=== PATIENT | male | born 1955 | race African-American/Black ===

== ENCOUNTER 2016-03-24 05:46 | Emergency (ER) | payer OTHER, MEDICAID ==
[~2016-03-24] VITALS: Ht 172.7 cm; Wt 152.0 kg
[~2016-03-24 05:46] MED LIST: ASPI-378 PO; CITA20TA3 PO; CLON05T PO; CLOP75TA41 PO; DOCU-94 PO; ENAL20TA70 PO; FUR40T PO; GAB400C PO; ISOS30TA4 PO; MEC25T PO; NITRSPR10 SL; NOR5T PO; PAR20T PO; POT10T PO; PRAV20TA3 PO; Pantoprazole Sodium Sesquihydr PO; TRAZ100T2 PO
[2016-03-24 06:32] VITALS: BP 146/94
[2016-03-24] MEDS ORDERED: NITROGLYCERIN 0.4 MG SL TAB SL ONE (06:45)
[2016-03-24] MEDS ORDERED: LORazepam 2MG/ML-1ML VIAL IV ONE (06:45)
[2016-03-24] MEDS ORDERED: ASPirin 81 mg TAB PO ONE (06:45)
[2016-03-24] MEDS ORDERED: LABETALOL HCL 5 MG/ML 4ML SYRINGE IV ONE (06:45)
[2016-03-24 07:11] LABS: Basophils # (auto) 0 uL; Basophils % (auto) 0.4 % (0.0-2.0); Eosinophils # (auto) 0.2 uL; Eosinophils % (auto) 2.1 % (0.0-7.0); Hematocrit 40.3 % (41.0-53.0); Hemoglobin 12.5 g/dL (13.5-17.5); Lymphocytes # (auto) 2.2 uL; Lymphocytes % (auto) 28.5 % (10.0-50.0); Mean Corpuscular Hemoglobin 27.6 pg (28.0-32.0); Mean Platelet Volume 10.3 fL (7.4-10.4); Monocytes # (auto) 0.6 uL; Monocytes % (auto) 7.6 % (0.0-12.0); Neutrophils # (auto) 4.6 uL; Neutrophils % (auto) 61.4 % (37.0-80.0); Platelet Count (auto) 183 10^3/uL (140-450); White Blood Cell 7.6 10^3/uL (4.4-10.8)
[2016-03-24 07:17] LABS: Albumin 3.3 g/dL (3.4-5.0); BUN/Creatinine Ratio 16.1; Calcium 8.7 mg/dL (8.5-10.1); Magnesium 2.4 mg/dL (1.6-2.6); Potassium 3.8 mmol/L (3.5-5.1)
[2016-03-24 07:24] LABS: Bilirubin, Total 0.3 mg/dL (0.2-1.0); Total Protein 7.5 g/dL (6.4-8.2)
[2016-03-24 07:41] LABS: B-Type Natriuretic Peptide 35.92 pg/mL (0-100)
[2016-03-24] MEDS ORDERED: HYDROcodone-ACET 5/325MG TAB PO ONE (07:45)
[2016-03-24 07:53] LABS: Temperature: 22.9 C (20.0-25.0)
== END 2016-03-24 09:41 | disposition left against medical advice (07) ==
LOC: ER 05:49
DX: R07.2 Precordial pain (principal); M54.9 Dorsalgia, unspecified; Z88.6 Allergy status to analgesic agent; Z79.899 Other long term (current) drug therapy; Z79.82 Long term (current) use of aspirin; F41.9 Anxiety disorder, unspecified; J45.909 Unspecified asthma, uncomplicated; J44.9 Chronic obstructive pulmonary disease, unspecified; Z86.73 Personal history of transient ischemic attack (TIA), and cerebral infarction without residual deficits; K21.9 Gastro-esophageal reflux disease without esophagitis; E78.5 Hyperlipidemia, unspecified; I25.2 Old myocardial infarction; I13.0 Hypertensive heart and chronic kidney disease with heart failure and stage 1 through stage 4 chronic kidney disease, or unspecified chronic kidney disease; N18.9 Chronic kidney disease, unspecified; I50.9 Heart failure, unspecified; E11.22 Type 2 diabetes mellitus with diabetic chronic kidney disease; F17.210 Nicotine dependence, cigarettes, uncomplicated
CPT/HCPCS: 36415; 71020; 72100; 80053; 83735; 83880; 84484; 85025; 93005; 94761; 96374; 99285; J2060

== ENCOUNTER 2016-05-07 11:06 | Observation (INO) | payer OTHER, MEDICAID ==
[~2016-05-07] VITALS: Ht 172.7 cm; Wt 154.2 kg
[2016-05-07 12:00] LABS: Basophils # (auto) 0 uL; Basophils % (auto) 0.2 % (0.0-2.0); Eosinophils # (auto) 0.1 uL; Eosinophils % (auto) 0.6 % (0.0-7.0); Hematocrit 41.5 % (41.0-53.0); Hemoglobin 13.3 g/dL (13.5-17.5); Lymphocytes # (auto) 1.7 uL; Lymphocytes % (auto) 18.2 % (10.0-50.0); Mean Corpuscular Volume 90.4 fL (80.0-100.0); Monocytes # (auto) 0.5 uL; Monocytes % (auto) 5.1 % (0.0-12.0); Neutrophils % (auto) 75.9 % (37.0-80.0); Platelet Count (auto) 214 10^3/uL (140-450); Red Cell Distribution Width 15.2 % (11.6-16.0); White Blood Cell 9.3 10^3/uL (4.4-10.8)
[2016-05-07 12:18] LABS: Partial Thromboplastin Time 25.6 sec (22.64-33.71); Prothrombin Time 10.3 sec (9.37-12.3)
[2016-05-07 12:24] LABS: Albumin 3.3 g/dL (3.4-5.0); Alkaline Phosphatase 64 U/L (45-117); Anion Gap 5 (5-15); Aspartate Aminotransferase 22 U/L (15-37); BUN/Creatinine Ratio 15.4; Bilirubin, Total 0.3 mg/dL (0.2-1.0); Blood Urea Nitrogen 16 mg/dL (7-18); Calcium 8.7 mg/dL (8.5-10.1); Carbon Dioxide 31 mmol/L (21-32); Chloride 109 mmol/L (98-107); GFR African American 93 mL/min; GFR Non-African American 77 mL/min; Glucose 99 mg/dL (74-106); Potassium 4.4 mmol/L (3.5-5.1); Sodium 145 mmol/L (136-145); Total Protein 7.8 g/dL (6.4-8.2)
[2016-05-08] MEDS ORDERED: MORPHINE SULFATE 4 MG/ML SYRG IV ONE (06:45)
[2016-05-08] MEDS ORDERED: ONDANSETRON HCL 4 MG/2 ML VIAL IV ONE (06:45)
[2016-05-08 08:28] VITALS: BP 104/32
== END 2016-05-08 07:56 | disposition home or self-care (01) | DRG 313 ==
LOC: ER 11:16 → OVERFLOW 11:17 → UNDOADMOB 11:17 → OVERFLOW 05-08 07:27 → UNDODISOB 05-08 07:56 → ER 05-08 07:56
PROVIDERS: ADMIT Emergency Medicine; ATTEND Emergency Medicine
DX: R07.89 Other chest pain (principal); I11.0 Hypertensive heart disease with heart failure; E11.9 Type 2 diabetes mellitus without complications; I50.9 Heart failure, unspecified; J44.9 Chronic obstructive pulmonary disease, unspecified; K21.9 Gastro-esophageal reflux disease without esophagitis; Z86.73 Personal history of transient ischemic attack (TIA), and cerebral infarction without residual deficits; Z83.3 Family history of diabetes mellitus; Z82.49 Family history of ischemic heart disease and other diseases of the circulatory system; F17.210 Nicotine dependence, cigarettes, uncomplicated
CPT/HCPCS: 36415; 71020; 80053; 84484; 85025; 85610; 85730; 93005; 96374; 96375; 99285; G0378; J2270; J2405

== ENCOUNTER 2016-08-06 14:07 | Emergency (ER) | payer OTHER, MEDICAID ==
[~2016-08-06] VITALS: Ht 170.2 cm; Wt 149.7 kg
[~2016-08-06 14:07] MED LIST changes: +HYDR-4663 PO; +NITR1SPR SL; -NITRSPR10 SL; -NOR5T PO
[2016-08-06] MEDS ORDERED: HYDROmorphone HCL 2 MG/ML VL IV ONE (14:45)
[2016-08-06] MEDS ORDERED: ONDANSETRON HCL 4 MG/2 ML VIAL IV ONE (14:45)
[2016-08-06 15:25] LABS: Basophils # (auto) 0 uL; Basophils % (auto) 0.3 % (0.0-2.0); CONDITION AutoValidated; Eosinophils # (auto) 0.1 uL; Eosinophils % (auto) 0.9 % (0.0-7.0); Hematocrit 43.3 % (41.0-53.0); Lymphocytes # (auto) 2.7 uL; Lymphocytes % (auto) 27.8 % (10.0-50.0); Mean Corpuscular Hemoglobin 29.4 pg (28.0-32.0); Mean Corpuscular Hgb Conc. 32.3 g/dL (32.0-36.0); Mean Corpuscular Volume 90.9 fL (80.0-100.0); Monocytes # (auto) 0.7 uL; Monocytes % (auto) 6.8 % (0.0-12.0); Neutrophils # (auto) 6.2 uL; Neutrophils % (auto) 64.2 % (37.0-80.0); Platelet Count (auto) 192 10^3/uL (140-450); Red Cell Distribution Width 14.3 % (11.6-16.0); White Blood Cell 9.6 10^3/uL (4.4-10.8)
[2016-08-06 15:46] LABS: Albumin 3.4 g/dL (3.4-5.0); BUN/Creatinine Ratio 19.2; Bilirubin, Total 0.3 mg/dL (0.2-1.0); Calcium 8.8 mg/dL (8.5-10.1); Magnesium 2.4 mg/dL (1.6-2.6); Potassium 3.9 mmol/L (3.5-5.1); Total Protein 7.7 g/dL (6.4-8.2)
[2016-08-06 15:55] LABS: B-Type Natriuretic Peptide 38.62 pg/mL (0-100)
[2016-08-06 15:59] LABS: Temperature: 23.7 C (20.0-25.0)
[2016-08-06 18:05] VITALS: BP 193/105
== END 2016-08-06 19:22 | disposition home or self-care (01) ==
LOC: EDBD 14:07 → EDUNIT# 14:07 → ER 14:16
DX: R07.89 Other chest pain (principal); I20.9 Angina pectoris, unspecified; J44.9 Chronic obstructive pulmonary disease, unspecified; I13.0 Hypertensive heart and chronic kidney disease with heart failure and stage 1 through stage 4 chronic kidney disease, or unspecified chronic kidney disease; E11.22 Type 2 diabetes mellitus with diabetic chronic kidney disease; N18.9 Chronic kidney disease, unspecified; I50.9 Heart failure, unspecified; K21.9 Gastro-esophageal reflux disease without esophagitis; F17.210 Nicotine dependence, cigarettes, uncomplicated; E78.5 Hyperlipidemia, unspecified; Z90.49 Acquired absence of other specified parts of digestive tract; Z90.89 Acquired absence of other organs; Z87.440 Personal history of urinary (tract) infections; Z95.1 Presence of aortocoronary bypass graft; Z88.8 Allergy status to other drugs, medicaments and biological substances; Z79.899 Other long term (current) drug therapy
CPT/HCPCS: 36415; 71010; 80053; 83735; 83880; 84484; 85025; 93005; 94761; 96374; 96375; 99285; J1170; J2405

== ENCOUNTER 2016-09-16 09:19 | Observation (INO) | payer OTHER, MEDICAID ==
[~2016-09-16] VITALS: Ht 172.7 cm; Wt 147.0 kg
[2016-09-16] MEDS ORDERED: SODIUM CHLORIDE 0.9% 1,000 ML IV ONE (09:41)
[2016-09-16] MEDS ORDERED: MORPHINE SULFATE 4 MG/ML SYRG IV ONE (09:45)
[2016-09-16 10:11] LABS: Basophils # (auto) 0.1 uL; Basophils % (auto) 1.4 % (0.0-2.0); CONDITION Y; Eosinophils # (auto) 0.2 uL; Eosinophils % (auto) 2.1 % (0.0-7.0); Hematocrit 41.8 % (41.0-53.0); Hemoglobin 13.6 g/dL (13.5-17.5); Lymphocytes # (auto) 2.3 uL; Lymphocytes % (auto) 29.3 % (10.0-50.0); Mean Corpuscular Hemoglobin 29.5 pg (28.0-32.0); Mean Corpuscular Hgb Conc. 32.5 g/dL (32.0-36.0); Mean Corpuscular Volume 90.8 fL (80.0-100.0); Mean Platelet Volume 10.7 fL (7.4-10.4); Monocytes # (auto) 0.3 uL; Monocytes % (auto) 3.6 % (0.0-12.0); Neutrophils % (auto) 63.6 % (37.0-80.0); Platelet Count (auto) 204 10^3/uL (140-450); Red Cell Distribution Width 14.3 % (11.6-16.0); SUSPECT SEE PRINTOUT; White Blood Cell 7.9 10^3/uL (4.4-10.8)
[2016-09-16 10:28] LABS: INR 0.94 (0.9-1.15); Partial Thromboplastin Time 23.8 sec (22.64-33.71); Prothrombin Time 10.2 sec (9.37-12.3)
[2016-09-16 10:35] LABS: Alkaline Phosphatase 69 U/L (45-117); Anion Gap 7 (5-15); Aspartate Aminotransferase 12 U/L (15-37); BUN/Creatinine Ratio 10.8; Bilirubin, Total 0.2 mg/dL (0.2-1.0); Blood Urea Nitrogen 12 mg/dL (7-18); Calcium 8.5 mg/dL (8.5-10.1); Carbon Dioxide 24 mmol/L (21-32); Chloride 110 mmol/L (98-107); GFR African American 86 mL/min; GFR Non-African American 71 mL/min; Glucose 123 mg/dL (74-106); Potassium 4.1 mmol/L (3.5-5.1); Sodium 141 mmol/L (136-145); Total Protein 7.1 g/dL (6.4-8.2)
[2016-09-16 10:37] LABS: Giant Platelets Few; Platelet Estimate Adequate
[2016-09-16] MEDS ORDERED: MORPHINE SULF INJ 2 MG/ML SYRINGE 1ML IV ONE (14:15)
[2016-09-16 15:45] VITALS: BP 153/71
== END 2016-09-16 16:02 | disposition home or self-care (01) | DRG 303 ==
LOC: ER 09:19 → EDBD 09:19 → OVERFLOW 09:43 → ER 16:02
PROVIDERS: ADMIT Emergency Medicine; ATTEND Emergency Medicine
DX: I25.119 Atherosclerotic heart disease of native coronary artery with unspecified angina pectoris (principal); K21.9 Gastro-esophageal reflux disease without esophagitis; J44.9 Chronic obstructive pulmonary disease, unspecified; I50.9 Heart failure, unspecified; I11.0 Hypertensive heart disease with heart failure; E11.9 Type 2 diabetes mellitus without complications; F41.9 Anxiety disorder, unspecified; F32.9 Major depressive disorder, single episode, unspecified; F17.210 Nicotine dependence, cigarettes, uncomplicated; I25.2 Old myocardial infarction; E66.01 Morbid (severe) obesity due to excess calories; E78.5 Hyperlipidemia, unspecified; Z86.73 Personal history of transient ischemic attack (TIA), and cerebral infarction without residual deficits; Z79.899 Other long term (current) drug therapy; Z79.82 Long term (current) use of aspirin; Z87.440 Personal history of urinary (tract) infections; Z90.49 Acquired absence of other specified parts of digestive tract; Z98.61 Coronary angioplasty status; Z83.3 Family history of diabetes mellitus; Z82.49 Family history of ischemic heart disease and other diseases of the circulatory system
CPT/HCPCS: 36415; 71010; 80053; 83735; 84443; 84484; 85025; 85610; 85730; 93005; 96374; 96376; 99285; G0378; J2270; J7030

== ENCOUNTER 2016-10-01 13:40 | Emergency (ER) | payer OTHER, MEDICAID ==
[~2016-10-01] VITALS: Ht 172.7 cm; Wt 151.5 kg
[2016-10-01 14:08] LABS: Basophils # (auto) 0 uL; Basophils % (auto) 0.2 % (0.0-2.0); CONDITION Y; Eosinophils # (auto) 0 uL; Eosinophils % (auto) 0.6 % (0.0-7.0); Hematocrit 41.7 % (41.0-53.0); Hemoglobin 13.7 g/dL (13.5-17.5); Lymphocytes # (auto) 2.1 uL; Lymphocytes % (auto) 25.8 % (10.0-50.0); Mean Corpuscular Hgb Conc. 32.9 g/dL (32.0-36.0); Mean Corpuscular Volume 91.1 fL (80.0-100.0); Monocytes # (auto) 0.6 uL; Monocytes % (auto) 7.5 % (0.0-12.0); Neutrophils # (auto) 5.5 uL; Neutrophils % (auto) 65.9 % (37.0-80.0); Platelet Count (auto) 190 10^3/uL (140-450); Red Cell Distribution Width 14.8 % (11.6-16.0); White Blood Cell 8.3 10^3/uL (4.4-10.8)
[2016-10-01 14:33] LABS: Albumin 3.2 g/dL (3.4-5.0); Anion Gap 8 (5-15); Aspartate Aminotransferase 12 U/L (15-37); BUN/Creatinine Ratio 13.6; Blood Urea Nitrogen 17 mg/dL (7-18); Calcium 8.5 mg/dL (8.5-10.1); Carbon Dioxide 23 mmol/L (21-32); Chloride 114 mmol/L (98-107); GFR African American 75 mL/min; GFR Non-African American 62 mL/min; Glucose 104 mg/dL (74-106); Magnesium 2.2 mg/dL (1.6-2.6); Potassium 3.8 mmol/L (3.5-5.1); Sodium 145 mmol/L (136-145)
[2016-10-01 14:38] LABS: Alkaline Phosphatase 60 U/L (45-117); Bilirubin, Total 0.4 mg/dL (0.2-1.0); Total Protein 7.1 g/dL (6.4-8.2)
[2016-10-01 16:14] VITALS: BP 118/74
[2016-10-01] MEDS ORDERED: SODIUM CHLORIDE 0.9% 1,000 ML IV ONE (17:02)
[2016-10-01] MEDS ORDERED: PROMETHAZINE HCL 25 MG/ML 1ML IV PRN (17:15)
[2016-10-01] MEDS ORDERED: NALBUPHINE HCL 10 MG/1ml INJECTION IV ONE (17:15)
[2016-10-01 17:51] LABS: Magnesium 2.3 mg/dL (1.6-2.6)
== END 2016-10-01 20:02 | disposition home or self-care (01) ==
LOC: ER 13:40
DX: I25.119 Atherosclerotic heart disease of native coronary artery with unspecified angina pectoris (principal); R07.9 Chest pain, unspecified; I10 Essential (primary) hypertension; E44.1 Mild protein-calorie malnutrition; Z68.43 Body mass index [BMI] 50.0-59.9, adult; I25.2 Old myocardial infarction; Z86.73 Personal history of transient ischemic attack (TIA), and cerebral infarction without residual deficits; E11.22 Type 2 diabetes mellitus with diabetic chronic kidney disease; I13.0 Hypertensive heart and chronic kidney disease with heart failure and stage 1 through stage 4 chronic kidney disease, or unspecified chronic kidney disease; I50.9 Heart failure, unspecified; N18.9 Chronic kidney disease, unspecified; F17.210 Nicotine dependence, cigarettes, uncomplicated; K21.9 Gastro-esophageal reflux disease without esophagitis; E78.5 Hyperlipidemia, unspecified; Z87.440 Personal history of urinary (tract) infections; Z90.49 Acquired absence of other specified parts of digestive tract
CPT/HCPCS: 36415; 71020; 74176; 80053; 83690; 83735; 84443; 84484; 85025; 93005; 94761; 96361; 96374; 96375; 99285; J2300; J2550; J7030

== ENCOUNTER 2017-01-28 19:52 | Emergency (ER) | payer OTHER, MEDICAID ==
[~2017-01-28] VITALS: Ht 172.7 cm; Wt 149.7 kg
[~2017-01-28 19:52] MED LIST changes: -HYDR-4663 PO; +HYDR-4683 PO
[2017-01-28 20:36] LABS: Basophils # (auto) 0 uL; Basophils % (auto) 0.5 % (0.0-2.0); Eosinophils # (auto) 0.2 uL; Eosinophils % (auto) 2.2 % (0.0-7.0); Hematocrit 43.7 % (41.0-53.0); Hemoglobin 14.3 g/dL (13.5-17.5); Lymphocytes # (auto) 2.1 uL; Lymphocytes % (auto) 26.4 % (10.0-50.0); Mean Corpuscular Hemoglobin 29.5 pg (28.0-32.0); Mean Corpuscular Hgb Conc. 32.6 g/dL (32.0-36.0); Mean Corpuscular Volume 90.5 fL (80.0-100.0); Mean Platelet Volume 9.2 fL (6.9-10.8); Monocytes # (auto) 0.6 uL; Monocytes % (auto) 7.4 % (0.0-12.0); Neutrophils % (auto) 63.5 % (37.0-80.0); Nucleated Red Blood Cells % 0.1 %; Platelet Count (auto) 195 10^3/uL (140-450); Red Cell Distribution Width 14.6 % (11.8-14.3); White Blood Cell 7.8 10^3/uL (4.4-10.8)
[2017-01-28 20:51] LABS: Albumin 3.2 g/dL (3.4-5.0); Anion Gap 7 (5-15); Aspartate Aminotransferase 15 U/L (15-37); BUN/Creatinine Ratio 20.9; Blood Urea Nitrogen 19 mg/dL (7-18); Calcium 8.9 mg/dL (8.5-10.1); Carbon Dioxide 23 mmol/L (21-32); Chloride 108 mmol/L (98-107); GFR African American 108 mL/min; GFR Non-African American 89 mL/min; Glucose 92 mg/dL (74-106); Magnesium 2.4 mg/dL (1.6-2.6); Potassium 3.9 mmol/L (3.5-5.1); Sodium 138 mmol/L (136-145)
[2017-01-28 20:56] LABS: Alkaline Phosphatase 64 U/L (45-117); Bilirubin, Total 0.3 mg/dL (0.2-1.0); Total Protein 7.6 g/dL (6.4-8.2)
[2017-01-28] MEDS ORDERED: cloNIDine HCL 0.1 MG TAB PO ONE (21:15)
[2017-01-28] MEDS ORDERED: LORazepam 0.5 MG TAB PO ONE (21:15)
[2017-01-28 22:02] LABS: B-Type Natriuretic Peptide 30.64 pg/mL (0-100)
[2017-01-28] MEDS ORDERED: NALBUPHINE HCL 10 MG/1ml INJECTION IV ONE (22:15)
[2017-01-28] MEDS ORDERED: FUROSEMIDE 40 MG/4 ML VIAL IV ONE (23:45)
[2017-01-29 03:42] VITALS: BP 162/90
== END 2017-01-29 03:44 | disposition home or self-care (01) ==
LOC: ER 19:52 → EDBD 19:52 → ER 01-29 03:43
DX: R06.02 Shortness of breath (principal); I25.810 Atherosclerosis of coronary artery bypass graft(s) without angina pectoris; E11.65 Type 2 diabetes mellitus with hyperglycemia; I13.0 Hypertensive heart and chronic kidney disease with heart failure and stage 1 through stage 4 chronic kidney disease, or unspecified chronic kidney disease; E11.22 Type 2 diabetes mellitus with diabetic chronic kidney disease; N18.9 Chronic kidney disease, unspecified; I50.9 Heart failure, unspecified; J44.9 Chronic obstructive pulmonary disease, unspecified; K21.9 Gastro-esophageal reflux disease without esophagitis; E78.5 Hyperlipidemia, unspecified; E78.00 Pure hypercholesterolemia, unspecified; G89.29 Other chronic pain; M54.9 Dorsalgia, unspecified; I25.2 Old myocardial infarction; F17.210 Nicotine dependence, cigarettes, uncomplicated; Z79.82 Long term (current) use of aspirin; Z86.73 Personal history of transient ischemic attack (TIA), and cerebral infarction without residual deficits; Z82.49 Family history of ischemic heart disease and other diseases of the circulatory system; Z83.3 Family history of diabetes mellitus
CPT/HCPCS: 36415; 70450; 71010; 71250; 80053; 83735; 83880; 84484; 85025; 93005; 96374; 96375; 99285; J1940; J2300

== ENCOUNTER 2017-03-21 11:06 | Emergency (ER) | payer OTHER, MEDICAID ==
[~2017-03-21] VITALS: Ht 172.7 cm; Wt 149.7 kg
[2017-03-21 11:14] VITALS: BP 159/82
[2017-03-21 12:35] LABS: Albumin 3.5 g/dL (3.4-5.0); BUN/Creatinine Ratio 14.7; Bilirubin, Total 0.5 mg/dL (0.2-1.0); Calcium 8.8 mg/dL (8.5-10.1); Magnesium 2.5 mg/dL (1.6-2.6); Potassium 3.6 mmol/L (3.5-5.1); Total Protein 8.2 g/dL (6.4-8.2)
[2017-03-21 13:58] LABS: Basophils # (auto) 0.1 uL; Basophils % (auto) 0.9 % (0.0-2.0); Eosinophils # (auto) 0.1 uL; Eosinophils % (auto) 0.5 % (0.0-7.0); Hematocrit 45.3 % (41.0-53.0); Hemoglobin 14.7 g/dL (13.5-17.5); Lymphocytes # (auto) 2.8 uL; Lymphocytes % (auto) 27.3 % (10.0-50.0); Mean Corpuscular Hemoglobin 28.9 pg (28.0-32.0); Mean Corpuscular Hgb Conc. 32.6 g/dL (32.0-36.0); Mean Corpuscular Volume 88.7 fL (80.0-100.0); Monocytes # (auto) 0.6 uL; Monocytes % (auto) 5.7 % (0.0-12.0); Neutrophils # (auto) 6.6 uL; Neutrophils % (auto) 65.6 % (37.0-80.0); Platelet Count (auto) 214 10^3/uL (140-450); Red Blood Cells 5.11 10^6/uL (4.5-5.90); Red Cell Distribution Width 14.2 % (11.8-14.3); White Blood Cell 10.1 10^3/uL (4.4-10.8)
== END 2017-03-21 14:02 | disposition left against medical advice (07) ==
LOC: EDBD 11:06 → ER 11:06
DX: R07.89 Other chest pain (principal); Z53.21 Procedure and treatment not carried out due to patient leaving prior to being seen by health care provider
CPT/HCPCS: 36415; 71046; 80053; 83735; 84484; 85025; 93005

== ENCOUNTER 2017-10-03 02:59 | Inpatient (IN) | payer OTHER ==
[~2017-10-03] VITALS: Ht 172.7 cm; Wt 143.6 kg
[~2017-10-03 02:59] MED LIST changes: +ASPI-231 PO; +CLOP75TA28 PO; +GABA-339 PO; +ISOS20TA49 PO; +TRAZ150T79 PO
[2017-10-03] MEDS ORDERED: FURO40TA4 PO (03:57)
[2017-10-03] MEDS ORDERED: ATOR1TAB PO (03:57)
[2017-10-03] MEDS ORDERED: HYDR-531 PO (03:57)
[2017-10-03] MEDS ORDERED: ISOS30TA4 PO (03:57)
[2017-10-03] MEDS ORDERED: BUPR-81 PO (03:57)
[2017-10-03] MEDS ORDERED: NITR0.4S29 SL (03:57)
[2017-10-03] MEDS ORDERED: CLOP75TA41 PO (03:57)
[2017-10-03] MEDS ORDERED: ENAL20TA70 PO (03:57)
[2017-10-03] MEDS ORDERED: METO25TA62 PO (03:57)
[2017-10-03] MEDS ORDERED: ASPI325T4 PO (03:57)
[2017-10-03] MEDS ORDERED: GABA800T97 PO (03:57)
[2017-10-03] MEDS ORDERED: TRAZ100T2 PO (03:57)
[2017-10-03] MEDS ORDERED: [UNRECOGNIZED DRUG - CODE] PO (03:57)
[2017-10-03 04:00] VITALS: BP 160/90
[2017-10-03] MEDS ORDERED: ACETAMINOPHEN 325 MG TAB PO PRN (06:00)
[2017-10-03] MEDS ORDERED: ONDANSETRON HCL 4 MG/2 ML VIAL IV PRN (06:00)
[2017-10-03] MEDS ORDERED: NITROGLYCERIN 0.4 MG SL TAB SL PRN (06:00)
[2017-10-03] MEDS ORDERED: TEMAZEPAM 15 MG CAP PO PRN (06:00)
[2017-10-03 06:08] LABS: Basophils # (auto) 0.1 uL; Basophils % (auto) 0.7 % (0.0-2.0); Eosinophils # (auto) 0.1 uL; Eosinophils % (auto) 0.6 % (0.0-7.0); Hematocrit 43.4 % (41.0-53.0); Hemoglobin 14.6 g/dL (13.5-17.5); Lymphocytes # (auto) 1.7 uL; Lymphocytes % (auto) 18.9 % (10.0-50.0); Mean Corpuscular Hemoglobin 29.8 pg (28.0-32.0); Mean Corpuscular Hgb Conc. 33.6 g/dL (32.0-36.0); Mean Corpuscular Volume 88.6 fL (80.0-100.0); Monocytes # (auto) 0.9 uL; Monocytes % (auto) 9.7 % (0.0-12.0); Neutrophils # (auto) 6.4 uL; Neutrophils % (auto) 70.1 % (37.0-80.0); Platelet Count (auto) 183 10^3/uL (140-450); White Blood Cell 9.1 10^3/uL (4.4-10.8)
[2017-10-03 06:19] LABS: Albumin 3.3 g/dL (3.4-5.0); Calcium 8.6 mg/dL (8.5-10.1); Potassium 3.3 mmol/L (3.5-5.1)
[2017-10-03 06:22] LABS: BUN/Creatinine Ratio 13.2
[2017-10-03 06:27] LABS: Bilirubin, Total 0.7 mg/dL (0.2-1.0); Total Protein 7.8 g/dL (6.4-8.2)
[2017-10-03] MEDS: FUROSEMIDE 40 MG TAB PO SCH ×2 (06:30→17:18)
[2017-10-03] MEDS: MORPHINE SULF INJ 2 MG/ML SYRINGE 1ML IV PRN ×3 (08:34→22:15)
[2017-10-03 08:56] LABS: Alcohol, Urine < 3.0 mg/dL (0-5); Amphetamine Screen, Urine NEGATIVE (NEGATIVE); Barbiturate Scree,Urine NEGATIVE (NEGATIVE); Benzodiazephine Screen, Urine NEGATIVE (NEGATIVE); Cannabinoid Screen, Urine NEGATIVE (NEGATIVE); Cocaine Screen, Urine NEGATIVE (NEGATIVE); Opiate Scree,Urine POSITIVE (NEGATIVE); Phencyclidine Screen, Urine NEGATIVE (NEGATIVE)
[2017-10-03 09:07] VITALS: BP 161/101
[2017-10-03] MEDS: ASPirin 81 mg TAB PO SCH (10:09)
[2017-10-03] MEDS: ENALAPRIL MALEATE 10 MG TAB PO SCH ×2 (10:09→21:09)
[2017-10-03] MEDS: HCTZ 25 MG TAB PO SCH (10:10)
[2017-10-03] MEDS: CLOPIDOGREL BISULFATE 75 MG TAB PO SCH (10:10)
[2017-10-03] MEDS: PARoxetine 20 MG TAB PO SCH (10:10)
[2017-10-03] MEDS: ISOSORBIDE MONONITRATE 60 MG TAB PO SCH (10:11)
[2017-10-03] MEDS ORDERED: POTASSIUM CHL 20 Meq TABLET PO ONE (12:15)
[2017-10-03 13:00] VITALS: BP 146/80
[2017-10-03] MEDS: HYDROcodone-ACET 5/325MG TAB PO PRN (17:26)
[2017-10-03 17:30] VITALS: BP 120/70
[2017-10-03] MEDS: PRAVASTATIN SODIUM 20 MG TAB PO SCH (21:09)
[2017-10-03 21:40] VITALS: BP 121/53
[2017-10-04 04:56] VITALS: BP 141/80
[2017-10-04] MEDS: FUROSEMIDE 40 MG TAB PO SCH (06:09)
[2017-10-04] MEDS: HYDROcodone-ACET 5/325MG TAB PO PRN (06:09)
[2017-10-04 07:54] LABS: Basophils # (auto) 0.1 uL; Basophils % (auto) 0.7 % (0.0-2.0); Eosinophils # (auto) 0.1 uL; Eosinophils % (auto) 1.7 % (0.0-7.0); Hematocrit 44.4 % (41.0-53.0); Hemoglobin 14.7 g/dL (13.5-17.5); Lymphocytes # (auto) 2.2 uL; Lymphocytes % (auto) 28.5 % (10.0-50.0); Mean Corpuscular Hemoglobin 29.5 pg (28.0-32.0); Mean Corpuscular Hgb Conc. 33.2 g/dL (32.0-36.0); Mean Corpuscular Volume 88.9 fL (80.0-100.0); Monocytes # (auto) 0.7 uL; Monocytes % (auto) 9.1 % (0.0-12.0); Neutrophils # (auto) 4.6 uL; Nucleated Red Blood Cells % 0.1 %; Platelet Count (auto) 181 10^3/uL (140-450); Red Blood Cells 4.99 10^6/uL (4.5-5.90); Red Cell Distribution Width 15.2 % (11.8-14.3); White Blood Cell 7.7 10^3/uL (4.4-10.8)
[2017-10-04 08:00] VITALS: BP_SYST 141; BP_SYST 155; BP_DIAS 79; BP_DIAS 80
[2017-10-04 08:05] LABS: INR 0.96 (0.9-1.15); Partial Thromboplastin Time 24.6 sec (23.78-33.04); Prothrombin Time 10.3 sec (9.27-12.13)
[2017-10-04 08:30] LABS: Alanine Aminotransferase 23 U/L (16-61); Albumin 3.5 g/dL (3.4-5.0); Alkaline Phosphatase 69 U/L (45-117); Anion Gap 12 (5-15); Aspartate Aminotransferase 16 U/L (15-37); BUN/Creatinine Ratio 16.2; Bilirubin, Total 0.6 mg/dL (0.2-1.0); Blood Urea Nitrogen 22 mg/dL (7-18); Calcium 8.7 mg/dL (8.5-10.1); Carbon Dioxide 24 mmol/L (21-32); Chloride 104 mmol/L (98-107); GFR African American 68 mL/min; GFR Non-African American 56 mL/min; Glucose 89 mg/dL (74-106); Potassium 3.4 mmol/L (3.5-5.1); Sodium 140 mmol/L (136-145); Total Protein 8.2 g/dL (6.4-8.2)
[2017-10-04] MEDS: HCTZ 25 MG TAB PO SCH (09:15)
[2017-10-04] MEDS: PARoxetine 20 MG TAB PO SCH (09:15)
[2017-10-04] MEDS: POTASSIUM CHL 20 Meq TABLET PO SCH (09:15)
[2017-10-04] MEDS: ASPirin 81 mg TAB PO SCH (09:15)
[2017-10-04] MEDS: ISOSORBIDE MONONITRATE 60 MG TAB PO SCH (09:15)
[2017-10-04] MEDS: CLOPIDOGREL BISULFATE 75 MG TAB PO SCH (09:15)
[2017-10-04] MEDS: ENALAPRIL MALEATE 10 MG TAB PO SCH ×2 (09:16→21:35)
[2017-10-04] MEDS: MORPHINE SULFATE 4 MG/ML SYR/VIAL IV PRN ×3 (10:36→21:35)
[2017-10-04 12:00] VITALS: BP 123/61
[2017-10-04] MEDS ORDERED: SODIUM CHL 0.9% 0 ML ONE (15:07)
[2017-10-04] MEDS ORDERED: MIDAZOLAM HCL 1MG/1ML-2 ML VIAL ONE (15:07)
[2017-10-04] MEDS ORDERED: ANGIOMAX 250 MG VIAL IV ONE (15:07)
[2017-10-04] MEDS ORDERED: fentaNYL CITRATE 100 MCG/2 ML VL ONE (15:07)
[2017-10-04] MEDS ORDERED: LIDOCAINE 2%HCL (LOCAL ANESTH.) INJ 10ml MDV ONE ×2 (15:08→15:19)
[2017-10-04] MEDS ORDERED: IODIXANOL 320MG/ML 100ML BTL IV ONE (15:14)
[2017-10-04] MEDS ORDERED: NITROGLYCERIN 0.4MG/DOSE SPRAY 4.9GM ONE (15:45)
[2017-10-04] MEDS: PRAVASTATIN SODIUM 20 MG TAB PO SCH (21:35)
[2017-10-04 21:55] VITALS: BP 128/65
[2017-10-05] VITALS (7 sets, daily range): BP systolic 121–140; BP diastolic 63–80
[2017-10-05] MEDS: MORPHINE SULFATE 4 MG/ML SYR/VIAL IV PRN ×6 (02:40→23:44)
[2017-10-05] MEDS: FUROSEMIDE 40 MG TAB PO SCH ×3 (05:32→18:14)
[2017-10-05] MEDS: HCTZ 25 MG TAB PO SCH (10:02)
[2017-10-05] MEDS: PARoxetine 20 MG TAB PO SCH (10:02)
[2017-10-05] MEDS: POTASSIUM CHL 20 Meq TABLET PO SCH (10:02)
[2017-10-05] MEDS: ASPirin 81 mg TAB PO SCH (10:02)
[2017-10-05] MEDS: ISOSORBIDE MONONITRATE 60 MG TAB PO SCH (10:02)
[2017-10-05] MEDS: ENALAPRIL MALEATE 10 MG TAB PO SCH ×2 (10:03→21:45)
[2017-10-05] MEDS: CLOPIDOGREL BISULFATE 75 MG TAB PO SCH (10:03)
[2017-10-05] MEDS: HYDROcodone-ACET 5/325MG TAB PO PRN (18:07)
[2017-10-05] MEDS: PRAVASTATIN SODIUM 20 MG TAB PO SCH (21:44)
[2017-10-06] MEDS: MORPHINE SULFATE 4 MG/ML SYR/VIAL IV PRN ×2 (04:57→10:19)
[2017-10-06 05:00] VITALS: BP 116/68
[2017-10-06] MEDS: FUROSEMIDE 40 MG TAB PO SCH (05:31)
[2017-10-06 08:00] VITALS: BP 116/72
[2017-10-06] MEDS: POTASSIUM CHL 20 Meq TABLET PO SCH (10:20)
[2017-10-06] MEDS: ASPirin 81 mg TAB PO SCH (10:20)
[2017-10-06] MEDS: PARoxetine 20 MG TAB PO SCH (10:20)
[2017-10-06] MEDS: CLOPIDOGREL BISULFATE 75 MG TAB PO SCH (10:20)
[2017-10-06] MEDS: ISOSORBIDE MONONITRATE 60 MG TAB PO SCH (10:20)
[2017-10-06] MEDS: HCTZ 25 MG TAB PO SCH (10:21)
[2017-10-06] MEDS: ENALAPRIL MALEATE 10 MG TAB PO SCH (10:24)
== END 2017-10-06 13:10 | disposition home or self-care (01) | DRG 286 ==
LOC: TELE-WESTW 02:59
PROVIDERS: ADMIT Nurse Practitioner; ATTEND Family Medicine
PROC: 4A023N7 Measurement of Cardiac Sampling and Pressure, Left Heart, Percutaneous Approach (ICD-10-PCS; principal; 2017-10-04)
PROC: B2111ZZ Fluoroscopy of Multiple Coronary Arteries using Low Osmolar Contrast (ICD-10-PCS; 2017-10-04)
PROC: B2151ZZ Fluoroscopy of Left Heart using Low Osmolar Contrast (ICD-10-PCS; 2017-10-04)
DX: I13.0 Hypertensive heart and chronic kidney disease with heart failure and stage 1 through stage 4 chronic kidney disease, or unspecified chronic kidney disease (principal); I50.43 Acute on chronic combined systolic (congestive) and diastolic (congestive) heart failure; F11.20 Opioid dependence, uncomplicated; Z68.42 Body mass index [BMI] 45.0-49.9, adult; R07.9 Chest pain, unspecified; E11.22 Type 2 diabetes mellitus with diabetic chronic kidney disease; E66.01 Morbid (severe) obesity due to excess calories; E78.00 Pure hypercholesterolemia, unspecified; F32.9 Major depressive disorder, single episode, unspecified; I25.2 Old myocardial infarction; I25.10 Atherosclerotic heart disease of native coronary artery without angina pectoris; I50.9 Heart failure, unspecified; I70.0 Atherosclerosis of aorta; J44.9 Chronic obstructive pulmonary disease, unspecified; N18.9 Chronic kidney disease, unspecified; Z81.8 Family history of other mental and behavioral disorders; Z82.3 Family history of stroke; Z86.73 Personal history of transient ischemic attack (TIA), and cerebral infarction without residual deficits; Z82.49 Family history of ischemic heart disease and other diseases of the circulatory system; Z95.5 Presence of coronary angioplasty implant and graft; Z90.49 Acquired absence of other specified parts of digestive tract; Z88.8 Allergy status to other drugs, medicaments and biological substances; Z81.1 Family history of alcohol abuse and dependence; Z79.82 Long term (current) use of aspirin; Z79.899 Other long term (current) drug therapy; Z83.1 Family history of other infectious and parasitic diseases
CPT/HCPCS: 36415; 71045; 80053; 80307; 83880; 84484; 85025; 85379; 85610; 85730; 86850; 86900; 86901; 87081; 93005; 93306; 93458; 99152; J2001; J2250; Q9967

== ENCOUNTER 2017-10-08 08:50 | Emergency (ER) | payer OTHER ==
[~2017-10-08] VITALS: Ht 172.7 cm; Wt 145.1 kg
[~2017-10-08 08:50] MED LIST changes: +ASPI325T4 PO; +ATOR1TAB PO; +BUPR-81 PO; +FURO40TA4 PO; -GABA-339 PO; +GABA800T97 PO; +HYDR-531 PO; +METO25TA62 PO; +NITR0.4S29 SL; +[UNRECOGNIZED DRUG - CODE] PO
[2017-10-08] MEDS ORDERED: SODIUM CHLORIDE 0.9% 1,000 ML IV ONE (09:49)
[2017-10-08] MEDS ORDERED: ASPirin 81 mg TAB PO ONE (10:00)
[2017-10-08] MEDS ORDERED: MORPHINE SULFATE 4 MG/ML SYR/VIAL IV ONE (10:00)
[2017-10-08] MEDS ORDERED: METOCLOPRAMIDE HCL 5MG/ml INJ 2ml VIAL IV ONE (10:00)
[2017-10-08 10:47] LABS: Basophils # (auto) 0 uL; Basophils % (auto) 0.6 % (0.0-2.0); Eosinophils # (auto) 0 uL; Eosinophils % (auto) 0.4 % (0.0-7.0); Hemoglobin 15.5 g/dL (13.5-17.5); Lymphocytes # (auto) 1.7 uL; Lymphocytes % (auto) 21.8 % (10.0-50.0); Mean Corpuscular Hemoglobin 29.5 pg (28.0-32.0); Mean Corpuscular Volume 89.4 fL (80.0-100.0); Monocytes # (auto) 0.7 uL; Monocytes % (auto) 8.7 % (0.0-12.0); Neutrophils # (auto) 5.4 uL; Neutrophils % (auto) 68.5 % (37.0-80.0); Nucleated Red Blood Cells % 0.1 %; Platelet Count (auto) 191 10^3/uL (140-450); Red Blood Cells 5.25 10^6/uL (4.5-5.90); Red Cell Distribution Width 15.2 % (11.8-14.3); White Blood Cell 7.9 10^3/uL (4.4-10.8)
[2017-10-08 11:11] LABS: Alanine Aminotransferase 20 U/L (16-61); Albumin 3.6 g/dL (3.4-5.0); Alkaline Phosphatase 70 U/L (45-117); Anion Gap 12 (5-15); Aspartate Aminotransferase 15 U/L (15-37); Bilirubin, Total 0.8 mg/dL (0.2-1.0); Blood Urea Nitrogen 20 mg/dL (7-18); Calcium 9.2 mg/dL (8.5-10.1); Carbon Dioxide 20 mmol/L (21-32); Chloride 110 mmol/L (98-107); GFR African American 75 mL/min; GFR Non-African American 62 mL/min; Glucose 102 mg/dL (74-106); Magnesium 2.5 mg/dL (1.6-2.6); Potassium 3.6 mmol/L (3.5-5.1); Sodium 142 mmol/L (136-145); Total Protein 8.5 g/dL (6.4-8.2)
[2017-10-08 13:09] VITALS: BP 137/57
== END 2017-10-08 13:11 | disposition home or self-care (01) ==
LOC: EDBD 08:50 → ER 08:52
DX: R07.89 Other chest pain (principal); J44.9 Chronic obstructive pulmonary disease, unspecified; E11.9 Type 2 diabetes mellitus without complications; K21.9 Gastro-esophageal reflux disease without esophagitis; E78.5 Hyperlipidemia, unspecified; I10 Essential (primary) hypertension; E66.01 Morbid (severe) obesity due to excess calories; I25.2 Old myocardial infarction; F17.210 Nicotine dependence, cigarettes, uncomplicated; R11.10 Vomiting, unspecified; Z76.5 Malingerer [conscious simulation]; Z88.6 Allergy status to analgesic agent; Z79.82 Long term (current) use of aspirin; Z79.899 Other long term (current) drug therapy; Z86.73 Personal history of transient ischemic attack (TIA), and cerebral infarction without residual deficits; Z90.49 Acquired absence of other specified parts of digestive tract; Z98.61 Coronary angioplasty status; Z68.42 Body mass index [BMI] 45.0-49.9, adult
CPT/HCPCS: 36415; 71045; 80053; 83735; 83880; 84484; 85025; 93005; 94761; 96361; 96374; 96375; 99285; J2270; J2765

== ENCOUNTER 2017-11-04 09:19 | Inpatient (IN) | payer OTHER ==
[~2017-11-04] VITALS: Ht 172.7 cm; Wt 72.4 kg
[2017-11-04 09:58] LABS: Basophils # (auto) 0.1 uL; Basophils % (auto) 0.8 % (0.0-2.0); Eosinophils # (auto) 0 uL; Eosinophils % (auto) 0.6 % (0.0-7.0); Hematocrit 44.4 % (41.0-53.0); Hemoglobin 14.2 g/dL (13.5-17.5); Lymphocytes # (auto) 1.7 uL; Lymphocytes % (auto) 25.8 % (10.0-50.0); Mean Corpuscular Hgb Conc. 32.1 g/dL (32.0-36.0); Mean Corpuscular Volume 90.4 fL (80.0-100.0); Monocytes # (auto) 0.5 uL; Monocytes % (auto) 6.9 % (0.0-12.0); Neutrophils # (auto) 4.4 uL; Neutrophils % (auto) 65.9 % (37.0-80.0); Platelet Count (auto) 209 10^3/uL (140-450); Red Blood Cells 4.91 10^6/uL (4.5-5.90); Red Cell Distribution Width 14.5 % (11.8-14.3); White Blood Cell 6.7 10^3/uL (4.4-10.8)
[2017-11-04 10:11] LABS: Albumin 3.2 g/dL (3.4-5.0); Anion Gap 9 (5-15); Blood Urea Nitrogen 11 mg/dL (7-18); Calcium 8.4 mg/dL (8.5-10.1); Carbon Dioxide 24 mmol/L (21-32); Chloride 109 mmol/L (98-107); Glucose 111 mg/dL (74-106); Magnesium 2.1 mg/dL (1.6-2.6); Potassium 3.7 mmol/L (3.5-5.1); Sodium 142 mmol/L (136-145)
[2017-11-04 10:13] LABS: Alanine Aminotransferase 18 U/L (16-61); Aspartate Aminotransferase 12 U/L (15-37); GFR African American 87 mL/min; GFR Non-African American 72 mL/min
[2017-11-04] MEDS ORDERED: SODIUM CHLORIDE 0.9% 1,000 ML IV ONE (10:13)
[2017-11-04] MEDS ORDERED: MORPHINE SULFATE 4 MG/ML SYR/VIAL IV ONE (10:15)
[2017-11-04] MEDS ORDERED: FUROSEMIDE 20 MG/2 ML VIAL IV ONE (10:15)
[2017-11-04] MEDS ORDERED: ONDANSETRON HCL 4 MG/2 ML VIAL IV ONE (10:15)
[2017-11-04] MEDS ORDERED: SPIRONOLACTONE 25 MG TAB PO ONE (10:15)
[2017-11-04 10:30] LABS: Alkaline Phosphatase 64 U/L (45-117); Bilirubin, Total 0.4 mg/dL (0.2-1.0); Total Protein 7.8 g/dL (6.4-8.2)
[2017-11-04 12:42] LABS: Urine Bacteria NONE SEEN /hpf (None Seen); Urine Blood Negative /uL (Negative); Urine Mucus FEW (None Seen); Urine Specific Gravity 1.013 (1.001-1.035); Urine WBC 1 /hpf (0 - 3)
[2017-11-04] MEDS ORDERED: MORPHINE SULF INJ 2 MG/ML SYRINGE 1ML IV PRN (13:30)
[2017-11-04] MEDS ORDERED: LACTULOSE 20Gm/30ML SOLN PO PRN (13:30)
[2017-11-04] MEDS ORDERED: TEMAZEPAM 15 MG CAP PO PRN (13:30)
[2017-11-04] MEDS ORDERED: ACETAMINOPHEN 500 MG TAB PO PRN (13:30)
[2017-11-04] MEDS ORDERED: DEXTROSE (50%) 50ML SYRG IV PRN (13:30)
[2017-11-04] MEDS ORDERED: NITROGLYCERIN 0.4 MG SL TAB SL PRN (13:30)
[2017-11-04] MEDS: DOCUSATE SOD 100 MG CAP PO SCH ×2 (13:57→21:59)
[2017-11-04] MEDS: FUROSEMIDE 40 MG TAB PO SCH ×2 (13:58→17:05)
[2017-11-04] MEDS: traZODone HCL 50 MG TAB PO SCH ×2 (13:58→17:10)
[2017-11-04] MEDS: GABAPENTIN 400 MG CAP PO SCH ×2 (13:58→22:00)
[2017-11-04] MEDS: ISOSORBIDE MONONITRATE 60 MG TAB PO SCH (13:58)
[2017-11-04] MEDS ORDERED: PANTOPRAZOLE 40 MG TAB PO ONE (14:00)
[2017-11-04] MEDS ORDERED: GABAPENTIN 400 MG CAP PO ONE (14:00)
[2017-11-04] MEDS ORDERED: CLOPIDOGREL BISULFATE 75 MG TAB PO ONE (14:00)
[2017-11-04] MEDS ORDERED: POTASSIUM CHL 10 Meq TABLET PO ONE (14:00)
[2017-11-04] MEDS ORDERED: ASPirin 81 mg TAB PO ONE (14:00)
[2017-11-04] MEDS ORDERED: METOPROLOL TARTRATE 25 MG TAB PO ONE (14:00)
[2017-11-04] MEDS ORDERED: ENALAPRIL MALEATE 10 MG TAB PO ONE (14:00)
[2017-11-04] MEDS ORDERED: NITROGLYCERIN 0.2MG/HR TOPICAL PATCH TD ONE (14:00)
[2017-11-04] MEDS ORDERED: ENOXAPARIN SOD 40 MG/0.4 ML SYRINGE SC ONE (14:00)
[2017-11-04] MEDS ORDERED: ISOSORBIDE MONONITRATE 60 MG TAB PO ONE (14:00)
[2017-11-04] MEDS: ALBUTEROL SULF 2.5 MG/0.5ML(0.5%) NEB SOLN NEB PRN ×2 (14:18→19:01)
[2017-11-04 14:34] VITALS: BP 161/90
[2017-11-04] MEDS: SODIUM CHLOR 0.9% PF (SALINE LOCK) 10ML VIAL/SYR IV SCH ×2 (14:39→21:59)
[2017-11-04] MEDS: clonazePAM 0.5 MG TAB PO SCH ×2 (14:42→22:00)
[2017-11-04] MEDS: MORPHINE SULF INJ 2 MG/ML SYRINGE 1ML IV PRN ×2 (14:43→18:52)
[2017-11-04] MEDS: ONDANSETRON HCL 4 MG/2 ML VIAL IV PRN ×2 (14:43→18:52)
[2017-11-04] MEDS ORDERED: NALBUPHINE HCL 10 MG/1ml INJECTION IV ONE (16:00)
[2017-11-04 16:54] VITALS: BP 117/59
[2017-11-04] MEDS: InsuLIN REG 1unit/0.01ml Soln (100units/ml) SC SCH ×2 (17:00→22:00)
[2017-11-04] MEDS: ACCU-CHEK COMFORT CURVE STRIP VI SCH ×2 (17:04→22:00)
[2017-11-04] MEDS ORDERED: BUPR100T14 PO (17:11)
[2017-11-04] MEDS: HYDROcodone-ACET 5/325MG TAB PO PRN (17:11)
[2017-11-04] MEDS ORDERED: DOXE10CA PO (17:11)
[2017-11-04] MEDS: METOPROLOL TARTRATE 25 MG TAB PO SCH (21:32)
[2017-11-04 22:00] VITALS: BP 95/46
[2017-11-04] MEDS: ATORVASTATIN 20 MG TAB PO SCH (22:13)
[2017-11-05 05:00] VITALS: BP 95/51
[2017-11-05] MEDS: clonazePAM 0.5 MG TAB PO SCH ×3 (06:00→22:21)
[2017-11-05] MEDS: FUROSEMIDE 40 MG TAB PO SCH (06:00)
[2017-11-05] MEDS: SODIUM CHLOR 0.9% PF (SALINE LOCK) 10ML VIAL/SYR IV SCH ×3 (06:10→22:19)
[2017-11-05] MEDS: ACCU-CHEK COMFORT CURVE STRIP VI SCH ×4 (06:55→22:24)
[2017-11-05] MEDS: InsuLIN REG 1unit/0.01ml Soln (100units/ml) SC SCH ×5 (06:55→22:00)
[2017-11-05 06:59] LABS: Basophils # (auto) 0 uL; Basophils % (auto) 0.4 % (0.0-2.0); Eosinophils # (auto) 0.1 uL; Eosinophils % (auto) 1.5 % (0.0-7.0); Hematocrit 39.8 % (41.0-53.0); Hemoglobin 12.9 g/dL (13.5-17.5); Lymphocytes # (auto) 1.7 uL; Lymphocytes % (auto) 21.9 % (10.0-50.0); Mean Corpuscular Hemoglobin 29.5 pg (28.0-32.0); Mean Corpuscular Hgb Conc. 32.3 g/dL (32.0-36.0); Mean Corpuscular Volume 91.1 fL (80.0-100.0); Monocytes # (auto) 0.6 uL; Monocytes % (auto) 8.1 % (0.0-12.0); Neutrophils # (auto) 5.4 uL; Neutrophils % (auto) 68.1 % (37.0-80.0); Nucleated Red Blood Cells % 0.1 %; Platelet Count (auto) 203 10^3/uL (140-450); Red Blood Cells 4.37 10^6/uL (4.5-5.90); Red Cell Distribution Width 14.8 % (11.8-14.3)
[2017-11-05] MEDS: ALBUTEROL SULF 2.5 MG/0.5ML(0.5%) NEB SOLN NEB PRN (07:12)
[2017-11-05 07:25] LABS: BUN/Creatinine Ratio 7.1; Bilirubin, Total 0.4 mg/dL (0.2-1.0); Calcium 8.4 mg/dL (8.5-10.1); Total Protein 6.9 g/dL (6.4-8.2)
[2017-11-05 08:00] VITALS: BP 94/44
[2017-11-05 08:30] VITALS: BP 94/44
[2017-11-05] MEDS: AZITHROMYCIN 500MG/ 250ML 250 ML IV SCH (08:59)
[2017-11-05] MEDS: DOCUSATE SOD 100 MG CAP PO SCH ×2 (08:59→22:20)
[2017-11-05] MEDS: ASPirin 81 mg TAB PO SCH (08:59)
[2017-11-05] MEDS ORDERED: cefTRIAXone 1GM/10ml IVPUSH 10 ML IV SCH (09:00)
[2017-11-05] MEDS: POTASSIUM CHL 10 Meq TABLET PO SCH (09:00)
[2017-11-05] MEDS: GABAPENTIN 400 MG CAP PO SCH ×2 (09:01→22:19)
[2017-11-05] MEDS: PANTOPRAZOLE 40 MG TAB PO SCH (09:01)
[2017-11-05] MEDS: HYDROcodone-ACET 5/325MG TAB PO PRN ×3 (09:01→22:21)
[2017-11-05] MEDS: CLOPIDOGREL BISULFATE 75 MG TAB PO SCH (09:01)
[2017-11-05] MEDS: METOPROLOL TARTRATE 25 MG TAB PO SCH (09:02)
[2017-11-05] MEDS: ISOSORBIDE MONONITRATE 60 MG TAB PO SCH (10:00)
[2017-11-05] MEDS ORDERED: PANTOPRAZOLE 40 MG TAB PO SCH (10:00)
[2017-11-05] MEDS ORDERED: NITROGLYCERIN 0.2MG/HR TOPICAL PATCH TD SCH (10:00)
[2017-11-05] MEDS ORDERED: ENALAPRIL MALEATE 10 MG TAB PO SCH (10:00)
[2017-11-05] MEDS: ENOXAPARIN SOD 40 MG/0.4 ML SYRINGE SC SCH (11:09)
[2017-11-05 13:00] VITALS: BP 97/56
[2017-11-05] MEDS ORDERED: SODIUM CHLORIDE 0.9% IV ONE (13:30)
[2017-11-05] MEDS ORDERED: SODIUM CHLORIDE 0.9% 500 ML IV ONE (14:15)
[2017-11-05] MEDS ORDERED: SODIUM CHLORIDE 0.9% 1,000 ML IV ONE (15:00)
[2017-11-05] MEDS: MORPHINE SULF INJ 2 MG/ML SYRINGE 1ML IV PRN (16:38)
[2017-11-05 17:15] VITALS: BP 117/58
[2017-11-05] MEDS: traZODone HCL 50 MG TAB PO SCH (17:52)
[2017-11-05 22:00] VITALS: BP 97/61
[2017-11-05] MEDS: ATORVASTATIN 20 MG TAB PO SCH (22:20)
[2017-11-06 05:00] VITALS: BP 110/57
[2017-11-06] MEDS: MORPHINE SULF INJ 2 MG/ML SYRINGE 1ML IV PRN ×4 (05:07→19:40)
[2017-11-06 05:43] LABS: Creatinine, Urine 288 mg/dL (30.0-125.0); Sodium Urine 48 mmol/L (40-220)
[2017-11-06 05:47] LABS: Alcohol, Urine < 3.0 mg/dL (0-5); Amphetamine Screen, Urine NEGATIVE (NEGATIVE); Barbiturate Scree,Urine NEGATIVE (NEGATIVE); Benzodiazephine Screen, Urine NEGATIVE (NEGATIVE); Cannabinoid Screen, Urine NEGATIVE (NEGATIVE); Cocaine Screen, Urine NEGATIVE (NEGATIVE); Opiate Scree,Urine POSITIVE (NEGATIVE); Phencyclidine Screen, Urine NEGATIVE (NEGATIVE)
[2017-11-06] MEDS: SODIUM CHLOR 0.9% PF (SALINE LOCK) 10ML VIAL/SYR IV SCH ×3 (06:03→21:23)
[2017-11-06] MEDS: clonazePAM 0.5 MG TAB PO SCH ×3 (06:24→21:21)
[2017-11-06] MEDS: ACCU-CHEK COMFORT CURVE STRIP VI SCH ×4 (06:31→21:26)
[2017-11-06] MEDS: InsuLIN REG 1unit/0.01ml Soln (100units/ml) SC SCH ×4 (06:31→21:26)
[2017-11-06 06:55] LABS: Basophils # (auto) 0 uL; Basophils % (auto) 0.4 % (0.0-2.0); Eosinophils # (auto) 0.2 uL; Eosinophils % (auto) 2.3 % (0.0-7.0); Hematocrit 38.2 % (41.0-53.0); Hemoglobin 12.8 g/dL (13.5-17.5); Lymphocytes # (auto) 2.2 uL; Mean Corpuscular Hemoglobin 30.5 pg (28.0-32.0); Mean Corpuscular Hgb Conc. 33.6 g/dL (32.0-36.0); Mean Corpuscular Volume 90.9 fL (80.0-100.0); Monocytes # (auto) 0.7 uL; Monocytes % (auto) 10.4 % (0.0-12.0); Neutrophils # (auto) 3.6 uL; Neutrophils % (auto) 53.9 % (37.0-80.0); Nucleated Red Blood Cells % 0.1 %; Platelet Count (auto) 184 10^3/uL (140-450); Red Blood Cells 4.21 10^6/uL (4.5-5.90); Red Cell Distribution Width 14.6 % (11.8-14.3); White Blood Cell 6.6 10^3/uL (4.4-10.8)
[2017-11-06 07:09] LABS: BUN/Creatinine Ratio 12.9; Calcium 7.7 mg/dL (8.5-10.1)
[2017-11-06] MEDS: HYDROcodone-ACET 5/325MG TAB PO PRN ×3 (07:52→21:22)
[2017-11-06 09:00] VITALS: BP 106/67
[2017-11-06] MEDS: CLOPIDOGREL BISULFATE 75 MG TAB PO SCH (09:01)
[2017-11-06] MEDS: DOCUSATE SOD 100 MG CAP PO SCH ×2 (09:01→21:21)
[2017-11-06] MEDS: PANTOPRAZOLE 40 MG TAB PO SCH (09:01)
[2017-11-06] MEDS: GABAPENTIN 400 MG CAP PO SCH ×2 (09:01→21:21)
[2017-11-06] MEDS: ASPirin 81 mg TAB PO SCH (09:02)
[2017-11-06] MEDS: ISOSORBIDE MONONITRATE 60 MG TAB PO SCH (09:02)
[2017-11-06] MEDS: POTASSIUM CHL 10 Meq TABLET PO SCH (09:03)
[2017-11-06] MEDS: METOPROLOL TARTRATE 25 MG TAB PO SCH (09:03)
[2017-11-06] MEDS: ENOXAPARIN SOD 40 MG/0.4 ML SYRINGE SC SCH (09:04)
[2017-11-06] MEDS: AZITHROMYCIN 500MG/ 250ML 250 ML IV SCH (09:04)
[2017-11-06 10:28] VITALS: BP 119/62
[2017-11-06 13:00] VITALS: BP 100/60
[2017-11-06] MEDS: SOD CHL 0.45% 1,000 ML IV SCH (13:28)
[2017-11-06 16:26] VITALS: BP 115/65
[2017-11-06] MEDS: traZODone HCL 50 MG TAB PO SCH (17:22)
[2017-11-06] MEDS: ALBUTEROL SULF 2.5 MG/0.5ML(0.5%) NEB SOLN NEB PRN (20:10)
[2017-11-06] MEDS: IPRATROPIUM BROM 0.5 MG/2.5ML INH SOL NEB PRN (20:10)
[2017-11-06] MEDS: ATORVASTATIN 20 MG TAB PO SCH (21:22)
[2017-11-06 22:00] VITALS: BP 142/74
[2017-11-06 22:28] LABS: Urine Bacteria NONE SEEN /hpf (None Seen); Urine Blood Negative /uL (Negative); Urine Mucus FEW (None Seen); Urine Specific Gravity 1.007 (1.001-1.035); Urine WBC <1 /hpf (0 - 3)
[2017-11-07] MEDS: SOD CHL 0.45% 1,000 ML IV SCH ×2 (02:36→11:40)
[2017-11-07] MEDS: MORPHINE SULF INJ 2 MG/ML SYRINGE 1ML IV PRN ×5 (04:17→22:00)
[2017-11-07 05:00] VITALS: BP 132/67
[2017-11-07] MEDS: ACCU-CHEK COMFORT CURVE STRIP VI SCH ×4 (06:23→22:05)
[2017-11-07] MEDS: SODIUM CHLOR 0.9% PF (SALINE LOCK) 10ML VIAL/SYR IV SCH ×3 (06:23→22:04)
[2017-11-07] MEDS: clonazePAM 0.5 MG TAB PO SCH ×3 (06:23→23:08)
[2017-11-07] MEDS: InsuLIN REG 1unit/0.01ml Soln (100units/ml) SC SCH ×4 (06:25→22:00)
[2017-11-07 08:31] LABS: Basophils # (auto) 0 uL; Basophils % (auto) 0.5 % (0.0-2.0); Eosinophils # (auto) 0.2 uL; Eosinophils % (auto) 2.8 % (0.0-7.0); Hematocrit 38.4 % (41.0-53.0); Hemoglobin 12.4 g/dL (13.5-17.5); Lymphocytes # (auto) 1.9 uL; Lymphocytes % (auto) 29.3 % (10.0-50.0); Mean Corpuscular Hemoglobin 29.7 pg (28.0-32.0); Mean Corpuscular Hgb Conc. 32.4 g/dL (32.0-36.0); Mean Corpuscular Volume 91.6 fL (80.0-100.0); Monocytes # (auto) 0.7 uL; Monocytes % (auto) 10.1 % (0.0-12.0); Neutrophils # (auto) 3.7 uL; Neutrophils % (auto) 57.3 % (37.0-80.0); Nucleated Red Blood Cells % 0.1 %; Platelet Count (auto) 187 10^3/uL (140-450); Red Blood Cells 4.19 10^6/uL (4.5-5.90); Red Cell Distribution Width 14.5 % (11.8-14.3); White Blood Cell 6.5 10^3/uL (4.4-10.8)
[2017-11-07 08:52] VITALS: BP 147/76
[2017-11-07 09:04] LABS: BUN/Creatinine Ratio 18.7; Calcium 8.2 mg/dL (8.5-10.1); Potassium 4.4 mmol/L (3.5-5.1)
[2017-11-07] MEDS: ISOSORBIDE MONONITRATE 60 MG TAB PO SCH (09:41)
[2017-11-07] MEDS: ASPirin 81 mg TAB PO SCH (09:41)
[2017-11-07] MEDS: GABAPENTIN 400 MG CAP PO SCH ×2 (09:42→21:59)
[2017-11-07] MEDS: METOPROLOL TARTRATE 25 MG TAB PO SCH (09:42)
[2017-11-07] MEDS: CLOPIDOGREL BISULFATE 75 MG TAB PO SCH (09:43)
[2017-11-07] MEDS: PANTOPRAZOLE 40 MG TAB PO SCH (09:43)
[2017-11-07] MEDS: DOCUSATE SOD 100 MG CAP PO SCH ×2 (09:43→21:59)
[2017-11-07] MEDS: POTASSIUM CHL 10 Meq TABLET PO SCH (09:43)
[2017-11-07] MEDS: ENOXAPARIN SOD 40 MG/0.4 ML SYRINGE SC SCH (09:44)
[2017-11-07] MEDS ORDERED: SODIUM CHLORIDE 0.9% 3,000 ML IV ONE (11:00)
[2017-11-07] MEDS: HYDROcodone-ACET 5/325MG TAB PO PRN ×2 (11:03→19:45)
[2017-11-07 12:39] VITALS: BP 148/72
[2017-11-07 15:12] VITALS: BP 148/72
[2017-11-07 17:05] VITALS: BP 136/64
[2017-11-07] MEDS: traZODone HCL 50 MG TAB PO SCH (18:18)
[2017-11-07] MEDS: ATORVASTATIN 20 MG TAB PO SCH (21:59)
[2017-11-07 22:00] VITALS: BP 138/71
[2017-11-08 05:00] VITALS: BP 127/77
[2017-11-08] MEDS: MORPHINE SULF INJ 2 MG/ML SYRINGE 1ML IV PRN ×2 (05:23→05:35)
[2017-11-08] MEDS: ACCU-CHEK COMFORT CURVE STRIP VI SCH ×2 (06:33→11:30)
[2017-11-08] MEDS: SODIUM CHLOR 0.9% PF (SALINE LOCK) 10ML VIAL/SYR IV SCH ×2 (06:33→14:00)
[2017-11-08] MEDS: clonazePAM 0.5 MG TAB PO SCH ×2 (06:37→14:00)
[2017-11-08] MEDS: InsuLIN REG 1unit/0.01ml Soln (100units/ml) SC SCH ×2 (06:57→11:30)
[2017-11-08] MEDS: IPRATROPIUM BROM 0.5 MG/2.5ML INH SOL NEB PRN ×2 (07:03→10:31)
[2017-11-08] MEDS: ALBUTEROL SULF 2.5 MG/0.5ML(0.5%) NEB SOLN NEB PRN ×2 (07:03→10:31)
[2017-11-08 07:08] LABS: Basophils # (auto) 0 uL; Basophils % (auto) 0.4 % (0.0-2.0); Eosinophils # (auto) 0.1 uL; Eosinophils % (auto) 2.4 % (0.0-7.0); Hematocrit 37.1 % (41.0-53.0); Lymphocytes # (auto) 1.8 uL; Lymphocytes % (auto) 35.3 % (10.0-50.0); Mean Corpuscular Hemoglobin 29.8 pg (28.0-32.0); Mean Corpuscular Hgb Conc. 32.5 g/dL (32.0-36.0); Mean Corpuscular Volume 91.6 fL (80.0-100.0); Monocytes # (auto) 0.5 uL; Monocytes % (auto) 10.2 % (0.0-12.0); Neutrophils # (auto) 2.6 uL; Neutrophils % (auto) 51.7 % (37.0-80.0); Nucleated Red Blood Cells % 0.1 %; Platelet Count (auto) 178 10^3/uL (140-450); Red Blood Cells 4.04 10^6/uL (4.5-5.90); Red Cell Distribution Width 14.3 % (11.8-14.3); White Blood Cell 5.1 10^3/uL (4.4-10.8)
[2017-11-08 07:45] LABS: BUN/Creatinine Ratio 17.3; Calcium 8.3 mg/dL (8.5-10.1); Potassium 4.4 mmol/L (3.5-5.1)
[2017-11-08 08:16] VITALS: BP 159/81
[2017-11-08] MEDS: ISOSORBIDE MONONITRATE 60 MG TAB PO SCH (10:52)
[2017-11-08] MEDS: METOPROLOL TARTRATE 25 MG TAB PO SCH (10:54)
[2017-11-08] MEDS: DOCUSATE SOD 100 MG CAP PO SCH (10:56)
[2017-11-08] MEDS: CLOPIDOGREL BISULFATE 75 MG TAB PO SCH (10:57)
[2017-11-08] MEDS: GABAPENTIN 400 MG CAP PO SCH (10:57)
[2017-11-08] MEDS: PANTOPRAZOLE 40 MG TAB PO SCH (10:58)
[2017-11-08] MEDS: ASPirin 81 mg TAB PO SCH (10:59)
[2017-11-08] MEDS: POTASSIUM CHL 10 Meq TABLET PO SCH (11:00)
[2017-11-08] MEDS: ENOXAPARIN SOD 40 MG/0.4 ML SYRINGE SC SCH (11:01)
[2017-11-08 12:15] VITALS: BP 146/79
[2017-11-08] MEDS: HYDROcodone-ACET 5/325MG TAB PO PRN (12:57)
== END 2017-11-08 15:27 | disposition home health service (06) | DRG 280 ==
LOC: ER 09:19 → EDBD 09:19 → EDUNIT# 09:19 → TELE 09:20 → TELE-EAST 16:44
PROVIDERS: ADMIT Internal Medicine; ATTEND Internal Medicine
DX: I21.9 Acute myocardial infarction, unspecified (principal); N17.0 Acute kidney failure with tubular necrosis; E44.1 Mild protein-calorie malnutrition; I13.0 Hypertensive heart and chronic kidney disease with heart failure and stage 1 through stage 4 chronic kidney disease, or unspecified chronic kidney disease; E66.2 Morbid (severe) obesity with alveolar hypoventilation; I25.10 Atherosclerotic heart disease of native coronary artery without angina pectoris; D64.9 Anemia, unspecified; E11.22 Type 2 diabetes mellitus with diabetic chronic kidney disease; E78.5 Hyperlipidemia, unspecified; F17.210 Nicotine dependence, cigarettes, uncomplicated; F32.9 Major depressive disorder, single episode, unspecified; F41.9 Anxiety disorder, unspecified; J44.9 Chronic obstructive pulmonary disease, unspecified; I50.9 Heart failure, unspecified; K59.00 Constipation, unspecified; G47.00 Insomnia, unspecified; W18.39XA Other fall on same level, initial encounter; R19.7 Diarrhea, unspecified; K76.9 Liver disease, unspecified; K21.9 Gastro-esophageal reflux disease without esophagitis; N18.3 Chronic kidney disease, stage 3 (moderate); Z81.8 Family history of other mental and behavioral disorders; Z82.3 Family history of stroke; Z82.49 Family history of ischemic heart disease and other diseases of the circulatory system; Z83.3 Family history of diabetes mellitus; Z68.24 Body mass index [BMI] 24.0-24.9, adult; I25.2 Old myocardial infarction; Z86.73 Personal history of transient ischemic attack (TIA), and cerebral infarction without residual deficits; Z95.5 Presence of coronary angioplasty implant and graft; Z88.6 Allergy status to analgesic agent; Z79.899 Other long term (current) drug therapy; Z79.82 Long term (current) use of aspirin; Z87.440 Personal history of urinary (tract) infections; Z90.49 Acquired absence of other specified parts of digestive tract; Y93.89 Activity, other specified; Y92.89 Other specified places as the place of occurrence of the external cause; Y99.8 Other external cause status
CPT/HCPCS: 36415; 36600; 71045; 71046; 76775; 80048; 80053; 80061; 80307; 81001; 82550; 82570; 82805; 82962; 83036; 83735; 83880; 84300; 84443; 84484; 85025; 85379; 85652; 86141; 87040; 87081; 93005; 94640; 96372; 96374; 96375; 97163; J0696; J1815; J2405

== ENCOUNTER 2017-11-10 11:36 | Inpatient (IN) | payer OTHER ==
[~2017-11-10] VITALS: Ht 172.7 cm; Wt 152.9 kg
[2017-11-10 11:30] VITALS: BP 142/92
[~2017-11-10 11:36] MED LIST changes: -ASPI-231 PO; -ASPI325T4 PO; -BUPR-81 PO; +BUPR100T14 PO; -CITA20TA3 PO; -CLOP75TA28 PO; +DOXE10CA PO; -FUR40T PO; -FURO40TA4 PO; -GAB400C PO; -HYDR-531 PO; -ISOS20TA49 PO; -MEC25T PO; -NITR0.4S29 SL; -PAR20T PO; -POT10T PO; -TRAZ150T79 PO; -[UNRECOGNIZED DRUG - CODE] PO
[2017-11-10] MEDS ORDERED: DEXTROSE (50%) 50ML SYRG IV PRN (12:00)
[2017-11-10] MEDS ORDERED: LABETALOL HCL 5 MG/ML ML 20ML VIAL IV PRN (12:00)
[2017-11-10] MEDS ORDERED: MORPHINE SULFATE 4 MG/ML SYR/VIAL IV PRN (12:00)
[2017-11-10] MEDS ORDERED: NITROGLYCERIN 0.4 MG SL TAB SL PRN (12:00)
[2017-11-10] MEDS ORDERED: ENALAPRIL MALEATE 10 MG TAB PO SCH (12:15)
[2017-11-10] MEDS: InsuLIN REG 1unit/0.01ml Soln (100units/ml) SC SCH ×3 (12:18→21:59)
[2017-11-10] MEDS: ACCU-CHEK COMFORT CURVE STRIP VI SCH ×3 (12:18→21:59)
[2017-11-10 13:00] VITALS: BP 142/92
[2017-11-10] MEDS: POTASSIUM CHL 20 Meq TABLET PO SCH (14:15)
[2017-11-10] MEDS: ISOSORBIDE MONONITRATE 60 MG TAB PO SCH (14:16)
[2017-11-10] MEDS: CLOPIDOGREL BISULFATE 75 MG TAB PO SCH (14:16)
[2017-11-10] MEDS: ASPirin 81 mg TAB PO SCH (14:16)
[2017-11-10] MEDS: GABAPENTIN 400 MG CAP PO SCH ×2 (14:16→22:07)
[2017-11-10] MEDS: PARoxetine 20 MG TAB PO SCH (14:17)
[2017-11-10] MEDS ORDERED: PNEUMOCOCCAL VACC POLYS 25 MCG/0.5 ML VIAL IM ONE (15:00)
[2017-11-10] MEDS ORDERED: DOXE10CA PO (15:09)
[2017-11-10] MEDS ORDERED: AMLO5CAP40 PO (15:09)
[2017-11-10] MEDS ORDERED: FURO40TA4 PO (15:09)
[2017-11-10] MEDS ORDERED: TRAZ300T16 PO (15:09)
[2017-11-10] MEDS ORDERED: BUPR75TA9 PO (15:09)
[2017-11-10] MEDS: MORPHINE SULFATE 4 MG/ML SYR/VIAL IV PRN ×2 (16:49→22:38)
[2017-11-10 17:00] VITALS: BP_SYST 129; BP_SYST 131; BP_SYST 142; BP_DIAS 75; BP_DIAS 76; BP_DIAS 77
[2017-11-10] MEDS: FUROSEMIDE 40 MG TAB PO SCH (18:16)
[2017-11-10 21:44] VITALS: BP 123/69
[2017-11-10] MEDS: traZODone HCL 50 MG TAB PO SCH (22:07)
[2017-11-10] MEDS: ATORVASTATIN 20 MG TAB PO SCH (22:07)
[2017-11-11 05:41] VITALS: BP 136/76
[2017-11-11] MEDS: FUROSEMIDE 40 MG TAB PO SCH ×2 (06:09→18:43)
[2017-11-11] MEDS: MORPHINE SULFATE 4 MG/ML SYR/VIAL IV PRN ×3 (06:38→19:37)
[2017-11-11] MEDS: InsuLIN REG 1unit/0.01ml Soln (100units/ml) SC SCH ×4 (06:43→21:55)
[2017-11-11] MEDS: ACCU-CHEK COMFORT CURVE STRIP VI SCH ×4 (06:43→21:55)
[2017-11-11 09:00] VITALS: BP 156/74
[2017-11-11] MEDS: PARoxetine 20 MG TAB PO SCH (09:51)
[2017-11-11] MEDS: CLOPIDOGREL BISULFATE 75 MG TAB PO SCH (09:51)
[2017-11-11] MEDS: ASPirin 81 mg TAB PO SCH (09:51)
[2017-11-11] MEDS: POTASSIUM CHL 20 Meq TABLET PO SCH (09:51)
[2017-11-11] MEDS: GABAPENTIN 400 MG CAP PO SCH ×2 (09:51→21:55)
[2017-11-11] MEDS: ISOSORBIDE MONONITRATE 60 MG TAB PO SCH (09:52)
[2017-11-11 13:00] VITALS: BP 158/71
[2017-11-11 17:00] VITALS: BP 140/83
[2017-11-11] MEDS ORDERED: LORazepam 2MG/ML-1ML VIAL IV PRN (19:00)
[2017-11-11] MEDS: traZODone HCL 50 MG TAB PO SCH (21:54)
[2017-11-11] MEDS: ATORVASTATIN 20 MG TAB PO SCH (21:54)
[2017-11-11] MEDS: HYDROcodone-ACET 5/325MG TAB PO PRN (21:54)
[2017-11-11 22:00] VITALS: BP 160/74
[2017-11-11 23:00] VITALS: BP 138/74
[2017-11-12 01:26] VITALS: BP 138/74
[2017-11-12] MEDS: MORPHINE SULFATE 4 MG/ML SYR/VIAL IV PRN ×3 (03:05→15:28)
[2017-11-12 05:21] VITALS: BP 136/85
[2017-11-12] MEDS: FUROSEMIDE 40 MG TAB PO SCH (05:52)
[2017-11-12] MEDS: ACCU-CHEK COMFORT CURVE STRIP VI SCH ×3 (05:53→17:27)
[2017-11-12] MEDS: InsuLIN REG 1unit/0.01ml Soln (100units/ml) SC SCH ×3 (05:53→17:00)
[2017-11-12] MEDS: HYDROcodone-ACET 5/325MG TAB PO PRN ×3 (06:34→18:20)
[2017-11-12 06:52] LABS: Basophils # (auto) 0 uL; Basophils % (auto) 0.5 % (0.0-2.0); Eosinophils # (auto) 0.2 uL; Eosinophils % (auto) 3.2 % (0.0-7.0); Hematocrit 38.9 % (41.0-53.0); Hemoglobin 12.9 g/dL (13.5-17.5); Lymphocytes # (auto) 2.7 uL; Lymphocytes % (auto) 37.8 % (10.0-50.0); Mean Corpuscular Hemoglobin 30.2 pg (28.0-32.0); Mean Corpuscular Hgb Conc. 33.1 g/dL (32.0-36.0); Mean Corpuscular Volume 91.3 fL (80.0-100.0); Monocytes # (auto) 0.6 uL; Neutrophils # (auto) 3.5 uL; Neutrophils % (auto) 50.5 % (37.0-80.0); Platelet Count (auto) 177 10^3/uL (140-450); Red Blood Cells 4.26 10^6/uL (4.5-5.90); Red Cell Distribution Width 14.3 % (11.8-14.3)
[2017-11-12 06:59] LABS: BUN/Creatinine Ratio 21.4; Calcium 8.3 mg/dL (8.5-10.1); Potassium 4.3 mmol/L (3.5-5.1)
[2017-11-12] MEDS ORDERED: HYDR-531 PO (07:12)
[2017-11-12] MEDS: PARoxetine 20 MG TAB PO SCH (09:29)
[2017-11-12] MEDS: ASPirin 81 mg TAB PO SCH (09:29)
[2017-11-12] MEDS: POTASSIUM CHL 20 Meq TABLET PO SCH (09:29)
[2017-11-12] MEDS: GABAPENTIN 400 MG CAP PO SCH (09:29)
[2017-11-12] MEDS: CLOPIDOGREL BISULFATE 75 MG TAB PO SCH (09:30)
[2017-11-12 13:00] VITALS: BP 185/92
[2017-11-12 16:25] VITALS: BP 136/85
[2017-11-12 17:35] VITALS: BP 180/98
[2017-11-13] MEDS ORDERED: FUROSEMIDE 40 MG TAB PO SCH (07:00)
== END 2017-11-12 18:40 | disposition home or self-care (01) | DRG 312 ==
LOC: TELE-WESTW 11:36
PROVIDERS: ADMIT Internal Medicine; ATTEND Internal Medicine
DX: R55 Syncope and collapse (principal); E44.1 Mild protein-calorie malnutrition; I13.0 Hypertensive heart and chronic kidney disease with heart failure and stage 1 through stage 4 chronic kidney disease, or unspecified chronic kidney disease; Z68.43 Body mass index [BMI] 50.0-59.9, adult; E11.21 Type 2 diabetes mellitus with diabetic nephropathy; E11.22 Type 2 diabetes mellitus with diabetic chronic kidney disease; E11.42 Type 2 diabetes mellitus with diabetic polyneuropathy; E78.5 Hyperlipidemia, unspecified; F17.210 Nicotine dependence, cigarettes, uncomplicated; F32.9 Major depressive disorder, single episode, unspecified; F41.9 Anxiety disorder, unspecified; G47.33 Obstructive sleep apnea (adult) (pediatric); I25.10 Atherosclerotic heart disease of native coronary artery without angina pectoris; M54.5 Low back pain; N18.3 Chronic kidney disease, stage 3 (moderate); E66.01 Morbid (severe) obesity due to excess calories; G89.29 Other chronic pain; I50.9 Heart failure, unspecified; J44.9 Chronic obstructive pulmonary disease, unspecified; K21.9 Gastro-esophageal reflux disease without esophagitis; K76.9 Liver disease, unspecified; S09.90XA Unspecified injury of head, initial encounter; W18.39XA Other fall on same level, initial encounter; Y93.89 Activity, other specified; Y92.89 Other specified places as the place of occurrence of the external cause; Z79.02 Long term (current) use of antithrombotics/antiplatelets; Z79.82 Long term (current) use of aspirin; Z79.899 Other long term (current) drug therapy; Z81.8 Family history of other mental and behavioral disorders; I25.2 Old myocardial infarction; Z82.3 Family history of stroke; Z82.49 Family history of ischemic heart disease and other diseases of the circulatory system; Z83.3 Family history of diabetes mellitus; Z86.73 Personal history of transient ischemic attack (TIA), and cerebral infarction without residual deficits; Z95.5 Presence of coronary angioplasty implant and graft; Z59.0 Homelessness; Z88.8 Allergy status to other drugs, medicaments and biological substances
CPT/HCPCS: 36415; 70450; 71045; 73502; 80048; 82962; 83880; 84484; 85025; 87081; 94660; 95819

== ENCOUNTER 2017-11-14 11:01 | Emergency (ER) | payer OTHER ==
[~2017-11-14] VITALS: Ht 180.3 cm; Wt 136.1 kg
[~2017-11-14 11:01] MED LIST changes: -BUPR100T14 PO; +BUPR75TA9 PO; -CLON05T PO; -DOCU-94 PO; -ENAL20TA70 PO; +FURO40TA4 PO; -GABA800T97 PO; -HYDR-4683 PO; +HYDR-531 PO; -ISOS30TA4 PO; -METO25TA62 PO; -NITR1SPR SL; -PRAV20TA3 PO; -Pantoprazole Sodium Sesquihydr PO; -TRAZ100T2 PO; +TRAZ300T16 PO
[2017-11-14] MEDS ORDERED: ONDANSETRON HCL 4 MG/2 ML VIAL IV ONE (11:15)
[2017-11-14 12:17] LABS: Basophils # (auto) 0 uL; Basophils % (auto) 0.7 % (0.0-2.0); Eosinophils # (auto) 0 uL; Eosinophils % (auto) 0.7 % (0.0-7.0); Hematocrit 45.1 % (41.0-53.0); Hemoglobin 14.4 g/dL (13.5-17.5); Lymphocytes # (auto) 1.6 uL; Mean Corpuscular Volume 90.9 fL (80.0-100.0); Monocytes # (auto) 0.4 uL; Monocytes % (auto) 6.4 % (0.0-12.0); Neutrophils # (auto) 4.4 uL; Neutrophils % (auto) 67.2 % (37.0-80.0); Nucleated Red Blood Cells % 0.1 %; Platelet Count (auto) 208 10^3/uL (140-450); Red Blood Cells 4.97 10^6/uL (4.5-5.90); Red Cell Distribution Width 13.7 % (11.8-14.3); White Blood Cell 6.5 10^3/uL (4.4-10.8)
[2017-11-14 12:30] LABS: INR 1.01 (0.9-1.15); Partial Thromboplastin Time 25.3 sec (23.78-33.04); Prothrombin Time 10.8 sec (9.27-12.13)
[2017-11-14 12:51] LABS: Alanine Aminotransferase 17 U/L (16-61); Albumin 3.2 g/dL (3.4-5.0); Anion Gap 10 (5-15); Aspartate Aminotransferase 16 U/L (15-37); BUN/Creatinine Ratio 11.4; Blood Urea Nitrogen 13 mg/dL (7-18); Calcium 8.6 mg/dL (8.5-10.1); Carbon Dioxide 22 mmol/L (21-32); Chloride 109 mmol/L (98-107); GFR African American 83 mL/min; GFR Non-African American 69 mL/min; Glucose 95 mg/dL (74-106); Sodium 141 mmol/L (136-145)
[2017-11-14 12:56] LABS: Alkaline Phosphatase 65 U/L (45-117); Bilirubin, Total 0.4 mg/dL (0.2-1.0); Total Protein 7.9 g/dL (6.4-8.2)
[2017-11-14 13:31] VITALS: BP 178/94
== END 2017-11-14 14:13 | disposition home or self-care (01) ==
LOC: EDSEX 11:01 → EDBD 11:01 → ER 11:04
DX: R55 Syncope and collapse (principal); I13.0 Hypertensive heart and chronic kidney disease with heart failure and stage 1 through stage 4 chronic kidney disease, or unspecified chronic kidney disease; E11.22 Type 2 diabetes mellitus with diabetic chronic kidney disease; N18.9 Chronic kidney disease, unspecified; I50.9 Heart failure, unspecified; K21.9 Gastro-esophageal reflux disease without esophagitis; I25.2 Old myocardial infarction; F17.210 Nicotine dependence, cigarettes, uncomplicated; Z90.49 Acquired absence of other specified parts of digestive tract; Z90.89 Acquired absence of other organs; Z79.899 Other long term (current) drug therapy; Z88.8 Allergy status to other drugs, medicaments and biological substances
CPT/HCPCS: 36415; 70450; 71045; 80053; 83735; 84484; 85025; 85610; 85730; 93005; 94761; 96374; 99285; J2405

== ENCOUNTER 2017-11-16 13:59 | Emergency (ER) | payer OTHER, MEDICAID ==
[2017-11-16 14:04] VITALS: BP 180/100
[2017-11-16 14:46] LABS: Basophils # (auto) 0 uL; Basophils % (auto) 0.6 % (0.0-2.0); Eosinophils # (auto) 0.1 uL; Hematocrit 42.5 % (41.0-53.0); Hemoglobin 13.9 g/dL (13.5-17.5); Lymphocytes # (auto) 1.9 uL; Lymphocytes % (auto) 27.7 % (10.0-50.0); Mean Corpuscular Hemoglobin 29.7 pg (28.0-32.0); Mean Corpuscular Hgb Conc. 32.7 g/dL (32.0-36.0); Mean Corpuscular Volume 90.9 fL (80.0-100.0); Monocytes # (auto) 0.5 uL; Monocytes % (auto) 7.8 % (0.0-12.0); Neutrophils # (auto) 4.4 uL; Neutrophils % (auto) 62.9 % (37.0-80.0); Platelet Count (auto) 188 10^3/uL (140-450); Red Blood Cells 4.67 10^6/uL (4.5-5.90); Red Cell Distribution Width 13.8 % (11.8-14.3)
[2017-11-16 15:02] LABS: Alanine Aminotransferase 20 U/L (16-61); Albumin 3.4 g/dL (3.4-5.0); Anion Gap 6 (5-15); Aspartate Aminotransferase 14 U/L (15-37); BUN/Creatinine Ratio 12.2; Blood Urea Nitrogen 16 mg/dL (7-18); Calcium 9.4 mg/dL (8.5-10.1); Carbon Dioxide 28 mmol/L (21-32); Chloride 110 mmol/L (98-107); GFR African American 71 mL/min; GFR Non-African American 59 mL/min; Glucose 109 mg/dL (74-106); Sodium 144 mmol/L (136-145)
[2017-11-16 15:07] LABS: Alkaline Phosphatase 65 U/L (45-117); Bilirubin, Total 0.4 mg/dL (0.2-1.0); Total Protein 7.7 g/dL (6.4-8.2)
== END 2017-11-16 16:50 | disposition home or self-care (01) ==
LOC: EDBD 13:59 → ER 13:59
DX: R07.89 Other chest pain (principal); I13.0 Hypertensive heart and chronic kidney disease with heart failure and stage 1 through stage 4 chronic kidney disease, or unspecified chronic kidney disease; E11.22 Type 2 diabetes mellitus with diabetic chronic kidney disease; N18.9 Chronic kidney disease, unspecified; I50.9 Heart failure, unspecified; Z94.0 Kidney transplant status; J44.9 Chronic obstructive pulmonary disease, unspecified; K21.9 Gastro-esophageal reflux disease without esophagitis; I25.2 Old myocardial infarction; F17.210 Nicotine dependence, cigarettes, uncomplicated; Z90.49 Acquired absence of other specified parts of digestive tract; Z90.89 Acquired absence of other organs; Z98.61 Coronary angioplasty status; Z79.899 Other long term (current) drug therapy; Z88.8 Allergy status to other drugs, medicaments and biological substances
CPT/HCPCS: 36415; 80053; 83735; 84484; 85025; 93005

== ENCOUNTER 2018-03-14 17:12 | Emergency (ER) | payer OTHER, MEDICAID ==
[~2018-03-14] VITALS: Ht 172.7 cm; Wt 149.7 kg
[~2018-03-14 17:12] MED LIST changes: +AMLO5CAP40 PO; +BUDE0.253 IN; +ENAL20TA70 PO; -HYDR-531 PO; +ISOS30TA4 PO; +METO25TA62 PO
[2018-03-14] MEDS ORDERED: SODIUM CHLORIDE 0.9% 1,000 ML IVB ONE (17:20)
[2018-03-14] MEDS ORDERED: MORPHINE SULFATE 4 MG/ML SYR/VIAL IV ONE (17:30)
[2018-03-14] MEDS ORDERED: ONDANSETRON HCL 4 MG/2 ML VIAL IV ONE (17:30)
[2018-03-14 18:04] LABS: Basophils # (auto) 0.1 uL; Eosinophils # (auto) 0.1 uL; Eosinophils % (auto) 1.6 % (0.0-7.0); Hematocrit 44.6 % (41.0-53.0); Hemoglobin 14.7 g/dL (13.5-17.5); Lymphocytes # (auto) 2.3 uL; Lymphocytes % (auto) 25.9 % (10.0-50.0); Mean Corpuscular Hemoglobin 30.4 pg (28.0-32.0); Mean Corpuscular Volume 92.3 fL (80.0-100.0); Monocytes # (auto) 0.6 uL; Monocytes % (auto) 7.2 % (0.0-12.0); Neutrophils # (auto) 5.6 uL; Neutrophils % (auto) 64.3 % (37.0-80.0); Nucleated Red Blood Cells % 0.2 %; Platelet Count (auto) 155 10^3/uL (140-450); Red Blood Cells 4.83 10^6/uL (4.5-5.90); Red Cell Distribution Width 14.5 % (11.8-14.3); White Blood Cell 8.8 10^3/uL (4.4-10.8)
[2018-03-14 18:19] LABS: Alanine Aminotransferase 21 U/L (16-61); Albumin 3.3 g/dL (3.4-5.0); Anion Gap 4 (5-15); Aspartate Aminotransferase 12 U/L (15-37); BUN/Creatinine Ratio 15.2; Blood Urea Nitrogen 17 mg/dL (7-18); Calcium 8.2 mg/dL (8.5-10.1); Carbon Dioxide 28 mmol/L (21-32); Chloride 114 mmol/L (98-107); GFR African American > 60 mL/min; GFR Non-African American > 60 mL/min; Glucose 80 mg/dL (74-106); Magnesium 2.4 mg/dL (1.6-2.6); Potassium 4.1 mmol/L (3.5-5.1); Sodium 146 mmol/L (136-145)
[2018-03-14 18:24] LABS: Alkaline Phosphatase 91 U/L (45-117); Bilirubin, Total 0.2 mg/dL (0.2-1.0); INR 0.9 (0.9-1.15); Partial Thromboplastin Time 21.4 sec (23.78-33.04); Prothrombin Time 9.7 sec (9.27-12.13); Total Protein 7.6 g/dL (6.4-8.2)
[2018-03-14 20:50] VITALS: BP 170/89
== END 2018-03-14 21:14 | disposition home or self-care (01) ==
LOC: EDBD 17:12 → ER 17:15
DX: R07.89 Other chest pain (principal); E11.22 Type 2 diabetes mellitus with diabetic chronic kidney disease; I13.0 Hypertensive heart and chronic kidney disease with heart failure and stage 1 through stage 4 chronic kidney disease, or unspecified chronic kidney disease; N18.9 Chronic kidney disease, unspecified; I50.9 Heart failure, unspecified; J44.9 Chronic obstructive pulmonary disease, unspecified; K21.9 Gastro-esophageal reflux disease without esophagitis; E78.5 Hyperlipidemia, unspecified; I25.2 Old myocardial infarction; F17.210 Nicotine dependence, cigarettes, uncomplicated; Z86.73 Personal history of transient ischemic attack (TIA), and cerebral infarction without residual deficits; Z79.4 Long term (current) use of insulin; Z90.49 Acquired absence of other specified parts of digestive tract; Z87.440 Personal history of urinary (tract) infections; Z98.61 Coronary angioplasty status; Z88.6 Allergy status to analgesic agent
CPT/HCPCS: 36415; 71045; 80053; 83735; 83880; 84484; 85025; 85610; 85730; 93005; 94761; 96361; 96374; 96375; 99284; J2270; J2405; J7030

== ENCOUNTER 2018-03-25 07:30 | Emergency (ER) | payer OTHER, MEDICAID ==
[~2018-03-25] VITALS: Ht 167.6 cm; Wt 158.8 kg
[2018-03-25 07:30] VITALS: BP 164/99
== END 2018-03-25 08:50 | disposition left against medical advice (07) ==
LOC: EDBD 07:30 → EDUNIT# 07:30 → ER 07:36
DX: R07.2 Precordial pain (principal); F17.210 Nicotine dependence, cigarettes, uncomplicated; F41.9 Anxiety disorder, unspecified; J44.9 Chronic obstructive pulmonary disease, unspecified; E11.22 Type 2 diabetes mellitus with diabetic chronic kidney disease; I13.0 Hypertensive heart and chronic kidney disease with heart failure and stage 1 through stage 4 chronic kidney disease, or unspecified chronic kidney disease; N18.9 Chronic kidney disease, unspecified; I50.9 Heart failure, unspecified; K21.9 Gastro-esophageal reflux disease without esophagitis; E78.5 Hyperlipidemia, unspecified; I25.2 Old myocardial infarction; Z87.440 Personal history of urinary (tract) infections; Z86.73 Personal history of transient ischemic attack (TIA), and cerebral infarction without residual deficits; Z86.14 Personal history of Methicillin resistant Staphylococcus aureus infection; Z79.1 Long term (current) use of non-steroidal anti-inflammatories (NSAID); Z79.899 Other long term (current) drug therapy; Z88.6 Allergy status to analgesic agent
CPT/HCPCS: 93005

== ENCOUNTER → 2018-04-25 | Outpatient (CLI) | payer OTHER, MEDICAID ==
[~2018-04-25] MED LIST changes: +ALBUTEROL SULF 2.5 MG/0.5ML(0.5%) NEB SOLN ONE
== END | disposition home or self-care (01) ==
LOC: RT 08:09
PROVIDERS: ATTEND Internal Medicine Pulmonary Disease
DX: R06.00 Dyspnea, unspecified (principal)
CPT/HCPCS: 94060; J7611

== ENCOUNTER 2018-07-01 12:48 | Emergency (ER) | payer OTHER, MEDICAID ==
[~2018-07-01] VITALS: Ht 172.7 cm; Wt 136.1 kg
[~2018-07-01 12:48] MED LIST changes: -ALBUTEROL SULF 2.5 MG/0.5ML(0.5%) NEB SOLN ONE; -ENAL20TA70 PO; +METO25TA5 PO; -METO25TA62 PO; +NITR0.4S29 SL
[2018-07-01 14:22] LABS: Basophils # (auto) 0 uL; Basophils % (auto) 0.4 % (0.0-2.0); Eosinophils # (auto) 0.1 uL; Eosinophils % (auto) 0.9 % (0.0-7.0); Hematocrit 46.5 % (41.0-53.0); Hemoglobin 15.3 g/dL (13.5-17.5); Lymphocytes # (auto) 1.9 uL; Mean Corpuscular Hemoglobin 30.3 pg (28.0-32.0); Mean Corpuscular Hgb Conc. 32.9 g/dL (32.0-36.0); Mean Corpuscular Volume 92.2 fL (80.0-100.0); Monocytes # (auto) 0.6 uL; Monocytes % (auto) 6.9 % (0.0-12.0); Neutrophils # (auto) 5.4 uL; Neutrophils % (auto) 67.8 % (37.0-80.0); Nucleated Red Blood Cells % 0.1 %; Platelet Count (auto) 162 10^3/uL (140-450); Red Blood Cells 5.05 10^6/uL (4.5-5.90); Red Cell Distribution Width 13.5 % (11.8-14.3)
[2018-07-01 14:42] LABS: Alanine Aminotransferase 24 U/L (16-61); Albumin 3.4 g/dL (3.4-5.0); Anion Gap 8 (5-15); Aspartate Aminotransferase 13 U/L (15-37); Blood Urea Nitrogen 18 mg/dL (7-18); Carbon Dioxide 26 mmol/L (21-32); Chloride 112 mmol/L (98-107); GFR African American 72 mL/min; GFR Non-African American 60 mL/min; Glucose 85 mg/dL (74-106); Magnesium 2.4 mg/dL (1.6-2.6); Potassium 3.9 mmol/L (3.5-5.1); Sodium 146 mmol/L (136-145)
[2018-07-01 14:46] LABS: Alkaline Phosphatase 89 U/L (45-117); Bilirubin, Total 0.2 mg/dL (0.2-1.0)
[2018-07-01 17:49] VITALS: BP 172/85
== END 2018-07-01 17:51 | disposition home or self-care (01) ==
LOC: EDBD 12:48 → ER 12:58
DX: R07.89 Other chest pain (principal); I13.0 Hypertensive heart and chronic kidney disease with heart failure and stage 1 through stage 4 chronic kidney disease, or unspecified chronic kidney disease; E11.22 Type 2 diabetes mellitus with diabetic chronic kidney disease; N18.9 Chronic kidney disease, unspecified; I50.9 Heart failure, unspecified; F17.210 Nicotine dependence, cigarettes, uncomplicated; Z79.899 Other long term (current) drug therapy; Z88.6 Allergy status to analgesic agent
CPT/HCPCS: 36415; 71046; 80053; 83735; 83880; 84484; 85025; 93005

== ENCOUNTER 2018-07-10 19:05 | Inpatient (IN) | payer OTHER, MEDICAID | END 2018-07-12 16:05 | disposition home or self-care (01) | LOC: TELE-CENTR 19:05 | DX: R07.9 Chest pain, unspecified (principal); I13.0 Hypertensive heart and chronic kidney disease with heart failure and stage 1 through stage 4 chronic kidney disease, or unspecified chronic kidney disease; N18.3 Chronic kidney disease, stage 3 (moderate); E66.01 Morbid (severe) obesity due to excess calories; I25.119 Atherosclerotic heart disease of native coronary artery with unspecified angina pectoris ==

== ENCOUNTER 2018-07-25 14:42 | Emergency (ER) | payer OTHER, MEDICAID ==
[~2018-07-25] VITALS: Ht 172.7 cm; Wt 163.3 kg
[~2018-07-25 14:42] MED LIST changes: -BUDE0.253 IN; -TRAZ300T16 PO
[2018-07-25] MEDS ORDERED: cloNIDine HCL 0.1 MG TAB ONE (14:54)
[2018-07-25 15:08] VITALS: BP 215/106
[2018-07-25] MEDS ORDERED: cloNIDine HCL 0.1 MG TAB PO ONE (15:15)
[2018-07-25 15:23] LABS: Basophils # (auto) 0.1 uL; Basophils % (auto) 1.3 % (0.0-2.0); Eosinophils # (auto) 0.1 uL; Eosinophils % (auto) 0.9 % (0.0-7.0); Hematocrit 44.9 % (41.0-53.0); Lymphocytes # (auto) 2.3 uL; Lymphocytes % (auto) 26.6 % (10.0-50.0); Mean Corpuscular Hemoglobin 30.5 pg (28.0-32.0); Mean Corpuscular Hgb Conc. 33.3 g/dL (32.0-36.0); Mean Corpuscular Volume 91.5 fL (80.0-100.0); Monocytes # (auto) 0.6 uL; Monocytes % (auto) 6.9 % (0.0-12.0); Neutrophils # (auto) 5.6 uL; Neutrophils % (auto) 64.3 % (37.0-80.0); Nucleated Red Blood Cells % 0.1 %; Platelet Count (auto) 150 10^3/uL (140-450); Red Blood Cells 4.91 10^6/uL (4.5-5.90); Red Cell Distribution Width 13.3 % (11.8-14.3); White Blood Cell 8.7 10^3/uL (4.4-10.8)
[2018-07-25 15:40] LABS: Alanine Aminotransferase 22 U/L (16-61); Albumin 3.3 g/dL (3.4-5.0); Anion Gap 8 (5-15); Aspartate Aminotransferase 14 U/L (15-37); Blood Urea Nitrogen 13 mg/dL (7-18); Calcium 8.7 mg/dL (8.5-10.1); Carbon Dioxide 25 mmol/L (21-32); Chloride 110 mmol/L (98-107); Glucose 98 mg/dL (74-106); Magnesium 2.4 mg/dL (1.6-2.6); Potassium 3.7 mmol/L (3.5-5.1); Sodium 143 mmol/L (136-145)
[2018-07-25 15:45] LABS: Alkaline Phosphatase 80 U/L (45-117); BUN/Creatinine Ratio 11.3; Bilirubin, Total 0.6 mg/dL (0.2-1.0); GFR African American 82 mL/min; GFR Non-African American 68 mL/min; Total Protein 7.8 g/dL (6.4-8.2)
== END 2018-07-25 20:30 | disposition left against medical advice (07) ==
LOC: ER 14:45
DX: R07.89 Other chest pain (principal); Z53.21 Procedure and treatment not carried out due to patient leaving prior to being seen by health care provider
CPT/HCPCS: 36415; 71046; 80053; 83735; 84484; 85025; 93005

== ENCOUNTER 2018-08-09 13:01 | Emergency (ER) | payer OTHER, MEDICAID ==
[~2018-08-09] VITALS: Ht 172.7 cm; Wt 117.9 kg
[2018-08-09] MEDS ORDERED: MORPHINE SULFATE 4 MG/ML SYR/VIAL IV ONE (13:15)
[2018-08-09] MEDS ORDERED: ONDANSETRON HCL 4 MG/2 ML VIAL IV ONE (13:15)
[2018-08-09 13:57] LABS: Basophils # (auto) 0 uL; Basophils % (auto) 0.5 % (0.0-2.0); Eosinophils # (auto) 0.1 uL; Eosinophils % (auto) 0.8 % (0.0-7.0); Hematocrit 43.8 % (41.0-53.0); Hemoglobin 14.4 g/dL (13.5-17.5); Lymphocytes # (auto) 1.8 uL; Lymphocytes % (auto) 22.7 % (10.0-50.0); Mean Corpuscular Hemoglobin 30.2 pg (28.0-32.0); Mean Corpuscular Volume 91.7 fL (80.0-100.0); Monocytes # (auto) 0.6 uL; Monocytes % (auto) 7.1 % (0.0-12.0); Neutrophils # (auto) 5.4 uL; Neutrophils % (auto) 68.9 % (37.0-80.0); Nucleated Red Blood Cells % 0.1 %; Platelet Count (auto) 147 10^3/uL (140-450); Red Blood Cells 4.77 10^6/uL (4.5-5.90); Red Cell Distribution Width 13.5 % (11.8-14.3); White Blood Cell 7.8 10^3/uL (4.4-10.8)
[2018-08-09 14:20] LABS: Albumin 3.2 g/dL (3.4-5.0); Anion Gap 2 (5-15); Blood Urea Nitrogen 17 mg/dL (7-18); Calcium 8.5 mg/dL (8.5-10.1); Carbon Dioxide 26 mmol/L (21-32); Chloride 116 mmol/L (98-107); Glucose 111 mg/dL (74-106); Magnesium 2.4 mg/dL (1.6-2.6); Potassium 3.9 mmol/L (3.5-5.1); Sodium 144 mmol/L (136-145)
[2018-08-09 14:25] LABS: Alanine Aminotransferase 18 U/L (16-61); Alkaline Phosphatase 78 U/L (45-117); Aspartate Aminotransferase 13 U/L (15-37); BUN/Creatinine Ratio 16.5; Bilirubin, Total 0.4 mg/dL (0.2-1.0); GFR African American 94 mL/min; GFR Non-African American 77 mL/min; Total Protein 7.3 g/dL (6.4-8.2)
[2018-08-09 15:12] VITALS: BP 147/66
== END 2018-08-09 15:13 | disposition home or self-care (01) ==
LOC: EDBD 13:01 → ER 13:16
DX: R07.89 Other chest pain (principal); E66.01 Morbid (severe) obesity due to excess calories; I13.0 Hypertensive heart and chronic kidney disease with heart failure and stage 1 through stage 4 chronic kidney disease, or unspecified chronic kidney disease; E13.22 Other specified diabetes mellitus with diabetic chronic kidney disease; N18.9 Chronic kidney disease, unspecified; I50.9 Heart failure, unspecified; I25.2 Old myocardial infarction; J44.9 Chronic obstructive pulmonary disease, unspecified; F17.210 Nicotine dependence, cigarettes, uncomplicated; Z90.89 Acquired absence of other organs; Z98.61 Coronary angioplasty status; Z68.39 Body mass index [BMI] 39.0-39.9, adult; Z79.899 Other long term (current) drug therapy
CPT/HCPCS: 36415; 71045; 80053; 83735; 84484; 85025; 93005; 94761; 96374; 96375; 99284; J2270; J2405

== ENCOUNTER 2018-08-22 09:39 | Inpatient (IN) | payer OTHER, MEDICAID ==
[2018-08-22 09:35] VITALS: BP 164/94
[2018-08-22] MEDS ORDERED: MORPHINE SULF INJ 2 MG/ML SYRINGE 1ML IV PRN (10:15)
[2018-08-22] MEDS ORDERED: NITROGLYCERIN 0.4 MG SL TAB SL PRN (10:15)
--- NOTE | 2018-08-22 10:20 | NUR ---
PT ARRIVED IN [facility] TRANSPORT, REPORT RECEIVED FROM AGRI BUSINESS AGENT. PT IN FOWLERS, AWAKE, ALERT, ORIENTEDx4. RR:24 ON ROOM AIR O2SAT: 96%, PT REPORTS AMBULATORY WITH CANE ASSIST. RIGHT SIDED WEAKNESS FROM Hx OF CVA. PT REPORTS CHEST PAIN 8/10 AT MOMENT, RADIATES TO LEFT ARM. PALPABLE PULSES TO ALL EXTREMITIES +2. NO EVIDENCE OF EDEMA. LAST BM 08/21/18 NORMAL IN CONSISTENCY. PT ORIENTED TO ROOM ENVIRONMENT AND UNITS POLICIES, BED LOCKED AND IN LOWEST POSITION, CALL LIGHT WITHIN REACH. WILL CONTINUE TO MONITOR.
--- NOTE | 2018-08-22 10:30 | NUR ---
DR. RAYGOZA IN TO SEE PT. PLAN OF CARE DISCUSSED, PT IN AGREEMENT.
[2018-08-22] MEDS: ISOSORBIDE MONONITRATE 60 MG TAB PO SCH (11:21)
[2018-08-22] MEDS: MORPHINE SULF INJ 2 MG/ML SYRINGE 1ML IV PRN ×3 (11:21→19:58)
[2018-08-22 13:00] VITALS: BP 166/96
[2018-08-22 17:00] VITALS: BP 138/69
[2018-08-22] MEDS: DOXEPIN 10 MG PO SCH (18:00)
--- NOTE | 2018-08-22 19:16 | NUR ---
Opening Shift Note Received report from RNJERMAIN, assumed care of patient. Patient awake and alert. Verbalizes pain, will assess. medicate and re assess as ordered. Instructed on POC and to call for assist PRN, will continue to monitor for changes Q1hr and PRN.
[2018-08-22 20:00] VITALS: BP 119/75
[2018-08-22 21:32] VITALS: BP 119/75
[2018-08-22] MEDS: ATORVASTATIN 20 MG TAB PO SCH (22:29)
[2018-08-22] MEDS: METOPROLOL TARTRATE 25 MG TAB PO SCH (22:30)
[2018-08-22] MEDS: buPROPion HCL 75 MG TAB PO SCH (22:30)
[2018-08-22] MEDS: LORazepam 2MG/ML-1ML VIAL IV PRN (22:31)
[2018-08-23] VITALS (7 sets, daily range): BP systolic 112–143; BP diastolic 70–80
[2018-08-23] MEDS: MORPHINE SULF INJ 2 MG/ML SYRINGE 1ML IV PRN ×5 (02:44→20:10)
--- NOTE | 2018-08-23 04:31 | NUR ---
ROUNDS PATIENT RESTING IN BED WITH EYES CLOSED, EVEN AND UNLABORED RESPIRATIONS AT 17 BPM AND O2 SATURATION 95% ON ROOM AIR. DENIES ANY PAIN OR DISCOMFORT AT THIS TIME. WILL CONTINUE TO MONITOR.
[2018-08-23 06:32] LABS: Basophils # (auto) 0 uL; Basophils % (auto) 0.6 % (0.0-2.0); Eosinophils # (auto) 0.2 uL; Eosinophils % (auto) 2.1 % (0.0-7.0); Hematocrit 42.1 % (41.0-53.0); Lymphocytes # (auto) 1.9 uL; Lymphocytes % (auto) 22.8 % (10.0-50.0); Mean Corpuscular Hemoglobin 30.4 pg (28.0-32.0); Mean Corpuscular Hgb Conc. 33.2 g/dL (32.0-36.0); Mean Corpuscular Volume 91.7 fL (80.0-100.0); Monocytes # (auto) 0.7 uL; Monocytes % (auto) 8.2 % (0.0-12.0); Neutrophils # (auto) 5.5 uL; Neutrophils % (auto) 66.3 % (37.0-80.0); Nucleated Red Blood Cells % 0.1 %; Platelet Count (auto) 155 10^3/uL (140-450); Red Cell Distribution Width 13.7 % (11.8-14.3); White Blood Cell 8.2 10^3/uL (4.4-10.8)
[2018-08-23 06:52] LABS: Albumin 3.1 g/dL (3.4-5.0); Calcium 8.5 mg/dL (8.5-10.1)
[2018-08-23 06:56] LABS: BUN/Creatinine Ratio 19.1; Bilirubin, Total 0.9 mg/dL (0.2-1.0)
--- NOTE | 2018-08-23 08:00 | NUR ---
Opening note Assumed care of patient awake and alert. Pt currently SOB sitting up in bed on room air. Placed on 2L NC and assisted to high fowlers position with oxygen saturation at 96%. Pt updated on POC for the day and all questions answered. Bed is in lowest, locked position with call light within reach, side rails up x2, and call light within reach. Will continue to monitor q1h and prn.
[2018-08-23] MEDS: buPROPion HCL 75 MG TAB PO SCH ×2 (09:45→22:10)
[2018-08-23] MEDS: ISOSORBIDE MONONITRATE 60 MG TAB PO SCH (09:46)
[2018-08-23] MEDS: METOPROLOL TARTRATE 25 MG TAB PO SCH ×2 (09:47→22:11)
[2018-08-23] MEDS ORDERED: CLOPIDOGREL BISULFATE 75 MG TAB PO SCH (10:00)
[2018-08-23] MEDS ORDERED: FUROSEMIDE 20 MG TAB PO SCH (10:00)
[2018-08-23] MEDS ORDERED: ASPirin-EC 81 mg tab PO SCH (10:00)
--- NOTE | 2018-08-23 13:13 | NUR ---
Primary RN Sarah, to get girth measurements so I can fax to [facility] to see if pt will fit on [facility] cath table.
--- NOTE | 2018-08-23 14:50 | NUR ---
GAVE MEASUREMENTS TO VENDING ENTERPRISES SUPERVISOR RACHEL. SHOULDER TO SHOULDER 26 INCHES, HIP TO HIP 34 INCHES, BUTT TO UMBILICUS 12 INCHES.
--- NOTE | 2018-08-23 15:38 | NUR ---
Transfer: faxed measurements to [facility] at 1500 hrs await to hear back from them
--- NOTE | 2018-08-23 15:57 | NUR ---
Managed care paperwork completed and sent to [facility]. [facility] called and notified of need to transfer pt, left message. [facility] on will call. Auths for facility is [id number] auth for [facility]r is [id number]
--- NOTE | 2018-08-23 16:13 | NUR ---
Transfer: Dr So said Dr. Vásquez texted her stating pt was accepted to [facility], she did not know who the accepting MD is , I have not heard back from [facility] as of yet
--- NOTE | 2018-08-23 16:26 | NUR ---
Kasia at [facility] called me and stated pt has been accepted but no bed yet. Accepting MD is Dr. Dsouza, Kasia will call the unit when she gets a bed
[2018-08-23] MEDS: DOXEPIN 10 MG PO SCH (18:00)
--- NOTE | 2018-08-23 19:07 | NUR ---
CLOSING SHIFT NOTE ENDORSED CARE TO MANAGER PROTEIN FRANCISCO SCHWARTZ. PATIENT HAS NO S/S OF DISTRESS/SOB OR PAIN AT THIS TIME.
--- NOTE | 2018-08-23 19:22 | NUR ---
OPENING NOTE SHIFT UPON ROUNDING PATIENT STATES EXCRUCIATING CHEST PAIN, 10/10. VITAL SIGNS: 161/86, 68HR, 93%SPO2. EKG DONE AT BED SIDE <NORMAL SINUS RHYTHM, INCOMPLETE RIGHT BUNDLE BRANCH BLOCK, LEFT ANTERIOR FASCICULAR BLOCK, PROLONGED QT> 3 NITROS GIVEN 5 MINUTES APART, BLOOD PRESSURE POST NITRO IS 122/70, 68HR. MORPHINE GIVEN PER ORDER AND NASAL CANULA AT 2L, PATIENT SATING 98%. ON PAIN RE ASSESSMENT PATIENT RATES PAIN 6/10 AND DECREASING. WILL CONTINUE TO MONITOR.
--- NOTE | 2018-08-23 20:15 | NUR ---
KEVIN FROM [facility] CALLED AND INFORMED BED AVAILABLE. UNIT 7300, ROOM 2, BED 1. WILL CALL [facility] TO ARRANGE TRANSPORT.
--- NOTE | 2018-08-23 21:30 | NUR ---
[facility] CALLED FOR TRANSPORT SET UP. INFORMED ME HAVING ALL INFORMATION NEEDED, NO ADDITIONAL DOCUMENTS TO BE FAXED NEEDED AT THIS TIME. ESTIMATED HOUSECALLS NURSE TIME IS 0000.
--- NOTE | 2018-08-23 22:00 | NUR ---
REPORT GIVEN TO JERO SATHISH SINGH.
[2018-08-23] MEDS: ATORVASTATIN 20 MG TAB PO SCH (22:10)
[2018-08-23] MEDS: LORazepam 2MG/ML-1ML VIAL IV PRN (22:11)
[2018-08-24] MEDS: MORPHINE SULF INJ 2 MG/ML SYRINGE 1ML IV PRN (00:03)
--- NOTE | 2018-08-24 00:05 | NUR ---
[facility] ARRIVED ON UNIT, REPORT GIVEN TO PAGE.
--- NOTE | 2018-08-24 00:08 | NUR ---
Pt being trans to another hosp Order obtained for transfer of NAVID SANCHEZ to [facility]. Report called/given to JERO SINGH. Report given to EMS transport team. Medication reconciliation form completed and copy given to patient. Transported via gurney along with copied chart and imaging films/disk and all personal belongings. No distress noted on time of departure.
--- NOTE | 2018-08-24 00:10 | NUR ---
TELE BOX #40 DC'D. CLEANED AND RETURNED TO OMARI.
[2018-08-27] MEDS ORDERED: TRAZ100T2 PO (23:15)
[2018-08-28] MEDS ORDERED: AMLO5TAB13 PO (02:28)
[2018-08-28] MEDS ORDERED: ATOR10TA PO (02:28)
== END 2018-08-24 00:10 | disposition short-term general hospital (02) | DRG 303 ==
LOC: TELE-WESTW 09:39
PROVIDERS: ADMIT Nurse Practitioner Acute Care; ATTEND Internal Medicine
DX: I25.110 Atherosclerotic heart disease of native coronary artery with unstable angina pectoris (principal); E44.1 Mild protein-calorie malnutrition; F11.20 Opioid dependence, uncomplicated; E66.01 Morbid (severe) obesity due to excess calories; F32.9 Major depressive disorder, single episode, unspecified; E78.5 Hyperlipidemia, unspecified; G89.29 Other chronic pain; I11.0 Hypertensive heart disease with heart failure; I50.9 Heart failure, unspecified; J44.9 Chronic obstructive pulmonary disease, unspecified; Z76.5 Malingerer [conscious simulation]; Z79.02 Long term (current) use of antithrombotics/antiplatelets; Z79.82 Long term (current) use of aspirin; Z88.8 Allergy status to other drugs, medicaments and biological substances; Z79.899 Other long term (current) drug therapy; Z81.8 Family history of other mental and behavioral disorders; Z82.3 Family history of stroke; Z82.49 Family history of ischemic heart disease and other diseases of the circulatory system; Z95.5 Presence of coronary angioplasty implant and graft
CPT/HCPCS: 36415; 80053; 83880; 84484; 85025; 87081; G0378

== ENCOUNTER 2018-09-24 10:57 | Emergency (ER) | payer OTHER, MEDICAID ==
[~2018-09-24] VITALS: Ht 172.7 cm; Wt 149.7 kg
[~2018-09-24 10:57] MED LIST changes: +AML5T PO; -AMLO5CAP40 PO; -ATOR1TAB PO; +ATOR20TA50 PO; +BEN10T PO; +ISO60SRT PO; -ISOS30TA4 PO; +PANT40TA2 PO; +TRAZ100T2 PO
[2018-09-24] MEDS ORDERED: FUROSEMIDE 40 MG/4 ML VIAL IV ONE (11:45)
[2018-09-24] MEDS ORDERED: ONDANSETRON HCL 4 MG/2 ML VIAL IV ONE (12:00)
[2018-09-24] MEDS ORDERED: MORPHINE SULFATE 4 MG/ML SYR/VIAL IV ONE (12:00)
[2018-09-24 12:12] LABS: Basophils # (auto) 0 uL; Basophils % (auto) 0.5 % (0.0-2.0); Eosinophils # (auto) 0.1 uL; Eosinophils % (auto) 0.9 % (0.0-7.0); Hematocrit 41.9 % (41.0-53.0); Hemoglobin 13.6 g/dL (13.5-17.5); Lymphocytes # (auto) 1.3 uL; Lymphocytes % (auto) 16.5 % (10.0-50.0); Mean Corpuscular Hemoglobin 29.5 pg (28.0-32.0); Mean Corpuscular Hgb Conc. 32.4 g/dL (32.0-36.0); Monocytes # (auto) 0.5 uL; Monocytes % (auto) 6.8 % (0.0-12.0); Neutrophils # (auto) 5.8 uL; Neutrophils % (auto) 75.3 % (37.0-80.0); Platelet Count (auto) 158 10^3/uL (140-450); Red Blood Cells 4.61 10^6/uL (4.5-5.90); White Blood Cell 7.7 10^3/uL (4.4-10.8)
[2018-09-24 13:27] LABS: Urine Bacteria NONE SEEN /hpf (None Seen); Urine Blood Negative /uL (Negative); Urine Specific Gravity 1.014 (1.001-1.035); Urine WBC <1 /hpf (0 - 3)
[2018-09-24 13:32] LABS: Albumin 2.8 g/dL (3.4-5.0); Anion Gap 8 (5-15); Blood Urea Nitrogen 15 mg/dL (7-18); Calcium 8.5 mg/dL (8.5-10.1); Carbon Dioxide 24 mmol/L (21-32); Chloride 113 mmol/L (98-107); Glucose 129 mg/dL (74-106); Magnesium 2.3 mg/dL (1.6-2.6); Potassium 3.7 mmol/L (3.5-5.1); Sodium 145 mmol/L (136-145)
[2018-09-24 13:38] LABS: Alanine Aminotransferase 17 U/L (16-61); Alkaline Phosphatase 90 U/L (45-117); Aspartate Aminotransferase 12 U/L (15-37); BUN/Creatinine Ratio 12.9; Bilirubin, Total 0.3 mg/dL (0.2-1.0); GFR African American 82 mL/min; GFR Non-African American 67 mL/min; Total Protein 7.1 g/dL (6.4-8.2)
[2018-09-24 16:06] VITALS: BP 184/73
== END 2018-09-24 16:36 | disposition home or self-care (01) ==
LOC: EDBD 10:57 → ER 10:57
DX: I13.0 Hypertensive heart and chronic kidney disease with heart failure and stage 1 through stage 4 chronic kidney disease, or unspecified chronic kidney disease (principal); I50.9 Heart failure, unspecified; E11.22 Type 2 diabetes mellitus with diabetic chronic kidney disease; N18.9 Chronic kidney disease, unspecified; J44.9 Chronic obstructive pulmonary disease, unspecified; K21.9 Gastro-esophageal reflux disease without esophagitis; E78.00 Pure hypercholesterolemia, unspecified; I25.2 Old myocardial infarction; F17.210 Nicotine dependence, cigarettes, uncomplicated; Z90.49 Acquired absence of other specified parts of digestive tract; Z88.8 Allergy status to other drugs, medicaments and biological substances; Z79.82 Long term (current) use of aspirin; Z79.01 Long term (current) use of anticoagulants; Z79.899 Other long term (current) drug therapy
CPT/HCPCS: 36415; 71045; 80053; 81001; 83735; 83880; 84484; 85025; 93005; 94761; 96374; 96375; 99284; J1940; J2270; J2405

== ENCOUNTER 2018-09-28 21:54 | Inpatient (IN) | payer OTHER, MEDICAID ==
[~2018-09-28] VITALS: Ht 172.7 cm; Wt 161.4 kg
[2018-09-28 21:30] VITALS: BP 155/90
[2018-09-28 22:00] VITALS: BP 155/90
[2018-09-28] MEDS ORDERED: ONDANSETRON HCL 4 MG/2 ML VIAL IV PRN (23:15)
[2018-09-28] MEDS ORDERED: MORPHINE SULF INJ 2 MG/ML SYRINGE 1ML IV PRN (23:15)
[2018-09-28] MEDS ORDERED: ACETAMINOPHEN 500 MG TAB PO PRN (23:15)
[2018-09-28] MEDS ORDERED: FUROSEMIDE 20 MG/2 ML VIAL IV ONE (23:15)
[2018-09-28] MEDS ORDERED: NITROGLYCERIN 0.4 MG SL TAB SL PRN (23:15)
[2018-09-28] MEDS ORDERED: TEMAZEPAM 15 MG CAP PO PRN (23:15)
[2018-09-28] MEDS ORDERED: ALBUTEROL SULF 2.5 MG/0.5ML(0.5%) NEB SOLN NEB PRN (23:30)
[2018-09-28] MEDS ORDERED: IPRATROPIUM BROM 0.5 MG/2.5ML INH SOL NEB PRN (23:30)
[2018-09-29] VITALS (7 sets, daily range): BP systolic 125–164; BP diastolic 71–92
[2018-09-29] MEDS ORDERED: HYDROcodone-ACET 5/325MG TAB PO PRN (00:45)
[2018-09-29] MEDS: MORPHINE SULF INJ 2 MG/ML SYRINGE 1ML IV PRN ×5 (01:08→22:23)
[2018-09-29 05:52] LABS: Basophils # (auto) 0 uL; Basophils % (auto) 0.5 % (0.0-2.0); Eosinophils # (auto) 0.1 uL; Eosinophils % (auto) 1.6 % (0.0-7.0); Hematocrit 40.4 % (41.0-53.0); Hemoglobin 13.4 g/dL (13.5-17.5); Lymphocytes # (auto) 2.5 uL; Lymphocytes % (auto) 30.7 % (10.0-50.0); Mean Corpuscular Hgb Conc. 33.1 g/dL (32.0-36.0); Mean Corpuscular Volume 90.8 fL (80.0-100.0); Monocytes # (auto) 0.8 uL; Monocytes % (auto) 9.9 % (0.0-12.0); Neutrophils # (auto) 4.6 uL; Neutrophils % (auto) 57.3 % (37.0-80.0); Platelet Count (auto) 148 10^3/uL (140-450); Red Blood Cells 4.45 10^6/uL (4.5-5.90); Red Cell Distribution Width 13.7 % (11.8-14.3); White Blood Cell 8.1 10^3/uL (4.4-10.8)
[2018-09-29] MEDS: buPROPion HCL 75 MG TAB PO SCH ×2 (06:11→18:08)
[2018-09-29 06:35] LABS: Calcium 8.3 mg/dL (8.5-10.1); Potassium 3.7 mmol/L (3.5-5.1)
[2018-09-29 06:37] LABS: BUN/Creatinine Ratio 12.4
[2018-09-29] MEDS: CLOPIDOGREL BISULFATE 75 MG TAB PO SCH (09:24)
[2018-09-29] MEDS: PANTOPRAZOLE 40 MG TAB PO SCH (09:25)
[2018-09-29] MEDS: ISOSORBIDE MONONITRATE ER 60 MG TAB PO SCH (09:25)
[2018-09-29] MEDS: METOPROLOL TARTRATE 25 MG TAB PO SCH ×2 (09:25→22:22)
[2018-09-29] MEDS: BENAZEPRIL HCL 10 MG TAB PO SCH (09:26)
[2018-09-29] MEDS ORDERED: METOPROLOL TARTRATE 25 MG TAB PO SCH (10:00)
[2018-09-29] MEDS ORDERED: FUROSEMIDE 20 MG TAB PO SCH (10:00)
[2018-09-29] MEDS ORDERED: METOLAZONE 5 MG TAB PO ONE (10:15)
[2018-09-29] MEDS: POTASSIUM CHL 20 Meq TABLET PO SCH ×2 (14:25→22:17)
[2018-09-29] MEDS: FUROSEMIDE 40 MG/4 ML VIAL IV SCH (18:07)
[2018-09-29] MEDS: ATORVASTATIN 20 MG TAB PO SCH (22:17)
[2018-09-29] MEDS: traZODone HCL 50 MG TAB PO SCH (22:17)
[2018-09-30] MEDS: MORPHINE SULF INJ 2 MG/ML SYRINGE 1ML IV PRN ×3 (04:33→17:27)
[2018-09-30 04:48] VITALS: BP 126/55
[2018-09-30] MEDS: FUROSEMIDE 40 MG/4 ML VIAL IV SCH ×2 (06:33→17:27)
[2018-09-30] MEDS: buPROPion HCL 75 MG TAB PO SCH ×2 (06:34→19:54)
[2018-09-30] MEDS: POTASSIUM CHL 20 Meq TABLET PO SCH ×3 (06:34→22:07)
[2018-09-30 07:13] LABS: BUN/Creatinine Ratio 10.7; Calcium 8.9 mg/dL (8.5-10.1)
[2018-09-30 08:00] VITALS: BP 158/89
[2018-09-30 08:50] VITALS: BP 158/89
[2018-09-30] MEDS: PANTOPRAZOLE 40 MG TAB PO SCH (09:17)
[2018-09-30] MEDS: CLOPIDOGREL BISULFATE 75 MG TAB PO SCH (09:18)
[2018-09-30] MEDS: BENAZEPRIL HCL 10 MG TAB PO SCH (09:18)
[2018-09-30] MEDS: ISOSORBIDE MONONITRATE ER 60 MG TAB PO SCH (09:18)
[2018-09-30] MEDS: METOPROLOL TARTRATE 25 MG TAB PO SCH ×2 (09:19→22:00)
[2018-09-30] MEDS ORDERED: METOLAZONE 5 MG TAB PO SCH (10:00)
[2018-09-30 13:14] VITALS: BP_SYST 122; BP_SYST 136; BP_DIAS 74; BP_DIAS 79
[2018-09-30 17:00] VITALS: BP 128/74
[2018-09-30 21:00] VITALS: BP 112/76
[2018-09-30] MEDS: traZODone HCL 50 MG TAB PO SCH (22:08)
[2018-09-30] MEDS: ATORVASTATIN 20 MG TAB PO SCH (22:08)
[2018-10-01] MEDS: MORPHINE SULF INJ 2 MG/ML SYRINGE 1ML IV PRN ×2 (00:29→06:34)
[2018-10-01 05:00] VITALS: BP 150/77
[2018-10-01] MEDS: FUROSEMIDE 40 MG/4 ML VIAL IV SCH (06:33)
[2018-10-01] MEDS: buPROPion HCL 75 MG TAB PO SCH (06:34)
[2018-10-01 07:48] LABS: BUN/Creatinine Ratio 12.1; Calcium 9.2 mg/dL (8.5-10.1); Potassium 4.6 mmol/L (3.5-5.1)
[2018-10-01 08:00] VITALS: BP 150/84
[2018-10-01 09:00] VITALS: BP 150/84
[2018-10-01] MEDS: PANTOPRAZOLE 40 MG TAB PO SCH (09:34)
[2018-10-01] MEDS: BENAZEPRIL HCL 10 MG TAB PO SCH (09:34)
[2018-10-01] MEDS: METOPROLOL TARTRATE 25 MG TAB PO SCH (09:35)
[2018-10-01] MEDS: ISOSORBIDE MONONITRATE ER 60 MG TAB PO SCH (09:35)
[2018-10-01] MEDS: POTASSIUM CHL 20 Meq TABLET PO SCH (09:35)
[2018-10-01] MEDS: CLOPIDOGREL BISULFATE 75 MG TAB PO SCH (09:35)
[2018-10-01] MEDS ORDERED: HYDR-4296 PO (10:11)
[2018-10-01 10:46] VITALS: BP 150/84
[2018-10-01 11:00] VITALS: BP 150/84
[2018-10-01] MEDS ORDERED: hydrALAZINE HCL 25 MG TAB PO SCH (14:00)
[2018-10-17] MEDS ORDERED: GABA100C9 PO (02:42)
[2018-10-22] MEDS ORDERED: RANO500T PO (08:57)
== END 2018-10-01 12:55 | disposition home or self-care (01) | DRG 194 ==
LOC: TELE-CENTR 21:54
PROVIDERS: ADMIT Nurse Practitioner Family; ATTEND Internal Medicine
DX: I11.0 Hypertensive heart disease with heart failure (principal); E66.01 Morbid (severe) obesity due to excess calories; Z68.43 Body mass index [BMI] 50.0-59.9, adult; F11.20 Opioid dependence, uncomplicated; E78.5 Hyperlipidemia, unspecified; F32.9 Major depressive disorder, single episode, unspecified; F41.9 Anxiety disorder, unspecified; G47.00 Insomnia, unspecified; I50.33 Acute on chronic diastolic (congestive) heart failure; Z83.6 Family history of other diseases of the respiratory system; Z81.1 Family history of alcohol abuse and dependence; Z81.8 Family history of other mental and behavioral disorders; G89.29 Other chronic pain; Z82.3 Family history of stroke; Z83.3 Family history of diabetes mellitus; Z82.49 Family history of ischemic heart disease and other diseases of the circulatory system; Z80.9 Family history of malignant neoplasm, unspecified; Z79.82 Long term (current) use of aspirin; Z88.8 Allergy status to other drugs, medicaments and biological substances; I25.10 Atherosclerotic heart disease of native coronary artery without angina pectoris; J44.9 Chronic obstructive pulmonary disease, unspecified; T50.2X5A Adverse effect of carbonic-anhydrase inhibitors, benzothiadiazides and other diuretics, initial encounter; Y92.89 Other specified places as the place of occurrence of the external cause; Z79.02 Long term (current) use of antithrombotics/antiplatelets; Z79.899 Other long term (current) drug therapy; Z86.73 Personal history of transient ischemic attack (TIA), and cerebral infarction without residual deficits; Z95.5 Presence of coronary angioplasty implant and graft
CPT/HCPCS: 36415; 71045; 80048; 83880; 84484; 85025; 87081; G0378; J2405

== ENCOUNTER 2018-10-24 10:40 | Emergency (ER) | payer OTHER, MEDICAID ==
[~2018-10-24] VITALS: Ht 172.7 cm; Wt 167.8 kg
[~2018-10-24 10:40] MED LIST changes: -BEN10T PO; -DOXE10CA PO; -FURO40TA4 PO; +GABA100C9 PO; +HYDR-4296 PO; -METO25TA5 PO; -PANT40TA2 PO; +RANO500T PO
[2018-10-24 11:08] VITALS: BP 165/79
[2018-10-24] MEDS ORDERED: HYDROcodone-ACET 10/325MG TAB ONE (11:42)
[2018-10-24] MEDS ORDERED: HYDROcodone-ACET 10/325MG TAB PO ONE (11:45)
== END 2018-10-24 12:07 | disposition home or self-care (01) ==
LOC: ER 10:40 → EDUNIT# 10:40 → EDBD 10:40 → ER 12:07
DX: R07.89 Other chest pain (principal); F17.210 Nicotine dependence, cigarettes, uncomplicated; I13.0 Hypertensive heart and chronic kidney disease with heart failure and stage 1 through stage 4 chronic kidney disease, or unspecified chronic kidney disease; E11.22 Type 2 diabetes mellitus with diabetic chronic kidney disease; N18.9 Chronic kidney disease, unspecified; I25.2 Old myocardial infarction; Z90.49 Acquired absence of other specified parts of digestive tract; Z90.89 Acquired absence of other organs; Z98.61 Coronary angioplasty status; Z79.899 Other long term (current) drug therapy
CPT/HCPCS: 93005

== ENCOUNTER 2018-11-19 22:04 | Inpatient (IN) | payer OTHER, MEDICAID ==
[~2018-11-19] VITALS: Ht 167.6 cm; Wt 166.7 kg
[2018-11-19 22:30] VITALS: BP_SYST 142; BP_SYST 147; BP_DIAS 80
[2018-11-19] MEDS ORDERED: NITROGLYCERIN 0.4 MG SL TAB SL PRN (22:30)
[2018-11-19] MEDS ORDERED: ACETAMINOPHEN 325 MG TAB PO PRN (22:30)
[2018-11-19] MEDS ORDERED: MORPHINE SULF INJ 2 MG/ML SYRINGE 1ML IV PRN (22:30)
[2018-11-19] MEDS ORDERED: ONDANSETRON HCL 4 MG/2 ML VIAL IV PRN (22:30)
[2018-11-19] MEDS ORDERED: IPRATROPIUM BROM 0.5 MG/2.5ML INH SOL NEB PRN (22:30)
[2018-11-19 23:31] LABS: Basophils # (auto) 0.1 uL; Basophils % (auto) 1.5 % (0.0-2.0); Eosinophils # (auto) 0.1 uL; Hematocrit 41.3 % (41.0-53.0); Hemoglobin 13.8 g/dL (13.5-17.5); Lymphocytes # (auto) 2.2 uL; Lymphocytes % (auto) 24.6 % (10.0-50.0); Mean Corpuscular Hemoglobin 30.2 pg (28.0-32.0); Mean Corpuscular Hgb Conc. 33.5 g/dL (32.0-36.0); Mean Corpuscular Volume 90.2 fL (80.0-100.0); Monocytes # (auto) 0.7 uL; Monocytes % (auto) 7.7 % (0.0-12.0); Neutrophils # (auto) 5.9 uL; Neutrophils % (auto) 65.2 % (37.0-80.0); Platelet Count (auto) 151 10^3/uL (140-450); Red Blood Cells 4.58 10^6/uL (4.5-5.90); Red Cell Distribution Width 14.2 % (11.8-14.3); White Blood Cell 9.1 10^3/uL (4.4-10.8)
[2018-11-19 23:49] LABS: Anion Gap 9 (5-15); Blood Urea Nitrogen 20 mg/dL (7-18); Calcium 8.6 mg/dL (8.5-10.1); Carbon Dioxide 23 mmol/L (21-32); Chloride 114 mmol/L (98-107); GFR African American 70 mL/min; GFR Non-African American 58 mL/min; Glucose 141 mg/dL (74-106); Potassium 4.1 mmol/L (3.5-5.1); Sodium 146 mmol/L (136-145)
[2018-11-19] MEDS: cefTRIAXone 1GM/50ML D5W 50 ML IV SCH (23:58)
[2018-11-19] MEDS: MORPHINE SULFATE 4 MG/ML SYR/VIAL IV PRN (23:59)
[2018-11-20] VITALS (8 sets, daily range): BP systolic 117–173; BP diastolic 63–88
[2018-11-20] MEDS ORDERED: ALBUTEROL SULF 2.5 MG/0.5ML(0.5%) NEB SOLN NEB SCH
[2018-11-20] MEDS: AZITHROMYCIN 500MG/ 250ML 250 ML IV SCH ×2 (02:02→09:52)
[2018-11-20] MEDS: HYDROcodone-ACET 5/325MG TAB PO PRN (02:23)
[2018-11-20] MEDS ORDERED: ALBUTEROL SULF 2.5 MG/0.5ML(0.5%) NEB SOLN NEB PRN (03:00)
[2018-11-20] MEDS: MORPHINE SULFATE 4 MG/ML SYR/VIAL IV PRN ×5 (04:13→20:44)
[2018-11-20] MEDS: SODIUM CHLOR 0.9% PF (SALINE LOCK) 10ML VIAL/SYR IV SCH ×3 (05:38→22:07)
[2018-11-20] MEDS: ALBUTEROL SULF 2.5 MG/0.5ML(0.5%) NEB SOLN NEB SCH ×3 (06:52→19:49)
[2018-11-20] MEDS: IPRATROPIUM BROM 0.5 MG/2.5ML INH SOL NEB SCH ×3 (06:52→19:49)
[2018-11-20] MEDS: LABETALOL HCL 5 MG/ML ML 20ML VIAL IV PRN (06:59)
[2018-11-20] MEDS: cefTRIAXone 1GM/50ML D5W 50 ML IV SCH (08:46)
[2018-11-20] MEDS: CLOPIDOGREL BISULFATE 75 MG TAB PO SCH (09:52)
[2018-11-20] MEDS: ASPirin 81 mg TAB PO SCH (09:52)
[2018-11-20] MEDS: RANOLAZINE ER 500 MG TAB PO SCH ×2 (09:52→22:08)
[2018-11-20] MEDS: METOPROLOL TARTRATE 25 MG TAB PO SCH ×2 (09:53→22:00)
[2018-11-20] MEDS: ENALAPRIL MALEATE 2.5 MG TAB PO SCH (09:54)
[2018-11-20] MEDS: ISOSORBIDE MONONITRATE ER 60 MG TAB PO SCH (09:54)
[2018-11-20] MEDS ORDERED: FUROSEMIDE 20 MG TAB PO ONE (11:00)
[2018-11-20] MEDS: FUROSEMIDE 20 MG TAB PO SCH (17:34)
[2018-11-20] MEDS: POTASSIUM CHLORIDE 8 MEQ TAB PO SCH (22:07)
[2018-11-20] MEDS: traZODone HCL 50 MG TAB PO PRN (22:08)
[2018-11-21] MEDS: MORPHINE SULFATE 4 MG/ML SYR/VIAL IV PRN ×5 (02:49→22:12)
[2018-11-21 05:14] VITALS: BP 145/67
[2018-11-21] MEDS: FUROSEMIDE 20 MG TAB PO SCH (05:36)
[2018-11-21 06:11] LABS: Basophils # (auto) 0 uL; Basophils % (auto) 0.3 % (0.0-2.0); Eosinophils # (auto) 0.2 uL; Eosinophils % (auto) 2.2 % (0.0-7.0); Hematocrit 39.5 % (41.0-53.0); Lymphocytes % (auto) 25.7 % (10.0-50.0); Mean Corpuscular Hemoglobin 30.5 pg (28.0-32.0); Mean Corpuscular Hgb Conc. 32.9 g/dL (32.0-36.0); Mean Corpuscular Volume 92.8 fL (80.0-100.0); Monocytes # (auto) 0.6 uL; Neutrophils # (auto) 4.9 uL; Neutrophils % (auto) 63.8 % (37.0-80.0); Platelet Count (auto) 140 10^3/uL (140-450); Red Blood Cells 4.25 10^6/uL (4.5-5.90); Red Cell Distribution Width 14.3 % (11.8-14.3); White Blood Cell 7.7 10^3/uL (4.4-10.8)
[2018-11-21 06:26] LABS: Chloride 113 mmol/L (98-107); Potassium 4.2 mmol/L (3.5-5.1); Sodium 145 mmol/L (136-145)
[2018-11-21 06:38] LABS: Alanine Aminotransferase 19 U/L (16-61); Alkaline Phosphatase 72 U/L (45-117); Anion Gap 3 (5-15); Aspartate Aminotransferase 16 U/L (15-37); BUN/Creatinine Ratio 15.4; Bilirubin, Total 0.6 mg/dL (0.2-1.0); Blood Urea Nitrogen 21 mg/dL (7-18); Calcium 8.5 mg/dL (8.5-10.1); Carbon Dioxide 29 mmol/L (21-32); GFR African American 68 mL/min; GFR Non-African American 56 mL/min; Glucose 87 mg/dL (74-106); Total Protein 6.9 g/dL (6.4-8.2)
[2018-11-21] MEDS: IPRATROPIUM BROM 0.5 MG/2.5ML INH SOL NEB SCH ×3 (06:53→18:23)
[2018-11-21] MEDS: ALBUTEROL SULF 2.5 MG/0.5ML(0.5%) NEB SOLN NEB SCH ×3 (06:53→18:23)
[2018-11-21 09:00] VITALS: BP 142/78
[2018-11-21] MEDS: ASPirin 81 mg TAB PO SCH (09:25)
[2018-11-21] MEDS: POTASSIUM CHLORIDE 8 MEQ TAB PO SCH (09:25)
[2018-11-21] MEDS: AZITHROMYCIN 250 MG TAB PO SCH (09:25)
[2018-11-21] MEDS: cefTRIAXone 1GM/50ML D5W 50 ML IV SCH (09:25)
[2018-11-21] MEDS: CLOPIDOGREL BISULFATE 75 MG TAB PO SCH (09:25)
[2018-11-21] MEDS: ISOSORBIDE MONONITRATE ER 60 MG TAB PO SCH (09:26)
[2018-11-21] MEDS: ENALAPRIL MALEATE 2.5 MG TAB PO SCH (09:27)
[2018-11-21] MEDS: RANOLAZINE ER 500 MG TAB PO SCH ×2 (09:36→22:08)
[2018-11-21] MEDS: METOPROLOL TARTRATE 25 MG TAB PO SCH ×2 (09:36→22:00)
[2018-11-21 13:00] VITALS: BP 147/85
[2018-11-21] MEDS: SODIUM CHLOR 0.9% PF (SALINE LOCK) 10ML VIAL/SYR IV SCH ×3 (13:35→22:08)
[2018-11-21 17:00] VITALS: BP 141/80
[2018-11-21 20:00] VITALS: BP 142/78
[2018-11-21 22:00] VITALS: BP 150/81
[2018-11-21] MEDS: traZODone HCL 50 MG TAB PO PRN (23:09)
[2018-11-22] MEDS: MORPHINE SULFATE 4 MG/ML SYR/VIAL IV PRN ×5 (04:49→23:23)
[2018-11-22 05:00] VITALS: BP 160/91
[2018-11-22] MEDS: SODIUM CHLOR 0.9% PF (SALINE LOCK) 10ML VIAL/SYR IV SCH ×3 (06:00→21:37)
[2018-11-22] MEDS: ALBUTEROL SULF 2.5 MG/0.5ML(0.5%) NEB SOLN NEB SCH ×3 (07:35→19:19)
[2018-11-22] MEDS: IPRATROPIUM BROM 0.5 MG/2.5ML INH SOL NEB SCH ×3 (07:35→19:19)
[2018-11-22 09:00] VITALS: BP 145/61
[2018-11-22] MEDS: CLOPIDOGREL BISULFATE 75 MG TAB PO SCH (09:42)
[2018-11-22] MEDS: ASPirin 81 mg TAB PO SCH (09:42)
[2018-11-22] MEDS: cefTRIAXone 1GM/50ML D5W 50 ML IV SCH (09:42)
[2018-11-22] MEDS: AZITHROMYCIN 250 MG TAB PO SCH (09:42)
[2018-11-22] MEDS: RANOLAZINE ER 500 MG TAB PO SCH ×2 (09:42→21:38)
[2018-11-22] MEDS: METOPROLOL TARTRATE 25 MG TAB PO SCH ×2 (09:43→21:37)
[2018-11-22] MEDS: ISOSORBIDE MONONITRATE ER 60 MG TAB PO SCH (09:43)
[2018-11-22] MEDS: ENALAPRIL MALEATE 2.5 MG TAB PO SCH (09:43)
[2018-11-22] MEDS: LABETALOL HCL 5 MG/ML ML 20ML VIAL IV PRN (10:54)
[2018-11-22] MEDS ORDERED: amLODIPine BESYLATE 5 MG TAB PO ONE (11:45)
[2018-11-22 14:05] VITALS: BP 123/72
[2018-11-22 16:42] VITALS: BP 159/86
[2018-11-22] MEDS: traZODone HCL 50 MG TAB PO PRN (21:38)
[2018-11-22 23:44] VITALS: BP 148/79
[2018-11-23] VITALS (8 sets, daily range): BP systolic 140–176; BP diastolic 54–97
[2018-11-23] MEDS: MORPHINE SULFATE 4 MG/ML SYR/VIAL IV PRN ×5 (04:24→21:29)
[2018-11-23] MEDS: hydrALAZINE HCL 25 MG TAB PO PRN ×2 (05:14→12:09)
[2018-11-23] MEDS: SODIUM CHLOR 0.9% PF (SALINE LOCK) 10ML VIAL/SYR IV SCH ×3 (05:52→21:28)
[2018-11-23 05:54] LABS: BUN/Creatinine Ratio 12.9; Calcium 8.6 mg/dL (8.5-10.1)
[2018-11-23] MEDS: ALBUTEROL SULF 2.5 MG/0.5ML(0.5%) NEB SOLN NEB SCH ×3 (07:29→18:14)
[2018-11-23] MEDS: IPRATROPIUM BROM 0.5 MG/2.5ML INH SOL NEB SCH ×3 (07:29→18:14)
[2018-11-23] MEDS: AZITHROMYCIN 250 MG TAB PO SCH (09:17)
[2018-11-23] MEDS: CLOPIDOGREL BISULFATE 75 MG TAB PO SCH (09:17)
[2018-11-23] MEDS: cefTRIAXone 1GM/50ML D5W 50 ML IV SCH (09:17)
[2018-11-23] MEDS: amLODIPine BESYLATE 5 MG TAB PO SCH (09:17)
[2018-11-23] MEDS: ISOSORBIDE MONONITRATE ER 60 MG TAB PO SCH (09:18)
[2018-11-23] MEDS: RANOLAZINE ER 500 MG TAB PO SCH ×2 (09:18→21:28)
[2018-11-23] MEDS: ASPirin 81 mg TAB PO SCH (09:18)
[2018-11-23] MEDS: METOPROLOL TARTRATE 25 MG TAB PO SCH ×2 (09:18→22:36)
[2018-11-23] MEDS: LABETALOL HCL 5 MG/ML ML 20ML VIAL IV PRN (10:57)
[2018-11-23] MEDS ORDERED: IOHEXOL 350 MG/ML 100ML IJ ONE (15:41)
[2018-11-23] MEDS: traZODone HCL 50 MG TAB PO PRN (22:37)
[2018-11-24] MEDS: MORPHINE SULFATE 4 MG/ML SYR/VIAL IV PRN ×6 (02:05→22:04)
[2018-11-24 05:01] VITALS: BP 144/77
[2018-11-24] MEDS: SODIUM CHLOR 0.9% PF (SALINE LOCK) 10ML VIAL/SYR IV SCH ×3 (06:04→22:13)
[2018-11-24] MEDS: ALBUTEROL SULF 2.5 MG/0.5ML(0.5%) NEB SOLN NEB SCH ×3 (07:23→19:46)
[2018-11-24] MEDS: IPRATROPIUM BROM 0.5 MG/2.5ML INH SOL NEB SCH ×3 (07:23→19:46)
[2018-11-24 09:00] VITALS: BP 156/94
[2018-11-24] MEDS: METOPROLOL TARTRATE 25 MG TAB PO SCH ×2 (10:00→22:00)
[2018-11-24] MEDS ORDERED: ENOXAPARIN SOD 60 MG/0.6 ML SYRINGE SC SCH (10:00)
[2018-11-24] MEDS: cefTRIAXone 1GM/50ML D5W 50 ML IV SCH (10:04)
[2018-11-24] MEDS: ISOSORBIDE MONONITRATE ER 60 MG TAB PO SCH (10:04)
[2018-11-24] MEDS: AZITHROMYCIN 250 MG TAB PO SCH (10:04)
[2018-11-24] MEDS: ASPirin 81 mg TAB PO SCH (10:05)
[2018-11-24] MEDS: CLOPIDOGREL BISULFATE 75 MG TAB PO SCH (10:05)
[2018-11-24] MEDS: RANOLAZINE ER 500 MG TAB PO SCH ×2 (10:05→22:04)
[2018-11-24] MEDS: amLODIPine BESYLATE 5 MG TAB PO SCH (10:06)
[2018-11-24] MEDS: hydrALAZINE HCL 25 MG TAB PO PRN (12:45)
[2018-11-24 13:00] VITALS: BP 155/69
[2018-11-24 17:00] VITALS: BP 132/74
[2018-11-24] MEDS: HYDROcodone-ACET 5/325MG TAB PO PRN ×2 (19:47→19:48)
[2018-11-24 22:00] VITALS: BP 146/80
[2018-11-24] MEDS: traZODone HCL 50 MG TAB PO PRN (22:10)
[2018-11-25] MEDS: MORPHINE SULFATE 4 MG/ML SYR/VIAL IV PRN ×3 (02:06→09:58)
[2018-11-25 05:38] VITALS: BP 130/72
[2018-11-25] MEDS: SODIUM CHLOR 0.9% PF (SALINE LOCK) 10ML VIAL/SYR IV SCH ×2 (06:01→14:09)
[2018-11-25] MEDS: ALBUTEROL SULF 2.5 MG/0.5ML(0.5%) NEB SOLN NEB SCH ×2 (07:13→12:00)
[2018-11-25] MEDS: IPRATROPIUM BROM 0.5 MG/2.5ML INH SOL NEB SCH ×2 (07:13→12:00)
[2018-11-25 09:09] VITALS: BP 141/81
[2018-11-25] MEDS: cefTRIAXone 1GM/50ML D5W 50 ML IV SCH (09:24)
[2018-11-25] MEDS: CLOPIDOGREL BISULFATE 75 MG TAB PO SCH (09:25)
[2018-11-25] MEDS: ISOSORBIDE MONONITRATE ER 60 MG TAB PO SCH (09:25)
[2018-11-25] MEDS: AZITHROMYCIN 250 MG TAB PO SCH (09:26)
[2018-11-25] MEDS: METOPROLOL TARTRATE 25 MG TAB PO SCH (09:27)
[2018-11-25] MEDS: amLODIPine BESYLATE 5 MG TAB PO SCH (09:27)
[2018-11-25] MEDS: ASPirin 81 mg TAB PO SCH (09:27)
[2018-11-25] MEDS: RANOLAZINE ER 500 MG TAB PO SCH (09:58)
[2018-11-25] MEDS ORDERED: ENOXAPARIN SOD 40 MG/0.4 ML SYRINGE SC SCH (10:00)
[2018-11-25 13:00] VITALS: BP 152/76
[2018-11-25] MEDS ORDERED: KETOROLAC TROMETH 30 MG/ML 1ML VIAL IV PRN (13:00)
== END 2018-11-25 15:30 | disposition home or self-care (01) | DRG 291 ==
LOC: TELE-WESTW 22:04
PROVIDERS: ADMIT Nurse Practitioner Acute Care; ATTEND Internal Medicine
DX: I13.0 Hypertensive heart and chronic kidney disease with heart failure and stage 1 through stage 4 chronic kidney disease, or unspecified chronic kidney disease (principal); I50.43 Acute on chronic combined systolic (congestive) and diastolic (congestive) heart failure; J96.21 Acute and chronic respiratory failure with hypoxia; J45.901 Unspecified asthma with (acute) exacerbation; J44.1 Chronic obstructive pulmonary disease with (acute) exacerbation; J44.0 Chronic obstructive pulmonary disease with (acute) lower respiratory infection; I16.9 Hypertensive crisis, unspecified; F11.20 Opioid dependence, uncomplicated; Z68.43 Body mass index [BMI] 50.0-59.9, adult; J98.11 Atelectasis; N17.9 Acute kidney failure, unspecified; J20.9 Acute bronchitis, unspecified; N18.3 Chronic kidney disease, stage 3 (moderate); I25.10 Atherosclerotic heart disease of native coronary artery without angina pectoris; E66.01 Morbid (severe) obesity due to excess calories; E78.5 Hyperlipidemia, unspecified; G47.33 Obstructive sleep apnea (adult) (pediatric); G89.4 Chronic pain syndrome; I25.118 Atherosclerotic heart disease of native coronary artery with other forms of angina pectoris; I27.20 Pulmonary hypertension, unspecified; G47.00 Insomnia, unspecified; Z86.73 Personal history of transient ischemic attack (TIA), and cerebral infarction without residual deficits; Z95.5 Presence of coronary angioplasty implant and graft; Z79.899 Other long term (current) drug therapy; Z79.82 Long term (current) use of aspirin; Z79.02 Long term (current) use of antithrombotics/antiplatelets; I25.2 Old myocardial infarction; Z81.8 Family history of other mental and behavioral disorders; Z82.3 Family history of stroke; Z83.3 Family history of diabetes mellitus; Z82.5 Family history of asthma and other chronic lower respiratory diseases; Z82.49 Family history of ischemic heart disease and other diseases of the circulatory system
CPT/HCPCS: 36415; 36600; 71045; 71046; 71275; 78582; 80048; 80053; 82805; 83036; 83880; 84443; 84484; 85025; 85379; 87804; 93306; 93970; 94640; G0378; J0696; J2405

== ENCOUNTER 2019-07-28 10:41 | Inpatient (IN) | payer OTHER, MEDICAID ==
[~2019-07-28] VITALS: Ht 175.3 cm; Wt 171.4 kg
[~2019-07-28 10:41] MED LIST changes: -TRAZ100T2 PO; +TRAZ100T3 PO
[2019-07-28] MEDS ORDERED: MORPHINE SULFATE 4 MG/ML SYR/VIAL IV ONE (11:00)
[2019-07-28] MEDS ORDERED: ONDANSETRON HCL 4 MG/2 ML VIAL IV ONE (11:00)
[2019-07-28 11:31] LABS: Basophils # (auto) 0 10 ^3/uL (0-0.2); Basophils % (auto) 0.5 % (0.0-2.0); Eosinophils # (auto) 0.1 10 ^3/uL (0-0.8); Hematocrit 45.4 % (41.0-53.0); Hemoglobin 14.8 g/dL (13.5-17.5); Lymphocytes # (auto) 1.4 10 ^3/uL (0.4-5.4); Lymphocytes % (auto) 18.2 % (10.0-50.0); Mean Corpuscular Hemoglobin 29.8 pg (28.0-32.0); Mean Corpuscular Hgb Conc. 32.7 g/dL (32.0-36.0); Monocytes # (auto) 0.5 10 ^3/uL (0-1.3); Monocytes % (auto) 6.5 % (0.0-12.0); Neutrophils # (auto) 5.8 10 ^3/uL (1.6-8.6); Neutrophils % (auto) 73.8 % (37.0-80.0); Nucleated Red Blood Cells % 0.1 %; Platelet Count (auto) 158 10^3/uL (140-450); Red Blood Cells 4.98 10^6/uL (4.5-5.90); Red Cell Distribution Width 14.2 % (11.8-14.3); White Blood Cell 7.8 10^3/uL (4.4-10.8)
[2019-07-28 11:52] LABS: Albumin 3.4 g/dL (3.4-5.0); Anion Gap 2 (5-15); Blood Urea Nitrogen 19 mg/dL (7-18); Calcium 8.5 mg/dL (8.5-10.1); Carbon Dioxide 28 mmol/L (21-32); Chloride 112 mmol/L (98-107); Glucose 112 mg/dL (74-106); Potassium 3.8 mmol/L (3.5-5.1); Sodium 142 mmol/L (136-145)
[2019-07-28 11:58] LABS: Alanine Aminotransferase 17 U/L (16-61); Alkaline Phosphatase 92 U/L (45-117); Aspartate Aminotransferase 13 U/L (15-37); BUN/Creatinine Ratio 13.9; Bilirubin, Total 0.4 mg/dL (0.2-1.0); GFR African American 67 mL/min; GFR Non-African American 55 mL/min; Total Protein 7.6 g/dL (6.4-8.2)
[2019-07-28] MEDS ORDERED: NITROGLYCERIN 0.4 MG SL TAB SL PRN ×3 (14:00→14:30)
[2019-07-28] MEDS ORDERED: MORPHINE SULF INJ 2 MG/ML SYRINGE 1ML IV PRN ×2 (14:00→14:30)
[2019-07-28] MEDS ORDERED: MORPHINE SULF INJ 2 MG/ML SYRINGE 1ML IV ONE (14:15)
[2019-07-28] MEDS ORDERED: HYDROcodone-ACET 5/325MG TAB PO PRN (14:30)
[2019-07-28] MEDS ORDERED: ALUM & MAG HYDROX-SIMETH LIQ(MAALOX) 30 ML PO PRN (14:30)
[2019-07-28] MEDS ORDERED: DOCUSATE SOD 100 MG CAP PO PRN (14:30)
[2019-07-28] MEDS ORDERED: methylPREDNISolone SOD SUCC 125 MG/2 ML VL IV ONE (14:30)
[2019-07-28] MEDS ORDERED: FUROSEMIDE 40 MG/4 ML VIAL IV ONE (14:30)
[2019-07-28 15:33] VITALS: BP 143/99
[2019-07-28 18:00] VITALS: BP 164/72
[2019-07-28] MEDS: FUROSEMIDE 40 MG/4 ML VIAL IV SCH (18:00)
[2019-07-28 18:04] LABS: Urine Bacteria NONE SEEN /hpf (None Seen); Urine Blood Negative /uL (Negative); Urine Hyaline Cast FEW /lpf (0 - 2); Urine Mucus FEW (None Seen); Urine Specific Gravity 1.017 (1.001-1.035); Urine WBC 1 /hpf (0 - 3)
[2019-07-28 18:16] LABS: Amphetamine Screen, Urine NEGATIVE (NEGATIVE); Barbiturate Scree,Urine NEGATIVE (NEGATIVE); Benzodiazephine Screen, Urine NEGATIVE (NEGATIVE); Cannabinoid Screen, Urine NEGATIVE (NEGATIVE); Cocaine Screen, Urine NEGATIVE (NEGATIVE); Opiate Scree,Urine POSITIVE (NEGATIVE); Phencyclidine Screen, Urine NEGATIVE (NEGATIVE)
[2019-07-28 18:42] LABS: Alcohol, Urine < 3.0 mg/dL (0-10)
[2019-07-28] MEDS: IPRATROPIUM BROM 0.5 MG/2.5ML INH SOL NEB SCH ×2 (19:18→22:08)
[2019-07-28] MEDS: ALBUTEROL SULF 2.5 MG/0.5ML(0.5%) NEB SOLN NEB SCH ×2 (19:18→22:08)
[2019-07-28] MEDS: MORPHINE SULF INJ 2 MG/ML SYRINGE 1ML IV PRN (20:52)
[2019-07-28 22:00] VITALS: BP 168/100
[2019-07-28] MEDS: methylPREDNISolone SOD SUCC 40 MG/ML VL IV SCH (22:00)
[2019-07-28] MEDS: ATORVASTATIN 20 MG TAB PO SCH (22:41)
[2019-07-28] MEDS: hydrALAZINE HCL 25 MG TAB PO SCH (22:41)
[2019-07-28] MEDS: GABAPENTIN 100 MG CAP PO SCH (22:41)
[2019-07-28] MEDS: buPROPion HCL 75 MG TAB PO SCH (22:42)
[2019-07-28] MEDS: RANOLAZINE ER 500 MG TAB PO SCH (22:42)
[2019-07-28] MEDS: LORazepam 0.5 MG TAB PO PRN (23:06)
[2019-07-29] MEDS: MORPHINE SULF INJ 2 MG/ML SYRINGE 1ML IV PRN ×6 (01:15→22:29)
[2019-07-29 01:45] VITALS: BP 108/66
[2019-07-29 02:46] LABS: Cholesterol 201 mg/dL (< 200); HDL Cholesterol 45 mg/dL (40-59); LDL Cholesterol 139 mg/dL (< 100); Triglycerides 77 mg/dL (< 150)
[2019-07-29] MEDS: IPRATROPIUM BROM 0.5 MG/2.5ML INH SOL NEB SCH ×6 (02:54→22:01)
[2019-07-29] MEDS: ALBUTEROL SULF 2.5 MG/0.5ML(0.5%) NEB SOLN NEB SCH ×6 (02:54→22:01)
[2019-07-29 05:38] LABS: Basophils # (auto) 0 10 ^3/uL (0-0.2); Basophils % (auto) 0.4 % (0.0-2.0); Eosinophils # (auto) 0 10 ^3/uL (0-0.8); Hematocrit 44.2 % (41.0-53.0); Hemoglobin 14.1 g/dL (13.5-17.5); Lymphocytes # (auto) 0.4 10 ^3/uL (0.4-5.4); Lymphocytes % (auto) 3.9 % (10.0-50.0); Mean Corpuscular Hgb Conc. 31.9 g/dL (32.0-36.0); Mean Corpuscular Volume 91.1 fL (80.0-100.0); Monocytes # (auto) 0.2 10 ^3/uL (0-1.3); Monocytes % (auto) 1.7 % (0.0-12.0); Neutrophils # (auto) 10.7 10 ^3/uL (1.6-8.6); Platelet Count (auto) 153 10^3/uL (140-450); Red Blood Cells 4.85 10^6/uL (4.5-5.90); Red Cell Distribution Width 14.3 % (11.8-14.3); White Blood Cell 11.4 10^3/uL (4.4-10.8)
[2019-07-29] MEDS: hydrALAZINE HCL 25 MG TAB PO SCH ×3 (05:51→22:28)
[2019-07-29] MEDS: FUROSEMIDE 40 MG/4 ML VIAL IV SCH ×2 (05:51→17:41)
[2019-07-29] MEDS: methylPREDNISolone SOD SUCC 40 MG/ML VL IV SCH ×3 (05:51→22:27)
[2019-07-29 05:52] LABS: INR 1.01 (0.9-1.15); Partial Thromboplastin Time 27.3 sec (23.64-32.05)
[2019-07-29 05:54] VITALS: BP 156/83
[2019-07-29 05:56] LABS: Albumin 3.1 g/dL (3.4-5.0); Calcium 8.4 mg/dL (8.5-10.1); Magnesium 2.3 mg/dL (1.6-2.6); Potassium 4.1 mmol/L (3.5-5.1)
[2019-07-29 06:00] LABS: BUN/Creatinine Ratio 19.2; Bilirubin, Total 0.3 mg/dL (0.2-1.0); Phosphorus 3.2 mg/dL (2.5-4.90); Total Protein 7.4 g/dL (6.4-8.2)
[2019-07-29 08:49] VITALS: BP 155/91
[2019-07-29] MEDS: ENOXAPARIN SOD 40 MG/0.4 ML SYRINGE SC SCH (09:47)
[2019-07-29] MEDS: buPROPion HCL 75 MG TAB PO SCH ×2 (09:48→22:29)
[2019-07-29] MEDS: amLODIPine BESYLATE 5 MG TAB PO SCH (09:48)
[2019-07-29] MEDS: GABAPENTIN 100 MG CAP PO SCH ×2 (09:49→22:28)
[2019-07-29] MEDS: RANOLAZINE ER 500 MG TAB PO SCH ×2 (09:49→22:28)
[2019-07-29] MEDS: ASPirin-EC 81 mg tab PO SCH (09:49)
[2019-07-29] MEDS: CLOPIDOGREL BISULFATE 75 MG TAB PO SCH (09:49)
[2019-07-29] MEDS: ISOSORBIDE MONONITRATE ER 60 MG TAB PO SCH (09:49)
[2019-07-29] MEDS: AZITHROMYCIN 500MG/ 250ML 250 ML IV SCH (09:50)
[2019-07-29] MEDS ORDERED: FURO1TAB33 PO (12:42)
[2019-07-29] MEDS ORDERED: GABA800T97 PO (12:42)
[2019-07-29] MEDS ORDERED: NITR0.4S29 SL (12:42)
[2019-07-29] MEDS ORDERED: BENA40TA83 PO (12:42)
[2019-07-29] MEDS ORDERED: METO25TA36 PO (12:42)
[2019-07-29] MEDS ORDERED: TRAZ100T3 PO (12:42)
[2019-07-29] MEDS ORDERED: ISOS30TA4 PO (12:42)
[2019-07-29 17:20] VITALS: BP 118/76
[2019-07-29 22:00] VITALS: BP 141/72
[2019-07-29] MEDS: ATORVASTATIN 20 MG TAB PO SCH (22:28)
[2019-07-29] MEDS: LORazepam 0.5 MG TAB PO PRN (22:44)
[2019-07-30] MEDS: IPRATROPIUM BROM 0.5 MG/2.5ML INH SOL NEB SCH ×6 (02:13→22:26)
[2019-07-30] MEDS: ALBUTEROL SULF 2.5 MG/0.5ML(0.5%) NEB SOLN NEB SCH ×6 (02:15→22:26)
[2019-07-30] MEDS: MORPHINE SULF INJ 2 MG/ML SYRINGE 1ML IV PRN ×6 (02:33→23:03)
[2019-07-30 05:00] VITALS: BP 139/80
[2019-07-30] MEDS: FUROSEMIDE 40 MG/4 ML VIAL IV SCH ×2 (06:06→18:53)
[2019-07-30] MEDS: methylPREDNISolone SOD SUCC 40 MG/ML VL IV SCH ×3 (06:06→22:06)
[2019-07-30] MEDS: hydrALAZINE HCL 25 MG TAB PO SCH ×3 (06:06→22:07)
[2019-07-30 09:00] VITALS: BP 142/65
[2019-07-30] MEDS: AZITHROMYCIN 500MG/ 250ML 250 ML IV SCH (10:47)
[2019-07-30] MEDS: ISOSORBIDE MONONITRATE ER 60 MG TAB PO SCH (10:47)
[2019-07-30] MEDS: ASPirin-EC 81 mg tab PO SCH (10:47)
[2019-07-30] MEDS: GABAPENTIN 100 MG CAP PO SCH ×2 (10:47→22:07)
[2019-07-30] MEDS: amLODIPine BESYLATE 5 MG TAB PO SCH (10:48)
[2019-07-30] MEDS: buPROPion HCL 75 MG TAB PO SCH ×2 (10:48→22:07)
[2019-07-30] MEDS: ENOXAPARIN SOD 40 MG/0.4 ML SYRINGE SC SCH (10:48)
[2019-07-30] MEDS: RANOLAZINE ER 500 MG TAB PO SCH ×2 (10:48→22:07)
[2019-07-30] MEDS: CLOPIDOGREL BISULFATE 75 MG TAB PO SCH (10:48)
[2019-07-30 11:55] VITALS: BP 144/69
[2019-07-30 17:00] VITALS: BP 133/73
[2019-07-30] MEDS: ATORVASTATIN 20 MG TAB PO SCH (22:07)
[2019-07-30 23:23] VITALS: BP 129/92
[2019-07-31] MEDS: LORazepam 0.5 MG TAB PO PRN (00:12)
[2019-07-31] MEDS: ALBUTEROL SULF 2.5 MG/0.5ML(0.5%) NEB SOLN NEB SCH ×3 (02:30→10:14)
[2019-07-31] MEDS: IPRATROPIUM BROM 0.5 MG/2.5ML INH SOL NEB SCH ×3 (02:30→10:14)
[2019-07-31] MEDS: MORPHINE SULF INJ 2 MG/ML SYRINGE 1ML IV PRN ×3 (03:09→12:22)
[2019-07-31 05:00] VITALS: BP 146/73
[2019-07-31] MEDS: methylPREDNISolone SOD SUCC 40 MG/ML VL IV SCH (05:32)
[2019-07-31] MEDS: FUROSEMIDE 40 MG/4 ML VIAL IV SCH (05:32)
[2019-07-31] MEDS: hydrALAZINE HCL 25 MG TAB PO SCH (05:33)
[2019-07-31] MEDS: ISOSORBIDE MONONITRATE ER 60 MG TAB PO SCH (09:47)
[2019-07-31] MEDS: buPROPion HCL 75 MG TAB PO SCH (09:47)
[2019-07-31] MEDS: GABAPENTIN 100 MG CAP PO SCH (09:48)
[2019-07-31] MEDS: amLODIPine BESYLATE 5 MG TAB PO SCH (09:48)
[2019-07-31] MEDS: ASPirin-EC 81 mg tab PO SCH (09:48)
[2019-07-31] MEDS: RANOLAZINE ER 500 MG TAB PO SCH (09:49)
[2019-07-31] MEDS: CLOPIDOGREL BISULFATE 75 MG TAB PO SCH (09:49)
[2019-07-31] MEDS: ENOXAPARIN SOD 40 MG/0.4 ML SYRINGE SC SCH (09:50)
[2019-07-31 09:53] VITALS: BP 149/72
[2019-07-31] MEDS ORDERED: AZITHROMYCIN 250 MG TAB PO SCH (10:00)
[2019-07-31 12:17] VITALS: BP 149/72
[2019-07-31 12:28] VITALS: BP 157/95
== END 2019-07-31 13:12 | disposition short-term general hospital (02) | DRG 291 ==
LOC: EDBD 10:41 → ER 10:41 → TELE 10:42 → TELE-CENTR 18:22
PROVIDERS: ADMIT Hospitalist; ATTEND Family Medicine
DX: I13.0 Hypertensive heart and chronic kidney disease with heart failure and stage 1 through stage 4 chronic kidney disease, or unspecified chronic kidney disease (principal); N17.0 Acute kidney failure with tubular necrosis; J18.9 Pneumonia, unspecified organism; I50.33 Acute on chronic diastolic (congestive) heart failure; J44.1 Chronic obstructive pulmonary disease with (acute) exacerbation; Z68.43 Body mass index [BMI] 50.0-59.9, adult; J44.0 Chronic obstructive pulmonary disease with (acute) lower respiratory infection; I25.118 Atherosclerotic heart disease of native coronary artery with other forms of angina pectoris; N18.2 Chronic kidney disease, stage 2 (mild); E66.01 Morbid (severe) obesity due to excess calories; Z20.828 Contact with and (suspected) exposure to other viral communicable diseases; E11.22 Type 2 diabetes mellitus with diabetic chronic kidney disease; F17.210 Nicotine dependence, cigarettes, uncomplicated; E78.5 Hyperlipidemia, unspecified; F41.9 Anxiety disorder, unspecified; K21.9 Gastro-esophageal reflux disease without esophagitis; G47.33 Obstructive sleep apnea (adult) (pediatric); I27.20 Pulmonary hypertension, unspecified; Z79.82 Long term (current) use of aspirin; Z81.8 Family history of other mental and behavioral disorders; Z82.3 Family history of stroke; Z79.02 Long term (current) use of antithrombotics/antiplatelets; Z82.49 Family history of ischemic heart disease and other diseases of the circulatory system; Z82.5 Family history of asthma and other chronic lower respiratory diseases; Z83.3 Family history of diabetes mellitus; Z86.73 Personal history of transient ischemic attack (TIA), and cerebral infarction without residual deficits; Z95.5 Presence of coronary angioplasty implant and graft; I25.2 Old myocardial infarction
CPT/HCPCS: 36415; 71045; 80053; 80061; 80307; 81001; 83036; 83735; 83880; 84100; 84484; 85025; 85379; 85610; 85730; 87040; 93005; 94640; G0378; J2405

== ENCOUNTER 2019-10-07 14:21 | Inpatient (IN) | payer BC, MEDICAID ==
[~2019-10-07] VITALS: Ht 172.7 cm; Wt 168.0 kg
[~2019-10-07 14:21] MED LIST changes: +BENA40TA83 PO; +FURO1TAB33 PO; -GABA100C9 PO; +GABA800T97 PO; -ISO60SRT PO; +ISOS30TA4 PO; +METO25TA36 PO
[2019-10-07] MEDS ORDERED: cloNIDine HCL 0.1 MG TAB PO ONE ×2 (14:45→23:30)
[2019-10-07 15:59] LABS: Basophils # (auto) 0.1 10 ^3/uL (0-0.2); Basophils % (auto) 0.9 % (0.0-2.0); Eosinophils # (auto) 0 10 ^3/uL (0-0.8); Eosinophils % (auto) 0.5 % (0.0-7.0); Hematocrit 44.2 % (41.0-53.0); Hemoglobin 14.3 g/dL (13.5-17.5); Lymphocytes # (auto) 1.4 10 ^3/uL (0.4-5.4); Lymphocytes % (auto) 15.4 % (10.0-50.0); Mean Corpuscular Hemoglobin 29.7 pg (28.0-32.0); Mean Corpuscular Hgb Conc. 32.2 g/dL (32.0-36.0); Mean Corpuscular Volume 92.1 fL (80.0-100.0); Monocytes # (auto) 0.7 10 ^3/uL (0-1.3); Monocytes % (auto) 7.4 % (0.0-12.0); Neutrophils # (auto) 6.9 10 ^3/uL (1.6-8.6); Neutrophils % (auto) 75.8 % (37.0-80.0); Platelet Count (auto) 154 10^3/uL (140-450); Red Blood Cells 4.81 10^6/uL (4.5-5.90); Red Cell Distribution Width 14.3 % (11.8-14.3); White Blood Cell 9.1 10^3/uL (4.4-10.8)
[2019-10-07 16:16] LABS: Albumin 3.2 g/dL (3.4-5.0); Calcium 8.7 mg/dL (8.5-10.1); Potassium 3.4 mmol/L (3.5-5.1)
[2019-10-07 16:25] LABS: BUN/Creatinine Ratio 12.6; Bilirubin, Total 0.4 mg/dL (0.2-1.0); Total Protein 7.2 g/dL (6.4-8.2)
[2019-10-07 16:39] LABS: INR 0.97 (0.9-1.15); Partial Thromboplastin Time 25.8 sec (23.0-31.2)
[2019-10-07] MEDS ORDERED: cloNIDine HCL 0.1 MG TAB ONE (23:14)
[2019-10-08] MEDS ORDERED: MORPHINE SULF INJ 2 MG/ML SYRINGE 1ML IV PRN (00:30)
[2019-10-08] MEDS ORDERED: ONDANSETRON HCL 4 MG/2 ML VIAL IV PRN (00:30)
[2019-10-08] MEDS ORDERED: cloNIDine HCL 0.1 MG TAB PO PRN (00:30)
[2019-10-08] MEDS ORDERED: ACETAMINOPHEN 325 MG TAB PO PRN (00:30)
[2019-10-08 02:30] VITALS: BP 149/80
[2019-10-08 05:00] VITALS: BP 149/80
[2019-10-08] MEDS: hydrALAZINE HCL 25 MG TAB PO SCH ×3 (06:00→21:43)
[2019-10-08 09:00] VITALS: BP 153/78
[2019-10-08] MEDS: NITROGLYCERIN 0.4 MG SL TAB SL PRN ×3 (09:10→09:20)
[2019-10-08] MEDS ORDERED: METOPROLOL TARTRATE 25 MG TAB PO SCH (10:00)
[2019-10-08] MEDS ORDERED: FUROSEMIDE 20 MG TAB PO SCH (10:00)
[2019-10-08] MEDS ORDERED: OPTISON 3ml Vial for INJ IV ONE (10:06)
[2019-10-08] MEDS: ASPirin 81 mg TAB PO SCH (10:35)
[2019-10-08] MEDS: amLODIPine BESYLATE 5 MG TAB PO SCH (10:37)
[2019-10-08] MEDS: BENAZEPRIL HCL 10 MG TAB PO SCH (10:37)
[2019-10-08] MEDS: FAMOTIDINE 20 MG TAB PO SCH ×2 (10:38→21:43)
[2019-10-08] MEDS: RANOLAZINE ER 500 MG TAB PO SCH ×2 (10:38→21:43)
[2019-10-08] MEDS: CLOPIDOGREL BISULFATE 75 MG TAB PO SCH (10:38)
[2019-10-08] MEDS: ENOXAPARIN SOD 40 MG/0.4 ML SYRINGE SC SCH (10:39)
[2019-10-08 10:54] LABS: Urine Bacteria NONE SEEN /hpf (None Seen); Urine Blood Negative /uL (Negative); Urine Mucus FEW (None Seen); Urine Specific Gravity 1.034 (1.001-1.035); Urine WBC 2 /hpf (0 - 3)
[2019-10-08 13:00] VITALS: BP 149/78
[2019-10-08] MEDS: MORPHINE SULFATE 4 MG/ML SYR/VIAL IV PRN ×2 (14:29→20:33)
[2019-10-08] MEDS: FUROSEMIDE 40 MG/4 ML VIAL IV SCH (17:26)
[2019-10-08 17:42] VITALS: BP 118/64
--- NOTE | 2019-10-08 19:20 | NUR ---
Opening Shift Note Assumed care of patient, awake and alert. No S/S of distress/SOB or pain. Instructed on POC and to call for assist PRN. Bed in lowest locked position, call light within reach, side rails up x2. Will continue to monitor for changes Q1hr and PRN.
[2019-10-08] MEDS: ATORVASTATIN 20 MG TAB PO SCH (21:43)
[2019-10-08] MEDS: TEMAZEPAM 15 MG CAP PO PRN (21:44)
[2019-10-08 22:00] VITALS: BP 104/74
[2019-10-09] MEDS: MORPHINE SULFATE 4 MG/ML SYR/VIAL IV PRN ×4 (02:24→20:41)
[2019-10-09 05:00] VITALS: BP 134/70
[2019-10-09] MEDS: hydrALAZINE HCL 25 MG TAB PO SCH ×3 (06:21→22:00)
[2019-10-09] MEDS: FUROSEMIDE 40 MG/4 ML VIAL IV SCH ×2 (06:22→18:22)
[2019-10-09 07:08] LABS: Basophils # (auto) 0.1 10 ^3/uL (0-0.2); Basophils % (auto) 0.6 % (0.0-2.0); Eosinophils # (auto) 0.2 10 ^3/uL (0-0.8); Eosinophils % (auto) 2.4 % (0.0-7.0); Hematocrit 41.9 % (41.0-53.0); Hemoglobin 13.6 g/dL (13.5-17.5); Lymphocytes % (auto) 24.9 % (10.0-50.0); Mean Corpuscular Hemoglobin 29.9 pg (28.0-32.0); Mean Corpuscular Hgb Conc. 32.6 g/dL (32.0-36.0); Monocytes # (auto) 0.7 10 ^3/uL (0-1.3); Monocytes % (auto) 8.2 % (0.0-12.0); Neutrophils # (auto) 5.2 10 ^3/uL (1.6-8.6); Neutrophils % (auto) 63.9 % (37.0-80.0); Nucleated Red Blood Cells % 0.1 %; Platelet Count (auto) 164 10^3/uL (140-450); Red Blood Cells 4.55 10^6/uL (4.5-5.90); Red Cell Distribution Width 14.5 % (11.8-14.3); White Blood Cell 8.2 10^3/uL (4.4-10.8)
[2019-10-09 07:24] LABS: Calcium 8.3 mg/dL (8.5-10.1); Potassium 3.5 mmol/L (3.5-5.1)
[2019-10-09 09:00] VITALS: BP 149/89
--- NOTE | 2019-10-09 10:45 | NUR ---
Patient stated that he phoned his primary MD who wanted him to transfer to [facility] and wanted Dr. Serna to know about it.
[2019-10-09] MEDS: RANOLAZINE ER 500 MG TAB PO SCH ×2 (11:19→22:27)
[2019-10-09] MEDS: ASPirin 81 mg TAB PO SCH (11:19)
[2019-10-09] MEDS: dilTIAZem 120MG ER CAP PO SCH (11:21)
[2019-10-09] MEDS: FAMOTIDINE 20 MG TAB PO SCH ×2 (11:22→22:27)
[2019-10-09] MEDS: BENAZEPRIL HCL 10 MG TAB PO SCH (11:22)
[2019-10-09] MEDS: ENOXAPARIN SOD 40 MG/0.4 ML SYRINGE SC SCH (11:23)
[2019-10-09] MEDS: amLODIPine BESYLATE 5 MG TAB PO SCH (11:23)
[2019-10-09] MEDS: CLOPIDOGREL BISULFATE 75 MG TAB PO SCH (11:23)
[2019-10-09 13:00] VITALS: BP 124/67
--- NOTE | 2019-10-09 13:00 | NUR ---
Notified Dr. Serna about patient's wanting him to transfer to [place] by phone. told me to ask Dr. Pablo if has any plan of procedures for patient and if none, will discharge patient tomorrow.
--- NOTE | 2019-10-09 13:20 | NUR ---
Dr. Pablo stated that patient can be discharge per cario.
[2019-10-09 16:36] VITALS: BP 122/81
--- NOTE | 2019-10-09 19:40 | NUR ---
Opening Shift Note Assumed care of patient, awake and alert. No S/S of distress/SOB or pain. Safety measures in place, bed in lowest position, bed rails raised x2, call light within reach. All needs addressed at this time. Instructed on POC and to call for assist PRN, will continue to monitor for changes Q1hr and PRN.
[2019-10-09 21:00] VITALS: BP 128/72
[2019-10-09] MEDS: ATORVASTATIN 20 MG TAB PO SCH (22:27)
[2019-10-09] MEDS: TEMAZEPAM 15 MG CAP PO PRN (22:28)
[2019-10-10] MEDS: MORPHINE SULFATE 4 MG/ML SYR/VIAL IV PRN ×2 (02:35→08:31)
[2019-10-10 05:00] VITALS: BP 127/72
[2019-10-10] MEDS: FUROSEMIDE 40 MG/4 ML VIAL IV SCH (05:49)
[2019-10-10] MEDS: hydrALAZINE HCL 25 MG TAB PO SCH ×2 (05:49→14:05)
[2019-10-10 08:25] VITALS: BP 160/74
[2019-10-10] MEDS: RANOLAZINE ER 500 MG TAB PO SCH (10:31)
[2019-10-10] MEDS: amLODIPine BESYLATE 5 MG TAB PO SCH (10:31)
[2019-10-10] MEDS: FAMOTIDINE 20 MG TAB PO SCH (10:37)
[2019-10-10] MEDS: CLOPIDOGREL BISULFATE 75 MG TAB PO SCH (10:38)
[2019-10-10] MEDS: BENAZEPRIL HCL 10 MG TAB PO SCH (10:38)
[2019-10-10] MEDS: ASPirin 81 mg TAB PO SCH (10:39)
[2019-10-10] MEDS: dilTIAZem 120MG ER CAP PO SCH (10:40)
[2019-10-10] MEDS: ENOXAPARIN SOD 40 MG/0.4 ML SYRINGE SC SCH (10:40)
[2019-10-10 11:39] VITALS: BP 142/76
[2019-10-10 13:00] VITALS: BP 122/85
--- NOTE | 2019-10-10 15:10 | NUR ---
Discharge instructions given as ordered. Encourage to follow up with PMD as instructed. All questions and concerns addressed. Patient verbalized understanding. Medication reconciliation form completed and copy given to patient. IV removed with catheter intact, pressure dressing applied. Telemetry unit returned to ICU. Patient taken to taxi via wheelchair with all personal belongings, accompanied by staff and bung driver. No distress noted at time of departure.
== END 2019-10-10 15:10 | disposition home or self-care (01) | DRG 313 ==
LOC: EDSEX 14:21 → EDBD 14:21 → ER 14:21 → TELE 14:22 → TELE-CENTR 10-08 02:25
PROVIDERS: ADMIT Nurse Practitioner; ATTEND Family Medicine
DX: R07.89 Other chest pain (principal); I50.33 Acute on chronic diastolic (congestive) heart failure; J44.1 Chronic obstructive pulmonary disease with (acute) exacerbation; Z68.43 Body mass index [BMI] 50.0-59.9, adult; I11.0 Hypertensive heart disease with heart failure; I16.0 Hypertensive urgency; E66.01 Morbid (severe) obesity due to excess calories; I25.119 Atherosclerotic heart disease of native coronary artery with unspecified angina pectoris; E11.9 Type 2 diabetes mellitus without complications; E87.6 Hypokalemia; F17.210 Nicotine dependence, cigarettes, uncomplicated; E78.5 Hyperlipidemia, unspecified; F32.9 Major depressive disorder, single episode, unspecified; K21.9 Gastro-esophageal reflux disease without esophagitis; F41.9 Anxiety disorder, unspecified; G47.30 Sleep apnea, unspecified; N28.9 Disorder of kidney and ureter, unspecified; Z81.8 Family history of other mental and behavioral disorders; Z82.3 Family history of stroke; I25.2 Old myocardial infarction; Z82.49 Family history of ischemic heart disease and other diseases of the circulatory system; Z86.73 Personal history of transient ischemic attack (TIA), and cerebral infarction without residual deficits; Z91.19 Patient's noncompliance with other medical treatment and regimen; Z95.5 Presence of coronary angioplasty implant and graft; Z90.49 Acquired absence of other specified parts of digestive tract
CPT/HCPCS: 36415; 71045; 80048; 80053; 81001; 83880; 84484; 85025; 85610; 85730; 93306; 96374; G0378; Q9956

== ENCOUNTER 2019-11-04 09:05 | Emergency (ER) | payer BC, MEDICAID ==
[~2019-11-04] VITALS: Ht 172.7 cm; Wt 163.3 kg
[2019-11-04 09:58] LABS: Basophils # (auto) 0 10 ^3/uL (0-0.2); Basophils % (auto) 0.5 % (0.0-2.0); Eosinophils # (auto) 0.1 10 ^3/uL (0-0.8); Eosinophils % (auto) 1.5 % (0.0-7.0); Hematocrit 43.8 % (41.0-53.0); Hemoglobin 13.8 g/dL (13.5-17.5); Lymphocytes # (auto) 1.2 10 ^3/uL (0.4-5.4); Lymphocytes % (auto) 14.3 % (10.0-50.0); Mean Corpuscular Hemoglobin 29.5 pg (28.0-32.0); Mean Corpuscular Hgb Conc. 31.6 g/dL (32.0-36.0); Mean Corpuscular Volume 93.2 fL (80.0-100.0); Monocytes # (auto) 0.7 10 ^3/uL (0-1.3); Neutrophils # (auto) 6.2 10 ^3/uL (1.6-8.6); Neutrophils % (auto) 75.7 % (37.0-80.0); Platelet Count (auto) 158 10^3/uL (140-450); Red Cell Distribution Width 14.4 % (11.8-14.3); White Blood Cell 8.2 10^3/uL (4.4-10.8)
[2019-11-04 10:20] LABS: Anion Gap 5 (5-15); Blood Urea Nitrogen 14 mg/dL (7-18); Calcium 8.6 mg/dL (8.5-10.1); Carbon Dioxide 24 mmol/L (21-32); Chloride 112 mmol/L (98-107); Glucose 114 mg/dL (74-106); Potassium 3.6 mmol/L (3.5-5.1); Sodium 141 mmol/L (136-145)
[2019-11-04 10:25] LABS: Alanine Aminotransferase 21 U/L (16-61); Alkaline Phosphatase 83 U/L (45-117); Aspartate Aminotransferase 17 U/L (15-37); BUN/Creatinine Ratio 14.6; GFR African American 101 mL/min; GFR Non-African American 84 mL/min; Total Protein 7.2 g/dL (6.4-8.2)
[2019-11-04] MEDS: FUROSEMIDE 20 MG TAB PO ONE ×2 (10:45→11:04)
[2019-11-04] MEDS ORDERED: levoFLOXacin 250 MG TAB PO ONE (10:45)
[2019-11-04 11:15] VITALS: BP 159/94
== END 2019-11-04 11:47 | disposition home or self-care (01) ==
LOC: EDBD 09:05 → ER 09:05
DX: I13.0 Hypertensive heart and chronic kidney disease with heart failure and stage 1 through stage 4 chronic kidney disease, or unspecified chronic kidney disease (principal); N18.9 Chronic kidney disease, unspecified; I50.43 Acute on chronic combined systolic (congestive) and diastolic (congestive) heart failure; E11.9 Type 2 diabetes mellitus without complications; K21.9 Gastro-esophageal reflux disease without esophagitis; E78.5 Hyperlipidemia, unspecified; F41.9 Anxiety disorder, unspecified; F17.210 Nicotine dependence, cigarettes, uncomplicated; J18.9 Pneumonia, unspecified organism; E46 Unspecified protein-calorie malnutrition
CPT/HCPCS: 36415; 71045; 80053; 84484; 85025; 93005

== ENCOUNTER 2020-08-26 03:59 | Inpatient (IN) | payer BC, MEDICAID ==
[~2020-08-26] VITALS: Ht 172.7 cm; Wt 174.2 kg
[~2020-08-26 03:59] MED LIST changes: -CLOP75TA41 PO; +CLOP75TA70 PO; +ISOS1TAB28 PO; -ISOS30TA4 PO
[2020-08-26] MEDS ORDERED: MORPHINE SULF INJ 2 MG/ML SYRINGE 1ML IV ONE (05:30)
[2020-08-26] MEDS ORDERED: ONDANSETRON HCL 4 MG/2 ML VIAL IV ONE ×2 (05:30→06:30)
[2020-08-26] MEDS ORDERED: MORPHINE SULFATE 4 MG/ML SYR/VIAL IV ONE (06:30)
[2020-08-26 07:01] LABS: Basophils # (auto) 0.1 10 ^3/uL (0-0.2); Basophils % (auto) 0.6 % (0.0-2.0); Eosinophils # (auto) 0 10 ^3/uL (0-0.8); Eosinophils % (auto) 0.2 % (0.0-7.0); Hematocrit 41.4 % (41.0-53.0); Lymphocytes # (auto) 1.9 10 ^3/uL (0.4-5.4); Lymphocytes % (auto) 19.3 % (10.0-50.0); Mean Corpuscular Hemoglobin 30.9 pg (28.0-32.0); Mean Corpuscular Hgb Conc. 33.7 g/dL (32.0-36.0); Mean Corpuscular Volume 91.5 fL (80.0-100.0); Monocytes # (auto) 0.8 10 ^3/uL (0-1.3); Monocytes % (auto) 8.7 % (0.0-12.0); Neutrophils # (auto) 6.9 10 ^3/uL (1.6-8.6); Neutrophils % (auto) 71.2 % (37.0-80.0); Nucleated Red Blood Cells % 0.1 %; Red Blood Cells 4.53 10^6/uL (4.5-5.90); Red Cell Distribution Width 15.8 % (11.8-14.3); White Blood Cell 9.6 10^3/uL (4.4-10.8)
[2020-08-26 07:10] LABS: Albumin 2.7 g/dL (3.4-5.0); Calcium 8.3 mg/dL (8.5-10.1); Potassium 3.5 mmol/L (3.5-5.1)
[2020-08-26 07:15] LABS: Bilirubin, Total 0.6 mg/dL (0.2-1.0)
[2020-08-26] MEDS ORDERED: FUROSEMIDE 40 MG/4 ML VIAL IV ONE (07:45)
[2020-08-26] MEDS ORDERED: NITROGLYCERIN 0.4 MG SL TAB SL PRN (08:45)
[2020-08-26] MEDS ORDERED: BENAZEPRIL HCL 10 MG TAB PO ONE (08:45)
[2020-08-26] MEDS ORDERED: hydrALAZINE HCL 25 MG TAB PO ONE (08:45)
[2020-08-26] MEDS ORDERED: amLODIPine BESYLATE 5 MG TAB PO ONE (08:45)
[2020-08-26] MEDS ORDERED: MORPHINE SULF INJ 2 MG/ML SYRINGE 1ML IV PRN (08:45)
[2020-08-26] MEDS ORDERED: ISOSORBIDE MONONITRATE ER 60 MG TAB PO ONE (08:45)
[2020-08-26] MEDS ORDERED: DEXTROSE (50%) 50ML SYRG IV PRN (09:45)
[2020-08-26] MEDS ORDERED: ACETAMINOPHEN 500 MG TAB PO PRN (09:45)
[2020-08-26] MEDS ORDERED: ONDANSETRON HCL 4 MG/2 ML VIAL IV PRN (09:45)
[2020-08-26] MEDS ORDERED: traMADol HCL 50 MG TAB PO PRN ×3 (09:45→18:30)
[2020-08-26] MEDS ORDERED: LACTULOSE 20Gm/30ML SOLN PO PRN (09:45)
[2020-08-26] MEDS: ISOSORBIDE MONONITRATE ER 60 MG TAB PO SCH (10:00)
[2020-08-26] MEDS: CARVEDILOL 3.125 MG TAB PO SCH ×2 (10:00→22:37)
[2020-08-26] MEDS: FUROSEMIDE 40 MG/4 ML VIAL IV SCH ×2 (10:00→18:23)
[2020-08-26] MEDS: BENAZEPRIL HCL 10 MG TAB PO SCH (10:00)
[2020-08-26] MEDS: amLODIPine BESYLATE 5 MG TAB PO SCH (10:00)
[2020-08-26] MEDS: PANTOPRAZOLE 40 MG TAB PO SCH (11:09)
[2020-08-26] MEDS: ASPirin 81 mg TAB PO SCH (11:09)
[2020-08-26] MEDS: POTASSIUM CHL 20 Meq TABLET PO SCH (11:09)
[2020-08-26] MEDS: ENOXAPARIN SOD 40 MG/0.4 ML SYRINGE SC SCH (11:10)
[2020-08-26] MEDS: InsuLIN REG 1unit/0.01ml Soln (100units/ml) SC SCH ×3 (11:30→22:00)
[2020-08-26] MEDS: ACCU-CHEK COMFORT CURVE STRIP VI SCH ×3 (12:51→22:00)
[2020-08-26 13:00] VITALS: BP 123/68
[2020-08-26] MEDS: SODIUM CHLOR 0.9% PF (SALINE LOCK) 10ML VIAL/SYR IV SCH ×2 (14:20→22:00)
[2020-08-26] MEDS: hydrALAZINE HCL 25 MG TAB PO SCH ×2 (14:21→22:39)
[2020-08-26 17:00] VITALS: BP 116/73
[2020-08-26 22:00] VITALS: BP 123/70
[2020-08-26] MEDS ORDERED: HYDROcodone-ACET 5/325MG TAB PO PRN (22:30)
[2020-08-26] MEDS: RANOLAZINE ER 500 MG TAB PO SCH (22:37)
[2020-08-26] MEDS: LORazepam 0.5 MG TAB PO PRN (22:38)
[2020-08-26] MEDS: ATORVASTATIN 20 MG TAB PO SCH (22:38)
[2020-08-27 00:06] LABS: Basophils # (auto) 0 10 ^3/uL (0-0.2); Basophils % (auto) 0.4 % (0.0-2.0); Eosinophils # (auto) 0.1 10 ^3/uL (0-0.8); Eosinophils % (auto) 1.3 % (0.0-7.0); Hematocrit 39.3 % (41.0-53.0); Hemoglobin 13.3 g/dL (13.5-17.5); Mean Corpuscular Hemoglobin 31.3 pg (28.0-32.0); Mean Corpuscular Hgb Conc. 33.9 g/dL (32.0-36.0); Mean Corpuscular Volume 92.3 fL (80.0-100.0); Monocytes # (auto) 0.8 10 ^3/uL (0-1.3); Monocytes % (auto) 8.3 % (0.0-12.0); Neutrophils # (auto) 6.7 10 ^3/uL (1.6-8.6); Nucleated Red Blood Cells % 0.1 %; Red Blood Cells 4.26 10^6/uL (4.5-5.90); Red Cell Distribution Width 16.4 % (11.8-14.3); White Blood Cell 9.7 10^3/uL (4.4-10.8)
[2020-08-27 00:25] LABS: Potassium 3.6 mmol/L (3.5-5.1)
[2020-08-27 00:30] LABS: Albumin 2.6 g/dL (3.4-5.0); BUN/Creatinine Ratio 10.2; Calcium 8.3 mg/dL (8.5-10.1)
[2020-08-27 00:33] LABS: Bilirubin, Total 0.5 mg/dL (0.2-1.0); Total Protein 6.8 g/dL (6.4-8.2)
[2020-08-27 05:23] VITALS: BP 129/66
[2020-08-27 05:41] LABS: Urine Bacteria NONE SEEN /hpf (None Seen); Urine Blood Negative /uL (Negative); Urine Hyaline Cast MANY /lpf (0 - 2); Urine Mucus FEW (None Seen); Urine Specific Gravity 1.016 (1.001-1.035); Urine WBC 5 /hpf (0 - 3)
[2020-08-27] MEDS: ACCU-CHEK COMFORT CURVE STRIP VI SCH ×4 (06:02→22:20)
[2020-08-27] MEDS: SODIUM CHLOR 0.9% PF (SALINE LOCK) 10ML VIAL/SYR IV SCH ×3 (06:05→22:01)
[2020-08-27] MEDS: hydrALAZINE HCL 25 MG TAB PO SCH ×3 (06:05→22:00)
[2020-08-27] MEDS: FUROSEMIDE 40 MG/4 ML VIAL IV SCH ×2 (06:06→18:11)
[2020-08-27] MEDS: InsuLIN REG 1unit/0.01ml Soln (100units/ml) SC SCH ×4 (06:20→22:00)
[2020-08-27 07:38] LABS: Cholesterol 175 mg/dL (< 200); HDL Cholesterol 43 mg/dL (40-59); LDL Cholesterol 115 mg/dL (< 100); Triglycerides 115 mg/dL (< 150)
[2020-08-27 08:41] VITALS: BP 132/70
[2020-08-27] MEDS: CARVEDILOL 3.125 MG TAB PO SCH ×2 (10:00→22:01)
[2020-08-27] MEDS: ASPirin 81 mg TAB PO SCH (10:13)
[2020-08-27] MEDS: PANTOPRAZOLE 40 MG TAB PO SCH (10:13)
[2020-08-27] MEDS: ENOXAPARIN SOD 40 MG/0.4 ML SYRINGE SC SCH ×2 (10:14→22:00)
[2020-08-27] MEDS: POTASSIUM CHL 20 Meq TABLET PO SCH (10:14)
[2020-08-27 13:03] VITALS: BP 127/75
[2020-08-27] MEDS: ISOSORBIDE MONONITRATE ER 60 MG TAB PO SCH (13:54)
[2020-08-27] MEDS: amLODIPine BESYLATE 5 MG TAB PO SCH (13:55)
[2020-08-27] MEDS: RANOLAZINE ER 500 MG TAB PO SCH ×2 (13:55→22:01)
[2020-08-27] MEDS: MORPHINE SULF INJ 2 MG/ML SYRINGE 1ML IV PRN ×3 (13:56→22:16)
[2020-08-27] MEDS: BENAZEPRIL HCL 10 MG TAB PO SCH (14:02)
[2020-08-27 17:34] VITALS: BP 132/78
[2020-08-27 22:00] VITALS: BP 127/71
[2020-08-27] MEDS: ATORVASTATIN 20 MG TAB PO SCH (22:00)
[2020-08-27] MEDS: LORazepam 0.5 MG TAB PO PRN (22:58)
[2020-08-28] MEDS: MORPHINE SULF INJ 2 MG/ML SYRINGE 1ML IV PRN ×2 (03:32→08:43)
[2020-08-28 05:00] VITALS: BP 121/71
[2020-08-28] MEDS: SODIUM CHLOR 0.9% PF (SALINE LOCK) 10ML VIAL/SYR IV SCH ×2 (06:21→11:46)
[2020-08-28] MEDS: FUROSEMIDE 40 MG/4 ML VIAL IV SCH (06:21)
[2020-08-28] MEDS: ACCU-CHEK COMFORT CURVE STRIP VI SCH ×2 (06:21→11:46)
[2020-08-28] MEDS: hydrALAZINE HCL 25 MG TAB PO SCH (06:22)
[2020-08-28] MEDS: InsuLIN REG 1unit/0.01ml Soln (100units/ml) SC SCH ×2 (06:32→11:30)
[2020-08-28] MEDS: ENOXAPARIN SOD 40 MG/0.4 ML SYRINGE SC SCH (08:43)
[2020-08-28] MEDS: RANOLAZINE ER 500 MG TAB PO SCH (08:43)
[2020-08-28] MEDS: CARVEDILOL 3.125 MG TAB PO SCH (08:44)
[2020-08-28] MEDS: PANTOPRAZOLE 40 MG TAB PO SCH (08:44)
[2020-08-28] MEDS: BENAZEPRIL HCL 10 MG TAB PO SCH (08:45)
[2020-08-28] MEDS: amLODIPine BESYLATE 5 MG TAB PO SCH (08:45)
[2020-08-28] MEDS: ASPirin 81 mg TAB PO SCH (08:45)
[2020-08-28] MEDS: POTASSIUM CHL 20 Meq TABLET PO SCH (08:46)
[2020-08-28] MEDS: ISOSORBIDE MONONITRATE ER 60 MG TAB PO SCH (08:46)
[2020-08-28 09:19] VITALS: BP 139/79
[2020-08-28 10:51] VITALS: BP 139/79
[2020-08-28 13:21] VITALS: BP 142/71
== END 2020-08-28 13:26 | disposition home or self-care (01) | DRG 291 ==
LOC: EDBD 03:59 → ER 03:59 → TELE 08:42 → TELE-CENTR 12:25
PROVIDERS: ADMIT Internal Medicine; ATTEND Family Medicine
DX: I13.0 Hypertensive heart and chronic kidney disease with heart failure and stage 1 through stage 4 chronic kidney disease, or unspecified chronic kidney disease (principal); I50.33 Acute on chronic diastolic (congestive) heart failure; I24.9 Acute ischemic heart disease, unspecified; F11.20 Opioid dependence, uncomplicated; E44.0 Moderate protein-calorie malnutrition; Z68.43 Body mass index [BMI] 50.0-59.9, adult; J90 Pleural effusion, not elsewhere classified; I25.10 Atherosclerotic heart disease of native coronary artery without angina pectoris; E66.01 Morbid (severe) obesity due to excess calories; I16.0 Hypertensive urgency; J44.9 Chronic obstructive pulmonary disease, unspecified; K21.9 Gastro-esophageal reflux disease without esophagitis; G89.4 Chronic pain syndrome; E11.22 Type 2 diabetes mellitus with diabetic chronic kidney disease; F32.9 Major depressive disorder, single episode, unspecified; N18.30 Chronic kidney disease, stage 3 unspecified; F41.9 Anxiety disorder, unspecified; E78.00 Pure hypercholesterolemia, unspecified; F17.210 Nicotine dependence, cigarettes, uncomplicated; E78.5 Hyperlipidemia, unspecified; Z83.3 Family history of diabetes mellitus; Z86.73 Personal history of transient ischemic attack (TIA), and cerebral infarction without residual deficits; Z86.14 Personal history of Methicillin resistant Staphylococcus aureus infection; I25.2 Old myocardial infarction; Z90.49 Acquired absence of other specified parts of digestive tract; Z82.49 Family history of ischemic heart disease and other diseases of the circulatory system; Z79.899 Other long term (current) drug therapy; Z79.84 Long term (current) use of oral hypoglycemic drugs; Z81.8 Family history of other mental and behavioral disorders; Z82.3 Family history of stroke; Z82.5 Family history of asthma and other chronic lower respiratory diseases; Z91.14 Patient's other noncompliance with medication regimen; Z95.5 Presence of coronary angioplasty implant and graft; Z71.6 Tobacco abuse counseling
CPT/HCPCS: 36415; 71045; 80053; 80061; 81001; 82962; 83036; 83880; 84443; 84484; 85025; 85049; 87426; 93005; 93306; 93970; 96372; 96374; 96375; 96376; G0378; J2405

== ENCOUNTER 2020-10-04 21:01 | Emergency (ER) | payer BC, MEDICAID ==
[~2020-10-04] VITALS: Ht 172.7 cm; Wt 158.8 kg
[2020-10-04 22:19] LABS: Basophils # (auto) 0.1 10 ^3/uL (0-0.2); Basophils % (auto) 0.8 % (0.0-2.0); Eosinophils # (auto) 0.1 10 ^3/uL (0-0.8); Hematocrit 43.7 % (41.0-53.0); Hemoglobin 14.4 g/dL (13.5-17.5); Lymphocytes # (auto) 2.5 10 ^3/uL (0.4-5.4); Lymphocytes % (auto) 27.6 % (10.0-50.0); Mean Corpuscular Hemoglobin 30.9 pg (28.0-32.0); Mean Corpuscular Hgb Conc. 32.9 g/dL (32.0-36.0); Mean Corpuscular Volume 94.1 fL (80.0-100.0); Monocytes # (auto) 0.6 10 ^3/uL (0-1.3); Monocytes % (auto) 6.3 % (0.0-12.0); Neutrophils # (auto) 5.9 10 ^3/uL (1.6-8.6); Neutrophils % (auto) 64.3 % (37.0-80.0); Nucleated Red Blood Cells % 0.2 %; Red Blood Cells 4.65 10^6/uL (4.5-5.90); Red Cell Distribution Width 15.3 % (11.8-14.3); White Blood Cell 9.1 10^3/uL (4.4-10.8)
[2020-10-04 22:33] LABS: Calcium 8.2 mg/dL (8.5-10.1); Chloride 111 mmol/L (98-107); Potassium 3.6 mmol/L (3.5-5.1); Sodium 144 mmol/L (136-145)
[2020-10-04 22:36] LABS: Alanine Aminotransferase 29 U/L (16-61); Albumin 2.7 g/dL (3.4-5.0); Anion Gap 10 (5-15); Aspartate Aminotransferase 27 U/L (15-37); BUN/Creatinine Ratio 9.8; Blood Urea Nitrogen 13 mg/dL (7-18); Carbon Dioxide 23 mmol/L (21-32); GFR African American 69 mL/min; GFR Non-African American 57 mL/min; Glucose 106 mg/dL (74-106); Magnesium 2.1 mg/dL (1.6-2.6)
[2020-10-04 22:49] LABS: Alkaline Phosphatase 87 U/L (45-117); Bilirubin, Total 0.3 mg/dL (0.2-1.0); Total Protein 7.3 g/dL (6.4-8.2)
[2020-10-04] MEDS ORDERED: NITROGLYCERIN 0.4 MG SL TAB SL ONE (23:15)
[2020-10-05] MEDS ORDERED: NITROGLYCERIN 0.4 MG SL TAB SL ONE ×2 (01:53→10:00)
[2020-10-05] MEDS ORDERED: hydrALAZINE HCL 10 MG TAB PO ONE (06:15)
[2020-10-05 07:23] VITALS: BP 172/94
== END 2020-10-05 07:28 | disposition home or self-care (01) ==
LOC: EDBD 21:01 → ER 21:01
DX: I20.9 Angina pectoris, unspecified (principal); I13.0 Hypertensive heart and chronic kidney disease with heart failure and stage 1 through stage 4 chronic kidney disease, or unspecified chronic kidney disease; E11.22 Type 2 diabetes mellitus with diabetic chronic kidney disease; N18.9 Chronic kidney disease, unspecified; I50.9 Heart failure, unspecified; J44.9 Chronic obstructive pulmonary disease, unspecified; E11.9 Type 2 diabetes mellitus without complications; K21.9 Gastro-esophageal reflux disease without esophagitis; E78.5 Hyperlipidemia, unspecified; I25.2 Old myocardial infarction; F17.210 Nicotine dependence, cigarettes, uncomplicated; Z90.49 Acquired absence of other specified parts of digestive tract; Z86.73 Personal history of transient ischemic attack (TIA), and cerebral infarction without residual deficits; Z79.82 Long term (current) use of aspirin; Z79.01 Long term (current) use of anticoagulants; Z79.899 Other long term (current) drug therapy
CPT/HCPCS: 36415; 71045; 80053; 83735; 83880; 84484; 85025; 93005

== ENCOUNTER 2021-10-16 18:27 | Emergency (ER) | payer BC, MEDICAID ==
[~2021-10-16] VITALS: Ht 167.6 cm; Wt 161.0 kg
[~2021-10-16 18:27] MED LIST changes: +BUPR75TA10 PO; -BUPR75TA9 PO
[2021-10-16 19:37] LABS: Basophils # (auto) 0 10 ^3/uL (0-0.2); Basophils % (auto) 0.5 % (0.0-2.0); Eosinophils # (auto) 0.2 10 ^3/uL (0-0.8); Eosinophils % (auto) 2.4 % (0.0-7.0); Hematocrit 43.7 % (41.0-53.0); Hemoglobin 13.7 g/dL (13.5-17.5); Lymphocytes # (auto) 1.6 10 ^3/uL (0.4-5.4); Lymphocytes % (auto) 24.1 % (10.0-50.0); Mean Corpuscular Hemoglobin 28.7 pg (28.0-32.0); Mean Corpuscular Hgb Conc. 31.4 g/dL (32.0-36.0); Mean Corpuscular Volume 91.4 fL (80.0-100.0); Monocytes # (auto) 0.7 10 ^3/uL (0-1.3); Nucleated Red Blood Cells % 0.2 %; Red Blood Cells 4.78 10^6/uL (4.5-5.90); Red Cell Distribution Width 15.2 % (11.8-14.3); White Blood Cell 6.5 10^3/uL (4.4-10.8)
[2021-10-16 20:00] LABS: Albumin 2.9 g/dL (3.4-5.0); Calcium 9.5 mg/dL (8.5-10.1); Potassium 4.9 mmol/L (3.5-5.1)
[2021-10-16 20:03] LABS: Bilirubin, Total 0.4 mg/dL (0.2-1.0); Total Protein 7.6 g/dL (6.4-8.2)
[2021-10-17 02:18] VITALS: BP 191/100
== END 2021-10-17 02:18 | disposition home or self-care (01) ==
LOC: EDBD 18:27 → ER 18:29
DX: E11.22 Type 2 diabetes mellitus with diabetic chronic kidney disease (principal); I13.0 Hypertensive heart and chronic kidney disease with heart failure and stage 1 through stage 4 chronic kidney disease, or unspecified chronic kidney disease; N18.9 Chronic kidney disease, unspecified; I50.9 Heart failure, unspecified; J44.9 Chronic obstructive pulmonary disease, unspecified; K21.9 Gastro-esophageal reflux disease without esophagitis; E78.5 Hyperlipidemia, unspecified; F17.210 Nicotine dependence, cigarettes, uncomplicated; R53.83 Other fatigue; Z90.49 Acquired absence of other specified parts of digestive tract; Z86.73 Personal history of transient ischemic attack (TIA), and cerebral infarction without residual deficits; W06.XXXA Fall from bed, initial encounter; Y93.89 Activity, other specified; Y92.89 Other specified places as the place of occurrence of the external cause; Y99.8 Other external cause status
CPT/HCPCS: 36415; 70450; 80053; 83880; 84484; 85025

== ENCOUNTER 2022-10-04 13:17 | Inpatient (IN) | payer BC, OTHER ==
[~2022-10-04] VITALS: Ht 170.2 cm; Wt 163.2 kg
[~2022-10-04 13:17] MED LIST changes: -BUPR75TA10 PO; +BUPR75TA96 PO; +TRAZ-228 PO; -TRAZ100T3 PO
[2022-10-04 14:07] LABS: Basophils # (auto) 0 10 ^3/uL (0-0.2); Basophils % (auto) 0.5 % (0.0-2.0); Eosinophils # (auto) 0.1 10 ^3/uL (0-0.8); Eosinophils % (auto) 1.6 % (0.0-7.0); Hemoglobin 13.2 g/dL (13.5-17.5); Lymphocytes # (auto) 2.4 10 ^3/uL (0.4-5.4); Lymphocytes % (auto) 29.3 % (10.0-50.0); Mean Corpuscular Hemoglobin 29.9 pg (28.0-32.0); Mean Corpuscular Hgb Conc. 32.2 g/dL (32.0-36.0); Mean Corpuscular Volume 92.7 fL (80.0-100.0); Monocytes # (auto) 0.8 10 ^3/uL (0-1.3); Monocytes % (auto) 10.3 % (0.0-12.0); Neutrophils # (auto) 4.8 10 ^3/uL (1.6-8.6); Neutrophils % (auto) 58.3 % (37.0-80.0); Nucleated Red Blood Cells % 0.2 %; Red Blood Cells 4.42 10^6/uL (4.5-5.90); Red Cell Distribution Width 14.9 % (11.8-14.3); White Blood Cell 8.2 10^3/uL (4.4-10.8)
[2022-10-04 14:23] LABS: Base Excess 1.8 mmol/L (-2.0-2.0)
[2022-10-04 14:34] LABS: BUN/Creatinine Ratio 20.6 (10.0-20.0); Calcium 9.3 mg/dL (8.5-10.1); Magnesium 2.7 mg/dL (1.6-2.6); Potassium 4.2 mmol/L (3.5-5.1)
[2022-10-04 14:37] LABS: Bilirubin, Total 0.4 mg/dL (0.2-1.0); Total Protein 6.6 g/dL (6.4-8.2)
[2022-10-04] MEDS ORDERED: SPIRONOLACTONE 25 MG TAB PO ONE (15:00)
[2022-10-04] MEDS ORDERED: ALBUTEROL SULF 2.5 MG/0.5ML(0.5%) NEB SOLN NEB ONE (15:00)
[2022-10-04] MEDS ORDERED: methylPREDNISolone SOD SUCC 40 MG/ML VL IV ONE (15:00)
[2022-10-04] MEDS ORDERED: IPRATROPIUM BROM 0.5 MG/2.5ML INH SOL NEB ONE (15:00)
[2022-10-04] MEDS ORDERED: FUROSEMIDE 20 MG/2 ML VIAL IV ONE (15:00)
[2022-10-04] MEDS ORDERED: MORPHINE SULFATE INJ 2 MG/ml SYRG ONE (15:09)
[2022-10-04] MEDS ORDERED: MORPHINE SULFATE INJ 2 MG/ml SYRG IV ONE (15:30)
[2022-10-04 15:44] VITALS: PULSE 68; RESP 26; O2SAT 96
[2022-10-04 17:02] LABS: Urine Bacteria FEW /hpf (None Seen); Urine Blood Negative /uL (Negative); Urine Clarity Clear (Clear); Urine Color Yellow (Yellow); Urine Hyaline Cast FEW /lpf (0 - 2); Urine Protein, UAD Negative (Negative); Urine Specific Gravity 1.014 (1.001-1.035); Urine Urobilinogen Normal (Negative); Urine WBC <1 /hpf (0 - 3); Urine pH 5.5 (5.0-8.0)
[2022-10-04] MEDS ORDERED: hydrALAZINE HCL 20 MG/ML VL IV ONE ×2 (17:15→23:45)
[2022-10-04 18:15] VITALS: BP 109/71; PULSE 70; O2SAT 94
[2022-10-04] MEDS ORDERED: MORPHINE SULFATE 4 MG/ML SYR/VIAL IV ONE (18:15)
[2022-10-04] MEDS ORDERED: ONDANSETRON HCL 4 MG/2 ML VIAL IV ONE (18:15)
[2022-10-04] MEDS ORDERED: NITROGLYCERIN 0.4 MG SL TAB SL PRN (18:45)
[2022-10-04] MEDS ORDERED: ACETAMINOPHEN 325 MG TAB PO PRN (18:45)
[2022-10-04] MEDS ORDERED: ONDANSETRON HCL 4 MG/2 ML VIAL IV PRN (18:45)
[2022-10-04] MEDS ORDERED: DOCUSATE SOD 100 MG CAP PO PRN (18:45)
[2022-10-04] MEDS ORDERED: HYDROcodone-ACET 5/325MG TAB PO PRN (18:45)
[2022-10-04] MEDS ORDERED: BUME2TAB5 PO (18:51)
[2022-10-04] MEDS ORDERED: DEXTROSE (50%) 50ML SYRG IV PRN (19:00)
[2022-10-04 20:08] VITALS: PULSE 59; RESP 16; O2SAT 94
[2022-10-04 20:20] VITALS: BP 156/77; PULSE 70; O2SAT 96
[2022-10-04] MEDS ORDERED: IOHEXOL 350 MG/ML 100ML IJ ONE (20:22)
[2022-10-04 21:26] VITALS: BP 169/71; PULSE 72; RESP 30; TEMP 98.2; O2SAT 95
[2022-10-04] MEDS: MORPHINE SULFATE INJ 2 MG/ml SYRG IV PRN (22:10)
[2022-10-04] MEDS: SODIUM CHLOR 0.9% PF (SALINE LOCK) 10ML VIAL/SYR IV SCH (23:04)
[2022-10-04] MEDS: methylPREDNISolone SOD SUCC 40 MG/ML VL IV SCH (23:05)
[2022-10-04] MEDS: GABAPENTIN 400 MG CAP PO SCH (23:07)
[2022-10-04] MEDS: ATORVASTATIN 20 MG TAB PO SCH (23:07)
[2022-10-04] MEDS: hydrALAZINE HCL 25 MG TAB PO SCH (23:07)
[2022-10-04] MEDS: BUMETANIDE 1 MG TAB PO SCH (23:08)
[2022-10-04] MEDS: ACCU-CHEK COMFORT CURVE STRIP VI SCH (23:08)
[2022-10-04] MEDS: InsuLIN REG 1unit/0.01ml Soln (100units/ml) SC SCH (23:09)
[2022-10-05] VITALS (17 sets, daily range): BP systolic 113–167; BP diastolic 55–87; PULSE 52–93; RESP 14–21; TEMP 97.7–98.6; O2SAT 91–98
[2022-10-05] MEDS: IPRATROPIUM BROM 0.5 MG/2.5ML INH SOL NEB SCH ×4 (01:11→18:09)
[2022-10-05] MEDS: ALBUTEROL SULF 2.5 MG/0.5ML(0.5%) NEB SOLN NEB SCH ×4 (01:11→18:09)
[2022-10-05] MEDS ORDERED: traZODone HCL 50 MG TAB PO ONE (02:00)
[2022-10-05] MEDS: MORPHINE SULFATE INJ 2 MG/ml SYRG IV PRN ×2 (05:28→20:47)
[2022-10-05 05:52] LABS: Basophils # (auto) 0 10 ^3/uL (0-0.2); Basophils % (auto) 0.1 % (0.0-2.0); Eosinophils # (auto) 0 10 ^3/uL (0-0.8); Hematocrit 39.5 % (41.0-53.0); Hemoglobin 12.9 g/dL (13.5-17.5); Lymphocytes # (auto) 0.8 10 ^3/uL (0.4-5.4); Lymphocytes % (auto) 9.1 % (10.0-50.0); Mean Corpuscular Hemoglobin 29.9 pg (28.0-32.0); Mean Corpuscular Hgb Conc. 32.6 g/dL (32.0-36.0); Mean Corpuscular Volume 91.9 fL (80.0-100.0); Monocytes # (auto) 0.2 10 ^3/uL (0-1.3); Monocytes % (auto) 2.1 % (0.0-12.0); Neutrophils # (auto) 7.6 10 ^3/uL (1.6-8.6); Neutrophils % (auto) 88.7 % (37.0-80.0); Nucleated Red Blood Cells % 0.1 %; Red Cell Distribution Width 15.1 % (11.8-14.3); White Blood Cell 8.6 10^3/uL (4.4-10.8)
[2022-10-05] MEDS: SODIUM CHLOR 0.9% PF (SALINE LOCK) 10ML VIAL/SYR IV SCH ×3 (06:14→22:11)
[2022-10-05] MEDS: ACCU-CHEK COMFORT CURVE STRIP VI SCH ×4 (06:15→22:13)
[2022-10-05] MEDS: hydrALAZINE HCL 25 MG TAB PO SCH ×3 (06:15→22:09)
[2022-10-05 06:19] LABS: Albumin 2.8 g/dL (3.4-5.0); BUN/Creatinine Ratio 18.1 (10.0-20.0); Bilirubin, Total 0.3 mg/dL (0.2-1.0); Calcium 9.3 mg/dL (8.5-10.1); Total Protein 6.6 g/dL (6.4-8.2)
[2022-10-05] MEDS: InsuLIN REG 1unit/0.01ml Soln (100units/ml) SC SCH ×4 (06:23→22:16)
[2022-10-05] MEDS: amLODIPine BESYLATE 5 MG TAB PO SCH (10:19)
[2022-10-05] MEDS: CLOPIDOGREL BISULFATE 75 MG TAB PO SCH (10:21)
[2022-10-05] MEDS: BENAZEPRIL HCL 10 MG TAB PO SCH (10:21)
[2022-10-05] MEDS: ISOSORBIDE MONONITRATE ER 60 MG TAB PO SCH (10:22)
[2022-10-05] MEDS: BUMETANIDE 1 MG TAB PO SCH (10:22)
[2022-10-05] MEDS: GABAPENTIN 400 MG CAP PO SCH ×2 (10:23→22:09)
[2022-10-05] MEDS: ASPirin-EC 81 mg tab PO SCH (10:23)
[2022-10-05] MEDS: methylPREDNISolone SOD SUCC 40 MG/ML VL IV SCH ×2 (10:24→22:11)
[2022-10-05] MEDS: ENOXAPARIN SOD 40 MG/0.4 ML SYRINGE SC SCH (10:25)
[2022-10-05] MEDS: HYDROcodone-ACET 10/325MG TAB PO PRN (15:14)
[2022-10-05] MEDS: BUMETANIDE 2.5mg/10ml (0.25 mg/ml) INJ IV SCH (18:16)
[2022-10-05] MEDS: ATORVASTATIN 20 MG TAB PO SCH (22:10)
[2022-10-06] VITALS (15 sets, daily range): BP systolic 124–138; BP diastolic 52–68; PULSE 40–71; RESP 16–20; TEMP 97.5–97.9; O2SAT 93–97
[2022-10-06] MEDS: IPRATROPIUM BROM 0.5 MG/2.5ML INH SOL NEB SCH ×4 (00:26→19:07)
[2022-10-06] MEDS: ALBUTEROL SULF 2.5 MG/0.5ML(0.5%) NEB SOLN NEB SCH ×4 (00:26→19:07)
[2022-10-06] MEDS: MORPHINE SULFATE INJ 2 MG/ml SYRG IV PRN ×5 (02:18→21:24)
[2022-10-06] MEDS: SODIUM CHLOR 0.9% PF (SALINE LOCK) 10ML VIAL/SYR IV SCH ×3 (06:17→22:27)
[2022-10-06] MEDS: hydrALAZINE HCL 25 MG TAB PO SCH ×3 (06:17→22:28)
[2022-10-06] MEDS: BUMETANIDE 2.5mg/10ml (0.25 mg/ml) INJ IV SCH ×2 (06:18→17:01)
[2022-10-06] MEDS: ACCU-CHEK COMFORT CURVE STRIP VI SCH ×4 (06:22→22:28)
[2022-10-06] MEDS: InsuLIN REG 1unit/0.01ml Soln (100units/ml) SC SCH ×4 (06:24→22:37)
[2022-10-06] MEDS: ENOXAPARIN SOD 40 MG/0.4 ML SYRINGE SC SCH (09:25)
[2022-10-06] MEDS: methylPREDNISolone SOD SUCC 40 MG/ML VL IV SCH ×2 (09:26→22:27)
[2022-10-06] MEDS: GABAPENTIN 400 MG CAP PO SCH ×2 (09:26→22:28)
[2022-10-06] MEDS: ASPirin-EC 81 mg tab PO SCH (09:26)
[2022-10-06] MEDS: CLOPIDOGREL BISULFATE 75 MG TAB PO SCH (09:27)
[2022-10-06] MEDS: HYDROcodone-ACET 10/325MG TAB PO PRN (09:40)
[2022-10-06] MEDS: ISOSORBIDE MONONITRATE ER 60 MG TAB PO SCH (10:00)
[2022-10-06] MEDS: amLODIPine BESYLATE 5 MG TAB PO SCH (10:00)
[2022-10-06] MEDS: BENAZEPRIL HCL 10 MG TAB PO SCH (10:00)
[2022-10-06] MEDS: ATORVASTATIN 20 MG TAB PO SCH (22:28)
[2022-10-07] VITALS (10 sets, daily range): BP systolic 118–125; BP diastolic 53–69; PULSE 49–63; RESP 18–20; TEMP 97–97.3; O2SAT 95–98
[2022-10-07] MEDS: IPRATROPIUM BROM 0.5 MG/2.5ML INH SOL NEB SCH ×3 (00:17→12:16)
[2022-10-07] MEDS: ALBUTEROL SULF 2.5 MG/0.5ML(0.5%) NEB SOLN NEB SCH ×3 (00:17→12:16)
[2022-10-07] MEDS: MORPHINE SULFATE INJ 2 MG/ml SYRG IV PRN ×2 (01:39→06:42)
[2022-10-07] MEDS: BUMETANIDE 2.5mg/10ml (0.25 mg/ml) INJ IV SCH (05:04)
[2022-10-07] MEDS: SODIUM CHLOR 0.9% PF (SALINE LOCK) 10ML VIAL/SYR IV SCH (05:05)
[2022-10-07] MEDS: hydrALAZINE HCL 25 MG TAB PO SCH (05:05)
[2022-10-07] MEDS: ACCU-CHEK COMFORT CURVE STRIP VI SCH ×2 (06:27→11:39)
[2022-10-07] MEDS: InsuLIN REG 1unit/0.01ml Soln (100units/ml) SC SCH ×2 (06:28→11:39)
[2022-10-07] MEDS: methylPREDNISolone SOD SUCC 40 MG/ML VL IV SCH (09:17)
[2022-10-07] MEDS: GABAPENTIN 400 MG CAP PO SCH (09:18)
[2022-10-07] MEDS: ENOXAPARIN SOD 40 MG/0.4 ML SYRINGE SC SCH (09:18)
[2022-10-07] MEDS: ASPirin-EC 81 mg tab PO SCH (09:18)
[2022-10-07] MEDS: amLODIPine BESYLATE 5 MG TAB PO SCH (09:18)
[2022-10-07] MEDS: ISOSORBIDE MONONITRATE ER 60 MG TAB PO SCH (09:19)
[2022-10-07] MEDS: CLOPIDOGREL BISULFATE 75 MG TAB PO SCH (09:19)
[2022-10-07] MEDS: BENAZEPRIL HCL 10 MG TAB PO SCH (11:13)
[2022-10-07] MEDS: HYDROcodone-ACET 10/325MG TAB PO PRN (11:30)
== END 2022-10-07 14:30 | disposition home or self-care (01) | DRG 291 ==
LOC: ER 13:17 → EDUNIT# 13:17 → EDBD 13:17 → TELE 18:51 → TELE-CENTR 23:40
PROVIDERS: ADMIT Nurse Practitioner Family; ATTEND Internal Medicine
PROC: 5A09357 Assistance with Respiratory Ventilation, Less than 24 Consecutive Hours, Continuous Positive Airway Pressure (ICD-10-PCS; principal; 2022-10-04)
PROC: 5A09357 Assistance with Respiratory Ventilation, Less than 24 Consecutive Hours, Continuous Positive Airway Pressure (ICD-10-PCS; 2022-10-05)
PROC: 5A09357 Assistance with Respiratory Ventilation, Less than 24 Consecutive Hours, Continuous Positive Airway Pressure (ICD-10-PCS; 2022-10-06)
PROC: 5A09357 Assistance with Respiratory Ventilation, Less than 24 Consecutive Hours, Continuous Positive Airway Pressure (ICD-10-PCS; 2022-10-07)
DX: I13.0 Hypertensive heart and chronic kidney disease with heart failure and stage 1 through stage 4 chronic kidney disease, or unspecified chronic kidney disease (principal); I50.43 Acute on chronic combined systolic (congestive) and diastolic (congestive) heart failure; J96.21 Acute and chronic respiratory failure with hypoxia; J44.1 Chronic obstructive pulmonary disease with (acute) exacerbation; E44.0 Moderate protein-calorie malnutrition; Z68.43 Body mass index [BMI] 50.0-59.9, adult; J98.11 Atelectasis; E11.22 Type 2 diabetes mellitus with diabetic chronic kidney disease; E66.01 Morbid (severe) obesity due to excess calories; E78.5 Hyperlipidemia, unspecified; F17.210 Nicotine dependence, cigarettes, uncomplicated; G47.33 Obstructive sleep apnea (adult) (pediatric); K21.9 Gastro-esophageal reflux disease without esophagitis; R79.89 Other specified abnormal findings of blood chemistry; F32.A Depression, unspecified; I48.0 Paroxysmal atrial fibrillation; F41.9 Anxiety disorder, unspecified; I25.10 Atherosclerotic heart disease of native coronary artery without angina pectoris; N18.9 Chronic kidney disease, unspecified; Z81.8 Family history of other mental and behavioral disorders; Z82.3 Family history of stroke; Z82.49 Family history of ischemic heart disease and other diseases of the circulatory system; Z82.5 Family history of asthma and other chronic lower respiratory diseases; Z83.3 Family history of diabetes mellitus; Z86.73 Personal history of transient ischemic attack (TIA), and cerebral infarction without residual deficits; Z98.61 Coronary angioplasty status; Z99.81 Dependence on supplemental oxygen; Z90.49 Acquired absence of other specified parts of digestive tract
CPT/HCPCS: 36415; 36600; 71045; 71275; 80053; 81001; 82805; 82962; 83735; 84484; 85025; 85379; 87081; 93005; 93306; 93971; 94640; 94660; 96374; 96375; 96376; G0378; J1815; J2405

== ENCOUNTER 2022-12-28 12:47 | Inpatient (IN) | payer BC, OTHER ==
[~2022-12-28] VITALS: Ht 172.7 cm; Wt 161.2 kg
[~2022-12-28 12:47] MED LIST changes: +BUME2TAB5 PO; -FURO1TAB33 PO
[2022-12-28 14:03] LABS: Basophils # (auto) 0.1 10 ^3/uL (0-0.2); Basophils % (auto) 0.7 % (0.0-2.0); Eosinophils # (auto) 0.4 10 ^3/uL (0-0.8); Eosinophils % (auto) 4.3 % (0.0-7.0); Hematocrit 35.6 % (41.0-53.0); Hemoglobin 11.5 g/dL (13.5-17.5); Lymphocytes # (auto) 2.1 10 ^3/uL (0.4-5.4); Lymphocytes % (auto) 24.5 % (10.0-50.0); Mean Corpuscular Hemoglobin 29.1 pg (28.0-32.0); Mean Corpuscular Hgb Conc. 32.1 g/dL (32.0-36.0); Mean Corpuscular Volume 90.6 fL (80.0-100.0); Monocytes # (auto) 0.9 10 ^3/uL (0-1.3); Monocytes % (auto) 10.8 % (0.0-12.0); Neutrophils # (auto) 5.2 10 ^3/uL (1.6-8.6); Neutrophils % (auto) 59.7 % (37.0-80.0); Red Blood Cells 3.94 10^6/uL (4.5-5.90); Red Cell Distribution Width 14.2 % (11.8-14.3); White Blood Cell 8.7 10^3/uL (4.4-10.8)
[2022-12-28 14:22] LABS: Alanine Aminotransferase 35 U/L (7-40); Albumin 3.8 g/dL (3.2-4.8); Alkaline Phosphatase 81 U/L (46-116); Anion Gap 6 (5-15); Aspartate Aminotransferase 44 U/L (13-40); BUN/Creatinine Ratio 21.2 (10.0-20.0); Bilirubin, Total 0.4 mg/dL (0.2-1.0); Blood Urea Nitrogen 39 mg/dL (9-23); Calcium 9.5 mg/dL (8.5-10.1); Carbon Dioxide 34 mmol/L (20-30); Chloride 102 mmol/L (98-107); Glucose 98 mg/dL (74-106); Potassium 4.1 mmol/L (3.5-5.1); Sodium 142 mmol/L (136-145); Total Protein 6.6 g/dL (5.7-8.2)
[2022-12-28] MEDS ORDERED: ACETAMINOPHEN 325 MG TAB PO ONE (14:30)
[2022-12-28] MEDS ORDERED: LORazepam 2MG/ML-1ML VIAL IV ONE ×2 (14:30)
[2022-12-28] MEDS ORDERED: MORPHINE SULFATE 4 MG/ML SYR/VIAL IV ONE ×2 (14:30→22:00)
[2022-12-28] MEDS ORDERED: NITROGLYCERIN 0.2MG/HR TOPICAL PATCH TD ONE (14:30)
[2022-12-28] MEDS ORDERED: ASPirin 81 mg TAB PO ONE (14:30)
[2022-12-28] MEDS ORDERED: ONDANSETRON HCL 4 MG/2 ML VIAL IV ONE ×2 (14:30→22:00)
[2022-12-28 15:03] LABS: INR 1.05 (0.9-1.15); Partial Thromboplastin Time 26.8 SEC (24.5-34.5)
[2022-12-28] MEDS ORDERED: HYDROcodone-ACET 10/325MG TAB PO ONE (17:15)
[2022-12-28 19:30] VITALS: PULSE 20; RESP 20; O2SAT 95
[2022-12-28] MEDS: cefTRIAXone 1GM/50ML D5W 50 ML IV SCH (21:13)
[2022-12-28] MEDS ORDERED: KETOROLAC TROMETH 30 MG/ML 1ML VIAL IV ONE (22:00)
[2022-12-28 23:38] LABS: Urine Bacteria FEW /hpf (None Seen); Urine Blood 3+ /uL (Negative); Urine Clarity Clear (Clear); Urine Color Yellow (Yellow); Urine Hyaline Cast FEW /lpf (0 - 2); Urine Protein, UAD Negative (Negative); Urine Specific Gravity 1.013 (1.001-1.035); Urine Urobilinogen Normal (Negative); Urine WBC 19 /hpf (0 - 3)
[2022-12-29 09:00] VITALS: PULSE 60; RESP 16; O2SAT 95
[2022-12-29] MEDS ORDERED: MORPHINE SULFATE INJ 2 MG/ml SYRG IV PRN (09:15)
[2022-12-29] MEDS ORDERED: ONDANSETRON HCL 4 MG/2 ML VIAL IV PRN (09:15)
[2022-12-29] MEDS ORDERED: NITROGLYCERIN 0.4 MG SL TAB SL PRN (09:15)
[2022-12-29] MEDS ORDERED: HYDROcodone-ACET 5/325MG TAB PO PRN (09:15)
[2022-12-29] MEDS ORDERED: ACETAMINOPHEN 325 MG TAB PO PRN (09:15)
[2022-12-29] MEDS ORDERED: cefTRIAXone 1GM/50ML D5W 50 ML IV SCH (10:00)
[2022-12-29] MEDS: MORPHINE SULFATE INJ 2 MG/ml SYRG IV PRN (10:04)
[2022-12-29] MEDS: cefTRIAXone 1GM/50ML D5W 50 ML IV SCH (12:17)
[2022-12-29] MEDS ORDERED: NYSTATIN TOPICAL POWDER 15GM TOP SCH (13:26)
[2022-12-29] MEDS: FLUCONAZOLE 200MG/100ML 100 ML IV SCH (13:52)
[2022-12-29] MEDS: HYDROcodone-ACET 10/325MG TAB PO PRN ×2 (14:41→18:49)
[2022-12-29] MEDS: CEFEPIME 2GM/50ML NS 50 ML IV SCH (15:05)
[2022-12-29] MEDS: BUMETANIDE 1 MG TAB PO SCH (18:48)
[2022-12-29 20:00] VITALS: PULSE 55; RESP 12; O2SAT 98
[2022-12-29] MEDS: METOPROLOL TARTRATE 25 MG TAB PO SCH (22:00)
[2022-12-29] MEDS: HEPARIN SODIUM (PORCINE) 5000 UNITS/ML 1ML VIAL SC SCH (22:24)
[2022-12-29] MEDS: ATORVASTATIN 20 MG TAB PO SCH (22:30)
[2022-12-30] VITALS (10 sets, daily range): BP systolic 123–141; BP diastolic 39–60; PULSE 48–84; RESP 17–19; TEMP 37; O2SAT 96–99
[2022-12-30] MEDS: CEFEPIME 2GM/50ML NS 50 ML IV SCH ×3 (02:41→22:38)
[2022-12-30] MEDS: MORPHINE SULFATE INJ 2 MG/ml SYRG IV PRN ×2 (05:30→10:48)
[2022-12-30] MEDS: BUMETANIDE 1 MG TAB PO SCH ×3 (05:31→22:39)
[2022-12-30 06:05] LABS: Basophils # (auto) 0 10 ^3/uL (0-0.2); Basophils % (auto) 0.6 % (0.0-2.0); Eosinophils # (auto) 0.4 10 ^3/uL (0-0.8); Eosinophils % (auto) 5.7 % (0.0-7.0); Hematocrit 35.6 % (41.0-53.0); Hemoglobin 11.5 g/dL (13.5-17.5); Lymphocytes # (auto) 2.6 10 ^3/uL (0.4-5.4); Lymphocytes % (auto) 33.8 % (10.0-50.0); Mean Corpuscular Hemoglobin 29.2 pg (28.0-32.0); Mean Corpuscular Hgb Conc. 32.2 g/dL (32.0-36.0); Mean Corpuscular Volume 90.8 fL (80.0-100.0); Monocytes # (auto) 0.9 10 ^3/uL (0-1.3); Monocytes % (auto) 11.3 % (0.0-12.0); Neutrophils # (auto) 3.7 10 ^3/uL (1.6-8.6); Neutrophils % (auto) 48.6 % (37.0-80.0); Nucleated Red Blood Cells % 0.1 %; Red Blood Cells 3.92 10^6/uL (4.5-5.90); Red Cell Distribution Width 14.2 % (11.8-14.3); White Blood Cell 7.6 10^3/uL (4.4-10.8)
[2022-12-30 06:17] LABS: Anion Gap 5 (5-15); Carbon Dioxide 32 mmol/L (20-30); Chloride 105 mmol/L (98-107); Potassium 4.3 mmol/L (3.5-5.1); Sodium 142 mmol/L (136-145)
[2022-12-30 06:23] LABS: BUN/Creatinine Ratio 22.2 (10.0-20.0); Blood Urea Nitrogen 46 mg/dL (9-23); Glucose 84 mg/dL (74-106)
[2022-12-30] MEDS: ASPirin 81 mg TAB PO SCH (10:47)
[2022-12-30] MEDS: HEPARIN SODIUM (PORCINE) 5000 UNITS/ML 1ML VIAL SC SCH ×2 (10:53→22:00)
[2022-12-30] MEDS: FLUCONAZOLE 200MG/100ML 100 ML IV SCH (11:57)
[2022-12-30] MEDS: ISOSORBIDE MONONITRATE ER 60 MG TAB PO SCH (12:05)
[2022-12-30] MEDS: METOPROLOL TARTRATE 25 MG TAB PO SCH ×2 (12:06→22:00)
[2022-12-30] MEDS: HYDROcodone-ACET 10/325MG TAB PO PRN (19:51)
[2022-12-30] MEDS: ATORVASTATIN 20 MG TAB PO SCH (22:00)
[2022-12-31] VITALS (7 sets, daily range): BP systolic 111–139; BP diastolic 40–72; PULSE 53–63; RESP 17–21; TEMP 98.2–98.7; O2SAT 93–98
[2022-12-31] MEDS: HYDROcodone-ACET 10/325MG TAB PO PRN (03:15)
[2022-12-31] MEDS: FLUCONAZOLE 200MG/100ML 100 ML IV SCH (09:49)
[2022-12-31] MEDS: ASPirin 81 mg TAB PO SCH (09:53)
[2022-12-31] MEDS: ISOSORBIDE MONONITRATE ER 60 MG TAB PO SCH (09:53)
[2022-12-31] MEDS: METOPROLOL TARTRATE 25 MG TAB PO SCH ×2 (09:53→20:54)
[2022-12-31] MEDS: HEPARIN SODIUM (PORCINE) 5000 UNITS/ML 1ML VIAL SC SCH ×2 (09:56→21:04)
[2022-12-31] MEDS: CEFEPIME 2GM/50ML NS 50 ML IV SCH (13:59)
[2022-12-31] MEDS: HYDROcodone-ACET 5/325MG TAB PO PRN ×2 (14:05→23:04)
[2022-12-31] MEDS: MORPHINE SULFATE INJ 2 MG/ml SYRG IV PRN ×2 (15:55→20:48)
[2022-12-31] MEDS: BUMETANIDE 1 MG TAB PO SCH ×2 (17:45→17:46)
[2022-12-31] MEDS: ATORVASTATIN 20 MG TAB PO SCH (20:53)
[2023-01-01] MEDS: MORPHINE SULFATE INJ 2 MG/ml SYRG IV PRN ×3 (01:57→10:18)
[2023-01-01] MEDS: CEFEPIME 2GM/50ML NS 50 ML IV SCH (01:57)
[2023-01-01 05:00] VITALS: BP 131/49; PULSE 49; RESP 18; TEMP 97.4; O2SAT 92
[2023-01-01] MEDS: BUMETANIDE 1 MG TAB PO SCH (06:09)
[2023-01-01 08:00] VITALS: BP 132/61; PULSE 53; PULSE 54; RESP 18; TEMP 98.7; O2SAT 94
[2023-01-01 08:53] VITALS: BP 132/61; PULSE 54; RESP 18; TEMP 98.7; O2SAT 94
[2023-01-01 09:27] LABS: Basophils # (auto) 0 10 ^3/uL (0-0.2); Basophils % (auto) 0.7 % (0.0-2.0); Eosinophils # (auto) 0.3 10 ^3/uL (0-0.8); Eosinophils % (auto) 4.2 % (0.0-7.0); Hematocrit 34.9 % (41.0-53.0); Hemoglobin 11.2 g/dL (13.5-17.5); Lymphocytes # (auto) 1.9 10 ^3/uL (0.4-5.4); Lymphocytes % (auto) 31.2 % (10.0-50.0); Mean Corpuscular Hemoglobin 28.9 pg (28.0-32.0); Mean Corpuscular Hgb Conc. 32.1 g/dL (32.0-36.0); Mean Corpuscular Volume 89.9 fL (80.0-100.0); Monocytes # (auto) 0.7 10 ^3/uL (0-1.3); Monocytes % (auto) 10.7 % (0.0-12.0); Neutrophils # (auto) 3.3 10 ^3/uL (1.6-8.6); Neutrophils % (auto) 53.2 % (37.0-80.0); Red Blood Cells 3.88 10^6/uL (4.5-5.90); Red Cell Distribution Width 14.2 % (11.8-14.3); White Blood Cell 6.2 10^3/uL (4.4-10.8)
[2023-01-01 09:36] LABS: Chloride 109 mmol/L (98-107); Potassium 3.9 mmol/L (3.5-5.1); Sodium 145 mmol/L (136-145)
[2023-01-01 09:37] LABS: Anion Gap 4 (5-15); Calcium 9.6 mg/dL (8.5-10.1); Carbon Dioxide 32 mmol/L (20-30)
[2023-01-01 09:42] LABS: BUN/Creatinine Ratio 19.8 (10.0-20.0); Blood Urea Nitrogen 24 mg/dL (9-23); Glucose 101 mg/dL (74-106)
[2023-01-01] MEDS: METOPROLOL TARTRATE 25 MG TAB PO SCH (10:00)
[2023-01-01] MEDS ORDERED: LINEZOLID 600MG/300ML 300 ML IV SCH (10:00)
[2023-01-01] MEDS: FLUCONAZOLE 200MG/100ML 100 ML IV SCH (10:14)
[2023-01-01] MEDS: ASPirin 81 mg TAB PO SCH (10:17)
[2023-01-01] MEDS: ISOSORBIDE MONONITRATE ER 60 MG TAB PO SCH (10:17)
[2023-01-01] MEDS: HEPARIN SODIUM (PORCINE) 5000 UNITS/ML 1ML VIAL SC SCH (10:24)
[2023-01-01] MEDS ORDERED: NYS15PW TOP (10:53)
[2023-01-01] MEDS ORDERED: LINE1TAB6 PO (10:53)
[2023-01-01] MEDS ORDERED: CEPH250C PO (10:53)
[2023-01-01] MEDS ORDERED: NYS15TP TOP (10:53)
[2023-01-01 13:28] VITALS: BP 153/66; PULSE 60; RESP 18; TEMP 98.7; O2SAT 96
[2023-01-01 13:48] VITALS: BP 132/61; PULSE 54; TEMP 37.1
[2023-01-01 16:29] VITALS: BP 148/72; PULSE 61; RESP 18; TEMP 98.7; O2SAT 94
== END 2023-01-01 17:22 | disposition home or self-care (01) | DRG 698 ==
LOC: EDBD 12:47 → ER 12:47 → EDSEX 12:47 → TELE-WESTW 12-29 09:14 → TELE 12-29 09:14 → TELE-WESTW 12-29 23:35
PROVIDERS: ADMIT Internal Medicine; ATTEND Family Medicine
DX: T83.511A Infection and inflammatory reaction due to indwelling urethral catheter, initial encounter (principal); A41.9 Sepsis, unspecified organism; I50.23 Acute on chronic systolic (congestive) heart failure; N17.0 Acute kidney failure with tubular necrosis; I13.0 Hypertensive heart and chronic kidney disease with heart failure and stage 1 through stage 4 chronic kidney disease, or unspecified chronic kidney disease; Z68.43 Body mass index [BMI] 50.0-59.9, adult; E11.22 Type 2 diabetes mellitus with diabetic chronic kidney disease; E66.01 Morbid (severe) obesity due to excess calories; E78.5 Hyperlipidemia, unspecified; I25.10 Atherosclerotic heart disease of native coronary artery without angina pectoris; I48.91 Unspecified atrial fibrillation; J44.89 Other specified chronic obstructive pulmonary disease; B95.8 Unspecified staphylococcus as the cause of diseases classified elsewhere; Y83.8 Other surgical procedures as the cause of abnormal reaction of the patient, or of later complication, without mention of misadventure at the time of the procedure; N18.9 Chronic kidney disease, unspecified; N39.0 Urinary tract infection, site not specified; R33.9 Retention of urine, unspecified; K21.9 Gastro-esophageal reflux disease without esophagitis; S31.119A Laceration without foreign body of abdominal wall, unspecified quadrant without penetration into peritoneal cavity, initial encounter; X58.XXXA Exposure to other specified factors, initial encounter; Z95.5 Presence of coronary angioplasty implant and graft; I25.2 Old myocardial infarction; Z81.8 Family history of other mental and behavioral disorders; Z82.3 Family history of stroke; Z82.49 Family history of ischemic heart disease and other diseases of the circulatory system; Z82.5 Family history of asthma and other chronic lower respiratory diseases; Z83.3 Family history of diabetes mellitus; Z90.49 Acquired absence of other specified parts of digestive tract; Z86.73 Personal history of transient ischemic attack (TIA), and cerebral infarction without residual deficits; Z74.01 Bed confinement status; Y93.89 Activity, other specified; Y92.89 Other specified places as the place of occurrence of the external cause; Y99.8 Other external cause status
CPT/HCPCS: 36415; 71045; 74176; 80048; 80053; 81001; 83605; 83735; 83880; 84443; 84484; 85025; 85610; 85730; 87040; 87086; 87088; 87186; 93005; 96374; 96375; 97116; 97163; G0378; J0692; J0696; J1450; J1885; J2405

== ENCOUNTER 2023-01-27 12:54 | Inpatient (IN) | payer BC, OTHER ==
[~2023-01-27] VITALS: Ht 177.8 cm; Wt 163.0 kg
[~2023-01-27 12:54] MED LIST changes: -CLOP75TA70 PO; -NITR0.4S29 SL
[2023-01-27 13:08] VITALS: PULSE 68; RESP 17; O2SAT 100
[2023-01-27] MEDS ORDERED: LORazepam 2MG/ML-1ML VIAL IM ONE (13:15)
[2023-01-27] MEDS ORDERED: ASPirin-EC 325mg tab PO ONE (13:15)
[2023-01-27 13:38] LABS: Basophils # (auto) 0 10 ^3/uL (0-0.2); Basophils % (auto) 0.6 % (0.0-2.0); Eosinophils # (auto) 0.3 10 ^3/uL (0-0.8); Eosinophils % (auto) 3.4 % (0.0-7.0); Hematocrit 39.3 % (41.0-53.0); Hemoglobin 12.6 g/dL (13.5-17.5); Lymphocytes # (auto) 4.7 10 ^3/uL (0.4-5.4); Lymphocytes % (auto) 52.1 % (10.0-50.0); Mean Corpuscular Hemoglobin 29.1 pg (28.0-32.0); Mean Corpuscular Volume 91.1 fL (80.0-100.0); Monocytes # (auto) 0.7 10 ^3/uL (0-1.3); Monocytes % (auto) 7.8 % (0.0-12.0); Neutrophils # (auto) 3.2 10 ^3/uL (1.6-8.6); Neutrophils % (auto) 36.1 % (37.0-80.0); Nucleated Red Blood Cells % 0.1 %; Red Blood Cells 4.32 10^6/uL (4.5-5.90); Red Cell Distribution Width 14.3 % (11.8-14.3); White Blood Cell 8.9 10^3/uL (4.4-10.8)
[2023-01-27 13:49] LABS: INR 1.03 (0.9-1.15); Prothrombin Time 10.8 sec (9.3-11.8)
[2023-01-27 13:58] LABS: Base Excess 2.5 mmol/L (-2.0-2.0)
[2023-01-27 14:05] LABS: Alanine Aminotransferase 22 U/L (7-40); Albumin 4.1 g/dL (3.2-4.8); Alkaline Phosphatase 76 U/L (46-116); Anion Gap 7 (5-15); Aspartate Aminotransferase 28 U/L (13-40); Blood Alcohol < 3.0 mg/dL (<10); Blood Urea Nitrogen 40 mg/dL (9-23); Calcium 9.5 mg/dL (8.7-10.4); Carbon Dioxide 30 mmol/L (20-30); Chloride 105 mmol/L (98-107); Glucose 98 mg/dL (74-106); Lipase 48 U/L (12-53); Potassium 4.3 mmol/L (3.5-5.1); Sodium 142 mmol/L (136-145)
[2023-01-27 14:06] LABS: Bilirubin, Total 0.5 mg/dL (0.2-1.0); Total Protein 7.3 g/dL (5.7-8.2)
[2023-01-27 14:12] LABS: Salicylate < 3.0 mg/dL (2.8-20.0)
[2023-01-27 14:22] LABS: Acetaminophen < 2.0 UG/ML (10.0-20.0)
[2023-01-27] MEDS ORDERED: levETIRAcetam 1000 mg/100ml 100 ML IV ONE (18:00)
[2023-01-27] MEDS ORDERED: LORazepam 2MG/ML-1ML VIAL IV PRN (18:15)
[2023-01-27 19:45] VITALS: O2SAT 97
[2023-01-27] MEDS: ONDANSETRON HCL 4 MG/2 ML VIAL IV PRN (21:36)
[2023-01-27] MEDS: MORPHINE SULFATE INJ 2 MG/ml SYRG IV PRN (21:40)
[2023-01-27] MEDS: hydrALAZINE HCL 25 MG TAB PO SCH (22:00)
[2023-01-27] MEDS ORDERED: ATORVASTATIN 20 MG TAB PO SCH (22:00)
[2023-01-27] MEDS: ATORVASTATIN 20 MG TAB PO SCH (22:53)
[2023-01-27] MEDS: RANOLAZINE ER 500 MG TAB PO SCH (22:53)
[2023-01-27] MEDS: buPROPion HCL 75 MG TAB PO SCH (22:53)
[2023-01-28] VITALS (8 sets, daily range): BP systolic 105–141; BP diastolic 45–72; PULSE 20–65; RESP 16–22; TEMP 97.5–98.2; O2SAT 90–99
[2023-01-28] MEDS: MORPHINE SULFATE INJ 2 MG/ml SYRG IV PRN ×3 (03:47→17:57)
[2023-01-28 05:34] LABS: Basophils # (auto) 0 10 ^3/uL (0-0.2); Basophils % (auto) 0.5 % (0.0-2.0); Eosinophils # (auto) 0.2 10 ^3/uL (0-0.8); Eosinophils % (auto) 2.7 % (0.0-7.0); Hematocrit 34.9 % (41.0-53.0); Hemoglobin 11.3 g/dL (13.5-17.5); Lymphocytes # (auto) 1.9 10 ^3/uL (0.4-5.4); Lymphocytes % (auto) 23.1 % (10.0-50.0); Mean Corpuscular Hemoglobin 28.9 pg (28.0-32.0); Mean Corpuscular Hgb Conc. 32.5 g/dL (32.0-36.0); Monocytes # (auto) 0.8 10 ^3/uL (0-1.3); Monocytes % (auto) 9.1 % (0.0-12.0); Neutrophils # (auto) 5.4 10 ^3/uL (1.6-8.6); Neutrophils % (auto) 64.6 % (37.0-80.0); Nucleated Red Blood Cells % 0.1 %; Red Blood Cells 3.92 10^6/uL (4.5-5.90); Red Cell Distribution Width 14.5 % (11.8-14.3); White Blood Cell 8.3 10^3/uL (4.4-10.8)
[2023-01-28] MEDS: hydrALAZINE HCL 25 MG TAB PO SCH ×3 (05:54→22:35)
[2023-01-28] MEDS: BUMETANIDE 2.5mg/10ml (0.25 mg/ml) INJ IV SCH ×2 (05:55→19:08)
[2023-01-28 05:57] LABS: Alanine Aminotransferase 19 U/L (7-40); Albumin 3.7 g/dL (3.2-4.8); Alkaline Phosphatase 61 U/L (46-116); Anion Gap 7 (5-15); Aspartate Aminotransferase 18 U/L (13-40); BUN/Creatinine Ratio 20.5 (10.0-20.0); Blood Urea Nitrogen 36 mg/dL (9-23); Calcium 9.4 mg/dL (8.5-10.1); Carbon Dioxide 29 mmol/L (20-30); Chloride 106 mmol/L (98-107); Cholesterol 119 mg/dL (< 200); HDL Cholesterol 38 mg/dL (40-59); LDL Cholesterol 77 mg/dL (< 100); Potassium 4.6 mmol/L (3.5-5.1); Sodium 142 mmol/L (136-145); Triglycerides 37 mg/dL (< 150)
[2023-01-28 05:58] LABS: Bilirubin, Total 0.4 mg/dL (0.2-1.0); Total Protein 6.7 g/dL (5.7-8.2)
[2023-01-28] MEDS ORDERED: levETIRAcetam 1000 mg/100ml 100 ML IV SCH (06:00)
[2023-01-28 06:11] LABS: Glucose 97 mg/dL (74-106)
[2023-01-28] MEDS ORDERED: amLODIPine BESYLATE 5 MG TAB PO SCH (10:00)
[2023-01-28] MEDS: ASPirin-EC 81 mg tab PO SCH (10:00)
[2023-01-28] MEDS: ISOSORBIDE MONONITRATE ER 60 MG TAB PO SCH (10:00)
[2023-01-28] MEDS: Metoprolol Succinate (Toprol Xl) 25 MG TABLETS PO SCH (10:00)
[2023-01-28] MEDS: BENAZEPRIL HCL 10 MG TAB PO SCH (10:00)
[2023-01-28] MEDS: ONDANSETRON HCL 4 MG/2 ML VIAL IV PRN (11:13)
[2023-01-28] MEDS: GABAPENTIN 400 MG CAP PO SCH ×2 (11:13→22:36)
[2023-01-28] MEDS: ENOXAPARIN SOD 40 MG/0.4 ML SYRINGE SC SCH (11:14)
[2023-01-28] MEDS: buPROPion HCL 75 MG TAB PO SCH ×2 (11:14→22:36)
[2023-01-28] MEDS: RANOLAZINE ER 500 MG TAB PO SCH ×2 (13:42→22:37)
[2023-01-28] MEDS ORDERED: HYDROcodone-ACET 5/325MG TAB PO PRN (14:00)
[2023-01-28] MEDS ORDERED: ACETAMINOPHEN 325 MG TAB PO PRN (14:00)
[2023-01-28] MEDS: traZODone HCL 50 MG TAB PO SCH (22:34)
[2023-01-28] MEDS: ATORVASTATIN 20 MG TAB PO SCH (22:35)
[2023-01-28] MEDS: levETIRAcetam 500 MG TAB PO SCH (22:37)
[2023-01-29] MEDS: MORPHINE SULFATE INJ 2 MG/ml SYRG IV PRN ×3 (00:41→23:42)
[2023-01-29 05:00] VITALS: BP 107/45; PULSE 61; RESP 16; TEMP 97.6; O2SAT 91
[2023-01-29] MEDS: BUMETANIDE 2.5mg/10ml (0.25 mg/ml) INJ IV SCH ×2 (05:34→17:14)
[2023-01-29] MEDS: hydrALAZINE HCL 25 MG TAB PO SCH (05:34)
[2023-01-29 06:51] LABS: Basophils # (auto) 0.1 10 ^3/uL (0-0.2); Basophils % (auto) 0.7 % (0.0-2.0); Eosinophils # (auto) 0.3 10 ^3/uL (0-0.8); Hematocrit 36.5 % (41.0-53.0); Hemoglobin 11.7 g/dL (13.5-17.5); Lymphocytes # (auto) 2.3 10 ^3/uL (0.4-5.4); Lymphocytes % (auto) 28.2 % (10.0-50.0); Mean Corpuscular Hgb Conc. 32.1 g/dL (32.0-36.0); Mean Corpuscular Volume 90.3 fL (80.0-100.0); Monocytes # (auto) 0.7 10 ^3/uL (0-1.3); Monocytes % (auto) 8.9 % (0.0-12.0); Neutrophils # (auto) 4.7 10 ^3/uL (1.6-8.6); Neutrophils % (auto) 58.2 % (37.0-80.0); Red Blood Cells 4.04 10^6/uL (4.5-5.90); Red Cell Distribution Width 14.2 % (11.8-14.3)
[2023-01-29 07:10] LABS: Alanine Aminotransferase 19 U/L (7-40); Alkaline Phosphatase 63 U/L (46-116)
[2023-01-29 07:11] LABS: Albumin 3.6 g/dL (3.2-4.8); Anion Gap 6 (5-15); Aspartate Aminotransferase 18 U/L (13-40); BUN/Creatinine Ratio 18.8 (10.0-20.0); Bilirubin, Total 0.4 mg/dL (0.2-1.0); Blood Urea Nitrogen 34 mg/dL (9-23); Calcium 9.2 mg/dL (8.5-10.1); Carbon Dioxide 30 mmol/L (20-30); Chloride 105 mmol/L (98-107); Glucose 92 mg/dL (74-106); Phosphorus 4.1 mg/dL (2.4-5.1); Potassium 4.5 mmol/L (3.5-5.1); Sodium 141 mmol/L (136-145); Total Protein 6.6 g/dL (5.7-8.2)
[2023-01-29 07:14] LABS: % Iron Saturation 22.8 % (20-55)
[2023-01-29 07:53] LABS: Magnesium 2.3 mg/dL (1.6-2.6)
[2023-01-29 08:00] VITALS: BP 119/63; PULSE 60; PULSE 61; RESP 21; TEMP 97.8; O2SAT 90
[2023-01-29] MEDS: ENOXAPARIN SOD 40 MG/0.4 ML SYRINGE SC SCH (08:46)
[2023-01-29] MEDS: levETIRAcetam 500 MG TAB PO SCH ×2 (08:46→23:03)
[2023-01-29] MEDS: ASPirin-EC 81 mg tab PO SCH (08:46)
[2023-01-29] MEDS: GABAPENTIN 400 MG CAP PO SCH ×2 (08:47→23:02)
[2023-01-29] MEDS: RANOLAZINE ER 500 MG TAB PO SCH ×2 (08:47→23:03)
[2023-01-29] MEDS: buPROPion HCL 75 MG TAB PO SCH ×2 (08:47→23:01)
[2023-01-29] MEDS: ISOSORBIDE MONONITRATE ER 60 MG TAB PO SCH (08:47)
[2023-01-29] MEDS: BENAZEPRIL HCL 10 MG TAB PO SCH (08:48)
[2023-01-29] MEDS: Metoprolol Succinate (Toprol Xl) 25 MG TABLETS PO SCH (08:48)
[2023-01-29] MEDS ORDERED: BUMETANIDE 2.5mg/10ml (0.25 mg/ml) INJ IV ONE (10:45)
[2023-01-29] MEDS: HYDROcodone-ACET 10/325MG TAB PO PRN ×3 (10:57→20:40)
[2023-01-29] MEDS ORDERED: LACTULOSE 20Gm/30ML SOLN PO ONE (11:30)
[2023-01-29 12:00] VITALS: BP 94/49; PULSE 55; RESP 22; TEMP 97.5; O2SAT 94
[2023-01-29 12:16] LABS: Folate (Folic Acid) 9.47 ng/mL (>5.38)
[2023-01-29 16:00] VITALS: BP 96/36; PULSE 54; RESP 22; TEMP 97.7; O2SAT 94
[2023-01-29 20:00] VITALS: PULSE 57; PULSE 59; RESP 20
[2023-01-29 22:00] VITALS: BP 98/54; PULSE 59; RESP 16; TEMP 97.8; O2SAT 91
[2023-01-29] MEDS: traZODone HCL 50 MG TAB PO SCH (23:01)
[2023-01-29] MEDS: ATORVASTATIN 20 MG TAB PO SCH (23:02)
[2023-01-30] VITALS (7 sets, daily range): BP systolic 99–111; BP diastolic 42–58; PULSE 55–81; RESP 16–19; TEMP 97.1–98.3; O2SAT 91–96
[2023-01-30] MEDS: HYDROcodone-ACET 10/325MG TAB PO PRN ×2 (02:39→13:15)
[2023-01-30] MEDS: BUMETANIDE 2.5mg/10ml (0.25 mg/ml) INJ IV SCH (06:48)
[2023-01-30 06:54] LABS: Basophils # (auto) 0.1 10 ^3/uL (0-0.2); Basophils % (auto) 0.9 % (0.0-2.0); Eosinophils # (auto) 0.4 10 ^3/uL (0-0.8); Eosinophils % (auto) 4.5 % (0.0-7.0); Hematocrit 36.6 % (41.0-53.0); Hemoglobin 11.5 g/dL (13.5-17.5); Lymphocytes # (auto) 2.5 10 ^3/uL (0.4-5.4); Lymphocytes % (auto) 31.5 % (10.0-50.0); Mean Corpuscular Hemoglobin 28.8 pg (28.0-32.0); Mean Corpuscular Hgb Conc. 31.5 g/dL (32.0-36.0); Mean Corpuscular Volume 91.5 fL (80.0-100.0); Monocytes # (auto) 0.8 10 ^3/uL (0-1.3); Monocytes % (auto) 10.6 % (0.0-12.0); Neutrophils # (auto) 4.2 10 ^3/uL (1.6-8.6); Neutrophils % (auto) 52.5 % (37.0-80.0); Nucleated Red Blood Cells % 0.1 %; Red Cell Distribution Width 14.7 % (11.8-14.3); White Blood Cell 7.9 10^3/uL (4.4-10.8)
[2023-01-30 07:05] LABS: Carbon Dioxide 29 mmol/L (20-30); Chloride 103 mmol/L (98-107)
[2023-01-30 07:06] LABS: Anion Gap 5 (5-15); Potassium 4.6 mmol/L (3.5-5.1); Sodium 137 mmol/L (136-145)
[2023-01-30 07:07] LABS: Calcium 9.2 mg/dL (8.7-10.4)
[2023-01-30 07:11] LABS: Glucose 83 mg/dL (74-106)
[2023-01-30 07:12] LABS: BUN/Creatinine Ratio 13.4 (10.0-20.0); Blood Urea Nitrogen 33 mg/dL (9-23); Magnesium 2.4 mg/dL (1.6-2.6)
[2023-01-30 08:06] LABS: RPR Non Reactive (Non Reactive)
[2023-01-30] MEDS: MORPHINE SULFATE INJ 2 MG/ml SYRG IV PRN (08:27)
[2023-01-30] MEDS: ISOSORBIDE MONONITRATE ER 60 MG TAB PO SCH (08:27)
[2023-01-30] MEDS: ASPirin-EC 81 mg tab PO SCH (08:27)
[2023-01-30] MEDS: buPROPion HCL 75 MG TAB PO SCH ×2 (08:27→22:29)
[2023-01-30] MEDS: ENOXAPARIN SOD 40 MG/0.4 ML SYRINGE SC SCH (08:27)
[2023-01-30] MEDS: GABAPENTIN 400 MG CAP PO SCH ×2 (08:28→22:30)
[2023-01-30] MEDS: RANOLAZINE ER 500 MG TAB PO SCH ×2 (08:28→22:33)
[2023-01-30] MEDS: levETIRAcetam 500 MG TAB PO SCH ×2 (08:28→22:30)
[2023-01-30] MEDS: Metoprolol Succinate (Toprol Xl) 25 MG TABLETS PO SCH (11:00)
[2023-01-30] MEDS: BENAZEPRIL HCL 10 MG TAB PO SCH (11:00)
[2023-01-30] MEDS ORDERED: LACTULOSE 20Gm/30ML SOLN PO ONE (12:30)
[2023-01-30] MEDS ORDERED: BUMETANIDE 2.5mg/10ml (0.25 mg/ml) INJ IV SCH (12:30)
[2023-01-30] MEDS: DOPamine 1600MCG/ML D5W 250 ML IV SCH (12:54)
[2023-01-30] MEDS: OCTREOTIDE ACETATE 100 MCG/ML VL SUBCUT SCH ×2 (15:34→22:32)
[2023-01-30 16:38] LABS: Sodium Urine 46 mmol/L (40-220)
[2023-01-30 16:42] LABS: Protein, Urine < 6.0 mg/dL (0.0-11.9)
[2023-01-30 16:45] LABS: Creatinine, Urine 92.56 mg/dL (30.0-125.0); Urine Protein/Creatinine Ratio 0.06
[2023-01-30] MEDS: traZODone HCL 50 MG TAB PO SCH (22:32)
[2023-01-30] MEDS: ATORVASTATIN 20 MG TAB PO SCH (22:33)
[2023-01-31] VITALS (7 sets, daily range): BP systolic 108–135; BP diastolic 48–59; PULSE 56–64; RESP 16–20; TEMP 97.5–98.4; O2SAT 90–97
[2023-01-31] MEDS: MORPHINE SULFATE INJ 2 MG/ml SYRG IV PRN ×3 (00:48→19:57)
[2023-01-31 02:45] LABS: Urine Bacteria NONE SEEN /hpf (None Seen); Urine Blood 3+ /uL (Negative); Urine Clarity Clear (Clear); Urine Color Yellow (Yellow); Urine Hyaline Cast FEW /lpf (0 - 2); Urine Protein, UAD TRACE (Negative); Urine Specific Gravity 1.013 (1.001-1.035); Urine Urobilinogen Normal (Negative); Urine WBC 4 /hpf (0 - 3)
[2023-01-31] MEDS: OCTREOTIDE ACETATE 100 MCG/ML VL SUBCUT SCH ×3 (06:13→21:38)
[2023-01-31] MEDS: DOPamine 1600MCG/ML D5W 250 ML IV SCH (06:16)
[2023-01-31 06:23] LABS: Basophils # (auto) 0.1 10 ^3/uL (0-0.2); Basophils % (auto) 0.5 % (0.0-2.0); Eosinophils # (auto) 0.3 10 ^3/uL (0-0.8); Eosinophils % (auto) 2.9 % (0.0-7.0); Hematocrit 39.3 % (41.0-53.0); Hemoglobin 12.4 g/dL (13.5-17.5); Lymphocytes % (auto) 21.1 % (10.0-50.0); Mean Corpuscular Hemoglobin 29.3 pg (28.0-32.0); Mean Corpuscular Hgb Conc. 31.6 g/dL (32.0-36.0); Mean Corpuscular Volume 92.7 fL (80.0-100.0); Monocytes # (auto) 0.9 10 ^3/uL (0-1.3); Monocytes % (auto) 9.2 % (0.0-12.0); Neutrophils # (auto) 6.4 10 ^3/uL (1.6-8.6); Neutrophils % (auto) 66.3 % (37.0-80.0); Nucleated Red Blood Cells % 0.1 %; Red Blood Cells 4.24 10^6/uL (4.5-5.90); Red Cell Distribution Width 14.2 % (11.8-14.3); White Blood Cell 9.7 10^3/uL (4.4-10.8)
[2023-01-31 06:43] LABS: Alanine Aminotransferase 20 U/L (7-40); Albumin 4.1 g/dL (3.2-4.8); Alkaline Phosphatase 67 U/L (46-116); Anion Gap 7 (5-15); Aspartate Aminotransferase 19 U/L (13-40); BUN/Creatinine Ratio 11.3 (10.0-20.0); Bilirubin, Total 0.5 mg/dL (0.2-1.0); Blood Urea Nitrogen 31 mg/dL (9-23); Calcium 9.4 mg/dL (8.7-10.4); Carbon Dioxide 26 mmol/L (20-30); Chloride 101 mmol/L (98-107); Glucose 125 mg/dL (74-106); Magnesium 2.8 mg/dL (1.6-2.6); Potassium 5.4 mmol/L (3.5-5.1); Sodium 134 mmol/L (136-145); Total Protein 7.6 g/dL (5.7-8.2)
[2023-01-31] MEDS ORDERED: CYANOCOBALAMIN (B-12) 1000 MCG/1 ML VIAL IM ONE (08:00)
[2023-01-31] MEDS: SODIUM ZIRCONIUM CYCL 10 GM PAK PO SCH ×2 (09:47→14:57)
[2023-01-31] MEDS: ENOXAPARIN SOD 40 MG/0.4 ML SYRINGE SC SCH (09:48)
[2023-01-31] MEDS: ASPirin-EC 81 mg tab PO SCH (09:49)
[2023-01-31] MEDS: GABAPENTIN 400 MG CAP PO SCH ×2 (09:49→21:42)
[2023-01-31] MEDS: levETIRAcetam 500 MG TAB PO SCH ×2 (09:49→21:42)
[2023-01-31] MEDS: ISOSORBIDE MONONITRATE ER 60 MG TAB PO SCH (09:50)
[2023-01-31] MEDS: buPROPion HCL 75 MG TAB PO SCH ×2 (09:50→21:43)
[2023-01-31] MEDS: Metoprolol Succinate (Toprol Xl) 25 MG TABLETS PO SCH (09:50)
[2023-01-31] MEDS: RANOLAZINE ER 500 MG TAB PO SCH ×2 (09:50→21:42)
[2023-01-31] MEDS ORDERED: BUMETANIDE 2.5mg/10ml (0.25 mg/ml) INJ IV SCH (10:00)
[2023-01-31] MEDS: ATORVASTATIN 20 MG TAB PO SCH (21:41)
[2023-01-31] MEDS: traZODone HCL 50 MG TAB PO SCH (21:42)
[2023-02-01] MEDS: HYDROcodone-ACET 10/325MG TAB PO PRN ×2 (01:56→16:51)
[2023-02-01] MEDS: DOPamine 1600MCG/ML D5W 250 ML IV SCH (02:00)
[2023-02-01 05:00] VITALS: BP 122/72; PULSE 51; RESP 18; TEMP 98.1; O2SAT 96
[2023-02-01 06:13] LABS: Chloride 104 mmol/L (98-107); Potassium 4.8 mmol/L (3.5-5.1); Sodium 136 mmol/L (136-145)
[2023-02-01 06:14] LABS: Anion Gap 4 (5-15); Carbon Dioxide 28 mmol/L (20-30)
[2023-02-01] MEDS: OCTREOTIDE ACETATE 100 MCG/ML VL SUBCUT SCH ×2 (06:15→14:00)
[2023-02-01 06:19] LABS: BUN/Creatinine Ratio 14.9 (10.0-20.0); Blood Urea Nitrogen 30 mg/dL (9-23); Glucose 115 mg/dL (74-106)
[2023-02-01 06:20] LABS: Magnesium 2.8 mg/dL (1.6-2.6)
[2023-02-01 06:24] LABS: Basophils # (auto) 0 10 ^3/uL (0-0.2); Basophils % (auto) 0.6 % (0.0-2.0); Eosinophils # (auto) 0.2 10 ^3/uL (0-0.8); Eosinophils % (auto) 2.3 % (0.0-7.0); Hematocrit 38.9 % (41.0-53.0); Hemoglobin 12.4 g/dL (13.5-17.5); Lymphocytes # (auto) 1.6 10 ^3/uL (0.4-5.4); Lymphocytes % (auto) 18.9 % (10.0-50.0); Mean Corpuscular Hemoglobin 29.2 pg (28.0-32.0); Mean Corpuscular Hgb Conc. 31.9 g/dL (32.0-36.0); Mean Corpuscular Volume 91.6 fL (80.0-100.0); Monocytes # (auto) 0.9 10 ^3/uL (0-1.3); Monocytes % (auto) 10.7 % (0.0-12.0); Neutrophils # (auto) 5.6 10 ^3/uL (1.6-8.6); Neutrophils % (auto) 67.5 % (37.0-80.0); Red Blood Cells 4.25 10^6/uL (4.5-5.90); Red Cell Distribution Width 13.6 % (11.8-14.3); White Blood Cell 8.4 10^3/uL (4.4-10.8)
[2023-02-01 08:00] VITALS: PULSE 55
[2023-02-01 09:00] VITALS: BP 113/57; PULSE 45; RESP 18; TEMP 98.8; O2SAT 95
[2023-02-01] MEDS: levETIRAcetam 500 MG TAB PO SCH (09:57)
[2023-02-01] MEDS: GABAPENTIN 400 MG CAP PO SCH (09:57)
[2023-02-01] MEDS: buPROPion HCL 75 MG TAB PO SCH (09:58)
[2023-02-01] MEDS: ASPirin-EC 81 mg tab PO SCH (09:58)
[2023-02-01] MEDS: RANOLAZINE ER 500 MG TAB PO SCH (09:59)
[2023-02-01] MEDS: ISOSORBIDE MONONITRATE ER 60 MG TAB PO SCH (09:59)
[2023-02-01] MEDS: ENOXAPARIN SOD 40 MG/0.4 ML SYRINGE SC SCH (09:59)
[2023-02-01] MEDS: Metoprolol Succinate (Toprol Xl) 25 MG TABLETS PO SCH (10:00)
[2023-02-01] MEDS ORDERED: LACTULOSE 20Gm/30ML SOLN PO ONE (11:30)
[2023-02-01] MEDS: MORPHINE SULFATE INJ 2 MG/ml SYRG IV PRN (11:36)
[2023-02-01 12:15] VITALS: BP 113/57; PULSE 55; RESP 18; TEMP 98.8; O2SAT 95
[2023-02-01 13:15] VITALS: BP 104/58; PULSE 51; RESP 18; TEMP 98.1
== END 2023-02-01 18:50 | disposition home or self-care (01) | DRG 291 ==
LOC: ER 12:54 → EDBD 12:54 → TELE 18:01 → TELE-WESTW 23:16
PROVIDERS: ADMIT Internal Medicine Pulmonary Disease; ATTEND Internal Medicine Pulmonary Disease
DX: I13.0 Hypertensive heart and chronic kidney disease with heart failure and stage 1 through stage 4 chronic kidney disease, or unspecified chronic kidney disease (principal); I50.33 Acute on chronic diastolic (congestive) heart failure; J96.21 Acute and chronic respiratory failure with hypoxia; N17.9 Acute kidney failure, unspecified; Z68.43 Body mass index [BMI] 50.0-59.9, adult; E66.01 Morbid (severe) obesity due to excess calories; E78.5 Hyperlipidemia, unspecified; E11.22 Type 2 diabetes mellitus with diabetic chronic kidney disease; D63.1 Anemia in chronic kidney disease; G47.33 Obstructive sleep apnea (adult) (pediatric); N18.31 Chronic kidney disease, stage 3a; N47.1 Phimosis; I95.9 Hypotension, unspecified; R56.9 Unspecified convulsions; E87.5 Hyperkalemia; J44.89 Other specified chronic obstructive pulmonary disease; E83.41 Hypermagnesemia; F32.A Depression, unspecified; F41.9 Anxiety disorder, unspecified; K21.9 Gastro-esophageal reflux disease without esophagitis; I25.10 Atherosclerotic heart disease of native coronary artery without angina pectoris; F17.210 Nicotine dependence, cigarettes, uncomplicated; I25.2 Old myocardial infarction; R62.7 Adult failure to thrive; Z74.01 Bed confinement status; Z79.899 Other long term (current) drug therapy; Z81.8 Family history of other mental and behavioral disorders; Z82.3 Family history of stroke; Z82.49 Family history of ischemic heart disease and other diseases of the circulatory system; Z82.5 Family history of asthma and other chronic lower respiratory diseases; Z83.3 Family history of diabetes mellitus; Z86.73 Personal history of transient ischemic attack (TIA), and cerebral infarction without residual deficits; Z87.440 Personal history of urinary (tract) infections; Z90.49 Acquired absence of other specified parts of digestive tract
CPT/HCPCS: 36415; 36600; 70450; 71045; 76775; 80048; 80053; 80061; 80320; 80329; 81001; 82306; 82570; 82607; 82746; 82805; 83540; 83550; 83690; 83735; 83880; 83970; 84100; 84132; 84156; 84300; 84443; 84484; 85025; 85610; 86592; 87081; 93005; 96365; 96366; 96375; 97110; 97116; 97163; 97530; 99291; G0378; J2405

== ENCOUNTER 2023-02-07 05:12 | Inpatient (IN) | payer BC, OTHER ==
[2023-02-07] VITALS (8 sets, daily range): BP systolic 110; BP diastolic 45; PULSE 46–62; RESP 11–18; TEMP 98.2–98.6; O2SAT 94–100
[~2023-02-07] VITALS: Ht 172.7 cm; Wt 161.3 kg
[2023-02-07] MEDS ORDERED: MORPHINE SULFATE 4 MG/ML SYR/VIAL IV ONE (07:15)
[2023-02-07] MEDS ORDERED: NITROGLYCERIN 2% OINT 1GM PKG TD ONE (07:15)
[2023-02-07 07:28] LABS: Basophils # (auto) 0.1 10 ^3/uL (0-0.2); Basophils % (auto) 0.8 % (0.0-2.0); Eosinophils # (auto) 0.2 10 ^3/uL (0-0.8); Eosinophils % (auto) 2.6 % (0.0-7.0); Hematocrit 37.1 % (41.0-53.0); Lymphocytes # (auto) 2.3 10 ^3/uL (0.4-5.4); Lymphocytes % (auto) 28.9 % (10.0-50.0); Mean Corpuscular Hgb Conc. 32.3 g/dL (32.0-36.0); Monocytes # (auto) 0.7 10 ^3/uL (0-1.3); Monocytes % (auto) 8.7 % (0.0-12.0); Neutrophils # (auto) 4.6 10 ^3/uL (1.6-8.6); Red Blood Cells 4.13 10^6/uL (4.5-5.90); Red Cell Distribution Width 14.7 % (11.8-14.3); White Blood Cell 7.8 10^3/uL (4.4-10.8)
[2023-02-07 07:47] LABS: INR 1.1 (0.9-1.15); Partial Thromboplastin Time 26.1 SEC (24.5-34.5); Prothrombin Time 11.5 sec (9.3-11.8)
[2023-02-07 07:48] LABS: Alanine Aminotransferase 22 U/L (7-40); Albumin 3.5 g/dL (3.2-4.8); Alkaline Phosphatase 66 U/L (46-116); Anion Gap 6 (5-15); Aspartate Aminotransferase 27 U/L (13-40); BUN/Creatinine Ratio 18.4 (10.0-20.0); Blood Urea Nitrogen 26 mg/dL (9-23); Calcium 8.9 mg/dL (8.7-10.4); Carbon Dioxide 29 mmol/L (20-30); Glucose 96 mg/dL (74-106); Magnesium 1.8 mg/dL (1.6-2.6); Potassium 3.4 mmol/L (3.5-5.1)
[2023-02-07 07:49] LABS: Base Excess 2.9 mmol/L (-2.0-2.0)
[2023-02-07 07:49] LABS: Bilirubin, Total 0.4 mg/dL (0.2-1.0); Chloride 114 mmol/L (98-107); Sodium 149 mmol/L (136-145); Total Protein 6.4 g/dL (5.7-8.2)
[2023-02-07] MEDS ORDERED: PIPERACILLIN-TAZO 4.5GM 100 ML IV ONE (08:45)
[2023-02-07] MEDS ORDERED: VANCOMYCIN 1GM/200ML 200 ML IV ONE (08:45)
[2023-02-07 10:28] LABS: Urine Bacteria FEW /hpf (None Seen); Urine Blood Negative /uL (Negative); Urine Clarity Clear (Clear); Urine Hyaline Cast MOD /lpf (0 - 2); Urine Mucus FEW (None Seen); Urine Protein, UAD Negative (Negative); Urine Specific Gravity 1.014 (1.001-1.035); Urine Urobilinogen Normal (Negative); Urine WBC 9 /hpf (0 - 3); Urine pH 5.5 (5.0-8.0)
[2023-02-07 10:29] LABS: Urine Color Straw (Yellow)
[2023-02-07] MEDS ORDERED: NITROGLYCERIN 0.4 MG SL TAB SL PRN (11:30)
[2023-02-07] MEDS ORDERED: ONDANSETRON HCL 4 MG/2 ML VIAL IV PRN (11:30)
[2023-02-07] MEDS ORDERED: HYDROcodone-ACET 5/325MG TAB PO PRN (11:30)
[2023-02-07] MEDS ORDERED: MORPHINE SULFATE INJ 2 MG/ml SYRG IV PRN (11:30)
[2023-02-07] MEDS ORDERED: IPRATROPIUM BROM 0.5 MG/2.5ML INH SOL NEB PRN (11:30)
[2023-02-07] MEDS ORDERED: DOCUSATE SOD 100 MG CAP PO PRN (11:30)
[2023-02-07] MEDS ORDERED: ACETAMINOPHEN 325 MG TAB PO PRN ×2 (11:30)
[2023-02-07] MEDS ORDERED: ALBUTEROL SULF 2.5 MG/0.5ML(0.5%) NEB SOLN NEB PRN (11:30)
[2023-02-07] MEDS ORDERED: PANT40T PO (13:34)
[2023-02-07] MEDS ORDERED: LOS25T PO (13:34)
[2023-02-07] MEDS ORDERED: CLOP75TA70 PO (13:34)
[2023-02-07] MEDS: SODIUM CHLOR 0.9% PF (SALINE LOCK) 10ML VIAL/SYR IV SCH ×2 (14:00→21:56)
[2023-02-07] MEDS: hydrALAZINE HCL 25 MG TAB PO SCH ×2 (14:00→21:57)
[2023-02-07] MEDS: BUMETANIDE 1 MG TAB PO SCH (18:54)
[2023-02-07] MEDS ORDERED: MORPHINE SULFATE 4 MG/ML SYR/VIAL IV PRN (21:15)
[2023-02-07] MEDS: ATORVASTATIN 20 MG TAB PO SCH (21:56)
[2023-02-07] MEDS: GABAPENTIN 400 MG CAP PO SCH (21:56)
[2023-02-08] VITALS (9 sets, daily range): BP systolic 91–155; BP diastolic 41–66; PULSE 48–55; RESP 16–18; TEMP 97.7–98.8; O2SAT 92–99
[2023-02-08] MEDS: PANTOPRAZOLE 40 MG TAB PO SCH (06:05)
[2023-02-08] MEDS: BUMETANIDE 1 MG TAB PO SCH ×2 (06:05→18:00)
[2023-02-08] MEDS: hydrALAZINE HCL 25 MG TAB PO SCH ×3 (06:05→21:17)
[2023-02-08] MEDS: SODIUM CHLOR 0.9% PF (SALINE LOCK) 10ML VIAL/SYR IV SCH ×3 (06:16→21:22)
[2023-02-08 06:56] LABS: Basophils # (auto) 0.1 10 ^3/uL (0-0.2); Basophils % (auto) 0.7 % (0.0-2.0); Eosinophils # (auto) 0.4 10 ^3/uL (0-0.8); Hematocrit 36.4 % (41.0-53.0); Hemoglobin 11.6 g/dL (13.5-17.5); Lymphocytes # (auto) 2.3 10 ^3/uL (0.4-5.4); Lymphocytes % (auto) 31.9 % (10.0-50.0); Mean Corpuscular Hemoglobin 28.6 pg (28.0-32.0); Mean Corpuscular Hgb Conc. 31.9 g/dL (32.0-36.0); Mean Corpuscular Volume 89.6 fL (80.0-100.0); Monocytes # (auto) 0.6 10 ^3/uL (0-1.3); Monocytes % (auto) 8.4 % (0.0-12.0); Red Blood Cells 4.06 10^6/uL (4.5-5.90); Red Cell Distribution Width 14.2 % (11.8-14.3); White Blood Cell 7.3 10^3/uL (4.4-10.8)
[2023-02-08 07:04] LABS: Alanine Aminotransferase 21 U/L (7-40); Albumin 3.5 g/dL (3.2-4.8); Alkaline Phosphatase 55 U/L (46-116); Anion Gap 5 (5-15); Aspartate Aminotransferase 24 U/L (13-40); BUN/Creatinine Ratio 14.8 (10.0-20.0); Bilirubin, Total 0.4 mg/dL (0.2-1.0); Blood Urea Nitrogen 18 mg/dL (9-23); Carbon Dioxide 28 mmol/L (20-30); Chloride 110 mmol/L (98-107); Glucose 85 mg/dL (74-106); Potassium 3.6 mmol/L (3.5-5.1); Sodium 143 mmol/L (136-145); Total Protein 6.5 g/dL (5.7-8.2)
[2023-02-08] MEDS: METOPROLOL SUCCINATE XL 50 MG TAB PO SCH (10:00)
[2023-02-08] MEDS: ASPirin-EC 81 mg tab PO SCH (10:58)
[2023-02-08] MEDS: CLOPIDOGREL BISULFATE 75 MG TAB PO SCH (10:59)
[2023-02-08] MEDS: ISOSORBIDE MONONITRATE ER 60 MG TAB PO SCH (10:59)
[2023-02-08] MEDS: LOSARTAN POTASSIUM 25 MG TAB PO SCH (11:01)
[2023-02-08] MEDS: buPROPion HCL 75 MG TAB PO SCH (11:01)
[2023-02-08] MEDS: GABAPENTIN 400 MG CAP PO SCH ×2 (11:01→21:15)
[2023-02-08] MEDS: LISINOPRIL 20 MG TAB PO SCH (11:02)
[2023-02-08] MEDS: amLODIPine BESYLATE 5 MG TAB PO SCH (11:02)
[2023-02-08] MEDS: OXYCODONE W/ ACETAMINOPHEN 5/325MG TABLET PO PRN ×2 (14:56→21:16)
[2023-02-08] MEDS: ATORVASTATIN 20 MG TAB PO SCH (21:15)
[2023-02-09] VITALS (13 sets, daily range): BP systolic 93–105; BP diastolic 45–65; PULSE 48–55; RESP 17–18; TEMP 97.3–98.4; O2SAT 92–99
[2023-02-09] MEDS: OXYCODONE W/ ACETAMINOPHEN 5/325MG TABLET PO PRN ×4 (03:23→22:45)
[2023-02-09] MEDS: BUMETANIDE 1 MG TAB PO SCH ×2 (06:00→18:00)
[2023-02-09] MEDS: hydrALAZINE HCL 25 MG TAB PO SCH ×3 (06:00→21:53)
[2023-02-09] MEDS: PANTOPRAZOLE 40 MG TAB PO SCH (06:35)
[2023-02-09] MEDS: SODIUM CHLOR 0.9% PF (SALINE LOCK) 10ML VIAL/SYR IV SCH ×3 (06:36→21:53)
[2023-02-09] MEDS: CLOPIDOGREL BISULFATE 75 MG TAB PO SCH (09:50)
[2023-02-09] MEDS: ASPirin-EC 81 mg tab PO SCH (09:50)
[2023-02-09] MEDS: buPROPion HCL 75 MG TAB PO SCH (09:53)
[2023-02-09] MEDS: GABAPENTIN 400 MG CAP PO SCH ×2 (09:53→21:52)
[2023-02-09] MEDS: ISOSORBIDE MONONITRATE ER 60 MG TAB PO SCH (09:53)
[2023-02-09] MEDS: LOSARTAN POTASSIUM 25 MG TAB PO SCH (09:54)
[2023-02-09] MEDS: METOPROLOL SUCCINATE XL 50 MG TAB PO SCH (09:55)
[2023-02-09] MEDS: amLODIPine BESYLATE 5 MG TAB PO SCH (09:55)
[2023-02-09] MEDS: LISINOPRIL 20 MG TAB PO SCH (09:55)
[2023-02-09] MEDS: ATORVASTATIN 20 MG TAB PO SCH (21:51)
[2023-02-10 05:00] VITALS: BP 120/62; PULSE 52; RESP 20; TEMP 97.9; O2SAT 100
[2023-02-10] MEDS: OXYCODONE W/ ACETAMINOPHEN 5/325MG TABLET PO PRN ×2 (05:42→11:46)
[2023-02-10] MEDS: BUMETANIDE 1 MG TAB PO SCH (05:43)
[2023-02-10] MEDS: PANTOPRAZOLE 40 MG TAB PO SCH (05:43)
[2023-02-10] MEDS: SODIUM CHLOR 0.9% PF (SALINE LOCK) 10ML VIAL/SYR IV SCH ×2 (05:44→14:00)
[2023-02-10] MEDS: hydrALAZINE HCL 25 MG TAB PO SCH ×2 (05:45→14:00)
[2023-02-10 08:00] VITALS: PULSE 48; PULSE 52; RESP 18; O2SAT 98
[2023-02-10 08:50] VITALS: BP 100/50; PULSE 52; RESP 18; TEMP 98; O2SAT 98
[2023-02-10] MEDS: ASPirin-EC 81 mg tab PO SCH (09:15)
[2023-02-10] MEDS: buPROPion HCL 75 MG TAB PO SCH (09:15)
[2023-02-10] MEDS: GABAPENTIN 400 MG CAP PO SCH (09:15)
[2023-02-10] MEDS: CLOPIDOGREL BISULFATE 75 MG TAB PO SCH (09:15)
[2023-02-10] MEDS: LISINOPRIL 20 MG TAB PO SCH (09:15)
[2023-02-10] MEDS: LOSARTAN POTASSIUM 25 MG TAB PO SCH (09:16)
[2023-02-10] MEDS: ISOSORBIDE MONONITRATE ER 60 MG TAB PO SCH (09:16)
[2023-02-10] MEDS: amLODIPine BESYLATE 5 MG TAB PO SCH (09:17)
[2023-02-10] MEDS: METOPROLOL SUCCINATE XL 50 MG TAB PO SCH (09:17)
[2023-02-10] MEDS ORDERED: PERCOT PO (10:30)
[2023-02-10 12:14] VITALS: BP 100/50; PULSE 52; TEMP 36.7
[2023-02-10 12:30] VITALS: BP 108/55; PULSE 50; RESP 18; O2SAT 95
[2023-02-10 13:00] VITALS: BP 108/55; PULSE 52; RESP 19; TEMP 97.9; O2SAT 98
== END 2023-02-10 15:08 | disposition home or self-care (01) | DRG 189 ==
LOC: EDBD 05:12 → ER 05:12 → TELE 11:24 → TELE-WESTW 22:38
PROVIDERS: ADMIT Nurse Practitioner Family; ATTEND Family Medicine
DX: J96.00 Acute respiratory failure, unspecified whether with hypoxia or hypercapnia (principal); J44.1 Chronic obstructive pulmonary disease with (acute) exacerbation; Z68.43 Body mass index [BMI] 50.0-59.9, adult; I25.10 Atherosclerotic heart disease of native coronary artery without angina pectoris; I11.0 Hypertensive heart disease with heart failure; I50.9 Heart failure, unspecified; E78.5 Hyperlipidemia, unspecified; K21.9 Gastro-esophageal reflux disease without esophagitis; E66.01 Morbid (severe) obesity due to excess calories; M54.2 Cervicalgia; E11.9 Type 2 diabetes mellitus without complications; F17.210 Nicotine dependence, cigarettes, uncomplicated; G89.4 Chronic pain syndrome; F32.A Depression, unspecified; F41.9 Anxiety disorder, unspecified; M54.9 Dorsalgia, unspecified; J44.89 Other specified chronic obstructive pulmonary disease; Z74.01 Bed confinement status; Z90.49 Acquired absence of other specified parts of digestive tract; Z81.8 Family history of other mental and behavioral disorders; Z82.3 Family history of stroke; Z82.49 Family history of ischemic heart disease and other diseases of the circulatory system; Z82.5 Family history of asthma and other chronic lower respiratory diseases; Z83.3 Family history of diabetes mellitus; Z86.73 Personal history of transient ischemic attack (TIA), and cerebral infarction without residual deficits; Z95.5 Presence of coronary angioplasty implant and graft
CPT/HCPCS: 36415; 36600; 71045; 80053; 81001; 82805; 83735; 83880; 84484; 85025; 85610; 85730; 87081; 93005; 94640; 96365; 96367; 96375; 97163; G0378; J2405; J2543

== ENCOUNTER 2023-02-25 02:27 | Inpatient (IN) | payer BC, OTHER ==
[~2023-02-25] VITALS: Ht 172.7 cm; Wt 149.4 kg
[~2023-02-25 02:27] MED LIST changes: +CLOP75TA70 PO; +LOS25T PO; +PANT40T PO; +PERCOT PO
[2023-02-25 03:06] LABS: Basophils # (auto) 0 10 ^3/uL (0-0.2); Basophils % (auto) 0.5 % (0.0-2.0); Eosinophils # (auto) 0.4 10 ^3/uL (0-0.8); Eosinophils % (auto) 4.2 % (0.0-7.0); Hematocrit 38.3 % (41.0-53.0); Hemoglobin 12.3 g/dL (13.5-17.5); Lymphocytes # (auto) 2.7 10 ^3/uL (0.4-5.4); Lymphocytes % (auto) 27.8 % (10.0-50.0); Mean Corpuscular Hemoglobin 28.4 pg (28.0-32.0); Mean Corpuscular Hgb Conc. 32.1 g/dL (32.0-36.0); Mean Corpuscular Volume 88.3 fL (80.0-100.0); Monocytes # (auto) 0.9 10 ^3/uL (0-1.3); Neutrophils # (auto) 5.6 10 ^3/uL (1.6-8.6); Neutrophils % (auto) 58.5 % (37.0-80.0); Red Blood Cells 4.34 10^6/uL (4.5-5.90); Red Cell Distribution Width 14.8 % (11.8-14.3); White Blood Cell 9.6 10^3/uL (4.4-10.8)
[2023-02-25 03:19] LABS: INR 1.05 (0.9-1.15); Partial Thromboplastin Time 25.6 SEC (24.5-34.5)
[2023-02-25 03:23] LABS: Alanine Aminotransferase 13 U/L (7-40); Albumin 3.9 g/dL (3.2-4.8); Alkaline Phosphatase 74 U/L (46-116); Anion Gap 8 (5-15); Aspartate Aminotransferase 15 U/L (13-40); BUN/Creatinine Ratio 16.6 (10.0-20.0); Bilirubin, Total 0.4 mg/dL (0.2-1.0); Blood Urea Nitrogen 29 mg/dL (9-23); Calcium 9.4 mg/dL (8.7-10.4); Carbon Dioxide 26 mmol/L (20-30); Chloride 109 mmol/L (98-107); Glucose 101 mg/dL (74-106); Magnesium 1.9 mg/dL (1.6-2.6); Potassium 3.5 mmol/L (3.5-5.1); Sodium 143 mmol/L (136-145); Total Protein 7.2 g/dL (5.7-8.2)
[2023-02-25] MEDS ORDERED: ASPirin 81 mg TAB PO ONE (03:45)
[2023-02-25 04:20] LABS: Base Excess 0.4 mmol/L (-2.0-2.0)
[2023-02-25] MEDS ORDERED: GLUCAGON EMERG KIT 1mg/1ml IV ONE (04:45)
[2023-02-25] MEDS ORDERED: STERILE WATER 10 ML ONE (05:06)
[2023-02-25 05:30] VITALS: PULSE 45; RESP 14; O2SAT 98
[2023-02-25] MEDS ORDERED: NITROGLYCERIN 0.4 MG SL TAB SL PRN ×3 (06:45→22:00)
[2023-02-25] MEDS ORDERED: ONDANSETRON HCL 4 MG/2 ML VIAL IV PRN (06:45)
[2023-02-25] MEDS ORDERED: MAALOX PLUS or MAALOX 30 ML PO ONE (06:45)
[2023-02-25] MEDS ORDERED: ACETAMINOPHEN 325 MG TAB PO PRN (06:45)
[2023-02-25] MEDS ORDERED: SODIUM CHLORIDE 0.9% 1,000 ML IV SCH (06:45)
[2023-02-25] MEDS ORDERED: MORPHINE SULFATE 4 MG/ML SYR/VIAL IV PRN (06:45)
[2023-02-25 08:04] VITALS: PULSE 48; RESP 16; O2SAT 99
[2023-02-25] MEDS ORDERED: HYDROcodone-ACET 5/325MG TAB PO ONE (08:45)
[2023-02-25] MEDS ORDERED: LISINOPRIL 10 MG TAB PO SCH (10:00)
[2023-02-25] MEDS ORDERED: CLOPIDOGREL BISULFATE 75 MG TAB PO SCH (10:00)
[2023-02-25] MEDS ORDERED: METOPROLOL TARTRATE 25 MG TAB PO SCH (10:00)
[2023-02-25] MEDS: ASPirin 81 mg TAB PO SCH (10:53)
[2023-02-25] MEDS: DOCUSATE SOD 100 MG CAP PO SCH (10:55)
[2023-02-25] MEDS ORDERED: POTASSIUM EFFERVESENT TAB 25 MEQ PO ONE (11:30)
[2023-02-25] MEDS ORDERED: PANTOPRAZOLE 40 MG TAB PO ONE (16:00)
[2023-02-25] MEDS ORDERED: IPRATROPIUM BROM 0.5 MG/2.5ML INH SOL NEB PRN (16:00)
[2023-02-25] MEDS ORDERED: ALBUTEROL SULF 2.5 MG/0.5ML(0.5%) NEB SOLN NEB PRN (16:00)
[2023-02-25] MEDS: OXYCODONE W/ ACETAMINOPHEN 5/325MG TABLET PO PRN (17:34)
[2023-02-25] MEDS ORDERED: BUMETANIDE 1 MG TAB PO SCH (18:00)
[2023-02-25 20:00] VITALS: PULSE 49; RESP 15; O2SAT 98
[2023-02-25] MEDS: ATORVASTATIN 20 MG TAB PO SCH (22:41)
[2023-02-26] VITALS (11 sets, daily range): BP systolic 98–115; BP diastolic 48–67; PULSE 48–80; RESP 15–20; TEMP 97.7–98.6; O2SAT 93–99
[2023-02-26] MEDS: OXYCODONE W/ ACETAMINOPHEN 5/325MG TABLET PO PRN ×4 (00:51→23:30)
[2023-02-26 04:30] LABS: Urine Bacteria MOD /hpf (None Seen); Urine Blood Negative /uL (Negative); Urine Clarity HAZY (Clear); Urine Color Yellow (Yellow); Urine Protein, UAD Negative (Negative); Urine Specific Gravity 1.014 (1.001-1.035); Urine Urobilinogen Normal (Negative); Urine WBC 52 /hpf (0 - 3); Urine WBC Clumps PRESENT /hpf (None Seen); Urine pH 5.5 (5.0-8.0)
[2023-02-26 04:43] LABS: Amphetamine Screen, Urine Neg (NEGATIVE)
[2023-02-26 04:44] LABS: Barbiturate Scree,Urine Neg (NEGATIVE); Benzodiazephine Screen, Urine Pos (NEGATIVE); Cannabinoid Screen, Urine Neg (NEGATIVE); Cocaine Screen, Urine Neg (NEGATIVE); Opiate Scree,Urine Neg (NEGATIVE); Phencyclidine Screen, Urine Neg (NEGATIVE)
[2023-02-26] MEDS ORDERED: BUMETANIDE 1 MG TAB PO SCH (06:00)
[2023-02-26 06:11] LABS: Basophils # (auto) 0 10 ^3/uL (0-0.2); Basophils % (auto) 0.4 % (0.0-2.0); Eosinophils # (auto) 0.3 10 ^3/uL (0-0.8); Eosinophils % (auto) 3.4 % (0.0-7.0); Hematocrit 36.8 % (41.0-53.0); Hemoglobin 11.9 g/dL (13.5-17.5); Lymphocytes # (auto) 2.2 10 ^3/uL (0.4-5.4); Lymphocytes % (auto) 22.7 % (10.0-50.0); Mean Corpuscular Hemoglobin 28.2 pg (28.0-32.0); Mean Corpuscular Hgb Conc. 32.2 g/dL (32.0-36.0); Mean Corpuscular Volume 87.6 fL (80.0-100.0); Monocytes # (auto) 0.7 10 ^3/uL (0-1.3); Monocytes % (auto) 7.8 % (0.0-12.0); Neutrophils # (auto) 6.3 10 ^3/uL (1.6-8.6); Neutrophils % (auto) 65.7 % (37.0-80.0); Red Cell Distribution Width 14.6 % (11.8-14.3); White Blood Cell 9.6 10^3/uL (4.4-10.8)
[2023-02-26 06:14] LABS: Alanine Aminotransferase 12 U/L (7-40); Albumin 3.4 g/dL (3.2-4.8); Alkaline Phosphatase 58 U/L (46-116); Anion Gap 7 (5-15); Aspartate Aminotransferase 14 U/L (13-40); BUN/Creatinine Ratio 19.9 (10.0-20.0); Bilirubin, Total 0.4 mg/dL (0.2-1.0); Blood Urea Nitrogen 28 mg/dL (9-23); Calcium 8.9 mg/dL (8.7-10.4); Carbon Dioxide 26 mmol/L (20-30); Chloride 107 mmol/L (98-107); Glucose 107 mg/dL (74-106); Phosphorus 3.2 mg/dL (2.4-5.1); Potassium 3.7 mmol/L (3.5-5.1); Sodium 140 mmol/L (136-145); Total Protein 6.3 g/dL (5.7-8.2)
[2023-02-26 06:15] LABS: % Iron Saturation 17.5 % (20-55)
[2023-02-26] MEDS ORDERED: POTASSIUM EFFERVESENT TAB 25 MEQ PO ONE (07:15)
[2023-02-26] MEDS ORDERED: cefTRIAXone 1GM/50ML D5W 50 ML IV SCH (09:00)
[2023-02-26 09:04] LABS: Magnesium 1.8 mg/dL (1.6-2.6)
[2023-02-26 09:12] LABS: Hepatitis B Surface Antigen Negative (Negative)
[2023-02-26] MEDS: ASPirin 81 mg TAB PO SCH (10:07)
[2023-02-26] MEDS: CLOPIDOGREL BISULFATE 75 MG TAB PO SCH (10:07)
[2023-02-26] MEDS: DOCUSATE SOD 100 MG CAP PO SCH ×2 (10:07→22:00)
[2023-02-26] MEDS: PANTOPRAZOLE 40 MG TAB PO SCH (10:07)
[2023-02-26 10:49] LABS: Hepatitis C Antibody Reactive (Negative)
[2023-02-26] MEDS: BUMETANIDE 2.5mg/10ml (0.25 mg/ml) INJ IV SCH (17:32)
[2023-02-26 18:53] LABS: Rapid Influenza A Negative (Negative); Rapid Influenza B Negative (Negative)
[2023-02-26 18:55] LABS: COVID19 ANTIGEN SOFIA FIA POSITIVE (NEGATIVE)
[2023-02-26] MEDS ORDERED: NITROFURANTOIN 100 mg CAP PO ONE (19:15)
[2023-02-26] MEDS ORDERED: ENOXAPARIN SOD 40 MG/0.4 ML SYRINGE SC ONE (20:15)
[2023-02-26 20:49] LABS: Ferritin 84.7 ng/mL (22-322); Folate (Folic Acid) 7.1 ng/mL (>5.38)
[2023-02-26] MEDS: ATORVASTATIN 20 MG TAB PO SCH (22:00)
[2023-02-26] MEDS: NITROFURANTOIN 100 mg CAP PO SCH (22:00)
[2023-02-27] VITALS (11 sets, daily range): BP systolic 120–146; BP diastolic 58–69; PULSE 49–63; RESP 17–20; TEMP 36.9; O2SAT 92–98
[2023-02-27] MEDS: BUMETANIDE 2.5mg/10ml (0.25 mg/ml) INJ IV SCH ×2 (06:38→18:00)
[2023-02-27] MEDS: OXYCODONE W/ ACETAMINOPHEN 5/325MG TABLET PO PRN ×2 (06:43→14:07)
[2023-02-27 07:42] LABS: Chloride 104 mmol/L (98-107); Potassium 3.7 mmol/L (3.5-5.1); Sodium 140 mmol/L (136-145)
[2023-02-27 07:43] LABS: Anion Gap 8 (5-15); Carbon Dioxide 28 mmol/L (20-30)
[2023-02-27 07:44] LABS: Calcium 9.4 mg/dL (8.7-10.4)
[2023-02-27 07:48] LABS: Glucose 91 mg/dL (74-106)
[2023-02-27 07:49] LABS: BUN/Creatinine Ratio 18.6 (10.0-20.0); Blood Urea Nitrogen 24 mg/dL (9-23); Magnesium 1.8 mg/dL (1.6-2.6)
[2023-02-27 07:51] LABS: Basophils # (auto) 0 10 ^3/uL (0-0.2); Basophils % (auto) 0.7 % (0.0-2.0); Eosinophils # (auto) 0.3 10 ^3/uL (0-0.8); Eosinophils % (auto) 4.7 % (0.0-7.0); Hematocrit 39.1 % (41.0-53.0); Hemoglobin 12.8 g/dL (13.5-17.5); Lymphocytes # (auto) 1.9 10 ^3/uL (0.4-5.4); Lymphocytes % (auto) 28.2 % (10.0-50.0); Mean Corpuscular Hgb Conc. 32.7 g/dL (32.0-36.0); Mean Corpuscular Volume 88.7 fL (80.0-100.0); Monocytes # (auto) 0.6 10 ^3/uL (0-1.3); Monocytes % (auto) 9.1 % (0.0-12.0); Neutrophils # (auto) 3.9 10 ^3/uL (1.6-8.6); Neutrophils % (auto) 57.3 % (37.0-80.0); Nucleated Red Blood Cells % 0.3 %; Red Cell Distribution Width 14.7 % (11.8-14.3); White Blood Cell 6.8 10^3/uL (4.4-10.8)
[2023-02-27] MEDS ORDERED: METO25TA93 PO (08:54)
[2023-02-27] MEDS ORDERED: TRAZ-228 PO (08:56)
[2023-02-27] MEDS ORDERED: OXYB5TAB24 PO (09:06)
[2023-02-27] MEDS ORDERED: FURO40TA4 PO (09:06)
[2023-02-27] MEDS ORDERED: BECL80AE11 INH (09:06)
[2023-02-27] MEDS ORDERED: SILV-51 TOP (09:06)
[2023-02-27] MEDS ORDERED: ENOXAPARIN SOD 40 MG/0.4 ML SYRINGE SC SCH (10:00)
[2023-02-27] MEDS: DOCUSATE SOD 100 MG CAP PO SCH (10:29)
[2023-02-27] MEDS: ASPirin 81 mg TAB PO SCH (10:29)
[2023-02-27] MEDS: NITROFURANTOIN 100 mg CAP PO SCH (10:30)
[2023-02-27] MEDS: PANTOPRAZOLE 40 MG TAB PO SCH (10:30)
[2023-02-27] MEDS: CLOPIDOGREL BISULFATE 75 MG TAB PO SCH (10:30)
== END 2023-02-27 20:00 | disposition home or self-care (01) | DRG 206 ==
LOC: EDBD 02:27 → ER 02:27 → TELE 07:03 → TELE-EAST 02-26 03:10
PROVIDERS: ADMIT Internal Medicine; ATTEND Internal Medicine
DX: M94.0 Chondrocostal junction syndrome [Tietze] (principal); I13.0 Hypertensive heart and chronic kidney disease with heart failure and stage 1 through stage 4 chronic kidney disease, or unspecified chronic kidney disease; N39.0 Urinary tract infection, site not specified; I50.32 Chronic diastolic (congestive) heart failure; Z68.43 Body mass index [BMI] 50.0-59.9, adult; N17.9 Acute kidney failure, unspecified; R07.89 Other chest pain; R00.1 Bradycardia, unspecified; T44.7X5A Adverse effect of beta-adrenoreceptor antagonists, initial encounter; F32.A Depression, unspecified; D64.9 Anemia, unspecified; F41.9 Anxiety disorder, unspecified; E66.01 Morbid (severe) obesity due to excess calories; F17.210 Nicotine dependence, cigarettes, uncomplicated; E78.5 Hyperlipidemia, unspecified; K21.9 Gastro-esophageal reflux disease without esophagitis; J44.89 Other specified chronic obstructive pulmonary disease; E11.22 Type 2 diabetes mellitus with diabetic chronic kidney disease; K59.00 Constipation, unspecified; B95.8 Unspecified staphylococcus as the cause of diseases classified elsewhere; B95.2 Enterococcus as the cause of diseases classified elsewhere; I35.0 Nonrheumatic aortic (valve) stenosis; N18.32 Chronic kidney disease, stage 3b; I25.10 Atherosclerotic heart disease of native coronary artery without angina pectoris; G89.4 Chronic pain syndrome; Z98.61 Coronary angioplasty status; I25.2 Old myocardial infarction; Z79.899 Other long term (current) drug therapy; Z86.73 Personal history of transient ischemic attack (TIA), and cerebral infarction without residual deficits; Z82.49 Family history of ischemic heart disease and other diseases of the circulatory system; Z81.8 Family history of other mental and behavioral disorders; Z82.3 Family history of stroke; Z82.5 Family history of asthma and other chronic lower respiratory diseases; Z83.3 Family history of diabetes mellitus; Z90.49 Acquired absence of other specified parts of digestive tract; Z20.822 Contact with and (suspected) exposure to COVID-19; Y92.89 Other specified places as the place of occurrence of the external cause
CPT/HCPCS: 36415; 36600; 71045; 76775; 80048; 80053; 80061; 80307; 81001; 82607; 82728; 82746; 82805; 83010; 83540; 83550; 83615; 83690; 83735; 83880; 84100; 84443; 84484; 85025; 85045; 85379; 85610; 85730; 86803; 87086; 87340; 87426; 87804; 93005; 93306; 94640; 97163; G0378

== ENCOUNTER 2023-03-16 09:23 | Emergency (ER) | payer BC, OTHER ==
[~2023-03-16] VITALS: Ht 182.9 cm; Wt 136.0 kg
[~2023-03-16 09:23] MED LIST changes: +BECL80AE11 INH; -BENA40TA83 PO; +FURO40TA4 PO; -METO25TA36 PO; +METO25TA93 PO; +OXYB5TAB24 PO; +SILV-51 TOP
[2023-03-16 09:37] VITALS: PULSE 62; RESP 12; O2SAT 96
[2023-03-16 10:00] VITALS: TEMP 98
[2023-03-16 10:19] LABS: Basophils # (auto) 0 10 ^3/uL (0-0.2); Basophils % (auto) 0.5 % (0.0-2.0); Eosinophils # (auto) 0.3 10 ^3/uL (0-0.8); Eosinophils % (auto) 3.1 % (0.0-7.0); Hematocrit 40.6 % (41.0-53.0); Lymphocytes # (auto) 2.2 10 ^3/uL (0.4-5.4); Lymphocytes % (auto) 25.1 % (10.0-50.0); Mean Corpuscular Hemoglobin 28.5 pg (28.0-32.0); Mean Corpuscular Volume 89.2 fL (80.0-100.0); Monocytes # (auto) 0.6 10 ^3/uL (0-1.3); Monocytes % (auto) 6.6 % (0.0-12.0); Neutrophils # (auto) 5.7 10 ^3/uL (1.6-8.6); Neutrophils % (auto) 64.7 % (37.0-80.0); Nucleated Red Blood Cells % 0.1 %; Red Blood Cells 4.55 10^6/uL (4.5-5.90); White Blood Cell 8.9 10^3/uL (4.4-10.8)
[2023-03-16 10:40] LABS: Alanine Aminotransferase 13 U/L (7-40); Albumin 3.8 g/dL (3.2-4.8); Anion Gap 5 (5-15); Aspartate Aminotransferase 16 U/L (13-40); BUN/Creatinine Ratio 21.8 (10.0-20.0); Bilirubin, Total 0.5 mg/dL (0.2-1.0); Blood Urea Nitrogen 39 mg/dL (9-23); Calcium 9.4 mg/dL (8.7-10.4); Carbon Dioxide 29 mmol/L (20-30); Chloride 109 mmol/L (98-107); Glucose 91 mg/dL (74-106); Magnesium 2.1 mg/dL (1.6-2.6); Potassium 3.6 mmol/L (3.5-5.1); Sodium 143 mmol/L (136-145); Total Protein 6.9 g/dL (5.7-8.2)
[2023-03-16 11:18] LABS: Alkaline Phosphatase 62 U/L (46-116)
[2023-03-16 12:00] VITALS: BP 113/42; PULSE 55; RESP 14; O2SAT 98
[2023-03-16 13:03] LABS: Base Excess 1.6 mmol/L (-2.0-2.0)
== END 2023-03-16 20:12 | disposition home or self-care (01) ==
LOC: EDBD 09:23 → ER 09:23
DX: R07.89 Other chest pain (principal); R06.00 Dyspnea, unspecified; E11.22 Type 2 diabetes mellitus with diabetic chronic kidney disease; I13.0 Hypertensive heart and chronic kidney disease with heart failure and stage 1 through stage 4 chronic kidney disease, or unspecified chronic kidney disease; N18.9 Chronic kidney disease, unspecified; I50.9 Heart failure, unspecified; J44.9 Chronic obstructive pulmonary disease, unspecified; F17.210 Nicotine dependence, cigarettes, uncomplicated; K21.9 Gastro-esophageal reflux disease without esophagitis; E78.5 Hyperlipidemia, unspecified; Z90.49 Acquired absence of other specified parts of digestive tract; Z86.73 Personal history of transient ischemic attack (TIA), and cerebral infarction without residual deficits
CPT/HCPCS: 36415; 36600; 71045; 80053; 82805; 83605; 83735; 83880; 84484; 85025; 87040; 87077; 87186; 93005

== ENCOUNTER 2023-06-27 00:56 | Inpatient (IN) | payer BC, OTHER ==
[~2023-06-27] VITALS: Ht 172.7 cm; Wt 148.9 kg
[2023-06-27] VITALS (37 sets, daily range): BP systolic 90–155; BP diastolic 35–114; PULSE 47–70; RESP 8–18; TEMP 97.9–98.8; O2SAT 88–100
[~2023-06-27 00:56] MED LIST changes: +DAPA1TAB4 PO; -FURO40TA4 PO; +GABA-1250 PO; -GABA800T97 PO; -HYDR-4296 PO; +HYDR50TA47 PO; +IPRAAER6 INH; +LEVE500T40 PO; +LEVO500T91 PO; +METH-1181 PO; +OXYC325T14 PO; -PERCOT PO
[2023-06-27 01:28] LABS: Basophils # (auto) 0.1 10 ^3/uL (0-0.2); Basophils % (auto) 0.7 % (0.0-2.0); Eosinophils # (auto) 0.5 10 ^3/uL (0-0.8); Eosinophils % (auto) 6.1 % (0.0-7.0); Hematocrit 36.9 % (41.0-53.0); Hemoglobin 11.9 g/dL (13.5-17.5); Lymphocytes # (auto) 2.9 10 ^3/uL (0.4-5.4); Lymphocytes % (auto) 33.5 % (10.0-50.0); Mean Corpuscular Hemoglobin 28.6 pg (28.0-32.0); Mean Corpuscular Hgb Conc. 32.4 g/dL (32.0-36.0); Mean Corpuscular Volume 88.4 fL (80.0-100.0); Monocytes # (auto) 0.6 10 ^3/uL (0-1.3); Neutrophils # (auto) 4.5 10 ^3/uL (1.6-8.6); Neutrophils % (auto) 52.7 % (37.0-80.0); Red Blood Cells 4.17 10^6/uL (4.5-5.90); Red Cell Distribution Width 15.3 % (11.8-14.3); White Blood Cell 8.6 10^3/uL (4.4-10.8)
[2023-06-27] MEDS: MORPHINE SULFATE 4 MG/ML SYR/VIAL IV ONE ×2 (02:04→06:19)
[2023-06-27] MEDS: ONDANSETRON HCL 4 MG/2 ML VIAL IV ONE ×2 (02:10→06:20)
[2023-06-27] MEDS: GLUCAGON EMERG KIT 1mg/1ml IV ONE (03:23)
[2023-06-27] MEDS: DOPamine 1600MCG/ML D5W 250 ML IV ONE ×2 (04:30→09:53)
[2023-06-27] MEDS: diphenhdrAMINE HCL 25 MG CAP PO ONE ×2 (06:22)
[2023-06-27] MEDS ORDERED: ACETAMINOPHEN 325 MG TAB PO PRN (07:00)
[2023-06-27] MEDS ORDERED: MORPHINE SULFATE INJ 2 MG/ml SYRG IV PRN (07:00)
[2023-06-27] MEDS ORDERED: NITROGLYCERIN 0.4 MG SL TAB SL PRN (07:00)
[2023-06-27 07:22] LABS: INR 1.06 (0.9-1.15); Prothrombin Time 11.2 sec (9.3-11.8)
[2023-06-27 07:24] LABS: Alanine Aminotransferase 11 U/L (7-40); Albumin 3.6 g/dL (3.2-4.8); Alkaline Phosphatase 57 U/L (46-116); Anion Gap 9 (5-15); Aspartate Aminotransferase 19 U/L (13-40); BUN/Creatinine Ratio 14.9 (10.0-20.0); Bilirubin, Total 0.3 mg/dL (0.2-1.0); Blood Urea Nitrogen 34 mg/dL (9-23); Calcium 9.4 mg/dL (8.5-10.1); Carbon Dioxide 27 mmol/L (20-30); Chloride 106 mmol/L (98-107); Glucose 114 mg/dL (74-106); Potassium 3.2 mmol/L (3.5-5.1); Sodium 142 mmol/L (136-145); Total Protein 6.6 g/dL (5.7-8.2)
[2023-06-27] MEDS: MORPHINE SULFATE INJ 2 MG/ml SYRG IV PRN (08:45)
[2023-06-27] MEDS ORDERED: DOPamine 1600MCG/ML D5W 250 ML IV SCH (09:30)
[2023-06-27] MEDS: DOPamine 1600MCG/ML D5W 250 ML IV SCH (09:31)
[2023-06-27] MEDS: ENOXAPARIN SOD 40 MG/0.4 ML SYRINGE SC SCH (10:00)
[2023-06-27] MEDS: ASPirin 81 mg TAB PO ONE (12:19)
[2023-06-27] MEDS: CLOPIDOGREL BISULFATE 75 MG TAB PO ONE (12:20)
[2023-06-27] MEDS: HYDROcodone-ACET 5/325MG TAB PO PRN (12:26)
[2023-06-27] MEDS: HEPARIN DRIP/D5W 100UNITS/ML 250 ML IV SCH ×2 (12:40→19:49)
[2023-06-27 19:13] LABS: INR 1.08 (0.9-1.15); Partial Thromboplastin Time 32.1 SEC (24.5-34.5); Prothrombin Time 11.4 sec (9.3-11.8)
[2023-06-27 19:47] LABS: Phosphorus 3.6 mg/dL (2.4-5.1)
[2023-06-27] MEDS: HEPARIN SODIUM (PORCINE) 5000 UNITS/ML 1ML VIAL IV ONE (20:13)
[2023-06-27] MEDS: ATORVASTATIN 20 MG TAB PO SCH (22:03)
[2023-06-27] MEDS: levETIRAcetam 500 MG TAB PO SCH (22:03)
[2023-06-27] MEDS: GABAPENTIN 300 MG CAP PO SCH (22:03)
[2023-06-27] MEDS: POTASSIUM CHL 20 Meq TABLET PO ONE (22:03)
[2023-06-28] VITALS (98 sets, daily range): BP systolic 54–153; BP diastolic 22–128; PULSE 47–119; RESP 7–26; TEMP 97.3–98.3; O2SAT 94–100
[2023-06-28] MEDS: DOPamine 1600MCG/ML D5W 250 ML IV SCH ×2 (01:07→11:41)
[2023-06-28 01:55] LABS: Basophils # (auto) 0.1 10 ^3/uL (0-0.2); Basophils % (auto) 0.6 % (0.0-2.0); Eosinophils # (auto) 0.7 10 ^3/uL (0-0.8); Eosinophils % (auto) 5.3 % (0.0-7.0); Hematocrit 37.8 % (41.0-53.0); Hemoglobin 12.1 g/dL (13.5-17.5); Lymphocytes # (auto) 2.7 10 ^3/uL (0.4-5.4); Lymphocytes % (auto) 21.4 % (10.0-50.0); Mean Corpuscular Hemoglobin 28.5 pg (28.0-32.0); Mean Corpuscular Volume 88.8 fL (80.0-100.0); Monocytes # (auto) 0.8 10 ^3/uL (0-1.3); Monocytes % (auto) 6.7 % (0.0-12.0); Neutrophils # (auto) 8.2 10 ^3/uL (1.6-8.6); Red Blood Cells 4.26 10^6/uL (4.5-5.90); Red Cell Distribution Width 14.8 % (11.8-14.3); White Blood Cell 12.4 10^3/uL (4.4-10.8)
[2023-06-28 02:13] LABS: Albumin 3.8 g/dL (3.2-4.8); Alkaline Phosphatase 53 U/L (46-116); Anion Gap 8 (5-15); Aspartate Aminotransferase 15 U/L (13-40); BUN/Creatinine Ratio 14.1 (10.0-20.0); Blood Urea Nitrogen 36 mg/dL (9-23); Calcium 9.4 mg/dL (8.7-10.4); Carbon Dioxide 28 mmol/L (20-30); Chloride 100 mmol/L (98-107); Glucose 169 mg/dL (74-106); Potassium 3.2 mmol/L (3.5-5.1); Sodium 136 mmol/L (136-145)
[2023-06-28 02:14] LABS: Alanine Aminotransferase < 9 U/L (7-40); Bilirubin, Total 0.4 mg/dL (0.2-1.0); Total Protein 6.8 g/dL (5.7-8.2)
[2023-06-28 02:26] LABS: INR 1.13 (0.9-1.15); Prothrombin Time 11.9 sec (9.3-11.8)
[2023-06-28 03:07] LABS: Partial Thromboplastin Time > 139.0 SEC (24.5-34.5)
[2023-06-28] MEDS: HEPARIN DRIP/D5W 100UNITS/ML 250 ML IV SCH ×3 (04:27→20:15)
[2023-06-28 06:40] LABS: Urine Bacteria FEW /hpf (None Seen); Urine Blood Negative /uL (Negative); Urine Budding Yeast MODERATE /hpf (None Seen); Urine Clarity Turbid (Clear); Urine Color Yellow (Yellow); Urine Hyaline Cast MOD /lpf (0 - 2); Urine Protein, UAD TRACE (Negative); Urine Specific Gravity 1.016 (1.001-1.035); Urine Urobilinogen Normal (Negative); Urine WBC 68 /hpf (0 - 3); Urine WBC Clumps PRESENT /hpf (None Seen)
[2023-06-28 06:46] LABS: Protein, Urine 31.9 mg/dL (0.0-11.9)
[2023-06-28 06:49] LABS: Creatinine, Urine 145.9 mg/dL (30.0-125.0); Urine Protein/Creatinine Ratio 0.22
[2023-06-28] MEDS: SODIUM CHLORIDE 0.9% 1,000 ML IV SCH (08:06)
[2023-06-28] MEDS: POTASSIUM CHL 20MEQ/100ML 100 ML IV ONE ×2 (08:17→11:00)
[2023-06-28] MEDS: POTASSIUM EFFERVESENT TAB 25 MEQ PO ONE (10:25)
[2023-06-28] MEDS: NOREPINEPHRINE 8 MG/250ML KIT 250 ML IV ONE (11:13)
[2023-06-28] MEDS: ASPirin 81 mg TAB PO SCH (11:36)
[2023-06-28] MEDS: CLOPIDOGREL BISULFATE 75 MG TAB PO SCH (11:36)
[2023-06-28] MEDS: ALLOPURINOL 100 MG TAB PO SCH (11:36)
[2023-06-28] MEDS: ERGOCALCIFEROL 50,000 UNIT(1.25MG) CAP PO SCH (11:36)
[2023-06-28 11:45] LABS: INR 1.11 (0.9-1.15); Prothrombin Time 11.7 sec (9.3-11.8)
[2023-06-28] MEDS: NOREPINEPHRINE 8 MG/250ML KIT 250 ML IV SCH (12:24)
[2023-06-28] MEDS: DOCUSATE SOD 100 MG CAP PO PRN (14:25)
[2023-06-28] MEDS ORDERED: GABA800T97 PO (15:48)
[2023-06-28] MEDS ORDERED: LIDO4PAD52 TOP (15:52)
[2023-06-28 19:35] LABS: INR 1.07 (0.9-1.15); Partial Thromboplastin Time 48.3 SEC (24.5-34.5); Prothrombin Time 11.3 sec (9.3-11.8)
[2023-06-29] VITALS (95 sets, daily range): BP systolic 65–277; BP diastolic 14–247; PULSE 49–63; RESP 8–25; TEMP 97.1–98; O2SAT 93–100
[2023-06-29 02:08] LABS: Basophils # (auto) 0 10 ^3/uL (0-0.2); Basophils % (auto) 0.4 % (0.0-2.0); Eosinophils # (auto) 0.8 10 ^3/uL (0-0.8); Hematocrit 33.6 % (41.0-53.0); Hemoglobin 10.6 g/dL (13.5-17.5); Lymphocytes # (auto) 1.9 10 ^3/uL (0.4-5.4); Lymphocytes % (auto) 17.2 % (10.0-50.0); Mean Corpuscular Hemoglobin 28.2 pg (28.0-32.0); Mean Corpuscular Hgb Conc. 31.6 g/dL (32.0-36.0); Mean Corpuscular Volume 89.3 fL (80.0-100.0); Monocytes # (auto) 0.8 10 ^3/uL (0-1.3); Monocytes % (auto) 7.1 % (0.0-12.0); Neutrophils # (auto) 7.7 10 ^3/uL (1.6-8.6); Neutrophils % (auto) 68.3 % (37.0-80.0); Red Blood Cells 3.76 10^6/uL (4.5-5.90); Red Cell Distribution Width 14.8 % (11.8-14.3); White Blood Cell 11.3 10^3/uL (4.4-10.8)
[2023-06-29 02:23] LABS: Albumin 3.3 g/dL (3.2-4.8); Alkaline Phosphatase 50 U/L (46-116); Anion Gap 5 (5-15); Aspartate Aminotransferase 13 U/L (13-40); BUN/Creatinine Ratio 16.1 (10.0-20.0); Blood Urea Nitrogen 34 mg/dL (9-23); Calcium 8.7 mg/dL (8.5-10.1); Carbon Dioxide 28 mmol/L (20-30); Chloride 101 mmol/L (98-107); Glucose 132 mg/dL (74-106); Magnesium 1.7 mg/dL (1.6-2.6); Potassium 3.7 mmol/L (3.5-5.1); Sodium 134 mmol/L (136-145)
[2023-06-29 02:24] LABS: Bilirubin, Total 0.3 mg/dL (0.2-1.0)
[2023-06-29 02:26] LABS: INR 1.05 (0.9-1.15); Partial Thromboplastin Time 48.7 SEC (24.5-34.5); Prothrombin Time 11.1 sec (9.3-11.8)
[2023-06-29 03:24] LABS: Alanine Aminotransferase < 9 U/L (7-40)
[2023-06-29 10:38] LABS: INR 1.07 (0.9-1.15); Prothrombin Time 11.3 sec (9.3-11.8)
[2023-06-29 10:51] LABS: Partial Thromboplastin Time 71.2 SEC (24.5-34.5)
[2023-06-29] MEDS: ONDANSETRON HCL 4 MG/2 ML VIAL IV PRN (13:46)
[2023-06-29] MEDS: MAGNESIUM OXIDE 400 MG TAB PO ONE (16:26)
[2023-06-29 17:18] LABS: INR 1.06 (0.9-1.15); Prothrombin Time 11.2 sec (9.3-11.8)
[2023-06-29] MEDS: NYSTATIN TOPICAL POWDER 15GM TOP SCH (22:00)
[2023-06-29 22:49] LABS: INR 1.06 (0.9-1.15); Prothrombin Time 11.2 sec (9.3-11.8)
[2023-06-29 22:55] LABS: Partial Thromboplastin Time 85.1 SEC (24.5-34.5)
[2023-06-30] VITALS (96 sets, daily range): BP systolic 54–163; BP diastolic 18–104; PULSE 46–62; RESP 8–18; TEMP 97.3–98.4; O2SAT 78–100
[2023-06-30 04:12] LABS: Basophils # (auto) 0.1 10 ^3/uL (0-0.2); Basophils % (auto) 0.5 % (0.0-2.0); Eosinophils # (auto) 0.7 10 ^3/uL (0-0.8); Eosinophils % (auto) 6.8 % (0.0-7.0); Hematocrit 32.9 % (41.0-53.0); Hemoglobin 10.5 g/dL (13.5-17.5); Lymphocytes # (auto) 2.3 10 ^3/uL (0.4-5.4); Lymphocytes % (auto) 23.7 % (10.0-50.0); Mean Corpuscular Hemoglobin 28.4 pg (28.0-32.0); Mean Corpuscular Volume 88.9 fL (80.0-100.0); Monocytes # (auto) 0.9 10 ^3/uL (0-1.3); Monocytes % (auto) 9.7 % (0.0-12.0); Neutrophils # (auto) 5.7 10 ^3/uL (1.6-8.6); Neutrophils % (auto) 59.3 % (37.0-80.0); Red Blood Cells 3.69 10^6/uL (4.5-5.90); Red Cell Distribution Width 14.7 % (11.8-14.3); White Blood Cell 9.7 10^3/uL (4.4-10.8)
[2023-06-30 04:18] LABS: Chloride 103 mmol/L (98-107); Potassium 3.9 mmol/L (3.5-5.1); Sodium 135 mmol/L (136-145)
[2023-06-30 04:19] LABS: Anion Gap 5 (5-15); Calcium 8.4 mg/dL (8.7-10.4); Carbon Dioxide 27 mmol/L (20-30)
[2023-06-30 04:24] LABS: BUN/Creatinine Ratio 17.3 (10.0-20.0); Blood Urea Nitrogen 27 mg/dL (9-23); Glucose 117 mg/dL (74-106)
[2023-06-30 06:08] LABS: INR 1.06 (0.9-1.15); Partial Thromboplastin Time 67.2 SEC (24.5-34.5); Prothrombin Time 11.2 sec (9.3-11.8)
[2023-06-30] MEDS: MAGNESIUM OXIDE 400 MG TAB PO SCH (08:35)
[2023-06-30 11:44] LABS: INR 1.07 (0.9-1.15); Partial Thromboplastin Time 59.3 SEC (24.5-34.5); Prothrombin Time 11.3 sec (9.3-11.8)
[2023-07-01] VITALS (97 sets, daily range): BP systolic 83–192; BP diastolic 26–161; PULSE 46–75; RESP 8–23; TEMP 97.5–98; O2SAT 86–100
[2023-07-01 04:08] LABS: Basophils # (auto) 0 10 ^3/uL (0-0.2); Basophils % (auto) 0.5 % (0.0-2.0); Eosinophils # (auto) 0.4 10 ^3/uL (0-0.8); Eosinophils % (auto) 4.9 % (0.0-7.0); Hematocrit 30.2 % (41.0-53.0); Hemoglobin 9.8 g/dL (13.5-17.5); Lymphocytes % (auto) 26.6 % (10.0-50.0); Mean Corpuscular Hemoglobin 28.9 pg (28.0-32.0); Mean Corpuscular Hgb Conc. 32.4 g/dL (32.0-36.0); Monocytes # (auto) 0.8 10 ^3/uL (0-1.3); Neutrophils # (auto) 4.5 10 ^3/uL (1.6-8.6); Nucleated Red Blood Cells % 0.2 %; Red Blood Cells 3.39 10^6/uL (4.5-5.90); Red Cell Distribution Width 15.2 % (11.8-14.3); White Blood Cell 7.7 10^3/uL (4.4-10.8)
[2023-07-01 04:19] LABS: Albumin 2.9 g/dL (3.2-4.8); Alkaline Phosphatase 54 U/L (46-116); Anion Gap 4 (5-15); Aspartate Aminotransferase 11 U/L (13-40); BUN/Creatinine Ratio 17.6 (10.0-20.0); Blood Urea Nitrogen 22 mg/dL (9-23); Calcium 8.7 mg/dL (8.7-10.4); Carbon Dioxide 27 mmol/L (20-30); Chloride 108 mmol/L (98-107); Glucose 102 mg/dL (74-106); Potassium 4.4 mmol/L (3.5-5.1); Sodium 139 mmol/L (136-145)
[2023-07-01 04:20] LABS: Bilirubin, Total 0.4 mg/dL (0.2-1.0); Total Protein 5.5 g/dL (5.7-8.2)
[2023-07-01 04:24] LABS: Alanine Aminotransferase < 9 U/L (7-40)
[2023-07-01 06:52] LABS: INR 1.07 (0.9-1.15); Partial Thromboplastin Time 66.6 SEC (24.5-34.5); Prothrombin Time 11.3 sec (9.3-11.8)
[2023-07-01] MEDS: IOHEXOL 350 MG/ML 100ML IJ ONE (13:05)
[2023-07-02] VITALS (96 sets, daily range): BP systolic 80–180; BP diastolic 33–128; PULSE 54–103; RESP 10–28; TEMP 97.9–98.7; O2SAT 89–100
[2023-07-02 03:32] LABS: Basophils # (auto) 0 10 ^3/uL (0-0.2); Basophils % (auto) 0.3 % (0.0-2.0); Eosinophils # (auto) 0.3 10 ^3/uL (0-0.8); Eosinophils % (auto) 3.6 % (0.0-7.0); Hematocrit 31.1 % (41.0-53.0); Hemoglobin 9.9 g/dL (13.5-17.5); Lymphocytes # (auto) 1.2 10 ^3/uL (0.4-5.4); Mean Corpuscular Hemoglobin 28.8 pg (28.0-32.0); Mean Corpuscular Hgb Conc. 31.9 g/dL (32.0-36.0); Mean Corpuscular Volume 90.3 fL (80.0-100.0); Monocytes # (auto) 0.6 10 ^3/uL (0-1.3); Monocytes % (auto) 7.4 % (0.0-12.0); Neutrophils # (auto) 6.4 10 ^3/uL (1.6-8.6); Neutrophils % (auto) 74.7 % (37.0-80.0); Red Blood Cells 3.45 10^6/uL (4.5-5.90); Red Cell Distribution Width 15.2 % (11.8-14.3); White Blood Cell 8.6 10^3/uL (4.4-10.8)
[2023-07-02 03:43] LABS: Chloride 111 mmol/L (98-107); Potassium 4.7 mmol/L (3.5-5.1); Sodium 142 mmol/L (136-145)
[2023-07-02 03:44] LABS: Anion Gap 2 (5-15); Carbon Dioxide 29 mmol/L (20-30)
[2023-07-02 03:45] LABS: Calcium 8.8 mg/dL (8.7-10.4)
[2023-07-02 03:46] LABS: INR 1.05 (0.9-1.15); Prothrombin Time 11.1 sec (9.3-11.8)
[2023-07-02 03:50] LABS: BUN/Creatinine Ratio 17.8 (10.0-20.0); Blood Urea Nitrogen 18 mg/dL (9-23); Glucose 112 mg/dL (74-106)
[2023-07-02] MEDS: ENOXAPARIN SOD 40 MG/0.4 ML SYRINGE SC SCH (09:05)
[2023-07-02 20:11] LABS: Base Excess 3.7 mmol/L (-2.0-2.0)
[2023-07-03] VITALS (36 sets, daily range): BP systolic 105–154; BP diastolic 30–97; PULSE 48–98; RESP 11–28; TEMP 97.6–98.9; O2SAT 89–100
[2023-07-03 14:01] LABS: Chloride 113 mmol/L (98-107); Potassium 4.5 mmol/L (3.5-5.1); Sodium 142 mmol/L (136-145)
[2023-07-03 14:02] LABS: Anion Gap 0 (5-15); Carbon Dioxide 29 mmol/L (20-30)
[2023-07-03 14:03] LABS: Calcium 8.5 mg/dL (8.7-10.4)
[2023-07-03 14:07] LABS: BUN/Creatinine Ratio 11.6 (10.0-20.0); Blood Urea Nitrogen 11 mg/dL (9-23); Glucose 134 mg/dL (74-106)
[2023-07-04] VITALS (8 sets, daily range): BP systolic 127–159; BP diastolic 47–78; PULSE 64–72; RESP 18–22; TEMP 98.1–98.9; O2SAT 94–100
[2023-07-04 06:11] LABS: Chloride 112 mmol/L (98-107); Potassium 4.8 mmol/L (3.5-5.1); Sodium 141 mmol/L (136-145)
[2023-07-04 06:12] LABS: Anion Gap 2 (5-15); Calcium 9.1 mg/dL (8.5-10.1); Carbon Dioxide 27 mmol/L (20-30)
[2023-07-04 06:17] LABS: BUN/Creatinine Ratio 10.2 (10.0-20.0); Blood Urea Nitrogen 11 mg/dL (9-23); Glucose 93 mg/dL (74-106)
[2023-07-04] MEDS: FUROSEMIDE 40 MG/4 ML VIAL IV ONE (12:34)
[2023-07-04] MEDS ORDERED: MORPHINE SULFATE 4 MG/ML SYR/VIAL IV PRN (20:00)
[2023-07-05] VITALS (8 sets, daily range): BP systolic 131–158; BP diastolic 58–92; PULSE 60–69; RESP 17–22; TEMP 36.9; O2SAT 93–97
[2023-07-05] MEDS: MORPHINE SULFATE 4 MG/ML SYR/VIAL IV PRN (00:42)
== END 2023-07-05 17:24 | disposition home health service (06) | DRG 314 ==
LOC: ER 00:56 → EDUNIT# 00:56 → EDBD 00:56 → OVERFLOW 06:57 → ICU WEST 16:06 → TELE-WESTW 07-03 23:59
PROVIDERS: ADMIT Internal Medicine; ATTEND Nurse Practitioner
PROC: 02HV33Z Insertion of Infusion Device into Superior Vena Cava, Percutaneous Approach (ICD-10-PCS; principal; 2023-06-27)
PROC: B548ZZA Ultrasonography of Superior Vena Cava, Guidance (ICD-10-PCS; 2023-06-27)
DX: I27.0 Primary pulmonary hypertension (principal); N17.0 Acute kidney failure with tubular necrosis; Z68.42 Body mass index [BMI] 45.0-49.9, adult; J96.10 Chronic respiratory failure, unspecified whether with hypoxia or hypercapnia; N18.4 Chronic kidney disease, stage 4 (severe); E11.22 Type 2 diabetes mellitus with diabetic chronic kidney disease; E11.65 Type 2 diabetes mellitus with hyperglycemia; E66.01 Morbid (severe) obesity due to excess calories; E87.6 Hypokalemia; D63.1 Anemia in chronic kidney disease; K21.9 Gastro-esophageal reflux disease without esophagitis; I25.10 Atherosclerotic heart disease of native coronary artery without angina pectoris; E78.5 Hyperlipidemia, unspecified; E55.9 Vitamin D deficiency, unspecified; K76.0 Fatty (change of) liver, not elsewhere classified; F17.210 Nicotine dependence, cigarettes, uncomplicated; E89.0 Postprocedural hypothyroidism; F41.9 Anxiety disorder, unspecified; F32.A Depression, unspecified; I35.0 Nonrheumatic aortic (valve) stenosis; G40.909 Epilepsy, unspecified, not intractable, without status epilepticus; Z74.01 Bed confinement status; Z82.5 Family history of asthma and other chronic lower respiratory diseases; I25.2 Old myocardial infarction; Z90.49 Acquired absence of other specified parts of digestive tract; Z95.5 Presence of coronary angioplasty implant and graft; Z86.73 Personal history of transient ischemic attack (TIA), and cerebral infarction without residual deficits; Z79.82 Long term (current) use of aspirin; Z79.51 Long term (current) use of inhaled steroids; Z79.02 Long term (current) use of antithrombotics/antiplatelets; Z79.899 Other long term (current) drug therapy; Z82.3 Family history of stroke; Z82.49 Family history of ischemic heart disease and other diseases of the circulatory system; Z81.8 Family history of other mental and behavioral disorders; Z83.3 Family history of diabetes mellitus; Z81.1 Family history of alcohol abuse and dependence; Z80.59 Family history of malignant neoplasm of other urinary tract organ
CPT/HCPCS: 36415; 36600; 71045; 71275; 76775; 80048; 80053; 81001; 82306; 82570; 82805; 82962; 83036; 83735; 83880; 83970; 84100; 84132; 84156; 84300; 84484; 84550; 85025; 85379; 85610; 85730; 87086; 87088; 93005; 93306; 93970; 96365; 96367; 96375; 96376; 97163; 99291; G0378; J2405; J3480

== ENCOUNTER 2023-11-05 21:29 | Emergency (ER) | payer MEDICARE, OTHER ==
[~2023-11-05] VITALS: Ht 182.9 cm; Wt 136.3 kg
[~2023-11-05 21:29] MED LIST changes: -GABA-1250 PO; +GABA800T97 PO; -LEVO500T91 PO; +LIDO4PAD52 TOP
[2023-11-05 22:09] LABS: Basophils # (auto) 0.1 10 ^3/uL (0-0.2); Basophils % (auto) 0.8 % (0.0-2.0); Eosinophils # (auto) 0.4 10 ^3/uL (0-0.8); Eosinophils % (auto) 5.5 % (0.0-7.0); Hematocrit 32.4 % (41.0-53.0); Hemoglobin 10.7 g/dL (13.5-17.5); Lymphocytes # (auto) 2.2 10 ^3/uL (0.4-5.4); Lymphocytes % (auto) 31.1 % (10.0-50.0); Mean Corpuscular Hemoglobin 29.9 pg (28.0-32.0); Mean Corpuscular Hgb Conc. 32.9 g/dL (32.0-36.0); Mean Corpuscular Volume 90.9 fL (80.0-100.0); Monocytes # (auto) 0.5 10 ^3/uL (0-1.3); Monocytes % (auto) 6.9 % (0.0-12.0); Neutrophils # (auto) 3.9 10 ^3/uL (1.6-8.6); Neutrophils % (auto) 55.7 % (37.0-80.0); Nucleated Red Blood Cells % 0.1 %; Platelet Count (auto) 145 10^3/uL (140-450); Red Blood Cells 3.57 10^6/uL (4.5-5.90); Red Cell Distribution Width 15.4 % (11.8-14.3)
[2023-11-05 22:19] VITALS: TEMP 98.9
[2023-11-05 22:27] LABS: Alanine Aminotransferase 23 U/L (7-40); Albumin 3.3 g/dL (3.2-4.8); Alkaline Phosphatase 59 U/L (46-116); Anion Gap 5 (5-15); Aspartate Aminotransferase 19 U/L (13-40); BUN/Creatinine Ratio 12.9 (10.0-20.0); Bilirubin, Total 0.3 mg/dL (0.2-1.0); Blood Urea Nitrogen 16 mg/dL (9-23); Calcium 9.3 mg/dL (8.7-10.4); Carbon Dioxide 22 mmol/L (20-30); Chloride 116 mmol/L (98-107); Glucose 88 mg/dL (74-106); Magnesium 2.1 mg/dL (1.6-2.6); Potassium 4.4 mmol/L (3.5-5.1); Sodium 143 mmol/L (136-145); Total Protein 6.1 g/dL (5.7-8.2)
[2023-11-05 22:32] LABS: INR 1.03 (0.9-1.15); Partial Thromboplastin Time 26.2 SEC (24.5-34.5); Prothrombin Time 10.9 sec (9.3-11.8)
[2023-11-06 01:03] VITALS: PULSE 51; RESP 14; O2SAT 96
[2023-11-06] MEDS: HYDROcodone-ACET 10/325MG TAB PO ONE ×2 (02:02→12:10)
[2023-11-06] MEDS: FUROSEMIDE 40 MG/4 ML VIAL IV ONE (07:15)
[2023-11-06 07:30] VITALS: PULSE 51; RESP 14; O2SAT 96
[2023-11-06 11:24] VITALS: BP 129/63; PULSE 60; RESP 16; O2SAT 96
== END 2023-11-06 14:40 | disposition home or self-care (01) ==
LOC: ER 21:29 → EDBD 21:29 → ER 11-06 14:40
DX: R07.89 Other chest pain (principal); I13.0 Hypertensive heart and chronic kidney disease with heart failure and stage 1 through stage 4 chronic kidney disease, or unspecified chronic kidney disease; E11.22 Type 2 diabetes mellitus with diabetic chronic kidney disease; N18.9 Chronic kidney disease, unspecified; E78.00 Pure hypercholesterolemia, unspecified; F41.9 Anxiety disorder, unspecified; F32.A Depression, unspecified; J45.909 Unspecified asthma, uncomplicated; J44.9 Chronic obstructive pulmonary disease, unspecified; Z79.82 Long term (current) use of aspirin; Z79.84 Long term (current) use of oral hypoglycemic drugs; Z90.49 Acquired absence of other specified parts of digestive tract; Z98.890 Other specified postprocedural states; Z79.899 Other long term (current) drug therapy
CPT/HCPCS: 36415; 71045; 80053; 83735; 83880; 84484; 85025; 85610; 85730; 93005

== ENCOUNTER 2024-02-24 17:34 | Inpatient (IN) | payer BC, OTHER ==
[~2024-02-24] VITALS: Ht 170.2 cm; Wt 136.0 kg
[~2024-02-24 17:34] MED LIST changes: +AMLO1TAB23 PO; +ASPI-665 PO; +ATOR80TA PO; +FURO40TA4 PO; +LACT10SO3 PO; +LEVE750T3 PO; +LOSA-534 PO; +MIDO5TAB22 PO; +POTA-228 PO
[2024-02-24 18:00] VITALS: PULSE 43; RESP 16; O2SAT 96
--- NOTE | 2024-02-24 18:03 | ED.PDOC ---
HPI Comments 69 y.o male with PMHx of Angina, Anxiety, Asthma, CAD, CHF, CKF, COPD, CVA (w/right deficits), Depression, DM, GERD, High Lipids, HTN, Liver, UT, MRSA, TIA, UTI'S, presents to the ED via EMS for a chief complaint of substernal chest pain radiating to his right arm that started 2 hours ago. Patient describes pain as a pressure, states it is constant, and rating a 9/10 on the pain scale. EMS reports patient's 12 lead read 48 sinus bradycardia en route and remains at that rate upon ED arrival. Patient denies any nausea, vomiting, abdominal pain, fever, chills. Chief Complaint: Chest Pain Time Seen by MD: 17:55 Primary Care Provider: unknown Reviewed Notes: Nurses Notes, Education Dean Notes, Medications, Allergies Allergies: Coded Allergies: NO KNOWN ALLERGIES (Unverified , 10/04/22) Home Meds Active Scripts Bumetanide (Bumetanide) 2 Mg Tab, 2 MG PO BID, #60 TAB Prov:ARON PERLA MD 05/15/23 Isosorbide Mononitrate (Isosorbide Mononitrate Er) 30 Mg Tab, 1 TAB PO DAILY for 90 Days, #90 TAB 5 Refills Prov:Janessa Beavers 07/29/19 Ranolazine (Ranexa) 500 Mg Tab, 500 MG PO BID for 30 Days, #60 TAB Prov:JUSTIN DUARTE MD 10/22/18 Atorvastatin Calcium (ATORVASTATIN CALCIUM) 20 Mg Tab, 80 MG PO HS for 30 Days, #120 TAB Prov:JUSTIN DUARTE MD 08/28/18 Amlodipine Besylate (NORVASC TABLET) 5 Mg Tb, 10 MG PO DAILY for 30 Days Prov:JUSTIN DUARTE MD 08/28/18 Reported Medications Lidocaine (Lidocaine Topical Pain Pa) 4 % Pad, 1 PATCH TOP DAILY 06/28/23 Gabapentin (Gabapentin) 800 Mg Tab, 1 TAB PO BID 06/28/23 Ipratropium-Albuterol (COMBIVENT RESPIMAT) Respimat Aer, 1 PUFF INH QID 05/14/23 Methocarbamol (Methocarbamol) 500 Mg Tab, 750 MG PO Q8HR PRN 05/14/23 Levetiracetam (Keppra) 500 Mg Tab, 1 TAB PO BID 05/14/23 Dapagliflozin Propanediol (Farxiga) 10 Mg Tab, 1 TAB PO DAILY 05/14/23 Oxycodone W/ Acetaminophen (Apap/Oxycodone) 1 Tab Tab, 1 TAB PO Q6HR PRN for SEVERE PAIN/BREAKTHROUGH PAIN for 14 Days 05/14/23 Hydralazine Hcl (Hydralazine Hcl) 50 Mg Tab, 1 TAB PO TID PRN 05/14/23 Beclomethasone Dipropionate (Qvar Redihaler) 80 Mcg/Act Aer, 1 PUFF INH BID 02/27/23 Silver Sulfadiazine (Silver Sulfadiazine) 1 % Cre, 1 APPLIC TOP DAILY, APPLIC 02/27/23 Oxybutynin Chloride (Ditropan Xl) 5 Mg Tab, 15 MG PO DAILY, TAB 02/27/23 Trazodone Hcl (Trazodone Hcl) 100 Mg Tab, 4 TAB PO HS 02/27/23 Metoprolol Succinate (Metoprolol Succinate Er) 25 Mg Tab, 1 TAB PO DAILY 02/27/23 Clopidogrel Bisulfate (CLOPIDOGREL) 75 Mg Tab, 1 TAB PO DAILY 02/07/23 Pantoprazole Sodium Sesquihydr (Pantoprazole Sodium) 40 Mg Tab, 1 TAB PO QAM 02/07/23 Losartan Potassium (Losartan Potassium) 25 Mg Tab, 1 TAB PO DAILY 02/07/23 Bupropion Hcl (Bupropion Hcl) 75 Mg Tab, 150 MG PO DAILY for 30 Days 11/10/17 Aspirin (KONSTANTIN ASPIRIN EC LOW DOSE) 81 Mg Tab, 1 TAB PO DAILY, #30 TAB 3 Refills 05/31/14 Information Source: Patient, Emergency Med Personnel Mode of Arrival: EMS Severity: Moderate Timing: Hours (2) Duration: Since onset Prehospital treatment: 12 Lead EKG, High School Tutor Location: Substernal Radiation: Arm (R) Quality: Pressure Onset: At Rest Cardiac Risk Factors: Hyperlipidemia, HTN, Diabetes PE Risk Factors: None History of: UT Modifying Factors: Nothing Past Medical History PAST MEDICAL HISTORY: Angina, Anxiety, Asthma, CAD, CHF, CKF, COPD, CVA, De pression, DM, GERD, High Lipids, HTN, Liver, UT, MRSA, TIA, UTI'S Surgical History: Appendectomy, Cholecystectomy, PTCA, Thyroidectomy Family History Family History: Reviewed,noncontributory to illness Social History Smoker: Cigarettes, Less Than 1 Pack/Day Alcohol: Denies ETOH Use Drugs: Denies Drug Use Lives In: Home Constitutional: denies: chills, diaphoresis, fatigue, fever, malaise, sweats, weakness, others EENTM: denies: blurred vision, double vision, ear bleeding, ear discharge, ear drainage, ear pain, ear ringing, eye pain, eye redness, hearing loss, mouth pain, mouth swelling, nasal discharge, nose bleeding, nose congestion, nose pain, photophobia, tearing, throat pain, throat swelling, voice changes, others Respiratory: denies: cough, hemoptysis, orthopnea, SOB at rest, shortness of breath, SOB with excertion, stridor, wheezing, others Cardiovascular: reports: chest pain, others (right arm pain ); denies: dizzy spells, diaphoresis, Dyspnea on exertion, edema, irregular heart beat, left arm pain, lightheadedness, palpitations, PND, syncope Gastrointestinal: denies: abdomen distended, abdominal pain, blood streaked bowels, constipated, diarrhea, dysphagia, difficulty swallowing, hematemesis, melena, nausea, poor appetite, poor fluid intake, rectal bleeding, rectal pain, vomiting, others Genitourinary: denies: burning, dysuria, flank pain, frequency, hematuria, incontinence, penile discharge, penile sore, pain, testicle pain, testicle swelling, urgency, others Neurological: denies: dizziness, fainting, headache, left sided numbness, left sided weakness, numbness, paresthesia, pre-existing deficit, right sided numbness, right sided weakness, seizure, speech problems, tingling, tremors, weakness, others Musculoskeletal: denies: back pain, gout, joint pain, joint swelling, muscle pain, muscle stiffness, neck pain, others Integumetry: denies: bruises, change in color, change in hair/nails, dryness, laceration, lesions, lumps, rash, wounds, others Allergic/Immunocompromised: denies: Difficulty Healing, Frequent Infections, Hives, Itching, others Hematologic/Lymphatic: denies: anemia, blood clots, easy bleeding, easy bruising, swollen glands, others Endocrine: denies: excessive hunger, excessive sweating, excessive thirst, excessive urination, flushing, intolerance to cold, intolerance to heat, unexplained weight gain, unexplained weight loss, others Psychiatric: denies: anxiety, bipolar disorder, depression, hopeless, panic disorder, schizophrenia, sleepless, suicidal, others All Other Systems: Reviewed and Negative Physical Exam General Appearance: Moderate Distress, Obese HEENT: Normal ENT Inspection, Pharynx Normal, TMs Normal Neck: Full Range of Motion, Non-Tender, Normal, Normal Inspection Respiratory: Chest Non-Tender, Lungs Clear, No Accessory Muscle Use, No Respiratory Distress, Normal Breath Sounds Cardiovascular: No Edema, No JVD, No Murmur, No Gallop, Normal Peripheral Pulses, Regular Rate/Rhythm Breast Exam: Deferred Gastrointestinal: No Organomegaly, Non Tender, No Pulsatile Mass, Normal Bowel Sounds, Soft Genitalia: Deferred Pelvic: Deferred Rectal: Deferred Extremities: No calf tenderness, Normal capillary refill, No pedal edema Musculoskeletal : Apperance: Normal Neurologic: Alert, regional geodetic advisor II-XII nml as Tested, Motor Weakness, Normal Affect, Normal Mood, No Sensory Deficits Cerebellar Function: Normal Reflexes: Normal Skin: Dry, Normal Color, Warm Lymphatic: No Adenopathy EKG EKG : Pulse Rate (adult): 45 Cardiac Rhythm: SB Block: LBBB Was a procedure done? Was a procedure done?: No CP Differential Dx Differential Diagnosis: N/A Differential Diagnosis: Angina, Chest Wall Pain, Costochondritis, Esophageal reflux/spasm, Myocardial Infarction, Pericarditis X-Ray, Labs, Meds, VS Vital Signs Date Time Temp Pulse Resp B/P (MAP) Pulse Ox O2 Delivery O2 Flow Rate FiO2 02/24/24 19:30 46 11 94 Room Air* 0 21 02/24/24 19:30 46 11 98/48 (65) 94 02/24/24 18:36 43 16 113/50 (71) 96 02/24/24 18:31 41 10 113/50 02/24/24 18:03 45 02/24/24 18:00 43 16 96 Room Air* 0 21 02/24/24 17:43 45 02/24/24 17:40 98.7 42 18 90/58 (69) 95 Lab Test 02/24/24 18:37 Range/Units White Blood Count 5.8 4.4-10.8 10^3/uL Red Blood Count 3.79 L 4.5-5.90 10^6/uL Hemoglobin 11.7 L 13.5-17.5 g/dL Hematocrit 37.1 L 41.0-53.0 % Mean Corpuscular Volume 97.9 80.0-100.0 fL Mean Corpuscular Hemoglobin 31.0 28.0-32.0 pg Mean Corpuscular Hemoglobin Concent 31.7 L 32.0-36.0 g/dL Red Cell Distribution Width 17.4 H 11.8-14.3 % Platelet Count 110 L 140-450 10^3/uL Mean Platelet Volume 10.9 H 6.9-10.8 fL Neutrophils (%) (Auto) 51.8 37.0-80.0 % Lymphocytes (%) (Auto) 29.9 10.0-50.0 % Monocytes (%) (Auto) 9.4 0.0-12.0 % Eosinophils (%) (Auto) 8.1 H 0.0-7.0 % Basophils (%) (Auto) 0.8 0.0-2.0 % Neutrophils # (Auto) 3.0 1.6-8.6 10 ^3/uL Lymphocytes # (Auto) 1.7 0.4-5.4 10 ^3/uL Monocytes # (Auto) 0.5 0-1.3 10 ^3/uL Eosinophils # (Auto) 0.5 0-0.8 10 ^3/uL Basophils # (Auto) 0 0-0.2 10 ^3/uL Nucleated Red Blood Cells 0.2 % Sodium Level 145 136-145 mmol/L Potassium Level 3.7 3.5-5.1 mmol/L Chloride Level 110 H 98-107 mmol/L Carbon Dioxide Level 30 20-31 mmol/L Anion Gap 5 5-15 Blood Urea Nitrogen 45 H 9-23 mg/dL Creatinine 2.40 H 0.700-1.30 mg/dL Glomerular Filtration Rate Calc 28 >90 mL/min BUN/Creatinine Ratio 18.8 10.0-20.0 Serum Glucose 101 74-106 mg/dL Calcium Level 10.0 8.7-10.4 mg/dL Troponin I High Sensitivity 26 </=54 ng/L B-Type Natriuretic Peptide 223.72 0-100 pg/mL Current Medications Medications (Trade) Dose Ordered Sig/Yvette Route Start Time Stop Time Status Last Admin Hydromorphone HCl (Dilaudid Injection) 1 mg ONCE ONCE IV 02/24/24 18:15 02/24/24 18:16 DC 02/24/24 18:31 Ondansetron HCl (Zofran) 4 mg ONCE ONCE IV 02/24/24 18:15 02/24/24 18:16 DC 02/24/24 18:30 IV Hep-Lock was established The patient was given Dilaudid 1 mg IV push for the pain The patient was given Zofran 4 mg IV push for the nausea The BNP is 222.72 The BUN is 45 and the creatinine is 2.4 The patient's CBC is within normal limits At this time, the patient was being admitted with a diagnosis of acute chest pain and myocardial ischemia with bradycardia A cardiology consult will be obtained. The patient was being admitted at this time. The patient understands and agrees with the management. We have discussed the patient's findings Images Reviewed?: Images reviewed and evaluated by me Time of 1ST Reevaluation: 18:00 Reevaluation 1ST: Unchanged Patient Education/Counseling: Diagnosis, Treatment, Prognosis Family Education/Counseling: No Family Present Departure 1 Departure Time of Disposition: 19:53 Impression: Primary Impression: Sinus bradycardia Additional Impression: ACS (acute coronary syndrome) Disposition: 09 ADMITTED INPATIENT Admit to: Tele Condition: Fair Critical Care Note Critical Care Time?: Yes (45 min-critical care time only) Stability Stability form required: Yes Unstable for transfer: Telemetry monitoring (Telemetry monitoring required), ED Physician Assesment (Clinical assesment) Heart Score Heart Score: Heart Score Response (Comments) Value History Highly Suspicious 2 EKG Repolarization Disturb 1 Age >65 2 Risk Factors >3 or Hx ASHD 2 Troponin Normal limit 0 Total 7 I personally scribed for SVEN BUI MD ([email or web address]) on 02/24/24 at 18:03. Electronically submitted by Josee Wang ([email or web address]). SVEN BUI MD Feb 24, 2024 18:03
[2024-02-24] MEDS: ONDANSETRON HCL 4 MG/2 ML VIAL IV ONE (18:30)
[2024-02-24] MEDS: HYDROmorphone HCL 2 MG/ML VL/or syr IV ONE (18:31)
[2024-02-24 18:53] LABS: Basophils # (auto) 0 10 ^3/uL (0-0.2); Basophils % (auto) 0.8 % (0.0-2.0); Eosinophils # (auto) 0.5 10 ^3/uL (0-0.8); Eosinophils % (auto) 8.1 % (0.0-7.0); Hematocrit 37.1 % (41.0-53.0); Hemoglobin 11.7 g/dL (13.5-17.5); Lymphocytes # (auto) 1.7 10 ^3/uL (0.4-5.4); Lymphocytes % (auto) 29.9 % (10.0-50.0); Mean Corpuscular Hgb Conc. 31.7 g/dL (32.0-36.0); Mean Corpuscular Volume 97.9 fL (80.0-100.0); Monocytes # (auto) 0.5 10 ^3/uL (0-1.3); Monocytes % (auto) 9.4 % (0.0-12.0); Neutrophils % (auto) 51.8 % (37.0-80.0); Nucleated Red Blood Cells % 0.2 %; Platelet Count (auto) 110 10^3/uL (140-450); Red Blood Cells 3.79 10^6/uL (4.5-5.90); Red Cell Distribution Width 17.4 % (11.8-14.3); White Blood Cell 5.8 10^3/uL (4.4-10.8)
[2024-02-24 19:03] LABS: Potassium 3.7 mmol/L (3.5-5.1)
[2024-02-24 19:04] LABS: Anion Gap 5 (5-15); Carbon Dioxide 30 mmol/L (20-31)
[2024-02-24 19:07] LABS: Chloride 110 mmol/L (98-107); Sodium 145 mmol/L (136-145)
[2024-02-24 19:09] LABS: BUN/Creatinine Ratio 18.8 (10.0-20.0); Glucose 101 mg/dL (74-106)
[2024-02-24 19:12] LABS: Blood Urea Nitrogen 45 mg/dL (9-23)
[2024-02-24 19:30] VITALS: PULSE 46; RESP 11; O2SAT 94
--- NOTE | 2024-02-24 19:48 | DVH ---
EXAM: XY CHEST PORTABLE TECHNIQUE: Single frontal chest radiograph CLINICAL HISTORY: CP COMPARISON: XY CHEST PORTABLE on DOS: 11/05/23, XY CHEST XRAY 1 VIEW on DOS: 07/04/23, XY CHEST XRAY 1 VIEW on DOS: 06/27/23 Findings/Impression: Frontal chest radiograph demonstrates no acute osseous or superficial soft tissue abnormalities. The trachea is midline. Cardiomegaly with pulmonar vascular congestion. No pneumothorax, pleural effusions, or consolidations.
[2024-02-24] MEDS ORDERED: ACETAMINOPHEN 325 MG TAB PO PRN (20:00)
[2024-02-24] MEDS ORDERED: MORPHINE SULFATE INJ 2 MG/ml SYRG IV PRN (20:00)
[2024-02-24] MEDS ORDERED: ONDANSETRON HCL 4 MG/2 ML VIAL IV PRN (20:00)
[2024-02-24] MEDS ORDERED: NITROGLYCERIN 0.4 MG SL TAB SL PRN (20:00)
--- NOTE | 2024-02-24 21:32 | DVHHP2 ---
History of Present Illness Reason for Visit: CHEST PAIN History of Present Illness 69-YEAR-OLD MALE PRESENTS FOR EVALUATION OF CHEST PAIN. PATIENT PRESENTS WITH A ONE DAY HISTORY OF LEFT-SIDED PRESSURE-LIKE NONRADIATING CHEST PAIN WITH ASSOCIATED DIZZINESS SHORTNESS FOR BREATH. PATIENT WAS NOTED TO BE BRADYCARDIC IN THE MID 40S WITH BLOOD PRESSURE RANGING FROM 90S TO LOW 100S. DENIES COUGH OR FEVER. DENIES ANY OTHER ACUTE COMPLAINTS AT THE MOMENT. Past Medical History CHRONIC KIDNEY DISEASE KIDNEY DISEASE, COPD, CVA, DIABETES MELLITUS, CHF, CAD, DYSLIPIDEMIA, HYPERTENSION Past Surgical History CHOLECYSTECTOMY, PTCA, THYROIDECTOMY AND APPENDECTOMY Family History NONCONTRIBUTORY Smoke: <1 pack per day ALCOHOL: none Drugs: None Lives: with Family Review of Systems Review of Systems REVIEW OF SYSTEMS ARE CURRENTLY NEGATIVE OTHERWISE ADDRESSED IN HPI. Allergies: Coded Allergies: NO KNOWN ALLERGIES (Unverified , 10/04/22) Medications Current Medications Medications Dose Ordered Sig/Yvette Route Start Time Stop Time Status Last Admin Dose Admin Clopidogrel Bisulfate 75 mg DAILY PO 02/25/24 10:00 Atorvastatin Calcium 80 mg HS PO 02/24/24 22:00 Aspirin 162 mg DAILY PO 02/25/24 10:00 Gabapentin 800 mg BID PO 02/24/24 22:00 Levetiracetam 500 mg BID PO 02/24/24 22:00 Ondansetron HCl 4 mg Q4HP PRN IV 02/24/24 20:00 Acetaminophen 650 mg Q6HP PRN PO 02/24/24 20:00 Nitroglycerin 0.4 mg Q5MINP PRN SL 02/24/24 20:00 Morphine Sulfate 2 mg Q30M PRN IV 02/24/24 20:00 Exam Vital Signs Vital Signs Date Time Temp Pulse Resp B/P (MAP) Pulse Ox O2 Delivery O2 Flow Rate FiO2 02/24/24 19:30 46 11 94 Room Air* 0 21 02/24/24 19:30 98/48 (65) 02/24/24 17:40 98.7 Exam GEN: 69-YEAR-OLD MALE IN MILD DISTRESS, MORBIDLY OBESE SKIN: WARM, DRY, NORMAL COLOR AND TEXTURE, NO RASH. HEENT: NORMOCEPHALIC ATRAUMATIC, MUCOUS MEMBRANES MOIST AND PINK. NECK: CERVICAL AND SUPRACLAVICULAR NODES NORMAL WITHOUT ENLARGEMENT, TRACHEA IS MIDLINE, THYROID GLAND IS NORMAL WITHOUT MASSES. PULMONARY: CLEAR TO AUSCULTATION AND PERCUSSION BILATERALLY. CARDIAC: SINUS BRADYCARDIA ABDOMEN: SOFT, NONTENDER, NONDISTENDED, BOWEL SOUNDS PRESENT ALL 4 QUADRANTS, NO GUARDING, NO RIGIDITY, NO ORGANOMEGALY. EXTREMITIES: NO CYANOSIS, CLUBBING, NO EDEMA NEURO: CRANIAL NERVES II THROUGH XII GROSSLY INTACT, NORMAL AFFECT AND SPEECH, NO FOCAL MOTOR DEFICITS. Labs/Xrays ORDERING PHYSICIAN: SVEN BUI MD PROCEDURE(s): CXRP - CHEST PORTABLE REASON: CP ORDER NUMBER(s): [id number], ACCESSION NUMBER(s): [id number] EXAM: XY CHEST PORTABLE TECHNIQUE: Single frontal chest radiograph CLINICAL HISTORY: COMPARISON: XY CHEST PORTABLE on DOS: 11/05/23, XY CHEST XRAY 1 VIEW on DOS: 07/04/23, XY CHEST XRAY 1 VIEW on DOS: 06/27/23 Findings/Impression: Frontal chest radiograph demonstrates no acute osseous or superficial soft tissue abnormalities. The trachea is midline. Cardiomegaly with pulmonar vascular congestion. No pneumothorax, pleural effusions, or consolidations. RING PHYSICIAN: JAYDON WEAVER MD PROCEDURE(s): ECIDC - ECHO 2D MODE CARDIAC DOP REASON: chest pain ORDER NUMBER(s): [id number], ACCESSION NUMBER(s): [id number] APPROVED REPORT EXAM: Two-dimensional and M-mode echocardiogram with Doppler and color Doppler. Blood Pressure: 98/46 mmHg INDICATION Chest Pain RISK FACTORS Height: 68, Weight: 300 DIMENSIONS LVDd 4.5 (3.8-5.7cm) LA (2D) 4.2 (1.9-4.0cm) Aortic Root 3.9 (2.0- 3.7cm) LVDs 2.9 (2.5-4.0cm) LA (MM) (1.9-4.0cm) Aortic Cusp Exc 1.7 (1.5- 2.0cm) EF (%) 67.0 (55-70%) Rt. Atrium (1.9-4.0cm) Asc. Aorta 4.1 cm IVSd 1.9 (0.7-1.1cm) RV (D) (1.8-2.4cm) PWd 1.5 (0.7-1.1cm) Mitral Valve Mitral Mitral Stenosis E wave 0.83m/s MV Mean GR. 12mmHg A wave 0.84m/s MV Peak GR. 21mmHg E/A ratio 1.0 2D MVA cm2 DECEL Time 263ms PRESS 1/2 Time ms Aortic Valve Aortic Valve Aortic Stenosis LVOT Diameter 2.4 (1.8-2.4cm) Doppler ZACK cm2 AI P 1/2 Time 707.75ms Pulmonic Valve V2 0.90m/s Conclusion Left ventricle: Moderate concentric left ventricular hypertrophy was observed. LVEF was 65 to 70%. There was no gross wall motion abnormality. Right ventricle was normal size with normal systolic function. Left atrium was mildly dilated. Right atrium was not well-visualized. Aortic valve: Aortic valve was trileaflet. There was at most mild aortic stenosis (aortic sclerosis was observed). Mild aortic insufficiency was observed. There was trivial tricuspid and mitral regurgitation. There was trivial pulmonary valve insufficiency. There was no pericardial effusion. IVC was normal size with normal respiratory variation. As there was no good tricuspid regurgitation jet, right ventricular systolic pressure could not be estimated. Aortic root was 3.9 cm. Ascending aorta was 4.1 cm. SIGNED BY: JAYDON WEAVER MD SIGNED DATE/TIME: 06/28/23 0714 Labs Test 02/24/24 19:50 02/24/24 18:37 Range/Units Troponin I High Sensitivity 24 </=54 ng/L White Blood Count 5.8 4.4-10.8 10^3/uL Red Blood Count 3.79 L 4.5-5.90 10^6/uL Hemoglobin 11.7 L 13.5-17.5 g/dL Hematocrit 37.1 L 41.0-53.0 % Mean Corpuscular Volume 97.9 80.0-100.0 fL Mean Corpuscular Hemoglobin 31.0 28.0-32.0 pg Mean Corpuscular Hemoglobin Concent 31.7 L 32.0-36.0 g/dL Red Cell Distribution Width 17.4 H 11.8-14.3 % Platelet Count 110 L 140-450 10^3/uL Mean Platelet Volume 10.9 H 6.9-10.8 fL Neutrophils (%) (Auto) 51.8 37.0-80.0 % Lymphocytes (%) (Auto) 29.9 10.0-50.0 % Monocytes (%) (Auto) 9.4 0.0-12.0 % Eosinophils (%) (Auto) 8.1 H 0.0-7.0 % Basophils (%) (Auto) 0.8 0.0-2.0 % Neutrophils # (Auto) 3.0 1.6-8.6 10 ^3/uL Lymphocytes # (Auto) 1.7 0.4-5.4 10 ^3/uL Monocytes # (Auto) 0.5 0-1.3 10 ^3/uL Eosinophils # (Auto) 0.5 0-0.8 10 ^3/uL Basophils # (Auto) 0 0-0.2 10 ^3/uL Nucleated Red Blood Cells 0.2 % Sodium Level 145 136-145 mmol/L Potassium Level 3.7 3.5-5.1 mmol/L Chloride Level 110 H 98-107 mmol/L Carbon Dioxide Level 30 20-31 mmol/L Anion Gap 5 5-15 Blood Urea Nitrogen 45 H 9-23 mg/dL Creatinine 2.40 H 0.700-1.30 mg/dL Glomerular Filtration Rate Calc 28 >90 mL/min BUN/Creatinine Ratio 18.8 10.0-20.0 Serum Glucose 101 74-106 mg/dL Calcium Level 10.0 8.7-10.4 mg/dL B-Type Natriuretic Peptide 223.72 0-100 pg/mL Assessment/Plan Assessment/Plan ASSESSMENT CHEST PAIN SYMPTOMATIC BRADYCARDIA CONGESTIVE HEART FAILURE ACUTE ON CHRONIC KIDNEY INJURY HISTORY OF CVA WITH RIGHT-SIDED DEFICITS MORBIDLY OBESE PLAN ADMIT THE PATIENT TO [facility] TO THE HOSPITALIST CARDIOLOGY CONSULTATION NEPHROLOGY CONSULT NPO EXCEPT MEDICATIONS CONTINUE TREATMENT PER ORDERS TOTAL CRITICAL CARE TIME EXCLUDING PROCEDURES PERFORMED THIS 50 MINUTES. Plan discussed with: Patient My Orders Orders - LARA BERNAL AGACNP Procedure Category Date Status Time Basic Metabolic Panel LAB 02/25/24 Verified 04:00 Clopidogrel Bisulfate PHA 02/25/24 In Process (Plavix) 10:00 Atorvastatin (Lipitor) PHA 02/24/24 In Process 22:00 Aspirin Tablet PHA 02/25/24 In Process 10:00 Gabapentin Capsule PHA 02/24/24 In Process (Neurontin Capsule) 22:00 Levetiracetam Tablet PHA 02/24/24 In Process (Keppra Tablet) 22:00 * Cardiology Consult CONS 02/24/24 Transmitted 19:49 Admit ADMIT 02/24/24 Transmitted 19:49 Ondansetron Hcl PHA 02/24/24 In Process (Zofran) 20:00 Complete Blood Count LAB 02/25/24 Verified 04:00 Comprehensive LAB 02/25/24 Verified Metabolic Panel 04:00 Cardiac DIET 02/25/24 Transmitted Diet-2gna,Lofat,Lochol Breakfast Condition: Critical ELLIE 02/24/24 In Process 19:49 Acetaminophen Tablet PHA 02/24/24 In Process (Tylenol Tablet) 20:00 Bedrest With Bathroom ELLIE 02/24/24 In Process Privileg 19:49 Nitroglycerin PHA 02/24/24 In Process Sublingual (Ntrostat 20:00 Morphine Sulfate PHA 02/24/24 In Process Injection 20:00 Stat Ekg For Chest ELLIE 02/24/24 In Process Pain 19:49 Notify Md Of Changes ELLIE 02/24/24 In Process From Base 19:49 Senior Linux Administrator For [facility] 02/24/24 In Process 24 Hours 19:49 Emergency Dysrhythmia ELLIE 02/24/24 In Process Protocol 19:49 Rhythm Strips Once [facility] 02/24/24 In Process Every Shift 19:49 Oxygen By Nasal RT 02/24/24 Transmitted Cannula 19:49 Date of Service: Feb 24, 2024 Billing Provider: LARA BERNAL Common Visit Codes: [id number] CARE 30-74 MIN LARA BERNAL Feb 24, 2024 21:32
[2024-02-24] MEDS: FUROSEMIDE 20 MG/2 ML VIAL IV ONE (21:47)
[2024-02-24] MEDS: ATORVASTATIN 20 MG TAB PO SCH (22:35)
[2024-02-24] MEDS: levETIRAcetam 500 MG TAB PO SCH (22:35)
[2024-02-24] MEDS: GABAPENTIN 400 MG CAP PO SCH (22:36)
[2024-02-25 02:54] LABS: Urine Bacteria FEW /hpf (None Seen); Urine Blood Negative /uL (Negative); Urine Clarity Clear (Clear); Urine Color Light-Yellow (Yellow); Urine Hyaline Cast FEW /lpf (0 - 2); Urine Protein, UAD Negative (Negative); Urine Specific Gravity 1.011 (1.001-1.035); Urine Squamous Epithelial Cell FEW /hpf (<5); Urine Urobilinogen Normal (Negative); Urine WBC 1 /hpf (0 - 3)
[2024-02-25 07:38] LABS: Alanine Aminotransferase 26 U/L (7-40); Albumin 3.6 g/dL (3.2-4.8); Alkaline Phosphatase 77 U/L (46-116); Anion Gap 6 (5-15); Aspartate Aminotransferase 32 U/L (13-40); BUN/Creatinine Ratio 20.8 (10.0-20.0); Calcium 9.9 mg/dL (8.7-10.4); Carbon Dioxide 29 mmol/L (20-31); Glucose 104 mg/dL (74-106); Potassium 3.9 mmol/L (3.5-5.1); Sodium 145 mmol/L (136-145)
[2024-02-25 07:42] LABS: Basophils # (auto) 0 10 ^3/uL (0-0.2); Basophils % (auto) 0.2 % (0.0-2.0); Eosinophils # (auto) 0.5 10 ^3/uL (0-0.8); Eosinophils % (auto) 6.3 % (0.0-7.0); Hematocrit 30.4 % (41.0-53.0); Hemoglobin 10.1 g/dL (13.5-17.5); Lymphocytes # (auto) 1.5 10 ^3/uL (0.4-5.4); Lymphocytes % (auto) 17.1 % (10.0-50.0); Mean Corpuscular Hemoglobin 31.4 pg (28.0-32.0); Mean Corpuscular Hgb Conc. 33.1 g/dL (32.0-36.0); Mean Corpuscular Volume 94.8 fL (80.0-100.0); Monocytes # (auto) 0.5 10 ^3/uL (0-1.3); Monocytes % (auto) 6.2 % (0.0-12.0); Neutrophils % (auto) 70.2 % (37.0-80.0); Nucleated Red Blood Cells % 0.1 %; Platelet Count (auto) 122 10^3/uL (140-450); White Blood Cell 8.5 10^3/uL (4.4-10.8)
[2024-02-25 07:49] LABS: Bilirubin, Total 0.2 mg/dL (0.2-1.0); Blood Urea Nitrogen 49 mg/dL (9-23); Chloride 110 mmol/L (98-107)
[2024-02-25 08:00] VITALS: PULSE 52; RESP 18; O2SAT 96
[2024-02-25] MEDS: CLOPIDOGREL BISULFATE 75 MG TAB PO SCH (10:02)
[2024-02-25] MEDS: ASPirin 81 mg TAB PO SCH (10:02)
[2024-02-25] MEDS: FUROSEMIDE 40 MG TAB PO SCH (10:02)
[2024-02-25 13:04] LABS: COVID19 ANTIGEN SOFIA FIA NEGATIVE (NEGATIVE)
[2024-02-25 13:05] LABS: Rapid Influenza A Negative (Negative); Rapid Influenza B Negative (Negative)
--- NOTE | 2024-02-25 14:47 | ECG ---
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
[2024-02-25] MEDS: ASPirin 81 mg TAB PO ONE (14:52)
--- NOTE | 2024-02-25 15:17 | DVHPNRES ---
Progress Note Date Seen: Feb 25, 2024 Resident Creating Document: DAYTON LARA RESIDENT Medical Necessity Reason Pt with a Central, PICC or Fol: No Subjective Review of Systems 69-year-old male patient with past medical history of chronic kidney disease, COPD, cerebrovascular accident, heart failure, coronary artery disease, dyslipidemia hypertension who was brought to the hospital with a chief complaint of left-sided chest pain described as pressure-like, nonradiating associated with shortness of breaths, dizziness. Patient's heart rate is in the mid 40s/50s, with a blood pressure in the 100s SBP, cardiology was consulted, they recommend to perform a Cardiolite stress test with a adenosine and tried to manage the chest pain with aspirin 81 mg. Patient will remain NPO. Patient's creatinine 2, 36 and BUN 20.6, troponin levels within normal limits. An EKG showed sinus bradycardia. Patient was noted to have a left arm non healed wound , likely chronic. Hemoglobin A1c and glucose levels within normal limits. We will follow-up on results. ROS: Constitutional: No: Fever, Chills, Sweats, Weakness, Malaise, Other Eyes: No: Pain, Vision change, Conjunctivae inflammation, Eyelid inflammation, Other, Redness ENT: No: Ear pain, Ear discharge, Nose pain, Nose discharge, Nose congestion, Mouth pain, Mouth swelling, Throat pain, Throat swelling, Other Respiratory: Shortness of breath, improving , currently on 2 L through nasal cannula No Wheezing, Hemoptysis, Pleuritic Pain, Sputum, Wheezing, Other Cardiovascular: No: Chest Pain, Palpitations, Orthopnea, Paroxysmal Noc. Dyspnea, Edema, Lt Headedness, Other Gastrointestinal: No: Nausea, Vomiting, Abdominal Pain, Diarrhea, Constipation, Melena, Hematochezia, Other Musculoskeletal: No: other, neck pain, shoulder pain, arm pain, back pain, hand pain, leg pain, foot pain Neurological:; No: Weakness, Numbness, Incoordination, Change in speech, Confusion, Seizures Patient reports: No new complaints Changes from previous H/P or p: No Changes Objective vital signs Vital Sign Date Time Temp Pulse Resp B/P (MAP) Pulse Ox O2 Delivery O2 Flow Rate FiO2 02/25/24 11:00 52 18 106/31 (56) 96 02/25/24 08:00 Nasal Cannula* 2 28 02/25/24 08:00 97.7 97.7 medications Current Medications Medications Dose Ordered Sig/Yvette Route Start Time Stop Time Status Last Admin Dose Admin Clopidogrel Bisulfate 75 mg DAILY PO 02/25/24 10:00 02/25/24 10:02 75 MG Atorvastatin Calcium 80 mg HS PO 02/24/24 22:00 02/24/24 22:35 80 MG Aspirin 162 mg DAILY PO 02/25/24 10:00 02/25/24 10:02 162 MG Gabapentin 800 mg BID PO 02/24/24 22:00 02/25/24 10:02 800 MG Levetiracetam 500 mg BID PO 02/24/24 22:00 02/25/24 10:02 500 MG Ondansetron HCl 4 mg Q4HP PRN IV 02/24/24 20:00 Acetaminophen 650 mg Q6HP PRN PO 02/24/24 20:00 Nitroglycerin 0.4 mg Q5MINP PRN SL 02/24/24 20:00 Morphine Sulfate 2 mg Q30M PRN IV 02/24/24 20:00 Furosemide 40 mg DAILY PO 02/25/24 10:00 02/25/24 10:02 40 MG Examination Examination General Appearance: Alert, Oriented X3, Cooperative, No acute distress Respiratory: Clear to auscultation, Normal air movement Cardiovascular: Regular rate, Normal S1, Normal S2 Abdominal: Normal bowel sounds Extremities: No cyanosis, No edema, Normal pulses, No tenderness/swelling Skin: No rashes, No breakdown Neuro: Normal gait, Normal speech, Strength at 5/5 X4 ext, Normal tone, Sensation intact, Cranial nerves 3-12 NL, Reflexes 2+ Psych/Mental Status: Mental status NL, Mood NL laboratory and microbiology Laboratory Tests 02/25/24 06:25 Test 02/25/24 06:25 Range/Units Serum Glucose 104 74-106 mg/dL Problem List/Assessment/Plan Problem List/Assessment/Plan Acute chest pain likely symptomatic bradycardia -stress test Cardiolite with a adenosine scheduled for tomorrow -cardiology on board -aspirin 81 mg -[place] for pain control Acute on chronic systolic/diastolic congestive heart failure -echocardiogram is pending -cardiology on board Acute on chronic kidney disease -GFR 29 -creatinine, improving History of CVA with right-sided deficits Morbidly obese -lifestyle modification counseling, dietary modification counseling Case discussed with Dr. Callahan Goals of care discussed with the patient for 28 minutes Code status: Full code Plan discussed with: Patient My Orders My Orders Orders - DAYTON LARA Procedure Category Date Status Time * Wound Consult CONS 02/25/24 Transmitted Strict I & O ELLIE 02/25/24 In Process 10:55 Cardiolite Multiple NM 02/25/24 Logged 14:20 Npo (Nothing By DIET 02/25/24 Transmitted Mouth) Diet Dinner Date of Service: Feb 25, 2024 Billing Provider: DANIEL CALLAHAN MD Common Visit Codes: [id number] INP/OBS CARE(HIGH) Secondary Visit Codes: [id number] CARE PLAN 30 MINUTES DAYTON LARA Feb 25, 2024 15:17 DANIEL CALLAHAN MD Feb 25, 2024 19:44
[2024-02-25] MEDS: HYDROcodone-ACET 10/325MG TAB PO ONE (18:20)
[2024-02-25 19:35] VITALS: PULSE 53; RESP 14; O2SAT 95
[2024-02-25] MEDS: NYSTATIN TOPICAL POWDER 15GM TOP SCH (21:40)
--- NOTE | 2024-02-25 23:53 | DVHINCON2 ---
Date of service: Feb 25, 2024 Referring Physician Pranav Reason for Consultation Chest pain, bradycardia History of Present Illness This is a 69 year old male with a PMH of Angina, Anxiety, Asthma, CAD, CHF, CKF, COPD, CVA, Depression, DM, GERD, High Lipids, HTN, Liver, [place], MRSA, TIA who presented to the ED by EMS on 02/23 with complaints of substernal chest pain radiating to his right arm that began 2 hours LADLE FILLER on 02/23. Patient describes pain as a pressure, states it is constant, and rating a 9/10 on the pain scale. EMS reports patient's 12 lead read sinus bradycardia at 48 bpm en route. EKG showed bradycardia at 45. BNP 222.72. BUN 45, creatinine 2.4. CBC is within normal limits. Patient was admitted to the hospital. I am asked to consult on this patient. Family History: Alcoholism G8 MOTHER, Onset:Unknown Cancer G8 SISTER (uterine cancer) Cardiovascular disease G8 SISTER Cerebrovascular accident (CVA) G8 BROTHER Chronic obstructive pulmonary disease G8 SISTER Depression G8 SISTER Diabetes mellitus G8 SISTER G8 SISTER Family history: Cardiovascular disease Family history: Depression (situation) Family history: Hypertension Family history: Hypertension Glaucoma MATERNAL GPA Sepsis Stroke Stroke Allergies: Coded Allergies: NO KNOWN ALLERGIES (Unverified , 10/04/22) Home Meds Active Scripts Bumetanide (Bumetanide) 2 Mg Tab, 2 MG PO BID, #60 TAB Prov:ARON PERLA MD 05/15/23 Isosorbide Mononitrate (Isosorbide Mononitrate Er) 30 Mg Tab, 1 TAB PO DAILY for 90 Days, #90 TAB 5 Refills Prov:Janessa Beavers 07/29/19 Ranolazine (Ranexa) 500 Mg Tab, 500 MG PO BID for 30 Days, #60 TAB Prov:JUSTIN DUARTE MD 10/22/18 Atorvastatin Calcium (ATORVASTATIN CALCIUM) 20 Mg Tab, 80 MG PO HS for 30 Days, #120 TAB Prov:JUSTIN DUARTE MD 08/28/18 Amlodipine Besylate (NORVASC TABLET) 5 Mg Tb, 10 MG PO DAILY for 30 Days Prov:JUSTIN DUARTE MD 08/28/18 Reported Medications Lidocaine (Lidocaine Topical Pain Pa) 4 % Pad, 1 PATCH TOP DAILY 06/28/23 Gabapentin (Gabapentin) 800 Mg Tab, 1 TAB PO BID 06/28/23 Ipratropium-Albuterol (COMBIVENT RESPIMAT) Respimat Aer, 1 PUFF INH QID 05/14/23 Methocarbamol (Methocarbamol) 500 Mg Tab, 750 MG PO Q8HR PRN 05/14/23 Levetiracetam (Keppra) 500 Mg Tab, 1 TAB PO BID 05/14/23 Dapagliflozin Propanediol (Farxiga) 10 Mg Tab, 1 TAB PO DAILY 05/14/23 Oxycodone W/ Acetaminophen (Apap/Oxycodone) 1 Tab Tab, 1 TAB PO Q6HR PRN for SEVERE PAIN/BREAKTHROUGH PAIN for 14 Days 05/14/23 Hydralazine Hcl (Hydralazine Hcl) 50 Mg Tab, 1 TAB PO TID PRN 05/14/23 Beclomethasone Dipropionate (Qvar Redihaler) 80 Mcg/Act Aer, 1 PUFF INH BID 02/27/23 Silver Sulfadiazine (Silver Sulfadiazine) 1 % Cre, 1 APPLIC TOP DAILY, APPLIC 02/27/23 Oxybutynin Chloride (Ditropan Xl) 5 Mg Tab, 15 MG PO DAILY, TAB 02/27/23 Trazodone Hcl (Trazodone Hcl) 100 Mg Tab, 4 TAB PO HS 02/27/23 Metoprolol Succinate (Metoprolol Succinate Er) 25 Mg Tab, 1 TAB PO DAILY 02/27/23 Clopidogrel Bisulfate (CLOPIDOGREL) 75 Mg Tab, 1 TAB PO DAILY 02/07/23 Pantoprazole Sodium Sesquihydr (Pantoprazole Sodium) 40 Mg Tab, 1 TAB PO QAM 02/07/23 Losartan Potassium (Losartan Potassium) 25 Mg Tab, 1 TAB PO DAILY 02/07/23 Bupropion Hcl (Bupropion Hcl) 75 Mg Tab, 150 MG PO DAILY for 30 Days 11/10/17 Aspirin (KONSTANTIN ASPIRIN EC LOW DOSE) 81 Mg Tab, 1 TAB PO DAILY, #30 TAB 3 Refills 05/31/14 Current Medications Current Medications Medications (Trade) Dose Ordered Sig/Yvette Route PRN Reason Start Time Stop Time Status Last Admin Clopidogrel Bisulfate (Plavix) 75 mg DAILY PO 02/25/24 10:00 02/25/24 10:02 Aspirin 162 mg DAILY PO 02/25/24 10:00 02/25/24 10:02 Furosemide (Lasix Tablet) 40 mg DAILY PO 02/25/24 10:00 02/25/24 10:02 Acetaminophen/ Hydrocodone Bitart ([place] 5/325MG Tab) 1 tab Q8HPRN PRN PO MODERATE PAIN (4-6 PAIN SCALE) 02/25/24 18:00 Nystatin (Mycostatin Powder) 1 applic BID TOP 02/25/24 22:00 02/25/24 21:40 Review of Systems Constitutional: denies: chills, diaphoresis, fatigue, fever, malaise, sweats, weakness, others EENTM: denies: blurred vision, double vision, ear bleeding, ear discharge, ear drainage, ear pain, ear ringing, eye pain, eye redness, hearing loss, mouth pain, mouth swelling, nasal discharge, nose bleeding, nose congestion, nose pain, photophobia, tearing, throat pain, throat swelling, voice changes, others Respiratory: denies: cough, hemoptysis, orthopnea, SOB at rest, shortness of breath, SOB with excertion, stridor, wheezing, others Cardiovascular: reports: chest pain, others (right arm pain ); denies: dizzy spells, diaphoresis, Dyspnea on exertion, edema, irregular heart beat, left arm pain, lightheadedness, palpitations, PND, syncope Gastrointestinal: denies: abdomen distended, abdominal pain, blood streaked bowels, constipated, diarrhea, dysphagia, difficulty swallowing, hematemesis, melena, nausea, poor appetite, poor fluid intake, rectal bleeding, rectal pain, vomiting, others Genitourinary: denies: burning, dysuria, flank pain, frequency, hematuria, incontinence, penile discharge, penile sore, pain, testicle pain, testicle swelling, urgency, others Neurological: denies: dizziness, fainting, headache, left sided numbness, left sided weakness, numbness, paresthesia, pre-existing deficit, right sided numbness, right sided weakness, seizure, speech problems, tingling, tremors, weakness, others Musculoskeletal: denies: back pain, gout, joint pain, joint swelling, muscle pain, muscle stiffness, neck pain, others Integumetry: denies: bruises, change in color, change in hair/nails, dryness, laceration, lesions, lumps, rash, wounds, others Allergic/Immunocompromised: denies: Difficulty Healing, Frequent Infections, Hives, Itching, others Hematologic/Lymphatic: denies: anemia, blood clots, easy bleeding, easy bruising, swollen glands, others Endocrine: denies: excessive hunger, excessive sweating, excessive thirst, excessive urination, flushing, intolerance to cold, intolerance to heat, unexplained weight gain, unexplained weight loss, others Psychiatric: denies: anxiety, bipolar disorder, depression, hopeless, panic disorder, schizophrenia, sleepless, suicidal, others All Other Systems: Reviewed and Negative Vital Signs Vital Signs Date Time Temp Pulse Resp B/P (MAP) Pulse Ox O2 Delivery O2 Flow Rate FiO2 02/25/24 19:35 53 14 95 Nasal Cannula* 2 28 02/25/24 19:30 98.0 124/43 (70) 98.0 Physical Exam GENERAL: Awake, alert, oriented. Obese. LUNGS: Clear. CARDIOVASCULAR: Heart sounds are good. ABDOMEN: Soft. Labs/Diagnostic Data Labs Test 02/25/24 11:30 02/25/24 06:25 02/24/24 21:44 02/24/24 18:37 Range/Units Influenza Type A Antigen Negative Negative Influenza Type B Antigen Negative Negative SARS-CoV-2 Antigen (Rapid) Negative NEGATIVE White Blood Count 8.5 # 4.4-10.8 10^3/uL Red Blood Count 3.20 L 4.5-5.90 10^6/uL Hemoglobin 10.1 L 13.5-17.5 g/dL Hematocrit 30.4 #L 41.0-53.0 % Mean Corpuscular Volume 94.8 80.0-100.0 fL Mean Corpuscular Hemoglobin 31.4 28.0-32.0 pg Mean Corpuscular Hemoglobin Concent 33.1 32.0-36.0 g/dL Red Cell Distribution Width 17.0 H 11.8-14.3 % Platelet Count 122 L 140-450 10^3/uL Mean Platelet Volume 11.2 H 6.9-10.8 fL Neutrophils (%) (Auto) 70.2 37.0-80.0 % Lymphocytes (%) (Auto) 17.1 10.0-50.0 % Monocytes (%) (Auto) 6.2 0.0-12.0 % Eosinophils (%) (Auto) 6.3 0.0-7.0 % Basophils (%) (Auto) 0.2 0.0-2.0 % Neutrophils # (Auto) 6.0 1.6-8.6 10 ^3/uL Lymphocytes # (Auto) 1.5 0.4-5.4 10 ^3/uL Monocytes # (Auto) 0.5 0-1.3 10 ^3/uL Eosinophils # (Auto) 0.5 0-0.8 10 ^3/uL Basophils # (Auto) 0 0-0.2 10 ^3/uL Nucleated Red Blood Cells 0.1 % Sodium Level 145 136-145 mmol/L Potassium Level 3.9 3.5-5.1 mmol/L Chloride Level 110 H 98-107 mmol/L Carbon Dioxide Level 29 20-31 mmol/L Anion Gap 6 5-15 Blood Urea Nitrogen 49 H 9-23 mg/dL Creatinine 2.36 H 0.700-1.30 mg/dL Glomerular Filtration Rate Calc 29 >90 mL/min BUN/Creatinine Ratio 20.8 H 10.0-20.0 Serum Glucose 104 74-106 mg/dL Hemoglobin A1c 5.1 <5.7 % A1C Calcium Level 9.9 8.7-10.4 mg/dL Total Bilirubin 0.2 0.2-1.0 mg/dL Aspartate Amino Transferase (AST) 32 13-40 U/L Alanine Aminotransferase (ALT) 26 7-40 U/L Alkaline Phosphatase 77 46-116 U/L Total Protein 7.0 5.7-8.2 g/dL Albumin 3.6 3.2-4.8 g/dL Vitamin B12 Level 518 211-911 pg/mL Vitamin D 25-Hydroxy 24.0 L 30.0-100 ng/mL Thyroid Stimulating Hormone (TSH) 2.23 0.55-4.78 uIU/mL Troponin I High Sensitivity 26 </=54 ng/L B-Type Natriuretic Peptide 223.72 0-100 pg/mL Test 02/24/24 01:27 Range/Units Urine Color Light-yellow Yellow Urine Clarity Clear Clear Urine pH 5.0 5.0-9.0 Urine Specific Moran 1.011 1.001-1.035 Urine Protein Negative Negative Urine Ketones Negative Negative Urine Blood Negative Negative /uL Urine Nitrite Negative Negative Urine Bilirubin Negative Negative Urine Urobilinogen Normal Negative mg/dL Urine Leukocyte Esterase Negative Negative /uL Urine RBC None seen 0 - 3 /hpf Urine WBC 1 0 - 3 /hpf Urine Squamous Epithelial Cells Few <5 /hpf Urine Bacteria Few H None Seen /hpf Urine Hyaline Casts Few 0 - 2 /lpf Urine Glucose Trace Normal mg/dL Assessment Chest pain. Bradycardia. Acute on chronic systolic/diastolic congestive heart failure. Acute on chronic kidney disease. History of CVA with right-sided deficits. Morbidly obese. Plan/Recommendation I agree with your ongoing assessment and care of plan. Stress test Cardiolite with a adenosine scheduled for tomorrow. Echocardiogram. Morphine and [place] for pain management. Aspirin, Lipitor, Plavix. Diuretics with Lasix. Additional plan as per the hospital course. A total of 45 minutes was spent reviewing the patient record, examining the patient, making a diagnostic and therapeutic plan, discussing this plan with medical personnel, following up on diagnostic studies and following the patient for clinical stability excluding any and all procedures. At least 50% of this time was spent in direct, [id number] contact. Plan discussed with: Patient ROHINI ABARCA MD Feb 25, 2024 23:53
[2024-02-26 06:29] LABS: Potassium 3.9 mmol/L (3.5-5.1); Sodium 144 mmol/L (136-145)
[2024-02-26 06:30] LABS: Anion Gap 6 (5-15); Carbon Dioxide 30 mmol/L (20-31)
[2024-02-26 06:35] LABS: BUN/Creatinine Ratio 19.1 (10.0-20.0); Blood Urea Nitrogen 49 mg/dL (9-23); Chloride 108 mmol/L (98-107); Glucose 88 mg/dL (74-106)
[2024-02-26 07:01] LABS: Basophils # (auto) 0 10 ^3/uL (0-0.2); Basophils % (auto) 0.3 % (0.0-2.0); Eosinophils # (auto) 0.4 10 ^3/uL (0-0.8); Eosinophils % (auto) 5.4 % (0.0-7.0); Hemoglobin 10.2 g/dL (13.5-17.5); Lymphocytes # (auto) 2.3 10 ^3/uL (0.4-5.4); Lymphocytes % (auto) 30.6 % (10.0-50.0); Mean Corpuscular Hgb Conc. 32.7 g/dL (32.0-36.0); Mean Corpuscular Volume 94.8 fL (80.0-100.0); Monocytes # (auto) 0.6 10 ^3/uL (0-1.3); Monocytes % (auto) 7.8 % (0.0-12.0); Neutrophils # (auto) 4.3 10 ^3/uL (1.6-8.6); Neutrophils % (auto) 55.9 % (37.0-80.0); Nucleated Red Blood Cells % 0.1 %; Platelet Count (auto) 128 10^3/uL (140-450); Red Blood Cells 3.28 10^6/uL (4.5-5.90); Red Cell Distribution Width 16.7 % (11.8-14.3); White Blood Cell 7.7 10^3/uL (4.4-10.8)
[2024-02-26 07:30] VITALS: O2SAT 100
[2024-02-26] MEDS ORDERED: BUDE1AER4 IN (13:43)
--- NOTE | 2024-02-26 14:29 | DVHPNRES ---
Progress Note Date Seen: Feb 26, 2024 Resident Creating Document: DAYTON LARA RESIDENT Medical Necessity Reason Pt with a Central, PICC or Fol: No Subjective Review of Systems 69-year-old male patient with past medical history of chronic kidney disease, COPD, cerebrovascular accident, heart failure, coronary artery disease, dyslipidemia hypertension who was brought to the hospital with a chief complaint of left-sided chest pain described as pressure-like, nonradiating associated with shortness of breaths, dizziness. Patient's heart rate is in the mid 40s/50s, with a blood pressure in the 100s SBP, cardiology was consulted, they recommend to perform a Cardiolite stress test with a adenosine and tried to manage the chest pain with aspirin 81 mg. Patient will remain NPO. Patient's creatinine 2, 36 and BUN 20.6, troponin levels within normal limits. An EKG showed sinus bradycardia. Patient was noted to have a non healed wound in the left arm , likely chronic. Hemoglobin A1c and glucose levels within normal limits. cardiolite stress test pending echocardiogram pending. Patient's HR today between 55 -62 , patient is stable without acute complaints.Patient currently on [place] for pain control. Patient on lasix 40 mg for diuresis, Creatinine increased until 2,57, nephology consult. Patient reports: Feels better Changes from previous H/P or p: Changes Review of Systems: HEENT:Normal, CVS:Normal, RESPIRATORY:Normal, GI:Normal, :Normal, MSK:Normal, NEURO:Normal Objective vital signs Vital Sign Date Time Temp Pulse Resp B/P (MAP) Pulse Ox O2 Delivery O2 Flow Rate FiO2 02/26/24 13:00 54 25 100/46 (64) 02/26/24 12:00 92 02/26/24 07:30 Nasal Cannula* 2 28 02/25/24 19:30 98.0 98.0 Total Intake and Output 02/25/24 02/25/24 02/26/24 15:00 23:00 07:00 Output Total 600 ml 450 ml Balance -600 ml -450 ml medications Current Medications Medications Dose Ordered Sig/Yvette Route Start Time Stop Time Status Last Admin Dose Admin Clopidogrel Bisulfate 75 mg DAILY PO 02/25/24 10:00 02/26/24 10:27 75 MG Atorvastatin Calcium 80 mg HS PO 02/24/24 22:00 02/25/24 21:40 80 MG Aspirin 162 mg DAILY PO 02/25/24 10:00 02/26/24 10:26 162 MG Gabapentin 800 mg BID PO 02/24/24 22:00 02/26/24 10:28 800 MG Levetiracetam 500 mg BID PO 02/24/24 22:00 02/26/24 10:28 500 MG Ondansetron HCl 4 mg Q4HP PRN IV 02/24/24 20:00 Acetaminophen 650 mg Q6HP PRN PO 02/24/24 20:00 Nitroglycerin 0.4 mg Q5MINP PRN SL 02/24/24 20:00 Morphine Sulfate 2 mg Q30M PRN IV 02/24/24 20:00 Furosemide 40 mg DAILY PO 02/25/24 10:00 02/25/24 10:02 40 MG Acetaminophen/ Hydrocodone Bitart 1 tab Q8HPRN PRN PO 02/25/24 18:00 Nystatin 1 applic BID TOP 02/25/24 22:00 02/26/24 10:25 1 APPLIC Examination Examination General Appearance: Morbidly obese, Alert, Oriented X3, Cooperative, No acute distress Respiratory: Clear to auscultation, Normal air movement Cardiovascular: Bradycardia, Regular rate, Normal S1, Normal S2 Abdominal: Normal bowel sounds Extremities: No cyanosis, No edema, Normal pulses, No tenderness/swelling Skin: Chronic nonhealing wound in the left arm Neuro: Normal speech, Strength at 5/5 X4 ext, Normal tone, Sensation intact, Cranial nerves 3-12 NL, Reflexes 2+ Psych/Mental Status: Mental status NL, Mood NL laboratory and microbiology Laboratory Tests 02/26/24 05:25 Test 02/26/24 05:25 Range/Units Serum Glucose 88 74-106 mg/dL Problem List/Assessment/Plan Problem List/Assessment/Plan Acute chest pain likely symptomatic bradycardia -stress test Cardiolite with a adenosine scheduled for tomorrow -cardiology on board -aspirin 81 mg -[place] for pain control Acute on chronic systolic/diastolic congestive heart failure -echocardiogram is pending -cardiology on board Acute kidney injury on chronic kidney disease -GFR 29 -creatinine, 2.57 -nephrology consult History of CVA with right-sided deficits Morbidly obese -lifestyle modification counseling, dietary modification counseling Case discussed with Dr. Callahan Goals of care discussed with the patient for 28 minutes Code status: Full code Plan discussed with: Patient My Orders My Orders Orders - DAYTON LARA RESIDENT Procedure Category Date Status Time Npo (Nothing By DIET 02/25/24 Transmitted Mouth) Diet Dinner Hydrocodone-Acet PHA 02/25/24 In Process 5/325mg Tab ([place] 18:00 Mechanical Soft Diet DIET 02/26/24 Transmitted Breakfast Cardiolite Multiple NM 02/26/24 Taken 07:54 Dietary Evaluation Review Comments: 1. Obtain an updates lipid profile, if elvated, consider a 2 gNa low fat and low cholesterol restriction. 2. restrict CCHO-60 for tight DM control. 3. Monitor PO intake to meet 75% of his needs Expected Outcomes/Goals: Gradual weight loss, improved lab values. healed wounds as a ressult of weight reduction and tight DM control Date of Service: Feb 26, 2024 Billing Provider: DANIEL CALLAHAN MD Common Visit Codes: [id number] INP/OBS CARE(HIGH) DAYTON LARA RESIDENT Feb 26, 2024 14:29 DANIEL CALLAHAN MD Feb 26, 2024 20:53
[2024-02-26 19:30] VITALS: O2SAT 100
--- NOTE | 2024-02-26 22:34 | DVHPN2 ---
Progress Note - Dictate Date Seen: Feb 26, 2024 Medical Necessity Reason Pt with a Central, PICC or Fol: No Subjective Patient was seen and evaluated in follow up. Chest pain improved. Hemoglobin A1c and glucose levels within normal limits. Cardiolite stress test and echocardiogram are pending. HR stable today. vital signs Vital Sign Date Time Temp Pulse Resp B/P (MAP) Pulse Ox O2 Delivery O2 Flow Rate FiO2 02/26/24 20:34 70 18 112/39 (63) 98 02/26/24 19:00 98.7 98.7 02/26/24 07:30 Nasal Cannula* 2 28 Total Intake and Output 02/25/24 02/25/24 02/26/24 15:00 23:00 07:00 Output Total 600 ml 450 ml Balance -600 ml -450 ml medications Current Medications Medications Dose Ordered Sig/Yvette Route Start Time Stop Time Status Last Admin Dose Admin Clopidogrel Bisulfate 75 mg DAILY PO 02/25/24 10:00 02/26/24 10:27 75 MG Atorvastatin Calcium 80 mg HS PO 02/24/24 22:00 02/25/24 21:40 80 MG Aspirin 162 mg DAILY PO 02/25/24 10:00 02/26/24 10:26 162 MG Gabapentin 800 mg BID PO 02/24/24 22:00 02/26/24 10:28 800 MG Levetiracetam 500 mg BID PO 02/24/24 22:00 02/26/24 10:28 500 MG Ondansetron HCl 4 mg Q4HP PRN IV 02/24/24 20:00 Acetaminophen 650 mg Q6HP PRN PO 02/24/24 20:00 Nitroglycerin 0.4 mg Q5MINP PRN SL 02/24/24 20:00 Morphine Sulfate 2 mg Q30M PRN IV 02/24/24 20:00 Furosemide 40 mg DAILY PO 02/25/24 10:00 02/25/24 10:02 40 MG Acetaminophen/ Hydrocodone Bitart 1 tab Q8HPRN PRN PO 02/25/24 18:00 Nystatin 1 applic BID TOP 02/25/24 22:00 02/26/24 10:25 1 APPLIC objective GENERAL: Awake, alert, oriented. Obese. LUNGS: Clear. CARDIOVASCULAR: Heart sounds are good. ABDOMEN: Soft. laboratory and microbiology Laboratory Tests 1/7/25 05:25 Test 02/26/24 05:25 Range/Units Serum Glucose 88 74-106 mg/dL Problem List Chest pain. Bradycardia. Acute on chronic systolic/diastolic congestive heart failure. Acute on chronic kidney disease. History of CVA with right-sided deficits. Morbidly obese. Assessment/Plan Continued all current supportive medical care. Stress test Cardiolite with a adenosine scheduled for tomorrow. Echocardiogram. Morphine and [place] for pain management. Aspirin, Lipitor, Plavix. Diuretics with Lasix. Additional plan as per the hospital course. Dietary Evaluation Review Comments: 1. Obtain an updates lipid profile, if elvated, consider a 2 gNa low fat and low cholesterol restriction. 2. restrict CCHO-60 for tight DM control. 3. Monitor PO intake to meet 75% of his needs Expected Outcomes/Goals: Gradual weight loss, improved lab values. healed wounds as a ressult of weight reduction and tight DM control Plan discussed with: Patient ROHINI ABARCA MD Feb 26, 2024 22:34
[2024-02-27] VITALS (7 sets, daily range): BP systolic 112; BP diastolic 39; PULSE 54–85; RESP 12–20; TEMP 98.5–98.7; O2SAT 95–100
[2024-02-27] MEDS: IPRATROPIUM BROM 0.5 MG/2.5ML INH SOL NEB PRN (00:24)
[2024-02-27] MEDS: ALBUTEROL SULF 2.5 MG/0.5ML(0.5%) NEB SOLN NEB PRN (00:24)
[2024-02-27] MEDS: HYDROcodone-ACET 5/325MG TAB PO PRN (00:58)
[2024-02-27] MEDS ORDERED: FUROSEMIDE 40 MG/4 ML VIAL IV ONE (03:00)
[2024-02-27] MEDS: FUROSEMIDE 40 MG TAB PO ONE (03:22)
[2024-02-27 05:10] LABS: Potassium 4.2 mmol/L (3.5-5.1); Sodium 144 mmol/L (136-145)
[2024-02-27] MEDS: REGADENOSON 0.4 MG/5 ML SYRG IV ONE ×2 (05:10)
[2024-02-27 05:11] LABS: Anion Gap 5 (5-15); Calcium 9.8 mg/dL (8.7-10.4); Carbon Dioxide 30 mmol/L (20-31)
[2024-02-27 05:13] LABS: Basophils # (auto) 0 10 ^3/uL (0-0.2); Basophils % (auto) 0.4 % (0.0-2.0); Eosinophils # (auto) 0.3 10 ^3/uL (0-0.8); Eosinophils % (auto) 4.4 % (0.0-7.0); Hematocrit 28.5 % (41.0-53.0); Hemoglobin 9.2 g/dL (13.5-17.5); Lymphocytes # (auto) 2.2 10 ^3/uL (0.4-5.4); Lymphocytes % (auto) 29.5 % (10.0-50.0); Mean Corpuscular Hemoglobin 30.9 pg (28.0-32.0); Mean Corpuscular Hgb Conc. 32.3 g/dL (32.0-36.0); Mean Corpuscular Volume 95.6 fL (80.0-100.0); Monocytes # (auto) 0.7 10 ^3/uL (0-1.3); Monocytes % (auto) 9.5 % (0.0-12.0); Neutrophils # (auto) 4.2 10 ^3/uL (1.6-8.6); Neutrophils % (auto) 56.2 % (37.0-80.0); Platelet Count (auto) 130 10^3/uL (140-450); Red Blood Cells 2.98 10^6/uL (4.5-5.90); Red Cell Distribution Width 16.8 % (11.8-14.3); White Blood Cell 7.4 10^3/uL (4.4-10.8)
[2024-02-27 05:16] LABS: BUN/Creatinine Ratio 18.6 (10.0-20.0)
[2024-02-27 05:27] LABS: Blood Urea Nitrogen 48 mg/dL (9-23); Chloride 109 mmol/L (98-107); Glucose 119 mg/dL (74-106)
--- NOTE | 2024-02-27 07:48 | DVHSR ---
APPROVED REPORT Exam: Nuclear Stress Test Indication: CHEST PAIN WITH SOB BMI: 0 Medical History Medical History: CKD, COPD, CVA, HF, CAD, Dyslipidemia, HTN Stress Test Details Stress Test: Pharmacologic stress testing performed using 0.4 mg of regadenoson per 5 mL given IV ov er 10 seconds. HR Resting HR: 54 bpmMax Heart Rate (APMHR): 150 bpm Max HR Achieved: 150 bpmTarget HR (85% APMHR): 128 bpm % of APMHR: 100 Recovery HR: 64 bpm BP Resting BP: 101/75 mmHg Recovery BP: 105/52 mmHg ECG Resting ECG: SEE BASELINE Clinical Reason for Termination: Completed protocol Stress ECG Conclusion Review of the myocardial perfusion images demonstrated a moderate-sized area of mild intensity reduce d radiotracer uptake in the mid and distal inferolateral wall that appears to be fully reversible bas ed on review of the resting images. Otherwise, there is homogeneous radiotracer uptake throughout th e rest of the left ventricular myocardium. Left ventricular volumes are normal. Ejection fraction i s normal and is estimated at 60%. There is no significant transient ischemic dilatation. No gated i mages are available to look for wall motion abnormalities. Impression: 1. Abnormal myocardial perfusion scan suggestive of ischemia in the inferolateral wall. 2. Normal left ventricular systolic function. NM EXAM: Myocardial Perfusion REST/STRESS Imaging Protocol: Rest Tc-99m/Stress Tc-99m 1 day Resting Data Rest SPECT myocardial perfusion imaging was performed in supine position 60 minutes following the int ravenous injection of 15 mCi of Tc-99m Sestamibi. Time of rest injection: 0730 Time of rest imagin Administration Route: IV Administration Site: Right Arm Pharmacologic Stress Pharmacologic stress test was performed by injecting Regadenoson 0.4 mg IV push followed by the intra venous injection of 38 mCi of Tc-99m Sestamibi. Time of stress injection: 854 Time of stress imagin Administration Route: IV Administration Site: Right Arm The images were gated to evaluate regional wall motion and calculate left ventricular ejection fracti on. Stress only was performed in the Supine position. Nuclear Conclusion ECG Findings: negative for ischemia Clinical Findings: negative for ischemia Nuclear Findings: positive for ischemia Exercise Capacity: not assessed Left Ventricular Function: normal Risk Study: moderate Review of the myocardial perfusion images demonstrated a moderate-sized area of mild intensity reduce d radiotracer uptake in the mid and distal inferolateral wall that appears to be fully reversible bas ed on review of the resting images. Otherwise, there is homogeneous radiotracer uptake throughout th e rest of the left ventricular myocardium. Left ventricular volumes are normal. Ejection fraction i s normal and is estimated at 60%. There is no significant transient ischemic dilatation. No gated i mages are available to look for wall motion abnormalities. Impression: 1. Abnormal myocardial perfusion scan suggestive of ischemia in the inferolateral wall. 2. Normal left ventricular systolic function.
--- NOTE | 2024-02-27 07:59 | DVHSR ---
APPROVED REPORT EXAM: Two-dimensional and M-mode echocardiogram with Doppler and color Doppler. Blood Pressure: 98/31 mmHg INDICATION Chest Pain RISK FACTORS Obesity: Height: 5'7", Weight: 300 DIMENSIONS LVDd5.0 (3.8-5.7cm)LA (2D)4.8 (1.9-4.0cm)Aortic Root3.5 (2.0-3.7cm) LVDs3.0 (2.5-4.0cm)LA (MM) (1.9-4.0cm)Aortic Cusp Exc0.9 (1.5-2.0cm) EF (%) 71.0 (55-70%)Rt. Atrium (1.9-4.0cm)Asc. Aorta4.0 cm IVSd1.7 (0.7-1.1cm)RV (D) (1.8-2.4cm) PWd1.4 (0.7-1.1cm) Mitral Valve MitralMitral Stenosis E wave0.74m/sMV Mean GR.mmHg A wave0.71m/sMV Peak GR.mmHg E/A ratio1.02D MVAcm2 DECEL [id number] 1/2 [place] Aortic Valve Aortic ValveAortic Stenosis V11.02m/No Mean GR.10mmHg V22.12m/No Peak GR.18mmHg LVOT Diameter2.4 (1.8-2.4cm)Doppler AVA2.18cm2 2D AVA2.12cm2 AI P 1/2 Azed251.20ms Pulmonic Valve V20.86m/s Other Information Quality : Technically LimitedRhythm : Technically limited study due to body habitus and patient position. Conclusion MODERATE DEGREE LVH MODERATE DEGREE LV DIASTOLIC DYSFUNCTION LV EJECTION FRACTION IS 70% MODERATELY DILATED LEFT ATRIUM VERY HEAVILY CALCIFIED AORTIC LEAFLETS IT IS AORTIC SCLEROSIS BUT NO STENOSIS NORMAL RV FUNCTION NO EFFUSION
[2024-02-27] MEDS: SODIUM CHLORIDE 0.9% 1,000 ML IV ONE (13:35)
--- NOTE | 2024-02-27 15:08 | DVHPN2 ---
Progress Note - Dictate Date Seen: Feb 27, 2024 Medical Necessity Reason Pt with a Central, PICC or Fol: No Subjective Patient was seen and evaluated in follow up. Patient complains of slight chest pain with SOB, he is on 3 LPM NC. Echocardiogram shows an EF of 70%. Stress test was abnormal myocardial perfusion scan suggestive of ischemia in the inferolateral wall. Normal left ventricular systolic function. HGB 9.2, HCT 28.5, CL 109, BUN 48, CONTINUOUS IMPROVEMENT SPECIALIST 2.58. vital signs Vital Sign Date Time Temp Pulse Resp B/P (MAP) Pulse Ox O2 Delivery O2 Flow Rate FiO2 02/27/24 12:00 54 19 110/54 (72) 99 02/27/24 08:00 Nasal Cannula* 3 32 02/27/24 08:00 98.5 98.5 Total Intake and Output 02/26/24 02/26/24 02/27/24 15:00 23:00 07:00 Output Total 500 ml 300 ml Balance -500 ml -300 ml medications Current Medications Medications Dose Ordered Sig/Yvette Route Start Time Stop Time Status Last Admin Dose Admin Clopidogrel Bisulfate 75 mg DAILY PO 02/25/24 10:00 02/27/24 09:57 75 MG Atorvastatin Calcium 80 mg HS PO 02/24/24 22:00 02/27/24 00:12 80 MG Aspirin 162 mg DAILY PO 02/25/24 10:00 02/27/24 09:57 162 MG Gabapentin 800 mg BID PO 02/24/24 22:00 02/27/24 09:57 800 MG Levetiracetam 500 mg BID PO 02/24/24 22:00 02/27/24 09:55 500 MG Ondansetron HCl 4 mg Q4HP PRN IV 02/24/24 20:00 Acetaminophen 650 mg Q6HP PRN PO 02/24/24 20:00 Nitroglycerin 0.4 mg Q5MINP PRN SL 02/24/24 20:00 Morphine Sulfate 2 mg Q30M PRN IV 02/24/24 20:00 Furosemide 40 mg DAILY PO 02/25/24 10:00 02/27/24 09:58 40 MG Acetaminophen/ Hydrocodone Bitart 1 tab Q8HPRN PRN PO 02/25/24 18:00 02/27/24 10:19 1 TAB Nystatin 1 applic BID TOP 02/25/24 22:00 02/27/24 09:58 1 APPLIC Albuterol 2.5 mg Q6HPRN PRN NEB 02/27/24 00:15 02/27/24 00:24 2.5 MG Ipratropium [place] 0.5 mg Q6HPRN PRN NEB 02/27/24 00:15 02/27/24 00:24 0.5 MG objective GENERAL: Awake, alert, oriented. Obese. LUNGS: Clear. CARDIOVASCULAR: Heart sounds are good. ABDOMEN: Soft. laboratory and microbiology Laboratory Tests 02/27/24 04:10 Test 02/27/24 04:10 Range/Units Serum Glucose 119 H 74-106 mg/dL Problem List Chest pain. Bradycardia. Acute on chronic systolic/diastolic congestive heart failure. Acute on chronic kidney disease. History of CVA with right-sided deficits. Morbidly obese. Assessment/Plan Continued all current supportive medical care. Morphine and [place] for pain management. Aspirin, Lipitor, Plavix. Diuretics with Lasix. Additional plan as per the hospital course. Dietary Evaluation Review Comments: 1. Obtain an updates lipid profile, if elvated, consider a 2 gNa low fat and low cholesterol restriction. 2. restrict CCHO-60 for tight DM control. 3. Monitor PO intake to meet 75% of his needs Expected Outcomes/Goals: Gradual weight loss, improved lab values. healed wounds as a ressult of weight reduction and tight DM control Plan discussed with: Patient ROHINI ABARCA MD Feb 27, 2024 13:43
--- NOTE | 2024-02-27 15:43 | DVHDSRES ---
Discharge Summary Date of Admission Resident Creating Document: DAYTON LARA RESIDENT Feb 24, 2024 at 19:49 Date of Discharge: Feb 27, 2024 Admitting Diagnosis chest pain rule out ACS sinus bradycardia Labs/Diagnostic Data: Laboratory Results Test 02/27/24 04:10 02/25/24 11:30 02/25/24 06:25 02/24/24 21:44 White Blood Count 7.4 10^3/uL (4.4-10.8) Red Blood Count 2.98 10^6/uL (4.5-5.90) Hemoglobin 9.2 g/dL (13.5-17.5) Hematocrit 28.5 % (41.0-53.0) Mean Corpuscular Volume 95.6 fL (80.0-100.0) Mean Corpuscular Hemoglobin 30.9 pg (28.0-32.0) Mean Corpuscular Hemoglobin Concent 32.3 g/dL (32.0-36.0) Red Cell Distribution Width 16.8 % (11.8-14.3) Platelet Count 130 10^3/uL (140-450) Mean Platelet Volume 11.5 fL (6.9-10.8) Neutrophils (%) (Auto) 56.2 % (37.0-80.0) Lymphocytes (%) (Auto) 29.5 % (10.0-50.0) Monocytes (%) (Auto) 9.5 % (0.0-12.0) Eosinophils (%) (Auto) 4.4 % (0.0-7.0) Basophils (%) (Auto) 0.4 % (0.0-2.0) Neutrophils # (Auto) 4.2 10 ^3/uL (1.6-8.6) Lymphocytes # (Auto) 2.2 10 ^3/uL (0.4-5.4) Monocytes # (Auto) 0.7 10 ^3/uL (0-1.3) Eosinophils # (Auto) 0.3 10 ^3/uL (0-0.8) Basophils # (Auto) 0 10 ^3/uL (0-0.2) Nucleated Red Blood Cells 0.0 % Sodium Level 144 mmol/L (136-145) Potassium Level 4.2 mmol/L (3.5-5.1) Chloride Level 109 mmol/L (98-107) Carbon Dioxide Level 30 mmol/L (20-31) Anion Gap 5 (5-15) Blood Urea Nitrogen 48 mg/dL (9-23) Creatinine 2.58 mg/dL (0.700-1.30) Glomerular Filtration Rate Calc 26 mL/min (>90) BUN/Creatinine Ratio 18.6 (10.0-20.0) Serum Glucose 119 mg/dL (74-106) Calcium Level 9.8 mg/dL (8.7-10.4) Influenza Type A Antigen Negative (Negative) Influenza Type B Antigen Negative (Negative) SARS-CoV-2 Antigen (Rapid) Negative (NEGATIVE) Hemoglobin A1c 5.1 % A1C (<5.7) Total Bilirubin 0.2 mg/dL (0.2-1.0) Aspartate Amino Transferase (AST) 32 U/L (13-40) Alanine Aminotransferase (ALT) 26 U/L (7-40) Alkaline Phosphatase 77 U/L (46-116) Total Protein 7.0 g/dL (5.7-8.2) Albumin 3.6 g/dL (3.2-4.8) Vitamin B12 Level 518 pg/mL (211-911) Vitamin D 25-Hydroxy 24.0 ng/mL (30.0-100) Thyroid Stimulating Hormone (TSH) 2.23 uIU/mL (0.55-4.78) Troponin I High Sensitivity 26 ng/L (</=54) Test 02/24/24 18:37 02/24/24 01:27 B-Type Natriuretic Peptide 223.72 pg/mL (0-100) Urine Color Light-yellow (Yellow) Urine Clarity Clear (Clear) Urine pH 5.0 (5.0-9.0) Urine Specific [place] 1.011 (1.001-1.035) Urine Protein Negative (Negative) Urine Ketones Negative (Negative) Urine Blood Negative /uL (Negative) Urine Nitrite Negative (Negative) Urine Bilirubin Negative (Negative) Urine Urobilinogen Normal mg/dL (Negative) Urine Leukocyte Esterase Negative /uL (Negative) Urine RBC None seen /hpf (0 - 3) Urine WBC 1 /hpf (0 - 3) Urine Squamous Epithelial Cells Few /hpf (<5) Urine Bacteria Few /hpf (None Seen) Urine Hyaline Casts Few /lpf (0 - 2) Urine Glucose Trace mg/dL (Normal) Other Laboratory Tests 02/27/24 04:10 Brief Hx & Hospital Course: Hospital Course: The patient is a 69-year-old male with a past medical history of chronic kidney disease, chronic obstructive pulmonary disease, cerebrovascular accident, heart failure, coronary artery disease, dyslipidemia, and hypertension, who presented to the hospital with a chief complaint of left-sided chest pain described as pressure-like, non-radiating, and associated with shortness of breath and dizziness. Upon arrival, the patient was hemodynamically stable but noted to have sinus bradycardia with a heart rate in the 40s-50s, systolic blood pressure in the 100s, and oxygen saturation of 92% on nasal cannula at 2 L/min. Initial workup included an EKG, which demonstrated sinus bradycardia without acute ischemic changes. Laboratory studies revealed an elevated baseline creatinine of 2.36 mg/dL and a BUN of 20.6 mg/dL, consistent with the patients known CKD. Troponin levels were within normal limits, ruling out acute coronary syndrome. Hemoglobin A1c and glucose levels were also normal. The patient reported chronic pain for which he was taking [place], and this was continued for pain control during the hospitalization. The cardiology team was consulted for evaluation of the chest pain and recommended a Cardiolite stress test with adenosine, which remains pending at discharge. An echocardiogram was also ordered but is pending results. No acute changes in cardiac function were noted during monitoring. During the hospital stay, the patients vital signs remained stable with heart rates between 55-62 bpm. There was no recurrence of chest pain or shortness of breath after admission. Oxygen supplementation was maintained with a nasal cannula at 2 L/min to achieve a target oxygen saturation of 92%. The patient was noted to have a chronic, non-healing wound on the left arm, which will require further outpatient evaluation but did not appear infected during hospitalization. The patient was evaluated by nephrology due to a slight increase in creatinine from 2.36 to 2.57 mg/dL during the hospital course. This was attributed to underlying CKD and possibly diuretic therapy. Close outpatient follow-up with nephrology was recommended to monitor renal function and adjust diuretic therapy as needed. At discharge, the patient was stable, with no acute complaints and improved symptoms. He was advised to continue prescribed medications, and follow up with cardiology for pending test results. Pain control with [place] was continued as needed. Further evaluation of his chronic wound and follow-up with his primary care physician and specialists were recommended to ensure ongoing management of his chronic conditions. Disposition: Patient stable for discharge to home. Case discussed with . Goals of care discussed with the patient for 29 minutes. Operations or Procedures [place] [id number] Ph: [phone] DIAGNOSTIC IMAGING Diagnostic Imaging Report : [id number] Signed PATIENT: NAVID SANCHEZ ACCT: [id number] UNIT: [id number] : 1955 LOC: ER ROOM / BED: / AGE / SEX: 69 / M ADM STATUS: REG ER SERVICE 1815 ORDERING PHYSICIAN: SVEN BUI MD PROCEDURE(s): CXRP - CHEST PORTABLE REASON: CP ORDER NUMBER(s): [id number], ACCESSION NUMBER(s): [id number] EXAM: XY CHEST PORTABLE TECHNIQUE: Single frontal chest radiograph CLINICAL HISTORY: CP COMPARISON: XY CHEST PORTABLE on DOS: 11/05/23, XY CHEST XRAY 1 VIEW on DOS: 07/04/23, XY CHEST XRAY 1 VIEW on DOS: 06/27/23 Findings/Impression: Frontal chest radiograph demonstrates no acute osseous or superficial soft tissue abnormalities. The trachea is midline. Cardiomegaly with pulmonar vascular congestion. No pneumothorax, pleural effusions, or consolidations. ATED BY: EVE GHOTRA DO DICTATED DATE/TIME: 02/24/241944 SIGNED BY: EVE GHOTRA DO SIGNED DATE/TIME: 02/24/241944 CC: [place] [id number] Ph: [phone] DIAGNOSTIC IMAGING Diagnostic Imaging Report : [id number] Signed PATIENT: NAVID SANCHEZ ACCT: [id number] UNIT: [id number] : 1955 LOC: TELE ROOM / BED: 1036-ERT / A AGE / SEX: 69 / M ADM STATUS: ADM IN SERVICE 0751 ORDERING PHYSICIAN: DAYTON LARA PROCEDURE(s): CWMM - CARDIOLITE MULTIPLE REASON: chest pain ORDER NUMBER(s): [id number], ACCESSION NUMBER(s): [id number] APPROVED REPORT Exam: Nuclear Stress Test Indication: CHEST PAIN WITH SOB BMI: 0 Medical History Medical History: CKD, COPD, CVA, HF, CAD, Dyslipidemia, HTN Stress Test Details Stress Test: Pharmacologic stress testing performed using 0.4 mg of regadenoson per 5 mL given IV over 10 seconds. HR Resting HR: 54 bpm Max Heart Rate (APMHR): 150 bpm Max HR Achieved: 150 bpm Target HR (85% APMHR): 128 bpm % of APMHR: 100 Recovery HR: 64 bpm BP Resting BP: 101/75 mmHg Recovery BP: 105/52 mmHg ECG Resting ECG: SEE BASELINE Clinical Reason for Termination: Completed protocol Stress ECG Conclusion Review of the myocardial perfusion images demonstrated a moderate-sized area of mild intensity reduced radiotracer uptake in the mid and distal inferolateral wall that appears to be fully reversible based on review of the resting images. Otherwise, there is homogeneous radiotracer uptake throughout the rest of the left ventricular myocardium. Left ventricular volumes are normal. Ejection fraction is normal and is estimated at 60%. There is no significant transient ischemic dilatation. No gated images are available to look for wall motion abnormalities. Impression: 1. Abnormal myocardial perfusion scan suggestive of ischemia in the inferolateral wall. 2. Normal left ventricular systolic function. NM EXAM: Myocardial Perfusion REST/STRESS Imaging Protocol: Rest Tc-99m/Stress Tc-99m 1 day Resting Data Rest SPECT myocardial perfusion imaging was performed in supine position 60 minutes following the intravenous injection of 15 mCi of Tc-99m Sestamibi. Time of rest injection: 0730 Time of rest imagin Administration Route: IV Administration Site: Right Arm Pharmacologic Stress Pharmacologic stress test was performed by injecting Regadenoson 0.4 mg IV push followed by the intravenous injection of 38 mCi of Tc-99m Sestamibi. Time of stress injection: 854 Time of stress imagin Administration Route: IV Administration Site: Right Arm The images were gated to evaluate regional wall motion and calculate left ventricular ejection fraction. Stress only was performed in the Supine position. Nuclear Conclusion ECG Findings: negative for ischemia Clinical Findings: negative for ischemia Nuclear Findings: positive for ischemia Exercise Capacity: not assessed Left Ventricular Function: normal Risk Study: moderate Review of the myocardial perfusion images demonstrated a moderate-sized area of mild intensity reduced radiotracer uptake in the mid and distal inferolateral wall that appears to be fully reversible based on review of the resting images. Otherwise, there is homogeneous radiotracer uptake throughout the rest of the left ventricular myocardium. Left ventricular volumes are normal. Ejection fraction is normal and is estimated at 60%. There is no significant transient ischemic dilatation. No gated images are available to look for wall motion abnormalities. Impression: 1. Abnormal myocardial perfusion scan suggestive of ischemia in the inferolateral wall. 2. Normal left ventricular systolic function. SIGNED BY: HITESH SULLIVAN MD SIGNED DATE/TIME: 02/27/24 2122 CC: Condition at Discharge: Fair Final Diagnosis/Problems List Acute chest pain likely symptomatic bradycardia Acute on chronic systolic/diastolic congestive heart failure Acute kidney injury on chronic kidney disease History of CVA with right-sided deficits Morbidly obese Discharge Disposition: Home SNF Discharge Will this Physician continue t: No Discharge Instruct/Medications Diet: Cardiac 2g Na,low cholest Activity: No Restrictions, As Tolerated Follow Up/Referral: Follow-up with atm mechanic (Dr. Montesinos) on this Sunday Follow with PCP within 2 weeks Medications: Script to pharmacy Discharge Statement: "Patient was advised to return to the ER or call 911 if any headaches, dizziness, shortness of breath, chest pain, abdominal pain, bleeding, fevers, or worsening of medical condition. Patient was counseled about treatment plan, medications, possible side effects, patientverbalized understanding. All questions were answered to the best of my ability. This discharge took greater then 30 minutes in planning, reviewing documentation, counseling the patient, and discussing with other team members." ASSESSMENT ASSESSMENT Assessment Acute chest pain likely symptomatic bradycardia Acute on chronic systolic/diastolic congestive heart failure Acute kidney injury on chronic kidney disease History of CVA with right-sided deficits Morbidly obese Date of Service: Feb 27, 2024 Billing Provider: DANIEL OLIVAREZ MD Common Visit Codes: 15651-LCT/OBS DISCH DAY >30min DAYTON LARA RESIDENT Feb 27, 2024 15:43 DANIEL OLIVAREZ MD Feb 27, 2024 20:25
--- NOTE | 2024-02-27 17:59 | DVHINCON2 ---
Date of service: Feb 27, 2024 Reason for Consultation bettie History of Present Illness 69 years old male with past medical history of Congestive heart failure, COPD, chronic hypoxic respiratory failure on 2 L nasal cannula, diabetes, Coronary artery disease, Chronic kidney disease, dyslipidemia, hypertension, morbid obdaniel cedeño presented with chief complaints of chest pain and chronic shortness of breath found to be bradycardic patient underwent stress test today he is also found to be hypotensive Past Medical History per hpi Past Surgical History per hpi Allergies: Coded Allergies: NO KNOWN ALLERGIES (Unverified , 10/04/22) Home Meds Active Scripts Ranolazine (Ranexa) 500 Mg Tab, 500 MG PO BID for 30 Days, #60 TAB Prov:JUSTIN DUARTE MD 10/22/18 Reported Medications Budesonide-Formoterol Fumarate (Budesonide/Formoterol Fum 160-4.5 Mcg/Act) 1 Aer Aer, 2 PUFF IN BID for 30 Days, #10.2 02/26/24 Midodrine HCl (Midodrine Hydrochloride) 5 Mg Tab, 1 TAB PO TID for 30 Days, #90 02/26/24 Potassium Chloride (Potassium Chloride ER) 10 Meq Tab, 1 TAB PO BID for 30 Days, #60 02/26/24 Furosemide (Furosemide) 40 Mg Tab, 0.5 TAB PO BID for 30 Days, #30 TAKE 1/2 TABLET (20 MG) BY MOUTH TWICE DAILY. 02/26/24 Aspirin (Aspirin Regular Strength) 325 Mg Tab, 1 TAB PO DAILY for 30 Days, #30 02/26/24 Lactulose (Lactulose) 10 Gm/15 Ml Rachna, 15 ML PO BID PRN for 15 Days, #473 02/26/24 Isosorbide Mononitrate (Isosorbide Mononitrate Er) 30 Mg Tab, 1 TAB PO DAILY for 30 Days, #30 02/26/24 Atorvastatin Calcium (Lipitor) 80 Mg Tab, 1 TAB PO DAILY for 30 Days, #30 02/26/24 Amlodipine Besylate (Amlodipine Besylate) 10 Mg Tab, 1 TAB PO DAILY for 30 Days, #30 02/26/24 Levetiracetam (Levetiracetam) 750 Mg Tab, 1 TAB PO BID for 30 Days, #60 02/26/24 Losartan Potassium (Losartan Potassium) 50 Mg Tab, 0.5 TAB PO DAILY for 30 Days, #15 TAKE 1/2 TABLET (25 MG) BY MOUTH DAILY. 02/26/24 Lidocaine (Lidocaine Topical Pain Pa) 4 % Pad, 1 PATCH TOP DAILY 06/28/23 Gabapentin (Gabapentin) 800 Mg Tab, 1 TAB PO BID for 30 Days, #60 06/28/23 Ipratropium-Albuterol (COMBIVENT RESPIMAT) Respimat Aer, 1 PUFF INH QID 05/14/23 Methocarbamol (Methocarbamol) 500 Mg Tab, 1.5 TAB PO Q8HR PRN for 8 Days, #40 05/14/23 Dapagliflozin Propanediol (Farxiga) 10 Mg Tab, 1 TAB PO DAILY for 30 Days, #30 05/14/23 Hydralazine Hcl (Hydralazine Hcl) 50 Mg Tab, 1 TAB PO TID PRN for 30 Days, #90 05/14/23 Beclomethasone Dipropionate (Qvar Redihaler) 80 Mcg/Act Aer, 1 PUFF INH BID for 30 Days, #10.6 02/27/23 Silver Sulfadiazine (Silver Sulfadiazine) 1 % Cre, 1 APPLIC TOP DAILY for 30 Days, #50 02/27/23 Oxybutynin Chloride (Ditropan Xl) 5 Mg Tab, 15 MG PO DAILY for 30 Days, #30 02/27/23 Trazodone Hcl (Trazodone Hcl) 100 Mg Tab, 4 TAB PO HS for 30 Days, #120 02/27/23 Metoprolol Succinate (Metoprolol Succinate Er) 25 Mg Tab, 1 TAB PO DAILY for 30 Days, #30 02/27/23 Clopidogrel Bisulfate (CLOPIDOGREL) 75 Mg Tab, 1 TAB PO DAILY for 30 Days, #30 02/07/23 Pantoprazole Sodium Sesquihydr (Pantoprazole Sodium) 40 Mg Tab, 1 TAB PO QAM 02/07/23 Bupropion Hcl (Bupropion Hcl) 75 Mg Tab, 2 TAB PO DAILY for 30 Days, #60 11/10/17 Discontinued Reported Medications Levetiracetam (Keppra) 500 Mg Tab, 1 TAB PO BID 05/14/23 Losartan Potassium (Losartan Potassium) 25 Mg Tab, 1 TAB PO DAILY 02/07/23 Current Medications Current Medications Medications (Trade) Dose Ordered Sig/Yvette Route PRN Reason Start Time Stop Time Status Last Admin Albuterol (Ventolin Medneb) 2.5 mg Q6HPRN PRN NEB SHORTNESS OF BREATH 02/27/24 00:15 02/27/24 00:24 Ipratropium [place] (Atrovent Medneb) 0.5 mg Q6HPRN PRN NEB SHORTNESS OF BREATH 02/27/24 00:15 02/27/24 00:24 Acetaminophen/ Hydrocodone Bitart ([place] 10/325MG Tab) 1 tab Q8HP PRN PO MODERATE PAIN (4-6 PAIN SCALE) 02/27/24 15:15 Family History: Alcoholism G8 MOTHER, Onset:Unknown Cancer G8 SISTER (uterine cancer) Cardiovascular disease G8 SISTER Cerebrovascular accident (CVA) G8 BROTHER Chronic obstructive pulmonary disease G8 SISTER Depression G8 SISTER Diabetes mellitus G8 SISTER G8 SISTER Family history: Cardiovascular disease Family history: Depression (situation) Family history: Hypertension Family history: Hypertension Glaucoma MATERNAL GPA Sepsis Stroke Stroke Review of Systems per hpi H&P Exam Vital Signs/I&O Vital Sign Date Time Temp Pulse Resp B/P (MAP) Pulse Ox O2 Delivery O2 Flow Rate FiO2 02/27/24 16:00 56 14 110/53 (72) 95 02/27/24 08:00 Nasal Cannula* 3 32 02/27/24 08:00 98.5 98.5 Intake and Output 02/26/24 02/27/24 19:00 07:00 Output Total 800 ml Balance -800 ml Output Urine Total 800 ml Physical Exam General-not in any distress HEENT-normocephalic, no icterus, no pallor, neck supple Respiratory-fair air entry bilateral, [id number] heard, no murmurs appreciated Abdominal-soft, nontender, nondistended Musculoskeletal-no pedal edema, no calf tenderness Genitourinary-deferred Neuro-awake alert oriented x3, Psychiatric-not agitated, cooperative, Labs/Diagnostic Data Labs/Diagnostic Data Laboratory Tests Test 02/27/24 04:10 02/26/24 05:25 02/25/24 11:30 02/25/24 06:25 Range/Units White Blood Count 7.4 7.7 8.5 # 4.4-10.8 10^3/uL Red Blood Count 2.98 L 3.28 L 3.20 L 4.5-5.90 10^6/uL Hemoglobin 9.2 L 10.2 L 10.1 L 13.5-17.5 g/dL Hematocrit 28.5 L 31.0 L 30.4 #L 41.0-53.0 % Mean Corpuscular Volume 95.6 94.8 94.8 80.0-100.0 fL Mean Corpuscular Hemoglobin 30.9 31.0 31.4 28.0-32.0 pg Mean Corpuscular Hemoglobin Concent 32.3 32.7 33.1 32.0-36.0 g/dL Red Cell Distribution Width 16.8 H 16.7 H 17.0 H 11.8-14.3 % Platelet Count 130 L 128 L 122 L 140-450 10^3/uL Mean Platelet Volume 11.5 H 10.9 H 11.2 H 6.9-10.8 fL Neutrophils (%) (Auto) 56.2 55.9 70.2 37.0-80.0 % Lymphocytes (%) (Auto) 29.5 30.6 17.1 10.0-50.0 % Monocytes (%) (Auto) 9.5 7.8 6.2 0.0-12.0 % Eosinophils (%) (Auto) 4.4 5.4 6.3 0.0-7.0 % Basophils (%) (Auto) 0.4 0.3 0.2 0.0-2.0 % Neutrophils # (Auto) 4.2 4.3 6.0 1.6-8.6 10 ^3/uL Lymphocytes # (Auto) 2.2 2.3 1.5 0.4-5.4 10 ^3/uL Monocytes # (Auto) 0.7 0.6 0.5 0-1.3 10 ^3/uL Eosinophils # (Auto) 0.3 0.4 0.5 0-0.8 10 ^3/uL Basophils # (Auto) 0 0 0 0-0.2 10 ^3/uL Nucleated Red Blood Cells 0.0 0.1 0.1 % Sodium Level 144 144 145 136-145 mmol/L Potassium Level 4.2 3.9 3.9 3.5-5.1 mmol/L Chloride Level 109 H 108 H 110 H 98-107 mmol/L Carbon Dioxide Level 30 30 29 20-31 mmol/L Anion Gap 5 6 6 5-15 Blood Urea Nitrogen 48 H 49 H 49 H 9-23 mg/dL Creatinine 2.58 H 2.57 H 2.36 H 0.700-1.30 mg/dL Glomerular Filtration Rate Calc 26 26 29 >90 mL/min BUN/Creatinine Ratio 18.6 19.1 20.8 H 10.0-20.0 Serum Glucose 119 H 88 104 74-106 mg/dL Calcium Level 9.8 10.0 9.9 8.7-10.4 mg/dL Influenza Type A Antigen Negative Negative Influenza Type B Antigen Negative Negative SARS-CoV-2 Antigen (Rapid) Negative NEGATIVE Hemoglobin A1c 5.1 <5.7 % A1C Total Bilirubin 0.2 0.2-1.0 mg/dL Aspartate Amino Transferase (AST) 32 13-40 U/L Alanine Aminotransferase (ALT) 26 7-40 U/L Alkaline Phosphatase 77 46-116 U/L Total Protein 7.0 5.7-8.2 g/dL Albumin 3.6 3.2-4.8 g/dL Vitamin B12 Level 518 211-911 pg/mL Vitamin D 25-Hydroxy 24.0 L 30.0-100 ng/mL Thyroid Stimulating Hormone (TSH) 2.23 0.55-4.78 uIU/mL Test 02/24/24 21:44 02/24/24 19:50 02/24/24 18:37 02/24/24 01:27 Range/Units Troponin I High Sensitivity 26 24 26 </=54 ng/L White Blood Count 5.8 4.4-10.8 10^3/uL Red Blood Count 3.79 L 4.5-5.90 10^6/uL Hemoglobin 11.7 L 13.5-17.5 g/dL Hematocrit 37.1 L 41.0-53.0 % Mean Corpuscular Volume 97.9 80.0-100.0 fL Mean Corpuscular Hemoglobin 31.0 28.0-32.0 pg Mean Corpuscular Hemoglobin Concent 31.7 L 32.0-36.0 g/dL Red Cell Distribution Width 17.4 H 11.8-14.3 % Platelet Count 110 L 140-450 10^3/uL Mean Platelet Volume 10.9 H 6.9-10.8 fL Neutrophils (%) (Auto) 51.8 37.0-80.0 % Lymphocytes (%) (Auto) 29.9 10.0-50.0 % Monocytes (%) (Auto) 9.4 0.0-12.0 % Eosinophils (%) (Auto) 8.1 H 0.0-7.0 % Basophils (%) (Auto) 0.8 0.0-2.0 % Neutrophils # (Auto) 3.0 1.6-8.6 10 ^3/uL Lymphocytes # (Auto) 1.7 0.4-5.4 10 ^3/uL Monocytes # (Auto) 0.5 0-1.3 10 ^3/uL Eosinophils # (Auto) 0.5 0-0.8 10 ^3/uL Basophils # (Auto) 0 0-0.2 10 ^3/uL Nucleated Red Blood Cells 0.2 % Sodium Level 145 136-145 mmol/L Potassium Level 3.7 3.5-5.1 mmol/L Chloride Level 110 H 98-107 mmol/L Carbon Dioxide Level 30 20-31 mmol/L Anion Gap 5 5-15 Blood Urea Nitrogen 45 H 9-23 mg/dL Creatinine 2.40 H 0.700-1.30 mg/dL Glomerular Filtration Rate Calc 28 >90 mL/min BUN/Creatinine Ratio 18.8 10.0-20.0 Serum Glucose 101 74-106 mg/dL Calcium Level 10.0 8.7-10.4 mg/dL B-Type Natriuretic Peptide 223.72 0-100 pg/mL Urine Color Light-yellow Yellow Urine Clarity Clear Clear Urine pH 5.0 5.0-9.0 Urine Specific [place] 1.011 1.001-1.035 Urine Protein Negative Negative Urine Ketones Negative Negative Urine Blood Negative Negative /uL Urine Nitrite Negative Negative Urine Bilirubin Negative Negative Urine Urobilinogen Normal Negative mg/dL Urine Leukocyte Esterase Negative Negative /uL Urine RBC None seen 0 - 3 /hpf Urine WBC 1 0 - 3 /hpf Urine Squamous Epithelial Cells Few <5 /hpf Urine Bacteria Few H None Seen /hpf Urine Hyaline Casts Few 0 - 2 /lpf Urine Glucose Trace Normal mg/dL Assessment Acute kidney injury likely secondary to hypotension Chronic respiratory failure on home O2 2 L Morbid obesity Recommendations IV fluids 1 L We will follow closely Plan discussed with: Patient TOMMY HAMMER MD Feb 27, 2024 17:59
[2024-02-27] MEDS: HYDROcodone-ACET 10/325MG TAB PO PRN (18:07)
[2024-02-28 00:06] VITALS: PULSE 58; RESP 16; O2SAT 98
--- NOTE | 2024-02-28 05:24 | DVHOP ---
DATE OF SURGERY: 02/26/2024 TECHNIQUE PERFORMED: Myocardial perfusion scan studies. The patient has underlying cardiac symptoms. The patient underwent intravenous adenosine Cardiolite stress test in standard manner. Initially, we have done the resting scan by giving intravenous technetium-99m sestamibi. With the help of the SPECT camera different images of the left ventricle were obtained, which include long axis, short axis and horizontal axis views. Subsequently patient was given intravenous adenosine in a standard manner followed by intravenous technetium-99m sestamibi and subsequently the stress images also had been done. Subsequently, stress and rest images both have been compared. EKG stress test also done at the same time. INFORMATION: * There is a normal perfusion of the anterior wall, lateral wall, inferoposterior wall of the left ventricle in pre and post stress images. * Ejection fraction of 60%. * The baseline EKG reveals normal sinus rhythm, left anterior hemiblock and clockwise rotation of the heart. No ischemia. CONCLUSION: This is a normal study. No evidence of perfusion defect. EKG stress test is also normal. Dory Montesinos MD MP/LUANA TID: [id number] RECEIPT: [id number] [facility]
[2024-02-28 06:56] VITALS: O2SAT 94
[2024-02-28 07:30] VITALS: PULSE 59; RESP 16; O2SAT 98
[2024-02-28 10:00] VITALS: BP 113/61; PULSE 52; RESP 16; O2SAT 95
--- NOTE | 2024-02-28 12:23 | DVHPNRES ---
Progress Note Date Seen: Feb 28, 2024 Resident Creating Document: DAYTON LARA RESIDENT Medical Necessity Reason Pt with a Central, PICC or Fol: No Subjective Review of Systems 69-year-old male patient with past medical history of chronic kidney disease, COPD, cerebrovascular accident, heart failure, coronary artery disease, dyslipidemia hypertension who was brought to the hospital with a chief complaint of left-sided chest pain described as pressure-like, nonradiating associated with shortness of breaths, dizziness. There is a normal perfusion of the anterior wall, lateral wall, - inferoposterior wall of the left ventricle in pre and post stress images. - Ejection fraction of 60%. - The baseline EKG reveals normal sinus rhythm, left anterior hemiblock and clockwise rotation of the heart. No ischemia. Patient discharge was delayed because of issues with the transportation yesterday. Patient was discharged safety today. Follow-up with cardiology and primary care within 1-2 weeks. Case discussed with Dr. Callahan Goals of care discussed with the patient for 31 minutes. Code status: Full code Patient reports: Feels better Changes from previous H/P or p: Changes Objective vital signs Vital Sign Date Time Temp Pulse Resp B/P (MAP) Pulse Ox O2 Delivery O2 Flow Rate FiO2 02/28/24 10:02 113/61 02/28/24 10:00 52 16 95 02/28/24 07:30 Room Air* 0 21 02/27/24 08:00 98.5 98.5 medications Current Medications Medications Dose Ordered Sig/Yvette Route Start Time Stop Time Status Last Admin Dose Admin Clopidogrel Bisulfate 75 mg DAILY PO 02/25/24 10:00 02/28/24 10:02 75 MG Atorvastatin Calcium 80 mg HS PO 02/24/24 22:00 02/27/24 21:53 80 MG Aspirin 162 mg DAILY PO 02/25/24 10:00 02/28/24 10:01 162 MG Gabapentin 800 mg BID PO 02/24/24 22:00 02/28/24 10:02 800 MG Levetiracetam 500 mg BID PO 02/24/24 22:00 02/28/24 10:01 500 MG Ondansetron HCl 4 mg Q4HP PRN IV 02/24/24 20:00 Nitroglycerin 0.4 mg Q5MINP PRN SL 02/24/24 20:00 Morphine Sulfate 2 mg Q30M PRN IV 02/24/24 20:00 Furosemide 40 mg DAILY PO 02/25/24 10:00 02/28/24 10:02 40 MG Nystatin 1 applic BID TOP 02/25/24 22:00 02/28/24 10:16 1 APPLIC Albuterol 2.5 mg Q6HPRN PRN NEB 02/27/24 00:15 02/27/24 20:01 2.5 MG Ipratropium [place] 0.5 mg Q6HPRN PRN NEB 02/27/24 00:15 02/27/24 20:01 0.5 MG Acetaminophen/ Hydrocodone Bitart 1 tab Q8HP PRN PO 02/27/24 15:15 02/28/24 08:30 1 TAB Examination Examination General Appearance: Alert, Oriented X3, Cooperative, No acute distress HEENT: EOMI Respiratory: Clear to auscultation, Normal air movement Cardiovascular: Bradycardia, Normal S1, Normal S2 Abdominal: Normal bowel sounds Extremities: No cyanosis, No edema, Normal pulses, No tenderness/swelling Skin: No rashes, No breakdown Neuro: Normal speech, Strength at 5/5 X4 ext, Normal tone, Sensation intact, Cranial nerves 3-12 NL, Reflexes 2+ laboratory and microbiology Laboratory Tests 02/27/24 04:10 Test 02/27/24 04:10 Range/Units Serum Glucose 119 H 74-106 mg/dL Problem List/Assessment/Plan Problem List/Assessment/Plan Acute chest pain likely symptomatic bradycardia Acute chest pain, ruled out ACS Cardiac scan test ruled out ACS. Follow up with Cardiology in the outpatient Acute on chronic systolic/diastolic congestive heart failure -follow up with Cardiology in the outpatient. Acute kidney injury on chronic kidney disease , likely due to hypotension -follow up with PCP in the outpatient, consider Nephrology referral. History of CVA with right-sided deficits Morbidly obese -lifestyle modification counseling, dietary modification counseling Case discussed with Dr. 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 Obtain an updates lipid profile, if elvated, consider a 2 gNa low fat and low cholesterol restriction. 2. restrict CCHO-60 for tight DM control. 3. Monitor PO intake to meet 75% of his needs Expected Outcomes/Goals: Gradual weight loss, improved lab values. healed wounds as a ressult of weight reduction and tight DM control Date of Service: Feb 28, 2024 Billing Provider: DANIEL CALLAHAN MD Common Visit Codes: [id number] INP/OBS CARE(HIGH) DAYTON LARA RESIDENT Feb 28, 2024 12:23 DANIEL CALLAHAN MD Feb 28, 2024 18:59
[2024-02-28] MEDS ORDERED: HYDR-4902 PO (13:09)
--- NOTE | 2024-02-28 13:22 | DVHPN2 ---
Progress Note Date Seen: Feb 28, 2024 Medical Necessity Reason Pt with a Central, PICC or Fol: No Subjective Patient reports: No new complaints Review of Systems: Deferred Objective vital signs Vital Sign Date Time Temp Pulse Resp B/P (MAP) Pulse Ox O2 Delivery O2 Flow Rate FiO2 02/28/24 10:02 113/61 02/28/24 10:00 52 16 95 02/28/24 07:30 Room Air* 0 21 02/27/24 08:00 98.5 98.5 medications Current Medications Medications Dose Ordered Sig/Yvette Route Start Time Stop Time Status Last Admin Dose Admin Clopidogrel Bisulfate 75 mg DAILY PO 02/25/24 10:00 02/28/24 10:02 75 MG Atorvastatin Calcium 80 mg HS PO 02/24/24 22:00 02/27/24 21:53 80 MG Aspirin 162 mg DAILY PO 02/25/24 10:00 02/28/24 10:01 162 MG Gabapentin 800 mg BID PO 02/24/24 22:00 02/28/24 10:02 800 MG Levetiracetam 500 mg BID PO 02/24/24 22:00 02/28/24 10:01 500 MG Ondansetron HCl 4 mg Q4HP PRN IV 02/24/24 20:00 Nitroglycerin 0.4 mg Q5MINP PRN SL 02/24/24 20:00 Morphine Sulfate 2 mg Q30M PRN IV 02/24/24 20:00 Furosemide 40 mg DAILY PO 02/25/24 10:00 02/28/24 10:02 40 MG Nystatin 1 applic BID TOP 02/25/24 22:00 02/28/24 10:16 1 APPLIC Albuterol 2.5 mg Q6HPRN PRN NEB 02/27/24 00:15 02/27/24 20:01 2.5 MG Ipratropium [place] 0.5 mg Q6HPRN PRN NEB 02/27/24 00:15 02/27/24 20:01 0.5 MG Acetaminophen/ Hydrocodone Bitart 1 tab Q8HP PRN PO 02/27/24 15:15 02/28/24 08:30 1 TAB Examination: GENERAL:Normal, LUNGS:Abnormal, MSK:Abnormal, NEURO:Normal laboratory and microbiology Laboratory Tests 02/27/24 04:10 Test 02/27/24 04:10 Range/Units Serum Glucose 119 H 74-106 mg/dL Problem List/Assessment/Plan Problem List/Assessment/Plan Acute kidney injury likely secondary to hypotension Chronic respiratory failure on home O2 2 L Morbid obesity recs s/p ivf 1 liter labs in AM UA wnl kidney us Plan discussed with: Patient Dietary Evaluation Review Comments: 1. Obtain an updates lipid profile, if elvated, consider a 2 gNa low fat and low cholesterol restriction. 2. restrict CCHO-60 for tight DM control. 3. Monitor PO intake to meet 75% of his needs Expected Outcomes/Goals: Gradual weight loss, improved lab values. healed wounds as a ressult of weight reduction and tight DM control TOMMY HAMMER MD Feb 28, 2024 13:22
--- NOTE | 2024-02-28 21:33 | DVHPN2 ---
Progress Note - Dictate Date Seen: Feb 28, 2024 Medical Necessity Reason Pt with a Central, PICC or Fol: No Subjective Patient was seen and evaluated in follow up. Patient has no new complaints at this time. Patient denies any cardiac symptoms. Patient is cardiac stable for discharge. vital signs Vital Sign Date Time Temp Pulse Resp B/P (MAP) Pulse Ox O2 Delivery O2 Flow Rate FiO2 02/28/24 10:02 113/61 02/28/24 10:00 52 16 95 02/28/24 07:30 Room Air* 0 21 02/27/24 08:00 98.5 98.5 medications Current Medications Medications Dose Ordered Sig/Yvette Route Start Time Stop Time Status Last Admin Dose Admin Clopidogrel Bisulfate 75 mg DAILY PO 02/25/24 10:00 02/28/24 10:02 75 MG Atorvastatin Calcium 80 mg HS PO 02/24/24 22:00 02/27/24 21:53 80 MG Aspirin 162 mg DAILY PO 02/25/24 10:00 02/28/24 10:01 162 MG Gabapentin 800 mg BID PO 02/24/24 22:00 02/28/24 10:02 800 MG Levetiracetam 500 mg BID PO 02/24/24 22:00 02/28/24 10:01 500 MG Ondansetron HCl 4 mg Q4HP PRN IV 02/24/24 20:00 Nitroglycerin 0.4 mg Q5MINP PRN SL 02/24/24 20:00 Morphine Sulfate 2 mg Q30M PRN IV 02/24/24 20:00 Furosemide 40 mg DAILY PO 02/25/24 10:00 02/28/24 10:02 40 MG Nystatin 1 applic BID TOP 02/25/24 22:00 02/28/24 10:16 1 APPLIC Albuterol 2.5 mg Q6HPRN PRN NEB 02/27/24 00:15 02/27/24 20:01 2.5 MG Ipratropium [place] 0.5 mg Q6HPRN PRN NEB 02/27/24 00:15 02/27/24 20:01 0.5 MG Acetaminophen/ Hydrocodone Bitart 1 tab Q8HP PRN PO 02/27/24 15:15 02/28/24 08:30 1 TAB objective GENERAL: Awake, alert, oriented. Obese. LUNGS: Clear. CARDIOVASCULAR: Heart sounds are good. ABDOMEN: Soft. laboratory and microbiology Laboratory Tests 02/27/24 04:10 Test 02/27/24 04:10 Range/Units Serum Glucose 119 H 74-106 mg/dL Problem List Chest pain. Bradycardia. Acute on chronic systolic/diastolic congestive heart failure. Acute on chronic kidney disease. History of CVA with right-sided deficits. Morbidly obese. Assessment/Plan Continued all current supportive medical care. Morphine and [place] for pain management. Aspirin, Lipitor, Plavix. Diuretics with Lasix. Additional plan as per the hospital course. Dietary Evaluation Review Comments: 1. Obtain an updates lipid profile, if elvated, consider a 2 gNa low fat and low cholesterol restriction. 2. restrict CCHO-60 for tight DM control. 3. Monitor PO intake to meet 75% of his needs Expected Outcomes/Goals: Gradual weight loss, improved lab values. healed wounds as a ressult of weight reduction and tight DM control Plan discussed with: Patient ROHINI ABARCA MD Feb 28, 2024 13:39
== END 2024-02-28 11:33 | disposition home or self-care (01) | DRG 291 ==
LOC: ER 17:34 → EDBD 17:34 → TELE 19:49 → UNDODEPER 02-27 17:53
PROVIDERS: ADMIT Internal Medicine Geriatric Medicine; ATTEND Emergency Medicine
DX: I13.0 Hypertensive heart and chronic kidney disease with heart failure and stage 1 through stage 4 chronic kidney disease, or unspecified chronic kidney disease (principal); I50.43 Acute on chronic combined systolic (congestive) and diastolic (congestive) heart failure; N17.9 Acute kidney failure, unspecified; Z68.42 Body mass index [BMI] 45.0-49.9, adult; I69.351 Hemiplegia and hemiparesis following cerebral infarction affecting right dominant side; Z20.822 Contact with and (suspected) exposure to COVID-19; E11.22 Type 2 diabetes mellitus with diabetic chronic kidney disease; E66.01 Morbid (severe) obesity due to excess calories; I95.9 Hypotension, unspecified; E78.5 Hyperlipidemia, unspecified; F17.210 Nicotine dependence, cigarettes, uncomplicated; I25.10 Atherosclerotic heart disease of native coronary artery without angina pectoris; J44.89 Other specified chronic obstructive pulmonary disease; N18.9 Chronic kidney disease, unspecified; R00.1 Bradycardia, unspecified; K21.9 Gastro-esophageal reflux disease without esophagitis; F32.A Depression, unspecified; F41.9 Anxiety disorder, unspecified; Z82.3 Family history of stroke; Z81.8 Family history of other mental and behavioral disorders; Z79.82 Long term (current) use of aspirin; Z79.899 Other long term (current) drug therapy; Z90.49 Acquired absence of other specified parts of digestive tract; Z82.49 Family history of ischemic heart disease and other diseases of the circulatory system; Z82.5 Family history of asthma and other chronic lower respiratory diseases; Z83.3 Family history of diabetes mellitus; Z99.81 Dependence on supplemental oxygen
CPT/HCPCS: 36415; 71045; 78452; 80048; 80053; 81001; 82306; 82607; 83036; 83880; 84443; 84484; 85025; 87426; 87804; 93005; 93017; 93306; 94640; 99291; G0378; J2405

== ENCOUNTER 2024-05-05 06:05 | Inpatient (IN) | payer BC, OTHER ==
[~2024-05-05] VITALS: Ht 172.7 cm; Wt 146.9 kg
[~2024-05-05 06:05] MED LIST changes: -AML5T PO; -ASPI-378 PO; -ATOR20TA50 PO; +BUDE1AER4 IN; -BUME2TAB5 PO; +HYDR-4902 PO; -LEVE500T40 PO; -LOS25T PO; -OXYC325T14 PO
[2024-05-05 06:40] VITALS: PULSE 76; RESP 16; O2SAT 94
--- NOTE | 2024-05-05 06:51 | ED.PDOC ---
History of Present Illness HPI Comments 69M who is a frequent flyer was BIBA w/ primary Hx of Asthma, CHF, COPD, IN, HTN, Pacemaker which all may be associated to the c/c of CP. EMS report that that the pt was recently discharged from [facility] this morning, and when the pt arrived at home he had a sudden onset of CP. EMS states that the pt started to have 10/10 center CP which radiates down the the left arm. Looking through prior visits, pt was recently here on 02/24/24 for CP as well. PMHx of Angina, Anxiety, CAD, CKF, CVA, Depression, DM, GERD, High Lipids, Liver, MRSA, TIA and UTI. SHx of Appendectomy, Cholecystectomy, PTCA and Thyroidectomy. Denies chills, fever, N/V/D, SOB or no other associated symptom's, modifiers, recent injuries or sick contacts at this time. Chief Complaint: Chest Pain Time Seen by MD: 06:30 Primary Care Provider: unknown Reviewed Notes: Nurses Notes, Enamel Drier Notes, Medications, Allergies Allergies: Coded Allergies: NO KNOWN ALLERGIES (Unverified , 10/04/22) Home Meds Active Scripts Hydrocodone-Acetaminophen (Hydrocodone Bitartrate/AC 5-325 mg) 1 Tab Tab, 1 TAB PO Q6HP PRN, #15 TAB Prov:DANIEL OLIVAREZ MD 02/28/24 Ranolazine (Ranexa) 500 Mg Tab, 500 MG PO BID for 30 Days, #60 TAB Prov:JUSTIN DUARTE MD 10/22/18 Reported Medications Budesonide-Formoterol Fumarate (Budesonide/Formoterol Fum 160-4.5 Mcg/Act) 1 Aer Aer, 2 PUFF IN BID for 30 Days, #10.2 02/26/24 Midodrine HCl (Midodrine Hydrochloride) 5 Mg Tab, 1 TAB PO TID for 30 Days, #90 02/26/24 Potassium Chloride (Potassium Chloride ER) 10 Meq Tab, 1 TAB PO BID for 30 Days, #60 02/26/24 Furosemide (Furosemide) 40 Mg Tab, 0.5 TAB PO BID for 30 Days, #30 TAKE 1/2 TABLET (20 MG) BY MOUTH TWICE DAILY. 02/26/24 Aspirin (Aspirin Regular Strength) 325 Mg Tab, 1 TAB PO DAILY for 30 Days, #30 02/26/24 Lactulose (Lactulose) 10 Gm/15 Ml Rachna, 15 ML PO BID PRN for 15 Days, #473 02/26/24 Isosorbide Mononitrate (Isosorbide Mononitrate Er) 30 Mg Tab, 1 TAB PO DAILY for 30 Days, #30 02/26/24 Atorvastatin Calcium (Lipitor) 80 Mg Tab, 1 TAB PO DAILY for 30 Days, #30 02/26/24 Amlodipine Besylate (Amlodipine Besylate) 10 Mg Tab, 1 TAB PO DAILY for 30 Days, #30 02/26/24 Levetiracetam (Levetiracetam) 750 Mg Tab, 1 TAB PO BID for 30 Days, #60 02/26/24 Losartan Potassium (Losartan Potassium) 50 Mg Tab, 0.5 TAB PO DAILY for 30 Days, #15 TAKE 1/2 TABLET (25 MG) BY MOUTH DAILY. 02/26/24 Lidocaine (Lidocaine Topical Pain Pa) 4 % Pad, 1 PATCH TOP DAILY 06/28/23 Gabapentin (Gabapentin) 800 Mg Tab, 1 TAB PO BID for 30 Days, #60 06/28/23 Ipratropium-Albuterol (COMBIVENT RESPIMAT) Respimat Aer, 1 PUFF INH QID 05/14/23 Methocarbamol (Methocarbamol) 500 Mg Tab, 1.5 TAB PO Q8HR PRN for 8 Days, #40 05/14/23 Dapagliflozin Propanediol (Farxiga) 10 Mg Tab, 1 TAB PO DAILY for 30 Days, #30 05/14/23 Hydralazine Hcl (Hydralazine Hcl) 50 Mg Tab, 1 TAB PO TID PRN for 30 Days, #90 05/14/23 Beclomethasone Dipropionate (Qvar Redihaler) 80 Mcg/Act Aer, 1 PUFF INH BID for 30 Days, #10.6 02/27/23 Silver Sulfadiazine (Silver Sulfadiazine) 1 % Cre, 1 APPLIC TOP DAILY for 30 Days, #50 02/27/23 Oxybutynin Chloride (Ditropan Xl) 5 Mg Tab, 15 MG PO DAILY for 30 Days, #30 02/27/23 Trazodone Hcl (Trazodone Hcl) 100 Mg Tab, 4 TAB PO HS for 30 Days, #120 02/27/23 Metoprolol Succinate (Metoprolol Succinate Er) 25 Mg Tab, 1 TAB PO DAILY for 30 Days, #30 02/27/23 Clopidogrel Bisulfate (CLOPIDOGREL) 75 Mg Tab, 1 TAB PO DAILY for 30 Days, #30 02/07/23 Pantoprazole Sodium Sesquihydr (Pantoprazole Sodium) 40 Mg Tab, 1 TAB PO QAM 02/07/23 Bupropion Hcl (Bupropion Hcl) 75 Mg Tab, 2 TAB PO DAILY for 30 Days, #60 11/10/17 Information Source: Patient, Emergency Med Personnel Mode of Arrival: EMS Severity: Moderate Timing: Hours Duration: Since onset, Hours 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 Past Medical History PAST MEDICAL HISTORY: Angina, Anxiety, Asthma, CAD, CHF, CKF, COPD, CVA, Depre ssion, DM, GERD, High Lipids, HTN, Liver, IN, MRSA, TIA, UTI'S Surgical History: Appendectomy, Cholecystectomy, PTCA, Thyroidectomy Surgical History (Other): Pacemaker Family History Family History: Reviewed,noncontributory to illness, Unknown Social History Smoker: Unknown Alcohol: Unknown Drugs: Unknown Lives In: Home Constitutional: denies: chills, diaphoresis, fatigue, fever, malaise, sweats, weakness, others EENTM: denies: blurred vision, double vision, ear bleeding, ear discharge, ear drainage, ear pain, ear ringing, eye pain, eye redness, hearing loss, mouth pain, mouth swelling, nasal discharge, nose bleeding, nose congestion, nose pain, photophobia, tearing, throat pain, throat swelling, voice changes, others Respiratory: denies: cough, hemoptysis, orthopnea, SOB at rest, shortness of breath, SOB with excertion, stridor, wheezing, others Cardiovascular: reports: chest pain, left arm pain; denies: dizzy spells, diaphoresis, Dyspnea on exertion, edema, irregular heart beat, lightheadedness, palpitations, PND, syncope, others Gastrointestinal: denies: abdomen distended, abdominal pain, blood streaked bowels, constipated, diarrhea, dysphagia, difficulty swallowing, hematemesis, me dianne, nausea, poor appetite, poor fluid intake, rectal bleeding, rectal pain, vomiting, others Genitourinary: denies: burning, dysuria, flank pain, frequency, hematuria, incontinence, penile discharge, penile sore, pain, testicle pain, testicle swelling, urgency, others Neurological: denies: dizziness, fainting, headache, left sided numbness, left sided weakness, numbness, paresthesia, pre-existing deficit, right sided numbness, right sided weakness, seizure, speech problems, tingling, tremors, weakness, others Musculoskeletal: denies: back pain, gout, joint pain, joint swelling, muscle pain, muscle stiffness, neck pain, others Integumetry: denies: bruises, change in color, change in hair/nails, dryness, laceration, lesions, lumps, rash, wounds, others Allergic/Immunocompromised: denies: Difficulty Healing, Frequent Infections, Hives, Itching, others Hematologic/Lymphatic: denies: anemia, blood clots, easy bleeding, easy bruising, swollen glands, others Endocrine: denies: excessive hunger, excessive sweating, excessive thirst, excessive urination, flushing, intolerance to cold, intolerance to heat, unexplained weight gain, unexplained weight loss, others Psychiatric: denies: anxiety, bipolar disorder, depression, hopeless, panic disorder, schizophrenia, sleepless, suicidal, others All Other Systems: Reviewed and Negative Physical Exam General Appearance: Moderate Distress, Normal HEENT: Normal ENT Inspection, Pharynx Normal, TMs Normal Neck: Full Range of Motion, Non-Tender, Normal, Normal Inspection Respiratory: Chest Non-Tender, Lungs Clear, No Accessory Muscle Use, No Respiratory Distress, Normal Breath Sounds Cardiovascular: No Edema, No JVD, No Murmur, No Gallop, Normal Peripheral Pulses, Other (Paced) Breast Exam: Deferred Gastrointestinal: No Organomegaly, Non Tender, No Pulsatile Mass, Normal Bowel Sounds, Soft Genitalia: Deferred Pelvic: Deferred Rectal: Deferred Extremities: Decreased range of motion, No calf tenderness, Normal capillary refill, Pedal edema Musculoskeletal : Apperance: Normal Neurologic: Alert, abrading machine tender II-XII nml as Tested, No Motor Deficits, Normal Affect, Normal Mood, No Sensory Deficits Cerebellar Function: NOT DONE Reflexes: NOT DONE Skin: Dry, Normal Color, Warm Peripheral Pulses: 3+ Radial (R), 3+ Radial (L) Lymphatic: No Adenopathy Was a procedure done? Was a procedure done?: No Differential Dx Considerations may include: Angina Electrolyte imbalance X-Ray, Labs, Meds, VS Vital Signs Date Time Temp Pulse Resp B/P (MAP) Pulse Ox O2 Delivery O2 Flow Rate FiO2 05/05/24 09:39 71 05/05/24 09:30 98.3 97 12 110/64 (79) 96 98.3 05/05/24 07:30 72 12 94 Room Air* 0 21 05/05/24 06:40 76 16 94 Room Air* 0 21 05/05/24 06:40 98.8 76 16 105/72 (83) 74 98.8 05/05/24 06:10 97.3 98 24 113/72 (86) 98 97.3 05/05/24 06:07 58 Lab Test 05/05/24 09:02 05/05/24 08:00 05/05/24 07:25 Range/Units POC Glucose 107 H 70-106 mg/dl Urine Color Light-yellow Yellow Urine Clarity Clear Clear Urine pH 5.0 5.0-9.0 Urine Specific [place] 1.013 1.001-1.035 Urine Protein Negative Negative Urine Ketones Negative Negative Urine Blood Negative Negative /uL Urine Nitrite Negative Negative Urine Bilirubin Negative Negative Urine Urobilinogen Normal Negative mg/dL Urine Leukocyte Esterase Negative Negative /uL Urine RBC <1 0 - 3 /hpf Urine Microscopic WBC < 1 0-3 /HPF Urine Squamous Epithelial Cells None seen <5 /hpf Urine Bacteria None seen None Seen /hpf Urine Hyaline Casts Mod 0 - 2 /lpf Urine Glucose 2+ H Normal mg/dL White Blood Count 7.4 4.4-10.8 10^3/uL Red Blood Count 3.42 L 4.5-5.90 10^6/uL Hemoglobin 10.8 L 13.5-17.5 g/dL Hematocrit 32.5 L 41.0-53.0 % Mean Corpuscular Volume 95.1 80.0-100.0 fL Mean Corpuscular Hemoglobin 31.5 28.0-32.0 pg Mean Corpuscular Hemoglobin Concent 33.1 32.0-36.0 g/dL Red Cell Distribution Width 15.1 H 11.8-14.3 % Platelet Count 134 L 140-450 10^3/uL Mean Platelet Volume 11.4 H 6.9-10.8 fL Neutrophils (%) (Auto) 54.3 37.0-80.0 % Lymphocytes (%) (Auto) 33.6 10.0-50.0 % Monocytes (%) (Auto) 5.4 0.0-12.0 % Eosinophils (%) (Auto) 5.5 0.0-7.0 % Basophils (%) (Auto) 1.2 0.0-2.0 % Neutrophils # (Auto) 4.0 1.6-8.6 10 ^3/uL Lymphocytes # (Auto) 2.5 0.4-5.4 10 ^3/uL Monocytes # (Auto) 0.4 0-1.3 10 ^3/uL Eosinophils # (Auto) 0.4 0-0.8 10 ^3/uL Basophils # (Auto) 0.1 0-0.2 10 ^3/uL Nucleated Red Blood Cells 0.2 % Platelet Estimate Decreased Clumped Platelets None Sodium Level 143 136-145 mmol/L Potassium Level 4.1 3.5-5.1 mmol/L Chloride Level 112 H 98-107 mmol/L Carbon Dioxide Level 24 20-31 mmol/L Anion Gap 7 5-15 Blood Urea Nitrogen 29 H 9-23 mg/dL Creatinine 1.81 H 0.700-1.30 mg/dL Glomerular Filtration Rate Calc 40 >90 mL/min BUN/Creatinine Ratio 16.0 10.0-20.0 Serum Glucose 92 74-106 mg/dL Calcium Level 10.0 8.7-10.4 mg/dL Troponin I High Sensitivity 21 </=54 ng/L B-Type Natriuretic Peptide 712.44 0-100 pg/mL Patient alert. Was just at [facility]. Came in for chest pain. Vitals stable. EKG shows paced rhythm. Has been here many times to this ER. Explained to the patient. Continue cardiac monitoring. [address] [address] Ph: [phone] DIAGNOSTIC IMAGING Diagnostic Imaging Report : [id number] Signed PATIENT: NAVID SANCHEZ ACCT: [id number] UNIT: [id number] : 1955 LOC: ER ROOM / BED: / AGE / SEX: 69 / M ADM STATUS: REG ER SERVICE 0638 ORDERING PHYSICIAN: ROSELYN CHANG MD PROCEDURE(s): CXRP - CHEST PORTABLE REASON: sob ORDER NUMBER(s): [id number], ACCESSION NUMBER(s): [id number] EXAM: XR Chest, 1 View CLINICAL INDICATION: sob TECHNIQUE: Frontal view of the chest. COMPARISON: XY CHEST PORTABLE on DOS: 02/24/24, XY CHEST PORTABLE on DOS: 11/05/23, XY CHEST XRAY 1 VIEW on DOS: 07/04/23, XY CHEST XRAY 1 VIEW on DOS: 06/27/23, XY CHEST PORTABLE on DOS: 06/27/23 FINDINGS: LUNGS AND PLEURAL SPACES: See below. HEART: Cardiomegaly with mild congestion. MEDIASTINUM: Unremarkable. Normal mediastinal contour. BONES/JOINTS: Unremarkable. No acute fracture. OTHER FINDINGS: . IMPRESSION: Cardiomegaly with mild congestion. ATED BY: JAYDON CORTES MD DICTATED DATE/TIME: 05/05/24718 SIGNED BY: JAYDON CORTES MD SIGNED DATE/TIME: 05/05/24718 CC: Time of 1ST Reevaluation: 07:00 Reevaluation 1ST: Unchanged Patient Education/Counseling: Diagnosis, Treatment, Prognosis Family Education/Counseling: No Family Present Departure 1 Departure Time of Disposition: 07:08 Impression: Primary Impression: Congestive heart failure (CHF) Qualified Codes: I50.43 - Acute on chronic combined systolic (congestive) and diastolic (congestive) heart failure Additional Impression: Chest pain of unknown etiology Disposition: ADMITTED INPATIENT Admit to: Med Surg Condition: Guarded Critical Care Note Critical Care Time?: Yes (45 min-critical care time only) Critical care comment: Was given aspirin continue to monitor Stability Stability form required: No Heart Score Heart Score: Heart Score Response (Comments) Value History Slightly Suspicious 0 EKG Normal 0 Age >65 2 Risk Factors >3 or Hx ASHD 2 Troponin Normal limit 0 Total 4 I personally scribed for ROSELYN CHANG MD ([email or web address]) on 05/05/24 at 06:51. Electronically submitted by Lex Cristobal ([email or web address]). I personally scribed for ROSELYN CHANG MD ([email or web address]) on 05/05/24 at 07:52. Electronically submitted by Lex Cristobal ([email or web address]). ROSELYN CHANG MD May 05, 2024 06:51
--- NOTE | 2024-05-05 07:09 | ECG ---
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
--- NOTE | 2024-05-05 07:21 | DVH ---
EXAM: XR Chest, 1 View CLINICAL INDICATION: sob TECHNIQUE: Frontal view of the chest. COMPARISON: XY CHEST PORTABLE on DOS: 02/24/24, XY CHEST PORTABLE on DOS: 11/05/23, XY CHEST XRAY 1 EW on DOS: 07/04/23, XY CHEST XRAY 1 VIEW on DOS: 06/27/23, XY CHEST PORTABLE on DOS: 06/27/23 FINDINGS: LUNGS AND PLEURAL SPACES: See below. HEART: Cardiomegaly with mild congestion. MEDIASTINUM: Unremarkable. Normal mediastinal contour. BONES/JOINTS: Unremarkable. No acute fracture. OTHER FINDINGS: . IMPRESSION: Cardiomegaly with mild congestion.
[2024-05-05 07:30] VITALS: PULSE 72; RESP 12; O2SAT 94
[2024-05-05] MEDS: ASPirin 325 MG TAB PO ONE (07:40)
[2024-05-05 07:49] LABS: Basophils # (auto) 0.1 10 ^3/uL (0-0.2); Basophils % (auto) 1.2 % (0.0-2.0); Eosinophils # (auto) 0.4 10 ^3/uL (0-0.8); Eosinophils % (auto) 5.5 % (0.0-7.0); Hematocrit 32.5 % (41.0-53.0); Hemoglobin 10.8 g/dL (13.5-17.5); Lymphocytes # (auto) 2.5 10 ^3/uL (0.4-5.4); Lymphocytes % (auto) 33.6 % (10.0-50.0); Mean Corpuscular Hemoglobin 31.5 pg (28.0-32.0); Mean Corpuscular Hgb Conc. 33.1 g/dL (32.0-36.0); Mean Corpuscular Volume 95.1 fL (80.0-100.0); Monocytes # (auto) 0.4 10 ^3/uL (0-1.3); Monocytes % (auto) 5.4 % (0.0-12.0); Neutrophils % (auto) 54.3 % (37.0-80.0); Nucleated Red Blood Cells % 0.2 %; Platelet Count (auto) 134 10^3/uL (140-450); Red Blood Cells 3.42 10^6/uL (4.5-5.90); Red Cell Distribution Width 15.1 % (11.8-14.3); White Blood Cell 7.4 10^3/uL (4.4-10.8)
[2024-05-05 07:53] LABS: Potassium 4.1 mmol/L (3.5-5.1); Sodium 143 mmol/L (136-145)
[2024-05-05 07:54] LABS: Anion Gap 7 (5-15); Carbon Dioxide 24 mmol/L (20-31)
[2024-05-05 07:59] LABS: Glucose 92 mg/dL (74-106)
[2024-05-05 08:00] LABS: Blood Urea Nitrogen 29 mg/dL (9-23); Chloride 112 mmol/L (98-107)
--- NOTE | 2024-05-05 09:53 | DVHHP2 ---
History of Present Illness Reason for Visit: Chest pain History of Present Illness Dav Cain is a 69-year-old male with past medical history of asthma, CHF, COPD, NV, and hypertension, who came in for chest pain. Patient was seen here at [facility] in February for chest pain and bradycardia. Shortly after he was discharged from here he went to [facility] where he had a pacemaker placed. He was recently discharged from [place] and came to this hospital with complaints of sudden onset of chest pain. Past Surgical History: Appendectomy, Cholecystectomy, Other (Pacemaker, thyroidectomy) Smoke: No ALCOHOL: none Drugs: None Lives: with Family Domestic Violence: Neg Review of Systems Constitutional: No: Fever, Chills, Sweats, Weakness, Malaise, Other Eyes: No: Pain, Vision change, Conjunctivae inflammation, Eyelid inflammation, Other, Redness ENT: No: Ear pain, Ear discharge, Nose pain, Nose discharge, Nose congestion, Mouth pain, Mouth swelling, Throat pain, Throat swelling, Other Respiratory: No: Cough, Dry, Shortness of breath, SOB with excertion, Wheezing, Hemoptysis, Pleuritic Pain, Sputum, Wheezing, Other Cardiovascular: Chest Pain; No: Palpitations, Orthopnea, Paroxysmal Noc. Dy spnea, Edema, Lt Headedness, Other Gastrointestinal: No: Nausea, Vomiting, Abdominal Pain, Diarrhea, Constipation, Melena, Hematochezia, Other Genitourinary: No Dysuria, No Frequency, No Incontinence, No Hematuria, No Retention, No Other Musculoskeletal: No: other, neck pain, shoulder pain, arm pain, back pain, hand pain, leg pain, foot pain Skin: No: Rash, Lesions, Jaundice, Bruising, Other Neurological: No: Weakness, Numbness, Incoordination, Change in speech, Confusion, Seizures, Other Allergies: Coded Allergies: NO KNOWN ALLERGIES (Unverified , 10/04/22) Exam Vital Signs Vital Signs Date Time Temp Pulse Resp B/P (MAP) Pulse Ox O2 Delivery O2 Flow Rate FiO2 05/05/24 09:39 71 05/05/24 09:30 98.3 12 110/64 (79) 96 98.3 05/05/24 07:30 Room Air* 0 21 General Appearance: Alert, Oriented X3, Cooperative, mild distress HEENT: Atraumatic, PERRLA Respiratory: Clear to auscultation, Normal air movement Cardiovascular: Regular rate, Normal S1, Normal S2, No murmurs Abdominal: Normal bowel sounds, Soft, No tenderness Extremities: No clubbing, No cyanosis, Normal pulses, Other (bialteral LE edema) Skin: No rashes, No breakdown Neuro: Normal speech, Other (bedbound) Psych/Mental Status: Mental status NL, Mood NL Labs/Xrays Labs Test 05/05/24 09:02 05/05/24 07:25 Range/Units POC Glucose 107 H 70-106 mg/dl White Blood Count 7.4 4.4-10.8 10^3/uL Red Blood Count 3.42 L 4.5-5.90 10^6/uL Hemoglobin 10.8 L 13.5-17.5 g/dL Hematocrit 32.5 L 41.0-53.0 % Mean Corpuscular Volume 95.1 80.0-100.0 fL Mean Corpuscular Hemoglobin 31.5 28.0-32.0 pg Mean Corpuscular Hemoglobin Concent 33.1 32.0-36.0 g/dL Red Cell Distribution Width 15.1 H 11.8-14.3 % Platelet Count 134 L 140-450 10^3/uL Mean Platelet Volume 11.4 H 6.9-10.8 fL Neutrophils (%) (Auto) 54.3 37.0-80.0 % Lymphocytes (%) (Auto) 33.6 10.0-50.0 % Monocytes (%) (Auto) 5.4 0.0-12.0 % Eosinophils (%) (Auto) 5.5 0.0-7.0 % Basophils (%) (Auto) 1.2 0.0-2.0 % Neutrophils # (Auto) 4.0 1.6-8.6 10 ^3/uL Lymphocytes # (Auto) 2.5 0.4-5.4 10 ^3/uL Monocytes # (Auto) 0.4 0-1.3 10 ^3/uL Eosinophils # (Auto) 0.4 0-0.8 10 ^3/uL Basophils # (Auto) 0.1 0-0.2 10 ^3/uL Nucleated Red Blood Cells 0.2 % Sodium Level 143 136-145 mmol/L Potassium Level 4.1 3.5-5.1 mmol/L Chloride Level 112 H 98-107 mmol/L Carbon Dioxide Level 24 20-31 mmol/L Anion Gap 7 5-15 Blood Urea Nitrogen 29 H 9-23 mg/dL Creatinine 1.81 H 0.700-1.30 mg/dL Glomerular Filtration Rate Calc 40 >90 mL/min BUN/Creatinine Ratio 16.0 10.0-20.0 Serum Glucose 92 74-106 mg/dL Calcium Level 10.0 8.7-10.4 mg/dL Troponin I High Sensitivity 21 </=54 ng/L B-Type Natriuretic Peptide 712.44 0-100 pg/mL EXAM: XR Chest, 1 View FINDINGS: LUNGS AND PLEURAL SPACES: See below. HEART: Cardiomegaly with mild congestion. MEDIASTINUM: Unremarkable. Normal mediastinal contour. BONES/JOINTS: Unremarkable. No acute fracture. OTHER FINDINGS: . IMPRESSION: Cardiomegaly with mild congestion. Assessment/Plan Assessment/Plan Assessment: CHF exacerbation, Chest pain of unknown etiology, Chronic kidney disease, COPD, Asthma, Hypertension, Plan: Admit to Tele, Cardiology consult, Supplemental oxygen as needed, Breathing treatments as needed, IV Lasix, Home medications reconciled, Plan discussed with: Patient My Orders Orders - SARAH LEON Procedure Category Date Status Time Admit ADMIT 05/05/24 Verified 09:48 Code Status CODE 05/05/24 Verified 09:48 Sodium Chloride Lock PHA 05/05/24 Verified (Saline Lock Ns) 14:00 Hydrocodone-Acet PHA 05/05/24 Verified 5/325mg Tab ([place] 10:00 Ondansetron Hcl PHA 05/05/24 Verified (Zofran) 10:00 Docusate Sodium PHA 05/05/24 Verified Capsule (Colace 10:00 Complete Blood Count LAB 05/06/24 Verified 04:00 Comprehensive LAB 05/06/24 Verified Metabolic Panel 04:00 Cardiac DIET 05/05/24 Verified Diet-2gna,Lofat,Lochol Lunch Pt Request For Service PT 05/05/24 Verified 09:48 Condition: Serious ELLIE 05/05/24 Verified 09:48 Acetaminophen Tablet PHA 05/05/24 Verified (Tylenol Tablet) 10:00 Nitroglycerin PHA 05/05/24 Verified Sublingual (Ntrostat 10:00 Date of Service: May 05, 2024 Billing Provider: SARAH LEON Common Visit Codes: [id number] INP/OBS CARE (MOD) SARAH LEON May 05, 2024 09:53
[2024-05-05] MEDS ORDERED: DOCUSATE SOD 100 MG CAP PO PRN ×2 (10:00→10:15)
[2024-05-05] MEDS ORDERED: MORPHINE SULFATE INJ 2 MG/ml SYRG IV PRN (10:00)
[2024-05-05] MEDS ORDERED: FUROSEMIDE 40 MG/4 ML VIAL IV ONE (10:00)
[2024-05-05] MEDS ORDERED: ACETAMINOPHEN 325 MG TAB PO PRN ×2 (10:00→10:15)
[2024-05-05] MEDS ORDERED: ONDANSETRON HCL 4 MG/2 ML VIAL IV PRN ×2 (10:00→10:15)
[2024-05-05] MEDS ORDERED: HYDROcodone-ACET 5/325MG TAB PO PRN (10:00)
[2024-05-05] MEDS ORDERED: IPRATROPIUM BROM 0.5 MG/2.5ML INH SOL NEB PRN (10:00)
[2024-05-05] MEDS ORDERED: ALBUTEROL SULF 2.5 MG/0.5ML(0.5%) NEB SOLN NEB PRN (10:00)
[2024-05-05] MEDS ORDERED: NITROGLYCERIN 0.4 MG SL TAB SL PRN ×2 (10:00→10:15)
[2024-05-05 10:46] VITALS: O2SAT 96
[2024-05-05 10:48] VITALS: BP 116/62; PULSE 88; RESP 18; TEMP 97.6; O2SAT 96
[2024-05-05] MEDS: FUROSEMIDE 40 MG/4 ML VIAL IV ONE (11:00)
--- NOTE | 2024-05-05 11:08 | DVHINCON2 ---
Date of service: May 05, 2024 Referring Physician Matt Reason for Consultation CHF exacerbation History of Present Illness This is a 69 year old male with a PMH of Angina, Anxiety, Asthma, CAD, CHF, CKF, COPD, CVA, Depression, DM, GERD, High Lipids, HTN, Liver, [place], MRSA, TIA who was brought in by EMS with complaints of chest pain. Patient was seen at [facility] for same symptoms and was dsicharged. Patient states upon arrival home, he had a sudden onset of 10/10 substernal chest pain, which radiates down the the left arm. EKG shows paced rhythm. Chest x-ray shows cardiomegaly with mild congestion. Troponin is negative BNP 712.44. BUN 29, Product Marketing Programs Manager 1.81. Patient was admitted to the hospital. I am asked to consult on this patient. Family History: Alcoholism G8 MOTHER, Onset:Unknown Cancer G8 SISTER (uterine cancer) Cardiovascular disease G8 SISTER Cerebrovascular accident (CVA) G8 BROTHER Chronic obstructive pulmonary disease G8 SISTER Depression G8 SISTER Diabetes mellitus G8 SISTER G8 SISTER Family history: Cardiovascular disease Family history: Depression (situation) Family history: Hypertension Family history: Hypertension Glaucoma MATERNAL GPA Sepsis Stroke Stroke Allergies: Coded Allergies: NO KNOWN ALLERGIES (Unverified , 10/04/22) Home Meds Active Scripts Hydrocodone-Acetaminophen (Hydrocodone Bitartrate/AC 5-325 mg) 1 Tab Tab, 1 TAB PO Q6HP PRN, #15 TAB Prov:DANIEL OLIVAREZ MD 02/28/24 Ranolazine (Ranexa) 500 Mg Tab, 500 MG PO BID for 30 Days, #60 TAB Prov:JUSTIN DUARTE MD 10/22/18 Reported Medications Budesonide-Formoterol Fumarate (Budesonide/Formoterol Fum 160-4.5 Mcg/Act) 1 Aer Aer, 2 PUFF IN BID for 30 Days, #10.2 02/26/24 Midodrine HCl (Midodrine Hydrochloride) 5 Mg Tab, 1 TAB PO TID for 30 Days, #90 02/26/24 Potassium Chloride (Potassium Chloride ER) 10 Meq Tab, 1 TAB PO BID for 30 Days, #60 02/26/24 Furosemide (Furosemide) 40 Mg Tab, 0.5 TAB PO BID for 30 Days, #30 TAKE 1/2 TABLET (20 MG) BY MOUTH TWICE DAILY. 1/7/25 Aspirin (Aspirin Regular Strength) 325 Mg Tab, 1 TAB PO DAILY for 30 Days, #30 02/26/24 Lactulose (Lactulose) 10 Gm/15 Ml Rachna, 15 ML PO BID PRN for 15 Days, #473 02/26/24 Isosorbide Mononitrate (Isosorbide Mononitrate Er) 30 Mg Tab, 1 TAB PO DAILY for 30 Days, #30 02/26/24 Atorvastatin Calcium (Lipitor) 80 Mg Tab, 1 TAB PO DAILY for 30 Days, #30 02/26/24 Amlodipine Besylate (Amlodipine Besylate) 10 Mg Tab, 1 TAB PO DAILY for 30 Days, #30 02/26/24 Levetiracetam (Levetiracetam) 750 Mg Tab, 1 TAB PO BID for 30 Days, #60 02/26/24 Losartan Potassium (Losartan Potassium) 50 Mg Tab, 0.5 TAB PO DAILY for 30 Days, #15 TAKE 1/2 TABLET (25 MG) BY MOUTH DAILY. 02/26/24 Lidocaine (Lidocaine Topical Pain Pa) 4 % Pad, 1 PATCH TOP DAILY 06/28/23 Gabapentin (Gabapentin) 800 Mg Tab, 1 TAB PO BID for 30 Days, #60 06/28/23 Ipratropium-Albuterol (COMBIVENT RESPIMAT) Respimat Aer, 1 PUFF INH QID 05/14/23 Methocarbamol (Methocarbamol) 500 Mg Tab, 1.5 TAB PO Q8HR PRN for 8 Days, #40 05/14/23 Dapagliflozin Propanediol (Farxiga) 10 Mg Tab, 1 TAB PO DAILY for 30 Days, #30 05/14/23 Hydralazine Hcl (Hydralazine Hcl) 50 Mg Tab, 1 TAB PO TID PRN for 30 Days, #90 05/14/23 Beclomethasone Dipropionate (Qvar Redihaler) 80 Mcg/Act Aer, 1 PUFF INH BID for 30 Days, #10.6 02/27/23 Silver Sulfadiazine (Silver Sulfadiazine) 1 % Cre, 1 APPLIC TOP DAILY for 30 Days, #50 02/27/23 Oxybutynin Chloride (Ditropan Xl) 5 Mg Tab, 15 MG PO DAILY for 30 Days, #30 02/27/23 Trazodone Hcl (Trazodone Hcl) 100 Mg Tab, 4 TAB PO HS for 30 Days, #120 02/27/23 Metoprolol Succinate (Metoprolol Succinate Er) 25 Mg Tab, 1 TAB PO DAILY for 30 Days, #30 02/27/23 Clopidogrel Bisulfate (CLOPIDOGREL) 75 Mg Tab, 1 TAB PO DAILY for 30 Days, #30 02/07/23 Pantoprazole Sodium Sesquihydr (Pantoprazole Sodium) 40 Mg Tab, 1 TAB PO QAM 02/07/23 Bupropion Hcl (Bupropion Hcl) 75 Mg Tab, 2 TAB PO DAILY for 30 Days, #60 11/10/17 Current Medications Current Medications Medications (Trade) Dose Ordered Sig/Yvette Route PRN Reason Start Time Stop Time Status Last Admin Sodium Chloride (Saline Lock Ns) 10 ml Q8HR IV 05/05/24 14:00 05/05/24 10:05 DC Acetaminophen/ Hydrocodone Bitart (Mccamey 5/325MG Tab) 1 tab Q4HP PRN PO MODERATE PAIN (4-6 PAIN SCALE) 05/05/24 10:00 05/05/24 10:06 DC Ondansetron HCl (Zofran) 4 mg Q4HP PRN IV NAUSEA / VOMITING 05/05/24 10:00 05/05/24 10:06 DC Docusate Sodium (Colace Capsule) 100 mg BIDPRN PRN PO FOR CONSTIPATION 05/05/24 10:00 05/05/24 10:06 DC Acetaminophen (Tylenol Tablet) 650 mg Q6HP PRN PO PAIN SCALE 1-3 OR TEMP>100.4 05/05/24 10:00 05/05/24 10:06 DC Nitroglycerin (Ntrostat Sublingual) 0.4 mg Q5MINP PRN SL FOR CHEST PAIN 05/05/24 10:00 05/05/24 10:06 DC Morphine Sulfate 2 mg Q30M PRN IV FOR CHEST PAIN 05/05/24 10:00 05/05/24 10:06 DC Furosemide (Lasix Injection) 20 mg DAILY IV 05/06/24 10:00 05/05/24 10:06 DC Albuterol (Ventolin Medneb) 2.5 mg Q6HPRN PRN NEB SHORTNESS OF BREATH 05/05/24 10:00 05/05/24 10:06 DC Ipratropium [place] (Atrovent Medneb) 0.5 mg Q6HPRN PRN NEB SHORTNESS OF BREATH 05/05/24 10:00 05/05/24 10:06 DC Ipratropium [place] (Atrovent Medneb) 0.5 mg Q6HPRN PRN NEB SHORTNESS OF BREATH 05/05/24 10:15 UNV Sodium Chloride (Saline Lock Ns) 10 ml Q8HR IV 05/05/24 14:00 UNV Ondansetron HCl (Zofran) 4 mg Q4HP PRN IV NAUSEA / VOMITING 05/05/24 10:15 UNV Morphine Sulfate 2 mg Q30M PRN IV FOR CHEST PAIN 05/05/24 10:15 UNV Furosemide (Lasix Injection) 20 mg DAILY IV 05/06/24 10:00 UNV Acetaminophen/ Hydrocodone Bitart (Mccamey 5/325MG Tab) 1 tab Q4HP PRN PO MODERATE PAIN (4-6 PAIN SCALE) 05/05/24 10:15 UNV Docusate Sodium (Colace Capsule) 100 mg BIDPRN PRN PO FOR CONSTIPATION 05/05/24 10:15 UNV Acetaminophen (Tylenol Tablet) 650 mg Q6HP PRN PO PAIN SCALE 1-3 OR TEMP>100.4 05/05/24 10:15 UNV Nitroglycerin (Ntrostat Sublingual) 0.4 mg Q5MINP PRN SL FOR CHEST PAIN 05/05/24 10:15 UNV Albuterol (Ventolin Medneb) 2.5 mg Q6HPRN PRN NEB SHORTNESS OF BREATH 05/05/24 10:15 UNV Review of Systems Constitutional: denies: chills, diaphoresis, fatigue, fever, malaise, sweats, weakness, others EENTM: denies: blurred vision, double vision, ear bleeding, ear discharge, ear drainage, ear pain, ear ringing, eye pain, eye redness, hearing loss, mouth pain, mouth swelling, nasal discharge, nose bleeding, nose congestion, nose pain, photophobia, tearing, throat pain, throat swelling, voice changes, others Respiratory: denies: cough, hemoptysis, orthopnea, SOB at rest, shortness of breath, SOB with excertion, stridor, wheezing, others Cardiovascular: reports: chest pain, left arm pain; denies: dizzy spells, diaphoresis, Dyspnea on exertion, edema, irregular heart beat, lightheadedness, palpitations, PND, syncope, others Gastrointestinal: denies: abdomen distended, abdominal pain, blood streaked bowels, constipated, diarrhea, dysphagia, difficulty swallowing, hematemesis, melena, nausea, poor appetite, poor fluid intake, rectal bleeding, rectal pain, vomiting, others Genitourinary: denies: burning, dysuria, flank pain, frequency, hematuria, incontinence, penile discharge, penile sore, pain, testicle pain, testicle swelling, urgency, others Neurological: denies: dizziness, fainting, headache, left sided numbness, left sided weakness, numbness, paresthesia, pre-existing deficit, right sided numbness, right sided weakness, seizure, speech problems, tingling, tremors, weakness, others Musculoskeletal: denies: back pain, gout, joint pain, joint swelling, muscle pain, muscle stiffness, neck pain, others Integumetry: denies: bruises, change in color, change in hair/nails, dryness, laceration, lesions, lumps, rash, wounds, others Allergic/Immunocompromised: denies: Difficulty Healing, Frequent Infections, Hives, Itching, others Hematologic/Lymphatic: denies: anemia, blood clots, easy bleeding, easy br uising, swollen glands, others Endocrine: denies: excessive hunger, excessive sweating, excessive thirst, excessive urination, flushing, intolerance to cold, intolerance to heat, unexplained weight gain, unexplained weight loss, others Psychiatric: denies: anxiety, bipolar disorder, depression, hopeless, panic disorder, schizophrenia, sleepless, suicidal, others All Other Systems: Reviewed and Negative Vital Signs Vital Signs Date Time Temp Pulse Resp B/P (MAP) Pulse Ox O2 Delivery O2 Flow Rate FiO2 05/05/24 09:39 71 05/05/24 09:30 98.3 12 110/64 (79) 96 98.3 05/05/24 07:30 Room Air* 0 21 Physical Exam GENERAL: Awake, alert, oriented. LUNGS: Clear. CARDIOVASCULAR: Heart sounds are good. ABDOMEN: Soft. Labs/Diagnostic Data Labs Test 05/05/24 09:02 05/05/24 07:25 Range/Units POC Glucose 107 H 70-106 mg/dl White Blood Count 7.4 4.4-10.8 10^3/uL Red Blood Count 3.42 L 4.5-5.90 10^6/uL Hemoglobin 10.8 L 13.5-17.5 g/dL Hematocrit 32.5 L 41.0-53.0 % Mean Corpuscular Volume 95.1 80.0-100.0 fL Mean Corpuscular Hemoglobin 31.5 28.0-32.0 pg Mean Corpuscular Hemoglobin Concent 33.1 32.0-36.0 g/dL Red Cell Distribution Width 15.1 H 11.8-14.3 % Platelet Count 134 L 140-450 10^3/uL Mean Platelet Volume 11.4 H 6.9-10.8 fL Neutrophils (%) (Auto) 54.3 37.0-80.0 % Lymphocytes (%) (Auto) 33.6 10.0-50.0 % Monocytes (%) (Auto) 5.4 0.0-12.0 % Eosinophils (%) (Auto) 5.5 0.0-7.0 % Basophils (%) (Auto) 1.2 0.0-2.0 % Neutrophils # (Auto) 4.0 1.6-8.6 10 ^3/uL Lymphocytes # (Auto) 2.5 0.4-5.4 10 ^3/uL Monocytes # (Auto) 0.4 0-1.3 10 ^3/uL Eosinophils # (Auto) 0.4 0-0.8 10 ^3/uL Basophils # (Auto) 0.1 0-0.2 10 ^3/uL Nucleated Red Blood Cells 0.2 % Sodium Level 143 136-145 mmol/L Potassium Level 4.1 3.5-5.1 mmol/L Chloride Level 112 H 98-107 mmol/L Carbon Dioxide Level 24 20-31 mmol/L Anion Gap 7 5-15 Blood Urea Nitrogen 29 H 9-23 mg/dL Creatinine 1.81 H 0.700-1.30 mg/dL Glomerular Filtration Rate Calc 40 >90 mL/min BUN/Creatinine Ratio 16.0 10.0-20.0 Serum Glucose 92 74-106 mg/dL Calcium Level 10.0 8.7-10.4 mg/dL Troponin I High Sensitivity 21 </=54 ng/L B-Type Natriuretic Peptide 712.44 0-100 pg/mL Assessment CHF exacerbation. Chest pain. Chronic kidney disease. COPD. Plan/Recommendation I agree with your ongoing assessment and care of plan. Morphine and Mccamey for pain management. Diuretics with Lasix. Nitro SL. Additional plan as per the hospital course. A total of 45 minutes was spent reviewing the patient record, examining the patient, making a diagnostic and therapeutic plan, discussing this plan with medical personnel, following up on diagnostic studies and following the patient for clinical stability excluding any and all procedures. At least 50% of this time was spent in direct, [id number] contact. Plan discussed with: Patient ROHINI ABARCA MD May 05, 2024 11:08
[2024-05-05 11:21] LABS: Platelet Estimate Decreased
[2024-05-05] MEDS: MORPHINE SULFATE INJ 2 MG/ml SYRG IV PRN (11:21)
[2024-05-05 12:26] LABS: Urine Bacteria None Seen /hpf (None Seen)
[2024-05-05 12:31] LABS: Urine Blood Negative /uL (Negative); Urine Clarity Clear (Clear); Urine Color Light-Yellow (Yellow); Urine Hyaline Cast MOD /lpf (0 - 2); Urine Protein, UAD Negative (Negative); Urine Specific Gravity 1.013 (1.001-1.035); Urine Squamous Epithelial Cell None Seen /hpf (<5); Urine Urobilinogen Normal (Negative); Urine WBC < 1 /HPF (0-3)
[2024-05-05] MEDS ORDERED: SODIUM CHLOR 0.9% PF (SALINE LOCK) 10ML VIAL/SYR IV SCH (14:00)
[2024-05-05] MEDS: SODIUM CHLOR 0.9% PF (SALINE LOCK) 10ML VIAL/SYR IV SCH (14:08)
[2024-05-05 18:06] VITALS: O2SAT 95
[2024-05-05 19:30] VITALS: RESP 14; O2SAT 96
[2024-05-05] MEDS: GABAPENTIN 400 MG CAP PO SCH (22:00)
[2024-05-05] MEDS: ATORVASTATIN 20 MG TAB PO SCH (22:00)
[2024-05-05] MEDS: traZODone HCL 50 MG TAB PO SCH (22:00)
[2024-05-05] MEDS: levETIRAcetam 500 MG TAB PO SCH (22:00)
[2024-05-06] VITALS (17 sets, daily range): BP systolic 94–116; BP diastolic 50–72; PULSE 55–130; RESP 18–21; TEMP 96.8–98.6; O2SAT 90–100
[2024-05-06] MEDS: HYDROcodone-ACET 5/325MG TAB PO PRN (00:50)
[2024-05-06] MEDS: IPRATROPIUM BROM 0.5 MG/2.5ML INH SOL NEB PRN (06:29)
[2024-05-06] MEDS: ALBUTEROL SULF 2.5 MG/0.5ML(0.5%) NEB SOLN NEB PRN (06:29)
[2024-05-06 08:56] LABS: Basophils # (auto) 0.1 10 ^3/uL (0-0.2); Basophils % (auto) 0.8 % (0.0-2.0); Eosinophils # (auto) 0.4 10 ^3/uL (0-0.8); Hematocrit 31.9 % (41.0-53.0); Hemoglobin 10.5 g/dL (13.5-17.5); Lymphocytes # (auto) 2.1 10 ^3/uL (0.4-5.4); Lymphocytes % (auto) 34.7 % (10.0-50.0); Mean Corpuscular Hemoglobin 30.8 pg (28.0-32.0); Mean Corpuscular Hgb Conc. 32.8 g/dL (32.0-36.0); Mean Corpuscular Volume 93.9 fL (80.0-100.0); Monocytes # (auto) 0.4 10 ^3/uL (0-1.3); Monocytes % (auto) 6.4 % (0.0-12.0); Neutrophils # (auto) 3.1 10 ^3/uL (1.6-8.6); Neutrophils % (auto) 51.1 % (37.0-80.0); Platelet Count (auto) 178 10^3/uL (140-450); Red Cell Distribution Width 15.3 % (11.8-14.3); White Blood Cell 6.2 10^3/uL (4.4-10.8)
[2024-05-06 09:14] LABS: Alanine Aminotransferase 10 U/L (7-40); Albumin 4.1 g/dL (3.2-4.8); Alkaline Phosphatase 54 U/L (46-116); Anion Gap 7 (5-15); BUN/Creatinine Ratio 17.6 (10.0-20.0); Bilirubin, Total 0.4 mg/dL (0.2-1.0); Calcium 9.9 mg/dL (8.7-10.4); Carbon Dioxide 29 mmol/L (20-31); Glucose 83 mg/dL (74-106); Potassium 3.9 mmol/L (3.5-5.1); Sodium 145 mmol/L (136-145); Total Protein 7.4 g/dL (5.7-8.2)
[2024-05-06 09:15] LABS: Aspartate Aminotransferase 12 U/L (13-40); Blood Urea Nitrogen 34 mg/dL (9-23); Chloride 109 mmol/L (98-107)
[2024-05-06] MEDS: FUROSEMIDE 20 MG/2 ML VIAL IV SCH (09:36)
[2024-05-06] MEDS: ASPirin-EC 325mg tab PO SCH (09:37)
[2024-05-06] MEDS: Dapagliflozin Propanediol (Farxiga) 10 MG TABLET PO SCH (09:37)
[2024-05-06] MEDS: buPROPion HCL 75 MG TAB PO SCH (09:39)
[2024-05-06] MEDS: amLODIPine BESYLATE 5 MG TAB PO SCH (09:40)
[2024-05-06] MEDS: CLOPIDOGREL BISULFATE 75 MG TAB PO SCH (09:41)
[2024-05-06] MEDS: ISOSORBIDE MONONITRATE ER 60 MG TAB PO SCH (09:41)
[2024-05-06] MEDS: METOPROLOL SUCCINATE XL 50 MG TAB PO SCH (09:41)
[2024-05-06] MEDS ORDERED: FUROSEMIDE 20 MG/2 ML VIAL IV SCH (10:00)
--- NOTE | 2024-05-06 13:32 | DVHPN2 ---
Reviewed: Care Plan, H&P, Labs, Medications, Previous Orders, Radiology Changes from previous H/P or p: No Changes Eyes: No Pain, No Vision change, No Conjunctivae inflammation, No Eyelid inflammation, No Other, No Redness ENT: No Ear pain, No Ear discharge, No Nose pain, No Nose discharge, No Nose congestion, No Mouth pain, No Mouth swelling, No Throat pain, No Throat swelling, No Other Cardiovascular: Chest Pain; No Palpitations, No Orthopnea, No Paroxysmal Noc. Dyspnea, No Edema, No Lt Headedness, No Other Respiratory: No Cough, No Dry, No Shortness of breath, No SOB with excertion, No Wheezing, No Hemoptysis, No Pleuritic Pain, No Sputum, No Other Gastrointestinal: No Nausea, No Vomiting, No Abdominal Pain, No Diarrhea, No Constipation, No Melena, No Hematochezia, No Other Genitourinary: No Dysuria, No Frequency, No Incontinence, No Hematuria, No Retention, No Other Musculoskeletal: No other, No neck pain, No shoulder pain, No arm pain, No back pain, No hand pain, No leg pain, No foot pain Skin: No Rash, No Lesions, No Jaundice, No Bruising, No Other Objective Vitals Vital Signs Date Time Temp Pulse Resp B/P (MAP) Pulse Ox O2 Delivery O2 Flow Rate FiO2 05/06/24 11:00 97.8 130 20 94/72 (79) 95 97.8 05/06/24 06:36 Nasal Cannula* 2 28 Intake/Output Intake and Output 05/06/24 07:00 Intake Total 600 ml Output Total 550 ml Balance 50 ml Intake Oral 600 ml Output Urine Total 550 ml Medications Current Medications Medications Dose Ordered Sig/Yvette Route Start Time Stop Time Status Last Admin Dose Admin Ipratropium [place] 0.5 mg Q6HPRN PRN NEB 05/05/24 10:15 05/06/24 06:29 0.5 MG Sodium Chloride 10 ml Q8HR IV 05/05/24 14:00 05/06/24 06:00 10 ML Ondansetron HCl 4 mg Q4HP PRN IV 05/05/24 10:15 Morphine Sulfate 2 mg Q30M PRN IV 05/05/24 10:15 05/05/24 15:04 2 MG Furosemide 20 mg DAILY IV 05/06/24 10:00 05/06/24 09:36 20 MG Acetaminophen/ Hydrocodone Bitart 1 tab Q4HP PRN PO 05/05/24 10:15 05/06/24 10:12 1 TAB Docusate Sodium 100 mg BIDPRN PRN PO 05/05/24 10:15 Acetaminophen 650 mg Q6HP PRN PO 05/05/24 10:15 Nitroglycerin 0.4 mg Q5MINP PRN SL 05/05/24 10:15 Albuterol 2.5 mg Q6HPRN PRN NEB 05/05/24 10:15 05/06/24 06:29 2.5 MG Aspirin 325 mg DAILY PO 05/06/24 10:00 05/06/24 09:37 325 MG Bupropion HCl 150 mg DAILY PO 05/06/24 10:00 05/06/24 09:39 150 MG Clopidogrel Bisulfate 75 mg DAILY PO 05/06/24 10:00 05/06/24 09:41 75 MG Amlodipine Besylate 10 mg DAILY PO 05/06/24 10:00 Atorvastatin Calcium 80 mg HS PO 05/05/24 22:00 05/05/24 22:00 80 MG Patient Own Medication 1 tab DAILY PO 05/06/24 10:00 Gabapentin 800 mg BID PO 05/05/24 22:00 05/06/24 09:40 800 MG Isosorbide Mononitrate 30 mg DAILY PO 05/06/24 10:00 Levetiracetam 750 mg BID PO 05/05/24 22:00 05/06/24 09:40 750 MG Metoprolol Succinate 25 mg DAILY PO 05/06/24 10:00 Trazodone HCl 400 mg HS PO 05/05/24 22:00 05/05/24 23:03 400 MG Laboratory Results Laboratory Tests 05/06/24 08:42 Chemistry Test 05/06/24 08:42 Albumin 4.1 g/dL (3.2-4.8) Calcium Level 9.9 mg/dL (8.7-10.4) Total Protein 7.4 g/dL (5.7-8.2) LFT Test 05/06/24 08:42 Alanine Aminotransferase (ALT) 10 U/L (7-40) Alkaline Phosphatase 54 U/L (46-116) Aspartate Amino Transferase (AST) 12 U/L (13-40) L Total Bilirubin 0.4 mg/dL (0.2-1.0) Urinalysis Test 05/05/24 08:00 Urine Color Light-yellow (Yellow) Urine Clarity Clear (Clear) Urine pH 5.0 (5.0-9.0) Urine Specific [place] 1.013 (1.001-1.035) Urine Protein Negative (Negative) Urine Ketones Negative (Negative) Urine Blood Negative /uL (Negative) Urine Nitrite Negative (Negative) Urine Bilirubin Negative (Negative) Urine Urobilinogen Normal mg/dL (Negative) Urine Leukocyte Esterase Negative /uL (Negative) Urine RBC <1 /hpf (0 - 3) Urine Microscopic WBC < 1 /HPF (0-3) Urine Squamous Epithelial Cells None seen /hpf (<5) Urine Bacteria None seen /hpf (None Seen) Urine Hyaline Casts Mod /lpf (0 - 2) Urine Glucose 2+ mg/dL (Normal) H Labs and/or images reviewed: Labs reviewed by me, Image(s) reviewed by me Assessment/Plan Assessment/Plan Acute chest pain troponin normal, cardiology consult by Dr. Montesinos appreciated Acute on chronic systolic/diastolic congestive heart failure Lasix Acute kidney injury on chronic kidney disease History of CVA with right-sided deficits Coronary artery disease Acute COPD exacerbation Diabetes Depression Hypertension History of [place] History of TIA Cholesterol Morbidly obese Time taken 70 minutes Patient is full code Advanced care planning time 20 minutes Continue all home meds for comorbidities Plan discussed with: Patient Date of Service: May 06, 2024 Billing Provider: CYDNEY MCGARRY MD Common Visit Codes: [id number] CARE 30-74 MIN CYDNEY MCGARRY MD May 06, 2024 13:32
--- NOTE | 2024-05-06 14:25 | ECG ---
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
--- NOTE | 2024-05-06 21:16 | DVHPN2 ---
Progress Note - Dictate Date Seen: May 06, 2024 Medical Necessity Reason Pt with a Central, PICC or Fol: No Subjective Patient was seen and evaluated in follow up. Patient is on 2 LPM NC. Patient is complaining of chest pain. 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 vital signs Vital Sign Date Time Temp Pulse Resp B/P (MAP) Pulse Ox O2 Delivery O2 Flow Rate FiO2 05/06/24 20:16 55 20 100 05/06/24 20:12 Nasal Cannula* 2 28 05/06/24 17:00 98.6 100/59 (73) 98.6 Total Intake and Output 05/05/24 05/05/24 05/06/24 15:00 23:00 07:00 Intake Total 600 ml Output Total 550 ml 0 ml Balance -550 ml 600 ml medications Current Medications Medications Dose Ordered Sig/Yvette Route Start Time Stop Time Status Last Admin Dose Admin Ipratropium [place] 0.5 mg Q6HPRN PRN NEB 05/05/24 10:15 05/06/24 20:10 0.5 MG Sodium Chloride 10 ml Q8HR IV 05/05/24 14:00 05/06/24 14:00 10 ML Ondansetron HCl 4 mg Q4HP PRN IV 05/05/24 10:15 Morphine Sulfate 2 mg Q30M PRN IV 05/05/24 10:15 05/05/24 15:04 2 MG Furosemide 20 mg DAILY IV 05/06/24 10:00 05/06/24 09:36 20 MG Acetaminophen/ Hydrocodone Bitart 1 tab Q4HP PRN PO 05/05/24 10:15 05/06/24 21:02 1 TAB Docusate Sodium 100 mg BIDPRN PRN PO 05/05/24 10:15 Acetaminophen 650 mg Q6HP PRN PO 05/05/24 10:15 Nitroglycerin 0.4 mg Q5MINP PRN SL 05/05/24 10:15 Albuterol 2.5 mg Q6HPRN PRN NEB 05/05/24 10:15 05/06/24 20:10 2.5 MG Aspirin 325 mg DAILY PO 05/06/24 10:00 05/06/24 09:37 325 MG Bupropion HCl 150 mg DAILY PO 05/06/24 10:00 05/06/24 09:39 150 MG Clopidogrel Bisulfate 75 mg DAILY PO 05/06/24 10:00 05/06/24 09:41 75 MG Amlodipine Besylate 10 mg DAILY PO 05/06/24 10:00 Atorvastatin Calcium 80 mg HS PO 05/05/24 22:00 05/05/24 22:00 80 MG Patient Own Medication 1 tab DAILY PO 05/06/24 10:00 Gabapentin 800 mg BID PO 05/05/24 22:00 05/06/24 09:40 800 MG Isosorbide Mononitrate 30 mg DAILY PO 05/06/24 10:00 Levetiracetam 750 mg BID PO 05/05/24 22:00 05/06/24 09:40 750 MG Metoprolol Succinate 25 mg DAILY PO 05/06/24 10:00 Trazodone HCl 400 mg HS PO 05/05/24 22:00 05/05/24 23:03 400 MG objective GENERAL: Awake, alert, oriented. Morbidly obese. LUNGS: Clear. CARDIOVASCULAR: Heart sounds are good. ABDOMEN: Soft. laboratory and microbiology Laboratory Tests 05/06/24 08:42 Test 05/06/24 08:42 Range/Units Serum Glucose 83 74-106 mg/dL Problem List CHF exacerbation. Chest pain. Acute kidney injury on chronic kidney disease. COPD exacerbation. Acute on chronic systolic/diastolic congestive heart failure. History of CVA with right-sided deficits. CAD. Diabetes. Depression. Hypertension. History of [place]. Morbidly obese. Assessment/Plan Continued all current supportive medical care. Morphine and [place] for pain management. Aspirin, Lipitor, Metoprolol, Plavix. Diuretics with Lasix. Nitro SL. Additional plan as per the hospital course. Plan discussed with: Patient ROHINI ABARCA MD May 06, 2024 21:16
[2024-05-07] VITALS (13 sets, daily range): BP systolic 80–108; BP diastolic 40–58; PULSE 50–95; RESP 17–20; TEMP 96.8–98.2; O2SAT 92–100
--- NOTE | 2024-05-07 08:06 | DVHPN2 ---
Reviewed: Care Plan, H&P, Labs, Medications, Previous Orders, Radiology Changes from previous H/P or p: No Changes Eyes: No Pain, No Vision change, No Conjunctivae inflammation, No Eyelid inflammation, No Other, No Redness ENT: No Ear pain, No Ear discharge, No Nose pain, No Nose discharge, No Nose congestion, No Mouth pain, No Mouth swelling, No Throat pain, No Throat swelling, No Other Cardiovascular: Chest Pain; No Palpitations, No Orthopnea, No Paroxysmal Noc. Dyspnea, No Edema, No Lt Headedness, No Other Respiratory: No Cough, No Dry, No Shortness of breath, No SOB with excertion, No Wheezing, No Hemoptysis, No Pleuritic Pain, No Sputum, No Other Gastrointestinal: No Nausea, No Vomiting, No Abdominal Pain, No Diarrhea, No Constipation, No Melena, No Hematochezia, No Other Genitourinary: No Dysuria, No Frequency, No Incontinence, No Hematuria, No Retention, No Other Musculoskeletal: No other, No neck pain, No shoulder pain, No arm pain, No back pain, No hand pain, No leg pain, No foot pain Skin: No Rash, No Lesions, No Jaundice, No Bruising, No Other Objective Vitals Vital Signs Date Time Temp Pulse Resp B/P (MAP) Pulse Ox O2 Delivery O2 Flow Rate FiO2 05/07/24 07:15 100 Nasal Cannula 2.0 05/07/24 07:15 28 05/07/24 05:00 97.7 51 20 107/56 (73) 97.7 Intake/Output Intake and Output 05/07/24 07:00 Intake Total 591 ml Output Total 550 ml Balance 41 ml Intake Oral 591 ml Output Urine Total 550 ml Medications Current Medications Medications Dose Ordered Sig/Yvette Route Start Time Stop Time Status Last Admin Dose Admin Ipratropium [place] 0.5 mg Q6HPRN PRN NEB 05/05/24 10:15 05/06/24 20:10 0.5 MG Sodium Chloride 10 ml Q8HR IV 05/05/24 14:00 05/07/24 05:37 10 ML Ondansetron HCl 4 mg Q4HP PRN IV 05/05/24 10:15 Morphine Sulfate 2 mg Q30M PRN IV 05/05/24 10:15 05/05/24 15:04 2 MG Furosemide 20 mg DAILY IV 05/06/24 10:00 05/06/24 09:36 20 MG Acetaminophen/ Hydrocodone Bitart 1 tab Q4HP PRN PO 05/05/24 10:15 05/06/24 21:02 1 TAB Docusate Sodium 100 mg BIDPRN PRN PO 05/05/24 10:15 Acetaminophen 650 mg Q6HP PRN PO 05/05/24 10:15 Nitroglycerin 0.4 mg Q5MINP PRN SL 05/05/24 10:15 Albuterol 2.5 mg Q6HPRN PRN NEB 05/05/24 10:15 05/06/24 20:10 2.5 MG Aspirin 325 mg DAILY PO 05/06/24 10:00 05/06/24 09:37 325 MG Bupropion HCl 150 mg DAILY PO 05/06/24 10:00 05/06/24 09:39 150 MG Clopidogrel Bisulfate 75 mg DAILY PO 05/06/24 10:00 05/06/24 09:41 75 MG Amlodipine Besylate 10 mg DAILY PO 05/06/24 10:00 Atorvastatin Calcium 80 mg HS PO 05/05/24 22:00 05/06/24 21:42 80 MG Patient Own Medication 1 tab DAILY PO 05/06/24 10:00 Gabapentin 800 mg BID PO 05/05/24 22:00 05/06/24 21:42 800 MG Isosorbide Mononitrate 30 mg DAILY PO 05/06/24 10:00 Levetiracetam 750 mg BID PO 05/05/24 22:00 05/06/24 21:42 750 MG Metoprolol Succinate 25 mg DAILY PO 05/06/24 10:00 Trazodone HCl 400 mg HS PO 05/05/24 22:00 05/05/24 23:03 400 MG Laboratory Results Laboratory Tests 05/06/24 08:42 Chemistry Test 05/06/24 08:42 Albumin 4.1 g/dL (3.2-4.8) Calcium Level 9.9 mg/dL (8.7-10.4) Total Protein 7.4 g/dL (5.7-8.2) LFT Test 05/06/24 08:42 Alanine Aminotransferase (ALT) 10 U/L (7-40) Alkaline Phosphatase 54 U/L (46-116) Aspartate Amino Transferase (AST) 12 U/L (13-40) L Total Bilirubin 0.4 mg/dL (0.2-1.0) Urinalysis Test 05/05/24 08:00 Urine Color Light-yellow (Yellow) Urine Clarity Clear (Clear) Urine pH 5.0 (5.0-9.0) Urine Specific [place] 1.013 (1.001-1.035) Urine Protein Negative (Negative) Urine Ketones Negative (Negative) Urine Blood Negative /uL (Negative) Urine Nitrite Negative (Negative) Urine Bilirubin Negative (Negative) Urine Urobilinogen Normal mg/dL (Negative) Urine Leukocyte Esterase Negative /uL (Negative) Urine RBC <1 /hpf (0 - 3) Urine Microscopic WBC < 1 /HPF (0-3) Urine Squamous Epithelial Cells None seen /hpf (<5) Urine Bacteria None seen /hpf (None Seen) Urine Hyaline Casts Mod /lpf (0 - 2) Urine Glucose 2+ mg/dL (Normal) H Labs and/or images reviewed: Labs reviewed by me, Image(s) reviewed by me Assessment/Plan Assessment/Plan Acute chest pain troponin normal, cardiology consult by Dr. Montesinos appreciated Acute on chronic systolic/diastolic congestive heart failure Lasix Acute kidney injury on chronic kidney disease History of CVA with right-sided deficits Use of home oxygen 3 liters/minute Coronary artery disease Acute COPD exacerbation Diabetes Depression Hypertension History of [place] History of TIA Cholesterol Morbidly obese Chronic pain syndrome: Patient says [place] is not working wants morphine: DC [place] start morphine Time taken 50 minutes Patient is full code Advanced care planning time 20 minutes Continue all home meds for comorbidities Plan discussed with: Patient Date of Service: May 07, 2024 Billing Provider: CYDNEY MCGARRY MD Common Visit Codes: [id number] INP/OBS CARE(HIGH) CYDNEY MCGARRY MD May 07, 2024 08:06
[2024-05-07] MEDS: MORPHINE SULFATE INJ 2 MG/ml SYRG IV PRN (09:07)
--- NOTE | 2024-05-07 15:32 | DVHPN2 ---
Progress Note - Dictate Date Seen: May 07, 2024 Medical Necessity Reason Pt with a Central, PICC or Fol: No Subjective Patient was seen and evaluated in follow up. Patient is on 3 LPM NC. Patient complains of generalized pain. 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 Telemetry reviewed. vital signs Vital Sign Date Time Temp Pulse Resp B/P (MAP) Pulse Ox O2 Delivery O2 Flow Rate FiO2 05/07/24 09:30 92 Nasal Cannula 3.0 05/07/24 09:30 32 05/07/24 09:07 67 20 103/48 05/07/24 09:00 97.7 97.7 Total Intake and Output 05/06/24 05/06/24 05/07/24 15:00 23:00 07:00 Intake Total 591 ml Output Total 550 ml Balance 41 ml medications Current Medications Medications Dose Ordered Sig/Yvette Route Start Time Stop Time Status Last Admin Dose Admin Ipratropium [place] 0.5 mg Q6HPRN PRN NEB 05/05/24 10:15 05/06/24 20:10 0.5 MG Sodium Chloride 10 ml Q8HR IV 05/05/24 14:00 05/07/24 05:37 10 ML Ondansetron HCl 4 mg Q4HP PRN IV 05/05/24 10:15 Morphine Sulfate 2 mg Q30M PRN IV 05/05/24 10:15 05/05/24 15:04 2 MG Furosemide 20 mg DAILY IV 05/06/24 10:00 05/07/24 09:05 20 MG Docusate Sodium 100 mg BIDPRN PRN PO 05/05/24 10:15 Acetaminophen 650 mg Q6HP PRN PO 05/05/24 10:15 Nitroglycerin 0.4 mg Q5MINP PRN SL 05/05/24 10:15 Albuterol 2.5 mg Q6HPRN PRN NEB 05/05/24 10:15 05/06/24 20:10 2.5 MG Aspirin 325 mg DAILY PO 05/06/24 10:00 05/07/24 09:05 325 MG Bupropion HCl 150 mg DAILY PO 05/06/24 10:00 05/07/24 09:05 150 MG Clopidogrel Bisulfate 75 mg DAILY PO 05/06/24 10:00 05/07/24 09:04 75 MG Amlodipine Besylate 10 mg DAILY PO 05/06/24 10:00 05/07/24 09:06 10 MG Atorvastatin Calcium 80 mg HS PO 05/05/24 22:00 05/06/24 21:42 80 MG Patient Own Medication 1 tab DAILY PO 05/06/24 10:00 Gabapentin 800 mg BID PO 05/05/24 22:00 05/07/24 09:04 800 MG Isosorbide Mononitrate 30 mg DAILY PO 05/06/24 10:00 Levetiracetam 750 mg BID PO 05/05/24 22:00 05/07/24 09:04 750 MG Metoprolol Succinate 25 mg DAILY PO 05/06/24 10:00 Trazodone HCl 400 mg HS PO 05/05/24 22:00 05/05/24 23:03 400 MG Morphine Sulfate 2 mg Q4HPRN PRN IV 05/07/24 08:15 05/07/24 09:07 2 MG objective GENERAL: Awake, alert, oriented. Morbidly obese. LUNGS: Clear. CARDIOVASCULAR: Heart sounds are good. ABDOMEN: Soft. laboratory and microbiology Laboratory Tests 05/06/24 08:42 Test 05/06/24 08:42 Range/Units Serum Glucose 83 74-106 mg/dL Problem List CHF exacerbation. Chest pain. Acute kidney injury on chronic kidney disease. COPD exacerbation. Acute on chronic systolic/diastolic congestive heart failure. History of CVA with right-sided deficits. CAD. Diabetes. Depression. Hypertension. History of [place]. Morbidly obese. Assessment/Plan Continued all current supportive medical care. Morphine and [place] for pain management. Aspirin, Lipitor, Metoprolol, Plavix. Diuretics with Lasix. Nitro SL. Additional plan as per the hospital course. Plan discussed with: Patient ROHINI ABARCA MD May 07, 2024 13:45
[2024-05-08] VITALS (13 sets, daily range): BP systolic 85–112; BP diastolic 38–58; PULSE 50–69; RESP 16–20; TEMP 97.4–98.4; O2SAT 97–100
[2024-05-08] MEDS: HYDROcodone-ACET 5/325MG TAB PO PRN (00:50)
[2024-05-08] MEDS ORDERED: HYDR-4798 PO (08:22)
--- NOTE | 2024-05-08 08:25 | DVHPN2 ---
Reviewed: Care Plan, H&P, Labs, Medications, Previous Orders, Radiology Changes from previous H/P or p: No Changes Eyes: No Pain, No Vision change, No Conjunctivae inflammation, No Eyelid inflammation, No Other, No Redness ENT: No Ear pain, No Ear discharge, No Nose pain, No Nose discharge, No Nose congestion, No Mouth pain, No Mouth swelling, No Throat pain, No Throat swelling, No Other Cardiovascular: Chest Pain; No Palpitations, No Orthopnea, No Paroxysmal Noc. Dyspnea, No Edema, No Lt Headedness, No Other Respiratory: No Cough, No Dry, No Shortness of breath, No SOB with excertion, No Wheezing, No Hemoptysis, No Pleuritic Pain, No Sputum, No Other Gastrointestinal: No Nausea, No Vomiting, No Abdominal Pain, No Diarrhea, No Constipation, No Melena, No Hematochezia, No Other Genitourinary: No Dysuria, No Frequency, No Incontinence, No Hematuria, No Retention, No Other Musculoskeletal: No other, No neck pain, No shoulder pain, No arm pain, No back pain, No hand pain, No leg pain, No foot pain Skin: No Rash, No Lesions, No Jaundice, No Bruising, No Other Objective Vitals Vital Signs Date Time Temp Pulse Resp B/P (MAP) Pulse Ox O2 Delivery O2 Flow Rate FiO2 05/08/24 07:00 59 99/49 (66) 05/08/24 05:00 98.3 19 99 98.3 05/08/24 00:39 Nasal Cannula* 2 28 Intake/Output Intake and Output 05/08/24 07:00 Intake Total 1145 ml Output Total 950 ml Balance 195 ml Intake Oral 1145 ml Output Urine Total 950 ml Medications Current Medications Medications Dose Ordered Sig/Yvette Route Start Time Stop Time Status Last Admin Dose Admin Ipratropium [place] 0.5 mg Q6HPRN PRN NEB 05/05/24 10:15 05/08/24 00:39 0.5 MG Sodium Chloride 10 ml Q8HR IV 05/05/24 14:00 05/08/24 06:00 10 ML Ondansetron HCl 4 mg Q4HP PRN IV 05/05/24 10:15 Morphine Sulfate 2 mg Q30M PRN IV 05/05/24 10:15 05/05/24 15:04 2 MG Docusate Sodium 100 mg BIDPRN PRN PO 05/05/24 10:15 Acetaminophen 650 mg Q6HP PRN PO 05/05/24 10:15 Nitroglycerin 0.4 mg Q5MINP PRN SL 05/05/24 10:15 Albuterol 2.5 mg Q6HPRN PRN NEB 05/05/24 10:15 05/08/24 00:39 2.5 MG Aspirin 325 mg DAILY PO 05/06/24 10:00 05/07/24 09:05 325 MG Bupropion HCl 150 mg DAILY PO 05/06/24 10:00 05/07/24 09:05 150 MG Clopidogrel Bisulfate 75 mg DAILY PO 05/06/24 10:00 05/07/24 09:04 75 MG Atorvastatin Calcium 80 mg HS PO 05/05/24 22:00 05/07/24 22:29 80 MG Patient Own Medication 1 tab DAILY PO 05/06/24 10:00 Gabapentin 800 mg BID PO 05/05/24 22:00 05/07/24 22:16 800 MG Isosorbide Mononitrate 30 mg DAILY PO 05/06/24 10:00 Levetiracetam 750 mg BID PO 05/05/24 22:00 05/07/24 22:28 750 MG Trazodone HCl 400 mg HS PO 05/05/24 22:00 05/05/24 23:03 400 MG Morphine Sulfate 2 mg Q4HPRN PRN IV 05/07/24 08:15 05/07/24 09:07 2 MG Acetaminophen/ Hydrocodone Bitart 1 tab Q6HPRN PRN PO 05/08/24 00:45 Laboratory Results Laboratory Tests 05/06/24 08:42 Urinalysis Test 05/05/24 08:00 Urine Color Light-yellow (Yellow) Urine Clarity Clear (Clear) Urine pH 5.0 (5.0-9.0) Urine Specific [place] 1.013 (1.001-1.035) Urine Protein Negative (Negative) Urine Ketones Negative (Negative) Urine Blood Negative /uL (Negative) Urine Nitrite Negative (Negative) Urine Bilirubin Negative (Negative) Urine Urobilinogen Normal mg/dL (Negative) Urine Leukocyte Esterase Negative /uL (Negative) Urine RBC <1 /hpf (0 - 3) Urine Microscopic WBC < 1 /HPF (0-3) Urine Squamous Epithelial Cells None seen /hpf (<5) Urine Bacteria None seen /hpf (None Seen) Urine Hyaline Casts Mod /lpf (0 - 2) Urine Glucose 2+ mg/dL (Normal) H Labs and/or images reviewed: Labs reviewed by me, Image(s) reviewed by me Assessment/Plan Assessment/Plan Acute chest pain troponin normal, cardiology consult by Dr. Montesinos appreciated Acute on chronic systolic/diastolic congestive heart failure Lasix Use of Home oxygen 3 liters/minute Acute kidney injury on chronic kidney disease History of CVA with right-sided deficits Use of home oxygen 3 liters/minute Coronary artery disease Acute COPD exacerbation Diabetes Depression Hypertension History of [place] History of TIA Cholesterol Morbidly obese Chronic pain syndrome: Patient feels better on 3 L of oxygen which is his usual requirement Time taken 45 minutes Patient is full code Continue all home meds for comorbidities Plan discussed with: Patient My Orders Orders - CYDNEY MCGARRY MD Procedure Category Date Status Time Apply Barrier Cream ELLIE 05/07/24 In Process 11:47 * Dietary Consult CONS 05/07/24 Transmitted 18:58 * Wound Consult CONS 05/07/24 Transmitted Date of Service: May 08, 2024 Billing Provider: CYDNEY MCGARRY MD Common Visit Codes: [id number] INP/OBS CARE(HIGH) CYDNEY MCGARRY MD May 08, 2024 08:24
--- NOTE | 2024-05-08 08:29 | DVHDS2 ---
Discharge Summary Date of Admission May 05, 2024 at 09:48 Date of Discharge: May 08, 2024 Admitting Diagnosis Shortness of breath Wounds: None Labs/Diagnostic Data: Laboratory Results Test 05/06/24 08:42 05/05/24 09:02 05/05/24 08:00 05/05/24 07:25 White Blood Count 6.2 10^3/uL (4.4-10.8) Red Blood Count 3.40 10^6/uL (4.5-5.90) Hemoglobin 10.5 g/dL (13.5-17.5) Hematocrit 31.9 % (41.0-53.0) Mean Corpuscular Volume 93.9 fL (80.0-100.0) Mean Corpuscular Hemoglobin 30.8 pg (28.0-32.0) Mean Corpuscular Hemoglobin Concent 32.8 g/dL (32.0-36.0) Red Cell Distribution Width 15.3 % (11.8-14.3) Platelet Count 178 10^3/uL (140-450) Mean Platelet Volume 10.5 fL (6.9-10.8) Neutrophils (%) (Auto) 51.1 % (37.0-80.0) Lymphocytes (%) (Auto) 34.7 % (10.0-50.0) Monocytes (%) (Auto) 6.4 % (0.0-12.0) Eosinophils (%) (Auto) 7.0 % (0.0-7.0) Basophils (%) (Auto) 0.8 % (0.0-2.0) Neutrophils # (Auto) 3.1 10 ^3/uL (1.6-8.6) Lymphocytes # (Auto) 2.1 10 ^3/uL (0.4-5.4) Monocytes # (Auto) 0.4 10 ^3/uL (0-1.3) Eosinophils # (Auto) 0.4 10 ^3/uL (0-0.8) Basophils # (Auto) 0.1 10 ^3/uL (0-0.2) Nucleated Red Blood Cells 0.0 % Sodium Level 145 mmol/L (136-145) Potassium Level 3.9 mmol/L (3.5-5.1) Chloride Level 109 mmol/L (98-107) Carbon Dioxide Level 29 mmol/L (20-31) Anion Gap 7 (5-15) Blood Urea Nitrogen 34 mg/dL (9-23) Creatinine 1.93 mg/dL (0.700-1.30) Glomerular Filtration Rate Calc 37 mL/min (>90) BUN/Creatinine Ratio 17.6 (10.0-20.0) Serum Glucose 83 mg/dL (74-106) Calcium Level 9.9 mg/dL (8.7-10.4) Total Bilirubin 0.4 mg/dL (0.2-1.0) Aspartate Amino Transferase (AST) 12 U/L (13-40) Alanine Aminotransferase (ALT) 10 U/L (7-40) Alkaline Phosphatase 54 U/L (46-116) Total Protein 7.4 g/dL (5.7-8.2) Albumin 4.1 g/dL (3.2-4.8) POC Glucose 107 mg/dl (70-106) Urine Color Light-yellow (Yellow) Urine Clarity Clear (Clear) Urine pH 5.0 (5.0-9.0) Urine Specific [place] 1.013 (1.001-1.035) Urine Protein Negative (Negative) Urine Ketones Negative (Negative) Urine Blood Negative /uL (Negative) Urine Nitrite Negative (Negative) Urine Bilirubin Negative (Negative) Urine Urobilinogen Normal mg/dL (Negative) Urine Leukocyte Esterase Negative /uL (Negative) Urine RBC <1 /hpf (0 - 3) Urine Microscopic WBC < 1 /HPF (0-3) Urine Squamous Epithelial Cells None seen /hpf (<5) Urine Bacteria None seen /hpf (None Seen) Urine Hyaline Casts Mod /lpf (0 - 2) Urine Glucose 2+ mg/dL (Normal) Platelet Estimate Decreased Clumped Platelets None Troponin I High Sensitivity 21 ng/L (</=54) B-Type Natriuretic Peptide 712.44 pg/mL (0-100) Other Laboratory Tests 05/06/24 08:42 Brief Hx & Hospital Course: Patient with multiple medical problems including chronic pain syndrome congestive heart failure use of home oxygen history of CVA with right-sided deficits coronary artery disease COPD diabetes hypertension depression [place] TIA cholesterol morbidly obese narcotic dependent comes in complaining of shortness of breaths and chest pain. Troponin negative cardiology consult by Dr. Montesinos patient was treated with Lasix for his CHF comorbid conditions addressed appropriately. Is on 2-3 L of oxygen which is his usual requirement at home. Being discharged home he will continue all his home meds and follow up with his primary Dr and Cardiology Dr. Camille Montesinos. General condition stable but poor at the time of discharge. Prescription for [place] transmitted to pharmacy Consults/Reason for consult Cardiology Dr. Montesinos Operations or Procedures None Condition at Discharge: Poor Final Diagnosis/Problems List Acute chest pain troponin normal, cardiology consult by Dr. Montesinos appreciated Acute on chronic systolic/diastolic congestive heart failure Lasix Use of Home oxygen 3 liters/minute Acute kidney injury on chronic kidney disease History of CVA with right-sided deficits Use of home oxygen 3 liters/minute Coronary artery disease Acute COPD exacerbation Diabetes Depression Hypertension History of [place] History of TIA Cholesterol Morbidly obese Chronic pain syndrome: Discharge Disposition: Home Discharge Instruct/Medications Diet: Cardiac 2g Na,low cholest Activity: Light activity Follow Up/Referral: Resume all previous home medications Follow up with the primary Dr Dr. Camille Montesinos Medications: [place] 10 Transmitted to [facility] 39 (Time taken for discharge summary 39 minutes) Discharge Statement: "Patient was advised to return to the ER or call 911 if any headaches, dizziness, shortness of breath, chest pain, abdominal pain, bleeding, fevers, or worsening of medical condition. Patient was counseled about treatment plan, medications, possible side effects, patientverbalized understanding. All questions were answered to the best of my ability. This discharge took greater then 30 minutes in planning, reviewing documentation, counseling the patient, and discussing with other team members." ASSESSMENT ASSESSMENT Hospital Course Marginally improved Assessment Acute chest pain troponin normal, cardiology consult by Dr. Montesinos appreciated Acute on chronic systolic/diastolic congestive heart failure Lasix Use of Home oxygen 3 liters/minute Acute kidney injury on chronic kidney disease History of CVA with right-sided deficits Use of home oxygen 3 liters/minute Coronary artery disease Acute COPD exacerbation Diabetes Depression Hypertension History of [place] History of TIA Cholesterol Morbidly obese Chronic pain syndrome: Date of Service: May 08, 2024 Billing Provider: CYDNEY MCGARRY MD Common Visit Codes: [id number] DISCH DAY >30min CYDNEY MCGARRY MD May 08, 2024 08:29
--- NOTE | 2024-05-08 23:45 | DVHPN2 ---
Progress Note - Dictate Date Seen: May 08, 2024 Medical Necessity Reason Pt with a Central, PICC or Fol: No Subjective Patient was seen and evaluated in follow up. Patient is on 2 LPM NC. Patient denies any cardiac symptoms. Patient is cardiac stable for discharge. Telemetry reviewed. vital signs Vital Sign Date Time Temp Pulse Resp B/P (MAP) Pulse Ox O2 Delivery O2 Flow Rate FiO2 05/08/24 09:59 94/38 05/08/24 09:00 97.6 67 16 99 97.6 05/08/24 08:00 Nasal Cannula* 2 28 Total Intake and Output 05/07/24 05/07/24 05/08/24 15:00 23:00 07:00 Intake Total 245 ml 900 ml Output Total 500 ml 450 ml Balance -255 ml 450 ml medications Current Medications Medications Dose Ordered Sig/Yvette Route Start Time Stop Time Status Last Admin Dose Admin Ipratropium [place] 0.5 mg Q6HPRN PRN NEB 05/05/24 10:15 05/08/24 00:39 0.5 MG Sodium Chloride 10 ml Q8HR IV 05/05/24 14:00 05/08/24 06:00 10 ML Ondansetron HCl 4 mg Q4HP PRN IV 05/05/24 10:15 Morphine Sulfate 2 mg Q30M PRN IV 05/05/24 10:15 05/05/24 15:04 2 MG Docusate Sodium 100 mg BIDPRN PRN PO 05/05/24 10:15 Acetaminophen 650 mg Q6HP PRN PO 05/05/24 10:15 Nitroglycerin 0.4 mg Q5MINP PRN SL 05/05/24 10:15 Albuterol 2.5 mg Q6HPRN PRN NEB 05/05/24 10:15 05/08/24 00:39 2.5 MG Aspirin 325 mg DAILY PO 05/06/24 10:00 05/08/24 09:52 325 MG Bupropion HCl 150 mg DAILY PO 05/06/24 10:00 05/08/24 09:53 150 MG Clopidogrel Bisulfate 75 mg DAILY PO 05/06/24 10:00 05/08/24 09:52 75 MG Atorvastatin Calcium 80 mg HS PO 05/05/24 22:00 05/07/24 22:29 80 MG Patient Own Medication 1 tab DAILY PO 05/06/24 10:00 Gabapentin 800 mg BID PO 05/05/24 22:00 05/08/24 09:53 800 MG Isosorbide Mononitrate 30 mg DAILY PO 05/06/24 10:00 Levetiracetam 750 mg BID PO 05/05/24 22:00 05/08/24 09:52 750 MG Trazodone HCl 400 mg HS PO 05/05/24 22:00 05/05/24 23:03 400 MG Morphine Sulfate 2 mg Q4HPRN PRN IV 05/07/24 08:15 05/07/24 09:07 2 MG Acetaminophen/ Hydrocodone Bitart 1 tab Q6HPRN PRN PO 05/08/24 00:45 objective GENERAL: Awake, alert, oriented. Morbidly obese. LUNGS: Clear. CARDIOVASCULAR: Heart sounds are good. ABDOMEN: Soft. laboratory and microbiology Laboratory Tests 05/06/24 08:42 Test 05/06/24 08:42 Range/Units Serum Glucose 83 74-106 mg/dL Problem List CHF exacerbation. Chest pain. Acute kidney injury on chronic kidney disease. COPD exacerbation. Acute on chronic systolic/diastolic congestive heart failure. History of CVA with right-sided deficits. CAD. Diabetes. Depression. Hypertension. History of [place]. Morbidly obese. Assessment/Plan Continued all current supportive medical care. Morphine and [place] for pain management. Aspirin, Lipitor, Metoprolol, Plavix. Diuretics with Lasix. Nitro SL. Additional plan as per the hospital course. Plan discussed with: Patient ROHINI ABARCA MD May 08, 2024 12:35
--- NOTE | 2024-05-09 15:24 | ECG ---
[facility] Test Date: 2024-05-08 Test Time: 16:00:51 Pat Name: NAVID SANCHEZ Department: Room: 0222T B Gender: M Hitcher: RADHA : 1955 Requested By: CYDNEY MCGARRY Order Number: [id number] Reading MD: Measurements Intervals [place] Rate: 58 P: 0 MT: 44 QRS: -36 QRSD: 185 T: 150 QT: 474 QTc: 466 Interpretive Statements Ventricular-paced complexes No further analysis attempted due to paced rhythm Please click the below link to view image of tracing.
== END 2024-05-08 19:57 | disposition home or self-care (01) | DRG 291 ==
LOC: ER 06:05 → EDBD 06:05 → OVERFLOW 09:48 → ER 09:51 → TELE-CENTR 23:42
PROVIDERS: ADMIT Family Medicine; ATTEND Family Medicine
PROC: 05HF33Z Insertion of Infusion Device into Left Cephalic Vein, Percutaneous Approach (ICD-10-PCS; principal; 2024-05-06)
PROC: B54NZZA Ultrasonography of Left Upper Extremity Veins, Guidance (ICD-10-PCS; 2024-05-06)
DX: I13.0 Hypertensive heart and chronic kidney disease with heart failure and stage 1 through stage 4 chronic kidney disease, or unspecified chronic kidney disease (principal); I50.43 Acute on chronic combined systolic (congestive) and diastolic (congestive) heart failure; N17.9 Acute kidney failure, unspecified; J44.1 Chronic obstructive pulmonary disease with (acute) exacerbation; Z68.42 Body mass index [BMI] 45.0-49.9, adult; N18.9 Chronic kidney disease, unspecified; F41.9 Anxiety disorder, unspecified; I25.10 Atherosclerotic heart disease of native coronary artery without angina pectoris; G89.4 Chronic pain syndrome; F32.A Depression, unspecified; E66.01 Morbid (severe) obesity due to excess calories; E11.22 Type 2 diabetes mellitus with diabetic chronic kidney disease; I69.398 Other sequelae of cerebral infarction; I25.2 Old myocardial infarction; Z83.3 Family history of diabetes mellitus; Z82.5 Family history of asthma and other chronic lower respiratory diseases; Z82.49 Family history of ischemic heart disease and other diseases of the circulatory system; Z82.3 Family history of stroke; Z81.8 Family history of other mental and behavioral disorders; Z79.82 Long term (current) use of aspirin; Z79.899 Other long term (current) drug therapy
CPT/HCPCS: 36415; 71045; 80048; 80053; 81001; 82962; 83880; 84484; 85025; 93005; 94640; 96374; 96375; 97110; 97163; 97530; 99291; G0378; J2405

== ENCOUNTER 2024-05-24 12:49 | Inpatient (IN) | payer BC, OTHER ==
[2024-05-24] VITALS (8 sets, daily range): BP systolic 111–118; BP diastolic 40–61; PULSE 54–108; RESP 12–19; TEMP 96.5–97.6; O2SAT 96–100
[~2024-05-24] VITALS: Ht 172.7 cm; Wt 149.4 kg
[~2024-05-24 12:49] MED LIST changes: +HYDR-4798 PO
[2024-05-24] MEDS ORDERED: levETIRAcetam 500 mg/100ml 100 ML IV ONE (13:15)
--- NOTE | 2024-05-24 13:16 | ED.PDOC ---
HPI Comments 69y F who presents to the ED via EMS for chief complaint of chest pain. - pt states he woke up this AM with chest pain at approx 0900 - pt states the chest pain was located by the center of his chest, rating the pain 10/10, radiating to the L shoulder, constant, pressure like in nature, with no associated exacerbating or relieving factors, - EMS arrived on scene and states pt was given 324 ASA and 0.4 nitro with pt stating no relief of symptoms after medications were given - pt has associated shortness of breath and swelling to the bilateral lower extremity but otherwise denies diaphoresis, palpitations, nausea, vomiting, headache, or dizziness - EMS states en route to the ED, pt had seizure which lasted 10 to 15 seconds with tonic clonic activity and pt was in post ictal afterwards as noted by EMS but is back to baseline upon ED arrival -pt has noted history of seizures and states he takes Keppra with which he is compliant - pt in the ED, is continuing to have chest pain and is noted to be on 02 via nasal canula with noted history of COPD - pt in the ED, notes is otherwise bedridden and noted by EMS to live with family - Pt otherwise denies any other symptoms at this time - Pt in the ED, states he was evaluated at [facility], [place] earlier this AM and discharged home and then called EMS while at private residence Patient did not take any of his medications this morning. Pt was discharged on 05/13 with the following discharge diagnoses: Acute chest pain troponin normal, cardiology consult by Dr. Montesinos appreciated Acute on chronic systolic/diastolic congestive heart failure Lasix Use of Home oxygen 3 liters/minute Acute kidney injury on chronic kidney disease History of CVA with right-sided deficits Use of home oxygen 3 liters/minute Coronary artery disease Acute COPD exacerbation Diabetes Depression Hypertension History of OH History of TIA Cholesterol Morbidly obese Chronic pain syndrome: Past medical history: 3x OH, COPD, HTN, AFIB, seizure disorder past surgical history: pacemaker Medications: Plavix, Keppra Allergies: nkda Social history: denies ETOH, denies tobacco use, denies drug use chest pain [place] HPI: Poor Historian. Chest pain Shortness of breath Possible seizure activity in route REVIEW OF SYSTEMS: CONSTITUTIONAL: Denies acute: fever, diaphoresis, chills, HEAD: Denies acute: headache, photophobia Eyes: Denies acute: Double vision, vision loss, eye pain, eye discharge. EARS: Denies acute: tinnitus, hearing loss, ear discharge, ear pain, THROAT: Denies acute: sore throat, swelling, difficulty swallowing , pain with swallow ing, change in voice. NECK: Denies acute: neck pain, neck swelling, stiff neck. HEART: Denies acute : palpitations, LUNGS: Denies acute: , wheezing, cough, hemoptysis ABDOMEN: Denies acute: abdominal pain, Nausea, Vomiting, diarrhea, melena , hematemesis, hematochezia SKIN: Denies acute: rash, redness, lesions, itchiness. EXTREMITIES: Denies acute: calf pain, weakness, Denies acute: Low back pain. Neuro: Denies acute: focal neurological deficit, motor or sensory focal neurological deficit, tremors, seizure like activity, confusion, dizziness, change in mental status, loss of bowel or bladder function, cauda equina like symptoms. : Denies acute: dysuria, hematuria, flank pain, increase in urinary frequency. PSYCH: Denies acute: hallucination, suicidal ideation, homicidal ideation. PHYSICAL EXAM: General: ----[id number]----acute distress, awake and alert. Head: normocephalic, atraumatic. Neck: supple, trachea is midline, no swelling. Throat: Normal phonation. Eyes:, no erythema, no purulent discharge, no proptosis, no icterus. Heart: regular rate, regular rhythm, no significant murmur appreciated. Lungs: no apparent respiratory distress, Able to speak in full sentences. No wheezing, no rhonchi, no crackles. No stridors Clear to auscultation bilaterally. Abdomen: non tender to palpation, non distended, soft, no guarding, no rebound, + bowel sounds. Obese Neuro: Awake, Alert, oriented to name, self, situation, follows commands GCS=15. Speech is normal. Skin: no petechia, no purpura, no cyanosis, non-pale, not jaundice. Lower extremities: --2/4 bilateral- Pitting edema no deformity, no focal swelling, no calf TTP. Makes eye contact. Patient is bed ridden Face: no apparent facial droop. ED COURSE: Time Seen by MD: 13:04 Primary Care Provider: unknown Reviewed Notes: Nurses Notes, Medications, Allergies Allergies: Coded Allergies: NO KNOWN ALLERGIES (Unverified , 10/04/22) Home Meds Active Scripts Hydrocodone-Acetaminophen (Hydrocodone Bitartrate/AC 10-325 mg) 1 Tab Tab, 1 TAB PO QID PRN, #30 TAB Prov:CYDNEY MCGARRY MD 05/08/24 Hydrocodone-Acetaminophen (Hydrocodone Bitartrate/AC 5-325 mg) 1 Tab Tab, 1 TAB PO Q6HP PRN, #15 TAB Prov:DANIEL OLIVAREZ MD 02/28/24 Ranolazine (Ranexa) 500 Mg Tab, 500 MG PO BID for 30 Days, #60 TAB Prov:JUSTIN DUARTE MD 10/22/18 Reported Medications Budesonide-Formoterol Fumarate (Budesonide/Formoterol Fum 160-4.5 Mcg/Act) 1 Aer Aer, 2 PUFF IN BID for 30 Days, #10.2 02/26/24 Midodrine HCl (Midodrine Hydrochloride) 5 Mg Tab, 1 TAB PO TID for 30 Days, #90 02/26/24 Potassium Chloride (Potassium Chloride ER) 10 Meq Tab, 1 TAB PO BID for 30 Days, #60 02/26/24 Furosemide (Furosemide) 40 Mg Tab, 0.5 TAB PO BID for 30 Days, #30 TAKE 1/2 TABLET (20 MG) BY MOUTH TWICE DAILY. 02/26/24 Aspirin (Aspirin Regular Strength) 325 Mg Tab, 1 TAB PO DAILY for 30 Days, #30 02/26/24 Lactulose (Lactulose) 10 Gm/15 Ml Rachna, 15 ML PO BID PRN for 15 Days, #473 02/26/24 Isosorbide Mononitrate (Isosorbide Mononitrate Er) 30 Mg Tab, 1 TAB PO DAILY for 30 Days, #30 02/26/24 Atorvastatin Calcium (Lipitor) 80 Mg Tab, 1 TAB PO DAILY for 30 Days, #30 02/26/24 Amlodipine Besylate (Amlodipine Besylate) 10 Mg Tab, 1 TAB PO DAILY for 30 Days, #30 02/26/24 Levetiracetam (Levetiracetam) 750 Mg Tab, 1 TAB PO BID for 30 Days, #60 02/26/24 Losartan Potassium (Losartan Potassium) 50 Mg Tab, 0.5 TAB PO DAILY for 30 Days, #15 TAKE 1/2 TABLET (25 MG) BY MOUTH DAILY. 02/26/24 Lidocaine (Lidocaine Topical Pain Pa) 4 % Pad, 1 PATCH TOP DAILY 06/28/23 Gabapentin (Gabapentin) 800 Mg Tab, 1 TAB PO BID for 30 Days, #60 06/28/23 Ipratropium-Albuterol (COMBIVENT RESPIMAT) Respimat Aer, 1 PUFF INH QID 05/14/23 Methocarbamol (Methocarbamol) 500 Mg Tab, 1.5 TAB PO Q8HR PRN for 8 Days, #40 05/14/23 Dapagliflozin Propanediol (Farxiga) 10 Mg Tab, 1 TAB PO DAILY for 30 Days, #30 05/14/23 Hydralazine Hcl (Hydralazine Hcl) 50 Mg Tab, 1 TAB PO TID PRN for 30 Days, #90 05/14/23 Beclomethasone Dipropionate (Qvar Redihaler) 80 Mcg/Act Aer, 1 PUFF INH BID for 30 Days, #10.6 02/27/23 Silver Sulfadiazine (Silver Sulfadiazine) 1 % Cre, 1 APPLIC TOP DAILY for 30 Day s, #50 02/27/23 Oxybutynin Chloride (Ditropan Xl) 5 Mg Tab, 15 MG PO DAILY for 30 Days, #30 02/27/23 Trazodone Hcl (Trazodone Hcl) 100 Mg Tab, 4 TAB PO HS for 30 Days, #120 02/27/23 Metoprolol Succinate (Metoprolol Succinate Er) 25 Mg Tab, 1 TAB PO DAILY for 30 Days, #30 02/27/23 Clopidogrel Bisulfate (CLOPIDOGREL) 75 Mg Tab, 1 TAB PO DAILY for 30 Days, #30 02/07/23 Pantoprazole Sodium Sesquihydr (Pantoprazole Sodium) 40 Mg Tab, 1 TAB PO QAM 02/07/23 Bupropion Hcl (Bupropion Hcl) 75 Mg Tab, 2 TAB PO DAILY for 30 Days, #60 11/10/17 Information Source: Patient Past Medical History PAST MEDICAL HISTORY: Angina, Anxiety, Asthma, CAD, CHF, CKF, COPD, CVA, Depression, DM, GERD, High Lipids, HTN, Liver, OH, MRSA, TIA, UTI'S Surgical History: Appendectomy, Cholecystectomy, PTCA, Thyroidectomy Family History Family History: Reviewed,noncontributory to illness, Unknown Social History Smoker: Unknown Alcohol: Unknown Drugs: Unknown Lives In: Home Was a procedure done? Was a procedure done?: No CP Differential Dx Differential Diagnosis: N/A Differential Diagnosis: Other (Ddx include but not limitied to gastritis, musculoskeletal pain, radiculopathy, atypical chest pain, dissection, aneurysm, ACS, unstable angina, hiatal hernia, GERD, anxiety, costochondritis, PE, pneumothroax, neoplasm, cardiac ischemia, drug abuse, anemia.) X-Ray, Labs, Meds, VS Vital Signs Date Time Temp Pulse Resp B/P (MAP) Pulse Ox O2 Delivery O2 Flow Rate FiO2 05/24/24 14:05 70 05/24/24 13:20 57 12 100 Nasal Cannula* 4 36 05/24/24 13:20 97.6 57 12 106/49 (68) 100 97.6 05/24/24 12:49 97.8 110 20 114/69 (84) 96 97.8 05/24/24 12:49 71 Lab Test 05/24/24 14:03 05/24/24 12:57 Range/Units Troponin I High Sensitivity 25 27 </=54 ng/L White Blood Count 6.3 4.4-10.8 10^3/uL Red Blood Count 3.35 L 4.5-5.90 10^6/uL Hemoglobin 10.2 L 13.5-17.5 g/dL Hematocrit 31.6 L 41.0-53.0 % Mean Corpuscular Volume 94.2 80.0-100.0 fL Mean Corpuscular Hemoglobin 30.5 28.0-32.0 pg Mean Corpuscular Hemoglobin Concent 32.3 32.0-36.0 g/dL Red Cell Distribution Width 14.7 H 11.8-14.3 % Platelet Count 137 L 140-450 10^3/uL Mean Platelet Volume 9.8 6.9-10.8 fL Neutrophils (%) (Auto) 51.6 37.0-80.0 % Lymphocytes (%) (Auto) 34.9 10.0-50.0 % Monocytes (%) (Auto) 6.9 0.0-12.0 % Eosinophils (%) (Auto) 6.0 0.0-7.0 % Basophils (%) (Auto) 0.6 0.0-2.0 % Neutrophils # (Auto) 3.3 1.6-8.6 10 ^3/uL Lymphocytes # (Auto) 2.2 0.4-5.4 10 ^3/uL Monocytes # (Auto) 0.4 0-1.3 10 ^3/uL Eosinophils # (Auto) 0.4 0-0.8 10 ^3/uL Basophils # (Auto) 0 0-0.2 10 ^3/uL Nucleated Red Blood Cells 0.0 % Sodium Level 142 136-145 mmol/L Potassium Level 4.0 3.5-5.1 mmol/L Chloride Level 112 H 98-107 mmol/L Carbon Dioxide Level 23 20-31 mmol/L Anion Gap 7 5-15 Blood Urea Nitrogen 32 H 9-23 mg/dL Creatinine 1.80 H 0.700-1.30 mg/dL Glomerular Filtration Rate Calc 40 >90 mL/min BUN/Creatinine Ratio 17.8 10.0-20.0 Serum Glucose 81 74-106 mg/dL Lactic Acid Level 1.1 0.4-2.0 mmol/L Calcium Level 10.0 8.7-10.4 mg/dL Total Bilirubin 0.4 0.2-1.0 mg/dL Aspartate Amino Transferase (AST) 23 13-40 U/L Alanine Aminotransferase (ALT) 24 7-40 U/L Alkaline Phosphatase 63 46-116 U/L B-Type Natriuretic Peptide 1006.32 0-100 pg/mL Total Protein 7.4 5.7-8.2 g/dL Albumin 3.9 3.2-4.8 g/dL [place] [address] Ph: [phone] DIAGNOSTIC IMAGING Diagnostic Imaging Report : [id number] Signed PATIENT: NAVID SANCHEZ ACCT: [id number] UNIT: [id number] : 1955 LOC: ER ROOM / BED: / AGE / SEX: 69 / M ADM STATUS: REG ER SERVICE 1253 ORDERING PHYSICIAN: FLETCHER FARRELL DO PROCEDURE(s): CXRP - CHEST PORTABLE REASON: cp ORDER NUMBER(s): [id number], ACCESSION NUMBER(s): [id number] EXAM: XR Chest, 1 View CLINICAL INDICATION: cp TECHNIQUE: Frontal view of the chest. COMPARISON: XY CHEST PORTABLE on DOS: 05/05/24, XY CHEST PORTABLE on DOS: 02/24/24, XY CHEST PORTABLE on DOS: 11/05/23, XY CHEST XRAY 1 VIEW on DOS: 07/04/23, XY CHEST XRAY 1 VIEW on DOS: 06/27/23 FINDINGS: LUNGS AND PLEURAL SPACES: See below. HEART: Cardiomegaly with mild congestion. MEDIASTINUM: Unremarkable. Normal mediastinal contour. BONES/JOINTS: Unremarkable. No acute fracture. OTHER FINDINGS: . IMPRESSION: Cardiomegaly with mild congestion. ATED BY: JAYDON CORTES MD DICTATED DATE/TIME: 05/24/24 1344 SIGNED BY: JAYDON CORTES MD SIGNED DATE/TIME: 05/24/24 1344 CC: Time of 1ST Reevaluation: 14:51 Reevaluation 1ST: Improved Time of 2ND Reevaluation: 14:51 (Patient is a difficult IV stick. Ultrasound guided IV access was attempted by nursing staff but was not successful.I therefore switched his medications to p.o. until we established IV access.) Reevaluation 2ND: Improved Patient Education/Counseling: Diagnosis, Treatment Family Education/Counseling: No Family Present Comments Patient presented with the above HPI.--cardiac----workup was initiated. patient was found with the above mentioned diagnosis. the following medications were ordered: please refer to order lists of meds and tests obtained by myself Dr. Farrell. Patient ED course and VS have been stabilized. Patient has been reassessed in the ED and remained in a stable condition. Pertinent incidental findings were discussed with the patient and/or family. Patient/family voices understanding and is agreeable with plan. Patient has been observed in the ED adequate length of time to insure improvement/stability. Escalation of care considered: Consideration of escalation to observation or admission Patient was ADMITTED to the medicine team for further evaluation and treatment of their presentation. . Patient has been a difficult IV stick. We tried with ultrasound at bedside. The ER nurse reported to the floor nurse and the floor nurse stated that they will try to establish IV access themselves. All the reports of any imaging studies that were ordered by myself were reviewed by myself. Departure 1 Departure Time of Disposition: 14:00 Impression: Primary Impression: Chest pain Additional Impressions: Dyspnea CHF exacerbation Disposition: ADMITTED INPATIENT Admit to: Tele Condition: Guarded Discharged With: Self Heart Score Heart Score: Heart Score Response (Comments) Value History Moderate Suspicious 1 EKG Normal 0 Age >65 2 Risk Factors >3 or Hx ASHD 2 Troponin Normal limit 0 Total 5 Critical Care Note Critical Care Time?: Yes (35 min-critical care time only) I personally scribed for FLETCHER FARRELL DO ([email or web address]) on 05/24/24 at 13:16. Electronically submitted by Chase Bass ([email or web address]). I personally scribed for FLETCHER FARRELL DO ([email or web address]) on 05/24/24 at 13:18. Electronically submitted by Chase Bass ([email or web address]). I personally scribed for FLETCHER FARRELL DO ([email or web address]) on 05/24/24 at 13:36. Electronically submitted by Chase Bass ([employer]). I personally scribed for FLETCHER FARRELL DO ([email or web address]) on 05/24/24 at 14:07. Electronically submitted by Chase Bass ([email or web address]). FLETCHER FARRELL DO May 24, 2024 13:16
[2024-05-24 13:21] LABS: Basophils # (auto) 0 10 ^3/uL (0-0.2); Basophils % (auto) 0.6 % (0.0-2.0); Eosinophils # (auto) 0.4 10 ^3/uL (0-0.8); Hematocrit 31.6 % (41.0-53.0); Hemoglobin 10.2 g/dL (13.5-17.5); Lymphocytes # (auto) 2.2 10 ^3/uL (0.4-5.4); Lymphocytes % (auto) 34.9 % (10.0-50.0); Mean Corpuscular Hemoglobin 30.5 pg (28.0-32.0); Mean Corpuscular Hgb Conc. 32.3 g/dL (32.0-36.0); Mean Corpuscular Volume 94.2 fL (80.0-100.0); Monocytes # (auto) 0.4 10 ^3/uL (0-1.3); Monocytes % (auto) 6.9 % (0.0-12.0); Neutrophils # (auto) 3.3 10 ^3/uL (1.6-8.6); Neutrophils % (auto) 51.6 % (37.0-80.0); Platelet Count (auto) 137 10^3/uL (140-450); Red Blood Cells 3.35 10^6/uL (4.5-5.90); Red Cell Distribution Width 14.7 % (11.8-14.3); White Blood Cell 6.3 10^3/uL (4.4-10.8)
[2024-05-24 13:42] LABS: Alanine Aminotransferase 24 U/L (7-40); Albumin 3.9 g/dL (3.2-4.8); Alkaline Phosphatase 63 U/L (46-116); Anion Gap 7 (5-15); Aspartate Aminotransferase 23 U/L (13-40); BUN/Creatinine Ratio 17.8 (10.0-20.0); Bilirubin, Total 0.4 mg/dL (0.2-1.0); Blood Urea Nitrogen 32 mg/dL (9-23); Carbon Dioxide 23 mmol/L (20-31); Chloride 112 mmol/L (98-107); Glucose 81 mg/dL (74-106); Sodium 142 mmol/L (136-145); Total Protein 7.4 g/dL (5.7-8.2)
--- NOTE | 2024-05-24 13:46 | DVH ---
EXAM: XR Chest, 1 View CLINICAL INDICATION: cp TECHNIQUE: Frontal view of the chest. COMPARISON: XY CHEST PORTABLE on DOS: 05/05/24, XY CHEST PORTABLE on DOS: 02/24/24, XY CHEST PORTABLE on DOS: 11/05/23, XY CHEST XRAY 1 VIEW on DOS: 07/04/23, XY CHEST XRAY 1 VIEW on DOS: 06/27/23 FINDINGS: LUNGS AND PLEURAL SPACES: See below. HEART: Cardiomegaly with mild congestion. MEDIASTINUM: Unremarkable. Normal mediastinal contour. BONES/JOINTS: Unremarkable. No acute fracture. OTHER FINDINGS: . IMPRESSION: Cardiomegaly with mild congestion.
[2024-05-24] MEDS ORDERED: DEXTROSE (50%) 50ML SYRG IV PRN (14:15)
[2024-05-24] MEDS ORDERED: NITROGLYCERIN 0.4 MG SL TAB SL PRN (14:15)
[2024-05-24] MEDS ORDERED: ACETAMINOPHEN 325 MG TAB PO PRN (14:15)
[2024-05-24] MEDS: levETIRAcetam 500 MG TAB PO ONE (14:32)
--- NOTE | 2024-05-24 14:38 | DVHHP2 ---
History of Present Illness Reason for Visit: Breakthrough seizure History of Present Illness This is a 69-year-old male with history of hypertension, hyperlipidemia, CAD, RI x3 stent, CHF, pacemaker, TIA with right-sided weakness, COPD on 3 L home oxygen, DM type 2, chronic pain syndrome takes [place] and morbid obesity presents to the ED with chief complaint of chest pain with jaw numbness that started yesterday. Evaluated patient in ER bed 2, describes chest pain as pressure in nature 10/10 on pain scale one through 10. The patient denied recent injury or trauma to his chest, reports similar symptoms in the past in which she had a heart attack. He states that his chest pain is different this time not as severe as when he had his heart attack in the past. The patient currently takes Plavix. He states that he did go to [facility] in which he was discharged sent back home and then EMR was notified to take the patient to a nearby hospital in which he came to [facility] as his symptoms did not improve. EMS states EN route to the ED he had a short episode of seizure-like activity that last 10-15 seconds with tonic-clonic activity. He does state history of seizure and currently takes Keppra in which he is compliant with all his medications. He is otherwise bed ridden and is under the care of his sister in home he lives with. He is concerned about his chest pain and would like to be further evaluated and treated. The patient will be admitted under hospitalist care to the telemetry unit for continuous monitoring. The patient denies fever, chills, headache, dizziness, palpitation, shortness of breath, nausea, vomiting, abdominal pain, diarrhea, constipation and other associated symptoms. The plan has been discussed with the patient and primary RN in which all questions concerns have been addressed. Cardiovascular: CAD, CHF, HTN, RI, hyperipidemia Pulmonary: COPD (3 L oxygen) CT TECHNICIAN: Seizure Endocrine: Diabetes Past Medical History History of TIA Chronic pain syndrome Morbid obesity Past Surgical History Pacemaker single lead V pacer Family History: None Smoke: No ALCOHOL: none Drugs: None Lives: with Family Domestic Violence: Neg Review of Systems Cardiovascular: Chest Pain Allergies: Coded Allergies: NO KNOWN ALLERGIES (Unverified , 10/04/22) Medications Current Medications Medications Dose Ordered Sig/Yvette Route Start Time Stop Time Status Last Admin Dose Admin Enoxaparin Sodium 40 mg DAILY SC 05/25/24 10:00 UNV Acetaminophen 650 mg Q6HP PRN PO 05/24/24 14:15 UNV Nitroglycerin 0.4 mg Q5MINP PRN SL 05/24/24 14:15 UNV Morphine Sulfate 2 mg Q30M PRN IV 05/24/24 14:15 UNV Aspirin 325 mg DAILY PO 05/25/24 10:00 UNV Bupropion HCl 150 mg DAILY PO 05/25/24 10:00 UNV Clopidogrel Bisulfate 75 mg DAILY PO 05/25/24 10:00 UNV Furosemide 20 mg BID PO 05/24/24 22:00 UNV Acetaminophen/ Hydrocodone Bitart 1 tab Q6HP PRN PO 05/24/24 14:15 UNV Losartan Potassium 25 mg DAILY PO 05/25/24 10:00 UNV Pantoprazole Sodium 40 mg QAM PO 05/25/24 07:00 UNV Ranolazine 500 mg BID PO 05/24/24 22:00 UNV Silver Sulfadiazine 1 applic DAILY TOP 05/25/24 10:00 UNV Patient Own Medication 1 tab DAILY PO 05/25/24 10:00 UNV Patient Own Medication 1 tab DAILY PO 05/25/24 10:00 UNV Patient Own Medication 1 tab DAILY PO 05/25/24 10:00 UNV Patient Own Medication 1 tab BID PO 05/24/24 22:00 UNV Patient Own Medication 1 tab TID PRN PO 05/24/24 14:15 UNV Patient Own Medication 1 tab DAILY PO 05/25/24 10:00 UNV Patient Own Medication 1 tab BID PO 05/24/24 22:00 UNV Patient Own Medication 1 tab DAILY PO 05/25/24 10:00 UNV Patient Own Medication 15 mg DAILY PO 05/25/24 10:00 UNV Diagnostic Test (Pha) 1 strip ACHS 05/24/24 17:00 UNV Insulin Human Regular ACHS SC 05/24/24 17:00 UNV Dextrose 50 ml UD PRN IV 05/24/24 14:15 UNV Exam Vital Signs Vital Signs Date Time Temp Pulse Resp B/P (MAP) Pulse Ox O2 Delivery O2 Flow Rate FiO2 05/24/24 14:05 70 05/24/24 13:20 12 100 Nasal Cannula* 4 36 05/24/24 13:20 97.6 106/49 (68) 97.6 General Appearance: Alert, Oriented X3, Cooperative, No acute distress HEENT: Atraumatic, PERRLA, Mucous membr. moist/pink Respiratory: Clear to auscultation (Diminished to bilateral lower lung torres), Other Cardiovascular: Other (V paced) Abdominal: Normal bowel sounds, Soft, No tenderness, No hepatospenomegaly, No masses Extremities: No clubbing, No cyanosis, Normal pulses, No tenderness/swelling, Other (2+ edema to bilateral lower extremity) Skin: No rashes Neuro: Normal speech, Strength at 5/5 X4 ext (Right-sided weakness), Sensation intact, Other (Bed ridden) Psych/Mental Status: Mental status NL Labs/Xrays Labs Test 05/24/24 14:03 05/24/24 12:57 Range/Units White Blood Count 6.3 4.4-10.8 10^3/uL Red Blood Count 3.35 L 4.5-5.90 10^6/uL Hemoglobin 10.2 L 13.5-17.5 g/dL Hematocrit 31.6 L 41.0-53.0 % Mean Corpuscular Volume 94.2 80.0-100.0 fL Mean Corpuscular Hemoglobin 30.5 28.0-32.0 pg Mean Corpuscular Hemoglobin Concent 32.3 32.0-36.0 g/dL Red Cell Distribution Width 14.7 H 11.8-14.3 % Platelet Count 137 L 140-450 10^3/uL Mean Platelet Volume 9.8 6.9-10.8 fL Neutrophils (%) (Auto) 51.6 37.0-80.0 % Lymphocytes (%) (Auto) 34.9 10.0-50.0 % Monocytes (%) (Auto) 6.9 0.0-12.0 % Eosinophils (%) (Auto) 6.0 0.0-7.0 % Basophils (%) (Auto) 0.6 0.0-2.0 % Neutrophils # (Auto) 3.3 1.6-8.6 10 ^3/uL Lymphocytes # (Auto) 2.2 0.4-5.4 10 ^3/uL Monocytes # (Auto) 0.4 0-1.3 10 ^3/uL Eosinophils # (Auto) 0.4 0-0.8 10 ^3/uL Basophils # (Auto) 0 0-0.2 10 ^3/uL Nucleated Red Blood Cells 0.0 % Sodium Level 142 136-145 mmol/L Potassium Level 4.0 3.5-5.1 mmol/L Chloride Level 112 H 98-107 mmol/L Carbon Dioxide Level 23 20-31 mmol/L Anion Gap 7 5-15 Blood Urea Nitrogen 32 H 9-23 mg/dL Creatinine 1.80 H 0.700-1.30 mg/dL Glomerular Filtration Rate Calc 40 >90 mL/min BUN/Creatinine Ratio 17.8 10.0-20.0 Serum Glucose 81 74-106 mg/dL Lactic Acid Level 1.1 0.4-2.0 mmol/L Calcium Level 10.0 8.7-10.4 mg/dL Total Bilirubin 0.4 0.2-1.0 mg/dL Aspartate Amino Transferase (AST) 23 13-40 U/L Alanine Aminotransferase (ALT) 24 7-40 U/L Alkaline Phosphatase 63 46-116 U/L B-Type Natriuretic Peptide 1006.32 0-100 pg/mL Total Protein 7.4 5.7-8.2 g/dL Albumin 3.9 3.2-4.8 g/dL ORDERING PHYSICIAN: FLETCHER FARRELL DO PROCEDURE(s): CXRP - CHEST PORTABLE REASON: cp ORDER NUMBER(s): [id number], ACCESSION NUMBER(s): [id number] EXAM: XR Chest, 1 View CLINICAL INDICATION: cp TECHNIQUE: Frontal view of the chest. COMPARISON: XY CHEST PORTABLE on DOS: 05/05/24, XY CHEST PORTABLE on DOS: 02/24/24, XY CHEST PORTABLE on DOS: 11/05/23, XY CHEST XRAY 1 VIEW on DOS: 07/04/23, XY CHEST XRAY 1 VIEW on DOS: 06/27/23 FINDINGS: LUNGS AND PLEURAL SPACES: See below. HEART: Cardiomegaly with mild congestion. MEDIASTINUM: Unremarkable. Normal mediastinal contour. BONES/JOINTS: Unremarkable. No acute fracture. OTHER FINDINGS: . IMPRESSION: Cardiomegaly with mild congestion. ATED BY: JAYDON CORTES MD DICTATED DATE/TIME: 05/24/24 1344 SIGNED BY: JAYDON CORTES MD SIGNED DATE/TIME: 05/24/24 2134 Assessment/Plan Assessment/Plan Breakthrough seizure --chief complaint chest pain pressure-like in nature, 11/28 with jaw numbness that started today; EN route to deviate ED patient had seizure activity lasting 10-15 seconds Last seizure according to patient occurred few months ago; is compliant on Keppra IV Keppra given in the ER 324 mg aspirin and 0.4 nitro was given by EMS personnel Patient currently on 3 L nasal cannula oxygen with SpO2 greater than 92% Admit to telemetry unit for continuous monitoring Reviewed CBC which is normal Reviewed BMP Chest x-ray shows cardiomegaly with mild congestion Troponin negative x1 pending 2nd result Reviewed 12 lead EKG shows V pacing Aspirin daily Resume Keppra p.o. as prescribed Seizure precaution Keppra level pending UDS pending We will consider to consult neurologist if further evaluation and recommendation as needed Type 2 DM -controlled HGB A1c --5.1 1800 ADA diet Mild insulin a.c. and HS Accu-Cheks per protocol Chronic pain syndrome Continue prescribed [place] for pain Hypertension Reconcile home medication and continue antihypertensive Hold midodrine Continue to monitor BP CHF BNP 1 006.32 IV Lasix 20 mg daily Repeat BNP in a.m. Echocardiogram shows EF of 70% on 02/25/2024 COPD --controlled 3 L home oxygen and currently on 3 L Albuterol q.2h p.r.n. shortness of breath DuoNeb q.4 hours Morbid obesity Lipid panel Lifestyle modification counseling Hyperlipidemia Continue statin as prescribed Reconcile home medication DVT prophylaxis PUD prophylaxis Labs in a.m. Discussed plan of care with the patient and primary RN in which all questions concerns have been addressed Plan discussed with: Patient My Orders Orders - BURKE SANTOS BONE GRINDER Procedure Category Date Status Time Admit ADMIT 05/24/24 Transmitted 14:07 Enoxaparin Sodium PHA 05/25/24 Logged (Lovenox) 10:00 Complete Blood Count LAB 05/25/24 Verified 04:00 Comprehensive LAB 05/25/24 Verified Metabolic Panel 04:00 Echo 2d Mode Cardiac US 05/24/24 Logged DOP 14:07 Condition: Fair ELLIE 05/24/24 In Process 14:07 Acetaminophen Tablet PHA 05/24/24 Logged (Tylenol Tablet) 14:15 Maintain Bed Rest ELLIE 05/24/24 In Process 14:07 Nitroglycerin PHA 05/24/24 Logged Sublingual (Ntrostat 14:15 Morphine Sulfate PHA 05/24/24 Logged Injection 14:15 Stat Ekg For Chest ELLIE 05/24/24 In Process Pain 14:07 Notify Of Changes [facility] 05/24/24 In Process From Base 14:07 Nursery Nurse For [facility] 05/24/24 In Process 24 Hours 14:07 Emergency Dysrhythmia [facility] 05/24/24 In Process Protocol 14:07 Rhythm Strips Once [facility] 05/24/24 In Process Every Shift 14:07 Oxygen By Nasal RT 05/24/24 Transmitted Cannula 14:07 Seizure Precautions ED NURSING 05/24/24 Transmitted Aspirin Enteric PHA 05/25/24 Logged Coated Tablet 10:00 Bupropion Tablet PHA 05/25/24 Logged (Wellbutrin Tablet) 10:00 Clopidogrel Bisulfate PHA 05/25/24 Logged (Plavix) 10:00 Furosemide Tablet PHA 05/24/24 Logged (Lasix Tablet) 22:00 Hydrocodone-Acet PHA 05/24/24 Logged 5/325mg Tab ([place] 14:15 Losartan Tablet PHA 05/25/24 Logged (Cozaar Tablet) 10:00 Pantoprazole Tablet PHA 05/25/24 Logged (Protonix Tablet) 07:00 Ranolazine (Ranexa Er) PHA 05/24/24 Logged 22:00 Silver Sulfadiazine PHA 05/25/24 Logged (Silvadene) 10:00 (Nf) Amlodipine PHA 05/25/24 Logged Besylate 10:00 (Nf) Atorvastatin PHA 05/25/24 Logged Calcium (Lipitor) 10:00 (Nf) Dapagliflozin PHA 05/25/24 Logged Propanediol (Farxiga) 10:00 (Nf) Gabapentin PHA 05/24/24 Logged 22:00 (Nf) Hydralazine Hcl PHA 05/24/24 Logged 14:15 (Nf) Isosorbide PHA 05/25/24 Logged Mononitrate 10:00 (Nf) Levetiracetam PHA 05/24/24 Logged 22:00 (Nf) Metoprolol PHA 05/25/24 Logged Succinate (Metoprolol 10:00 (Nf) Oxybutynin PHA 4/6/25 Logged Chloride (Ditropan Xl) 10:00 2 Gm Sodium Diet DIET 05/24/24 Transmitted Dinner Glucose Blood PHA 05/24/24 Logged (Accu-Chek Comfort 17:00 Insulin R (Human) PHA 05/24/24 Logged (Insulin R) 17:00 Dextrose 50% Syringe PHA 05/24/24 Logged 14:15 Date of Service: May 24, 2024 Billing Provider: BURKE SANTOS Common Visit Codes: [id number] INP/OBS CARE (HIGH) UBRKE SANTOS May 24, 2024 14:38
[2024-05-24] MEDS ORDERED: ALBUTEROL SULF 2.5 MG/0.5ML(0.5%) NEB SOLN NEB PRN (14:45)
[2024-05-24] MEDS: FUROSEMIDE 20 MG TAB PO ONE (15:19)
[2024-05-24] MEDS ORDERED: hydrALAZINE HCL 25 MG TAB PO PRN (16:45)
[2024-05-24] MEDS: ACCU-CHEK COMFORT CURVE STRIP VI SCH (17:00)
[2024-05-24] MEDS: InsuLIN REG 1unit/0.01ml Soln (100units/ml) SC SCH (17:00)
[2024-05-24] MEDS: ALBUTEROL SULF 2.5 MG/0.5ML(0.5%) NEB SOLN NEB SCH (19:10)
--- NOTE | 2024-05-24 19:14 | ECG ---
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
--- NOTE | 2024-05-24 19:14 | ECG ---
[facility] Test Date: 2024-05-24 Test Time: 14:05:05 Pat Name: NAVID SANCHEZ Department: ED Room: [facility]7T B Gender: M Psychiatric [employer]ides Teacher: SPENCER : 1955 Requested By: FLETCHER FARRELL Order Number: [id number] Reading MD: Som Vásquez Measurements Intervals [place] Rate: 70 P: 0 IN: 44 QRS: -80 QRSD: 198 T: 90 QT: 461 QTc: 498 Interpretive Statements Ventricular-paced complexes No further analysis attempted due to paced rhythm Electronically Signed On 05-25-2024 15:11:31 PDT by Som Vásquez Please click the below link to view image of tracing.
[2024-05-24] MEDS: RANOLAZINE ER 500 MG TAB PO SCH (21:17)
[2024-05-24] MEDS: GABAPENTIN 400 MG CAP PO SCH (21:17)
[2024-05-24] MEDS: levETIRAcetam 500 MG TAB PO SCH (21:17)
[2024-05-24] MEDS ORDERED: FUROSEMIDE 40 MG TAB PO SCH (22:00)
[2024-05-24] MEDS: HYDROcodone-ACET 5/325MG TAB PO PRN (23:42)
[2024-05-25] VITALS (17 sets, daily range): BP systolic 80–105; BP diastolic 41–58; PULSE 50–79; RESP 16–20; TEMP 96–98.2; O2SAT 91–100
[2024-05-25] MEDS: HYDROcodone-ACET 5/325MG TAB PO ONE (00:25)
[2024-05-25] MEDS: MORPHINE SULFATE INJ 2 MG/ml SYRG IV PRN (04:46)
[2024-05-25] MEDS: PANTOPRAZOLE 40 MG TAB PO SCH (06:27)
[2024-05-25] MEDS: IPRATROPIUM BROM 0.5 MG/2.5ML INH SOL NEB SCH (06:30)
[2024-05-25] MEDS: ALBUTEROL SULF 2.5 MG/0.5ML(0.5%) NEB SOLN NEB SCH (06:30)
[2024-05-25 06:50] LABS: Basophils # (auto) 0 10 ^3/uL (0-0.2); Basophils % (auto) 0.8 % (0.0-2.0); Eosinophils # (auto) 0.5 10 ^3/uL (0-0.8); Eosinophils % (auto) 7.2 % (0.0-7.0); Hematocrit 32.7 % (41.0-53.0); Hemoglobin 10.6 g/dL (13.5-17.5); Lymphocytes # (auto) 1.8 10 ^3/uL (0.4-5.4); Lymphocytes % (auto) 29.2 % (10.0-50.0); Mean Corpuscular Hemoglobin 30.6 pg (28.0-32.0); Mean Corpuscular Hgb Conc. 32.4 g/dL (32.0-36.0); Mean Corpuscular Volume 94.4 fL (80.0-100.0); Monocytes # (auto) 0.5 10 ^3/uL (0-1.3); Monocytes % (auto) 7.4 % (0.0-12.0); Neutrophils # (auto) 3.5 10 ^3/uL (1.6-8.6); Neutrophils % (auto) 55.4 % (37.0-80.0); Nucleated Red Blood Cells % 0.1 %; Platelet Count (auto) 134 10^3/uL (140-450); Red Blood Cells 3.47 10^6/uL (4.5-5.90); Red Cell Distribution Width 14.7 % (11.8-14.3); White Blood Cell 6.3 10^3/uL (4.4-10.8)
[2024-05-25 07:13] LABS: Alanine Aminotransferase 21 U/L (7-40); Albumin 3.8 g/dL (3.2-4.8); Alkaline Phosphatase 59 U/L (46-116); Anion Gap 8 (5-15); Aspartate Aminotransferase 23 U/L (13-40); BUN/Creatinine Ratio 19.3 (10.0-20.0); Bilirubin, Total 0.5 mg/dL (0.2-1.0); Blood Urea Nitrogen 32 mg/dL (9-23); Calcium 9.9 mg/dL (8.7-10.4); Carbon Dioxide 25 mmol/L (20-31); Chloride 109 mmol/L (98-107); Glucose 82 mg/dL (74-106); Potassium 4.1 mmol/L (3.5-5.1); Sodium 142 mmol/L (136-145); Total Protein 7.2 g/dL (5.7-8.2)
[2024-05-25] MEDS: Dapagliflozin Propanediol (Farxiga) 10MG TABLETS PO SCH (10:00)
[2024-05-25] MEDS: SILVER SULFADIAZINE 1 % TOPICAL CREAM 50GM TOP SCH (10:00)
[2024-05-25] MEDS: OXYBUTYNIN CHLORIDE 15 MG PO SCH (10:00)
[2024-05-25] MEDS: FUROSEMIDE 20 MG/2 ML VIAL IV SCH (11:54)
[2024-05-25] MEDS: CLOPIDOGREL BISULFATE 75 MG TAB PO SCH (11:55)
[2024-05-25] MEDS: LOSARTAN POTASSIUM 50 MG TAB PO SCH (11:55)
[2024-05-25] MEDS: ENOXAPARIN SOD 40 MG/0.4 ML SYRINGE SC SCH (11:56)
[2024-05-25] MEDS: buPROPion HCL 75 MG TAB PO SCH (11:57)
[2024-05-25] MEDS: ISOSORBIDE MONONITRATE ER 60 MG TAB PO SCH (11:58)
[2024-05-25] MEDS: ASPirin-EC 325mg tab PO SCH (12:12)
[2024-05-25] MEDS: amLODIPine BESYLATE 5 MG TAB PO SCH (14:50)
[2024-05-25] MEDS: METOPROLOL SUCCINATE XL 50 MG TAB PO SCH (14:52)
--- NOTE | 2024-05-25 16:01 | DVHPN2 ---
Assessment/Plan Assessment/Plan progress note 69 M with HTN, CAD s/p DESTINY x3, HFpEF, bed bound, CVA with right residual, COPD group E on home O2, NIDDM, chronic pain admitted for chest pain. seen today during rounds, active chest pain physical exam aox3 morbidly obese clear breath s1 s2 rrr muffled abdomen tender no le edema R side residual labs ekg imaging reviewed assessment and plan acute on chronic hypoxic RF acute on chronic diastolic HF CAD s/p DESTINY x5 s/p PPM HFpEF 70% afib CVA w/ right residual COPD group E on home O2 with exacerbation NIDDM chronic pain KOLE VMN on CKD Seizure? morbid obesity resume GDMT lasix maintain net -500 ISS resume home meds ceft and azithro prednisone breathing tx resume asa plavix eliquis trend trop repeat echo aspiration precaution diet cardiac dvt ppx on eliquis full code Plan discussed with: Patient My Orders Orders - BK LAGUERRE MD Procedure Category Date Status Time Apply Barrier Cream ELLIE 05/25/24 In Process 11:51 Complete Blood Count LAB 05/26/24 Verified 04:00 Comprehensive LAB 05/26/24 Verified Metabolic Panel 04:00 Magnesium LAB 05/26/24 Verified 04:00 Phosphorus LAB 05/26/24 Verified 04:00 Troponin-I Hs LAB 05/25/24 Logged 15:57 Prednisone Tablet PHA 05/26/24 Verified 10:00 Prednisone Tablet PHA 05/25/24 Verified 16:00 Date of Service: May 25, 2024 Billing Provider: BK LAGUERRE MD Common Visit Codes: [id number] INP/OBS CARE(HIGH) BK LAGUERRE MD May 25, 2024 16:01
--- NOTE | 2024-05-25 16:12 | DVHINCON2 ---
Date Seen: May 25, 2024 Referring Physician Red Reason for Consultation Chest Pain History of Present Illness 69-year-old male with PMH for diastolic HF, [place], CKD, COPD, CVA, bed-bound, HTN, HLD, diabetes, CAD s/p PCI, WAQAR, carotid stenosis, seizure disorder, thyroidectomy, bradycardia, SSS s/p implantation of leadless MICRA ppm presents to the hospital chest pain jaw knows. Chest pain noted to be pressure in nature , retrosternal, nonradiating,. Patient states that he has been having chronic episodes of chest pain intermittently and setting multiple angiograms in the past previous stents. Patient was recently admitted to [facility] and was discharged. Apparently patient was called and told to return due to positive blood cultures and came to [facility]. Denies any seizure activity though per chart review EMS reported in route to ED patient having seizure-like activity lasting around 10-15 seconds. Troponin negative x4. BNP 695. Initial creatinine 1.8 trending down at 1.66. CXR showing cardiomegaly with mild congestion. EKG reviewed and shows atrial flutter/fib with V paced complexes at 58 beats per minute. Past Medical History As stated above Past Surgical History As stated above Family History: Alcoholism G8 MOTHER, Onset:Unknown Cancer G8 SISTER (uterine cancer) Cardiovascular disease G8 SISTER Cerebrovascular accident (CVA) G8 BROTHER Chronic obstructive pulmonary disease G8 SISTER Depression G8 SISTER Diabetes mellitus G8 SISTER G8 SISTER Family history: Cardiovascular disease Family history: Depression (situation) Family history: Hypertension Family history: Hypertension Glaucoma MATERNAL GPA Sepsis Stroke Stroke Social History Denies alcohol, tobacco, or illicit drug use. Allergies: Coded Allergies: NO KNOWN ALLERGIES (Unverified , 10/04/22) Home Meds Active Scripts Hydrocodone-Acetaminophen (Hydrocodone Bitartrate/AC 10-325 mg) 1 Tab Tab, 1 TAB PO QID PRN, #30 TAB Prov:CYDNEY MCGARRY MD 05/08/24 Hydrocodone-Acetaminophen (Hydrocodone Bitartrate/AC 5-325 mg) 1 Tab Tab, 1 TAB PO Q6HP PRN, #15 TAB Prov:DANIEL OLIVAREZ MD 02/28/24 Ranolazine (Ranexa) 500 Mg Tab, 500 MG PO BID for 30 Days, #60 TAB Prov:JUSTIN DUARTE MD 10/22/18 Reported Medications Budesonide-Formoterol Fumarate (Budesonide/Formoterol Fum 160-4.5 Mcg/Act) 1 Aer Aer, 2 PUFF IN BID for 30 Days, #10.2 02/26/24 Midodrine HCl (Midodrine Hydrochloride) 5 Mg Tab, 1 TAB PO TID for 30 Days, #90 02/26/24 Potassium Chloride (Potassium Chloride ER) 10 Meq Tab, 1 TAB PO BID for 30 Days, #60 02/26/24 Furosemide (Furosemide) 40 Mg Tab, 0.5 TAB PO BID for 30 Days, #30 TAKE 1/2 TABLET (20 MG) BY MOUTH TWICE DAILY. 02/26/24 Aspirin (Aspirin Regular Strength) 325 Mg Tab, 1 TAB PO DAILY for 30 Days, #30 02/26/24 Lactulose (Lactulose) 10 Gm/15 Ml Rachna, 15 ML PO BID PRN for 15 Days, #473 02/26/24 Isosorbide Mononitrate (Isosorbide Mononitrate Er) 30 Mg Tab, 1 TAB PO DAILY for 30 Days, #30 02/26/24 Atorvastatin Calcium (Lipitor) 80 Mg Tab, 1 TAB PO DAILY for 30 Days, #30 02/26/24 Amlodipine Besylate (Amlodipine Besylate) 10 Mg Tab, 1 TAB PO DAILY for 30 Days, #30 02/26/24 Levetiracetam (Levetiracetam) 750 Mg Tab, 1 TAB PO BID for 30 Days, #60 02/26/24 Losartan Potassium (Losartan Potassium) 50 Mg Tab, 0.5 TAB PO DAILY for 30 Days, #15 TAKE 1/2 TABLET (25 MG) BY MOUTH DAILY. 02/26/24 Lidocaine (Lidocaine Topical Pain Pa) 4 % Pad, 1 PATCH TOP DAILY 06/28/23 Gabapentin (Gabapentin) 800 Mg Tab, 1 TAB PO BID for 30 Days, #60 06/28/23 Ipratropium-Albuterol (COMBIVENT RESPIMAT) Respimat Aer, 1 PUFF INH QID 05/14/23 Methocarbamol (Methocarbamol) 500 Mg Tab, 1.5 TAB PO Q8HR PRN for 8 Days, #40 05/14/23 Dapagliflozin Propanediol (Farxiga) 10 Mg Tab, 1 TAB PO DAILY for 30 Days, #30 05/14/23 Hydralazine Hcl (Hydralazine Hcl) 50 Mg Tab, 1 TAB PO TID PRN for 30 Days, #90 05/14/23 Beclomethasone Dipropionate (Qvar Redihaler) 80 Mcg/Act Aer, 1 PUFF INH BID for 30 Days, #10.6 02/27/23 Silver Sulfadiazine (Silver Sulfadiazine) 1 % Cre, 1 APPLIC TOP DAILY for 30 Days, #50 02/27/23 Oxybutynin Chloride (Ditropan Xl) 5 Mg Tab, 15 MG PO DAILY for 30 Days, #30 02/27/23 Trazodone Hcl (Trazodone Hcl) 100 Mg Tab, 4 TAB PO HS for 30 Days, #120 02/27/23 Metoprolol Succinate (Metoprolol Succinate Er) 25 Mg Tab, 1 TAB PO DAILY for 30 Days, #30 02/27/23 Clopidogrel Bisulfate (CLOPIDOGREL) 75 Mg Tab, 1 TAB PO DAILY for 30 Days, #30 02/07/23 Pantoprazole Sodium Sesquihydr (Pantoprazole Sodium) 40 Mg Tab, 1 TAB PO QAM 02/07/23 Bupropion Hcl (Bupropion Hcl) 75 Mg Tab, 2 TAB PO DAILY for 30 Days, #60 11/10/17 Current Medications Current Medications Medications (Trade) Dose Ordered Sig/Yvette Route PRN Reason Start Time Stop Time Status Last Admin Enoxaparin Sodium (Lovenox) 40 mg DAILY SC 05/25/24 10:00 05/25/24 11:56 Aspirin (Ecotrin Enteric Coated Tablet) 325 mg DAILY PO 05/25/24 10:00 05/25/24 12:12 Bupropion HCl (Wellbutrin Tablet) 150 mg DAILY PO 05/25/24 10:00 05/25/24 11:57 Clopidogrel Bisulfate (Plavix) 75 mg DAILY PO 05/25/24 10:00 05/25/24 11:55 Furosemide (Lasix Tablet) 20 mg BID PO 05/24/24 22:00 05/24/24 14:47 DC Losartan Potassium (Cozaar Tablet) 25 mg DAILY PO 05/25/24 10:00 05/25/24 11:55 Pantoprazole Sodium (Protonix Tablet) 40 mg QAM PO 05/25/24 07:00 05/25/24 06:27 Ranolazine (Ranexa ER) 500 mg BID PO 05/24/24 22:00 05/25/24 11:58 Silver Sulfadiazine (Silvadene) 1 applic DAILY TOP 05/25/24 10:00 Amlodipine Besylate (Norvasc Tablet) 10 mg DAILY PO 05/25/24 10:00 Atorvastatin Calcium (Lipitor) 80 mg HS PO 05/25/24 22:00 Patient Own Medication 1 tab DAILY PO 05/25/24 10:00 Gabapentin (Neurontin Capsule) 800 mg BID PO 05/24/24 22:00 05/25/24 11:57 Hydralazine HCl (Apresoline Tablet) 25 mg TIDPRN PRN PO FOR SBP >160 05/24/24 16:45 Isosorbide Mononitrate (Imdur Er Tablet) 30 mg DAILY PO 05/25/24 10:00 05/25/24 11:58 Levetiracetam (Keppra Tablet) 750 mg BID PO 05/24/24 22:00 05/25/24 11:57 Metoprolol Succinate (Toprol Xl) 25 mg DAILY PO 05/25/24 10:00 Patient Own Medication 15 mg DAILY PO 05/25/24 10:00 Diagnostic Test (Pha) (Accu-Chek Comfort Curve T) 1 strip ACHS 05/24/24 17:00 05/25/24 11:52 Insulin Human Regular (InsuLIN R) ACHS SC 05/24/24 17:00 Albuterol (Ventolin Medneb) 2.5 mg Q4HR NEB 05/24/24 18:00 05/24/24 19:32 DC 05/24/24 19:10 Furosemide (Lasix Injection) 20 mg DAILY IV 05/25/24 10:00 05/25/24 11:54 Albuterol (Ventolin Medneb) 2.5 mg Q6HWA NEB 05/25/24 06:00 05/25/24 11:31 Ipratropium [place] (Atrovent Medneb) 0.5 mg Q6HWA NEB 05/25/24 06:00 05/25/24 11:31 Review of Systems Constitutional: No: Fever, Chills, Sweats, Weakness, Malaise, Other Eyes: No: Pain, Vision change, Conjunctivae inflammation, Eyelid inflammation, Other, Redness ENT: No: Ear pain, Ear discharge, Nose pain, Nose discharge, Nose congestion, Mouth pain, Mouth swelling, Throat pain, Throat swelling, Other Respiratory: No: Cough, Dry, , Wheezing, Hemoptysis, Pleuritic Pain, Sputum, Wheezing, Other positive: Shortness of breath, SOB with exertion Cardiovascular: ; No: , Orthopnea, Paroxysmal Noc. Dyspnea, Edema, Lt Headedness, Other positive: Chest Pain Palpitations Gastrointestinal: No: Nausea, Vomiting, Abdominal Pain, Diarrhea, Constipation, Melena, Hematochezia, Other Genitourinary: No Dysuria, No Frequency, No Incontinence, No Hematuria, No Retention, No Other Musculoskeletal: neck pain; No: other, shoulder pain, arm pain, back pain, hand pain, leg pain, foot pain Skin: No: Rash, Lesions, Jaundice, Bruising, Other Neurological: Other (Dizziness, headache.); No: Weakness, Numbness, Incoordination, Change in speech, Confusion, Seizures Vital Signs Vital Signs Date Time Temp Pulse Resp B/P (MAP) Pulse Ox O2 Delivery O2 Flow Rate FiO2 05/25/24 13:28 97.9 76 20 101/58 (72) 97 97.9 05/25/24 11:32 Nasal Cannula* 2 28 Physical Exam General appearance: Ill-appearing, in no acute distress. HEENT: Exam shows: Normocephalic, atraumatic, PERRLA, EOMI Neck: Supple, no bruits Chest: Equal chest excursion bilaterally. Breath sounds rhonchi 6/diminished. Heart: Rhythm: Irregular, V paced complexes; no murmur or gallop Abdomen: Exam shows: Soft, nontender, nondistended Musculoskeletal: No clubbing, no cyanosis, trace lower extremity edema Dermatology: Skin warm, moist. Neurological: Exam shows: Alert and oriented x4, normal speech Available prior records, labs, EKG, rhythm strips reviewed and interpreted Labs/Diagnostic Data Labs Test 05/25/24 11:49 05/25/24 06:12 05/24/24 12:57 Range/Units POC Glucose 95 70-106 mg/dl White Blood Count 6.3 4.4-10.8 10^3/uL Red Blood Count 3.47 L 4.5-5.90 10^6/uL Hemoglobin 10.6 L 13.5-17.5 g/dL Hematocrit 32.7 L 41.0-53.0 % Mean Corpuscular Volume 94.4 80.0-100.0 fL Mean Corpuscular Hemoglobin 30.6 28.0-32.0 pg Mean Corpuscular Hemoglobin Concent 32.4 32.0-36.0 g/dL Red Cell Distribution Width 14.7 H 11.8-14.3 % Platelet Count 134 L 140-450 10^3/uL Mean Platelet Volume 10.4 6.9-10.8 fL Neutrophils (%) (Auto) 55.4 37.0-80.0 % Lymphocytes (%) (Auto) 29.2 10.0-50.0 % Monocytes (%) (Auto) 7.4 0.0-12.0 % Eosinophils (%) (Auto) 7.2 H 0.0-7.0 % Basophils (%) (Auto) 0.8 0.0-2.0 % Neutrophils # (Auto) 3.5 1.6-8.6 10 ^3/uL Lymphocytes # (Auto) 1.8 0.4-5.4 10 ^3/uL Monocytes # (Auto) 0.5 0-1.3 10 ^3/uL Eosinophils # (Auto) 0.5 0-0.8 10 ^3/uL Basophils # (Auto) 0 0-0.2 10 ^3/uL Nucleated Red Blood Cells 0.1 % Sodium Level 142 136-145 mmol/L Potassium Level 4.1 3.5-5.1 mmol/L Chloride Level 109 H 98-107 mmol/L Carbon Dioxide Level 25 20-31 mmol/L Anion Gap 8 5-15 Blood Urea Nitrogen 32 H 9-23 mg/dL Creatinine 1.66 H 0.700-1.30 mg/dL Glomerular Filtration Rate Calc 44 >90 mL/min BUN/Creatinine Ratio 19.3 10.0-20.0 Serum Glucose 82 74-106 mg/dL Calcium Level 9.9 8.7-10.4 mg/dL Total Bilirubin 0.5 0.2-1.0 mg/dL Aspartate Amino Transferase (AST) 23 13-40 U/L Alanine Aminotransferase (ALT) 21 7-40 U/L Alkaline Phosphatase 59 46-116 U/L Troponin I High Sensitivity 27 </=54 ng/L B-Type Natriuretic Peptide 695.22 0-100 pg/mL Total Protein 7.2 5.7-8.2 g/dL Albumin 3.8 3.2-4.8 g/dL Lactic Acid Level 1.1 0.4-2.0 mmol/L Microbiology Date/Time Source Procedure Growth Status 05/24/24 20:25 Nose MRSA Screen - Final Methicillin Resistant S.aureus Complete 05/24/24 12:57 Blood Blood Culture - Preliminary NO GROWTH AFTER 24 HOURS OF INCUBATION. Resulted Assessment * Chest pain - troponins trending negative. No significant ST abnormality on EKG. Patient with known CAD, recent angiogram showing mild nonobstructive CAD with recent myocardial perfusion scan 02/26/2024 showing normal perfusion. Continue medical management. ACS ruled out. * Atrial fibrillation - -controlled. Continue metoprolol 25 mg p.o. daily. Not on anticoagulation therapy. * Acute on chronic HFpEF - on Lasix 20 mg IV daily. Monitor response. Strict I&Os. Echo. * CAD s/p PCI - continue aspirin and statin and Plavix. * HX SSS, s/p bpm - normal functioning on telemetry. * Breakthrough seizure - management per primary team. * Chronic pain syndrome - Management per primary team Case Discussed with Dr Vásquez. Patient with known nonobstructive CAD previous stent in the past. Last angiogram showing 40% InStent restenosis. Continue on aspirin and Plavix and statin. ACS ruled out. No significant ST abnormalities on EKG echo pending. If no significant abnormalities, no further cardiac work- up indicated. Continue with antianginals with Imdur and Ranexa titrate as tolerated. Critical care, time spent: 45 minutes This medical document was created using an electronic medical record system with voice recognition software and computerized dictation system. Although this document has been carefully reviewed, there might still be some phonetic and typographical errors. Occasional wrong-word or ``sound-alike substitutions may have occurred due to the inherent limitations of voice recognition software. These areas are purely typographical due to imperfections of the software programs and do not reflect any compromise in the patient's medical care. Please read the chart carefully and recognize, using context, where these substitutions have occurred. Thank you for allowing me to participate in the management of this patient. The treatment plan was discussed with and agreed upon by patient/family including requesting consultants and ordering of imaging/procedures. Plan discussed with: Patient NYHA Physical activity limitations: Class3(Marked) ordinary Date of Service: May 25, 2024 Billing Provider: AUGUST NEWELL Cardiology Common Codes: [id number] INP/OBS CARE (High), [id number] CARE 30-74 MIN AUGUST NEWELL May 25, 2024 16:12
[2024-05-25] MEDS ORDERED: VANCOMYCIN PER PHARMACY 0 MG IV SCH (17:00)
[2024-05-25] MEDS: predniSONE 20 MG TAB PO ONE (17:00)
[2024-05-25] MEDS: VANCOMYCIN 1.75GM/350ML 350 ML IV ONE (18:24)
[2024-05-25] MEDS: ATORVASTATIN 20 MG TAB PO SCH (22:11)
[2024-05-25 22:55] LABS: Urine Bacteria None Seen /hpf (None Seen)
[2024-05-25 23:05] LABS: Urine Blood Negative /uL (Negative); Urine Clarity Clear (Clear); Urine Color Light-Yellow (Yellow); Urine Mucus FEW (None Seen); Urine Protein, UAD Negative (Negative); Urine Specific Gravity 1.014 (1.001-1.035); Urine Squamous Epithelial Cell FEW /hpf (<5); Urine Urobilinogen Normal (Negative); Urine WBC 1 /HPF (0-3)
[2024-05-25 23:13] LABS: Amphetamine Screen, Urine Neg (NEGATIVE); Barbiturate Scree,Urine Neg (NEGATIVE); Benzodiazephine Screen, Urine Neg (NEGATIVE); Cannabinoid Screen, Urine Neg (NEGATIVE); Cocaine Screen, Urine Neg (NEGATIVE); Opiate Scree,Urine Pos (NEGATIVE); Phencyclidine Screen, Urine Neg (NEGATIVE)
[2024-05-26] VITALS (17 sets, daily range): BP systolic 83–129; BP diastolic 39–54; PULSE 50–62; RESP 16–20; TEMP 97.3–98.4; O2SAT 93–100
[2024-05-26 05:10] LABS: Basophils # (auto) 0 10 ^3/uL (0-0.2); Basophils % (auto) 0.2 % (0.0-2.0); Eosinophils # (auto) 0 10 ^3/uL (0-0.8); Eosinophils % (auto) 0.2 % (0.0-7.0); Hematocrit 33.6 % (41.0-53.0); Hemoglobin 10.7 g/dL (13.5-17.5); Lymphocytes # (auto) 0.6 10 ^3/uL (0.4-5.4); Lymphocytes % (auto) 14.7 % (10.0-50.0); Mean Corpuscular Hemoglobin 30.3 pg (28.0-32.0); Mean Corpuscular Hgb Conc. 31.9 g/dL (32.0-36.0); Mean Corpuscular Volume 94.8 fL (80.0-100.0); Monocytes # (auto) 0.1 10 ^3/uL (0-1.3); Monocytes % (auto) 2.6 % (0.0-12.0); Neutrophils # (auto) 3.5 10 ^3/uL (1.6-8.6); Neutrophils % (auto) 82.3 % (37.0-80.0); Nucleated Red Blood Cells % 0.1 %; Platelet Count (auto) 135 10^3/uL (140-450); Red Blood Cells 3.55 10^6/uL (4.5-5.90); Red Cell Distribution Width 14.7 % (11.8-14.3); White Blood Cell 4.2 10^3/uL (4.4-10.8)
[2024-05-26 05:31] LABS: Alanine Aminotransferase 17 U/L (7-40); Alkaline Phosphatase 62 U/L (46-116); Anion Gap 7 (5-15); Aspartate Aminotransferase 17 U/L (13-40); BUN/Creatinine Ratio 18.5 (10.0-20.0); Calcium 9.8 mg/dL (8.7-10.4); Carbon Dioxide 24 mmol/L (20-31); Magnesium 2.1 mg/dL (1.6-2.6); Potassium 4.5 mmol/L (3.5-5.1); Sodium 140 mmol/L (136-145); Total Protein 7.5 g/dL (5.7-8.2)
[2024-05-26 05:32] LABS: Bilirubin, Total 0.3 mg/dL (0.2-1.0); Phosphorus 3.7 mg/dL (2.4-5.1)
[2024-05-26 05:33] LABS: Blood Urea Nitrogen 36 mg/dL (9-23); Chloride 109 mmol/L (98-107); Glucose 145 mg/dL (74-106)
[2024-05-26] MEDS: MORPHINE SULFATE INJ 2 MG/ml SYRG IV ONE (06:22)
[2024-05-26] MEDS: predniSONE 20 MG TAB PO SCH (10:32)
--- NOTE | 2024-05-26 12:29 | ECG ---
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
[2024-05-26] MEDS: VANCOMYCIN 1.5GM/300ML 300 ML IV SCH (16:47)
--- NOTE | 2024-05-26 18:24 | DVHINCON2 ---
Date of service: May 26, 2024 Referring Physician Manoj Reason for Consultation Chest pain History of Present Illness This is a 69 year old male with a PMH of diastolic HF, [place], CKD, COPD, CVA, bed- bound, HTN, HLD, diabetes, CAD s/p PCI, WAQAR, carotid stenosis, seizure disorder, thyroidectomy, bradycardia, SSS s/p implantation of leadless MICRA ppm who presented to the ED with complaints of chest pain. Patient describes the chest pain as pressure like in nature, retrosternal, nonradiating. Patient states that he has been having chronic episodes of chest pain intermittently and setting multiple angiograms in the past previous stents. Last angiogram showing 40% InStent restenosis. Chest x-ray shows cardiomegaly with mild congestion. BNP 1006. Troponin was negative. Patient was admitted to the hospital. I am asked to consult on this patient. Family History: Alcoholism G8 MOTHER, Onset:Unknown Cancer G8 SISTER (uterine cancer) Cardiovascular disease G8 SISTER Cerebrovascular accident (CVA) G8 BROTHER Chronic obstructive pulmonary disease G8 SISTER Depression G8 SISTER Diabetes mellitus G8 SISTER G8 SISTER Family history: Cardiovascular disease Family history: Depression (situation) Family history: Hypertension Family history: Hypertension Glaucoma MATERNAL GPA Sepsis Stroke Stroke Allergies: Coded Allergies: NO KNOWN ALLERGIES (Unverified , 10/04/22) Home Meds Active Scripts Hydrocodone-Acetaminophen (Hydrocodone Bitartrate/AC 10-325 mg) 1 Tab Tab, 1 TAB PO QID PRN, #30 TAB Prov:CYDNEY MCGARRY MD 05/08/24 Hydrocodone-Acetaminophen (Hydrocodone Bitartrate/AC 5-325 mg) 1 Tab Tab, 1 TAB PO Q6HP PRN, #15 TAB Prov:DANIEL OLIVAREZ MD 02/28/24 Ranolazine (Ranexa) 500 Mg Tab, 500 MG PO BID for 30 Days, #60 TAB Prov:JUSTIN DUARTE MD 10/22/18 Reported Medications Budesonide-Formoterol Fumarate (Budesonide/Formoterol Fum 160-4.5 Mcg/Act) 1 Aer Aer, 2 PUFF IN BID for 30 Days, #10.2 02/26/24 Midodrine HCl (Midodrine Hydrochloride) 5 Mg Tab, 1 TAB PO TID for 30 Days, #90 02/26/24 Potassium Chloride (Potassium Chloride ER) 10 Meq Tab, 1 TAB PO BID for 30 Days, #60 02/26/24 Furosemide (Furosemide) 40 Mg Tab, 0.5 TAB PO BID for 30 Days, #30 TAKE 1/2 TABLET (20 MG) BY MOUTH TWICE DAILY. 02/26/24 Aspirin (Aspirin Regular Strength) 325 Mg Tab, 1 TAB PO DAILY for 30 Days, #30 02/26/24 Lactulose (Lactulose) 10 Gm/15 Ml Rachna, 15 ML PO BID PRN for 15 Days, #473 02/26/24 Isosorbide Mononitrate (Isosorbide Mononitrate Er) 30 Mg Tab, 1 TAB PO DAILY for 30 Days, #30 02/26/24 Atorvastatin Calcium (Lipitor) 80 Mg Tab, 1 TAB PO DAILY for 30 Days, #30 02/26/24 Amlodipine Besylate (Amlodipine Besylate) 10 Mg Tab, 1 TAB PO DAILY for 30 Days, #30 02/26/24 Levetiracetam (Levetiracetam) 750 Mg Tab, 1 TAB PO BID for 30 Days, #60 02/26/24 Losartan Potassium (Losartan Potassium) 50 Mg Tab, 0.5 TAB PO DAILY for 30 Days, #15 TAKE 1/2 TABLET (25 MG) BY MOUTH DAILY. 02/26/24 Lidocaine (Lidocaine Topical Pain Pa) 4 % Pad, 1 PATCH TOP DAILY 06/28/23 Gabapentin (Gabapentin) 800 Mg Tab, 1 TAB PO BID for 30 Days, #60 06/28/23 Ipratropium-Albuterol (COMBIVENT RESPIMAT) Respimat Aer, 1 PUFF INH QID 05/14/23 Methocarbamol (Methocarbamol) 500 Mg Tab, 1.5 TAB PO Q8HR PRN for 8 Days, #40 05/14/23 Dapagliflozin Propanediol (Farxiga) 10 Mg Tab, 1 TAB PO DAILY for 30 Days, #30 05/14/23 Hydralazine Hcl (Hydralazine Hcl) 50 Mg Tab, 1 TAB PO TID PRN for 30 Days, #90 05/14/23 Beclomethasone Dipropionate (Qvar Redihaler) 80 Mcg/Act Aer, 1 PUFF INH BID for 30 Days, #10.6 02/27/23 Silver Sulfadiazine (Silver Sulfadiazine) 1 % Cre, 1 APPLIC TOP DAILY for 30 Days, #50 02/27/23 Oxybutynin Chloride (Ditropan Xl) 5 Mg Tab, 15 MG PO DAILY for 30 Days, #30 02/27/23 Trazodone Hcl (Trazodone Hcl) 100 Mg Tab, 4 TAB PO HS for 30 Days, #120 02/27/23 Metoprolol Succinate (Metoprolol Succinate Er) 25 Mg Tab, 1 TAB PO DAILY for 30 Days, #30 02/27/23 Clopidogrel Bisulfate (CLOPIDOGREL) 75 Mg Tab, 1 TAB PO DAILY for 30 Days, #30 02/07/23 Pantoprazole Sodium Sesquihydr (Pantoprazole Sodium) 40 Mg Tab, 1 TAB PO QAM 02/07/23 Bupropion Hcl (Bupropion Hcl) 75 Mg Tab, 2 TAB PO DAILY for 30 Days, #60 11/10/17 Current Medications Current Medications Medications (Trade) Dose Ordered Sig/Yvette Route PRN Reason Start Time Stop Time Status Last Admin Atorvastatin Calcium (Lipitor) 80 mg HS PO 05/25/24 22:00 05/25/24 22:11 Prednisone 40 mg DAILY PO 05/26/24 10:00 05/26/24 10:32 Vancomycin HCl 0 ml @ 0 mls/hr UD IV 05/25/24 17:00 Vancomycin HCl 300 ml @ 200 mls/hr Q18H IV 05/26/24 16:00 Review of Systems Constitutional: No: Fever, Chills, Sweats, Weakness, Malaise, Other Eyes: No: Pain, Vision change, Conjunctivae inflammation, Eyelid inflammation, Other, Redness ENT: No: Ear pain, Ear discharge, Nose pain, Nose discharge, Nose congestion, Mouth pain, Mouth swelling, Throat pain, Throat swelling, Other Respiratory: No: Cough, Dry, , Wheezing, Hemoptysis, Pleuritic Pain, Sputum, Wheezing, Other positive: Shortness of breath, SOB with exertion Cardiovascular: ; No: , Orthopnea, Paroxysmal Noc. Dyspnea, Edema, Lt Headedness, Other positive: Chest Pain Palpitations Gastrointestinal: No: Nausea, Vomiting, Abdominal Pain, Diarrhea, Constipation, Melena, Hematochezia, Other Genitourinary: No Dysuria, No Frequency, No Incontinence, No Hematuria, No Retention, No Other Musculoskeletal: neck pain; No: other, shoulder pain, arm pain, back pain, hand pain, leg pain, foot pain Skin: No: Rash, Lesions, Jaundice, Bruising, Other Neurological: Other (Dizziness, headache.); No: Weakness, Numbness, Incoordination, Change in speech, Confusion, Seizures Vital Signs Vital Signs Date Time Temp Pulse Resp B/P (MAP) Pulse Ox O2 Delivery O2 Flow Rate FiO2 05/26/24 13:31 97 Nasal Cannula* 2 28 05/26/24 13:31 54 18 05/26/24 13:00 97.3 88/39 (55) 97.3 Physical Exam GENERAL: Alert and oriented x 3. No acute distress. Morbidly obese. EYES: PERRL, EOMI. Anicteric. HENT: Moist mucous membranes. LUNGS: Clear to auscultation bilaterally. CARDIOVASCULAR: Regular rate and rhythm. ABDOMEN: Soft, non-tender and non-distended. EXTREMITIES: No edema. NEUROLOGIC: No focal neurological deficits. SKIN: Warm, dry. Labs/Diagnostic Data Labs Test 05/26/24 11:13 05/26/24 04:28 05/25/24 22:54 05/25/24 17:30 Range/Units POC Glucose 168 H 70-106 mg/dl White Blood Count 4.2 #L 4.4-10.8 10^3/uL Red Blood Count 3.55 L 4.5-5.90 10^6/uL Hemoglobin 10.7 L 13.5-17.5 g/dL Hematocrit 33.6 L 41.0-53.0 % Mean Corpuscular Volume 94.8 80.0-100.0 fL Mean Corpuscular Hemoglobin 30.3 28.0-32.0 pg Mean Corpuscular Hemoglobin Concent 31.9 L 32.0-36.0 g/dL Red Cell Distribution Width 14.7 H 11.8-14.3 % Platelet Count 135 L 140-450 10^3/uL Mean Platelet Volume 10.3 6.9-10.8 fL Neutrophils (%) (Auto) 82.3 H 37.0-80.0 % Lymphocytes (%) (Auto) 14.7 10.0-50.0 % Monocytes (%) (Auto) 2.6 0.0-12.0 % Eosinophils (%) (Auto) 0.2 0.0-7.0 % Basophils (%) (Auto) 0.2 0.0-2.0 % Neutrophils # (Auto) 3.5 1.6-8.6 10 ^3/uL Lymphocytes # (Auto) 0.6 0.4-5.4 10 ^3/uL Monocytes # (Auto) 0.1 0-1.3 10 ^3/uL Eosinophils # (Auto) 0 0-0.8 10 ^3/uL Basophils # (Auto) 0 0-0.2 10 ^3/uL Nucleated Red Blood Cells 0.1 % Sodium Level 140 136-145 mmol/L Potassium Level 4.5 3.5-5.1 mmol/L Chloride Level 109 H 98-107 mmol/L Carbon Dioxide Level 24 20-31 mmol/L Anion Gap 7 5-15 Blood Urea Nitrogen 36 H 9-23 mg/dL Creatinine 1.95 H 0.700-1.30 mg/dL Glomerular Filtration Rate Calc 36 >90 mL/min BUN/Creatinine Ratio 18.5 10.0-20.0 Serum Glucose 145 H 74-106 mg/dL Calcium Level 9.8 8.7-10.4 mg/dL Phosphorus Level 3.7 2.4-5.1 mg/dL Magnesium Level 2.1 1.6-2.6 mg/dL Total Bilirubin 0.3 0.2-1.0 mg/dL Aspartate Amino Transferase (AST) 17 13-40 U/L Alanine Aminotransferase (ALT) 17 7-40 U/L Alkaline Phosphatase 62 46-116 U/L Total Protein 7.5 5.7-8.2 g/dL Albumin 4.0 3.2-4.8 g/dL Random Vancomycin Level 17.0 H 5-10 ug/mL Urine Color Light-yellow Yellow Urine Clarity Clear Clear Urine pH 5.0 5.0-9.0 Urine Specific [place] 1.014 1.001-1.035 Urine Protein Negative Negative Urine Ketones Negative Negative Urine Blood Negative Negative /uL Urine Nitrite Negative Negative Urine Bilirubin Negative Negative Urine Urobilinogen Normal Negative mg/dL Urine Leukocyte Esterase Negative Negative /uL Urine RBC <1 0 - 3 /hpf Urine Microscopic WBC 1 0-3 /HPF Urine Squamous Epithelial Cells Few <5 /hpf Urine Bacteria None seen None Seen /hpf Urine Mucus Few None Seen Urine Glucose 2+ H Normal mg/dL Urine Opiates Screen Pos NEGATIVE Urine Fentanyl Screen Neg NEGATIVE Urine Barbiturates Screen Neg NEGATIVE Urine Phencyclidine Screen Neg NEGATIVE Urine Amphetamines Screen Neg NEGATIVE Urine Benzodiazepines Screen Neg NEGATIVE Urine Cocaine Screen Neg NEGATIVE Urine Cannabinoids Screen Neg NEGATIVE Troponin I High Sensitivity 24 </=54 ng/L Test 05/25/24 06:12 05/24/24 12:57 Range/Units B-Type Natriuretic Peptide 695.22 0-100 pg/mL Lactic Acid Level 1.1 0.4-2.0 mmol/L Microbiology Date/Time Source Procedure Growth Status 05/24/24 20:25 Nose MRSA Screen - Final Methicillin Resistant S.aureus Complete 05/24/24 12:57 Blood Blood Culture - Preliminary Resulted Assessment Chest pain. Atrial fibrillation. Acute on chronic HFpEF. CAD s/p PCI. Breakthrough seizure. Chronic pain syndrome. History of SSS. Acute on chronic hypoxic respiratory failure. CVA w/ right residual. COPD. NIDDM. Morbid obesity. Plan/Recommendation I agree with your ongoing assessment and care of plan. [place] for pain management. Aspirin, Lipitor, Plavix, Metoprolol. DVT and GI prophylactics. Diuretics with Lasix. IV antibiotics as ordered. Additional plan as per the hospital course. A total of 45 minutes was spent reviewing the patient record, examining the patient, making a diagnostic and therapeutic plan, discussing this plan with medical personnel, following up on diagnostic studies and following the patient for clinical stability excluding any and all procedures. At least 50% of this time was spent in direct, [id number] contact. Plan discussed with: Patient ROHINI ABARCA MD May 26, 2024 15:27
--- NOTE | 2024-05-26 20:54 | DVHPN2 ---
Assessment/Plan Assessment/Plan progress note 69 M with HTN, CAD s/p DESTINY x3, HFpEF, bed bound, CVA with right residual, COPD group E on home O2, NIDDM, chronic pain admitted for chest pain. seen today during rounds, more overloaded, increase diuresis physical exam aox3 morbidly obese clear breath s1 s2 rrr muffled abdomen tender no le edema R side residual labs ekg imaging reviewed assessment and plan acute on chronic hypoxic RF acute on chronic diastolic HF CAD s/p DESTINY x5 s/p PPM HFpEF 70% afib CVA w/ right residual COPD group E on home O2 with exacerbation NIDDM chronic pain KOLE VMN on CKD Seizure? morbid obesity resume GDMT lasix maintain net -500 to 1L ISS resume home meds ceft and azithro prednisone breathing tx resume asa plavix eliquis trend trop repeat echo aspiration precaution diet cardiac dvt ppx on eliquis full code Plan discussed with: Patient My Orders Orders - BK LAGUERRE MD Procedure Category Date Status Time Vancomycin 1.5gm/300ml PHA 05/26/24 In Process 16:00 Complete Blood Count LAB 05/27/24 Verified 04:00 Creatinine LAB 05/27/24 Verified 04:00 Vancomycin,Trough LAB 05/28/24 Verified 21:00 Vancomycin Per ELLIE 05/26/24 In Process Pharmacy Protoc 13:04 Furosemide Injection PHA 05/26/24 Logged (Lasix Injection) 22:00 Date of Service: May 26, 2024 Billing Provider: BK LAGUERRE MD Common Visit Codes: [id number] INP/OBS CARE(HIGH) BK LAGUERRE MD May 26, 2024 20:54
[2024-05-26] MEDS: FUROSEMIDE 20 MG/2 ML VIAL IV SCH (22:27)
[2024-05-27] VITALS (17 sets, daily range): BP systolic 77–144; BP diastolic 30–55; PULSE 53–97; RESP 16–19; TEMP 97.9–99; O2SAT 95–100
[2024-05-27 06:24] LABS: Basophils # (auto) 0 10 ^3/uL (0-0.2); Basophils % (auto) 0.1 % (0.0-2.0); Eosinophils # (auto) 0 10 ^3/uL (0-0.8); Hematocrit 29.1 % (41.0-53.0); Hemoglobin 9.6 g/dL (13.5-17.5); Lymphocytes # (auto) 0.9 10 ^3/uL (0.4-5.4); Lymphocytes % (auto) 8.9 % (10.0-50.0); Mean Corpuscular Hemoglobin 30.3 pg (28.0-32.0); Mean Corpuscular Hgb Conc. 32.9 g/dL (32.0-36.0); Mean Corpuscular Volume 92.1 fL (80.0-100.0); Monocytes # (auto) 0.4 10 ^3/uL (0-1.3); Monocytes % (auto) 4.3 % (0.0-12.0); Neutrophils # (auto) 8.4 10 ^3/uL (1.6-8.6); Neutrophils % (auto) 86.7 % (37.0-80.0); Platelet Count (auto) 158 10^3/uL (140-450); Red Blood Cells 3.16 10^6/uL (4.5-5.90); Red Cell Distribution Width 14.5 % (11.8-14.3); White Blood Cell 9.8 10^3/uL (4.4-10.8)
--- NOTE | 2024-05-27 12:18 | ECG ---
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
--- NOTE | 2024-05-27 12:21 | ECG ---
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
[2024-05-27] MEDS ORDERED: NOREPINEPHRINE 8 MG/250ML KIT 250 ML IV SCH (14:30)
--- NOTE | 2024-05-27 18:19 | DVHPN2 ---
Progress Note - Dictate Date Seen: May 27, 2024 Medical Necessity Reason Pt with a Central, PICC or Fol: No Subjective Patient was seen and evaluated in follow up. Patient appears fluid overloaded. Lasix increased to 40mg. HGB 9.6, HCT 29.1. BS in the 150s. Telemetry reviewed. vital signs Vital Sign Date Time Temp Pulse Resp B/P (MAP) Pulse Ox O2 Delivery O2 Flow Rate FiO2 05/27/24 17:00 98.2 63 19 97/47 (64) 98 98.2 05/27/24 14:23 2.0 05/27/24 12:10 Nasal Cannula 05/27/24 12:10 28 Total Intake and Output 05/26/24 05/26/24 05/27/24 15:00 23:00 07:00 Intake Total 520 ml 300 ml Output Total 475 ml 650 ml Balance 45 ml -350 ml medications Current Medications Medications Dose Ordered Sig/Yvette Route Start Time Stop Time Status Last Admin Dose Admin Enoxaparin Sodium 40 mg DAILY SC 05/25/24 10:00 05/27/24 09:43 40 MG Acetaminophen 650 mg Q6HP PRN PO 05/24/24 14:15 Aspirin 325 mg DAILY PO 05/25/24 10:00 05/27/24 10:32 325 MG Bupropion HCl 150 mg DAILY PO 05/25/24 10:00 05/27/24 09:47 150 MG Clopidogrel Bisulfate 75 mg DAILY PO 05/25/24 10:00 05/27/24 09:44 75 MG Acetaminophen/ Hydrocodone Bitart 1 tab Q6HP PRN PO 05/24/24 14:15 05/27/24 05:17 1 TAB Pantoprazole Sodium 40 mg QAM PO 05/25/24 07:00 05/27/24 06:28 40 MG Ranolazine 500 mg BID PO 05/24/24 22:00 05/27/24 09:43 500 MG Silver Sulfadiazine 1 applic DAILY TOP 05/25/24 10:00 Atorvastatin Calcium 80 mg HS PO 05/25/24 22:00 05/26/24 22:04 80 MG Patient Own Medication 1 tab DAILY PO 05/25/24 10:00 Gabapentin 800 mg BID PO 05/24/24 22:00 05/27/24 10:13 800 MG Levetiracetam 750 mg BID PO 05/24/24 22:00 05/27/24 09:47 750 MG Patient Own Medication 15 mg DAILY PO 05/25/24 10:00 Diagnostic Test (Pha) 1 strip ACHS 05/24/24 17:00 05/27/24 16:43 1 STRIP Insulin Human Regular ACHS SC 05/24/24 17:00 05/27/24 16:38 2 UNITS Dextrose 50 ml UD PRN IV 05/24/24 14:15 Albuterol 2.5 mg Q2HPRN PRN NEB 05/24/24 14:45 Albuterol 2.5 mg Q6HWA NEB 05/25/24 06:00 05/27/24 12:10 2.5 MG Ipratropium [place] 0.5 mg Q6HWA [facility] 05/25/24 06:00 05/27/24 12:10 0.5 MG Prednisone 40 mg DAILY PO 05/26/24 10:00 05/27/24 09:43 40 MG Vancomycin HCl 0 ml @ 0 mls/hr UD IV 05/25/24 17:00 Norepinephrine Bitartrate 250 ml @ 3.75 mls/hr Q24H IV 05/27/24 14:30 Hold Furosemide 40 mg BID IV 05/27/24 22:00 objective GENERAL: Alert and oriented x 3. No acute distress. Morbidly obese. EYES: PERRL, EOMI. Anicteric. HENT: Moist mucous membranes. LUNGS: Clear to auscultation bilaterally. CARDIOVASCULAR: Regular rate and rhythm. ABDOMEN: Soft, non-tender and non-distended. EXTREMITIES: No edema. NEUROLOGIC: No focal neurological deficits. SKIN: Warm, dry. laboratory and microbiology Laboratory Tests 05/27/24 05:04 05/26/24 04:28 Test 05/26/24 04:28 Range/Units Serum Glucose 145 H 74-106 mg/dL Problem List Chest pain. Atrial fibrillation. Acute on chronic HFpEF. CAD s/p PCI. Breakthrough seizure. Chronic pain syndrome. History of SSS. Acute on chronic hypoxic respiratory failure. CVA w/ right residual. COPD. NIDDM. Morbid obesity. Assessment/Plan Continued all current supportive medical care. [place] for pain management. Aspirin, Lipitor, Plavix, Metoprolol. DVT and GI prophylactics. Diuretics with Lasix. IV antibiotics as ordered. Additional plan as per the hospital course. Dietary Evaluation Review Recommendations by RD: Dietary education by RD Comments: 1) Initiate multivitamin @ 1 tb qd 2) Change 2g Na restriction to 60g CCHO cardiac diet d/t extensive hx of heart disease 3) Refer to outpatient RD/CDCDES for weight management 4) Consider nephrology consult d/t impaired renal function 5) Follow-up with neurology and cardiology 6) Continue to monitor I&O, labs, and skin integrity Expected Outcomes/Goals: 1) appetite and labs to improve 2) skin to improve 3) f/u in 3-5 days Plan discussed with: Patient ROHINI ABARCA MD May 27, 2024 18:19
--- NOTE | 2024-05-27 22:30 | DVHPN2 ---
Assessment/Plan Assessment/Plan progress note 69 M with HTN, CAD s/p DESTINY x3, HFpEF, bed bound, CVA with right residual, COPD group E on home O2, NIDDM, chronic pain admitted for chest pain. seen today during rounds, hypotensive, keep map >65. more dizzy. work with PT, continue diuresis physical exam aox3 morbidly obese clear breath s1 s2 rrr muffled abdomen tender le edema R side residual labs ekg imaging reviewed assessment and plan acute on chronic hypoxic RF acute on chronic diastolic HF CAD s/p DESTINY x5 s/p PPM HFpEF 70% afib CVA w/ right residual COPD group E on home O2 with exacerbation NIDDM chronic pain KOLE VMN on CKD Seizure? morbid obesity resume GDMT lasix maintain net -500 to 1L ISS resume home meds ceft and azithro prednisone breathing tx resume asa plavix eliquis trend trop repeat echo aspiration precaution diet cardiac dvt ppx on eliquis full code Plan discussed with: Patient My Orders Orders - BK LAGUERRE MD Procedure Category Date Status Time Norepinephrine 8 PHA 05/27/24 In Process Mg/250ml Kit 14:30 Transfer Orders XFER 05/27/24 Transmitted 14:25 Furosemide Injection PHA 05/27/24 In Process (Lasix Injection) 22:00 Creatinine LAB 05/28/24 Verified 04:00 Vancomycin Per ELLIE 05/27/24 In Process Pharmacy Protoc 16:32 Vancomycin,Random LAB 05/28/24 Verified 04:00 Date of Service: May 27, 2024 Billing Provider: BK LAGUERRE MD Common Visit Codes: [id number] INP/OBS CARE(HIGH) BK LAGUERRE MD May 27, 2024 22:30
[2024-05-27] MEDS: FUROSEMIDE 20 MG/2 ML VIAL IV SCH (22:43)
[2024-05-28] VITALS (14 sets, daily range): BP systolic 92–117; BP diastolic 44–51; PULSE 51–96; RESP 16–21; TEMP 97.6–98.5; O2SAT 96–100
[2024-05-28 07:14] LABS: Basophils # (auto) 0 10 ^3/uL (0-0.2); Eosinophils # (auto) 0 10 ^3/uL (0-0.8); Hemoglobin 10.6 g/dL (13.5-17.5); Lymphocytes # (auto) 1.4 10 ^3/uL (0.4-5.4); Lymphocytes % (auto) 16.6 % (10.0-50.0); Mean Corpuscular Hemoglobin 30.7 pg (28.0-32.0); Mean Corpuscular Hgb Conc. 33.2 g/dL (32.0-36.0); Mean Corpuscular Volume 92.6 fL (80.0-100.0); Monocytes # (auto) 0.5 10 ^3/uL (0-1.3); Neutrophils # (auto) 6.7 10 ^3/uL (1.6-8.6); Neutrophils % (auto) 77.4 % (37.0-80.0); Platelet Count (auto) 162 10^3/uL (140-450); Red Blood Cells 3.46 10^6/uL (4.5-5.90); Red Cell Distribution Width 14.8 % (11.8-14.3); White Blood Cell 8.6 10^3/uL (4.4-10.8)
[2024-05-28 07:29] LABS: Anion Gap 9 (5-15); Carbon Dioxide 25 mmol/L (20-31); Potassium 3.9 mmol/L (3.5-5.1); Sodium 141 mmol/L (136-145)
[2024-05-28 07:30] LABS: Calcium 9.6 mg/dL (8.7-10.4)
[2024-05-28 07:36] LABS: Magnesium 2.2 mg/dL (1.6-2.6)
[2024-05-28 07:37] LABS: Phosphorus 2.9 mg/dL (2.4-5.1)
[2024-05-28 07:39] LABS: Blood Urea Nitrogen 45 mg/dL (9-23); Chloride 107 mmol/L (98-107); Glucose 127 mg/dL (74-106)
--- NOTE | 2024-05-28 17:10 | DVHPN2 ---
Progress Note - Dictate Date Seen: May 28, 2024 Medical Necessity Reason Pt with a Central, PICC or Fol: No Subjective Patient was seen and evaluated in follow up. Patient is complaining of dizziness and upper chest pain. 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 Telemetry reviewed. vital signs Vital Sign Date Time Temp Pulse Resp B/P (MAP) Pulse Ox O2 Delivery O2 Flow Rate FiO2 05/28/24 12:48 97.6 66 20 110/49 (69) 99 97.6 05/28/24 11:21 Nasal Cannula* 2 28 Total Intake and Output 05/27/24 05/27/24 05/28/24 15:00 23:00 07:00 Intake Total 300 ml 600 ml 325 ml Output Total 525 ml 900 ml Balance 300 ml 75 ml -575 ml medications Current Medications Medications Dose Ordered Sig/Yvette Route Start Time Stop Time Status Last Admin Dose Admin Enoxaparin Sodium 40 mg DAILY SC 05/25/24 10:00 05/28/24 11:34 40 MG Acetaminophen 650 mg Q6HP PRN PO 05/24/24 14:15 Aspirin 325 mg DAILY PO 05/25/24 10:00 05/28/24 10:00 325 MG Bupropion HCl 150 mg DAILY PO 05/25/24 10:00 05/28/24 11:29 150 MG Clopidogrel Bisulfate 75 mg DAILY PO 05/25/24 10:00 05/28/24 11:28 75 MG Acetaminophen/ Hydrocodone Bitart 1 tab Q6HP PRN PO 05/24/24 14:15 05/27/24 05:17 1 TAB Pantoprazole Sodium 40 mg QAM PO 05/25/24 07:00 05/28/24 05:56 40 MG Ranolazine 500 mg BID PO 05/24/24 22:00 05/28/24 11:28 500 MG Silver Sulfadiazine 1 applic DAILY TOP 05/25/24 10:00 Atorvastatin Calcium 80 mg HS PO 05/25/24 22:00 05/27/24 22:42 80 MG Patient Own Medication 1 tab DAILY PO 05/25/24 10:00 Gabapentin 800 mg BID PO 05/24/24 22:00 05/28/24 11:30 800 MG Levetiracetam 750 mg BID PO 05/24/24 22:00 05/28/24 11:30 750 MG Patient Own Medication 15 mg DAILY PO 05/25/24 10:00 Diagnostic Test (Pha) 1 strip ACHS 05/24/24 17:00 05/28/24 12:17 1 STRIP Insulin Human Regular ACHS SC 05/24/24 17:00 05/28/24 12:25 2 UNITS Dextrose 50 ml UD PRN IV 05/24/24 14:15 Albuterol 2.5 mg Q2HPRN PRN NEB 05/24/24 14:45 Albuterol 2.5 mg Q6HWA NEB 05/25/24 06:00 05/28/24 11:21 2.5 MG Ipratropium [place] 0.5 mg Q6HWA NEB 05/25/24 06:00 05/28/24 11:21 0.5 MG Prednisone 40 mg DAILY PO 05/26/24 10:00 05/28/24 11:29 40 MG Vancomycin HCl 0 ml @ 0 mls/hr UD IV 05/25/24 17:00 Norepinephrine Bitartrate 250 ml @ 3.75 mls/hr Q24H IV 05/27/24 14:30 Hold Furosemide 40 mg BID IV 05/27/24 22:00 05/28/24 11:27 40 MG objective GENERAL: Alert and oriented x 3. No acute distress. Morbidly obese. EYES: PERRL, EOMI. Anicteric. HENT: Moist mucous membranes. LUNGS: Clear to auscultation bilaterally. CARDIOVASCULAR: Regular rate and rhythm. ABDOMEN: Soft, non-tender and non-distended. EXTREMITIES: No edema. NEUROLOGIC: No focal neurological deficits. SKIN: Warm, dry. laboratory and microbiology Laboratory Tests 05/28/24 06:44 Test 05/28/24 06:44 Range/Units Serum Glucose 127 H 74-106 mg/dL Problem List Chest pain. Atrial fibrillation. Acute on chronic HFpEF. CAD s/p PCI. Breakthrough seizure. Chronic pain syndrome. History of SSS. Acute on chronic hypoxic respiratory failure. CVA w/ right residual. COPD. NIDDM. Morbid obesity. Assessment/Plan Continued all current supportive medical care. [place] for pain management. Aspirin, Lipitor, Plavix. DVT and GI prophylactics. Diuretics with Lasix. IV antibiotics as ordered. Additional plan as per the hospital course. Dietary Evaluation Review Recommendations by RD: Dietary education by RD Comments: 1) Initiate multivitamin @ 1 tb qd 2) Change 2g Na restriction to 60g CCHO cardiac diet d/t extensive hx of heart disease 3) Refer to outpatient RD/CDCDES for weight management 4) Consider nephrology consult d/t impaired renal function 5) Follow-up with neurology and cardiology 6) Continue to monitor I&O, labs, and skin integrity Expected Outcomes/Goals: 1) appetite and labs to improve 2) skin to improve 3) f/u in 3-5 days Plan discussed with: Patient ROHINI ABARCA MD May 28, 2024 13:25
--- NOTE | 2024-05-28 22:02 | DVHPN2 ---
Assessment/Plan Assessment/Plan progress note 69 M with HTN, CAD s/p DESTINY x3, HFpEF, bed bound, CVA with right residual, COPD group E on home O2, NIDDM, chronic pain admitted for chest pain. seen today during rounds, patient's chest pain and symptoms seems chronic. diuresed. dispo planning physical exam aox3 morbidly obese clear breath s1 s2 rrr muffled abdomen tender le edema R side residual labs ekg imaging reviewed assessment and plan acute on chronic hypoxic RF acute on chronic diastolic HF CAD s/p DESTINY x5 s/p PPM HFpEF 70% afib CVA w/ right residual COPD group E on home O2 with exacerbation NIDDM chronic pain KOLE VMN on CKD Seizure? morbid obesity resume GDMT lasix maintain net -500 to 1L ISS resume home meds ceft and azithro prednisone breathing tx resume asa plavix eliquis trend trop repeat echo aspiration precaution diet cardiac dvt ppx on eliquis full code Plan discussed with: Patient My Orders Orders - BK LAGUERRE MD Procedure Category Date Status Time Communication Order ORDERS 05/27/24 Transmitted 22:29 Complete Blood Count LAB 05/29/24 Verified 04:00 Creatinine LAB 05/29/24 Verified 04:00 Vancomycin,Random LAB 05/29/24 Verified 04:00 Date of Service: May 28, 2024 Billing Provider: BK LAGUERRE MD Common Visit Codes: [id number] INP/OBS CARE(HIGH) BK LAGUERRE MD May 28, 2024 22:02
[2024-05-29] VITALS (11 sets, daily range): BP systolic 106–119; BP diastolic 52–73; PULSE 51–96; RESP 18–20; TEMP 97.9–98.3; O2SAT 97–100
[2024-05-29 07:11] LABS: Basophils # (auto) 0 10 ^3/uL (0-0.2); Basophils % (auto) 0.2 % (0.0-2.0); Eosinophils # (auto) 0 10 ^3/uL (0-0.8); Hematocrit 30.6 % (41.0-53.0); Lymphocytes # (auto) 0.9 10 ^3/uL (0.4-5.4); Lymphocytes % (auto) 11.7 % (10.0-50.0); Mean Corpuscular Hemoglobin 30.4 pg (28.0-32.0); Mean Corpuscular Hgb Conc. 32.8 g/dL (32.0-36.0); Mean Corpuscular Volume 92.8 fL (80.0-100.0); Monocytes # (auto) 0.5 10 ^3/uL (0-1.3); Monocytes % (auto) 5.7 % (0.0-12.0); Neutrophils # (auto) 6.5 10 ^3/uL (1.6-8.6); Neutrophils % (auto) 82.4 % (37.0-80.0); Platelet Count (auto) 151 10^3/uL (140-450); Red Cell Distribution Width 14.4 % (11.8-14.3); White Blood Cell 7.9 10^3/uL (4.4-10.8)
[2024-05-29] MEDS: FUROSEMIDE 100 MG/10ML VIAL IV SCH (10:01)
[2024-05-29] MEDS ORDERED: PRED20TA2 PO (13:29)
[2024-05-29] MEDS ORDERED: FURO1TAB31 PO (13:29)
--- NOTE | 2024-05-29 13:31 | DVHDS2 ---
Discharge Summary Date of Admission May 24, 2024 at 14:07 Date of Discharge: May 29, 2024 Labs/Diagnostic Data: Laboratory Results Test 05/29/24 12:04 05/29/24 04:46 05/28/24 06:44 05/26/24 04:28 POC Glucose 181 mg/dl (70-106) White Blood Count 7.9 10^3/uL (4.4-10.8) Red Blood Count 3.30 10^6/uL (4.5-5.90) Hemoglobin 10.0 g/dL (13.5-17.5) Hematocrit 30.6 % (41.0-53.0) Mean Corpuscular Volume 92.8 fL (80.0-100.0) Mean Corpuscular Hemoglobin 30.4 pg (28.0-32.0) Mean Corpuscular Hemoglobin Concent 32.8 g/dL (32.0-36.0) Red Cell Distribution Width 14.4 % (11.8-14.3) Platelet Count 151 10^3/uL (140-450) Mean Platelet Volume 10.6 fL (6.9-10.8) Neutrophils (%) (Auto) 82.4 % (37.0-80.0) Lymphocytes (%) (Auto) 11.7 % (10.0-50.0) Monocytes (%) (Auto) 5.7 % (0.0-12.0) Eosinophils (%) (Auto) 0.0 % (0.0-7.0) Basophils (%) (Auto) 0.2 % (0.0-2.0) Neutrophils # (Auto) 6.5 10 ^3/uL (1.6-8.6) Lymphocytes # (Auto) 0.9 10 ^3/uL (0.4-5.4) Monocytes # (Auto) 0.5 10 ^3/uL (0-1.3) Eosinophils # (Auto) 0 10 ^3/uL (0-0.8) Basophils # (Auto) 0 10 ^3/uL (0-0.2) Nucleated Red Blood Cells 0.0 % Creatinine 1.90 mg/dL (0.700-1.30) Glomerular Filtration Rate Calc 37 mL/min (>90) Random Vancomycin Level 20.6 ug/mL (5-10) Sodium Level 141 mmol/L (136-145) Potassium Level 3.9 mmol/L (3.5-5.1) Chloride Level 107 mmol/L (98-107) Carbon Dioxide Level 25 mmol/L (20-31) Anion Gap 9 (5-15) Blood Urea Nitrogen 45 mg/dL (9-23) BUN/Creatinine Ratio 22.0 (10.0-20.0) Serum Glucose 127 mg/dL (74-106) Calcium Level 9.6 mg/dL (8.7-10.4) Phosphorus Level 2.9 mg/dL (2.4-5.1) Magnesium Level 2.2 mg/dL (1.6-2.6) Total Bilirubin 0.3 mg/dL (0.2-1.0) Aspartate Amino Transferase (AST) 17 U/L (13-40) Alanine Aminotransferase (ALT) 17 U/L (7-40) Alkaline Phosphatase 62 U/L (46-116) Total Protein 7.5 g/dL (5.7-8.2) Albumin 4.0 g/dL (3.2-4.8) Test 05/25/24 22:54 05/25/24 17:30 05/25/24 06:12 05/24/24 12:57 Urine Color Light-yellow (Yellow) Urine Clarity Clear (Clear) Urine pH 5.0 (5.0-9.0) Urine Specific [place] 1.014 (1.001-1.035) Urine Protein Negative (Negative) Urine Ketones Negative (Negative) Urine Blood Negative /uL (Negative) Urine Nitrite Negative (Negative) Urine Bilirubin Negative (Negative) Urine Urobilinogen Normal mg/dL (Negative) Urine Leukocyte Esterase Negative /uL (Negative) Urine RBC <1 /hpf (0 - 3) Urine Microscopic WBC 1 /HPF (0-3) Urine Squamous Epithelial Cells Few /hpf (<5) Urine Bacteria None seen /hpf (None Seen) Urine Mucus Few (None Seen) Urine Glucose 2+ mg/dL (Normal) Urine Opiates Screen Pos (NEGATIVE) Urine Fentanyl Screen Neg (NEGATIVE) Urine Barbiturates Screen Neg (NEGATIVE) Urine Phencyclidine Screen Neg (NEGATIVE) Urine Amphetamines Screen Neg (NEGATIVE) Urine Benzodiazepines Screen Neg (NEGATIVE) Urine Cocaine Screen Neg (NEGATIVE) Urine Cannabinoids Screen Neg (NEGATIVE) Troponin I High Sensitivity 24 ng/L (</=54) B-Type Natriuretic Peptide 695.22 pg/mL (0-100) Lactic Acid Level 1.1 mmol/L (0.4-2.0) Other Laboratory Tests 05/29/24 04:46 05/28/24 06:44 Final Diagnosis/Problems List COPD exacerbation HF exacerbation Discharge Disposition: Home Discharge Instruct/Medications Diet: Consistent carbohydrate, Cardiac 2g Na,low cholest Activity: No Restrictions, As Tolerated Discharge Statement: "Patient was advised to return to the ER or call 911 if any headaches, dizziness, shortness of breath, chest pain, abdominal pain, bleeding, fevers, or worsening of medical condition. Patient was counseled about treatment plan, medications, possible side effects, patientverbalized understanding. All questions were answered to the best of my ability. This discharge took greater then 30 minutes in planning, reviewing documentation, counseling the patient, and discussing with other team members." ASSESSMENT ASSESSMENT Assessment COPD exacerbation HF exacerbation BK LAGUERRE MD May 29, 2024 13:31
--- NOTE | 2024-05-29 23:03 | DVHPN2 ---
Progress Note - Dictate Date Seen: May 29, 2024 Medical Necessity Reason Pt with a Central, PICC or Fol: No Subjective Patient was seen and evaluated in follow up. Patient has no new complaints at this time. Patient denies any cardiac symptoms. Patient is cardiac stable for discharge. Telemetry reviewed. vital signs Vital Sign Date Time Temp Pulse Resp B/P (MAP) Pulse Ox O2 Delivery O2 Flow Rate FiO2 05/29/24 10:01 112/55 05/29/24 09:18 98.2 61 20 100 98.2 05/29/24 07:42 Nasal Cannula 3.0 05/29/24 07:42 32 Total Intake and Output 05/28/24 05/28/24 05/29/24 15:00 23:00 07:00 Intake Total 0 ml 700 ml Output Total 1275 ml Balance 0 ml -575 ml medications Current Medications Medications Dose Ordered Sig/Yvette Route Start Time Stop Time Status Last Admin Dose Admin Enoxaparin Sodium 40 mg DAILY SC 05/25/24 10:00 05/29/24 10:08 40 MG Acetaminophen 650 mg Q6HP PRN PO 05/24/24 14:15 Aspirin 325 mg DAILY PO 05/25/24 10:00 05/28/24 10:00 325 MG Bupropion HCl 150 mg DAILY PO 05/25/24 10:00 05/29/24 10:02 150 MG Clopidogrel Bisulfate 75 mg DAILY PO 05/25/24 10:00 05/29/24 10:06 75 MG Acetaminophen/ Hydrocodone Bitart 1 tab Q6HP PRN PO 05/24/24 14:15 05/27/24 05:17 1 TAB Pantoprazole Sodium 40 mg QAM PO 05/25/24 07:00 05/29/24 06:15 40 MG Ranolazine 500 mg BID PO 05/24/24 22:00 05/29/24 10:05 500 MG Silver Sulfadiazine 1 applic DAILY TOP 05/25/24 10:00 Atorvastatin Calcium 80 mg HS PO 05/25/24 22:00 05/28/24 21:51 80 MG Patient Own Medication 1 tab DAILY PO 05/25/24 10:00 Gabapentin 800 mg BID PO 05/24/24 22:00 05/29/24 10:05 800 MG Levetiracetam 750 mg BID PO 05/24/24 22:00 05/29/24 10:03 750 MG Patient Own Medication 15 mg DAILY PO 05/25/24 10:00 Diagnostic Test (Pha) 1 strip ACHS 05/24/24 17:00 05/29/24 06:18 1 STRIP Insulin Human Regular ACHS SC 05/24/24 17:00 05/29/24 06:17 2 UNITS Dextrose 50 ml UD PRN IV 05/24/24 14:15 Albuterol 2.5 mg Q2HPRN PRN NEB 05/24/24 14:45 Albuterol 2.5 mg Q6HWA NEB 05/25/24 06:00 05/29/24 07:42 2.5 MG Ipratropium [place] 0.5 mg Q6HWA NEB 05/25/24 06:00 05/29/24 07:41 0.5 MG Prednisone 40 mg DAILY PO 05/26/24 10:00 05/29/24 10:04 40 MG Vancomycin HCl 0 ml @ 0 mls/hr UD IV 05/25/24 17:00 Furosemide 80 mg DAILY IV 05/29/24 10:00 05/29/24 10:01 80 MG objective GENERAL: Alert and oriented x 3. No acute distress. Morbidly obese. EYES: PERRL, EOMI. Anicteric. HENT: Moist mucous membranes. LUNGS: Clear to auscultation bilaterally. CARDIOVASCULAR: Regular rate and rhythm. ABDOMEN: Soft, non-tender and non-distended. EXTREMITIES: No edema. NEUROLOGIC: No focal neurological deficits. SKIN: Warm, dry. laboratory and microbiology Laboratory Tests 05/29/24 04:46 05/28/24 06:44 Test 05/28/24 06:44 Range/Units Serum Glucose 127 H 74-106 mg/dL Problem List Chest pain. Atrial fibrillation. Acute on chronic HFpEF. CAD s/p PCI. Breakthrough seizure. Chronic pain syndrome. History of SSS. Acute on chronic hypoxic respiratory failure. CVA w/ right residual. COPD. NIDDM. Morbid obesity. Assessment/Plan Continued all current supportive medical care. [place] for pain management. Aspirin, Lipitor, Plavix. DVT and GI prophylactics. Diuretics with Lasix. IV antibiotics as ordered. Additional plan as per the hospital course. Dietary Evaluation Review Recommendations by RD: Dietary education by RD Comments: 1) Initiate multivitamin @ 1 tb qd 2) Change 2g Na restriction to 60g CCHO cardiac diet d/t extensive hx of heart disease 3) Refer to outpatient RD/CDCDES for weight management 4) Consider nephrology consult d/t impaired renal function 5) Follow-up with neurology and cardiology 6) Continue to monitor I&O, labs, and skin integrity Expected Outcomes/Goals: 1) appetite and labs to improve 2) skin to improve 3) f/u in 3-5 days Plan discussed with: Patient ROHINI ABARCA MD May 29, 2024 11:46
== END 2024-05-29 17:24 | disposition home or self-care (01) | DRG 291 ==
LOC: ER 12:49 → EDBD 12:49 → EDUNIT# 12:49 → OVERFLOW 14:07 → TELE-WESTW 18:19 → TELE-CENTR 05-25 17:40
PROVIDERS: ADMIT Student in an Organized Health Care Education/Training Program; ATTEND Student in an Organized Health Care Education/Training Program
DX: I13.0 Hypertensive heart and chronic kidney disease with heart failure and stage 1 through stage 4 chronic kidney disease, or unspecified chronic kidney disease (principal); I50.33 Acute on chronic diastolic (congestive) heart failure; J96.21 Acute and chronic respiratory failure with hypoxia; N17.0 Acute kidney failure with tubular necrosis; J44.1 Chronic obstructive pulmonary disease with (acute) exacerbation; Z68.42 Body mass index [BMI] 45.0-49.9, adult; I69.351 Hemiplegia and hemiparesis following cerebral infarction affecting right dominant side; G40.909 Epilepsy, unspecified, not intractable, without status epilepticus; E78.5 Hyperlipidemia, unspecified; N18.9 Chronic kidney disease, unspecified; I48.91 Unspecified atrial fibrillation; E66.01 Morbid (severe) obesity due to excess calories; I25.10 Atherosclerotic heart disease of native coronary artery without angina pectoris; G89.4 Chronic pain syndrome; F32.A Depression, unspecified; F41.9 Anxiety disorder, unspecified; G47.33 Obstructive sleep apnea (adult) (pediatric); I49.5 Sick sinus syndrome; K21.9 Gastro-esophageal reflux disease without esophagitis; M54.9 Dorsalgia, unspecified; E11.22 Type 2 diabetes mellitus with diabetic chronic kidney disease; E89.0 Postprocedural hypothyroidism; I25.2 Old myocardial infarction; Z74.01 Bed confinement status; Z79.02 Long term (current) use of antithrombotics/antiplatelets; Z79.82 Long term (current) use of aspirin; Z79.84 Long term (current) use of oral hypoglycemic drugs; Z79.899 Other long term (current) drug therapy; Z81.8 Family history of other mental and behavioral disorders; Z82.3 Family history of stroke; Z82.49 Family history of ischemic heart disease and other diseases of the circulatory system; Z82.5 Family history of asthma and other chronic lower respiratory diseases; Z83.3 Family history of diabetes mellitus; Z95.0 Presence of cardiac pacemaker; Z95.5 Presence of coronary angioplasty implant and graft; Z99.81 Dependence on supplemental oxygen
CPT/HCPCS: 36415; 71045; 80048; 80053; 80202; 80307; 81001; 82565; 82962; 83605; 83735; 83880; 84100; 84484; 85025; 87040; 87077; 87081; 87186; 93005; 94640; 99291; G0378; J1815

== ENCOUNTER 2024-05-30 02:15 | Emergency (ER) | payer BC, OTHER ==
[~2024-05-30] VITALS: Ht 172.7 cm; Wt 127.0 kg
[~2024-05-30 02:15] MED LIST changes: -AMLO1TAB23 PO; +FURO1TAB31 PO; -FURO40TA4 PO; -HYDR50TA47 PO; -ISOS1TAB28 PO; -LOSA-534 PO; -METO25TA93 PO; +PRED20TA2 PO
--- NOTE | 2024-05-30 02:47 | ED.PDOC ---
HPI Comments 69 year old male came to ER via EMS due to chest pains. Patient picked up at home, morbidly obese, discharged yesterday here, and diagnosed of CHF and COPD exacerbation. Patient was unable to fill up his prescription. 30 minutes prior to arrival, he started having left sided chest pains, pressure, constant, 10/10 intensity, radiating down his left arm and associated with shortness of breath, nausea and dizziness. Patient was saturating at 91% on room air on scene Chief Complaint: Chest Pain Time Seen by MD: 02:45 Primary Care Provider: UNKNOWN Reviewed Notes: Nurses Notes Allergies: Coded Allergies: NO KNOWN ALLERGIES (Unverified , 10/04/22) Home Meds Active Scripts Furosemide (Lasix) 40 Mg Tab, 40 MG PO BID for 30 Days, #60 TAB Prov:BK LAGUERRE MD 05/29/24 Prednisone (Prednisone) 20 Mg Tab, 40 MG PO DAILY for 5 Days, #5 MG Prov:BK LAGUERRE MD 05/29/24 Hydrocodone-Acetaminophen (Hydrocodone Bitartrate/AC 10-325 mg) 1 Tab Tab, 1 TAB PO QID PRN, #30 TAB Prov:CYDNEY MCGARRY MD 05/08/24 Hydrocodone-Acetaminophen (Hydrocodone Bitartrate/AC 5-325 mg) 1 Tab Tab, 1 TAB PO Q6HP PRN, #15 TAB Prov:DANIEL OLIVAREZ MD 02/28/24 Ranolazine (Ranexa) 500 Mg Tab, 500 MG PO BID for 30 Days, #60 TAB Prov:JUSTIN DUARTE MD 10/22/18 Reported Medications Budesonide-Formoterol Fumarate (Budesonide/Formoterol Fum 160-4.5 Mcg/Act) 1 Aer Aer, 2 PUFF IN BID for 30 Days, #10.2 02/26/24 Midodrine HCl (Midodrine Hydrochloride) 5 Mg Tab, 1 TAB PO TID for 30 Days, #90 02/26/24 Potassium Chloride (Potassium Chloride ER) 10 Meq Tab, 1 TAB PO BID for 30 Days, #60 02/26/24 Aspirin (Aspirin Regular Strength) 325 Mg Tab, 1 TAB PO DAILY for 30 Days, #30 02/26/24 Lactulose (Lactulose) 10 Gm/15 Ml Rachna, 15 ML PO BID PRN for 15 Days, #473 02/26/24 Atorvastatin Calcium (Lipitor) 80 Mg Tab, 1 TAB PO DAILY for 30 Days, #30 02/26/24 Levetiracetam (Levetiracetam) 750 Mg Tab, 1 TAB PO BID for 30 Days, #60 02/26/24 Lidocaine (Lidocaine Topical Pain Pa) 4 % Pad, 1 PATCH TOP DAILY 06/28/23 Gabapentin (Gabapentin) 800 Mg Tab, 1 TAB PO BID for 30 Days, #60 06/28/23 Ipratropium-Albuterol (COMBIVENT RESPIMAT) Respimat Aer, 1 PUFF INH QID 05/14/23 Methocarbamol (Methocarbamol) 500 Mg Tab, 1.5 TAB PO Q8HR PRN for 8 Days, #40 05/14/23 Dapagliflozin Propanediol (Farxiga) 10 Mg Tab, 1 TAB PO DAILY for 30 Days, #30 05/14/23 Beclomethasone Dipropionate (Qvar Redihaler) 80 Mcg/Act Aer, 1 PUFF INH BID for 30 Days, #10.6 02/27/23 Silver Sulfadiazine (Silver Sulfadiazine) 1 % Cre, 1 APPLIC TOP DAILY for 30 Days, #50 02/27/23 Oxybutynin Chloride (Ditropan Xl) 5 Mg Tab, 15 MG PO DAILY for 30 Days, #30 02/27/23 Trazodone Hcl (Trazodone Hcl) 100 Mg Tab, 4 TAB PO HS for 30 Days, #120 02/27/23 Clopidogrel Bisulfate (CLOPIDOGREL) 75 Mg Tab, 1 TAB PO DAILY for 30 Days, #30 02/07/23 Pantoprazole Sodium Sesquihydr (Pantoprazole Sodium) 40 Mg Tab, 1 TAB PO QAM 02/07/23 Bupropion Hcl (Bupropion Hcl) 75 Mg Tab, 2 TAB PO DAILY for 30 Days, #60 11/10/17 Discontinued Reported Medications Furosemide (Furosemide) 40 Mg Tab, 0.5 TAB PO BID for 30 Days, #30 TAKE 1/2 TABLET (20 MG) BY MOUTH TWICE DAILY. 02/26/24 Isosorbide Mononitrate (Isosorbide Mononitrate Er) 30 Mg Tab, 1 TAB PO DAILY for 30 Days, #30 02/26/24 Amlodipine Besylate (Amlodipine Besylate) 10 Mg Tab, 1 TAB PO DAILY for 30 Days, #30 02/26/24 Losartan Potassium (Losartan Potassium) 50 Mg Tab, 0.5 TAB PO DAILY for 30 Days, #15 TAKE 1/2 TABLET (25 MG) BY MOUTH DAILY. 02/26/24 Hydralazine Hcl (Hydralazine Hcl) 50 Mg Tab, 1 TAB PO TID PRN for 30 Days, #90 05/14/23 Metoprolol Succinate (Metoprolol Succinate Er) 25 Mg Tab, 1 TAB PO DAILY for 30 Days, #30 02/27/23 Information Source: Patient, Emergency Med Personnel Mode of Arrival: EMS Severity: Moderate Timing: Hours Duration: Since onset Prehospital treatment: 12 Lead EKG, Oxygen Location: Chest (L) Radiation: Arm (L) Quality: Pressure Onset: With Light Exertion Cardiac Risk Factors: HTN PE Risk Factors: None History of: Similar pain in past Associated Signs and Symptoms: SOB Review of Systems REVIEW OF SYSTEMS: No fever, no chills, or fatigue HEENT: No sore throat, no earache, no congestion, no neck pain. Cardiac: (+) chest pain. No palpitations. Lungs: (+) shortness of breath, no cough. GI: (+) nausea, no vomiting, no diarrhea, no constipation, no abdominal pain : No dysuria, frequency, or urgency. No hematuria. Musculoskeletal: No joint pain , no joint swelling, no extremity edema. Skin: No rash, no itching. Neuro: No headache, (+) dizziness, no weakness Vital Signs Vital Signs Date Time Temp Pulse Resp B/P (MAP) Pulse Ox O2 Delivery O2 Flow Rate FiO2 05/30/24 09:35 98.2 77 18 109/62 (78) 99 98.2 05/30/24 07:30 Nasal Cannula* 2 28 Physical Exam General: Awake, alert and oriented. No acute distress. Skin: Skin in warm, dry and intact. Appropriate color for ethnicity. Nailbeds pink with no cyanosis. HEENT: The head is normocephalic and atraumatic. Conjunctivae are clear without exudates or hemorrhage. Sclera is non-icteric. EOM are intact. No signs of nystagmus. Eyelids are normal in appearance without swelling or lesions. Oral mucosa is pink and moist Neck: The neck is supple with normal range of motion. No JVD. Cardiac: Heart rate and rhythm are normal. No murmurs, gallops, or rubs are auscultated. Respiratory: No signs of respiratory distress. Lung sounds are clear in all lobes bilaterally without rales, rhonchi, or wheezes. Abdominal: Abdomen is soft, non-tender without distention. Bowel sounds are present and normoactive in all four quadrants. Extremities: Upper and lower extremities are atraumatic in appearance without deformity or edema. Neurological: The patient is awake, alert and oriented to person, place, and time with normal speech. Speech is clear. There is no facial asymmetry. Psychiatric: Appropriate mood and affect. Good judgement and insight. No visual or auditory hallucinations. Past Medical History PAST MEDICAL HISTORY: Angina, Anxiety, Asthma, CAD, CHF, CKF, COPD, CVA, Depression, DM, GERD, High Lipids, HTN, Liver, [place], MRSA, TIA, UTI'S Surgical History: Appendectomy, Cholecystectomy, PTCA, Thyroidectomy Family History Family History: Reviewed,noncontributory to illness, Unknown Social History Smoker: Non-Smoker Alcohol: Denies ETOH Use Drugs: Denies Drug Use Lives In: Home Was a procedure done? Was a procedure done?: No CP Differential Dx Differential Diagnosis: Angina, Anxiety / Panic Attack, Pulmonary Embolus Differential Diagnosis: CHF Differential Diagnosis: Angina, Chest Wall Pain, Costochondritis, Esophageal reflux/spasm, Gastritis, Myocardial Infarction X-Ray, Labs, Meds, VS Vital Signs Date Time Temp Pulse Resp B/P (MAP) Pulse Ox O2 Delivery O2 Flow Rate FiO2 05/30/24 09:35 98.2 77 18 109/62 (78) 99 98.2 05/30/24 09:00 98.1 57 16 109/62 (78) 100 98.1 05/30/24 07:30 77 18 99 Nasal Cannula* 2 28 05/30/24 07:00 98.4 72 16 127/71 (89) 97 98.4 05/30/24 06:35 98.0 05/30/24 06:30 98.3 64 14 140/98 (112) 97 98.3 05/30/24 05:20 88 05/30/24 05:18 98.1 05/30/24 04:56 67 15 97 Nasal Cannula* 2 28 05/30/24 04:00 98.3 68 15 138/97 (111) 97 98.3 05/30/24 03:49 66 05/30/24 02:20 69 05/30/24 02:15 98.7 111 18 136/70 (92) 97 98.7 Lab Test 05/30/24 06:15 05/30/24 03:58 05/30/24 03:08 Range/Units Troponin I High Sensitivity 34 38 45 </=54 ng/L White Blood Count 10.3 # 4.4-10.8 10^3/uL Red Blood Count 3.72 L 4.5-5.90 10^6/uL Hemoglobin 11.4 L 13.5-17.5 g/dL Hematocrit 34.4 #L 41.0-53.0 % Mean Corpuscular Volume 92.4 80.0-100.0 fL Mean Corpuscular Hemoglobin 30.5 28.0-32.0 pg Mean Corpuscular Hemoglobin Concent 33.0 32.0-36.0 g/dL Red Cell Distribution Width 14.9 H 11.8-14.3 % Platelet Count 177 140-450 10^3/uL Mean Platelet Volume 10.0 6.9-10.8 fL Neutrophils (%) (Auto) 78.8 37.0-80.0 % Lymphocytes (%) (Auto) 13.4 10.0-50.0 % Monocytes (%) (Auto) 7.5 0.0-12.0 % Eosinophils (%) (Auto) 0.0 0.0-7.0 % Basophils (%) (Auto) 0.3 0.0-2.0 % Neutrophils # (Auto) 8.1 1.6-8.6 10 ^3/uL Lymphocytes # (Auto) 1.4 0.4-5.4 10 ^3/uL Monocytes # (Auto) 0.8 0-1.3 10 ^3/uL Eosinophils # (Auto) 0 0-0.8 10 ^3/uL Basophils # (Auto) 0 0-0.2 10 ^3/uL Nucleated Red Blood Cells 0.1 % Sodium Level 138 136-145 mmol/L Potassium Level 3.7 3.5-5.1 mmol/L Chloride Level 106 98-107 mmol/L Carbon Dioxide Level 25 20-31 mmol/L Anion Gap 7 5-15 Blood Urea Nitrogen 47 H 9-23 mg/dL Creatinine 2.12 H 0.700-1.30 mg/dL Glomerular Filtration Rate Calc 33 >90 mL/min BUN/Creatinine Ratio 22.2 H 10.0-20.0 Serum Glucose 110 H 74-106 mg/dL Calcium Level 9.7 8.7-10.4 mg/dL Total Bilirubin 0.2 0.2-1.0 mg/dL Aspartate Amino Transferase (AST) 15 13-40 U/L Alanine Aminotransferase (ALT) 19 7-40 U/L Alkaline Phosphatase 65 46-116 U/L B-Type Natriuretic Peptide 336.94 0-100 pg/mL Total Protein 7.5 5.7-8.2 g/dL Albumin 3.9 3.2-4.8 g/dL Current Medications Medications (Trade) Dose Ordered Sig/Yvette Route Start Time Stop Time Status Last Admin Aspirin 324 mg ONCE ONCE PO 05/30/24 02:45 05/30/24 02:46 DC 05/30/24 04:09 Acetaminophen (Tylenol Tablet) 1,000 mg ONCE ONCE PO 05/30/24 05:15 05/30/24 05:16 DC 05/30/24 05:18 Patient alert. Came in because of chest pain. Chronic condition. Cardiac marker within normal limits. Chest pain-free. Has been discharged recently from [facility]. Has been seen here many times for same condition. Dr. Kwong wanted the patient to be discharged. She has a examined the patient from the time he arrived. Reviewed his previous visits. He will need placement. Patient refused placement. He was told many times that he will need to be admitted for placement. He insists on leaving. He states that he has family that can take care of him. He is chest pain-free. He does not have shortness a breath. His heart rate within normal limits. He is baseline. Images Reviewed?: Images reviewed and evaluated by me (Independent interpretation of chest x-ray: No acute disease) Time of 1ST Reevaluation: 06:01 Reevaluation 1ST: Improved Patient Education/Counseling: Diagnosis, Treatment, Prognosis Family Education/Counseling: No Family Present Departure 1 Departure Time of Disposition: 06:05 Impression: Primary Impression: Chest pain Qualified Codes: R07.9 - Chest pain, unspecified Disposition: 09 ADMITTED INPATIENT Condition: Good Comments 69-year-old male with a history of diastolic heart failure, [place], CKD, COPD, CVA, bed-bound, hypertension, hyperlipidemia, diabetes, coronary artery disease status post PCI presents to the emergency department with chest pain. Patient was recently admitted to this facility for chest pain and seen by Cardiology 4 days ago (05/26/24). At that time Dr. Montesinos recommended no cardiac intervention. Patient's troponins were negative at that time as well. EKG also showed a paced rhythm. Serial EKGs. Sign out to oncoming provider pending final troponin and disposition. Extensive evaluation was performed in attempt to identify or rule out: (See differential diagnosis section) The following tests were ordered, and results were reviewed by me and discussed with patient: (See diagnostic results section) The following test were independently interpreted by me: EKG, chest X ray I reviewed and agreed with the following test results read by other providers: Chest x-ray I reviewed the following notes from the pt's past medical encounters: Recent hospitalization 05/24/2024 Myocardial perfusion study 02/26/2024: INFORMATION: * There is a normal perfusion of the anterior wall, lateral wall, inferoposterior wall of the left ventricle in pre and post stress images. * Ejection fraction of 60%. Additional information was gathered from interviewing the following independent historians: EMS personnel Discussion of management or test interpretation with external physician/other qualified health laboratory animal care veterinarian: N/A Critical Care Note Critical Care Time?: Yes (35 min-critical care time only) Critical care comment: Acute chest pains Stability Stability form required: No Heart Score Heart Score: Heart Score Response (Comments) Value History Moderate Suspicious 1 EKG Repolarization Disturb 1 Age >65 2 Risk Factors >3 or Hx ASHD 2 Troponin Normal limit 0 Total 6 I personally scribed for JOSIAH VARNER MD ([email or web address]) on 05/30/24 at 02:47. Electronically submitted by Mateo Fernando ([email or web address]). JOSIAH VARNER MD May 30, 2024 02:47 ROSELYN CHANG MD May 30, 2024 07:58
[2024-05-30 03:18] LABS: Basophils # (auto) 0 10 ^3/uL (0-0.2); Basophils % (auto) 0.3 % (0.0-2.0); Eosinophils # (auto) 0 10 ^3/uL (0-0.8); Hematocrit 34.4 % (41.0-53.0); Hemoglobin 11.4 g/dL (13.5-17.5); Lymphocytes # (auto) 1.4 10 ^3/uL (0.4-5.4); Lymphocytes % (auto) 13.4 % (10.0-50.0); Mean Corpuscular Hemoglobin 30.5 pg (28.0-32.0); Mean Corpuscular Volume 92.4 fL (80.0-100.0); Monocytes # (auto) 0.8 10 ^3/uL (0-1.3); Monocytes % (auto) 7.5 % (0.0-12.0); Neutrophils # (auto) 8.1 10 ^3/uL (1.6-8.6); Neutrophils % (auto) 78.8 % (37.0-80.0); Nucleated Red Blood Cells % 0.1 %; Platelet Count (auto) 177 10^3/uL (140-450); Red Blood Cells 3.72 10^6/uL (4.5-5.90); Red Cell Distribution Width 14.9 % (11.8-14.3); White Blood Cell 10.3 10^3/uL (4.4-10.8)
[2024-05-30 04:00] LABS: Alanine Aminotransferase 19 U/L (7-40); Albumin 3.9 g/dL (3.2-4.8); Alkaline Phosphatase 65 U/L (46-116); Anion Gap 7 (5-15); Aspartate Aminotransferase 15 U/L (13-40); BUN/Creatinine Ratio 22.2 (10.0-20.0); Calcium 9.7 mg/dL (8.7-10.4); Carbon Dioxide 25 mmol/L (20-31); Chloride 106 mmol/L (98-107); Potassium 3.7 mmol/L (3.5-5.1); Sodium 138 mmol/L (136-145); Total Protein 7.5 g/dL (5.7-8.2)
[2024-05-30 04:07] LABS: Bilirubin, Total 0.2 mg/dL (0.2-1.0); Blood Urea Nitrogen 47 mg/dL (9-23); Glucose 110 mg/dL (74-106)
[2024-05-30] MEDS: ASPirin 81 mg TAB PO ONE (04:09)
--- NOTE | 2024-05-30 04:53 | ECG ---
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
[2024-05-30 04:56] VITALS: PULSE 67; RESP 15; O2SAT 97
--- NOTE | 2024-05-30 05:13 | DVH ---
EXAM: XY CHEST XRAY 1 VIEW Indication: cp Technique: Single frontal view of the chest was obtained Comparison: XY CHEST PORTABLE on DOS: 05/24/24, XY CHEST PORTABLE on DOS: 05/05/24, XY CHEST PORTABLE on DOS: 02/24/24, XY CHEST PORTABLE on DOS: 11/05/23, XY CHEST XRAY 1 VIEW on DOS: 07/04/23 FINDINGS: Lines and Tubes: None Lungs: No focal consolidation. Mild pulmonary vascular congestion. Pleura: No effusion. No pneumothorax. Cardiomediastinal contours: Cardiomegaly. Bones: No acute osseous abnormality. IMPRESSION: Cardiomegaly. Mild pulmonary vascular congestion.
[2024-05-30] MEDS: ACETAMINOPHEN 325 MG TAB PO ONE (05:18)
--- NOTE | 2024-05-30 06:27 | ECG ---
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
[2024-05-30 07:30] VITALS: PULSE 77; RESP 18; O2SAT 99
[2024-05-30 09:35] VITALS: BP 109/62; PULSE 77; RESP 18; TEMP 98.2; O2SAT 99
--- NOTE | 2024-05-30 11:39 | ECG ---
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
== END 2024-05-30 16:52 | disposition home or self-care (01) ==
LOC: ER 02:15 → EDBD 02:15 → ER 16:52
DX: R07.89 Other chest pain (principal); R06.02 Shortness of breath; M79.602 Pain in left arm; I11.0 Hypertensive heart disease with heart failure; I50.9 Heart failure, unspecified; E11.9 Type 2 diabetes mellitus without complications; F32.A Depression, unspecified; F41.9 Anxiety disorder, unspecified; J44.9 Chronic obstructive pulmonary disease, unspecified; E66.01 Morbid (severe) obesity due to excess calories; Z79.82 Long term (current) use of aspirin; Z79.84 Long term (current) use of oral hypoglycemic drugs; Z79.899 Other long term (current) drug therapy; Z86.73 Personal history of transient ischemic attack (TIA), and cerebral infarction without residual deficits; Z90.49 Acquired absence of other specified parts of digestive tract; Z90.89 Acquired absence of other organs; Z87.440 Personal history of urinary (tract) infections
CPT/HCPCS: 36415; 71045; 80053; 83880; 84484; 85025; 93005

== ENCOUNTER 2024-07-01 09:21 | Emergency (ER) | payer BC, OTHER ==
[~2024-07-01] VITALS: Ht 167.6 cm; Wt 158.3 kg
--- NOTE | 2024-07-01 09:51 | ED.PDOC ---
History of Present Illness HPI Comments 69-year-old male with multiple comorbidities brought in by EMS presents with a chief complaint of chest pain and SOB. Patient was just released and discharged from [facility] and then was en route to his home via medical transport. While on the way home in the medical transport, patient called EMS. Patient is still in hospital gown from [facility]. Patient was told based on his presentation with symptoms he more than likely will be admitted to the hospital. Chief Complaint: Chest Pain Time Seen by MD: 09:32 Primary Care Provider: marie Reviewed Notes: Medications, Allergies Allergies: Coded Allergies: NO KNOWN ALLERGIES (Unverified , 10/04/22) Home Meds Active Scripts Furosemide (Lasix) 40 Mg Tab, 40 MG PO BID for 30 Days, #60 TAB Prov:BK LAGUERRE MD 05/29/24 Prednisone (Prednisone) 20 Mg Tab, 40 MG PO DAILY for 5 Days, #5 MG Prov:BK LAGUERRE MD 05/29/24 Hydrocodone-Acetaminophen (Hydrocodone Bitartrate/AC 10-325 mg) 1 Tab Tab, 1 TAB PO QID PRN, #30 TAB Prov:CYDNEY MCGARRY MD 05/08/24 Hydrocodone-Acetaminophen (Hydrocodone Bitartrate/AC 5-325 mg) 1 Tab Tab, 1 TAB PO Q6HP PRN, #15 TAB Prov:DANIEL OLIVAREZ MD 02/28/24 Ranolazine (Ranexa) 500 Mg Tab, 500 MG PO BID for 30 Days, #60 TAB Prov:JUSTIN DUARTE MD 10/22/18 Reported Medications Budesonide-Formoterol Fumarate (Budesonide/Formoterol Fum 160-4.5 Mcg/Act) 1 Aer Aer, 2 PUFF IN BID for 30 Days, #10.2 02/26/24 Midodrine HCl (Midodrine Hydrochloride) 5 Mg Tab, 1 TAB PO TID for 30 Days, #90 02/26/24 Potassium Chloride (Potassium Chloride ER) 10 Meq Tab, 1 TAB PO BID for 30 Days, #60 02/26/24 Aspirin (Aspirin Regular Strength) 325 Mg Tab, 1 TAB PO DAILY for 30 Days, #30 02/26/24 Lactulose (Lactulose) 10 Gm/15 Ml Rachna, 15 ML PO BID PRN for 15 Days, #473 02/26/24 Atorvastatin Calcium (Lipitor) 80 Mg Tab, 1 TAB PO DAILY for 30 Days, #30 02/26/24 Levetiracetam (Levetiracetam) 750 Mg Tab, 1 TAB PO BID for 30 Days, #60 02/26/24 Lidocaine (Lidocaine Topical Pain Pa) 4 % Pad, 1 PATCH TOP DAILY 06/28/23 Gabapentin (Gabapentin) 800 Mg Tab, 1 TAB PO BID for 30 Days, #60 06/28/23 Ipratropium-Albuterol (COMBIVENT RESPIMAT) Respimat Aer, 1 PUFF INH QID 05/14/23 Methocarbamol (Methocarbamol) 500 Mg Tab, 1.5 TAB PO Q8HR PRN for 8 Days, #40 05/14/23 Dapagliflozin Propanediol (Farxiga) 10 Mg Tab, 1 TAB PO DAILY for 30 Days, #30 05/14/23 Beclomethasone Dipropionate (Qvar Redihaler) 80 Mcg/Act Aer, 1 PUFF INH BID for 30 Days, #10.6 02/27/23 Silver Sulfadiazine (Silver Sulfadiazine) 1 % Cre, 1 APPLIC TOP DAILY for 30 Days, #50 02/27/23 Oxybutynin Chloride (Ditropan Xl) 5 Mg Tab, 15 MG PO DAILY for 30 Days, #30 02/27/23 Trazodone Hcl (Trazodone Hcl) 100 Mg Tab, 4 TAB PO HS for 30 Days, #120 02/27/23 Clopidogrel Bisulfate (CLOPIDOGREL) 75 Mg Tab, 1 TAB PO DAILY for 30 Days, #30 02/07/23 Pantoprazole Sodium Sesquihydr (Pantoprazole Sodium) 40 Mg Tab, 1 TAB PO QAM 02/07/23 Bupropion Hcl (Bupropion Hcl) 75 Mg Tab, 2 TAB PO DAILY for 30 Days, #60 11/10/17 Information Source: Patient, Emergency Med Personnel Mode of Arrival: EMS Severity: Moderate Timing: Days Duration: Since onset Prehospital treatment: [employer], Oxygen Past Medical History PAST MEDICAL HISTORY: Angina, Anxiety, Asthma, CAD, CHF, CKF, COPD, CVA, Depression, DM, GERD, High Lipids, HTN, Liver, [place], MRSA, TIA, UTI'S Surgical History: Appendectomy, Cholecystectomy, PTCA, Thyroidectomy Family History Family History: Reviewed,noncontributory to illness, Unknown Social History Smoker: Non-Smoker Alcohol: Denies ETOH Use Drugs: Denies Drug Use Lives In: Home Constitutional: denies: chills, diaphoresis, fatigue, fever, malaise, sweats, weakness, others EENTM: denies: blurred vision, double vision, ear bleeding, ear discharge, ear drainage, ear pain, ear ringing, eye pain, eye redness, hearing loss, mouth pain, mouth swelling, nasal discharge, nose bleeding, nose congestion, nose pain, photophobia, tearing, throat pain, throat swelling, voice changes, others Respiratory: reports: shortness of breath; denies: cough, hemoptysis, orthopnea, SOB at rest, SOB with excertion, stridor, wheezing, others Cardiovascular: reports: chest pain; denies: dizzy spells, diaphoresis, Dyspnea on exertion, edema, irregular heart beat, left arm pain, lightheadedness, palpitations, PND, syncope, others Gastrointestinal: denies: abdomen distended, abdominal pain, blood streaked bowels, constipated, diarrhea, dysphagia, difficulty swallowing, hematemesis, melena, nausea, poor appetite, poor fluid intake, rectal bleeding, rectal pain, vomiting, others Genitourinary: denies: burning, dysuria, flank pain, frequency, hematuria, incontinence, penile discharge, penile sore, pain, testicle pain, testicle swelling, urgency, others Neurological: denies: dizziness, fainting, headache, left sided numbness, left sided weakness, numbness, paresthesia, pre-existing deficit, right sided numbness, right sided weakness, seizure, speech problems, tingling, tremors, weakness, others Musculoskeletal: denies: back pain, gout, joint pain, joint swelling, muscle pain, muscle stiffness, neck pain, others Integumetry: denies: bruises, change in color, change in hair/nails, dryness, laceration, lesions, lumps, rash, wounds, others Allergic/Immunocompromised: denies: Difficulty Healing, Frequent Infections, Hives, Itching, others Hematologic/Lymphatic: denies: anemia, blood clots, easy bleeding, easy bruising, swollen glands, others Endocrine: denies: excessive hunger, excessive sweating, excessive thirst, excessive urination, flushing, intolerance to cold, intolerance to heat, unexplained weight gain, unexplained weight loss, others Psychiatric: denies: anxiety, bipolar disorder, depression, hopeless, panic disorder, schizophrenia, sleepless, suicidal, others All Other Systems: Reviewed and Negative Physical Exam General Appearance: Moderate Distress, Normal HEENT: Normal ENT Inspection, Pharynx Normal, TMs Normal Neck: Full Range of Motion, Non-Tender, Normal, Normal Inspection Respiratory: Chest Non-Tender, Lungs Clear, No Accessory Muscle Use, No Respiratory Distress, Normal Breath Sounds Cardiovascular: No Edema, No JVD, No Murmur, No Gallop, Normal Peripheral Pulses, Regular Rate/Rhythm Breast Exam: Deferred Gastrointestinal: No Organomegaly, Non Tender, No Pulsatile Mass, Normal Bowel Sounds, Soft Genitalia: Deferred Pelvic: Deferred Rectal: Deferred Extremities: No calf tenderness, Normal capillary refill, Pedal edema Musculoskeletal : Apperance: Normal Neurologic: Alert, front man II-XII nml as Tested, No Motor Deficits, Normal Affect, Normal Mood, No Sensory Deficits Cerebellar Function: NOT DONE Reflexes: NOT DONE Skin: Dry, Normal Color, Warm Peripheral Pulses: 3+ Radial (R), 3+ Radial (L) Lymphatic: No Adenopathy Was a procedure done? Was a procedure done?: No Differential Dx Considerations may include: Chest pain CHF X-Ray, Labs, Meds, VS Vital Signs Date Time Temp Pulse Resp B/P (MAP) Pulse Ox O2 Delivery O2 Flow Rate FiO2 07/01/24 09:32 98.1 94 16 130/72 (91) 93 98.1 07/01/24 09:26 66 Lab Test 07/01/24 10:40 07/01/24 09:48 Range/Units Troponin I High Sensitivity 20 21 </=54 ng/L White Blood Count 5.7 4.4-10.8 10^3/uL Red Blood Count 3.79 L 4.5-5.90 10^6/uL Hemoglobin 11.1 L 13.5-17.5 g/dL Hematocrit 34.4 L 41.0-53.0 % Mean Corpuscular Volume 90.7 80.0-100.0 fL Mean Corpuscular Hemoglobin 29.2 28.0-32.0 pg Mean Corpuscular Hemoglobin Concent 32.2 32.0-36.0 g/dL Red Cell Distribution Width 16.4 H 11.8-14.3 % Platelet Count 157 140-450 10^3/uL Mean Platelet Volume 10.3 6.9-10.8 fL Neutrophils (%) (Auto) 50.5 37.0-80.0 % Lymphocytes (%) (Auto) 34.5 10.0-50.0 % Monocytes (%) (Auto) 8.7 0.0-12.0 % Eosinophils (%) (Auto) 5.5 0.0-7.0 % Basophils (%) (Auto) 0.8 0.0-2.0 % Neutrophils # (Auto) 2.9 1.6-8.6 10 ^3/uL Lymphocytes # (Auto) 2.0 0.4-5.4 10 ^3/uL Monocytes # (Auto) 0.5 0-1.3 10 ^3/uL Eosinophils # (Auto) 0.3 0-0.8 10 ^3/uL Basophils # (Auto) 0 0-0.2 10 ^3/uL Nucleated Red Blood Cells 0.1 % Sodium Level 146 H 136-145 mmol/L Potassium Level 4.2 3.5-5.1 mmol/L Chloride Level 110 H 98-107 mmol/L Carbon Dioxide Level 29 20-31 mmol/L Anion Gap 7 5-15 Blood Urea Nitrogen 20 9-23 mg/dL Creatinine 1.45 H 0.700-1.30 mg/dL Glomerular Filtration Rate Calc 52 >90 mL/min BUN/Creatinine Ratio 13.8 10.0-20.0 Serum Glucose 93 74-106 mg/dL Calcium Level 9.8 8.7-10.4 mg/dL Patient alert. He comes here regularly. Recently discharged from [facility]. Has been here many times for the same symptom. Sodium level elevated. Cardiac marker within normal limits. EKG does show paced rhythm. Recommend placement. Explained to the patient that he will be admitted for placement. Patient does not want to be at in a halfway. Continue to monitor. No sign of distress. He does come here very frequently. Discussed with hospitalist pain We all decided he is safe to go home. Explained to the patient about his condition reviewed the labs. Was told to follow up with his primary care physician. Was told to come back if there is any problem. Time of 1ST Reevaluation: 10:02 Reevaluation 1ST: Improved Time of 2ND Reevaluation: 12:48 Reevaluation 2ND: Improved Patient Education/Counseling: Diagnosis, Treatment Family Education/Counseling: No Family Present Departure 1 Departure Time of Disposition: 10:51 Impression: Primary Impression: Musculoskeletal chest pain Disposition: 01 HOME / SELF CARE / HOMELESS Condition: Guarded Comments 10:35 - SPOKE WITH PATIENT AND INFORMED HIM THAT DUE TO HIS PRESENTATION AND SYMPTOMS, HE WILL BE ADMITTED TO THE HOSPITAL. PATIENT IS IN AGREEMENT WITH THE PLAN OF CARE. Critical Care Note Critical Care Time?: No Stability Stability form required: No Heart Score Heart Score: Heart Score Response (Comments) Value History Slightly Suspicious 0 EKG Normal 0 Age >65 2 Risk Factors >3 or Hx ASHD 2 Troponin Normal limit 0 Total 4 I personally scribed for ROSELYN CHANG MD ([email or web address]) on 07/01/24 at 09:51. Electronically submitted by Galdino Trammell ([email or web address]). ROSELYN CHANG MD July 01, 2024 09:51
[2024-07-01] MEDS: ASPirin 325 MG TAB PO ONE (10:00)
[2024-07-01 10:06] LABS: Basophils # (auto) 0 10 ^3/uL (0-0.2); Basophils % (auto) 0.8 % (0.0-2.0); Eosinophils # (auto) 0.3 10 ^3/uL (0-0.8); Eosinophils % (auto) 5.5 % (0.0-7.0); Hematocrit 34.4 % (41.0-53.0); Hemoglobin 11.1 g/dL (13.5-17.5); Lymphocytes % (auto) 34.5 % (10.0-50.0); Mean Corpuscular Hemoglobin 29.2 pg (28.0-32.0); Mean Corpuscular Hgb Conc. 32.2 g/dL (32.0-36.0); Mean Corpuscular Volume 90.7 fL (80.0-100.0); Monocytes # (auto) 0.5 10 ^3/uL (0-1.3); Monocytes % (auto) 8.7 % (0.0-12.0); Neutrophils # (auto) 2.9 10 ^3/uL (1.6-8.6); Neutrophils % (auto) 50.5 % (37.0-80.0); Nucleated Red Blood Cells % 0.1 %; Platelet Count (auto) 157 10^3/uL (140-450); Red Blood Cells 3.79 10^6/uL (4.5-5.90); Red Cell Distribution Width 16.4 % (11.8-14.3); White Blood Cell 5.7 10^3/uL (4.4-10.8)
[2024-07-01 10:17] LABS: Potassium 4.2 mmol/L (3.5-5.1)
[2024-07-01 10:18] LABS: Anion Gap 7 (5-15); Carbon Dioxide 29 mmol/L (20-31)
[2024-07-01 10:19] LABS: Calcium 9.8 mg/dL (8.7-10.4); Chloride 110 mmol/L (98-107); Sodium 146 mmol/L (136-145)
[2024-07-01 10:23] LABS: BUN/Creatinine Ratio 13.8 (10.0-20.0); Blood Urea Nitrogen 20 mg/dL (9-23); Glucose 93 mg/dL (74-106)
[2024-07-01 12:48] VITALS: BP 157/102; PULSE 58; RESP 18; TEMP 98.3; O2SAT 96
--- NOTE | 2024-07-01 18:51 | ECG ---
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
== END 2024-07-01 22:10 | disposition home or self-care (01) ==
LOC: EDBD 09:21 → ER 09:21
DX: R07.89 Other chest pain (principal); F41.9 Anxiety disorder, unspecified; F32.A Depression, unspecified; I11.0 Hypertensive heart disease with heart failure; I50.9 Heart failure, unspecified; I25.10 Atherosclerotic heart disease of native coronary artery without angina pectoris; E11.9 Type 2 diabetes mellitus without complications; Z86.73 Personal history of transient ischemic attack (TIA), and cerebral infarction without residual deficits; Z90.49 Acquired absence of other specified parts of digestive tract; Z90.89 Acquired absence of other organs; Z79.899 Other long term (current) drug therapy; Z79.82 Long term (current) use of aspirin
CPT/HCPCS: 36415; 80048; 84484; 85025; 93005

== ENCOUNTER 2024-08-28 22:12 | Inpatient (IN) | payer BC, OTHER ==
[~2024-08-28] VITALS: Ht 165.1 cm; Wt 101.0 kg
--- NOTE | 2024-08-28 22:32 | ECG ---
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
[2024-08-28 23:00] VITALS: O2SAT 94
[2024-08-28 23:11] LABS: Base Excess 0.4 mmol/L (-2.0-3.0)
--- NOTE | 2024-08-28 23:17 | ED.PDOC ---
SOB-HPI HPI Comments 69-year-old male who came to ER via EMS for shortness of breath. Patient has a history of CHF and COPD. He is on home oxygen at 4 L/min. Has been experiencing shortness a breath for the past 2 days, progressively worsening today. States he has been off his oxygen for the past day. Was saturating 88% on room air on scene. Was given breathing treatments, and it improved to 96%. Chief Complaint: Shortness of Breath Time Seen by MD: 23:16 Primary Care Provider: marie Reviewed notes: [employer] Notes Information Source: Patient, Emergency Med Personnel Mode of Arrival: EMS Severity: Moderate Timing: Days Duration: Since onset Context: At Rest, With Light Exertion History of: COPD, CHF Prehospital treatment: Breathing Tx, Oxygen Review of Systems REVIEW OF SYSTEMS: No fever, no chills, or fatigue HEENT: No sore throat, no earache, no congestion, no neck pain. Cardiac: No chest pain. No palpitations. Lungs: (+) shortness of breath, no cough. GI: No nausea, no vomiting, no diarrhea, no constipation, no abdominal pain : No dysuria, frequency, or urgency. No hematuria. Musculoskeletal: No joint pain , no joint swelling, no extremity edema. Skin: No rash, no itching. Neuro: No headache, no dizziness, no weakness Vital Signs Vital Signs Date Time Temp Pulse Resp B/P (MAP) Pulse Ox O2 Delivery O2 Flow Rate FiO2 08/29/24 02:58 80 25 139/76 08/29/24 02:33 93 08/28/24 23:00 Nasal Cannula* 4 36 08/28/24 23:00 98.5 98.5 Physical Exam General: Awake, alert and oriented. No acute distress. Skin: Skin in warm, dry and intact. Appropriate color for ethnicity. Nailbeds pink with no cyanosis. HEENT: The head is normocephalic and atraumatic. Conjunctivae are clear without exudates or hemorrhage. Sclera is non-icteric. EOM are intact. No signs of nystagmus. Eyelids are normal in appearance without swelling or lesions. Oral mucosa is pink and moist Neck: The neck is supple with normal range of motion. No JVD. Cardiac: Heart rate and rhythm are normal. No murmurs, gallops, or rubs are auscultated. Respiratory: tachypneic. Breath sounds diminished Abdominal: Abdomen is soft, non-tender, protuberant. Extremities: Upper and lower extremities are atraumatic in appearance without deformity or edema. Neurological: The patient is awake, alert and oriented to person, place, and time with normal speech. Speech is clear. There is no facial asymmetry. Past Medical History PAST MEDICAL HISTORY: Angina, Anxiety, Asthma, CAD, CHF, CKF, COPD, CVA, Depression, DM, GERD, High Lipids, HTN, Liver, [place], MRSA, TIA, UTI'S Surgical History: Appendectomy, Cholecystectomy, PTCA, Thyroidectomy Family History Family History: Reviewed,noncontributory to illness, Unknown Social History Smoker: Non-Smoker Alcohol: Denies ETOH Use Drugs: Denies Drug Use Lives In: Home EKG EKG : Pulse Rate (adult): 86 Cardiac Rhythm: Paced (Ventricular) Block: LBBB Hypertrophy: LVH Was a procedure done? Was a procedure done?: No Differential Dx Differential Diagnosis: CHF, COPD, Myocardial infarction, Panic Attack, Pneumonia, Respiratory Distress, Pharyngitis, URI X-Ray, Labs, Meds, VS Vital Signs Date Time Temp Pulse Resp B/P (MAP) Pulse Ox O2 Delivery O2 Flow Rate FiO2 08/29/24 02:58 80 25 139/76 08/29/24 02:33 68 21 136/76 (96) 93 08/29/24 02:28 92 14 139/76 08/29/24 01:00 78 16 132/68 (89) 97 08/29/24 00:00 78 08/28/24 23:17 86 08/28/24 23:00 94 Nasal Cannula* 4 36 08/28/24 23:00 98.5 80 20 136/72 (93) 94 98.5 08/28/24 22:14 86 08/28/24 22:12 98.0 81 20 117/58 (77) 96 98.0 Lab Test 08/29/24 02:11 08/29/24 01:05 08/29/24 00:30 08/29/24 00:20 Range/Units Troponin I High Sensitivity 58 *H 58 *H </=54 ng/L Lactic Acid Level 2.1 *H 0.4-2.0 mmol/L Urine Color Yellow Yellow Urine Clarity Clear Clear Urine pH 5.0 5.0-9.0 Urine Specific [place] 1.014 1.001-1.035 Urine Protein Negative Negative Urine Ketones Negative Negative Urine Blood Negative Negative /uL Urine Nitrite Negative Negative Urine Bilirubin Negative Negative Urine Urobilinogen Normal Negative mg/dL Urine Leukocyte Esterase Negative Negative /uL Urine RBC None seen 0 - 3 /hpf Urine Microscopic WBC 1 0-3 /HPF Urine Squamous Epithelial Cells Few <5 /hpf Urine Bacteria None seen None Seen /hpf Urine Hyaline Casts Mod 0 - 2 /lpf Urine Glucose Normal Normal mg/dL Test 08/28/24 23:07 Range/Units White Blood Count 7.9 4.4-10.8 10^3/uL Red Blood Count 3.68 L 4.5-5.90 10^6/uL Hemoglobin 10.4 L 13.5-17.5 g/dL Hematocrit 32.6 L 41.0-53.0 % Mean Corpuscular Volume 88.6 80.0-100.0 fL Mean Corpuscular Hemoglobin 28.4 28.0-32.0 pg Mean Corpuscular Hemoglobin Concent 32.0 32.0-36.0 g/dL Red Cell Distribution Width 16.0 H 11.8-14.3 % Platelet Count 237 140-450 10^3/uL Mean Platelet Volume 9.4 6.9-10.8 fL Neutrophils (%) (Auto) 61.2 37.0-80.0 % Lymphocytes (%) (Auto) 27.8 10.0-50.0 % Monocytes (%) (Auto) 7.3 0.0-12.0 % Eosinophils (%) (Auto) 3.2 0.0-7.0 % Basophils (%) (Auto) 0.5 0.0-2.0 % Neutrophils # (Auto) 4.9 1.6-8.6 10 ^3/uL Lymphocytes # (Auto) 2.2 0.4-5.4 10 ^3/uL Monocytes # (Auto) 0.6 0-1.3 10 ^3/uL Eosinophils # (Auto) 0.3 0-0.8 10 ^3/uL Basophils # (Auto) 0 0-0.2 10 ^3/uL Nucleated Red Blood Cells 0.0 % D-Dimer, Quantitative 3.47 H 0.0-0.49 mg/L FEU Blood Gas Specimen Type Arterial Blood Gas Sample Site Right radial Blood Gas Patient Temperature 37.0 Arterial Blood Date Drawn [id number] Arterial Blood pH 7.387 7.350-7.450 Arterial Blood Partial Pressure CO2 43.6 35.0-48.0 mmHg Arterial Blood Partial Pressure O2 67.3 L 83.0-108.0 mmHg Arterial Blood HCO3 25.6 21.0-28.0 mmol/L Arterial Blood Oxygen Saturation 91.5 L 94.0-98.0 % Arterial Blood Base Excess 0.4 -2.0-3.0 mmol/L Arterial Blood Oxyhemoglobin 90.0 L 94.0-98.0 % Arterial Blood Carboxyhemoglobin 1.1 0.5-1.5 % Arterial Blood Methemoglobin 0.5 0.0-1.5 % Jose Roberto Test Yes Blood Gas Total Hemoglobin 11.50 L 13.5-17.5 g/dL Blood Gas Liter Flow 4.00 Blood Gas Modality Nasal cannula FiO2 % 36.0 Sodium Level 139 136-145 mmol/L Potassium Level 3.0 L 3.5-5.1 mmol/L Chloride Level 105 98-107 mmol/L Carbon Dioxide Level 24 20-31 mmol/L Anion Gap 10 5-15 Blood Urea Nitrogen 12 9-23 mg/dL Creatinine 1.02 0.700-1.30 mg/dL Glomerular Filtration Rate Calc 79 >90 mL/min BUN/Creatinine Ratio 11.8 10.0-20.0 Serum Glucose 98 74-106 mg/dL Lactic Acid Level 2.3 *H 0.4-2.0 mmol/L Calcium Level 9.2 8.7-10.4 mg/dL Total Bilirubin 0.3 0.2-1.0 mg/dL Aspartate Amino Transferase (AST) 17 13-40 U/L Alanine Aminotransferase (ALT) 11 7-40 U/L Alkaline Phosphatase 58 46-116 U/L Troponin I High Sensitivity 60 *H </=54 ng/L B-Type Natriuretic Peptide 50.80 0-100 pg/mL Total Protein 7.1 5.7-8.2 g/dL Albumin 3.4 3.2-4.8 g/dL Time of 1ST Reevaluation: 23:14 Reevaluation 1ST: Unchanged Patient Education/Counseling: Prognosis, Need For Follow Up Family Education/Counseling: No Family Present SEPSIS Sepsis Screen Date sepsis recognized/suspect: Aug 28, 2024 Time Sepsis recognized/suspect: 2211 Recent Procedure: No On Antibiotic Therapy: No Respiratory Rate >20: No Heart Rate >90: No Temp<36 C (96.8 F) or >38.3 C: No SBP <90 or MAP <65 mmHG: No New Acute Mental Status Change: No Is the patient on CPAP, BIPAP,: No Physician Orders Titrate Oxygen (08/28/24 22:37) Oxygen (08/28/24 ) Continous Pulse Oximetry (08/28/24 22:37) Saline Lock (08/28/24 22:37) Road Roller Operator (08/28/24 ) Abg W/ Co-Ox (08/28/24 22:37) Chest Xray 1 View (08/28/24 22:37) Ct Angio Chest Contrast (08/29/24 01:36) Vital Signs Date Time Temp Pulse Resp B/P (MAP) Pulse Ox O2 Delivery O2 Flow Rate FiO2 08/29/24 02:58 80 25 139/76 08/29/24 02:33 68 21 136/76 (96) 93 08/29/24 02:28 92 14 139/76 08/29/24 01:00 78 16 132/68 (89) 97 08/29/24 00:00 78 08/28/24 23:17 86 08/28/24 23:00 94 Nasal Cannula* 4 36 08/28/24 23:00 98.5 80 20 136/72 (93) 94 98.5 08/28/24 22:14 86 08/28/24 22:12 98.0 81 20 117/58 (77) 96 98.0 Laboratory Tests Test 08/28/24 23:07 08/29/24 01:05 Lactic Acid Level 2.3 mmol/L (0.4-2.0) *H 2.1 mmol/L (0.4-2.0) *H White Blood Count 7.9 10^3/uL (4.4-10.8) Departure 1 Departure Time of Disposition: 00:02 Impression: Primary Impression: Hypokalemia Additional Impressions: Elevated troponin COPD with acute exacerbation Acute respiratory distress Disposition: ADMITTED INPATIENT Condition: Serious Comments Patient admitted to hospitalist service for further treatment, evaluation and monitoring. Critical Care Note Critical Care Time?: No Stability Stability form required: No Heart Score Heart Score: Heart Score Response (Comments) Value History Moderate Suspicious 1 EKG Repolarization Disturb 1 Age >65 2 Risk Factors >3 or Hx ASHD 2 Troponin Normal limit 0 Total 6 I personally scribed for JOSIAH VARNER MD ([email or web address]) on 08/28/24 at 23:17. Electronically submitted by Mateo Fernando ([email or web address]). JOSIAH VARNER MD Aug 28, 2024 23:17
[2024-08-28 23:35] LABS: Hematocrit 32.6 % (41.0-53.0); Hemoglobin 10.4 g/dL (13.5-17.5); Mean Corpuscular Hemoglobin 28.4 pg (28.0-32.0); Mean Corpuscular Volume 88.6 fL (80.0-100.0); Nucleated Red Blood Cells % 0.0 %
[2024-08-28 23:51] LABS: Alanine Aminotransferase 11 U/L (7-40); Albumin 3.4 g/dL (3.2-4.8); Alkaline Phosphatase 58 U/L (46-116); Anion Gap 10 (5-15); BUN/Creatinine Ratio 11.8 (10.0-20.0); Bilirubin, Total 0.3 mg/dL (0.2-1.0); Blood Urea Nitrogen 12 mg/dL (9-23); Calcium 9.2 mg/dL (8.7-10.4); Carbon Dioxide 24 mmol/L (20-31); Chloride 105 mmol/L (98-107); Glucose 98 mg/dL (74-106); Sodium 139 mmol/L (136-145); Total Protein 7.1 g/dL (5.7-8.2)
[2024-08-28 23:58] LABS: Lactic Acid w/Reflex 2.3 mmol/L (0.4-2.0)
[2024-08-29 00:02] LABS: Potassium 3.0 mmol/L (3.5-5.1)
--- NOTE | 2024-08-29 00:13 | DVH ---
CHEST RADIOGRAPH Indication: Shortness of breath Technique: Single frontal view of the chest was obtained COMPARISON: XY CHEST XRAY 1 VIEW on DOS: 05/30/24, XY CHEST PORTABLE on DOS: 05/24/24, XY CHEST PORTABLE on DOS: 05/05/24, XY CHEST PORTABLE on DOS: 02/24/24, XY CHEST PORTABLE on DOS: 11/05/23 FINDINGS: Lines and Tubes: None Lungs: Clear Pleura: No effusion. No pneumothorax. Cardiomediastinal contours: Cardiomegaly. Bones: Unremarkable IMPRESSION: 1. No acute disease. Stable cardiomegaly.
[2024-08-29 02:03] LABS: Urine Protein, UAD Negative (Negative)
[2024-08-29] MEDS: MORPHINE SULFATE INJ 2 MG/ml SYRG IV ONE ×2 (02:28→04:05)
[2024-08-29] MEDS: SODIUM CHLORIDE 0.9% 500 ML IV ONE ×2 (02:32)
[2024-08-29] MEDS ORDERED: NITROGLYCERIN 0.4 MG SL TAB SL PRN (03:45)
[2024-08-29] MEDS ORDERED: ACETAMINOPHEN 325 MG TAB PO PRN (03:45)
[2024-08-29] MEDS ORDERED: ONDANSETRON HCL 4 MG/2 ML VIAL IV PRN (03:45)
[2024-08-29] MEDS ORDERED: HYDROcodone-ACET 5/325MG TAB PO PRN (03:45)
[2024-08-29] MEDS ORDERED: DOCUSATE SOD 100 MG CAP PO PRN (03:45)
[2024-08-29 04:26] VITALS: BP 136/76; PULSE 88; RESP 18; TEMP 98; O2SAT 96
--- NOTE | 2024-08-29 04:32 | DVHHP2 ---
History of Present Illness Reason for Visit: Acute respiratory distress History of Present Illness The patient is a 69-year-old male morbidly obese with multiple past medical history including asthma, anxiety, seizures, depression, COPD, diabetes mellitus, and hypertension who presented to [facility] with complaint of shortness of breaths. Patient reports he has been experiencing shortness of breaths for the past 2 days, getting worse today that prompted this visit. Patient states he has been off his oxygen for the past, desaturating on room air at 88%, given breathing treatment and O2 saturation improved to 96%. Patient was seen and evaluated in the ED, laboratory data shows WBC 7.9, hemoglobin 10.4, hematocrit 34.6, platelets 237, sodium 139, potassium 3.0, BUN 12, creatinine 1.02, glucose 98, troponin 58, lactic acid 2.1, BNP 50.80, blood pressure 136/76, heart rate 68, O2 saturation 94% on oxygen. Chest x-ray show no acute disease, stable cardiomegaly. Please see medication orders section in the computer. On my assessment, patient denied chest pain, no headache, no dizziness, no diaphoresis, currently on oxygen, no nausea, no vomiting, no fever, no chills. Patient was admitted for further evaluation and medical management. Past Medical History Angina, Anxiety, Asthma, CAD, CHF, CKF, COPD, CVA, Depression, DM, GERD, High Lipids, HTN, Liver, DC, MRSA, TIA, UTI'S Past Surgical History Appendectomy, Cholecystectomy, PTCA, Thyroidectomy Family History Reviewed, noncontributory to the management of this case. Past Social History The patient lives at home, denies smoking, alcohol or illicit drugs abuse. Review of Systems Constitutional: Yes: Weakness; No: Fever, Chills, Sweats, Malaise, Other Eyes: No: Pain, Vision change, Conjunctivae inflammation, Eyelid inflammation, Other, Redness ENT: No: Ear pain, Ear discharge, Nose pain, Nose discharge, Nose congestion, Mouth pain, Mouth swelling, Throat pain, Throat swelling, Other Respiratory: Shortness of breath, SOB with excertion, Other (SOB at rest); No: Cough, Dry, Wheezing, Hemoptysis, Pleuritic Pain, Sputum, Wheezing Cardiovascular: No: Chest Pain, Palpitations, Orthopnea, Paroxysmal Noc. Dyspnea, Edema, Lt Headedness, Other Gastrointestinal: No: Nausea, Vomiting, Abdominal Pain, Diarrhea, Constipation, Melena, Hematochezia, Other Genitourinary: No Dysuria, No Frequency, No Incontinence, No Hematuria, No Retention, No Other Musculoskeletal: No: other, neck pain, shoulder pain, arm pain, back pain, hand pain, leg pain, foot pain Skin: No: Rash, Lesions, Jaundice, Bruising, Other Neurological: No: Weakness, Numbness, Incoordination, Change in speech, Confusion, Seizures, Other Allergies: Coded Allergies: NO KNOWN ALLERGIES (Unverified , 10/04/22) Exam Vital Signs Vital Signs Date Time Temp Pulse Resp B/P (MAP) Pulse Ox O2 Delivery O2 Flow Rate FiO2 08/29/24 04:05 88 18 137/63 08/29/24 02:33 93 08/28/24 22:12 98.0 98.0 General Appearance: Alert, Oriented X3, Cooperative, No acute distress HEENT: Atraumatic, PERRLA, EOMI, Mucous membr. moist/pink Respiratory: Normal air movement Cardiovascular: Regular rate, Normal S1, Normal S2, No murmurs Abdominal: Normal bowel sounds, Soft, No tenderness, No hepatospenomegaly, No masses Extremities: No clubbing, No cyanosis, No edema, Normal pulses, No tenderness/swelling Skin: No rashes, No significant lesion Neuro: Normal speech, Normal tone, Sensation intact, Cranial nerves 3-12 NL, Reflexes 2+, Other (Generalized weakness) Psych/Mental Status: Mental status NL, Mood NL Labs/Xrays Labs Test 08/29/24 02:11 08/29/24 01:05 08/29/24 00:30 08/28/24 23:07 Range/Units Troponin I High Sensitivity 58 *H </=54 ng/L Lactic Acid Level 2.1 *H 0.4-2.0 mmol/L Urine Color Yellow Yellow Urine Clarity Clear Clear Urine pH 5.0 5.0-9.0 Urine Specific [place] 1.014 1.001-1.035 Urine Protein Negative Negative Urine Ketones Negative Negative Urine Blood Negative Negative /uL Urine Nitrite Negative Negative Urine Bilirubin Negative Negative Urine Urobilinogen Normal Negative mg/dL Urine Leukocyte Esterase Negative Negative /uL Urine RBC None seen 0 - 3 /hpf Urine Microscopic WBC 1 0-3 /HPF Urine Squamous Epithelial Cells Few <5 /hpf Urine Bacteria None seen None Seen /hpf Urine Hyaline Casts Mod 0 - 2 /lpf Urine Glucose Normal Normal mg/dL White Blood Count 7.9 4.4-10.8 10^3/uL Red Blood Count 3.68 L 4.5-5.90 10^6/uL Hemoglobin 10.4 L 13.5-17.5 g/dL Hematocrit 32.6 L 41.0-53.0 % Mean Corpuscular Volume 88.6 80.0-100.0 fL Mean Corpuscular Hemoglobin 28.4 28.0-32.0 pg Mean Corpuscular Hemoglobin Concent 32.0 32.0-36.0 g/dL Red Cell Distribution Width 16.0 H 11.8-14.3 % Platelet Count 237 140-450 10^3/uL Mean Platelet Volume 9.4 6.9-10.8 fL Neutrophils (%) (Auto) 61.2 37.0-80.0 % Lymphocytes (%) (Auto) 27.8 10.0-50.0 % Monocytes (%) (Auto) 7.3 0.0-12.0 % Eosinophils (%) (Auto) 3.2 0.0-7.0 % Basophils (%) (Auto) 0.5 0.0-2.0 % Neutrophils # (Auto) 4.9 1.6-8.6 10 ^3/uL Lymphocytes # (Auto) 2.2 0.4-5.4 10 ^3/uL Monocytes # (Auto) 0.6 0-1.3 10 ^3/uL Eosinophils # (Auto) 0.3 0-0.8 10 ^3/uL Basophils # (Auto) 0 0-0.2 10 ^3/uL Nucleated Red Blood Cells 0.0 % D-Dimer, Quantitative 3.47 H 0.0-0.49 mg/L FEU Blood Gas Specimen Type Arterial Blood Gas Sample Site Right radial Blood Gas Patient Temperature 37.0 Arterial Blood Date Drawn [id number] Arterial Blood pH 7.387 7.350-7.450 Arterial Blood Partial Pressure CO2 43.6 35.0-48.0 mmHg Arterial Blood Partial Pressure O2 67.3 L 83.0-108.0 mmHg Arterial Blood HCO3 25.6 21.0-28.0 mmol/L Arterial Blood Oxygen Saturation 91.5 L 94.0-98.0 % Arterial Blood Base Excess 0.4 -2.0-3.0 mmol/L Arterial Blood Oxyhemoglobin 90.0 L 94.0-98.0 % Arterial Blood Carboxyhemoglobin 1.1 0.5-1.5 % Arterial Blood Methemoglobin 0.5 0.0-1.5 % Jose Roberto Test Yes Blood Gas Total Hemoglobin 11.50 L 13.5-17.5 g/dL Blood Gas Liter Flow 4.00 Blood Gas Modality Nasal cannula FiO2 % 36.0 Sodium Level 139 136-145 mmol/L Potassium Level 3.0 L 3.5-5.1 mmol/L Chloride Level 105 98-107 mmol/L Carbon Dioxide Level 24 20-31 mmol/L Anion Gap 10 5-15 Blood Urea Nitrogen 12 9-23 mg/dL Creatinine 1.02 0.700-1.30 mg/dL Glomerular Filtration Rate Calc 79 >90 mL/min BUN/Creatinine Ratio 11.8 10.0-20.0 Serum Glucose 98 74-106 mg/dL Calcium Level 9.2 8.7-10.4 mg/dL Total Bilirubin 0.3 0.2-1.0 mg/dL Aspartate Amino Transferase (AST) 17 13-40 U/L Alanine Aminotransferase (ALT) 11 7-40 U/L Alkaline Phosphatase 58 46-116 U/L B-Type Natriuretic Peptide 50.80 0-100 pg/mL Total Protein 7.1 5.7-8.2 g/dL Albumin 3.4 3.2-4.8 g/dL PATIENT: NAVID SANCHEZ ACCT: [id number] UNIT: [id number] : 1955 LOC: ER ROOM / BED: / AGE / SEX: 69 / M ADM STATUS: REG ER SERVICE 36 ORDERING PHYSICIAN: JOSIAH VARNER MD PROCEDURE(s): CXR1 - CHEST XRAY 1 VIEW REASON: Shortness of breath ORDER NUMBER(s): [id number], ACCESSION NUMBER(s): [id number] CHEST RADIOGRAPH Indication: Shortness of breath Technique: Single frontal view of the chest was obtained COMPARISON: XY CHEST XRAY 1 VIEW on DOS: 05/30/24, XY CHEST PORTABLE on DOS: 05/24/24, XY CHEST PORTABLE on DOS: 05/05/24, XY CHEST PORTABLE on DOS: 02/24/24, XY CHEST PORTABLE on DOS: 11/05/23 FINDINGS: Lines and Tubes: None Lungs: Clear Pleura: No effusion. No pneumothorax. Cardiomediastinal contours: Cardiomegaly. Bones: Unremarkable IMPRESSION: 1. No acute disease. Stable cardiomegaly. SEPSIS Sepsis Screen Date sepsis recognized/suspect: Aug 28, 2024 Time Sepsis recognized/suspect: 2211 Recent Procedure: No On Antibiotic Therapy: No Respiratory Rate >20: No Heart Rate >90: No Temp<36 C (96.8 F) or >38.3 C: No SBP <90 or MAP <65 mmHG: No New Acute Mental Status Change: No Is the patient on CPAP, BIPAP,: No Physician Orders Titrate Oxygen (08/28/24 22:37) Oxygen (08/28/24 ) Continous Pulse Oximetry (08/28/24 22:37) Saline Lock (08/28/24 22:37) Flight Operations Specialist (08/28/24 ) Abg W/ Co-Ox (08/28/24 22:37) Covid19 Antigen Angela (08/28/24 ) Rapid Influenza A&B (08/28/24 22:37) Chest Xray 1 View (08/28/24 22:37) Ct Angio Chest Contrast (08/29/24 01:36) Complete Blood Count (08/29/24 03:45) Comprehensive Metabolic Panel (08/29/24 03:45) Aspirin Tablet (08/29/24 10:00) Atorvastatin (Lipitor) (08/29/24 22:00) Potassium Chl Kj Kcl (08/29/24 03:45) Pantoprazole (Protonix) (08/29/24 10:00) Trazodone Hcl (Desyrel) (08/29/24 22:00) Levetiracetam Ivpb Keppra (08/29/24 10:00) Albuterol Medneb (Ventolin Medneb) (08/29/24 03:45) Ipratropium Medneb (Atrovent Medneb) (08/29/24 03:45) Admit (08/29/24 03:45) Allergies (08/29/24 03:45) Code Status (08/29/24 03:45) Sodium Chloride Lock (Saline Lock Ns) (08/29/24 06:00) Oxygen Per Hour (08/29/24 03:45) Hydrocodone-Acet 5/325mg Tab ([place] 5/32 (08/29/24 03:45) Ondansetron Hcl (Zofran) (08/29/24 03:45) Docusate Sodium Capsule (Colace Capsule) (08/29/24 03:45) Fall Risk Precautions In Place QSHIFT (08/29/24 03:45) Complete Blood Count (08/30/24 04:00) Comprehensive Metabolic Panel (08/30/24 04:00) Cardiac Diet-2gna,Lofat,Lochol (08/29/24 Breakfast) Condition: Serious (08/29/24 03:45) Acetaminophen Tablet (Tylenol Tablet) (08/29/24 03:45) Bedrest With Bathroom Privileg (08/29/24 03:45) Sequential Compression Device (08/29/24 ) Nitroglycerin Sublingual (Ntrostat Subli (08/29/24 03:45) Morphine Sulfate Injection (08/29/24 03:45) Stat Ekg For Chest Pain (08/29/24 03:45) Notify Md Of Changes From Base (08/29/24 03:45) Kitchen Steward/Stewardess For 24 Hours (08/29/24 03:45) Emergency Dysrhythmia Protocol (08/29/24 03:45) Rhythm Strips Once Every Shift (08/29/24 03:45) Oxygen By Nasal Cannula (08/29/24 03:45) Vital Signs Date Time Temp Pulse Resp B/P (MAP) Pulse Ox O2 Delivery O2 Flow Rate FiO2 08/29/24 04:05 88 18 137/63 08/29/24 02:33 68 21 136/76 (96) 93 08/29/24 02:28 92 14 139/76 08/28/24 23:17 86 08/28/24 22:14 86 08/28/24 22:12 98.0 81 20 117/58 (77) 96 98.0 Laboratory Tests Test 08/28/24 23:07 08/29/24 01:05 Lactic Acid Level 2.3 mmol/L (0.4-2.0) *H 2.1 mmol/L (0.4-2.0) *H White Blood Count 7.9 10^3/uL (4.4-10.8) Medications Medications Dose Ordered Sig/Yvette Route Start Time Stop Time Status Last Admin Dose Admin Aspirin 325 mg ONCE ONCE PO 08/29/24 00:15 08/29/24 00:16 DC 08/29/24 01:00 325 MG Morphine Sulfate 1 mg ONCE ONCE IV 08/29/24 01:15 08/29/24 01:28 DC 08/29/24 02:28 1 MG Morphine Sulfate 2 mg ONCE ONCE IV 08/29/24 04:00 08/29/24 04:01 DC 08/29/24 04:05 2 MG Sodium Chloride 500 ml @ 500 mls/hr Q1H ONCE IV 08/29/24 01:45 08/29/24 02:44 DC 08/29/24 02:32 500 MLS/HR Sodium Chloride 500 ml @ 500 mls/hr Q1H ONCE IV 08/29/24 01:45 08/29/24 02:44 DC 08/29/24 02:32 500 MLS/HR Assessment/Plan Assessment/Plan Acute respiratory distress Hypokalemia Elevated troponin COPD with acute exacerbation Generalized weakness Plan 1. Admit to telemetry units 2. Breathing treatment 3. Pain control management 4. Management of fluids and electrolytes 5. Consultation for hospitalist 6. Diagnostic tests chest x-ray 7. DVT prophylaxis-on aspirin 8. Repeat labs CBC, CMP in a.m. 9. Continue with current medical management 10. Treatment plan discussed with patient and RN. Patient verbalized understanding. Plan discussed with: Patient, Other (RN) My Orders Orders - LELO NIXON DNP Procedure Category Date Status Time Complete Blood Count LAB 08/29/24 Verified 03:45 Comprehensive LAB 08/29/24 Verified Metabolic Panel 03:45 Aspirin Tablet PHA 08/29/24 Verified 10:00 Atorvastatin (Lipitor) PHA 08/29/24 Verified 22:00 Potassium Chl Kj PHA 08/29/24 Verified KCL 03:45 Pantoprazole PHA 08/29/24 Verified (Protonix) 10:00 Trazodone Hcl PHA 08/29/24 Verified (Desyrel) 22:00 Levetiracetam Ivpb PHA 08/29/24 Verified Keppra 10:00 Albuterol Medneb PHA 08/29/24 Verified (Ventolin Medneb) 03:45 Ipratropium Medneb [facility] 08/29/24 Verified (Atrovent Medneb) 03:45 Admit ADMIT 08/29/24 Verified 03:45 Allergies [facility] 08/29/24 Verified 03:45 Code Status CODE 08/29/24 Verified 03:45 Sodium Chloride Lock [facility] 08/29/24 Verified (Saline Lock Ns) 06:00 Oxygen Per Hour RT 08/29/24 Verified 03:45 Hydrocodone-Acet [facility] 08/29/24 Verified 5/325mg Tab ([place]ever[place] 03:45 Ondansetron Hcl [facility] 08/29/24 Verified (Zofran) 03:45 Docusate Sodium [facility] 08/29/24 Verified Capsule (Colace 03:45 Fall Risk Precautions [facility] 08/29/[address] 03:45 Complete Blood Count LAB 08/30/24 Verified 04:00 Comprehensive LAB 08/30/24 Verified Metabolic Panel 04:00 Cardiac DIET 08/29/24 Verified Diet-2gna,Lofat,Lochol Breakfast Condition: Serious [facility] 08/29/24 Verified 03:45 Acetaminophen Tablet [facility] 08/29/24 Verified (Tylenol Tablet) 03:45 Bedrest With Bathroom [facility] 08/29/24 Verified Privileg 03:45 Sequential [facility] 08/29/24 Verified Compression Device Nitroglycerin [facility] 08/29/24 Verified Sublingual (Ntrostat 03:45 Morphine Sulfate [facility] 08/29/24 Verified Injection 03:45 Stat Ekg For Chest [facility] 08/29/24 Verified Pain 03:45 Notify Md Of Changes [facility] 08/29/24 Verified From Base 03:45 Kitchen Steward/Stewardess For [facility] 08/29/24 Verified 24 Hours 03:45 Emergency Dysrhythmia [facility] 08/29/24 Verified Protocol 03:45 Rhythm Strips Once [facility] 08/29/24 Verified Every Shift 03:45 Oxygen By Nasal 08/29/24 Verified Cannula 03:45 Problem List: (1) Acute respiratory distress (2) Hypokalemia (3) Elevated troponin (4) COPD with acute exacerbation (5) General weakness Date of Service: Aug 29, 2024 Billing Provider: LELO NIXON DNP Common Visit Codes: [id number] INP/OBS CARE (HIGH) LELO NIXON DNP Aug 29, 2024 04:32
[2024-08-29 05:07] LABS: Alanine Aminotransferase 12 U/L (7-40); Albumin 3.5 g/dL (3.2-4.8); Alkaline Phosphatase 56 U/L (46-116); Anion Gap 8 (5-15); BUN/Creatinine Ratio 13.4 (10.0-20.0); Blood Urea Nitrogen 13 mg/dL (9-23); Calcium 9.6 mg/dL (8.7-10.4); Carbon Dioxide 28 mmol/L (20-31); Chloride 105 mmol/L (98-107); Glucose 84 mg/dL (74-106); Sodium 141 mmol/L (136-145); Total Protein 7.2 g/dL (5.7-8.2)
[2024-08-29 05:08] LABS: Bilirubin, Total 0.4 mg/dL (0.2-1.0)
[2024-08-29 05:10] LABS: Potassium 3.4 mmol/L (3.5-5.1)
[2024-08-29] MEDS: IOHEXOL 350 MG/ML 100ML IJ ONE ×2 (05:24)
[2024-08-29] MEDS: POTASSIUM CHL 20MEQ/100ML 100 ML IV SCH (05:29)
[2024-08-29] MEDS ORDERED: PERCOT PO (05:45)
[2024-08-29 05:52] VITALS: O2SAT 96
--- NOTE | 2024-08-29 05:52 | DVH ---
CTA Chest with intravenous contrast INDICATION: Shortness of breath, elevated D-dimer, rule out PE COMPARISON: Chest radiograph performed earlier same date. TECHNIQUE: Multidetector spiral CTA of the chest was performed of the chest with cc of intravenous c ontrast. PULMONARY ANGIOGRAPHY PROTOCOL was utilized using a bolus-tracking technique centered on the main pulmonary artery. Axial, coronal and sagittal multiplanar and MIP reformats were performed. Radiation Dose : 1. Chest: CTDI volume is 27.9 mGy. Dose-length product is 1210.6 mGy*cm The dose indicators for CT are the volume Computed Tomography (CT) Dose Index (CTDIvol) and the Dose Length Product (DLP), and are measured in units of mGy and mGy-cm, respectively. These indicators are not patient dose, but values generated from the CT scanner acquisition factors. The report includes radiation exposure data for exposures received during this examination. FINDINGS: Pulmonary artery: No central, lobar or proximal segmental pulmonary embolus. Lower neck: Unremarkable thyroid. Lungs: Bilateral interlobular septal thickening. Passive atelectasis in the lower lobes. Central airways: The central airways are patent. Pleura: No pneumothorax. Moderate bilateral pleural effusions. Heart/Vascular Structures: The heart is enlarged. No pericardial effusion. Thoracic aorta is normal i n caliber. Aortic valve calcifications. Coronary artery calcifications. No aneurysm or dissection. Lymph Nodes: No mediastinal or hilar lymphadenopathy. Esophagus:Grossly unremarkable. Musculoskeletal: Unremarkable. Body wall: Unremarkable. Upper abdomen: Bilateral renal vascular calcifications and bilateral renal cysts. IMPRESSION: 1. No evidence of pulmonary embolism. 2. Pulmonary edema. Moderate bilateral pleural effusions. Correlation for congestive heart failure r ecommended. 3. Cardiomegaly and coronary artery calcifications.
[2024-08-29] MEDS: SODIUM CHLOR 0.9% PF (SALINE LOCK) 10ML VIAL/SYR IV SCH (06:06)
[2024-08-29] MEDS: OXYCODONE W/ ACETAMINOPHEN 5/325MG TABLET PO PRN (06:08)
[2024-08-29 07:02] LABS: COVID19 ANTIGEN SOFIA FIA NEGATIVE (NEGATIVE)
[2024-08-29 07:03] LABS: Hematocrit 35.3 % (41.0-53.0); Hemoglobin 11.3 g/dL (13.5-17.5); Mean Corpuscular Hemoglobin 28.2 pg (28.0-32.0); Mean Corpuscular Volume 88.3 fL (80.0-100.0); Nucleated Red Blood Cells % 0.2 %
[2024-08-29 07:45] VITALS: PULSE 83; RESP 14; O2SAT 95
[2024-08-29] MEDS: PANTOPRAZOLE 40 MG/10 ML VIAL INJ IV SCH (09:48)
[2024-08-29] MEDS: levETIRAcetam 1000 mg/100ml 100 ML IV SCH (09:48)
--- NOTE | 2024-08-29 13:07 | DVHPN2 ---
Reviewed: Care Plan, H&P, Labs, Medications, Previous Orders, Radiology Changes from previous H/P or p: No Changes Eyes: No Pain, No Vision change, No Conjunctivae inflammation, No Eyelid inflammation, No Other, No Redness ENT: No Ear pain, No Ear discharge, No Nose pain, No Nose discharge, No Nose congestion, No Mouth pain, No Mouth swelling, No Throat pain, No Throat swelling, No Other Cardiovascular: No Chest Pain, No Palpitations, No Orthopnea, No Paroxysmal Noc. Dyspnea, No Edema, No Lt Headedness, No Other Respiratory: Shortness of breath, SOB with excertion, Other Gastrointestinal: No Nausea, No Vomiting, No Abdominal Pain, No Diarrhea, No Constipation, No Melena, No Hematochezia, No Other Genitourinary: No Dysuria, No Frequency, No Incontinence, No Hematuria, No Retention, No Other Musculoskeletal: No other, No neck pain, No shoulder pain, No arm pain, No back pain, No hand pain, No leg pain, No foot pain Skin: No Rash, No Lesions, No Jaundice, No Bruising, No Other Objective Vitals Vital Signs Date Time Temp Pulse Resp B/P (MAP) Pulse Ox O2 Delivery O2 Flow Rate FiO2 08/29/24 12:00 97.7 77 16 122/61 (81) 95 97.7 08/29/24 07:45 Nasal Cannula* 3 32 Intake/Output Intake and Output 08/29/24 07:00 Intake Total 500 ml Balance 500 ml Intake IV Total 500 ml Medications Current Medications Medications Dose Ordered Sig/Yvette Route Start Time Stop Time Status Last Admin Dose Admin Aspirin 81 mg DAILY PO 08/29/24 10:00 08/29/24 09:48 81 MG Atorvastatin Calcium 40 mg HS PO 08/29/24 22:00 Pantoprazole Sodium 40 mg DAILY IV 08/29/24 10:00 08/29/24 09:48 40 MG Trazodone HCl 100 mg HS PO 08/29/24 22:00 Levetiracetam 100 ml @ 400 mls/hr BID IV 08/29/24 10:00 08/29/24 09:48 400 MLS/HR Albuterol 2.5 mg Q4HPRN PRN NEB 08/29/24 03:45 Ipratropium [place] 0.5 mg Q4HPRN PRN NEB 08/29/24 03:45 Sodium Chloride 10 ml Q8HR IV 08/29/24 06:00 08/29/24 06:06 10 ML Ondansetron HCl 4 mg Q4HP PRN IV 08/29/24 03:45 Docusate Sodium 100 mg BIDPRN PRN PO 08/29/24 03:45 Acetaminophen 650 mg Q6HP PRN PO 08/29/24 03:45 Nitroglycerin 0.4 mg Q5MINP PRN SL 08/29/24 03:45 Morphine Sulfate 2 mg Q30M PRN IV 08/29/24 03:45 Oxycodone/ Acetaminophen 2 tab BIDP PRN PO 08/29/24 06:00 08/29/24 06:08 2 TAB Laboratory Results Laboratory Tests 08/29/24 04:33 08/29/24 06:33 Chemistry Test 08/28/24 23:07 08/29/24 04:33 Albumin 3.4 g/dL (3.2-4.8) 3.5 g/dL (3.2-4.8) Calcium Level 9.2 mg/dL (8.7-10.4) 9.6 mg/dL (8.7-10.4) Total Protein 7.1 g/dL (5.7-8.2) 7.2 g/dL (5.7-8.2) Coagulation Test 08/28/24 23:07 D-Dimer, Quantitative 3.47 mg/L FEU (0.0-0.49) H Cardiac Markers Test 08/28/24 23:07 B-Type Natriuretic Peptide 50.80 pg/mL (0-100) LFT Test 08/28/24 23:07 08/29/24 04:33 Alanine Aminotransferase (ALT) 11 U/L (7-40) 12 U/L (7-40) Alkaline Phosphatase 58 U/L (46-116) 56 U/L (46-116) Aspartate Amino Transferase (AST) 17 U/L (13-40) 25 U/L (13-40) Total Bilirubin 0.3 mg/dL (0.2-1.0) 0.4 mg/dL (0.2-1.0) Urinalysis Test 08/29/24 00:30 Urine Color Yellow (Yellow) Urine Clarity Clear (Clear) Urine pH 5.0 (5.0-9.0) Urine Specific [place] 1.014 (1.001-1.035) Urine Protein Negative (Negative) Urine Ketones Negative (Negative) Urine Blood Negative /uL (Negative) Urine Nitrite Negative (Negative) Urine Bilirubin Negative (Negative) Urine Urobilinogen Normal mg/dL (Negative) Urine Leukocyte Esterase Negative /uL (Negative) Urine RBC None seen /hpf (0 - 3) Urine Microscopic WBC 1 /HPF (0-3) Urine Squamous Epithelial Cells Few /hpf (<5) Urine Bacteria None seen /hpf (None Seen) Urine Hyaline Casts Mod /lpf (0 - 2) Urine Glucose Normal mg/dL (Normal) Blood Gas Results Test 08/28/24 23:07 Arterial Blood pH 7.387 (7.350-7.450) FiO2 % 36.0 Labs and/or images reviewed: Labs reviewed by me, Image(s) reviewed by me Assessment/Plan Assessment/Plan Acute chest pain rule out coronary artery disease: Troponin slightly elevated 65, cardiology consult by Dr. Galindo Elevated D-dimer 3.47 PE ruled out acute on chronic hypoxic RF acute on chronic diastolic HF CAD s/p DESTINY x5 s/p PPM HFpEF 70% afib CVA w/ right residual deficits COPD on 3 L of oxygen at home NIDDM chronic pain KOLE VMN on CKD Seizure? morbid obesity Time spent 70 minutes Advanced care planning time 20 minutes Patient is full code Plan discussed with: Patient Date of Service: Aug 29, 2024 Billing Provider: CYDNEY MCGARRY MD Common Visit Codes: [id number] CARE 30-74 MIN CYDNEY MCGARRY MD Aug 29, 2024 13:07
[2024-08-29] MEDS: MORPHINE SULFATE INJ 2 MG/ml SYRG IV PRN (19:49)
[2024-08-29 20:04] VITALS: PULSE 75; RESP 20; O2SAT 95
[2024-08-29 20:19] VITALS: O2SAT 94
[2024-08-29] MEDS: MUPIROCIN 2% OINT 15gm or 22gm FOR MRSA NARES EACHNOSTRI SCH (20:42)
[2024-08-29] MEDS: ATORVASTATIN 20 MG TAB PO SCH (20:42)
[2024-08-29 22:29] VITALS: BP 145/72; PULSE 60; RESP 18; TEMP 97.1; O2SAT 98
[2024-08-30] VITALS (10 sets, daily range): BP systolic 133–143; BP diastolic 51–79; PULSE 53–62; RESP 16–20; TEMP 96.6–98.2; O2SAT 93–98
--- NOTE | 2024-08-30 00:07 | DVHINCON2 ---
Date of service: Aug 29, 2024 Referring Physician Kareem Reason for Consultation Chest pain History of Present Illness This is a 69-year-old male with a PMH of Anxiety, Asthma, CAD, CHF, CKF, COPD, CVA, Depression, DM, GERD, High Lipids, HTN, Liver, RI, TIA who was brought in by EMS on 08/28/24 due to c/o shortness of breath x 2 days that worsened on day of admission. Patient is chronically on home oxygen at 4 L/min. Patient states he was been off his oxygen when symptoms began. Patient was hypoxic at 88% on room air on EMS arrival. EMS administered breathing treatments with improvement 96%. Chest x-ray showed stable cardiomegaly. CTA chest was negative for PE. There is pulmonary edema, moderate bilateral pleural effusions and cardiomegaly. Troponin elevate x3. Patient was admitted to the hospital. I am asked to consult on this patient. Family History: Alcoholism G8 MOTHER, Onset:Unknown Cancer G8 SISTER (uterine cancer) Cardiovascular disease G8 SISTER Cerebrovascular accident (CVA) G8 BROTHER Chronic obstructive pulmonary disease G8 SISTER Depression G8 SISTER Diabetes mellitus G8 SISTER G8 SISTER Family history: Cardiovascular disease Family history: Depression (situation) Family history: Hypertension Family history: Hypertension Glaucoma MATERNAL GPA Sepsis Stroke Stroke Allergies: Coded Allergies: NO KNOWN ALLERGIES (Unverified , 10/04/22) Home Meds Active Scripts Furosemide (Lasix) 40 Mg Tab, 40 MG PO BID for 30 Days, #60 TAB Prov:BK LAGUERRE MD 05/29/24 Prednisone (Prednisone) 20 Mg Tab, 40 MG PO DAILY for 5 Days, #5 MG Prov:BK LAGUERRE MD 05/29/24 Ranolazine (Ranexa) 500 Mg Tab, 500 MG PO BID for 30 Days, #60 TAB Prov:JUSTIN DUARTE MD 10/22/18 Reported Medications Oxycodone W/ Acetaminophen (Percocet 5/325MG) 1 Tab Tb, 2 TAB PO BIDPRN for CHRONIC PAIN, TAB 08/29/24 Budesonide-Formoterol Fumarate (Budesonide/Formoterol Fum 160-4.5 Mcg/Act) 1 Aer Aer, 2 PUFF IN BID for 30 Days, #10.2 02/26/24 Midodrine HCl (Midodrine Hydrochloride) 5 Mg Tab, 1 TAB PO TID for 30 Days, #90 02/26/24 Potassium Chloride (Potassium Chloride ER) 10 Meq Tab, 1 TAB PO BID for 30 Days, #60 02/26/24 Aspirin (Aspirin Regular Strength) 325 Mg Tab, 1 TAB PO DAILY for 30 Days, #30 02/26/24 Lactulose (Lactulose) 10 Gm/15 Ml Rachna, 15 ML PO BID PRN for 15 Days, #473 02/26/24 Atorvastatin Calcium (Lipitor) 80 Mg Tab, 1 TAB PO DAILY for 30 Days, #30 02/26/24 Levetiracetam (Levetiracetam) 750 Mg Tab, 1 TAB PO BID for 30 Days, #60 02/26/24 Lidocaine (Lidocaine Topical Pain Pa) 4 % Pad, 1 PATCH TOP DAILY 06/28/23 Gabapentin (Gabapentin) 800 Mg Tab, 1 TAB PO BID for 30 Days, #60 06/28/23 Ipratropium-Albuterol (COMBIVENT RESPIMAT) Respimat Aer, 1 PUFF INH QID 05/14/23 Methocarbamol (Methocarbamol) 500 Mg Tab, 1.5 TAB PO Q8HR PRN for 8 Days, #40 05/14/23 Dapagliflozin Propanediol (Farxiga) 10 Mg Tab, 1 TAB PO DAILY for 30 Days, #30 05/14/23 Beclomethasone Dipropionate (Qvar Redihaler) 80 Mcg/Act Aer, 1 PUFF INH BID for 30 Days, #10.6 02/27/23 Silver Sulfadiazine (Silver Sulfadiazine) 1 % Cre, 1 APPLIC TOP DAILY for 30 Days, #50 02/27/23 Oxybutynin Chloride (Ditropan Xl) 5 Mg Tab, 15 MG PO DAILY for 30 Days, #30 02/27/23 Trazodone Hcl (Trazodone Hcl) 100 Mg Tab, 4 TAB PO HS for 30 Days, #120 02/27/23 Clopidogrel Bisulfate (CLOPIDOGREL) 75 Mg Tab, 1 TAB PO DAILY for 30 Days, #30 02/07/23 Pantoprazole Sodium Sesquihydr (Pantoprazole Sodium) 40 Mg Tab, 1 TAB PO QAM 02/07/23 Bupropion Hcl (Bupropion Hcl) 75 Mg Tab, 2 TAB PO DAILY for 30 Days, #60 11/10/17 Current Medications Current Medications Medications (Trade) Dose Ordered Sig/Yvette Route PRN Reason Start Time Stop Time Status Last Admin Aspirin 81 mg DAILY PO 08/29/24 10:00 08/29/24 09:48 Atorvastatin Calcium (Lipitor) 40 mg HS PO 08/29/24 22:00 08/29/24 20:42 Potassium Chloride 100 ml @ 50 mls/hr Q2H IV 08/29/24 03:45 08/29/24 07:44 DC 08/29/24 07:10 Pantoprazole Sodium (Protonix) 40 mg DAILY IV 08/29/24 10:00 08/29/24 09:48 Trazodone HCl (Desyrel) 100 mg HS PO 08/29/24 22:00 08/29/24 21:39 Levetiracetam 100 ml @ 400 mls/hr BID IV 08/29/24 10:00 08/29/24 20:42 Albuterol (Ventolin Medneb) 2.5 mg Q4HPRN PRN NEB SHORTNESS OF BREATH 08/29/24 03:45 Ipratropium [place] (Atrovent Medneb) 0.5 mg Q4HPRN PRN NEB SHORTNESS OF BREATH 08/29/24 03:45 Sodium Chloride (Saline Lock Ns) 10 ml Q8HR IV 08/29/24 06:00 08/29/24 20:42 Acetaminophen/ Hydrocodone Bitart ([place] 5/325MG Tab) 1 tab Q4HP PRN PO MODERATE PAIN (4-6 PAIN SCALE) 08/29/24 03:45 08/29/24 05:54 DC Ondansetron HCl (Zofran) 4 mg Q4HP PRN IV NAUSEA / VOMITING 08/29/24 03:45 Docusate Sodium (Colace Capsule) 100 mg BIDPRN PRN PO FOR CONSTIPATION 08/29/24 03:45 Acetaminophen (Tylenol Tablet) 650 mg Q6HP PRN PO PAIN SCALE 1-3 OR TEMP>100.4 08/29/24 03:45 Nitroglycerin (Ntrostat Sublingual) 0.4 mg Q5MINP PRN SL FOR CHEST PAIN 08/29/24 03:45 Morphine Sulfate 2 mg Q30M PRN IV FOR CHEST PAIN 08/29/24 03:45 08/29/24 19:49 Oxycodone/ Acetaminophen (Percocet 5/ 325MG Tablet) 2 tab BIDP PRN PO PAIN SCALE 7 THRU 10 08/29/24 06:00 08/29/24 06:08 Mupirocin (Bactroban 2% Ointment) 1 applic BID EACHNOSTRI 08/29/24 22:00 09/03/24 21:59 08/29/24 20:42 Review of Systems REVIEW OF SYSTEMS: No fever, no chills, or fatigue HEENT: No sore throat, no earache, no congestion, no neck pain. Cardiac: No chest pain. No palpitations. Lungs: (+) shortness of breath, no cough. GI: No nausea, no vomiting, no diarrhea, no constipation, no abdominal pain : No dysuria, frequency, or urgency. No hematuria. Musculoskeletal: No joint pain , no joint swelling, no extremity edema. Skin: No rash, no itching. Neuro: No headache, no dizziness, no weakness Vital Signs Vital Signs Date Time Temp Pulse Resp B/P (MAP) Pulse Ox O2 Delivery O2 Flow Rate FiO2 08/29/24 20:19 61 20 147/67 08/29/24 20:04 98.1 92 98.1 08/29/24 20:04 Nasal Cannula* 2 28 Physical Exam GENERAL: Alert and oriented x 3. No acute distress. EYES: PERRL, EOMI. Anicteric. HENT: Moist mucous membranes. LUNGS: Clear to auscultation bilaterally. CARDIOVASCULAR: Regular rate and rhythm. ABDOMEN: Soft, nontender and nondistended. EXTREMITIES: No edema. NEUROLOGIC: No focal neurological deficits. SKIN: Warm, dry. Labs/Diagnostic Data Labs Test 08/29/24 06:33 08/29/24 06:00 08/29/24 04:33 08/29/24 02:11 Range/Units White Blood Count 8.0 4.4-10.8 10^3/uL Red Blood Count 4.00 L 4.5-5.90 10^6/uL Hemoglobin 11.3 L 13.5-17.5 g/dL Hematocrit 35.3 L 41.0-53.0 % Mean Corpuscular Volume 88.3 80.0-100.0 fL Mean Corpuscular Hemoglobin 28.2 28.0-32.0 pg Mean Corpuscular Hemoglobin Concent 31.9 L 32.0-36.0 g/dL Red Cell Distribution Width 16.6 H 11.8-14.3 % Platelet Count 178 140-450 10^3/uL Mean Platelet Volume 9.3 6.9-10.8 fL Neutrophils (%) (Auto) 61.1 37.0-80.0 % Lymphocytes (%) (Auto) 25.4 10.0-50.0 % Monocytes (%) (Auto) 8.7 0.0-12.0 % Eosinophils (%) (Auto) 3.8 0.0-7.0 % Basophils (%) (Auto) 1.0 0.0-2.0 % Neutrophils # (Auto) 4.9 1.6-8.6 10 ^3/uL Lymphocytes # (Auto) 2.0 0.4-5.4 10 ^3/uL Monocytes # (Auto) 0.7 0-1.3 10 ^3/uL Eosinophils # (Auto) 0.3 0-0.8 10 ^3/uL Basophils # (Auto) 0.1 0-0.2 10 ^3/uL Nucleated Red Blood Cells 0.2 % Influenza Type A Antigen Negative Negative Influenza Type B Antigen Negative Negative SARS-CoV-2 Antigen (Rapid) Negative NEGATIVE Sodium Level 141 136-145 mmol/L Potassium Level 3.4 L 3.5-5.1 mmol/L Chloride Level 105 98-107 mmol/L Carbon Dioxide Level 28 20-31 mmol/L Anion Gap 8 5-15 Blood Urea Nitrogen 13 9-23 mg/dL Creatinine 0.97 0.700-1.30 mg/dL Glomerular Filtration Rate Calc 84 >90 mL/min BUN/Creatinine Ratio 13.4 10.0-20.0 Serum Glucose 84 74-106 mg/dL Calcium Level 9.6 8.7-10.4 mg/dL Total Bilirubin 0.4 0.2-1.0 mg/dL Aspartate Amino Transferase (AST) 25 13-40 U/L Alanine Aminotransferase (ALT) 12 7-40 U/L Alkaline Phosphatase 56 46-116 U/L Total Protein 7.2 5.7-8.2 g/dL Albumin 3.5 3.2-4.8 g/dL Troponin I High Sensitivity 58 *H </=54 ng/L Test 08/29/24 01:05 08/29/24 00:30 08/28/24 23:07 Range/Units Lactic Acid Level 2.1 *H 0.4-2.0 mmol/L Urine Color Yellow Yellow Urine Clarity Clear Clear Urine pH 5.0 5.0-9.0 Urine Specific [place] 1.014 1.001-1.035 Urine Protein Negative Negative Urine Ketones Negative Negative Urine Blood Negative Negative /uL Urine Nitrite Negative Negative Urine Bilirubin Negative Negative Urine Urobilinogen Normal Negative mg/dL Urine Leukocyte Esterase Negative Negative /uL Urine RBC None seen 0 - 3 /hpf Urine Microscopic WBC 1 0-3 /HPF Urine Squamous Epithelial Cells Few <5 /hpf Urine Bacteria None seen None Seen /hpf Urine Hyaline Casts Mod 0 - 2 /lpf Urine Glucose Normal Normal mg/dL D-Dimer, Quantitative 3.47 H 0.0-0.49 mg/L FEU Blood Gas Specimen Type Arterial Blood Gas Sample Site Right radial Blood Gas Patient Temperature 37.0 Arterial Blood Date Drawn [id number] Arterial Blood pH 7.387 7.350-7.450 Arterial Blood Partial Pressure CO2 43.6 35.0-48.0 mmHg Arterial Blood Partial Pressure O2 67.3 L 83.0-108.0 mmHg Arterial Blood HCO3 25.6 21.0-28.0 mmol/L Arterial Blood Oxygen Saturation 91.5 L 94.0-98.0 % Arterial Blood Base Excess 0.4 -2.0-3.0 mmol/L Arterial Blood Oxyhemoglobin 90.0 L 94.0-98.0 % Arterial Blood Carboxyhemoglobin 1.1 0.5-1.5 % Arterial Blood Methemoglobin 0.5 0.0-1.5 % Jose Roberto Test Yes Blood Gas Total Hemoglobin 11.50 L 13.5-17.5 g/dL Blood Gas Liter Flow 4.00 Blood Gas Modality Nasal cannula FiO2 % 36.0 B-Type Natriuretic Peptide 50.80 0-100 pg/mL Microbiology Date/Time Source Procedure Growth Status 08/29/24 06:00 Nose MRSA Screen - Final Methicillin Resistant S.aureus Complete Assessment Chest pain. Elevated D-dimer. Acute on chronic hypoxic respiratory failure. Acute on chronic diastolic heart failure. CAD s/p DESTINY x5. Status post PPM. HFpEF 70%. A Fib. CVA w/ right residual deficits. COPD. NIDDM. Chronic pain. KOLE VMN on CKD. Morbid obesity. Plan/Recommendation I agree with your ongoing assessment and care of plan. Telemetry reviewed. Aspirin, Lipitor. Morphine and Oxycodone for pain management. Nitro SL. GI prophylactics. Additional plan as per the hospital course. A total of 45 minutes was spent reviewing the patient record, examining the patient, making a diagnostic and therapeutic plan, discussing this plan with medical personnel, following up on diagnostic studies and following the patient for clinical stability excluding any and all procedures. At least 50% of this time was spent in direct, [id number] contact. Plan discussed with: Patient ROHINI ABARCA MD Aug 29, 2024 22:40
[2024-08-30 06:17] LABS: Alanine Aminotransferase 10 U/L (7-40); Albumin 3.4 g/dL (3.2-4.8); Alkaline Phosphatase 58 U/L (46-116); Anion Gap 6 (5-15); BUN/Creatinine Ratio 13.9 (10.0-20.0); Blood Urea Nitrogen 14 mg/dL (9-23); Calcium 9.2 mg/dL (8.7-10.4); Carbon Dioxide 30 mmol/L (20-31); Chloride 108 mmol/L (98-107); Glucose 102 mg/dL (74-106); Potassium 3.8 mmol/L (3.5-5.1); Sodium 144 mmol/L (136-145); Total Protein 6.9 g/dL (5.7-8.2)
[2024-08-30 06:18] LABS: Bilirubin, Total 0.4 mg/dL (0.2-1.0)
[2024-08-30 06:28] LABS: Hematocrit 31.6 % (41.0-53.0); Hemoglobin 10.3 g/dL (13.5-17.5); Mean Corpuscular Hemoglobin 28.4 pg (28.0-32.0); Mean Corpuscular Volume 87.5 fL (80.0-100.0); Nucleated Red Blood Cells % 0.1 %
--- NOTE | 2024-08-30 08:00 | DVHPN2 ---
Reviewed: Care Plan, H&P, Labs, Medications, Previous Orders, Radiology Changes from previous H/P or p: No Changes Eyes: No Pain, No Vision change, No Conjunctivae inflammation, No Eyelid inflammation, No Other, No Redness ENT: No Ear pain, No Ear discharge, No Nose pain, No Nose discharge, No Nose congestion, No Mouth pain, No Mouth swelling, No Throat pain, No Throat swelling, No Other Cardiovascular: No Chest Pain, No Palpitations, No Orthopnea, No Paroxysmal Noc. Dyspnea, No Edema, No Lt Headedness, No Other Respiratory: Shortness of breath, SOB with excertion, Other Gastrointestinal: No Nausea, No Vomiting, No Abdominal Pain, No Diarrhea, No Constipation, No Melena, No Hematochezia, No Other Genitourinary: No Dysuria, No Frequency, No Incontinence, No Hematuria, No Retention, No Other Musculoskeletal: No other, No neck pain, No shoulder pain, No arm pain, No back pain, No hand pain, No leg pain, No foot pain Skin: No Rash, No Lesions, No Jaundice, No Bruising, No Other Objective Vitals Vital Signs Date Time Temp Pulse Resp B/P (MAP) Pulse Ox O2 Delivery O2 Flow Rate FiO2 08/30/24 05:42 93 Nasal Cannula* 3 32 08/30/24 05:00 97.9 61 20 136/76 (96) 97.9 Intake/Output Intake and Output 08/30/24 07:00 Intake Total 400 ml Output Total 200 ml Balance 200 ml Intake Oral 200 ml IV Total 200 ml Output Urine Total 200 ml # Bowel Movements 1 Medications Current Medications Medications Dose Ordered Sig/Yvette Route Start Time Stop Time Status Last Admin Dose Admin Aspirin 81 mg DAILY PO 08/29/24 10:00 08/29/24 09:48 81 MG Atorvastatin Calcium 40 mg HS PO 08/29/24 22:00 08/29/24 20:42 40 MG Pantoprazole Sodium 40 mg DAILY IV 08/29/24 10:00 08/29/24 09:48 40 MG Trazodone HCl 100 mg HS PO 08/29/24 22:00 08/29/24 21:39 100 MG Levetiracetam 100 ml @ 400 mls/hr BID IV 08/29/24 10:00 08/29/24 20:42 400 MLS/HR Albuterol 2.5 mg Q4HPRN PRN NEB 08/29/24 03:45 Ipratropium [place] 0.5 mg Q4HPRN PRN NEB 08/29/24 03:45 Sodium Chloride 10 ml Q8HR IV 08/29/24 06:00 08/30/24 06:16 10 ML Ondansetron HCl 4 mg Q4HP PRN IV 08/29/24 03:45 Docusate Sodium 100 mg BIDPRN PRN PO 08/29/24 03:45 Acetaminophen 650 mg Q6HP PRN PO 08/29/24 03:45 Nitroglycerin 0.4 mg Q5MINP PRN SL 08/29/24 03:45 Morphine Sulfate 2 mg Q30M PRN IV 08/29/24 03:45 08/29/24 19:49 2 MG Oxycodone/ Acetaminophen 2 tab BIDP PRN PO 08/29/24 06:00 08/29/24 23:34 2 TAB Mupirocin 1 applic BID EACHNOSTRI 08/29/24 22:00 09/03/24 21:59 08/29/24 20:42 1 APPLIC Laboratory Results Laboratory Tests 08/30/24 05:25 Chemistry Test 08/30/24 05:25 Albumin 3.4 g/dL (3.2-4.8) Calcium Level 9.2 mg/dL (8.7-10.4) Total Protein 6.9 g/dL (5.7-8.2) LFT Test 08/30/24 05:25 Alanine Aminotransferase (ALT) 10 U/L (7-40) Alkaline Phosphatase 58 U/L (46-116) Aspartate Amino Transferase (AST) 15 U/L (13-40) Total Bilirubin 0.4 mg/dL (0.2-1.0) Urinalysis Test 08/29/24 00:30 Urine Color Yellow (Yellow) Urine Clarity Clear (Clear) Urine pH 5.0 (5.0-9.0) Urine Specific [place] 1.014 (1.001-1.035) Urine Protein Negative (Negative) Urine Ketones Negative (Negative) Urine Blood Negative /uL (Negative) Urine Nitrite Negative (Negative) Urine Bilirubin Negative (Negative) Urine Urobilinogen Normal mg/dL (Negative) Urine Leukocyte Esterase Negative /uL (Negative) Urine RBC None seen /hpf (0 - 3) Urine Microscopic WBC 1 /HPF (0-3) Urine Squamous Epithelial Cells Few /hpf (<5) Urine Bacteria None seen /hpf (None Seen) Urine Hyaline Casts Mod /lpf (0 - 2) Urine Glucose Normal mg/dL (Normal) Microbiology Microbiology Date/Time Source Procedure Growth Status 08/29/24 06:00 Nose MRSA Screen - Final Methicillin Resistant S.aureus Complete Labs and/or images reviewed: Labs reviewed by me, Image(s) reviewed by me Assessment/Plan Assessment/Plan Acute chest pain rule out coronary artery disease: Troponin slightly elevated 65, cardiology consult by appreciated Elevated D-dimer 3.47 PE ruled out Acute on chronic hypoxic RF Acute on chronic diastolic HF CAD s/p DESTINY x5 s/p PPM HFpEF 70% afib Chronic pain syndrome Percocet 10 q.6 hours CVA w/ right residual deficits COPD on 3 L of oxygen at home NIDDM chronic pain KOLE VMN on CKD Seizure? morbid obesity Time spent 70 minutes Patient is full code Plan discussed with: Patient My Orders Orders - CYDNEY MCGARRY MD Procedure Category Date Status Time Mupirocin 2% Oint PHA 08/29/24 In Process Mrsa Nares (Bactroban 22:00 * Interactive Web Developer CONS 08/30/24 Transmitted Consult 01:03 Education - Smoking ELLIE 08/30/24 In Process Cessation 01:03 * Smoking Cessation CONS 08/30/24 Transmitted Consult 01:03 Date of Service: Aug 30, 2024 Billing Provider: CYDNEY MCGARRY MD Common Visit Codes: [id number] CARE 30-74 MIN CYDNEY MCGARRY MD Aug 30, 2024 08:00
[2024-08-30] MEDS: OXYCODONE W/ ACETAMINOPHEN 5/325MG TABLET PO PRN (12:05)
--- NOTE | 2024-08-30 23:32 | DVHPN2 ---
Progress Note - Dictate Date Seen: Aug 30, 2024 Medical Necessity Reason Pt with a Central, PICC or Fol: No Subjective Patient was seen and evaluated in follow up. Patient is complaining of chest pain with shortness of breath. He is on 3 LPM NC. MRSA +, patient started on Bactroban ointment. Telemetry reviewed. vital signs Vital Sign Date Time Temp Pulse Resp B/P (MAP) Pulse Ox O2 Delivery O2 Flow Rate FiO2 08/30/24 08:00 96.9 58 18 135/51 (79) 97 96.9 08/30/24 05:42 Nasal Cannula* 3 32 Total Intake and Output 08/29/24 08/29/24 08/30/24 15:00 23:00 07:00 Intake Total 200 ml 200 ml Output Total 200 ml Balance 200 ml 0 ml medications Current Medications Medications Dose Ordered Sig/Yvette Route Start Time Stop Time Status Last Admin Dose Admin Aspirin 81 mg DAILY PO 08/29/24 10:00 08/30/24 10:00 81 MG Atorvastatin Calcium 40 mg HS PO 08/29/24 22:00 08/29/24 20:42 40 MG Pantoprazole Sodium 40 mg DAILY IV 08/29/24 10:00 08/30/24 10:00 40 MG Trazodone HCl 100 mg HS PO 08/29/24 22:00 08/29/24 21:39 100 MG Levetiracetam 100 ml @ 400 mls/hr BID IV 08/29/24 10:00 08/30/24 10:00 400 MLS/HR Albuterol 2.5 mg Q4HPRN PRN NEB 08/29/24 03:45 Ipratropium [place] 0.5 mg Q4HPRN PRN NEB 08/29/24 03:45 Sodium Chloride 10 ml Q8HR IV 08/29/24 06:00 08/30/24 06:16 10 ML Ondansetron HCl 4 mg Q4HP PRN IV 08/29/24 03:45 Docusate Sodium 100 mg BIDPRN PRN PO 08/29/24 03:45 Acetaminophen 650 mg Q6HP PRN PO 08/29/24 03:45 Nitroglycerin 0.4 mg Q5MINP PRN SL 08/29/24 03:45 Morphine Sulfate 2 mg Q30M PRN IV 08/29/24 03:45 08/29/24 19:49 2 MG Mupirocin 1 applic BID EACHNOSTRI 08/29/24 22:00 09/03/24 21:59 08/30/24 10:00 1 APPLIC Oxycodone/ Acetaminophen 2 tab Q4HR PRN PO 08/30/24 08:15 08/30/24 12:05 2 TAB objective GENERAL: Alert and oriented x 3. No acute distress. EYES: PERRL, EOMI. Anicteric. HENT: Moist mucous membranes. LUNGS: Clear to auscultation bilaterally. CARDIOVASCULAR: Regular rate and rhythm. ABDOMEN: Soft, nontender and nondistended. EXTREMITIES: No edema. NEUROLOGIC: No focal neurological deficits. SKIN: Warm, dry. laboratory and microbiology Laboratory Tests 08/30/24 05:25 Test 08/30/24 05:25 Range/Units Serum Glucose 102 74-106 mg/dL Problem List Chest pain. Elevated D-dimer. Acute on chronic hypoxic respiratory failure. Acute on chronic diastolic heart failure. CAD s/p DESTINY x5. Status post PPM. HFpEF 70%. A Fib. CVA w/ right residual deficits. COPD. NIDDM. Chronic pain. KOLE VMN on CKD. Morbid obesity. Assessment/Plan Continued all current supportive medical care. Aspirin, Lipitor. Oxycodone for pain management. Nitro SL. GI prophylactics. Additional plan as per the hospital course. Plan discussed with: Patient ROHINI ABARCA MD Aug 30, 2024 12:51
[2024-08-31] VITALS (12 sets, daily range): BP systolic 124–134; BP diastolic 53–69; PULSE 53–83; RESP 16–24; TEMP 97.2–97.7; O2SAT 90–97
--- NOTE | 2024-08-31 08:42 | DVHPN2 ---
Reviewed: Care Plan, H&P, Labs, Medications, Previous Orders, Radiology Changes from previous H/P or p: No Changes Eyes: No Pain, No Vision change, No Conjunctivae inflammation, No Eyelid inflammation, No Other, No Redness ENT: No Ear pain, No Ear discharge, No Nose pain, No Nose discharge, No Nose congestion, No Mouth pain, No Mouth swelling, No Throat pain, No Throat swelling, No Other Cardiovascular: No Chest Pain, No Palpitations, No Orthopnea, No Paroxysmal Noc. Dyspnea, No Edema, No Lt Headedness, No Other Respiratory: Shortness of breath, SOB with excertion, Other Gastrointestinal: No Nausea, No Vomiting, No Abdominal Pain, No Diarrhea, No Constipation, No Melena, No Hematochezia, No Other Genitourinary: No Dysuria, No Frequency, No Incontinence, No Hematuria, No Retention, No Other Musculoskeletal: No other, No neck pain, No shoulder pain, No arm pain, No back pain, No hand pain, No leg pain, No foot pain Skin: No Rash, No Lesions, No Jaundice, No Bruising, No Other Objective Vitals Vital Signs Date Time Temp Pulse Resp B/P (MAP) Pulse Ox O2 Delivery O2 Flow Rate FiO2 08/31/24 07:36 94 Nasal Cannula 4.0 08/31/24 07:36 36 08/31/24 05:00 97.2 56 16 134/69 (90) 97.2 Intake/Output Intake and Output 08/31/24 07:00 Intake Total 970 ml Output Total 840 ml Balance 130 ml Intake Oral 770 ml IV Total 200 ml Output Urine Total 840 ml Medications Current Medications Medications Dose Ordered Sig/Yvette Route Start Time Stop Time Status Last Admin Dose Admin Aspirin 81 mg DAILY PO 08/29/24 10:00 08/30/24 10:00 81 MG Atorvastatin Calcium 40 mg HS PO 08/29/24 22:00 08/30/24 21:38 40 MG Pantoprazole Sodium 40 mg DAILY IV 08/29/24 10:00 08/30/24 10:00 40 MG Trazodone HCl 100 mg HS PO 08/29/24 22:00 08/30/24 21:38 100 MG Levetiracetam 100 ml @ 400 mls/hr BID IV 08/29/24 10:00 08/30/24 21:37 400 MLS/HR Albuterol 2.5 mg Q4HPRN PRN NEB 08/29/24 03:45 Ipratropium [place] 0.5 mg Q4HPRN PRN NEB 08/29/24 03:45 Sodium Chloride 10 ml Q8HR IV 08/29/24 06:00 08/31/24 04:53 10 ML Ondansetron HCl 4 mg Q4HP PRN IV 08/29/24 03:45 Docusate Sodium 100 mg BIDPRN PRN PO 08/29/24 03:45 Acetaminophen 650 mg Q6HP PRN PO 08/29/24 03:45 Nitroglycerin 0.4 mg Q5MINP PRN SL 08/29/24 03:45 Morphine Sulfate 2 mg Q30M PRN IV 08/29/24 03:45 08/29/24 19:49 2 MG Mupirocin 1 applic BID EACHNOSTRI 08/29/24 22:00 09/03/24 21:59 08/30/24 21:39 1 APPLIC Oxycodone/ Acetaminophen 2 tab Q4HR PRN PO 08/30/24 08:15 08/31/24 03:33 2 TAB Laboratory Results Laboratory Tests 08/30/24 05:25 Urinalysis Test 08/29/24 00:30 Urine Color Yellow (Yellow) Urine Clarity Clear (Clear) Urine pH 5.0 (5.0-9.0) Urine Specific [place] 1.014 (1.001-1.035) Urine Protein Negative (Negative) Urine Ketones Negative (Negative) Urine Blood Negative /uL (Negative) Urine Nitrite Negative (Negative) Urine Bilirubin Negative (Negative) Urine Urobilinogen Normal mg/dL (Negative) Urine Leukocyte Esterase Negative /uL (Negative) Urine RBC None seen /hpf (0 - 3) Urine Microscopic WBC 1 /HPF (0-3) Urine Squamous Epithelial Cells Few /hpf (<5) Urine Bacteria None seen /hpf (None Seen) Urine Hyaline Casts Mod /lpf (0 - 2) Urine Glucose Normal mg/dL (Normal) Microbiology Microbiology Date/Time Source Procedure Growth Status 08/29/24 06:00 Nose MRSA Screen - Final Methicillin Resistant S.aureus Complete Labs and/or images reviewed: Labs reviewed by me, Image(s) reviewed by me Assessment/Plan Assessment/Plan Acute chest pain rule out coronary artery disease: Troponin slightly elevated 65, cardiology consult by appreciated Elevated D-dimer 3.47 PE ruled out Acute on chronic hypoxic RF Acute on chronic diastolic HF CAD s/p DESTINY x5 s/p PPM HFpEF 70% afib Chronic pain syndrome Percocet 10 q.6 hours CVA w/ right residual deficits COPD on 3 L of oxygen at home NIDDM chronic pain KOLE VMN on CKD Seizure? morbid obesity Time spent 55 minutes Patient is full code Plan discussed with: Patient My Orders Orders - CYDNEY MCGARRY MD Procedure Category Date Status Time Initiate Vte ELLIE 08/30/24 In Process Prophylaxis 23:28 Date of Service: Aug 31, 2024 Billing Provider: CYDNEY MCGARRY MD Common Visit Codes: [id number] INP/OBS CARE(HIGH) CYDNEY MCGARRY MD Aug 31, 2024 08:42
[2024-08-31] MEDS: ALBUTEROL SULF 2.5 MG/0.5ML(0.5%) NEB SOLN NEB PRN (18:52)
[2024-08-31] MEDS: IPRATROPIUM BROM 0.5 MG/2.5ML INH SOL NEB PRN (18:52)
--- NOTE | 2024-08-31 22:27 | DVHPN2 ---
Progress Note - Dictate Date Seen: Aug 31, 2024 Medical Necessity Reason Pt with a Central, PICC or Fol: No Subjective Patient was seen and evaluated in follow up. Patient is complaining of shortness of breath. He is on 2 LPM NC. Telemetry reviewed. vital signs Vital Sign Date Time Temp Pulse Resp B/P (MAP) Pulse Ox O2 Delivery O2 Flow Rate FiO2 08/31/24 09:00 97.5 60 17 132/63 (86) 92 97.5 08/31/24 08:00 Nasal Cannula* 2 28 Total Intake and Output 08/30/24 08/30/24 08/31/24 15:00 23:00 07:00 Intake Total 100 ml 550 ml 320 ml Output Total 500 ml 340 ml Balance 100 ml 50 ml -20 ml medications Current Medications Medications Dose Ordered Sig/Yvette Route Start Time Stop Time Status Last Admin Dose Admin Aspirin 81 mg DAILY PO 08/29/24 10:00 08/31/24 10:04 81 MG Atorvastatin Calcium 40 mg HS PO 08/29/24 22:00 08/30/24 21:38 40 MG Pantoprazole Sodium 40 mg DAILY IV 08/29/24 10:00 08/31/24 10:03 40 MG Trazodone HCl 100 mg HS PO 08/29/24 22:00 08/30/24 21:38 100 MG Levetiracetam 100 ml @ 400 mls/hr BID IV 08/29/24 10:00 08/31/24 10:03 400 MLS/HR Albuterol 2.5 mg Q4HPRN PRN NEB 08/29/24 03:45 Ipratropium [place] 0.5 mg Q4HPRN PRN NEB 08/29/24 03:45 Sodium Chloride 10 ml Q8HR IV 08/29/24 06:00 08/31/24 04:53 10 ML Ondansetron HCl 4 mg Q4HP PRN IV 08/29/24 03:45 Docusate Sodium 100 mg BIDPRN PRN PO 08/29/24 03:45 Acetaminophen 650 mg Q6HP PRN PO 08/29/24 03:45 Nitroglycerin 0.4 mg Q5MINP PRN SL 08/29/24 03:45 Morphine Sulfate 2 mg Q30M PRN IV 08/29/24 03:45 08/29/24 19:49 2 MG Mupirocin 1 applic BID EACHNOSTRI 08/29/24 22:00 09/03/24 21:59 08/31/24 10:04 1 APPLIC Oxycodone/ Acetaminophen 2 tab Q4HR PRN PO 08/30/24 08:15 08/31/24 10:04 2 TAB objective GENERAL: Alert and oriented x 3. No acute distress. EYES: PERRL, EOMI. Anicteric. HENT: Moist mucous membranes. LUNGS: Clear to auscultation bilaterally. CARDIOVASCULAR: Regular rate and rhythm. ABDOMEN: Soft, nontender and nondistended. EXTREMITIES: No edema. NEUROLOGIC: No focal neurological deficits. SKIN: Warm, dry. laboratory and microbiology Laboratory Tests 08/30/24 05:25 Test 08/30/24 05:25 Range/Units Serum Glucose 102 74-106 mg/dL Problem List Chest pain. Elevated D-dimer. Acute on chronic hypoxic respiratory failure. Acute on chronic diastolic heart failure. CAD s/p DESTINY x5. Status post PPM. HFpEF 70%. A Fib. CVA w/ right residual deficits. COPD. NIDDM. Chronic pain. KOLE VMN on CKD. Morbid obesity. Assessment/Plan Continued all current supportive medical care. Aspirin. Oxycodone for pain management. Nitro SL. GI prophylactics. Additional plan as per the hospital course. Plan discussed with: Patient ROHINI ABARCA MD Aug 31, 2024 13:09
[2024-09-01] VITALS (12 sets, daily range): BP systolic 137–149; BP diastolic 52–73; PULSE 53–74; RESP 17–22; TEMP 97.4–98.3; O2SAT 79–99
[2024-09-01] MEDS ORDERED: PERCOT PO (10:07)
--- NOTE | 2024-09-01 10:14 | DVHDS2 ---
Discharge Summary Date of Admission Aug 29, 2024 at 03:45 Date of Discharge: Sep 01, 2024 Admitting Diagnosis Chest pain Wounds: None Labs/Diagnostic Data: Laboratory Results Test 08/30/24 05:25 08/29/24 06:00 08/29/24 02:11 08/29/24 01:05 White Blood Count 7.6 10^3/uL (4.4-10.8) Red Blood Count 3.61 10^6/uL (4.5-5.90) Hemoglobin 10.3 g/dL (13.5-17.5) Hematocrit 31.6 % (41.0-53.0) Mean Corpuscular Volume 87.5 fL (80.0-100.0) Mean Corpuscular Hemoglobin 28.4 pg (28.0-32.0) Mean Corpuscular Hemoglobin Concent 32.5 g/dL (32.0-36.0) Red Cell Distribution Width 16.9 % (11.8-14.3) Platelet Count 212 10^3/uL (140-450) Mean Platelet Volume 9.9 fL (6.9-10.8) Neutrophils (%) (Auto) 63.4 % (37.0-80.0) Lymphocytes (%) (Auto) 20.9 % (10.0-50.0) Monocytes (%) (Auto) 8.6 % (0.0-12.0) Eosinophils (%) (Auto) 6.1 % (0.0-7.0) Basophils (%) (Auto) 1.0 % (0.0-2.0) Neutrophils # (Auto) 4.8 10 ^3/uL (1.6-8.6) Lymphocytes # (Auto) 1.6 10 ^3/uL (0.4-5.4) Monocytes # (Auto) 0.7 10 ^3/uL (0-1.3) Eosinophils # (Auto) 0.5 10 ^3/uL (0-0.8) Basophils # (Auto) 0.1 10 ^3/uL (0-0.2) Nucleated Red Blood Cells 0.1 % Sodium Level 144 mmol/L (136-145) Potassium Level 3.8 mmol/L (3.5-5.1) Chloride Level 108 mmol/L (98-107) Carbon Dioxide Level 30 mmol/L (20-31) Anion Gap 6 (5-15) Blood Urea Nitrogen 14 mg/dL (9-23) Creatinine 1.01 mg/dL (0.700-1.30) Glomerular Filtration Rate Calc 80 mL/min (>90) BUN/Creatinine Ratio 13.9 (10.0-20.0) Serum Glucose 102 mg/dL (74-106) Calcium Level 9.2 mg/dL (8.7-10.4) Total Bilirubin 0.4 mg/dL (0.2-1.0) Aspartate Amino Transferase (AST) 15 U/L (13-40) Alanine Aminotransferase (ALT) 10 U/L (7-40) Alkaline Phosphatase 58 U/L (46-116) Total Protein 6.9 g/dL (5.7-8.2) Albumin 3.4 g/dL (3.2-4.8) Influenza Type A Antigen Negative (Negative) Influenza Type B Antigen Negative (Negative) SARS-CoV-2 Antigen (Rapid) Negative (NEGATIVE) Troponin I High Sensitivity 58 ng/L (</=54) Lactic Acid Level 2.1 mmol/L (0.4-2.0) Test 08/29/24 00:30 08/28/24 23:07 Urine Color Yellow (Yellow) Urine Clarity Clear (Clear) Urine pH 5.0 (5.0-9.0) Urine Specific [place] 1.014 (1.001-1.035) Urine Protein Negative (Negative) Urine Ketones Negative (Negative) Urine Blood Negative /uL (Negative) Urine Nitrite Negative (Negative) Urine Bilirubin Negative (Negative) Urine Urobilinogen Normal mg/dL (Negative) Urine Leukocyte Esterase Negative /uL (Negative) Urine RBC None seen /hpf (0 - 3) Urine Microscopic WBC 1 /HPF (0-3) Urine Squamous Epithelial Cells Few /hpf (<5) Urine Bacteria None seen /hpf (None Seen) Urine Hyaline Casts Mod /lpf (0 - 2) Urine Glucose Normal mg/dL (Normal) D-Dimer, Quantitative 3.47 mg/L FEU (0.0-0.49) Blood Gas Specimen Type Arterial Blood Gas Sample Site Right radial Blood Gas Patient Temperature 37.0 Arterial Blood Date Drawn [id number] Arterial Blood pH 7.387 (7.350-7.450) Arterial Blood Partial Pressure CO2 43.6 mmHg (35.0-48.0) Arterial Blood Partial Pressure O2 67.3 mmHg (83.0-108.0) Arterial Blood HCO3 25.6 mmol/L (21.0-28.0) Arterial Blood Oxygen Saturation 91.5 % (94.0-98.0) Arterial Blood Base Excess 0.4 mmol/L (-2.0-3.0) Arterial Blood Oxyhemoglobin 90.0 % (94.0-98.0) Arterial Blood Carboxyhemoglobin 1.1 % (0.5-1.5) Arterial Blood Methemoglobin 0.5 % (0.0-1.5) Jose Roberto Test Yes Blood Gas Total Hemoglobin 11.50 g/dL (13.5-17.5) Blood Gas Liter Flow 4.00 Blood Gas Modality Nasal cannula FiO2 % 36.0 B-Type Natriuretic Peptide 50.80 pg/mL (0-100) Other Laboratory Tests 08/30/24 05:25 Brief Hx & Hospital Course: 69-year-old male with multiple medical problems including chronic respiratory failure chronic diastolic congestive heart failure ejection fraction 70 percent coronary artery disease status post stents status post permanent pacemaker CVA with right-sided deficits COPD diabetes chronic pain syndrome AK morbidly obese came in for chest pain. D-dimer slightly elevated. PE ruled out. treated per ACS protocol seen by Cardiology Dr. Abarca. Advised to continue all home medications. No further cardiac workup discharged home patient uses 3 L of oxygen at home. Prescription for Percocet for chronic pain transmitted to pharmacy. Reviewed all other home medications. Consults/Reason for consult Cardiology Dr. Abarca Operations or Procedures None Condition at Discharge: Fair Final Diagnosis/Problems List Chest pain. Elevated D-dimer. Acute on chronic hypoxic respiratory failure. Acute on chronic diastolic heart failure. CAD s/p DESTINY x5. Status post PPM. HFpEF 70%. A Fib. CVA w/ right residual deficits. COPD. NIDDM. Chronic pain. KOLE VMN on CKD. Morbid obesity. Discharge Disposition: Home Discharge Instruct/Medications Diet: Cardiac 2g Na,low cholest Activity: Light activity Follow Up/Referral: FOLLOW UP WITH THE PRIMARY DR IN ONE WEEK FOLLOW UP WITH THE CARDIOLOGY DR. ABARCA IN TWO WEEKS Continue all your previous home medication Medications: Percocet Transmitted to [facility] Scheduled Aspirin (Aspirin Regular Strength), 1 TAB PO DAILY, (Reported) Atorvastatin Calcium (Lipitor), 1 TAB PO DAILY, (Reported) Beclomethasone Dipropionate (Qvar Redihaler), 1 PUFF INH BID, (Reported) Budesonide-Formoterol Fumarate (Budesonide/Formoterol Fum 160-4.5 Mcg/Act), 2 PUFF IN BID, (Reported) Bupropion Hcl (Bupropion Hcl), 2 TAB PO DAILY, (Reported) Clopidogrel Bisulfate (Clopidogrel), 1 TAB PO DAILY, (Reported) Dapagliflozin Propanediol (Farxiga), 1 TAB PO DAILY, (Reported) Furosemide (Lasix), 40 MG PO BID Gabapentin (Gabapentin), 1 TAB PO BID, (Reported) Ipratropium-Albuterol (Combivent Respimat), 1 PUFF INH QID, (Reported) Lactulose (Lactulose), 15 ML PO BID PRN, (Reported) Levetiracetam (Levetiracetam), 1 TAB PO BID, (Reported) Lidocaine (Lidocaine Topical Pain Pa), 1 PATCH TOP DAILY, (Reported) Methocarbamol (Methocarbamol), 1.5 TAB PO Q8HR PRN, (Reported) Midodrine HCl (Midodrine Hydrochloride), 1 TAB PO TID, (Reported) Oxybutynin Chloride (Ditropan Xl), 15 MG PO DAILY, (Reported) Oxycodone W/ Acetaminophen (Percocet 5/325MG), 2 TAB PO BIDPRN, (Reported) Oxycodone W/ Acetaminophen (Percocet 5/325MG), 1 TAB PO QID Pantoprazole Sodium Sesquihydr (Pantoprazole Sodium), 1 TAB PO QAM, (Reported) Potassium Chloride (Potassium Chloride ER), 1 TAB PO BID, (Reported) Prednisone (Prednisone), 40 MG PO DAILY Ranolazine (Ranexa), 500 MG PO BID Silver Sulfadiazine (Silver Sulfadiazine), 1 APPLIC TOP DAILY, (Reported) Trazodone Hcl (Trazodone Hcl), 4 TAB PO HS, (Reported) 39 (Time taken for discharge summary 39 minutes) Discharge Statement: "Patient was advised to return to the ER or call 911 if any headaches, dizziness, shortness of breath, chest pain, abdominal pain, bleeding, fevers, or worsening of medical condition. Patient was counseled about treatment plan, medications, possible side effects, patientverbalized understanding. All questions were answered to the best of my ability. This discharge took greater then 30 minutes in planning, reviewing documentation, counseling the patient, and discussing with other team members." ASSESSMENT ASSESSMENT Assessment Chest pain. Elevated D-dimer. Acute on chronic hypoxic respiratory failure. Acute on chronic diastolic heart failure. CAD s/p DESTINY x5. Status post PPM. HFpEF 70%. A Fib. CVA w/ right residual deficits. COPD. NIDDM. Chronic pain. KOLE VMN on CKD. Morbid obesity. Date of Service: Sep 01, 2024 Billing Provider: CYDNEY MCGARRY MD Common Visit Codes: [id number] INP/OBS CARE(HIGH) CYDNEY MCGARRY MD Sep 01, 2024 10:14
--- NOTE | 2024-09-01 23:30 | DVHPN2 ---
Progress Note - Dictate Date Seen: Sep 01, 2024 Medical Necessity Reason Pt with a Central, PICC or Fol: No Subjective Patient was seen and evaluated in follow up. Patient has no new complaints at this time. Patient denies any cardiac symptoms. Patient is cardiac stable for discharge. Telemetry reviewed. vital signs Vital Sign Date Time Temp Pulse Resp B/P (MAP) Pulse Ox O2 Delivery O2 Flow Rate FiO2 09/01/24 17:33 97.4 56 18 140/73 (95) 96 97.4 09/01/24 09:31 Nasal Cannula* 2 28 Total Intake and Output 08/31/24 08/31/24 09/01/24 15:00 23:00 07:00 Intake Total 400 ml 650 ml 200 ml Output Total 1025 ml 390 ml Balance 400 ml -375 ml -190 ml objective GENERAL: Alert and oriented x 3. No acute distress. EYES: PERRL, EOMI. Anicteric. HENT: Moist mucous membranes. LUNGS: Clear to auscultation bilaterally. CARDIOVASCULAR: Regular rate and rhythm. ABDOMEN: Soft, nontender and nondistended. EXTREMITIES: No edema. NEUROLOGIC: No focal neurological deficits. SKIN: Warm, dry. laboratory and microbiology Laboratory Tests 08/30/24 05:25 Test 08/30/24 05:25 Range/Units Serum Glucose 102 74-106 mg/dL Problem List Chest pain. Elevated D-dimer. Acute on chronic hypoxic respiratory failure. Acute on chronic diastolic heart failure. CAD s/p DESTINY x5. Status post PPM. HFpEF 70%. A Fib. CVA w/ right residual deficits. COPD. NIDDM. Chronic pain. KOLE VMN on CKD. Morbid obesity. Assessment/Plan Continued all current supportive medical care. Aspirin. Oxycodone for pain management. Nitro SL. GI prophylactics. Additional plan as per the hospital course. Plan discussed with: Patient ROHINI ABARCA MD Sep 01, 2024 23:30
== END 2024-09-01 18:40 | disposition home or self-care (01) | DRG 291 ==
LOC: ER 22:12 → EDBD 22:12 → OVERFLOW 08-29 03:45 → TELE-CENTR 08-29 22:30
PROVIDERS: ADMIT Family Medicine; ATTEND Family Medicine
DX: I13.0 Hypertensive heart and chronic kidney disease with heart failure and stage 1 through stage 4 chronic kidney disease, or unspecified chronic kidney disease (principal); I50.33 Acute on chronic diastolic (congestive) heart failure; J96.21 Acute and chronic respiratory failure with hypoxia; J44.1 Chronic obstructive pulmonary disease with (acute) exacerbation; E87.6 Hypokalemia; I25.10 Atherosclerotic heart disease of native coronary artery without angina pectoris; I48.91 Unspecified atrial fibrillation; E66.01 Morbid (severe) obesity due to excess calories; E11.22 Type 2 diabetes mellitus with diabetic chronic kidney disease; G89.4 Chronic pain syndrome; F41.9 Anxiety disorder, unspecified; K21.9 Gastro-esophageal reflux disease without esophagitis; Z99.81 Dependence on supplemental oxygen; Z90.49 Acquired absence of other specified parts of digestive tract; Z95.5 Presence of coronary angioplasty implant and graft; Z83.3 Family history of diabetes mellitus; Z82.5 Family history of asthma and other chronic lower respiratory diseases; Z82.49 Family history of ischemic heart disease and other diseases of the circulatory system; Z82.3 Family history of stroke; Z81.8 Family history of other mental and behavioral disorders; Z79.899 Other long term (current) drug therapy; Z95.0 Presence of cardiac pacemaker; Z86.73 Personal history of transient ischemic attack (TIA), and cerebral infarction without residual deficits; Z79.84 Long term (current) use of oral hypoglycemic drugs; Z68.37 Body mass index [BMI] 37.0-37.9, adult; N18.2 Chronic kidney disease, stage 2 (mild)
CPT/HCPCS: 36415; 36600; 71045; 71275; 80053; 81001; 82805; 83605; 83880; 84484; 85025; 85379; 87081; 87426; 87804; 93005; 94640; 96361; 96374; G0378; J2470; J3480

== ENCOUNTER 2024-09-05 22:19 | Inpatient (IN) | payer BC, OTHER ==
[~2024-09-05] VITALS: Ht 175.3 cm; Wt 134.3 kg
[~2024-09-05 22:19] MED LIST changes: -HYDR-4798 PO; -HYDR-4902 PO; +PERCOT PO
--- NOTE | 2024-09-05 22:23 | ECG ---
[facility] Test Date: 2024-09-05 Test Time: 22:17:25 Pat Name: NAVID SANCHEZ Department: ED Room: 0232T Gender: M [employer] Diver: NIC : 1955 Requested By: EMERGENCY EMERGENCY Order Number: [id number] Reading MD: Som Vásquez Measurements Intervals [place] Rate: 74 P: 3 WA: 164 QRS: -59 QRSD: 102 T: 87 QT: 420 QTc: 466 Interpretive Statements Sinus rhythm Left anterior fascicular block Abnormal R-wave progression, late transition Electronically Signed On 09-10-2024 15:48:27 PDT by Som Vásquez Please click the below link to view image of tracing.
--- NOTE | 2024-09-05 22:35 | ED.PDOC ---
HPI Comments 69 year old Obese male with a Hx of CHF, COPD, HTN, High lipids, CVA, TIA, and CKF was BIBA for the c/c of Left Sided Chest pain w/ associated radiating Back pain, and a mild non-productive cough. Pt states that his symptoms started at approx 12pm yesterday afternoon and has found no alleviating factors. EMS states that pt does use 2L O2 at home, and is currently SAT at 94% RA with Oxygen. No other associated symptoms, modifiers, recent injuries or sick contacts present a t this time. 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, Medications, Allergies Allergies: Coded Allergies: NO KNOWN ALLERGIES (Unverified , 10/04/22) Home Meds Active Scripts Oxycodone W/ Acetaminophen (Percocet 5/325MG) 1 Tab Tb, 1 TAB PO QID, #40 TAB Prov:CYDNEY MCGARRY MD 09/01/24 Furosemide (Lasix) 40 Mg Tab, 40 MG PO BID for 30 Days, #60 TAB Prov:BK LAGUERRE MD 05/29/24 Prednisone (Prednisone) 20 Mg Tab, 40 MG PO DAILY for 5 Days, #5 MG Prov:BK LAGUERRE MD 05/29/24 Ranolazine (Ranexa) 500 Mg Tab, 500 MG PO BID for 30 Days, #60 TAB Prov:JUSTIN DUARTE MD 10/22/18 Reported Medications Oxycodone W/ Acetaminophen (Percocet 5/325MG) 1 Tab Tb, 2 TAB PO BIDPRN for CHRONIC PAIN, TAB 08/29/24 Budesonide-Formoterol Fumarate (Budesonide/Formoterol Fum 160-4.5 Mcg/Act) 1 Aer Aer, 2 PUFF IN BID for 30 Days, #10.2 02/26/24 Midodrine HCl (Midodrine Hydrochloride) 5 Mg Tab, 1 TAB PO TID for 30 Days, #90 02/26/24 Potassium Chloride (Potassium Chloride ER) 10 Meq Tab, 1 TAB PO BID for 30 Days, #60 02/26/24 Aspirin (Aspirin Regular Strength) 325 Mg Tab, 1 TAB PO DAILY for 30 Days, #30 02/26/24 Lactulose (Lactulose) 10 Gm/15 Ml Rachna, 15 ML PO BID PRN for 15 Days, #473 1/7/25 Atorvastatin Calcium (Lipitor) 80 Mg Tab, 1 TAB PO DAILY for 30 Days, #30 02/26/24 Levetiracetam (Levetiracetam) 750 Mg Tab, 1 TAB PO BID for 30 Days, #60 02/26/24 Lidocaine (Lidocaine Topical Pain Pa) 4 % Pad, 1 PATCH TOP DAILY 06/28/23 Gabapentin (Gabapentin) 800 Mg Tab, 1 TAB PO BID for 30 Days, #60 06/28/23 Ipratropium-Albuterol (COMBIVENT RESPIMAT) Respimat Aer, 1 PUFF INH QID 05/14/23 Methocarbamol (Methocarbamol) 500 Mg Tab, 1.5 TAB PO Q8HR PRN for 8 Days, #40 05/14/23 Dapagliflozin Propanediol (Farxiga) 10 Mg Tab, 1 TAB PO DAILY for 30 Days, #30 05/14/23 Beclomethasone Dipropionate (Qvar Redihaler) 80 Mcg/Act Aer, 1 PUFF INH BID for 30 Days, #10.6 02/27/23 Silver Sulfadiazine (Silver Sulfadiazine) 1 % Cre, 1 APPLIC TOP DAILY for 30 Days, #50 02/27/23 Oxybutynin Chloride (Ditropan Xl) 5 Mg Tab, 15 MG PO DAILY for 30 Days, #30 02/27/23 Trazodone Hcl (Trazodone Hcl) 100 Mg Tab, 4 TAB PO HS for 30 Days, #120 02/27/23 Clopidogrel Bisulfate (CLOPIDOGREL) 75 Mg Tab, 1 TAB PO DAILY for 30 Days, #30 02/07/23 Pantoprazole Sodium Sesquihydr (Pantoprazole Sodium) 40 Mg Tab, 1 TAB PO QAM 02/07/23 Bupropion Hcl (Bupropion Hcl) 75 Mg Tab, 2 TAB PO DAILY for 30 Days, #60 11/10/17 Information Source: Patient, Emergency Med Personnel Mode of Arrival: EMS Severity: Moderate Timing: Days Duration: Since onset, Days Prehospital treatment: 12 Lead EKG, Oxygen Location: Chest (L) Radiation: Back Quality: Pressure Onset: At Rest Cardiac Risk Factors: Hyperlipidemia, HTN PE Risk Factors: None History of: None Modifying Factors: Coughing, Breathing, Movement Associated Signs and Symptoms: SOB Past Medical History PAST MEDICAL HISTORY: Angina, Anxiety, Asthma, CAD, CHF, CKF, COPD, CVA, Depression, DM, GERD, High Lipids, HTN, Liver, [place], MRSA, TIA, UTI'S Surgical History: Appendectomy, Cholecystectomy, PTCA, Thyroidectomy Family History Family History: Reviewed,noncontributory to illness, Unknown Social History Smoker: Non-Smoker Alcohol: Denies ETOH Use Drugs: Denies Drug Use Lives In: Home Constitutional: denies: chills, diaphoresis, fatigue, fever, malaise, sweats, weakness, others EENTM: denies: blurred vision, double vision, ear bleeding, ear discharge, ear drainage, ear pain, ear ringing, eye pain, eye redness, hearing loss, mouth pain, mouth swelling, nasal discharge, nose bleeding, nose congestion, nose pain, photophobia, tearing, throat pain, throat swelling, voice changes, others Respiratory: reports: cough; denies: hemoptysis, orthopnea, SOB at rest, shortness of breath, SOB with excertion, stridor, wheezing, others Cardiovascular: reports: chest pain; denies: dizzy spells, diaphoresis, Dyspnea on exertion, edema, irregular heart beat, left arm pain, lightheadedness, palpitations, PND, syncope, others Gastrointestinal: denies: abdomen distended, abdominal pain, blood streaked bowels, constipated, diarrhea, dysphagia, difficulty swallowing, hematemesis, melena, nausea, poor appetite, poor fluid intake, rectal bleeding, rectal pain, vomiting, others Genitourinary: denies: burning, dysuria, flank pain, frequency, hematuria, incontinence, penile discharge, penile sore, pain, testicle pain, testicle swelling, urgency, others Neurological: denies: dizziness, fainting, headache, left sided numbness, left sided weakness, numbness, paresthesia, pre-existing deficit, right sided numbness, right sided weakness, seizure, speech problems, tingling, tremors, weakness, others Musculoskeletal: reports: back pain; denies: gout, joint pain, joint swelling, muscle pain, muscle stiffness, neck pain, others Integumetry: denies: bruises, change in color, change in hair/nails, dryness, laceration, lesions, lumps, rash, wounds, others Allergic/Immunocompromised: denies: Difficulty Healing, Frequent Infections, Hives, Itching, others Hematologic/Lymphatic: denies: anemia, blood clots, easy bleeding, easy bruising, swollen glands, others Endocrine: denies: excessive hunger, excessive sweating, excessive thirst, excessive urination, flushing, intolerance to cold, intolerance to heat, unexplained weight gain, unexplained weight loss, others Psychiatric: denies: anxiety, bipolar disorder, depression, hopeless, panic disorder, schizophrenia, sleepless, suicidal, others All Other Systems: Reviewed and Negative Physical Exam General Appearance: Mild Distress, Normal, Obese HEENT: Normal ENT Inspection, Pharynx Normal, TMs Normal Neck: Full Range of Motion, Non-Tender, Normal, Normal Inspection Respiratory: Chest Non-Tender, No Accessory Muscle Use, No Respiratory Distress, Normal Breath Sounds, Rhonchi Cardiovascular: No Edema, No JVD, No Murmur, No Gallop, Normal Peripheral Pulses, Regular Rate/Rhythm Breast Exam: Deferred Gastrointestinal: No Organomegaly, Non Tender, No Pulsatile Mass, Normal Bowel Sounds, Soft Genitalia: Deferred Pelvic: Deferred Rectal: Deferred Extremities: No calf tenderness, Normal capillary refill, Normal inspection, Normal range of motion, Non-tender, No pedal edema Musculoskeletal : Apperance: Normal Neurologic: Alert, No Motor Deficits, Normal Affect, Normal Mood, No Sensory Deficits Cerebellar Function: Normal Reflexes: Normal Skin: Dry, Normal Color, Warm Lymphatic: No Adenopathy Was a procedure done? Was a procedure done?: No CP Differential Dx Differential Diagnosis: Angina, Anxiety / Panic Attack, Digoxin Toxicity, Electrolyte Disorder, Heart Failure, Hyperthyroidism, Pulmonary Embolus, Renal Failure Differential Diagnosis: CHF, HTN Essential, Medical NonCompliance Differential Diagnosis: Angina, Chest Wall Pain, Cholelithiasis, Gastritis, Pericarditis, Pneumonia, Pneumothorax, Pulmonary Embolus X-Ray, Labs, Meds, VS Vital Signs Date Time Temp Pulse Resp B/P (MAP) Pulse Ox O2 Delivery O2 Flow Rate FiO2 09/05/24 23:29 68 09/05/24 22:38 98.5 74 18 134/54 (80) 94 98.5 09/05/24 22:21 74 Lab Test 09/05/24 22:40 Range/Units White Blood Count 5.7 4.4-10.8 10^3/uL Red Blood Count 3.73 L 4.5-5.90 10^6/uL Hemoglobin 10.7 L 13.5-17.5 g/dL Hematocrit 32.9 L 41.0-53.0 % Mean Corpuscular Volume 88.2 80.0-100.0 fL Mean Corpuscular Hemoglobin 28.6 28.0-32.0 pg Mean Corpuscular Hemoglobin Concent 32.4 32.0-36.0 g/dL Red Cell Distribution Width 16.8 H 11.8-14.3 % Platelet Count 186 140-450 10^3/uL Mean Platelet Volume 8.2 6.9-10.8 fL Neutrophils (%) (Auto) 58.2 37.0-80.0 % Lymphocytes (%) (Auto) 28.5 10.0-50.0 % Monocytes (%) (Auto) 9.6 0.0-12.0 % Eosinophils (%) (Auto) 3.3 0.0-7.0 % Basophils (%) (Auto) 0.4 0.0-2.0 % Neutrophils # (Auto) 3.3 1.6-8.6 10 ^3/uL Lymphocytes # (Auto) 1.6 0.4-5.4 10 ^3/uL Monocytes # (Auto) 0.5 0-1.3 10 ^3/uL Eosinophils # (Auto) 0.2 0-0.8 10 ^3/uL Basophils # (Auto) 0 0-0.2 10 ^3/uL Nucleated Red Blood Cells 0.1 % Prothrombin Time 11.1 9.3-11.8 sec Prothrombin Time INR 1.05 0.9-1.15 Activated Partial Thromboplast Time 28.8 24.5-34.5 SEC Sodium Level 141 136-145 mmol/L Potassium Level 4.1 3.5-5.1 mmol/L Chloride Level 106 98-107 mmol/L Carbon Dioxide Level 28 20-31 mmol/L Anion Gap 7 5-15 Blood Urea Nitrogen 11 9-23 mg/dL Creatinine 0.92 0.700-1.30 mg/dL Glomerular Filtration Rate Calc 89 >90 mL/min BUN/Creatinine Ratio 12.0 10.0-20.0 Serum Glucose 82 74-106 mg/dL Lactic Acid Level 0.7 0.4-2.0 mmol/L Calcium Level 9.3 8.7-10.4 mg/dL Total Bilirubin 0.5 0.2-1.0 mg/dL Aspartate Amino Transferase (AST) 17 13-40 U/L Alanine Aminotransferase (ALT) < 9 7-40 U/L Alkaline Phosphatase 53 46-116 U/L Troponin I High Sensitivity 38 </=54 ng/L B-Type Natriuretic Peptide 69.16 0-100 pg/mL Total Protein 6.9 5.7-8.2 g/dL Albumin 3.3 3.2-4.8 g/dL Time of 1ST Reevaluation: 23:00 Reevaluation 1ST: Unchanged Patient Education/Counseling: Diagnosis, Treatment, Need For Follow Up Family Education/Counseling: No Family Present SEPSIS Sepsis Screen Physician Orders Electrocardigram (09/05/24 23:20) Electrocardigram (09/06/24 01:20) Troponin-I Hs (09/06/24 00:00) Troponin-I Hs (09/06/24 03:00) Troponin-I Hs (09/06/24 06:00) Blood Culture (09/05/24 22:29) Chest Portable (09/05/24 22:29) Troponin-I Hs (09/06/24 01:29) Aspirin Tablet (09/06/24 00:15) Vital Signs Date Time Temp Pulse Resp B/P (MAP) Pulse Ox O2 Delivery O2 Flow Rate FiO2 09/05/24 23:29 68 09/05/24 22:38 98.5 74 18 134/54 (80) 94 98.5 09/05/24 22:21 74 Laboratory Tests Test 09/05/24 22:40 Lactic Acid Level 0.7 mmol/L (0.4-2.0) White Blood Count 5.7 10^3/uL (4.4-10.8) Departure 1 Departure Time of Disposition: 00:05 Impression: Primary Impression: ACS (acute coronary syndrome) Additional Impressions: Pneumonitis Respiratory failure with hypoxia Disposition: 09 ADMITTED INPATIENT Admit to: Tele Condition: Guarded Discharged With: Self Comments Left-Sided Chest Pain in 69-Year-Old Male with Multiple Comorbidities Chief Complaint: Left-sided parasternal chest pain radiating to back History of Present Illness: Patient is a 69-year-old male with multiple comorbidities including morbid obesity, congestive heart failure (CHF), chronic obstructive pulmonary disease (COPD), hypertension, hyperlipidemia, and history of cerebrovascular accident (CVA). He presents to the emergency department with left-sided parasternal chest pain of 8 hours duration that radiates to his back. The patient reports having a mild cough. He uses home oxygen and is currently on supplemental oxygen at 2 liters per minute via nasal cannula. Review of Systems: Cardiovascular: Positive for left-sided parasternal chest pain radiating to back. Respiratory: Positive for mild cough, requires home oxygen. Constitutional: No fever reported. All other systems: Not specifically addressed in the available information. 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 Past Medical History: Morbid obesity Congestive heart failure (CHF) Chronic obstructive pulmonary disease (COPD) Hypertension Hyperlipidemia Cerebrovascular accident (CVA) Physical Exam: General: Patient is morbidly obese Respiratory: Mild cough noted, on supplemental oxygen at 2L/min via nasal cannula Other systems: Not specifically addressed in the available information Lab Results: Initial troponin: 38 (normal) BNP: 69 (normal) Imaging and Other Relevant Results: Chest X-ray: Shows interstitial markings that may represent pneumonitis Medical Decision Making: Summary Statement: 69-year-old male with multiple comorbidities including CHF, COPD, and prior CVA presenting with left-sided parasternal chest pain radiating to back, mild cough, and requiring supplemental oxygen. Initial cardiac biomarkers are normal, but chest imaging suggests pneumonitis. Problem List: 1. Intermediate coronary syndrome 2. Pneumonitis 3. Respiratory failure with hypoxia 4. Morbid obesity 5. CHF 6. COPD 7. Hypertension 8. Hyperlipidemia 9. History of CVA Differential Diagnosis: Acute coronary syndrome, pneumonia, COPD exacerbation, CHF exacerbation, pulmonary embolism, aortic dissection, musculoskeletal chest pain, gastroesophageal reflux disease ED Course: Patient was administered baby aspirin for possible cardiac etiology. Given findings on chest X-ray and respiratory symptoms, IV Rocephin and azithromycin were administered to treat suspected pneumonitis. Patient maintained on supplemental oxygen. Decision made to admit patient for further management. Assessment and Plan: 1. Intermediate Coronary Syndrome: - Initial troponin normal at 38 - Administered baby aspirin in ED - Admit for serial cardiac enzymes and continuous cardiac monitoring - Consider cardiology consultation if troponin becomes elevated - Further cardiac workup as indicated during admission 2. Pneumonitis: - Chest X-ray showing interstitial markings - Started on IV Rocephin and azithromycin in ED - Continue antibiotics during admission - Monitor respiratory status 3. Respiratory Failure with Hypoxia: - Continue supplemental oxygen to maintain O2 saturation >92% - Consider arterial blood gas if respiratory status worsens - Pulmonary consultation if no improvement with current management 4. Chronic Medical Conditions (CHF, COPD, HTN, Hyperlipidemia, History of CVA): - Continue home medications as appropriate - Monitor for exacerbations during admission Disposition: Admit to medical floor for management of intermediate coronary syndrome, pneumonitis, and respiratory failure with hypoxia. 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 Some sections contain assumed information where specific details were not provided. Billing Information: ICD-10: I20.9 - Angina pectoris, unspecified (Intermediate coronary syndrome) ICD-10: J18.9 - Pneumonia, unspecified organism (Pneumonitis) ICD-10: J96.01 - Acute respiratory failure with hypoxia ICD-10: E66.01 - Morbid (severe) obesity due to excess calories ICD-10: I50.9 - Heart failure, unspecified ICD-10: J44.9 - Chronic obstructive pulmonary disease, unspecified ICD-10: I10 - Essential (primary) hypertension ICD-10: E78.5 - Hyperlipidemia, unspecified ICD-10: I69.30 - Unspecified sequelae of cerebral infarction Critical Care Note Critical Care Time?: Yes (35 min-critical care time only) Critical care comment: Total critical care time: Approximately 36 minutes Due to a high probability of clinically significant, life threatening deterioration, the patient required my highest level of preparedness to intervene emergently and I personally spent this critical care time directly and personally managing the patient. This critical care time included obtaining a history; examining the patient; pulse oximetry; ordering and review of studies; arranging urgent treatment with development of a management plan; evaluation of patient's response to treatment; frequent reassessment; and, discussions with other providers. This critical care time was performed to assess and manage the high probability of imminent, life-threatening deterioration that could result in multi-organ failure. It was exclusive of separately billable procedures and treating other patients. Stability Stability form required: No Heart Score Heart Score: Heart Score Response (Comments) Value History Moderate Suspicious 1 EKG Repolarization Disturb 1 Age >65 2 Risk Factors >3 or Hx ASHD 2 Troponin Normal limit 0 Total 6 I personally scribed for NABOR KING MD ([email or web address]) on 09/05/24 at 22:35. Electronically submitted by Izaiah Cobian ([email or web address]). NABOR KING MD Sep 05, 2024 22:35
[2024-09-05 22:51] LABS: Hematocrit 32.9 % (41.0-53.0); Hemoglobin 10.7 g/dL (13.5-17.5); Mean Corpuscular Hemoglobin 28.6 pg (28.0-32.0); Mean Corpuscular Volume 88.2 fL (80.0-100.0); Nucleated Red Blood Cells % 0.1 %
[2024-09-05 23:06] LABS: INR 1.05 (0.9-1.15); Partial Thromboplastin Time 28.8 SEC (24.5-34.5); Prothrombin Time 11.1 sec (9.3-11.8)
[2024-09-05 23:08] LABS: Albumin 3.3 g/dL (3.2-4.8); Alkaline Phosphatase 53 U/L (46-116); Anion Gap 7 (5-15); BUN/Creatinine Ratio 12.0 (10.0-20.0); Blood Urea Nitrogen 11 mg/dL (9-23); Calcium 9.3 mg/dL (8.7-10.4); Carbon Dioxide 28 mmol/L (20-31); Chloride 106 mmol/L (98-107); Glucose 82 mg/dL (74-106); Potassium 4.1 mmol/L (3.5-5.1); Sodium 141 mmol/L (136-145); Total Protein 6.9 g/dL (5.7-8.2)
[2024-09-05 23:09] LABS: Bilirubin, Total 0.5 mg/dL (0.2-1.0)
[2024-09-05 23:11] LABS: Alanine Aminotransferase < 9 U/L (7-40)
[2024-09-06] VITALS: O2SAT 95
--- NOTE | 2024-09-06 00:10 | ECG ---
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
[2024-09-06] MEDS ORDERED: DEXTROSE (50%) 50ML SYRG IV PRN (01:00)
[2024-09-06] MEDS ORDERED: DOCUSATE SOD 100 MG CAP PO PRN (01:00)
[2024-09-06] MEDS ORDERED: HYDROcodone-ACET 5/325MG TAB PO PRN (01:00)
[2024-09-06] MEDS ORDERED: NITROGLYCERIN 0.4 MG SL TAB SL PRN (01:00)
[2024-09-06] MEDS ORDERED: ACETAMINOPHEN 325 MG TAB PO PRN (01:00)
[2024-09-06] MEDS ORDERED: ONDANSETRON HCL 4 MG/2 ML VIAL IV PRN (01:00)
[2024-09-06] MEDS: OXYCODONE W/ ACETAMINOPHEN 5/325MG TABLET PO ONE (01:06)
--- NOTE | 2024-09-06 01:10 | DVHHP2 ---
History of Present Illness Reason for Visit: Acute coronary syndrome History of Present Illness The patient is a 69-year-old male morbidly obese with multiple past medical history including asthma, Coronary artery disease, CHF, COPD, depression, GERD, and hypertension who presented to [facility] ED with complaint of chest pain patient reports he has been experiencing left-sided chest pain for the past 1 day, radiating to his back, associated nonproductive cough, shortness of breaths, getting worse that prompted this visit. Patient was seen and evaluated in the ED, laboratory data shows WBC 5.7, hemoglobin 10.7, hematocrit 32.9, platelets 186, sodium 141, potassium 4.1, BUN 11, creatinine 0.92, glucose 82, calcium 9.3, troponin 38, BNP 69.16, blood pressure 134/54, heart rate 68, temperature 98.5 F, O2 saturation 95% on oxygen. Chest x-ray results pending. Please see medication orders section in the computer. On my assessment, patient denied chest pain this moment, no dizziness, no headache, currently on oxygen, no nausea, no vomiting, no fever, no chills. Patient was admitted for further evaluation and medical management. Past Medical History Angina, Anxiety, Asthma, CAD, CHF, CKF, COPD, CVA, Depression, DM, GERD, High Lipids, HTN, Liver, RI, MRSA, TIA, UTI'S Past Surgical History Appendectomy, Cholecystectomy, PTCA, Thyroidectomy Family History Reviewed, noncontributory to the management of this case. Past Social History The patient lives at home, denies smoking, alcohol or illicit drugs abuse. Review of Systems Constitutional: Yes: Weakness; No: Fever, Chills, Sweats, Malaise, Other Eyes: No: Pain, Vision change, Conjunctivae inflammation, Eyelid inflammation, Other, Redness ENT: No: Ear pain, Ear discharge, Nose pain, Nose discharge, Nose congestion, Mouth pain, Mouth swelling, Throat pain, Throat swelling, Other Respiratory: Cough, Shortness of breath; No: Dry, SOB with excertion, Wheezing, Hemoptysis, Pleuritic Pain, Sputum, Wheezing, Other Cardiovascular: Chest Pain; No: Palpitations, Orthopnea, Paroxysmal Noc. Dyspnea, Edema, Lt Headedness, Other Gastrointestinal: No: Nausea, Vomiting, Abdominal Pain, Diarrhea, Constipation, Melena, Hematochezia, Other Genitourinary: No Dysuria, No Frequency, No Incontinence, No Hematuria, No Retention, No Other Musculoskeletal: No: other, neck pain, shoulder pain, arm pain, back pain, hand pain, leg pain, foot pain Skin: No: Rash, Lesions, Jaundice, Bruising, Other Neurological: No: Weakness, Numbness, Incoordination, Change in speech, Confusion, Seizures, Other Allergies: Coded Allergies: NO KNOWN ALLERGIES (Unverified , 10/04/22) Exam Vital Signs Vital Signs Date Time Temp Pulse Resp B/P (MAP) Pulse Ox O2 Delivery O2 Flow Rate FiO2 09/06/24 00:00 95 Nasal Cannula* 2 28 09/05/24 23:29 68 09/05/24 22:38 98.5 18 134/54 (80) 98.5 General Appearance: Alert, Oriented X3, Cooperative, No acute distress HEENT: Atraumatic, PERRLA, EOMI, Mucous membr. moist/pink Respiratory: Normal air movement Cardiovascular: Regular rate, Normal S1, Normal S2, No murmurs Abdominal: Normal bowel sounds, Soft, No tenderness, No hepatospenomegaly, No masses Extremities: No clubbing, No cyanosis, No edema, Normal pulses, No tenderness/swelling Skin: No rashes, No breakdown, No significant lesion Neuro: Normal speech, Normal tone, Sensation intact, Cranial nerves 3-12 NL, Reflexes 2+, Other (Generalized weakness) Psych/Mental Status: Mental status NL, Mood NL Labs/Xrays Labs Test 09/06/24 00:19 09/05/24 22:40 Range/Units Troponin I High Sensitivity 34 </=54 ng/L White Blood Count 5.7 4.4-10.8 10^3/uL Red Blood Count 3.73 L 4.5-5.90 10^6/uL Hemoglobin 10.7 L 13.5-17.5 g/dL Hematocrit 32.9 L 41.0-53.0 % Mean Corpuscular Volume 88.2 80.0-100.0 fL Mean Corpuscular Hemoglobin 28.6 28.0-32.0 pg Mean Corpuscular Hemoglobin Concent 32.4 32.0-36.0 g/dL Red Cell Distribution Width 16.8 H 11.8-14.3 % Platelet Count 186 140-450 10^3/uL Mean Platelet Volume 8.2 6.9-10.8 fL Neutrophils (%) (Auto) 58.2 37.0-80.0 % Lymphocytes (%) (Auto) 28.5 10.0-50.0 % Monocytes (%) (Auto) 9.6 0.0-12.0 % Eosinophils (%) (Auto) 3.3 0.0-7.0 % Basophils (%) (Auto) 0.4 0.0-2.0 % Neutrophils # (Auto) 3.3 1.6-8.6 10 ^3/uL Lymphocytes # (Auto) 1.6 0.4-5.4 10 ^3/uL Monocytes # (Auto) 0.5 0-1.3 10 ^3/uL Eosinophils # (Auto) 0.2 0-0.8 10 ^3/uL Basophils # (Auto) 0 0-0.2 10 ^3/uL Nucleated Red Blood Cells 0.1 % Prothrombin Time 11.1 9.3-11.8 sec Prothrombin Time INR 1.05 0.9-1.15 Activated Partial Thromboplast Time 28.8 24.5-34.5 SEC Sodium Level 141 136-145 mmol/L Potassium Level 4.1 3.5-5.1 mmol/L Chloride Level 106 98-107 mmol/L Carbon Dioxide Level 28 20-31 mmol/L Anion Gap 7 5-15 Blood Urea Nitrogen 11 9-23 mg/dL Creatinine 0.92 0.700-1.30 mg/dL Glomerular Filtration Rate Calc 89 >90 mL/min BUN/Creatinine Ratio 12.0 10.0-20.0 Serum Glucose 82 74-106 mg/dL Lactic Acid Level 0.7 0.4-2.0 mmol/L Calcium Level 9.3 8.7-10.4 mg/dL Total Bilirubin 0.5 0.2-1.0 mg/dL Aspartate Amino Transferase (AST) 17 13-40 U/L Alanine Aminotransferase (ALT) < 9 7-40 U/L Alkaline Phosphatase 53 46-116 U/L B-Type Natriuretic Peptide 69.16 0-100 pg/mL Total Protein 6.9 5.7-8.2 g/dL Albumin 3.3 3.2-4.8 g/dL Chest x-ray results pending SEPSIS Sepsis Screen Date sepsis recognized/suspect: Sep 05, 2024 Time Sepsis recognized/suspect: 2224 Recent Procedure: No On Antibiotic Therapy: No Respiratory Rate >20: No Heart Rate >90: No Temp<36 C (96.8 F) or >38.3 C: No SBP <90 or MAP <65 mmHG: No New Acute Mental Status Change: No Is the patient on CPAP, BIPAP,: No Physician Orders Electrocardigram (09/06/24 01:20) Blood Culture (09/05/24 22:29) Chest Portable (09/05/24 22:29) Troponin-I Hs (09/06/24 01:29) Mrsa Screen (09/06/24 00:04) Azithromycin 500mg/ 250ml (Zithromax 50 (09/06/24 00:15) Complete Blood Count (09/06/24 04:00) Comprehensive Metabolic Panel (09/06/24 04:00) Aspirin Tablet (09/06/24 10:00) Atorvastatin (Lipitor) (09/06/24 22:00) Trazodone Hcl (Desyrel) (09/06/24 22:00) Ceftriaxone Ivpb Rocephin (09/06/24 09:00) Azithromycin 500mg/ 250ml (Zithromax 50 (09/06/24 10:00) Midodrine Tablet (Proamatine Tablet) (09/06/24 06:00) Clopidogrel Bisulfate (Plavix) (09/06/24 10:00) Consistent Carb(Ccho)Diabetes (09/06/24 Breakfast) Glucose Blood (Accu-Chek Comfort Curve T (09/06/24 07:00) Mild Sliding Scale (09/06/24 07:00) Dextrose 50% Syringe (09/06/24 01:00) Admit (09/06/24 00:52) Allergies (09/06/24 00:52) Code Status (09/06/24 00:52) Sodium Chloride Lock (Saline Lock Ns) (09/06/24 06:00) Oxygen Per Hour (09/06/24 00:52) Hydrocodone-Acet 5/325mg Tab ([place] 5/32 (09/06/24 01:00) Ondansetron Hcl (Zofran) (09/06/24 01:00) Docusate Sodium Capsule (Colace Capsule) (09/06/24 01:00) Complete Blood Count (09/07/24 04:00) Comprehensive Metabolic Panel (09/07/24 04:00) Condition: Serious (09/06/24 00:52) Acetaminophen Tablet (Tylenol Tablet) (09/06/24 01:00) Bedrest With Bathroom Privileg (09/06/24 00:52) Sequential Compression Device (09/06/24 ) Nitroglycerin Sublingual (Ntrostat Subli (09/06/24 01:00) Morphine Sulfate Injection (09/06/24 01:00) Stat Ekg For Chest Pain (09/06/24 00:52) Notify Md Of Changes From Base (09/06/24 00:52) Dog Day Care Attendant For 24 Hours (09/06/24 00:52) Emergency Dysrhythmia Protocol (09/06/24 00:52) Rhythm Strips Once Every Shift (09/06/24 00:52) Oxygen By Nasal Cannula (09/06/24 00:52) Vital Signs Date Time Temp Pulse Resp B/P (MAP) Pulse Ox O2 Delivery O2 Flow Rate FiO2 09/06/24 00:00 95 Nasal Cannula* 2 28 09/05/24 23:29 68 09/05/24 22:38 98.5 74 18 134/54 (80) 94 98.5 09/05/24 22:21 74 Laboratory Tests Test 09/05/24 22:40 Lactic Acid Level 0.7 mmol/L (0.4-2.0) White Blood Count 5.7 10^3/uL (4.4-10.8) Medications Medications Dose Ordered Sig/Yvette Route Start Time Stop Time Status Last Admin Dose Admin Aspirin 81 mg ONCE ONCE PO 09/06/24 00:15 09/06/24 00:16 DC 09/06/24 01:06 81 MG Oxycodone/ Acetaminophen 2 tab ONCE ONCE PO 09/06/24 00:45 09/06/24 00:46 DC 09/06/24 01:06 2 TAB Assessment/Plan Assessment/Plan ACS (acute coronary syndrome) Pneumonitis Respiratory failure with hypoxia Generalized weakness COPD with acute exacerbation Plan 1. Admit to telemetry unit 2. Breathing treatment 3. Pain control management 4. IV antibiotic management 5. Management of fluids and electrolytes 6. Consultation for hospitalist 7. Diagnostic test chest x-ray 8. DVT prophylaxis-on aspirin 9. Repeat labs CBC, CMP in a.m. 10. Home medication reviewed and reconciled 11. Continue with current medical management 12. Treatment plan discussed with patient and RN. Patient verbalized understanding. Plan discussed with: Patient, Other (RN) My Orders Orders - LELO NIXON DNP Procedure Category Date Status Time Complete Blood Count LAB 09/06/24 Verified 04:00 Comprehensive LAB 09/06/24 Verified Metabolic Panel 04:00 Aspirin Tablet PHA 09/06/24 Verified 10:00 Atorvastatin (Lipitor) PHA 09/06/24 Verified 22:00 Trazodone Hcl PHA 09/06/24 Verified (Desyrel) 22:00 Ceftriaxone Ivpb PHA 09/06/24 Verified Rocephin 09:00 Azithromycin 500mg/ PHA 09/06/24 Verified 250ml (Zithromax 50 10:00 Midodrine Tablet PHA 09/06/24 Verified (Proamatine Tablet) 06:00 Clopidogrel Bisulfate PHA 09/06/24 Verified (Plavix) 10:00 Consistent DIET 09/06/24 Verified Carb(Ccho)Diabetes Breakfast Glucose Blood PHA 09/06/24 Verified (Accu-Chek Comfort 07:00 Mild Sliding Scale PHA 09/06/24 Verified 07:00 Dextrose 50% Syringe PHA 09/06/24 Verified 01:00 Admit ADMIT 09/06/24 Verified 00:52 Allergies ELLIE 09/06/24 Verified 00:52 Code Status CODE 09/06/24 Verified 00:52 Sodium Chloride Lock PHA 09/06/24 Verified (Saline Lock Ns) 06:00 Oxygen Per Hour RT 09/06/24 Verified 00:52 Hydrocodone-Acet PHA 09/06/24 Verified 5/325mg Tab ([place] 01:00 Ondansetron Hcl PHA 09/06/24 Verified (Zofran) 01:00 Docusate Sodium PHA 09/06/24 Verified Capsule (Colace 01:00 Complete Blood Count LAB 09/07/24 Verified 04:00 Comprehensive LAB 09/07/24 Verified Metabolic Panel 04:00 Condition: Serious ELLIE 09/06/24 Verified 00:52 Acetaminophen Tablet PHA 09/06/24 Verified (Tylenol Tablet) 01:00 Bedrest With Bathroom ELLIE 09/06/24 Verified Privileg 00:52 Sequential ELLIE 09/06/24 Verified Compression Device Nitroglycerin PHA 09/06/24 Verified Sublingual (Ntrostat 01:00 Morphine Sulfate [facility] 09/06/24 Verified Injection 01:00 Stat Ekg For Chest [facility] 09/06/24 Verified Pain 00:52 Notify Md Of Changes [facility] 09/06/24 Verified From Base 00:52 Dog Day Care Attendant For [facility] 09/06/24 Verified 24 Hours 00:52 Emergency Dysrhythmia [facility] 09/06/24 Verified Protocol 00:52 Rhythm Strips Once [facility] 09/06/24 Verified Every Shift 00:52 Oxygen By Nasal 09/06/24 Verified Cannula 00:52 Problem List: (1) ACS (acute coronary syndrome) (2) Pneumonitis (3) Respiratory failure with hypoxia (4) General weakness (5) COPD with acute exacerbation Date of Service: Sep 06, 2024 Billing Provider: LELO NIXON DNP Common Visit Codes: [id number] INP/OBS CARE (HIGH) LELO NIXON DNP Sep 06, 2024 01:10
[2024-09-06 02:35] LABS: Hematocrit 31.0 % (41.0-53.0); Hemoglobin 10.1 g/dL (13.5-17.5); Mean Corpuscular Hemoglobin 28.8 pg (28.0-32.0); Mean Corpuscular Volume 88.1 fL (80.0-100.0); Nucleated Red Blood Cells % 0.0 %
[2024-09-06 02:49] LABS: Alanine Aminotransferase 11 U/L (7-40); Alkaline Phosphatase 52 U/L (46-116); Anion Gap 7 (5-15); BUN/Creatinine Ratio 14.6 (10.0-20.0); Blood Urea Nitrogen 13 mg/dL (9-23); Calcium 8.9 mg/dL (8.7-10.4); Carbon Dioxide 27 mmol/L (20-31); Chloride 107 mmol/L (98-107); Glucose 81 mg/dL (74-106); Potassium 4.4 mmol/L (3.5-5.1); Sodium 141 mmol/L (136-145); Total Protein 6.3 g/dL (5.7-8.2)
[2024-09-06 02:50] LABS: Albumin 3.1 g/dL (3.2-4.8); Bilirubin, Total 0.4 mg/dL (0.2-1.0)
[2024-09-06] MEDS: cefTRIAXone 1GM/50ML D5W 50 ML IV ONE (02:51)
[2024-09-06] MEDS: MORPHINE SULFATE INJ 2 MG/ml SYRG IV PRN (04:15)
--- NOTE | 2024-09-06 04:30 | DVH ---
CHEST RADIOGRAPH Indication: chest pain Technique: Single frontal view of the chest was obtained COMPARISON: XY CHEST XRAY 1 VIEW on DOS: 08/28/24, XY CHEST XRAY 1 VIEW on DOS: 05/30/24, XY CHEST PORT ABLE on DOS: 05/24/24, XY CHEST PORTABLE on DOS: 05/05/24, XY CHEST PORTABLE on DOS: 02/24/24 FINDINGS: The patient's hands are covering the lung torres. Nondiagnostic exam. Please repeat IMPRESSION: 1. Nondiagnostic exam. Patient's hands are covering the lung torres. Please repeat
[2024-09-06] MEDS: SODIUM CHLOR 0.9% PF (SALINE LOCK) 10ML VIAL/SYR IV SCH (06:11)
[2024-09-06] MEDS: MIDODRINE HCL 10 MG TAB PO SCH (06:20)
[2024-09-06] MEDS: InsuLIN REG 1unit/0.01ml Soln (100units/ml) SC SCH (06:41)
[2024-09-06] MEDS: ACCU-CHEK COMFORT CURVE STRIP VI SCH (06:41)
[2024-09-06 08:10] VITALS: PULSE 62; RESP 18; O2SAT 95
[2024-09-06] MEDS: AZITHROMYCIN 500MG/ 250ML 250 ML IV ONE (08:10)
[2024-09-06 09:00] VITALS: BP 107/44; PULSE 63; RESP 18; TEMP 98; O2SAT 95
[2024-09-06] MEDS: cefTRIAXone 1GM/50ML D5W 50 ML IV SCH (09:00)
[2024-09-06] MEDS: CLOPIDOGREL BISULFATE 75 MG TAB PO SCH (09:01)
[2024-09-06] MEDS: AZITHROMYCIN 500MG/ 250ML 250 ML IV SCH (10:07)
[2024-09-06 23:28] VITALS: PULSE 78; RESP 18; O2SAT 98
[2024-09-06 23:29] VITALS: BP 150/82; PULSE 59; RESP 18; TEMP 99; O2SAT 97
[2024-09-06 23:30] VITALS: BP 150/82; PULSE 59; RESP 19; TEMP 99; O2SAT 97
[2024-09-06] MEDS: ATORVASTATIN 20 MG TAB PO SCH (23:58)
[2024-09-07] VITALS (7 sets, daily range): BP systolic 133–162; BP diastolic 65–86; PULSE 53–66; RESP 15–22; TEMP 97.7–98; O2SAT 95–98
[2024-09-07 06:52] LABS: Hematocrit 34.4 % (41.0-53.0); Hemoglobin 11.4 g/dL (13.5-17.5); Mean Corpuscular Hemoglobin 29.4 pg (28.0-32.0); Mean Corpuscular Volume 88.6 fL (80.0-100.0); Nucleated Red Blood Cells % 0.1 %
[2024-09-07 07:13] LABS: Alanine Aminotransferase 10 U/L (7-40); Alkaline Phosphatase 57 U/L (46-116); Anion Gap 5 (5-15); BUN/Creatinine Ratio 12.0 (10.0-20.0); Blood Urea Nitrogen 12 mg/dL (9-23); Calcium 10.2 mg/dL (8.7-10.4); Chloride 105 mmol/L (98-107); Glucose 86 mg/dL (74-106); Potassium 4.3 mmol/L (3.5-5.1); Sodium 141 mmol/L (136-145); Total Protein 7.0 g/dL (5.7-8.2)
[2024-09-07 07:14] LABS: Albumin 3.4 g/dL (3.2-4.8); Bilirubin, Total 0.3 mg/dL (0.2-1.0)
[2024-09-07 07:34] LABS: Carbon Dioxide 31 mmol/L (20-31)
--- NOTE | 2024-09-07 15:01 | DVHPN2 ---
Subjective The patient is seen and examined at bedside. Complain of chest pain. Reviewed: Care Plan, H&P, Labs, Medications, Previous Orders, Radiology Changes from previous H/P or p: No Changes Eyes: No Pain, No Vision change, No Conjunctivae inflammation, No Eyelid inflammation, No Other, No Redness ENT: No Ear pain, No Ear discharge, No Nose pain, No Nose discharge, No Nose congestion, No Mouth pain, No Mouth swelling, No Throat pain, No Throat swelling, No Other Cardiovascular: Chest Pain; No Palpitations, No Orthopnea, No Paroxysmal Noc. Dyspnea, No Edema, No Lt Headedness, No Other Respiratory: Cough; No Dry; Shortness of breath; No SOB with excertion, No Wheezing, No Hemoptysis, No Pleuritic Pain, No Sputum, No Other Gastrointestinal: No Nausea, No Vomiting, No Abdominal Pain, No Diarrhea, No Constipation, No Melena, No Hematochezia, No Other Genitourinary: No Dysuria, No Frequency, No Incontinence, No Hematuria, No Retention, No Other Musculoskeletal: No other, No neck pain, No shoulder pain, No arm pain, No back pain, No hand pain, No leg pain, No foot pain Skin: No Rash, No Lesions, No Jaundice, No Bruising, No Other Objective Vitals Vital Signs Date Time Temp Pulse Resp B/P (MAP) Pulse Ox O2 Delivery O2 Flow Rate FiO2 09/07/24 12:32 97.8 59 18 158/78 (104) 95 97.8 09/07/24 08:00 Oxymizer 2 N/A Intake/Output Intake and Output 09/07/24 07:00 Intake Total 300 ml Output Total 100 ml Balance 200 ml Intake Oral 0 ml IV Total 300 ml Output Urine Total 100 ml General Appearance: Alert, Oriented X3, Cooperative HEENT: Atraumatic, PERRLA, EOMI, Mucous membr. moist/pink Neck: Supple Lungs: Clear to auscultation Cardiovascular: Regular rate, Normal S1, Normal S2, No murmurs, Gallops, Rubs Abdomen: Normal bowel sounds, Soft Neuro: Cranial nerves 3-12 NL Psych/Mental Status: Mental status NL Medications Current Medications Medications Dose Ordered Sig/Yvette Route Start Time Stop Time Status Last Admin Dose Admin Aspirin 81 mg DAILY PO 09/06/24 10:00 09/07/24 09:38 81 MG Atorvastatin Calcium 40 mg HS PO 09/06/24 22:00 09/06/24 23:58 40 MG Trazodone HCl 100 mg HS PO 09/06/24 22:00 09/06/24 23:59 100 MG Ceftriaxone Sodium 50 ml @ 100 mls/hr DAILY@09 IV 09/06/24 09:00 09/07/24 09:38 100 MLS/HR Azithromycin 250 ml @ 125 mls/hr DAILY IV 09/06/24 10:00 09/07/24 11:13 125 MLS/HR Midodrine 5 mg TID@0600,1200,1800 PO 09/06/24 06:00 09/07/24 05:32 5 MG Clopidogrel Bisulfate 75 mg DAILY PO 09/06/24 10:00 09/07/24 09:38 75 MG Diagnostic Test (Pha) 1 strip ACHS 09/06/24 07:00 09/07/24 11:38 1 STRIP Insulin Human Regular ACHS SC 09/06/24 07:00 Dextrose 50 ml UD PRN IV 09/06/24 01:00 Sodium Chloride 10 ml Q8HR IV 09/06/24 06:00 09/07/24 13:54 10 ML Acetaminophen/ Hydrocodone Bitart 1 tab Q4HP PRN PO 09/06/24 01:00 Ondansetron HCl 4 mg Q4HP PRN IV 09/06/24 01:00 Docusate Sodium 100 mg BIDPRN PRN PO 09/06/24 01:00 Acetaminophen 650 mg Q6HP PRN PO 09/06/24 01:00 Nitroglycerin 0.4 mg Q5MINP PRN SL 09/06/24 01:00 Morphine Sulfate 2 mg Q30M PRN IV 09/06/24 01:00 09/06/24 04:15 2 MG Laboratory Results Laboratory Tests 09/07/24 05:21 Chemistry Test 09/07/24 05:21 Albumin 3.4 g/dL (3.2-4.8) Calcium Level 10.2 mg/dL (8.7-10.4) Total Protein 7.0 g/dL (5.7-8.2) LFT Test 09/07/24 05:21 Alanine Aminotransferase (ALT) 10 U/L (7-40) Alkaline Phosphatase 57 U/L (46-116) Aspartate Amino Transferase (AST) 19 U/L (13-40) Total Bilirubin 0.3 mg/dL (0.2-1.0) Microbiology Microbiology Date/Time Source Procedure Growth Status 09/06/24 06:20 Nose MRSA Screen - Final Complete 09/05/24 22:39 Blood Blood Culture - Preliminary Resulted Labs and/or images reviewed: Labs reviewed by me Assessment/Plan Assessment/Plan Chest pain Pneumonia secondary to Gram-positive and Gram-negative pneumonia Respiratory failure with hypoxia Generalized weakness COPD with acute exacerbation Continuing current management. I will put in a cardiology consulted. Continuing with IV antibiotic Rocephin and Zithromax. Continuing with nebulizer. We will give Solu-Medrol 60 mg IV Q 8 hours. This medical document was created using an electronic medical record system with [employer] direct computerized dictation system. Although this document has been carefully reviewed, there may still be some phonetic and typographical errors. These areas are purely typographical due to imperfections of the software programs, and do not reflect any compromise in the patient's medical care. Plan discussed with: Patient My Orders Orders - ARON PERLA MD Procedure Category Date Status Time * Wound Consult CONS 09/07/24 Transmitted Date of Service: Sep 07, 2024 Billing Provider: ARON PERLA MD Common Visit Codes: [id number] INP/OBS CARE(HIGH) ARON PERLA MD Sep 07, 2024 15:01
--- NOTE | 2024-09-07 16:43 | DVHINCON2 ---
Date Seen: Sep 07, 2024 Referring Physician MD Brenda Reason for Consultation Chest pain History of Present Illness This is a 69-year-old male with a chief complaint of shortness of breath. The patient is a poor historian, complains of progressive shortness of breath associated with PND and lower extremity edema. He also complains of chest pain described as substernal, nonradiating, and non provoked. He underwent multiple 12 lead electrocardiogram revealing a sinus rhythm with a associated left anterior fascicular block and without evidence of acute ischemia. Serial troponin levels are negative. The patient has had multiple admissions to different hospitals within the area for chronic chest pain syndrome. He follows up in the outpatient setting with Dr. Montesinos. Significant past medical history includes HFpEF, coronary artery disease status post multiple PCIs and unspecified number of DESTINY, sick sinus syndrome status post micra leadless pacemaker implantation, hypertension, dyslipidemia, chronic kidney disease, cerebrovascular accident, chronic obstructive pulmonary disease, diabetes mellitus, obstructive sleep apnea, seizure disorder, thyroidectomy, chronic pain syndrome, morbid obesity. Past Medical History Past medical history reviewed. No other significant than mentioned above. Past Surgical History Multiple PTCAs with stent placement Tonsillectomy Family History: Alcoholism G8 MOTHER, Onset:Unknown Cancer G8 SISTER (uterine cancer) Cardiovascular disease G8 SISTER Cerebrovascular accident (CVA) G8 BROTHER Chronic obstructive pulmonary disease G8 SISTER Depression G8 SISTER Diabetes mellitus G8 SISTER G8 SISTER Family history: Cardiovascular disease Family history: Depression (situation) Family history: Hypertension Family history: Hypertension Glaucoma MATERNAL GPA Sepsis Stroke Stroke Family History Family history reviewed. Social History Denies the use of illicit drugs, alcohol, or tobacco use. Lives at home with sister. Allergies: Coded Allergies: NO KNOWN ALLERGIES (Unverified , 10/04/22) Home Meds Active Scripts Oxycodone W/ Acetaminophen (Percocet 5/325MG) 1 Tab Tb, 1 TAB PO QID, #40 TAB Prov:CYDNEY MCGARRY MD 09/01/24 Furosemide (Lasix) 40 Mg Tab, 40 MG PO BID for 30 Days, #60 TAB Prov:BK LAGUERRE MD 05/29/24 Prednisone (Prednisone) 20 Mg Tab, 40 MG PO DAILY for 5 Days, #5 MG Prov:BK LAGUERRE MD 05/29/24 Ranolazine (Ranexa) 500 Mg Tab, 500 MG PO BID for 30 Days, #60 TAB Prov:JUSTIN DUARTE MD 10/22/18 Reported Medications Oxycodone W/ Acetaminophen (Percocet 5/325MG) 1 Tab Tb, 2 TAB PO BIDPRN for CHRONIC PAIN, TAB 08/29/24 Budesonide-Formoterol Fumarate (Budesonide/Formoterol Fum 160-4.5 Mcg/Act) 1 Aer Aer, 2 PUFF IN BID for 30 Days, #10.2 02/26/24 Midodrine HCl (Midodrine Hydrochloride) 5 Mg Tab, 1 TAB PO TID for 30 Days, #90 02/26/24 Potassium Chloride (Potassium Chloride ER) 10 Meq Tab, 1 TAB PO BID for 30 Days, #60 02/26/24 Aspirin (Aspirin Regular Strength) 325 Mg Tab, 1 TAB PO DAILY for 30 Days, #30 02/26/24 Lactulose (Lactulose) 10 Gm/15 Ml Rachna, 15 ML PO BID PRN for 15 Days, #473 02/26/24 Atorvastatin Calcium (Lipitor) 80 Mg Tab, 1 TAB PO DAILY for 30 Days, #30 02/26/24 Levetiracetam (Levetiracetam) 750 Mg Tab, 1 TAB PO BID for 30 Days, #60 02/26/24 Lidocaine (Lidocaine Topical Pain Pa) 4 % Pad, 1 PATCH TOP DAILY 06/28/23 Gabapentin (Gabapentin) 800 Mg Tab, 1 TAB PO BID for 30 Days, #60 06/28/23 Ipratropium-Albuterol (COMBIVENT RESPIMAT) Respimat Aer, 1 PUFF INH QID 05/14/23 Methocarbamol (Methocarbamol) 500 Mg Tab, 1.5 TAB PO Q8HR PRN for 8 Days, #40 05/14/23 Dapagliflozin Propanediol (Farxiga) 10 Mg Tab, 1 TAB PO DAILY for 30 Days, #30 05/14/23 Beclomethasone Dipropionate (Qvar Redihaler) 80 Mcg/Act Aer, 1 PUFF INH BID for 30 Days, #10.6 02/27/23 Silver Sulfadiazine (Silver Sulfadiazine) 1 % Cre, 1 APPLIC TOP DAILY for 30 Days, #50 02/27/23 Oxybutynin Chloride (Ditropan Xl) 5 Mg Tab, 15 MG PO DAILY for 30 Days, #30 02/27/23 Trazodone Hcl (Trazodone Hcl) 100 Mg Tab, 4 TAB PO HS for 30 Days, #120 02/27/23 Clopidogrel Bisulfate (CLOPIDOGREL) 75 Mg Tab, 1 TAB PO DAILY for 30 Days, #30 02/07/23 Pantoprazole Sodium Sesquihydr (Pantoprazole Sodium) 40 Mg Tab, 1 TAB PO QAM 02/07/23 Bupropion Hcl (Bupropion Hcl) 75 Mg Tab, 2 TAB PO DAILY for 30 Days, #60 11/10/17 Home Meds Home medications reviewed. Current Medications Current Medications Medications (Trade) Dose Ordered Sig/Yvette Route PRN Reason Start Time Stop Time Status Last Admin Atorvastatin Calcium (Lipitor) 40 mg HS PO 09/06/24 22:00 09/06/24 23:58 Trazodone HCl (Desyrel) 100 mg HS PO 09/06/24 22:00 09/06/24 23:59 Review of Systems Constitutional: No symptom reported Ears, Nose, & Throat: No symptom reported Eyes: No symptom reported Neurological: No symptoms reported Pulmonary/Respiratory: SOB Cardiovascular: Chest pain Gastrointestinal: No symptom reported Genitourinary: No symptom reported Musculoskeletal: No symptom reported Skin: No symptom reported Psychiatric: No symptom reported Endocrine: No symptom reported Hemotologic/Lymphatic: No symptom reported Vital Signs Vital Signs Date Time Temp Pulse Resp B/P (MAP) Pulse Ox O2 Delivery O2 Flow Rate FiO2 09/07/24 12:32 97.8 59 18 158/78 (104) 95 97.8 09/07/24 08:00 Oxymizer 2 N/A Physical Exam General Appearance: Cooperative. Well developed. Morbidly obese. In no acute distress Head Exam: Normal inspection Neck Exam: Normal inspection. Non-tender. Normal alignment Pulmonary/Respiratory: Chest non-tender. Crackles to bilateral breath sounds Cardiovascular/Chest: Regular rate and rhythm. S1, S2. Sinus rhythm. No murmurs. No JVD. Peripheral Pulses: 2+ Radial (R). 2+ Radial (L). 2+ Pedal (R). 2+ Pedal (L) Abdominal Exam: Normal bowel sounds. Soft. Nontender. No hepatospenomegaly. No masses Ankle Exam: Negative ankle edema Lower extremities: Positive lower extremity pitting edema, 1+ Neuro/Mental Status: A&O x3. Coherent very poor historian Thoughts/Psych: Normal thought pattern. Appropriate mood. Appearance: In no acute distress Skin Exam: Normal inspection. Normal color. Warm. Dry Labs/Diagnostic Data Labs Test 09/07/24 05:38 09/07/24 05:21 09/06/24 02:17 09/05/24 22:40 Range/Units POC Glucose 83 70-106 mg/dl White Blood Count 6.3 4.4-10.8 10^3/uL Red Blood Count 3.89 L 4.5-5.90 10^6/uL Hemoglobin 11.4 L 13.5-17.5 g/dL Hematocrit 34.4 #L 41.0-53.0 % Mean Corpuscular Volume 88.6 80.0-100.0 fL Mean Corpuscular Hemoglobin 29.4 28.0-32.0 pg Mean Corpuscular Hemoglobin Concent 33.2 32.0-36.0 g/dL Red Cell Distribution Width 17.1 H 11.8-14.3 % Platelet Count 192 140-450 10^3/uL Mean Platelet Volume 9.2 6.9-10.8 fL Neutrophils (%) (Auto) 63.2 37.0-80.0 % Lymphocytes (%) (Auto) 22.4 10.0-50.0 % Monocytes (%) (Auto) 10.1 0.0-12.0 % Eosinophils (%) (Auto) 4.0 0.0-7.0 % Basophils (%) (Auto) 0.3 0.0-2.0 % Neutrophils # (Auto) 4.0 1.6-8.6 10 ^3/uL Lymphocytes # (Auto) 1.4 0.4-5.4 10 ^3/uL Monocytes # (Auto) 0.6 0-1.3 10 ^3/uL Eosinophils # (Auto) 0.3 0-0.8 10 ^3/uL Basophils # (Auto) 0 0-0.2 10 ^3/uL Nucleated Red Blood Cells 0.1 % Sodium Level 141 136-145 mmol/L Potassium Level 4.3 3.5-5.1 mmol/L Chloride Level 105 98-107 mmol/L Carbon Dioxide Level 31 20-31 mmol/L Anion Gap 5 5-15 Blood Urea Nitrogen 12 9-23 mg/dL Creatinine 1.00 0.700-1.30 mg/dL Glomerular Filtration Rate Calc 81 >90 mL/min BUN/Creatinine Ratio 12.0 10.0-20.0 Serum Glucose 86 74-106 mg/dL Calcium Level 10.2 8.7-10.4 mg/dL Total Bilirubin 0.3 0.2-1.0 mg/dL Aspartate Amino Transferase (AST) 19 13-40 U/L Alanine Aminotransferase (ALT) 10 7-40 U/L Alkaline Phosphatase 57 46-116 U/L Total Protein 7.0 5.7-8.2 g/dL Albumin 3.4 3.2-4.8 g/dL Troponin I High Sensitivity 38 </=54 ng/L Prothrombin Time 11.1 9.3-11.8 sec Prothrombin Time INR 1.05 0.9-1.15 Activated Partial Thromboplast Time 28.8 24.5-34.5 SEC Lactic Acid Level 0.7 0.4-2.0 mmol/L B-Type Natriuretic Peptide 69.16 0-100 pg/mL Microbiology Date/Time Source Procedure Growth Status 09/06/24 06:20 Nose MRSA Screen - Final Complete 09/05/24 22:39 Blood Blood Culture - Preliminary Resulted Assessment Acute on chronic decompensated HFpEF, NYHA Class III Coronary artery disease status post multiple PTCAs with stent placement Presence of micra leadless pacemaker Hypertension Dyslipidemia Chronic pain syndrome Morbid obesity Plan/Recommendation (Dr. Montesinos) Recent transthoracic echocardiogram revealed LVEF 70% with moderate degree of LV diastolic dysfunction. Initiate preload and afterload as tolerated. Strict I&Os, fluid restrictions and daily weight. Continue DAPT and lipid lowering agent given history of coronary artery disease with stent placement. Initiate GDMT for HFpEF and uptitrate as tolerated. Initiate Ranexa therapy given chronic angina. Initiate DVT/VTE prophylaxis. Obtain a bilateral lower extremity venous US rule out DVT. Patient is to follow up in the outpatient setting with Dr. Montesinos as scheduled. This is a further cardiac workup indicated at this time. Kindly call if in need to re-consult. Thank you for allowing us to participate in this patient's care. This medical document was created using an electronic medical record system with voice recognition software and computerized dictation system. Although this document has been carefully reviewed, there might still be some phonetic and typographical errors. Occasional wrong-word or ``sound-alike substitutions may have occurred due to the inherent limitations of voice recognition software. These areas are purely typographical due to imperfections of the software programs and do not reflect any compromise in the patient's medical care. Please read the chart carefully and recognize, using context, where these substitutions have occurred. Plan discussed with: Patient, Other NYHA Physical activity limitations: Class3(Marked) ordinary (activity causes symtoms) Date of Service: Sep 07, 2024 Billing Provider: CHRISTIANO TUCKER Cardiology Common Codes: [id number] INP/OBS CARE (High) CHRISTIANO TUCKER Sep 07, 2024 16:43
[2024-09-07] MEDS: FUROSEMIDE 40 MG/4 ML VIAL IV ONE (16:45)
--- NOTE | 2024-09-07 17:27 | DVH ---
Bilateral lower extremity venous duplex Clinical History: Edema Comparison: US BILAT LOWER DVT on DOS: 06/28/23 Technique: Duplex Doppler evaluation of the deep venous systems of both lower extremities from the common femora l veins to the popliteal veins including color Doppler and spectral/pulsed waveform analysis was perf ormed. Findings: RIGHT SIDE: The common femoral vein demonstrates appropriate compressibility and waveform variability. There is compressibility/patency of the great saphenous vein at the proximal thigh. The femoral vein demonstrates appropriate compressibility and waveform variability. The deep femoral vein demonstrates appropriate compressibility and waveform variability. The popliteal vein demonstrates appropriate compressibility and waveform variability. There is normal compressibility at the tibioperoneal trunk. LEFT SIDE: The common femoral vein demonstrates appropriate compressibility and waveform variability. There is compressibility/patency of the great saphenous vein at the proximal thigh. The femoral vein demonstrates appropriate compressibility and waveform variability. The deep femoral vein demonstrates appropriate compressibility and waveform variability. The popliteal vein demonstrates appropriate compressibility and waveform variability. There is normal compressibility at the tibioperoneal trunk. Impression: No right or left femoropopliteal venous thrombosis.
[2024-09-07] MEDS: ENOXAPARIN SOD 40 MG/0.4 ML SYRINGE SC ONE (17:58)
[2024-09-07] MEDS: FUROSEMIDE 20 MG/2 ML VIAL IV SCH (18:00)
[2024-09-07] MEDS: RANOLAZINE ER 500 MG TAB PO SCH (21:03)
[2024-09-07] MEDS: METOPROLOL TARTRATE 25 MG TAB PO SCH (21:04)
--- NOTE | 2024-09-07 23:34 | DVHINCON2 ---
Date Seen: Sep 07, 2024 Referring Physician MD Brenda Reason for Consultation Chest pain History of Present Illness This is a 69-year-old male with a past medical history of HFpEF, coronary artery disease status post multiple PCIs and unspecified number of DESTINY, sick sinus syndrome status post micra lead less pacemaker implantation, hypertension, dyslipidemia, chronic kidney disease, cerebrovascular accident, chronic obst ructive pulmonary disease, diabetes mellitus, obstructive sleep apnea, seizure disorder, thyroidectomy, chronic pain syndrome, morbid obesity who presented to the ED with complaint of shortness of breath. Patient is a poor historian, complains of progressive shortness of breath associated with PND and lower extremity edema. Patient also complains of chest pain described as substernal, nonradiating, and non provoked. He underwent multiple 12 lead electrocardiogram revealing a sinus rhythm with a associated left anterior fascicular block and without evidence of acute ischemia. Serial troponin levels are negative. The patient has had multiple admissions to different hospitals within the area for chronic chest pain syndrome. Patient currently follows up with me in my office. Chest x-ray: NAD. Patient was admitted to the hospital. I am asked to consult on this patient. Past Medical History Past medical history reviewed. No other significant than mentioned above. Past Surgical History Multiple PTCAs with stent placement Tonsillectomy Family History: Alcoholism G8 MOTHER, Onset:Unknown Cancer G8 SISTER (uterine cancer) Cardiovascular disease G8 SISTER Cerebrovascular accident (CVA) G8 BROTHER Chronic obstructive pulmonary disease G8 SISTER Depression G8 SISTER Diabetes mellitus G8 SISTER G8 SISTER Family history: Cardiovascular disease Family history: Depression (situation) Family history: Hypertension Family history: Hypertension Glaucoma MATERNAL GPA Sepsis Stroke Stroke Allergies: Coded Allergies: NO KNOWN ALLERGIES (Unverified , 10/04/22) Home Meds Active Scripts Oxycodone W/ Acetaminophen (Percocet 5/325MG) 1 Tab Tb, 1 TAB PO QID, #40 TAB Prov:CYDNEY MCGARRY MD 09/01/24 Furosemide (Lasix) 40 Mg Tab, 40 MG PO BID for 30 Days, #60 TAB Prov:BK LAGUERRE MD 05/29/24 Prednisone (Prednisone) 20 Mg Tab, 40 MG PO DAILY for 5 Days, #5 MG Prov:BK LAGUERRE MD 05/29/24 Ranolazine (Ranexa) 500 Mg Tab, 500 MG PO BID for 30 Days, #60 TAB Prov:JUSTIN DUARTE MD 10/22/18 Reported Medications Oxycodone W/ Acetaminophen (Percocet 5/325MG) 1 Tab Tb, 2 TAB PO BIDPRN for CHRONIC PAIN, TAB 08/29/24 Budesonide-Formoterol Fumarate (Budesonide/Formoterol Fum 160-4.5 Mcg/Act) 1 Aer Aer, 2 PUFF IN BID for 30 Days, #10.2 02/26/24 Midodrine HCl (Midodrine Hydrochloride) 5 Mg Tab, 1 TAB PO TID for 30 Days, #90 02/26/24 Potassium Chloride (Potassium Chloride ER) 10 Meq Tab, 1 TAB PO BID for 30 Days, #60 02/26/24 Aspirin (Aspirin Regular Strength) 325 Mg Tab, 1 TAB PO DAILY for 30 Days, #30 02/26/24 Lactulose (Lactulose) 10 Gm/15 Ml Rachna, 15 ML PO BID PRN for 15 Days, #473 02/26/24 Atorvastatin Calcium (Lipitor) 80 Mg Tab, 1 TAB PO DAILY for 30 Days, #30 02/26/24 Levetiracetam (Levetiracetam) 750 Mg Tab, 1 TAB PO BID for 30 Days, #60 02/26/24 Lidocaine (Lidocaine Topical Pain Pa) 4 % Pad, 1 PATCH TOP DAILY 06/28/23 Gabapentin (Gabapentin) 800 Mg Tab, 1 TAB PO BID for 30 Days, #60 06/28/23 Ipratropium-Albuterol (COMBIVENT RESPIMAT) Respimat Aer, 1 PUFF INH QID 05/14/23 Methocarbamol (Methocarbamol) 500 Mg Tab, 1.5 TAB PO Q8HR PRN for 8 Days, #40 05/14/23 Dapagliflozin Propanediol (Farxiga) 10 Mg Tab, 1 TAB PO DAILY for 30 Days, #30 05/14/23 Beclomethasone Dipropionate (Qvar Redihaler) 80 Mcg/Act Aer, 1 PUFF INH BID for 30 Days, #10.6 02/27/23 Silver Sulfadiazine (Silver Sulfadiazine) 1 % Cre, 1 APPLIC TOP DAILY for 30 Days, #50 02/27/23 Oxybutynin Chloride (Ditropan Xl) 5 Mg Tab, 15 MG PO DAILY for 30 Days, #30 1/9/24 Trazodone Hcl (Trazodone Hcl) 100 Mg Tab, 4 TAB PO HS for 30 Days, #120 02/27/23 Clopidogrel Bisulfate (CLOPIDOGREL) 75 Mg Tab, 1 TAB PO DAILY for 30 Days, #30 02/07/23 Pantoprazole Sodium Sesquihydr (Pantoprazole Sodium) 40 Mg Tab, 1 TAB PO QAM 02/07/23 Bupropion Hcl (Bupropion Hcl) 75 Mg Tab, 2 TAB PO DAILY for 30 Days, #60 11/10/17 Current Medications Current Medications Medications (Trade) Dose Ordered Sig/Yvette Route PRN Reason Start Time Stop Time Status Last Admin Atorvastatin Calcium (Lipitor) 40 mg HS PO 09/06/24 22:00 09/06/24 23:58 Trazodone HCl (Desyrel) 100 mg HS PO 09/06/24 22:00 09/06/24 23:59 Furosemide (Lasix Injection) 20 mg BIDD IV 09/07/24 18:00 UNV Ranolazine (Ranexa ER) 500 mg BID PO 09/07/24 22:00 Metoprolol Tartrate (Lopressor Tablet) 12.5 mg BID PO 09/07/24 22:00 Losartan Potassium (Cozaar Tablet) 12.5 mg DAILY PO 09/08/24 10:00 UNV Empaglifozin (Jardiance) 10 mg DAILY PO 09/08/24 10:00 Enoxaparin Sodium (Lovenox) 40 mg DAILY SC 09/08/24 10:00 UNV Review of Systems Constitutional: No symptom reported Ears, Nose, & Throat: No symptom reported Eyes: No symptom reported Neurological: No symptoms reported Pulmonary/Respiratory: SOB Cardiovascular: Chest pain Gastrointestinal: No symptom reported Genitourinary: No symptom reported Musculoskeletal: No symptom reported Skin: No symptom reported Psychiatric: No symptom reported Endocrine: No symptom reported Hemotologic/Lymphatic: No symptom reported Vital Signs Vital Signs Date Time Temp Pulse Resp B/P (MAP) Pulse Ox O2 Delivery O2 Flow Rate FiO2 09/07/24 12:32 97.8 59 18 158/78 (104) 95 97.8 09/07/24 08:00 Oxymizer 2 N/A Physical Exam GENERAL: Alert and oriented x 3. No acute distress. Morbidly obese. EYES: PERRL, EOMI. Anicteric. HENT: Moist mucous membranes. LUNGS: Decreased breath sounds. CARDIOVASCULAR: Regular rate and rhythm. ABDOMEN: Soft, nontender and nondistended. EXTREMITIES: +1 BLE pitting edema. NEUROLOGIC: No focal neurological deficits. SKIN: Warm, dry. Labs/Diagnostic Data Labs Test 09/07/24 05:38 09/07/24 05:21 09/06/24 02:17 09/05/24 22:40 Range/Units POC Glucose 83 70-106 mg/dl White Blood Count 6.3 4.4-10.8 10^3/uL Red Blood Count 3.89 L 4.5-5.90 10^6/uL Hemoglobin 11.4 L 13.5-17.5 g/dL Hematocrit 34.4 #L 41.0-53.0 % Mean Corpuscular Volume 88.6 80.0-100.0 fL Mean Corpuscular Hemoglobin 29.4 28.0-32.0 pg Mean Corpuscular Hemoglobin Concent 33.2 32.0-36.0 g/dL Red Cell Distribution Width 17.1 H 11.8-14.3 % Platelet Count 192 140-450 10^3/uL Mean Platelet Volume 9.2 6.9-10.8 fL Neutrophils (%) (Auto) 63.2 37.0-80.0 % Lymphocytes (%) (Auto) 22.4 10.0-50.0 % Monocytes (%) (Auto) 10.1 0.0-12.0 % Eosinophils (%) (Auto) 4.0 0.0-7.0 % Basophils (%) (Auto) 0.3 0.0-2.0 % Neutrophils # (Auto) 4.0 1.6-8.6 10 ^3/uL Lymphocytes # (Auto) 1.4 0.4-5.4 10 ^3/uL Monocytes # (Auto) 0.6 0-1.3 10 ^3/uL Eosinophils # (Auto) 0.3 0-0.8 10 ^3/uL Basophils # (Auto) 0 0-0.2 10 ^3/uL Nucleated Red Blood Cells 0.1 % Sodium Level 141 136-145 mmol/L Potassium Level 4.3 3.5-5.1 mmol/L Chloride Level 105 98-107 mmol/L Carbon Dioxide Level 31 20-31 mmol/L Anion Gap 5 5-15 Blood Urea Nitrogen 12 9-23 mg/dL Creatinine 1.00 0.700-1.30 mg/dL Glomerular Filtration Rate Calc 81 >90 mL/min BUN/Creatinine Ratio 12.0 10.0-20.0 Serum Glucose 86 74-106 mg/dL Calcium Level 10.2 8.7-10.4 mg/dL Total Bilirubin 0.3 0.2-1.0 mg/dL Aspartate Amino Transferase (AST) 19 13-40 U/L Alanine Aminotransferase (ALT) 10 7-40 U/L Alkaline Phosphatase 57 46-116 U/L Total Protein 7.0 5.7-8.2 g/dL Albumin 3.4 3.2-4.8 g/dL Troponin I High Sensitivity 38 </=54 ng/L Prothrombin Time 11.1 9.3-11.8 sec Prothrombin Time INR 1.05 0.9-1.15 Activated Partial Thromboplast Time 28.8 24.5-34.5 SEC Lactic Acid Level 0.7 0.4-2.0 mmol/L B-Type Natriuretic Peptide 69.16 0-100 pg/mL Microbiology Date/Time Source Procedure Growth Status 09/06/24 06:20 Nose MRSA Screen - Final Complete 09/05/24 22:39 Blood Blood Culture - Preliminary Resulted Assessment Acute on chronic decompensated HFpEF, NYHA Class III. Coronary artery disease status post multiple PTCAs with stent placement. Presence of micra leadless pacemaker. Hypertension. Dyslipidemia. Chronic pain syndrome. Morbid obesity. Plan/Recommendation I agree with your ongoing assessment and care of plan. Patient has been seen by Jeanna Aranda NP on my behalf, her and I discussed the plan with the patient. Recent transthoracic echocardiogram revealed LVEF 70% with moderate degree of LV diastolic dysfunction. Initiate preload and afterload as tolerated. Strict I&Os, fluid restrictions and daily weight. Continue DAPT and lipid lowering agent given history of coronary artery disease with stent placement. Initiate GDMT for HFpEF and uptitrate as tolerated. Initiate Ranexa therapy given chronic angina. Initiate DVT/VTE prophylaxis. Obtain a bilateral lower extremity venous US rule out DVT. Patient is to follow up in the outpatient setting with me as scheduled. This is a further cardiac workup indicated at this time. Additional plan as per the hospital course. Plan discussed with: Patient NYHA Physical activity limitations: Class3(Marked) ordinary Date of Service: Sep 07, 2024 Billing Provider: ROHINI ABARCA MD Cardiology Common Codes: [id number] INP/OBS CARE (High) ROHINI ABARCA MD Sep 07, 2024 17:11
[2024-09-08] VITALS (8 sets, daily range): BP systolic 139–163; BP diastolic 70–90; PULSE 53–81; RESP 16–19; TEMP 97.9–98.3; O2SAT 94–98
[2024-09-08] MEDS ORDERED: KETOROLAC TROMETH 30 MG/ML 1ML VIAL IV ONE (00:30)
[2024-09-08] MEDS: OXYCODONE W/ ACETAMINOPHEN 5/325MG TABLET PO ONE (02:53)
[2024-09-08] MEDS: ENOXAPARIN SOD 40 MG/0.4 ML SYRINGE SC SCH (09:17)
[2024-09-08] MEDS: LOSARTAN POTASSIUM 25 MG TAB PO SCH (09:17)
[2024-09-08 09:50] LABS: Chloride 106 mmol/L (98-107); Potassium 3.7 mmol/L (3.5-5.1); Sodium 144 mmol/L (136-145)
[2024-09-08 09:51] LABS: Anion Gap 6 (5-15); Calcium 10.0 mg/dL (8.7-10.4); Hematocrit 33.4 % (41.0-53.0); Hemoglobin 10.8 g/dL (13.5-17.5); Mean Corpuscular Hemoglobin 28.5 pg (28.0-32.0); Mean Corpuscular Volume 87.9 fL (80.0-100.0); Nucleated Red Blood Cells % 0.0 %
[2024-09-08 09:56] LABS: BUN/Creatinine Ratio 13.9 (10.0-20.0); Blood Urea Nitrogen 15 mg/dL (9-23); Glucose 104 mg/dL (74-106)
[2024-09-08 10:06] LABS: Carbon Dioxide 32 mmol/L (20-31)
[2024-09-08] MEDS: EMPAGLIFLOZIN 10 MG TAB PO SCH (10:28)
--- NOTE | 2024-09-08 12:31 | DVHPN2 ---
Subjective The patient is seen and examined at bedside. Complain of chest pain. Reviewed: Care Plan, H&P, Labs, Medications, Previous Orders, Radiology Changes from previous H/P or p: No Changes Eyes: No Pain, No Vision change, No Conjunctivae inflammation, No Eyelid inflammation, No Other, No Redness ENT: No Ear pain, No Ear discharge, No Nose pain, No Nose discharge, No Nose congestion, No Mouth pain, No Mouth swelling, No Throat pain, No Throat swelling, No Other Cardiovascular: Chest Pain; No Palpitations, No Orthopnea, No Paroxysmal Noc. Dyspnea, No Edema, No Lt Headedness, No Other Respiratory: Cough; No Dry; Shortness of breath; No SOB with excertion, No Wheezing, No Hemoptysis, No Pleuritic Pain, No Sputum, No Other Gastrointestinal: No Nausea, No Vomiting, No Abdominal Pain, No Diarrhea, No Constipation, No Melena, No Hematochezia, No Other Genitourinary: No Dysuria, No Frequency, No Incontinence, No Hematuria, No Retention, No Other Musculoskeletal: No other, No neck pain, No shoulder pain, No arm pain, No back pain, No hand pain, No leg pain, No foot pain Skin: No Rash, No Lesions, No Jaundice, No Bruising, No Other Objective Vitals Vital Signs Date Time Temp Pulse Resp B/P (MAP) Pulse Ox O2 Delivery O2 Flow Rate FiO2 09/08/24 10:16 61 136/73 09/08/24 09:00 98.3 16 96 98.3 09/08/24 08:00 Oxymizer 2 N/A Intake/Output Intake and Output 09/08/24 07:00 Intake Total 2420 ml Output Total 1525 ml Balance 895 ml Intake Oral 2120 ml IV Total 300 ml Output Urine Total 1525 ml General Appearance: Alert, Oriented X3, Cooperative HEENT: Atraumatic, PERRLA, EOMI, Mucous membr. moist/pink Neck: Supple Lungs: Clear to auscultation Cardiovascular: Regular rate, Normal S1, Normal S2, No murmurs, Gallops, Rubs Abdomen: Normal bowel sounds, Soft Neuro: Cranial nerves 3-12 NL Psych/Mental Status: Mental status NL Medications Current Medications Medications Dose Ordered Sig/Yvette Route Start Time Stop Time Status Last Admin Dose Admin Aspirin 81 mg DAILY PO 09/06/24 10:00 09/08/24 09:16 81 MG Atorvastatin Calcium 40 mg HS PO 09/06/24 22:00 09/07/24 21:03 40 MG Trazodone HCl 100 mg HS PO 09/06/24 22:00 09/07/24 21:03 100 MG Ceftriaxone Sodium 50 ml @ 100 mls/hr DAILY@09 IV 09/06/24 09:00 09/08/24 09:00 100 MLS/HR Azithromycin 250 ml @ 125 mls/hr DAILY IV 09/06/24 10:00 09/07/24 11:13 125 MLS/HR Clopidogrel Bisulfate 75 mg DAILY PO 09/06/24 10:00 09/08/24 09:17 75 MG Diagnostic Test (Pha) 1 strip ACHS 09/06/24 07:00 09/08/24 11:50 1 STRIP Insulin Human Regular ACHS SC 09/06/24 07:00 09/08/24 05:32 2 UNITS Dextrose 50 ml UD PRN IV 09/06/24 01:00 Sodium Chloride 10 ml Q8HR IV 09/06/24 06:00 09/08/24 05:30 10 ML Acetaminophen/ Hydrocodone Bitart 1 tab Q4HP PRN PO 09/06/24 01:00 Ondansetron HCl 4 mg Q4HP PRN IV 09/06/24 01:00 Docusate Sodium 100 mg BIDPRN PRN PO 09/06/24 01:00 Acetaminophen 650 mg Q6HP PRN PO 09/06/24 01:00 Nitroglycerin 0.4 mg Q5MINP PRN SL 09/06/24 01:00 Morphine Sulfate 2 mg Q30M PRN IV 09/06/24 01:00 09/06/24 04:15 2 MG Furosemide 20 mg BIDD IV 09/07/24 18:00 09/08/24 05:30 20 MG Ranolazine 500 mg BID PO 09/07/24 22:00 09/08/24 09:15 500 MG Metoprolol Tartrate 12.5 mg BID PO 09/07/24 22:00 09/08/24 09:16 12.5 MG Losartan Potassium 12.5 mg DAILY PO 09/08/24 10:00 09/08/24 09:17 12.5 MG Empaglifozin 10 mg DAILY PO 09/08/24 10:00 09/08/24 10:28 10 MG Enoxaparin Sodium 40 mg DAILY SC 09/08/24 10:00 09/08/24 09:17 40 MG Methylprednisolone Sodium Succinate 60 mg Q8HR IV 09/08/24 14:00 Laboratory Results Laboratory Tests 09/08/24 09:02 Chemistry Test 09/08/24 09:02 Calcium Level 10.0 mg/dL (8.7-10.4) Microbiology Microbiology Date/Time Source Procedure Growth Status 09/07/24 18:30 Nose MRSA Screen - Final Methicillin Resistant S.aureus Complete 09/05/24 22:39 Blood Blood Culture - Final Staphylococcus epidermidis Complete Labs and/or images reviewed: Labs reviewed by me Assessment/Plan Assessment/Plan Chest pain Pneumonia secondary to Gram-positive and Gram-negative pneumonia Respiratory failure with hypoxia Generalized weakness COPD with acute exacerbation Continuing current management. I will put in a cardiology consulted. Continuing with IV antibiotic Rocephin and Zithromax. Continuing with nebulizer. We will give Solu-Medrol 60 mg IV Q 8 hours. Will get PT to get the patient out of bed and ambulate. Discharge planning. This medical document was created using an electronic medical record system with [employer] direct computerized dictation system. Although this document has been carefully reviewed, there may still be some phonetic and typographical errors. These areas are purely typographical due to imperfections of the software programs, and do not reflect any compromise in the patient's medical care. Plan discussed with: Patient My Orders Orders - ARON PERLA MD Procedure Category Date Status Time * Cardiology Consult CONS 09/07/24 Transmitted 15:01 Methylprednisolone PHA 09/08/24 In Process Sod Succ (Solu Medrol 14:00 Date of Service: Sep 08, 2024 Billing Provider: ARON PERLA MD Common Visit Codes: [id number] INP/OBS CARE(HIGH) ARON PERLA MD Sep 08, 2024 12:31
[2024-09-08] MEDS: methylPREDNISolone SOD SUCC 125 MG/2 ML VL IV SCH (14:06)
--- NOTE | 2024-09-08 23:50 | DVHPN2 ---
Progress Note - Dictate Date Seen: Sep 08, 2024 Medical Necessity Reason Pt with a Central, PICC or Fol: No Subjective Patient was seen and evaluated in follow up. Patient is complaining of SOB. Patient is on 2 L Oxymizer. CO2 32. MRSA nasal swab is positive. Prelim blood cultures positive for staphylococcus epidermidis. Telemetry reviewed. vital signs Vital Sign Date Time Temp Pulse Resp B/P (MAP) Pulse Ox O2 Delivery O2 Flow Rate FiO2 09/08/24 21:32 61 154/83 09/08/24 21:00 98.3 17 98 98.3 09/08/24 20:00 Oxymizer 2 N/A Total Intake and Output 09/07/24 09/07/24 09/08/24 15:00 23:00 07:00 Intake Total 300 ml 320 ml 1800 ml Output Total 125 ml 1400 ml Balance 300 ml 195 ml 400 ml medications Current Medications Medications Dose Ordered Sig/Yvette Route Start Time Stop Time Status Last Admin Dose Admin Aspirin 81 mg DAILY PO 09/06/24 10:00 09/08/24 09:16 81 MG Atorvastatin Calcium 40 mg HS PO 09/06/24 22:00 09/08/24 21:24 40 MG Trazodone HCl 100 mg HS PO 09/06/24 22:00 09/08/24 21:24 100 MG Ceftriaxone Sodium 50 ml @ 100 mls/hr DAILY@09 IV 09/06/24 09:00 09/08/24 09:00 100 MLS/HR Azithromycin 250 ml @ 125 mls/hr DAILY IV 09/06/24 10:00 09/08/24 10:32 125 MLS/HR Clopidogrel Bisulfate 75 mg DAILY PO 09/06/24 10:00 09/08/24 09:17 75 MG Diagnostic Test (Pha) 1 strip ACHS 09/06/24 07:00 09/08/24 21:32 1 STRIP Insulin Human Regular ACHS SC 09/06/24 07:00 09/08/24 05:32 2 UNITS Dextrose 50 ml UD PRN IV 09/06/24 01:00 Sodium Chloride 10 ml Q8HR IV 09/06/24 06:00 09/08/24 21:39 10 ML Acetaminophen/ Hydrocodone Bitart 1 tab Q4HP PRN PO 09/06/24 01:00 Ondansetron HCl 4 mg Q4HP PRN IV 09/06/24 01:00 Docusate Sodium 100 mg BIDPRN PRN PO 09/06/24 01:00 Acetaminophen 650 mg Q6HP PRN PO 09/06/24 01:00 Nitroglycerin 0.4 mg Q5MINP PRN SL 09/06/24 01:00 Morphine Sulfate 2 mg Q30M PRN IV 09/06/24 01:00 09/06/24 04:15 2 MG Furosemide 20 mg BIDD IV 09/07/24 18:00 09/08/24 18:13 20 MG Ranolazine 500 mg BID PO 09/07/24 22:00 09/08/24 21:24 500 MG Metoprolol Tartrate 12.5 mg BID PO 09/07/24 22:00 09/08/24 21:32 12.5 MG Losartan Potassium 12.5 mg DAILY PO 09/08/24 10:00 09/08/24 09:17 12.5 MG Empaglifozin 10 mg DAILY PO 09/08/24 10:00 09/08/24 10:28 10 MG Enoxaparin Sodium 40 mg DAILY SC 09/08/24 10:00 09/08/24 09:17 40 MG Methylprednisolone Sodium Succinate 60 mg Q8HR IV 09/08/24 14:00 09/08/24 21:24 60 MG objective GENERAL: Alert and oriented x 3. No acute distress. Morbidly obese. EYES: PERRL, EOMI. Anicteric. HENT: Moist mucous membranes. LUNGS: Decreased breath sounds. CARDIOVASCULAR: Regular rate and rhythm. ABDOMEN: Soft, nontender and nondistended. EXTREMITIES: +1 BLE pitting edema. NEUROLOGIC: No focal neurological deficits. SKIN: Warm, dry. laboratory and microbiology Laboratory Tests 09/08/24 09:02 Test 09/08/24 09:02 Range/Units Serum Glucose 104 74-106 mg/dL Problem List Acute on chronic decompensated HFpEF, NYHA Class III. Coronary artery disease status post multiple PTCAs with stent placement. Presence of micra leadless pacemaker. Hypertension. Dyslipidemia. Chronic pain syndrome. Morbid obesity. Assessment/Plan Continued all current supportive medical care. Morphine and [place] for pain. Aspirin, Lipitor, Plavix, Metoprolol. IV antibiotics as ordered. DVT prophylactics. Losartan. Nitro SL. Recent transthoracic echocardiogram revealed LVEF 70% with moderate degree of LV diastolic dysfunction. Additional plan as per the hospital course. Dietary Evaluation Review Comments: 1) CCHO 60 + cardiac diet 2) Refer Pacs Administrator for diabetes education Expected Outcomes/Goals: To meet >75% estimated needs Fu 3-5 days Plan discussed with: Patient ROHINI ABARCA MD Sep 08, 2024 23:50
[2024-09-09] VITALS (10 sets, daily range): BP systolic 117–164; BP diastolic 74–102; PULSE 57–68; RESP 16–18; TEMP 97.2–98.3; O2SAT 89–98
[2024-09-09 06:18] LABS: Hematocrit 33.6 % (41.0-53.0); Hemoglobin 11.3 g/dL (13.5-17.5); Mean Corpuscular Hemoglobin 29.1 pg (28.0-32.0); Mean Corpuscular Volume 86.4 fL (80.0-100.0); Nucleated Red Blood Cells % 0.0 %
[2024-09-09 06:21] LABS: Anion Gap 8 (5-15); Calcium 9.4 mg/dL (8.7-10.4); Carbon Dioxide 31 mmol/L (20-31); Chloride 105 mmol/L (98-107); Potassium 3.9 mmol/L (3.5-5.1); Sodium 144 mmol/L (136-145)
[2024-09-09 06:27] LABS: BUN/Creatinine Ratio 16.1 (10.0-20.0); Blood Urea Nitrogen 19 mg/dL (9-23); Glucose 127 mg/dL (74-106)
[2024-09-09] MEDS ORDERED: VANCOMYCIN PER PHARMACY 0 MG IV SCH (12:30)
--- NOTE | 2024-09-09 12:31 | DVHPN2 ---
Subjective The patient is seen and examined at bedside. Complain of chest pain and weak. Reviewed: Care Plan, H&P, Labs, Medications, Previous Orders, Radiology Changes from previous H/P or p: No Changes Eyes: No Pain, No Vision change, No Conjunctivae inflammation, No Eyelid inflammation, No Other, No Redness ENT: No Ear pain, No Ear discharge, No Nose pain, No Nose discharge, No Nose congestion, No Mouth pain, No Mouth swelling, No Throat pain, No Throat swelling, No Other Cardiovascular: Chest Pain; No Palpitations, No Orthopnea, No Paroxysmal Noc. Dyspnea, No Edema, No Lt Headedness, No Other Respiratory: Cough; No Dry; Shortness of breath; No SOB with excertion, No Wheezing, No Hemoptysis, No Pleuritic Pain, No Sputum, No Other Gastrointestinal: No Nausea, No Vomiting, No Abdominal Pain, No Diarrhea, No Constipation, No Melena, No Hematochezia, No Other Genitourinary: No Dysuria, No Frequency, No Incontinence, No Hematuria, No Retention, No Other Musculoskeletal: No other, No neck pain, No shoulder pain, No arm pain, No back pain, No hand pain, No leg pain, No foot pain Skin: No Rash, No Lesions, No Jaundice, No Bruising, No Other Objective Vitals Vital Signs Date Time Temp Pulse Resp B/P (MAP) Pulse Ox O2 Delivery O2 Flow Rate FiO2 09/09/24 10:37 85 146/74 09/09/24 08:30 97.7 16 93 97.7 09/09/24 08:00 Oxymizer 2 N/A Intake/Output Intake and Output 09/09/24 07:00 Intake Total 700 ml Output Total 200 ml Balance 500 ml Intake Oral 500 ml IV Total 200 ml Output Urine Total 200 ml # Voids 8 # Bowel Movements 1 General Appearance: Alert, Oriented X3, Cooperative HEENT: Atraumatic, PERRLA, EOMI, Mucous membr. moist/pink Neck: Supple Lungs: Clear to auscultation Cardiovascular: Regular rate, Normal S1, Normal S2, No murmurs, Gallops, Rubs Abdomen: Normal bowel sounds, Soft Neuro: Cranial nerves 3-12 NL Psych/Mental Status: Mental status NL Medications Current Medications Medications Dose Ordered Sig/Yvette Route Start Time Stop Time Status Last Admin Dose Admin Aspirin 81 mg DAILY PO 09/06/24 10:00 09/09/24 09:37 81 MG Atorvastatin Calcium 40 mg HS PO 09/06/24 22:00 09/08/24 21:24 40 MG Trazodone HCl 100 mg HS PO 09/06/24 22:00 09/08/24 21:24 100 MG Clopidogrel Bisulfate 75 mg DAILY PO 09/06/24 10:00 09/09/24 09:34 75 MG Diagnostic Test (Pha) 1 strip ACHS 09/06/24 07:00 09/09/24 11:17 1 STRIP Insulin Human Regular ACHS SC 09/06/24 07:00 09/09/24 11:30 4 UNITS Dextrose 50 ml UD PRN IV 09/06/24 01:00 Sodium Chloride 10 ml Q8HR IV 09/06/24 06:00 09/09/24 05:15 10 ML Acetaminophen/ Hydrocodone Bitart 1 tab Q4HP PRN PO 09/06/24 01:00 Ondansetron HCl 4 mg Q4HP PRN IV 09/06/24 01:00 Docusate Sodium 100 mg BIDPRN PRN PO 09/06/24 01:00 Acetaminophen 650 mg Q6HP PRN PO 09/06/24 01:00 Nitroglycerin 0.4 mg Q5MINP PRN SL 09/06/24 01:00 Morphine Sulfate 2 mg Q30M PRN IV 09/06/24 01:00 09/06/24 04:15 2 MG Furosemide 20 mg BIDD IV 09/07/24 18:00 09/09/24 05:20 20 MG Ranolazine 500 mg BID PO 09/07/24 22:00 09/09/24 09:37 500 MG Metoprolol Tartrate 12.5 mg BID PO 09/07/24 22:00 09/09/24 09:37 12.5 MG Losartan Potassium 12.5 mg DAILY PO 09/08/24 10:00 09/09/24 09:34 12.5 MG Empaglifozin 10 mg DAILY PO 09/08/24 10:00 09/09/24 09:37 10 MG Enoxaparin Sodium 40 mg DAILY SC 09/08/24 10:00 09/09/24 09:33 40 MG Methylprednisolone Sodium Succinate 60 mg Q8HR IV 09/08/24 14:00 09/09/24 05:15 60 MG Laboratory Results Laboratory Tests 09/09/24 05:08 Chemistry Test 09/09/24 05:08 Calcium Level 9.4 mg/dL (8.7-10.4) Microbiology Microbiology Date/Time Source Procedure Growth Status 09/07/24 18:30 Nose MRSA Screen - Final Methicillin Resistant S.aureus Complete 09/05/24 22:39 Blood Blood Culture - Final Staphylococcus epidermidis Complete Labs and/or images reviewed: Labs reviewed by me, Image(s) reviewed by me Assessment/Plan Assessment/Plan Chest pain Pneumonia secondary to Gram-positive and Gram-negative pneumonia Respiratory failure with hypoxia Generalized weakness COPD with acute exacerbation Bacteremia with staph epidermidis Continuing current management. I will put in a cardiology consulted. Continuing with IV antibiotic. I will d/c rocephin and azithromax. I will start patient on Vancomycin IV pharmacy to dose and levaquin 500mg IV qday base on the sensitivity of the bacteria. Anticipate to repeat BC in a couple days. Continuing with nebulizer. Continue with Solu-Medrol 60 mg IV Q 8 hours. Will get PT to get the patient out of bed and ambulate. Discharge planning. This medical document was created using an electronic medical record system with [employer] direct computerized dictation system. Although this document has been carefully reviewed, there may still be some phonetic and typographical errors. These areas are purely typographical due to imperfections of the software programs, and do not reflect any compromise in the patient's medical care. Plan discussed with: Patient My Orders Orders - ARON PERLA MD Procedure Category Date Status Time Cleanse Wound With ELLIE 09/08/24 In Process Mild Soap A 17:54 Pt Request For Service PT 09/08/24 Logged 20:34 Date of Service: Sep 09, 2024 Billing Provider: ARON PERLA MD Common Visit Codes: [id number] INP/OBS CARE(HIGH) ARON PERLA MD Sep 09, 2024 12:31
[2024-09-09] MEDS: OXYCODONE W/ ACETAMINOPHEN 5/325MG TABLET PO PRN (14:13)
[2024-09-09] MEDS: VANCOMYCIN 1GM/200ML PM 250 ML IV SCH (15:45)
--- NOTE | 2024-09-09 15:54 | DVHPN2 ---
Progress Note - Dictate Date Seen: Sep 09, 2024 Medical Necessity Reason Pt with a Central, PICC or Fol: No Subjective Patient was seen and evaluated in follow up. No overnight events. Patient is on 2 L Oxymizer. Patient is complaining of SOB. Patient started on Mupirocin due to positive MRSA nasal swab. Telemetry reviewed. vital signs Vital Sign Date Time Temp Pulse Resp B/P (MAP) Pulse Ox O2 Delivery O2 Flow Rate FiO2 09/09/24 13:00 98.3 62 17 149/102 (118) 93 98.3 09/09/24 08:00 Oxymizer 2 N/A Total Intake and Output 09/08/24 09/08/24 09/09/24 15:00 23:00 07:00 Intake Total 50 ml 150 ml 500 ml Output Total 200 ml Balance 50 ml 150 ml 300 ml medications Current Medications Medications Dose Ordered Sig/Yvette Route Start Time Stop Time Status Last Admin Dose Admin Aspirin 81 mg DAILY PO 09/06/24 10:00 09/09/24 09:37 81 MG Atorvastatin Calcium 40 mg HS PO 09/06/24 22:00 09/08/24 21:24 40 MG Trazodone HCl 100 mg HS PO 09/06/24 22:00 09/08/24 21:24 100 MG Clopidogrel Bisulfate 75 mg DAILY PO 09/06/24 10:00 09/09/24 09:34 75 MG Diagnostic Test (Pha) 1 strip ACHS 09/06/24 07:00 09/09/24 11:17 1 STRIP Insulin Human Regular ACHS SC 09/06/24 07:00 09/09/24 11:30 4 UNITS Dextrose 50 ml UD PRN IV 09/06/24 01:00 Sodium Chloride 10 ml Q8HR IV 09/06/24 06:00 09/09/24 13:33 10 ML Ondansetron HCl 4 mg Q4HP PRN IV 09/06/24 01:00 Docusate Sodium 100 mg BIDPRN PRN PO 09/06/24 01:00 Acetaminophen 650 mg Q6HP PRN PO 09/06/24 01:00 Nitroglycerin 0.4 mg Q5MINP PRN SL 09/06/24 01:00 Morphine Sulfate 2 mg Q30M PRN IV 09/06/24 01:00 09/06/24 04:15 2 MG Furosemide 20 mg BIDD IV 09/07/24 18:00 09/09/24 05:20 20 MG Ranolazine 500 mg BID PO 09/07/24 22:00 09/09/24 09:37 500 MG Metoprolol Tartrate 12.5 mg BID PO 09/07/24 22:00 09/09/24 09:37 12.5 MG Losartan Potassium 12.5 mg DAILY PO 09/08/24 10:00 09/09/24 09:34 12.5 MG Empaglifozin 10 mg DAILY PO 09/08/24 10:00 09/09/24 09:37 10 MG Enoxaparin Sodium 40 mg DAILY SC 09/08/24 10:00 09/09/24 09:33 40 MG Methylprednisolone Sodium Succinate 60 mg Q8HR IV 09/08/24 14:00 09/09/24 14:12 60 MG Vancomycin HCl 0 ml @ 0 mls/hr UD IV 09/09/24 12:30 Levofloxacin/ Dextrose 100 ml @ 100 mls/hr DAILY IV 09/09/24 12:30 09/09/24 14:12 100 MLS/HR Oxycodone/ Acetaminophen 2 tab Q6HP PRN PO 09/09/24 13:30 09/09/24 14:13 2 TAB Mupirocin 1 applic BID EACHNOSTRI 09/09/24 22:00 09/14/24 21:59 Vancomycin HCl 250 ml @ 250 mls/hr Q1H IV 09/09/24 14:45 09/09/24 16:44 objective GENERAL: Alert and oriented x 3. No acute distress. Morbidly obese. EYES: PERRL, EOMI. Anicteric. HENT: Moist mucous membranes. LUNGS: Decreased breath sounds. CARDIOVASCULAR: Regular rate and rhythm. ABDOMEN: Soft, nontender and nondistended. EXTREMITIES: +1 BLE pitting edema. NEUROLOGIC: No focal neurological deficits. SKIN: Warm, dry. laboratory and microbiology Laboratory Tests 09/09/24 05:08 Test 09/09/24 05:08 Range/Units Serum Glucose 127 H 74-106 mg/dL Problem List Acute on chronic decompensated HFpEF, NYHA Class III. Coronary artery disease status post multiple PTCAs with stent placement. Presence of micra leadless pacemaker. Hypertension. Dyslipidemia. Chronic pain syndrome. Morbid obesity. Assessment/Plan Continued all current supportive medical care. Aspirin, Lipitor, Plavix, Metoprolol. Morphine and Oxycodone for pain management. DVT prophylactics. Diuretics with Lasix. IV antibiotics as ordered. Losartan. Nitro SL. Additional plan as per the hospital course. Dietary Evaluation Review Comments: 1) CCHO 60 + cardiac diet 2) Refer Processes Chemical Design Engineer for diabetes education Expected Outcomes/Goals: To meet >75% estimated needs Fu 3-5 days Plan discussed with: Patient ROHINI ABARCA MD Sep 09, 2024 15:54
[2024-09-09] MEDS: MUPIROCIN 2% OINT 15gm or 22gm FOR MRSA NARES EACHNOSTRI SCH (20:57)
[2024-09-10] VITALS (9 sets, daily range): BP systolic 114–151; BP diastolic 49–83; PULSE 53–75; RESP 17–21; TEMP 97.5–98.4; O2SAT 92–98
[2024-09-10 06:17] LABS: Hematocrit 34.0 % (41.0-53.0); Hemoglobin 11.1 g/dL (13.5-17.5); Mean Corpuscular Hemoglobin 28.4 pg (28.0-32.0); Mean Corpuscular Volume 87.0 fL (80.0-100.0); Nucleated Red Blood Cells % 0.1 %
[2024-09-10 06:30] LABS: Anion Gap 10 (5-15); Calcium 10.1 mg/dL (8.7-10.4); Chloride 102 mmol/L (98-107); Potassium 3.7 mmol/L (3.5-5.1); Sodium 143 mmol/L (136-145)
[2024-09-10 06:37] LABS: BUN/Creatinine Ratio 20.0 (10.0-20.0)
[2024-09-10 06:47] LABS: Blood Urea Nitrogen 28 mg/dL (9-23); Carbon Dioxide 31 mmol/L (20-31); Glucose 139 mg/dL (74-106)
[2024-09-10] MEDS ORDERED: VANCOMYCIN 1GM/200ML PM 200 ML IV SCH (12:00)
[2024-09-10] MEDS: VANCOMYCIN 750mg/150ml 150 ML IV SCH (13:37)
--- NOTE | 2024-09-10 13:57 | DVHPN2 ---
Subjective The patient is seen and examined at bedside. Patient feel better today. Reviewed: Care Plan, H&P, Labs, Medications, Previous Orders, Radiology Changes from previous H/P or p: No Changes Eyes: No Pain, No Vision change, No Conjunctivae inflammation, No Eyelid inflammation, No Other, No Redness ENT: No Ear pain, No Ear discharge, No Nose pain, No Nose discharge, No Nose congestion, No Mouth pain, No Mouth swelling, No Throat pain, No Throat swelling, No Other Cardiovascular: Chest Pain; No Palpitations, No Orthopnea, No Paroxysmal Noc. Dyspnea, No Edema, No Lt Headedness, No Other Respiratory: Cough; No Dry; Shortness of breath; No SOB with excertion, No Wheezing, No Hemoptysis, No Pleuritic Pain, No Sputum, No Other Gastrointestinal: No Nausea, No Vomiting, No Abdominal Pain, No Diarrhea, No Constipation, No Melena, No Hematochezia, No Other Genitourinary: No Dysuria, No Frequency, No Incontinence, No Hematuria, No Retention, No Other Musculoskeletal: No other, No neck pain, No shoulder pain, No arm pain, No back pain, No hand pain, No leg pain, No foot pain Skin: No Rash, No Lesions, No Jaundice, No Bruising, No Other Objective Vitals Vital Signs Date Time Temp Pulse Resp B/P (MAP) Pulse Ox O2 Delivery O2 Flow Rate FiO2 09/10/24 13:00 97.5 53 20 119/60 (79) 98 97.5 09/10/24 08:00 Oxymizer 2 N/A Intake/Output Intake and Output 09/10/24 07:00 Intake Total 800 ml Balance 800 ml Intake Oral 300 ml IV Total 500 ml # Voids 10 # Bowel Movements 1 General Appearance: Alert, Oriented X3, Cooperative HEENT: Atraumatic, PERRLA, EOMI, Mucous membr. moist/pink Neck: Supple Lungs: Clear to auscultation Cardiovascular: Regular rate, Normal S1, Normal S2, No murmurs, Gallops, Rubs Abdomen: Normal bowel sounds, Soft Neuro: Cranial nerves 3-12 NL Psych/Mental Status: Mental status NL Medications Current Medications Medications Dose Ordered Sig/Yvette Route Start Time Stop Time Status Last Admin Dose Admin Aspirin 81 mg DAILY PO 09/06/24 10:00 09/10/24 11:40 81 MG Atorvastatin Calcium 40 mg HS PO 09/06/24 22:00 09/09/24 20:58 40 MG Trazodone HCl 100 mg HS PO 09/06/24 22:00 09/09/24 20:57 100 MG Clopidogrel Bisulfate 75 mg DAILY PO 09/06/24 10:00 09/10/24 11:41 75 MG Diagnostic Test (Pha) 1 strip ACHS 09/06/24 07:00 09/10/24 11:41 1 STRIP Insulin Human Regular ACHS SC 09/06/24 07:00 09/10/24 11:48 2 UNITS Dextrose 50 ml UD PRN IV 09/06/24 01:00 Sodium Chloride 10 ml Q8HR IV 09/06/24 06:00 09/10/24 13:37 10 ML Ondansetron HCl 4 mg Q4HP PRN IV 09/06/24 01:00 Docusate Sodium 100 mg BIDPRN PRN PO 09/06/24 01:00 Acetaminophen 650 mg Q6HP PRN PO 09/06/24 01:00 Nitroglycerin 0.4 mg Q5MINP PRN SL 09/06/24 01:00 Morphine Sulfate 2 mg Q30M PRN IV 09/06/24 01:00 09/06/24 04:15 2 MG Furosemide 20 mg BIDD IV 09/07/24 18:00 09/10/24 05:22 20 MG Ranolazine 500 mg BID PO 09/07/24 22:00 09/10/24 11:40 500 MG Metoprolol Tartrate 12.5 mg BID PO 09/07/24 22:00 09/10/24 11:40 12.5 MG Losartan Potassium 12.5 mg DAILY PO 09/08/24 10:00 09/10/24 11:39 12.5 MG Empaglifozin 10 mg DAILY PO 09/08/24 10:00 09/10/24 11:40 10 MG Enoxaparin Sodium 40 mg DAILY SC 09/08/24 10:00 09/10/24 11:49 40 MG Methylprednisolone Sodium Succinate 60 mg Q8HR IV 09/08/24 14:00 09/10/24 13:37 60 MG Vancomycin HCl 0 ml @ 0 mls/hr UD IV 09/09/24 12:30 Levofloxacin/ Dextrose 100 ml @ 100 mls/hr DAILY IV 09/09/24 12:30 09/10/24 11:36 100 MLS/HR Oxycodone/ Acetaminophen 2 tab Q6HP PRN PO 09/09/24 13:30 09/10/24 11:41 2 TAB Mupirocin 1 applic BID EACHNOSTRI 09/09/24 22:00 09/14/24 21:59 09/10/24 11:36 1 APPLIC Vancomycin HCl 200 ml @ 200 mls/hr Q12H IV 09/10/24 12:00 UNV Vancomycin HCl 150 ml @ 150 mls/hr Q12H IV 09/10/24 12:00 09/10/24 13:37 150 MLS/HR Laboratory Results Laboratory Tests 09/10/24 05:03 Chemistry Test 09/10/24 05:03 Calcium Level 10.1 mg/dL (8.7-10.4) Microbiology Microbiology Date/Time Source Procedure Growth Status 09/07/24 18:30 Nose MRSA Screen - Final Methicillin Resistant S.aureus Complete 09/05/24 22:39 Blood Blood Culture - Final Staphylococcus epidermidis Complete Labs and/or images reviewed: Labs reviewed by me Assessment/Plan Assessment/Plan Chest pain Pneumonia secondary to Gram-positive and Gram-negative pneumonia Respiratory failure with hypoxia Generalized weakness COPD with acute exacerbation Bacteremia with staph epidermidis Continuing current management. Will DW Emotional Support Teacher to see if patient need WILBERT Continuing with IV antibiotic. I will d/c rocephin and azithromax. I will start patient on Vancomycin IV pharmacy to dose and levaquin 500mg IV qday base on the sensitivity of the bacteria. Anticipate to repeat BC in a couple days. Continuing with nebulizer. Continue with Solu-Medrol 60 mg IV Q 8 hours. Will get PT to get the patient out of bed and ambulate. Discharge planning. This medical document was created using an electronic medical record system with [employer] computerized dictation system. Although this document has been carefully reviewed, there may still be some phonetic and typographical errors. These areas are purely typographical due to imperfections of the software programs, and do not reflect any compromise in the patient's medical care. Plan discussed with: Patient My Orders Orders - ARON PERLA MD Procedure Category Date Status Time Echo Wilbert Complete BD 09/09/24 Transmitted 18:14 Vancomycin PHA 09/10/24 In Process 750mg/150ml 12:00 Vancomycin Per ELLIE 09/10/24 In Process Pharmacy [facility] 12:00 Vancomycin,[facility] 09/11/24 Verified 11:00 Date of Service: Sep 10, 2024 Billing Provider: ARON PERLA MD Common Visit Codes: [id number] INP/OBS CARE(HIGH) ARON PERLA MD Sep 10, 2024 13:57
--- NOTE | 2024-09-10 23:56 | DVHPN2 ---
Progress Note - Dictate Date Seen: Sep 10, 2024 Medical Necessity Reason Pt with a Central, PICC or Fol: No Subjective Patient was seen and evaluated in follow up. Patient is complaining of chest pain and weakness. Patient is on 2 L Oxymizer. Patient is refusing to use urinal independently. WBC 13.3, HCT 34, BUN 28, FORMULATOR 1.40. Telemetry reviewed. vital signs Vital Sign Date Time Temp Pulse Resp B/P (MAP) Pulse Ox O2 Delivery O2 Flow Rate FiO2 09/10/24 13:00 97.5 53 20 119/60 (79) 98 97.5 09/10/24 08:00 Oxymizer 2 N/A Total Intake and Output 09/09/24 09/09/24 09/10/24 15:00 23:00 07:00 Intake Total 500 ml 300 ml Balance 500 ml 300 ml medications Current Medications Medications Dose Ordered Sig/Yvette Route Start Time Stop Time Status Last Admin Dose Admin Aspirin 81 mg DAILY PO 09/06/24 10:00 09/10/24 11:40 81 MG Atorvastatin Calcium 40 mg HS PO 09/06/24 22:00 09/09/24 20:58 40 MG Trazodone HCl 100 mg HS PO 09/06/24 22:00 09/09/24 20:57 100 MG Clopidogrel Bisulfate 75 mg DAILY PO 09/06/24 10:00 09/10/24 11:41 75 MG Diagnostic Test (Pha) 1 strip ACHS 09/06/24 07:00 09/10/24 11:41 1 STRIP Insulin Human Regular ACHS SC 09/06/24 07:00 09/10/24 11:48 2 UNITS Dextrose 50 ml UD PRN IV 09/06/24 01:00 Sodium Chloride 10 ml Q8HR IV 09/06/24 06:00 09/10/24 13:37 10 ML Ondansetron HCl 4 mg Q4HP PRN IV 09/06/24 01:00 Docusate Sodium 100 mg BIDPRN PRN PO 09/06/24 01:00 Acetaminophen 650 mg Q6HP PRN PO 09/06/24 01:00 Nitroglycerin 0.4 mg Q5MINP PRN SL 09/06/24 01:00 Morphine Sulfate 2 mg Q30M PRN IV 09/06/24 01:00 09/06/24 04:15 2 MG Furosemide 20 mg BIDD IV 09/07/24 18:00 09/10/24 05:22 20 MG Ranolazine 500 mg BID PO 09/07/24 22:00 09/10/24 11:40 500 MG Metoprolol Tartrate 12.5 mg BID PO 09/07/24 22:00 09/10/24 11:40 12.5 MG Losartan Potassium 12.5 mg DAILY PO 09/08/24 10:00 09/10/24 11:39 12.5 MG Empaglifozin 10 mg DAILY PO 09/08/24 10:00 09/10/24 11:40 10 MG Enoxaparin Sodium 40 mg DAILY SC 09/08/24 10:00 09/10/24 11:49 40 MG Methylprednisolone Sodium Succinate 60 mg Q8HR IV 09/08/24 14:00 09/10/24 13:37 60 MG Vancomycin HCl 0 ml @ 0 mls/hr UD IV 09/09/24 12:30 Levofloxacin/ Dextrose 100 ml @ 100 mls/hr DAILY IV 09/09/24 12:30 09/10/24 11:36 100 MLS/HR Oxycodone/ Acetaminophen 2 tab Q6HP PRN PO 09/09/24 13:30 09/10/24 11:41 2 TAB Mupirocin 1 applic BID EACHNOSTRI 09/09/24 22:00 09/14/24 21:59 09/10/24 11:36 1 APPLIC Vancomycin HCl 200 ml @ 200 mls/hr Q12H IV 09/10/24 12:00 UNV Vancomycin HCl 150 ml @ 150 mls/hr Q12H IV 09/10/24 12:00 09/10/24 13:37 150 MLS/HR objective GENERAL: Alert and oriented x 3. No acute distress. Morbidly obese. EYES: PERRL, EOMI. Anicteric. HENT: Moist mucous membranes. LUNGS: Decreased breath sounds. CARDIOVASCULAR: Regular rate and rhythm. ABDOMEN: Soft, nontender and nondistended. EXTREMITIES: +1 BLE pitting edema. NEUROLOGIC: No focal neurological deficits. SKIN: Warm, dry. laboratory and microbiology Laboratory Tests 09/10/24 05:03 Test 09/10/24 05:03 Range/Units Serum Glucose 139 H 74-106 mg/dL Problem List Acute on chronic decompensated HFpEF, NYHA Class III. Coronary artery disease status post multiple PTCAs with stent placement. Presence of micra leadless pacemaker. Hypertension. Dyslipidemia. Chronic pain syndrome. Morbid obesity. Assessment/Plan Continued all current supportive medical care. Aspirin,Plavix, Metoprolol. Morphine and Oxycodone for pain management. DVT prophylactics. Diuretics with Lasix. IV antibiotics as ordered. Losartan. Nitro SL. Additional plan as per the hospital course. Dietary Evaluation Review Comments: 1[facility] 2) Refer G[employer] for diabetes education Expected Outcomes/Goals: To meet >75% estimated needs Fu 3-5 days Plan discussed with: Patient ROHINI ABARCA MD Sep 10, 2024 14:20
[2024-09-11 05:03] VITALS: BP 139/71; PULSE 57; RESP 21; TEMP 98; O2SAT 96
[2024-09-11 06:08] LABS: Hematocrit 36.0 % (41.0-53.0); Hemoglobin 11.8 g/dL (13.5-17.5); Mean Corpuscular Hemoglobin 28.5 pg (28.0-32.0); Mean Corpuscular Volume 87.1 fL (80.0-100.0); Nucleated Red Blood Cells % 0.0 %
[2024-09-11 06:13] LABS: Anion Gap 9 (5-15); Carbon Dioxide 29 mmol/L (20-31); Chloride 104 mmol/L (98-107); Sodium 142 mmol/L (136-145)
[2024-09-11 06:15] LABS: Calcium 9.0 mg/dL (8.7-10.4)
[2024-09-11 06:16] LABS: Potassium 3.5 mmol/L (3.5-5.1)
[2024-09-11 06:19] LABS: BUN/Creatinine Ratio 24.4 (10.0-20.0)
[2024-09-11 06:20] LABS: Blood Urea Nitrogen 41 mg/dL (9-23); Glucose 177 mg/dL (74-106)
[2024-09-11 08:00] VITALS: PULSE 55; PULSE 56; RESP 17; O2SAT 96
[2024-09-11 09:00] VITALS: BP 123/89; PULSE 59; RESP 17; TEMP 97.6; O2SAT 96
--- NOTE | 2024-09-11 12:07 | DVHPN2 ---
Subjective The patient is seen and examined at bedside. Patient feel better today. Reviewed: Care Plan, H&P, Labs, Medications, Previous Orders, Radiology Changes from previous H/P or p: No Changes Eyes: No Pain, No Vision change, No Conjunctivae inflammation, No Eyelid inflammation, No Other, No Redness ENT: No Ear pain, No Ear discharge, No Nose pain, No Nose discharge, No Nose congestion, No Mouth pain, No Mouth swelling, No Throat pain, No Throat swelling, No Other Cardiovascular: Chest Pain; No Palpitations, No Orthopnea, No Paroxysmal Noc. Dyspnea, No Edema, No Lt Headedness, No Other Respiratory: Cough; No Dry; Shortness of breath; No SOB with excertion, No Wheezing, No Hemoptysis, No Pleuritic Pain, No Sputum, No Other Gastrointestinal: No Nausea, No Vomiting, No Abdominal Pain, No Diarrhea, No Constipation, No Melena, No Hematochezia, No Other Genitourinary: No Dysuria, No Frequency, No Incontinence, No Hematuria, No Retention, No Other Musculoskeletal: No other, No neck pain, No shoulder pain, No arm pain, No back pain, No hand pain, No leg pain, No foot pain Skin: No Rash, No Lesions, No Jaundice, No Bruising, No Other Objective Vitals Vital Signs Date Time Temp Pulse Resp B/P (MAP) Pulse Ox O2 Delivery O2 Flow Rate FiO2 09/11/24 09:58 123/89 09/11/24 09:00 97.6 59 17 96 97.6 09/10/24 20:00 Oxymizer 2 N/A Intake/Output Intake and Output 09/11/24 07:00 Intake Total 3150 ml Output Total 1800 ml Balance 1350 ml Intake Oral 2750 ml IV Total 400 ml Output Urine Total 1800 ml # Voids 3 General Appearance: Alert, Oriented X3, Cooperative HEENT: Atraumatic, PERRLA, EOMI, Mucous membr. moist/pink Neck: Supple Lungs: Clear to auscultation Cardiovascular: Regular rate, Normal S1, Normal S2, No murmurs, Gallops, Rubs Abdomen: Normal bowel sounds, Soft Neuro: Cranial nerves 3-12 NL Psych/Mental Status: Mental status NL Medications Current Medications Medications Dose Ordered Sig/Yvette Route Start Time Stop Time Status Last Admin Dose Admin Aspirin 81 mg DAILY PO 09/06/24 10:00 09/11/24 09:59 81 MG Atorvastatin Calcium 40 mg HS PO 09/06/24 22:00 09/10/24 22:00 40 MG Trazodone HCl 100 mg HS PO 09/06/24 22:00 09/10/24 22:00 100 MG Clopidogrel Bisulfate 75 mg DAILY PO 09/06/24 10:00 09/11/24 09:59 75 MG Diagnostic Test (Pha) 1 strip ACHS 09/06/24 07:00 09/11/24 11:33 1 STRIP Insulin Human Regular ACHS SC 09/06/24 07:00 09/11/24 11:33 3 UNITS Dextrose 50 ml UD PRN IV 09/06/24 01:00 Sodium Chloride 10 ml Q8HR IV 09/06/24 06:00 09/11/24 05:49 10 ML Ondansetron HCl 4 mg Q4HP PRN IV 09/06/24 01:00 Docusate Sodium 100 mg BIDPRN PRN PO 09/06/24 01:00 Acetaminophen 650 mg Q6HP PRN PO 09/06/24 01:00 Nitroglycerin 0.4 mg Q5MINP PRN SL 09/06/24 01:00 Morphine Sulfate 2 mg Q30M PRN IV 09/06/24 01:00 09/06/24 04:15 2 MG Furosemide 20 mg BIDD IV 09/07/24 18:00 09/11/24 05:51 20 MG Ranolazine 500 mg BID PO 09/07/24 22:00 09/11/24 09:58 500 MG Metoprolol Tartrate 12.5 mg BID PO 09/07/24 22:00 09/10/24 11:40 12.5 MG Losartan Potassium 12.5 mg DAILY PO 09/08/24 10:00 09/11/24 09:58 12.5 MG Empaglifozin 10 mg DAILY PO 09/08/24 10:00 09/11/24 09:59 10 MG Enoxaparin Sodium 40 mg DAILY SC 09/08/24 10:00 09/11/24 10:00 40 MG Methylprednisolone Sodium Succinate 60 mg Q8HR IV 09/08/24 14:00 09/11/24 05:51 60 MG Vancomycin HCl 0 ml @ 0 mls/hr UD IV 09/09/24 12:30 Levofloxacin/ Dextrose 100 ml @ 100 mls/hr DAILY IV 09/09/24 12:30 09/11/24 10:00 100 MLS/HR Oxycodone/ Acetaminophen 2 tab Q6HP PRN PO 09/09/24 13:30 09/11/24 11:32 2 TAB Mupirocin 1 applic BID EACHNOSTRI 09/09/24 22:00 09/14/24 21:59 09/11/24 10:11 1 APPLIC Vancomycin HCl 200 ml @ 200 mls/hr Q12H IV 09/10/24 12:00 UNV Laboratory Results Laboratory Tests 09/11/24 05:17 Chemistry Test 09/11/24 05:17 Calcium Level 9.0 mg/dL (8.7-10.4) Microbiology Microbiology Date/Time Source Procedure Growth Status 09/07/24 18:30 Nose MRSA Screen - Final Methicillin Resistant S.aureus Complete 09/05/24 22:39 Blood Blood Culture - Final Staphylococcus epidermidis Complete Assessment/Plan Assessment/Plan Chest pain Pneumonia secondary to Gram-positive and Gram-negative pneumonia Respiratory failure with hypoxia Generalized weakness COPD with acute exacerbation Bacteremia with staph epidermidis Continuing current management. DW with Shop Foreman, Dr Montesinos for potential GENO Continuing with IV antibiotic. I will d/c rocephin and azithromax. I will start patient on Vancomycin IV pharmacy to dose and levaquin 500mg IV qday base on the sensitivity of the bacteria. Anticipate to repeat BC in a couple days. Continuing with nebulizer. Continue with Solu-Medrol 60 mg IV Q 8 hours. Will get PT to get the patient out of bed and ambulate. Discharge planning. This medical document was created using an electronic medical record system with M*M [employer] direct computerized dictation system. Although this document has been carefully reviewed, there may still be some phonetic and typographical errors. These areas are purely typographical due to imperfections of the software programs, and do not reflect any compromise in the patient's medical care. Plan discussed with: Patient My Orders Orders - ARON PERLA MD Procedure Category Date Status Time Vancomycin,Random LAB 09/12/24 Verified 04:00 Blood Culture DAVE 09/11/24 Verified 12:06 Date of Service: Sep 11, 2024 Billing Provider: ARON PERLA MD Common Visit Codes: [id number] INP/OBS CARE(HIGH) ARON PERLA MD Sep 11, 2024 12:07
[2024-09-11 13:00] VITALS: BP 118/75; PULSE 60; RESP 16; TEMP 97.8; O2SAT 94
[2024-09-11 17:00] VITALS: BP 110/72; PULSE 75; RESP 17; TEMP 98.3; O2SAT 99
[2024-09-11 20:00] VITALS: PULSE 65; PULSE 83; RESP 18; O2SAT 98
--- NOTE | 2024-09-12 00:11 | DVHPN2 ---
Progress Note - Dictate Date Seen: Sep 11, 2024 Medical Necessity Reason Pt with a Central, PICC or Fol: No Subjective Patient was seen and evaluated in follow up. Patient reports feeling better today. Patient was switched to room air. Patient is bradycardic in the 50's. WBC 15.2, BUN 41, SUPERVISOR DISPLAY FABRICATION 1.68. Telemetry reviewed. vital signs Vital Sign Date Time Temp Pulse Resp B/P (MAP) Pulse Ox O2 Delivery O2 Flow Rate FiO2 09/11/24 09:58 123/89 09/11/24 09:00 97.6 59 17 96 97.6 09/11/24 08:00 Room Air* 0 21 Total Intake and Output 09/10/24 09/10/24 09/11/24 15:00 23:00 07:00 Intake Total 1250 ml 1000 ml 900 ml Output Total 900 ml 900 ml Balance 350 ml 100 ml 900 ml medications Current Medications Medications Dose Ordered Sig/Yvette Route Start Time Stop Time Status Last Admin Dose Admin Aspirin 81 mg DAILY PO 09/06/24 10:00 09/11/24 09:59 81 MG Atorvastatin Calcium 40 mg HS PO 09/06/24 22:00 09/10/24 22:00 40 MG Trazodone HCl 100 mg HS PO 09/06/24 22:00 09/10/24 22:00 100 MG Clopidogrel Bisulfate 75 mg DAILY PO 09/06/24 10:00 09/11/24 09:59 75 MG Diagnostic Test (Pha) 1 strip ACHS 09/06/24 07:00 09/11/24 11:33 1 STRIP Insulin Human Regular ACHS SC 09/06/24 07:00 09/11/24 11:33 3 UNITS Dextrose 50 ml UD PRN IV 09/06/24 01:00 Sodium Chloride 10 ml Q8HR IV 09/06/24 06:00 09/11/24 05:49 10 ML Ondansetron HCl 4 mg Q4HP PRN IV 09/06/24 01:00 Docusate Sodium 100 mg BIDPRN PRN PO 09/06/24 01:00 Acetaminophen 650 mg Q6HP PRN PO 09/06/24 01:00 Nitroglycerin 0.4 mg Q5MINP PRN SL 09/06/24 01:00 Morphine Sulfate 2 mg Q30M PRN IV 09/06/24 01:00 09/06/24 04:15 2 MG Furosemide 20 mg BIDD IV 09/07/24 18:00 09/11/24 05:51 20 MG Ranolazine 500 mg BID PO 09/07/24 22:00 09/11/24 09:58 500 MG Metoprolol Tartrate 12.5 mg BID PO 09/07/24 22:00 09/10/24 11:40 12.5 MG Losartan Potassium 12.5 mg DAILY PO 09/08/24 10:00 09/11/24 09:58 12.5 MG Empaglifozin 10 mg DAILY PO 09/08/24 10:00 09/11/24 09:59 10 MG Enoxaparin Sodium 40 mg DAILY SC 09/08/24 10:00 09/11/24 10:00 40 MG Methylprednisolone Sodium Succinate 60 mg Q8HR IV 09/08/24 14:00 09/11/24 05:51 60 MG Vancomycin HCl 0 ml @ 0 mls/hr UD IV 09/09/24 12:30 Levofloxacin/ Dextrose 100 ml @ 100 mls/hr DAILY IV 09/09/24 12:30 09/11/24 10:00 100 MLS/HR Oxycodone/ Acetaminophen 2 tab Q6HP PRN PO 09/09/24 13:30 09/11/24 11:32 2 TAB Mupirocin 1 applic BID EACHNOSTRI 09/09/24 22:00 09/14/24 21:59 09/11/24 10:11 1 APPLIC Vancomycin HCl 200 ml @ 200 mls/hr Q12H IV 09/10/24 12:00 UNV objective GENERAL: Alert and oriented x 3. No acute distress. Morbidly obese. EYES: PERRL, EOMI. Anicteric. HENT: Moist mucous membranes. LUNGS: Decreased breath sounds. CARDIOVASCULAR: Regular rate and rhythm. ABDOMEN: Soft, nontender and nondistended. EXTREMITIES: +1 BLE pitting edema. NEUROLOGIC: No focal neurological deficits. SKIN: Warm, dry. laboratory and microbiology Laboratory Tests 09/11/24 05:17 Test 09/11/24 05:17 Range/Units Serum Glucose 177 H 74-106 mg/dL Problem List Acute on chronic decompensated HFpEF, NYHA Class III. Coronary artery disease status post multiple PTCAs with stent placement. Presence of micra leadless pacemaker. Hypertension. Dyslipidemia. Chronic pain syndrome. Morbid obesity. Assessment/Plan Continued all current supportive medical care. Aspirin,Plavix. Morphine and Oxycodone for pain management. DVT prophylactics. Diuretics with Lasix. IV antibiotics as ordered. Losartan. Nitro SL. Additional plan as per the hospital course. Dietary Evaluation Review Comments: 1[facility] 2) Refer [employer] for diabetes education Expected Outcomes/Goals: To meet >75% estimated needs Fu 3-5 days Plan discussed with: Patient ROHINI ABARCA MD Sep 11, 2024 13:08
[2024-09-12 06:50] LABS: Hematocrit 36.6 % (41.0-53.0); Hemoglobin 11.7 g/dL (13.5-17.5); Mean Corpuscular Hemoglobin 28.1 pg (28.0-32.0); Mean Corpuscular Volume 87.9 fL (80.0-100.0); Nucleated Red Blood Cells % 0.0 %
[2024-09-12 06:51] LABS: Chloride 104 mmol/L (98-107); Potassium 3.6 mmol/L (3.5-5.1); Sodium 143 mmol/L (136-145)
[2024-09-12 06:52] LABS: Anion Gap 8 (5-15); Calcium 9.5 mg/dL (8.7-10.4); Carbon Dioxide 31 mmol/L (20-31)
[2024-09-12 06:58] LABS: BUN/Creatinine Ratio 28.6 (10.0-20.0); Blood Urea Nitrogen 56 mg/dL (9-23); Glucose 180 mg/dL (74-106)
[2024-09-12 08:00] VITALS: PULSE 55; PULSE 56; RESP 18; O2SAT 95
[2024-09-12 09:00] VITALS: BP 144/71; PULSE 55; RESP 18; TEMP 97.9; O2SAT 95
--- NOTE | 2024-09-12 12:19 | DVHPN2 ---
Subjective The patient is seen and examined at bedside. Patient feel better today. Reviewed: Care Plan, H&P, Labs, Medications, Previous Orders, Radiology Changes from previous H/P or p: No Changes Eyes: No Pain, No Vision change, No Conjunctivae inflammation, No Eyelid inflammation, No Other, No Redness ENT: No Ear pain, No Ear discharge, No Nose pain, No Nose discharge, No Nose congestion, No Mouth pain, No Mouth swelling, No Throat pain, No Throat swelling, No Other Cardiovascular: Chest Pain; No Palpitations, No Orthopnea, No Paroxysmal Noc. Dyspnea, No Edema, No Lt Headedness, No Other Respiratory: Cough; No Dry; Shortness of breath; No SOB with excertion, No Wheezing, No Hemoptysis, No Pleuritic Pain, No Sputum, No Other Gastrointestinal: No Nausea, No Vomiting, No Abdominal Pain, No Diarrhea, No Constipation, No Melena, No Hematochezia, No Other Genitourinary: No Dysuria, No Frequency, No Incontinence, No Hematuria, No Retention, No Other Musculoskeletal: No other, No neck pain, No shoulder pain, No arm pain, No back pain, No hand pain, No leg pain, No foot pain Skin: No Rash, No Lesions, No Jaundice, No Bruising, No Other Objective Vitals Vital Signs Date Time Temp Pulse Resp B/P (MAP) Pulse Ox O2 Delivery O2 Flow Rate FiO2 09/12/24 09:00 97.9 55 18 144/71 (95) 95 97.9 09/12/24 08:00 Room Air* 0 21 Intake/Output Intake and Output 09/12/24 07:00 Intake Total 1875 ml Output Total 675 ml Balance 1200 ml Intake Oral 1775 ml IV Total 100 ml Output Urine Total 675 ml # Voids 5 # Bowel Movements 1 General Appearance: Alert, Oriented X3, Cooperative HEENT: Atraumatic, PERRLA, EOMI, Mucous membr. moist/pink Neck: Supple Lungs: Clear to auscultation Cardiovascular: Regular rate, Normal S1, Normal S2, No murmurs, Gallops, Rubs Abdomen: Normal bowel sounds, Soft Neuro: Cranial nerves 3-12 NL Psych/Mental Status: Mental status NL Medications Current Medications Medications Dose Ordered Sig/Yvette Route Start Time Stop Time Status Last Admin Dose Admin Aspirin 81 mg DAILY PO 09/06/24 10:00 09/12/24 08:46 81 MG Atorvastatin Calcium 40 mg HS PO 09/06/24 22:00 09/11/24 22:18 40 MG Trazodone HCl 100 mg HS PO 09/06/24 22:00 09/11/24 22:18 100 MG Clopidogrel Bisulfate 75 mg DAILY PO 09/06/24 10:00 09/12/24 08:46 75 MG Diagnostic Test (Pha) 1 strip ACHS 09/06/24 07:00 09/12/24 11:28 1 STRIP Insulin Human Regular ACHS SC 09/06/24 07:00 09/12/24 11:28 3 UNITS Dextrose 50 ml UD PRN IV 09/06/24 01:00 Sodium Chloride 10 ml Q8HR IV 09/06/24 06:00 09/12/24 05:16 10 ML Ondansetron HCl 4 mg Q4HP PRN IV 09/06/24 01:00 Docusate Sodium 100 mg BIDPRN PRN PO 09/06/24 01:00 Acetaminophen 650 mg Q6HP PRN PO 09/06/24 01:00 Nitroglycerin 0.4 mg Q5MINP PRN SL 09/06/24 01:00 Morphine Sulfate 2 mg Q30M PRN IV 09/06/24 01:00 09/06/24 04:15 2 MG Furosemide 20 mg BIDD IV 09/07/24 18:00 09/11/24 05:51 20 MG Ranolazine 500 mg BID PO 09/07/24 22:00 09/12/24 08:46 500 MG Metoprolol Tartrate 12.5 mg BID PO 09/07/24 22:00 09/12/24 08:47 12.5 MG Losartan Potassium 12.5 mg DAILY PO 09/08/24 10:00 09/12/24 08:47 12.5 MG Empaglifozin 10 mg DAILY PO 09/08/24 10:00 09/12/24 08:46 10 MG Enoxaparin Sodium 40 mg DAILY SC 09/08/24 10:00 09/12/24 08:47 40 MG Methylprednisolone Sodium Succinate 60 mg Q8HR IV 09/08/24 14:00 09/12/24 05:18 60 MG Vancomycin HCl 0 ml @ 0 mls/hr UD IV 09/09/24 12:30 Levofloxacin/ Dextrose 100 ml @ 100 mls/hr DAILY IV 09/09/24 12:30 09/12/24 08:48 100 MLS/HR Oxycodone/ Acetaminophen 2 tab Q6HP PRN PO 09/09/24 13:30 09/12/24 11:09 2 TAB Mupirocin 1 applic BID EACHNOSTRI 09/09/24 22:00 09/14/24 21:59 09/12/24 08:48 1 APPLIC Vancomycin HCl 200 ml @ 200 mls/hr Q12H IV 09/10/24 12:00 UNV Laboratory Results Laboratory Tests 09/12/24 05:41 Chemistry Test 09/12/24 05:41 Calcium Level 9.5 mg/dL (8.7-10.4) Microbiology Microbiology Date/Time Source Procedure Growth Status 09/07/24 18:30 Nose MRSA Screen - Final Methicillin Resistant S.aureus Complete 09/05/24 22:39 Blood Blood Culture - Final Staphylococcus epidermidis Complete Labs and/or images reviewed: Labs reviewed by me Assessment/Plan Assessment/Plan Chest pain Pneumonia secondary to Gram-positive and Gram-negative pneumonia Respiratory failure with hypoxia Generalized weakness COPD with acute exacerbation Bacteremia with staph epidermidis Continuing current management. DW with [employer] Assistant Manager, Dr Montesinos for potential GENO . Still waiting for GENO. If hide and skin fleshing machine operator think the patient doesn't need GENO, will order 2D echo Continuing with IV antibiotic. I will d/c rocephin and azithromax. I will start patient on Vancomycin IV pharmacy to dose and levaquin 500mg IV qday base on the sensitivity of the bacteria. Anticipate to repeat BC in a couple days. Continuing with nebulizer. Continue with Solu-Medrol 60 mg IV Q 8 hours. Will get PT to get the patient out of bed and ambulate. Discharge planning. This medical document was created using an electronic medical record system with M[employer]rency direct computerized dictation system. Although this document has been carefully reviewed, there may still be some phonetic and typographical errors. These areas are purely typographical due to imperfections of the software programs, and do not reflect any compromise in the patient's medical care. Plan discussed with: Patient Date of Service: Sep 12, 2024 Billing Provider: ARON PERLA MD Common Visit Codes: [id number] INP/OBS CARE(HIGH) ARON PERLA MD Sep 12, 2024 12:19
[2024-09-12 13:00] VITALS: BP 125/65; PULSE 74; RESP 18; TEMP 97.6; O2SAT 95
[2024-09-12 17:00] VITALS: BP 125/68; PULSE 58; RESP 17; TEMP 98.4; O2SAT 95
[2024-09-12] MEDS: VANCOMYCIN 500mg/100mL 100 ML IV ONE (18:29)
[2024-09-12 20:00] VITALS: PULSE 53; O2SAT 95
[2024-09-12 21:00] VITALS: BP 125/53; PULSE 54; RESP 17; TEMP 98.3; O2SAT 91
--- NOTE | 2024-09-12 23:54 | DVHPN2 ---
Progress Note - Dictate Date Seen: Sep 12, 2024 Medical Necessity Reason Pt with a Central, PICC or Fol: No Subjective Patient was seen and evaluated in follow up. Overnight, the patient refused routine repositioning. Patient is refusing Lasix, states it causes him urinary incontinence. WBC 14.1, BUN 56, PINKING MACHINE OPERATOR 1.96. Telemetry reviewed. vital signs Vital Sign Date Time Temp Pulse Resp B/P (MAP) Pulse Ox O2 Delivery O2 Flow Rate FiO2 09/12/24 09:00 97.9 55 18 144/71 (95) 95 97.9 09/12/24 08:00 Room Air* 0 21 Total Intake and Output 09/11/24 09/11/24 09/12/24 15:00 23:00 07:00 Intake Total 100 ml 775 ml 1000 ml Output Total 675 ml Balance 100 ml 775 ml 325 ml medications Current Medications Medications Dose Ordered Sig/Yvette Route Start Time Stop Time Status Last Admin Dose Admin Aspirin 81 mg DAILY PO 09/06/24 10:00 09/12/24 08:46 81 MG Atorvastatin Calcium 40 mg HS PO 09/06/24 22:00 09/11/24 22:18 40 MG Trazodone HCl 100 mg HS PO 09/06/24 22:00 09/11/24 22:18 100 MG Clopidogrel Bisulfate 75 mg DAILY PO 09/06/24 10:00 09/12/24 08:46 75 MG Diagnostic Test (Pha) 1 strip ACHS 09/06/24 07:00 09/12/24 11:28 1 STRIP Insulin Human Regular ACHS SC 09/06/24 07:00 09/12/24 11:28 3 UNITS Dextrose 50 ml UD PRN IV 09/06/24 01:00 Sodium Chloride 10 ml Q8HR IV 09/06/24 06:00 09/12/24 05:16 10 ML Ondansetron HCl 4 mg Q4HP PRN IV 09/06/24 01:00 Docusate Sodium 100 mg BIDPRN PRN PO 09/06/24 01:00 Acetaminophen 650 mg Q6HP PRN PO 09/06/24 01:00 Nitroglycerin 0.4 mg Q5MINP PRN SL 09/06/24 01:00 Morphine Sulfate 2 mg Q30M PRN IV 09/06/24 01:00 09/06/24 04:15 2 MG Furosemide 20 mg BIDD IV 09/07/24 18:00 09/11/24 05:51 20 MG Ranolazine 500 mg BID PO 09/07/24 22:00 09/12/24 08:46 500 MG Metoprolol Tartrate 12.5 mg BID PO 09/07/24 22:00 09/12/24 08:47 12.5 MG Losartan Potassium 12.5 mg DAILY PO 09/08/24 10:00 09/12/24 08:47 12.5 MG Empaglifozin 10 mg DAILY PO 09/08/24 10:00 09/12/24 08:46 10 MG Enoxaparin Sodium 40 mg DAILY SC 09/08/24 10:00 09/12/24 08:47 40 MG Methylprednisolone Sodium Succinate 60 mg Q8HR IV 09/08/24 14:00 09/12/24 05:18 60 MG Vancomycin HCl 0 ml @ 0 mls/hr UD IV 09/09/24 12:30 Levofloxacin/ Dextrose 100 ml @ 100 mls/hr DAILY IV 09/09/24 12:30 09/12/24 08:48 100 MLS/HR Oxycodone/ Acetaminophen 2 tab Q6HP PRN PO 09/09/24 13:30 09/12/24 11:09 2 TAB Mupirocin 1 applic BID EACHNOSTRI 09/09/24 22:00 09/14/24 21:59 09/12/24 08:48 1 APPLIC Vancomycin HCl 200 ml @ 200 mls/hr Q12H IV 09/10/24 12:00 UNV objective GENERAL: Alert and oriented x 3. No acute distress. Morbidly obese. EYES: PERRL, EOMI. Anicteric. HENT: Moist mucous membranes. LUNGS: Decreased breath sounds. CARDIOVASCULAR: Regular rate and rhythm. ABDOMEN: Soft, nontender and nondistended. EXTREMITIES: +1 BLE pitting edema. NEUROLOGIC: No focal neurological deficits. SKIN: Warm, dry. laboratory and microbiology Laboratory Tests 09/12/24 05:41 Test 09/12/24 05:41 Range/Units Serum Glucose 180 H 74-106 mg/dL Problem List Acute on chronic decompensated HFpEF, NYHA Class III. Coronary artery disease status post multiple PTCAs with stent placement. Presence of micra leadless pacemaker. Hypertension. Dyslipidemia. Chronic pain syndrome. Morbid obesity. Assessment/Plan Continued all current supportive medical care. Aspirin, Metoprolol,Plavix. Morphine and Oxycodone for pain management. DVT prophylactics. Diuretics with Lasix. IV antibiotics as ordered. Losartan. Nitro SL. Additional plan as per the hospital course. Dietary Evaluation Review Comments: 1) [facility] 60 + cardiac diet 2) Refer Business Services Specialist Sales for diabetes education Expected Outcomes/Goals: To meet >75% estimated needs Fu 3-5 days Plan discussed with: Patient ROHINI ABARCA MD Sep 12, 2024 12:41
[2024-09-13] VITALS (8 sets, daily range): BP systolic 109–138; BP diastolic 60–74; PULSE 52–95; RESP 15–18; TEMP 97–97.7; O2SAT 93–97
[2024-09-13 05:26] LABS: Hematocrit 35.0 % (41.0-53.0); Hemoglobin 11.5 g/dL (13.5-17.5); Mean Corpuscular Hemoglobin 28.8 pg (28.0-32.0); Mean Corpuscular Volume 87.9 fL (80.0-100.0); Nucleated Red Blood Cells % 0.0 %
[2024-09-13 05:38] LABS: Chloride 107 mmol/L (98-107); Sodium 144 mmol/L (136-145)
[2024-09-13 05:39] LABS: Anion Gap 8 (5-15); Calcium 9.1 mg/dL (8.7-10.4); Carbon Dioxide 29 mmol/L (20-31)
[2024-09-13 05:44] LABS: BUN/Creatinine Ratio 31.2 (10.0-20.0)
[2024-09-13 05:48] LABS: Blood Urea Nitrogen 58 mg/dL (9-23); Glucose 213 mg/dL (74-106); Potassium 3.3 mmol/L (3.5-5.1)
[2024-09-13] MEDS: VANCOMYCIN 500mg/100mL 100 ML IV ONE (13:08)
--- NOTE | 2024-09-13 15:53 | DVHPN2 ---
Subjective The patient is seen and examined at bedside. Patient feel better today. Reviewed: Care Plan, H&P, Labs, Medications, Previous Orders, Radiology Changes from previous H/P or p: No Changes Eyes: No Pain, No Vision change, No Conjunctivae inflammation, No Eyelid inflammation, No Other, No Redness ENT: No Ear pain, No Ear discharge, No Nose pain, No Nose discharge, No Nose congestion, No Mouth pain, No Mouth swelling, No Throat pain, No Throat swelling, No Other Cardiovascular: Chest Pain; No Palpitations, No Orthopnea, No Paroxysmal Noc. Dyspnea, No Edema, No Lt Headedness, No Other Respiratory: Cough; No Dry; Shortness of breath; No SOB with excertion, No Wheezing, No Hemoptysis, No Pleuritic Pain, No Sputum, No Other Gastrointestinal: No Nausea, No Vomiting, No Abdominal Pain, No Diarrhea, No Constipation, No Melena, No Hematochezia, No Other Genitourinary: No Dysuria, No Frequency, No Incontinence, No Hematuria, No Retention, No Other Musculoskeletal: No other, No neck pain, No shoulder pain, No arm pain, No back pain, No hand pain, No leg pain, No foot pain Skin: No Rash, No Lesions, No Jaundice, No Bruising, No Other Objective Vitals Vital Signs Date Time Temp Pulse Resp B/P (MAP) Pulse Ox O2 Delivery O2 Flow Rate FiO2 09/13/24 12:44 97.4 61 17 135/74 (94) 96 97.4 09/13/24 08:00 Room Air* 0 21 Intake/Output Intake and Output 09/13/24 07:00 Intake Total 1220 ml Output Total 1280 ml Balance -60 ml Intake Oral 1120 ml IV Total 100 ml Output Urine Total 1280 ml # Voids 4 # Bowel Movements 1 General Appearance: Alert, Oriented X3, Cooperative HEENT: Atraumatic, PERRLA, EOMI, Mucous membr. moist/pink Neck: Supple Lungs: Clear to auscultation Cardiovascular: Regular rate, Normal S1, Normal S2, No murmurs, Gallops, Rubs Abdomen: Normal bowel sounds, Soft Neuro: Cranial nerves 3-12 NL Psych/Mental Status: Mental status NL Medications Current Medications Medications Dose Ordered Sig/Yvette Route Start Time Stop Time Status Last Admin Dose Admin Aspirin 81 mg DAILY PO 09/06/24 10:00 09/13/24 08:18 81 MG Atorvastatin Calcium 40 mg HS PO 09/06/24 22:00 09/12/24 22:58 40 MG Trazodone HCl 100 mg HS PO 09/06/24 22:00 09/12/24 22:58 100 MG Clopidogrel Bisulfate 75 mg DAILY PO 09/06/24 10:00 09/13/24 08:17 75 MG Diagnostic Test (Pha) 1 strip ACHS 09/06/24 07:00 09/13/24 11:47 1 STRIP Insulin Human Regular ACHS SC 09/06/24 07:00 09/13/24 11:46 4 UNITS Dextrose 50 ml UD PRN IV 09/06/24 01:00 Sodium Chloride 10 ml Q8HR IV 09/06/24 06:00 09/13/24 13:08 10 ML Ondansetron HCl 4 mg Q4HP PRN IV 09/06/24 01:00 Docusate Sodium 100 mg BIDPRN PRN PO 09/06/24 01:00 Acetaminophen 650 mg Q6HP PRN PO 09/06/24 01:00 Nitroglycerin 0.4 mg Q5MINP PRN SL 09/06/24 01:00 Morphine Sulfate 2 mg Q30M PRN IV 09/06/24 01:00 09/06/24 04:15 2 MG Furosemide 20 mg BIDD IV 09/07/24 18:00 09/13/24 06:41 20 MG Ranolazine 500 mg BID PO 09/07/24 22:00 09/13/24 08:17 500 MG Metoprolol Tartrate 12.5 mg BID PO 09/07/24 22:00 09/12/24 08:47 12.5 MG Losartan Potassium 12.5 mg DAILY PO 09/08/24 10:00 09/13/24 08:18 12.5 MG Empaglifozin 10 mg DAILY PO 09/08/24 10:00 09/13/24 08:17 10 MG Enoxaparin Sodium 40 mg DAILY SC 09/08/24 10:00 09/13/24 08:18 40 MG Methylprednisolone Sodium Succinate 60 mg Q8HR IV 09/08/24 14:00 09/13/24 13:08 60 MG Vancomycin HCl 0 ml @ 0 mls/hr UD IV 09/09/24 12:30 Levofloxacin/ Dextrose 100 ml @ 100 mls/hr DAILY IV 09/09/24 12:30 09/13/24 08:19 100 MLS/HR Oxycodone/ Acetaminophen 2 tab Q6HP PRN PO 09/09/24 13:30 09/13/24 15:15 2 TAB Mupirocin 1 applic BID EACHNOSTRI 09/09/24 22:00 09/14/24 21:59 09/13/24 08:19 1 APPLIC Vancomycin HCl 200 ml @ 200 mls/hr Q12H IV 09/10/24 12:00 UNV Laboratory Results Laboratory Tests 09/13/24 04:53 Chemistry Test 09/13/24 04:53 Calcium Level 9.1 mg/dL (8.7-10.4) Microbiology Microbiology Date/Time Source Procedure Growth Status 09/11/24 14:30 Blood Blood Culture - Preliminary NO GROWTH AFTER 48 HOURS OF INCUBATION. Resulted 09/07/24 18:30 Nose MRSA Screen - Final Methicillin Resistant S.aureus Complete Labs and/or images reviewed: Labs reviewed by me Assessment/Plan Assessment/Plan Chest pain Pneumonia secondary to Gram-positive and Gram-negative pneumonia Respiratory failure with hypoxia Generalized weakness COPD with acute exacerbation Bacteremia with staph epidermidis Continuing current management. GENO on sunday Will review 2D echo. Continuing with IV antibiotic. I will d/c rocephin and azithromax. I will start patient on Vancomycin IV pharmacy to dose and levaquin 500mg IV qday base on the sensitivity of the bacteria. Repeat blood cultures negative Continuing with nebulizer. Continue with Solu-Medrol 60 mg IV Q 8 hours. Will get PT to get the patient out of bed and ambulate. Discharge planning. This medical document was created using an electronic medical record system with [employer] direct computerized dictation system. Although this document has been carefully reviewed, there may still be some phonetic and typographical errors. These areas are purely typographical due to imperfections of the software programs, and do not reflect any compromise in the patient's medical care. Plan discussed with: Patient My Orders Orders - ARON PERLA MD Procedure Category Date Status Time Vancomycin,Random LAB 09/14/24 Verified 05:00 Echo 2d Mode Cardiac US 09/13/24 Verified DOP 15:51 Date of Service: Sep 13, 2024 Billing Provider: ARON PERLA MD Common Visit Codes: [id number] INP/OBS CARE(HIGH) ARON PERLA MD Sep 13, 2024 15:53
[2024-09-13] MEDS: POTASSIUM CHL 20 Meq TABLET PO ONE (17:32)
--- NOTE | 2024-09-13 19:42 | DVHSR ---
APPROVED REPORT EXAM: LIMITED Two-dimensional and color doppler echocardiogram. Blood Pressure: 144/71 mmHg INDICATION LIMITED FOR ENDOCARDITIS RISK FACTORS Obesity: Height: 5'9, Weight: 282 DIMENSIONS EF (%) 60.0 (55-70%)Rt. Atrium (1.9-4.0cm)Asc. Aorta cm Mitral Valve MitralMitral Stenosis E/A ratio0.02D MVAcm2 Other Information Quality : Technically LimitedRhythm : Technically limited study due to LIMITED FOR ENDOCARDITIS, patient position.body habitus. pt refused to turn on left side or lay down. Conclusion Technically good study. Sinus bradycardia. Aortic root enlargement. With severe concentric LVH. The mitral valve appears to be structurally normal. There is thickening of the aortic leaflets howev er there is appears to be adequate excursion. Left ventricular function appears preserved. EF is about 60% with normal RV function. There appears to be mild aortic insufficiency. No intracardiac masses thrombi or vegetations discernible.
--- NOTE | 2024-09-13 23:56 | DVHPN2 ---
Progress Note - Dictate Date Seen: Sep 13, 2024 Medical Necessity Reason Pt with a Central, PICC or Fol: No Subjective Patient was seen and evaluated in follow up. No overnight events. Patient complains of generalized discomfort. WBC 12.8, K 3.3, BUN 58, PILOT SUBMERSIBLE 1.86, GLUC 216. Telemetry reviewed. vital signs Vital Sign Date Time Temp Pulse Resp B/P (MAP) Pulse Ox O2 Delivery O2 Flow Rate FiO2 09/13/24 09:00 97.5 63 17 138/68 (91) 96 97.5 09/13/24 08:00 Room Air* 0 21 Total Intake and Output 09/12/24 09/12/24 09/13/24 15:00 23:00 07:00 Intake Total 100 ml 400 ml 720 ml Output Total 250 ml 350 ml 680 ml Balance -150 ml 50 ml 40 ml medications Current Medications Medications Dose Ordered Sig/Yvette Route Start Time Stop Time Status Last Admin Dose Admin Aspirin 81 mg DAILY PO 09/06/24 10:00 09/13/24 08:18 81 MG Atorvastatin Calcium 40 mg HS PO 09/06/24 22:00 09/12/24 22:58 40 MG Trazodone HCl 100 mg HS PO 09/06/24 22:00 09/12/24 22:58 100 MG Clopidogrel Bisulfate 75 mg DAILY PO 09/06/24 10:00 09/13/24 08:17 75 MG Diagnostic Test (Pha) 1 strip ACHS 09/06/24 07:00 09/13/24 11:47 1 STRIP Insulin Human Regular ACHS SC 09/06/24 07:00 09/13/24 11:46 4 UNITS Dextrose 50 ml UD PRN IV 09/06/24 01:00 Sodium Chloride 10 ml Q8HR IV 09/06/24 06:00 09/13/24 06:23 10 ML Ondansetron HCl 4 mg Q4HP PRN IV 09/06/24 01:00 Docusate Sodium 100 mg BIDPRN PRN PO 09/06/24 01:00 Acetaminophen 650 mg Q6HP PRN PO 09/06/24 01:00 Nitroglycerin 0.4 mg Q5MINP PRN SL 09/06/24 01:00 Morphine Sulfate 2 mg Q30M PRN IV 09/06/24 01:00 09/06/24 04:15 2 MG Furosemide 20 mg BIDD IV 09/07/24 18:00 09/13/24 06:41 20 MG Ranolazine 500 mg BID PO 09/07/24 22:00 09/13/24 08:17 500 MG Metoprolol Tartrate 12.5 mg BID PO 09/07/24 22:00 09/12/24 08:47 12.5 MG Losartan Potassium 12.5 mg DAILY PO 09/08/24 10:00 09/13/24 08:18 12.5 MG Empaglifozin 10 mg DAILY PO 09/08/24 10:00 09/13/24 08:17 10 MG Enoxaparin Sodium 40 mg DAILY SC 09/08/24 10:00 09/13/24 08:18 40 MG Methylprednisolone Sodium Succinate 60 mg Q8HR IV 09/08/24 14:00 09/13/24 06:23 60 MG Vancomycin HCl 0 ml @ 0 mls/hr UD IV 09/09/24 12:30 Levofloxacin/ Dextrose 100 ml @ 100 mls/hr DAILY IV 09/09/24 12:30 09/13/24 08:19 100 MLS/HR Oxycodone/ Acetaminophen 2 tab Q6HP PRN PO 09/09/24 13:30 09/13/24 08:19 2 TAB Mupirocin 1 applic BID EACHNOSTRI 09/09/24 22:00 09/14/24 21:59 09/13/24 08:19 1 APPLIC Vancomycin HCl 200 ml @ 200 mls/hr Q12H IV 09/10/24 12:00 UNV objective GENERAL: Alert and oriented x 3. No acute distress. Morbidly obese. EYES: PERRL, EOMI. Anicteric. HENT: Moist mucous membranes. LUNGS: Decreased breath sounds. CARDIOVASCULAR: Regular rate and rhythm. ABDOMEN: Soft, nontender and nondistended. EXTREMITIES: +1 BLE pitting edema. NEUROLOGIC: No focal neurological deficits. SKIN: Warm, dry. laboratory and microbiology Laboratory Tests 09/13/24 04:53 Test 09/13/24 04:53 Range/Units Serum Glucose 213 H 74-106 mg/dL Problem List Acute on chronic decompensated HFpEF, NYHA Class III. Coronary artery disease status post multiple PTCAs with stent placement. Presence of micra leadless pacemaker. Hypertension. Dyslipidemia. Chronic pain syndrome. Morbid obesity. Assessment/Plan Continued all current supportive medical care. Aspirin,Plavix. Tylenol and Oxycodone for pain management. DVT prophylactics. Diuretics with Lasix. IV antibiotics as ordered. Losartan. Nitro SL. Additional plan as per the hospital course. Dietary Evaluation Review Comments: [facility] 2) Refer [employer] for diabetes education Expected Outcomes/Goals: To meet >75% estimated needs Fu 3-5 days Plan discussed with: Patient ROHINI ABARCA MD Sep 13, 2024 12:11
[2024-09-14] VITALS (8 sets, daily range): BP systolic 107–159; BP diastolic 54–87; PULSE 54–78; RESP 16–22; TEMP 97.5–98.3; O2SAT 95–100
[2024-09-14 09:29] LABS: Hematocrit 37.3 % (41.0-53.0); Hemoglobin 12.0 g/dL (13.5-17.5); Mean Corpuscular Hemoglobin 28.4 pg (28.0-32.0); Mean Corpuscular Volume 88.6 fL (80.0-100.0); Nucleated Red Blood Cells % 0.1 %
[2024-09-14 09:40] LABS: Anion Gap 9 (5-15); Carbon Dioxide 28 mmol/L (20-31); Potassium 3.8 mmol/L (3.5-5.1); Sodium 144 mmol/L (136-145)
[2024-09-14 09:41] LABS: Calcium 9.1 mg/dL (8.7-10.4)
[2024-09-14 09:46] LABS: BUN/Creatinine Ratio 32.0 (10.0-20.0); Blood Urea Nitrogen 64 mg/dL (9-23); Chloride 107 mmol/L (98-107); Glucose 233 mg/dL (74-106)
[2024-09-14] MEDS ORDERED: VANCOMYCIN 750MG KIT 100 ML IV ONE (10:30)
--- NOTE | 2024-09-14 12:35 | DVHPN2 ---
Subjective The patient is seen and examined at bedside. Patient feel better today. Reviewed: Care Plan, H&P, Labs, Medications, Previous Orders, Radiology Changes from previous H/P or p: No Changes Eyes: No Pain, No Vision change, No Conjunctivae inflammation, No Eyelid inflammation, No Other, No Redness ENT: No Ear pain, No Ear discharge, No Nose pain, No Nose discharge, No Nose congestion, No Mouth pain, No Mouth swelling, No Throat pain, No Throat swelling, No Other Cardiovascular: Chest Pain; No Palpitations, No Orthopnea, No Paroxysmal Noc. Dyspnea, No Edema, No Lt Headedness, No Other Respiratory: Cough; No Dry; Shortness of breath; No SOB with excertion, No Wheezing, No Hemoptysis, No Pleuritic Pain, No Sputum, No Other Gastrointestinal: No Nausea, No Vomiting, No Abdominal Pain, No Diarrhea, No Constipation, No Melena, No Hematochezia, No Other Genitourinary: No Dysuria, No Frequency, No Incontinence, No Hematuria, No Retention, No Other Musculoskeletal: No other, No neck pain, No shoulder pain, No arm pain, No back pain, No hand pain, No leg pain, No foot pain Skin: No Rash, No Lesions, No Jaundice, No Bruising, No Other Objective Vitals Vital Signs Date Time Temp Pulse Resp B/P (MAP) Pulse Ox O2 Delivery O2 Flow Rate FiO2 09/14/24 11:28 107/62 09/14/24 10:00 55 09/14/24 09:00 97.5 22 95 97.5 09/13/24 20:00 Room Air* 0 21 Intake/Output Intake and Output 09/14/24 07:00 Intake Total 1925 ml Output Total 1525 ml Balance 400 ml Intake Oral 1725 ml IV Total 200 ml Output Urine Total 1525 ml General Appearance: Alert, Oriented X3, Cooperative HEENT: Atraumatic, PERRLA, EOMI, Mucous membr. moist/pink Neck: Supple Lungs: Clear to auscultation Cardiovascular: Regular rate, Normal S1, Normal S2, No murmurs, Gallops, Rubs Abdomen: Normal bowel sounds, Soft Neuro: Cranial nerves 3-12 NL Psych/Mental Status: Mental status NL Medications Current Medications Medications Dose Ordered Sig/Yvette Route Start Time Stop Time Status Last Admin Dose Admin Aspirin 81 mg DAILY PO 09/06/24 10:00 09/14/24 11:27 81 MG Atorvastatin Calcium 40 mg HS PO 09/06/24 22:00 09/13/24 21:10 40 MG Trazodone HCl 100 mg HS PO 09/06/24 22:00 09/13/24 21:10 100 MG Clopidogrel Bisulfate 75 mg DAILY PO 09/06/24 10:00 09/14/24 11:26 75 MG Diagnostic Test (Pha) 1 strip ACHS 09/06/24 07:00 09/14/24 11:38 1 STRIP Insulin Human Regular ACHS SC 09/06/24 07:00 09/14/24 11:43 3 UNITS Dextrose 50 ml UD PRN IV 09/06/24 01:00 Sodium Chloride 10 ml Q8HR IV 09/06/24 06:00 09/14/24 05:19 10 ML Ondansetron HCl 4 mg Q4HP PRN IV 09/06/24 01:00 Docusate Sodium 100 mg BIDPRN PRN PO 09/06/24 01:00 Acetaminophen 650 mg Q6HP PRN PO 09/06/24 01:00 Nitroglycerin 0.4 mg Q5MINP PRN SL 09/06/24 01:00 Morphine Sulfate 2 mg Q30M PRN IV 09/06/24 01:00 09/06/24 04:15 2 MG Furosemide 20 mg BIDD IV 09/07/24 18:00 09/14/24 05:18 20 MG Ranolazine 500 mg BID PO 09/07/24 22:00 09/14/24 11:27 500 MG Metoprolol Tartrate 12.5 mg BID PO 09/07/24 22:00 09/13/24 21:11 12.5 MG Losartan Potassium 12.5 mg DAILY PO 09/08/24 10:00 09/14/24 11:28 12.5 MG Empaglifozin 10 mg DAILY PO 09/08/24 10:00 09/14/24 11:26 10 MG Enoxaparin Sodium 40 mg DAILY SC 09/08/24 10:00 09/14/24 11:28 40 MG Methylprednisolone Sodium Succinate 60 mg Q8HR IV 09/08/24 14:00 09/14/24 05:16 60 MG Vancomycin HCl 0 ml @ 0 mls/hr UD IV 09/09/24 12:30 Levofloxacin/ Dextrose 100 ml @ 100 mls/hr DAILY IV 09/09/24 12:30 09/14/24 11:29 100 MLS/HR Oxycodone/ Acetaminophen 2 tab Q6HP PRN PO 09/09/24 13:30 09/14/24 11:29 2 TAB Mupirocin 1 applic BID EACHNOSTRI 09/09/24 22:00 09/14/24 21:59 09/14/24 10:00 1 APPLIC Vancomycin HCl 200 ml @ 200 mls/hr Q12H IV 09/10/24 12:00 UNV Laboratory Results Laboratory Tests 09/14/24 08:35 Chemistry Test 09/14/24 08:35 Calcium Level 9.1 mg/dL (8.7-10.4) Microbiology Microbiology Date/Time Source Procedure Growth Status 09/11/24 14:30 Blood Blood Culture - Preliminary NO GROWTH AFTER 48 HOURS OF INCUBATION. Resulted 09/07/24 18:30 Nose MRSA Screen - Final Methicillin Resistant S.aureus Complete Labs and/or images reviewed: Labs reviewed by me Assessment/Plan Assessment/Plan Chest pain Pneumonia secondary to Gram-positive and Gram-negative pneumonia Respiratory failure with hypoxia Generalized weakness COPD with acute exacerbation Bacteremia with staph epidermidis Continuing current management. GENO on sunday Will review 2D echo. Continuing with IV antibiotic. I will d/c rocephin and azithromax. I will start patient on Vancomycin IV pharmacy to dose and levaquin 500mg IV qday base on the sensitivity of the bacteria. Repeat blood cultures negative Continuing with nebulizer. Continue with Solu-Medrol 60 mg IV Q 8 hours. Will get PT to get the patient out of bed and ambulate. Discharge planning. This medical document was created using an electronic medical record system with [employer] direct computerized dictation system. Although this document has been carefully reviewed, there may still be some phonetic and typographical errors. These areas are purely typographical due to imperfections of the software programs, and do not reflect any compromise in the patient's medical care. Plan discussed with: Patient My Orders Orders - ARON PERLA MD Procedure Category Date Status Time Vancomycin Per ELLIE 09/14/24 In Process Pharmacy Protoc 10:28 Vancomycin,Random LAB 09/15/24 Verified 04:00 Basic Metabolic Panel LAB 09/15/24 Verified 04:00 Date of Service: Sep 14, 2024 Billing Provider: ARON PERLA MD Common Visit Codes: [id number] INP/OBS CARE(HIGH) ARON PERLA MD Sep 14, 2024 12:35
[2024-09-14] MEDS: VANCOMYCIN 750mg/150ml 150 ML IV ONE (13:00)
--- NOTE | 2024-09-14 23:33 | DVHPN2 ---
Progress Note - Dictate Date Seen: Sep 14, 2024 Medical Necessity Reason Pt with a Central, PICC or Fol: No Subjective Patient was seen and evaluated in follow up. Patient reports feeling better today. WBC 14.2, BUN 64, [employer] 2. Telemetry reviewed. vital signs Vital Sign Date Time Temp Pulse Resp B/P (MAP) Pulse Ox O2 Delivery O2 Flow Rate FiO2 09/14/24 11:28 107/62 09/14/24 10:00 55 09/14/24 09:00 97.5 22 95 97.5 09/13/24 20:00 Room Air* 0 21 Total Intake and Output 09/13/24 09/13/24 09/14/24 15:00 23:00 07:00 Intake Total 200 ml 1075 ml 650 ml Output Total 925 ml 600 ml Balance 200 ml 150 ml 50 ml medications Current Medications Medications Dose Ordered Sig/Yvette Route Start Time Stop Time Status Last Admin Dose Admin Aspirin 81 mg DAILY PO 09/06/24 10:00 09/14/24 11:27 81 MG Atorvastatin Calcium 40 mg HS PO 09/06/24 22:00 09/13/24 21:10 40 MG Trazodone HCl 100 mg HS PO 09/06/24 22:00 09/13/24 21:10 100 MG Clopidogrel Bisulfate 75 mg DAILY PO 09/06/24 10:00 09/14/24 11:26 75 MG Diagnostic Test (Pha) 1 strip ACHS 09/06/24 07:00 09/14/24 11:38 1 STRIP Insulin Human Regular ACHS SC 09/06/24 07:00 09/14/24 11:43 3 UNITS Dextrose 50 ml UD PRN IV 09/06/24 01:00 Sodium Chloride 10 ml Q8HR IV 09/06/24 06:00 09/14/24 05:19 10 ML Ondansetron HCl 4 mg Q4HP PRN IV 09/06/24 01:00 Docusate Sodium 100 mg BIDPRN PRN PO 09/06/24 01:00 Acetaminophen 650 mg Q6HP PRN PO 09/06/24 01:00 Nitroglycerin 0.4 mg Q5MINP PRN SL 09/06/24 01:00 Morphine Sulfate 2 mg Q30M PRN IV 09/06/24 01:00 09/06/24 04:15 2 MG Furosemide 20 mg BIDD IV 09/07/24 18:00 09/14/24 05:18 20 MG Ranolazine 500 mg BID PO 09/07/24 22:00 09/14/24 11:27 500 MG Metoprolol Tartrate 12.5 mg BID PO 09/07/24 22:00 09/13/24 21:11 12.5 MG Losartan Potassium 12.5 mg DAILY PO 09/08/24 10:00 09/14/24 11:28 12.5 MG Empaglifozin 10 mg DAILY PO 09/08/24 10:00 09/14/24 11:26 10 MG Enoxaparin Sodium 40 mg DAILY SC 09/08/24 10:00 09/14/24 11:28 40 MG Methylprednisolone Sodium Succinate 60 mg Q8HR IV 09/08/24 14:00 09/14/24 05:16 60 MG Vancomycin HCl 0 ml @ 0 mls/hr UD IV 09/09/24 12:30 Levofloxacin/ Dextrose 100 ml @ 100 mls/hr DAILY IV 09/09/24 12:30 09/14/24 11:29 100 MLS/HR Oxycodone/ Acetaminophen 2 tab Q6HP PRN PO 09/09/24 13:30 09/14/24 11:29 2 TAB Mupirocin 1 applic BID EACHNOSTRI 09/09/24 22:00 09/14/24 21:59 09/14/24 10:00 1 APPLIC Vancomycin HCl 200 ml @ 200 mls/hr Q12H IV 09/10/24 12:00 UNV objective GENERAL: Alert and oriented x 3. No acute distress. Morbidly obese. EYES: PERRL, EOMI. Anicteric. HENT: Moist mucous membranes. LUNGS: Decreased breath sounds. CARDIOVASCULAR: Regular rate and rhythm. ABDOMEN: Soft, nontender and nondistended. EXTREMITIES: +1 BLE pitting edema. NEUROLOGIC: No focal neurological deficits. SKIN: Warm, dry. laboratory and microbiology Laboratory Tests 09/14/24 08:35 Test 09/14/24 08:35 Range/Units Serum Glucose 233 H 74-106 mg/dL Problem List Acute on chronic decompensated HFpEF, NYHA Class III. Coronary artery disease status post multiple PTCAs with stent placement. Presence of micra leadless pacemaker. Hypertension. Dyslipidemia. Chronic pain syndrome. Morbid obesity. Assessment/Plan Continued all current supportive medical care. Aspirin, Plavix. Oxycodone for pain management. DVT prophylactics. Diuretics with Lasix. IV antibiotics as ordered. Losartan. Nitro SL. Additional plan as per the hospital course. Dietary Evaluation Review Comments: 1) CCHO 60 + cardiac diet 2) Refer Material [employer] for diabetes education Expected Outcomes/Goals: To meet >75% estimated needs Fu 3-5 days Plan discussed with: Patient ROHINI ABARCA MD Sep 14, 2024 13:05
[2024-09-15] VITALS (11 sets, daily range): BP systolic 103–140; BP diastolic 52–73; PULSE 53–75; RESP 16–22; TEMP 97.7–98.4; O2SAT 94–100
[2024-09-15 04:03] LABS: Urine Budding Yeast OCCASIONAL /hpf (None Seen); Urine Protein, UAD Negative (Negative)
[2024-09-15 04:03] LABS: Potassium 4.3 mmol/L (3.5-5.1); Sodium 142 mmol/L (136-145)
[2024-09-15 04:04] LABS: Anion Gap 7 (5-15); Carbon Dioxide 25 mmol/L (20-31)
[2024-09-15 04:09] LABS: BUN/Creatinine Ratio 29.5 (10.0-20.0)
[2024-09-15 04:33] LABS: Blood Urea Nitrogen 56 mg/dL (9-23); Calcium 8.3 mg/dL (8.7-10.4); Chloride 110 mmol/L (98-107); Glucose 208 mg/dL (74-106)
[2024-09-15 06:33] LABS: Hematocrit 36.8 % (41.0-53.0); Hemoglobin 11.6 g/dL (13.5-17.5); Mean Corpuscular Hemoglobin 28.1 pg (28.0-32.0); Mean Corpuscular Volume 89.2 fL (80.0-100.0); Nucleated Red Blood Cells % 0.0 %
[2024-09-15 07:14] LABS: INR 1.01 (0.9-1.15); Partial Thromboplastin Time 25.3 SEC (24.5-34.5); Prothrombin Time 10.7 sec (9.3-11.8)
[2024-09-15] MEDS: MIDAZOLAM HCL 2MG/2ML 2ml VIAL (1mg/ml) IV ONE (07:15)
[2024-09-15] MEDS: LIDOCAINE VISCOUS 2% 15ML UD PO ONE (07:15)
[2024-09-15] MEDS: fentaNYL CITRATE 100 MCG/2 ML VL IV ONE (11:26)
--- NOTE | 2024-09-15 11:30 | DVHPN2 ---
Subjective The patient is seen and examined at bedside. Status post GENO Reviewed: Care Plan, H&P, Labs, Medications, Previous Orders, Radiology Changes from previous H/P or p: No Changes Eyes: No Pain, No Vision change, No Conjunctivae inflammation, No Eyelid inflammation, No Other, No Redness ENT: No Ear pain, No Ear discharge, No Nose pain, No Nose discharge, No Nose congestion, No Mouth pain, No Mouth swelling, No Throat pain, No Throat swelling, No Other Cardiovascular: Chest Pain; No Palpitations, No Orthopnea, No Paroxysmal Noc. Dyspnea, No Edema, No Lt Headedness, No Other Respiratory: Cough; No Dry; Shortness of breath; No SOB with excertion, No Wheezing, No Hemoptysis, No Pleuritic Pain, No Sputum, No Other Gastrointestinal: No Nausea, No Vomiting, No Abdominal Pain, No Diarrhea, No Constipation, No Melena, No Hematochezia, No Other Genitourinary: No Dysuria, No Frequency, No Incontinence, No Hematuria, No Retention, No Other Musculoskeletal: No other, No neck pain, No shoulder pain, No arm pain, No back pain, No hand pain, No leg pain, No foot pain Skin: No Rash, No Lesions, No Jaundice, No Bruising, No Other Objective Vitals Vital Signs Date Time Temp Pulse Resp B/P (MAP) Pulse Ox O2 Delivery O2 Flow Rate FiO2 09/15/24 08:57 98.1 75 16 121/67 (85) 100 98.1 09/14/24 20:00 Room Air* 0 21 Intake/Output Intake and Output 09/15/24 07:00 Intake Total 1790 ml Output Total 1125 ml Balance 665 ml Intake Oral 1790 ml Output Urine Total 1125 ml General Appearance: Alert, Oriented X3, Cooperative HEENT: Atraumatic, PERRLA, EOMI, Mucous membr. moist/pink Neck: Supple Lungs: Clear to auscultation Cardiovascular: Regular rate, Normal S1, Normal S2, No murmurs, Gallops, Rubs Abdomen: Normal bowel sounds, Soft Neuro: Cranial nerves 3-12 NL Psych/Mental Status: Mental status NL Medications Current Medications Medications Dose Ordered Sig/Yvette Route Start Time Stop Time Status Last Admin Dose Admin Aspirin 81 mg DAILY PO 09/06/24 10:00 09/14/24 11:27 81 MG Atorvastatin Calcium 40 mg HS PO 09/06/24 22:00 09/14/24 21:51 40 MG Trazodone HCl 100 mg HS PO 09/06/24 22:00 09/14/24 21:50 100 MG Clopidogrel Bisulfate 75 mg DAILY PO 09/06/24 10:00 09/14/24 11:26 75 MG Diagnostic Test (Pha) 1 strip ACHS 09/06/24 07:00 09/15/24 06:00 1 STRIP Insulin Human Regular ACHS SC 09/06/24 07:00 09/15/24 06:03 3 UNITS Dextrose 50 ml UD PRN IV 09/06/24 01:00 Sodium Chloride 10 ml Q8HR IV 09/06/24 06:00 09/15/24 05:46 10 ML Ondansetron HCl 4 mg Q4HP PRN IV 09/06/24 01:00 Docusate Sodium 100 mg BIDPRN PRN PO 09/06/24 01:00 Acetaminophen 650 mg Q6HP PRN PO 09/06/24 01:00 Nitroglycerin 0.4 mg Q5MINP PRN SL 09/06/24 01:00 Furosemide 20 mg BIDD IV 09/07/24 18:00 09/15/24 05:46 20 MG Ranolazine 500 mg BID PO 09/07/24 22:00 09/14/24 21:52 500 MG Metoprolol Tartrate 12.5 mg BID PO 09/07/24 22:00 09/14/24 21:52 12.5 MG Losartan Potassium 12.5 mg DAILY PO 09/08/24 10:00 09/14/24 11:28 12.5 MG Empaglifozin 10 mg DAILY PO 09/08/24 10:00 09/14/24 11:26 10 MG Enoxaparin Sodium 40 mg DAILY SC 09/08/24 10:00 09/14/24 11:28 40 MG Methylprednisolone Sodium Succinate 60 mg Q8HR IV 09/08/24 14:00 09/15/24 05:46 60 MG Vancomycin HCl 0 ml @ 0 mls/hr UD IV 09/09/24 12:30 Levofloxacin/ Dextrose 100 ml @ 100 mls/hr DAILY IV 09/09/24 12:30 09/15/24 08:50 100 MLS/HR Oxycodone/ Acetaminophen 2 tab Q6HP PRN PO 09/09/24 13:30 09/14/24 18:04 2 TAB Vancomycin HCl 200 ml @ 200 mls/hr Q12H IV 09/10/24 12:00 UNV Laboratory Results Laboratory Tests 09/15/24 03:37 09/15/24 05:23 Chemistry Test 09/15/24 03:37 Calcium Level 8.3 mg/dL (8.7-10.4) L Coagulation Test 09/15/24 05:23 Prothrombin Time 10.7 sec (9.3-11.8) Prothrombin Time INR 1.01 (0.9-1.15) Activated Partial Thromboplast Time 25.3 SEC (24.5-34.5) Urinalysis Test 09/15/24 03:30 Urine Color Light-yellow (Yellow) Urine Clarity Clear (Clear) Urine pH 6.0 (5.0-9.0) Urine Specific [place] 1.021 (1.001-1.035) Urine Protein Negative (Negative) Urine Ketones Negative (Negative) Urine Blood Negative /uL (Negative) Urine Nitrite Negative (Negative) Urine Bilirubin Negative (Negative) Urine Urobilinogen Normal mg/dL (Negative) Urine Leukocyte Esterase Negative /uL (Negative) Urine RBC 1 /hpf (0 - 3) Urine Microscopic WBC < 1 /HPF (0-3) Urine Squamous Epithelial Cells None seen /hpf (<5) Urine Bacteria None seen /hpf (None Seen) Urine Yeast (Budding) Occasional /hpf (None Urine Glucose 4+ mg/dL (Normal) H Microbiology Microbiology Date/Time Source Procedure Growth Status 09/11/24 14:30 Blood Blood Culture - Preliminary NO GROWTH AFTER 72 HOURS OF INCUBATION. Resulted 09/07/24 18:30 Nose MRSA Screen - Final Methicillin Resistant S.aureus Complete Labs and/or images reviewed: Labs reviewed by me Assessment/Plan Assessment/Plan Chest pain Pneumonia secondary to Gram-positive and Gram-negative pneumonia Respiratory failure with hypoxia Generalized weakness COPD with acute exacerbation Bacteremia with staph epidermidis Continuing current management. GENO on sunday Will review 2D echo. Continuing with IV antibiotic. I will d/c rocephin and azithromax. I will start patient on Vancomycin IV pharmacy to dose and levaquin 500mg IV qday base on the sensitivity of the bacteria. Repeat blood cultures negative We will follow up with GENO to rule out endocarditis Continuing with nebulizer. Continue with Solu-Medrol 60 mg IV Q 8 hours. Will get PT to get the patient out of bed and ambulate. Discharge planning This medical document was created using an electronic medical record system with [employer] direct computerized dictation system. Although this document has been carefully reviewed, there may still be some phonetic and typographical errors. These areas are purely typographical due to imperfections of the software programs, and do not reflect any compromise in the patient's medical care. Plan discussed with: Patient Date of Service: Sep 15, 2024 Billing Provider: ARON PERLA MD Common Visit Codes: [id number] INP/OBS CARE(HIGH) ARON PERLA MD Sep 15, 2024 11:30
--- NOTE | 2024-09-15 11:36 | DVHOP2 ---
Operative Report Operative Report CARDIAC SUPERVISOR PRODUCTION PROCEDURE REPORT [place], [place] Date of Service: 09/14/24 Check Writer: Mara Huang MD PROCEDURES PERFORMED: trans esophageal echocardiogram, conscious sedation <15 mins, doppler assesment complete GENO, PREOPERATIVE DIAGNOSES: bacteremia, r/o endocarditis POSTOP DIAGNOSIS:bacteremia DESCRIPTION OF PROCEDURE: The patient or appropriate family signed informed consent understanding the risks, benefits and alternatives of the procedure, they wished to proceed. The patient was brought to the cardiac high density press laborer in n.p.o. state. the patient was given 15 ml of oral viscous lidocaine. the patient was placed in a left lateral decubitus position with bite block in mouth. NExt conscious sedation was administered per high density press laborer protocol with 1__ mg of versed and __50_ mcg of fentanyl. Next a GENO probe was advanced to the mid esophagus with ease and multiple planar images obtained. At the completion of the procedure , probe was removed and there were no immediate complications. FINDINGS: Left Ventricle: Normal LV size and function, LVEF estimated at 60% severe LVH Right Ventricle: NOrmal RV function Left atrium: enlarged, Right atrium: mild enlarged Left atrial appendage: no thrombus noted, Aortic valve: trileaflet valve, moderately thickened and calcified, no vegetation, mild aortic regurg Mitral Valve: structurally normal, mild mitral regurg, no MS no vegetation Tricuspid Valve: mil tricuspid regurgitaiton, no TS, no vegetation Pulmonic Valve: structurally normal, no severe PIor PS, no vegetation Interatrial septum: negative color flow for R to L shunt Ascending aorta: no severe plaquing MARA HUANG MD Sep 15, 2024 11:36
--- NOTE | 2024-09-15 13:08 | DVHPN2 ---
Progress Note - Dictate Date Seen: Sep 15, 2024 Medical Necessity Reason Pt with a Central, PICC or Fol: No Subjective Patient was seen and evaluated in follow up. Patient is on 2 LPM NC. Patient is s/p transesophageal echocardiogram, LVEF estimated at 60%, severe LVH. WBC 15.7, BUN 56, Shop Director 1.90. Telemetry reviewed. vital signs Vital Sign Date Time Temp Pulse Resp B/P (MAP) Pulse Ox O2 Delivery O2 Flow Rate FiO2 09/15/24 11:35 97.7 54 17 112/52 (72) 97 97.7 09/14/24 20:00 Room Air* 0 21 Total Intake and Output 09/14/24 09/14/24 09/15/24 15:00 23:00 07:00 Intake Total 600 ml 840 ml 350 ml Output Total 675 ml 450 ml Balance 600 ml 165 ml -100 ml medications Current Medications Medications Dose Ordered Sig/Yvette Route Start Time Stop Time Status Last Admin Dose Admin Aspirin 81 mg DAILY PO 09/06/24 10:00 09/14/24 11:27 81 MG Atorvastatin Calcium 40 mg HS PO 09/06/24 22:00 09/14/24 21:51 40 MG Trazodone HCl 100 mg HS PO 09/06/24 22:00 09/14/24 21:50 100 MG Clopidogrel Bisulfate 75 mg DAILY PO 09/06/24 10:00 09/14/24 11:26 75 MG Diagnostic Test (Pha) 1 strip ACHS 09/06/24 07:00 09/15/24 06:00 1 STRIP Insulin Human Regular ACHS SC 09/06/24 07:00 09/15/24 06:03 3 UNITS Dextrose 50 ml UD PRN IV 09/06/24 01:00 Sodium Chloride 10 ml Q8HR IV 09/06/24 06:00 09/15/24 05:46 10 ML Ondansetron HCl 4 mg Q4HP PRN IV 09/06/24 01:00 Docusate Sodium 100 mg BIDPRN PRN PO 09/06/24 01:00 Acetaminophen 650 mg Q6HP PRN PO 09/06/24 01:00 Nitroglycerin 0.4 mg Q5MINP PRN SL 09/06/24 01:00 Furosemide 20 mg BIDD IV 09/07/24 18:00 09/15/24 05:46 20 MG Ranolazine 500 mg BID PO 09/07/24 22:00 09/14/24 21:52 500 MG Metoprolol Tartrate 12.5 mg BID PO 09/07/24 22:00 09/14/24 21:52 12.5 MG Losartan Potassium 12.5 mg DAILY PO 09/08/24 10:00 09/14/24 11:28 12.5 MG Empaglifozin 10 mg DAILY PO 09/08/24 10:00 09/14/24 11:26 10 MG Enoxaparin Sodium 40 mg DAILY SC 09/08/24 10:00 09/14/24 11:28 40 MG Methylprednisolone Sodium Succinate 60 mg Q8HR IV 09/08/24 14:00 09/15/24 05:46 60 MG Vancomycin HCl 0 ml @ 0 mls/hr UD IV 09/09/24 12:30 Levofloxacin/ Dextrose 100 ml @ 100 mls/hr DAILY IV 09/09/24 12:30 09/15/24 08:50 100 MLS/HR Oxycodone/ Acetaminophen 2 tab Q6HP PRN PO 09/09/24 13:30 09/14/24 18:04 2 TAB Vancomycin HCl 200 ml @ 200 mls/hr Q12H IV 09/10/24 12:00 UNV objective GENERAL: Alert and oriented x 3. No acute distress. Morbidly obese. EYES: PERRL, EOMI. Anicteric. HENT: Moist mucous membranes. LUNGS: Decreased breath sounds. CARDIOVASCULAR: Regular rate and rhythm. ABDOMEN: Soft, nontender and nondistended. EXTREMITIES: +1 BLE pitting edema. NEUROLOGIC: No focal neurological deficits. SKIN: Warm, dry. laboratory and microbiology Laboratory Tests 09/15/24 05:23 09/15/24 03:37 Test 09/15/24 03:37 Range/Units Serum Glucose 208 H 74-106 mg/dL Problem List Acute on chronic decompensated HFpEF, NYHA Class III. Coronary artery disease status post multiple PTCAs with stent placement. Presence of micra leadless pacemaker. Hypertension. Dyslipidemia. Chronic pain syndrome. Morbid obesity. Assessment/Plan Continued all current supportive medical care. Aspirin, Lipitor, Plavix. DVT prophylactics. Diuretics with Lasix. IV antibiotics as ordered. Losartan. Oxycodone for pain management. Nitro SL. Additional plan as per the hospital course. Dietary Evaluation Review Comments: 1) CCHO 60 + cardiac diet 2) Refer Rip Sawyer for diabetes education Expected Outcomes/Goals: To meet >75% estimated needs Fu 3-5 days Plan discussed with: Patient ROHINI ABARCA MD Sep 15, 2024 13:08
[2024-09-15] MEDS: VANCOMYCIN 1GM/200ML PM 200 ML IV ONE (14:15)
[2024-09-16 05:00] VITALS: BP 138/81; PULSE 69; RESP 20; TEMP 98.2; O2SAT 100
[2024-09-16 05:47] LABS: Hematocrit 36.5 % (41.0-53.0); Hemoglobin 11.8 g/dL (13.5-17.5); Mean Corpuscular Hemoglobin 29.0 pg (28.0-32.0); Mean Corpuscular Volume 89.6 fL (80.0-100.0); Nucleated Red Blood Cells % 0.0 %
[2024-09-16 08:00] VITALS: PULSE 57; PULSE 87; RESP 17; O2SAT 95
[2024-09-16 09:00] VITALS: BP 117/71; PULSE 56; RESP 19; TEMP 97; O2SAT 98
[2024-09-16] MEDS: VANCOMYCIN 500mg/100mL 100 ML IV ONE (11:00)
[2024-09-16] MEDS ORDERED: LEVO500T91 PO (11:05)
--- NOTE | 2024-09-16 11:08 | DVHDS2 ---
Discharge Summary Date of Admission Sep 06, 2024 at 00:52 Date of Discharge: Sep 16, 2024 Admitting Diagnosis Chest pain Pneumonia secondary to Gram-positive and Gram-negative pneumonia Respiratory failure with hypoxia Generalized weakness COPD with acute exacerbation Labs/Diagnostic Data: Laboratory Results Test 09/16/24 06:33 09/16/24 05:00 09/15/24 05:23 09/15/24 03:37 POC Glucose 245 mg/dl (70-106) White Blood Count 15.0 10^3/uL (4.4-10.8) Red Blood Count 4.07 10^6/uL (4.5-5.90) Hemoglobin 11.8 g/dL (13.5-17.5) Hematocrit 36.5 % (41.0-53.0) Mean Corpuscular Volume 89.6 fL (80.0-100.0) Mean Corpuscular Hemoglobin 29.0 pg (28.0-32.0) Mean Corpuscular Hemoglobin Concent 32.4 g/dL (32.0-36.0) Red Cell Distribution Width 18.0 % (11.8-14.3) Platelet Count 286 10^3/uL (140-450) Mean Platelet Volume 10.5 fL (6.9-10.8) Neutrophils (%) (Auto) 90.4 % (37.0-80.0) Lymphocytes (%) (Auto) 3.5 % (10.0-50.0) Monocytes (%) (Auto) 6.0 % (0.0-12.0) Eosinophils (%) (Auto) 0.0 % (0.0-7.0) Basophils (%) (Auto) 0.1 % (0.0-2.0) Neutrophils # (Auto) 13.5 10 ^3/uL (1.6-8.6) Lymphocytes # (Auto) 0.5 10 ^3/uL (0.4-5.4) Monocytes # (Auto) 0.9 10 ^3/uL (0-1.3) Eosinophils # (Auto) 0 10 ^3/uL (0-0.8) Basophils # (Auto) 0 10 ^3/uL (0-0.2) Nucleated Red Blood Cells 0.0 % Creatinine 1.80 mg/dL (0.700-1.30) Glomerular Filtration Rate Calc 40 mL/min (>90) Random Vancomycin Level 14.9 ug/mL (5-10) Prothrombin Time 10.7 sec (9.3-11.8) Prothrombin Time INR 1.01 (0.9-1.15) Activated Partial Thromboplast Time 25.3 SEC (24.5-34.5) Sodium Level 142 mmol/L (136-145) Potassium Level 4.3 mmol/L (3.5-5.1) Chloride Level 110 mmol/L (98-107) Carbon Dioxide Level 25 mmol/L (20-31) Anion Gap 7 (5-15) Blood Urea Nitrogen 56 mg/dL (9-23) BUN/Creatinine Ratio 29.5 (10.0-20.0) Serum Glucose 208 mg/dL (74-106) Calcium Level 8.3 mg/dL (8.7-10.4) Test 09/15/24 03:30 09/07/24 05:21 09/06/24 02:17 09/05/24 22:40 Urine Color Light-yellow (Yellow) Urine Clarity Clear (Clear) Urine pH 6.0 (5.0-9.0) Urine Specific [place] 1.021 (1.001-1.035) Urine Protein Negative (Negative) Urine Ketones Negative (Negative) Urine Blood Negative /uL (Negative) Urine Nitrite Negative (Negative) Urine Bilirubin Negative (Negative) Urine Urobilinogen Normal mg/dL (Negative) Urine Leukocyte Esterase Negative /uL (Negative) Urine RBC 1 /hpf (0 - 3) Urine Microscopic WBC < 1 /HPF (0-3) Urine Squamous Epithelial Cells None seen /hpf (<5) Urine Bacteria None seen /hpf (None Seen) Urine Yeast (Budding) Occasional /hpf (None Urine Glucose 4+ mg/dL (Normal) Total Bilirubin 0.3 mg/dL (0.2-1.0) Aspartate Amino Transferase (AST) 19 U/L (13-40) Alanine Aminotransferase (ALT) 10 U/L (7-40) Alkaline Phosphatase 57 U/L (46-116) Total Protein 7.0 g/dL (5.7-8.2) Albumin 3.4 g/dL (3.2-4.8) Troponin I High Sensitivity 38 ng/L (</=54) Lactic Acid Level 0.7 mmol/L (0.4-2.0) B-Type Natriuretic Peptide 69.16 pg/mL (0-100) Other Laboratory Tests 09/16/24 05:00 09/15/24 03:37 Brief Hx & Hospital Course: This is a 70 years old male with morbid obesity, asthma, coronary artery disease, congestive heart failure, COPD, depression, GERD, hypertension came to emergency department because of chest pain on the left side for one day radiates to his back. Chest pain associated with nonproductive cough, shortness for breath, getting worse so he decided to come to hospital for further evaluation. He was found to have congestion in his lung also pneumonia. He was treated with IV antibiotic Rocephin and Zithromax. His blood culture turned out to be staph epididymis on both bottles. EKG and troponin level showed no change no acute process. Cardiology was consulted. Echo was done showed no acute problem. Subsequently the patient had a GENO done also showed no acute process. No endocarditis. The patient subsequently doing better. IV antibiotic was changed to Levaquin and vancomycin. The patient doing well today. No cough, no chest pain, am discharge the patient home. Advised the patient to follow up with primary care physician 1-2 weeks. Activity as tolerated. Diet per home diet. Recommend low-salt low-cholesterol carb controlled diet. Physical exam: HEENT: Normocephalic atraumatic pupils equal react to light and accommodation. Extraocular muscles intact, conjunctiva pink, oropharynx moist, no thrush, no exudate. Lymphatic: No lymphadenopathy Cardiovascular exam: S1, S2 was heard. No murmurs, rubs, gallops Lung: Clear on auscultation bilaterally, no wheeze, rale, rhonchi. GI: Abdominal soft, nondistended, nontenderness, positive bowel sounds. Extremity: No crepitus, cyanosis, edema. Pedal pulses present bilateral. Full range of motion. Skin: Normal turgor, no rash. Psych: Alert, oriented x3. Neurology: No focal deficits, cranial nerve II to XII grossly intact. This medical document was created using an electronic medical record system with [employer] direct computerized dictation system. Although this document has been carefully reviewed, there may still be some phonetic and typographical errors. These areas are purely typographical due to imperfections of the software programs, and do not reflect any compromise in the patient's medical care. Condition at Discharge: Stable Final Diagnosis/Problems List sepsis Chest pain Pneumonia secondary to Gram-positive and Gram-negative pneumonia Respiratory failure with hypoxia Generalized weakness COPD with acute exacerbation Bacteremia with staph epidermidis Discharge Disposition: Home Discharge Instruct/Medications Diet: Consistent carbohydrate, Cardiac 2g Na,low cholest Activity: No Restrictions, As Tolerated Follow Up/Referral: pcp 1-2 weeks Medications: Levaquin 500mg daily for 7 days. Resume home meds Scheduled Aspirin (Aspirin Regular Strength), 1 TAB PO DAILY, (Reported) Atorvastatin Calcium (Lipitor), 1 TAB PO DAILY, (Reported) Beclomethasone Dipropionate (Qvar Redihaler), 1 PUFF INH BID, (Reported) Budesonide-Formoterol Fumarate (Budesonide/Formoterol Fum 160-4.5 Mcg/Act), 2 PUFF IN BID, (Reported) Bupropion Hcl (Bupropion Hcl), 2 TAB PO DAILY, (Reported) Clopidogrel Bisulfate (Clopidogrel), 1 TAB PO DAILY, (Reported) Dapagliflozin Propanediol (Farxiga), 1 TAB PO DAILY, (Reported) Furosemide (Lasix), 40 MG PO BID Gabapentin (Gabapentin), 1 TAB PO BID, (Reported) Ipratropium-Albuterol (Combivent Respimat), 1 PUFF INH QID, (Reported) Lactulose (Lactulose), 15 ML PO BID PRN, (Reported) Levetiracetam (Levetiracetam), 1 TAB PO BID, (Reported) Levofloxacin Hemihydrate (Levaquin 500 Mg), 1 TAB PO DAILY Lidocaine (Lidocaine Topical Pain Pa), 1 PATCH TOP DAILY, (Reported) Methocarbamol (Methocarbamol), 1.5 TAB PO Q8HR PRN, (Reported) Midodrine HCl (Midodrine Hydrochloride), 1 TAB PO TID, (Reported) Oxybutynin Chloride (Ditropan Xl), 15 MG PO DAILY, (Reported) Oxycodone W/ Acetaminophen (Percocet 5/325MG), 2 TAB PO BIDPRN, (Reported) Oxycodone W/ Acetaminophen (Percocet 5/325MG), 1 TAB PO QID Pantoprazole Sodium Sesquihydr (Pantoprazole Sodium), 1 TAB PO QAM, (Reported) Potassium Chloride (Potassium Chloride ER), 1 TAB PO BID, (Reported) Prednisone (Prednisone), 40 MG PO DAILY Ranolazine (Ranexa), 500 MG PO BID Silver Sulfadiazine (Silver Sulfadiazine), 1 APPLIC TOP DAILY, (Reported) Trazodone Hcl (Trazodone Hcl), 4 TAB PO HS, (Reported) Discharge Statement: "Patient was advised to return to the ER or call 911 if any headaches, dizziness, shortness of breath, chest pain, abdominal pain, bleeding, fevers, or worsening of medical condition. Patient was counseled about treatment plan, medications, possible side effects, patientverbalized understanding. All questions were answered to the best of my ability. This discharge took greater then 30 minutes in planning, reviewing documentation, counseling the patient, and discussing with other team members." ASSESSMENT ASSESSMENT Assessment sepsis Date of Service: Sep 16, 2024 Billing Provider: ARON PERLA MD Common Visit Codes: 60844-IHQ/[id number] DISCH DAY >30min ARON PERLA MD Sep 16, 2024 11:07
[2024-09-16 12:46] VITALS: BP 111/65; PULSE 87; RESP 17; TEMP 97; O2SAT 100
[2024-09-16 13:00] VITALS: BP 137/83; PULSE 60; RESP 17; TEMP 96.1; O2SAT 100
[2024-09-16 17:00] VITALS: BP 136/68; PULSE 56; RESP 19; TEMP 96.2; O2SAT 100
--- NOTE | 2024-09-16 22:08 | DVHPN2 ---
Progress Note - Dictate Date Seen: Sep 16, 2024 Medical Necessity Reason Pt with a Central, PICC or Fol: No Subjective Patient was seen and evaluated in follow up. Patient has no new complaints at this time. Patient denies any cardiac symptoms. Patient is cardiac stable for discharge. Telemetry reviewed. vital signs Vital Sign Date Time Temp Pulse Resp B/P (MAP) Pulse Ox O2 Delivery O2 Flow Rate FiO2 09/16/24 17:00 96.2 56 19 136/68 (90) 100 96.2 09/16/24 08:00 Room Air* 0 21 Total Intake and Output 09/15/24 09/15/24 09/16/24 15:00 23:00 07:00 Intake Total 250 ml 540 ml Output Total 1250 ml Balance -1000 ml 540 ml medications Current Medications Medications Dose Ordered Sig/Yvette Route Start Time Stop Time Status Last Admin Dose Admin Vancomycin HCl 200 ml @ 200 mls/hr Q12H IV 09/10/24 12:00 UNV objective GENERAL: Alert and oriented x 3. No acute distress. Morbidly obese. EYES: PERRL, EOMI. Anicteric. HENT: Moist mucous membranes. LUNGS: Decreased breath sounds. CARDIOVASCULAR: Regular rate and rhythm. ABDOMEN: Soft, nontender and nondistended. EXTREMITIES: +1 BLE pitting edema. NEUROLOGIC: No focal neurological deficits. SKIN: Warm, dry. laboratory and microbiology Laboratory Tests 09/16/24 05:00 09/15/24 03:37 Test 09/15/24 03:37 Range/Units Serum Glucose 208 H 74-106 mg/dL Problem List Acute on chronic decompensated HFpEF, NYHA Class III. Coronary artery disease status post multiple PTCAs with stent placement. Presence of micra leadless pacemaker. Hypertension. Dyslipidemia. Chronic pain syndrome. Morbid obesity. Assessment/Plan Continued all current supportive medical care. Aspirin, Lipitor, Plavix. DVT prophylactics. Diuretics with Lasix. IV antibiotics as ordered. Losartan. Oxycodone for pain management. Nitro SL. Additional plan as per the hospital course. Dietary Evaluation Review Comments: 1) CCHO 60 + cardiac diet 2) Refer Pharmacy Technician [facility]fusion for diabetes education Expected Outcomes/Goals: To meet >75% estimated needs Fu 3-5 days Plan discussed with: Patient ROHINI ABARCA MD Sep 16, 2024 22:08
== END 2024-09-16 17:35 | disposition home or self-care (01) | DRG 871 ==
LOC: EDBD 22:19 → ER 22:19 → OVERFLOW 09-06 00:52 → TELE-EAST 09-06 23:28
PROVIDERS: ADMIT Internal Medicine; ATTEND Internal Medicine
PROC: B24BZZ4 Ultrasonography of Heart with Aorta, Transesophageal (ICD-10-PCS; principal; 2024-09-14)
DX: A41.50 Gram-negative sepsis, unspecified (principal); I50.33 Acute on chronic diastolic (congestive) heart failure; J15.69 Pneumonia due to other Gram-negative bacteria; J96.01 Acute respiratory failure with hypoxia; I13.0 Hypertensive heart and chronic kidney disease with heart failure and stage 1 through stage 4 chronic kidney disease, or unspecified chronic kidney disease; J44.1 Chronic obstructive pulmonary disease with (acute) exacerbation; J44.0 Chronic obstructive pulmonary disease with (acute) lower respiratory infection; J98.4 Other disorders of lung; E78.5 Hyperlipidemia, unspecified; E66.01 Morbid (severe) obesity due to excess calories; G89.4 Chronic pain syndrome; N18.9 Chronic kidney disease, unspecified; E11.22 Type 2 diabetes mellitus with diabetic chronic kidney disease; I34.0 Nonrheumatic mitral (valve) insufficiency; G40.909 Epilepsy, unspecified, not intractable, without status epilepticus; F32.A Depression, unspecified; F41.9 Anxiety disorder, unspecified; K21.9 Gastro-esophageal reflux disease without esophagitis; I25.10 Atherosclerotic heart disease of native coronary artery without angina pectoris; Z86.73 Personal history of transient ischemic attack (TIA), and cerebral infarction without residual deficits; Z79.82 Long term (current) use of aspirin; Z79.899 Other long term (current) drug therapy; Z95.5 Presence of coronary angioplasty implant and graft; Z90.49 Acquired absence of other specified parts of digestive tract; Z83.3 Family history of diabetes mellitus; Z82.5 Family history of asthma and other chronic lower respiratory diseases; Z82.49 Family history of ischemic heart disease and other diseases of the circulatory system; Z82.3 Family history of stroke; Z81.8 Family history of other mental and behavioral disorders; Z68.39 Body mass index [BMI] 39.0-39.9, adult; B95.7 Other staphylococcus as the cause of diseases classified elsewhere
CPT/HCPCS: 36415; 71045; 80048; 80053; 80202; 81001; 82565; 82962; 83605; 83880; 84484; 85025; 85610; 85730; 86850; 86900; 86901; 87040; 87077; 87081; 87186; 93005; 93306; 93312; 93970; 97110; 97163; 97530; 99152; 99291; G0378; J1815; J1885; J1956; J2250

== ENCOUNTER 2024-11-29 20:41 | Inpatient (IN) | payer BC, OTHER ==
[~2024-11-29] VITALS: Ht 172.7 cm; Wt 119.8 kg
[~2024-11-29 20:41] MED LIST changes: +LEVO500T91 PO
--- NOTE | 2024-11-29 21:28 | ED.PDOC ---
HPI Comments 69-year-old male came to ER via EMS for chest pain. Patient recently discharged at [facility] 2 days ago for chest pains. He does have history of CHF, COPD, status post cardiac stents and pacemaker insertion. For the past 2 hours, patient has been experiencing left-sided chest pains, pressure, constant, radiating to his left arm associated with shortness a breath Chief Complaint: Chest Pain Time Seen by MD: 21:27 Primary Care Provider: marie Reviewed Notes: Nurses Notes Allergies: Coded Allergies: NO KNOWN ALLERGIES (Unverified , 10/04/22) Home Meds Active Scripts Levofloxacin Hemihydrate (LEVAQUIN 500 MG) 500 Mg Tab, 1 TAB PO DAILY, #7 TAB Prov:ARON PERLA MD 09/16/24 Oxycodone W/ Acetaminophen (Percocet 5/325MG) 1 Tab Tb, 1 TAB PO QID, #40 TAB Prov:CYDNEY MCGARRY MD 09/01/24 Furosemide (Lasix) 40 Mg Tab, 40 MG PO BID for 30 Days, #60 TAB Prov:BK LAGUERRE MD 05/29/24 Prednisone (Prednisone) 20 Mg Tab, 40 MG PO DAILY for 5 Days, #5 MG Prov:BK LAGUERRE MD 05/29/24 Ranolazine (Ranexa) 500 Mg Tab, 500 MG PO BID for 30 Days, #60 TAB Prov:JUSTIN DUARTE MD 10/22/18 Reported Medications Oxycodone W/ Acetaminophen (Percocet 5/325MG) 1 Tab Tb, 2 TAB PO BIDPRN for CHRONIC PAIN, TAB 08/29/24 Budesonide-Formoterol Fumarate (Budesonide/Formoterol Fum 160-4.5 Mcg/Act) 1 Aer Aer, 2 PUFF IN BID for 30 Days, #10.2 02/26/24 Midodrine HCl (Midodrine Hydrochloride) 5 Mg Tab, 1 TAB PO TID for 30 Days, #90 02/26/24 Potassium Chloride (Potassium Chloride ER) 10 Meq Tab, 1 TAB PO BID for 30 Days, #60 02/26/24 Aspirin (Aspirin Regular Strength) 325 Mg Tab, 1 TAB PO DAILY for 30 Days, #30 02/26/24 Lactulose (Lactulose) 10 Gm/15 Ml Rachna, 15 ML PO BID PRN for 15 Days, #473 02/26/24 Atorvastatin Calcium (Lipitor) 80 Mg Tab, 1 TAB PO DAILY for 30 Days, #30 02/26/24 Levetiracetam (Levetiracetam) 750 Mg Tab, 1 TAB PO BID for 30 Days, #60 02/26/24 Lidocaine (Lidocaine Topical Pain Pa) 4 % Pad, 1 PATCH TOP DAILY 06/28/23 Gabapentin (Gabapentin) 800 Mg Tab, 1 TAB PO BID for 30 Days, #60 06/28/23 Ipratropium-Albuterol (COMBIVENT RESPIMAT) Respimat Aer, 1 PUFF INH QID 05/14/23 Methocarbamol (Methocarbamol) 500 Mg Tab, 1.5 TAB PO Q8HR PRN for 8 Days, #40 05/14/23 Dapagliflozin Propanediol (Farxiga) 10 Mg Tab, 1 TAB PO DAILY for 30 Days, #30 05/14/23 Beclomethasone Dipropionate (Qvar Redihaler) 80 Mcg/Act Aer, 1 PUFF INH BID for 30 Days, #10.6 02/27/23 Silver Sulfadiazine (Silver Sulfadiazine) 1 % Cre, 1 APPLIC TOP DAILY for 30 Days, #50 02/27/23 Oxybutynin Chloride (Ditropan Xl) 5 Mg Tab, 15 MG PO DAILY for 30 Days, #30 02/27/23 Trazodone Hcl (Trazodone Hcl) 100 Mg Tab, 4 TAB PO HS for 30 Days, #120 02/27/23 Clopidogrel Bisulfate (CLOPIDOGREL) 75 Mg Tab, 1 TAB PO DAILY for 30 Days, #30 02/07/23 Pantoprazole Sodium Sesquihydr (Pantoprazole Sodium) 40 Mg Tab, 1 TAB PO QAM 02/07/23 Bupropion Hcl (Bupropion Hcl) 75 Mg Tab, 2 TAB PO DAILY for 30 Days, #60 11/10/17 Information Source: Patient Mode of Arrival: EMS Severity: Moderate Timing: Hours Duration: Since onset Prehospital treatment: Oxygen Location: Chest (L) Radiation: Arm (L) Quality: Pressure Onset: With Light Exertion Cardiac Risk Factors: Hyperlipidemia, HTN History of: Similar pain in past Associated Signs and Symptoms: SOB Past Medical History PAST MEDICAL HISTORY: Angina, Anxiety, Asthma, CAD, CHF, CKF, COPD, CVA, Depression, DM, GERD, High Lipids, HTN, Liver, RI, TIA, UTI'S Surgical History: Appendectomy, Cholecystectomy, PTCA, Thyroidectomy Family History Family History: Reviewed,noncontributory to illness, Unknown Social History Smoker: Non-Smoker Alcohol: Denies ETOH Use Drugs: Denies Drug Use Lives In: Home Constitutional: denies: chills, diaphoresis, fatigue, fever, malaise, sweats, weakness, others EENTM: denies: blurred vision, double vision, ear bleeding, ear discharge, ear drainage, ear pain, ear ringing, eye pain, eye redness, hearing loss, mouth pain, mouth swelling, nasal discharge, nose bleeding, nose congestion, nose pain, photophobia, tearing, throat pain, throat swelling, voice changes, others Respiratory: reports: SOB at rest, shortness of breath; denies: cough, hemoptysis, orthopnea, SOB with excertion, stridor, wheezing, others Cardiovascular: reports: chest pain, left arm pain; denies: dizzy spells, diaphoresis, Dyspnea on exertion, edema, irregular heart beat, lightheadedness, palpitations, PND, syncope, others Gastrointestinal: denies: abdomen distended, abdominal pain, blood streaked bowels, constipated, diarrhea, dysphagia, difficulty swallowing, hematemesis, melena, nausea, poor appetite, poor fluid intake, rectal bleeding, rectal pain, vomiting, others Genitourinary: denies: burning, dysuria, flank pain, frequency, hematuria, incontinence, penile discharge, penile sore, pain, testicle pain, testicle swelling, urgency, others Neurological: denies: dizziness, fainting, headache, left sided numbness, left sided weakness, numbness, paresthesia, pre-existing deficit, right sided numbness, right sided weakness, seizure, speech problems, tingling, tremors, we akness, others Musculoskeletal: denies: back pain, gout, joint pain, joint swelling, muscle pain, muscle stiffness, neck pain, others Integumetry: denies: bruises, change in color, change in hair/nails, dryness, laceration, lesions, lumps, rash, wounds, others Allergic/Immunocompromised: denies: Difficulty Healing, Frequent Infections, Hives, Itching, others Hematologic/Lymphatic: denies: anemia, blood clots, easy bleeding, easy bruising, swollen glands, others Endocrine: denies: excessive hunger, excessive sweating, excessive thirst, excessive urination, flushing, intolerance to cold, intolerance to heat, unexplained weight gain, unexplained weight loss, others Psychiatric: denies: anxiety, bipolar disorder, depression, hopeless, panic disorder, schizophrenia, sleepless, suicidal, others Physical Exam General Appearance: No Apparent Distress, Normal HEENT: Normal ENT Inspection, Pharynx Normal, TMs Normal Neck: Full Range of Motion, Non-Tender, Normal, Normal Inspection Respiratory: Chest Non-Tender, Lungs Clear, No Accessory Muscle Use, No Respiratory Distress, Normal Breath Sounds Cardiovascular: No Edema, No JVD, No Murmur, No Gallop, Normal Peripheral Pulses, Regular Rate/Rhythm Breast Exam: Deferred Gastrointestinal: No Organomegaly, Non Tender, No Pulsatile Mass, Normal Bowel Sounds, Soft Genitalia: Deferred Pelvic: Deferred Rectal: Deferred Extremities: No calf tenderness, Normal capillary refill, Normal inspection, Normal range of motion, Non-tender, No pedal edema Musculoskeletal : Apperance: Normal Neurologic: Alert, jacker II-XII nml as Tested, No Motor Deficits, Normal Affect, Normal Mood, No Sensory Deficits Cerebellar Function: Normal Reflexes: Normal Skin: Dry, Normal Color, Warm Lymphatic: No Adenopathy Was a procedure done? Was a procedure done?: No CP Differential Dx Differential Diagnosis: Angina, Anxiety / Panic Attack Differential Diagnosis: Angina, Chest Wall Pain, Costochondritis, Esophageal reflux/spasm, Gastritis, Myocardial Infarction X-Ray, Labs, Meds, VS Vital Signs Date Time Temp Pulse Resp B/P (MAP) Pulse Ox O2 Delivery O2 Flow Rate FiO2 11/30/24 00:03 85 11/29/24 23:29 90 20 97 Room Air* 0 21 11/29/24 23:29 98.1 90 20 147/66 (93) 97 98.1 11/29/24 21:47 62 11/29/24 20:47 97.7 98 18 128/76 96 97.7 11/29/24 20:43 62 Lab Test 11/30/24 01:07 11/30/24 00:00 Range/Units Troponin I High Sensitivity Pending 86 *H </=54 ng/L White Blood Count 8.5 4.4-10.8 10^3/uL Red Blood Count 3.85 L 4.5-5.90 10^6/uL Hemoglobin 10.7 L 13.5-17.5 g/dL Hematocrit 32.9 L 41.0-53.0 % Mean Corpuscular Volume 85.5 80.0-100.0 fL Mean Corpuscular Hemoglobin 27.7 L 28.0-32.0 pg Mean Corpuscular Hemoglobin Concent 32.4 32.0-36.0 g/dL Red Cell Distribution Width 18.2 H 11.8-14.3 % Platelet Count 204 140-450 10^3/uL Mean Platelet Volume 9.5 6.9-10.8 fL Neutrophils (%) (Auto) 51.7 37.0-80.0 % Lymphocytes (%) (Auto) 37.6 10.0-50.0 % Monocytes (%) (Auto) 7.4 0.0-12.0 % Eosinophils (%) (Auto) 2.7 0.0-7.0 % Basophils (%) (Auto) 0.6 0.0-2.0 % Neutrophils # (Auto) 4.4 1.6-8.6 10 ^3/uL Lymphocytes # (Auto) 3.2 0.4-5.4 10 ^3/uL Monocytes # (Auto) 0.6 0-1.3 10 ^3/uL Eosinophils # (Auto) 0.2 0-0.8 10 ^3/uL Basophils # (Auto) 0.1 0-0.2 10 ^3/uL Nucleated Red Blood Cells 0.1 % Sodium Level 143 136-145 mmol/L Potassium Level 3.6 3.5-5.1 mmol/L Chloride Level 107 98-107 mmol/L Carbon Dioxide Level 27 20-31 mmol/L Anion Gap 9 5-15 Blood Urea Nitrogen 21 9-23 mg/dL Creatinine 1.36 H 0.700-1.30 mg/dL Glomerular Filtration Rate Calc 56 >90 mL/min BUN/Creatinine Ratio 15.4 10.0-20.0 Serum Glucose 102 74-106 mg/dL Calcium Level 8.7 8.7-10.4 mg/dL B-Type Natriuretic Peptide 131.90 0-100 pg/mL CHEST RADIOGRAPH Indication: CP Technique: Single frontal view of the chest was obtained COMPARISON: XR CHEST 1 VIEW on DOS: 11/28/24, XR CHEST 1 VIEW on DOS: 11/25/24, XR CHEST 1 VIEW on DOS: 11/19/24, XR CHEST 1 VIEW on DOS: 10/27/24, CT ANGIO CHEST - PULMONARY on DOS: 10/14/24 FINDINGS: Lines and Tubes: None Lungs: Clear Pleura: No effusion. No pneumothorax. Cardiomediastinal contours: Cardiomegaly. Bones: Unremarkable IMPRESSION: 1. Cardiomegaly. Time of 1ST Reevaluation: 21:22 Reevaluation 1ST: Unchanged Patient Education/Counseling: Diagnosis, Treatment Family Education/Counseling: No Family Present SEPSIS Sepsis Screen Date sepsis recognized/suspect: Nov 29, 2024 Time Sepsis recognized/suspect: 2052 Recent Procedure: No On Antibiotic Therapy: No Respiratory Rate >20: No Heart Rate >90: Yes Temp<36 C (96.8 F) or >38.3 C: No SBP <90 or MAP <65 mmHG: No New Acute Mental Status Change: No Is the patient on CPAP, BIPAP,: No Physician Orders Troponin-I Hs (11/29/24 21:01) Electrocardigram (11/29/24 21:01) Troponin-I Hs (11/29/24 22:01) Electrocardigram (11/29/24 22:01) Electrocardigram (11/30/24 00:01) Chest Portable (11/29/24 23:00) Hydrocodone-Acet 5/325mg Tab ([place] 5/32 (11/30/24 01:45) Vital Signs Date Time Temp Pulse Resp B/P (MAP) Pulse Ox O2 Delivery O2 Flow Rate FiO2 11/30/24 00:03 85 11/29/24 23:29 90 20 97 Room Air* 0 21 11/29/24 23:29 98.1 90 20 147/66 (93) 97 98.1 11/29/24 21:47 62 11/29/24 20:47 97.7 98 18 128/76 96 97.7 11/29/24 20:43 62 Laboratory Tests Test 11/30/24 00:00 White Blood Count 8.5 10^3/uL (4.4-10.8) Departure 1 Departure Time of Disposition: 01:34 (Patient presented with chest pain that was concerning for possible STEMI, ACS, PE, Pneumonia, Muscle Strain, COPD, Dissection. Data: 1. I ordered and reviewed the result of at least 3 labs including a CBC, BMP, and Troponin. 2. I independently interpreted the following tests: EKG which shows sinus arrhythmia and Chest X-ray which shows benign chest.Risk:This patient has a high risk of morbidity due to further diagnostic testing or treatment and may suffer from an acute cardiac or respiratory disorder. Workup reveals concern for ACS and patient should be admitted for further workup and possible expert consultation. ) Impression: Primary Impression: Acute chest pain Additional Impression: SHORTNESS OF BREATH Disposition: ADMITTED INPATIENT Admit to: Tele Condition: Guarded Critical Care Note Critical Care Time?: Yes Critical care comment: Chest pain Authorized and Performed by: Esther Sands MD Total critical care time: Approximately 49 minutes Due to a high probability of clinically significant, life threatening deterioration, the patient required my highest level of preparedness to intervene emergently and I personally spent this critical care time directly and personally managing the patient. This critical care time included obtaining a history; examining the patient; pulse oximetry; ordering and review of studies; arranging urgent treatment with development of a management plan; evaluation of patient's response to treatment; frequent reassessment; and, discussions with other providers. This critical care time was performed to assess and manage the high probability of imminent, life-threatening deterioration that could result in multi-organ failure. It was exclusive of separately billable procedures and treating other patients and teaching time. Please see my other sections and the rest of the note for further information on patient assessment and treatment. Stability Stability form required: No Heart Score Heart Score: Heart Score Response (Comments) Value History Moderate Suspicious 1 EKG Repolarization Disturb 1 Age >65 2 Risk Factors >3 or Hx ASHD 2 Troponin Normal limit 0 Total 6 I personally scribed for ESTHER SANDS MD ([facility] on 11/29/24 at 21:28. Electronically submitted by Mateo Fernando ([email or web address]). I personally scribed for ESTHER SANDS MD ([email or web address]) on 11/30/24 at 01:32. Electronically submitted by Mateo Fernando ([email or web address] ESTHER SANDS MD Nov 29, 2024 21:28
[2024-11-29 23:29] VITALS: PULSE 90; RESP 20; O2SAT 97
--- NOTE | 2024-11-29 23:36 | DVH ---
CHEST RADIOGRAPH Indication: CP Technique: Single frontal view of the chest was obtained COMPARISON: XR CHEST 1 VIEW on DOS: 11/28/24, XR CHEST 1 VIEW on DOS: 11/25/24, XR CHEST 1 VIEW on DOS : 11/19/24, XR CHEST 1 VIEW on DOS: 10/27/24, CT ANGIO CHEST - PULMONARY on DOS: 10/14/24 FINDINGS: Lines and Tubes: None Lungs: Clear Pleura: No effusion. No pneumothorax. Cardiomediastinal contours: Cardiomegaly. Bones: Unremarkable IMPRESSION: 1. Cardiomegaly.
[2024-11-30] VITALS (7 sets, daily range): BP systolic 116–134; BP diastolic 57–63; PULSE 56–100; RESP 18–20; TEMP 97.8–98.1; O2SAT 56–100
[2024-11-30 00:21] LABS: Hematocrit 32.9 % (41.0-53.0); Hemoglobin 10.7 g/dL (13.5-17.5); Mean Corpuscular Hemoglobin 27.7 pg (28.0-32.0); Mean Corpuscular Volume 85.5 fL (80.0-100.0); Nucleated Red Blood Cells % 0.1 %
[2024-11-30 00:34] LABS: Chloride 107 mmol/L (98-107); Potassium 3.6 mmol/L (3.5-5.1); Sodium 143 mmol/L (136-145)
[2024-11-30 00:35] LABS: Anion Gap 9 (5-15); Carbon Dioxide 27 mmol/L (20-31)
[2024-11-30 00:40] LABS: BUN/Creatinine Ratio 15.4 (10.0-20.0); Blood Urea Nitrogen 21 mg/dL (9-23); Glucose 102 mg/dL (74-106)
[2024-11-30 01:14] LABS: Calcium 8.7 mg/dL (8.7-10.4)
[2024-11-30] MEDS: HYDROcodone-ACET 5/325MG TAB PO ONE (01:48)
[2024-11-30] MEDS: HYDROmorphone HCL 2 MG/ML VL/or syr IV ONE (03:00)
[2024-11-30] MEDS ORDERED: MORPHINE SULFATE INJ 2 MG/ml SYRG IV PRN ×2 (04:00)
[2024-11-30] MEDS ORDERED: HYDROcodone-ACET 5/325MG TAB PO PRN (04:00)
--- NOTE | 2024-11-30 04:42 | DVHHPRES ---
History of Present Illness Resident Creating Document: NEVA WU RESIDENT History of Present Illness History of Present Illness 69 YO M with a history of heart problems presenting with chest pain. The patient was lying in bed when his chest started pounding, which then progressed and radiated from his chest to his left arm and down his back. He describes the pain as pressure and rates the current severity as 9 out of 10. He received some pain medication earlier but continues to have pain. The patient has a history of chest pain and is followed by Dr. Montesinos, a insurance underwriter. He has a pacemaker and 5 stens. The patient has additional medical conditions including COPD and uses 2 liters of oxygen at home as needed. He quit smoking approximately 10 years ago. The patient lives with his sister and reports difficulty walking, requiring him to stay at home. Past Medical History - CAD, S/P PCI - COPD requiring oxygen therapy as needed at 2 liters - Hypertension - High cholesterol Past Surgical History PCI, status post pacemaker Past Social History - Substance Use: Former smoker, quit approximately 10 years ago denies current alcohol use; denies current recreational drug use - Living Situation: Lives with sister Review of Systems Review of Systems CONSTITUTIONAL: Denies weight loss, fever and chills. HEENT: Denies changes in vision and hearing. RESPIRATORY: Denies SOB and cough. CV: Reports palpitations and chest pain. GI: Denies abdominal pain, nausea, vomiting and diarrhea. : Denies dysuria and urinary frequency. MSK: Denies myalgia and joint pain. SKIN: Denies rash and pruritus. NEUROLOGICAL: Denies headache Allergies: Coded Allergies: NO KNOWN ALLERGIES (Unverified , 10/04/22) Medications Current Medications Medications Dose Ordered Sig/Yvette Route Start Time Stop Time Status Last Admin Dose Admin Acetaminophen/ Hydrocodone Bitart 1 tab Q4HP PRN PO 11/30/24 04:00 Morphine Sulfate 2 mg Q4HPRN PRN IV 11/30/24 04:00 Nitroglycerin 0.4 mg Q5MINP PRN SL 11/30/24 04:00 Morphine Sulfate 2 mg Q30M PRN IV 11/30/24 04:00 Exam Vital Signs Vital Signs Date Time Temp Pulse Resp B/P (MAP) Pulse Ox O2 Delivery O2 Flow Rate FiO2 11/30/24 04:39 98.1 57 18 134/60 (84) 98 98.1 11/29/24 23:29 Room Air* 0 21 Exam GENERAL: Not in acute distress. HEENT: EOMI, Moist mucous membranes. No scleral icterus. No cervical lymphadenopathy. LUNGS: Clear to auscultation bilaterally. No accessory muscle use. CARDIOVASCULAR: Regular rate and rhythm. No murmur. No JVD. ABDOMEN: Soft, nontender and nondistended. No palpable masses. EXTREMITIES: No edema. Nontender. SKIN: No rashes or lesions. Warm. NEUROLOGIC: Alert and oriented X3 Labs/Xrays Labs Test 11/30/24 02:56 11/30/24 00:00 Range/Units Troponin I High Sensitivity 73 *H </=54 ng/L White Blood Count 8.5 4.4-10.8 10^3/uL Red Blood Count 3.85 L 4.5-5.90 10^6/uL Hemoglobin 10.7 L 13.5-17.5 g/dL Hematocrit 32.9 L 41.0-53.0 % Mean Corpuscular Volume 85.5 80.0-100.0 fL Mean Corpuscular Hemoglobin 27.7 L 28.0-32.0 pg Mean Corpuscular Hemoglobin Concent 32.4 32.0-36.0 g/dL Red Cell Distribution Width 18.2 H 11.8-14.3 % Platelet Count 204 140-450 10^3/uL Mean Platelet Volume 9.5 6.9-10.8 fL Neutrophils (%) (Auto) 51.7 37.0-80.0 % Lymphocytes (%) (Auto) 37.6 10.0-50.0 % Monocytes (%) (Auto) 7.4 0.0-12.0 % Eosinophils (%) (Auto) 2.7 0.0-7.0 % Basophils (%) (Auto) 0.6 0.0-2.0 % Neutrophils # (Auto) 4.4 1.6-8.6 10 ^3/uL Lymphocytes # (Auto) 3.2 0.4-5.4 10 ^3/uL Monocytes # (Auto) 0.6 0-1.3 10 ^3/uL Eosinophils # (Auto) 0.2 0-0.8 10 ^3/uL Basophils # (Auto) 0.1 0-0.2 10 ^3/uL Nucleated Red Blood Cells 0.1 % Sodium Level 143 136-145 mmol/L Potassium Level 3.6 3.5-5.1 mmol/L Chloride Level 107 98-107 mmol/L Carbon Dioxide Level 27 20-31 mmol/L Anion Gap 9 5-15 Blood Urea Nitrogen 21 9-23 mg/dL Creatinine 1.36 H 0.700-1.30 mg/dL Glomerular Filtration Rate Calc 56 >90 mL/min BUN/Creatinine Ratio 15.4 10.0-20.0 Serum Glucose 102 74-106 mg/dL Calcium Level 8.7 8.7-10.4 mg/dL B-Type Natriuretic Peptide 131.90 0-100 pg/mL SEPSIS Sepsis Screen Date sepsis recognized/suspect: Nov 29, 2024 Time Sepsis recognized/suspect: 2331 Recent Procedure: No On Antibiotic Therapy: No Respiratory Rate >20: No Heart Rate >90: No Temp<36 C (96.8 F) or >38.3 C: No SBP <90 or MAP <65 mmHG: No New Acute Mental Status Change: No Is the patient on CPAP, BIPAP,: No Physician Orders Electrocardigram (11/29/24 21:01) Electrocardigram (11/29/24 22:01) Electrocardigram (11/30/24 00:01) Chest Portable (11/29/24 23:00) Admit (11/30/24 03:59) Code Status (11/30/24 03:59) Hydrocodone-Acet 5/325mg Tab ([place] 5/32 (11/30/24 04:00) Complete Blood Count (11/30/24 04:00) Comprehensive Metabolic Panel (11/30/24 04:00) Cardiac Diet-2gna,Lofat,Lochol (11/30/24 Breakfast) Morphine Sulfate Injection (11/30/24 04:00) Nitroglycerin Sublingual (Ntrostat Subli (11/30/24 04:00) Morphine Sulfate Injection (11/30/24 04:00) Oxygen By Nasal Cannula (11/30/24 03:59) Stat Ekg For Chest Pain (11/30/24 03:59) Notify Md Of Changes From Base (11/30/24 03:59) Maths Tutor For 24 Hours (11/30/24 03:59) Emergency Dysrhythmia Protocol (11/30/24 03:59) Rhythm Strips Once Every Shift (11/30/24 03:59) *Consult Dr.Mukeshchandra Bernal (11/30/24 03:59) Vital Signs Date Time Temp Pulse Resp B/P (MAP) Pulse Ox O2 Delivery O2 Flow Rate FiO2 11/30/24 04:39 98.1 57 18 134/60 (84) 98 98.1 11/30/24 03:30 78 18 130/85 11/30/24 03:00 80 18 135/75 11/30/24 00:03 85 11/29/24 23:29 90 20 97 Room Air* 0 21 11/29/24 23:29 98.1 90 20 147/66 (93) 97 98.1 11/29/24 21:47 62 11/29/24 20:47 97.7 98 18 128/76 96 97.7 11/29/24 20:43 62 Laboratory Tests Test 11/30/24 00:00 White Blood Count 8.5 10^3/uL (4.4-10.8) Medications Medications Dose Ordered Sig/Yvette Route Start Time Stop Time Status Last Admin Dose Admin Acetaminophen/ Hydrocodone Bitart 1 tab ONCE ONCE PO 11/30/24 01:45 11/30/24 01:46 DC 11/30/24 01:48 1 TAB Hydromorphone HCl 0.5 mg ONCE ONCE IV 11/30/24 03:00 11/30/24 03:01 DC 11/30/24 03:00 0.5 MG Assessment/Plan Assessment/Plan # Acute Chest Pain, Rule out ACS # unstable angina - Admit patient to the hospital - troponin was 86/76/81 - Consult insurance underwriter - Administer morphine for pain management and heart rate control - Monitor vital signs and cardiac status - continue aspirin and Plavix # Chronic Obstructive Pulmonary Disease (COPD) - Continue home oxygen therapy as needed, 2 liters - continue breathing treatment as needed -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 Schumacher Plan discussed with: Patient My Orders Orders - NEVA WU RESIDENT Procedure Category Date Status Time Admit ADMIT 11/30/24 Transmitted 03:59 Code Status CODE 11/30/24 Transmitted 03:59 Hydrocodone-Acet PHA 11/30/24 In Process 5/325mg Tab ([place] 04:00 Complete Blood Count LAB 11/30/24 Logged 04:00 Comprehensive LAB 11/30/24 Logged Metabolic Panel 04:00 Cardiac DIET 11/30/24 Transmitted Diet-2gna,Lofat,Lochol Breakfast Morphine Sulfate PHA 11/30/24 In Process Injection 04:00 Nitroglycerin PHA 11/30/24 In Process Sublingual (Ntrostat 04:00 Morphine Sulfate PHA 11/30/24 In Process Injection 04:00 Oxygen By Nasal RT 11/30/24 Transmitted Cannula 03:59 Stat Ekg For Chest ELLIE 11/30/24 In Process Pain 03:59 Notify Md Of Changes ELLIE 11/30/24 In Process From Base 03:59 Maths Tutor For [facility] 11/30/24 In Process 24 Hours 03:59 Emergency Dysrhythmia ELLIE 11/30/24 In Process Protocol 03:59 Rhythm Strips Once [facility] 11/30/24 In Process Every Shift 03:59 *Consult CONS 11/30/[address]Mukeshchandra Bernal 03:59 Date of Service: Nov 30, 2024 Billing Provider: SIMONE SCHUMACHER MD Common Visit Codes: 02977-[id number] INP/OBS CARE (HIGH) Secondary Visit Codes: 54293-[id number] CARE PLAN 30 MINUTES NEVA WU RESIDENT Nov 30, 2024 04:42
[2024-11-30] MEDS ORDERED: ALBUTEROL SULF 2.5 MG/0.5ML(0.5%) NEB SOLN NEB PRN (05:15)
[2024-11-30] MEDS ORDERED: IPRATROPIUM BROM 0.5 MG/2.5ML INH SOL NEB PRN (05:15)
[2024-11-30 06:05] LABS: Hematocrit 31.1 % (41.0-53.0); Hemoglobin 10.0 g/dL (13.5-17.5); Mean Corpuscular Hemoglobin 27.4 pg (28.0-32.0); Mean Corpuscular Volume 85.4 fL (80.0-100.0); Nucleated Red Blood Cells % 0.2 %
[2024-11-30] MEDS: PANTOPRAZOLE 40 MG TAB PO SCH (06:09)
[2024-11-30] MEDS: HYDROmorphone HCL 2 MG/ML VL/or syr IV PRN (06:30)
--- NOTE | 2024-11-30 07:09 | ECG ---
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
--- NOTE | 2024-11-30 07:10 | ECG ---
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
--- NOTE | 2024-11-30 07:31 | ECG ---
[facility] Test Date: 2024-11-29 Test Time: 20:43:02 Pat Name: NAVID SANCHEZ Department: [facility] ED Room: 0283T Gender: M Can Solderer: aldo : 1955 Requested By: ESTHER PRIDE Order Number: [id number] Reading MD: Som Vásquez Measurements Intervals [place] Rate: 62 P: -1 MI: 126 QRS: -56 QRSD: 106 T: 95 QT: 449 QTc: 456 Interpretive Statements Sinus rhythm Atrial premature complex Left anterior fascicular block Abnormal R-wave progression, late transition Nonspecific T abnormalities, lateral leads Electronically Signed On 12-02-2024 15:07:32 PDT by Som Vásquez Please click the below link to view image of tracing.
[2024-11-30 08:06] LABS: Alanine Aminotransferase 23 U/L (7-40); Alkaline Phosphatase 65 U/L (46-116); Anion Gap 10 (5-15); BUN/Creatinine Ratio 26.4 (10.0-20.0); Carbon Dioxide 28 mmol/L (20-31); Chloride 105 mmol/L (98-107); Glucose 93 mg/dL (74-106); Potassium 3.9 mmol/L (3.5-5.1); Sodium 143 mmol/L (136-145); Total Protein 6.6 g/dL (5.7-8.2)
[2024-11-30 08:08] LABS: Albumin 3.1 g/dL (3.2-4.8); Bilirubin, Total 0.3 mg/dL (0.2-1.0); Blood Urea Nitrogen 34 mg/dL (9-23); Calcium 8.5 mg/dL (8.7-10.4)
--- NOTE | 2024-11-30 09:36 | DVHINCON2 ---
Date Seen: Nov 30, [address] Rosales Reason for Consultation Pacemaker and CAD History of Present Illness 69-year-old male presents to the ED via EMS with complaint of chest pressure that began last night while watching television. Sheather consulted for evaluation of possible progressive CAD and mildly elevated troponins (86/81/73). The patient is alert and oriented x3 and reports that the chest pain radiates to the left arm, back, and lower back. He denies diaphoresis, shortness of breath, or dyspnea. He reports a history of multiple left heart catheterization with multiple stents placed, the most recent approximately three months ago. The patient follows with his lease administrator Dr. Camille Montesinos. He reports adherence to all prescribed medication, including aspirin, Plavix, statins, and antihypertensive. Past medical history includes HfpEF, CAD s/p multiple PCIs with unknown number of DESTINY, sick sinus syndrome s/p Micra leadless pacemaker implantation, hypertension, dyslipidemia, CKD, CVA, COPD, type 2 diabetes, obst ructive sleep apnea, bacteremia, thyroidectomy, seizure disorder, chronic pain, morbid obesity, and bed-bound status. Past Medical History As stated in HPI Past Surgical History As stated in HPI Family History: Alcoholism G8 MOTHER, Onset:Unknown Cancer G8 SISTER (uterine cancer) Cardiovascular disease G8 SISTER Cerebrovascular accident (CVA) G8 BROTHER Chronic obstructive pulmonary disease G8 SISTER Depression G8 SISTER Diabetes mellitus G8 SISTER G8 SISTER Family history: Cardiovascular disease Family history: Depression (situation) Family history: Hypertension Family history: Hypertension Glaucoma MATERNAL GPA Sepsis Stroke Stroke Family History Reviewed, non-contributory to the management of this case. Social History The patient lives at home, denies smoking, alcohol or illicit drugs abuse. Allergies: Coded Allergies: NO KNOWN ALLERGIES (Unverified , 10/04/22) Home Meds Active Scripts Levofloxacin Hemihydrate (LEVAQUIN 500 MG) 500 Mg Tab, 1 TAB PO DAILY, #7 TAB Prov:ARON PERLA MD 09/16/24 Oxycodone W/ Acetaminophen (Percocet 5/325MG) 1 Tab Tb, 1 TAB PO QID, #40 TAB Prov:CYDNEY MCGARRY MD 09/01/24 Furosemide (Lasix) 40 Mg Tab, 40 MG PO BID for 30 Days, #60 TAB Prov:BK LAGUERRE MD 05/29/24 Prednisone (Prednisone) 20 Mg Tab, 40 MG PO DAILY for 5 Days, #5 MG Prov:BK LAGUERRE MD 05/29/24 Ranolazine (Ranexa) 500 Mg Tab, 500 MG PO BID for 30 Days, #60 TAB Prov:JUSTIN DUARTE MD 10/22/18 Reported Medications Oxycodone W/ Acetaminophen (Percocet 5/325MG) 1 Tab Tb, 2 TAB PO BIDPRN for CHRONIC PAIN, TAB 08/29/24 Budesonide-Formoterol Fumarate (Budesonide/Formoterol Fum 160-4.5 Mcg/Act) 1 Aer Aer, 2 PUFF IN BID for 30 Days, #10.2 02/26/24 Midodrine HCl (Midodrine Hydrochloride) 5 Mg Tab, 1 TAB PO TID for 30 Days, #90 02/26/24 Potassium Chloride (Potassium Chloride ER) 10 Meq Tab, 1 TAB PO BID for 30 Days, #60 02/26/24 Aspirin (Aspirin Regular Strength) 325 Mg Tab, 1 TAB PO DAILY for 30 Days, #30 02/26/24 Lactulose (Lactulose) 10 Gm/15 Ml Rachna, 15 ML PO BID PRN for 15 Days, #473 02/26/24 Atorvastatin Calcium (Lipitor) 80 Mg Tab, 1 TAB PO DAILY for 30 Days, #30 02/26/24 Levetiracetam (Levetiracetam) 750 Mg Tab, 1 TAB PO BID for 30 Days, #60 02/26/24 Lidocaine (Lidocaine Topical Pain Pa) 4 % Pad, 1 PATCH TOP DAILY 06/28/23 Gabapentin (Gabapentin) 800 Mg Tab, 1 TAB PO BID for 30 Days, #60 06/28/23 Ipratropium-Albuterol (COMBIVENT RESPIMAT) Respimat Aer, 1 PUFF INH QID 05/14/23 Methocarbamol (Methocarbamol) 500 Mg Tab, 1.5 TAB PO Q8HR PRN for 8 Days, #40 05/14/23 Dapagliflozin Propanediol (Farxiga) 10 Mg Tab, 1 TAB PO DAILY for 30 Days, #30 05/14/23 Beclomethasone Dipropionate (Qvar Redihaler) 80 Mcg/Act Aer, 1 PUFF INH BID for 30 Days, #10.6 02/27/23 Silver Sulfadiazine (Silver Sulfadiazine) 1 % Cre, 1 APPLIC TOP DAILY for 30 Days, #50 02/27/23 Oxybutynin Chloride (Ditropan Xl) 5 Mg Tab, 15 MG PO DAILY for 30 Days, #30 02/27/23 Trazodone Hcl (Trazodone Hcl) 100 Mg Tab, 4 TAB PO HS for 30 Days, #120 02/27/23 Clopidogrel Bisulfate (CLOPIDOGREL) 75 Mg Tab, 1 TAB PO DAILY for 30 Days, #30 02/07/23 Pantoprazole Sodium Sesquihydr (Pantoprazole Sodium) 40 Mg Tab, 1 TAB PO QAM 02/07/23 Bupropion Hcl (Bupropion Hcl) 75 Mg Tab, 2 TAB PO DAILY for 30 Days, #60 11/10/17 Current Medications Current Medications Medications (Trade) Dose Ordered Sig/Yvette Route PRN Reason Start Time Stop Time Status Last Admin Acetaminophen/ Hydrocodone Bitart ([place] 5/325MG Tab) 1 tab Q4HP PRN PO MODERATE PAIN (4-6 PAIN SCALE) 11/30/24 04:00 Morphine Sulfate 2 mg Q4HPRN PRN IV SEVERE PAIN (7-10 PAIN SCALE) 11/30/24 04:00 11/30/24 06:26 DC Nitroglycerin (Ntrostat Sublingual) 0.4 mg Q5MINP PRN SL FOR CHEST PAIN 11/30/24 04:00 Morphine Sulfate 2 mg Q30M PRN IV FOR CHEST PAIN 11/30/24 04:00 Aspirin (Ecotrin Enteric Coated Tablet) 325 mg DAILY PO 11/30/24 10:00 Clopidogrel Bisulfate (Plavix) 75 mg DAILY PO 11/30/24 10:00 Pantoprazole Sodium (Protonix Tablet) 40 mg QAM PO 11/30/24 07:00 11/30/24 06:09 Ranolazine (Ranexa ER) 500 mg BID PO 11/30/24 10:00 Patient Own Medication 1 tab DAILY PO 11/30/24 10:00 11/30/24 04:54 DC Patient Own Medication 1 tab BID PO 11/30/24 10:00 11/30/24 04:54 DC Patient Own Medication 1 tab BID PO 11/30/24 10:00 11/30/24 04:54 DC Atorvastatin Calcium (Lipitor) 80 mg HS PO 11/30/24 22:00 Gabapentin (Neurontin Capsule) 400 mg BID PO 11/30/24 10:00 Levetiracetam (Keppra Tablet) 750 mg BID PO 11/30/24 10:00 Ipratropium [place] (Atrovent Medneb) 0.5 mg Q4HPRN PRN NEB SHORTNESS OF BREATH 11/30/24 05:15 Albuterol (Ventolin Medneb) 1.25 mg Q4HPRN PRN NEB SHORTNESS OF BREATH 11/30/24 05:15 Hydromorphone HCl (Dilaudid Injection) 0.5 mg Q6HPRN PRN IV PAIN SCALE 7 THRU 10 11/30/24 06:15 11/30/24 06:30 Review of Systems Constitutional: No symptom reported Ears, Nose, & Throat: No symptom reported Eyes: No symptom reported Neurological: No symptoms reported Pulmonary/Respiratory: No symptom reported Cardiovascular: Chest pain Gastrointestinal: No symptom reported Genitourinary: No symptom reported Musculoskeletal: No symptom reported Skin: No symptom reported Psychiatric: No symptom reported Endocrine: No symptom reported Hemotologic/Lymphatic: No symptom reported Vital Signs Vital Signs Date Time Temp Pulse Resp B/P (MAP) Pulse Ox O2 Delivery O2 Flow Rate FiO2 11/30/24 08:00 52 11/30/24 07:38 18 131/55 11/30/24 04:39 98.1 98 98.1 11/29/24 23:29 Room Air* 0 21 Physical Exam INITIAL VITAL SIGNS: Reviewed by me GENERAL: Alert and interactive. No acute distress. HEAD: Head is normocephalic and atraumatic. EYES: EOMI, PERRL. No scleral icterus. No conjunctival injection. ENT: Moist mucous membranes. NECK: Supple, No masses, Full range of motion. RESPIRATORY: No tachypnea. Clear breath sounds bilaterally. No wheezing, rales, rhonchi. CV: Regular rate and rhythm. GI/: Active bowel sounds, soft, nondistended, nontender. No guarding. No rebound. No masses. No CVA tenderness. INTEGUMENTARY: Warm and dry. No obvious rashes. NEUROLOGIC: Alert and oriented. Labs/Diagnostic Data Labs Test 11/30/24 07:26 11/30/24 05:19 11/30/24 02:56 11/30/24 00:00 Range/Units Sodium Level 143 136-145 mmol/L Potassium Level 3.9 3.5-5.1 mmol/L Chloride Level 105 98-107 mmol/L Carbon Dioxide Level 28 20-31 mmol/L Anion Gap 10 5-15 Blood Urea Nitrogen 34 #H 9-23 mg/dL Creatinine 1.29 0.700-1.30 mg/dL Glomerular Filtration Rate Calc 60 >90 mL/min BUN/Creatinine Ratio 26.4 H 10.0-20.0 Serum Glucose 93 74-106 mg/dL Calcium Level 8.5 L 8.7-10.4 mg/dL Total Bilirubin 0.3 0.2-1.0 mg/dL Aspartate Amino Transferase (AST) 32 13-40 U/L Alanine Aminotransferase (ALT) 23 7-40 U/L Alkaline Phosphatase 65 46-116 U/L Total Protein 6.6 5.7-8.2 g/dL Albumin 3.1 L 3.2-4.8 g/dL White Blood Count 9.2 4.4-10.8 10^3/uL Red Blood Count 3.64 L 4.5-5.90 10^6/uL Hemoglobin 10.0 L 13.5-17.5 g/dL Hematocrit 31.1 L 41.0-53.0 % Mean Corpuscular Volume 85.4 80.0-100.0 fL Mean Corpuscular Hemoglobin 27.4 L 28.0-32.0 pg Mean Corpuscular Hemoglobin Concent 32.0 32.0-36.0 g/dL Red Cell Distribution Width 18.0 H 11.8-14.3 % Platelet Count 207 140-450 10^3/uL Mean Platelet Volume 10.0 6.9-10.8 fL Neutrophils (%) (Auto) 46.1 37.0-80.0 % Lymphocytes (%) (Auto) 41.7 10.0-50.0 % Monocytes (%) (Auto) 8.1 0.0-12.0 % Eosinophils (%) (Auto) 2.8 0.0-7.0 % Basophils (%) (Auto) 1.3 0.0-2.0 % Neutrophils # (Auto) 4.2 1.6-8.6 10 ^3/uL Lymphocytes # (Auto) 3.8 0.4-5.4 10 ^3/uL Monocytes # (Auto) 0.7 0-1.3 10 ^3/uL Eosinophils # (Auto) 0.3 0-0.8 10 ^3/uL Basophils # (Auto) 0.1 0-0.2 10 ^3/uL Nucleated Red Blood Cells 0.2 % Troponin I High Sensitivity 73 *H </=54 ng/L B-Type Natriuretic Peptide 131.90 0-100 pg/mL PROCEDURE(s): CXRP - CHEST PORTABLE REASON: CP ORDER NUMBER(s): [id number], ACCESSION NUMBER(s): [id number] CHEST RADIOGRAPH Indication: CP Technique: Single frontal view of the chest was obtained COMPARISON: XR CHEST 1 VIEW on DOS: 11/28/24, XR CHEST 1 VIEW on DOS: 11/25/24, XR CHEST 1 VIEW on DOS: 11/19/24, XR CHEST 1 VIEW on DOS: 10/27/24, CT ANGIO CHEST - PULMONARY on DOS: 10/14/24 FINDINGS: Lines and Tubes: None Lungs: Clear Pleura: No effusion. No pneumothorax. Cardiomediastinal contours: Cardiomegaly. Bones: Unremarkable IMPRESSION: 1. Cardiomegaly. Assessment Atypical chest pain likely nonischemic are stable angina equivalent given daryn ntrending troponins and absence of new EKG changes Acute on chronic decompensated HFpEF, NYHA Class III Coronary artery disease status post multiple PTCAs with stent placement NSTEMI likely type 2 due to extensive cardiac history Presence of micra leadless pacemaker Hypertension Dyslipidemia COPD Chronic pain syndrome Morbid obesity Plan/Recommendation (Dr. Montesinos): Recent transesophageal echocardiogram reveals Normal LV size and function, LVEF estimated at 60% severe LVH . Continue chest pain protocol with telemetry monitoring Maintain dual antiplatelet therapy Continue statins and beta pippa/antihypertensive regimen as tolerated Monitor serial troponins and EKG for dynamic changes Continue follow-up with his lease administrator, Dr. Camille Montesinos Mildly elevated, downtrending troponin with atypical chest pain in a patient with extensive CAD and multiple prior stents--no EKG evidence of acute ischemia. Findings consistent with stable angina/demand ischemia rather than acute c oronary syndrome. Continue optimal medical therapy and close outpatient cardiology follow-up. This medical document was created using an electronic medical record system with voice recognition software and computerized dictation system. Although this document has been carefully reviewed, there might still be some phonetic and typographical errors. Occasional wrong-word or ``sound-alike substitutions may have occurred due to the inherent limitations of voice recognition software. These areas are purely typographical due to imperfections of the software programs and do not reflect any compromise in the patient's medical care. Please read the chart carefully and recognize, using context, where these substitutions have occurred. Plan discussed with: Patient Plan discussed with: Patient NYHA Physical activity limitations: Class3(Marked) ordinary Date of Service: Nov 30, 2024 Billing Provider: ROHINI MONTESINOS MD Cardiology Common Codes: CONSULT ONLY Cardiology Consultation Codes: [id number] CONSULT <45MIN CHANDA SMITHP Nov 30, 2024 09:36
[2024-11-30] MEDS ORDERED: PATIENTS OWN MEDICATION (Gabapentin 1 TAB) PO SCH (10:00)
[2024-11-30] MEDS ORDERED: PATIENTS OWN MEDICATION (Levetiracetam 1 TAB) PO SCH (10:00)
[2024-11-30] MEDS ORDERED: PATIENTS OWN MEDICATION (Atorvastatin Calcium (Lipitor) 1 TAB) PO SCH (10:00)
--- NOTE | 2024-11-30 10:33 | DVHPN2 ---
Subjective better Reviewed: Care Plan, H&P, Labs, Medications, Previous Orders, Radiology Changes from previous H/P or p: No Changes Objective Vitals Vital Signs Date Time Temp Pulse Resp B/P (MAP) Pulse Ox O2 Delivery O2 Flow Rate FiO2 11/30/24 08:00 52 11/30/24 07:38 18 131/55 11/30/24 04:39 98.1 98 98.1 11/29/24 23:29 Room Air* 0 21 General Appearance: Alert, Oriented X3, Cooperative, No acute distress HEENT: Atraumatic Lungs: Clear to auscultation Cardiovascular: Regular rate Extremities: Other (Trace bilateral lower extremity edema) Medications Current Medications Medications Dose Ordered Sig/Yvette Route Start Time Stop Time Status Last Admin Dose Admin Acetaminophen/ Hydrocodone Bitart 1 tab Q4HP PRN PO 11/30/24 04:00 Nitroglycerin 0.4 mg Q5MINP PRN SL 11/30/24 04:00 Morphine Sulfate 2 mg Q30M PRN IV 11/30/24 04:00 Aspirin 325 mg DAILY PO 11/30/24 10:00 Clopidogrel Bisulfate 75 mg DAILY PO 11/30/24 10:00 Pantoprazole Sodium 40 mg QAM PO 11/30/24 07:00 11/30/24 06:09 40 MG Ranolazine 500 mg BID PO 11/30/24 10:00 Atorvastatin Calcium 80 mg HS PO 11/30/24 22:00 Gabapentin 400 mg BID PO 11/30/24 10:00 Levetiracetam 750 mg BID PO 11/30/24 10:00 Ipratropium [place] 0.5 mg Q4HPRN PRN NEB 11/30/24 05:15 Albuterol 1.25 mg Q4HPRN PRN NEB 11/30/24 05:15 Hydromorphone HCl 0.5 mg Q6HPRN PRN IV 11/30/24 06:15 11/30/24 06:30 0.5 MG Laboratory Results Laboratory Tests 11/30/24 05:19 11/30/24 07:26 Chemistry Test 11/30/24 00:00 11/30/24 07:26 Calcium Level 8.7 mg/dL (8.7-10.4) 8.5 mg/dL (8.7-10.4) L Albumin 3.1 g/dL (3.2-4.8) L Total Protein 6.6 g/dL (5.7-8.2) Cardiac Markers Test 11/30/24 00:00 B-Type Natriuretic Peptide 131.90 pg/mL (0-100) LFT Test 11/30/24 07:26 Alanine Aminotransferase (ALT) 23 U/L (7-40) Alkaline Phosphatase 65 U/L (46-116) Aspartate Amino Transferase (AST) 32 U/L (13-40) Total Bilirubin 0.3 mg/dL (0.2-1.0) Assessment/Plan Assessment/Plan Chest pain/non-STEMI Coronary artery disease and history of multiple stents and PTCAs Micra Leadless pacemaker Morbid obesity Hypertension Dyslipidemia COPD Chronic pain syndrome Anemia Plan: Continue current plan care. Per cardiology. Repeat labs. Further plan per orders Plan discussed with: Patient Date of Service: Nov 30, 2024 Billing Provider: KEE STEIN MD Common Visit Codes: [id number] INP/OBS CARE(HIGH) KEE STEIN MD Nov 30, 2024 10:33
[2024-11-30] MEDS: levETIRAcetam 500 MG TAB PO SCH (11:19)
[2024-11-30] MEDS: ASPirin-EC 325mg tab PO SCH (11:20)
[2024-11-30] MEDS: CLOPIDOGREL BISULFATE 75 MG TAB PO SCH (11:20)
[2024-11-30] MEDS: GABAPENTIN 400 MG CAP PO SCH (11:20)
[2024-11-30] MEDS: RANOLAZINE ER 500 MG TAB PO SCH (11:21)
[2024-11-30 12:25] LABS: Urine Protein, UAD Negative (Negative)
--- NOTE | 2024-11-30 19:18 | DVHINCON2 ---
Date Seen: Nov 30, [address] Rosales Reason for Consultation Pacemaker and CAD History of Present Illness This is a 69-year-old male with a past medical history of HfpEF, CAD s/p multiple PCIs with unknown number of DESTINY, sick sinus syndrome s/p Micra leadless pacemaker implantation, hypertension, dyslipidemia, CKD, CVA, COPD, type 2 diabetes, obstructive sleep apnea, bacteremia, thyroidectomy, seizure disorder, chronic pain, morbid obesity, and bed-bound status who presents to the ED via EMS with a complaint of chest pressure that began last night while watching television. The patient is alert and oriented x3 and reports that the chest pain radiates to the left arm, back, and lower back. He denies diaphoresis, shortness of breath, or dyspnea. He reports a history of multiple left heart catheterization with multiple stents placed, the most recent approximately three months ago. Patient follows up with me in my office in the outpatient setting. He reports adherence to all prescribed medication, including aspirin, Plavix, statins, and antihypertensive. Chest x-ray showed cardiomegaly. Cardiology was consulted for evaluation of possible progressive CAD and mildly elevated troponins (86/81/73). Past Medical History As stated in HPI Past Surgical History As stated in HPI Family History: Alcoholism G8 MOTHER, Onset:Unknown Cancer G8 SISTER (uterine cancer) Cardiovascular disease G8 SISTER Cerebrovascular accident (CVA) G8 BROTHER Chronic obstructive pulmonary disease G8 SISTER Depression G8 SISTER Diabetes mellitus G8 SISTER G8 SISTER Family history: Cardiovascular disease Family history: Depression (situation) Family history: Hypertension Family history: Hypertension Glaucoma MATERNAL GPA Sepsis Stroke Stroke Allergies: Coded Allergies: NO KNOWN ALLERGIES (Unverified , 10/04/22) Home Meds Active Scripts Levofloxacin Hemihydrate (LEVAQUIN 500 MG) 500 Mg Tab, 1 TAB PO DAILY, #7 TAB Prov:ARON PERLA MD 09/16/24 Oxycodone W/ Acetaminophen (Percocet 5/325MG) 1 Tab Tb, 1 TAB PO QID, #40 TAB Prov:CYDNEY MCGARRY MD 09/01/24 Furosemide (Lasix) 40 Mg Tab, 40 MG PO BID for 30 Days, #60 TAB Prov:BK LAGUERRE MD 05/29/24 Prednisone (Prednisone) 20 Mg Tab, 40 MG PO DAILY for 5 Days, #5 MG Prov:BK LAGUERRE MD 05/29/24 Ranolazine (Ranexa) 500 Mg Tab, 500 MG PO BID for 30 Days, #60 TAB Prov:JUSTIN DUARTE MD 10/22/18 Reported Medications Oxycodone W/ Acetaminophen (Percocet 5/325MG) 1 Tab Tb, 2 TAB PO BIDPRN for CHRONIC PAIN, TAB 08/29/24 Budesonide-Formoterol Fumarate (Budesonide/Formoterol Fum 160-4.5 Mcg/Act) 1 Aer Aer, 2 PUFF IN BID for 30 Days, #10.2 02/26/24 Midodrine HCl (Midodrine Hydrochloride) 5 Mg Tab, 1 TAB PO TID for 30 Days, #90 02/26/24 Potassium Chloride (Potassium Chloride ER) 10 Meq Tab, 1 TAB PO BID for 30 Days, #60 02/26/24 Aspirin (Aspirin Regular Strength) 325 Mg Tab, 1 TAB PO DAILY for 30 Days, #30 02/26/24 Lactulose (Lactulose) 10 Gm/15 Ml Rachna, 15 ML PO BID PRN for 15 Days, #473 02/26/24 Atorvastatin Calcium (Lipitor) 80 Mg Tab, 1 TAB PO DAILY for 30 Days, #30 02/26/24 Levetiracetam (Levetiracetam) 750 Mg Tab, 1 TAB PO BID for 30 Days, #60 02/26/24 Lidocaine (Lidocaine Topical Pain Pa) 4 % Pad, 1 PATCH TOP DAILY 06/28/23 Gabapentin (Gabapentin) 800 Mg Tab, 1 TAB PO BID for 30 Days, #60 06/28/23 Ipratropium-Albuterol (COMBIVENT RESPIMAT) Respimat Aer, 1 PUFF INH QID 05/14/23 Methocarbamol (Methocarbamol) 500 Mg Tab, 1.5 TAB PO Q8HR PRN for 8 Days, #40 05/14/23 Dapagliflozin Propanediol (Farxiga) 10 Mg Tab, 1 TAB PO DAILY for 30 Days, #30 05/14/23 Beclomethasone Dipropionate (Qvar Redihaler) 80 Mcg/Act Aer, 1 PUFF INH BID for 30 Days, #10.6 02/27/23 Silver Sulfadiazine (Silver Sulfadiazine) 1 % Cre, 1 APPLIC TOP DAILY for 30 Days, #50 1/9/24 Oxybutynin Chloride (Ditropan Xl) 5 Mg Tab, 15 MG PO DAILY for 30 Days, #30 02/27/23 Trazodone Hcl (Trazodone Hcl) 100 Mg Tab, 4 TAB PO HS for 30 Days, #120 02/27/23 Clopidogrel Bisulfate (CLOPIDOGREL) 75 Mg Tab, 1 TAB PO DAILY for 30 Days, #30 02/07/23 Pantoprazole Sodium Sesquihydr (Pantoprazole Sodium) 40 Mg Tab, 1 TAB PO QAM 02/07/23 Bupropion Hcl (Bupropion Hcl) 75 Mg Tab, 2 TAB PO DAILY for 30 Days, #60 11/10/17 Current Medications Current Medications Medications (Trade) Dose Ordered Sig/Yvette Route PRN Reason Start Time Stop Time Status Last Admin Acetaminophen/ Hydrocodone Bitart ([place] 5/325MG Tab) 1 tab Q4HP PRN PO MODERATE PAIN (4-6 PAIN SCALE) 11/30/24 04:00 Morphine Sulfate 2 mg Q4HPRN PRN IV SEVERE PAIN (7-10 PAIN SCALE) 11/30/24 04:00 11/30/24 06:26 DC Nitroglycerin (Ntrostat Sublingual) 0.4 mg Q5MINP PRN SL FOR CHEST PAIN 11/30/24 04:00 Morphine Sulfate 2 mg Q30M PRN IV FOR CHEST PAIN 11/30/24 04:00 Aspirin (Ecotrin Enteric Coated Tablet) 325 mg DAILY PO 11/30/24 10:00 11/30/24 11:20 Clopidogrel Bisulfate (Plavix) 75 mg DAILY PO 11/30/24 10:00 11/30/24 11:20 Pantoprazole Sodium (Protonix Tablet) 40 mg QAM PO 11/30/24 07:00 11/30/24 06:09 Ranolazine (Ranexa ER) 500 mg BID PO 11/30/24 10:00 11/30/24 11:21 Patient Own Medication 1 tab DAILY PO 11/30/24 10:00 11/30/24 04:54 DC Patient Own Medication 1 tab BID PO 11/30/24 10:00 11/30/24 04:54 DC Patient Own Medication 1 tab BID PO 11/30/24 10:00 11/30/24 04:54 DC Atorvastatin Calcium (Lipitor) 80 mg HS PO 11/30/24 22:00 Gabapentin (Neurontin Capsule) 400 mg BID PO 11/30/24 10:00 11/30/24 11:20 Levetiracetam (Keppra Tablet) 750 mg BID PO 11/30/24 10:00 11/30/24 11:19 Ipratropium [place] (Atrovent Medneb) 0.5 mg Q4HPRN PRN NEB SHORTNESS OF BREATH 11/30/24 05:15 Albuterol (Ventolin Medneb) 1.25 mg Q4HPRN PRN NEB SHORTNESS OF BREATH 11/30/24 05:15 Hydromorphone HCl (Dilaudid Injection) 0.5 mg Q6HPRN PRN IV PAIN SCALE 7 THRU 10 11/30/24 06:15 11/30/24 13:04 Review of Systems Constitutional: No symptom reported Ears, Nose, & Throat: No symptom reported Eyes: No symptom reported Neurological: No symptoms reported Pulmonary/Respiratory: No symptom reported Cardiovascular: Chest pain Gastrointestinal: No symptom reported Genitourinary: No symptom reported Musculoskeletal: No symptom reported Skin: No symptom reported Psychiatric: No symptom reported Endocrine: No symptom reported Hemotologic/Lymphatic: No symptom reported Vital Signs Vital Signs Date Time Temp Pulse Resp B/P (MAP) Pulse Ox O2 Delivery O2 Flow Rate FiO2 11/30/24 13:35 61 16 101/50 11/30/24 08:00 97.1 97 97.1 11/30/24 08:00 Room Air* 0 21 Physical Exam GENERAL: Alert and oriented x 3. No acute distress. EYES: PERRL, EOMI. Anicteric. HENT: Moist mucous membranes. LUNGS: Clear to auscultation bilaterally. CARDIOVASCULAR: Regular rate and rhythm. ABDOMEN: Soft, nontender and nondistended. EXTREMITIES: No edema. NEUROLOGIC: No focal neurological deficits. SKIN: Warm, dry. Labs/Diagnostic Data Labs Test 11/30/24 11:40 11/30/24 07:26 11/30/24 05:19 11/30/24 02:56 Range/Units Urine Color Yellow Yellow Urine Clarity Clear Clear Urine pH 5.5 5.0-9.0 Urine Specific [place] 1.022 1.001-1.035 Urine Protein Negative Negative Urine Ketones Negative Negative Urine Blood Negative Negative /uL Urine Nitrite Negative Negative Urine Bilirubin Negative Negative Urine Urobilinogen Normal Negative mg/dL Urine Leukocyte Esterase Negative Negative /uL Urine RBC <1 0 - 3 /hpf Urine Microscopic WBC 2 0-3 /HPF Urine Squamous Epithelial Cells Few <5 /hpf Urine Bacteria None seen None Seen /hpf Urine Glucose Normal Normal mg/dL Sodium Level 143 136-145 mmol/L Potassium Level 3.9 3.5-5.1 mmol/L Chloride Level 105 98-107 mmol/L Carbon Dioxide Level 28 20-31 mmol/L Anion Gap 10 5-15 Blood Urea Nitrogen 34 #H 9-23 mg/dL Creatinine 1.29 0.700-1.30 mg/dL Glomerular Filtration Rate Calc 60 >90 mL/min BUN/Creatinine Ratio 26.4 H 10.0-20.0 Serum Glucose 93 74-106 mg/dL Calcium Level 8.5 L 8.7-10.4 mg/dL Total Bilirubin 0.3 0.2-1.0 mg/dL Aspartate Amino Transferase (AST) 32 13-40 U/L Alanine Aminotransferase (ALT) 23 7-40 U/L Alkaline Phosphatase 65 46-116 U/L Total Protein 6.6 5.7-8.2 g/dL Albumin 3.1 L 3.2-4.8 g/dL White Blood Count 9.2 4.4-10.8 10^3/uL Red Blood Count 3.64 L 4.5-5.90 10^6/uL Hemoglobin 10.0 L 13.5-17.5 g/dL Hematocrit 31.1 L 41.0-53.0 % Mean Corpuscular Volume 85.4 80.0-100.0 fL Mean Corpuscular Hemoglobin 27.4 L 28.0-32.0 pg Mean Corpuscular Hemoglobin Concent 32.0 32.0-36.0 g/dL Red Cell Distribution Width 18.0 H 11.8-14.3 % Platelet Count 207 140-450 10^3/uL Mean Platelet Volume 10.0 6.9-10.8 fL Neutrophils (%) (Auto) 46.1 37.0-80.0 % Lymphocytes (%) (Auto) 41.7 10.0-50.0 % Monocytes (%) (Auto) 8.1 0.0-12.0 % Eosinophils (%) (Auto) 2.8 0.0-7.0 % Basophils (%) (Auto) 1.3 0.0-2.0 % Neutrophils # (Auto) 4.2 1.6-8.6 10 ^3/uL Lymphocytes # (Auto) 3.8 0.4-5.4 10 ^3/uL Monocytes # (Auto) 0.7 0-1.3 10 ^3/uL Eosinophils # (Auto) 0.3 0-0.8 10 ^3/uL Basophils # (Auto) 0.1 0-0.2 10 ^3/uL Nucleated Red Blood Cells 0.2 % Troponin I High Sensitivity 73 *H </=54 ng/L Test 11/30/24 00:00 Range/Units B-Type Natriuretic Peptide 131.90 0-100 pg/mL Assessment Atypical chest pain likely nonischemic are stable angina equivalent given downtrending troponins and absence of new EKG changes. Acute on chronic decompensated HFpEF, NYHA Class III. Coronary artery disease status post multiple PTCAs with stent placement. NSTEMI likely type 2 due to extensive cardiac history. Presence of micra leadless pacemaker. Hypertension. Dyslipidemia. COPD. Chronic pain syndrome. Morbid obesity. Plan/Recommendation I agree with your ongoing assessment and care of plan. Patient has been seen by Sandra Moon NP on my behalf, her and I discussed the plan with the patient. Recent transesophageal echocardiogram reveals Normal LV size and function, LVEF estimated at 60% severe LVH. Continue chest pain protocol with telemetry monitoring. Maintain dual antiplatelet therapy. Continue statins and beta pippa/antihypertensive regimen as tolerated. Monitor serial troponins and EKG for dynamic changes. Continue outpatient follow-up with me in my office. Mildly elevated, downtrending troponin with atypical chest pain in a patient with extensive CAD and multiple prior stents--no EKG evidence of acute ischemia. Findings consistent with stable angina/demand ischemia rather than acute coronary syndrome. Continue optimal medical therapy and close outpatient cardiology follow-up. Additional plan as per the hospital course. Plan discussed with: Patient NYHA Physical activity limitations: Class3(Marked) ordinary Date of Service: Nov 30, 2024 Billing Provider: ROHINI ABARCA MD Cardiology Common Codes: [id number] INP/OBS CARE (High) Cardiology Consultation Codes: [id number] CONSULT <45MIN ROHINI ABARCA MD Nov 30, 2024 14:49
[2024-11-30] MEDS: ATORVASTATIN 20 MG TAB PO SCH (21:12)
[2024-12-01] VITALS (9 sets, daily range): BP systolic 105–160; BP diastolic 55–80; PULSE 50–93; RESP 16–84; TEMP 98–98.5; O2SAT 94–99
--- NOTE | 2024-12-01 06:32 | DVH ---
CHEST RADIOGRAPH Indication: fu Technique: Single frontal view of the chest was obtained COMPARISON: XY CHEST PORTABLE on DOS: 11/29/24, XR CHEST 1 VIEW on DOS: 11/28/24, XR CHEST 1 VIEW on DOS: 11/25/24, XR CHEST 1 VIEW on DOS: 11/19/24, XR CHEST 1 VIEW on DOS: 10/27/24 FINDINGS: Lines and Tubes: None Lungs: Mild congestion Pleura: No effusion. No pneumothorax. Cardiomediastinal contours: Cardiac megaly Bones: Unremarkable IMPRESSION: No significant interval change
--- NOTE | 2024-12-01 14:49 | DVHPN2 ---
Reviewed: Care Plan, H&P, Labs, Medications, Previous Orders, Radiology Changes from previous H/P or p: No Changes General: Per HPI Objective Vitals Vital Signs Date Time Temp Pulse Resp B/P (MAP) Pulse Ox O2 Delivery O2 Flow Rate FiO2 12/01/24 14:00 98.4 93 20 105/55 (72) 96 98.4 12/01/24 08:00 Room Air* 0 21 Intake/Output Intake and Output 12/01/24 07:00 Intake Total 1540 ml Output Total 700 ml Balance 840 ml Intake Oral 1540 ml Output Urine Total 700 ml # Voids 21 Exam INITIAL VITAL SIGNS: Reviewed by me GENERAL: Alert and interactive. No acute distress. HEAD: Head is normocephalic and atraumatic. EYES: EOMI, PERRL. No scleral icterus. No conjunctival injection. ENT: Moist mucous membranes. NECK: Supple, No masses, Full range of motion. RESPIRATORY: No tachypnea. Clear breath sounds bilaterally. No wheezing, rales, rhonchi. CV: Regular rate and rhythm. GI/: Active bowel sounds, soft, nondistended, nontender. No guarding. No rebound. No masses. No CVA tenderness. INTEGUMENTARY: Warm and dry. No obvious rashes. NEUROLOGIC: Alert and oriented. General Appearance: Alert, Oriented X3, Cooperative, No acute distress HEENT: Atraumatic Lungs: Clear to auscultation Cardiovascular: Regular rate Extremities: Other (Trace bilateral lower extremity edema) Medications Current Medications Medications Dose Ordered Sig/Yvette Route Start Time Stop Time Status Last Admin Dose Admin Acetaminophen/ Hydrocodone Bitart 1 tab Q4HP PRN PO 11/30/24 04:00 Nitroglycerin 0.4 mg Q5MINP PRN SL 11/30/24 04:00 Morphine Sulfate 2 mg Q30M PRN IV 11/30/24 04:00 Aspirin 325 mg DAILY PO 11/30/24 10:00 12/01/24 10:37 325 MG Clopidogrel Bisulfate 75 mg DAILY PO 11/30/24 10:00 12/01/24 10:38 75 MG Pantoprazole Sodium 40 mg QAM PO 11/30/24 07:00 12/01/24 06:06 40 MG Ranolazine 500 mg BID PO 11/30/24 10:00 12/01/24 10:38 500 MG Atorvastatin Calcium 80 mg HS PO 11/30/24 22:00 11/30/24 21:12 80 MG Gabapentin 400 mg BID PO 11/30/24 10:00 12/01/24 10:38 400 MG Levetiracetam 750 mg BID PO 11/30/24 10:00 12/01/24 10:38 750 MG Ipratropium [place] 0.5 mg Q4HPRN PRN NEB 11/30/24 05:15 Albuterol 1.25 mg Q4HPRN PRN NEB 11/30/24 05:15 Hydromorphone HCl 0.5 mg Q6HPRN PRN IV 11/30/24 06:15 12/01/24 13:47 0.5 MG Laboratory Results Laboratory Tests 11/30/24 05:19 11/30/24 07:26 Cardiac Markers Test 12/01/24 07:50 B-Type Natriuretic Peptide 168.68 pg/mL (0-100) Urinalysis Test 11/30/24 11:40 Urine Color Yellow (Yellow) Urine Clarity Clear (Clear) Urine pH 5.5 (5.0-9.0) Urine Specific [place] 1.022 (1.001-1.035) Urine Protein Negative (Negative) Urine Ketones Negative (Negative) Urine Blood Negative /uL (Negative) Urine Nitrite Negative (Negative) Urine Bilirubin Negative (Negative) Urine Urobilinogen Normal mg/dL (Negative) Urine Leukocyte Esterase Negative /uL (Negative) Urine RBC <1 /hpf (0 - 3) Urine Microscopic WBC 2 /HPF (0-3) Urine Squamous Epithelial Cells Few /hpf (<5) Urine Bacteria None seen /hpf (None Seen) Urine Glucose Normal mg/dL (Normal) Microbiology Microbiology Date/Time Source Procedure Growth Status 12/01/24 05:20 Nose MRSA Screen - Final Methicillin Resistant S.aureus Complete Labs and/or images reviewed: Labs reviewed by me, Image(s) reviewed by me Assessment/Plan Assessment/Plan 12/01: Patient continues to complain of chest pain. Described it as pressure substernal radiating to left and. Pain is very typical of and concerning of cardiac nature, we will repeat troponins continue telemetry for another 24 hour. Recent GENO normal LV and function LVEF 60% but has severe LVH. On exam patient looks euvolemic. Patient has been melasma on the face. Diagnosis: Atypical chest pain, possible costochondritis Stable angina possible Acute on chronic decompensated HFpEF, NYHA Class III Coronary artery disease status post multiple PTCAs with stent placement NSTEMI likely type 2 due to extensive cardiac history Presence of micra leadless pacemaker Hypertension Dyslipidemia COPD Chronic pain syndrome Morbid obesity Plan: Recent GENO with normal LV and function and LVEF 60%, severe LVH. Continue telemetry -continue home meds Appreciate cardiology consult following Telemetry Full code Plan discussed with: Patient Date of Service: Dec 01, 2024 Billing Provider: AMANDA RODRÍGUEZ MD Common Visit Codes: [id number] INP/OBS CARE(HIGH) AMANDA RODRÍGUEZ MD Dec 01, 2024 14:49
--- NOTE | 2024-12-01 23:16 | DVHPN2 ---
Progress Note - Dictate Date Seen: Dec 01, 2024 Medical Necessity Reason Pt with a Central, PICC or Fol: No Subjective Patient was seen and evaluated in follow up. Patient is on 2 LPM NC. Troponin 45. MRSA is positive. Chest x-ray shows mild congestion. Telemetry reviewed. vital signs Vital Sign Date Time Temp Pulse Resp B/P (MAP) Pulse Ox O2 Delivery O2 Flow Rate FiO2 12/01/24 20:45 64 20 135/75 12/01/24 20:38 98.0 98 98.0 12/01/24 08:00 Room Air* 0 21 Total Intake and Output 11/30/24 11/30/24 12/01/24 15:00 23:00 07:00 Intake Total 690 ml 850 ml Output Total 700 ml Balance 690 ml 150 ml medications Current Medications Medications Dose Ordered Sig/Yvette Route Start Time Stop Time Status Last Admin Dose Admin Acetaminophen/ Hydrocodone Bitart 1 tab Q4HP PRN PO 11/30/24 04:00 Nitroglycerin 0.4 mg Q5MINP PRN SL 11/30/24 04:00 Morphine Sulfate 2 mg Q30M PRN IV 11/30/24 04:00 Aspirin 325 mg DAILY PO 11/30/24 10:00 12/01/24 10:37 325 MG Clopidogrel Bisulfate 75 mg DAILY PO 11/30/24 10:00 12/01/24 10:38 75 MG Pantoprazole Sodium 40 mg QAM PO 11/30/24 07:00 12/01/24 06:06 40 MG Ranolazine 500 mg BID PO 11/30/24 10:00 12/01/24 21:08 500 MG Atorvastatin Calcium 80 mg HS PO 11/30/24 22:00 12/01/24 21:08 80 MG Gabapentin 400 mg BID PO 11/30/24 10:00 12/01/24 21:08 400 MG Levetiracetam 750 mg BID PO 11/30/24 10:00 12/01/24 21:08 750 MG Ipratropium [place] 0.5 mg Q4HPRN PRN NEB 11/30/24 05:15 Albuterol 1.25 mg Q4HPRN PRN NEB 11/30/24 05:15 Hydromorphone HCl 0.5 mg Q6HPRN PRN IV 11/30/24 06:15 12/01/24 20:45 0.5 MG objective GENERAL: Alert and oriented x 3. No acute distress. EYES: PERRL, EOMI. Anicteric. HENT: Moist mucous membranes. LUNGS: Clear to auscultation bilaterally. CARDIOVASCULAR: Regular rate and rhythm. ABDOMEN: Soft, nontender and nondistended. EXTREMITIES: No edema. NEUROLOGIC: No focal neurological deficits. SKIN: Warm, dry. laboratory and microbiology Laboratory Tests 11/30/24 07:26 11/30/24 05:19 Test 11/30/24 07:26 Range/Units Serum Glucose 93 74-106 mg/dL Problem List Atypical chest pain likely nonischemic or stable angina. Acute on chronic decompensated HFpEF, NYHA Class III. Coronary artery disease status post multiple PTCAs with stent placement. NSTEMI likely type 2 due to extensive cardiac history. Presence of micra leadless pacemaker. Hypertension. Dyslipidemia. COPD. Chronic pain syndrome. Morbid obesity. Assessment/Plan Continued all current supportive medical care. Dilaudid and [place] for pain management. Aspirin, Lipitor, Plavix. Nitro SL. GI prophylactics. Additional plan as per the hospital course. Plan discussed with: Patient ROHINI ABARCA MD Dec 01, 2024 23:16
[2024-12-02] VITALS (9 sets, daily range): BP systolic 120–141; BP diastolic 66–76; PULSE 52–58; RESP 16–20; TEMP 36.8; O2SAT 97–100
[2024-12-02] MEDS: NITROGLYCERIN 0.4 MG SL TAB SL PRN (00:32)
--- NOTE | 2024-12-02 00:34 | ECG ---
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
[2024-12-02 07:12] LABS: Hematocrit 30.1 % (41.0-53.0); Hemoglobin 9.7 g/dL (13.5-17.5); Mean Corpuscular Hemoglobin 27.8 pg (28.0-32.0); Mean Corpuscular Volume 86.4 fL (80.0-100.0); Nucleated Red Blood Cells % 0.1 %
[2024-12-02 07:25] LABS: Alanine Aminotransferase 22 U/L (7-40); Alkaline Phosphatase 53 U/L (46-116); Anion Gap 8 (5-15); BUN/Creatinine Ratio 17.7 (10.0-20.0); Bilirubin, Total 0.3 mg/dL (0.2-1.0); Carbon Dioxide 26 mmol/L (20-31); Glucose 84 mg/dL (74-106); Potassium 4.3 mmol/L (3.5-5.1); Sodium 142 mmol/L (136-145); Total Protein 6.8 g/dL (5.7-8.2)
[2024-12-02 07:26] LABS: Albumin 3.2 g/dL (3.2-4.8); Blood Urea Nitrogen 26 mg/dL (9-23); Calcium 8.5 mg/dL (8.7-10.4); Chloride 108 mmol/L (98-107)
[2024-12-02] MEDS ORDERED: BACL10TA PO (13:45)
[2024-12-02] MEDS ORDERED: HYDR-4902 PO (13:45)
--- NOTE | 2024-12-02 13:48 | DVHDS2 ---
Discharge Summary Date of Admission Nov 30, 2024 at 03:59 Date of Discharge: Dec 02, 2024 Labs/Diagnostic Data: Laboratory Results Test 12/02/24 06:19 12/01/24 17:50 12/01/24 07:50 11/30/24 11:40 White Blood Count 6.8 10^3/uL (4.4-10.8) Red Blood Count 3.48 10^6/uL (4.5-5.90) Hemoglobin 9.7 g/dL (13.5-17.5) Hematocrit 30.1 % (41.0-53.0) Mean Corpuscular Volume 86.4 fL (80.0-100.0) Mean Corpuscular Hemoglobin 27.8 pg (28.0-32.0) Mean Corpuscular Hemoglobin Concent 32.1 g/dL (32.0-36.0) Red Cell Distribution Width 18.3 % (11.8-14.3) Platelet Count 219 10^3/uL (140-450) Mean Platelet Volume 9.6 fL (6.9-10.8) Neutrophils (%) (Auto) 51.8 % (37.0-80.0) Lymphocytes (%) (Auto) 35.1 % (10.0-50.0) Monocytes (%) (Auto) 8.5 % (0.0-12.0) Eosinophils (%) (Auto) 4.0 % (0.0-7.0) Basophils (%) (Auto) 0.6 % (0.0-2.0) Neutrophils # (Auto) 3.5 10 ^3/uL (1.6-8.6) Lymphocytes # (Auto) 2.4 10 ^3/uL (0.4-5.4) Monocytes # (Auto) 0.6 10 ^3/uL (0-1.3) Eosinophils # (Auto) 0.3 10 ^3/uL (0-0.8) Basophils # (Auto) 0 10 ^3/uL (0-0.2) Nucleated Red Blood Cells 0.1 % Sodium Level 142 mmol/L (136-145) Potassium Level 4.3 mmol/L (3.5-5.1) Chloride Level 108 mmol/L (98-107) Carbon Dioxide Level 26 mmol/L (20-31) Anion Gap 8 (5-15) Blood Urea Nitrogen 26 mg/dL (9-23) Creatinine 1.47 mg/dL (0.700-1.30) Glomerular Filtration Rate Calc 51 mL/min (>90) BUN/Creatinine Ratio 17.7 (10.0-20.0) Serum Glucose 84 mg/dL (74-106) Calcium Level 8.5 mg/dL (8.7-10.4) Total Bilirubin 0.3 mg/dL (0.2-1.0) Aspartate Amino Transferase (AST) 26 U/L (13-40) Alanine Aminotransferase (ALT) 22 U/L (7-40) Alkaline Phosphatase 53 U/L (46-116) Total Protein 6.8 g/dL (5.7-8.2) Albumin 3.2 g/dL (3.2-4.8) Troponin I High Sensitivity 45 ng/L (</=54) B-Type Natriuretic Peptide 168.68 pg/mL (0-100) Urine Color Yellow (Yellow) Urine Clarity Clear (Clear) Urine pH 5.5 (5.0-9.0) Urine Specific [place] 1.022 (1.001-1.035) Urine Protein Negative (Negative) Urine Ketones Negative (Negative) Urine Blood Negative /uL (Negative) Urine Nitrite Negative (Negative) Urine Bilirubin Negative (Negative) Urine Urobilinogen Normal mg/dL (Negative) Urine Leukocyte Esterase Negative /uL (Negative) Urine RBC <1 /hpf (0 - 3) Urine Microscopic WBC 2 /HPF (0-3) Urine Squamous Epithelial Cells Few /hpf (<5) Urine Bacteria None seen /hpf (None Seen) Urine Glucose Normal mg/dL (Normal) Other Laboratory Tests 12/02/24 06:19 Brief Hx & Hospital Course: 69 YO M with a history of CAD, S/P PCI, COPD requiring oxygen therapy as needed at 2 liters ,Hypertension , High cholesterol presenting with chest pain. The patient was lying in bed when his chest started pounding, which then progressed and radiated from his chest to his left arm and down his back. He describes the pain as pressure and rates the current severity as 9 out of 10. He received some pain medication earlier but continues to have pain. The patient has a history of chest pain and is followed by Dr. 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 He has a pacemaker and 5 stens. The patient has additional medical conditions including COPD and uses 2 liters of oxygen at home as needed. He quit smoking approximately 10 years ago. The patient lives with his sister and reports difficulty walking, requiring him to stay at home. 12/01: Patient continues to complain of chest pain. Described it as pressure substernal radiating to left and. Pain is very typical of and concerning of cardiac nature, we will repeat troponins continue telemetry for another 24 hour. Recent GENO normal LV and function LVEF 60% but has severe LVH. On exam patient looks euvolemic. Patient has been melasma on the face. 12/02: patient Tn continue to decline, unconcerning signs on tele. Pacemaker barely requiring pacing, heart rate in 50s, asymptomatic. Patient continues to ask for IV opiates, concern for pain seeking behavior. Cardiology has cleared the patient. Patient vital signs stable, stable for discharge as per plan below. - reviewed CURES, will give short course norco 5. Diagnosis: Atypical chest pain, possible costochondritis acs ruled out Stable angina possible Acute on chronic decompensated HFpEF, NYHA Class III Coronary artery disease status post multiple PTCAs with stent placement NSTEMI likely type 2 due to extensive cardiac history Presence of micra leadless pacemaker Hypertension Dyslipidemia COPD Chronic pain syndrome Morbid obesity Plan: - continue home medications - short course norco 5. upto 3x/day only as needed (if 1st line Tylenol isn't sufficient to control pain). Do not use NSAIDs for control of pain, they have concerning reactions with home medications and contraindicated for patients with history of heart disease. - baclofen 10 mg b.i.d. for 7 days - Follow up with PCP to review discharge Condition at Discharge: Fair Final Diagnosis/Problems List Atypical chest pain, possible costochondritis acs ruled out Stable angina possible Acute on chronic decompensated HFpEF, NYHA Class III Coronary artery disease status post multiple PTCAs with stent placement NSTEMI likely type 2 due to extensive cardiac history Presence of micra leadless pacemaker Hypertension Dyslipidemia COPD Chronic pain syndrome Morbid obesity Discharge Disposition: Home Discharge Instruct/Medications Scheduled Aspirin (Aspirin Regular Strength), 1 TAB PO DAILY, (Reported) Atorvastatin Calcium (Lipitor), 1 TAB PO DAILY, (Reported) Beclomethasone Dipropionate (Qvar Redihaler), 1 PUFF INH BID, (Reported) Budesonide-Formoterol Fumarate (Budesonide/Formoterol Fum 160-4.5 Mcg/Act), 2 PUFF IN BID, (Reported) Bupropion Hcl (Bupropion Hcl), 2 TAB PO DAILY, (Reported) Clopidogrel Bisulfate (Clopidogrel), 1 TAB PO DAILY, (Reported) Dapagliflozin Propanediol (Farxiga), 1 TAB PO DAILY, (Reported) Furosemide (Lasix), 40 MG PO BID Gabapentin (Gabapentin), 1 TAB PO BID, (Reported) Ipratropium-Albuterol (Combivent Respimat), 1 PUFF INH QID, (Reported) Lactulose (Lactulose), 15 ML PO BID PRN, (Reported) Levetiracetam (Levetiracetam), 1 TAB PO BID, (Reported) Levofloxacin Hemihydrate (Levaquin 500 Mg), 1 TAB PO DAILY Lidocaine (Lidocaine Topical Pain Pa), 1 PATCH TOP DAILY, (Reported) Methocarbamol (Methocarbamol), 1.5 TAB PO Q8HR PRN, (Reported) Midodrine HCl (Midodrine Hydrochloride), 1 TAB PO TID, (Reported) Oxybutynin Chloride (Ditropan Xl), 15 MG PO DAILY, (Reported) Oxycodone W/ Acetaminophen (Percocet 5/325MG), 2 TAB PO BIDPRN, (Reported) Oxycodone W/ Acetaminophen (Percocet 5/325MG), 1 TAB PO QID Pantoprazole Sodium Sesquihydr (Pantoprazole Sodium), 1 TAB PO QAM, (Reported) Potassium Chloride (Potassium Chloride ER), 1 TAB PO BID, (Reported) Prednisone (Prednisone), 40 MG PO DAILY Ranolazine (Ranexa), 500 MG PO BID Silver Sulfadiazine (Silver Sulfadiazine), 1 APPLIC TOP DAILY, (Reported) Trazodone Hcl (Trazodone Hcl), 4 TAB PO HS, (Reported) Discharge Statement: "Patient was advised to return to the ER or call 911 if any headaches, dizziness, shortness of breath, chest pain, abdominal pain, bleeding, fevers, or worsening of medical condition. Patient was counseled about treatment plan, medications, possible side effects, patientverbalized understanding. All questions were answered to the best of my ability. This discharge took greater then 30 minutes in planning, reviewing documentation, counseling the patient, and discussing with other team members." ASSESSMENT ASSESSMENT Assessment Date of Service: Dec 02, 2024 Billing Provider: AMANDA RODRÍGUEZ MD Common Visit Codes: 43195-FYL/OBS DISCH DAY >30min AMANDA RODRÍGUEZ MD Dec 02, 2024 13:47
--- NOTE | 2024-12-03 02:49 | DVHPN2 ---
Progress Note - Dictate Date Seen: Dec 02, 2024 Medical Necessity Reason Pt with a Central, PICC or Fol: No Subjective Patient was seen and evaluated in follow up. Patient is on 2 LPM NC. Patient complains of chest pain/tightness. HGB 9.7, HCT 30.1, CL 108, BUN 26, MAITRE D' 1.47,CA 8.5. Telemetry reviewed. vital signs Vital Sign Date Time Temp Pulse Resp B/P (MAP) Pulse Ox O2 Delivery O2 Flow Rate FiO2 12/02/24 13:00 98.4 52 18 120/66 (84) 97 98.4 12/02/24 09:59 Nasal Cannula* 2 28 Total Intake and Output 12/01/24 12/01/24 12/02/24 15:00 23:00 07:00 Intake Total 450 ml 1500 ml 1300 ml Output Total 1600 ml Balance 450 ml 1500 ml -300 ml medications Current Medications Medications Dose Ordered Sig/Yvette Route Start Time Stop Time Status Last Admin Dose Admin Acetaminophen/ Hydrocodone Bitart 1 tab Q4HP PRN PO 11/30/24 04:00 Nitroglycerin 0.4 mg Q5MINP PRN SL 11/30/24 04:00 12/02/24 00:32 0.4 MG Morphine Sulfate 2 mg Q30M PRN IV 11/30/24 04:00 Clopidogrel Bisulfate 75 mg DAILY PO 11/30/24 10:00 12/02/24 10:52 75 MG Pantoprazole Sodium 40 mg QAM PO 11/30/24 07:00 12/02/24 06:11 40 MG Ranolazine 500 mg BID PO 11/30/24 10:00 12/02/24 10:52 500 MG Atorvastatin Calcium 80 mg HS PO 11/30/24 22:00 12/01/24 21:08 80 MG Gabapentin 400 mg BID PO 11/30/24 10:00 12/02/24 10:52 400 MG Levetiracetam 750 mg BID PO 11/30/24 10:00 12/02/24 10:52 750 MG Ipratropium [place] 0.5 mg Q4HPRN PRN NEB 11/30/24 05:15 Albuterol 1.25 mg Q4HPRN PRN NEB 11/30/24 05:15 Hydromorphone HCl 0.5 mg Q6HPRN PRN IV 11/30/24 06:15 12/02/24 11:10 0.5 MG Aspirin 81 mg DAILY PO 12/03/24 10:00 objective GENERAL: Alert and oriented x 3. No acute distress. EYES: PERRL, EOMI. Anicteric. HENT: Moist mucous membranes. LUNGS: Clear to auscultation bilaterally. CARDIOVASCULAR: Regular rate and rhythm. ABDOMEN: Soft, nontender and nondistended. EXTREMITIES: No edema. NEUROLOGIC: No focal neurological deficits. SKIN: Warm, dry. laboratory and microbiology Laboratory Tests 12/02/24 06:19 Test 12/02/24 06:19 Range/Units Serum Glucose 84 74-106 mg/dL Problem List Atypical chest pain likely nonischemic or stable angina. Acute on chronic decompensated HFpEF, NYHA Class III. Coronary artery disease status post multiple PTCAs with stent placement. NSTEMI likely type 2 due to extensive cardiac history. Presence of micra leadless pacemaker. Hypertension. Dyslipidemia. COPD. Chronic pain syndrome. Morbid obesity. Assessment/Plan Continued all current supportive medical care. Nitro SL. Aspirin, Plavix. GI prophylactics. Dilaudid and Mat[place]y for pain management. Additional plan as per the hospital course. Plan discussed with: Patient ROHINI ABARCA MD Dec 02, 2024 15:08
== END 2024-12-02 21:00 | disposition home or self-care (01) | DRG 205 ==
LOC: EDBD 20:41 → ER 20:45 → OVERFLOW 11-30 03:59 → TELE-WESTW 11-30 17:47
PROVIDERS: ADMIT Student in an Organized Health Care Education/Training Program; ATTEND Student in an Organized Health Care Education/Training Program
DX: M94.0 Chondrocostal junction syndrome [Tietze] (principal); I21.A1 Myocardial infarction type 2; I50.33 Acute on chronic diastolic (congestive) heart failure; I24.9 Acute ischemic heart disease, unspecified; Z68.41 Body mass index [BMI] 40.0-44.9, adult; I11.0 Hypertensive heart disease with heart failure; J44.9 Chronic obstructive pulmonary disease, unspecified; E66.01 Morbid (severe) obesity due to excess calories; D64.9 Anemia, unspecified; E11.9 Type 2 diabetes mellitus without complications; E89.0 Postprocedural hypothyroidism; F32.A Depression, unspecified; F41.9 Anxiety disorder, unspecified; K21.9 Gastro-esophageal reflux disease without esophagitis; R26.2 Difficulty in walking, not elsewhere classified; E78.00 Pure hypercholesterolemia, unspecified; G47.33 Obstructive sleep apnea (adult) (pediatric); G40.909 Epilepsy, unspecified, not intractable, without status epilepticus; G89.4 Chronic pain syndrome; I25.2 Old myocardial infarction; J44.89 Other specified chronic obstructive pulmonary disease; Z81.8 Family history of other mental and behavioral disorders; Z82.3 Family history of stroke; Z82.49 Family history of ischemic heart disease and other diseases of the circulatory system; Z82.5 Family history of asthma and other chronic lower respiratory diseases; Z83.3 Family history of diabetes mellitus; Z86.73 Personal history of transient ischemic attack (TIA), and cerebral infarction without residual deficits; Z87.891 Personal history of nicotine dependence; Z95.0 Presence of cardiac pacemaker; Z98.61 Coronary angioplasty status; Z79.82 Long term (current) use of aspirin; Z79.01 Long term (current) use of anticoagulants; Z79.899 Other long term (current) drug therapy
CPT/HCPCS: 36415; 71045; 80048; 80053; 81001; 83880; 84484; 85025; 87081; 93005; 99291; G0378

== ENCOUNTER 2024-12-06 23:49 | Inpatient (IN) | payer BC, OTHER ==
[~2024-12-06] VITALS: Ht 172.7 cm; Wt 138.0 kg
[~2024-12-06 23:49] MED LIST changes: +BACL10TA PO; +HYDR-4902 PO; -LEVO500T91 PO; -METH-1181 PO; -PERCOT PO; -PRED20TA2 PO
--- NOTE | 2024-12-07 00:12 | ED.PDOC ---
HPI Comments 69 year old male who came to ER via EMS for chest pains. Patient was discharged here 4 days ago, diagnosed with 1. Atypical chest pain, possible costochondritis/ acs ruled out, 2. Stable angina possible, 3. Acute on chronic decompensated HFpEF, NYHA Class III, 4. Coronary artery disease status post multiple PTCAs with stent placement, 5. NSTEMI likely type 2 due to extensive cardiac history, 6. Presence of micra leadless pacemaker, 7. Hypertension , 8. Dyslipidemia, 9. COPD,10. Chronic pain syndrome , 11. Morbid obesity Patient picked up by the home, about an hour ago, developed sudden onset subs ternal chest pains, pressure, 9/10 intensity, radiating to his left arm and back, associated with shortness of breath. Chief Complaint: Chest Pain Time Seen by MD: 00:11 Primary Care Provider: marie William Notes: International Tax Manager Notes Allergies: Coded Allergies: NO KNOWN ALLERGIES (Unverified , 10/04/22) Home Meds Active Scripts Baclofen (Baclofen) 10 Mg Tab, 10 MG PO BID for 7 Days, #14 TAB 0 Refills Prov:AMANDA RODRÍGUEZ MD 12/02/24 Hydrocodone-Acetaminophen (Hydrocodone Bitartrate/AC 5-325 mg) 1 Tab Tab, 1 TAB PO TIDP PRN for 7 Days, #21 TAB 0 Refills Prov:AMANDA RODRÍGUEZ MD 12/02/24 Furosemide (Lasix) 40 Mg Tab, 40 MG PO BID for 30 Days, #60 TAB Prov:BK LAGUERRE MD 05/29/24 Ranolazine (Ranexa) 500 Mg Tab, 500 MG PO BID for 30 Days, #60 TAB Prov:JUSTIN DUARTE MD 10/22/18 Reported Medications Budesonide-Formoterol Fumarate (Budesonide/Formoterol Fum 160-4.5 Mcg/Act) 1 Aer Aer, 2 PUFF IN BID for 30 Days, #10.2 02/26/24 Midodrine HCl (Midodrine Hydrochloride) 5 Mg Tab, 1 TAB PO TID for 30 Days, #90 02/26/24 Potassium Chloride (Potassium Chloride ER) 10 Meq Tab, 1 TAB PO BID for 30 Days, #60 02/26/24 Aspirin (Aspirin Regular Strength) 325 Mg Tab, 1 TAB PO DAILY for 30 Days, #30 02/26/24 Lactulose (Lactulose) 10 Gm/15 Ml Rachna, 15 ML PO BID PRN for 15 Days, #473 02/26/24 Atorvastatin Calcium (Lipitor) 80 Mg Tab, 1 TAB PO DAILY for 30 Days, #30 02/26/24 Levetiracetam (Levetiracetam) 750 Mg Tab, 1 TAB PO BID for 30 Days, #60 02/26/24 Lidocaine (Lidocaine Topical Pain Pa) 4 % Pad, 1 PATCH TOP DAILY 06/28/23 Gabapentin (Gabapentin) 800 Mg Tab, 1 TAB PO BID for 30 Days, #60 06/28/23 Ipratropium-Albuterol (COMBIVENT RESPIMAT) Respimat Aer, 1 PUFF INH QID 05/14/23 Dapagliflozin Propanediol (Farxiga) 10 Mg Tab, 1 TAB PO DAILY for 30 Days, #30 05/14/23 Beclomethasone Dipropionate (Qvar Redihaler) 80 Mcg/Act Aer, 1 PUFF INH BID for 30 Days, #10.6 02/27/23 Silver Sulfadiazine (Silver Sulfadiazine) 1 % Cre, 1 APPLIC TOP DAILY for 30 Days, #50 02/27/23 Oxybutynin Chloride (Ditropan Xl) 5 Mg Tab, 15 MG PO DAILY for 30 Days, #30 02/27/23 Trazodone Hcl (Trazodone Hcl) 100 Mg Tab, 4 TAB PO HS for 30 Days, #120 02/27/23 Clopidogrel Bisulfate (CLOPIDOGREL) 75 Mg Tab, 1 TAB PO DAILY for 30 Days, #30 02/07/23 Pantoprazole Sodium Sesquihydr (Pantoprazole Sodium) 40 Mg Tab, 1 TAB PO QAM 02/07/23 Bupropion Hcl (Bupropion Hcl) 75 Mg Tab, 2 TAB PO DAILY for 30 Days, #60 11/10/17 Discontinued Reported Medications Oxycodone W/ Acetaminophen (Percocet 5/325MG) 1 Tab Tb, 2 TAB PO BIDPRN for CHRONIC PAIN, TAB 08/29/24 Methocarbamol (Methocarbamol) 500 Mg Tab, 1.5 TAB PO Q8HR PRN for 8 Days, #40 05/14/23 Discontinued Scripts Levofloxacin Hemihydrate (LEVAQUIN 500 MG) 500 Mg Tab, 1 TAB PO DAILY, #7 TAB Prov:ARON PERLA MD 09/16/24 Oxycodone W/ Acetaminophen (Percocet 5/325MG) 1 Tab Tb, 1 TAB PO QID, #40 TAB Prov:CYDNEY MCGARRY MD 09/01/24 Prednisone (Prednisone) 20 Mg Tab, 40 MG PO DAILY for 5 Days, #5 MG Prov:BK LAGUERRE MD 05/29/24 Information Source: Patient, Emergency Med Personnel Mode of Arrival: EMS Severity: Moderate Timing: Hours Duration: Since onset Prehospital treatment: 12 Lead EKG, Oxygen Location: Substernal Radiation: Back, Arm (L) Quality: Pressure Onset: With Light Exertion Cardiac Risk Factors: HTN History of: Similar pain in past, [place] Associated Signs and Symptoms: SOB, Diaphoresis Past Medical History PAST MEDICAL HISTORY: Angina, Anxiety, Asthma, CAD, CHF, CKF, COPD, CVA, Depression, DM, GERD, High Lipids, HTN, Liver, [place], TIA, UTI'S Surgical History: Appendectomy, Cholecystectomy, PTCA, Thyroidectomy Family History Family History: Reviewed,noncontributory to illness, Unknown Social History Smoker: Non-Smoker Alcohol: Denies ETOH Use Drugs: Denies Drug Use Lives In: Home Constitutional: denies: chills, diaphoresis, fatigue, fever, malaise, sweats, weakness, others EENTM: denies: blurred vision, double vision, ear bleeding, ear discharge, ear drainage, ear pain, ear ringing, eye pain, eye redness, hearing loss, mouth pain, mouth swelling, nasal discharge, nose bleeding, nose congestion, nose pain, photophobia, tearing, throat pain, throat swelling, voice changes, others Respiratory: reports: shortness of breath; denies: cough, hemoptysis, orthopnea, SOB at rest, SOB with excertion, stridor, wheezing, others Cardiovascular: reports: chest pain; denies: dizzy spells, diaphoresis, Dyspnea on exertion, edema, irregular heart beat, left arm pain, lightheadedness, palpitations, PND, syncope, others Gastrointestinal: denies: abdomen distended, abdominal pain, blood streaked bowels, constipated, diarrhea, dysphagia, difficulty swallowing, hematemesis, melena, nausea, poor appetite, poor fluid intake, rectal bleeding, rectal pain, vomiting, others Genitourinary: denies: burning, dysuria, flank pain, frequency, hematuria, incontinence, penile discharge, penile sore, pain, testicle pain, testicle swelling, urgency, others Neurological: denies: dizziness, fainting, headache, left sided numbness, left sided weakness, numbness, paresthesia, pre-existing deficit, right sided numbness, right sided weakness, seizure, speech problems, tingling, tremors, weakness, others Musculoskeletal: denies: back pain, gout, joint pain, joint swelling, muscle pain, muscle stiffness, neck pain, others Integumetry: denies: bruises, change in color, change in hair/nails, dryness, laceration, lesions, lumps, rash, wounds, others Allergic/Immunocompromised: denies: Difficulty Healing, Frequent Infections, Hives, Itching, others Hematologic/Lymphatic: denies: anemia, blood clots, easy bleeding, easy bruising, swollen glands, others Endocrine: denies: excessive hunger, excessive sweating, excessive thirst, excessive urination, flushing, intolerance to cold, intolerance to heat, unexplained weight gain, unexplained weight loss, others Psychiatric: denies: anxiety, bipolar disorder, depression, hopeless, panic disorder, schizophrenia, sleepless, suicidal, others Physical Exam General Appearance: No Apparent Distress, Normal HEENT: Normal ENT Inspection, Pharynx Normal, TMs Normal Neck: Full Range of Motion, Non-Tender, Normal, Normal Inspection Respiratory: Chest Non-Tender, Lungs Clear, No Accessory Muscle Use, No Respiratory Distress, Normal Breath Sounds Cardiovascular: No Edema, No JVD, No Murmur, No Gallop, Normal Peripheral Pulses, Regular Rate/Rhythm Breast Exam: Deferred Gastrointestinal: No Organomegaly, Non Tender, No Pulsatile Mass, Normal Bowel Sounds, Soft Genitalia: Deferred Pelvic: Deferred Rectal: Deferred Extremities: No calf tenderness, Normal capillary refill, Normal inspection, Normal range of motion, Non-tender, No pedal edema Musculoskeletal : Apperance: Normal Neurologic: Alert, medical care evaluation specialist II-XII nml as Tested, No Motor Deficits, Normal Affect, Normal Mood, No Sensory Deficits Cerebellar Function: Normal Reflexes: Normal Skin: Dry, Normal Color, Warm Lymphatic: No Adenopathy Was a procedure done? Was a procedure done?: No CP Differential Dx Differential Diagnosis: Angina, Anxiety / Panic Attack Differential Diagnosis: CHF Differential Diagnosis: Angina, Chest Wall Pain, Costochondritis, Esophageal reflux/spasm, Gastritis, Myocardial Infarction X-Ray, Labs, Meds, VS Vital Signs Date Time Temp Pulse Resp B/P (MAP) Pulse Ox O2 Delivery O2 Flow Rate FiO2 12/07/24 00:30 97.7 82 14 143/60 (87) 95 97.7 12/07/24 00:30 Nasal Cannula* 2 28 12/06/24 23:52 95 12/06/24 23:49 98.3 89 20 149/72 97 98.3 Lab Test 12/07/24 02:25 12/07/24 00:40 Range/Units Troponin I High Sensitivity 51 49 </=54 ng/L White Blood Count 6.5 4.4-10.8 10^3/uL Red Blood Count 3.65 L 4.5-5.90 10^6/uL Hemoglobin 10.1 L 13.5-17.5 g/dL Hematocrit 32.2 L 41.0-53.0 % Mean Corpuscular Volume 88.4 80.0-100.0 fL Mean Corpuscular Hemoglobin 27.8 L 28.0-32.0 pg Mean Corpuscular Hemoglobin Concent 31.4 L 32.0-36.0 g/dL Red Cell Distribution Width 17.8 H 11.8-14.3 % Platelet Count 283 140-450 10^3/uL Mean Platelet Volume 8.3 6.9-10.8 fL Neutrophils (%) (Auto) 65.0 37.0-80.0 % Lymphocytes (%) (Auto) 22.1 10.0-50.0 % Monocytes (%) (Auto) 10.5 0.0-12.0 % Eosinophils (%) (Auto) 1.9 0.0-7.0 % Basophils (%) (Auto) 0.5 0.0-2.0 % Neutrophils # (Auto) 4.2 1.6-8.6 10 ^3/uL Lymphocytes # (Auto) 1.4 0.4-5.4 10 ^3/uL Monocytes # (Auto) 0.7 0-1.3 10 ^3/uL Eosinophils # (Auto) 0.1 0-0.8 10 ^3/uL Basophils # (Auto) 0 0-0.2 10 ^3/uL Nucleated Red Blood Cells 0.0 % Sodium Level 141 136-145 mmol/L Potassium Level 4.7 3.5-5.1 mmol/L Chloride Level 111 H 98-107 mmol/L Carbon Dioxide Level 20 20-31 mmol/L Anion Gap 10 5-15 Blood Urea Nitrogen 12 9-23 mg/dL Creatinine 1.05 0.700-1.30 mg/dL Glomerular Filtration Rate Calc 76 >90 mL/min BUN/Creatinine Ratio 11.4 10.0-20.0 Serum Glucose 105 74-106 mg/dL Calcium Level 9.4 8.7-10.4 mg/dL Magnesium Level 2.2 1.6-2.6 mg/dL Total Bilirubin 0.3 0.2-1.0 mg/dL Aspartate Amino Transferase (AST) 45 H 13-40 U/L Alanine Aminotransferase (ALT) 21 7-40 U/L Alkaline Phosphatase 56 46-116 U/L B-Type Natriuretic Peptide 75.49 0-100 pg/mL Total Protein 7.5 5.7-8.2 g/dL Albumin 3.3 3.2-4.8 g/dL Time of 1ST Reevaluation: 00:10 Reevaluation 1ST: Unchanged Patient Education/Counseling: Diagnosis, Treatment Family Education/Counseling: No Family Present SEPSIS Sepsis Screen Physician Orders Chest Portable (12/06/24 23:56) Senior Electrical Estimator (12/06/24 23:56) Electrocardigram (12/06/24 23:56) Lactic Acid W/ Reflex Order (12/07/24 03:26) Blood Culture (12/07/24 03:26) Ceftriaxone 1gm/50ml (Rocephin) (12/07/24 03:30) Azithromycin 500mg/ 250ml (Zithromax 50 (12/07/24 03:30) Aspirin Tablet (12/07/24 03:30) Vital Signs Date Time Temp Pulse Resp B/P (MAP) Pulse Ox O2 Delivery O2 Flow Rate FiO2 12/07/24 00:30 97.7 82 14 143/60 (87) 95 97.7 12/07/24 00:30 Nasal Cannula* 2 28 12/06/24 23:52 95 12/06/24 23:49 98.3 89 20 149/72 97 98.3 Laboratory Tests Test 12/07/24 00:40 White Blood Count 6.5 10^3/uL (4.4-10.8) Departure 1 Departure Time of Disposition: 03:31 Impression: Primary Impression: ACS (acute coronary syndrome) Additional Impressions: Diastolic congestive heart failure Pneumonitis Disposition: 09 ADMITTED INPATIENT Admit to: Tele Condition: Guarded Comments 69-year-old male with history of CHF now with chest pain and shortness of breath. Lab and chest x-ray results reviewed. I suspect pneumonitis. Possible coronary syndrome. Patient was given aspirin and antibiotics. Patient will need admission for supportive care and further workup. Critical Care Note Critical Care Time?: Yes (35 min-critical care time only) Critical care comment: Chest pain Stability Stability form required: No Heart Score Heart Score: Heart Score Response (Comments) Value History Moderate Suspicious 1 EKG Repolarization Disturb 1 Age >65 2 Risk Factors >3 or Hx ASHD 2 Troponin Normal limit 0 Total 6 I personally scribed for NABOR KING MD ([email or web address]) on 12/07/24 at 00:12. Electronically submitted by Mateo Fernando ([email or web address]). NABOR KING MD Dec 07, 2024 00:12
[2024-12-07 00:50] LABS: Hematocrit 32.2 % (41.0-53.0); Hemoglobin 10.1 g/dL (13.5-17.5); Mean Corpuscular Hemoglobin 27.8 pg (28.0-32.0); Mean Corpuscular Volume 88.4 fL (80.0-100.0); Nucleated Red Blood Cells % 0.0 %
--- NOTE | 2024-12-07 01:06 | DVH ---
CHEST RADIOGRAPH Indication: chest pain Technique: Single frontal view of the chest was obtained COMPARISON: XY CHEST PORTABLE on DOS: 12/01/24, XY CHEST PORTABLE on DOS: 11/29/24, XR CHEST 1 VIEW o n DOS: 11/28/24, XR CHEST 1 VIEW on DOS: 11/25/24, XR CHEST 1 VIEW on DOS: 11/19/24 FINDINGS: Cardiac silhouette is mildly enlarged. Slight prominence of the pulmonary vasculature. Trace bilatera l pleural effusions with mild bibasilar atelectasis / consolidation. Bones and soft tissues demonstrate no significant abnormality. IMPRESSION: Mild cardiomegaly and pulmonary vascular congestion with trace bilateral pleural effusions and bibasi lar atelectasis/consolidation.
[2024-12-07 01:56] LABS: Alanine Aminotransferase 21 U/L (7-40); Albumin 3.3 g/dL (3.2-4.8); Alkaline Phosphatase 56 U/L (46-116); Anion Gap 10 (5-15); BUN/Creatinine Ratio 11.4 (10.0-20.0); Bilirubin, Total 0.3 mg/dL (0.2-1.0); Blood Urea Nitrogen 12 mg/dL (9-23); Calcium 9.4 mg/dL (8.7-10.4); Glucose 105 mg/dL (74-106); Magnesium 2.2 mg/dL (1.6-2.6); Potassium 4.7 mmol/L (3.5-5.1); Sodium 141 mmol/L (136-145); Total Protein 7.5 g/dL (5.7-8.2)
[2024-12-07 02:08] LABS: Carbon Dioxide 20 mmol/L (20-31); Chloride 111 mmol/L (98-107)
[2024-12-07] MEDS ORDERED: ACETAMINOPHEN 325 MG TAB PO PRN (04:00)
[2024-12-07] MEDS ORDERED: NITROGLYCERIN 0.4 MG SL TAB SL PRN (04:00)
[2024-12-07] MEDS ORDERED: MORPHINE SULFATE INJ 2 MG/ml SYRG IV PRN (04:00)
[2024-12-07] MEDS ORDERED: DOCUSATE SOD 100 MG CAP PO PRN (04:00)
[2024-12-07] MEDS ORDERED: ONDANSETRON HCL 4 MG/2 ML VIAL IV PRN (04:00)
--- NOTE | 2024-12-07 04:18 | DVHHP2 ---
History of Present Illness Reason for Visit: Acute coronary syndrome History of Present Illness The patient is a 69-year-old male morbidly obese with multiple past medical history including angina, Coronary artery disease, COPD, CVA, depression, diabetes mellitus, and hypertension who presented to [facility] ED with complaint of chest pain. Patient reports he has been experiencing chest pain rating 7/10 numeric scale, associated with shortness of breaths, getting worse that prompted this visit. Patient was discharged from here with multiple diagnosis including stable angina, coronary artery disease status post multiple PTCAs with stent placement, NSTEMI, and hypertension. Patient was seen and evaluated in the ED, laboratory data shows WBC 6.5, hemoglobin 10.1, hematocrit 32.2, platelets 283, sodium 141, potassium 4.7, BUN 12, creatinine 1.05, GFR 76, glucose 105, calcium 9.4, troponin 49, BNP 75.49, blood pressure 143/60, heart rate 82, temperature 97.7 F, O2 saturation 95% on oxygen. Chest x-ray revealing mild cardiomegaly and pulmonary vascular congestion with trace bilateral pleural effusions and bibasilar atelectasis/consolidation. Please see medication orders section in the computer. On my assessment, patient denied chest pain, no headache, dizziness, diaphoresis, currently on oxygen, no diarrhea, nausea, vomiting, fever, chills. Patient was admitted for further evaluation and medical management. Past Medical History Angina, Anxiety, Seizure, Asthma, CAD, CHF, CKF, COPD, CVA, Depression, DM, GERD, High Lipids, HTN, Liver, NM, TIA, UTI'S Past Surgical History Appendectomy, Cholecystectomy, PTCA, Thyroidectomy Family History Reviewed, noncontributory to the management of this case. Past Social History The patient lives at home, denies smoking, alcohol or illicit drugs abuse. Review of Systems Constitutional: Yes: Weakness; No: Fever, Chills, Sweats, Malaise, Other Eyes: No: Pain, Vision change, Conjunctivae inflammation, Eyelid inflammation, Other, Redness ENT: No: Ear pain, Ear discharge, Nose pain, Nose discharge, Nose congestion, Mouth pain, Mouth swelling, Throat pain, Throat swelling, Other Respiratory: Shortness of breath, Other (SOB at rest); No: Cough, Dry, SOB with excertion, Wheezing, Hemoptysis, Pleuritic Pain, Sputum, Wheezing Cardiovascular: Chest Pain; No: Palpitations, Orthopnea, Paroxysmal Noc. Dyspnea, Edema, Lt Headedness, Other Gastrointestinal: No: Nausea, Vomiting, Abdominal Pain, Diarrhea, Constipation, Melena, Hematochezia, Other Genitourinary: No Dysuria, No Frequency, No Incontinence, No Hematuria, No Retention, No Other Musculoskeletal: No: other, neck pain, shoulder pain, arm pain, back pain, hand pain, leg pain, foot pain Skin: No: Rash, Lesions, Jaundice, Bruising, Other Neurological: No: Weakness, Numbness, Incoordination, Change in speech, Confusion, Seizures, Other Allergies: Coded Allergies: NO KNOWN ALLERGIES (Unverified , 10/04/22) Exam Vital Signs Vital Signs Date Time Temp Pulse Resp B/P (MAP) Pulse Ox O2 Delivery O2 Flow Rate FiO2 12/07/24 02:00 97.7 89 15 145/65 (91) 94 97.7 12/07/24 00:30 Nasal Cannula* 2 28 General Appearance: Alert, Oriented X3, Cooperative, No acute distress HEENT: Atraumatic, PERRLA, EOMI, Mucous membr. moist/pink Respiratory: Normal air movement, Other (Shortness of breaths) Cardiovascular: Regular rate, Normal S1, Normal S2, No murmurs Abdominal: Normal bowel sounds, Soft, No tenderness, No hepatospenomegaly, No masses Extremities: No clubbing, No cyanosis, Normal pulses, No tenderness/swelling Skin: No rashes, No significant lesion Neuro: Normal speech, Normal tone, Sensation intact, Cranial nerves 3-12 NL, Reflexes 2+, Other (Generalized weakness) Psych/Mental Status: Mental status NL, Mood NL Labs/Xrays Labs Test 12/07/24 03:57 12/07/24 02:25 12/07/24 00:40 Range/Units Troponin I High Sensitivity 51 </=54 ng/L White Blood Count 6.5 4.4-10.8 10^3/uL Red Blood Count 3.65 L 4.5-5.90 10^6/uL Hemoglobin 10.1 L 13.5-17.5 g/dL Hematocrit 32.2 L 41.0-53.0 % Mean Corpuscular Volume 88.4 80.0-100.0 fL Mean Corpuscular Hemoglobin 27.8 L 28.0-32.0 pg Mean Corpuscular Hemoglobin Concent 31.4 L 32.0-36.0 g/dL Red Cell Distribution Width 17.8 H 11.8-14.3 % Platelet Count 283 140-450 10^3/uL Mean Platelet Volume 8.3 6.9-10.8 fL Neutrophils (%) (Auto) 65.0 37.0-80.0 % Lymphocytes (%) (Auto) 22.1 10.0-50.0 % Monocytes (%) (Auto) 10.5 0.0-12.0 % Eosinophils (%) (Auto) 1.9 0.0-7.0 % Basophils (%) (Auto) 0.5 0.0-2.0 % Neutrophils # (Auto) 4.2 1.6-8.6 10 ^3/uL Lymphocytes # (Auto) 1.4 0.4-5.4 10 ^3/uL Monocytes # (Auto) 0.7 0-1.3 10 ^3/uL Eosinophils # (Auto) 0.1 0-0.8 10 ^3/uL Basophils # (Auto) 0 0-0.2 10 ^3/uL Nucleated Red Blood Cells 0.0 % Sodium Level 141 136-145 mmol/L Potassium Level 4.7 3.5-5.1 mmol/L Chloride Level 111 H 98-107 mmol/L Carbon Dioxide Level 20 20-31 mmol/L Anion Gap 10 5-15 Blood Urea Nitrogen 12 9-23 mg/dL Creatinine 1.05 0.700-1.30 mg/dL Glomerular Filtration Rate Calc 76 >90 mL/min BUN/Creatinine Ratio 11.4 10.0-20.0 Serum Glucose 105 74-106 mg/dL Calcium Level 9.4 8.7-10.4 mg/dL Magnesium Level 2.2 1.6-2.6 mg/dL Total Bilirubin 0.3 0.2-1.0 mg/dL Aspartate Amino Transferase (AST) 45 H 13-40 U/L Alanine Aminotransferase (ALT) 21 7-40 U/L Alkaline Phosphatase 56 46-116 U/L B-Type Natriuretic Peptide 75.49 0-100 pg/mL Total Protein 7.5 5.7-8.2 g/dL Albumin 3.3 3.2-4.8 g/dL PATIENT: NAVID SANCHEZ ACCT: [id number] UNIT: [id number] : 1955 LOC: ER ROOM / BED: / AGE / SEX: 69 / M ADM STATUS: REG ER SERVICE [id number] ORDERING PHYSICIAN: NABOR KING MD PROCEDURE(s): CXRP - CHEST PORTABLE REASON: chest pain ORDER NUMBER(s): [id number], ACCESSION NUMBER(s): [id number] CHEST RADIOGRAPH Indication: chest pain Technique: Single frontal view of the chest was obtained COMPARISON: XY CHEST PORTABLE on DOS: 12/01/24, XY CHEST PORTABLE on DOS: , XR CHEST 1 VIEW on DOS: 11/28/24, XR CHEST 1 VIEW on DOS: 11/25/24, XR CHEST 1 VIEW on DOS: 11/19/24 FINDINGS: Cardiac silhouette is mildly enlarged. Slight prominence of the pulmonary vasculature. Trace bilateral pleural effusions with mild bibasilar atelectasis/consolidation. Bones and soft tissues demonstrate no significant abnormality. IMPRESSION: Mild cardiomegaly and pulmonary vascular congestion with trace bilateral pleural effusions and bibasilar atelectasis/consolidation. SEPSIS Sepsis Screen Date sepsis recognized/suspect: Dec 07, 2024 Time Sepsis recognized/suspect: 0030 Recent Procedure: No On Antibiotic Therapy: No Respiratory Rate >20: No Heart Rate >90: No Temp<36 C (96.8 F) or >38.3 C: No SBP <90 or MAP <65 mmHG: No New Acute Mental Status Change: No Is the patient on CPAP, BIPAP,: No Physician Orders Chest Portable (12/06/24 23:56) Pump Mechanic (12/06/24 23:56) Electrocardigram (12/06/24 23:56) Lactic Acid W/ Reflex Order (12/07/24 03:26) Blood Culture (12/07/24 03:26) Azithromycin 500mg/ 250ml (Zithromax 50 (12/07/24 03:30) Complete Blood Count (12/07/24 04:00) Vital Signs Date Time Temp Pulse Resp B/P (MAP) Pulse Ox O2 Delivery O2 Flow Rate FiO2 12/07/24 02:00 97.7 89 15 145/65 (91) 94 97.7 12/07/24 00:30 97.7 82 14 143/60 (87) 95 97.7 12/07/24 00:30 Nasal Cannula* 2 28 12/06/24 23:52 95 12/06/24 23:49 98.3 89 20 149/72 97 98.3 Laboratory Tests Test 12/07/24 00:40 12/07/24 03:57 White Blood Count 6.5 10^3/uL (4.4-10.8) Lactic Acid Level Pending Assessment/Plan Assessment/Plan Acute coronary syndrome Pneumonitis Morbid obesity COPD with acute exacerbation Generalized weakness Plan 1. Admit to telemetry unit 2. Breathing treatment 3. Pain control management 4. IV antibiotic management 5. Management of fluids and electrolytes 6. Consultation for hospitalist 7. Diagnostic test chest x-ray 8. DVT prophylaxis-on aspirin 9. Repeat labs CBC, CMP in a.m. 10. Home medication reviewed and reconciled 11. Continue with current medical management 12. Treatment plan discussed with patient and RN. Patient verbalized understanding. Plan discussed with: Patient, Other (RN) My Orders Orders - LELO NIXON DNP Procedure Category Date Status Time Complete Blood Count LAB 12/07/24 Verified 04:00 Problem List: (1) Acute coronary syndrome (2) Pneumonitis (3) Morbid obesity (4) COPD with acute exacerbation (5) Generalized weakness Date of Service: Dec 07, 2024 Billing Provider: LELO NIXON DNP Common Visit Codes: [id number] INP/OBS CARE (HIGH) LELO NIXON DNP Dec 07, 2024 04:18
[2024-12-07] MEDS: ONDANSETRON HCL 4 MG/2 ML VIAL IV ONE (05:32)
[2024-12-07] MEDS: HYDROmorphone HCL 2 MG/ML VL/or syr IV ONE (05:32)
[2024-12-07 05:46] LABS: Hematocrit 31.7 % (41.0-53.0); Hemoglobin 10.1 g/dL (13.5-17.5); Mean Corpuscular Hemoglobin 27.8 pg (28.0-32.0); Mean Corpuscular Volume 87.1 fL (80.0-100.0); Nucleated Red Blood Cells % 0.2 %
[2024-12-07 05:58] LABS: Alanine Aminotransferase 18 U/L (7-40); Albumin 3.3 g/dL (3.2-4.8); Alkaline Phosphatase 57 U/L (46-116); Anion Gap 10 (5-15); BUN/Creatinine Ratio 12.7 (10.0-20.0); Blood Urea Nitrogen 13 mg/dL (9-23); Calcium 9.6 mg/dL (8.7-10.4); Carbon Dioxide 21 mmol/L (20-31); Glucose 96 mg/dL (74-106); Potassium 4.0 mmol/L (3.5-5.1); Sodium 142 mmol/L (136-145); Total Protein 7.5 g/dL (5.7-8.2)
[2024-12-07 05:59] LABS: Bilirubin, Total 0.4 mg/dL (0.2-1.0)
[2024-12-07] MEDS: GABAPENTIN 300 MG CAP PO SCH (06:00)
[2024-12-07] MEDS: methylPREDNISolone SOD SUCC 40 MG/ML VL IV SCH (06:00)
[2024-12-07] MEDS: SODIUM CHLOR 0.9% PF (SALINE LOCK) 10ML VIAL/SYR IV SCH (06:00)
[2024-12-07 06:10] VITALS: O2SAT 98
[2024-12-07 06:12] LABS: Chloride 111 mmol/L (98-107)
[2024-12-07] MEDS: methylPREDNISolone SOD SUCC 125 MG/2 ML VL IV ONE (06:25)
[2024-12-07] MEDS: AZITHROMYCIN 500MG/ 250ML 250 ML IV ONE (06:36)
[2024-12-07 08:00] VITALS: PULSE 68; RESP 20; O2SAT 97
[2024-12-07 08:23] VITALS: BP 160/73; RESP 15; O2SAT 73
[2024-12-07] MEDS: CLOPIDOGREL BISULFATE 75 MG TAB PO SCH (12:31)
[2024-12-07] MEDS: levETIRAcetam 1000 mg/100ml 100 ML IV SCH (12:31)
[2024-12-07] MEDS: FAMOTIDINE (10MG/ML) 2ML VL IV SCH (12:32)
[2024-12-07] MEDS: HYDROmorphone HCL 2 MG/ML VL/or syr IV PRN (12:39)
[2024-12-07] MEDS: levETIRAcetam 500 MG TAB PO SCH (13:20)
--- NOTE | 2024-12-07 14:24 | DVHPN2 ---
Changes from previous H/P or p: No Changes Eyes: No Pain, No Vision change, No Conjunctivae inflammation, No Eyelid inflammation, No Other, No Redness ENT: No Ear pain, No Ear discharge, No Nose pain, No Nose discharge, No Nose congestion, No Mouth pain, No Mouth swelling, No Throat pain, No Throat swelling, No Other Cardiovascular: Chest Pain; No Palpitations, No Orthopnea, No Paroxysmal Noc. Dyspnea, No Edema, No Lt Headedness, No Other Respiratory: No Cough, No Dry; Shortness of breath; No SOB with excertion, No Wheezing, No Hemoptysis, No Pleuritic Pain, No Sputum; Other (SOB at rest) Gastrointestinal: No Nausea, No Vomiting, No Abdominal Pain, No Diarrhea, No Constipation, No Melena, No Hematochezia, No Other Genitourinary: No Dysuria, No Frequency, No Incontinence, No Hematuria, No Retention, No Other Musculoskeletal: No other, No neck pain, No shoulder pain, No arm pain, No back pain, No hand pain, No leg pain, No foot pain Skin: No Rash, No Lesions, No Jaundice, No Bruising, No Other Objective Vitals Vital Signs Date Time Temp Pulse Resp B/P (MAP) Pulse Ox O2 Delivery O2 Flow Rate FiO2 12/07/24 12:39 63 17 140/60 12/07/24 12:00 95 12/07/24 10:00 98.6 98.6 12/07/24 08:00 Nasal Cannula* 2 28 Medications Current Medications Medications Dose Ordered Sig/Yvette Route Start Time Stop Time Status Last Admin Dose Admin Aspirin 81 mg DAILY PO 12/07/24 10:00 12/07/24 12:32 81 MG Clopidogrel Bisulfate 75 mg DAILY PO 12/07/24 10:00 12/07/24 12:31 75 MG Ceftriaxone Sodium 50 ml @ 100 mls/hr DAILY@09 IV 12/07/24 09:00 12/07/24 12:31 100 MLS/HR Azithromycin 250 ml @ 125 mls/hr DAILY IV 12/08/24 10:00 UNV Hydromorphone HCl 0.5 mg Q4HPRN PRN IV 12/07/24 04:00 12/07/24 12:39 0.5 MG Famotidine 20 mg Q12HR IV 12/07/24 10:00 12/07/24 12:32 20 MG Gabapentin 300 mg TID PO 12/07/24 06:00 12/07/24 06:00 300 MG Albuterol 2.5 mg Q4HPRN PRN NEB 12/07/24 04:00 Ipratropium Felda 0.5 mg Q4HPRN PRN NEB 12/07/24 04:00 Methylprednisolone Sodium Succinate 40 mg Q8HR IV 12/07/24 06:00 Sodium Chloride 10 ml Q8HR IV 12/07/24 06:00 12/07/24 13:00 10 ML Acetaminophen/ Hydrocodone Bitart 1 tab Q4HP PRN PO 12/07/24 04:00 Ondansetron HCl 4 mg Q4HP PRN IV 12/07/24 04:00 Docusate Sodium 100 mg BIDPRN PRN PO 12/07/24 04:00 Acetaminophen 650 mg Q6HP PRN PO 12/07/24 04:00 Nitroglycerin 0.4 mg Q5MINP PRN SL 12/07/24 04:00 Morphine Sulfate 2 mg Q30M PRN IV 12/07/24 04:00 Levetiracetam 1,000 mg BID PO 12/07/24 13:00 12/07/24 13:20 1,000 MG Laboratory Results Laboratory Tests 12/07/24 05:06 Chemistry Test 12/07/24 00:40 12/07/24 05:06 Albumin 3.3 g/dL (3.2-4.8) 3.3 g/dL (3.2-4.8) Calcium Level 9.4 mg/dL (8.7-10.4) 9.6 mg/dL (8.7-10.4) Magnesium Level 2.2 mg/dL (1.6-2.6) Total Protein 7.5 g/dL (5.7-8.2) 7.5 g/dL (5.7-8.2) Cardiac Markers Test 12/07/24 00:40 B-Type Natriuretic Peptide 75.49 pg/mL (0-100) LFT Test 12/07/24 00:40 12/07/24 05:06 Alanine Aminotransferase (ALT) 21 U/L (7-40) 18 U/L (7-40) Alkaline Phosphatase 56 U/L (46-116) 57 U/L (46-116) Aspartate Amino Transferase (AST) 45 U/L (13-40) H 26 U/L (13-40) Total Bilirubin 0.3 mg/dL (0.2-1.0) 0.4 mg/dL (0.2-1.0) Labs and/or images reviewed: Labs reviewed by me, Image(s) reviewed by me Assessment/Plan Assessment/Plan Acute coronary syndrome cardiology Dr. Vásquez Angina Anxiety Possible community-acquired pneumonia: Rocephin azithromycin Morbid obesity COPD with acute exacerbation History of seizures Congestive heart failure COPD History of CVA Depression Diabetes Hypertension Hyperlipidemia History of [place] status post stents Recurrent UTIs Generalized weakness Time spent 70 minutes Advanced care planning time 20 minutes Patient is full code Plan discussed with: Patient My Orders Orders - CYDNEY MCGARRY MD Procedure Category Date Status Time Levetiracetam Tablet PHA 12/07/24 In Process (Keppra Tablet) 13:00 Date of Service: Dec 07, 2024 Billing Provider: CYDNEY MCGARRY MD Common Visit Codes: [id number] CARE 30-74 MIN CYDNEY MCGARRY MD Dec 07, 2024 14:23
[2024-12-07 19:13] VITALS: O2SAT 96
--- NOTE | 2024-12-07 20:11 | DVHINCON2 ---
Date of service: Dec 07, 2024 Referring Physician Kareem Reason for Consultation Chest pain History of Present Illness This is a is a 69-year-old male with a past medical history of angina, CAD, COPD, CVA, depression, diabetes mellitus, and hypertension who presented to the ED with a complaint of chest pain. Patient reports he has been experiencing chest pain rating 7/10 numeric scale, associated with worsening shortness of breath. Patient was recently discharged from here on 12/02 with multiple diagnosis including stable angina, coronary artery disease status post multiple PTCAs with stent placement, NSTEMI, and hypertension. WBC 6.5, HGB 10.1, HCT 32.2, NA 141, K 4.7, BUN 12, DIELECTRIC PRESS OPERATOR 1.05, GFR 76, GLUC 105, CA 9.4, TROP 49, BNP 75.49. Chest x-ray shows mild cardiomegaly and pulmonary vascular congestion with trace bilateral pleural effusions and bibasilar atelectasis/consolidation. Patient was admitted to the hospital. I am asked to consult on this patient. Family History: Alcoholism G8 MOTHER, Onset:Unknown Cancer G8 SISTER (uterine cancer) Cardiovascular disease G8 SISTER Cerebrovascular accident (CVA) G8 BROTHER Chronic obstructive pulmonary disease G8 SISTER Depression G8 SISTER Diabetes mellitus G8 SISTER G8 SISTER Family history: Cardiovascular disease Family history: Depression (situation) Family history: Hypertension Family history: Hypertension Glaucoma MATERNAL GPA Sepsis Stroke Stroke Allergies: Coded Allergies: NO KNOWN ALLERGIES (Unverified , 10/04/22) Home Meds Active Scripts Baclofen (Baclofen) 10 Mg Tab, 10 MG PO BID for 7 Days, #14 TAB 0 Refills Prov:AMANDA RODRÍGUEZ MD 12/02/24 Hydrocodone-Acetaminophen (Hydrocodone Bitartrate/AC 5-325 mg) 1 Tab Tab, 1 TAB PO TIDP PRN for 7 Days, #21 TAB 0 Refills Prov:AMANDA RODRÍGUEZ MD 12/02/24 Furosemide (Lasix) 40 Mg Tab, 40 MG PO BID for 30 Days, #60 TAB Prov:BK LAGUERRE MD 05/29/24 Ranolazine (Ranexa) 500 Mg Tab, 500 MG PO BID for 30 Days, #60 TAB Prov:JUSTIN DUARTE MD 10/22/18 Reported Medications Budesonide-Formoterol Fumarate (Budesonide/Formoterol Fum 160-4.5 Mcg/Act) 1 Aer Aer, 2 PUFF IN BID for 30 Days, #10.2 02/26/24 Midodrine HCl (Midodrine Hydrochloride) 5 Mg Tab, 1 TAB PO TID for 30 Days, #90 02/26/24 Potassium Chloride (Potassium Chloride ER) 10 Meq Tab, 1 TAB PO BID for 30 Days, #60 02/26/24 Aspirin (Aspirin Regular Strength) 325 Mg Tab, 1 TAB PO DAILY for 30 Days, #30 02/26/24 Lactulose (Lactulose) 10 Gm/15 Ml Rachna, 15 ML PO BID PRN for 15 Days, #473 02/26/24 Atorvastatin Calcium (Lipitor) 80 Mg Tab, 1 TAB PO DAILY for 30 Days, #30 02/26/24 Levetiracetam (Levetiracetam) 750 Mg Tab, 1 TAB PO BID for 30 Days, #60 02/26/24 Lidocaine (Lidocaine Topical Pain Pa) 4 % Pad, 1 PATCH TOP DAILY 06/28/23 Gabapentin (Gabapentin) 800 Mg Tab, 1 TAB PO BID for 30 Days, #60 06/28/23 Ipratropium-Albuterol (COMBIVENT RESPIMAT) Respimat Aer, 1 PUFF INH QID 05/14/23 Dapagliflozin Propanediol (Farxiga) 10 Mg Tab, 1 TAB PO DAILY for 30 Days, #30 05/14/23 Beclomethasone Dipropionate (Qvar Redihaler) 80 Mcg/Act Aer, 1 PUFF INH BID for 30 Days, #10.6 02/27/23 Silver Sulfadiazine (Silver Sulfadiazine) 1 % Cre, 1 APPLIC TOP DAILY for 30 Days, #50 02/27/23 Oxybutynin Chloride (Ditropan Xl) 5 Mg Tab, 15 MG PO DAILY for 30 Days, #30 02/27/23 Trazodone Hcl (Trazodone Hcl) 100 Mg Tab, 4 TAB PO HS for 30 Days, #120 02/27/23 Clopidogrel Bisulfate (CLOPIDOGREL) 75 Mg Tab, 1 TAB PO DAILY for 30 Days, #30 02/07/23 Pantoprazole Sodium Sesquihydr (Pantoprazole Sodium) 40 Mg Tab, 1 TAB PO QAM 12/20/23 Bupropion Hcl (Bupropion Hcl) 75 Mg Tab, 2 TAB PO DAILY for 30 Days, #60 11/10/17 Discontinued Reported Medications Oxycodone W/ Acetaminophen (Percocet 5/325MG) 1 Tab Tb, 2 TAB PO BIDPRN for CHRONIC PAIN, TAB 08/29/24 Methocarbamol (Methocarbamol) 500 Mg Tab, 1.5 TAB PO Q8HR PRN for 8 Days, #40 05/14/23 Discontinued Scripts Levofloxacin Hemihydrate (LEVAQUIN 500 MG) 500 Mg Tab, 1 TAB PO DAILY, #7 TAB Prov:ARON PERLA MD 09/16/24 Oxycodone W/ Acetaminophen (Percocet 5/325MG) 1 Tab Tb, 1 TAB PO QID, #40 TAB Prov:CYDNEY MCGARRY MD 09/01/24 Prednisone (Prednisone) 20 Mg Tab, 40 MG PO DAILY for 5 Days, #5 MG Prov:BK LAGUERRE MD 05/29/24 Current Medications Current Medications Medications (Trade) Dose Ordered Sig/Yvette Route PRN Reason Start Time Stop Time Status Last Admin Aspirin 81 mg DAILY PO 12/07/24 10:00 12/07/24 12:32 Clopidogrel Bisulfate (Plavix) 75 mg DAILY PO 12/07/24 10:00 12/07/24 12:31 Ceftriaxone Sodium 50 ml @ 100 mls/hr DAILY@09 IV 12/07/24 09:00 12/07/24 12:31 Azithromycin 250 ml @ 125 mls/hr DAILY IV 12/08/24 10:00 UNV Hydromorphone HCl (Dilaudid Injection) 0.5 mg Q4HPRN PRN IV SEVERE PAIN (7-10 PAIN SCALE) 12/07/24 04:00 12/07/24 12:39 Famotidine (Pepcid Injection) 20 mg Q12HR IV 12/07/24 10:00 12/07/24 12:32 Levetiracetam 100 ml @ 400 mls/hr BID IV 12/07/24 10:00 12/07/24 12:56 DC Gabapentin (Neurontin Capsule) 300 mg TID PO 12/07/24 06:00 12/07/24 15:19 Albuterol (Ventolin Medneb) 2.5 mg Q4HPRN PRN NEB SHORTNESS OF BREATH 12/07/24 04:00 Ipratropium Merino (Atrovent Medneb) 0.5 mg Q4HPRN PRN NEB SHORTNESS OF BREATH 12/07/24 04:00 Methylprednisolone Sodium Succinate (Solu Medrol) 40 mg Q8HR IV 12/07/24 06:00 12/07/24 15:19 Sodium Chloride (Saline Lock Ns) 10 ml Q8HR IV 12/07/24 06:00 12/07/24 13:00 Acetaminophen/ Hydrocodone Bitart ([place] 5/325MG Tab) 1 tab Q4HP PRN PO MODERATE PAIN (4-6 PAIN SCALE) 12/07/24 04:00 Ondansetron HCl (Zofran) 4 mg Q4HP PRN IV NAUSEA / VOMITING 12/07/24 04:00 Docusate Sodium (Colace Capsule) 100 mg BIDPRN PRN PO FOR CONSTIPATION 12/07/24 04:00 Acetaminophen (Tylenol Tablet) 650 mg Q6HP PRN PO PAIN SCALE 1-3 OR TEMP>100.4 12/07/24 04:00 Nitroglycerin (Ntrostat Sublingual) 0.4 mg Q5MINP PRN SL FOR CHEST PAIN 12/07/24 04:00 Morphine Sulfate 2 mg Q30M PRN IV FOR CHEST PAIN 12/07/24 04:00 Levetiracetam (Keppra Tablet) 1,000 mg BID PO 12/07/24 13:00 12/07/24 13:20 Review of Systems Constitutional: denies: chills, diaphoresis, fatigue, fever, malaise, sweats, weakness, others EENTM: denies: blurred vision, double vision, ear bleeding, ear discharge, ear drainage, ear pain, ear ringing, eye pain, eye redness, hearing loss, mouth pain, mouth swelling, nasal discharge, nose bleeding, nose congestion, nose pain, photophobia, tearing, throat pain, throat swelling, voice changes, others Respiratory: reports: shortness of breath; denies: cough, hemoptysis, orthopnea, SOB at rest, SOB with excertion, stridor, wheezing, others Cardiovascular: reports: chest pain; denies: dizzy spells, diaphoresis, Dyspnea on exertion, edema, irregular heart beat, left arm pain, lightheadedness, palpitations, PND, syncope, others Gastrointestinal: denies: abdomen distended, abdominal pain, blood streaked bowels, constipated, diarrhea, dysphagia, difficulty swallowing, hematemesis, melena, nausea, poor appetite, poor fluid intake, rectal bleeding, rectal pain, vomiting, others Genitourinary: denies: burning, dysuria, flank pain, frequency, hematuria, incontinence, penile discharge, penile sore, pain, testicle pain, testicle swelling, urgency, others Neurological: denies: dizziness, fainting, headache, left sided numbness, left sided weakness, numbness, paresthesia, pre-existing deficit, right sided numbness, right sided weakness, seizure, speech problems, tingling, tremors, weakness, others Musculoskeletal: denies: back pain, gout, joint pain, joint swelling, muscle pain, muscle stiffness, neck pain, others Integumetry: denies: bruises, change in color, change in hair/nails, dryness, laceration, lesions, lumps, rash, wounds, others Allergic/Immunocompromised: denies: Difficulty Healing, Frequent Infections, Hives, Itching, others Hematologic/Lymphatic: denies: anemia, blood clots, easy bleeding, easy bruising, swollen glands, others Endocrine: denies: excessive hunger, excessive sweating, excessive thirst, excessive urination, flushing, intolerance to cold, intolerance to heat, unexplained weight gain, unexplained weight loss, others Psychiatric: denies: anxiety, bipolar disorder, depression, hopeless, panic disorder, schizophrenia, sleepless, suicidal, others Vital Signs Vital Signs Date Time Temp Pulse Resp B/P (MAP) Pulse Ox O2 Delivery O2 Flow Rate FiO2 12/07/24 14:00 60 15 119/65 (83) 96 12/07/24 10:00 98.6 98.6 12/07/24 08:00 Nasal Cannula* 2 28 Physical Exam GENERAL: Alert and oriented x 3. No acute distress. EYES: PERRL, EOMI. Anicteric. HENT: Moist mucous membranes. LUNGS: Clear to auscultation bilaterally. CARDIOVASCULAR: Regular rate and rhythm. ABDOMEN: Soft, nontender and nondistended. EXTREMITIES: No edema. NEUROLOGIC: No focal neurological deficits. SKIN: Warm, dry. Labs/Diagnostic Data Labs Test 12/07/24 05:06 12/07/24 03:57 12/07/24 02:25 12/07/24 00:40 Range/Units White Blood Count 6.2 4.4-10.8 10^3/uL Red Blood Count 3.64 L 4.5-5.90 10^6/uL Hemoglobin 10.1 L 13.5-17.5 g/dL Hematocrit 31.7 L 41.0-53.0 % Mean Corpuscular Volume 87.1 80.0-100.0 fL Mean Corpuscular Hemoglobin 27.8 L 28.0-32.0 pg Mean Corpuscular Hemoglobin Concent 31.9 L 32.0-36.0 g/dL Red Cell Distribution Width 17.7 H 11.8-14.3 % Platelet Count 327 140-450 10^3/uL Mean Platelet Volume 8.5 6.9-10.8 fL Neutrophils (%) (Auto) 69.7 37.0-80.0 % Lymphocytes (%) (Auto) 20.0 10.0-50.0 % Monocytes (%) (Auto) 8.4 0.0-12.0 % Eosinophils (%) (Auto) 1.4 0.0-7.0 % Basophils (%) (Auto) 0.5 0.0-2.0 % Neutrophils # (Auto) 4.3 1.6-8.6 10 ^3/uL Lymphocytes # (Auto) 1.2 0.4-5.4 10 ^3/uL Monocytes # (Auto) 0.5 0-1.3 10 ^3/uL Eosinophils # (Auto) 0.1 0-0.8 10 ^3/uL Basophils # (Auto) 0 0-0.2 10 ^3/uL Nucleated Red Blood Cells 0.2 % Sodium Level 142 136-145 mmol/L Potassium Level 4.0 3.5-5.1 mmol/L Chloride Level 111 H 98-107 mmol/L Carbon Dioxide Level 21 20-31 mmol/L Anion Gap 10 5-15 Blood Urea Nitrogen 13 9-23 mg/dL Creatinine 1.02 0.700-1.30 mg/dL Glomerular Filtration Rate Calc 79 >90 mL/min BUN/Creatinine Ratio 12.7 10.0-20.0 Serum Glucose 96 74-106 mg/dL Calcium Level 9.6 8.7-10.4 mg/dL Total Bilirubin 0.4 0.2-1.0 mg/dL Aspartate Amino Transferase (AST) 26 13-40 U/L Alanine Aminotransferase (ALT) 18 7-40 U/L Alkaline Phosphatase 57 46-116 U/L Total Protein 7.5 5.7-8.2 g/dL Albumin 3.3 3.2-4.8 g/dL Lactic Acid Level 1.0 0.4-2.0 mmol/L Troponin I High Sensitivity 51 </=54 ng/L Magnesium Level 2.2 1.6-2.6 mg/dL B-Type Natriuretic Peptide 75.49 0-100 pg/mL Assessment Acute coronary syndrome. Angina. Anxiety. Possible community-acquired pneumonia. Morbid obesity. COPD with acute exacerbation. History of seizures. Congestive heart failure. COPD. History of CVA. Depression. Diabetes. Hypertension. Hyperlipidemia. History of [place] status post stents. Recurrent UTIs. Generalized weakness. Plan/Recommendation I agree with your ongoing assessment and care of plan. Morphine and [place] for pain management. Aspirin, Plavix. IV antibiotics as ordered. Nitro SL. Additional plan as per the hospital course. A total of 45 minutes was spent reviewing the patient record, examining the patient, making a diagnostic and therapeutic plan, discussing this plan with medical personnel, following up on diagnostic studies and following the patient for clinical stability excluding any and all procedures. At least 50% of this time was spent in direct, [id number] contact. Plan discussed with: Patient ROHINI ABARCA MD Dec 07, 2024 15:49
[2024-12-07 20:17] VITALS: PULSE 64; RESP 14; O2SAT 95
[2024-12-08 07:21] LABS: Hematocrit 30.7 % (41.0-53.0); Hemoglobin 9.5 g/dL (13.5-17.5); Mean Corpuscular Hemoglobin 27.4 pg (28.0-32.0); Mean Corpuscular Volume 88.3 fL (80.0-100.0); Nucleated Red Blood Cells % 0.0 %
[2024-12-08 07:25] VITALS: PULSE 60; RESP 14; O2SAT 95
[2024-12-08 07:35] LABS: Alanine Aminotransferase 16 U/L (7-40); Albumin 3.4 g/dL (3.2-4.8); Alkaline Phosphatase 57 U/L (46-116); Anion Gap 9 (5-15); BUN/Creatinine Ratio 15.3 (10.0-20.0); Calcium 9.1 mg/dL (8.7-10.4); Carbon Dioxide 23 mmol/L (20-31); Potassium 4.7 mmol/L (3.5-5.1); Sodium 141 mmol/L (136-145); Total Protein 7.4 g/dL (5.7-8.2)
[2024-12-08 07:38] LABS: Blood Urea Nitrogen 23 mg/dL (9-23); Chloride 109 mmol/L (98-107); Glucose 157 mg/dL (74-106)
[2024-12-08 07:39] LABS: Bilirubin, Total 0.2 mg/dL (0.2-1.0)
[2024-12-08 08:25] VITALS: O2SAT 95
[2024-12-08] MEDS: AZITHROMYCIN 500MG/ 250ML 250 ML IV SCH (10:02)
--- NOTE | 2024-12-08 13:21 | ECG ---
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
--- NOTE | 2024-12-08 14:38 | DVHPN2 ---
Reviewed: Care Plan, H&P, Labs, Medications, Previous Orders, Radiology Changes from previous H/P or p: No Changes Eyes: No Pain, No Vision change, No Conjunctivae inflammation, No Eyelid inflammation, No Other, No Redness ENT: No Ear pain, No Ear discharge, No Nose pain, No Nose discharge, No Nose congestion, No Mouth pain, No Mouth swelling, No Throat pain, No Throat swelling, No Other Cardiovascular: Chest Pain; No Palpitations, No Orthopnea, No Paroxysmal Noc. Dyspnea, No Edema, No Lt Headedness, No Other Respiratory: No Cough, No Dry; Shortness of breath; No SOB with excertion, No Wheezing, No Hemoptysis, No Pleuritic Pain, No Sputum; Other (SOB at rest) Gastrointestinal: No Nausea, No Vomiting, No Abdominal Pain, No Diarrhea, No Constipation, No Melena, No Hematochezia, No Other Genitourinary: No Dysuria, No Frequency, No Incontinence, No Hematuria, No Retention, No Other Musculoskeletal: No other, No neck pain, No shoulder pain, No arm pain, No back pain, No hand pain, No leg pain, No foot pain Skin: No Rash, No Lesions, No Jaundice, No Bruising, No Other Objective Vitals Vital Signs Date Time Temp Pulse Resp B/P (MAP) Pulse Ox O2 Delivery O2 Flow Rate FiO2 12/08/24 12:00 68 12/08/24 12:00 15 104/78 (87) 96 12/08/24 08:25 Room Air 0.0 12/08/24 08:25 21 12/08/24 08:00 97.5 97.5 Intake/Output Intake and Output 12/08/24 07:00 Intake Total 100 ml Output Total 400 ml Balance -300 ml Intake Oral 50 ml IV Total 50 ml Output Urine Total 400 ml Medications Current Medications Medications Dose Ordered Sig/Yvette Route Start Time Stop Time Status Last Admin Dose Admin Aspirin 81 mg DAILY PO 12/07/24 10:00 12/08/24 10:02 81 MG Clopidogrel Bisulfate 75 mg DAILY PO 12/07/24 10:00 12/08/24 10:02 75 MG Ceftriaxone Sodium 50 ml @ 100 mls/hr DAILY@09 IV 12/07/24 09:00 12/08/24 09:27 100 MLS/HR Azithromycin 250 ml @ 125 mls/hr DAILY IV 12/08/24 10:00 12/08/24 10:02 125 MLS/HR Hydromorphone HCl 0.5 mg Q4HPRN PRN IV 12/07/24 04:00 12/08/24 10:57 0.5 MG Famotidine 20 mg Q12HR IV 12/07/24 10:00 12/08/24 10:02 20 MG Gabapentin 300 mg TID PO 12/07/24 06:00 12/08/24 14:05 300 MG Albuterol 2.5 mg Q4HPRN PRN NEB 12/07/24 04:00 Ipratropium [place] 0.5 mg Q4HPRN PRN NEB 12/07/24 04:00 Methylprednisolone Sodium Succinate 40 mg Q8HR IV 12/07/24 06:00 12/08/24 14:05 40 MG Sodium Chloride 10 ml Q8HR IV 12/07/24 06:00 12/08/24 14:05 10 ML Acetaminophen/ Hydrocodone Bitart 1 tab Q4HP PRN PO 12/07/24 04:00 Ondansetron HCl 4 mg Q4HP PRN IV 12/07/24 04:00 Docusate Sodium 100 mg BIDPRN PRN PO 12/07/24 04:00 Acetaminophen 650 mg Q6HP PRN PO 12/07/24 04:00 Nitroglycerin 0.4 mg Q5MINP PRN SL 12/07/24 04:00 Morphine Sulfate 2 mg Q30M PRN IV 12/07/24 04:00 Levetiracetam 1,000 mg BID PO 12/07/24 13:00 12/08/24 10:02 1,000 MG Laboratory Results Laboratory Tests 12/08/24 06:10 Chemistry Test 12/08/24 06:10 Albumin 3.4 g/dL (3.2-4.8) Calcium Level 9.1 mg/dL (8.7-10.4) Total Protein 7.4 g/dL (5.7-8.2) LFT Test 12/08/24 06:10 Alanine Aminotransferase (ALT) 16 U/L (7-40) Alkaline Phosphatase 57 U/L (46-116) Aspartate Amino Transferase (AST) 21 U/L (13-40) Total Bilirubin 0.2 mg/dL (0.2-1.0) Microbiology Microbiology Date/Time Source Procedure Growth Status 12/07/24 09:30 Blood Blood Culture - Preliminary NO GROWTH AFTER 24 HOURS OF INCUBATION. Resulted Labs and/or images reviewed: Labs reviewed by me, Image(s) reviewed by me Assessment/Plan Assessment/Plan Acute coronary syndrome cardiology consult by Dr. Montesinos appreciated Angina Anxiety Possible community-acquired pneumonia: Rocephin azithromycin Morbid obesity COPD with acute exacerbation History of seizures Congestive heart failure COPD History of CVA Depression Diabetes Hypertension Hyperlipidemia History of [place] status post stents Recurrent UTIs Generalized weakness Time spent 60 minutes Advanced care planning time 20 minutes Continue current management Plan discussed with: Patient My Orders Orders - CYDNEY MCGARRY MD Procedure Category Date Status Time * Cardiology Consult CONS 12/07/24 Transmitted 15:08 Date of Service: Dec 08, 2024 Billing Provider: CYDNEY MCGARRY MD Common Visit Codes: [id number] CARE 30-74 MIN CYDNEY MCGARRY MD Dec 08, 2024 14:38
[2024-12-08 18:40] VITALS: BP 125/74; PULSE 98; RESP 16; TEMP 98; O2SAT 98
[2024-12-08 19:29] VITALS: O2SAT 100
[2024-12-08] MEDS: HYDROcodone-ACET 5/325MG TAB PO PRN (19:32)
[2024-12-08 21:00] VITALS: BP 140/71; PULSE 73; RESP 18; TEMP 98.6; O2SAT 98
--- NOTE | 2024-12-08 22:17 | DVHPN2 ---
Progress Note - Dictate Date Seen: Dec 08, 2024 Medical Necessity Reason Pt with a Central, PICC or Fol: No Subjective Patient was seen and evaluated in follow up. Patient is on 2 LPM NC. Patient is c/o generalized pain. HGB 9.5, HCT 30.7. Blood cultures are pending. Telemetry reviewed. vital signs Vital Sign Date Time Temp Pulse Resp B/P (MAP) Pulse Ox O2 Delivery O2 Flow Rate FiO2 12/08/24 21:00 98.6 73 18 140/71 (94) 98 98.6 12/08/24 20:00 Nasal Cannula* 2 28 Total Intake and Output 12/07/24 12/07/24 12/08/24 15:00 23:00 07:00 Intake Total 50 ml 50 ml Output Total 400 ml Balance 50 ml -350 ml medications Current Medications Medications Dose Ordered Sig/Yvette Route Start Time Stop Time Status Last Admin Dose Admin Aspirin 81 mg DAILY PO 12/07/24 10:00 12/08/24 10:02 81 MG Clopidogrel Bisulfate 75 mg DAILY PO 12/07/24 10:00 12/08/24 10:02 75 MG Ceftriaxone Sodium 50 ml @ 100 mls/hr DAILY@09 IV 12/07/24 09:00 12/08/24 09:27 100 MLS/HR Azithromycin 250 ml @ 125 mls/hr DAILY IV 12/08/24 10:00 12/08/24 10:02 125 MLS/HR Hydromorphone HCl 0.5 mg Q4HPRN PRN IV 12/07/24 04:00 12/08/24 20:35 0.5 MG Famotidine 20 mg Q12HR IV 12/07/24 10:00 12/08/24 21:08 20 MG Gabapentin 300 mg TID PO 12/07/24 06:00 12/08/24 21:07 300 MG Albuterol 2.5 mg Q4HPRN PRN NEB 12/07/24 04:00 Ipratropium [place] 0.5 mg Q4HPRN PRN NEB 12/07/24 04:00 Methylprednisolone Sodium Succinate 40 mg Q8HR IV 12/07/24 06:00 12/08/24 21:08 40 MG Sodium Chloride 10 ml Q8HR IV 12/07/24 06:00 12/08/24 21:08 10 ML Acetaminophen/ Hydrocodone Bitart 1 tab Q4HP PRN PO 12/07/24 04:00 12/08/24 19:32 1 TAB Ondansetron HCl 4 mg Q4HP PRN IV 12/07/24 04:00 Docusate Sodium 100 mg BIDPRN PRN PO 12/07/24 04:00 Acetaminophen 650 mg Q6HP PRN PO 12/07/24 04:00 Nitroglycerin 0.4 mg Q5MINP PRN SL 12/07/24 04:00 Morphine Sulfate 2 mg Q30M PRN IV 12/07/24 04:00 Levetiracetam 1,000 mg BID PO 12/07/24 13:00 12/08/24 21:07 1,000 MG objective GENERAL: Alert and oriented x 3. No acute distress. EYES: PERRL, EOMI. Anicteric. HENT: Moist mucous membranes. LUNGS: Clear to auscultation bilaterally. CARDIOVASCULAR: Regular rate and rhythm. ABDOMEN: Soft, nontender and nondistended. EXTREMITIES: No edema. NEUROLOGIC: No focal neurological deficits. SKIN: Warm, dry. laboratory and microbiology Laboratory Tests 12/08/24 06:10 Test 12/08/24 06:10 Range/Units Serum Glucose 157 H 74-106 mg/dL Problem List Acute coronary syndrome. Angina. Anxiety. Possible community-acquired pneumonia. Morbid obesity. COPD with acute exacerbation. History of seizures. Congestive heart failure. COPD. History of CVA. Depression. Diabetes. Hypertension. Hyperlipidemia. History of [place] status post stents. Recurrent UTIs. Generalized weakness. Assessment/Plan Continued all current supportive medical care. Morphine and [place] for pain management. Aspirin, Plavix. IV antibiotics as ordered. Nitro SL. Additional plan as per the hospital course. Plan discussed with: Patient ROHINI ABARCA MD Dec 08, 2024 22:17
[2024-12-09] VITALS (10 sets, daily range): BP systolic 99–136; BP diastolic 63–75; PULSE 52–80; RESP 16–18; TEMP 97.9–98.2; O2SAT 95–99
--- NOTE | 2024-12-09 09:18 | DVHPN2 ---
Reviewed: Care Plan, H&P, Labs, Medications, Previous Orders, Radiology Changes from previous H/P or p: No Changes Eyes: No Pain, No Vision change, No Conjunctivae inflammation, No Eyelid inflammation, No Other, No Redness ENT: No Ear pain, No Ear discharge, No Nose pain, No Nose discharge, No Nose congestion, No Mouth pain, No Mouth swelling, No Throat pain, No Throat swelling, No Other Cardiovascular: Chest Pain; No Palpitations, No Orthopnea, No Paroxysmal Noc. Dyspnea, No Edema, No Lt Headedness, No Other Respiratory: No Cough, No Dry; Shortness of breath; No SOB with excertion, No Wheezing, No Hemoptysis, No Pleuritic Pain, No Sputum; Other (SOB at rest) Gastrointestinal: No Nausea, No Vomiting, No Abdominal Pain, No Diarrhea, No Constipation, No Melena, No Hematochezia, No Other Genitourinary: No Dysuria, No Frequency, No Incontinence, No Hematuria, No Retention, No Other Musculoskeletal: No other, No neck pain, No shoulder pain, No arm pain, No back pain, No hand pain, No leg pain, No foot pain Skin: No Rash, No Lesions, No Jaundice, No Bruising, No Other Objective Vitals Vital Signs Date Time Temp Pulse Resp B/P (MAP) Pulse Ox O2 Delivery O2 Flow Rate FiO2 12/09/24 08:40 98.1 53 16 120/63 (82) 98 98.1 12/08/24 20:00 Nasal Cannula* 2 28 Intake/Output Intake and Output 12/09/24 07:00 Intake Total 400 ml Balance 400 ml Intake Oral 400 ml # Voids 1 Medications Current Medications Medications Dose Ordered Sig/Yvette Route Start Time Stop Time Status Last Admin Dose Admin Aspirin 81 mg DAILY PO 12/07/24 10:00 12/08/24 10:02 81 MG Clopidogrel Bisulfate 75 mg DAILY PO 12/07/24 10:00 12/08/24 10:02 75 MG Ceftriaxone Sodium 50 ml @ 100 mls/hr DAILY@09 IV 12/07/24 09:00 12/08/24 09:27 100 MLS/HR Azithromycin 250 ml @ 125 mls/hr DAILY IV 12/08/24 10:00 12/08/24 10:02 125 MLS/HR Hydromorphone HCl 0.5 mg Q4HPRN PRN IV 10/19/25 04:00 12/09/24 05:02 0.5 MG Famotidine 20 mg Q12HR IV 12/07/24 10:00 12/08/24 21:08 20 MG Gabapentin 300 mg TID PO 12/07/24 06:00 12/09/24 05:01 300 MG Albuterol 2.5 mg Q4HPRN PRN NEB 12/07/24 04:00 Ipratropium [place] 0.5 mg Q4HPRN PRN NEB 12/07/24 04:00 Methylprednisolone Sodium Succinate 40 mg Q8HR IV 12/07/24 06:00 12/09/24 05:01 40 MG Sodium Chloride 10 ml Q8HR IV 12/07/24 06:00 12/09/24 05:01 10 ML Acetaminophen/ Hydrocodone Bitart 1 tab Q4HP PRN PO 12/07/24 04:00 12/08/24 19:32 1 TAB Ondansetron HCl 4 mg Q4HP PRN IV 12/07/24 04:00 Docusate Sodium 100 mg BIDPRN PRN PO 12/07/24 04:00 Acetaminophen 650 mg Q6HP PRN PO 12/07/24 04:00 Nitroglycerin 0.4 mg Q5MINP PRN SL 12/07/24 04:00 Morphine Sulfate 2 mg Q30M PRN IV 12/07/24 04:00 Levetiracetam 1,000 mg BID PO 12/07/24 13:00 12/08/24 21:07 1,000 MG Laboratory Results Laboratory Tests 12/08/24 06:10 Microbiology Microbiology Date/Time Source Procedure Growth Status 12/07/24 09:30 Blood Blood Culture - Preliminary NO GROWTH AFTER 24 HOURS OF INCUBATION. Resulted Labs and/or images reviewed: Labs reviewed by me, Image(s) reviewed by me Assessment/Plan Assessment/Plan Acute coronary syndrome cardiology consult by Dr. Montesinos appreciated Angina Anxiety Possible community-acquired pneumonia: Rocephin azithromycin Morbid obesity COPD with acute exacerbation Use of home oxygen 3 L per mt History of seizures Congestive heart failure COPD History of CVA Depression Diabetes Hypertension Hyperlipidemia History of [place] status post stents Recurrent UTIs Generalized weakness Time spent 50 minutes Advanced care planning time 20 minutes Continue current management Possible discharge on Sun Plan discussed with: Patient My Orders Orders - CYDNEY MCGARRY MD Procedure Category Date Status Time * Wound Consult CONS 12/08/24 Transmitted Date of Service: Dec 09, 2024 Billing Provider: CYDNEY MCGARRY MD Common Visit Codes: [id number] INP/OBS CARE(HIGH) CYDNEY MCGARRY MD Dec 09, 2024 09:18
--- NOTE | 2024-12-09 19:54 | DVHPN2 ---
Progress Note - Dictate Date Seen: Dec 09, 2024 Medical Necessity Reason Pt with a Central, PICC or Fol: No Subjective Patient was seen and evaluated in follow up. No overnight events. Patient is stable on 2 LPM NC. Prelim blood cultures show no growth after 48 hours. Telemetry reviewed. vital signs Vital Sign Date Time Temp Pulse Resp B/P (MAP) Pulse Ox O2 Delivery O2 Flow Rate FiO2 12/09/24 10:11 60 18 120/63 12/09/24 08:40 98.1 98 98.1 12/09/24 08:00 Nasal Cannula* 2 28 Total Intake and Output 12/08/24 12/08/24 12/09/24 15:00 23:00 07:00 Intake Total 400 ml Balance 400 ml medications Current Medications Medications Dose Ordered Sig/Yvette Route Start Time Stop Time Status Last Admin Dose Admin Aspirin 81 mg DAILY PO 12/07/24 10:00 12/09/24 09:50 81 MG Clopidogrel Bisulfate 75 mg DAILY PO 12/07/24 10:00 12/09/24 09:50 75 MG Ceftriaxone Sodium 50 ml @ 100 mls/hr DAILY@09 IV 12/07/24 09:00 12/09/24 09:50 100 MLS/HR Azithromycin 250 ml @ 125 mls/hr DAILY IV 12/08/24 10:00 12/09/24 09:51 125 MLS/HR Hydromorphone HCl 0.5 mg Q4HPRN PRN IV 12/07/24 04:00 12/09/24 10:11 0.5 MG Famotidine 20 mg Q12HR IV 12/07/24 10:00 12/09/24 09:50 20 MG Gabapentin 300 mg TID PO 12/07/24 06:00 12/09/24 05:01 300 MG Albuterol 2.5 mg Q4HPRN PRN NEB 12/07/24 04:00 Ipratropium [place] 0.5 mg Q4HPRN PRN NEB 12/07/24 04:00 Methylprednisolone Sodium Succinate 40 mg Q8HR IV 12/07/24 06:00 12/09/24 05:01 40 MG Sodium Chloride 10 ml Q8HR IV 12/07/24 06:00 12/09/24 05:01 10 ML Acetaminophen/ Hydrocodone Bitart 1 tab Q4HP PRN PO 12/07/24 04:00 12/08/24 19:32 1 TAB Ondansetron HCl 4 mg Q4HP PRN IV 12/07/24 04:00 Docusate Sodium 100 mg BIDPRN PRN PO 12/07/24 04:00 Acetaminophen 650 mg Q6HP PRN PO 12/07/24 04:00 Nitroglycerin 0.4 mg Q5MINP PRN SL 12/07/24 04:00 Morphine Sulfate 2 mg Q30M PRN IV 12/07/24 04:00 Levetiracetam 1,000 mg BID PO 12/07/24 13:00 12/09/24 09:50 1,000 MG objective GENERAL: Alert and oriented x 3. No acute distress. EYES: PERRL, EOMI. Anicteric. HENT: Moist mucous membranes. LUNGS: Clear to auscultation bilaterally. CARDIOVASCULAR: Regular rate and rhythm. ABDOMEN: Soft, nontender and nondistended. EXTREMITIES: No edema. NEUROLOGIC: No focal neurological deficits. SKIN: Warm, dry. laboratory and microbiology Laboratory Tests 12/08/24 06:10 Test 12/08/24 06:10 Range/Units Serum Glucose 157 H 74-106 mg/dL Problem List Acute coronary syndrome. Angina. Anxiety. Possible community-acquired pneumonia. Morbid obesity. COPD with acute exacerbation. History of seizures. Congestive heart failure. COPD. History of CVA. Depression. Diabetes. Hypertension. Hyperlipidemia. History of [place] status post stents. Recurrent UTIs. Generalized weakness. Assessment/Plan Continued all current supportive medical care. Morphine and Tylenol for pain management. Aspirin, Plavix. IV antibiotics as ordered. Nitro SL. Additional plan as per the hospital course. Plan discussed with: Patient ROHINI ABARCA MD Dec 09, 2024 13:49
[2024-12-09] MEDS: IPRATROPIUM BROM 0.5 MG/2.5ML INH SOL NEB PRN (21:46)
[2024-12-09] MEDS: ALBUTEROL SULF 2.5 MG/0.5ML(0.5%) NEB SOLN NEB PRN (21:46)
[2024-12-10 00:51] VITALS: BP 119/72; PULSE 60; RESP 18; TEMP 97.9; O2SAT 94
[2024-12-10 05:00] VITALS: BP 126/67; PULSE 65; RESP 18; TEMP 98.4; O2SAT 97
[2024-12-10 07:26] VITALS: O2SAT 96
[2024-12-10 08:00] VITALS: PULSE 80
[2024-12-10 09:00] VITALS: BP 116/63; PULSE 80; RESP 18; TEMP 97.1; O2SAT 99
[2024-12-10] MEDS ORDERED: AZIT500T66 PO (09:08)
[2024-12-10] MEDS ORDERED: PERCOT PO (09:08)
--- NOTE | 2024-12-10 09:15 | DVHPN2 ---
Reviewed: Care Plan, H&P, Labs, Medications, Previous Orders, Radiology Changes from previous H/P or p: No Changes Eyes: No Pain, No Vision change, No Conjunctivae inflammation, No Eyelid inflammation, No Other, No Redness ENT: No Ear pain, No Ear discharge, No Nose pain, No Nose discharge, No Nose congestion, No Mouth pain, No Mouth swelling, No Throat pain, No Throat swelling, No Other Cardiovascular: Chest Pain; No Palpitations, No Orthopnea, No Paroxysmal Noc. Dyspnea, No Edema, No Lt Headedness, No Other Respiratory: No Cough, No Dry; Shortness of breath; No SOB with excertion, No Wheezing, No Hemoptysis, No Pleuritic Pain, No Sputum; Other (SOB at rest) Gastrointestinal: No Nausea, No Vomiting, No Abdominal Pain, No Diarrhea, No Constipation, No Melena, No Hematochezia, No Other Genitourinary: No Dysuria, No Frequency, No Incontinence, No Hematuria, No Retention, No Other Musculoskeletal: No other, No neck pain, No shoulder pain, No arm pain, No back pain, No hand pain, No leg pain, No foot pain Skin: No Rash, No Lesions, No Jaundice, No Bruising, No Other Objective Vitals Vital Signs Date Time Temp Pulse Resp B/P (MAP) Pulse Ox O2 Delivery O2 Flow Rate FiO2 12/10/24 07:26 96 Nasal Cannula* 3 32 12/10/24 05:46 61 17 118/71 12/10/24 05:00 98.4 98.4 Intake/Output Intake and Output 12/10/24 07:00 Intake Total 2050 ml Output Total 1450 ml Balance 600 ml Intake Oral 1750 ml IV Total 300 ml Output Urine Total 1450 ml Medications Current Medications Medications Dose Ordered Sig/Yvette Route Start Time Stop Time Status Last Admin Dose Admin Aspirin 81 mg DAILY PO 12/07/24 10:00 12/09/24 09:50 81 MG Clopidogrel Bisulfate 75 mg DAILY PO 12/07/24 10:00 12/09/24 09:50 75 MG Ceftriaxone Sodium 50 ml @ 100 mls/hr DAILY@09 IV 12/07/24 09:00 12/09/24 09:50 100 MLS/HR Azithromycin 250 ml @ 125 mls/hr DAILY IV 12/08/24 10:00 12/09/24 09:51 125 MLS/HR Hydromorphone HCl 0.5 mg Q4HPRN PRN IV 12/07/24 04:00 12/10/24 05:16 0.5 MG Famotidine 20 mg Q12HR IV 12/07/24 10:00 12/09/24 21:57 20 MG Gabapentin 300 mg TID PO 12/07/24 06:00 12/10/24 05:43 300 MG Albuterol 2.5 mg Q4HPRN PRN NEB 12/07/24 04:00 12/09/24 21:46 2.5 MG Ipratropium [place] 0.5 mg Q4HPRN PRN NEB 12/07/24 04:00 12/09/24 21:46 0.5 MG Methylprednisolone Sodium Succinate 40 mg Q8HR IV 12/07/24 06:00 12/10/24 05:43 40 MG Sodium Chloride 10 ml Q8HR IV 12/07/24 06:00 12/10/24 05:43 10 ML Acetaminophen/ Hydrocodone Bitart 1 tab Q4HP PRN PO 12/07/24 04:00 12/08/24 19:32 1 TAB Ondansetron HCl 4 mg Q4HP PRN IV 12/07/24 04:00 Docusate Sodium 100 mg BIDPRN PRN PO 12/07/24 04:00 Acetaminophen 650 mg Q6HP PRN PO 12/07/24 04:00 Nitroglycerin 0.4 mg Q5MINP PRN SL 12/07/24 04:00 Morphine Sulfate 2 mg Q30M PRN IV 12/07/24 04:00 Levetiracetam 1,000 mg BID PO 12/07/24 13:00 12/09/24 21:57 1,000 MG Laboratory Results Laboratory Tests 12/08/24 06:10 Microbiology Microbiology Date/Time Source Procedure Growth Status 12/07/24 09:30 Blood Blood Culture - Preliminary NO GROWTH AFTER 48 HOURS OF INCUBATION. Resulted Labs and/or images reviewed: Labs reviewed by me, Image(s) reviewed by me Assessment/Plan Assessment/Plan Acute coronary syndrome cardiology consult by Dr. Montesinos appreciated Angina Anxiety Possible community-acquired pneumonia: Rocephin azithromycin Morbid obesity COPD with acute exacerbation Use of home oxygen 3 L per mt History of seizures Congestive heart failure COPD History of CVA Depression Diabetes Hypertension Hyperlipidemia History of [place] status post stents Recurrent UTIs Generalized weakness Patient feels better with less oxygen requirements Discharged home Plan discussed with: Patient My Orders Orders - CYDNEY MCGARRY MD Procedure Category Date Status Time * Dietary Consult CONS 12/09/24 Transmitted 13:38 Apply Z-Guard ELLIE 12/09/24 In Process 11:20 Cleanse Wound With ELLIE 12/09/24 In Process Mild Soap A 11:20 Dietary NOTICE 12/10/24 Transmitted Recommendations 07:33 Date of Service: Dec 10, 2024 Billing Provider: CYDNEY MCGARRY MD Common Visit Codes: [id number] INP/OBS CARE(HIGH) CYDNEY MCGARRY MD Dec 10, 2024 09:14
--- NOTE | 2024-12-10 09:18 | DVHDS2 ---
Discharge Summary Date of Admission Dec 07, 2024 at 03:55 Date of Discharge: Dec 10, 2024 Admitting Diagnosis Shortness of breath Wounds: None Labs/Diagnostic Data: Laboratory Results Test 12/08/24 06:10 12/07/24 03:57 12/07/24 02:25 12/07/24 00:40 White Blood Count 9.4 10^3/uL (4.4-10.8) Red Blood Count 3.48 10^6/uL (4.5-5.90) Hemoglobin 9.5 g/dL (13.5-17.5) Hematocrit 30.7 % (41.0-53.0) Mean Corpuscular Volume 88.3 fL (80.0-100.0) Mean Corpuscular Hemoglobin 27.4 pg (28.0-32.0) Mean Corpuscular Hemoglobin Concent 31.1 g/dL (32.0-36.0) Red Cell Distribution Width 18.1 % (11.8-14.3) Platelet Count 332 10^3/uL (140-450) Mean Platelet Volume 8.9 fL (6.9-10.8) Neutrophils (%) (Auto) 84.7 % (37.0-80.0) Lymphocytes (%) (Auto) 9.9 % (10.0-50.0) Monocytes (%) (Auto) 5.3 % (0.0-12.0) Eosinophils (%) (Auto) 0.0 % (0.0-7.0) Basophils (%) (Auto) 0.1 % (0.0-2.0) Neutrophils # (Auto) 8.0 10 ^3/uL (1.6-8.6) Lymphocytes # (Auto) 0.9 10 ^3/uL (0.4-5.4) Monocytes # (Auto) 0.5 10 ^3/uL (0-1.3) Eosinophils # (Auto) 0 10 ^3/uL (0-0.8) Basophils # (Auto) 0 10 ^3/uL (0-0.2) Nucleated Red Blood Cells 0.0 % Sodium Level 141 mmol/L (136-145) Potassium Level 4.7 mmol/L (3.5-5.1) Chloride Level 109 mmol/L (98-107) Carbon Dioxide Level 23 mmol/L (20-31) Anion Gap 9 (5-15) Blood Urea Nitrogen 23 mg/dL (9-23) Creatinine 1.50 mg/dL (0.700-1.30) Glomerular Filtration Rate Calc 50 mL/min (>90) BUN/Creatinine Ratio 15.3 (10.0-20.0) Serum Glucose 157 mg/dL (74-106) Calcium Level 9.1 mg/dL (8.7-10.4) Total Bilirubin 0.2 mg/dL (0.2-1.0) Aspartate Amino Transferase (AST) 21 U/L (13-40) Alanine Aminotransferase (ALT) 16 U/L (7-40) Alkaline Phosphatase 57 U/L (46-116) Total Protein 7.4 g/dL (5.7-8.2) Albumin 3.4 g/dL (3.2-4.8) Lactic Acid Level 1.0 mmol/L (0.4-2.0) Troponin I High Sensitivity 51 ng/L (</=54) Magnesium Level 2.2 mg/dL (1.6-2.6) B-Type Natriuretic Peptide 75.49 pg/mL (0-100) Other Laboratory Tests 12/08/24 06:10 Brief Hx & Hospital Course: 69-year-old male with multiple medical problems frequent admissions. Patient has a history of angina anxiety COPD home oxygen use seizures congestive heart failure CVA depression diabetes hypertension hypercholesterolemia [place] status post stents recurrent UTIs bed-bound came in complaining of shortness of breaths. Troponin negative x3 cardiology consult by Dr. Montesinos advised to continue the home medications. Possible community-acquired pneumonia treated with Rocephin azithromycin. Comorbid conditions addressed appropriately. At the time of discharge patient is on 2 L of oxygen which is his usual home requirement afebrile. Being discharged home. Prescription for Percocet for his chronic pain syndrome and azithromycin for possible pneumonia [facility]. He will follow up with his primary Dr and Dr. Camille Montesinos General condition poor but stable at the time of discharge Consults/Reason for consult Cardiology Dr. Camille Montesinos Operations or Procedures None Condition at Discharge: Poor Final Diagnosis/Problems List Acute coronary syndrome cardiology consult by Dr. Montesinos appreciated Angina Anxiety Possible community-acquired pneumonia: Rocephin azithromycin Morbid obesity COPD with acute exacerbation Use of home oxygen 3 L per mt History of seizures Congestive heart failure COPD History of CVA Depression Diabetes Hypertension Hyperlipidemia History of [place] status post stents Recurrent UTIs Generalized weakness Discharge Disposition: Home Discharge Instruct/Medications Diet: Cardiac 2g Na,low cholest Activity: Light activity Follow Up/Referral: Resume all previous home medications Follow up with the primary Dr in one week Follow up with the Cardiology DrDany Montesinos Scheduled Aspirin (Aspirin Regular Strength), 1 TAB PO DAILY, (Reported) Atorvastatin Calcium (Lipitor), 1 TAB PO DAILY, (Reported) Azithromycin (Azithromycin), 1 TAB PO DAILY Baclofen (Baclofen), 10 MG PO BID Beclomethasone Dipropionate (Qvar Redihaler), 1 PUFF INH BID, (Reported) Budesonide-Formoterol Fumarate (Budesonide/Formoterol Fum 160-4.5 Mcg/Act), 2 PUFF IN BID, (Reported) Bupropion Hcl (Bupropion Hcl), 2 TAB PO DAILY, (Reported) Clopidogrel Bisulfate (Clopidogrel), 1 TAB PO DAILY, (Reported) Dapagliflozin Propanediol (Farxiga), 1 TAB PO DAILY, (Reported) Furosemide (Lasix), 40 MG PO BID Gabapentin (Gabapentin), 1 TAB PO BID, (Reported) Ipratropium-Albuterol (Combivent Respimat), 1 PUFF INH QID, (Reported) Lactulose (Lactulose), 15 ML PO BID PRN, (Reported) Levetiracetam (Levetiracetam), 1 TAB PO BID, (Reported) Lidocaine (Lidocaine Topical Pain Pa), 1 PATCH TOP DAILY, (Reported) Midodrine HCl (Midodrine Hydrochloride), 1 TAB PO TID, (Reported) Oxybutynin Chloride (Ditropan Xl), 15 MG PO DAILY, (Reported) Oxycodone W/ Acetaminophen (Percocet 5/325MG), 1 TAB PO QID Pantoprazole Sodium Sesquihydr (Pantoprazole Sodium), 1 TAB PO QAM, (Reported) Potassium Chloride (Potassium Chloride ER), 1 TAB PO BID, (Reported) Ranolazine (Ranexa), 500 MG PO BID Silver Sulfadiazine (Silver Sulfadiazine), 1 APPLIC TOP DAILY, (Reported) Trazodone Hcl (Trazodone Hcl), 4 TAB PO HS, (Reported) Scheduled PRN Hydrocodone-Acetaminophen (Hydrocodone Bitartrate/AC 5-325 mg), 1 TAB PO TIDP PRN 36 (Time taken for discharge summary 36 minutes) Discharge Statement: "Patient was advised to return to the ER or call 911 if any headaches, dizziness, shortness of breath, chest pain, abdominal pain, bleeding, fevers, or worsening of medical condition. Patient was counseled about treatment plan, medications, possible side effects, patientverbalized understanding. All questions were answered to the best of my ability. This discharge took greater then 30 minutes in planning, reviewing documentation, counseling the patient, and discussing with other team members." ASSESSMENT ASSESSMENT Hospital Course Improved Assessment Acute coronary syndrome cardiology consult by Dr. Montesinos appreciated Angina Anxiety Possible community-acquired pneumonia: Rocephin azithromycin Morbid obesity COPD with acute exacerbation Use of home oxygen 3 L per mt History of seizures Congestive heart failure COPD History of CVA Depression Diabetes Hypertension Hyperlipidemia History of [place] status post stents Recurrent UTIs Generalized weakness Date of Service: Dec 10, 2024 Billing Provider: CYDNEY MCGARRY MD Common Visit Codes: 96007-SBY/OBS DISCH DAY >30min CYDNEY MCGARRY MD Dec 10, 2024 09:18
[2024-12-10 13:00] VITALS: BP 118/59; PULSE 59; RESP 18; TEMP 97.7; O2SAT 100
--- NOTE | 2024-12-10 23:14 | DVHPN2 ---
Progress Note - Dictate Date Seen: Dec 10, 2024 Medical Necessity Reason Pt with a Central, PICC or Fol: No Subjective Patient was seen and evaluated in follow up. Patient complains of shortness of breath, he is on 3 LPM NC. Telemetry reviewed. vital signs Vital Sign Date Time Temp Pulse Resp B/P (MAP) Pulse Ox O2 Delivery O2 Flow Rate FiO2 12/10/24 09:46 80 18 116/63 12/10/24 09:00 97.1 99 97.1 12/10/24 07:26 Nasal Cannula* 3 32 Total Intake and Output 12/09/24 12/09/24 12/10/24 15:00 23:00 07:00 Intake Total 300 ml 1150 ml 600 ml Output Total 350 ml 1100 ml Balance 300 ml 800 ml -500 ml medications Current Medications Medications Dose Ordered Sig/Yvette Route Start Time Stop Time Status Last Admin Dose Admin Aspirin 81 mg DAILY PO 12/07/24 10:00 12/10/24 09:45 81 MG Clopidogrel Bisulfate 75 mg DAILY PO 12/07/24 10:00 12/10/24 09:45 75 MG Ceftriaxone Sodium 50 ml @ 100 mls/hr DAILY@09 IV 12/07/24 09:00 12/10/24 09:44 100 MLS/HR Azithromycin 250 ml @ 125 mls/hr DAILY IV 12/08/24 10:00 12/10/24 09:44 125 MLS/HR Hydromorphone HCl 0.5 mg Q4HPRN PRN IV 12/07/24 04:00 12/10/24 09:46 0.5 MG Famotidine 20 mg Q12HR IV 12/07/24 10:00 12/10/24 09:44 20 MG Gabapentin 300 mg TID PO 12/07/24 06:00 12/10/24 05:43 300 MG Albuterol 2.5 mg Q4HPRN PRN NEB 12/07/24 04:00 12/09/24 21:46 2.5 MG Ipratropium [place] 0.5 mg Q4HPRN PRN NEB 12/07/24 04:00 12/09/24 21:46 0.5 MG Methylprednisolone Sodium Succinate 40 mg Q8HR IV 12/07/24 06:00 12/10/24 05:43 40 MG Sodium Chloride 10 ml Q8HR IV 12/07/24 06:00 12/10/24 05:43 10 ML Acetaminophen/ Hydrocodone Bitart 1 tab Q4HP PRN PO 12/07/24 04:00 12/08/24 19:32 1 TAB Ondansetron HCl 4 mg Q4HP PRN IV 12/07/24 04:00 Docusate Sodium 100 mg BIDPRN PRN PO 12/07/24 04:00 Acetaminophen 650 mg Q6HP PRN PO 12/07/24 04:00 Nitroglycerin 0.4 mg Q5MINP PRN SL 12/07/24 04:00 Morphine Sulfate 2 mg Q30M PRN IV 12/07/24 04:00 Levetiracetam 1,000 mg BID PO 12/07/24 13:00 12/10/24 09:45 1,000 MG objective GENERAL: Alert and oriented x 3. No acute distress. EYES: PERRL, EOMI. Anicteric. HENT: Moist mucous membranes. LUNGS: Clear to auscultation bilaterally. CARDIOVASCULAR: Regular rate and rhythm. ABDOMEN: Soft, nontender and nondistended. EXTREMITIES: No edema. NEUROLOGIC: No focal neurological deficits. SKIN: Warm, dry. laboratory and microbiology Laboratory Tests 12/08/24 06:10 Test 12/08/24 06:10 Range/Units Serum Glucose 157 H 74-106 mg/dL Problem List Acute coronary syndrome. Angina. Anxiety. Possible community-acquired pneumonia. Morbid obesity. COPD with acute exacerbation. History of seizures. Congestive heart failure. COPD. History of CVA. Depression. Diabetes. Hypertension. Hyperlipidemia. History of [place] status post stents. Recurrent UTIs. Generalized weakness. Assessment/Plan Continued all current supportive medical care. Nitro SL. Aspirin, Plavix. IV antibiotics as ordered. Morphine and Tylenol for pain management. Additional plan as per the hospital course. Dietary Evaluation Review Comments: Nutrition Recommendation 1) Consider CCHO 75gm + cardiac diet 2) Refer Manager Privacy for diabetes education 3) Monitor PO intake, lab values, weight trend, and I/O Expected Outcomes/Goals: Intake to meet >75% estimated needs Fu 3-5 days Plan discussed with: Patient ROHINI ABARCA MD Dec 10, 2024 12:16
== END 2024-12-10 16:51 | disposition home or self-care (01) | DRG 177 ==
LOC: ER 23:49 → EDBD 23:49 → OVERFLOW 12-07 03:55 → TELE-CENTR 12-07 22:36 → OVERFLOW 12-07 23:45 → TELE-CENTR 12-08 18:21
PROVIDERS: ADMIT Family Medicine; ATTEND Family Medicine
DX: J15.69 Pneumonia due to other Gram-negative bacteria (principal); J96.01 Acute respiratory failure with hypoxia; R53.2 Functional quadriplegia; I24.9 Acute ischemic heart disease, unspecified; J44.1 Chronic obstructive pulmonary disease with (acute) exacerbation; Z68.41 Body mass index [BMI] 40.0-44.9, adult; J44.0 Chronic obstructive pulmonary disease with (acute) lower respiratory infection; I50.32 Chronic diastolic (congestive) heart failure; J15.9 Unspecified bacterial pneumonia; J98.4 Other disorders of lung; E66.01 Morbid (severe) obesity due to excess calories; F41.9 Anxiety disorder, unspecified; E11.9 Type 2 diabetes mellitus without complications; F32.A Depression, unspecified; I11.0 Hypertensive heart disease with heart failure; K21.9 Gastro-esophageal reflux disease without esophagitis; E78.00 Pure hypercholesterolemia, unspecified; E89.0 Postprocedural hypothyroidism; G89.4 Chronic pain syndrome; I25.2 Old myocardial infarction; Z74.01 Bed confinement status; Z81.8 Family history of other mental and behavioral disorders; Z82.3 Family history of stroke; Z82.49 Family history of ischemic heart disease and other diseases of the circulatory system; Z82.5 Family history of asthma and other chronic lower respiratory diseases; Z83.3 Family history of diabetes mellitus; Z86.73 Personal history of transient ischemic attack (TIA), and cerebral infarction without residual deficits; Z87.440 Personal history of urinary (tract) infections; Z95.5 Presence of coronary angioplasty implant and graft; Z90.49 Acquired absence of other specified parts of digestive tract; I25.118 Atherosclerotic heart disease of native coronary artery with other forms of angina pectoris
CPT/HCPCS: 36415; 71045; 80053; 83605; 83735; 83880; 84484; 85025; 87040; 93005; 94640; G0378; J2405; J3490

== ENCOUNTER 2024-12-13 04:01 | Inpatient (IN) | payer BC, OTHER ==
[~2024-12-13] VITALS: Ht 180.3 cm; Wt 125.3 kg
[~2024-12-13 04:01] MED LIST changes: +AZIT500T66 PO; +PERCOT PO
[2024-12-13 05:25] VITALS: PULSE 75; RESP 20; O2SAT 97
--- NOTE | 2024-12-13 05:59 | DVH ---
CHEST RADIOGRAPH Indication: Chest pain Technique: Single frontal view of the chest was obtained COMPARISON: XR CHEST 1 VIEW on DOS: 12/11/24, XY CHEST PORTABLE on DOS: 12/07/24, XY CHEST PORTABLE o n DOS: 12/01/24, XY CHEST PORTABLE on DOS: 11/29/24, XR CHEST 1 VIEW on DOS: 11/28/24 FINDINGS: Lines and Tubes: None Lungs: Mild diffuse increased prominence of the pulmonary vasculature. Probable small bilateral pleu ral effusions. No pneumothorax. Cardiomediastinal contours: Cardiomegaly. Bones: Unremarkable IMPRESSION: 1. Cardiomegaly with mild pulmonary vascular congestion and probable small bilateral pleural effusion s.
--- NOTE | 2024-12-13 06:24 | ECG ---
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
--- NOTE | 2024-12-13 06:43 | ECG ---
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
--- NOTE | 2024-12-13 06:54 | ED.PDOC ---
HPI Comments This is a 69 year-old male with a Hx of CHF, Anxiety, CAD, HTN, and NE, who presents to the ED with a chief complaint of substernal chest pain for months. Patient visits the ED frequently for substernal chest pain. Patient has no further complaints at this time and otherwise denies symptoms of palpitations, cough, SOB, fever, chills, N/V/D. Chief Complaint: Chest Pain Time Seen by MD: 06:23 Primary Care Provider: marie William Notes: Medications, Allergies Allergies: Coded Allergies: Acetaminophen (Verified Allergy, Unknown, 12/13/24) Home Meds Active Scripts Oxycodone W/ Acetaminophen (Percocet 5/325MG) 1 Tab Tb, 1 TAB PO QID, #40 TAB Prov:CYDNEY MCGARRY MD 12/10/24 Azithromycin (Azithromycin) 500 Mg Tab, 1 TAB PO DAILY, #7 TAB Prov:CYDNEY MCGARRY MD 12/10/24 Baclofen (Baclofen) 10 Mg Tab, 10 MG PO BID for 7 Days, #14 TAB 0 Refills Prov:AMANDA RODRÍGUEZ MD 12/02/24 Hydrocodone-Acetaminophen (Hydrocodone Bitartrate/AC 5-325 mg) 1 Tab Tab, 1 TAB PO TIDP PRN for 7 Days, #21 TAB 0 Refills Prov:AMANDA RODRÍGUEZ MD 12/02/24 Furosemide (Lasix) 40 Mg Tab, 40 MG PO BID for 30 Days, #60 TAB Prov:BK LAGUERRE MD 05/29/24 Ranolazine (Ranexa) 500 Mg Tab, 500 MG PO BID for 30 Days, #60 TAB Prov:JUSTIN DUARTE MD 10/22/18 Reported Medications Budesonide-Formoterol Fumarate (Budesonide/Formoterol Fum 160-4.5 Mcg/Act) 1 Aer Aer, 2 PUFF IN BID for 30 Days, #10.2 02/26/24 Midodrine HCl (Midodrine Hydrochloride) 5 Mg Tab, 1 TAB PO TID for 30 Days, #90 02/26/24 Potassium Chloride (Potassium Chloride ER) 10 Meq Tab, 1 TAB PO BID for 30 Days, #60 02/26/24 Aspirin (Aspirin Regular Strength) 325 Mg Tab, 1 TAB PO DAILY for 30 Days, #30 02/26/24 Lactulose (Lactulose) 10 Gm/15 Ml Rachna, 15 ML PO BID PRN for 15 Days, #473 02/26/24 Atorvastatin Calcium (Lipitor) 80 Mg Tab, 1 TAB PO DAILY for 30 Days, #30 02/26/24 Levetiracetam (Levetiracetam) 750 Mg Tab, 1 TAB PO BID for 30 Days, #60 02/26/24 Lidocaine (Lidocaine Topical Pain Pa) 4 % Pad, 1 PATCH TOP DAILY 06/28/23 Gabapentin (Gabapentin) 800 Mg Tab, 1 TAB PO BID for 30 Days, #60 06/28/23 Ipratropium-Albuterol (COMBIVENT RESPIMAT) Respimat Aer, 1 PUFF INH QID 05/14/23 Dapagliflozin Propanediol (Farxiga) 10 Mg Tab, 1 TAB PO DAILY for 30 Days, #30 05/14/23 Beclomethasone Dipropionate (Qvar Redihaler) 80 Mcg/Act Aer, 1 PUFF INH BID for 30 Days, #10.6 02/27/23 Silver Sulfadiazine (Silver Sulfadiazine) 1 % Cre, 1 APPLIC TOP DAILY for 30 Days, #50 02/27/23 Oxybutynin Chloride (Ditropan Xl) 5 Mg Tab, 15 MG PO DAILY for 30 Days, #30 02/27/23 Trazodone Hcl (Trazodone Hcl) 100 Mg Tab, 4 TAB PO HS for 30 Days, #120 02/27/23 Clopidogrel Bisulfate (CLOPIDOGREL) 75 Mg Tab, 1 TAB PO DAILY for 30 Days, #30 02/07/23 Pantoprazole Sodium Sesquihydr (Pantoprazole Sodium) 40 Mg Tab, 1 TAB PO QAM 02/07/23 Bupropion Hcl (Bupropion Hcl) 75 Mg Tab, 2 TAB PO DAILY for 30 Days, #60 11/10/17 Information Source: Patient Mode of Arrival: EMS Severity: Moderate Timing: Months Duration: Since onset Location: Substernal Radiation: No Radiation Onset: At Rest, With Light Exertion, With Heavy Exertion Past Medical History PAST MEDICAL HISTORY: Angina, Anxiety, Asthma, CAD, CHF, CKF, COPD, CVA, Depression, DM, GERD, High Lipids, HTN, Liver, NE, TIA, UTI'S Surgical History: Appendectomy, Cholecystectomy, PTCA, Thyroidectomy Family History Family History: Reviewed,noncontributory to illness, Unknown Social History Smoker: Non-Smoker Alcohol: Denies ETOH Use Drugs: Denies Drug Use Lives In: Home Constitutional: denies: chills, diaphoresis, fatigue, fever, malaise, sweats, weakness, others EENTM: denies: blurred vision, double vision, ear bleeding, ear discharge, ear drainage, ear pain, ear ringing, eye pain, eye redness, hearing loss, mouth pain, mouth swelling, nasal discharge, nose bleeding, nose congestion, nose pain, photophobia, tearing, throat pain, throat swelling, voice changes, others Respiratory: denies: cough, hemoptysis, orthopnea, SOB at rest, shortness of breath, SOB with excertion, stridor, wheezing, others Cardiovascular: reports: chest pain; denies: dizzy spells, diaphoresis, Dyspnea on exertion, edema, irregular heart beat, left arm pain, lightheadedness, palpitations, PND, syncope, others Gastrointestinal: denies: abdomen distended, abdominal pain, blood streaked bowels, constipated, diarrhea, dysphagia, difficulty swallowing, hematemesis, melena, nausea, poor appetite, poor fluid intake, rectal bleeding, rectal pain, vomiting, others Genitourinary: denies: burning, dysuria, flank pain, frequency, hematuria, incontinence, penile discharge, penile sore, pain, testicle pain, testicle swelling, urgency, others Neurological: denies: dizziness, fainting, headache, left sided numbness, left sided weakness, numbness, paresthesia, pre-existing deficit, right sided numbness, right sided weakness, seizure, speech problems, tingling, tremors, weakness, others Musculoskeletal: denies: back pain, gout, joint pain, joint swelling, muscle pain, muscle stiffness, neck pain, others Integumetry: denies: bruises, change in color, change in hair/nails, dryness, laceration, lesions, lumps, rash, wounds, others Allergic/Immunocompromised: denies: Difficulty Healing, Frequent Infections, Hives, Itching, others Hematologic/Lymphatic: denies: anemia, blood clots, easy bleeding, easy bruising, swollen glands, others Endocrine: denies: excessive hunger, excessive sweating, excessive thirst, excessive urination, flushing, intolerance to cold, intolerance to heat, unexplained weight gain, unexplained weight loss, others Psychiatric: denies: anxiety, bipolar disorder, depression, hopeless, panic disorder, schizophrenia, sleepless, suicidal, others All Other Systems: Reviewed and Negative Physical Exam General Appearance: Moderate Distress, Obese HEENT: Normal ENT Inspection, Pharynx Normal, TMs Normal Neck: Full Range of Motion, Non-Tender, Normal, Normal Inspection Respiratory: Chest Non-Tender, Lungs Clear, No Accessory Muscle Use, No Respiratory Distress, Normal Breath Sounds Cardiovascular: Tachycardia Breast Exam: Deferred Gastrointestinal: No Organomegaly, Non Tender, No Pulsatile Mass, Normal Bowel Sounds, Soft Genitalia: Deferred Pelvic: Deferred Rectal: Deferred Extremities: No calf tenderness Musculoskeletal : Apperance: Normal Neurologic: Alert Cerebellar Function: NOT DONE Reflexes: NOT DONE Skin: Normal Color Peripheral Pulses: 3+ Radial (R), 3+ Radial (L) Lymphatic: No Adenopathy EKG EKG : Pulse Rate (adult): 104 [place]: Normal Cardiac Rhythm: ST Block: None Hypertrophy: None ST: Normal Was a procedure done? Was a procedure done?: No CP Differential Dx Differential Diagnosis: A-fib, A-Flutter, Angina, Anxiety / Panic Attack, Atrial Dysrhythmia, Electrolyte Disorder, Sinus Tachycardia Differential Diagnosis: HTN Essential Differential Diagnosis: Angina, Aortic dissection, Chest Wall Pain X-Ray, Labs, Meds, VS Vital Signs Date Time Temp Pulse Resp B/P (MAP) Pulse Ox O2 Delivery O2 Flow Rate FiO2 12/13/24 10:00 94 16 153/70 (97) 97 12/13/24 08:42 134/79 12/13/24 08:11 97 Room Air* 0 21 12/13/24 08:07 68 16 97 Room Air* 0 21 12/13/24 08:00 101 12/13/24 08:00 83 16 145/70 (95) 97 12/13/24 07:42 142/65 12/13/24 07:00 97.8 90 16 142/65 (90) 97 97.8 12/13/24 06:54 104 12/13/24 06:22 104 12/13/24 05:25 98.1 100 20 130/78 (95) 97 98.1 12/13/24 05:25 75 20 97 Room Air* 0 21 12/13/24 04:10 98.1 71 18 135/72 94 98.1 12/13/24 04:05 71 Lab Test 12/13/24 09:27 12/13/24 07:24 12/13/24 04:09 Range/Units Urine Color Light-yellow Yellow Urine Clarity Clear Clear Urine pH 5.0 5.0-9.0 Urine Specific [facility] 1.016 1.001-1.035 Urine Protein Negative Negative Urine Ketones Negative Negative Urine Blood Negative Negative /uL Urine Nitrite Negative Negative Urine Bilirubin Negative Negative Urine Urobilinogen Normal Negative mg/dL Urine Leukocyte Esterase Negative Negative /uL Urine RBC <1 0 - 3 /hpf Urine Microscopic WBC < 1 0-3 /HPF Urine Squamous Epithelial Cells Few <5 /hpf Urine Bacteria None seen None Seen /hpf Urine Glucose Normal Normal mg/dL White Blood Count 8.4 4.4-10.8 10^3/uL Red Blood Count 3.91 L 4.5-5.90 10^6/uL Hemoglobin 10.5 L 13.5-17.5 g/dL Hematocrit 32.8 L 41.0-53.0 % Mean Corpuscular Volume 83.8 # 80.0-100.0 fL Mean Corpuscular Hemoglobin 26.8 L 28.0-32.0 pg Mean Corpuscular Hemoglobin Concent 32.0 32.0-36.0 g/dL Red Cell Distribution Width 17.4 H 11.8-14.3 % Platelet Count 326 140-450 10^3/uL Mean Platelet Volume 9.0 6.9-10.8 fL Neutrophils (%) (Auto) 58.4 37.0-80.0 % Lymphocytes (%) (Auto) 29.7 10.0-50.0 % Monocytes (%) (Auto) 10.5 0.0-12.0 % Eosinophils (%) (Auto) 1.2 0.0-7.0 % Basophils (%) (Auto) 0.2 0.0-2.0 % Neutrophils # (Auto) 4.9 1.6-8.6 10 ^3/uL Lymphocytes # (Auto) 2.5 0.4-5.4 10 ^3/uL Monocytes # (Auto) 0.9 0-1.3 10 ^3/uL Eosinophils # (Auto) 0.1 0-0.8 10 ^3/uL Basophils # (Auto) 0 0-0.2 10 ^3/uL Nucleated Red Blood Cells 0.1 % Sodium Level 143 136-145 mmol/L Potassium Level 4.4 3.5-5.1 mmol/L Chloride Level 111 H 98-107 mmol/L Carbon Dioxide Level 24 20-31 mmol/L Anion Gap 8 5-15 Blood Urea Nitrogen 30 H 9-23 mg/dL Creatinine 1.14 0.700-1.30 mg/dL Glomerular Filtration Rate Calc 69 >90 mL/min BUN/Creatinine Ratio 26.3 H 10.0-20.0 Serum Glucose 90 74-106 mg/dL Calcium Level 8.5 L 8.7-10.4 mg/dL B-Type Natriuretic Peptide 66.54 0-100 pg/mL Troponin I High Sensitivity 60 *H </=54 ng/L Current Medications Medications (Trade) Dose Ordered Sig/Yvette Route Start Time Stop Time Status Last Admin Enoxaparin Sodium (Lovenox) 130 mg ONCE ONCE SC 12/13/24 07:30 12/13/24 07:32 DC 12/13/24 07:44 Aspirin 325 mg ONCE ONCE PO 12/13/24 07:30 12/13/24 07:32 DC 12/13/24 07:44 Nitroglycerin (Ntrostat Sublingual) 0.4 mg ONCE ONCE SL 12/13/24 07:30 12/13/24 07:32 DC 12/13/24 07:42 [place] [id number] Ph: [phone] DIAGNOSTIC IMAGING Diagnostic Imaging Report : [id number] Signed PATIENT: NAVID SANCHEZ ACCT: [id number] UNIT: [id number] : 1955 LOC: ER ROOM / BED: / AGE / SEX: 69 / M ADM STATUS: REG ER SERVICE 3 ORDERING PHYSICIAN: JOSIAH VARNER MD PROCEDURE(s): CXR1 - CHEST XRAY 1 VIEW REASON: Chest pain ORDER NUMBER(s): [id number], ACCESSION NUMBER(s): [id number] CHEST RADIOGRAPH Indication: Chest pain Technique: Single frontal view of the chest was obtained COMPARISON: XR CHEST 1 VIEW on DOS: 12/11/24, XY CHEST PORTABLE on DOS: 12/07/24, XY CHEST PORTABLE on DOS: 12/01/24, XY CHEST PORTABLE on DOS: 11/29/24, XR CHEST 1 VIEW on DOS: 11/28/24 FINDINGS: Lines and Tubes: None Lungs: Mild diffuse increased prominence of the pulmonary vasculature. Probable small bilateral pleural effusions. No pneumothorax. Cardiomediastinal contours: Cardiomegaly. Bones: Unremarkable IMPRESSION: 1. Cardiomegaly with mild pulmonary vascular congestion and probable small bilateral pleural effusions. ATED BY: KEITH BLOUNT MD DICTATED DATE/TIME: 12/13/24555 SIGNED BY: KEITH BLOUNT MD SIGNED DATE/TIME: 12/13/24555 CC: Patient alert. Complaining of chest pain. Vitals stable. Answering questions. Cardiac marker slightly elevated. Was given Lovenox. Reviewed his previous visit. History of coronary artery disease. EKG reviewed does not show any acute changes. Explained to the patient. Continue monitoring. Time of 1ST Reevaluation: 07:41 Reevaluation 1ST: Unchanged Patient Education/Counseling: Diagnosis, Treatment Family Education/Counseling: No Family Present SEPSIS Sepsis Screen Date sepsis recognized/suspect: Dec 13, 2024 Time Sepsis recognized/suspect: 527 Recent Procedure: No On Antibiotic Therapy: No Respiratory Rate >20: No Heart Rate >90: No Temp<36 C (96.8 F) or >38.3 C: No SBP <90 or MAP <65 mmHG: No New Acute Mental Status Change: No Is the patient on CPAP, BIPAP,: No Physician Orders Chest Xray 1 View (12/13/24 04:04) Electrocardigram (12/13/24 07:04) Vital Signs Q1HR (12/13/24 04:04) Titrate Oxygen (12/13/24 04:04) Oxygen (12/13/24 ) Continous Pulse Oximetry (12/13/24 04:04) Saline Lock (12/13/24 04:04) Unarmed Security Officer (12/13/24 ) Vital Signs Date Time Temp Pulse Resp B/P (MAP) Pulse Ox O2 Delivery O2 Flow Rate FiO2 12/13/24 10:00 94 16 153/70 (97) 97 12/13/24 08:42 134/79 12/13/24 08:11 97 Room Air* 0 21 12/13/24 08:07 68 16 97 Room Air* 0 21 12/13/24 08:00 101 12/13/24 08:00 83 16 145/70 (95) 97 12/13/24 07:42 142/65 12/13/24 07:00 97.8 90 16 142/65 (90) 97 97.8 12/13/24 06:54 104 12/13/24 06:22 104 12/13/24 05:25 98.1 100 20 130/78 (95) 97 98.1 12/13/24 05:25 75 20 97 Room Air* 0 21 12/13/24 04:10 98.1 71 18 135/72 94 98.1 12/13/24 04:05 71 Laboratory Tests Test 12/13/24 07:24 White Blood Count 8.4 10^3/uL (4.4-10.8) Medications Medications Dose Ordered Sig/Yvette Route Start Time Stop Time Status Last Admin Dose Admin Aspirin 325 mg ONCE ONCE PO 12/13/24 07:30 12/13/24 07:32 DC 12/13/24 07:44 Enoxaparin Sodium 130 mg ONCE ONCE SC 12/13/24 07:30 12/13/24 07:32 DC 12/13/24 07:44 Nitroglycerin 0.4 mg ONCE ONCE SL 12/13/24 07:30 12/13/24 07:32 DC 12/13/24 07:42 Departure 1 Departure Time of Disposition: 07:23 Impression: Primary Impression: Chest pain of unknown etiology Additional Impression: Demand ischemia Disposition: 09 ADMITTED INPATIENT Admit to: Med Surg Condition: Guarded Critical Care Note Critical Care Time?: Yes (90 min-critical care time only) Stability Stability form required: No Heart Score Heart Score: Heart Score Response (Comments) Value History Moderate Suspicious 1 EKG Normal 0 Age >65 2 Risk Factors 1 or 2 risk factors 1 Troponin 1-2 x's Normal limit 1 Total 5 I personally scribed for ROSELYN CHANG MD ([email or web address]) on 12/13/24 at 06:54. Electronically submitted by Bettina Welch ([email or web address]). I personally scribed for ROSELYN CHANG MD ([email or web address]) on 12/13/24 at 15:09. Electronically submitted by Alfredo Nguyen [email or web address]). ROSELYN CHANG MD Dec 13, 2024 06:54
[2024-12-13] MEDS: NITROGLYCERIN 0.4 MG SL TAB SL ONE (07:42)
[2024-12-13] MEDS: ENOXAPARIN SOD 150 MG/1 ML SYRINGE SC ONE (07:44)
[2024-12-13 07:57] LABS: Hematocrit 32.8 % (41.0-53.0); Hemoglobin 10.5 g/dL (13.5-17.5); Mean Corpuscular Hemoglobin 26.8 pg (28.0-32.0); Mean Corpuscular Volume 83.8 fL (80.0-100.0); Nucleated Red Blood Cells % 0.1 %
[2024-12-13 08:07] VITALS: PULSE 68; RESP 16; O2SAT 97
[2024-12-13 08:15] LABS: Potassium 4.4 mmol/L (3.5-5.1); Sodium 143 mmol/L (136-145)
[2024-12-13 08:16] LABS: Anion Gap 8 (5-15); Carbon Dioxide 24 mmol/L (20-31)
[2024-12-13 08:21] LABS: BUN/Creatinine Ratio 26.3 (10.0-20.0); Glucose 90 mg/dL (74-106)
[2024-12-13 08:28] LABS: Blood Urea Nitrogen 30 mg/dL (9-23); Calcium 8.5 mg/dL (8.7-10.4); Chloride 111 mmol/L (98-107)
[2024-12-13 09:33] LABS: Urine Protein, UAD Negative (Negative)
[2024-12-13] MEDS ORDERED: NITROGLYCERIN 0.4 MG SL TAB SL PRN (11:00)
[2024-12-13] MEDS ORDERED: DEXTROSE (50%) 50ML SYRG IV PRN (11:00)
[2024-12-13] MEDS: InsuLIN REG 1unit/0.01ml Soln (100units/ml) SC SCH (11:30)
[2024-12-13] MEDS: ONDANSETRON HCL 4 MG/2 ML VIAL IV PRN (11:39)
[2024-12-13] MEDS: MORPHINE SULFATE 4 MG/ML SYR/VIAL IV PRN (11:39)
[2024-12-13] MEDS: ACCU-CHEK COMFORT CURVE STRIP VI SCH (11:46)
[2024-12-13] MEDS: MORPHINE SULFATE INJ 2 MG/ml SYRG ONE (11:46)
[2024-12-13 12:00] VITALS: BP_SYST 123; BP_SYST 134; BP_DIAS 62; BP_DIAS 84; PULSE 65; PULSE 88; RESP 22; TEMP 98.1; TEMP 99; O2SAT 95; O2SAT 99
--- NOTE | 2024-12-13 15:15 | ECG ---
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
[2024-12-13 16:00] VITALS: BP 131/66; PULSE 67; RESP 20; TEMP 98; O2SAT 94
--- NOTE | 2024-12-13 17:04 | DVHHP2 ---
History of Present Illness Reason for Visit: Chest pain History of Present Illness 69-year-old male presents for evaluation of chest pain. Patient endorses worsening substernal chest pain with associated shortness for breath. No nausea or vomiting. No cough or fever. No other acute complaints. Past Medical History Asthma, CAD, CHF, chronic kidney disease, COPD, CVA, depression, diabetes mellitus Past Surgical History PTCA, thyroidectomy, appendectomy, cholecystectomy Family History Noncontributory Smoke: No ALCOHOL: none Drugs: None Review of Systems Review of Systems Review of systems are currently negative otherwise addressed in HPI. Allergies: Coded Allergies: Acetaminophen (Verified Allergy, Unknown, 12/13/24) Medications Current Medications Medications Dose Ordered Sig/Yvette Route Start Time Stop Time Status Last Admin Dose Admin Bupropion HCl 75 mg BID@07,19 PO 12/13/24 19:00 Atorvastatin Calcium 80 mg HS PO 12/13/24 22:00 Clopidogrel Bisulfate 75 mg DAILY PO 12/14/24 10:00 Furosemide 40 mg BIDD PO 12/13/24 18:00 Gabapentin 800 mg BID PO 12/13/24 22:00 Levetiracetam 750 mg BID PO 12/13/24 22:00 Ranolazine 500 mg BID PO 12/13/24 22:00 Diagnostic Test (Pha) 1 strip ACHS 12/13/24 11:30 12/13/24 16:49 1 STRIP Insulin Human Regular ACHS SC 12/13/24 11:30 Dextrose 50 ml UD PRN IV 12/13/24 11:00 Ondansetron HCl 4 mg Q4HP PRN IV 12/13/24 11:00 12/13/24 11:39 4 MG Nitroglycerin 0.4 mg Q5MINP PRN SL 12/13/24 11:00 Morphine Sulfate 2 mg Q30M PRN IV 12/13/24 11:15 12/13/24 11:39 2 MG Exam Vital Signs Vital Signs Date Time Temp Pulse Resp B/P (MAP) Pulse Ox O2 Delivery O2 Flow Rate FiO2 12/13/24 16:00 59 12/13/24 12:00 98.6 16 134/62 (86) 97 98.6 12/13/24 08:11 Room Air* 0 21 Exam Gen: 69-year-old male in mild distress, morbidly obese Skin: Warm, dry, normal color and texture, no rash. HEENT: Normocephalic atraumatic, mucous membranes moist and pink. Neck: Cervical and supraclavicular nodes normal without enlargement, trachea is midline, thyroid gland is normal without masses. Pulmonary: Clear to auscultation and percussion bilaterally. Cardiac: Regular rate and rhythm. No murmur Abdomen: Soft, nontender, nondistended, bowel sounds present all 4 quadrants, no guarding, no rigidity, no organomegaly. Extremities: No cyanosis, clubbing, no edema Neuro: Cranial nerves II through XII grossly intact, normal affect and speech, no focal motor deficits. Labs/Xrays ORDERING PHYSICIAN: JOSIAH VARNER MD PROCEDURE(s): CXR1 - CHEST XRAY 1 VIEW REASON: Chest pain ORDER NUMBER(s): [id number], ACCESSION NUMBER(s): [id number] CHEST RADIOGRAPH Indication: Chest pain Technique: Single frontal view of the chest was obtained COMPARISON: XR CHEST 1 VIEW on DOS: 12/11/24, XY CHEST PORTABLE on DOS: 12/07/24, XY CHEST PORTABLE on DOS: 12/01/24, XY CHEST PORTABLE on DOS: 11/29/24, XR CHEST 1 VIEW on DOS: 11/28/24 FINDINGS: Lines and Tubes: None Lungs: Mild diffuse increased prominence of the pulmonary vasculature. Probable small bilateral pleural effusions. No pneumothorax. Cardiomediastinal contours: Cardiomegaly. Bones: Unremarkable IMPRESSION: 1. Cardiomegaly with mild pulmonary vascular congestion and probable small bilateral pleural effusions. Labs Test 12/13/24 16:08 12/13/24 12:40 12/13/24 09:27 12/13/24 07:24 Range/Units POC Glucose 88 70-106 mg/dl Troponin I High Sensitivity 82 *H </=54 ng/L Urine Color Light-yellow Yellow Urine Clarity Clear Clear Urine pH 5.0 5.0-9.0 Urine Specific [place] 1.016 1.001-1.035 Urine Protein Negative Negative Urine Ketones Negative Negative Urine Blood Negative Negative /uL Urine Nitrite Negative Negative Urine Bilirubin Negative Negative Urine Urobilinogen Normal Negative mg/dL Urine Leukocyte Esterase Negative Negative /uL Urine RBC <1 0 - 3 /hpf Urine Microscopic WBC < 1 0-3 /HPF Urine Squamous Epithelial Cells Few <5 /hpf Urine Bacteria None seen None Seen /hpf Urine Glucose Normal Normal mg/dL White Blood Count 8.4 4.4-10.8 10^3/uL Red Blood Count 3.91 L 4.5-5.90 10^6/uL Hemoglobin 10.5 L 13.5-17.5 g/dL Hematocrit 32.8 L 41.0-53.0 % Mean Corpuscular Volume 83.8 # 80.0-100.0 fL Mean Corpuscular Hemoglobin 26.8 L 28.0-32.0 pg Mean Corpuscular Hemoglobin Concent 32.0 32.0-36.0 g/dL Red Cell Distribution Width 17.4 H 11.8-14.3 % Platelet Count 326 140-450 10^3/uL Mean Platelet Volume 9.0 6.9-10.8 fL Neutrophils (%) (Auto) 58.4 37.0-80.0 % Lymphocytes (%) (Auto) 29.7 10.0-50.0 % Monocytes (%) (Auto) 10.5 0.0-12.0 % Eosinophils (%) (Auto) 1.2 0.0-7.0 % Basophils (%) (Auto) 0.2 0.0-2.0 % Neutrophils # (Auto) 4.9 1.6-8.6 10 ^3/uL Lymphocytes # (Auto) 2.5 0.4-5.4 10 ^3/uL Monocytes # (Auto) 0.9 0-1.3 10 ^3/uL Eosinophils # (Auto) 0.1 0-0.8 10 ^3/uL Basophils # (Auto) 0 0-0.2 10 ^3/uL Nucleated Red Blood Cells 0.1 % Sodium Level 143 136-145 mmol/L Potassium Level 4.4 3.5-5.1 mmol/L Chloride Level 111 H 98-107 mmol/L Carbon Dioxide Level 24 20-31 mmol/L Anion Gap 8 5-15 Blood Urea Nitrogen 30 H 9-23 mg/dL Creatinine 1.14 0.700-1.30 mg/dL Glomerular Filtration Rate Calc 69 >90 mL/min BUN/Creatinine Ratio 26.3 H 10.0-20.0 Serum Glucose 90 74-106 mg/dL Calcium Level 8.5 L 8.7-10.4 mg/dL B-Type Natriuretic Peptide 66.54 0-100 pg/mL SEPSIS Sepsis Screen Date sepsis recognized/suspect: Dec 13, 2024 Time Sepsis recognized/suspect: 809 Recent Procedure: No On Antibiotic Therapy: No Respiratory Rate >20: No Heart Rate >90: No Temp<36 C (96.8 F) or >38.3 C: No SBP <90 or MAP <65 mmHG: No New Acute Mental Status Change: No Is the patient on CPAP, BIPAP,: No Physician Orders Bupropion Tablet (Wellbutrin Tablet) (12/13/24 19:00) Atorvastatin (Lipitor) (12/13/24 22:00) Clopidogrel Bisulfate (Plavix) (12/14/24 10:00) Furosemide Tablet (Lasix Tablet) (12/13/24 18:00) Gabapentin Capsule (Neurontin Capsule) (12/13/24 22:00) Levetiracetam Tablet (Keppra Tablet) (12/13/24 22:00) Ranolazine (Ranexa Er) (12/13/24 22:00) Basic Metabolic Panel (12/14/24 04:00) Glucose Blood (Accu-Chek Comfort Curve T (12/13/24 11:30) Insulin R (Human) (Insulin R) (12/13/24 11:30) Dextrose 50% Syringe (12/13/24 11:00) Admit (12/13/24 10:47) Ondansetron Hcl (Zofran) (12/13/24 11:00) Cardiac Diet-2gna,Lofat,Lochol (12/13/24 Lunch) Condition: Fair (12/13/24 10:47) Bedrest With Bathroom Privileg (12/13/24 10:47) Nitroglycerin Sublingual (Ntrostat Subli (12/13/24 11:00) Stat Ekg For Chest Pain (12/13/24 10:47) Notify Md Of Changes From Base (12/13/24 10:47) Gate Tender For 24 Hours (12/13/24 10:47) Emergency Dysrhythmia Protocol (12/13/24 10:47) Rhythm Strips Once Every Shift (12/13/24 10:47) Oxygen By Nasal Cannula (12/13/24 10:47) Morphine Sulfate Injection (12/13/24 11:15) Vital Signs Date Time Temp Pulse Resp B/P (MAP) Pulse Ox O2 Delivery O2 Flow Rate FiO2 12/13/24 16:00 59 12/13/24 12:00 98.6 67 16 134/62 (86) 97 98.6 12/13/24 12:00 98.1 65 22 134/62 (86) 95 98.1 12/13/24 11:39 98 17 145/78 12/13/24 10:00 94 16 153/70 (97) 97 Laboratory Tests Test 12/13/24 07:24 White Blood Count 8.4 10^3/uL (4.4-10.8) Medications Medications Dose Ordered Sig/Yvette Route Start Time Stop Time Status Last Admin Dose Admin Aspirin 325 mg ONCE ONCE PO 12/13/24 07:30 12/13/24 07:32 DC 12/13/24 07:44 325 MG Diagnostic Test (Pha) 1 strip ACHS 12/13/24 11:30 12/13/24 16:49 1 STRIP Enoxaparin Sodium 130 mg ONCE ONCE SC 12/13/24 07:30 12/13/24 07:32 DC 12/13/24 07:44 130 MG Morphine Sulfate 2 mg Q30M PRN IV 12/13/24 11:15 12/13/24 11:39 2 MG Nitroglycerin 0.4 mg ONCE ONCE SL 12/13/24 07:30 12/13/24 07:32 DC 12/13/24 07:42 0.4 MG Ondansetron HCl 4 mg Q4HP PRN IV 12/13/24 11:00 12/13/24 11:39 4 MG Assessment/Plan Assessment/Plan Assessment Unstable angina COPD exacerbation Elevated troponin CHF Diabetes mellitus Morbid obesity Plan Admit the patient to telemetry to the hospitalist Cardiology consultation Resume home medications Continue treatment per orders. Plan discussed with: Patient My Orders Orders - LARA BERNAL Procedure Category Date Status Time Bupropion Tablet PHA 12/13/24 In Process (Wellbutrin Tablet) 19:00 Atorvastatin (Lipitor) PHA 12/13/24 In Process 22:00 Clopidogrel Bisulfate PHA 12/14/24 In Process (Plavix) 10:00 Furosemide Tablet PHA 12/13/24 In Process (Lasix Tablet) 18:00 Gabapentin Capsule PHA 12/13/24 In Process (Neurontin Capsule) 22:00 Levetiracetam Tablet PHA 12/13/24 In Process (Keppra Tablet) 22:00 Ranolazine (Ranexa Er) PHA 12/13/24 In Process 22:00 Basic Metabolic Panel LAB 12/14/24 Verified 04:00 Glucose Blood PHA 12/13/24 In Process (Accu-Chek Comfort 11:30 Insulin R (Human) PHA 12/13/24 In Process (Insulin R) 11:30 Dextrose 50% Syringe PHA 12/13/24 In Process 11:00 Admit ADMIT 12/13/24 Transmitted 10:47 Ondansetron Hcl PHA 12/13/24 In Process (Zofran) 11:00 Cardiac DIET 12/13/24 Transmitted Diet-2gna,Lofat,Lochol Lunch Condition: Fair [facility] 12/13/24 In Process 10:47 Bedrest With Bathroom [facility] 12/13/24 In Process Privileg 10:47 Nitroglycerin [facility] 12/13/24 In Process Sublingual (Ntrostat 11:00 Stat Ekg For Chest [facility] 12/13/24 In Process Pain 10:47 Notify Of Changes [facility] 12/13/24 In Process From Base 10:47 Gate Tender For [facility] 12/13/24 In Process 24 Hours 10:47 Emergency Dysrhythmia [facility] 12/13/24 In Process Protocol 10:47 Rhythm Strips Once [facility] 12/13/24 In Process Every Shift 10:47 Oxygen By Nasal RT 12/13/24 Transmitted Cannula 10:47 Morphine Sulfate PHA 12/13/24 In Process Injection 11:15 Date of Service: Dec 13, 2024 Billing Provider: LARA BERNAL Common Visit Codes: [id number] INP/OBS CARE (HIGH) LARA BERNAL Dec 13, 2024 17:04
[2024-12-13] MEDS: FUROSEMIDE 40 MG TAB PO SCH (17:33)
[2024-12-13 22:15] VITALS: BP 134/79; PULSE 67; RESP 17; TEMP 98; O2SAT 96
[2024-12-13] MEDS: GABAPENTIN 400 MG CAP PO SCH (22:25)
[2024-12-13] MEDS: ATORVASTATIN 20 MG TAB PO SCH (22:25)
[2024-12-13] MEDS: RANOLAZINE ER 500 MG TAB PO SCH (22:26)
[2024-12-13] MEDS: levETIRAcetam 500 MG TAB PO SCH (22:26)
[2024-12-13] MEDS: MORPHINE SULFATE INJ 2 MG/ml SYRG IV ONE (23:29)
[2024-12-14] VITALS (8 sets, daily range): BP systolic 113–145; BP diastolic 52–71; PULSE 54–86; RESP 17–23; TEMP 97–98; O2SAT 94–97
[2024-12-14] MEDS ORDERED: MORPHINE SULFATE INJ 2 MG/ml SYRG ONE (05:40)
[2024-12-14 06:36] LABS: Potassium 4.9 mmol/L (3.5-5.1); Sodium 144 mmol/L (136-145)
[2024-12-14 06:37] LABS: Anion Gap 7 (5-15); Carbon Dioxide 27 mmol/L (20-31)
[2024-12-14 06:42] LABS: BUN/Creatinine Ratio 29.8 (10.0-20.0); Glucose 78 mg/dL (74-106)
[2024-12-14 06:48] LABS: Blood Urea Nitrogen 34 mg/dL (9-23); Calcium 8.6 mg/dL (8.7-10.4); Chloride 110 mmol/L (98-107)
[2024-12-14] MEDS: CLOPIDOGREL BISULFATE 75 MG TAB PO SCH (09:10)
[2024-12-14] MEDS: HYDROmorphone HCL 2 MG/ML VL/or syr IV PRN (16:08)
--- NOTE | 2024-12-14 17:50 | DVHPN2 ---
Subjective Patient is here for chest pain rule out acute VA. Changes from previous H/P or p: No Changes Objective Vitals Vital Signs Date Time Temp Pulse Resp B/P (MAP) Pulse Ox O2 Delivery O2 Flow Rate FiO2 12/14/24 16:57 97.8 86 21 140/71 (94) 95 97.8 12/14/24 08:00 Room Air* 0 21 Intake/Output Intake and Output 12/14/24 07:00 Intake Total 0 ml Balance 0 ml Intake Oral 0 ml # Voids 1 # Bowel Movements 1 Exam HEENT pupils are reactive Neck is supple CVS S1-S2 regular rate and rhythm Respiratory bilateral clear GI positive bowel sounds Extremity no edema [employer] no motor deficit Medications Current Medications Medications Dose Ordered Sig/Yvette Route Start Time Stop Time Status Last Admin Dose Admin Bupropion HCl 75 mg BID@07,19 PO 12/13/24 19:00 12/14/24 05:26 75 MG Atorvastatin Calcium 80 mg HS PO 12/13/24 22:00 12/13/24 22:25 80 MG Clopidogrel Bisulfate 75 mg DAILY PO 12/14/24 10:00 12/14/24 09:10 75 MG Furosemide 40 mg BIDD PO 12/13/24 18:00 12/14/24 05:27 40 MG Gabapentin 800 mg BID PO 12/13/24 22:00 12/14/24 09:08 800 MG Levetiracetam 750 mg BID PO 12/13/24 22:00 12/14/24 09:09 750 MG Ranolazine 500 mg BID PO 12/13/24 22:00 12/14/24 09:09 500 MG Diagnostic Test (Pha) 1 strip ACHS 12/13/24 11:30 12/14/24 11:30 1 STRIP Insulin Human Regular ACHS SC 12/13/24 11:30 Dextrose 50 ml UD PRN IV 12/13/24 11:00 Ondansetron HCl 4 mg Q4HP PRN IV 12/13/24 11:00 12/13/24 11:39 4 MG Nitroglycerin 0.4 mg Q5MINP PRN SL 12/13/24 11:00 Morphine Sulfate 2 mg Q30M PRN IV 12/13/24 11:15 12/14/24 05:44 2 MG Aspirin 81 mg DAILY PO 12/14/24 10:00 12/14/24 09:08 81 MG Hydromorphone HCl 0.5 mg Q4HPRN PRN IV 12/14/24 14:15 12/14/24 16:08 0.5 MG Laboratory Results Laboratory Tests 12/13/24 07:24 12/14/24 04:41 Chemistry Test 12/14/24 04:41 Calcium Level 8.6 mg/dL (8.7-10.4) L Urinalysis Test 12/13/24 09:27 Urine Color Light-yellow (Yellow) Urine Clarity Clear (Clear) Urine pH 5.0 (5.0-9.0) Urine Specific [place] 1.016 (1.001-1.035) Urine Protein Negative (Negative) Urine Ketones Negative (Negative) Urine Blood Negative /uL (Negative) Urine Nitrite Negative (Negative) Urine Bilirubin Negative (Negative) Urine Urobilinogen Normal mg/dL (Negative) Urine Leukocyte Esterase Negative /uL (Negative) Urine RBC <1 /hpf (0 - 3) Urine Microscopic WBC < 1 /HPF (0-3) Urine Squamous Epithelial Cells Few /hpf (<5) Urine Bacteria None seen /hpf (None Seen) Urine Glucose Normal mg/dL (Normal) Microbiology Microbiology Date/Time Source Procedure Growth Status 12/13/24 22:20 Nose MRSA Screen - Final Methicillin Resistant S.aureus Complete Assessment/Plan Assessment/Plan 69-year-old male with a known history of diabetes mellitus type 2, hypertension, known coronary artery disease, congestive heart failure, anxiety disorder presented to the hospital with chest pain found to have 1. Chest pain suspect unstable angina 2. Unstable angina 3. Elevated troponin 4. Coronary artery disease 5. Hypertension 6. Dyslipidemia 7. Moderate obesity classIII -trend troponins 2D echo cardiology consultation. Plan discussed with: Patient My Orders Orders - WESLEY ROMEO MD Procedure Category Date Status Time Apply Z-Guard ELLIE 12/14/24 In Process 10:58 * Dietary Consult CONS 12/14/24 Transmitted 13:35 Hydromorphone PHA 12/14/24 In Process Injection (Dilaudid 14:15 Date of Service: Dec 14, 2024 Billing Provider: WESLEY ROMEO MD Common Visit Codes: [id number] INP/OBS CARE(HIGH) WESLEY ROMEO MD Dec 14, 2024 17:50
--- NOTE | 2024-12-14 20:14 | DVHINCON2 ---
Date of service: Dec 14, 2024 Referring Physician Pranav Reason for Consultation Chest pain History of Present Illness This is a 69 year-old male with a PMH of CHF, Anxiety, CAD, HTN, and PR, who presents to the ED with a complaint of substernal chest pain. Patient visits the ED frequently for the same/similar complaints. Patient was recently admitted to [facility] on 12/11 and discharged on 12/12 for the same complaint. Chest x-ray shows cardiomegaly with mild pulmonary vascular congestion and probable small bilateral pleural effusions. EKG is NSR at 71. Patient was admitted to the hospital. I am asked to consult on this patient. Family History: Alcoholism G8 MOTHER, Onset:Unknown Cancer G8 SISTER (uterine cancer) Cardiovascular disease G8 SISTER Cerebrovascular accident (CVA) G8 BROTHER Chronic obstructive pulmonary disease G8 SISTER Depression G8 SISTER Diabetes mellitus G8 SISTER G8 SISTER Family history: Cardiovascular disease Family history: Depression (situation) Family history: Hypertension Family history: Hypertension Glaucoma MATERNAL GPA Sepsis Stroke Stroke Allergies: Coded Allergies: Acetaminophen (Verified Allergy, Unknown, 12/13/24) Home Meds Active Scripts Oxycodone W/ Acetaminophen (Percocet 5/325MG) 1 Tab Tb, 1 TAB PO QID, #40 TAB Prov:CYDNEY MCGARRY MD 12/10/24 Azithromycin (Azithromycin) 500 Mg Tab, 1 TAB PO DAILY, #7 TAB Prov:CYDNEY MCGARRY MD 12/10/24 Baclofen (Baclofen) 10 Mg Tab, 10 MG PO BID for 7 Days, #14 TAB 0 Refills Prov:AMANDA RODRÍGUEZ MD 12/02/24 Hydrocodone-Acetaminophen (Hydrocodone Bitartrate/AC 5-325 mg) 1 Tab Tab, 1 TAB PO TIDP PRN for 7 Days, #21 TAB 0 Refills Prov:AMANDA RODRÍGUEZ MD 12/02/24 Furosemide (Lasix) 40 Mg Tab, 40 MG PO BID for 30 Days, #60 TAB Prov:BK LAGUERRE MD 05/29/24 Ranolazine (Ranexa) 500 Mg Tab, 500 MG PO BID for 30 Days, #60 TAB Prov:JUSTIN DUARTE MD 10/22/18 Reported Medications Budesonide-Formoterol Fumarate (Budesonide/Formoterol Fum 160-4.5 Mcg/Act) 1 Aer Aer, 2 PUFF IN BID for 30 Days, #10.2 02/26/24 Midodrine HCl (Midodrine Hydrochloride) 5 Mg Tab, 1 TAB PO TID for 30 Days, #90 02/26/24 Potassium Chloride (Potassium Chloride ER) 10 Meq Tab, 1 TAB PO BID for 30 Days, #60 02/26/24 Aspirin (Aspirin Regular Strength) 325 Mg Tab, 1 TAB PO DAILY for 30 Days, #30 02/26/24 Lactulose (Lactulose) 10 Gm/15 Ml Rachna, 15 ML PO BID PRN for 15 Days, #473 02/26/24 Atorvastatin Calcium (Lipitor) 80 Mg Tab, 1 TAB PO DAILY for 30 Days, #30 02/26/24 Levetiracetam (Levetiracetam) 750 Mg Tab, 1 TAB PO BID for 30 Days, #60 02/26/24 Lidocaine (Lidocaine Topical Pain Pa) 4 % Pad, 1 PATCH TOP DAILY 06/28/23 Gabapentin (Gabapentin) 800 Mg Tab, 1 TAB PO BID for 30 Days, #60 06/28/23 Ipratropium-Albuterol (COMBIVENT RESPIMAT) Respimat Aer, 1 PUFF INH QID 05/14/23 Dapagliflozin Propanediol (Farxiga) 10 Mg Tab, 1 TAB PO DAILY for 30 Days, #30 05/14/23 Beclomethasone Dipropionate (Qvar Redihaler) 80 Mcg/Act Aer, 1 PUFF INH BID for 30 Days, #10.6 02/27/23 Silver Sulfadiazine (Silver Sulfadiazine) 1 % Cre, 1 APPLIC TOP DAILY for 30 Days, #50 02/27/23 Oxybutynin Chloride (Ditropan Xl) 5 Mg Tab, 15 MG PO DAILY for 30 Days, #30 02/27/23 Trazodone Hcl (Trazodone Hcl) 100 Mg Tab, 4 TAB PO HS for 30 Days, #120 02/27/23 Clopidogrel Bisulfate (CLOPIDOGREL) 75 Mg Tab, 1 TAB PO DAILY for 30 Days, #30 02/07/23 Pantoprazole Sodium Sesquihydr (Pantoprazole Sodium) 40 Mg Tab, 1 TAB PO QAM 02/07/23 Bupropion Hcl (Bupropion Hcl) 75 Mg Tab, 2 TAB PO DAILY for 30 Days, #60 11/10/17 Current Medications Current Medications Medications (Trade) Dose Ordered Sig/Yvette Route PRN Reason Start Time Stop Time Status Last Admin Bupropion HCl (Wellbutrin Tablet) 75 mg BID@07,19 PO 12/13/24 19:00 12/14/24 05:26 Atorvastatin Calcium (Lipitor) 80 mg HS PO 12/13/24 22:00 12/13/24 22:25 Clopidogrel Bisulfate (Plavix) 75 mg DAILY PO 12/14/24 10:00 12/14/24 09:10 Furosemide (Lasix Tablet) 40 mg BIDD PO 12/13/24 18:00 12/14/24 05:27 Gabapentin (Neurontin Capsule) 800 mg BID PO 12/13/24 22:00 12/14/24 09:08 Levetiracetam (Keppra Tablet) 750 mg BID PO 12/13/24 22:00 12/14/24 09:09 Ranolazine (Ranexa ER) 500 mg BID PO 12/13/24 22:00 12/14/24 09:09 Aspirin 81 mg DAILY PO 12/14/24 10:00 12/14/24 09:08 Review of Systems Constitutional: denies: chills, diaphoresis, fatigue, fever, malaise, sweats, weakness, others EENTM: denies: blurred vision, double vision, ear bleeding, ear discharge, ear drainage, ear pain, ear ringing, eye pain, eye redness, hearing loss, mouth pain, mouth swelling, nasal discharge, nose bleeding, nose congestion, nose pain, photophobia, tearing, throat pain, throat swelling, voice changes, others Respiratory: denies: cough, hemoptysis, orthopnea, SOB at rest, shortness of breath, SOB with excertion, stridor, wheezing, others Cardiovascular: reports: chest pain; denies: dizzy spells, diaphoresis, Dyspnea on exertion, edema, irregular heart beat, left arm pain, lightheadedness, palpitations, PND, syncope, others Gastrointestinal: denies: abdomen distended, abdominal pain, blood streaked bowels, constipated, diarrhea, dysphagia, difficulty swallowing, hematemesis, melena, nausea, poor appetite, poor fluid intake, rectal bleeding, rectal pain, vomiting, others Genitourinary: denies: burning, dysuria, flank pain, frequency, hematuria, incontinence, penile discharge, penile sore, pain, testicle pain, testicle swelling, urgency, others Neurological: denies: dizziness, fainting, headache, left sided numbness, left sided weakness, numbness, paresthesia, pre-existing deficit, right sided numbness, right sided weakness, seizure, speech problems, tingling, tremors, weakness, others Musculoskeletal: denies: back pain, gout, joint pain, joint swelling, muscle pain, muscle stiffness, neck pain, others Integumetry: denies: bruises, change in color, change in hair/nails, dryness, laceration, lesions, lumps, rash, wounds, others Allergic/Immunocompromised: denies: Difficulty Healing, Frequent Infections, Hi ves, Itching, others Hematologic/Lymphatic: denies: anemia, blood clots, easy bleeding, easy bruising, swollen glands, others Endocrine: denies: excessive hunger, excessive sweating, excessive thirst, excessive urination, flushing, intolerance to cold, intolerance to heat, unexplained weight gain, unexplained weight loss, others Psychiatric: denies: anxiety, bipolar disorder, depression, hopeless, panic disorder, schizophrenia, sleepless, suicidal, others All Other Systems: Reviewed and Negative Vital Signs Vital Signs Date Time Temp Pulse Resp B/P (MAP) Pulse Ox O2 Delivery O2 Flow Rate FiO2 12/14/24 12:34 97.3 54 21 113/65 (81) 95 97.3 12/13/24 22:15 Nasal Cannula* 2 28 Physical Exam GENERAL: Alert and oriented x 3. No acute distress. EYES: PERRL, EOMI. Anicteric. HENT: Moist mucous membranes. LUNGS: Clear to auscultation bilaterally. CARDIOVASCULAR: Regular rate and rhythm. ABDOMEN: Soft, nontender and nondistended. EXTREMITIES: No edema. NEUROLOGIC: No focal neurological deficits. SKIN: Warm, dry. Labs/Diagnostic Data Labs Test 12/14/24 12:28 12/14/24 04:41 12/13/24 12:40 12/13/24 09:27 Range/Units POC Glucose 155 H 70-106 mg/dl Sodium Level 144 136-145 mmol/L Potassium Level 4.9 3.5-5.1 mmol/L Chloride Level 110 H 98-107 mmol/L Carbon Dioxide Level 27 20-31 mmol/L Anion Gap 7 5-15 Blood Urea Nitrogen 34 H 9-23 mg/dL Creatinine 1.14 0.700-1.30 mg/dL Glomerular Filtration Rate Calc 69 >90 mL/min BUN/Creatinine Ratio 29.8 H 10.0-20.0 Serum Glucose 78 74-106 mg/dL Calcium Level 8.6 L 8.7-10.4 mg/dL Troponin I High Sensitivity 82 *H </=54 ng/L Urine Color Light-yellow Yellow Urine Clarity Clear Clear Urine pH 5.0 5.0-9.0 Urine Specific [place] 1.016 1.001-1.035 Urine Protein Negative Negative Urine Ketones Negative Negative Urine Blood Negative Negative /uL Urine Nitrite Negative Negative Urine Bilirubin Negative Negative Urine Urobilinogen Normal Negative mg/dL Urine Leukocyte Esterase Negative Negative /uL Urine RBC <1 0 - 3 /hpf Urine Microscopic WBC < 1 0-3 /HPF Urine Squamous Epithelial Cells Few <5 /hpf Urine Bacteria None seen None Seen /hpf Urine Glucose Normal Normal mg/dL Test 12/13/24 07:24 Range/Units White Blood Count 8.4 4.4-10.8 10^3/uL Red Blood Count 3.91 L 4.5-5.90 10^6/uL Hemoglobin 10.5 L 13.5-17.5 g/dL Hematocrit 32.8 L 41.0-53.0 % Mean Corpuscular Volume 83.8 # 80.0-100.0 fL Mean Corpuscular Hemoglobin 26.8 L 28.0-32.0 pg Mean Corpuscular Hemoglobin Concent 32.0 32.0-36.0 g/dL Red Cell Distribution Width 17.4 H 11.8-14.3 % Platelet Count 326 140-450 10^3/uL Mean Platelet Volume 9.0 6.9-10.8 fL Neutrophils (%) (Auto) 58.4 37.0-80.0 % Lymphocytes (%) (Auto) 29.7 10.0-50.0 % Monocytes (%) (Auto) 10.5 0.0-12.0 % Eosinophils (%) (Auto) 1.2 0.0-7.0 % Basophils (%) (Auto) 0.2 0.0-2.0 % Neutrophils # (Auto) 4.9 1.6-8.6 10 ^3/uL Lymphocytes # (Auto) 2.5 0.4-5.4 10 ^3/uL Monocytes # (Auto) 0.9 0-1.3 10 ^3/uL Eosinophils # (Auto) 0.1 0-0.8 10 ^3/uL Basophils # (Auto) 0 0-0.2 10 ^3/uL Nucleated Red Blood Cells 0.1 % B-Type Natriuretic Peptide 66.54 0-100 pg/mL Assessment Chest pain suspect unstable angina. Unstable angina. Elevated troponin. Coronary artery disease. Hypertension. Dyslipidemia. Moderate obesity class III. Plan/Recommendation I agree with your ongoing assessment and care of plan. Aspirin, Lipitor, Plavix. Diuretics with Lasix. Morphine for pain management. Nitro SL. Additional plan as per the hospital course. A total of 45 minutes was spent reviewing the patient record, examining the patient, making a diagnostic and therapeutic plan, discussing this plan with medical personnel, following up on diagnostic studies and following the patient for clinical stability excluding any and all procedures. At least 50% of this time was spent in direct, [id number] contact. Plan discussed with: Patient ROHINI ABARCA MD Dec 14, 2024 13:35
[2024-12-15] VITALS (10 sets, daily range): BP systolic 121–144; BP diastolic 68–81; PULSE 56–68; RESP 18–23; TEMP 97.7–98.5; O2SAT 91–96
--- NOTE | 2024-12-15 08:30 | MEDREC ---
[facility] ASP Intervention Section I [facility] ASP Intervention: Review courses of therapy (MRSA SCREEN POSITIVE CONSIDER ADDING MUPIROCIN 2% OINTMENT 1 APPLICATION IN EACH NOSTRIL BID FOR 5 DAYS ) YONY ANTOINE PHARMACIST Dec 15, 2024 08:30
[2024-12-15] MEDS ORDERED: MUPI2OIN2 EX (15:22)
--- NOTE | 2024-12-15 15:24 | DVHDS2 ---
Discharge Summary Date of Admission Dec 13, 2024 at 10:47 Date of Discharge: Dec 15, 2024 Labs/Diagnostic Data: Laboratory Results Test 12/15/24 11:29 12/14/24 04:41 12/13/24 12:40 12/13/24 09:27 POC Glucose 117 mg/dl (70-106) Sodium Level 144 mmol/L (136-145) Potassium Level 4.9 mmol/L (3.5-5.1) Chloride Level 110 mmol/L (98-107) Carbon Dioxide Level 27 mmol/L (20-31) Anion Gap 7 (5-15) Blood Urea Nitrogen 34 mg/dL (9-23) Creatinine 1.14 mg/dL (0.700-1.30) Glomerular Filtration Rate Calc 69 mL/min (>90) BUN/Creatinine Ratio 29.8 (10.0-20.0) Serum Glucose 78 mg/dL (74-106) Calcium Level 8.6 mg/dL (8.7-10.4) Troponin I High Sensitivity 82 ng/L (</=54) Urine Color Light-yellow (Yellow) Urine Clarity Clear (Clear) Urine pH 5.0 (5.0-9.0) Urine Specific [place] 1.016 (1.001-1.035) Urine Protein Negative (Negative) Urine Ketones Negative (Negative) Urine Blood Negative /uL (Negative) Urine Nitrite Negative (Negative) Urine Bilirubin Negative (Negative) Urine Urobilinogen Normal mg/dL (Negative) Urine Leukocyte Esterase Negative /uL (Negative) Urine RBC <1 /hpf (0 - 3) Urine Microscopic WBC < 1 /HPF (0-3) Urine Squamous Epithelial Cells Few /hpf (<5) Urine Bacteria None seen /hpf (None Seen) Urine Glucose Normal mg/dL (Normal) Test 12/13/24 07:24 White Blood Count 8.4 10^3/uL (4.4-10.8) Red Blood Count 3.91 10^6/uL (4.5-5.90) Hemoglobin 10.5 g/dL (13.5-17.5) Hematocrit 32.8 % (41.0-53.0) Mean Corpuscular Volume 83.8 fL (80.0-100.0) Mean Corpuscular Hemoglobin 26.8 pg (28.0-32.0) Mean Corpuscular Hemoglobin Concent 32.0 g/dL (32.0-36.0) Red Cell Distribution Width 17.4 % (11.8-14.3) Platelet Count 326 10^3/uL (140-450) Mean Platelet Volume 9.0 fL (6.9-10.8) Neutrophils (%) (Auto) 58.4 % (37.0-80.0) Lymphocytes (%) (Auto) 29.7 % (10.0-50.0) Monocytes (%) (Auto) 10.5 % (0.0-12.0) Eosinophils (%) (Auto) 1.2 % (0.0-7.0) Basophils (%) (Auto) 0.2 % (0.0-2.0) Neutrophils # (Auto) 4.9 10 ^3/uL (1.6-8.6) Lymphocytes # (Auto) 2.5 10 ^3/uL (0.4-5.4) Monocytes # (Auto) 0.9 10 ^3/uL (0-1.3) Eosinophils # (Auto) 0.1 10 ^3/uL (0-0.8) Basophils # (Auto) 0 10 ^3/uL (0-0.2) Nucleated Red Blood Cells 0.1 % B-Type Natriuretic Peptide 66.54 pg/mL (0-100) Other Laboratory Tests 12/14/24 04:41 12/13/24 07:24 Brief Hx & Hospital Course: 69-year-old male with a known history of diabetes mellitus type 2, hypertension, known coronary artery disease, congestive heart failure, anxiety disorder presented to the hospital with chest pain found to have mildly elevated troponin. Patient does have known history of coronary artery disease status post five stents in the past. Patient was recently hospitalized for the same at [facility]. Patient is cleared by Cardiology to be discharged. Patient is being discharged under stable condition. Condition at Discharge: Stable Final Diagnosis/Problems List 69-year-old male with a known history of diabetes mellitus type 2, hypertension, known coronary artery disease, congestive heart failure, anxiety disorder presented to the hospital with chest pain found to have 1. Chest pain with a mildly elevated troponin 2. Unstable angina 3. Congestive heart failure currently not in decompensation 4. Coronary artery disease status post PCI with five stents 5. Hypertension 6. Dyslipidemia 7. Moderate obesity classII 8. Questionable seizure disorder, on Keppra Discharge Disposition: Home SNF Discharge Will this Physician continue t: No Discharge Instruct/Medications Diet: Cardiac 2g Na,low cholest Diet comment: 1800 ADA diet. Activity: See Comment Activity comment: No driving while on seizure medications. Follow Up/Referral: Please follow up with the PCP and Education material in 1-2 weeks Medications: Resume home medications. New Medications: Mupirocin (Pseudomonas Fluores (Mupirocin) 2 % Oin 2 % EX BID for 5 Days, #1 OIN Continued Medications: Aspirin (Aspirin Regular Strength) 325 Mg Tab 1 TAB PO DAILY for 30 Days, #30 Atorvastatin Calcium (Lipitor) 80 Mg Tab 1 TAB PO DAILY for 30 Days, #30 Azithromycin (Azithromycin) 500 Mg Tab 1 TAB PO DAILY, #7 TAB Baclofen (Baclofen) 10 Mg Tab 10 MG PO BID for 7 Days, #14 TAB 0 Refills Beclomethasone Dipropionate (Qvar Redihaler) 80 Mcg/Act Aer 1 PUFF INH BID for 30 Days, #10.6 Budesonide-Formoterol Fumarate (Budesonide/Formoterol Fum 160-4.5 Mcg/Act) 1 Aer Aer 2 PUFF IN BID for 30 Days, #10.2 Bupropion Hcl (Bupropion Hcl) 75 Mg Tab 2 TAB PO DAILY for 30 Days, #60 Clopidogrel Bisulfate (Clopidogrel) 75 Mg Tab 1 TAB PO DAILY for 30 Days, #30 Dapagliflozin Propanediol (Farxiga) 10 Mg Tab 1 TAB PO DAILY for 30 Days, #30 Furosemide (Lasix) 40 Mg Tab 40 MG PO BID for 30 Days, #60 TAB Gabapentin (Gabapentin) 800 Mg Tab 1 TAB PO BID for 30 Days, #60 Hydrocodone-Acetaminophen (Hydrocodone Bitartrate/AC 5-325 mg) 1 Tab Tab 1 TAB PO TIDP PRN for 7 Days, #21 TAB 0 Refills Ipratropium-Albuterol (Combivent Respimat) Respimat Aer 1 PUFF INH QID Lactulose (Lactulose) 10 Gm/15 Ml Rachna 15 ML PO BID PRN for 15 Days, #473 Levetiracetam (Levetiracetam) 750 Mg Tab 1 TAB PO BID for 30 Days, #60 Lidocaine (Lidocaine Topical Pain Pa) 4 % Pad 1 PATCH TOP DAILY Midodrine HCl (Midodrine Hydrochloride) 5 Mg Tab 1 TAB PO TID for 30 Days, #90 Oxybutynin Chloride (Ditropan Xl) 5 Mg Tab 15 MG PO DAILY for 30 Days, #30 Oxycodone W/ Acetaminophen (Percocet 5/325MG) 1 Tab Tb 1 TAB PO QID, #40 TAB Pantoprazole Sodium Sesquihydr (Pantoprazole Sodium) 40 Mg Tab 1 TAB PO QAM Potassium Chloride (Potassium Chloride ER) 10 Meq Tab 1 TAB PO BID for 30 Days, #60 Ranolazine (Ranexa) 500 Mg Tab 500 MG PO BID for 30 Days, #60 TAB Silver Sulfadiazine (Silver Sulfadiazine) 1 % Cre 1 APPLIC TOP DAILY for 30 Days, #50 Trazodone Hcl (Trazodone Hcl) 100 Mg Tab 4 TAB PO HS for 30 Days, #120 Scheduled Aspirin (Aspirin Regular Strength), 1 TAB PO DAILY, (Reported) Atorvastatin Calcium (Lipitor), 1 TAB PO DAILY, (Reported) Azithromycin (Azithromycin), 1 TAB PO DAILY Baclofen (Baclofen), 10 MG PO BID Beclomethasone Dipropionate (Qvar Redihaler), 1 PUFF INH BID, (Reported) Budesonide-Formoterol Fumarate (Budesonide/Formoterol Fum 160-4.5 Mcg/Act), 2 PUFF IN BID, (Reported) Bupropion Hcl (Bupropion Hcl), 2 TAB PO DAILY, (Reported) Clopidogrel Bisulfate (Clopidogrel), 1 TAB PO DAILY, (Reported) Dapagliflozin Propanediol (Farxiga), 1 TAB PO DAILY, (Reported) Furosemide (Lasix), 40 MG PO BID Gabapentin (Gabapentin), 1 TAB PO BID, (Reported) Ipratropium-Albuterol (Combivent Respimat), 1 PUFF INH QID, (Reported) Lactulose (Lactulose), 15 ML PO BID PRN, (Reported) Levetiracetam (Levetiracetam), 1 TAB PO BID, (Reported) Lidocaine (Lidocaine Topical Pain Pa), 1 PATCH TOP DAILY, (Reported) Midodrine HCl (Midodrine Hydrochloride), 1 TAB PO TID, (Reported) Mupirocin (Pseudomonas Fluores (Mupirocin), 2 % EX BID Oxybutynin Chloride (Ditropan Xl), 15 MG PO DAILY, (Reported) Oxycodone W/ Acetaminophen (Percocet 5/325MG), 1 TAB PO QID Pantoprazole Sodium Sesquihydr (Pantoprazole Sodium), 1 TAB PO QAM, (Reported) Potassium Chloride (Potassium Chloride ER), 1 TAB PO BID, (Reported) Ranolazine (Ranexa), 500 MG PO BID Silver Sulfadiazine (Silver Sulfadiazine), 1 APPLIC TOP DAILY, (Reported) Trazodone Hcl (Trazodone Hcl), 4 TAB PO HS, (Reported) Scheduled PRN Hydrocodone-Acetaminophen (Hydrocodone Bitartrate/AC 5-325 mg), 1 TAB PO TIDP PRN Discharge Statement: "Patient was advised to return to the ER or call 911 if any headaches, dizziness, shortness of breath, chest pain, abdominal pain, bleeding, fevers, or worsening of medical condition. Patient was counseled about treatment plan, medications, possible side effects, patientverbalized understanding. All questions were answered to the best of my ability. This discharge took greater then 30 minutes in planning, reviewing documentation, counseling the patient, and discussing with other team members." ASSESSMENT ASSESSMENT Assessment 69-year-old male with a known history of diabetes mellitus type 2, hypertension, known coronary artery disease, congestive heart failure, anxiety disorder presented to the hospital with chest pain found to have 1. Chest pain with a mildly elevated troponin 2. Unstable angina 3. Congestive heart failure currently not in decompensation 4. Coronary artery disease status post PCI with five stents 5. Hypertension 6. Dyslipidemia 7. Moderate obesity classII 8. Questionable seizure disorder, on [facility] Date of Service: Dec 15, 2024 Billing Provider: WESLEY ROMEO MD Common Visit Codes: 38782-NTC/OBS DISCH DAY >30min WESLEY ROMEO MD Dec 15, 2024 15:24
--- NOTE | 2024-12-15 20:00 | DVHPN2 ---
Progress Note - Dictate Date Seen: Dec 15, 2024 Medical Necessity Reason Pt with a Central, PICC or Fol: No Subjective Patient was seen and evaluated in follow up. Patient is c/o chest discomfort. BS are in the 120s. MRSA returned positive Telemetry reviewed. vital signs Vital Sign Date Time Temp Pulse Resp B/P (MAP) Pulse Ox O2 Delivery O2 Flow Rate FiO2 12/15/24 19:54 Room Air* 0 21 12/15/24 17:00 98.5 65 20 127/72 (90) 95 98.5 Total Intake and Output 12/14/24 12/14/24 12/15/24 15:00 23:00 07:00 Intake Total 450 ml 400 ml Output Total 1350 ml Balance 450 ml -950 ml medications Current Medications Medications Dose Ordered Sig/Yvette Route Start Time Stop Time Status Last Admin Dose Admin Bupropion HCl 75 mg BID@07,19 PO 12/13/24 19:00 12/15/24 18:54 75 MG Atorvastatin Calcium 80 mg HS PO 12/13/24 22:00 12/14/24 21:50 80 MG Clopidogrel Bisulfate 75 mg DAILY PO 12/14/24 10:00 12/15/24 08:25 75 MG Furosemide 40 mg BIDD PO 12/13/24 18:00 12/15/24 06:26 40 MG Gabapentin 800 mg BID PO 12/13/24 22:00 12/15/24 08:24 800 MG Levetiracetam 750 mg BID PO 12/13/24 22:00 12/15/24 08:23 750 MG Ranolazine 500 mg BID PO 12/13/24 22:00 12/15/24 08:24 500 MG Diagnostic Test (Pha) 1 strip ACHS 12/13/24 11:30 12/15/24 17:00 1 STRIP Insulin Human Regular ACHS SC 12/13/24 11:30 Dextrose 50 ml UD PRN IV 12/13/24 11:00 Ondansetron HCl 4 mg Q4HP PRN IV 12/13/24 11:00 12/13/24 11:39 4 MG Nitroglycerin 0.4 mg Q5MINP PRN SL 12/13/24 11:00 Morphine Sulfate 2 mg Q30M PRN IV 12/13/24 11:15 12/14/24 05:44 2 MG Aspirin 81 mg DAILY PO 12/14/24 10:00 12/15/24 08:23 81 MG Hydromorphone HCl 0.5 mg Q4HPRN PRN IV 12/14/24 14:15 12/15/24 10:51 0.5 MG objective GENERAL: Alert and oriented x 3. No acute distress. EYES: PERRL, EOMI. Anicteric. HENT: Moist mucous membranes. LUNGS: Clear to auscultation bilaterally. CARDIOVASCULAR: Regular rate and rhythm. ABDOMEN: Soft, nontender and nondistended. EXTREMITIES: No edema. NEUROLOGIC: No focal neurological deficits. SKIN: Warm, dry. laboratory and microbiology Laboratory Tests 12/14/24 04:41 12/13/24 07:24 Test 12/14/24 04:41 Range/Units Serum Glucose 78 74-106 mg/dL Problem List Chest pain. Unstable angina. Elevated troponin. Coronary artery disease. Hypertension. Dyslipidemia. Moderate obesity class III. Assessment/Plan Continued all current supportive medical care. Aspirin, Lipitor, Plavix. Diuretics with Lasix. Morphine for pain management. Nitro SL. Additional plan as per the hospital course. Dietary Evaluation Review Recommendations by RD: Dietary education by RD Comments: 1) Lower 60g CCHO cardiac to 45g CCHO cardiac diet 2) Refer to outpatient RD/CDCES for weight management 3) Follow-up with cardiology and pulmonology 4) Continue to monitor I&O, labs, and skin integrity Expected Outcomes/Goals: 1) appetite and labs to improve 2) gradual wt loss 3) f/u in 3-5 days Plan discussed with: Patient ROHINI ABARCA MD Dec 15, 2024 20:00
== END 2024-12-15 23:30 | disposition home or self-care (01) | DRG 303 ==
LOC: EDUNIT# 04:01 → EDBD 04:01 → ER 04:01 → OVERFLOW 10:47 → TELE-CENTR 22:10
PROVIDERS: ADMIT Internal Medicine; ATTEND Internal Medicine
DX: I25.110 Atherosclerotic heart disease of native coronary artery with unstable angina pectoris (principal); I13.0 Hypertensive heart and chronic kidney disease with heart failure and stage 1 through stage 4 chronic kidney disease, or unspecified chronic kidney disease; I24.89 Other forms of acute ischemic heart disease; J44.1 Chronic obstructive pulmonary disease with (acute) exacerbation; I50.9 Heart failure, unspecified; E11.22 Type 2 diabetes mellitus with diabetic chronic kidney disease; E78.5 Hyperlipidemia, unspecified; E66.813 Obesity, class 3; N18.9 Chronic kidney disease, unspecified; K21.9 Gastro-esophageal reflux disease without esophagitis; G40.909 Epilepsy, unspecified, not intractable, without status epilepticus; F32.A Depression, unspecified; F41.9 Anxiety disorder, unspecified; Z95.5 Presence of coronary angioplasty implant and graft; Z88.6 Allergy status to analgesic agent; I25.2 Old myocardial infarction; Z86.73 Personal history of transient ischemic attack (TIA), and cerebral infarction without residual deficits; Z81.8 Family history of other mental and behavioral disorders; Z82.3 Family history of stroke; Z82.49 Family history of ischemic heart disease and other diseases of the circulatory system; Z82.5 Family history of asthma and other chronic lower respiratory diseases; Z83.3 Family history of diabetes mellitus; Z90.49 Acquired absence of other specified parts of digestive tract; Z68.39 Body mass index [BMI] 39.0-39.9, adult; Z79.4 Long term (current) use of insulin; Z87.440 Personal history of urinary (tract) infections; Z79.82 Long term (current) use of aspirin
CPT/HCPCS: 36415; 71045; 80048; 81001; 82962; 83880; 84484; 85025; 87081; 93005; 99291; 99292; G0378; J1815; J2405

== ENCOUNTER 2024-12-23 17:07 | Inpatient (IN) | payer BC, OTHER ==
[~2024-12-23] VITALS: Ht 180.3 cm; Wt 124.0 kg
[~2024-12-23 17:07] MED LIST changes: +MUPI2OIN2 EX
--- NOTE | 2024-12-23 17:23 | ED.PDOC ---
HPI Comments HPI: 69 y/o M, HILARY, presents to the ED for CC of chest pain. 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 Per EMS, patient is on continuous oxygen at home at 2L via [place] however, on scene patient was not wearing his oxygen and saturation read at 80%. In route to the ED patient was placed on oxygen at 2L, and saturation improved to 91-92%. Patient further comments, on associated symptoms of shortness of deepak ath. Patient denies numbness, tingling, headache, potophobia, nausea, or vomiting. Initial Vitals BP: HR: RR: O2 Sat: Temp: Past Medical history: HTN, DM, HLD, COPD, CHF, NV, ANXIETY, ANGINA, TIA, UTI's, GERD, seizure Past Surgical history: APPENDECTOMY, CHOLECYSTECTOMY, PTCA Medications: PLAVIX Social History: Denies smoking, ETOH, and drug use. Allergies: NKDA bisi: cp/sob afib HPI: Poor Historian. REVIEW OF SYSTEMS: CONSTITUTIONAL: Denies acute: fever, diaphoresis, chills, HEAD: Denies acute: headache, photophobia Eyes: Denies acute: Double vision, vision loss, eye pain, eye discharge. EARS: Denies acute: tinnitus, hearing loss, ear discharge, ear pain, THROAT: Denies acute: sore throat, swelling, difficulty swallowing , pain with swallowing, change in voice. NECK: Denies acute: neck pain, neck swelling, stiff neck. HEART: Denies acute : palpitations, LUNGS: Denies acute: , wheezing, cough, hemoptysis ABDOMEN: Denies acute: abdominal pain, Nausea, Vomiting, diarrhea, melena , hematemesis, hematochezia SKIN: Denies acute: rash, redness, lesions, itchiness. EXTREMITIES: Denies acute: calf pain, numbness, tingling, weakness, denies pain in extremity. Denies acute: Low back pain. Neuro: Denies acute: focal neurological deficit, motor or sensory focal neurological deficit, tremors, seizure like activity, confusion, dizziness, change in mental status, loss of bowel or bladder function, cauda equina like symptoms. : Denies acute: dysuria, hematuria, flank pain, increase in urinary frequency. PSYCH: Denies acute: hallucination, suicidal ideation, homicidal ideation. PHYSICAL EXAM: General: -----moderate--acute distress, awake and alert. Head: normocephalic, atraumatic. No raccoon's eyes, no torres sign. Neck: supple, trachea is midline, no swelling. Throat: Normal phonation. Eyes:, no erythema, no purulent discharge, no proptosis, no icterus. Heart: Irregular rate and rhythm consistent with AFib with RVR, no significant murmur appreciated. Lungs: no apparent respiratory distress, Able to speak in full sentences. No wheezing, no rhonchi, no crackles. No stridors Clear to auscultation bilaterally. Abdomen: non tender to palpation, non distended, soft, no guarding, no rebound, + bowel sounds. Obese Neuro: Awake, Alert, oriented to name, self, situation, follows commands GCS=15. Speech is normal. Skin: no petechia, no purpura, no cyanosis, non-pale, not jaundice. Lower extremities: --2/4 b/l - Pitting edema no deformity, no focal swelling, no calf TTP. Makes eye contact. moves all four extremities. Face: no apparent facial droop. ED COURSE: DISCLAIMER: This medical document was created using an electronic medical record system with voice recognition software and computerized dictation system. Although this document has been carefully reviewed, there might still be some phonetic and typographical errors. Occasional wrong-word or "sound-alike" substitutions may have occurred due to the inherent limitations of voice recognition software. These areas are purely typographical due to imperfections of the software programs and do not reflect any compromise in the patient's medical care. Please read the chart carefully and recognize, using context, where these substitutions have occurred. Chief Complaint: Chest Pain Time Seen by MD: 17:10 Primary Care Provider: marie Reviewed Notes: Nurses Notes, Medications, Allergies Allergies: Coded Allergies: Acetaminophen (Verified Allergy, Unknown, 12/13/24) Home Meds Active Scripts Mupirocin (Pseudomonas Fluores (Mupirocin) 2 % Oin, 2 % EX BID for 5 Days, #1 OI N Prov:WESLEY ROMEO MD 12/15/24 Oxycodone W/ Acetaminophen (Percocet 5/325MG) 1 Tab Tb, 1 TAB PO QID, #40 TAB Prov:CYDNEY MCGARRY MD 12/10/24 Azithromycin (Azithromycin) 500 Mg Tab, 1 TAB PO DAILY, #7 TAB Prov:CYDNEY MCGARRY MD 12/10/24 Baclofen (Baclofen) 10 Mg Tab, 10 MG PO BID for 7 Days, #14 TAB 0 Refills Prov:AMANDA RODRÍGUEZ MD 12/02/24 Hydrocodone-Acetaminophen (Hydrocodone Bitartrate/AC 5-325 mg) 1 Tab Tab, 1 TAB PO TIDP PRN for 7 Days, #21 TAB 0 Refills Prov:AMANDA RODRÍGUEZ MD 12/02/24 Furosemide (Lasix) 40 Mg Tab, 40 MG PO BID for 30 Days, #60 TAB Prov:BK LAGUERRE MD 05/29/24 Ranolazine (Ranexa) 500 Mg Tab, 500 MG PO BID for 30 Days, #60 TAB Prov:JUSTIN DUARTE MD 10/22/18 Reported Medications Budesonide-Formoterol Fumarate (Budesonide/Formoterol Fum 160-4.5 Mcg/Act) 1 Aer Aer, 2 PUFF IN BID for 30 Days, #10.2 02/26/24 Midodrine HCl (Midodrine Hydrochloride) 5 Mg Tab, 1 TAB PO TID for 30 Days, #90 02/26/24 Potassium Chloride (Potassium Chloride ER) 10 Meq Tab, 1 TAB PO BID for 30 Days, #60 02/26/24 Aspirin (Aspirin Regular Strength) 325 Mg Tab, 1 TAB PO DAILY for 30 Days, #30 02/26/24 Lactulose (Lactulose) 10 Gm/15 Ml Rachna, 15 ML PO BID PRN for 15 Days, #473 02/26/24 Atorvastatin Calcium (Lipitor) 80 Mg Tab, 1 TAB PO DAILY for 30 Days, #30 02/26/24 Levetiracetam (Levetiracetam) 750 Mg Tab, 1 TAB PO BID for 30 Days, #60 02/26/24 Lidocaine (Lidocaine Topical Pain Pa) 4 % Pad, 1 PATCH TOP DAILY 06/28/23 Gabapentin (Gabapentin) 800 Mg Tab, 1 TAB PO BID for 30 Days, #60 06/28/23 Ipratropium-Albuterol (COMBIVENT RESPIMAT) Respimat Aer, 1 PUFF INH QID 05/14/23 Dapagliflozin Propanediol (Farxiga) 10 Mg Tab, 1 TAB PO DAILY for 30 Days, #30 05/14/23 Beclomethasone Dipropionate (Qvar Redihaler) 80 Mcg/Act Aer, 1 PUFF INH BID for 30 Days, #10.6 02/27/23 Silver Sulfadiazine (Silver Sulfadiazine) 1 % Cre, 1 APPLIC TOP DAILY for 30 Days, #50 02/27/23 Oxybutynin Chloride (Ditropan Xl) 5 Mg Tab, 15 MG PO DAILY for 30 Days, #30 02/27/23 Trazodone Hcl (Trazodone Hcl) 100 Mg Tab, 4 TAB PO HS for 30 Days, #120 02/27/23 Clopidogrel Bisulfate (CLOPIDOGREL) 75 Mg Tab, 1 TAB PO DAILY for 30 Days, #30 02/07/23 Pantoprazole Sodium Sesquihydr (Pantoprazole Sodium) 40 Mg Tab, 1 TAB PO QAM 02/07/23 Bupropion Hcl (Bupropion Hcl) 75 Mg Tab, 2 TAB PO DAILY for 30 Days, #60 11/10/17 Information Source: Patient Mode of Arrival: EMS Prehospital treatment: None Location: Substernal Onset: At Rest Cardiac Risk Factors: Hyperlipidemia, HTN, Diabetes PE Risk Factors: None History of: NV Modifying Factors: Nothing Associated Signs and Symptoms: SOB EKG EKG : Pulse Rate (adult): 80 [place]: Normal Cardiac Rhythm: NSR Block: None Hypertrophy: None ST: Normal Was a procedure done? Was a procedure done?: No CP Differential Dx Differential Diagnosis: Angina, Anxiety / Panic Attack Differential Diagnosis: Chest Wall Pain, Costochondritis, Esophageal reflux/spasm, Gastritis, Other (Ddx include but not limitied to gastritis, musculoskeletal pain, radiculopathy, atypical chest pain, dissection, aneurysm, ACS, unstable angina, hiatal hernia, GERD, anxiety, costochondritis, PE, pneumothroax, neoplasm, cardiac ischemia, drug abuse, anemia.) X-Ray, Labs, Meds, VS Vital Signs Date Time Temp Pulse Resp B/P (MAP) Pulse Ox O2 Delivery O2 Flow Rate FiO2 11/4/25 19:30 97.9 88 13 113/62 (79) 100 97.9 12/23/24 18:20 73 12/23/24 18:00 79 28 122/48 (72) 95 12/23/24 17:29 99.0 90 18 128/69 (88) 96 99.0 12/23/24 17:29 90 18 96 Nasal Cannula* 2 28 12/23/24 17:23 80 12/23/24 17:14 82 12/23/24 17:08 98.5 70 18 136/63 91 98.5 Lab Test 12/23/24 18:53 12/23/24 17:23 Range/Units Troponin I High Sensitivity 107 *H 105 *H </=54 ng/L White Blood Count 8.0 4.4-10.8 10^3/uL Red Blood Count 3.59 L 4.5-5.90 10^6/uL Hemoglobin 9.8 L 13.5-17.5 g/dL Hematocrit 29.8 L 41.0-53.0 % Mean Corpuscular Volume 83.1 80.0-100.0 fL Mean Corpuscular Hemoglobin 27.3 L 28.0-32.0 pg Mean Corpuscular Hemoglobin Concent 32.9 32.0-36.0 g/dL Red Cell Distribution Width 18.2 H 11.8-14.3 % Platelet Count 205 140-450 10^3/uL Mean Platelet Volume 8.8 6.9-10.8 fL Neutrophils (%) (Auto) 69.4 37.0-80.0 % Lymphocytes (%) (Auto) 20.1 10.0-50.0 % Monocytes (%) (Auto) 8.8 0.0-12.0 % Eosinophils (%) (Auto) 1.1 0.0-7.0 % Basophils (%) (Auto) 0.6 0.0-2.0 % Neutrophils # (Auto) 5.5 1.6-8.6 10 ^3/uL Lymphocytes # (Auto) 1.6 0.4-5.4 10 ^3/uL Monocytes # (Auto) 0.7 0-1.3 10 ^3/uL Eosinophils # (Auto) 0.1 0-0.8 10 ^3/uL Basophils # (Auto) 0 0-0.2 10 ^3/uL Nucleated Red Blood Cells 0.0 % Sodium Level 143 136-145 mmol/L Potassium Level 3.7 3.5-5.1 mmol/L Chloride Level 108 H 98-107 mmol/L Carbon Dioxide Level 23 20-31 mmol/L Anion Gap 12 5-15 Blood Urea Nitrogen 17 9-23 mg/dL Creatinine 1.03 0.700-1.30 mg/dL Glomerular Filtration Rate Calc 78 >90 mL/min BUN/Creatinine Ratio 16.5 10.0-20.0 Serum Glucose 74 74-106 mg/dL Calcium Level 8.4 L 8.7-10.4 mg/dL Magnesium Level 1.7 1.6-2.6 mg/dL Total Bilirubin 0.4 0.2-1.0 mg/dL Aspartate Amino Transferase (AST) 29 13-40 U/L Alanine Aminotransferase (ALT) 26 7-40 U/L Alkaline Phosphatase 59 46-116 U/L B-Type Natriuretic Peptide 117.72 0-100 pg/mL Total Protein 6.2 5.7-8.2 g/dL Albumin 2.8 L 3.2-4.8 g/dL [place] [id number] Ph: [phone] DIAGNOSTIC IMAGING Diagnostic Imaging Report : [id number] Signed PATIENT: NAVID SANCHEZ ACCT: [id number] UNIT: [id number] : 1955 LOC: ER ROOM / BED: / AGE / SEX: 69 / M ADM STATUS: REG ER SERVICE 1708 ORDERING PHYSICIAN: FLETCHER FARRELL DO PROCEDURE(s): CXRP - CHEST PORTABLE REASON: cp/sob afib ORDER NUMBER(s): [id number], ACCESSION NUMBER(s): [id number] CHEST RADIOGRAPH Indication: cp/sob afib Technique: Single frontal view of the chest was obtained Comparison: XY CHEST XRAY 1 VIEW on DOS: 12/13/24, XR CHEST 1 VIEW on DOS: 1 , XY CHEST PORTABLE on DOS: 12/07/24 FINDINGS: Lines and Tubes: None Lungs: Slightly improved pulmonary vascular congestion with persistent left lower lobe consolidation and pleural effusion. Pleura: No effusion. No pneumothorax. Cardiomediastinal contours: Unimproved cardiomegaly Bones: No acute osseous abnormality. IMPRESSION: 1. Slightly improved pulmonary vascular congestion. 2. Persistent consolidation left base with small left pleural effusion unimproved. ATED BY: SANCHEZ GARCÍA Jr., DO DICTATED DATE/TIME: 12/23/241751 SIGNED BY: SANCHEZ GARCÍA Jr., SIGNED DATE/TIME: 12/23/241751 CC: Time of 1ST Reevaluation: 17:40 Reevaluation 1ST: Unchanged Patient Education/Counseling: Diagnosis, Treatment Family Education/Counseling: Other Comments MDM: patient presented with the above HPI.--chest pain----workup was initiated. patient was found with the above mentioned diagnosis. the following medications were ordered: please refer to order lists of meds and tests obtained by myself Dr. Farrell. Patient ED course and VS have been stabilized. Patient has been reassessed in the ED and remained in a stable condition. Pertinent incidental findings were discussed with the patient and/or family. Patient/family voices understanding and is agreeable with plan. Patient has been observed in the ED adequate length of time to insure improvement/stability. Escalation of care considered: Consideration of escalation to observation or admission Patient was found with a slightly elevated troponin and severe heart score Patient was ADMITTED to the medicine team for further evaluation and treatment of their presentation. All the reports of any imaging studies that were ordered by myself were reviewed by myself. SEPSIS Sepsis Screen Physician Orders Optician Apprentice Dispensing (12/23/24 ) Urinalysis (12/23/24 17:08) Chest Portable (12/23/24 17:08) Troponin-I Hs (12/23/24 20:08) Electrocardigram (12/23/24 20:08) Vital Signs Date Time Temp Pulse Resp B/P (MAP) Pulse Ox O2 Delivery O2 Flow Rate FiO2 12/23/24 19:30 97.9 88 13 113/62 (79) 100 97.9 12/23/24 18:20 73 12/23/24 18:00 79 28 122/48 (72) 95 12/23/24 17:29 99.0 90 18 128/69 (88) 96 99.0 12/23/24 17:29 90 18 96 Nasal Cannula* 2 28 12/23/24 17:23 80 12/23/24 17:14 82 12/23/24 17:08 98.5 70 18 136/63 91 98.5 Laboratory Tests Test 12/23/24 17:23 White Blood Count 8.0 10^3/uL (4.4-10.8) Departure 1 Departure Time of Disposition: 18:23 Impression: Primary Impression: Chest pain Additional Impressions: Elevated troponin Lung consolidation Anemia Disposition: ADMITTED INPATIENT Admit to: Tele Condition: Guarded Discharged With: Self Critical Care Note Critical Care Time?: Yes (45 min-critical care time only) Heart Score Heart Score: Heart Score Response (Comments) Value History Highly Suspicious [address]-Deviation 2 Age >65 2 Risk Factors >3 or Hx ASHD 2 Troponin 1-2 x's Normal limit 1 Total 9 I personally scribed for FLETCHER FARRELL DO ([email or web address]) on 12/23/24 at 17:23. Electronically submitted by Kassie Meredith ([email or web address]). I personally scribed for FLETCHER FARRELL DO ([email or web address]) on 12/23/24 at 19:00. Electronically submitted by Kassie Meredith ([email or web address]). FLETCHER FARRELL DO Dec 23, 2024 17:23
--- NOTE | 2024-12-23 17:24 | ECG ---
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
[2024-12-23 17:29] VITALS: PULSE 90; RESP 18; O2SAT 96
[2024-12-23 17:49] LABS: Hemoglobin 9.8 g/dL (13.5-17.5); Nucleated Red Blood Cells % 0.0 %
[2024-12-23 17:51] LABS: Hematocrit 29.8 % (41.0-53.0); Mean Corpuscular Hemoglobin 27.3 pg (28.0-32.0); Mean Corpuscular Volume 83.1 fL (80.0-100.0)
[2024-12-23 17:54] LABS: Alanine Aminotransferase 26 U/L (7-40); Alkaline Phosphatase 59 U/L (46-116); Anion Gap 12 (5-15); BUN/Creatinine Ratio 16.5 (10.0-20.0); Blood Urea Nitrogen 17 mg/dL (9-23); Carbon Dioxide 23 mmol/L (20-31); Glucose 74 mg/dL (74-106); Magnesium 1.7 mg/dL (1.6-2.6); Potassium 3.7 mmol/L (3.5-5.1); Sodium 143 mmol/L (136-145); Total Protein 6.2 g/dL (5.7-8.2)
[2024-12-23 17:55] LABS: Bilirubin, Total 0.4 mg/dL (0.2-1.0)
--- NOTE | 2024-12-23 17:55 | DVH ---
CHEST RADIOGRAPH Indication: cp/sob afib Technique: Single frontal view of the chest was obtained Comparison: XY CHEST XRAY 1 VIEW on DOS: 12/13/24, XR CHEST 1 VIEW on DOS: 12/11/24, XY CHEST PORTABLE on DOS: 12/07/24 FINDINGS: Lines and Tubes: None Lungs: Slightly improved pulmonary vascular congestion with persistent left lower lobe consolidation and pleural effusion. Pleura: No effusion. No pneumothorax. Cardiomediastinal contours: Unimproved cardiomegaly Bones: No acute osseous abnormality. IMPRESSION: 1. Slightly improved pulmonary vascular congestion. 2. Persistent consolidation left base with small left pleural effusion unimproved.
[2024-12-23 17:59] LABS: Albumin 2.8 g/dL (3.2-4.8); Calcium 8.4 mg/dL (8.7-10.4); Chloride 108 mmol/L (98-107)
--- NOTE | 2024-12-23 18:44 | ECG ---
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
[2024-12-23] MEDS ORDERED: ACETAMINOPHEN 325 MG TAB PO PRN (20:00)
[2024-12-23] MEDS ORDERED: NITROGLYCERIN 0.4 MG SL TAB SL PRN (20:00)
[2024-12-23] MEDS ORDERED: ONDANSETRON HCL 4 MG/2 ML VIAL IV PRN (20:00)
[2024-12-23 20:05] VITALS: PULSE 88; RESP 13; O2SAT 100
[2024-12-23] MEDS: MORPHINE SULFATE INJ 2 MG/ml SYRG IV PRN (21:13)
[2024-12-23 21:35] LABS: Urine Protein, UAD TRACE (Negative)
--- NOTE | 2024-12-23 21:40 | DVHHP2 ---
History of Present Illness Reason for Visit: Chest pain History of Present Illness 69-year-old male presents for evaluation of chest pain. Patient reports a one day history of substernal pressure-like chest pain that radiates to his left side as well. Reports shortness for breath with nausea. He states the symptoms have been intermittent. Currently rates the pain at 5/10 intensity. Past Medical History Dyslipidemia, diabetes mellitus, hypertension, COPD, CHF, mi, TIA, angina,. Past Surgical History Cholecystectomy, PTCA, appendectomy Family History Noncontributory Smoke: No ALCOHOL: none Drugs: None Lives: with Family Review of Systems Review of Systems Review of systems are currently negative otherwise addressed in HPI. Allergies: Coded Allergies: Acetaminophen (Verified Allergy, Unknown, 12/13/24) Medications Current Medications Medications Dose Ordered Sig/Yvette Route Start Time Stop Time Status Last Admin Dose Admin Nitroglycerin 0.4 mg Q5MINP PRN SL 12/23/24 20:00 Morphine Sulfate 2 mg Q30M PRN IV 12/23/24 20:00 12/23/24 21:13 2 MG Aspirin 162 mg DAILY PO 12/24/24 10:00 Atorvastatin Calcium 80 mg HS PO 12/23/24 22:00 Clopidogrel Bisulfate 75 mg DAILY PO 12/24/24 10:00 Furosemide 40 mg BIDD PO 12/24/24 06:00 Gabapentin 800 mg BID PO 12/23/24 22:00 Levetiracetam 750 mg BID PO 12/23/24 22:00 Ranolazine 500 mg BID PO 12/23/24 22:00 Ondansetron HCl 4 mg Q4HP PRN IV 12/23/24 20:00 Acetaminophen 650 mg Q6HP PRN PO 12/23/24 20:00 UNV Exam Vital Signs Vital Signs Date Time Temp Pulse Resp B/P (MAP) Pulse Ox O2 Delivery O2 Flow Rate FiO2 12/23/24 21:13 73 18 113/68 12/23/24 21:00 98 12/23/24 20:05 Nasal Cannula* 2 28 12/23/24 19:30 97.9 97.9 Exam Gen: 69-year-old male in mild distress. Skin: Warm, dry, normal color and texture, no rash. HEENT: Normocephalic atraumatic, mucous membranes moist and pink. Neck: Cervical and supraclavicular nodes normal without enlargement, trachea is midline, thyroid gland is normal without masses. Pulmonary: Clear to auscultation and percussion bilaterally. Cardiac: Regular rate and rhythm. No murmur Abdomen: Soft, nontender, nondistended, bowel sounds present all 4 quadrants, no guarding, no rigidity, no organomegaly. Extremities: No cyanosis, clubbing, no edema Neuro: Cranial nerves II through XII grossly intact, normal affect and speech, no focal motor deficits. Labs/Xrays ORDERING PHYSICIAN: ARON PERLA MD PROCEDURE(s): ECIDC - ECHO 2D MODE CARDIAC DOP REASON: To rule out endocarditis ORDER NUMBER(s): [id number], ACCESSION NUMBER(s): [id number] APPROVED REPORT EXAM: LIMITED Two-dimensional and color doppler echocardiogram. Blood Pressure: 144/71 mmHg INDICATION LIMITED FOR ENDOCARDITIS RISK FACTORS Obesity: Height: 5'9, Weight: 282 DIMENSIONS EF (%) 60.0 (55-70%) Rt. Atrium (1.9-4.0cm) Asc. Aorta cm Mitral Valve Mitral Mitral Stenosis E/A ratio 0.0 2D MVA cm2 Other Information Quality : Technically Limited Rhythm : Technically limited study due to LIMITED FOR ENDOCARDITIS, patient position.body habitus. pt refused to turn on left side or lay down. Conclusion Technically good study. Sinus bradycardia. Aortic root enlargement. With severe concentric LVH. The mitral valve appears to be structurally normal. There is thickening of the aortic leaflets however there is appears to be adequate excursion. Left ventricular function appears preserved. EF is about 60% with normal RV function. There appears to be mild aortic insufficiency. No intracardiac masses thrombi or vegetations discernible. SIGNED BY: TEMO ORTIZ Sr., MD SIGNED DATE/TIME: 09/13/241941 CC: ORDERING PHYSICIAN: FLETCHER FARRELL DO PROCEDURE(s): CXRP - CHEST PORTABLE REASON: cp/sob afib ORDER NUMBER(s): [id number], ACCESSION NUMBER(s): [id number] CHEST RADIOGRAPH Indication: cp/sob afib Technique: Single frontal view of the chest was obtained Comparison: XY CHEST XRAY 1 VIEW on DOS: 12/13/24, XR CHEST 1 VIEW on DOS: 12/11/24, XY CHEST PORTABLE on DOS: 12/07/24 FINDINGS: Lines and Tubes: None Lungs: Slightly improved pulmonary vascular congestion with persistent left lower lobe consolidation and pleural effusion. Pleura: No effusion. No pneumothorax. Cardiomediastinal contours: Unimproved cardiomegaly Bones: No acute osseous abnormality. IMPRESSION: 1. Slightly improved pulmonary vascular congestion. 2. Persistent consolidation left base with small left pleural effusion unimproved. ATED BY: SANCHEZ GARCÍA Jr., DO DICTATED DATE/TIME: 12/23/241751 SIGNED BY: SANCHEZ GARCÍA Jr., SIGNED DATE/TIME: 12/23/241751 CC: Labs Test 12/23/24 20:33 12/23/24 20:31 12/23/24 17:23 Range/Units Troponin I High Sensitivity 96 *H </=54 ng/L White Blood Count 8.0 4.4-10.8 10^3/uL Red Blood Count 3.59 L 4.5-5.90 10^6/uL Hemoglobin 9.8 L 13.5-17.5 g/dL Hematocrit 29.8 L 41.0-53.0 % Mean Corpuscular Volume 83.1 80.0-100.0 fL Mean Corpuscular Hemoglobin 27.3 L 28.0-32.0 pg Mean Corpuscular Hemoglobin Concent 32.9 32.0-36.0 g/dL Red Cell Distribution Width 18.2 H 11.8-14.3 % Platelet Count 205 140-450 10^3/uL Mean Platelet Volume 8.8 6.9-10.8 fL Neutrophils (%) (Auto) 69.4 37.0-80.0 % Lymphocytes (%) (Auto) 20.1 10.0-50.0 % Monocytes (%) (Auto) 8.8 0.0-12.0 % Eosinophils (%) (Auto) 1.1 0.0-7.0 % Basophils (%) (Auto) 0.6 0.0-2.0 % Neutrophils # (Auto) 5.5 1.6-8.6 10 ^3/uL Lymphocytes # (Auto) 1.6 0.4-5.4 10 ^3/uL Monocytes # (Auto) 0.7 0-1.3 10 ^3/uL Eosinophils # (Auto) 0.1 0-0.8 10 ^3/uL Basophils # (Auto) 0 0-0.2 10 ^3/uL Nucleated Red Blood Cells 0.0 % Sodium Level 143 136-145 mmol/L Potassium Level 3.7 3.5-5.1 mmol/L Chloride Level 108 H 98-107 mmol/L Carbon Dioxide Level 23 20-31 mmol/L Anion Gap 12 5-15 Blood Urea Nitrogen 17 9-23 mg/dL Creatinine 1.03 0.700-1.30 mg/dL Glomerular Filtration Rate Calc 78 >90 mL/min BUN/Creatinine Ratio 16.5 10.0-20.0 Serum Glucose 74 74-106 mg/dL Calcium Level 8.4 L 8.7-10.4 mg/dL Magnesium Level 1.7 1.6-2.6 mg/dL Total Bilirubin 0.4 0.2-1.0 mg/dL Aspartate Amino Transferase (AST) 29 13-40 U/L Alanine Aminotransferase (ALT) 26 7-40 U/L Alkaline Phosphatase 59 46-116 U/L B-Type Natriuretic Peptide 117.72 0-100 pg/mL Total Protein 6.2 5.7-8.2 g/dL Albumin 2.8 L 3.2-4.8 g/dL SEPSIS Sepsis Screen Date sepsis recognized/suspect: Dec 23, 2024 Time Sepsis recognized/suspect: 1999 Recent Procedure: No On Antibiotic Therapy: No Respiratory Rate >20: No Heart Rate >90: No Temp<36 C (96.8 F) or >38.3 C: No SBP <90 or MAP <65 mmHG: No New Acute Mental Status Change: No Is the patient on CPAP, BIPAP,: No Physician Orders Road Crossing Guard (12/23/24 ) Urinalysis (12/23/24 17:08) Chest Portable (12/23/24 17:08) Electrocardigram (12/23/24 20:08) Admit (12/23/24 19:48) Nitroglycerin Sublingual (Ntrostat Subli (12/23/24 20:00) Morphine Sulfate Injection (12/23/24 20:00) Stat Ekg For Chest Pain (12/23/24 19:48) Notify Of Changes From Base (12/23/24 19:48) Chain Sales Consultant For 24 Hours (12/23/24 19:48) Emergency Dysrhythmia Protocol (12/23/24 19:48) Rhythm Strips Once Every Shift (12/23/24 19:48) Oxygen By Nasal Cannula (12/23/24 19:48) Aspirin Tablet (12/24/24 10:00) Atorvastatin (Lipitor) (12/23/24 22:00) Clopidogrel Bisulfate (Plavix) (12/24/24 10:00) Furosemide Tablet (Lasix Tablet) (12/24/24 06:00) Gabapentin Capsule (Neurontin Capsule) (12/23/24 22:00) Levetiracetam Tablet (Keppra Tablet) (12/23/24 22:00) Ranolazine (Ranexa Er) (12/23/24 22:00) * Cardiology Consult (12/23/24 20:00) Basic Metabolic Panel (12/24/24 04:00) Ondansetron Hcl (Zofran) (12/23/24 20:00) Cardiac Diet-2gna,Lofat,Lochol (12/24/24 Breakfast) Condition: Fair (12/23/24 20:00) Bedrest With Bathroom Privileg (12/23/24 20:00) Vital Signs Date Time Temp Pulse Resp B/P (MAP) Pulse Ox O2 Delivery O2 Flow Rate FiO2 12/23/24 21:13 73 18 113/68 12/23/24 21:00 89 18 113/68 (83) 98 12/23/24 20:15 95 12/23/24 20:05 88 13 100 Nasal Cannula* 2 28 12/23/24 20:00 72 12/23/24 19:30 97.9 88 13 113/62 (79) 100 97.9 12/23/24 18:20 73 12/23/24 18:00 79 28 122/48 (72) 95 12/23/24 17:29 99.0 90 18 128/69 (88) 96 99.0 12/23/24 17:29 90 18 96 Nasal Cannula* 2 28 12/23/24 17:23 80 12/23/24 17:14 82 12/23/24 17:08 98.5 70 18 136/63 91 98.5 Laboratory Tests Test 12/23/24 17:23 White Blood Count 8.0 10^3/uL (4.4-10.8) Medications Medications Dose Ordered Sig/Yvette Route Start Time Stop Time Status Last Admin Dose Admin Morphine Sulfate 2 mg Q30M PRN IV 12/23/24 20:00 12/23/24 21:13 2 MG Assessment/Plan Assessment/Plan Assessment Chest pain rule out ACS Elevated troponin Diabetes mellitus History of AR ? Pneumonia Plan Admit the patient to Med surge to the hospitalist Cardiology consultation Resume home medications Azithromycin Med nebs Continue treatment per orders. Plan discussed with: Patient My Orders Orders - LARA BERNAL Procedure Category Date Status Time Admit ADMIT 12/23/24 Transmitted 19:48 Nitroglycerin PHA 12/23/24 In Process Sublingual (Ntrostat 20:00 Morphine Sulfate PHA 12/23/24 In Process Injection 20:00 Stat Ekg For Chest ELLIE 12/23/24 In Process Pain 19:48 Notify Md Of Changes [facility] 12/23/24 In Process From Base 19:48 Chain Sales Consultant For [facility] 12/23/24 In Process 24 Hours 19:48 Emergency Dysrhythmia ELLIE 12/23/24 In Process Protocol 19:48 Rhythm Strips Once [facility] 12/23/24 In Process Every Shift 19:48 Oxygen By Nasal RT 12/23/24 Transmitted Cannula 19:48 Aspirin Tablet PHA 12/24/24 In Process 10:00 Atorvastatin (Lipitor) PHA 12/23/24 In Process 22:00 Clopidogrel Bisulfate PHA 12/24/24 In Process (Plavix) 10:00 Furosemide Tablet PHA 12/24/24 In Process (Lasix Tablet) 06:00 Gabapentin Capsule PHA 12/23/24 In Process (Neurontin Capsule) 22:00 Levetiracetam Tablet PHA 12/23/24 In Process (Keppra Tablet) 22:00 Ranolazine (Ranexa Er) PHA 12/23/24 In Process 22:00 * Cardiology Consult CONS 12/23/24 Transmitted 20:00 Basic Metabolic Panel LAB 12/24/24 Verified 04:00 Ondansetron Hcl PHA 12/23/24 In Process (Zofran) 20:00 Cardiac DIET 12/24/24 Transmitted Diet-2gna,Lofat,Lochol Breakfast Condition: Fair ELLIE 12/23/24 In Process 20:00 Bedrest With Bathroom ELLIE 12/23/24 In Process Privileg 20:00 Date of Service: Dec 23, 2024 Billing Provider: LARA BERNAL Common Visit Codes: [id number] INP/OBS CARE (HIGH) LARA BERNAL Dec 23, 2024 21:40
[2024-12-23] MEDS ORDERED: ALBUTEROL SULF 2.5 MG/0.5ML(0.5%) NEB SOLN NEB PRN (21:45)
[2024-12-23 21:56] VITALS: O2SAT 100
[2024-12-23 21:57] VITALS: BP 113/68; PULSE 73; RESP 18; TEMP 97.9; O2SAT 100
[2024-12-23 21:58] VITALS: BP 135/58; PULSE 71; RESP 15; TEMP 97.4; O2SAT 93
[2024-12-23] MEDS: RANOLAZINE ER 500 MG TAB PO SCH (23:08)
[2024-12-23] MEDS: levETIRAcetam 500 MG TAB PO SCH (23:08)
[2024-12-23] MEDS: AZITHROMYCIN 500MG/ 250ML 250 ML IV ONE (23:08)
[2024-12-23] MEDS: ATORVASTATIN 20 MG TAB PO SCH (23:09)
[2024-12-23] MEDS: GABAPENTIN 400 MG CAP PO SCH (23:09)
--- NOTE | 2024-12-23 23:12 | ECG ---
[facility], [place] Test Date: 2024-12-23 Test Time: 20:15:42 Pat Name: NAVID SANCHEZ Department: ED Room: 0203T Gender: M Forestry Technician: FRANKLIN : 1955 Requested By: FLETCHER FARRELL Order Number: [id number] Reading MD: Measurements Intervals [place] Rate: 95 P: 24 NC: 156 QRS: -50 QRSD: 109 T: 159 QT: 383 QTc: 482 Interpretive Statements Sinus rhythm Supraventricular bigeminy Left anterior fascicular block Abnormal R-wave progression, late transition Borderline repolarization abnormality Please click the below link to view image of tracing.
[2024-12-23 23:19] VITALS: BP 135/58; PULSE 61; RESP 15; TEMP 97.4; O2SAT 93
[2024-12-24] VITALS (9 sets, daily range): BP systolic 97–135; BP diastolic 52–68; PULSE 19–65; RESP 17–20; TEMP 97.5–98.8; O2SAT 90–98
[2024-12-24] MEDS: FUROSEMIDE 40 MG TAB PO SCH (05:57)
[2024-12-24 06:30] LABS: Potassium 3.8 mmol/L (3.5-5.1); Sodium 142 mmol/L (136-145)
[2024-12-24 06:32] LABS: Anion Gap 6 (5-15); Carbon Dioxide 25 mmol/L (20-31)
[2024-12-24 06:37] LABS: BUN/Creatinine Ratio 13.1 (10.0-20.0); Blood Urea Nitrogen 13 mg/dL (9-23); Glucose 76 mg/dL (74-106)
[2024-12-24 06:38] LABS: Calcium 8.4 mg/dL (8.7-10.4); Chloride 111 mmol/L (98-107)
[2024-12-24] MEDS: CLOPIDOGREL BISULFATE 75 MG TAB PO SCH (10:00)
[2024-12-24] MEDS: AZITHROMYCIN 500MG/ 250ML 250 ML IV SCH (10:00)
[2024-12-24] MEDS ORDERED: HYDROmorphone HCL 2 MG/ML VL/or syr IV PRN (10:45)
--- NOTE | 2024-12-24 11:41 | DVHPN2 ---
Reviewed: H&P Changes from previous H/P or p: No Changes General: Per HPI Objective Vitals Vital Signs Date Time Temp Pulse Resp B/P (MAP) Pulse Ox O2 Delivery O2 Flow Rate FiO2 12/24/24 09:00 98.8 65 19 135/68 (90) 90 98.8 12/23/24 21:58 Nasal Cannula* 2 28 Intake/Output Intake and Output 12/24/24 07:00 Intake Total 200 ml Output Total 350 ml Balance -150 ml Intake Oral 200 ml Output Urine Total 350 ml # Voids 2 Exam Gen: 69-year-old male in mild distress. Skin: Warm, dry, normal color and texture, no rash. HEENT: Normocephalic atraumatic, mucous membranes moist and pink. Neck: Cervical and supraclavicular nodes normal without enlargement, trachea is midline, thyroid gland is normal without masses. Pulmonary: Clear to auscultation and percussion bilaterally. Cardiac: Regular rate and rhythm. No murmur Abdomen: Soft, nontender, nondistended, bowel sounds present all 4 quadrants, no guarding, no rigidity, no organomegaly. Extremities: No cyanosis, clubbing, no edema Neuro: Cranial nerves II through XII grossly intact, normal affect and speech, no focal motor deficits. Medications Current Medications Medications Dose Ordered Sig/Yvette Route Start Time Stop Time Status Last Admin Dose Admin Nitroglycerin 0.4 mg Q5MINP PRN SL 12/23/24 20:00 Aspirin 162 mg DAILY PO 12/24/24 10:00 Atorvastatin Calcium 80 mg HS PO 12/23/24 22:00 12/23/24 23:09 80 MG Clopidogrel Bisulfate 75 mg DAILY PO 12/24/24 10:00 Furosemide 40 mg BIDD PO 12/24/24 06:00 12/24/24 05:57 40 MG Gabapentin 800 mg BID PO 12/23/24 22:00 12/23/24 23:09 800 MG Levetiracetam 750 mg BID PO 12/23/24 22:00 12/23/24 23:08 750 MG Ranolazine 500 mg BID PO 12/23/24 22:00 12/23/24 23:08 500 MG Ondansetron HCl 4 mg Q4HP PRN IV 12/23/24 20:00 Acetaminophen 650 mg Q6HP PRN PO 12/23/24 20:00 UNV Albuterol 2.5 mg Q6HPRN PRN NEB 12/23/24 21:45 Azithromycin 250 ml @ 125 mls/hr DAILY IV 12/24/24 10:00 Acetaminophen/ Hydrocodone Bitart 1 tab Q6HPRN PRN PO 12/24/24 10:45 UNV Hydromorphone HCl 0.5 mg Q4HPRN PRN IV 12/24/24 10:45 UNV Laboratory Results Laboratory Tests 12/23/24 17:23 12/24/24 05:44 Chemistry Test 12/23/24 17:23 12/24/24 05:44 Albumin 2.8 g/dL (3.2-4.8) L Calcium Level 8.4 mg/dL (8.7-10.4) L 8.4 mg/dL (8.7-10.4) L Magnesium Level 1.7 mg/dL (1.6-2.6) Total Protein 6.2 g/dL (5.7-8.2) Cardiac Markers Test 12/23/24 17:23 B-Type Natriuretic Peptide 117.72 pg/mL (0-100) LFT Test 12/23/24 17:23 Alanine Aminotransferase (ALT) 26 U/L (7-40) Alkaline Phosphatase 59 U/L (46-116) Aspartate Amino Transferase (AST) 29 U/L (13-40) Total Bilirubin 0.4 mg/dL (0.2-1.0) Urinalysis Test 12/23/24 20:31 Urine Color Yellow (Yellow) Urine Clarity Clear (Clear) Urine pH 5.0 (5.0-9.0) Urine Specific Neal 1.020 (1.001-1.035) Urine Protein Trace (Negative) H Urine Ketones 1+ (Negative) H Urine Blood Negative /uL (Negative) Urine Nitrite Negative (Negative) Urine Bilirubin Negative (Negative) Urine Urobilinogen Normal mg/dL (Negative) Urine Leukocyte Esterase Negative /uL (Negative) Urine RBC <1 /hpf (0 - 3) Urine Microscopic WBC 1 /HPF (0-3) Urine Squamous Epithelial Cells None seen /hpf (<5) Urine Bacteria None seen /hpf (None Seen) Urine Glucose Normal mg/dL (Normal) Labs and/or images reviewed: Labs reviewed by me, Image(s) reviewed by me Assessment/Plan Assessment/Plan 69-year-old male presents for evaluation of chest pain. Patient reports a one day history of substernal pressure-like chest pain that radiates to his left side as well. Reports shortness for breath with nausea. He states the symptoms have been intermittent. Currently rates the pain at 5/10 intensity. Past Medical History Dyslipidemia, diabetes mellitus, hypertension, COPD, CHF, mi, TIA, angina,. 12/24: 69-year-old male, history of NV, history diabetes, multiple admissions. Chest pain. Presenting with chest pain. Troponins positive just like last visit. Patient has high tolerance for pain meds, we will continue IV and p.o. for severe and moderate. Patient has had recent echo on August 2024 with LVH.. Given patient's significant disease and history and troponins positive cardiology consulted. We will follow up with Cardiology, appreciate recommendations from Cardiology. - Remains bed-bound, on isolation, continues to complain of chest pain. Obese. Strength lower extremity is 3-5. We will continue current management plan.. Chest pain, rule out ACS, unstable angina possible NSTEMI, rule out type 1 Diabetes mellitus History of [place] ? Pneumonia Azithromycin Telemetry Cardiology consult Continue home meds Med nebs prn Tele Full code Plan discussed with: Patient My Orders Orders - AMANDA RODRÍGUEZ MD Procedure Category Date Status Time Hydrocodone-Acet PHA 12/24/24 Logged 10/325mg Tab ([place] 10:45 Hydromorphone PHA 12/24/24 Logged Injection (Dilaudid 10:45 Date of Service: Dec 24, 2024 Billing Provider: AMANDA RODRÍGUEZ MD Common Visit Codes: [id number] INP/OBS CARE(HIGH) AMANDA RODRÍGUEZ MD Dec 24, 2024 11:41
[2024-12-24] MEDS: HYDROMORPHONE HCL 1 MG/ML INJ IV PRN (20:45)
[2024-12-25] VITALS (9 sets, daily range): BP systolic 105–122; BP diastolic 47–66; PULSE 53–66; RESP 16–20; TEMP 36.7; O2SAT 90–98
--- NOTE | 2024-12-25 00:16 | DVHINCON2 ---
Date of service: Dec 24, 2024 Referring Physician Manoj Reason for Consultation Chest pain History of Present Illness This is a 69 year old male with a PMH of HTN, DM, HLD, COPD, CHF, DE, anxiety, TIA, UTI's, GERD, seizure who was brought in by EMS with complaint of chest pain. 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 Per EMS, patient is on continuous oxygen at home at 2L via NC however, on scene patient was not wearing his oxygen and saturation read at 80%. In route to the ED patient was placed on oxygen at 2L, and saturation improved to 91-92%. Patient further comments, on associated symptoms of shortness of breath. HGB 9.8, HCT 29.8, TROP 105 >107 > 96. Chest x- ray shows slightly improved pulmonary vascular congestion. Persistent consolidation left base with small left pleural effusion unimproved. Patient was admitted to the hospital. I am asked to consult on this patient. Family History: Alcoholism G8 MOTHER, Onset:Unknown Cancer G8 SISTER (uterine cancer) Cardiovascular disease G8 SISTER Cerebrovascular accident (CVA) G8 BROTHER Chronic obstructive pulmonary disease G8 SISTER Depression G8 SISTER Diabetes mellitus G8 SISTER G8 SISTER Family history: Cardiovascular disease Family history: Depression (situation) Family history: Hypertension Family history: Hypertension Glaucoma MATERNAL GPA Sepsis Stroke Stroke Allergies: Coded Allergies: Acetaminophen (Verified Allergy, Unknown, 12/13/24) Home Meds Active Scripts Mupirocin (Pseudomonas Fluores (Mupirocin) 2 % Oin, 2 % EX BID for 5 Days, #1 OIN Prov:WESLEY ROMEO MD 12/15/24 Oxycodone W/ Acetaminophen (Percocet 5/325MG) 1 Tab Tb, 1 TAB PO QID, #40 TAB Prov:CYDNEY MCGARRY MD 12/10/24 Azithromycin (Azithromycin) 500 Mg Tab, 1 TAB PO DAILY, #7 TAB Prov:CYDNEY MCGARRY MD 12/10/24 Baclofen (Baclofen) 10 Mg Tab, 10 MG PO BID for 7 Days, #14 TAB 0 Refills Prov:AMANDA RODRÍGUEZ MD 12/02/24 Hydrocodone-Acetaminophen (Hydrocodone Bitartrate/AC 5-325 mg) 1 Tab Tab, 1 TAB PO TIDP PRN for 7 Days, #21 TAB 0 Refills Prov:AMANDA RODRÍGUEZ MD 12/02/24 Furosemide (Lasix) 40 Mg Tab, 40 MG PO BID for 30 Days, #60 TAB Prov:BK LAGUERRE MD 05/29/24 Ranolazine (Ranexa) 500 Mg Tab, 500 MG PO BID for 30 Days, #60 TAB Prov:JUSTIN DUARTE MD 10/22/18 Reported Medications Budesonide-Formoterol Fumarate (Budesonide/Formoterol Fum 160-4.5 Mcg/Act) 1 Aer Aer, 2 PUFF IN BID for 30 Days, #10.2 02/26/24 Midodrine HCl (Midodrine Hydrochloride) 5 Mg Tab, 1 TAB PO TID for 30 Days, #90 02/26/24 Potassium Chloride (Potassium Chloride ER) 10 Meq Tab, 1 TAB PO BID for 30 Days, #60 02/26/24 Aspirin (Aspirin Regular Strength) 325 Mg Tab, 1 TAB PO DAILY for 30 Days, #30 02/26/24 Lactulose (Lactulose) 10 Gm/15 Ml Rachna, 15 ML PO BID PRN for 15 Days, #473 02/26/24 Atorvastatin Calcium (Lipitor) 80 Mg Tab, 1 TAB PO DAILY for 30 Days, #30 02/26/24 Levetiracetam (Levetiracetam) 750 Mg Tab, 1 TAB PO BID for 30 Days, #60 02/26/24 Lidocaine (Lidocaine Topical Pain Pa) 4 % Pad, 1 PATCH TOP DAILY 06/28/23 Gabapentin (Gabapentin) 800 Mg Tab, 1 TAB PO BID for 30 Days, #60 06/28/23 Ipratropium-Albuterol (COMBIVENT RESPIMAT) Respimat Aer, 1 PUFF INH QID 05/14/23 Dapagliflozin Propanediol (Farxiga) 10 Mg Tab, 1 TAB PO DAILY for 30 Days, #30 05/14/23 Beclomethasone Dipropionate (Qvar Redihaler) 80 Mcg/Act Aer, 1 PUFF INH BID for 30 Days, #10.6 02/27/23 Silver Sulfadiazine (Silver Sulfadiazine) 1 % Cre, 1 APPLIC TOP DAILY for 30 Days, #50 02/27/23 Oxybutynin Chloride (Ditropan Xl) 5 Mg Tab, 15 MG PO DAILY for 30 Days, #30 02/27/23 Trazodone Hcl (Trazodone Hcl) 100 Mg Tab, 4 TAB PO HS for 30 Days, #120 02/27/23 Clopidogrel Bisulfate (CLOPIDOGREL) 75 Mg Tab, 1 TAB PO DAILY for 30 Days, #30 02/07/23 Pantoprazole Sodium Sesquihydr (Pantoprazole Sodium) 40 Mg Tab, 1 TAB PO QAM 02/07/23 Bupropion Hcl (Bupropion Hcl) 75 Mg Tab, 2 TAB PO DAILY for 30 Days, #60 11/10/17 Current Medications Current Medications Medications (Trade) Dose Ordered Sig/Yvette Route PRN Reason Start Time Stop Time Status Last Admin Nitroglycerin (Ntrostat Sublingual) 0.4 mg Q5MINP PRN SL FOR CHEST PAIN 12/23/24 20:00 Morphine Sulfate 2 mg Q30M PRN IV FOR CHEST PAIN 12/23/24 20:00 12/24/24 10:49 DC 12/24/24 03:58 Aspirin 162 mg DAILY PO 12/24/24 10:00 12/24/24 10:00 Atorvastatin Calcium (Lipitor) 80 mg HS PO 12/23/24 22:00 12/23/24 23:09 Clopidogrel Bisulfate (Plavix) 75 mg DAILY PO 12/24/24 10:00 12/24/24 10:00 Furosemide (Lasix Tablet) 40 mg BIDD PO 12/24/24 06:00 12/24/24 05:57 Gabapentin (Neurontin Capsule) 800 mg BID PO 12/23/24 22:00 12/24/24 10:00 Levetiracetam (Keppra Tablet) 750 mg BID PO 12/23/24 22:00 12/24/24 10:00 Ranolazine (Ranexa ER) 500 mg BID PO 12/23/24 22:00 12/24/24 10:00 Ondansetron HCl (Zofran) 4 mg Q4HP PRN IV NAUSEA / VOMITING 12/23/24 20:00 Acetaminophen (Tylenol Tablet) 650 mg Q6HP PRN PO PAIN SCALE 1-3 OR TEMP>100.4 12/23/24 20:00 UNV Albuterol (Ventolin Medneb) 2.5 mg Q6HPRN PRN NEB SHORTNESS OF BREATH 12/23/24 21:45 Azithromycin 250 ml @ 125 mls/hr DAILY IV 12/24/24 10:00 12/24/24 10:00 Oxycodone HCl (OxyCONTIN ER Tablet) 10 mg Q6HPRN PRN PO MODERATE PAIN (4-6 PAIN SCALE) 12/24/24 12:00 Hydromorphone HCl (Dilaudid Injection) 0.5 mg Q4HPRN PRN IV SEVERE PAIN (7-10 PAIN SCALE) 12/24/24 10:45 12/24/24 11:48 DC Hydromorphone HCl (Dilaudid Injection) 0.5 mg Q4HPRN PRN IV SEVERE PAIN (7-10 PAIN SCALE) 12/24/24 12:00 Review of Systems CONSTITUTIONAL: Denies acute: fever, diaphoresis, chills, HEAD: Denies acute: headache, photophobia Eyes: Denies acute: Double vision, vision loss, eye pain, eye discharge. EARS: Denies acute: tinnitus, hearing loss, ear discharge, ear pain, THROAT: Denies acute: sore throat, swelling, difficulty swallowing , pain with swallowing, change in voice. NECK: Denies acute: neck pain, neck swelling, stiff neck. HEART: Denies acute : palpitations, LUNGS: Denies acute: , wheezing, cough, hemoptysis ABDOMEN: Denies acute: abdominal pain, Nausea, Vomiting, diarrhea, melena , hematemesis, hematochezia SKIN: Denies acute: rash, redness, lesions, itchiness. EXTREMITIES: Denies acute: calf pain, numbness, tingling, weakness, denies pain in extremity. Denies acute: Low back pain. Neuro: Denies acute: focal neurological deficit, motor or sensory focal neurological deficit, tremors, seizure like activity, confusion, dizziness, change in mental status, loss of bowel or bladder function, cauda equina like symptoms. : Denies acute: dysuria, hematuria, flank pain, increase in urinary frequency. PSYCH: Denies acute: hallucination, suicidal ideation, homicidal ideation. Vital Signs Vital Signs Date Time Temp Pulse Resp B/P (MAP) Pulse Ox O2 Delivery O2 Flow Rate FiO2 12/24/24 09:00 98.8 65 19 135/68 (90) 90 98.8 12/23/24 21:58 Nasal Cannula* 2 28 Physical Exam GENERAL: Alert and oriented x 3. No acute distress. EYES: PERRL, EOMI. Anicteric. HENT: Moist mucous membranes. LUNGS: Clear to auscultation bilaterally. CARDIOVASCULAR: Irregular rate and rhythm. ABDOMEN: Soft, nontender and nondistended. EXTREMITIES: No edema. NEUROLOGIC: No focal neurological deficits. SKIN: Warm, dry. Labs/Diagnostic Data Labs Test 12/24/24 05:44 12/23/24 20:33 12/23/24 20:31 12/23/24 17:23 Range/Units Sodium Level 142 136-145 mmol/L Potassium Level 3.8 3.5-5.1 mmol/L Chloride Level 111 H 98-107 mmol/L Carbon Dioxide Level 25 20-31 mmol/L Anion Gap 6 5-15 Blood Urea Nitrogen 13 9-23 mg/dL Creatinine 0.99 0.700-1.30 mg/dL Glomerular Filtration Rate Calc 82 >90 mL/min BUN/Creatinine Ratio 13.1 10.0-20.0 Serum Glucose 76 74-106 mg/dL Calcium Level 8.4 L 8.7-10.4 mg/dL Troponin I High Sensitivity 96 *H </=54 ng/L Urine Color Yellow Yellow Urine Clarity Clear Clear Urine pH 5.0 5.0-9.0 Urine Specific [place] 1.020 1.001-1.035 Urine Protein Trace H Negative Urine Ketones 1+ H Negative Urine Blood Negative Negative /uL Urine Nitrite Negative Negative Urine Bilirubin Negative Negative Urine Urobilinogen Normal Negative mg/dL Urine Leukocyte Esterase Negative Negative /uL Urine RBC <1 0 - 3 /hpf Urine Microscopic WBC 1 0-3 /HPF Urine Squamous Epithelial Cells None seen <5 /hpf Urine Bacteria None seen None Seen /hpf Urine Glucose Normal Normal mg/dL White Blood Count 8.0 4.4-10.8 10^3/uL Red Blood Count 3.59 L 4.5-5.90 10^6/uL Hemoglobin 9.8 L 13.5-17.5 g/dL Hematocrit 29.8 L 41.0-53.0 % Mean Corpuscular Volume 83.1 80.0-100.0 fL Mean Corpuscular Hemoglobin 27.3 L 28.0-32.0 pg Mean Corpuscular Hemoglobin Concent 32.9 32.0-36.0 g/dL Red Cell Distribution Width 18.2 H 11.8-14.3 % Platelet Count 205 140-450 10^3/uL Mean Platelet Volume 8.8 6.9-10.8 fL Neutrophils (%) (Auto) 69.4 37.0-80.0 % Lymphocytes (%) (Auto) 20.1 10.0-50.0 % Monocytes (%) (Auto) 8.8 0.0-12.0 % Eosinophils (%) (Auto) 1.1 0.0-7.0 % Basophils (%) (Auto) 0.6 0.0-2.0 % Neutrophils # (Auto) 5.5 1.6-8.6 10 ^3/uL Lymphocytes # (Auto) 1.6 0.4-5.4 10 ^3/uL Monocytes # (Auto) 0.7 0-1.3 10 ^3/uL Eosinophils # (Auto) 0.1 0-0.8 10 ^3/uL Basophils # (Auto) 0 0-0.2 10 ^3/uL Nucleated Red Blood Cells 0.0 % Magnesium Level 1.7 1.6-2.6 mg/dL Total Bilirubin 0.4 0.2-1.0 mg/dL Aspartate Amino Transferase (AST) 29 13-40 U/L Alanine Aminotransferase (ALT) 26 7-40 U/L Alkaline Phosphatase 59 46-116 U/L B-Type Natriuretic Peptide 117.72 0-100 pg/mL Total Protein 6.2 5.7-8.2 g/dL Albumin 2.8 L 3.2-4.8 g/dL Assessment Chest pain. Elevated troponin. Diabetes mellitus. History of DE. ? Pneumonia. Plan/Recommendation I agree with your ongoing assessment and care of plan. Aspirin, Lipitor, Plavix. IV antibiotics as ordered. Diuretics with Lasix. Dilaudid and Oxycodone for pain management. Nitro SL. Additional plan as per the hospital course. A total of 45 minutes was spent reviewing the patient record, examining the patient, making a diagnostic and therapeutic plan, discussing this plan with medical personnel, following up on diagnostic studies and following the patient for clinical stability excluding any and all procedures. At least 50% of this time was spent in direct, [id number] contact. Plan discussed with: Patient ROHINI ABARCA MD Dec 24, 2024 13:07
[2024-12-25 07:13] LABS: Hematocrit 32.3 % (41.0-53.0); Hemoglobin 10.3 g/dL (13.5-17.5); Mean Corpuscular Hemoglobin 27.5 pg (28.0-32.0); Mean Corpuscular Volume 86.1 fL (80.0-100.0); Nucleated Red Blood Cells % 0.0 %
[2024-12-25 07:29] LABS: Alanine Aminotransferase 20 U/L (7-40); Alkaline Phosphatase 60 U/L (46-116); Anion Gap 6 (5-15); Carbon Dioxide 26 mmol/L (20-31); Glucose 86 mg/dL (74-106); Potassium 4.4 mmol/L (3.5-5.1); Sodium 141 mmol/L (136-145)
[2024-12-25 07:30] LABS: BUN/Creatinine Ratio 13.0 (10.0-20.0); Blood Urea Nitrogen 17 mg/dL (9-23); Total Protein 6.7 g/dL (5.7-8.2)
[2024-12-25 07:31] LABS: Albumin 3.1 g/dL (3.2-4.8); Bilirubin, Total 0.3 mg/dL (0.2-1.0); Calcium 8.6 mg/dL (8.7-10.4); Chloride 109 mmol/L (98-107)
--- NOTE | 2024-12-25 13:38 | DVHPN2 ---
Progress Note - Dictate Date Seen: Dec 25, 2024 Medical Necessity Reason Pt with a Central, PICC or Fol: No Subjective Patient was seen and evaluated in follow up. Patient is on 2 LPM NC. Patient is complaining of chest pain. 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 Telemetry reviewed. vital signs Vital Sign Date Time Temp Pulse Resp B/P (MAP) Pulse Ox O2 Delivery O2 Flow Rate FiO2 12/25/24 10:00 96 Nasal Cannula* 2 28 12/25/24 09:28 60 17 105/52 12/25/24 09:00 96.0 96.0 Total Intake and Output 12/24/24 12/24/24 12/25/24 15:00 23:00 07:00 Intake Total 1750 ml 1230 ml 300 ml Output Total 600 ml 250 ml Balance 1750 ml 630 ml 50 ml medications Current Medications Medications Dose Ordered Sig/Yvette Route Start Time Stop Time Status Last Admin Dose Admin Nitroglycerin 0.4 mg Q5MINP PRN SL 12/23/24 20:00 Aspirin 162 mg DAILY PO 12/24/24 10:00 12/25/24 09:29 162 MG Atorvastatin Calcium 80 mg HS PO 12/23/24 22:00 12/24/24 22:39 80 MG Clopidogrel Bisulfate 75 mg DAILY PO 12/24/24 10:00 12/25/24 09:29 75 MG Furosemide 40 mg BIDD PO 12/24/24 06:00 12/25/24 06:14 40 MG Gabapentin 800 mg BID PO 12/23/24 22:00 12/25/24 09:28 800 MG Levetiracetam 750 mg BID PO 12/23/24 22:00 12/25/24 09:28 750 MG Ranolazine 500 mg BID PO 12/23/24 22:00 12/25/24 09:29 500 MG Ondansetron HCl 4 mg Q4HP PRN IV 12/23/24 20:00 Acetaminophen 650 mg Q6HP PRN PO 12/23/24 20:00 UNV Albuterol 2.5 mg Q6HPRN PRN NEB 12/23/24 21:45 Azithromycin 250 ml @ 125 mls/hr DAILY IV 12/24/24 10:00 12/25/24 09:30 125 MLS/HR Oxycodone HCl 10 mg Q6HPRN PRN PO 12/24/24 12:00 12/25/24 04:22 10 MG Hydromorphone HCl 0.5 mg Q4HPRN PRN IV 12/24/24 12:00 12/25/24 09:28 0.5 MG objective GENERAL: Alert and oriented x 3. No acute distress. EYES: PERRL, EOMI. Anicteric. HENT: Moist mucous membranes. LUNGS: Clear to auscultation bilaterally. CARDIOVASCULAR: Irregular rate and rhythm. ABDOMEN: Soft, nontender and nondistended. EXTREMITIES: No edema. NEUROLOGIC: No focal neurological deficits. SKIN: Warm, dry. laboratory and microbiology Laboratory Tests 12/25/24 06:54 Test 12/25/24 06:54 Range/Units Serum Glucose 86 74-106 mg/dL Problem List Chest pain. Elevated troponin. Diabetes mellitus. History of HI. ? Pneumonia. Assessment/Plan Continued all current supportive medical care. Aspirin, Lipitor, Plavix. IV antibiotics as ordered. Diuretics with Lasix. Dilaudid and Oxycodone for pain management. Nitro SL. Additional plan as per the hospital course. Dietary Evaluation Review Comments: Nutrition Recommendation: 1) Patricio 1 pk BID 2) CCHO 75gm + cardiac diet 3) Refer B[employer] Process Control Technician for diabetes education 4) Monitor PO intake, lab values, weight trend, and I/O Expected Outcomes/Goals: Wound to improve FU 3-5 days Plan discussed with: Patient ROHINI ABARCA MD Dec 25, 2024 12:13
[2024-12-25] MEDS ORDERED: AZIT500T66 PO (13:39)
--- NOTE | 2024-12-25 13:43 | DVHDS2 ---
Discharge Summary Date of Admission Dec 23, 2024 at 19:48 Date of Discharge: Dec 25, 2024 Labs/Diagnostic Data: Laboratory Results Test 12/25/24 06:54 12/23/24 20:33 12/23/24 20:31 12/23/24 17:23 White Blood Count 7.5 10^3/uL (4.4-10.8) Red Blood Count 3.76 10^6/uL (4.5-5.90) Hemoglobin 10.3 g/dL (13.5-17.5) Hematocrit 32.3 % (41.0-53.0) Mean Corpuscular Volume 86.1 fL (80.0-100.0) Mean Corpuscular Hemoglobin 27.5 pg (28.0-32.0) Mean Corpuscular Hemoglobin Concent 32.0 g/dL (32.0-36.0) Red Cell Distribution Width 18.6 % (11.8-14.3) Platelet Count 203 10^3/uL (140-450) Mean Platelet Volume 9.5 fL (6.9-10.8) Neutrophils (%) (Auto) 64.3 % (37.0-80.0) Lymphocytes (%) (Auto) 22.1 % (10.0-50.0) Monocytes (%) (Auto) 9.7 % (0.0-12.0) Eosinophils (%) (Auto) 3.2 % (0.0-7.0) Basophils (%) (Auto) 0.7 % (0.0-2.0) Neutrophils # (Auto) 4.8 10 ^3/uL (1.6-8.6) Lymphocytes # (Auto) 1.7 10 ^3/uL (0.4-5.4) Monocytes # (Auto) 0.7 10 ^3/uL (0-1.3) Eosinophils # (Auto) 0.2 10 ^3/uL (0-0.8) Basophils # (Auto) 0.1 10 ^3/uL (0-0.2) Nucleated Red Blood Cells 0.0 % Sodium Level 141 mmol/L (136-145) Potassium Level 4.4 mmol/L (3.5-5.1) Chloride Level 109 mmol/L (98-107) Carbon Dioxide Level 26 mmol/L (20-31) Anion Gap 6 (5-15) Blood Urea Nitrogen 17 mg/dL (9-23) Creatinine 1.31 mg/dL (0.700-1.30) Glomerular Filtration Rate Calc 59 mL/min (>90) BUN/Creatinine Ratio 13.0 (10.0-20.0) Serum Glucose 86 mg/dL (74-106) Calcium Level 8.6 mg/dL (8.7-10.4) Total Bilirubin 0.3 mg/dL (0.2-1.0) Aspartate Amino Transferase (AST) 29 U/L (13-40) Alanine Aminotransferase (ALT) 20 U/L (7-40) Alkaline Phosphatase 60 U/L (46-116) Total Protein 6.7 g/dL (5.7-8.2) Albumin 3.1 g/dL (3.2-4.8) Troponin I High Sensitivity 96 ng/L (</=54) Urine Color Yellow (Yellow) Urine Clarity Clear (Clear) Urine pH 5.0 (5.0-9.0) Urine Specific [place] 1.020 (1.001-1.035) Urine Protein Trace (Negative) Urine Ketones 1+ (Negative) Urine Blood Negative /uL (Negative) Urine Nitrite Negative (Negative) Urine Bilirubin Negative (Negative) Urine Urobilinogen Normal mg/dL (Negative) Urine Leukocyte Esterase Negative /uL (Negative) Urine RBC <1 /hpf (0 - 3) Urine Microscopic WBC 1 /HPF (0-3) Urine Squamous Epithelial Cells None seen /hpf (<5) Urine Bacteria None seen /hpf (None Seen) Urine Glucose Normal mg/dL (Normal) Magnesium Level 1.7 mg/dL (1.6-2.6) B-Type Natriuretic Peptide 117.72 pg/mL (0-100) Other Laboratory Tests 12/25/24 06:54 Brief Hx & Hospital Course: 69-year-old male presents for evaluation of chest pain. Patient reports a one day history of substernal pressure-like chest pain that radiates to his left side as well. Reports shortness for breath with nausea. He states the symptoms have been intermittent. Currently rates the pain at 5/10 intensity. Past Medical History Dyslipidemia, diabetes mellitus, hypertension, COPD, CHF, mi, TIA, angina,. 12/24: 69-year-old male, history of DC, history diabetes, multiple admissions. Chest pain. Presenting with chest pain. Troponins positive just like last visit. Patient has high tolerance for pain meds, we will continue IV and p.o. for severe and moderate. Patient has had recent echo on August 2024 with LVH.. Given patient's significant disease and history and troponins positive cardiology consulted. We will follow up with Cardiology, appreciate recommendations from Cardiology. - Remains bed-bound, on isolation, continues to complain of chest pain. Obese. Strength lower extremity is 3-5. We will continue current management plan.. diagnosis: Pneumonia possible, Gram-negative/ positive likely Chest pain, rule out ACS, likely costochondritis NSTEMI, ruled out type 1 , ruled out unstable angina Diabetes mellitus History of DC Dyslipidemia, hypertension, COPD, CHF, mi, TIA, angina,. plan: - gurney transport to home - continue home oxygen -Take azithromycin 500 mg daily for 4 days - do not take NSAIDs, continue taking baclofen 10 b.i.d. for possible musculoskeletal related pain. - continue Protonix 40 daily for gastritis -continue taking home medications Low-salt cardiac diet, low carb diabetic diet -follow up with PCP to review discharge Condition at Discharge: Fair Final Diagnosis/Problems List Pneumonia possible, Gram-negative/ positive likely Chest pain, rule out ACS, likely costochondritis NSTEMI, ruled out type 1 , ruled out unstable angina Diabetes mellitus History of DC Dyslipidemia, hypertension, COPD, CHF, mi, TIA, angina,. Discharge Disposition: Home Discharge Instruct/Medications Scheduled Aspirin (Aspirin Regular Strength), 1 TAB PO DAILY, (Reported) Atorvastatin Calcium (Lipitor), 1 TAB PO DAILY, (Reported) Azithromycin (Azithromycin), 1 TAB PO DAILY Baclofen (Baclofen), 10 MG PO BID Beclomethasone Dipropionate (Qvar Redihaler), 1 PUFF INH BID, (Reported) Budesonide-Formoterol Fumarate (Budesonide/Formoterol Fum 160-4.5 Mcg/Act), 2 PUFF IN BID, (Reported) Bupropion Hcl (Bupropion Hcl), 2 TAB PO DAILY, (Reported) Clopidogrel Bisulfate (Clopidogrel), 1 TAB PO DAILY, (Reported) Dapagliflozin Propanediol (Farxiga), 1 TAB PO DAILY, (Reported) Furosemide (Lasix), 40 MG PO BID Gabapentin (Gabapentin), 1 TAB PO BID, (Reported) Ipratropium-Albuterol (Combivent Respimat), 1 PUFF INH QID, (Reported) Lactulose (Lactulose), 15 ML PO BID PRN, (Reported) Levetiracetam (Levetiracetam), 1 TAB PO BID, (Reported) Lidocaine (Lidocaine Topical Pain Pa), 1 PATCH TOP DAILY, (Reported) Midodrine HCl (Midodrine Hydrochloride), 1 TAB PO TID, (Reported) Mupirocin (Pseudomonas Fluores (Mupirocin), 2 % EX BID Oxybutynin Chloride (Ditropan Xl), 15 MG PO DAILY, (Reported) Oxycodone W/ Acetaminophen (Percocet 5/325MG), 1 TAB PO QID Pantoprazole Sodium Sesquihydr (Pantoprazole Sodium), 1 TAB PO QAM, (Reported) Potassium Chloride (Potassium Chloride ER), 1 TAB PO BID, (Reported) Ranolazine (Ranexa), 500 MG PO BID Silver Sulfadiazine (Silver Sulfadiazine), 1 APPLIC TOP DAILY, (Reported) Trazodone Hcl (Trazodone Hcl), 4 TAB PO HS, (Reported) Scheduled PRN Hydrocodone-Acetaminophen (Hydrocodone Bitartrate/AC 5-325 mg), 1 TAB PO TIDP PRN Discharge Statement: "Patient was advised to return to the ER or call 911 if any headaches, dizziness, shortness of breath, chest pain, abdominal pain, bleeding, fevers, or worsening of medical condition. Patient was counseled about treatment plan, medications, possible side effects, patientverbalized understanding. All questions were answered to the best of my ability. This discharge took greater then 30 minutes in planning, reviewing documentation, counseling the patient, and discussing with other team members." ASSESSMENT ASSESSMENT Assessment Date of Service: Dec 25, 2024 Billing Provider: AMANDA RODRÍGUEZ MD Common Visit Codes: 44903-LMW/OBS DISCH DAY >30min AMANDA RODRÍGUEZ MD Dec 25, 2024 13:43
[2024-12-25] MEDS: methylPREDNISolone SOD SUCC 40 MG/ML VL IV ONE (13:45)
[2024-12-25] MEDS: BACLOFEN 10 MG TAB PO SCH (13:45)
== END 2024-12-25 19:00 | disposition home or self-care (01) | DRG 205 ==
LOC: EDBD 17:07 → ER 17:07 → OVERFLOW 19:48 → TELE-CENTR 21:52
PROVIDERS: ADMIT Student in an Organized Health Care Education/Training Program; ATTEND Student in an Organized Health Care Education/Training Program
DX: M94.0 Chondrocostal junction syndrome [Tietze] (principal); I21.4 Non-ST elevation (NSTEMI) myocardial infarction; J15.69 Pneumonia due to other Gram-negative bacteria; J15.9 Unspecified bacterial pneumonia; J44.0 Chronic obstructive pulmonary disease with (acute) lower respiratory infection; G45.9 Transient cerebral ischemic attack, unspecified; I11.0 Hypertensive heart disease with heart failure; I50.9 Heart failure, unspecified; E11.9 Type 2 diabetes mellitus without complications; D64.9 Anemia, unspecified; E78.5 Hyperlipidemia, unspecified; F41.9 Anxiety disorder, unspecified; I20.9 Angina pectoris, unspecified; Z90.49 Acquired absence of other specified parts of digestive tract; Z99.81 Dependence on supplemental oxygen; Z95.5 Presence of coronary angioplasty implant and graft; Z82.49 Family history of ischemic heart disease and other diseases of the circulatory system; Z82.3 Family history of stroke; Z81.8 Family history of other mental and behavioral disorders; Z87.440 Personal history of urinary (tract) infections; Z88.6 Allergy status to analgesic agent; I25.2 Old myocardial infarction; Z86.73 Personal history of transient ischemic attack (TIA), and cerebral infarction without residual deficits; Z83.3 Family history of diabetes mellitus; Z82.5 Family history of asthma and other chronic lower respiratory diseases; K21.9 Gastro-esophageal reflux disease without esophagitis; Z74.01 Bed confinement status
CPT/HCPCS: 36415; 71045; 80048; 80053; 81001; 83735; 83880; 84484; 85025; 93005; 99291; G0378

== ENCOUNTER 2025-01-10 04:24 | Inpatient (IN) | payer BC, OTHER ==
[2025-01-10] VITALS (8 sets, daily range): BP systolic 111–133; BP diastolic 77–79; PULSE 60–88; RESP 15–20; TEMP 97.1–98.6; O2SAT 96–99
[~2025-01-10] VITALS: Ht 172.7 cm; Wt 124.0 kg
[~2025-01-10 04:24] MED LIST changes: +AMLO1TAB23 PO; +METH-1181 PO; +NITR0.4S29 SL; +SENN-105 PO
--- NOTE | 2025-01-10 04:58 | ED.PDOC ---
HPI Comments HPI: 70-year-old male who came to ER via EMS for chest pain. Patient is seen and admitted here multiple times for chest pains. About an hour ago he woke up from sleep with sudden onset left-sided chest pains, pressure radiating to his left arm associated shortness of breath. Blood sugar 191, saturating 96% on 2 L/min. Patient took 3 nitro at home prior to arrival of paramedics. Patient was discharged here last December 25, diagnosed with Pneumonia possible, Gram-negative/ positive likely Chest pain, rule out ACS, likely costochondritis NSTEMI, ruled out type 1 , ruled out unstable angina Diabetes mellitus History of RI Dyslipidemia, hypertension, COPD, CHF, mi, TIA, angina,. Past Medical History: Hypertension, diabetes, dyslipidemia, CHF, COPD on home oxygen 2 L/min, coronary artery disease Past Surgical History: Cardiac stents x5 Social History: Denies HPI: Poor Historian. REVIEW OF SYSTEMS: CONSTITUTIONAL: Denies acute: fever, diaphoresis, chills, HEAD: Denies acute: headache, photophobia Eyes: Denies acute: Double vision, vision loss, eye pain, eye discharge. EARS: Denies acute: tinnitus, hearing loss, ear discharge, ear pain, THROAT: Denies acute: sore throat, swelling, difficulty swallowing , pain with swallowing, change in voice. NECK: Denies acute: neck pain, neck swelling, stiff neck. HEART: Denies acute : palpitations, LUNGS: Denies acute: , wheezing, cough, hemoptysis ABDOMEN: Denies acute: abdominal pain, Nausea, Vomiting, diarrhea, melena , hematemesis, hematochezia SKIN: Denies acute: rash, redness, lesions, itchiness. EXTREMITIES: Denies acute: calf pain, numbness, tingling, weakness, denies pain in extremity. Denies acute: Low back pain. Neuro: Denies acute: focal neurological deficit, motor or sensory focal neurological deficit, tremors, seizure like activity, confusion, dizziness, change in mental status, loss of bowel or bladder function, cauda equina like symptoms. : Denies acute: dysuria, hematuria, flank pain, increase in urinary frequency. PSYCH: Denies acute: hallucination, suicidal ideation, homicidal ideation. PHYSICAL EXAM: General: ----mild---acute distress, awake and alert. Head: normocephalic, atraumatic. No raccoon's eyes, no torres sign. Neck: supple, trachea is midline, no swelling. Throat: Normal phonation. Eyes:, no erythema, no purulent discharge, no proptosis, no icterus. Heart: regular rate, regular rhythm, no significant murmur appreciated. Lungs: no apparent respiratory distress, Able to speak in full sentences. No wheezing, no rhonchi, no crackles. No stridors Clear to auscultation bilaterally. Abdomen: non tender to palpation, non distended, soft, no guarding, no rebound, + bowel sounds. Obese Neuro: Awake, Alert, oriented to name, self, situation, follows commands GCS=15. Speech is normal. Skin: no petechia, no purpura, no cyanosis, non-pale, not jaundice. Lower extremities: --trace bilateral- Pitting edema no deformity, no focal swelling, no calf TTP. Makes eye contact. moves all four extremities. Face: no apparent facial droop. ED COURSE: DISCLAIMER: This medical document was created using an electronic medical record system with voice recognition software and computerized dictation system. Although this document has been carefully reviewed, there might still be some phonetic and typographical errors. Occasional wrong-word or "sound-alike" substitutions may have occurred due to the inherent limitations of voice recognition software. These areas are purely typographical due to imperfections of the software programs and do not reflect any compromise in the patient's medical care. Please read the chart carefully and recognize, using context, where these substitutions have occurred. Chief Complaint: Chest Pain Time Seen by MD: 04:58 Primary Care Provider: marie Reviewed Notes: Nurses Notes, Quarter Seamer Notes, Allergies Allergies: Coded Allergies: Acetaminophen (Verified Allergy, Unknown, 12/13/24) Home Meds Active Scripts Azithromycin (Azithromycin) 500 Mg Tab, 1 TAB PO DAILY for 4 Days, #4 TAB 0 Refills Prov:AMANDA RODRÍGUEZ MD 12/25/24 Mupirocin (Pseudomonas Fluores (Mupirocin) 2 % Oin, 2 % EX BID for 5 Days, #1 OIN Prov:WESLEY ROMEO MD 12/15/24 Oxycodone W/ Acetaminophen (Percocet 5/325MG) 1 Tab Tb, 1 TAB PO QID, #40 TAB Prov:CYDNEY MCGARRY MD 12/10/24 Baclofen (Baclofen) 10 Mg Tab, 10 MG PO BID for 7 Days, #14 TAB 0 Refills Prov:AMANDA RODRÍGUEZ MD 12/02/24 Hydrocodone-Acetaminophen (Hydrocodone Bitartrate/AC 5-325 mg) 1 Tab Tab, 1 TAB PO TIDP PRN for 7 Days, #21 TAB 0 Refills Prov:AMANDA RODRÍGUEZ MD 12/02/24 Furosemide (Lasix) 40 Mg Tab, 40 MG PO BID for 30 Days, #60 TAB Prov:BK LAGUERRE MD 05/29/24 Ranolazine (Ranexa) 500 Mg Tab, 500 MG PO BID for 30 Days, #60 TAB Prov:JUSTIN DUARTE MD 10/22/18 Reported Medications Budesonide-Formoterol Fumarate (Budesonide/Formoterol Fum 160-4.5 Mcg/Act) 1 Aer Aer, 2 PUFF IN BID for 30 Days, #10.2 02/26/24 Midodrine HCl (Midodrine Hydrochloride) 5 Mg Tab, 1 TAB PO TID for 30 Days, #90 02/26/24 Potassium Chloride (Potassium Chloride ER) 10 Meq Tab, 1 TAB PO BID for 30 Days, #60 02/26/24 Aspirin (Aspirin Regular Strength) 325 Mg Tab, 1 TAB PO DAILY for 30 Days, #30 02/26/24 Lactulose (Lactulose) 10 Gm/15 Ml Rachna, 15 ML PO BID PRN for 15 Days, #473 02/26/24 Atorvastatin Calcium (Lipitor) 80 Mg Tab, 1 TAB PO DAILY for 30 Days, #30 02/26/24 Levetiracetam (Levetiracetam) 750 Mg Tab, 1 TAB PO BID for 30 Days, #60 02/26/24 Lidocaine (Lidocaine Topical Pain Pa) 4 % Pad, 1 PATCH TOP DAILY 06/28/23 Gabapentin (Gabapentin) 800 Mg Tab, 1 TAB PO BID for 30 Days, #60 06/28/23 Ipratropium-Albuterol (COMBIVENT RESPIMAT) Respimat Aer, 1 PUFF INH QID 05/14/23 Dapagliflozin Propanediol (Farxiga) 10 Mg Tab, 1 TAB PO DAILY for 30 Days, #30 05/14/23 Beclomethasone Dipropionate (Qvar Redihaler) 80 Mcg/Act Aer, 1 PUFF INH BID for 30 Days, #10.6 02/27/23 Silver Sulfadiazine (Silver Sulfadiazine) 1 % Cre, 1 APPLIC TOP DAILY for 30 Days, #50 02/27/23 Oxybutynin Chloride (Ditropan Xl) 5 Mg Tab, 15 MG PO DAILY for 30 Days, #30 02/27/23 Trazodone Hcl (Trazodone Hcl) 100 Mg Tab, 4 TAB PO HS for 30 Days, #120 02/27/23 Clopidogrel Bisulfate (CLOPIDOGREL) 75 Mg Tab, 1 TAB PO DAILY for 30 Days, #30 02/07/23 Pantoprazole Sodium Sesquihydr (Pantoprazole Sodium) 40 Mg Tab, 1 TAB PO QAM 02/07/23 Bupropion Hcl (Bupropion Hcl) 75 Mg Tab, 2 TAB PO DAILY for 30 Days, #60 11/10/17 Information Source: Patient Mode of Arrival: Ambulatory Past Medical History PAST MEDICAL HISTORY: Angina, Anxiety, Asthma, CAD, CHF, CKF, COPD, CVA, Depression, DM, GERD, High Lipids, HTN, Liver, RI, TIA, UTI'S Surgical History: Appendectomy, Cholecystectomy, PTCA, Thyroidectomy Family History Family History: Reviewed,noncontributory to illness, Unknown Social History Smoker: Non-Smoker Alcohol: Denies ETOH Use Drugs: Denies Drug Use Lives In: Home EKG EKG : Pulse Rate (adult): 74 Cardiac Rhythm: Paced Was a procedure done? Was a procedure done?: No CP Differential Dx Differential Diagnosis: N/A Differential Diagnosis: Other (Ddx include but not limitied to gastritis, musculoskeletal pain, radiculopathy, atypical chest pain, dissection, aneurysm, ACS, unstable angina, hiatal hernia, GERD, anxiety, costochondritis, PE, pneumothroax, neoplasm, cardiac ischemia, drug abuse, anemia.) X-Ray, Labs, Meds, VS Vital Signs Date Time Temp Pulse Resp B/P (MAP) Pulse Ox O2 Delivery O2 Flow Rate FiO2 01/10/25 08:05 74 01/10/25 08:00 98.6 87 20 157/67 (97) 98 98.6 01/10/25 08:00 87 20 98 Nasal Cannula* 2 01/10/25 06:29 71 01/10/25 06:15 140/87 01/10/25 05:43 98 Nasal Cannula* 2 01/10/25 05:36 80 20 97 Room Air* 0 21 01/10/25 05:36 98.1 80 18 125/82 (96) 97 98.1 01/10/25 05:15 145/92 01/10/25 05:15 145/92 01/10/25 04:58 74 01/10/25 04:34 74 01/10/25 04:25 98.6 88 18 171/83 98 98.6 Lab Test 01/10/25 07:50 01/10/25 04:49 Range/Units Magnesium Level 2.0 1.6-2.6 mg/dL Troponin I High Sensitivity 65 *H 63 *H </=54 ng/L C-Reactive Protein High Sensitivity 2.79 H <1.0 mg/dL Thyroid Stimulating Hormone (TSH) 1.95 0.55-4.78 uIU/mL White Blood Count 7.2 4.4-10.8 10^3/uL Red Blood Count 3.75 L 4.5-5.90 10^6/uL Hemoglobin 10.0 L 13.5-17.5 g/dL Hematocrit 31.2 L 41.0-53.0 % Mean Corpuscular Volume 83.1 80.0-100.0 fL Mean Corpuscular Hemoglobin 26.7 L 28.0-32.0 pg Mean Corpuscular Hemoglobin Concent 32.2 32.0-36.0 g/dL Red Cell Distribution Width 18.6 H 11.8-14.3 % Platelet Count 277 140-450 10^3/uL Mean Platelet Volume 8.8 6.9-10.8 fL Neutrophils (%) (Auto) 64.9 37.0-80.0 % Lymphocytes (%) (Auto) 24.0 10.0-50.0 % Monocytes (%) (Auto) 9.2 0.0-12.0 % Eosinophils (%) (Auto) 1.3 0.0-7.0 % Basophils (%) (Auto) 0.6 0.0-2.0 % Neutrophils # (Auto) 4.7 1.6-8.6 10 ^3/uL Lymphocytes # (Auto) 1.7 0.4-5.4 10 ^3/uL Monocytes # (Auto) 0.7 0-1.3 10 ^3/uL Eosinophils # (Auto) 0.1 0-0.8 10 ^3/uL Basophils # (Auto) 0 0-0.2 10 ^3/uL Nucleated Red Blood Cells 0.0 % Sodium Level 146 H 136-145 mmol/L Potassium Level 4.5 3.5-5.1 mmol/L Chloride Level 109 H 98-107 mmol/L Carbon Dioxide Level 29 20-31 mmol/L Anion Gap 8 5-15 Blood Urea Nitrogen 15 9-23 mg/dL Creatinine 0.99 0.700-1.30 mg/dL Glomerular Filtration Rate Calc 81 >90 mL/min BUN/Creatinine Ratio 15.2 10.0-20.0 Serum Glucose 95 74-106 mg/dL Calcium Level 9.0 8.7-10.4 mg/dL Total Bilirubin 0.3 0.2-1.0 mg/dL Aspartate Amino Transferase (AST) 24 13-40 U/L Alanine Aminotransferase (ALT) 13 7-40 U/L Alkaline Phosphatase 69 46-116 U/L B-Type Natriuretic Peptide 386.01 0-100 pg/mL Total Protein 7.0 5.7-8.2 g/dL Albumin 3.0 L 3.2-4.8 g/dL Microbiology Date/Time Source Procedure Growth Status 01/10/25 08:09 Nose MRSA Screen - Final Complete [place] [id number] Ph: [phone] DIAGNOSTIC IMAGING Diagnostic Imaging Report : [id number] Signed PATIENT: NAVID SANCHEZ ACCT: [id number] UNIT: [id number] : 1955 LOC: ER ROOM / BED: / AGE / SEX: 70 / M ADM STATUS: REG ER SERVICE [id number] ORDERING PHYSICIAN: FLETCHER FARRELL DO PROCEDURE(s): CXRP - CHEST PORTABLE REASON: cp ORDER NUMBER(s): [id number], ACCESSION NUMBER(s): [id number] CHEST RADIOGRAPH Indication: cp Technique: Single frontal view of the chest was obtained Comparison: XR CHEST 1 VIEW on DOS: 01/04/25, XR CHEST 1 VIEW on DOS: 12/27/24, XY CHEST PORTABLE on DOS: 12/23/24 IMPRESSION: Heart is prominent size. There is [id number]-[id number] pulmonary vascular congestion with small bilateral pleural effusions. No pneumothorax. ATED BY: COOPER VERIDN MD DICTATED DATE/TIME: 01/10/2550 SIGNED BY: COOPER VERDIN MD SIGNED DATE/TIME: 01/10/2550 CC: Time of 1ST Reevaluation: 04:54 Reevaluation 1ST: Unchanged Patient Education/Counseling: Diagnosis, Treatment Family Education/Counseling: No Family Present Comments MDM: patient presented with the above HPI.---cardiac ---workup was initiated. patient was found with the above mentioned diagnosis. the following medications were ordered: please refer to order lists of meds and tests obtained by myself Dr. Farrell. Patient ED course and VS have been stabilized. Patient has been reassessed in the ED and remained in a stable condition. Pertinent incidental findings were discussed with the patient and/or family. Patient/family voices understanding and is agreeable with plan. Patient has been observed in the ED adequate length of time to insure improvement/stability. Escalation of care considered: Consideration of escalation to observation or admission Patient was given DuoNeb treatment and Lasix and nitroglycerin sublingually and aspirin Patient has a high heart score. Patient was ADMITTED to the medicine team for further evaluation and treatment of their presentation. All the reports of any imaging studies that were ordered by myself were reviewed by myself. SEPSIS Sepsis Screen Date sepsis recognized/suspect: Jan 10, 2025 Time Sepsis recognized/suspect: 424 Recent Procedure: No On Antibiotic Therapy: No Respiratory Rate >20: No Heart Rate >90: No Temp<36 C (96.8 F) or >38.3 C: No SBP <90 or MAP <65 mmHG: No New Acute Mental Status Change: No Is the patient on CPAP, BIPAP,: No Physician Orders [employer] (01/10/25 ) Electrocardigram (01/10/25 04:37) Chest Portable (01/10/25 04:37) Electrocardigram (01/10/25 05:37) Electrocardigram (01/10/25 07:37) Vital Signs Date Time Temp Pulse Resp B/P (MAP) Pulse Ox O2 Delivery O2 Flow Rate FiO2 01/10/25 08:05 74 01/10/25 08:00 98.6 87 20 157/67 (97) 98 98.6 01/10/25 08:00 87 20 98 Nasal Cannula* 2 28 01/10/25 06:29 71 01/10/25 06:15 140/87 01/10/25 05:43 98 Nasal Cannula* 2 28 01/10/25 05:36 80 20 97 Room Air* 0 21 01/10/25 05:36 98.1 80 18 125/82 (96) 97 98.1 01/10/25 05:15 145/92 01/10/25 05:15 145/92 01/10/25 04:58 74 01/10/25 04:34 74 01/10/25 04:25 98.6 88 18 171/83 98 98.6 Laboratory Tests Test 01/10/25 04:49 White Blood Count 7.2 10^3/uL (4.4-10.8) Departure 1 Departure Time of Disposition: 05:01 Impression: Primary Impression: Chest pain Additional Impressions: Dyspnea CHF exacerbation Elevated troponin Pulmonary vascular congestion Disposition: ADMITTED INPATIENT [facility]mit [facility] Condition: Guarded Discharged With: Self Critical Care Note Critical Care Time?: Yes (55 min-critical care time only) Heart Score Heart Score: Heart Score Response (Comments) Value History Moderate Suspicious 1 EKG Repolarization Disturb 1 Age >65 2 Risk Factors >3 or Hx ASHD 2 Troponin 1-2 x's Normal limit 1 Total 7 I personally scribed for FLETCHER FARRELL DO ([email or web address]) on 01/10/25 at 04:58. Electronically submitted by Mateo Fernando ([facility] I personally scribed for FLETCHER FARRELL DO ([email or web address]) on 01/10/25 at 04:59. Electronically submitted by Mateo Fernando ([facility] I personally scribed for FLETCHER FARRELL DO ([email or web address]) on 01/10/25 at 05:05. Electronically submitted by Mateo Fernando ([facility] FLETCHER FARRELL DO Jan 10, 2025 04:58
[2025-01-10] MEDS: FUROSEMIDE 40 MG/4 ML VIAL IV ONE ×2 (05:15→09:42)
[2025-01-10] MEDS: NITROGLYCERIN 0.4 MG SL TAB SL ONE (05:15)
[2025-01-10 05:39] LABS: Hematocrit 31.2 % (41.0-53.0); Hemoglobin 10.0 g/dL (13.5-17.5); Mean Corpuscular Hemoglobin 26.7 pg (28.0-32.0); Mean Corpuscular Volume 83.1 fL (80.0-100.0); Nucleated Red Blood Cells % 0.0 %
[2025-01-10] MEDS: IPRATROPIUM BROM 0.5 MG/2.5ML INH SOL NEB ONE (05:42)
[2025-01-10] MEDS: ALBUTEROL SULF 2.5 MG/0.5ML(0.5%) NEB SOLN NEB ONE (05:42)
--- NOTE | 2025-01-10 05:50 | DVH ---
CHEST RADIOGRAPH Indication: cp Technique: Single frontal view of the chest was obtained Comparison: XR CHEST 1 VIEW on DOS: 01/04/25, XR CHEST 1 VIEW on DOS: 12/27/24, XY CHEST PORTABLE on DOS: 12/23/24 IMPRESSION: Heart is prominent size. There is [id number]-ootpwhfi pulmonary vascular congestion with small bilateral pleural effusions. No pneumothorax.
[2025-01-10 05:57] LABS: Alanine Aminotransferase 13 U/L (7-40); Alkaline Phosphatase 69 U/L (46-116); Anion Gap 8 (5-15); BUN/Creatinine Ratio 15.2 (10.0-20.0); Bilirubin, Total 0.3 mg/dL (0.2-1.0); Blood Urea Nitrogen 15 mg/dL (9-23); Calcium 9.0 mg/dL (8.7-10.4); Carbon Dioxide 29 mmol/L (20-31); Glucose 95 mg/dL (74-106); Potassium 4.5 mmol/L (3.5-5.1); Total Protein 7.0 g/dL (5.7-8.2)
[2025-01-10 05:58] LABS: Albumin 3.0 g/dL (3.2-4.8); Chloride 109 mmol/L (98-107); Sodium 146 mmol/L (136-145)
--- NOTE | 2025-01-10 06:17 | ECG ---
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
--- NOTE | 2025-01-10 06:39 | ECG ---
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
[2025-01-10] MEDS ORDERED: MORPHINE SULFATE INJ 2 MG/ml SYRG IV PRN (08:30)
[2025-01-10] MEDS ORDERED: NITROGLYCERIN 0.4 MG SL TAB SL PRN (08:30)
[2025-01-10] MEDS ORDERED: DOCUSATE SOD 100 MG CAP PO PRN (08:30)
[2025-01-10] MEDS ORDERED: ONDANSETRON HCL 4 MG/2 ML VIAL IV PRN (08:30)
[2025-01-10] MEDS ORDERED: ACETAMINOPHEN 325 MG TAB PO PRN (08:30)
--- NOTE | 2025-01-10 08:32 | DVHHPRES ---
History of Present Illness Resident Creating Document: MATEUSZ WELSH RESIDENT History of Present Illness Mr. Cain, 70-year-old male with a history of hypertension, resolved Type II diabetes, CKDIIIB, dyslipidemia, CHF, COPD on home oxygen (2 L/min), coronary artery disease with prior GA and cardiac stents (x5), presented to the ER via EMS for sudden onset left-sided chest pain and pressure radiating to the left arm, associated with shortness of breath, occurring about an hour prior while waking from sleep. He took 3 nitroglycerin tablets at home before EMS arrival. On arrival, blood sugar was 191 mg/dL, and SpO was 96% on 2 L/min oxygen. Patient has multiple prior admissions for chest pain, most recently discharged on December 25 after workup for pneumonia, chest pain (rule out ACS), NSTEMI (type 1 ruled out), and unstable angina, with chronic comorbidities including TIA and angina. PMHx: hypertension, resolved Type II diabetes, dyslipidemia, CKDIIIB, CHF, COPD on home oxygen (2 L/min), coronary artery disease with prior GA and cardiac stents (x5) PSHx: ACS s/p stents, no cardiac surgery. Coronary artery disease status post multiple PTCAs with stent placement, Presence of micra leadless pacemaker. Family history: Multiple members have CAD, non contributory to the hospitalization. Social history: Former smoker, denies tobacco, alcohol, or drug use. Lives in home with sister (primary caregiver). Review of Systems Constitutional: Yes: Weakness, Malaise; No: Fever, Chills, Sweats, Other Eyes: No: Pain, Vision change, Conjunctivae inflammation, Eyelid inflammation, Other, Redness ENT: No: Ear pain, Ear discharge, Nose pain, Nose discharge, Nose congestion, Mouth pain, Mouth swelling, Throat pain, Throat swelling, Other Respiratory: Cough, Shortness of breath, SOB with excertion; No: Dry, Wheezing, Hemoptysis, Pleuritic Pain, Sputum, Wheezing, Other Cardiovascular: Chest Pain, Palpitations, Orthopnea; No: Paroxysmal Noc. Dyspnea, Edema, Lt Headedness, Other Gastrointestinal: No: Nausea, Vomiting, Abdominal Pain, Diarrhea, Constipation, Melena, Hematochezia, Other Genitourinary: No Dysuria, No Frequency, No Incontinence, No Hematuria, No Retention, No Other Musculoskeletal: No: other, neck pain, shoulder pain, arm pain, back pain, hand pain, leg pain, foot pain Skin: No: Rash, Lesions, Jaundice, Bruising, Other Neurological: No: Weakness, Numbness, Incoordination, Change in speech, Confusion, Seizures, Other Allergies: Coded Allergies: Acetaminophen (Verified Allergy, Unknown, 12/13/24) Medications Current Medications Medications Dose Ordered Sig/Yvette Route Start Time Stop Time Status Last Admin Dose Admin Ondansetron HCl 4 mg Q4HP PRN IV 01/10/25 08:30 UNV Docusate Sodium 100 mg BIDPRN PRN PO 01/10/25 08:30 UNV Exam Vital Signs Vital Signs Date Time Temp Pulse Resp B/P (MAP) Pulse Ox O2 Delivery O2 Flow Rate FiO2 01/10/25 08:05 74 01/10/25 06:15 140/87 01/10/25 05:43 98 Nasal Cannula* 2 28 01/10/25 05:36 20 01/10/25 05:36 98.1 98.1 General Appearance: Alert, Oriented X3, Cooperative, No acute distress, Other (anasarca, well distributed puffiness, no pitting edema) HEENT: Atraumatic, PERRLA, EOMI, Other (moist, poor oral hygiene, missing teeth) Respiratory: Other (basal rales and crackles up to mid lungs b/l) Cardiovascular: Regular rate, Normal S1, Normal S2, Other (frequent pvcs in tele ) Abdominal: Normal bowel sounds, Soft, No tenderness, No hepatospenomegaly, No masses Extremities: No clubbing, No cyanosis, No edema, Normal pulses, No tenderness/swelling Skin: No rashes, No breakdown, No significant lesion Neuro: Normal gait, Normal speech, Strength at 5/5 X4 ext (5/5 upper b/l 4/5 bl lower limbs), Normal tone, Sensation intact, Cranial nerves 3-12 NL Psych/Mental Status: Mental status NL, Mood NL, Other (poor historian, states to call sister for medical history details. ) Labs/Xrays Labs Test 01/10/25 07:50 01/10/25 04:49 Range/Units Troponin I High Sensitivity 65 *H </=54 ng/L White Blood Count 7.2 4.4-10.8 10^3/uL Red Blood Count 3.75 L 4.5-5.90 10^6/uL Hemoglobin 10.0 L 13.5-17.5 g/dL Hematocrit 31.2 L 41.0-53.0 % Mean Corpuscular Volume 83.1 80.0-100.0 fL Mean Corpuscular Hemoglobin 26.7 L 28.0-32.0 pg Mean Corpuscular Hemoglobin Concent 32.2 32.0-36.0 g/dL Red Cell Distribution Width 18.6 H 11.8-14.3 % Platelet Count 277 140-450 10^3/uL Mean Platelet Volume 8.8 6.9-10.8 fL Neutrophils (%) (Auto) 64.9 37.0-80.0 % Lymphocytes (%) (Auto) 24.0 10.0-50.0 % Monocytes (%) (Auto) 9.2 0.0-12.0 % Eosinophils (%) (Auto) 1.3 0.0-7.0 % Basophils (%) (Auto) 0.6 0.0-2.0 % Neutrophils # (Auto) 4.7 1.6-8.6 10 ^3/uL Lymphocytes # (Auto) 1.7 0.4-5.4 10 ^3/uL Monocytes # (Auto) 0.7 0-1.3 10 ^3/uL Eosinophils # (Auto) 0.1 0-0.8 10 ^3/uL Basophils # (Auto) 0 0-0.2 10 ^3/uL Nucleated Red Blood Cells 0.0 % Sodium Level 146 H 136-145 mmol/L Potassium Level 4.5 3.5-5.1 mmol/L Chloride Level 109 H 98-107 mmol/L Carbon Dioxide Level 29 20-31 mmol/L Anion Gap 8 5-15 Blood Urea Nitrogen 15 9-23 mg/dL Creatinine 0.99 0.700-1.30 mg/dL Glomerular Filtration Rate Calc 81 >90 mL/min BUN/Creatinine Ratio 15.2 10.0-20.0 Serum Glucose 95 74-106 mg/dL Calcium Level 9.0 8.7-10.4 mg/dL Total Bilirubin 0.3 0.2-1.0 mg/dL Aspartate Amino Transferase (AST) 24 13-40 U/L Alanine Aminotransferase (ALT) 13 7-40 U/L Alkaline Phosphatase 69 46-116 U/L B-Type Natriuretic Peptide 386.01 0-100 pg/mL Total Protein 7.0 5.7-8.2 g/dL Albumin 3.0 L 3.2-4.8 g/dL SEPSIS Sepsis Screen Date sepsis recognized/suspect: Jan 10, 2025 Time Sepsis recognized/suspect: 537 Recent Procedure: No On Antibiotic Therapy: No Respiratory Rate >20: No Heart Rate >90: No Temp<36 C (96.8 F) or >38.3 C: No SBP <90 or MAP <65 mmHG: No New Acute Mental Status Change: No Is the patient on CPAP, BIPAP,: No Physician Orders Director Quality Systems (01/10/25 ) Chest Portable (01/10/25 04:37) Troponin-I Hs (01/10/25 07:37) Electrocardigram (01/10/25 07:37) Mrsa Screen (01/10/25 05:59) Admit (01/10/25 08:) Allergies (01/10/25 08:28) Code Status (01/10/25 08:28) Oxygen Per Hour (01/10/25 08:28) Ondansetron Hcl (Zofran) (01/10/25 08:30) Docusate Sodium Capsule (Colace Capsule) (01/10/25 08:30) Complete Blood Count (01/11/25 04:00) Comprehensive Metabolic Panel (01/11/25 04:00) Npo (Nothing By Mouth) Diet (01/10/25 Breakfast) Pt Request For Service (01/10/25 08:) Echo 2d Mode Cardiac Dop (01/10/25 08:28) Condition: Serious (01/10/25 08:28) Acetaminophen Tablet (Tylenol Tablet) (01/10/25 08:30) Morphine Sulfate Injection (01/10/25 08:30) Sequential Compression Device (01/10/25 ) Nitroglycerin Sublingual (Ntrostat Subli (01/10/25 08:30) Morphine Sulfate Injection (01/10/25 08:30) Oxygen By Nasal Cannula (01/10/25:28) Stat Ekg For Chest Pain (01/10/25 08:28) Notify Of Changes From Base (01/10/25 08:28) Production Planner For 24 Hours (01/10/25 08:28) Emergency Dysrhythmia Protocol (01/10/25 08:28) Rhythm Strips Once Every Shift (01/10/25 08:28) Vital Signs Date Time Temp Pulse Resp B/P (MAP) Pulse Ox O2 Delivery O2 Flow Rate FiO2 01/10/25 08:05 74 01/10/25 06:29 71 01/10/25 06:15 140/87 01/10/25 05:43 98 Nasal Cannula* 2 28 01/10/25 05:36 80 20 97 Room Air* 0 21 01/10/25 05:36 98.1 80 18 125/82 (96) 97 98.1 01/10/25 05:15 145/92 01/10/25 05:15 145/92 01/10/25 04:58 74 01/10/25 04:34 74 01/10/25 04:25 98.6 88 18 171/83 98 98.6 Laboratory Tests Test 01/10/25 04:49 White Blood Count 7.2 10^3/uL (4.4-10.8) Medications Medications Dose Ordered Sig/Yvette Route Start Time Stop Time Status Last Admin Dose Admin Albuterol 2.5 mg ONCE ONCE NEB 01/10/25 05:15 01/10/25 05:16 DC 01/10/25 05:42 2.5 MG Aspirin 325 mg ONCE ONCE PO 01/10/25 05:15 01/10/25 05:16 DC 01/10/25 05:15 325 MG Furosemide 40 mg ONCE ONCE IV 01/10/25 05:15 01/10/25 05:16 DC 01/10/25 05:15 40 MG Ipratropium Salley 1 mg ONCE ONCE NEB 01/10/25 05:15 01/10/25 05:16 DC 01/10/25 05:42 1 MG Nitroglycerin 0.4 mg ONCE ONCE SL 01/10/25 05:15 01/10/25 05:16 DC 01/10/25 05:15 0.4 MG Assessment/Plan Assessment/Plan Assessment: Present on Admission: #acute chest pain left substernal, radiating to left arm and back, started at rest, non reproducible on physical exam: Workup in progress, acute cardiovascular emergencies to rule out #Recurrent Unstable angina, abnormal myocardial perfusion scan suggestive of ischemia in the inferolateral wall 01/08/25 #type 2 NSTEMI, likely demand mediated, uncontrolled hypertension likely trigger #ruled out STEMI, x2 EKG no acute signs of ST-elevation #Acute on chronic congestive heart failure, BNP 386 (obesity confounding factor) #Chronic hypoxic respiratory failure on 2 L of oxygen, COPD on home oxygen (2 L/min) #multiple PVCs, underlying electrolyte disorder #uncontrolled hypertension #mild to moderate protein energy malnutrition #grade 2 obesity, BMI 39.6 #borderline prolonged QTC, >450ms Known Conditions: #Heart failure with preserved ejection fraction, as per echo 08/2024, NYHA III #ACS s/p stents, no cardiac surgery, Coronary artery disease status post multiple PTCAs with stent placement #Presence of micra leadless pacemaker, paced ventricular rhythm noted in EKGs #aortic root enlargement #hypertensive heart disease with severe concentric LVH #medication non-adherence, prior history of recurrent leaving the hospital AMA, not have a PCP or supervisor riprap placing #hepatitis-C antibody positive, outpatient follow up with hepatitis-C titer yet to follow up #5.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, needs outpatient follow up /biopsy #chronic opioid dependent pain management #CKD stage IIIB #iron-deficiency, chronic, patient did not follow up outpatient for colonoscopy #normocytic normochromic anemia, baseline around 10, H&H stable no active bleeding #known vitamin-D deficiency #previously positive MRSA nares #dyslipidemia #Prior history of diabetes mellitus type 2, HbA1c, resolved, 5.1 (02/2024) #essential hypertension #COPD #prior history of stroke/ TIA #known history of CAD, prior CT reveals moderate atherosclerotic disease, coronary artery disease with prior GA and cardiac stents (x5) #prior history of bacteremia, ruled out vegetations with GENO/TTE 08/2024 #severe osteoarthritis, degenerative disc disease, noted in previous radiology #hepatic steatosis #bilateral benign simple renal cysts #Allergic to acetaminophen, to avoid Tylenol Plan: #Continue Dual antiplatelets with statin, trend troponin, repeat echo, check viral panel, UDS, ESR, CRP, Differential blood pressure in the arms, workup progress to r/o out pericarditis, aortic dissection, type 1 NSTEMI, STEMI, GERD, and musculoskeletal pain. #wean oxygen as tolerated, IV Lasix + IV albumin, high-protein diet, as albumin low , 3rd spacing. #aspirin and atorvastatin to continue, telemetry, trend troponin, in acute changes repeat EKG detailed 12 lead. #cardiac diet, salt restricted diet, fluid restriction 1200 cc per 24 hour with target blood pressure of 140/90. #trade show coordinator consult for establishing outpatient PCP and close follow up for prevention of recurrent hospitalizations. #GDMT optimization as tolerated, for HFpEF, Sprionolactone, Farxiga, with ARNI. #Continue home medications as tolerated PUD prophylaxis: protonix 40mg oral daily DVT prophylaxis: DAPT/SCD /brisk movement. Barriers to discharge: patient lives at home with sisterMaribel, [phone], History taken And case discussed after explicit permission from the patient. PT and SW consult as needed. PCP: None Specialist Relevant To Admission: Cardiology, if needed. not consulted. Case discussed with Dr. Key. Code Status: Full Code. Discussion For goals of care and clinical care needed total 29 minutes bedside. Patient remains admitted in the telemetry floor. Plan discussed with: Patient, Other (sister, RN Brian) My Orders Orders - MATEUSZ WELSH RESIDENT Procedure Category Date Status Time Admit ADMIT 01/10/25 Transmitted 08:28 Allergies ELLIE 01/10/25 In Process 08:28 Code Status CODE 01/10/25 Transmitted 08:28 Oxygen Per Hour RT 01/10/25 Transmitted 08:28 Ondansetron Hcl PHA 01/10/25 Transmitted (Zofran) 08:30 Docusate Sodium PHA 01/10/25 Transmitted Capsule (Colace 08:30 Complete Blood Count LAB 01/11/25 Verified 04:00 Comprehensive LAB 01/11/25 Verified Metabolic Panel 04:00 Npo (Nothing By DIET 01/10/25 Transmitted Mouth) Diet Breakfast Pt Request For Service PT 01/10/25 Logged 08:28 Echo 2d Mode Cardiac US 01/10/25 Logged DOP 08:28 Condition: Serious ELLIE 01/10/25 In Process 08:28 Acetaminophen Tablet PHA 01/10/25 Transmitted (Tylenol Tablet) 08:30 Morphine Sulfate PHA 01/10/25 Transmitted Injection 08:30 Sequential ELLIE 01/10/25 In Process Compression Device Nitroglycerin PHA 01/10/25 Transmitted Sublingual (Ntrostat 08:30 Morphine Sulfate PHA 01/10/25 Transmitted Injection 08:30 Oxygen By Nasal RT 01/10/25 Transmitted Cannula 08:28 Stat Ekg For Chest [facility] 01/10/25 In Process Pain 08:28 Notify Of Changes [facility] 01/10/25 In Process From Base 08:28 Production Planner For [facility] 01/10/25 In Process 24 Hours 08:28 Emergency Dysrhythmia [facility] 01/10/25 In Process Protocol 08:28 Rhythm Strips Once [facility] 01/10/25 In Process Every Shift 08:28 Date of Service: Jan 10, 2025 Billing Provider: SIMONE KEY MD Common Visit Codes: [id number] INP/OBS CARE (HIGH) Secondary Visit Codes: [id number] CARE PLAN 30 MINUTES MATEUSZ WELSH RESIDENT Jan 10, 2025 08:32
[2025-01-10] MEDS: ALBUMIN 5% 250 ML IV ONE (09:42)
[2025-01-10] MEDS ORDERED: ENOXAPARIN SOD 60 MG/0.6 ML SYRINGE SC SCH (10:00)
[2025-01-10] MEDS ORDERED: ALBUTEROL SULF 2.5 MG/0.5ML(0.5%) NEB SOLN NEB PRN (10:00)
[2025-01-10] MEDS: PANTOPRAZOLE 40 MG TAB PO SCH (10:18)
[2025-01-10] MEDS: ATORVASTATIN 20 MG TAB PO SCH (10:18)
[2025-01-10] MEDS: CLOPIDOGREL BISULFATE 75 MG TAB PO SCH (10:45)
[2025-01-10 11:19] LABS: Urine Protein, UAD Negative (Negative)
[2025-01-10 11:38] LABS: Amphetamine Screen, Urine Neg (NEGATIVE); Barbiturate Scree,Urine Neg (NEGATIVE); Benzodiazephine Screen, Urine Neg (NEGATIVE); Cannabinoid Screen, Urine Neg (NEGATIVE); Cocaine Screen, Urine Neg (NEGATIVE); Opiate Scree,Urine Neg (NEGATIVE); Phencyclidine Screen, Urine Neg (NEGATIVE)
[2025-01-10] MEDS: ALBUTEROL SULF 2.5 MG/0.5ML(0.5%) NEB SOLN NEB SCH (11:50)
[2025-01-10] MEDS: Ensure HIGH Protein Chocolate 8oz Bottle PO SCH (12:00)
[2025-01-10] MEDS: MORPHINE SULFATE INJ 2 MG/ml SYRG IV PRN (15:57)
[2025-01-10 16:30] LABS: COVID19 ANTIGEN SOFIA FIA NEGATIVE (NEGATIVE)
[2025-01-11] VITALS (14 sets, daily range): BP systolic 120–138; BP diastolic 55–79; PULSE 56–102; RESP 16–20; TEMP 97.6–98.7; O2SAT 95–100
[2025-01-11] MEDS: MUPIROCIN 2% OINT 15gm or 22gm FOR MRSA NARES EACHNOSTRI SCH (00:09)
[2025-01-11] MEDS: MORPHINE SULFATE INJ 2 MG/ml SYRG ONE ×2 (05:01→13:44)
[2025-01-11 07:15] LABS: Hematocrit 30.1 % (41.0-53.0); Hemoglobin 9.5 g/dL (13.5-17.5); Mean Corpuscular Hemoglobin 26.2 pg (28.0-32.0); Mean Corpuscular Volume 83.1 fL (80.0-100.0); Nucleated Red Blood Cells % 0.1 %
[2025-01-11 07:52] LABS: Alkaline Phosphatase 53 U/L (46-116); Anion Gap 11 (5-15); BUN/Creatinine Ratio 16.7 (10.0-20.0); Blood Urea Nitrogen 19 mg/dL (9-23); Calcium 8.8 mg/dL (8.7-10.4); Carbon Dioxide 29 mmol/L (20-31); Potassium 3.8 mmol/L (3.5-5.1); Total Protein 6.7 g/dL (5.7-8.2)
[2025-01-11 07:53] LABS: Bilirubin, Total 0.3 mg/dL (0.2-1.0)
[2025-01-11 07:56] LABS: Alanine Aminotransferase 9 U/L (7-40); Albumin 2.9 g/dL (3.2-4.8); Chloride 108 mmol/L (98-107); Glucose 126 mg/dL (74-106); Sodium 148 mmol/L (136-145)
[2025-01-11] MEDS: FUROSEMIDE 40 MG/4 ML VIAL IV SCH (09:25)
--- NOTE | 2025-01-11 16:38 | DVHPN2 ---
Subjective Patient is here for chest pain Changes from previous H/P or p: No Changes Eyes: No Pain, No Vision change, No Conjunctivae inflammation, No Eyelid inflammation, No Other, No Redness ENT: No Ear pain, No Ear discharge, No Nose pain, No Nose discharge, No Nose congestion, No Mouth pain, No Mouth swelling, No Throat pain, No Throat swelling, No Other Cardiovascular: Chest Pain, Palpitations, Orthopnea; No Paroxysmal Noc. Dyspnea, No Edema, No Lt Headedness, No Other Respiratory: Cough; No Dry; Shortness of breath, SOB with excertion; No Wheezing, No Hemoptysis, No Pleuritic Pain, No Sputum, No Other Gastrointestinal: No Nausea, No Vomiting, No Abdominal Pain, No Diarrhea, No Constipation, No Melena, No Hematochezia, No Other Genitourinary: No Dysuria, No Frequency, No Incontinence, No Hematuria, No Retention, No Other Musculoskeletal: No other, No neck pain, No shoulder pain, No arm pain, No back pain, No hand pain, No leg pain, No foot pain Skin: No Rash, No Lesions, No Jaundice, No Bruising, No Other Objective Vitals Vital Signs Date Time Temp Pulse Resp B/P (MAP) Pulse Ox O2 Delivery O2 Flow Rate FiO2 01/11/25 13:46 94 19 130/76 01/11/25 12:50 98.5 97 98.5 01/11/25 08:08 Nasal Cannula 2.0 01/11/25 08:08 28 Intake/Output Intake and Output 01/11/25 07:00 Intake Total 490 ml Output Total 300 ml Balance 190 ml Intake Oral 240 ml IV Total 250 ml Output Urine Total 300 ml Exam HEENT pupils are reactive Neck is supple CV is S1-S2 regular rate and rhythm Respiratory are clear GI positive bowel sound Extremity no edema RCP no motor deficit Medications Current Medications Medications Dose Ordered Sig/Yvette Route Start Time Stop Time Status Last Admin Dose Admin Ondansetron HCl 4 mg Q4HP PRN IV 01/10/25 08:30 Docusate Sodium 100 mg BIDPRN PRN PO 01/10/25 08:30 Acetaminophen 650 mg Q6HP PRN PO 01/10/25 08:30 UNV Morphine Sulfate 2 mg Q4HPRN PRN IV 01/10/25 08:30 01/11/25 13:46 2 MG Nitroglycerin 0.4 mg Q5MINP PRN SL 01/10/25 08:30 Morphine Sulfate 2 mg Q30M PRN IV 01/10/25 08:30 Enteral Nutritional Formula 240 ml TIDWM PO 01/10/25 12:00 01/11/25 12:00 240 ML Atorvastatin Calcium 40 mg HS PO 01/10/25 09:15 01/11/25 00:03 40 MG Clopidogrel Bisulfate 75 mg DAILY PO 01/10/25 10:00 01/11/25 09:23 75 MG Aspirin 81 mg DAILY PO 01/11/25 10:00 01/11/25 09:45 81 MG Amlodipine Besylate 10 mg DAILY PO 01/10/25 10:00 01/11/25 09:22 10 MG Pantoprazole Sodium 40 mg DAILY PO 01/10/25 10:00 01/11/25 09:22 40 MG Tramadol HCl 50 mg Q6HP PRN PO 01/10/25 10:00 Bupropion HCl 150 mg DAILY PO 01/10/25 10:25 01/10/25 10:44 150 MG Furosemide 40 mg DAILY IV 01/11/25 10:00 Albuterol 1.25 mg Q6HWA NEB 01/10/25 12:00 01/11/25 12:01 1.25 MG Mupirocin 1 applic BID EACHNOSTRI 01/10/25 22:00 01/15/25 21:59 01/11/25 09:45 1 APPLIC Laboratory Results Laboratory Tests 01/11/25 06:20 Chemistry Test 01/11/25 06:20 Albumin 2.9 g/dL (3.2-4.8) L Calcium Level 8.8 mg/dL (8.7-10.4) Total Protein 6.7 g/dL (5.7-8.2) LFT Test 01/11/25 06:20 Alanine Aminotransferase (ALT) 9 U/L (7-40) Alkaline Phosphatase 53 U/L (46-116) Aspartate Amino Transferase (AST) 18 U/L (13-40) Total Bilirubin 0.3 mg/dL (0.2-1.0) Urinalysis Test 01/10/25 09:00 Urine Color Colorless (Yellow) Urine Clarity Clear (Clear) Urine pH 5.0 (5.0-9.0) Urine Specific [place] 1.007 (1.001-1.035) Urine Protein Negative (Negative) Urine Ketones Negative (Negative) Urine Blood Negative /uL (Negative) Urine Nitrite Negative (Negative) Urine Bilirubin Negative (Negative) Urine Urobilinogen Normal mg/dL (Negative) Urine Leukocyte Esterase Negative /uL (Negative) Urine RBC None seen /hpf (0 - 3) Urine Microscopic WBC < 1 /HPF (0-3) Urine Squamous Epithelial Cells Few /hpf (<5) Urine Bacteria None seen /hpf (None Seen) Urine Glucose Normal mg/dL (Normal) Microbiology Microbiology Date/Time Source Procedure Growth Status 01/10/25 22:23 Nose MRSA Screen - Final Methicillin Resistant S.aureus Complete Assessment/Plan Assessment/Plan 70-year-old male with a known history of CAD status post PCI with a five stents, congestive heart failure with diastolic dysfunction, chronic respiratory failure on home O2, COPD, hypertension who initially presented to hospital with the chest pain found to have 1. Chest pain rule out acute [place] 2. Known CAD status post PCI with five stents 3. Congestive heart failure with diastolic dysfunction with a mild decompensation 4. Bilateral pleural effusion 5. Hypertension 6. Chronic respiratory failure on home O2 7. COPD not in exacerbation -continue O2 supplementation, med nebs, 2D echo cardiology consultation Plan discussed with: Patient My Orders Orders - WESLEY ROMEO MD Procedure Category Date Status Time * Cardiology Consult CONS 01/11/25 Transmitted 14:36 Date of Service: Jan 11, 2025 Billing Provider: WESLEY ROMEO MD Common Visit Codes: [id number] INP/OBS CARE(HIGH) WESLEY ROMEO MD Jan 11, 2025 16:38
[2025-01-12] VITALS (13 sets, daily range): BP systolic 125–156; BP diastolic 61–75; PULSE 61–82; RESP 16–20; TEMP 97.4–98.6; O2SAT 92–100
[2025-01-12] MEDS: FUROSEMIDE 40 MG/4 ML VIAL IV ONE (10:00)
[2025-01-12 10:17] LABS: Hepatitis B Surface Antigen Negative (Negative)
--- NOTE | 2025-01-12 11:11 | DVHINCON2 ---
Date Seen: Jan 12, 2025 Referring Physician MD Toby Reason for Consultation Chest pain History of Present Illness This is a 70-year-old man who presented to the emergency room via EMS with a chief complaint of chest pain for three days. Describes his chest pain as substernal, radiating to his lower back/left upper extremity, pressure-like, non provoked, associated with mild SOB, and worse with a productive cough with clear sputum. Per patient, he took three NTG SL 0.4 mg at home with no relief of symptoms. Follows up in the outpatient setting with Dr. Montesinos. Significant past medical history includes HFpEF, coronary artery disease status post multiple PCIs including five DESTINY on DAPT, sick sinus syndrome status post micra leadless pacemaker implantation, hypertension, dyslipidemia, chronic kidney disease, cerebrovascular accident, chronic obstructive pulmonary disease, diabetes mellitus, obstructive sleep apnea, seizure disorder, thyroidectomy, chronic pain syndrome, morbid obesity. Past Medical History Past medical history reviewed. No other significant than mentioned above. Past Surgical History Multiple PTCAs with stent placement x 5 DESITNY Tonsillectomy Family History: Alcoholism G8 MOTHER, Onset:Unknown Cancer G8 SISTER (uterine cancer) Cardiovascular disease G8 SISTER Cerebrovascular accident (CVA) G8 SISTER Chronic obstructive pulmonary disease G8 SISTER Depression G8 SISTER Diabetes mellitus G8 SISTER G8 SISTER Family history: Cardiovascular disease Family history: Depression (situation) Family history: Hypertension Family history: Hypertension Glaucoma MATERNAL GPA Sepsis Stroke Stroke Family History Family history reviewed. Social History Denies the use of illicit drugs, alcohol, or tobacco use. Lives at home with sister who is the caregiver. Allergies: Coded Allergies: Acetaminophen (Verified Allergy, Unknown, 12/13/24) Home Meds Active Scripts Furosemide (Lasix) 40 Mg Tab, 40 MG PO BID for 30 Days, #60 TAB Prov:BK LAGUERRE MD 05/29/24 Ranolazine (Ranexa) 500 Mg Tab, 500 MG PO BID for 30 Days, #60 TAB Prov:JUSTIN DUARTE MD 10/22/18 Reported Medications Nitroglycerin (Nitrostat) 0.4 Mg Sub, 1 TAB SL for 30 Days, #50 01/12/25 Senna (Senna) 8.6 Mg Tab, 2-4 TAB PO QHSP PRN for FOR CONSTIPATION for 22 Days, #90 01/12/25 Methocarbamol (Methocarbamol) 500 Mg Tab, 1.5 TAB PO Q8HR PRN for 13 Days, #40 01/12/25 Amlodipine Besylate (Amlodipine Besylate) 10 Mg Tab, 1 TAB PO DAILY for 90 Days, #90 01/12/25 Budesonide-Formoterol Fumarate (Budesonide/Formoterol Fum 160-4.5 Mcg/Act) 1 Aer Aer, 2 PUFF IN BID for 30 Days, #10.2 02/26/24 Midodrine HCl (Midodrine Hydrochloride) 5 Mg Tab, 1 TAB PO TID for 30 Days, #90 02/26/24 Potassium Chloride (Potassium Chloride ER) 10 Meq Tab, 1 TAB PO BID for 30 Days, #60 02/26/24 Aspirin (Aspirin Regular Strength) 325 Mg Tab, 1 TAB PO DAILY for 30 Days, #30 02/26/24 Lactulose (Lactulose) 10 Gm/15 Ml Rachna, 15 ML PO BID PRN for 15 Days, #473 02/26/24 Atorvastatin Calcium (Lipitor) 80 Mg Tab, 1 TAB PO DAILY for 30 Days, #30 02/26/24 Levetiracetam (Levetiracetam) 750 Mg Tab, 1 TAB PO BID for 30 Days, #60 02/26/24 Lidocaine (Lidocaine Topical Pain Pa) 4 % Pad, 1 PATCH TOP DAILY 06/28/23 Gabapentin (Gabapentin) 800 Mg Tab, 1 TAB PO BID for 30 Days, #60 06/28/23 Ipratropium-Albuterol (COMBIVENT RESPIMAT) Respimat Aer, 1 PUFF INH QID 05/14/23 Dapagliflozin Propanediol (Farxiga) 10 Mg Tab, 1 TAB PO DAILY for 30 Days, #30 05/14/23 Beclomethasone Dipropionate (Qvar Redihaler) 80 Mcg/Act Aer, 1 PUFF INH BID for 30 Days, #10.6 02/27/23 Silver Sulfadiazine (Silver Sulfadiazine) 1 % Cre, 1 APPLIC TOP DAILY for 30 Days, #50 02/27/23 Oxybutynin Chloride (Ditropan Xl) 5 Mg Tab, 15 MG PO DAILY for 30 Days, #30 02/27/23 Trazodone Hcl (Trazodone Hcl) 100 Mg Tab, 4 TAB PO HS for 30 Days, #120 02/27/23 Clopidogrel Bisulfate (CLOPIDOGREL) 75 Mg Tab, 1 TAB PO DAILY for 30 Days, #30 02/07/23 Pantoprazole Sodium Sesquihydr (Pantoprazole Sodium) 40 Mg Tab, 1 TAB PO QAM 02/07/23 Bupropion Hcl (Bupropion Hcl) 75 Mg Tab, 2 TAB PO DAILY for 30 Days, #60 11/10/17 Home Meds Home medications reviewed. Review of Systems Constitutional: No symptom reported Ears, Nose, & Throat: No symptom reported Eyes: No symptom reported Neurological: No symptoms reported Pulmonary/Respiratory: SOB, productive cough Cardiovascular: Chest pain Gastrointestinal: No symptom reported Genitourinary: No symptom reported Musculoskeletal: No symptom reported Skin: No symptom reported Psychiatric: No symptom reported Endocrine: No symptom reported Hemotologic/Lymphatic: No symptom reported Vital Signs Vital Signs Date Time Temp Pulse Resp B/P (MAP) Pulse Ox O2 Delivery O2 Flow Rate FiO2 01/12/25 09:00 97.8 67 20 129/68 (88) 95 97.8 01/12/25 06:51 Nasal Cannula* 2 28 Physical Exam General Appearance: Cooperative. Chronically ill. Morbidly obese. Mild acute respiratory distress Head Exam: Normal inspection Neck Exam: Normal inspection. Non-tender. Normal alignment Pulmonary/Respiratory: Chest non-tender. Crackles to bilateral breath sounds Cardiovascular/Chest: Regular rate and rhythm. S1, S2. Sinus rhythm with PVCs and T-wave inversion to inferior leads. No murmurs. No JVD. Peripheral Pulses: 2+ Radial (R). 2+ Radial (L). 2+ Pedal (R). 2+ Pedal (L) Abdominal Exam: Normal bowel sound Ankle Exam: Positive ankle edema Lower extremities: Positive lower extremity pitting edema, 2+ Neuro/Mental Status: A&O x3. Coherent Thoughts/Psych: Normal thought pattern. Appropriate mood and affect. Good judgement and insight Appearance: Mild acute respiratory distress Skin Exam: Normal inspection. Normal color. Warm. Dry Labs/Diagnostic Data Labs Test 01/11/25 06:20 01/10/25 23:14 01/10/25 14:58 01/10/25 09:50 Range/Units White Blood Count 6.4 4.4-10.8 10^3/uL Red Blood Count 3.62 L 4.5-5.90 10^6/uL Hemoglobin 9.5 L 13.5-17.5 g/dL Hematocrit 30.1 L 41.0-53.0 % Mean Corpuscular Volume 83.1 80.0-100.0 fL Mean Corpuscular Hemoglobin 26.2 L 28.0-32.0 pg Mean Corpuscular Hemoglobin Concent 31.6 L 32.0-36.0 g/dL Red Cell Distribution Width 19.0 H 11.8-14.3 % Platelet Count 266 140-450 10^3/uL Mean Platelet Volume 9.0 6.9-10.8 fL Neutrophils (%) (Auto) 66.5 37.0-80.0 % Lymphocytes (%) (Auto) 20.6 10.0-50.0 % Monocytes (%) (Auto) 10.4 0.0-12.0 % Eosinophils (%) (Auto) 1.9 0.0-7.0 % Basophils (%) (Auto) 0.6 0.0-2.0 % Neutrophils # (Auto) 4.3 1.6-8.6 10 ^3/uL Lymphocytes # (Auto) 1.3 0.4-5.4 10 ^3/uL Monocytes # (Auto) 0.7 0-1.3 10 ^3/uL Eosinophils # (Auto) 0.1 0-0.8 10 ^3/uL Basophils # (Auto) 0 0-0.2 10 ^3/uL Nucleated Red Blood Cells 0.1 % Sodium Level 148 H 136-145 mmol/L Potassium Level 3.8 3.5-5.1 mmol/L Chloride Level 108 H 98-107 mmol/L Carbon Dioxide Level 29 20-31 mmol/L Anion Gap 11 5-15 Blood Urea Nitrogen 19 9-23 mg/dL Creatinine 1.14 0.700-1.30 mg/dL Glomerular Filtration Rate Calc 69 >90 mL/min BUN/Creatinine Ratio 16.7 10.0-20.0 Serum Glucose 126 H 74-106 mg/dL Calcium Level 8.8 8.7-10.4 mg/dL Total Bilirubin 0.3 0.2-1.0 mg/dL Aspartate Amino Transferase (AST) 18 13-40 U/L Alanine Aminotransferase (ALT) 9 7-40 U/L Alkaline Phosphatase 53 46-116 U/L Total Protein 6.7 5.7-8.2 g/dL Albumin 2.9 L 3.2-4.8 g/dL Hepatitis B Surface Antigen Negative Negative Influenza Type A Antigen Negative Negative Influenza Type B Antigen Negative Negative SARS-CoV-2 Antigen (Rapid) Negative NEGATIVE Erythrocyte Sedimentation Rate 71 H 0-20 mm/hr Troponin I High Sensitivity 69 *H </=54 ng/L Test 01/10/25 09:00 01/10/25 07:50 01/10/25 04:49 Range/Units Urine Color Colorless Yellow Urine Clarity Clear Clear Urine pH 5.0 5.0-9.0 Urine Specific [place] 1.007 1.001-1.035 Urine Protein Negative Negative Urine Ketones Negative Negative Urine Blood Negative Negative /uL Urine Nitrite Negative Negative Urine Bilirubin Negative Negative Urine Urobilinogen Normal Negative mg/dL Urine Leukocyte Esterase Negative Negative /uL Urine RBC None seen 0 - 3 /hpf Urine Microscopic WBC < 1 0-3 /HPF Urine Squamous Epithelial Cells Few <5 /hpf Urine Bacteria None seen None Seen /hpf Urine Glucose Normal Normal mg/dL Urine Opiates Screen Neg NEGATIVE Urine Fentanyl Screen Neg NEGATIVE Urine Barbiturates Screen Neg NEGATIVE Urine Phencyclidine Screen Neg NEGATIVE Urine Amphetamines Screen Neg NEGATIVE Urine Benzodiazepines Screen Neg NEGATIVE Urine Cocaine Screen Neg NEGATIVE Urine Cannabinoids Screen Neg NEGATIVE Magnesium Level 2.0 1.6-2.6 mg/dL C-Reactive Protein High Sensitivity 2.79 H <1.0 mg/dL Thyroid Stimulating Hormone (TSH) 1.95 0.55-4.78 uIU/mL B-Type Natriuretic Peptide 386.01 0-100 pg/mL Microbiology Date/Time Source Procedure Growth Status 01/10/25 22:23 Nose MRSA Screen - Final Methicillin Resistant S.aureus Complete Assessment Acute on chronic decompensated HFpEF, NYHA Class III NSTEMI, likely type II secondary to above Coronary artery disease status post multiple PTCAs with stent placement x 5DES (on DAPT) Presence of micra leadless pacemaker Hypertension Dyslipidemia Chronic pain syndrome Morbid obesity * Transthoracic echocardiogram (09/13/2024) revealed LVEF is about 60% with normal RV function * Transesophageal echocardiogram (09/15/2024) revealed LVEF 60% with severe LVH and no evidence of vegetations * Twelve lead electrocardiograms x2 revealed a sinus rhythm suggestive of LVH with associated PVCs and T-wave inversion to inferior leads * Troponin levels trending up with latest at 69 ng/L. BNP level 386 pg/mL Plan/Recommendation (Dr. Montesinos) Initiate preload and afterload reduction as tolerated, strict I&Os, fluid restrictions, and daily weight. Continue DAPT and lipid lowering agent given history of coronary artery disease with multiple stent placement. Initiate GDMT for HFpEF and up-titrate as tolerated. Initiate Ranexa therapy given chronic angina. Initiate DVT/VTE prophylaxis. Patient is to follow up in the outpatient setting with Dr. Montesinos as scheduled. This is a further cardiac workup indicated at this time. Kindly call if in need of further recommendations. Thank you for allowing us to participate in this patient's care. This medical document was created using an electronic medical record system with voice recognition software and computerized dictation system. Although this document has been carefully reviewed, there might still be some phonetic and typographical errors. Occasional wrong-word or ``sound-alike substitutions may have occurred due to the inherent limitations of voice recognition software. These areas are purely typographical due to imperfections of the software programs and do not reflect any compromise in the patient's medical care. Please read the chart carefully and recognize, using context, where these substitutions have occurred. Plan discussed with: Patient, Other NYHA Physical activity limitations: Class4(Severe)discomfort (w any activit,symptoms at rest) Date of Service: Jan 12, 2025 Billing Provider: CHRISTIANO TUCKER Cardiology Common Codes: 21811-[id number] INP/OBS CARE (High) CHRISTIANO TUCKER Jan 12, 2025 11:11
[2025-01-12] MEDS: ENOXAPARIN SOD 40 MG/0.4 ML SYRINGE SC ONE (11:15)
[2025-01-12 12:08] LABS: Hepatitis C Antibody Positive (Negative)
--- NOTE | 2025-01-12 15:51 | DVHINCON2 ---
Date Seen: Jan 12, 2025 Referring Physician MD Toby Reason for Consultation Chest pain History of Present Illness This is a 70-year-old male with a PMH of HFpEF, coronary artery disease status post multiple PCIs including five DESTINY on DAPT, sick sinus syndrome status post micra leadless pacemaker implantation, hypertension, dyslipidemia, chronic kidney disease, cerebrovascular accident, chronic obstructive pulmonary disease, diabetes mellitus, obstructive sleep apnea, seizure disorder, thyroidectomy, chronic pain syndrome, morbid obesity who presented to the ED via EMS with a complaint of chest pain for three days. Describes his chest pain as substernal, radiating to his lower back/left upper extremity, pressure-like, non provoked, associated with mild SOB, and worse with a productive cough with clear sputum. Per patient, he took three NTG SL 0.4 mg at home with no relief of symptoms. Twelve lead electrocardiograms x2 revealed a sinus rhythm suggestive of LVH with associated PVCs and T-wave inversion to inferior leads. Troponin levels trending up with latest at 69 ng/L. BNP level 386 pg/mL. Patient was admitted to the hospital. I am asked to consult on this patient. Past Medical History Past medical history reviewed. No other significant than mentioned above. Past Surgical History Multiple PTCAs with stent placement x 5 DESTINY Tonsillectomy Family History: Alcoholism G8 MOTHER, Onset:Unknown Cancer G8 SISTER (uterine cancer) Cardiovascular disease G8 SISTER Cerebrovascular accident (CVA) G8 SISTER Chronic obstructive pulmonary disease G8 SISTER Depression G8 SISTER Diabetes mellitus G8 SISTER G8 SISTER Family history: Cardiovascular disease Family history: Depression (situation) Family history: Hypertension Family history: Hypertension Glaucoma MATERNAL GPA Sepsis Stroke Stroke Allergies: Coded Allergies: Acetaminophen (Verified Allergy, Unknown, 12/13/24) Home Meds Active Scripts Furosemide (Lasix) 40 Mg Tab, 40 MG PO BID for 30 Days, #60 TAB Prov:BK LAGUERRE MD 05/29/24 Ranolazine (Ranexa) 500 Mg Tab, 500 MG PO BID for 30 Days, #60 TAB Prov:JUSTIN DUARTE MD 10/22/18 Reported Medications Nitroglycerin (Nitrostat) 0.4 Mg Sub, 1 TAB SL for 30 Days, #50 01/12/25 Senna (Senna) 8.6 Mg Tab, 2-4 TAB PO QHSP PRN for FOR CONSTIPATION for 22 Days, #90 01/12/25 Methocarbamol (Methocarbamol) 500 Mg Tab, 1.5 TAB PO Q8HR PRN for 13 Days, #40 01/12/25 Amlodipine Besylate (Amlodipine Besylate) 10 Mg Tab, 1 TAB PO DAILY for 90 Days, #90 01/12/25 Budesonide-Formoterol Fumarate (Budesonide/Formoterol Fum 160-4.5 Mcg/Act) 1 Aer Aer, 2 PUFF IN BID for 30 Days, #10.2 02/26/24 Midodrine HCl (Midodrine Hydrochloride) 5 Mg Tab, 1 TAB PO TID for 30 Days, #90 02/26/24 Potassium Chloride (Potassium Chloride ER) 10 Meq Tab, 1 TAB PO BID for 30 Days, #60 02/26/24 Aspirin (Aspirin Regular Strength) 325 Mg Tab, 1 TAB PO DAILY for 30 Days, #30 02/26/24 Lactulose (Lactulose) 10 Gm/15 Ml Rachna, 15 ML PO BID PRN for 15 Days, #473 02/26/24 Atorvastatin Calcium (Lipitor) 80 Mg Tab, 1 TAB PO DAILY for 30 Days, #30 02/26/24 Levetiracetam (Levetiracetam) 750 Mg Tab, 1 TAB PO BID for 30 Days, #60 02/26/24 Lidocaine (Lidocaine Topical Pain Pa) 4 % Pad, 1 PATCH TOP DAILY 06/28/23 Gabapentin (Gabapentin) 800 Mg Tab, 1 TAB PO BID for 30 Days, #60 06/28/23 Ipratropium-Albuterol (COMBIVENT RESPIMAT) Respimat Aer, 1 PUFF INH QID 05/14/23 Dapagliflozin Propanediol (Farxiga) 10 Mg Tab, 1 TAB PO DAILY for 30 Days, #30 05/14/23 Beclomethasone Dipropionate (Qvar Redihaler) 80 Mcg/Act Aer, 1 PUFF INH BID for 30 Days, #10.6 02/27/23 Silver Sulfadiazine (Silver Sulfadiazine) 1 % Cre, 1 APPLIC TOP DAILY for 30 Days, #50 02/27/23 Oxybutynin Chloride (Ditropan Xl) 5 Mg Tab, 15 MG PO DAILY for 30 Days, #30 02/27/23 Trazodone Hcl (Trazodone Hcl) 100 Mg Tab, 4 TAB PO HS for 30 Days, #120 02/27/23 Clopidogrel Bisulfate (CLOPIDOGREL) 75 Mg Tab, 1 TAB PO DAILY for 30 Days, #30 02/07/23 Pantoprazole Sodium Sesquihydr (Pantoprazole Sodium) 40 Mg Tab, 1 TAB PO QAM 02/07/23 Bupropion Hcl (Bupropion Hcl) 75 Mg Tab, 2 TAB PO DAILY for 30 Days, #60 11/10/17 Current Medications Current Medications Medications (Trade) Dose Ordered Sig/Yvette Route PRN Reason Start Time Stop Time Status Last Admin Furosemide (Lasix Injection) 40 mg BIDD IV 01/12/25 18:00 Empaglifozin (Jardiance) 10 mg DAILY PO 01/13/25 10:00 Metoprolol Succinate (Toprol Xl) 25 mg DAILY PO 01/13/25 10:00 Sacubitril/ Valsartan (Entresto 24-26 Mg tab) 0.5 tab BID PO 01/12/25 22:00 Enoxaparin Sodium (Lovenox) 40 mg DAILY SC 01/13/25 10:00 Ranolazine (Ranexa ER) 500 mg BID PO 01/12/25 22:00 Review of Systems Constitutional: No symptom reported Ears, Nose, & Throat: No symptom reported Eyes: No symptom reported Neurological: No symptoms reported Pulmonary/Respiratory: SOB, productive cough Cardiovascular: Chest pain Gastrointestinal: No symptom reported Genitourinary: No symptom reported Musculoskeletal: No symptom reported Skin: No symptom reported Psychiatric: No symptom reported Endocrine: No symptom reported Hemotologic/Lymphatic: No symptom reported Vital Signs Vital Signs Date Time Temp Pulse Resp B/P (MAP) Pulse Ox O2 Delivery O2 Flow Rate FiO2 01/12/25 13:07 97.4 61 19 156/75 (102) 98 97.4 01/12/25 12:38 Nasal Cannula 2.0 01/12/25 12:38 28 Physical Exam GENERAL: Alert and oriented x 3. Chronically ill. Morbidly obese. Mild acute respiratory distress. EYES: PERRL, EOMI. Anicteric. HENT: Moist mucous membranes. LUNGS: Crackles to bilateral breath sounds. CARDIOVASCULAR: Regular rate and rhythm. ABDOMEN: Soft, non-tender and non-distended. EXTREMITIES: 2+ BLE edema. NEUROLOGIC: No focal neurological deficits. SKIN: Warm, dry. Labs/Diagnostic Data Labs Test 01/11/25 06:20 01/10/25 23:14 01/10/25 14:58 01/10/25 09:50 Range/Units White Blood Count 6.4 4.4-10.8 10^3/uL Red Blood Count 3.62 L 4.5-5.90 10^6/uL Hemoglobin 9.5 L 13.5-17.5 g/dL Hematocrit 30.1 L 41.0-53.0 % Mean Corpuscular Volume 83.1 80.0-100.0 fL Mean Corpuscular Hemoglobin 26.2 L 28.0-32.0 pg Mean Corpuscular Hemoglobin Concent 31.6 L 32.0-36.0 g/dL Red Cell Distribution Width 19.0 H 11.8-14.3 % Platelet Count 266 140-450 10^3/uL Mean Platelet Volume 9.0 6.9-10.8 fL Neutrophils (%) (Auto) 66.5 37.0-80.0 % Lymphocytes (%) (Auto) 20.6 10.0-50.0 % Monocytes (%) (Auto) 10.4 0.0-12.0 % Eosinophils (%) (Auto) 1.9 0.0-7.0 % Basophils (%) (Auto) 0.6 0.0-2.0 % Neutrophils # (Auto) 4.3 1.6-8.6 10 ^3/uL Lymphocytes # (Auto) 1.3 0.4-5.4 10 ^3/uL Monocytes # (Auto) 0.7 0-1.3 10 ^3/uL Eosinophils # (Auto) 0.1 0-0.8 10 ^3/uL Basophils # (Auto) 0 0-0.2 10 ^3/uL Nucleated Red Blood Cells 0.1 % Sodium Level 148 H 136-145 mmol/L Potassium Level 3.8 3.5-5.1 mmol/L Chloride Level 108 H 98-107 mmol/L Carbon Dioxide Level 29 20-31 mmol/L Anion Gap 11 5-15 Blood Urea Nitrogen 19 9-23 mg/dL Creatinine 1.14 0.700-1.30 mg/dL Glomerular Filtration Rate Calc 69 >90 mL/min BUN/Creatinine Ratio 16.7 10.0-20.0 Serum Glucose 126 H 74-106 mg/dL Calcium Level 8.8 8.7-10.4 mg/dL Total Bilirubin 0.3 0.2-1.0 mg/dL Aspartate Amino Transferase (AST) 18 13-40 U/L Alanine Aminotransferase (ALT) 9 7-40 U/L Alkaline Phosphatase 53 46-116 U/L Total Protein 6.7 5.7-8.2 g/dL Albumin 2.9 L 3.2-4.8 g/dL Hepatitis B Surface Antigen Negative Negative Hepatitis C Antibody Positive *A Negative Influenza Type A Antigen Negative Negative Influenza Type B Antigen Negative Negative SARS-CoV-2 Antigen (Rapid) Negative NEGATIVE Erythrocyte Sedimentation Rate 71 H 0-20 mm/hr Troponin I High Sensitivity 69 *H </=54 ng/L Test 01/10/25 09:00 01/10/25 07:50 01/10/25 04:49 Range/Units Urine Color Colorless Yellow Urine Clarity Clear Clear Urine pH 5.0 5.0-9.0 Urine Specific [place] 1.007 1.001-1.035 Urine Protein Negative Negative Urine Ketones Negative Negative Urine Blood Negative Negative /uL Urine Nitrite Negative Negative Urine Bilirubin Negative Negative Urine Urobilinogen Normal Negative mg/dL Urine Leukocyte Esterase Negative Negative /uL Urine RBC None seen 0 - 3 /hpf Urine Microscopic WBC < 1 0-3 /HPF Urine Squamous Epithelial Cells Few <5 /hpf Urine Bacteria None seen None Seen /hpf Urine Glucose Normal Normal mg/dL Urine Opiates Screen Neg NEGATIVE Urine Fentanyl Screen Neg NEGATIVE Urine Barbiturates Screen Neg NEGATIVE Urine Phencyclidine Screen Neg NEGATIVE Urine Amphetamines Screen Neg NEGATIVE Urine Benzodiazepines Screen Neg NEGATIVE Urine Cocaine Screen Neg NEGATIVE Urine Cannabinoids Screen Neg NEGATIVE Magnesium Level 2.0 1.6-2.6 mg/dL C-Reactive Protein High Sensitivity 2.79 H <1.0 mg/dL Thyroid Stimulating Hormone (TSH) 1.95 0.55-4.78 uIU/mL B-Type Natriuretic Peptide 386.01 0-100 pg/mL Microbiology Date/Time Source Procedure Growth Status 01/10/25 22:23 Nose MRSA Screen - Final Methicillin Resistant S.aureus Complete Assessment Acute on chronic decompensated HFpEF, NYHA Class III. NSTEMI, likely type II secondary to above. Coronary artery disease status post multiple PTCAs with stent placement x 5DES (on DAPT). Presence of micra leadless pacemaker. Hypertension. Dyslipidemia. Chronic pain syndrome. Morbid obesity. Plan/Recommendation I agree with your ongoing assessment and care of plan. Patient has been seen by Jeanna Aranda NP on my behalf. We have discussed the plan with the patient. Transthoracic echocardiogram (09/13/2024) revealed LVEF is about 60% with normal RV function. Transesophageal echocardiogram (09/15/2024) revealed LVEF 60% with severe LVH and no evidence of vegetations. Twelve lead electrocardiograms x2 revealed a sinus rhythm suggestive of LVH with associated PVCs and T-wave inversion to inferior leads. Troponin levels trending up with latest at 69 ng/L. BNP level 386 pg/mL. Initiate preload and afterload reduction as tolerated, strict I&Os, fluid restrictions, and daily weight. Continue DAPT and lipid lowering agent given history of coronary artery disease with multiple stent placement. Initiate GDMT for HFpEF and up-titrate as tolerated. Initiate Ranexa therapy given chronic angina. Initiate DVT/VTE prophylaxis. Patient is to follow up with me in outpatient setting as scheduled. Additional plan as per the hospital course. Plan discussed with: Patient NYHA Physical activity limitations: Class4(Severe)discomfort Date of Service: Jan 12, 2025 Billing Provider: ROHINI ABARCA MD Cardiology Common Codes: 01371-[id number] HOSP CARE(High Cardiology Consultation Codes: 50487-[id number] CONSULT <45MIN ROHINI ABARCA MD Jan 12, 2025 15:51
--- NOTE | 2025-01-12 16:16 | DVHPN2 ---
Subjective Patient is here for chest pain Changes from previous H/P or p: No Changes Eyes: No Pain, No Vision change, No Conjunctivae inflammation, No Eyelid inflammation, No Other, No Redness ENT: No Ear pain, No Ear discharge, No Nose pain, No Nose discharge, No Nose congestion, No Mouth pain, No Mouth swelling, No Throat pain, No Throat swelling, No Other Cardiovascular: Chest Pain, Palpitations, Orthopnea; No Paroxysmal Noc. Dyspnea, No Edema, No Lt Headedness, No Other Respiratory: Cough; No Dry; Shortness of breath, SOB with excertion; No Wheezing, No Hemoptysis, No Pleuritic Pain, No Sputum, No Other Gastrointestinal: No Nausea, No Vomiting, No Abdominal Pain, No Diarrhea, No Constipation, No Melena, No Hematochezia, No Other Genitourinary: No Dysuria, No Frequency, No Incontinence, No Hematuria, No Retention, No Other Musculoskeletal: No other, No neck pain, No shoulder pain, No arm pain, No back pain, No hand pain, No leg pain, No foot pain Skin: No Rash, No Lesions, No Jaundice, No Bruising, No Other Objective Vitals Vital Signs Date Time Temp Pulse Resp B/P (MAP) Pulse Ox O2 Delivery O2 Flow Rate FiO2 01/12/25 13:07 97.4 61 19 156/75 (102) 98 97.4 01/12/25 12:38 Nasal Cannula 2.0 01/12/25 12:38 28 Intake/Output Intake and Output 01/12/25 07:00 Intake Total 1000 ml Output Total 900 ml Balance 100 ml Intake Oral 1000 ml Output Urine Total 900 ml # Voids 4 Exam HEENT pupils are reactive Neck is supple CV is S1-S2 regular rate and rhythm Respiratory are clear GI positive bowel sound Extremity no edema 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 Medications Current Medications Medications Dose Ordered Sig/Yvette Route Start Time Stop Time Status Last Admin Dose Admin Ondansetron HCl 4 mg Q4HP PRN IV 01/10/25 08:30 Docusate Sodium 100 mg BIDPRN PRN PO 01/10/25 08:30 Acetaminophen 650 mg Q6HP PRN PO 01/10/25 08:30 UNV Morphine Sulfate 2 mg Q4HPRN PRN IV 01/10/25 08:30 01/11/25 22:42 2 MG Nitroglycerin 0.4 mg Q5MINP PRN SL 01/10/25 08:30 Morphine Sulfate 2 mg Q30M PRN IV 01/10/25 08:30 Enteral Nutritional Formula 240 ml TIDWM PO 01/10/25 12:00 01/12/25 12:00 240 ML Atorvastatin Calcium 40 mg HS PO 01/10/25 09:15 01/11/25 22:41 40 MG Clopidogrel Bisulfate 75 mg DAILY PO 01/10/25 10:00 01/11/25 09:23 75 MG Aspirin 81 mg DAILY PO 01/11/25 10:00 01/11/25 09:45 81 MG Pantoprazole Sodium 40 mg DAILY PO 01/10/25 10:00 01/11/25 09:22 40 MG Tramadol HCl 50 mg Q6HP PRN PO 01/10/25 10:00 Bupropion HCl 150 mg DAILY PO 01/10/25 10:25 01/10/25 10:44 150 MG Albuterol 1.25 mg Q6HWA NEB 01/10/25 12:00 01/12/25 12:44 1.25 MG Mupirocin 1 applic BID EACHNOSTRI 01/10/25 22:00 01/15/25 21:59 01/11/25 22:00 1 APPLIC Furosemide 40 mg BIDD IV 01/12/25 18:00 Empaglifozin 10 mg DAILY PO 01/13/25 10:00 Metoprolol Succinate 25 mg DAILY PO 01/13/25 10:00 Sacubitril/ Valsartan 0.5 tab BID PO 01/12/25 22:00 Enoxaparin Sodium 40 mg DAILY SC 01/13/25 10:00 Ranolazine 500 mg BID PO 01/12/25 22:00 Laboratory Results Laboratory Tests 01/11/25 06:20 Urinalysis Test 01/10/25 09:00 Urine Color Colorless (Yellow) Urine Clarity Clear (Clear) Urine pH 5.0 (5.0-9.0) Urine Specific [place] 1.007 (1.001-1.035) Urine Protein Negative (Negative) Urine Ketones Negative (Negative) Urine Blood Negative /uL (Negative) Urine Nitrite Negative (Negative) Urine Bilirubin Negative (Negative) Urine Urobilinogen Normal mg/dL (Negative) Urine Leukocyte Esterase Negative /uL (Negative) Urine RBC None seen /hpf (0 - 3) Urine Microscopic WBC < 1 /HPF (0-3) Urine Squamous Epithelial Cells Few /hpf (<5) Urine Bacteria None seen /hpf (None Seen) Urine Glucose Normal mg/dL (Normal) Microbiology Microbiology Date/Time Source Procedure Growth Status 01/10/25 22:23 Nose MRSA Screen - Final Methicillin Resistant S.aureus Complete Assessment/Plan Assessment/Plan 70-year-old male with a known history of CAD status post PCI with a five stents, congestive heart failure with diastolic dysfunction, chronic respiratory failure on home O2, COPD, hypertension who initially presented to hospital with the chest pain found to have 1. Chest pain rule out acute NC 2. Known CAD status post PCI with five stents 3. Congestive heart failure with diastolic dysfunction with a mild decompensation 4. Bilateral pleural effusion 5. Hypertension 6. Chronic respiratory failure on home O2 7. COPD not in exacerbation -continue O2 supplementation, med nebs, 2D echo cardiology consultation -add Ranexa. Plan discussed with: Patient Date of Service: Jan 12, 2025 Billing Provider: WESLEY ROMEO MD Common Visit Codes: [id number] INP/OBS CARE(HIGH) WESLEY ROMEO MD Jan 12, 2025 16:16
[2025-01-12] MEDS: FUROSEMIDE 40 MG/4 ML VIAL IV SCH (18:00)
[2025-01-12] MEDS: RANOLAZINE ER 500 MG TAB PO SCH (21:21)
[2025-01-12] MEDS: SACUBITRIL-VALSARTAN 24mg/26mg TAB PO SCH (21:22)
[2025-01-13] VITALS (15 sets, daily range): BP systolic 83–147; BP diastolic 47–73; PULSE 55–88; RESP 16–19; TEMP 36.7; O2SAT 94–100
[2025-01-13] MEDS: PANTOPRAZOLE 40 MG TAB PO ONE (07:54)
[2025-01-13] MEDS: ALBUMIN 5% 250 ML IV ONE (07:54)
[2025-01-13] MEDS: CLOPIDOGREL BISULFATE 75 MG TAB ONE (07:55)
[2025-01-13] MEDS: MORPHINE SULFATE INJ 2 MG/ml SYRG ONE (07:59)
[2025-01-13] MEDS: ALBUTEROL SULF 2.5 MG/0.5ML(0.5%) NEB SOLN ONE ×2 (08:40)
[2025-01-13] MEDS: ENOXAPARIN SOD 40 MG/0.4 ML SYRINGE SC SCH (10:33)
[2025-01-13] MEDS: EMPAGLIFLOZIN 10 MG TAB PO SCH (10:34)
[2025-01-13] MEDS: METOPROLOL SUCCINATE XL 50 MG TAB PO SCH (10:34)
[2025-01-13] MEDS: MORPHINE SULFATE 4 MG/ML SYR/VIAL IV PRN (10:37)
[2025-01-13] MEDS ORDERED: EMPA1TAB PO (14:17)
--- NOTE | 2025-01-13 14:19 | DVHDS2 ---
Discharge Summary Date of Admission Jan 10, 2025 at 08:28 Date of Discharge: Jan 13, 2025 Labs/Diagnostic Data: Laboratory Results Test 01/11/25 06:20 01/10/25 23:14 01/10/25 14:58 01/10/25 09:50 White Blood Count 6.4 10^3/uL (4.4-10.8) Red Blood Count 3.62 10^6/uL (4.5-5.90) Hemoglobin 9.5 g/dL (13.5-17.5) Hematocrit 30.1 % (41.0-53.0) Mean Corpuscular Volume 83.1 fL (80.0-100.0) Mean Corpuscular Hemoglobin 26.2 pg (28.0-32.0) Mean Corpuscular Hemoglobin Concent 31.6 g/dL (32.0-36.0) Red Cell Distribution Width 19.0 % (11.8-14.3) Platelet Count 266 10^3/uL (140-450) Mean Platelet Volume 9.0 fL (6.9-10.8) Neutrophils (%) (Auto) 66.5 % (37.0-80.0) Lymphocytes (%) (Auto) 20.6 % (10.0-50.0) Monocytes (%) (Auto) 10.4 % (0.0-12.0) Eosinophils (%) (Auto) 1.9 % (0.0-7.0) Basophils (%) (Auto) 0.6 % (0.0-2.0) Neutrophils # (Auto) 4.3 10 ^3/uL (1.6-8.6) Lymphocytes # (Auto) 1.3 10 ^3/uL (0.4-5.4) Monocytes # (Auto) 0.7 10 ^3/uL (0-1.3) Eosinophils # (Auto) 0.1 10 ^3/uL (0-0.8) Basophils # (Auto) 0 10 ^3/uL (0-0.2) Nucleated Red Blood Cells 0.1 % Sodium Level 148 mmol/L (136-145) Potassium Level 3.8 mmol/L (3.5-5.1) Chloride Level 108 mmol/L (98-107) Carbon Dioxide Level 29 mmol/L (20-31) Anion Gap 11 (5-15) Blood Urea Nitrogen 19 mg/dL (9-23) Creatinine 1.14 mg/dL (0.700-1.30) Glomerular Filtration Rate Calc 69 mL/min (>90) BUN/Creatinine Ratio 16.7 (10.0-20.0) Serum Glucose 126 mg/dL (74-106) Calcium Level 8.8 mg/dL (8.7-10.4) Total Bilirubin 0.3 mg/dL (0.2-1.0) Aspartate Amino Transferase (AST) 18 U/L (13-40) Alanine Aminotransferase (ALT) 9 U/L (7-40) Alkaline Phosphatase 53 U/L (46-116) Total Protein 6.7 g/dL (5.7-8.2) Albumin 2.9 g/dL (3.2-4.8) Hepatitis B Surface Antigen Negative (Negative) Hepatitis C Antibody Positive (Negative) Influenza Type A Antigen Negative (Negative) Influenza Type B Antigen Negative (Negative) SARS-CoV-2 Antigen (Rapid) Negative (NEGATIVE) Erythrocyte Sedimentation Rate 71 mm/hr (0-20) Troponin I High Sensitivity 69 ng/L (</=54) Test 01/10/25 09:00 01/10/25 07:50 01/10/25 04:49 Urine Color Colorless (Yellow) Urine Clarity Clear (Clear) Urine pH 5.0 (5.0-9.0) Urine Specific [place] 1.007 (1.001-1.035) Urine Protein Negative (Negative) Urine Ketones Negative (Negative) Urine Blood Negative /uL (Negative) Urine Nitrite Negative (Negative) Urine Bilirubin Negative (Negative) Urine Urobilinogen Normal mg/dL (Negative) Urine Leukocyte Esterase Negative /uL (Negative) Urine RBC None seen /hpf (0 - 3) Urine Microscopic WBC < 1 /HPF (0-3) Urine Squamous Epithelial Cells Few /hpf (<5) Urine Bacteria None seen /hpf (None Seen) Urine Glucose Normal mg/dL (Normal) Urine Opiates Screen Neg (NEGATIVE) Urine Fentanyl Screen Neg (NEGATIVE) Urine Barbiturates Screen Neg (NEGATIVE) Urine Phencyclidine Screen Neg (NEGATIVE) Urine Amphetamines Screen Neg (NEGATIVE) Urine Benzodiazepines Screen Neg (NEGATIVE) Urine Cocaine Screen Neg (NEGATIVE) Urine Cannabinoids Screen Neg (NEGATIVE) Magnesium Level 2.0 mg/dL (1.6-2.6) C-Reactive Protein High Sensitivity 2.79 mg/dL (<1.0) Thyroid Stimulating Hormone (TSH) 1.95 uIU/mL (0.55-4.78) B-Type Natriuretic Peptide 386.01 pg/mL (0-100) Other Laboratory Tests 01/11/25 06:20 Brief Hx & Hospital Course: 70-year-old male with a known history of CAD status post PCI with a five stents, congestive heart failure with diastolic dysfunction, chronic respiratory failure on home O2, COPD, hypertension who initially presented to hospital with the chest pain found to have unstable angina. Patient is was seen by Cardiology. Patient was started on Jardiance. Patient's medication has been resumed. Patient is cleared by Cardiology to be discharged. Patient is being discharged under stable condition with a close follow up as an outpatient with the PCP and Cardiology. Home health home safety evaluation upon discharge. Condition at Discharge: Stable Final Diagnosis/Problems List 70-year-old male with a known history of CAD status post PCI with a five stents, congestive heart failure with diastolic dysfunction, chronic respiratory failure on home O2, COPD, hypertension who initially presented to hospital with the chest pain found to have 1. Chest pain rule out acute VA 2. Known CAD status post PCI with five stents 3. Congestive heart failure with diastolic dysfunction with a mild decompensation 4. Bilateral pleural effusion 5. Hypertension 6. Chronic respiratory failure on home O2 7. COPD not in exacerbation Discharge Disposition: Home with Health Services SNF Discharge Will this Physician continue t: No Discharge Instruct/Medications Diet: Cardiac 2g Na,low cholest Activity: No Restrictions, As Tolerated Follow Up/Referral: Follow up with the PCP in 1-2 weeks Follow up with the Dr. Kimani Montesinos in 1-2 weeks' compensation expert. Medications: Resume home medication add Jardiance New Medications: Empagliflozin (Jardiance) 10 Mg Tab 10 MG PO DAILY, #30 TAB Continued Medications: Amlodipine Besylate (Amlodipine Besylate) 10 Mg Tab 1 TAB PO DAILY for 90 Days, #90 Aspirin (Aspirin Regular Strength) 325 Mg Tab 1 TAB PO DAILY for 30 Days, #30 Atorvastatin Calcium (Lipitor) 80 Mg Tab 1 TAB PO DAILY for 30 Days, #30 Beclomethasone Dipropionate (Qvar Redihaler) 80 Mcg/Act Aer 1 PUFF INH BID for 30 Days, #10.6 Budesonide-Formoterol Fumarate (Budesonide/Formoterol Fum 160-4.5 Mcg/Act) 1 Aer Aer 2 PUFF IN BID for 30 Days, #10.2 Bupropion Hcl (Bupropion Hcl) 75 Mg Tab 2 TAB PO DAILY for 30 Days, #60 Clopidogrel Bisulfate (Clopidogrel) 75 Mg Tab 1 TAB PO DAILY for 30 Days, #30 Dapagliflozin Propanediol (Farxiga) 10 Mg Tab 1 TAB PO DAILY for 30 Days, #30 Furosemide (Lasix) 40 Mg Tab 40 MG PO BID for 30 Days, #60 TAB Gabapentin (Gabapentin) 800 Mg Tab 1 TAB PO BID for 30 Days, #60 Ipratropium-Albuterol (Combivent Respimat) Respimat Aer 1 PUFF INH QID Lactulose (Lactulose) 10 Gm/15 Ml Rachna 15 ML PO BID PRN for 15 Days, #473 Levetiracetam (Levetiracetam) 750 Mg Tab 1 TAB PO BID for 30 Days, #60 Lidocaine (Lidocaine Topical Pain Pa) 4 % Pad 1 PATCH TOP DAILY Methocarbamol (Methocarbamol) 500 Mg Tab 1.5 TAB PO Q8HR PRN for 13 Days, #40 Midodrine HCl (Midodrine Hydrochloride) 5 Mg Tab 1 TAB PO TID for 30 Days, #90 Nitroglycerin (Nitrostat) 0.4 Mg Sub 1 TAB SL for 30 Days, #50 Oxybutynin Chloride (Ditropan Xl) 5 Mg Tab 15 MG PO DAILY for 30 Days, #30 Pantoprazole Sodium Sesquihydr (Pantoprazole Sodium) 40 Mg Tab 1 TAB PO QAM Potassium Chloride (Potassium Chloride ER) 10 Meq Tab 1 TAB PO BID for 30 Days, #60 Ranolazine (Ranexa) 500 Mg Tab 500 MG PO BID for 30 Days, #60 TAB Senna (Senna) 8.6 Mg Tab 2-4 TAB PO QHSP PRN for FOR CONSTIPATION for 22 Days, #90 Silver Sulfadiazine (Silver Sulfadiazine) 1 % Cre 1 APPLIC TOP DAILY for 30 Days, #50 Trazodone Hcl (Trazodone Hcl) 100 Mg Tab 4 TAB PO HS for 30 Days, #120 Scheduled Amlodipine Besylate (Amlodipine Besylate), 1 TAB PO DAILY, (Reported) Aspirin (Aspirin Regular Strength), 1 TAB PO DAILY, (Reported) Atorvastatin Calcium (Lipitor), 1 TAB PO DAILY, (Reported) Beclomethasone Dipropionate (Qvar Redihaler), 1 PUFF INH BID, (Reported) Budesonide-Formoterol Fumarate (Budesonide/Formoterol Fum 160-4.5 Mcg/Act), 2 PUFF IN BID, (Reported) Bupropion Hcl (Bupropion Hcl), 2 TAB PO DAILY, (Reported) Clopidogrel Bisulfate (Clopidogrel), 1 TAB PO DAILY, (Reported) Dapagliflozin Propanediol (Farxiga), 1 TAB PO DAILY, (Reported) Empagliflozin (Jardiance), 10 MG PO DAILY Furosemide (Lasix), 40 MG PO BID Gabapentin (Gabapentin), 1 TAB PO BID, (Reported) Ipratropium-Albuterol (Combivent Respimat), 1 PUFF INH QID, (Reported) Lactulose (Lactulose), 15 ML PO BID PRN, (Reported) Levetiracetam (Levetiracetam), 1 TAB PO BID, (Reported) Lidocaine (Lidocaine Topical Pain Pa), 1 PATCH TOP DAILY, (Reported) Methocarbamol (Methocarbamol), 1.5 TAB PO Q8HR PRN, (Reported) Midodrine HCl (Midodrine Hydrochloride), 1 TAB PO TID, (Reported) Oxybutynin Chloride (Ditropan Xl), 15 MG PO DAILY, (Reported) Pantoprazole Sodium Sesquihydr (Pantoprazole Sodium), 1 TAB PO QAM, (Reported) Potassium Chloride (Potassium Chloride ER), 1 TAB PO BID, (Reported) Ranolazine (Ranexa), 500 MG PO BID Silver Sulfadiazine (Silver Sulfadiazine), 1 APPLIC TOP DAILY, (Reported) Trazodone Hcl (Trazodone Hcl), 4 TAB PO HS, (Reported) Scheduled PRN Senna (Senna), 2-4 TAB PO QHSP PRN for FOR CONSTIPATION, (Reported) Miscellaneous Medications Nitroglycerin (Nitrostat), 1 TAB SL, (Reported) Discharge Statement: "Patient was advised to return to the ER or call 911 if any headaches, dizziness, shortness of breath, chest pain, abdominal pain, bleeding, fevers, or worsening of medical condition. Patient was counseled about treatment plan, medications, possible side effects, patientverbalized understanding. All questions were answered to the best of my ability. This discharge took greater then 30 minutes in planning, reviewing documentation, counseling the patient, and discussing with other team members." ASSESSMENT ASSESSMENT Assessment 70-year-old male with a known history of CAD status post PCI with a five stents, congestive heart failure with diastolic dysfunction, chronic respiratory failure on home O2, COPD, hypertension who initially presented to hospital with the chest pain found to have 1. Chest pain rule out acute VA 2. Known CAD status post PCI with five stents 3. Congestive heart failure with diastolic dysfunction with a mild decompensation 4. Bilateral pleural effusion 5. Hypertension 6. Chronic respiratory failure on home O2 7. COPD not in exacerbation Date of Service: Jan 13, 2025 Billing Provider: WESLEY ROMEO MD Common Visit Codes: [id number] DISCH DAY >30min WESLEY ROMEO MD Jan 13, 2025 14:19
--- NOTE | 2025-01-14 00:33 | DVHPN2 ---
Progress Note - Dictate Date Seen: Jan 13, 2025 Medical Necessity Reason Pt with a Central, PICC or Fol: No Subjective Patient was seen and evaluated in follow up. Patient is on 2 LPM NC. Chest pain has improved. Patient denies any complaints today. Patient is cardiac stable for discharge. Telemetry reviewed. vital signs Vital Sign Date Time Temp Pulse Resp B/P (MAP) Pulse Ox O2 Delivery O2 Flow Rate FiO2 01/13/25 18:24 36.7 56 16 96 01/13/25 18:15 Nasal Cannula* 2 28 01/13/25 17:17 127/70 (89) Total Intake and Output 01/12/25 01/12/25 01/13/25 15:00 23:00 07:00 Intake Total 1600 ml 700 ml Output Total 950 ml Balance 1600 ml -250 ml medications Current Medications Medications Dose Ordered Sig/Yvette Route Start Time Stop Time Status Last Admin Dose Admin Ondansetron HCl 4 mg Q4HP PRN IV 01/10/25 08:30 Docusate Sodium 100 mg BIDPRN PRN PO 01/10/25 08:30 Acetaminophen 650 mg Q6HP PRN PO 01/10/25 08:30 UNV Nitroglycerin 0.4 mg Q5MINP PRN SL 01/10/25 08:30 Morphine Sulfate 2 mg Q30M PRN IV 01/10/25 08:30 Enteral Nutritional Formula 240 ml TIDWM PO 01/10/25 12:00 01/13/25 18:00 240 ML Atorvastatin Calcium 40 mg HS PO 01/10/25 09:15 01/12/25 21:21 40 MG Clopidogrel Bisulfate 75 mg DAILY PO 01/10/25 10:00 01/13/25 10:33 75 MG Aspirin 81 mg DAILY PO 01/11/25 10:00 01/13/25 10:34 81 MG Pantoprazole Sodium 40 mg DAILY PO 01/10/25 10:00 01/13/25 10:35 40 MG Tramadol HCl 50 mg Q6HP PRN PO 01/10/25 10:00 Bupropion HCl 150 mg DAILY PO 01/10/25 10:25 01/13/25 10:33 150 MG Albuterol 1.25 mg Q6HWA NEB 01/10/25 12:00 01/13/25 11:38 1.25 MG Mupirocin 1 applic BID EACHNOSTRI 01/10/25 22:00 01/15/25 21:59 01/13/25 10:32 1 APPLIC Furosemide 40 mg BIDD IV 01/12/25 18:00 Empaglifozin 10 mg DAILY PO 01/13/25 10:00 01/13/25 10:34 10 MG Metoprolol Succinate 25 mg DAILY PO 01/13/25 10:00 01/13/25 10:34 25 MG Sacubitril/ Valsartan 0.5 tab BID PO 01/12/25 22:00 01/13/25 10:38 0.5 TAB Enoxaparin Sodium 40 mg DAILY SC 01/13/25 10:00 01/13/25 10:33 40 MG Ranolazine 500 mg BID PO 01/12/25 22:00 01/13/25 10:33 500 MG Morphine Sulfate 2 mg Q4HPRN PRN IV 01/13/25 10:30 01/13/25 14:45 2 MG objective GENERAL: Alert and oriented x 3. Chronically ill. Morbidly obese. Mild acute respiratory distress. EYES: PERRL, EOMI. Anicteric. HENT: Moist mucous membranes. LUNGS: Crackles to bilateral breath sounds. CARDIOVASCULAR: Regular rate and rhythm. ABDOMEN: Soft, non-tender and non-distended. EXTREMITIES: 2+ BLE edema. NEUROLOGIC: No focal neurological deficits. SKIN: Warm, dry. laboratory and microbiology Laboratory Tests 01/11/25 06:20 Test 01/11/25 06:20 Range/Units Serum Glucose 126 H 74-106 mg/dL Problem List Acute on chronic decompensated HFpEF, NYHA Class III. NSTEMI, likely type II secondary to above. Coronary artery disease status post multiple PTCAs with stent placement x 5DES (on DAPT). Presence of micra leadless pacemaker. Hypertension. Dyslipidemia. Chronic pain syndrome. Morbid obesity. Assessment/Plan Continued all current supportive medical care. Aspirin, Lipitor, Plavix, Metoprolol. DVT and GI prophylactics. Diuretic with Lasix. Entresto. Morphine for pain management. Additional plan as per the hospital course. Plan discussed with: Patient ROHINI ABARCA MD Jan 13, 2025 19:18
[2025-01-14 01:00] VITALS: BP 122/62; PULSE 60; RESP 18; TEMP 97.7; O2SAT 95
--- NOTE | 2025-01-22 14:12 | ECG ---
[facility] Test Date: 2025-01-15 Test Time: 13:38:01 Pat Name: NAVID SANCHEZ Department: Room: 0292T A Gender: M Crown Ironer: SETH : 1955 Requested By: FLETCHER FARRELL Order Number: [id number] Reading MD: Som Vásquez Measurements Intervals Wirt Rate: 85 P: 4 ME: 160 QRS: -54 QRSD: 98 T: 25 QT: 401 QTc: 477 Interpretive Statements Sinus rhythm Supraventricular bigeminy Left anterior fascicular block Abnormal R-wave progression, late transition Electronically Signed On 01-22-2025 16:43:23 PST by Som Vásquez Please click the below link to view image of tracing.
== END 2025-01-14 01:00 | disposition home health service (06) | DRG 280 ==
LOC: EDUNIT# 04:24 → EDBD 04:24 → ER 04:24 → OVERFLOW 08:28 → TELE-CENTR 21:18 → TELE-WESTW 01-11 21:56
PROVIDERS: ADMIT Internal Medicine; ATTEND Internal Medicine
DX: I13.0 Hypertensive heart and chronic kidney disease with heart failure and stage 1 through stage 4 chronic kidney disease, or unspecified chronic kidney disease (principal); I50.33 Acute on chronic diastolic (congestive) heart failure; I21.A1 Myocardial infarction type 2; E44.0 Moderate protein-calorie malnutrition; I20.0 Unstable angina; J96.10 Chronic respiratory failure, unspecified whether with hypoxia or hypercapnia; N18.32 Chronic kidney disease, stage 3b; K76.0 Fatty (change of) liver, not elsewhere classified; J44.89 Other specified chronic obstructive pulmonary disease; E11.22 Type 2 diabetes mellitus with diabetic chronic kidney disease; Z68.39 Body mass index [BMI] 39.0-39.9, adult; G40.909 Epilepsy, unspecified, not intractable, without status epilepticus; Z68.41 Body mass index [BMI] 40.0-44.9, adult; G89.4 Chronic pain syndrome; E78.5 Hyperlipidemia, unspecified; E55.9 Vitamin D deficiency, unspecified; N28.1 Cyst of kidney, acquired; E66.01 Morbid (severe) obesity due to excess calories; F41.9 Anxiety disorder, unspecified; K21.9 Gastro-esophageal reflux disease without esophagitis; Z81.8 Family history of other mental and behavioral disorders; Z86.73 Personal history of transient ischemic attack (TIA), and cerebral infarction without residual deficits; I25.2 Old myocardial infarction; Z95.5 Presence of coronary angioplasty implant and graft; Z88.6 Allergy status to analgesic agent; Z91.148 Patient's other noncompliance with medication regimen for other reason; Z82.3 Family history of stroke; Z82.49 Family history of ischemic heart disease and other diseases of the circulatory system; Z82.5 Family history of asthma and other chronic lower respiratory diseases; Z83.3 Family history of diabetes mellitus; Z99.81 Dependence on supplemental oxygen
CPT/HCPCS: 36415; 71045; 80053; 80307; 81001; 83735; 83880; 84443; 84484; 85025; 85652; 86141; 86803; 87081; 87340; 87426; 87804; 93005; 94640; 96365; 97163; 99291; G0378

== ENCOUNTER 2025-01-15 11:37 | Inpatient (IN) | payer BC, OTHER ==
[2025-01-15] VITALS (8 sets, daily range): BP systolic 97–139; BP diastolic 68–76; PULSE 62–98; RESP 17–22; TEMP 98.3–99.3; O2SAT 94–100
[~2025-01-15] VITALS: Ht 172.7 cm; Wt 114.0 kg
[~2025-01-15 11:37] MED LIST changes: -AZIT500T66 PO; -BACL10TA PO; +EMPA1TAB PO; -HYDR-4902 PO; -MUPI2OIN2 EX; -PERCOT PO
--- NOTE | 2025-01-15 12:04 | ED.PDOC ---
SOB-HPI HPI Comments 70-year-old male who came to ER via EMS for SOB associated with chest pain. Patient is seen and admitted here multiple times for chest pains. About an hour ago he woke up from sleep with sudden onset left-sided chest pains, pressure radiating to his left arm associated shortness of breath. Patient was seen here on 01/10/25 and discharged yesterday, however states symptoms returned. EMS reports patient is not support to be laying flat given increased SOB but when arriving to his residency, found him flat. No other symptoms reported. Chief Complaint: Shortness of Breath Time Seen by MD: 11:50 Primary Care Provider: marie William notes: Nurses Notes, Senior Billing Consultant Notes, Medications, Allergies Information Source: Patient, Emergency Med Personnel Mode of Arrival: EMS Severity: Moderate Timing: Days Duration: Since onset Context: At Rest PE Risk Factors: None History of: COPD, CHF Modifying Factors: Nothing Associated Signs and Symptoms: Chest Pain Past Medical History PAST MEDICAL HISTORY: Angina, Anxiety, Asthma, CAD, CHF, CKF, COPD, CVA, Depression, DM, GERD, High Lipids, HTN, Liver, NH, TIA, UTI'S Surgical History: Appendectomy, Cholecystectomy, PTCA, Thyroidectomy Family History Family History: Reviewed,noncontributory to illness, Unknown Social History Smoker: Non-Smoker Alcohol: Denies ETOH Use Drugs: Denies Drug Use Lives In: Home Constitutional: denies: chills, diaphoresis, fatigue, fever, malaise, sweats, weakness, others EENTM: denies: blurred vision, double vision, ear bleeding, ear discharge, ear drainage, ear pain, ear ringing, eye pain, eye redness, hearing loss, mouth pain, mouth swelling, nasal discharge, nose bleeding, nose congestion, nose pain, photophobia, tearing, throat pain, throat swelling, voice changes, others Respiratory: reports: SOB at rest, shortness of breath, SOB with excertion; denies: cough, hemoptysis, orthopnea, stridor, wheezing, others Cardiovascular: reports: chest pain; denies: dizzy spells, diaphoresis, Dyspnea on exertion, edema, irregular heart beat, left arm pain, lightheadedness, palpitations, PND, syncope, others Gastrointestinal: denies: abdomen distended, abdominal pain, blood streaked bowels, constipated, diarrhea, dysphagia, difficulty swallowing, hematemesis, melena, nausea, poor appetite, poor fluid intake, rectal bleeding, rectal pain, vomiting, others Genitourinary: denies: burning, dysuria, flank pain, frequency, hematuria, incontinence, penile discharge, penile sore, pain, testicle pain, testicle swelling, urgency, others Neurological: denies: dizziness, fainting, headache, left sided numbness, left sided weakness, numbness, paresthesia, pre-existing deficit, right sided numbness, right sided weakness, seizure, speech problems, tingling, tremors, weakness, others Musculoskeletal: denies: back pain, gout, joint pain, joint swelling, muscle pain, muscle stiffness, neck pain, others Integumetry: denies: bruises, change in color, change in hair/nails, dryness, laceration, lesions, lumps, rash, wounds, others Allergic/Immunocompromised: denies: Difficulty Healing, Frequent Infections, Hives, Itching, others Hematologic/Lymphatic: denies: anemia, blood clots, easy bleeding, easy bruising, swollen glands, others Endocrine: denies: excessive hunger, excessive sweating, excessive thirst, excessive urination, flushing, intolerance to cold, intolerance to heat, unexplained weight gain, unexplained weight loss, others Psychiatric: denies: anxiety, bipolar disorder, depression, hopeless, panic disorder, schizophrenia, sleepless, suicidal, others All Other Systems: Reviewed and Negative Physical Exam General Appearance: Moderate Distress HEENT: Normal ENT Inspection, Pharynx Normal, TMs Normal Neck: Full Range of Motion, Non-Tender, Normal, Normal Inspection Respiratory: Chest Non-Tender, Lungs Clear, No Accessory Muscle Use, No Resp iratory Distress, Normal Breath Sounds Cardiovascular: No Edema, No JVD, No Murmur, No Gallop, Normal Peripheral Pulses, Regular Rate/Rhythm Breast Exam: Deferred Gastrointestinal: No Organomegaly, Non Tender, No Pulsatile Mass, Normal Bowel Sounds, Soft Genitalia: Deferred Pelvic: Deferred Rectal: Deferred Extremities: No calf tenderness, No pedal edema Musculoskeletal : Apperance: Normal Neurologic: Alert Cerebellar Function: NOT DONE Reflexes: NOT DONE Skin: Normal Color Peripheral Pulses: 3+ Radial (R), 3+ Radial (L) Lymphatic: No Adenopathy Was a procedure done? Was a procedure done?: No Differential Dx Differential Diagnosis: Anxiety, Asthma, Bronchitis, CHF, COPD, Pneumonia, Respiratory Distress, URI X-Ray, Labs, Meds, VS Vital Signs Date Time Temp Pulse Resp B/P (MAP) Pulse Ox O2 Delivery O2 Flow Rate FiO2 01/15/25 14:00 97 12 139/68 (91) 97 01/15/25 13:38 85 01/15/25 12:01 19 95 Nasal Cannula* 2 28 01/15/25 12:01 97.8 97 19 123/81 (95) 95 97.8 01/15/25 11:40 98.6 93 28 161/81 98 98.6 Lab Test 01/15/25 12:51 01/15/25 12:41 Range/Units Hemoglobin A1c 5.3 <5.7 % A1C White Blood Count 7.1 4.4-10.8 10^3/uL Red Blood Count 4.05 L 4.5-5.90 10^6/uL Hemoglobin 10.7 L 13.5-17.5 g/dL Hematocrit 33.8 #L 41.0-53.0 % Mean Corpuscular Volume 83.4 80.0-100.0 fL Mean Corpuscular Hemoglobin 26.4 L 28.0-32.0 pg Mean Corpuscular Hemoglobin Concent 31.7 L 32.0-36.0 g/dL Red Cell Distribution Width 18.5 H 11.8-14.3 % Platelet Count 298 140-450 10^3/uL Mean Platelet Volume 9.0 6.9-10.8 fL Neutrophils (%) (Auto) 72.1 37.0-80.0 % Lymphocytes (%) (Auto) 17.8 10.0-50.0 % Monocytes (%) (Auto) 8.5 0.0-12.0 % Eosinophils (%) (Auto) 1.0 0.0-7.0 % Basophils (%) (Auto) 0.6 0.0-2.0 % Neutrophils # (Auto) 5.1 1.6-8.6 10 ^3/uL Lymphocytes # (Auto) 1.3 0.4-5.4 10 ^3/uL Monocytes # (Auto) 0.6 0-1.3 10 ^3/uL Eosinophils # (Auto) 0.1 0-0.8 10 ^3/uL Basophils # (Auto) 0 0-0.2 10 ^3/uL Nucleated Red Blood Cells 0.0 % Prothrombin Time 11.0 9.3-11.8 sec Prothrombin Time INR 1.04 0.9-1.15 Activated Partial Thromboplast Time 28.6 24.5-34.5 SEC Sodium Level 142 # 136-145 mmol/L Potassium Level 3.9 3.5-5.1 mmol/L Chloride Level 110 H 98-107 mmol/L Carbon Dioxide Level 22 20-31 mmol/L Anion Gap 10 5-15 Blood Urea Nitrogen 18 9-23 mg/dL Creatinine 1.01 0.700-1.30 mg/dL Glomerular Filtration Rate Calc 80 >90 mL/min BUN/Creatinine Ratio 17.8 10.0-20.0 Serum Glucose 90 74-106 mg/dL Calcium Level 9.0 8.7-10.4 mg/dL Phosphorus Level 3.0 2.4-5.1 mg/dL Magnesium Level 2.1 1.6-2.6 mg/dL Total Bilirubin 0.4 0.2-1.0 mg/dL Aspartate Amino Transferase (AST) 23 13-40 U/L Alanine Aminotransferase (ALT) 10 7-40 U/L Alkaline Phosphatase 52 46-116 U/L Troponin I High Sensitivity 56 *H </=54 ng/L Total Protein 7.4 5.7-8.2 g/dL Albumin 3.3 3.2-4.8 g/dL Triglycerides Level 65 < 150 mg/dL Cholesterol Level 139 < 200 mg/dL LDL Cholesterol 90 < 100 mg/dL HDL Cholesterol 37 L 40-59 mg/dL Vitamin B12 Level 456 211-911 pg/mL Vitamin D 25-Hydroxy 13.1 L 30.0-100 ng/mL Thyroid Stimulating Hormone (TSH) 1.05 0.55-4.78 uIU/mL Patient alert. Came in for shortness a breath. Saturation pristine on room air. Blood pressure slightly elevated. Discharged from this hospital few hours ago. Has been in this hospital many times. He keeps jumping hospitalist. No acute process. Reviewed his previous visit. Spoke with his hospitalist. Explained to the patient. Continue monitoring. Time of 1ST Reevaluation: 12:01 Reevaluation 1ST: Unchanged Patient Education/Counseling: Diagnosis, Treatment, Prognosis Family Education/Counseling: No Family Present SEPSIS Sepsis Screen Physician Orders Chest Portable (01/15/25 12:32) Electrocardigram (01/15/25 12:32) Vital Signs Date Time Temp Pulse Resp B/P (MAP) Pulse Ox O2 Delivery O2 Flow Rate FiO2 01/15/25 14:00 97 12 139/68 (91) 97 01/15/25 13:38 85 01/15/25 12:01 19 95 Nasal Cannula* 2 28 01/15/25 12:01 97.8 97 19 123/81 (95) 95 97.8 01/15/25 11:40 98.6 93 28 161/81 98 98.6 Laboratory Tests Test 01/15/25 12:41 White Blood Count 7.1 10^3/uL (4.4-10.8) Departure 1 Departure Time of Disposition: 12:12 Impression: Primary Impression: Congestive heart failure (CHF) Qualified Codes: I50.43 - Acute on chronic combined systolic (congestive) and diastolic (congestive) heart failure Additional Impression: Hypertensive urgency Disposition: ADMITTED INPATIENT Admit to: Med Surg Condition: Guarded Critical Care Note Critical Care Time?: Yes (90 min-critical care time only) Stability Stability form required: No Heart Score Heart Score: Heart Score Response (Comments) Value History Moderate Suspicious 1 EKG Normal 0 Age >65 2 Risk Factors >3 or Hx ASHD 2 Troponin N/A 0 Total 5 I personally scribed for ROSELYN CHANG MD ([email or web address]) on 01/15/25 at 12:04. Electronically submitted by Josee Wang ([facility]). ROSELYN CHANG MD Jan 15, 2025 12:04
[2025-01-15 12:59] LABS: Hematocrit 33.8 % (41.0-53.0); Hemoglobin 10.7 g/dL (13.5-17.5); Mean Corpuscular Hemoglobin 26.4 pg (28.0-32.0); Mean Corpuscular Volume 83.4 fL (80.0-100.0); Nucleated Red Blood Cells % 0.0 %
--- NOTE | 2025-01-15 13:19 | DVH ---
CHEST RADIOGRAPH Indication: SHORTNESS OF BREATH Technique: Single frontal view of the chest was obtained Comparison: XY CHEST PORTABLE on DOS: 01/10/25, XR CHEST 1 VIEW on DOS: 01/04/25, XR CHEST 1 VIEW on DOS: 12/27/24, XY CHEST PORTABLE on DOS: 12/23/24, XY CHEST XRAY 1 VIEW on DOS: 12/13/24 FINDINGS: Lines and Tubes: None Lungs: Extensive pulmonary edema. Underlying focal consolidation is not excluded. Pleura: Likely trace bibasilar effusion No pneumothorax. Cardiomediastinal contours: Mild cardiomegaly Bones: No acute osseous abnormality. IMPRESSION: 1. Extensive pulmonary edema. trace bibasilar effusion 2. Underlying focal consolidation is not excluded.
[2025-01-15 13:20] LABS: Alanine Aminotransferase 10 U/L (7-40); Albumin 3.3 g/dL (3.2-4.8); Alkaline Phosphatase 52 U/L (46-116); Anion Gap 10 (5-15); BUN/Creatinine Ratio 17.8 (10.0-20.0); Blood Urea Nitrogen 18 mg/dL (9-23); Calcium 9.0 mg/dL (8.7-10.4); Carbon Dioxide 22 mmol/L (20-31); Glucose 90 mg/dL (74-106); Potassium 3.9 mmol/L (3.5-5.1); Sodium 142 mmol/L (136-145); Total Protein 7.4 g/dL (5.7-8.2)
[2025-01-15 13:21] LABS: Bilirubin, Total 0.4 mg/dL (0.2-1.0)
[2025-01-15 13:22] LABS: Chloride 110 mmol/L (98-107)
--- NOTE | 2025-01-15 14:11 | DVHHPRES ---
History of Present Illness Resident Creating Document: LEAH DRAKE History of Present Illness Dav Cain is a 70 year old male patient who presents to the ED with chief complaint of dyspnea and retrosternal oppressive chest pain in functional class IV which radiates to left arm and reproduces with deep breaths and coughing, associated with productive cough with white/yellow phlegm, chills, nausea and generalized weakness. Patient was discharged from this institution 24 hours before this admission with diagnosis of acute on chronic congestive heart failure. Denies any other associated symptoms. 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 Surgical history: PCI, leadless pacemaker placement, 2023 ex-lap Family history: Non contributory Social history: Lives in [place] with family (NOK sister). Ex-tobacco abuse (3 pack year history) quit 50 years ago. Denies current tobacco, alcohol and other drug abuse. Allergy: Denies Home medication: Aspirin, Clopidogrel, Atorvastatin, Bupropion, Oxybutynin, Dapaglifliozin, Furosemide, inhaler Patient seen and examined at bedside. Currently has no new complaints. Patient admitted for further evaluation. Past Medical History Per HPI Past Surgical History Per HPI Family History Per HPI Past Social History Per HPI Review of Systems Review of Systems Per HPI Allergies: Coded Allergies: Acetaminophen (Verified Allergy, Unknown, 12/13/24) Exam Vital Signs Vital Signs Date Time Temp Pulse Resp B/P (MAP) Pulse Ox O2 Delivery O2 Flow Rate FiO2 01/15/25 14:00 97 12 139/68 (91) 97 01/15/25 12:01 Nasal Cannula* 2 28 01/15/25 12:01 97.8 97.8 Exam Patient lying in bed, in no acute distress General: Lucid, afebrile, mucosae are dry Cardiovascular: Normal S1 and S2. No murmurs, gallops or rubs Respiratory: Regular ventilation mechanics, tachypnea. Diffuse rhonchus in bilateral lung torres Abdomen: Soft, nontender, no organomegaly, normal bowel sounds MSK/skin: Mobilizes 4 limbs. Skin is dry and warm Neurological: Oriented in 3 spheres. No motor no sensitive deficits. Pupils are isocoric and reactive Labs/Xrays Labs Test 01/15/25 12:41 Range/Units White Blood Count 7.1 4.4-10.8 10^3/uL Red Blood Count 4.05 L 4.5-5.90 10^6/uL Hemoglobin 10.7 L 13.5-17.5 g/dL Hematocrit 33.8 #L 41.0-53.0 % Mean Corpuscular Volume 83.4 80.0-100.0 fL Mean Corpuscular Hemoglobin 26.4 L 28.0-32.0 pg Mean Corpuscular Hemoglobin Concent 31.7 L 32.0-36.0 g/dL Red Cell Distribution Width 18.5 H 11.8-14.3 % Platelet Count 298 140-450 10^3/uL Mean Platelet Volume 9.0 6.9-10.8 fL Neutrophils (%) (Auto) 72.1 37.0-80.0 % Lymphocytes (%) (Auto) 17.8 10.0-50.0 % Monocytes (%) (Auto) 8.5 0.0-12.0 % Eosinophils (%) (Auto) 1.0 0.0-7.0 % Basophils (%) (Auto) 0.6 0.0-2.0 % Neutrophils # (Auto) 5.1 1.6-8.6 10 ^3/uL Lymphocytes # (Auto) 1.3 0.4-5.4 10 ^3/uL Monocytes # (Auto) 0.6 0-1.3 10 ^3/uL Eosinophils # (Auto) 0.1 0-0.8 10 ^3/uL Basophils # (Auto) 0 0-0.2 10 ^3/uL Nucleated Red Blood Cells 0.0 % Sodium Level 142 # 136-145 mmol/L Potassium Level 3.9 3.5-5.1 mmol/L Chloride Level 110 H 98-107 mmol/L Carbon Dioxide Level 22 20-31 mmol/L Anion Gap 10 5-15 Blood Urea Nitrogen 18 9-23 mg/dL Creatinine 1.01 0.700-1.30 mg/dL Glomerular Filtration Rate Calc 80 >90 mL/min BUN/Creatinine Ratio 17.8 10.0-20.0 Serum Glucose 90 74-106 mg/dL Calcium Level 9.0 8.7-10.4 mg/dL Total Bilirubin 0.4 0.2-1.0 mg/dL Aspartate Amino Transferase (AST) 23 13-40 U/L Alanine Aminotransferase (ALT) 10 7-40 U/L Alkaline Phosphatase 52 46-116 U/L Troponin I High Sensitivity 56 *H </=54 ng/L Total Protein 7.4 5.7-8.2 g/dL Albumin 3.3 3.2-4.8 g/dL SEPSIS Sepsis Screen Date sepsis recognized/suspect: Jan 15, 2025 Time Sepsis recognized/suspect: 120 Recent Procedure: No On Antibiotic Therapy: No Respiratory Rate >20: No Heart Rate >90: Yes Temp<36 C (96.8 F) or >38.3 C: No SBP <90 or MAP <65 mmHG: No New Acute Mental Status Change: No Is the patient on CPAP, BIPAP,: No Physician Orders Chest Portable (01/15/25 12:32) Electrocardigram (01/15/25 12:32) Vital Signs Date Time Temp Pulse Resp B/P (MAP) Pulse Ox O2 Delivery O2 Flow Rate FiO2 01/15/25 14:00 97 12 139/68 (91) 97 01/15/25 12:01 19 95 Nasal Cannula* 2 28 01/15/25 12:01 97.8 97 19 123/81 (95) 95 97.8 01/15/25 11:40 98.6 93 28 161/81 98 98.6 Laboratory Tests Test 01/15/25 12:41 White Blood Count 7.1 10^3/uL (4.4-10.8) Assessment/Plan Assessment/Plan ASSESSMENT Acute on chronic respiratory failure COPD exacerbation Community acquired pneumonia Gram+/Gram- NSTEMI likely type II due to above Ruled out acute coronary syndrome Chest pain likely pleuritic due to pneumonia CAD with history of AR s/p PCI with 5 stents Paroxysmal atrial fibrillation (SV 7) - secondary hypercoagulability state Chronic diastolic congestive heart failure (HFpEF, LVEF 60%) History of thyroid disease: Resolved 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 Bed-bound 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 Hypertension Dyslipidemia Diabetes Morbid obesity PLAN Patient admitted to telemetry Indicated empiric IV antibiotic (azithromycin and ceftriaxone) Patient currently on clopidogrel and enoxaparin. On discharge patient will benefit from clopidogrel and DOACs. Last stent placement per patient was one month ago. Currently on oxygen therapy with nasal cannula at 2 L/min and bronchodilators Ordered sputum culture, MRSA swab and COVID/influenza swab. On insulin sliding scale Troponin is mildly elevated 56, from recent admission has lowered (above 60). No need to repeated troponin. Hold diuretics, patient seems dry. Goals of care discussed with patient for over 18 minutes: Full code status Discussed plan with , patient and nurses: Patient currently on telemetry status. On oxygen therapy, bronchodilators and IV antibiotics. Pending culture results. Patient has poor prognosis. Plan discussed with: Patient, Other (Nurses) Date of Service: Jan 15, 2025 Billing Provider: DANIEL OLIVAREZ MD Common Visit Codes: 83250-VHRMBQI INP/OBS CARE (HIGH) Secondary Visit Codes: 00301-HGKMLWEO CARE PLAN 30 MINUTES LEAH DRAKE RESIDENT Jan 15, 2025 14:11
[2025-01-15] MEDS ORDERED: MORPHINE SULFATE INJ 2 MG/ml SYRG IV PRN (14:15)
[2025-01-15 14:42] LABS: Magnesium 2.1 mg/dL (1.6-2.6); Triglycerides 65.0 mg/dL (< 150)
[2025-01-15 14:44] LABS: Cholesterol 139.0 mg/dL (< 200)
[2025-01-15 14:48] LABS: HDL Cholesterol 37.0 mg/dL (40-59)
[2025-01-15 14:49] LABS: INR 1.04 (0.9-1.15); Partial Thromboplastin Time 28.6 SEC (24.5-34.5); Prothrombin Time 11.0 sec (9.3-11.8)
[2025-01-15] MEDS ORDERED: LACTULOSE 20Gm/30ML SOLN PO PRN (15:00)
[2025-01-15 15:30] LABS: COVID19 ANTIGEN SOFIA FIA NEGATIVE (NEGATIVE)
[2025-01-15] MEDS: FUROSEMIDE 40 MG/4 ML VIAL IV ONE (15:37)
[2025-01-15] MEDS: MORPHINE SULFATE INJ 2 MG/ml SYRG IV PRN (15:38)
[2025-01-15] MEDS: ONDANSETRON HCL 4 MG/2 ML VIAL IV PRN (15:40)
[2025-01-15] MEDS: SODIUM CHLORIDE 0.9% 2,500 ML IV ONE (16:35)
[2025-01-15 17:10] LABS: Urine Protein, UAD Negative (Negative)
[2025-01-15 17:15] LABS: Amphetamine Screen, Urine Neg (NEGATIVE); Opiate Scree,Urine Neg (NEGATIVE)
[2025-01-15 17:21] LABS: Barbiturate Scree,Urine Neg (NEGATIVE); Benzodiazephine Screen, Urine Neg (NEGATIVE); Cocaine Screen, Urine Neg (NEGATIVE); Phencyclidine Screen, Urine Neg (NEGATIVE)
[2025-01-15] MEDS ORDERED: FUROSEMIDE 40 MG/4 ML VIAL IV SCH (18:00)
[2025-01-15] MEDS ORDERED: FUROSEMIDE 40 MG TAB PO SCH (18:00)
[2025-01-15 18:07] LABS: Cannabinoid Screen, Urine Neg (NEGATIVE)
[2025-01-15] MEDS: AZITHROMYCIN 500MG/250ML 250 ML IV ONE (18:31)
[2025-01-15] MEDS: BUDESONIDE (INHALATION) 0.5 MG/2 ML NEB NEB SCH (19:17)
[2025-01-15] MEDS: ALBUTEROL MEDNEB 2.5 mg/3ml NEB NEB SCH (19:17)
[2025-01-15] MEDS: IPRATROPIUM BROM 0.5 MG/2.5ML INH SOL NEB SCH (19:18)
[2025-01-15] MEDS ORDERED: BECLOMETHASONE DIPROPIONATE INH SCH (22:00)
[2025-01-15] MEDS: RANOLAZINE ER 500 MG TAB PO SCH (22:00)
--- NOTE | 2025-01-15 22:19 | ECG ---
[facility] Test Date: 2025-01-15 Test Time: 22:14:44 Pat Name: NAVID SANCHEZ Department: Respiratoy Room: 0232T Gender: M Lpta: SHARYN : 1955 Requested By: ROSELYN CHANG Order Number: [id number] Reading MD: Som Vásquez Measurements Intervals [place] Rate: 113 P: 34 [place]: 165 QRS: -55 QRSD: 105 T: 77 QT: 382 QTc: 524 Interpretive Statements Sinus tachycardia Ventricular tachycardia, unsustained Left anterior fascicular block Abnormal R-wave progression, late transition Borderline prolonged QT interval Baseline wander in lead(s) V2 Electronically Signed On 01-20-2025 9:47:46 PST by Som Vásquez Please click the below link to view image of tracing.
[2025-01-15] MEDS: NITROGLYCERIN 0.4 MG SL TAB SL PRN (22:37)
[2025-01-16] VITALS (21 sets, daily range): BP systolic 75–149; BP diastolic 42–80; PULSE 52–95; RESP 11–27; TEMP 97.6–98.6; O2SAT 92–100
[2025-01-16] MEDS: ENOXAPARIN SOD 100 MG/1 ML SYRINGE SC ONE
[2025-01-16] MEDS ORDERED: DEXTROSE (50%) 50ML SYRG IV PRN (00:15)
[2025-01-16] MEDS: levETIRAcetam 500 MG TAB PO SCH (00:22)
[2025-01-16] MEDS: GABAPENTIN 400 MG CAP PO SCH (00:23)
[2025-01-16] MEDS: ATORVASTATIN 20 MG TAB PO SCH (00:24)
[2025-01-16] MEDS: PANTOPRAZOLE 40 MG TAB PO SCH (06:03)
[2025-01-16] MEDS: ACCU-CHEK COMFORT CURVE STRIP VI SCH (06:39)
[2025-01-16] MEDS: InsuLIN REG 1unit/0.01ml Soln (100units/ml) SC SCH (06:39)
[2025-01-16 07:29] LABS: Mean Corpuscular Volume 83.2 fL (80.0-100.0); Nucleated Red Blood Cells % 0.0 %
[2025-01-16 07:32] LABS: Hematocrit 27.6 % (41.0-53.0); Hemoglobin 9.1 g/dL (13.5-17.5); Mean Corpuscular Hemoglobin 27.4 pg (28.0-32.0)
[2025-01-16 07:45] LABS: Alanine Aminotransferase 12 U/L (7-40); Anion Gap 8 (5-15); BUN/Creatinine Ratio 20.9 (10.0-20.0); Carbon Dioxide 28 mmol/L (20-31); Total Protein 5.8 g/dL (5.7-8.2)
[2025-01-16 07:50] LABS: Albumin 2.6 g/dL (3.2-4.8); Alkaline Phosphatase 45 U/L (46-116); Bilirubin, Total 0.3 mg/dL (0.2-1.0); Blood Urea Nitrogen 29 mg/dL (9-23); Calcium 8.6 mg/dL (8.7-10.4); Chloride 111 mmol/L (98-107); Glucose 113 mg/dL (74-106); Potassium 4.1 mmol/L (3.5-5.1); Sodium 147 mmol/L (136-145)
[2025-01-16] MEDS: LEVALBUTEROL HCL 1.25 MG/3 ML NEB NEB SCH (08:26)
--- NOTE | 2025-01-16 09:32 | DVHPNRES ---
Progress Note Date Seen: Jan 16, 2025 Resident Creating Document: PATIENCE BLACK RESIDENT Medical Necessity Reason Pt with a Central, PICC or Fol: No (RN, sister) Subjective Review of Systems Patient is 70 years old male with past medical history of Hypertension, dyslipidemia, diabetes, CAD with history of GA s/p PCI with 5 stents DESon DAPT, HFpEF, Paroxysmal atrial fibrillation (CV-7), tachy-leandro syndrome s/p leadless pacemaker placement, COPD on home oxygen (2L/min), CVA with residual right weakness, bed bound after exploratory surgery for kidney disease per patient,, urinary incontinence came with a complaint of worsening shortness of breaths. As per patient he has been having worsening shortness of breaths since yesterday. Shortness of breath associated with cough with a yellowish sputum production. Patient also endorsed chest pain on the left side, started when he was on bed, gradual, 8/10, pressure-like, radiating to the left arm, no aggravating or relieving factor. On further inquiry patient reported he has bilateral leg swelling but does not know how long it has been going on. Patient also endorsed nausea but no vomiting. Patient denied fever, palpitation, acute joint rash, acute dysarthria or change in vision. Initial lab workup revealed hemoglobin 10.7, RDW 18.5, potassium 3.9, serum creatinine 1. 0 1, GFR 80, troponin> I 56> 75> 74> 74. UA negative, UDS negative. Chest [id number] pulmonary edema. trace bibasilar effusion. 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 Surgical history: PCI, leadless pacemaker placement, 2023 ex-lap Family history: Non contributory Social history: Lives in [place] with family (NOK sister). Ex-tobacco abuse (3 pack year history) quit 50 years ago. Denies current tobacco, alcohol and other drug abuse. Allergy: Denies Home medication: Aspirin, Clopidogrel, Atorvastatin, Bupropion, Oxybutynin, Dapaglifliozin, Furosemide, inhaler ROS Cardiovascular- chest pain, cough, leg swelling Respiratory den shortness of breath, cough with the yellow Gastrointestinal- denies any rectal bleeding, nausea or vomiting Musculoskeletal-denies acute joint swelling or tenderness or redness Neurological- denies acute dysarthria, dysphagia, change in vision Psychiatry- denies depression or SI or HI Skin- denies acute rash or purpura Patient is seen today at bedside. Labs and chart reviewed. Patient's serum creatinine trending up to 1.39. Patient with a right-sided weakness, lung auscultation bilateral crackles with wheezing. Patient has bilateral leg edema++. EKG no acute ST elevation. BNP. On ceftriaxone azithromycin for suspected pneumonia. Nebulization. Likel NSTEMI type 2 demand lead ischemia. At p.m. 2:45 nursing staff called the provider due to soft BP 90/46 and patient is drowsy. Patient was assessed by the physician, patient was awake and alert, ABG revealed pH 7.38, pCO2 46.8, PO2 64.7, bicarbonate 27.6. , ordered normal saline 250 mL IV bolus. Patient was awake and alert and conversant. Provider spoke to patient's sister Maribel, [phone], discussed patient's current medical condition plan of care and answered her questions. Objective vital signs Vital Sign Date Time Temp Pulse Resp B/P (MAP) Pulse Ox O2 Delivery O2 Flow Rate FiO2 01/16/25 08:31 90 18 100 01/16/25 08:26 Nasal Cannula* 2 28 01/16/25 05:00 98.1 114/74 (87) 98.1 Total Intake and Output 01/15/25 01/15/25 01/16/25 15:00 23:00 07:00 Intake Total 50 ml 350 ml Output Total 600 ml Balance 50 ml -250 ml medications Current Medications Medications Dose Ordered Sig/Yvette Route Start Time Stop Time Status Last Admin Dose Admin Ondansetron HCl 4 mg Q4HP PRN IV 01/15/25 14:15 01/15/25 15:40 4 MG Morphine Sulfate 2 mg Q4HPRN PRN IV 01/15/25 14:15 01/16/25 03:09 2 MG Nitroglycerin 0.4 mg Q5MINP PRN SL 01/15/25 14:15 01/15/25 23:14 0.4 MG Morphine Sulfate 2 mg Q30M PRN IV 01/15/25 14:15 Bupropion HCl 150 mg DAILY PO 01/16/25 10:00 Clopidogrel Bisulfate 75 mg DAILY PO 01/16/25 10:00 Empaglifozin 10 mg DAILY PO 01/16/25 10:00 Furosemide 40 mg BIDD PO 01/15/25 18:00 Pantoprazole Sodium 40 mg QAM PO 01/16/25 07:00 01/16/25 06:03 40 MG Ranolazine 500 mg BID PO 01/15/25 22:00 01/15/25 22:00 500 MG Silver Sulfadiazine 1 applic DAILY TOP 01/16/25 10:00 Amlodipine Besylate 10 mg DAILY PO 01/16/25 10:00 Atorvastatin Calcium 80 mg HS PO 01/15/25 22:00 01/16/25 00:24 80 MG Gabapentin 800 mg BID PO 01/15/25 22:00 01/16/25 00:23 800 MG Lactulose 15 ml BID PRN PO 01/15/25 15:00 Levetiracetam 750 mg BID PO 01/15/25 22:00 01/16/25 00:22 750 MG Patient Own Medication 1 patch DAILY TOP 01/16/25 10:00 Oxybutynin Chloride 15 mg DAILY PO 01/16/25 10:00 Trazodone HCl 400 mg HS PO 01/15/25 22:00 01/16/25 00:20 400 MG Ipratropium [place] 0.5 mg Q6HWA NEB 01/15/25 18:00 01/16/25 08:26 0.5 MG Levalbuterol HCl 0.625 mg Q6HR NEB 01/15/25 18:00 01/16/25 08:26 0.625 MG Ceftriaxone Sodium 50 ml @ 100 mls/hr DAILY@09 IV 01/16/25 09:00 Azithromycin 250 ml @ 125 mls/hr DAILY IV 01/16/25 10:00 Budesonide 0.5 mg BID NEB 01/15/25 22:00 01/15/25 19:17 0.5 MG Enoxaparin Sodium 120 mg Q12HR SC 01/16/25 10:00 Diagnostic Test (Pha) 1 strip ACHS 01/16/25 07:00 01/16/25 06:39 1 STRIP Insulin Human Regular ACHS SC 01/16/25 07:00 Dextrose 50 ml UD PRN IV 01/16/25 00:15 Examination General examination- patient awake, alert, oriented HEENT- PEERLA, no acute nasal discharge Cardiovascular- S1-S2 audible, rate and rhythm regular, no murmur Respiratory- bilateral lung crackles, wheezing++ Gastrointestinal-nontender, bowel sound+. Nondistended Musculoskeletal-no acute joint swelling or tenderness or redness Lower extremity- leg edema++ Neurological- right-sided weakness on upper and lower extremity Psychiatry- denies depression or SI or HI Skin- no acute rash or purpura laboratory and microbiology Laboratory Tests 01/16/25 06:40 Test 01/16/25 06:40 Range/Units Serum Glucose 113 H 74-106 mg/dL Problem List/Assessment/Plan Problem List/Assessment/Plan Assessment and plan-At p.m. 2:45 nursing staff called the provider due to soft BP 90/46 and patient is drowsy. Patient was assessed by the physician, patient was awake and alert, ABG revealed pH 7.38, pCO2 46.8, PO2 64.7, bicarbonate 27.6. , ordered normal saline 250 mL IV bolus. Patient was awake and alert and conversant. Provider spoke to patient's sister Maribel, [phone], discussed patient's current medical condition plan of care and answered her questions. #Acute on chronic respiratory failure #COPD exacerbation #Community acquired pneumonia Gram+/Gram- -chest x-ray bilateral pulmonary edema, trace pleural effusion -continue ceftriaxone and azithromycin as prescribed #NSTEMI likely type II due to demand lead ischemia #Ruled out acute coronary syndrome #Chest pain likely pleuritic due to pneumonia #CAD with history of GA s/p PCI with 5 stents #Hypertension #Dyslipidemia -EKG no acute changes, premature ventricular contraction - troponin> I 56> 75> 74> 74 -Transesophageal echo on 09/15/2024 revealed LVEF 60%, severe LVH, -continue Plavix 75 mg p.o. daily -continue ranolazine ER 500 mg p.o. b.i.d. Atorvastatin 80 mg q.h.s. -continue heparin as prescribed -Jardiance 10 mg p.o. daily -amlodipine 10 mg p.o. daily # hypotension-ordered 250 mL normal saline bolus #Paroxysmal atrial fibrillation (SV 7) - secondary hypercoagulability state #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 -continue heparin as prescribed # KOLE likely due to VMN -avoid dehydration and nephrotoxic drugs -monitor CMP #Chronic diastolic congestive heart failure (HFpEF, LVEF 60%) -Jardiance 10 mg p.o. daily -Lasix 20 mg IV b.i.d. -strict I&O #Diabetes mellitus type 2 -insulin as prescribed -monitor blood sugar #History of thyroid disease: Resolved #History of CVA with right-sided weakness #Bed-bound #Morbid obesity -counseled about the effect of obesity on health Goals of care, Code status full code ; discussed with >15 minutes PUD prophylaxis: Pantoprazole DVT prophylaxis: Heparin Plan discussed with Dr. Callahan, nursing staff, Total time spent on patient evaluation, chart review, assessment and plan, discussion discussion >55 minutes Plan discussed with: Patient, Other (RN) My Orders My Orders Orders - PATIENCE BLACK Procedure Category Date Status Time B-Type Natriuretic LAB 01/16/25 In Process Peptide 08:58 Date of Service: Jan 16, 2025 Billing Provider: DANIEL CALLAHAN MD Common Visit Codes: [id number] INP/OBS CARE(HIGH) PATIENCE BLACK Jan 16, 2025 09:32
[2025-01-16] MEDS ORDERED: ASPirin-EC 325mg tab PO SCH ×2 (10:00)
[2025-01-16] MEDS ORDERED: ENOXAPARIN SOD 40 MG/0.4 ML SYRINGE SC SCH (10:00)
[2025-01-16] MEDS: SILVER SULFADIAZINE 1 % TOPICAL CREAM 50GM TOP SCH (10:00)
[2025-01-16] MEDS: CLOPIDOGREL BISULFATE 75 MG TAB PO SCH (10:01)
[2025-01-16] MEDS: ENOXAPARIN SOD 100 MG/1 ML SYRINGE SC SCH (10:06)
[2025-01-16] MEDS: OXYBUTYNIN CHL 5 MG TAB PO SCH (10:07)
[2025-01-16] MEDS: EMPAGLIFLOZIN 10 MG TAB PO SCH (10:07)
[2025-01-16] MEDS: NALOXONE HCL 0.4 MG/ML VIAL IV ONE (10:25)
[2025-01-16] MEDS: AZITHROMYCIN 500MG/250ML 250 ML IV SCH (12:34)
[2025-01-16] MEDS: FUROSEMIDE 20 MG/2 ML VIAL IV SCH (12:44)
[2025-01-16] MEDS: methylPREDNISolone SOD SUCC 40 MG/ML VL IV SCH (12:44)
[2025-01-16] MEDS: SODIUM CHLORIDE 0.9% 1,000 ML IV SCH (15:15)
[2025-01-16 15:38] LABS: Base Excess 2.2 mmol/L (-2.0-3.0)
[2025-01-16] MEDS: MIDODRINE HCL 10 MG TAB PO ONE (15:45)
[2025-01-16 15:54] LABS: Hematocrit 30.8 % (41.0-53.0); Hemoglobin 9.8 g/dL (13.5-17.5); Mean Corpuscular Hemoglobin 26.6 pg (28.0-32.0); Mean Corpuscular Volume 83.7 fL (80.0-100.0); Nucleated Red Blood Cells % 0.0 %
[2025-01-16 16:10] LABS: Alanine Aminotransferase 16 U/L (7-40); Alkaline Phosphatase 52 U/L (46-116); Anion Gap 7 (5-15); BUN/Creatinine Ratio 20.1 (10.0-20.0); Carbon Dioxide 28 mmol/L (20-31); Magnesium 2.0 mg/dL (1.6-2.6); Potassium 4.7 mmol/L (3.5-5.1); Total Protein 6.6 g/dL (5.7-8.2)
[2025-01-16 16:16] LABS: Albumin 3.0 g/dL (3.2-4.8); Bilirubin, Total 0.2 mg/dL (0.2-1.0); Blood Urea Nitrogen 33 mg/dL (9-23); Chloride 111 mmol/L (98-107); Glucose 121 mg/dL (74-106); Sodium 146 mmol/L (136-145)
[2025-01-16 16:18] LABS: Calcium 8.6 mg/dL (8.7-10.4)
[2025-01-16] MEDS: FUROSEMIDE 20 MG TAB PO SCH (18:00)
[2025-01-16] MEDS: FUROSEMIDE 20 MG/2 ML VIAL IV ONE (20:15)
[2025-01-16] MEDS: ENOXAPARIN SOD 120 MG/0.8 ML SYRINGE SC SCH (21:23)
[2025-01-16] MEDS: MUPIROCIN 2% OINT 15gm or 22gm TOP SCH (22:00)
[2025-01-17] VITALS (59 sets, daily range): BP systolic 75–127; BP diastolic 43–83; PULSE 55–92; RESP 8–27; TEMP 97.4–98; O2SAT 55–100
[2025-01-17] MEDS: MIDODRINE HCL 10 MG TAB PO SCH (06:00)
[2025-01-17] MEDS ORDERED: HYDROmorphone HCL 2 MG/ML VL/or syr IV ONE (08:15)
[2025-01-17 08:31] LABS: Base Excess 0.5 mmol/L (-2.0-3.0)
[2025-01-17] MEDS: HYDROmorphone HCL 2 MG/ML VL/or syr IV ONE ×2 (10:00→20:31)
[2025-01-17] MEDS: CEFEPIME 2GM/50ML NS 50 ML IV SCH (10:00)
--- NOTE | 2025-01-17 10:02 | DVH ---
CHEST RADIOGRAPH Indication: PNA/HF Technique: Single frontal view of the chest was obtained. Comparison: XY CHEST PORTABLE on DOS: 01/15/25 Findings: Mild pulmonary vascular congestion. No significant pleural effusion. No pneumothorax. Enlarged cardiomediastinal silhouette. IMPRESSION: Enlarged cardiomediastinal silhouette with mild pulmonary vascular congestion.
[2025-01-17 10:15] LABS: Hematocrit 30.1 % (41.0-53.0); Hemoglobin 9.3 g/dL (13.5-17.5); Mean Corpuscular Hemoglobin 25.9 pg (28.0-32.0); Mean Corpuscular Volume 84.2 fL (80.0-100.0); Nucleated Red Blood Cells % 0.0 %
[2025-01-17 10:38] LABS: Alanine Aminotransferase 13 U/L (7-40); Anion Gap 6 (5-15); BUN/Creatinine Ratio 21.6 (10.0-20.0); Calcium 8.8 mg/dL (8.7-10.4); Carbon Dioxide 27 mmol/L (20-31); Magnesium 2.1 mg/dL (1.6-2.6); Potassium 4.5 mmol/L (3.5-5.1); Sodium 143 mmol/L (136-145); Total Protein 6.3 g/dL (5.7-8.2)
[2025-01-17] MEDS: HYDROmorphone HCL 2 MG/ML VL/or syr ONE (10:40)
[2025-01-17] MEDS: CEFEPIME 2GM/50ML NS 50 ML IV ONE (10:41)
[2025-01-17 10:50] LABS: Albumin 2.8 g/dL (3.2-4.8); Bilirubin, Total 0.2 mg/dL (0.2-1.0); Blood Urea Nitrogen 38 mg/dL (9-23); Chloride 110 mmol/L (98-107); Glucose 173 mg/dL (74-106)
[2025-01-17] MEDS ORDERED: NOREPINEPHRINE 8 MG/250ML KIT 250 ML IV SCH (11:30)
[2025-01-17 11:48] LABS: Alkaline Phosphatase 48 U/L (46-116)
--- NOTE | 2025-01-17 12:02 | DVHPNRES ---
Progress Note Date Seen: Jan 17, 2025 Resident Creating Document: PATIENCE BLACK RESIDENT Medical Necessity Reason Pt with a Central, PICC or Fol: No (RN, sister) Subjective Review of Systems Patient is 70 years old male with past medical history of Hypertension, dyslipidemia, diabetes, CAD with history of MD s/p PCI with 5 stents DESon DAPT, HFpEF, Paroxysmal atrial fibrillation (CV-7), tachy-leandro syndrome s/p leadless pacemaker placement, COPD on home oxygen (2L/min), CVA with residual right weakness, bed bound after exploratory surgery for kidney disease per patient,, urinary incontinence came with a complaint of worsening shortness of breaths. As per patient he has been having worsening shortness of breaths since yesterday. Shortness of breath associated with cough with a yellowish sputum production. Patient also endorsed chest pain on the left side, started when he was on bed, gradual, 8/10, pressure-like, radiating to the left arm, no aggravating or relieving factor. On further inquiry patient reported he has bilateral leg swelling but does not know how long it has been going on. Patient also endorsed nausea but no vomiting. Patient denied fever, palpitation, acute joint rash, acute dysarthria or change in vision. Initial lab workup revealed hemoglobin 10.7, RDW 18.5, potassium 3.9, serum creatinine 1. 0 1, GFR 80, troponin> I 56> 75> 74> 74. UA negative, UDS negative. Chest [id number] pulmonary edema. trace bibasilar effusion. 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 Surgical history: PCI, leadless pacemaker placement, 2023 ex-lap Family history: Non contributory Social history: Lives in [place] with family (NOK sister). Ex-tobacco abuse (3 pack year history) quit 50 years ago. Denies current tobacco, alcohol and other drug abuse. Allergy: Denies Home medication: Aspirin, Clopidogrel, Atorvastatin, Bupropion, Oxybutynin, Dapaglifliozin, Furosemide, inhaler ROS Cardiovascular- chest pain, cough, leg swelling Respiratory den shortness of breath, cough with the yellow Gastrointestinal- denies any rectal bleeding, nausea or vomiting Musculoskeletal-denies acute joint swelling or tenderness or redness Neurological- denies acute dysarthria, dysphagia, change in vision Psychiatry- denies depression or SI or HI Skin- denies acute rash or purpura Patient is seen today at bedside. Labs and chart reviewed. As per nursing staff patient was being noncompliant with the treatment overnight and also in the morning. Spoke with the patient counseled about the importance of treatment clearance Patient is awake and alert. Ordered oral suction. ABG revealed pH 7.4, pCO2 39.3, PO2 75.2, bicarbonate 24.9. Started patient on Levophed, ordered Lasix 40 mg IV stat. Discontinued ceftriaxone, ordered cefepime, ordered blood culture, urine culture for further evaluation and care. Ordered PICC line Lactic acid 1.5> 3.1 MRSA screening positive Ordered vancomycin as per pharmacy protocol Due to patient's history of heart failure and with the bilateral leg edema, IV fluid administration has to be modified, throughout the day most of the time patient's MAP was >65, ordered Levophed Bedside POCUS was done, dilated IVC Provider spoke to patient's sister Maribel, [phone], discussed patient's current medical condition plan of care and answered her questions. Objective vital signs Vital Sign Date Time Temp Pulse Resp B/P (MAP) Pulse Ox O2 Delivery O2 Flow Rate FiO2 01/17/25 11:41 74 18 100 01/17/25 11:38 Nasal Cannula 1.0 01/17/25 11:38 24 01/17/25 10:00 119/65 01/17/25 08:02 98.0 98.0 Total Intake and Output 01/16/25 01/16/25 01/17/25 15:00 23:00 07:00 Intake Total 175 ml 500 ml 350 ml Balance 175 ml 500 ml 350 ml medications Current Medications Medications Dose Ordered Sig/Yvette Route Start Time Stop Time Status Last Admin Dose Admin Ondansetron HCl 4 mg Q4HP PRN IV 01/15/25 14:15 01/15/25 15:40 4 MG Nitroglycerin 0.4 mg Q5MINP PRN SL 01/15/25 14:15 01/15/25 23:14 0.4 MG Bupropion HCl 150 mg DAILY PO 01/16/25 10:00 01/17/25 08:57 150 MG Clopidogrel Bisulfate 75 mg DAILY PO 01/16/25 10:00 01/17/25 08:57 75 MG Empaglifozin 10 mg DAILY PO 01/16/25 10:00 01/17/25 08:57 10 MG Pantoprazole Sodium 40 mg QAM PO 01/16/25 07:00 01/16/25 06:03 40 MG Ranolazine 500 mg BID PO 01/15/25 22:00 01/17/25 08:57 500 MG Silver Sulfadiazine 1 applic DAILY TOP 01/16/25 10:00 Amlodipine Besylate 10 mg DAILY PO 01/16/25 10:00 Hold 01/16/25 10:02 10 MG Atorvastatin Calcium 80 mg HS PO 01/15/25 22:00 01/16/25 21:21 80 MG Gabapentin 800 mg BID PO 01/15/25 22:00 Hold 01/16/25 10:01 800 MG Lactulose 15 ml BID PRN PO 01/15/25 15:00 Levetiracetam 750 mg BID PO 01/15/25 22:00 01/17/25 08:58 750 MG Patient Own Medication 1 patch DAILY TOP 01/16/25 10:00 Oxybutynin Chloride 15 mg DAILY PO 01/16/25 10:00 Hold 01/16/25 10:07 15 MG Ipratropium [place] 0.5 mg Q6HWA NEB 01/15/25 18:00 01/17/25 11:31 0.5 MG Levalbuterol HCl 0.625 mg Q6HR NEB 01/15/25 18:00 01/17/25 11:31 0.625 MG Azithromycin 250 ml @ 125 mls/hr DAILY IV 01/16/25 10:00 01/17/25 08:58 125 MLS/HR Budesonide 0.5 mg BID NEB 01/15/25 22:00 01/17/25 07:10 0.5 MG Diagnostic Test (Pha) 1 strip ACHS 01/16/25 07:00 01/17/25 10:52 1 STRIP Insulin Human Regular ACHS SC 01/16/25 07:00 01/17/25 10:53 3 UNITS Dextrose 50 ml UD PRN IV 01/16/25 00:15 Methylprednisolone Sodium Succinate 40 mg BID IV 01/16/25 10:30 01/17/25 08:58 40 MG Enoxaparin Sodium 120 mg Q12HR SC 01/16/25 22:00 01/17/25 08:59 120 MG Midodrine 10 mg TID@0600,1200,1800 PO 01/17/25 06:00 01/17/25 10:52 10 MG Mupirocin 1 applic BID TOP 01/16/25 22:00 01/17/25 10:01 1 APPLIC Cefepime HCl 50 ml @ 12.5 mls/hr Q12HR IV 01/17/25 10:00 Norepinephrine Bitartrate 250 ml @ 3.75 mls/hr Q24H IV 01/17/25 11:30 Morphine Sulfate 1 mg Q4HP PRN IV 01/17/25 11:30 Examination General examination- patient awake, alert, oriented HEENT- PEERLA, no acute nasal discharge Cardiovascular- S1-S2 audible, rate and rhythm regular, no murmur Respiratory- bilateral lung crackles, wheezing++ Gastrointestinal-nontender, bowel sound+. Nondistended Musculoskeletal-no acute joint swelling or tenderness or redness Lower extremity- leg edema++ Neurological- right-sided weakness on upper and lower extremity Psychiatry- denies depression or SI or HI Skin- no acute rash or purpura laboratory and microbiology Laboratory Tests 01/17/25 09:56 Test 01/17/25 09:56 Range/Units Serum Glucose 173 H 74-106 mg/dL Problem List/Assessment/Plan Problem List/Assessment/Plan Assessment and plan- # septic Shock likely due to pneumonia #Acute on chronic respiratory failure #COPD exacerbation #Community acquired pneumonia Gram+/Gram- -chest x-ray bilateral pulmonary edema, trace pleural effusion -discontinued ceftriaxone, ordered cefepime -continue azithromycin -pending sputum culture, blood culture, urine culture -lactic acid 3.1 -Zosyn as per pharmacy protocol Bedside POCUS was done, dilated IVC present -due to history of heart failure, leg edema, IV fluid dosing has to be titrated throughout the day most of the time patient's MAP was >65, -ordered Levophed #NSTEMI likely type II due to demand lead ischemia #Ruled out acute coronary syndrome #Chest pain likely pleuritic due to pneumonia #CAD with history of MD s/p PCI with 5 stents #Hypertension #Dyslipidemia -EKG no acute changes, premature ventricular contraction - troponin> I 56> 75> 74> 74 -Transesophageal echo on 09/15/2024 revealed LVEF 60%, severe LVH, -continue Plavix 75 mg p.o. daily -continue ranolazine ER 500 mg p.o. b.i.d. Atorvastatin 80 mg q.h.s. -continue heparin as prescribed -Jardiance 10 mg p.o. daily -holding amlodipine # hypotension- -ordered Levophed -monitor blood pressure #Paroxysmal atrial fibrillation (SV 7) - secondary hypercoagulability state #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 -continue heparin as prescribed # KOLE likely due to VMN -avoid dehydration and nephrotoxic drugs -monitor CMP #Chronic diastolic congestive heart failure (HFpEF, LVEF 60%) -Jardiance 10 mg p.o. daily -Lasix PRN -strict I&O #Diabetes mellitus type 2 -insulin as prescribed -monitor blood sugar #History of thyroid disease: Resolved #History of CVA with right-sided weakness #Bed-bound #Morbid obesity -counseled about the effect of obesity on health Status OMARI Goals of care, Code status full code ; discussed with >15 minutes PUD prophylaxis: Pantoprazole DVT prophylaxis: Heparin Plan discussed with Dr. Callahan, nursing staff, Total time spent on patient evaluation, chart review, assessment and plan, discussion discussion >75 minutes Plan discussed with: Patient, Other (RN, sister) My Orders My Orders Orders - PATIENCE BLACK RESIDENT Procedure Category Date Status Time Comprehensive LAB 01/17/25 In Process Metabolic Panel 04:00 Magnesium LAB 01/17/25 In Process 04:00 Cleanse Wound With ELLIE 01/16/25 In Process Wound Clean 12:50 Apply Z-Guard ELLIE 01/16/25 In Process 12:50 * Dietary Consult CONS 01/16/25 Transmitted 13:33 Abg W/ Co-Ox RT 01/16/25 Logged 14:53 Midodrine Tablet PHA 01/17/25 In Process (Proamatine Tablet) 06:00 Mupirocin 2% Ointment PHA 01/16/25 In Process (Bactroban 2% Oint 22:00 * Picc Line Consult CONS 01/17/25 Transmitted 07:36 Cefepime 2gm/50ml Ns PHA 01/17/25 In Process (Maxipime 2gm/50ml) 10:00 Blood Culture DAVE 01/17/25 In Process 08:25 Urine Bacterial DAVE 01/17/25 Logged Culture 08:25 Chest Xray 1 View XY 01/17/25 Resulted 08:33 Lactic Acid W/ Reflex LAB 01/17/25 Logged Order 09:12 Norepinephrine 8 PHA 01/17/25 In Process Mg/250ml Kit 11:30 Morphine Sulfate PHA 01/17/25 In Process Injection 11:30 Dietary Evaluation Review Comments: Request approval for Patricio to promote wound healing Physical therapy if possible Weight loss and less pressure on this buttlock Expected Outcomes/Goals: gradually healed wounds gradual wt loss Improved nutrition related lab values Date of Service: Jan 17, 2025 Billing Provider: DANIEL CALLAHAN MD Common Visit Codes: [id number] INP/OBS CARE(HIGH) PATIENCE BLACK RESIDENT Jan 17, 2025 12:02
[2025-01-17] MEDS: MORPHINE SULFATE INJ 2 MG/ml SYRG IV PRN (12:37)
[2025-01-17 14:34] LABS: Lactic Acid w/Reflex 3.1 mmol/L (0.4-2.0)
[2025-01-17] MEDS ORDERED: VANCOMYCIN PER PHARMACY 0 MG IV SCH (15:30)
[2025-01-17] MEDS: VANCOMYCIN 1GM/250ML KIT 250 ML IV SCH (16:30)
--- NOTE | 2025-01-17 17:06 | DVH ---
CHEST RADIOGRAPH Indication: central line placement Technique: Single frontal view of the chest was obtained Comparison: XY CHEST XRAY 1 VIEW on DOS: 01/17/25, XY CHEST PORTABLE on DOS: 01/15/25, XY CHEST PORTABLE on DOS: 01/10/25 FINDINGS: Lines and Tubes: Right internal jugular line in place with the tip in the superior vena cava or cavoatrial junction. There is no pneumothorax on the right. Lungs: Bilateral perihilar peribronchial thickening. Pleura: No effusion. No pneumothorax. Cardiomediastinal contours: Stable cardiomegaly Bones: No acute osseous abnormality. IMPRESSION: 1. Stable cardiomegaly. 2. Right internal jugular catheter in place with the tip at the cavoatrial junction. 3. No pneumothorax on the right.
[2025-01-17] MEDS: FUROSEMIDE 40 MG/4 ML VIAL IV ONE (17:15)
[2025-01-17] MEDS: NOREPINEPHRINE BITARTRATE 32 MG in SODIUM CHL 0.9% 218 ML IV SCH (18:15)
[2025-01-18] VITALS (58 sets, daily range): BP systolic 82–129; BP diastolic 30–67; PULSE 50–96; RESP 14–35; TEMP 97.1–98.2; O2SAT 89–100
[2025-01-18 05:30] LABS: Hematocrit 28.3 % (41.0-53.0); Hemoglobin 8.6 g/dL (13.5-17.5); Mean Corpuscular Hemoglobin 25.6 pg (28.0-32.0); Mean Corpuscular Volume 84.1 fL (80.0-100.0); Nucleated Red Blood Cells % 0.0 %
[2025-01-18 05:49] LABS: Alanine Aminotransferase 10 U/L (7-40); Alkaline Phosphatase 46 U/L (46-116); Anion Gap 8 (5-15); BUN/Creatinine Ratio 21.1 (10.0-20.0); Carbon Dioxide 27 mmol/L (20-31); Chloride 106 mmol/L (98-107); Magnesium 2.1 mg/dL (1.6-2.6); Potassium 4.2 mmol/L (3.5-5.1); Sodium 141 mmol/L (136-145); Total Protein 6.3 g/dL (5.7-8.2)
[2025-01-18 05:56] LABS: Albumin 2.8 g/dL (3.2-4.8); Bilirubin, Total 0.2 mg/dL (0.2-1.0); Blood Urea Nitrogen 41 mg/dL (9-23); Calcium 8.4 mg/dL (8.7-10.4); Glucose 219 mg/dL (74-106)
--- NOTE | 2025-01-18 08:12 | DVH ---
CHEST RADIOGRAPH Indication: PNA/HF Technique: Single frontal view of the chest was obtained COMPARISON: XY CHEST PORTABLE on DOS: 01/17/25, XY CHEST XRAY 1 VIEW on DOS: 01/17/25, XY CHEST PORTABLE on DOS: 01/15/25, XY CHEST PORTABLE on DOS: 01/10/25, XR CHEST 1 VIEW on DOS: 01/04/25 FINDINGS: Lines and Tubes: Right central venous catheter in satisfactory position. Lungs: Pulmonary vascular congestion. Pleura: No effusion.No pneumothorax. Cardiomediastinal contours: Cardiomegaly. Bones: Unremarkable IMPRESSION: Pulmonary vascular congestion.
--- NOTE | 2025-01-18 10:16 | DVHINCON2 ---
Date of service: Jan 18, 2025 Referring Physician Hospitalist Reason for Consultation Acute kidney injury History of Present Illness 70 year old morbidly obese male recently hospitalized for CHF exacerbation and COPD returns to the hospital complaining of shortness of breath with cough and phlegm. He was admitted with a diagnosis of pneumonia with superimposed COPD. On the medical floor patient was reporting chronic pain and received morphine and developed hypotension he was transferred to step-down unit requiring Levophed due to hypotension. Nephrology was consulted for progressively worsening creatinine. Patient's recent hospitalization creatinine was approximately 1.0 in the subsequently chance over the last several days. 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, bed bound Allergies: Coded Allergies: Acetaminophen (Verified Allergy, Unknown, 12/13/24) Home Meds Active Scripts Empagliflozin (Jardiance) 10 Mg Tab, 10 MG PO DAILY, #30 TAB Prov:WESLEY ROMEO MD 01/13/25 Furosemide (Lasix) 40 Mg Tab, 40 MG PO BID for 30 Days, #60 TAB Prov:BK LAGUERRE MD 05/29/24 Ranolazine (Ranexa) 500 Mg Tab, 500 MG PO BID for 30 Days, #60 TAB Prov:JUSTIN DUARTE MD 10/22/18 Reported Medications Nitroglycerin (Nitrostat) 0.4 Mg Sub, 1 TAB SL for 30 Days, #50 01/12/25 Senna (Senna) 8.6 Mg Tab, 2-4 TAB PO QHSP PRN for FOR CONSTIPATION for 22 Days, #90 01/12/25 Methocarbamol (Methocarbamol) 500 Mg Tab, 1.5 TAB PO Q8HR PRN for 13 Days, #40 01/12/25 Amlodipine Besylate (Amlodipine Besylate) 10 Mg Tab, 1 TAB PO DAILY for 90 Days, #90 01/12/25 Budesonide-Formoterol Fumarate (Budesonide/Formoterol Fum 160-4.5 Mcg/Act) 1 Aer Aer, 2 PUFF IN BID for 30 Days, #10.2 02/26/24 Midodrine HCl (Midodrine Hydrochloride) 5 Mg Tab, 1 TAB PO TID for 30 Days, #90 02/26/24 Potassium Chloride (Potassium Chloride ER) 10 Meq Tab, 1 TAB PO BID for 30 Days, #60 02/26/24 Aspirin (Aspirin Regular Strength) 325 Mg Tab, 1 TAB PO DAILY for 30 Days, #30 02/26/24 Lactulose (Lactulose) 10 Gm/15 Ml Rachna, 15 ML PO BID PRN for 15 Days, #473 02/26/24 Atorvastatin Calcium (Lipitor) 80 Mg Tab, 1 TAB PO DAILY for 30 Days, #30 02/26/24 Levetiracetam (Levetiracetam) 750 Mg Tab, 1 TAB PO BID for 30 Days, #60 02/26/24 Lidocaine (Lidocaine Topical Pain Pa) 4 % Pad, 1 PATCH TOP DAILY 06/28/23 Gabapentin (Gabapentin) 800 Mg Tab, 1 TAB PO BID for 30 Days, #60 06/28/23 Ipratropium-Albuterol (COMBIVENT RESPIMAT) Respimat Aer, 1 PUFF INH QID 05/14/23 Dapagliflozin Propanediol (Farxiga) 10 Mg Tab, 1 TAB PO DAILY for 30 Days, #30 05/14/23 Beclomethasone Dipropionate (Qvar Redihaler) 80 Mcg/Act Aer, 1 PUFF INH BID for 30 Days, #10.6 02/27/23 Silver Sulfadiazine (Silver Sulfadiazine) 1 % Cre, 1 APPLIC TOP DAILY for 30 Days, #50 02/27/23 Oxybutynin Chloride (Ditropan Xl) 5 Mg Tab, 15 MG PO DAILY for 30 Days, #30 02/27/23 Trazodone Hcl (Trazodone Hcl) 100 Mg Tab, 4 TAB PO HS for 30 Days, #120 02/27/23 Clopidogrel Bisulfate (CLOPIDOGREL) 75 Mg Tab, 1 TAB PO DAILY for 30 Days, #30 02/07/23 Pantoprazole Sodium Sesquihydr (Pantoprazole Sodium) 40 Mg Tab, 1 TAB PO QAM 02/07/23 Bupropion Hcl (Bupropion Hcl) 75 Mg Tab, 2 TAB PO DAILY for 30 Days, #60 11/10/17 Current Medications Current Medications Medications (Trade) Dose Ordered Sig/Yvette Route PRN Reason Start Time Stop Time Status Last Admin Norepinephrine Bitartrate 250 ml @ 3.75 mls/hr Q24H IV 01/17/25 11:30 01/17/25 15:11 DC Morphine Sulfate 1 mg Q4HP PRN IV SEVERE PAIN (7-10 PAIN SCALE) 01/17/25 11:30 01/17/25 16:50 Norepinephrine Bitartrate 32 mg/ Sodium Chloride 250 ml @ 0.938 mls/ hr Q24H IV 01/17/25 15:15 01/17/25 18:15 Vancomycin HCl 0 ml @ 0 mls/hr PER PHARMACY IV 01/17/25 15:30 Vancomycin HCl 250 ml @ 250 mls/hr Q1H IV 01/17/25 15:30 01/17/25 17:29 DC 01/17/25 16:30 Midodrine (Proamatine Tablet) 2.5 mg TID@0600,1200,1800 PO 01/18/25 12:00 Family History: Alcoholism G8 MOTHER, Onset:Unknown Cancer G8 SISTER (uterine cancer) Cardiovascular disease G8 SISTER Cerebrovascular accident (CVA) G8 SISTER Chronic obstructive pulmonary disease G8 SISTER Depression G8 SISTER Diabetes mellitus G8 SISTER G8 SISTER Family history: Cardiovascular disease Family history: Depression (situation) Family history: Hypertension Family history: Hypertension Glaucoma MATERNAL GPA Sepsis Stroke Stroke Review of Systems Shortness of breath and cough H&P Exam Vital Signs/I&O Vital Sign Date Time Temp Pulse Resp B/P (MAP) Pulse Ox O2 Delivery O2 Flow Rate FiO2 01/18/25 09:00 68 19 111/57 (75) 97 01/18/25 08:00 97.6 97.6 01/18/25 06:00 Nasal Cannula* 1 24 Intake and Output 01/17/25 01/18/25 19:00 07:00 Intake Total 952 ml 974.0 ml Output Total 300 ml 500 ml Balance 652 ml 474.0 ml Intake Oral 700 ml 900 ml IV Total 252 ml 74.0 ml Output Urine Total 300 ml 500 ml Physical Exam Morbidly obese male Mildly in distress due to shortness of breath positive cough Expiratory wheezes with bilateral crackles at the lower bases Bilateral 2+ ankle edema Labs/Diagnostic Data Labs/Diagnostic Data Laboratory Tests Test 01/18/25 08:13 01/18/25 05:59 01/18/25 04:55 01/17/25 21:52 Range/Units Lactic Acid Level 1.1 0.4-2.0 mmol/L POC Glucose 218 H 185 H 70-106 mg/dl White Blood Count 14.2 #H 4.4-10.8 10^3/uL Red Blood Count 3.37 L 4.5-5.90 10^6/uL Hemoglobin 8.6 L 13.5-17.5 g/dL Hematocrit 28.3 L 41.0-53.0 % Mean Corpuscular Volume 84.1 80.0-100.0 fL Mean Corpuscular Hemoglobin 25.6 L 28.0-32.0 pg Mean Corpuscular Hemoglobin Concent 30.4 L 32.0-36.0 g/dL Red Cell Distribution Width 18.7 H 11.8-14.3 % Platelet Count 269 140-450 10^3/uL Mean Platelet Volume 9.8 6.9-10.8 fL Neutrophils (%) (Auto) 91.7 H 37.0-80.0 % Lymphocytes (%) (Auto) 5.1 L 10.0-50.0 % Monocytes (%) (Auto) 3.1 0.0-12.0 % Eosinophils (%) (Auto) 0.0 0.0-7.0 % Basophils (%) (Auto) 0.1 0.0-2.0 % Neutrophils # (Auto) 13.0 H 1.6-8.6 10 ^3/uL Lymphocytes # (Auto) 0.7 0.4-5.4 10 ^3/uL Monocytes # (Auto) 0.4 0-1.3 10 ^3/uL Eosinophils # (Auto) 0 0-0.8 10 ^3/uL Basophils # (Auto) 0 0-0.2 10 ^3/uL Nucleated Red Blood Cells 0.0 % Sodium Level 141 136-145 mmol/L Potassium Level 4.2 3.5-5.1 mmol/L Chloride Level 106 98-107 mmol/L Carbon Dioxide Level 27 20-31 mmol/L Anion Gap 8 5-15 Blood Urea Nitrogen 41 H 9-23 mg/dL Creatinine 1.94 H 0.700-1.30 mg/dL Glomerular Filtration Rate Calc 36 >90 mL/min BUN/Creatinine Ratio 21.1 H 10.0-20.0 Serum Glucose 219 H 74-106 mg/dL Calcium Level 8.4 L 8.7-10.4 mg/dL Magnesium Level 2.1 1.6-2.6 mg/dL Total Bilirubin 0.2 0.2-1.0 mg/dL Aspartate Amino Transferase (AST) 13 13-40 U/L Alanine Aminotransferase (ALT) 10 7-40 U/L Alkaline Phosphatase 46 46-116 U/L Total Protein 6.3 5.7-8.2 g/dL Albumin 2.8 L 3.2-4.8 g/dL Random Vancomycin Level 16.9 H 5-10 ug/mL Test 01/17/25 16:53 01/17/25 15:41 01/17/25 13:46 01/17/25 10:29 Range/Units POC Glucose 145 H 168 H 70-106 mg/dl Lactic Acid Level 2.2 *H 3.1 *H 0.4-2.0 mmol/L Test 01/17/25 09:56 01/17/25 08:25 01/17/25 06:16 01/16/25 21:21 Range/Units White Blood Count 10.7 # 4.4-10.8 10^3/uL Red Blood Count 3.58 L 4.5-5.90 10^6/uL Hemoglobin 9.3 L 13.5-17.5 g/dL Hematocrit 30.1 L 41.0-53.0 % Mean Corpuscular Volume 84.2 80.0-100.0 fL Mean Corpuscular Hemoglobin 25.9 L 28.0-32.0 pg Mean Corpuscular Hemoglobin Concent 30.8 L 32.0-36.0 g/dL Red Cell Distribution Width 18.8 H 11.8-14.3 % Platelet Count 291 140-450 10^3/uL Mean Platelet Volume 9.3 6.9-10.8 fL Neutrophils (%) (Auto) 88.0 H 37.0-80.0 % Lymphocytes (%) (Auto) 7.7 L 10.0-50.0 % Monocytes (%) (Auto) 4.2 0.0-12.0 % Eosinophils (%) (Auto) 0.0 0.0-7.0 % Basophils (%) (Auto) 0.1 0.0-2.0 % Neutrophils # (Auto) 9.4 H 1.6-8.6 10 ^3/uL Lymphocytes # (Auto) 0.8 0.4-5.4 10 ^3/uL Monocytes # (Auto) 0.4 0-1.3 10 ^3/uL Eosinophils # (Auto) 0 0-0.8 10 ^3/uL Basophils # (Auto) 0 0-0.2 10 ^3/uL Nucleated Red Blood Cells 0.0 % Sodium Level 143 136-145 mmol/L Potassium Level 4.5 3.5-5.1 mmol/L Chloride Level 110 H 98-107 mmol/L Carbon Dioxide Level 27 20-31 mmol/L Anion Gap 6 5-15 Blood Urea Nitrogen 38 H 9-23 mg/dL Creatinine 1.76 H 0.700-1.30 mg/dL Glomerular Filtration Rate Calc 41 >90 mL/min BUN/Creatinine Ratio 21.6 H 10.0-20.0 Serum Glucose 173 H 74-106 mg/dL Calcium Level 8.8 8.7-10.4 mg/dL Magnesium Level 2.1 1.6-2.6 mg/dL Total Bilirubin 0.2 0.2-1.0 mg/dL Aspartate Amino Transferase (AST) 19 13-40 U/L Alanine Aminotransferase (ALT) 13 7-40 U/L Alkaline Phosphatase 48 46-116 U/L Ammonia < 10 L 11-32 umol/L Total Protein 6.3 5.7-8.2 g/dL Albumin 2.8 L 3.2-4.8 g/dL Blood Gas Specimen Type Arterial Blood Gas Sample Site Right radial Blood Gas Patient Temperature 37.0 Arterial Blood Date Drawn [id number] Arterial Blood pH 7.420 7.350-7.450 Arterial Blood Partial Pressure CO2 39.3 35.0-48.0 mmHg Arterial Blood Partial Pressure O2 75.2 L 83.0-108.0 mmHg Arterial Blood HCO3 24.9 21.0-28.0 mmol/L Arterial Blood Oxygen Saturation 94.1 94.0-98.0 % Arterial Blood Base Excess 0.5 -2.0-3.0 mmol/L Arterial Blood Oxyhemoglobin 93.3 L 94.0-98.0 % Arterial Blood Carboxyhemoglobin 0.6 0.5-1.5 % Arterial Blood Methemoglobin 0.2 0.0-1.5 % Arterial Blood Deoxyhemoglobin 5.9 H 0.0-5.0 % Jose Roberto Test Yes Blood Gas Total Hemoglobin 10.50 L 13.5-17.5 g/dL Blood Gas Liter Flow 1.00 Blood Gas Modality Nasal cannula FiO2 % 24.0 POC Glucose 162 H 170 H 70-106 mg/dl Test 01/16/25 17:30 01/16/25 15:28 01/16/25 15:19 01/16/25 12:21 Range/Units POC Glucose 132 H 131 H 70-106 mg/dl Blood Gas Specimen Type Arterial Blood Gas Sample Site Left brachial Blood Gas Patient Temperature 37.0 Arterial Blood Date Drawn [id number] Arterial Blood pH 7.389 7.350-7.450 Arterial Blood Partial Pressure CO2 46.8 35.0-48.0 mmHg Arterial Blood Partial Pressure O2 64.7 L 83.0-108.0 mmHg Arterial Blood HCO3 27.6 21.0-28.0 mmol/L Arterial Blood Oxygen Saturation 90.8 L 94.0-98.0 % Arterial Blood Base Excess 2.2 -2.0-3.0 mmol/L Arterial Blood Oxyhemoglobin 90.2 L 94.0-98.0 % Arterial Blood Carboxyhemoglobin 0.2 L 0.5-1.5 % Arterial Blood Methemoglobin 0.5 0.0-1.5 % Arterial Blood Deoxyhemoglobin 9.1 H 0.0-5.0 % Jose Roberto Test N/a Blood Gas Total Hemoglobin 10.60 L 13.5-17.5 g/dL Blood Gas Liter Flow 1.00 Blood Gas Modality Nasal cannula FiO2 % 24.0 White Blood Count 6.0 4.4-10.8 10^3/uL Red Blood Count 3.68 L 4.5-5.90 10^6/uL Hemoglobin 9.8 L 13.5-17.5 g/dL Hematocrit 30.8 #L 41.0-53.0 % Mean Corpuscular Volume 83.7 80.0-100.0 fL Mean Corpuscular Hemoglobin 26.6 L 28.0-32.0 pg Mean Corpuscular Hemoglobin Concent 31.8 L 32.0-36.0 g/dL Red Cell Distribution Width 19.0 H 11.8-14.3 % Platelet Count 256 140-450 10^3/uL Mean Platelet Volume 9.5 6.9-10.8 fL Neutrophils (%) (Auto) 81.8 H 37.0-80.0 % Lymphocytes (%) (Auto) 12.0 10.0-50.0 % Monocytes (%) (Auto) 4.1 0.0-12.0 % Eosinophils (%) (Auto) 1.5 0.0-7.0 % Basophils (%) (Auto) 0.6 0.0-2.0 % Neutrophils # (Auto) 4.9 1.6-8.6 10 ^3/uL Lymphocytes # (Auto) 0.7 0.4-5.4 10 ^3/uL Monocytes # (Auto) 0.2 0-1.3 10 ^3/uL Eosinophils # (Auto) 0.1 0-0.8 10 ^3/uL Basophils # (Auto) 0 0-0.2 10 ^3/uL Nucleated Red Blood Cells 0.0 % Sodium Level 146 H 136-145 mmol/L Potassium Level 4.7 3.5-5.1 mmol/L Chloride Level 111 H 98-107 mmol/L Carbon Dioxide Level 28 20-31 mmol/L Anion Gap 7 5-15 Blood Urea Nitrogen 33 H 9-23 mg/dL Creatinine 1.64 H 0.700-1.30 mg/dL Glomerular Filtration Rate Calc 44 >90 mL/min BUN/Creatinine Ratio 20.1 H 10.0-20.0 Serum Glucose 121 H 74-106 mg/dL Calcium Level 8.6 L 8.7-10.4 mg/dL Magnesium Level 2.0 1.6-2.6 mg/dL Total Bilirubin 0.2 0.2-1.0 mg/dL Aspartate Amino Transferase (AST) 27 13-40 U/L Alanine Aminotransferase (ALT) 16 7-40 U/L Alkaline Phosphatase 52 46-116 U/L Ammonia 19 11-32 umol/L Total Protein 6.6 5.7-8.2 g/dL Albumin 3.0 L 3.2-4.8 g/dL Test 01/16/25 06:40 01/16/25 06:17 01/16/25 04:57 01/16/25 01:14 Range/Units White Blood Count 5.8 4.4-10.8 10^3/uL Red Blood Count 3.32 L 4.5-5.90 10^6/uL Hemoglobin 9.1 L 13.5-17.5 g/dL Hematocrit 27.6 #L 41.0-53.0 % Mean Corpuscular Volume 83.2 80.0-100.0 fL Mean Corpuscular Hemoglobin 27.4 L 28.0-32.0 pg Mean Corpuscular Hemoglobin Concent 32.9 32.0-36.0 g/dL Red Cell Distribution Width 18.6 H 11.8-14.3 % Platelet Count 250 140-450 10^3/uL Mean Platelet Volume 8.9 6.9-10.8 fL Neutrophils (%) (Auto) 60.8 37.0-80.0 % Lymphocytes (%) (Auto) 24.7 10.0-50.0 % Monocytes (%) (Auto) 11.5 0.0-12.0 % Eosinophils (%) (Auto) 2.4 0.0-7.0 % Basophils (%) (Auto) 0.6 0.0-2.0 % Neutrophils # (Auto) 3.5 1.6-8.6 10 ^3/uL Lymphocytes # (Auto) 1.4 0.4-5.4 10 ^3/uL Monocytes # (Auto) 0.7 0-1.3 10 ^3/uL Eosinophils # (Auto) 0.1 0-0.8 10 ^3/uL Basophils # (Auto) 0 0-0.2 10 ^3/uL Nucleated Red Blood Cells 0.0 % Sodium Level 147 #H 136-145 mmol/L Potassium Level 4.1 3.5-5.1 mmol/L Chloride Level 111 H 98-107 mmol/L Carbon Dioxide Level 28 20-31 mmol/L Anion Gap 8 5-15 Blood Urea Nitrogen 29 #H 9-23 mg/dL Creatinine 1.39 H 0.700-1.30 mg/dL Glomerular Filtration Rate Calc 54 >90 mL/min BUN/Creatinine Ratio 20.9 H 10.0-20.0 Serum Glucose 113 H 74-106 mg/dL Calcium Level 8.6 L 8.7-10.4 mg/dL Total Bilirubin 0.3 0.2-1.0 mg/dL Aspartate Amino Transferase (AST) 19 13-40 U/L Alanine Aminotransferase (ALT) 12 7-40 U/L Alkaline Phosphatase 45 L 46-116 U/L B-Type Natriuretic Peptide 151.22 0-100 pg/mL Total Protein 5.8 5.7-8.2 g/dL Albumin 2.6 L 3.2-4.8 g/dL POC Glucose 101 70-106 mg/dl Troponin I High Sensitivity 74 *H 74 *H </=54 ng/L Test 01/15/25 23:59 01/15/25 16:52 01/15/25 14:57 01/15/25 14:37 Range/Units Troponin I High Sensitivity 75 *H </=54 ng/L Urine Color Light-yellow Yellow Urine Clarity Clear Clear Urine pH 6.0 5.0-9.0 Urine Specific [place] 1.014 1.001-1.035 Urine Protein Negative Negative Urine Ketones 1+ H Negative Urine Blood Negative Negative /uL Urine Nitrite Negative Negative Urine Bilirubin Negative Negative Urine Urobilinogen Normal Negative mg/dL Urine Leukocyte Esterase Negative Negative /uL Urine RBC <1 0 - 3 /hpf Urine Microscopic WBC < 1 0-3 /HPF Urine Squamous Epithelial Cells None seen <5 /hpf Urine Bacteria None seen None Seen /hpf Urine Hyaline Casts Few 0 - 2 /lpf Urine Glucose 2+ H Normal mg/dL Urine Opiates Screen Neg NEGATIVE Urine Fentanyl Screen Neg NEGATIVE Urine Barbiturates Screen Neg NEGATIVE Urine Phencyclidine Screen Neg NEGATIVE Urine Amphetamines Screen Neg NEGATIVE Urine Benzodiazepines Screen Neg NEGATIVE Urine Cocaine Screen Neg NEGATIVE Urine Cannabinoids Screen Neg NEGATIVE Influenza Type A Antigen Negative Negative Influenza Type B Antigen Negative Negative SARS-CoV-2 Antigen (Rapid) Negative NEGATIVE Lactic Acid Level 1.5 0.4-2.0 mmol/L Test 01/15/25 12:51 01/15/25 12:41 Range/Units Hemoglobin A1c 5.3 <5.7 % A1C White Blood Count 7.1 4.4-10.8 10^3/uL Red Blood Count 4.05 L 4.5-5.90 10^6/uL Hemoglobin 10.7 L 13.5-17.5 g/dL Hematocrit 33.8 #L 41.0-53.0 % Mean Corpuscular Volume 83.4 80.0-100.0 fL Mean Corpuscular Hemoglobin 26.4 L 28.0-32.0 pg Mean Corpuscular Hemoglobin Concent 31.7 L 32.0-36.0 g/dL Red Cell Distribution Width 18.5 H 11.8-14.3 % Platelet Count 298 140-450 10^3/uL Mean Platelet Volume 9.0 6.9-10.8 fL Neutrophils (%) (Auto) 72.1 37.0-80.0 % Lymphocytes (%) (Auto) 17.8 10.0-50.0 % Monocytes (%) (Auto) 8.5 0.0-12.0 % Eosinophils (%) (Auto) 1.0 0.0-7.0 % Basophils (%) (Auto) 0.6 0.0-2.0 % Neutrophils # (Auto) 5.1 1.6-8.6 10 ^3/uL Lymphocytes # (Auto) 1.3 0.4-5.4 10 ^3/uL Monocytes # (Auto) 0.6 0-1.3 10 ^3/uL Eosinophils # (Auto) 0.1 0-0.8 10 ^3/uL Basophils # (Auto) 0 0-0.2 10 ^3/uL Nucleated Red Blood Cells 0.0 % Prothrombin Time 11.0 9.3-11.8 sec Prothrombin Time INR 1.04 0.9-1.15 Activated Partial Thromboplast Time 28.6 24.5-34.5 SEC Sodium Level 142 # 136-145 mmol/L Potassium Level 3.9 3.5-5.1 mmol/L Chloride Level 110 H 98-107 mmol/L Carbon Dioxide Level 22 20-31 mmol/L Anion Gap 10 5-15 Blood Urea Nitrogen 18 9-23 mg/dL Creatinine 1.01 0.700-1.30 mg/dL Glomerular Filtration Rate Calc 80 >90 mL/min BUN/Creatinine Ratio 17.8 10.0-20.0 Serum Glucose 90 74-106 mg/dL Calcium Level 9.0 8.7-10.4 mg/dL Phosphorus Level 3.0 2.4-5.1 mg/dL Magnesium Level 2.1 1.6-2.6 mg/dL Total Bilirubin 0.4 0.2-1.0 mg/dL Aspartate Amino Transferase (AST) 23 13-40 U/L Alanine Aminotransferase (ALT) 10 7-40 U/L Alkaline Phosphatase 52 46-116 U/L Troponin I High Sensitivity 56 *H </=54 ng/L Total Protein 7.4 5.7-8.2 g/dL Albumin 3.3 3.2-4.8 g/dL Triglycerides Level 65 < 150 mg/dL Cholesterol Level 139 < 200 mg/dL LDL Cholesterol 90 < 100 mg/dL HDL Cholesterol 37 L 40-59 mg/dL Vitamin B12 Level 456 211-911 pg/mL Vitamin D 25-Hydroxy 13.1 L 30.0-100 ng/mL Thyroid Stimulating Hormone (TSH) 1.05 0.55-4.78 uIU/mL Microbiology Date/Time Source Procedure Growth Status 01/17/25 00:13 Nose MRSA Screen - Final Methicillin Resistant S.aureus Complete Assessment Acute kidney injury hemodynamically mediated in the setting of hypotension Baseline renal function is normal Hypotension in the setting of opioid use and sepsis COPD exacerbation Congestive heart failure decompensated Pneumonia Sepsis Anemia Albuterol nebulizers Broad-spectrum antibiotics for community-acquired pneumonia Lasix fluid restriction due to hypervolemia on fluid overload I recommend Vazquez catheter placement and explained the importance of urinary output recording as well as diagnosis however patient refused We will obtain postvoid bladder scan after next void Lasix IV push recommend q.12 hours Monitor electrolytes P.o. midodrine if patient has hypotension Rest of care as per primary medical team Plan discussed with: Patient PURVI WHEATLEY MD Jan 18, 2025 10:16
--- NOTE | 2025-01-18 10:21 | DVH ---
US KIDNEY Comparison: US KIDNEY on DOS: 06/27/23 Indication: bettie Technique: Ultrasound exam of the retroperitoneum was performed. Findings: The right kidney is 10.6 cm. The left kidney is 9.9 cm. No collecting system dilatation. Bilateral renal cysts including 4.6 cm left upper pole and 3.1 cm right upper pole cysts. The prevoid volume of the bladder measures 192 cc . Incidental note of small right pleural effusion. IMPRESSION: NO COLLECTING SYSTEM DILATATION.
[2025-01-18] MEDS: FUROSEMIDE 40 MG/4 ML VIAL IV ONE (10:25)
--- NOTE | 2025-01-18 11:48 | DVHPNRES ---
Progress Note Date Seen: Jan 18, 2025 Resident Creating Document: MAIRA HENRY Medical Necessity Reason Pt with a Central, PICC or Fol: No (RN, sister) Subjective Review of Systems Patient is 70 years old male with past medical history of Hypertension, dyslipidemia, diabetes, CAD with history of CA s/p PCI with 5 stents DESon DAPT, HFpEF, Paroxysmal atrial fibrillation (CV-7), tachy-leandro syndrome s/p leadless pacemaker placement, COPD on home oxygen (2L/min), CVA with residual right weakness, bed bound after exploratory surgery for kidney disease per patient,, urinary incontinence came with a complaint of worsening shortness of breaths. As per patient he has been having worsening shortness of breaths since yesterday. Shortness of breath associated with cough with a yellowish sputum production. Patient also endorsed chest pain on the left side, started when he was on bed, gradual, 8/10, pressure-like, radiating to the left arm, no aggravating or relieving factor. On further inquiry patient reported he has bilateral leg swelling but does not know how long it has been going on. Patient also endorsed nausea but no vomiting. Patient denied fever, palpitation, acute joint rash, acute dysarthria or change in vision. Initial lab workup revealed hemoglobin 10.7, RDW 18.5, potassium 3.9, serum creatinine 1. 0 1, GFR 80, troponin> I 56> 75> 74> 74. UA negative, UDS negative. Chest [id number] pulmonary edema. trace bibasilar effusion. Transesophageal echo on 09/15/2024 revealed LVEF 60%, severe LVH, Past medical history: Hypertension, dyslipidemia, diabetes, CAD with history of CA s/p PCI with 5 stents, HFpEF, Paroxysmal atrial fibrillation (CV 7), tachy- leandro syndrome s/p leadless pacemaker placement, COPD on home oxygen (2L/min), CVA in 3 opportunities with residual right weakness, bed bound after exploratory surgery for kidney disease per patient (patient has normal kidney function) in 2025, urinary incontinence. Surgical history: PCI, leadless pacemaker placement, 2023 ex-lap Family history: Non contributory Social history: Lives in [place] with family (NOK sister). Ex-tobacco abuse (3 pack year history) quit 50 years ago. Denies current tobacco, alcohol and other drug abuse. Allergy: Denies Home medication: Aspirin, Clopidogrel, Atorvastatin, Bupropion, Oxybutynin, Dapaglifliozin, Furosemide, inhaler ROS Cardiovascular- chest pain, cough, leg swelling Respiratory den shortness of breath, cough with the yellow Gastrointestinal- denies any rectal bleeding, nausea or vomiting Musculoskeletal-denies acute joint swelling or tenderness or redness Neurological- denies acute dysarthria, dysphagia, change in vision Psychiatry- denies depression or SI or HI Skin- denies acute rash or purpura Patient is seen today at bedside. Labs and chart reviewed. As per nursing staff patient was being noncompliant with the treatment overnight and also in the morning. Spoke with the patient counseled about the importance of treatment clearance Patient is awake and alert. Ordered oral suction. ABG revealed pH 7.4, pCO2 39.3, PO2 75.2, bicarbonate 24.9. Started patient on Levophed, ordered Lasix 40 mg IV stat. Discontinued ceftriaxone, ordered cefepime, ordered blood culture, urine culture for further evaluation and care. Ordered PICC line Lactic acid 1.5> 3.1 MRSA screening positive Ordered vancomycin as per pharmacy protocol Due to patient's history of heart failure and with the bilateral leg edema, IV fluid administration has to be modified, throughout the day most of the time patient's MAP was >65, ordered Levophed Bedside POCUS was done, dilated IVC Provider spoke to patient's sister Maribel, [phone], discussed patient's current medical condition plan of care and answered her questions. On 01/18/25, Patient was seen and examined at bedside. Overnight events were reviewed. The patient refused Lasix and Vazquez catheter placement and was instructed to notify nursing staff when ready to urinate for post-void bladder scan. The patient voided 475 mL in a urinal with a residual volume of 52 mL. Objective vital signs Vital Sign Date Time Temp Pulse Resp B/P (MAP) Pulse Ox O2 Delivery O2 Flow Rate FiO2 01/18/25 09:00 68 19 111/57 (75) 97 01/18/25 08:00 97.6 97.6 01/18/25 06:00 Nasal Cannula* 1 24 Total Intake and Output 01/17/25 01/17/25 01/18/25 15:00 23:00 07:00 Intake Total 250 ml 885.0 ml 791.0 ml Output Total 300 ml 500 ml Balance 250 ml 585.0 ml 291.0 ml medications Current Medications Medications Dose Ordered Sig/Yvette Route Start Time Stop Time Status Last Admin Dose Admin Ondansetron HCl 4 mg Q4HP PRN IV 01/15/25 14:15 01/15/25 15:40 4 MG Nitroglycerin 0.4 mg Q5MINP PRN SL 01/15/25 14:15 01/15/25 23:14 0.4 MG Bupropion HCl 150 mg DAILY PO 01/16/25 10:00 01/18/25 10:28 150 MG Clopidogrel Bisulfate 75 mg DAILY PO 01/16/25 10:00 01/18/25 10:28 75 MG Empaglifozin 10 mg DAILY PO 01/16/25 10:00 01/18/25 10:28 10 MG Pantoprazole Sodium 40 mg QAM PO 01/16/25 07:00 01/18/25 06:32 40 MG Ranolazine 500 mg BID PO 01/15/25 22:00 01/18/25 10:26 500 MG Silver Sulfadiazine 1 applic DAILY TOP 01/16/25 10:00 01/18/25 10:24 1 APPLIC Atorvastatin Calcium 80 mg HS PO 01/15/25 22:00 01/17/25 21:30 80 MG Lactulose 15 ml BID PRN PO 01/15/25 15:00 Levetiracetam 750 mg BID PO 01/15/25 22:00 01/18/25 10:25 750 MG Patient Own Medication 1 patch DAILY TOP 01/16/25 10:00 Ipratropium [place] 0.5 mg Q6HWA NEB 01/15/25 18:00 01/18/25 05:59 0.5 MG Levalbuterol HCl 0.625 mg Q6HR NEB 01/15/25 18:00 01/18/25 05:59 0.625 MG Azithromycin 250 ml @ 125 mls/hr DAILY IV 01/16/25 10:00 01/18/25 10:25 125 MLS/HR Budesonide 0.5 mg BID NEB 01/15/25 22:00 01/18/25 06:00 0.5 MG Diagnostic Test (Pha) 1 strip ACHS 01/16/25 07:00 01/18/25 06:06 1 STRIP Insulin Human Regular ACHS SC 01/16/25 07:00 01/18/25 06:17 4 UNITS Dextrose 50 ml UD PRN IV 01/16/25 00:15 Methylprednisolone Sodium Succinate 40 mg BID IV 01/16/25 10:30 01/18/25 10:26 40 MG Enoxaparin Sodium 120 mg Q12HR SC 01/16/25 22:00 01/18/25 10:25 120 MG Mupirocin 1 applic BID TOP 01/16/25 22:00 01/18/25 10:24 1 APPLIC Cefepime HCl 50 ml @ 12.5 mls/hr Q12HR IV 01/17/25 10:00 01/17/25 21:32 12.5 MLS/HR Morphine Sulfate 1 mg Q4HP PRN IV 01/17/25 11:30 01/17/25 16:50 1 MG Norepinephrine Bitartrate 32 mg/ Sodium Chloride 250 ml @ 0.938 mls/ hr Q24H IV 01/17/25 15:15 01/17/25 18:15 0.938 MLS/HR Vancomycin HCl 0 ml @ 0 mls/hr PER PHARMACY IV 01/17/25 15:30 Midodrine 2.5 mg TID@0600,1200,1800 PO 01/18/25 12:00 Furosemide 40 mg BIDD IV 01/18/25 18:00 Examination General examination- patient awake, alert, oriented HEENT- PEERLA, no acute nasal discharge Cardiovascular- S1-S2 audible, rate and rhythm regular, no murmur Respiratory- bilateral lung crackles, wheezing++ Gastrointestinal-nontender, bowel sound+. Nondistended Musculoskeletal-no acute joint swelling or tenderness or redness Lower extremity- leg edema++ Neurological- right-sided weakness on upper and lower extremity Psychiatry- denies depression or SI or HI Skin- no acute rash or purpura laboratory and microbiology Laboratory Tests 01/18/25 04:55 Test 01/18/25 04:55 Range/Units Serum Glucose 219 H 74-106 mg/dL Microbiology Date/Time Source Procedure Growth Status 01/17/25 09:58 Blood Blood Culture - Preliminary NO GROWTH AFTER 24 HOURS OF INCUBATION. Resulted 01/17/25 00:13 Nose MRSA Screen - Final Methicillin Resistant S.aureus Complete Labs and/or images reviewed: Labs reviewed by me, Image(s) reviewed by me Problem List/Assessment/Plan Problem List/Assessment/Plan Problem List/Assessment/Plan Assessment and plan- # sepsis likely due to pneumonia #Acute on chronic respiratory failure #COPD exacerbation #Community acquired pneumonia Gram+/Gram- -Chest X-ray: Pulmonary vascular congestion. -chest x-ray bilateral pulmonary edema, trace pleural effusion -discontinued ceftriaxone, ordered cefepime -continue azithromycin -pending sputum culture, blood culture, urine culture -lactic acid 3.1 -Zosyn as per pharmacy protocol Bedside POCUS was done, dilated IVC present -due to history of heart failure, leg edema, IV fluid dosing has to be titrated throughout the day most of the time patient's MAP was >65, -ordered Levophed #NSTEMI likely type II due to demand lead ischemia #Ruled out acute coronary syndrome #Chest pain likely pleuritic due to pneumonia #CAD with history of CA s/p PCI with 5 stents #Hypertension #Dyslipidemia -EKG no acute changes, premature ventricular contraction - troponin> I 56> 75> 74> 74 -Transesophageal echo on 09/15/2024 revealed LVEF 60%, severe LVH, -continue Plavix 75 mg p.o. daily -continue ranolazine ER 500 mg p.o. b.i.d. Atorvastatin 80 mg q.h.s. -continue heparin as prescribed -Jardiance 10 mg p.o. daily -holding amlodipine # hypotension- -ordered Levophed -monitor blood pressure #Paroxysmal atrial fibrillation (SV 7) - secondary hypercoagulability state #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 -continue heparin as prescribed # KOLE likely due to VMN -avoid dehydration and nephrotoxic drugs -monitor CMP #Chronic diastolic congestive heart failure (HFpEF, LVEF 60%) -Jardiance 10 mg p.o. daily -Lasix PRN -strict I&O # Ruled out acute urinary retension Kidney US: bilateral renal cysts (4.6 cm left upper pole, 3.1 cm right upper pole) and small right pleural effusion, but no obstruction. Post-void bladder scan: Acute urinary retention was suspected, but the bladder scan after voiding showed 475 mL voided with only 52 mL residual, which is within normal limits (typically <100 mL is acceptable). #Diabetes mellitus type 2 -insulin as prescribed -monitor blood sugar #History of thyroid disease: Resolved #History of CVA with right-sided weakness #Bed-bound #Morbid obesity -counseled about the effect of obesity on health Status OMARI Goals of care, Code status full code ; discussed with >15 minutes PUD prophylaxis: Pantoprazole DVT prophylaxis: Heparin Plan discussed with Dr. Callahan, nursing staff, Total time spent on patient evaluation, chart review, assessment and plan, discussion discussion >75 minutes Plan discussed with: Patient My Orders My Orders Orders - MAIRA HENRY RESIDENT Procedure Category Date Status Time Comprehensive LAB 01/19/25 Verified Metabolic Panel 04:00 Dietary Evaluation Review Comments: Request approval for Patricio to promote wound healing Physical therapy if possible Weight loss and less pressure on this buttlock Expected Outcomes/Goals: gradually healed wounds gradual wt loss Improved nutrition related lab values Date of Service: Jan 18, 2025 Billing Provider: DANIEL CALLAHAN MD Common Visit Codes: [id number] INP/OBS CARE(HIGH) MAIRA HENRY RESIDENT Jan 18, 2025 11:48
[2025-01-18] MEDS: MIDODRINE HCL 10 MG TAB PO SCH (12:33)
[2025-01-18] MEDS: KETOROLAC TROMETH 30 MG/ML 1ML VIAL IV ONE (13:00)
--- NOTE | 2025-01-18 14:24 | MEDREC ---
[facility] Intervention Section I [facility] Intervention: Review courses of therapy (DUE TO PROLONG QTc > 500 PLEASE CONSIDER SWITCHING AZITHROMYCIN TO DOXYCYCLINE ) YONY ANTOINE PHARMACIST Jan 18, 2025 14:23
[2025-01-18] MEDS: VANCOMYCIN 1GM/250ML KIT 250 ML IV ONE (16:42)
[2025-01-18] MEDS: FUROSEMIDE 40 MG/4 ML VIAL IV SCH (17:39)
[2025-01-18] MEDS ORDERED: OXYCODONE W/ ACETAMINOPHEN 5/325MG TABLET PO PRN (20:30)
[2025-01-18] MEDS: DOXYCYCLINE 100MG/100ML 100 ML IV SCH (22:03)
[2025-01-19] VITALS (17 sets, daily range): BP systolic 85–133; BP diastolic 56–113; PULSE 56–78; RESP 16–23; TEMP 97–98.7; O2SAT 95–100
[2025-01-19 05:25] LABS: Nucleated Red Blood Cells % 0.0 %
[2025-01-19 05:27] LABS: Hematocrit 28.6 % (41.0-53.0); Hemoglobin 9.0 g/dL (13.5-17.5); Mean Corpuscular Hemoglobin 26.2 pg (28.0-32.0); Mean Corpuscular Volume 83.5 fL (80.0-100.0)
[2025-01-19 05:46] LABS: Alkaline Phosphatase 53 U/L (46-116); Anion Gap 5 (5-15); BUN/Creatinine Ratio 26.6 (10.0-20.0); Carbon Dioxide 28 mmol/L (20-31); Potassium 4.3 mmol/L (3.5-5.1); Sodium 141 mmol/L (136-145); Total Protein 6.1 g/dL (5.7-8.2)
[2025-01-19 05:47] LABS: Blood Urea Nitrogen 37 mg/dL (9-23); Chloride 108 mmol/L (98-107); Glucose 144 mg/dL (74-106)
[2025-01-19 05:48] LABS: Alanine Aminotransferase < 9 U/L (7-40); Albumin 2.7 g/dL (3.2-4.8); Bilirubin, Total 0.2 mg/dL (0.2-1.0); Calcium 8.4 mg/dL (8.7-10.4)
[2025-01-19] MEDS: LEVALBUTEROL HCL 1.25 MG/3 ML NEB NEB SCH (10:02)
[2025-01-19] MEDS: IPRATROPIUM BROM 0.5 MG/2.5ML INH SOL NEB SCH (10:02)
[2025-01-19] MEDS: EMPAGLIFLOZIN 10 MG TAB PO SCH (11:35)
[2025-01-19] MEDS: VANCOMYCIN 1GM/250ML KIT 250 ML IV ONE ×2 (12:00→17:02)
--- NOTE | 2025-01-19 14:20 | DVHPN2 ---
Progress Note Date Seen: Jan 19, 2025 Resident Creating Document: PUJA TOLLIVER RESIDENT Medical Necessity Reason Pt with a Central, PICC or Fol: No (RN, sister) Subjective Review of Systems Patient seen and examined at the bedside. Patient is currently on 2 L oxygen [place]. Other Systems: Patient seen and examined by myself today in rounds with the mediciene resident, I agree with his assessment and plan Objective vital signs Vital Sign Date Time Temp Pulse Resp B/P (MAP) Pulse Ox O2 Delivery O2 Flow Rate FiO2 01/19/25 13:48 98 Nasal Cannula 2.0 01/19/25 13:48 28 01/19/25 10:03 78 16 01/19/25 09:00 98.7 116/60 (78) 98.7 Total Intake and Output 01/18/25 01/18/25 01/19/25 15:00 23:00 07:00 Intake Total 250.938 ml 1102.5 ml 537.5 ml Output Total 475 ml 900 ml Balance 250.938 ml 627.5 ml -362.5 ml medications Current Medications Medications Dose Ordered Sig/Yvette Route Start Time Stop Time Status Last Admin Dose Admin Ondansetron HCl 4 mg Q4HP PRN IV 01/15/25 14:15 01/15/25 15:40 4 MG Nitroglycerin 0.4 mg Q5MINP PRN SL 01/15/25 14:15 01/15/25 23:14 0.4 MG Bupropion HCl 150 mg DAILY PO 01/16/25 10:00 01/19/25 11:36 150 MG Clopidogrel Bisulfate 75 mg DAILY PO 01/16/25 10:00 01/19/25 11:54 75 MG Pantoprazole Sodium 40 mg QAM PO 01/16/25 07:00 01/19/25 05:41 40 MG Ranolazine 500 mg BID PO 01/15/25 22:00 01/19/25 11:54 500 MG Silver Sulfadiazine 1 applic DAILY TOP 01/16/25 10:00 01/19/25 10:00 1 APPLIC Atorvastatin Calcium 80 mg HS PO 01/15/25 22:00 01/18/25 22:05 80 MG Lactulose 15 ml BID PRN PO 01/15/25 15:00 Levetiracetam 750 mg BID PO 01/15/25 22:00 01/19/25 11:34 750 MG Patient Own Medication 1 patch DAILY TOP 01/16/25 10:00 Budesonide 0.5 mg BID NEB 01/15/25 22:00 01/19/25 10:03 0.5 MG Diagnostic Test (Pha) 1 strip ACHS 01/16/25 07:00 01/19/25 11:37 1 STRIP Insulin Human Regular ACHS SC 01/16/25 07:00 01/19/25 11:35 3 UNITS Dextrose 50 ml UD PRN IV 01/16/25 00:15 Methylprednisolone Sodium Succinate 40 mg BID IV 01/16/25 10:30 01/19/25 11:33 40 MG Enoxaparin Sodium 120 mg Q12HR SC 01/16/25 22:00 01/19/25 11:34 120 MG Mupirocin 1 applic BID TOP 01/16/25 22:00 01/19/25 10:00 1 APPLIC Cefepime HCl 50 ml @ 12.5 mls/hr Q12HR IV 01/17/25 10:00 01/19/25 10:00 12.5 MLS/HR Vancomycin HCl 0 ml @ 0 mls/hr PER PHARMACY IV 01/17/25 15:30 Hold Midodrine 2.5 mg TID@0600,1200,1800 PO 01/18/25 12:00 01/19/25 11:54 2.5 MG Furosemide 40 mg BIDD IV 01/18/25 18:00 01/19/25 05:42 40 MG Ipratropium [place] 0.5 mg Q4HR NEB 01/19/25 10:00 01/19/25 10:02 0.5 MG Levalbuterol HCl 0.625 mg Q4HR NEB 01/19/25 10:00 01/19/25 10:02 0.625 MG Empaglifozin 10 mg DAILY PO 01/19/25 10:00 01/19/25 11:35 10 MG Oxycodone HCl 10 mg Q6HP PRN PO 01/19/25 07:45 01/19/25 09:57 10 MG Examination General examination- alert oriented x3 HEENT- PEERLA, no acute nasal discharge Cardiovascular- S1-S2 audible, rate and rhythm regular, no murmur Respiratory- CTAB, no wheeze or rhonchi Gastrointestinal-abdomen distended, abdominal icterus, ascites present Musculoskeletal-no acute joint swelling or tenderness or redness Lower extremity- bilateral leg edema++, bruise in the bilateral upper extremity and lower extremity laboratory and microbiology Laboratory Tests 01/19/25 04:52 Test 01/19/25 04:52 Range/Units Serum Glucose 144 H 74-106 mg/dL Microbiology Date/Time Source Procedure Growth Status 01/17/25 09:58 Blood Blood Culture - Preliminary NO GROWTH AFTER 48 HOURS OF INCUBATION. Resulted 01/17/25 00:13 Nose MRSA Screen - Final Methicillin Resistant S.aureus Complete Labs and/or images reviewed: Labs reviewed by me, Image(s) reviewed by me Problem List/Assessment/Plan Problem List/Assessment/Plan Acute kidney injury hemodynamically mediated in the setting of hypotension Baseline renal function is normal Hypotension in the setting of opioid use and sepsis COPD exacerbation Congestive heart failure decompensated Pneumonia Sepsis Anemia Recommendations Improved kidney function and urine output Monitor lab Assess fluid status daily Blood pressure management Avoid nephrotoxic agents will follow Albuterol nebulizers Broad-spectrum antibiotics for community-acquired pneumonia Lasix fluid restriction due to hypervolemia on fluid overload Vazquez catheter placement and explained the importance of urinary output recording as well as diagnosis however patient refused We will obtain postvoid bladder scan after next void Lasix IV push recommend q.12 hours Monitor electrolytes P.o. midodrine if patient has hypotension Rest of care as per primary medical team Case discussed with the Dr. Denny Plan discussed with: Patient, Other (rn) My Orders My Orders Orders - PUJA TOLLIVER RESIDENT Procedure Category Date Status Time Urine Sodium LAB 01/19/25 Logged 11:17 Urine LAB 01/19/25 Logged Protein/Creatinine Urine Protein LAB 01/19/25 Logged 11:17 Urine Creatinine LAB 01/19/25 Logged 11:17 Dietary Evaluation Review Comments: Request approval for Patricio to promote wound healing Physical therapy if possible Weight loss and less pressure on this buttlock Expected Outcomes/Goals: gradually healed wounds gradual wt loss Improved nutrition related lab values PUJA TOLLIVER RESIDENT Jan 19, 2025 14:20 HOUSTON DENNY MD Jan 19, 2025 17:05
--- NOTE | 2025-01-19 17:06 | DVHPNRES ---
Progress Note Date Seen: Jan 19, 2025 Resident Creating Document: LEAH DRAKE RESIDENT Medical Necessity Reason Pt with a Central, PICC or Fol: No (RN, sister) Subjective Review of Systems Dav Cain is a 70 year old male patient who presents to the ED with chief complaint of dyspnea and retrosternal oppressive chest pain in functional class IV which radiates to left arm and reproduces with deep breaths and coughing, associated with productive cough with white/yellow phlegm, chills, nausea and generalized weakness. Patient was discharged from this institution 24 hours before this admission with diagnosis of acute on chronic congestive heart failure. Denies any other associated symptoms. 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 Surgical history: PCI, leadless pacemaker placement, 2023 ex-lap Family history: Non contributory Social history: Lives in [place] with family (NOK sister). Ex-tobacco abuse (3 pack year history) quit 50 years ago. Denies current tobacco, alcohol and other drug abuse. Allergy: Denies Home medication: Aspirin, Clopidogrel, Atorvastatin, Bupropion, Oxybutynin, Dapaglifliozin, Furosemide, inhaler Patient seen and examined at bedside. Currently has no new complaints. Patient currently off norepinephrine, on midodrine indicated by Nephrology. Patient can be downgraded to telemetry. Objective vital signs Vital Sign Date Time Temp Pulse Resp B/P (MAP) Pulse Ox O2 Delivery O2 Flow Rate FiO2 01/19/25 13:48 98 Nasal Cannula 2.0 01/19/25 13:48 28 01/19/25 13:00 97.2 60 20 92/56 (68) 97.2 Total Intake and Output 01/18/25 01/18/25 01/19/25 15:00 23:00 07:00 Intake Total 250.938 ml 1102.5 ml 537.5 ml Output Total 475 ml 900 ml Balance 250.938 ml 627.5 ml -362.5 ml medications Current Medications Medications Dose Ordered Sig/Yvette Route Start Time Stop Time Status Last Admin Dose Admin Ondansetron HCl 4 mg Q4HP PRN IV 01/15/25 14:15 01/15/25 15:40 4 MG Nitroglycerin 0.4 mg Q5MINP PRN SL 01/15/25 14:15 01/15/25 23:14 0.4 MG Bupropion HCl 150 mg DAILY PO 01/16/25 10:00 01/19/25 11:36 150 MG Clopidogrel Bisulfate 75 mg DAILY PO 01/16/25 10:00 01/19/25 11:54 75 MG Pantoprazole Sodium 40 mg QAM PO 01/16/25 07:00 01/19/25 05:41 40 MG Ranolazine 500 mg BID PO 01/15/25 22:00 01/19/25 11:54 500 MG Silver Sulfadiazine 1 applic DAILY TOP 01/16/25 10:00 01/19/25 10:00 1 APPLIC Atorvastatin Calcium 80 mg HS PO 01/15/25 22:00 01/18/25 22:05 80 MG Lactulose 15 ml BID PRN PO 01/15/25 15:00 Levetiracetam 750 mg BID PO 01/15/25 22:00 01/19/25 11:34 750 MG Patient Own Medication 1 patch DAILY TOP 01/16/25 10:00 Budesonide 0.5 mg BID NEB 01/15/25 22:00 01/19/25 10:03 0.5 MG Diagnostic Test (Pha) 1 strip ACHS 01/16/25 07:00 01/19/25 11:37 1 STRIP Insulin Human Regular ACHS SC 01/16/25 07:00 01/19/25 11:35 3 UNITS Dextrose 50 ml UD PRN IV 01/16/25 00:15 Methylprednisolone Sodium Succinate 40 mg BID IV 01/16/25 10:30 01/19/25 11:33 40 MG Enoxaparin Sodium 120 mg Q12HR SC 01/16/25 22:00 01/19/25 11:34 120 MG Mupirocin 1 applic BID TOP 01/16/25 22:00 01/19/25 10:00 1 APPLIC Cefepime HCl 50 ml @ 12.5 mls/hr Q12HR IV 01/17/25 10:00 01/19/25 10:00 12.5 MLS/HR Vancomycin HCl 0 ml @ 0 mls/hr PER PHARMACY IV 01/17/25 15:30 Midodrine 2.5 mg TID@0600,1200,1800 PO 01/18/25 12:00 01/19/25 11:54 2.5 MG Furosemide 40 mg BIDD IV 01/18/25 18:00 01/19/25 05:42 40 MG Ipratropium [place] 0.5 mg Q4HR NEB 01/19/25 10:00 01/19/25 10:02 0.5 MG Levalbuterol HCl 0.625 mg Q4HR NEB 01/19/25 10:00 01/19/25 10:02 0.625 MG Empaglifozin 10 mg DAILY PO 01/19/25 10:00 01/19/25 11:35 10 MG Oxycodone HCl 10 mg Q6HP PRN PO 01/19/25 07:45 01/19/25 09:57 10 MG Examination Patient lying in bed, in no acute distress General: Lucid, afebrile, mucosae are dry Cardiovascular: Normal S1 and S2. No murmurs, gallops or rubs Respiratory: Regular ventilation mechanics, tachypnea. Diffuse rhonchus in bilateral lung torres, predominantly in right base Abdomen: Soft, nontender, no organomegaly, normal bowel sounds MSK/skin: Mobilizes 4 limbs. Skin is dry and warm. Bilateral perimalleolar pitting edema Neurological: Oriented in 3 spheres. No motor no sensitive deficits. Pupils are isocoric and reactive laboratory and microbiology Laboratory Tests 01/19/25 04:52 Test 01/19/25 04:52 Range/Units Serum Glucose 144 H 74-106 mg/dL Microbiology Date/Time Source Procedure Growth Status 01/17/25 09:58 Blood Blood Culture - Preliminary NO GROWTH AFTER 48 HOURS OF INCUBATION. Resulted 01/17/25 00:13 Nose MRSA Screen - Final Methicillin Resistant S.aureus Complete Problem List/Assessment/Plan Problem List/Assessment/Plan Septic shock secondary to pneumonia Acute on chronic respiratory failure COPD exacerbation Community acquired pneumonia Gram+/Gram- Patient currently under empiric IV antibiotic (vancomycin, doxycycline and cefepime) Ordered pancultures COVID and influenza swab negative. MRSA positive in nares. Currently on oxygen therapy with nasal cannula 2 L/min (this is his home oxygen flow) Patient required IV vasopressors for 48 hours, currently off vasopressors. On midodrine per nephrology Hold antihypertensive medication Downgraded the patient to telemetry status KOLE hemodynamically mediated (VMN) Consulted Nephrology specialist: Avoid nephrotoxic medication, avoid hypotension, on p.o. midodrine. Acute on chronic diastolic congestive heart failure (HFpEF, LVEF 60%) NSTEMI likely type II due to above Ruled out acute coronary syndrome Chest pain likely pleuritic due to pneumonia CAD with history of [place] s/p PCI with 5 stents Paroxysmal atrial fibrillation (chads Vasc 7) - secondary hypercoagulability state 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 Troponin is mildly elevated 56, from recent admission has lowered (above 60). No need to repeated troponin. Patient currently on clopidogrel and enoxaparin. On discharge patient will benefit from completed oral and DOACs (last stent placed was one month ago. Completed focus at bedside which showed dilated inferior vena cava, indicated IV diuretics (40 mg daily) History of thyroid disease: Resolved Ordered TSH which was within normal limits. Per patient he had incisional hypothyroidism 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 Bed-bound Per patient he became bed-bound after exploratory laparotomy. Patient currently on enoxaparin and clopidogrel Hypertension Dyslipidemia Diabetes Morbid obesity Discontinued antihypertensive medication due to septic shock On insulin sliding scale Goals of care discussed with patient for over 18 minutes: Full code status Discussed plan with Dr. Callahan, patient and nurses: Patient currently on telemetry status. On oxygen therapy, bronchodilators and IV antibiotics. Pending culture results. Patient has poor prognosis. Critical care time spent including discussion with nursing and patient: 82 minutes Plan discussed with: Patient, Other (Nurses) My Orders My Orders Orders - LEAH DRAKE RESIDENT Procedure Category Date Status Time Respiratory Culture DAVE 01/19/25 Logged W/ Gs 07:33 Ipratropium Medneb PHA 01/19/25 In Process (Atrovent Medneb) 10:00 Levalbuterol Hcl PHA 01/19/25 In Process (Xopenex Medneb) 10:00 Transfer Orders XFER 01/19/25 Transmitted 07:41 Empagliflozin PHA 01/19/25 In Process (Jardiance) 10:00 Oxycodone Immediate PHA 01/19/25 In Process Rel Tablet 07:45 Vancomycin 1gm/250ml PHA 01/19/25 In Process Kit 16:00 Dietary Evaluation Review Comments: Request approval for Patricio to promote wound healing Physical therapy if possible Weight loss and less pressure on this buttlock Expected Outcomes/Goals: gradually healed wounds gradual wt loss Improved nutrition related lab values Date of Service: Jan 19, 2025 Billing Provider: DANIEL CALLAHAN MD Common Visit Codes: [id number] INP/OBS CARE(HIGH) LEAH DRAKE RESIDENT Jan 19, 2025 17:06
[2025-01-20] VITALS (17 sets, daily range): BP systolic 103–145; BP diastolic 58–69; PULSE 54–79; RESP 16–20; TEMP 97.3–98.2; O2SAT 90–100
[2025-01-20 07:09] LABS: Hematocrit 31.8 % (41.0-53.0); Hemoglobin 10.0 g/dL (13.5-17.5); Mean Corpuscular Hemoglobin 26.1 pg (28.0-32.0); Mean Corpuscular Volume 83.0 fL (80.0-100.0); Nucleated Red Blood Cells % 0.1 %
[2025-01-20 07:16] LABS: Potassium 4.2 mmol/L (3.5-5.1); Sodium 142 mmol/L (136-145)
[2025-01-20 07:17] LABS: Anion Gap 7 (5-15); Carbon Dioxide 27 mmol/L (20-31)
[2025-01-20 07:18] LABS: Calcium 8.8 mg/dL (8.7-10.4)
[2025-01-20 07:22] LABS: BUN/Creatinine Ratio 25.8 (10.0-20.0)
[2025-01-20 07:23] LABS: Blood Urea Nitrogen 40 mg/dL (9-23); Chloride 108 mmol/L (98-107); Glucose 161 mg/dL (74-106); Magnesium 2.2 mg/dL (1.6-2.6)
[2025-01-20] MEDS: FUROSEMIDE 40 MG/4 ML VIAL IV SCH (09:49)
[2025-01-20] MEDS: DOPamine 1600MCG/ML D5W 250 ML IV SCH (11:56)
--- NOTE | 2025-01-20 12:10 | DVHPN2 ---
Progress Note Date Seen: Jan 20, 2025 Resident Creating Document: PUJA TOLLIVER RESIDENT Medical Necessity Reason Pt with a Central, PICC or Fol: No (RN, sister) Subjective Review of Systems Patient seen and examined at the bedside. No new complaints at this time. Reported improvement in symptoms since admission. Patient reports: Feels better Other Systems: Patient seen and examined by myself today on rounds with the medicine resident, I agree with the assessment and plan Objective vital signs Vital Sign Date Time Temp Pulse Resp B/P (MAP) Pulse Ox O2 Delivery O2 Flow Rate FiO2 01/20/25 11:56 128/97 01/20/25 10:00 98 Room Air 01/20/25 10:00 0 21 01/20/25 09:14 67 16 01/20/25 09:00 97.3 97.3 Total Intake and Output 01/19/25 01/19/25 01/20/25 15:00 23:00 07:00 Intake Total 200 ml 800 ml Output Total 200 ml Balance 200 ml 600 ml medications Current Medications Medications Dose Ordered Sig/Yvette Route Start Time Stop Time Status Last Admin Dose Admin Ondansetron HCl 4 mg Q4HP PRN IV 01/15/25 14:15 01/15/25 15:40 4 MG Nitroglycerin 0.4 mg Q5MINP PRN SL 01/15/25 14:15 01/15/25 23:14 0.4 MG Bupropion HCl 150 mg DAILY PO 01/16/25 10:00 01/20/25 09:47 150 MG Clopidogrel Bisulfate 75 mg DAILY PO 01/16/25 10:00 01/20/25 09:48 75 MG Pantoprazole Sodium 40 mg QAM PO 01/16/25 07:00 01/20/25 06:32 40 MG Ranolazine 500 mg BID PO 01/15/25 22:00 01/20/25 09:47 500 MG Silver Sulfadiazine 1 applic DAILY TOP 01/16/25 10:00 01/20/25 09:49 1 APPLIC Atorvastatin Calcium 80 mg HS PO 01/15/25 22:00 01/19/25 22:45 80 MG Lactulose 15 ml BID PRN PO 01/15/25 15:00 Levetiracetam 750 mg BID PO 01/15/25 22:00 01/20/25 09:47 750 MG Patient Own Medication 1 patch DAILY TOP 01/16/25 10:00 Budesonide 0.5 mg BID NEB 01/15/25 22:00 01/20/25 06:38 0.5 MG Diagnostic Test (Pha) 1 strip ACHS 01/16/25 07:00 01/20/25 11:47 1 STRIP Insulin Human Regular ACHS SC 01/16/25 07:00 01/20/25 11:57 3 UNITS Dextrose 50 ml UD PRN IV 01/16/25 00:15 Methylprednisolone Sodium Succinate 40 mg BID IV 01/16/25 10:30 01/20/25 09:47 40 MG Mupirocin 1 applic BID TOP 01/16/25 22:00 01/20/25 09:49 1 APPLIC Cefepime HCl 50 ml @ 12.5 mls/hr Q12HR IV 01/17/25 10:00 01/20/25 09:49 12.5 MLS/HR Midodrine 2.5 mg TID@0600,1200,1800 PO 01/18/25 12:00 01/20/25 11:56 2.5 MG Ipratropium [place] 0.5 mg Q4HR NEB 01/19/25 10:00 01/20/25 09:08 0.5 MG Levalbuterol HCl 0.625 mg Q4HR NEB 01/19/25 10:00 01/20/25 09:08 0.625 MG Empaglifozin 10 mg DAILY PO 01/19/25 10:00 01/20/25 09:47 10 MG Oxycodone HCl 10 mg Q6HP PRN PO 01/19/25 07:45 01/19/25 23:10 10 MG Furosemide 40 mg DAILY IV 01/20/25 10:00 01/20/25 09:49 40 MG Dopamine HCl/ Dextrose 250 ml @ 9.165 mls/ hr Q24H IV 01/20/25 09:30 01/20/25 11:56 9.165 MLS/HR Apixaban 5 mg BID PO 01/20/25 22:00 UNV Examination General examination- alert oriented x3 HEENT- PEERLA, no acute nasal discharge Cardiovascular- S1-S2 audible, rate and rhythm regular, no murmur Respiratory- CTAB, no wheeze or rhonchi Gastrointestinal-abdomen distended, abdominal icterus, ascites present Musculoskeletal-no acute joint swelling or tenderness or redness Lower extremity- bilateral leg edema++, bruise in the bilateral upper extremity and lower extremity laboratory and microbiology Laboratory Tests 01/20/25 06:20 Test 01/20/25 06:20 Range/Units Serum Glucose 161 H 74-106 mg/dL Microbiology Date/Time Source Procedure Growth Status 01/17/25 09:58 Blood Blood Culture - Preliminary NO GROWTH AFTER 72 HOURS OF INCUBATION. Resulted 01/17/25 00:13 Nose MRSA Screen - Final Methicillin Resistant S.aureus Complete Labs and/or images reviewed: Labs reviewed by me, Image(s) reviewed by me Problem List/Assessment/Plan Problem List/Assessment/Plan Acute kidney injury hemodynamically mediated in the setting of hypotension Vancomycin nephrotoxicity Baseline renal function is normal Hypotension in the setting of opioid use and sepsis COPD exacerbation Congestive heart failure decompensated Pneumonia Sepsis Anemia Recommendations Dopamine Slightly worsened kidney function and urine output DC vancomycin Monitor lab Assess fluid status daily Blood pressure management Avoid nephrotoxic agents will follow Vazquez catheter placement and explained the importance of urinary output recording as well as diagnosis however patient refused Lasix IV push recommend daily Monitor electrolytes P.o. midodrine if patient has hypotension Rest of care as per primary medical team Case discussed with the Dr. Denny Plan discussed with: Patient, Other (rn) My Orders My Orders Orders - PUJA TOLLIVER RESIDENT Procedure Category Date Status Time Furosemide Injection PHA 01/20/25 In Process (Lasix Injection) 10:00 Dietary Evaluation Review Comments: Request approval for Patricio to promote wound healing Physical therapy if possible Weight loss and less pressure on this buttlock Expected Outcomes/Goals: gradually healed wounds gradual wt loss Improved nutrition related lab values PUJA TOLLIVER Jan 20, 2025 12:10 HOUSTON DENNY MD Jan 20, 2025 15:34
[2025-01-20] MEDS ORDERED: DOPamine 1600MCG/ML D5W 250 ML IV SCH (12:15)
[2025-01-20] MEDS ORDERED: VANCOMYCIN 1GM/250ML KIT 250 ML IV ONE (14:00)
--- NOTE | 2025-01-20 15:10 | DVHPNRES ---
Progress Note Date Seen: Jan 20, 2025 Resident Creating Document: PATIENCE BLACK RESIDENT Medical Necessity Reason Pt with a Central, PICC or Fol: Yes The following are medically ne: Central Line Subjective Review of Systems Patient is 70 years old male with past medical history of Hypertension, dyslipidemia, diabetes, CAD with history of [place] s/p PCI with 5 stents DESon DAPT, HFpEF, Paroxysmal atrial fibrillation (CV-7), tachy-leandro syndrome s/p leadless pacemaker placement, COPD on home oxygen (2L/min), CVA with residual right weakness, bed bound after exploratory surgery for kidney disease per patient,, urinary incontinence came with a complaint of worsening shortness of breaths. As per patient he has been having worsening shortness of breaths since yesterday. Shortness of breath associated with cough with a yellowish sputum production. Patient also endorsed chest pain on the left side, started when he was on bed, gradual, 8/10, pressure-like, radiating to the left arm, no aggravating or relieving factor. On further inquiry patient reported he has bilateral leg swelling but does not know how long it has been going on. Patient also endorsed nausea but no vomiting. Patient denied fever, palpitation, acute joint rash, acute dysarthria or change in vision. Initial lab workup revealed hemoglobin 10.7, RDW 18.5, potassium 3.9, serum creatinine 1. 0 1, GFR 80, troponin> I 56> 75> 74> 74. UA negative, UDS negative. Chest [id number] pulmonary edema. trace bibasilar effusion. 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 Surgical history: PCI, leadless pacemaker placement, 2023 ex-lap Family history: Non contributory Social history: Lives in [place] with family (NOK sister). Ex-tobacco abuse (3 pack year history) quit 50 years ago. Denies current tobacco, alcohol and other drug abuse. Allergy: Denies Home medication: Aspirin, Clopidogrel, Atorvastatin, Bupropion, Oxybutynin, Dapaglifliozin, Furosemide, inhaler ROS Cardiovascular- chest pain, cough, leg swelling Respiratory den shortness of breath, cough with the yellow Gastrointestinal- denies any rectal bleeding, nausea or vomiting Musculoskeletal-denies acute joint swelling or tenderness or redness Neurological- denies acute dysarthria, dysphagia, change in vision Psychiatry- denies depression or SI or HI Skin- denies acute rash or purpura Patient is seen today at bedside. Labs and chart reviewed. As per nursing documentation patient is noncompliant with the treatment and care, patient was counseled about the importance of med compliance and treatment advance, ordered for urine sodium, urine creatinine, urine protein creatinine ratio Patient NC O2 2 L/min Patient was seen by Nephrology Nephrology started patient on dopamine drip, discontinued vancomycin, Change Lasix to 40 mg IV daily Discontinue Lovenox, patient was put on Eliquis Provider spoke to patient's sister Maribel, [phone], discussed patient's current medical condition plan of care and answered her questions. Objective vital signs Vital Sign Date Time Temp Pulse Resp B/P (MAP) Pulse Ox O2 Delivery O2 Flow Rate FiO2 01/20/25 13:45 68 16 100 01/20/25 13:39 Nasal Cannula 2.0 01/20/25 13:39 28 01/20/25 13:07 97.7 145/66 (92) 97.7 Total Intake and Output 01/19/25 01/19/25 01/20/25 15:00 23:00 07:00 Intake Total 200 ml 800 ml Output Total 200 ml Balance 200 ml 600 ml medications Current Medications Medications Dose Ordered Sig/Yvette Route Start Time Stop Time Status Last Admin Dose Admin Ondansetron HCl 4 mg Q4HP PRN IV 01/15/25 14:15 01/15/25 15:40 4 MG Nitroglycerin 0.4 mg Q5MINP PRN SL 01/15/25 14:15 01/15/25 23:14 0.4 MG Bupropion HCl 150 mg DAILY PO 01/16/25 10:00 01/20/25 09:47 150 MG Clopidogrel Bisulfate 75 mg DAILY PO 01/16/25 10:00 01/20/25 09:48 75 MG Pantoprazole Sodium 40 mg QAM PO 01/16/25 07:00 01/20/25 06:32 40 MG Ranolazine 500 mg BID PO 01/15/25 22:00 01/20/25 09:47 500 MG Silver Sulfadiazine 1 applic DAILY TOP 01/16/25 10:00 01/20/25 09:49 1 APPLIC Atorvastatin Calcium 80 mg HS PO 01/15/25 22:00 01/19/25 22:45 80 MG Lactulose 15 ml BID PRN PO 01/15/25 15:00 Levetiracetam 750 mg BID PO 01/15/25 22:00 01/20/25 09:47 750 MG Patient Own Medication 1 patch DAILY TOP 01/16/25 10:00 Budesonide 0.5 mg BID NEB 01/15/25 22:00 01/20/25 06:38 0.5 MG Diagnostic Test (Pha) 1 strip ACHS 01/16/25 07:00 01/20/25 11:47 1 STRIP Insulin Human Regular ACHS SC 01/16/25 07:00 01/20/25 11:57 3 UNITS Dextrose 50 ml UD PRN IV 01/16/25 00:15 Methylprednisolone Sodium Succinate 40 mg BID IV 01/16/25 10:30 01/20/25 09:47 40 MG Mupirocin 1 applic BID TOP 01/16/25 22:00 01/20/25 09:49 1 APPLIC Cefepime HCl 50 ml @ 12.5 mls/hr Q12HR IV 01/17/25 10:00 01/20/25 09:49 12.5 MLS/HR Midodrine 2.5 mg TID@0600,1200,1800 PO 01/18/25 12:00 01/20/25 11:56 2.5 MG Ipratropium [place] 0.5 mg Q4HR NEB 01/19/25 10:00 01/20/25 13:39 0.5 MG Levalbuterol HCl 0.625 mg Q4HR NEB 01/19/25 10:00 01/20/25 13:39 0.625 MG Empaglifozin 10 mg DAILY PO 01/19/25 10:00 01/20/25 09:47 10 MG Oxycodone HCl 10 mg Q6HP PRN PO 01/19/25 07:45 01/19/25 23:10 10 MG Furosemide 40 mg DAILY IV 01/20/25 10:00 01/20/25 09:49 40 MG Dopamine HCl/ Dextrose 250 ml @ 9.165 mls/ hr Q24H IV 01/20/25 09:30 01/20/25 11:56 9.165 MLS/HR Apixaban 5 mg BID PO 01/20/25 22:00 Dopamine HCl/ Dextrose 250 ml @ 9.165 mls/ hr Q24H IV 01/20/25 12:15 UNV Examination General examination- patient awake, alert, oriented HEENT- PEERLA, no acute nasal discharge Cardiovascular- S1-S2 audible, rate and rhythm regular, no murmur Respiratory- bilateral lung crackles, wheezing++ Gastrointestinal-nontender, bowel sound+. Nondistended Musculoskeletal-no acute joint swelling or tenderness or redness Lower extremity- leg edema++ Neurological- right-sided weakness on upper and lower extremity Psychiatry- denies depression or SI or HI Skin- no acute rash or purpura laboratory and microbiology Laboratory Tests 01/20/25 06:20 Test 01/20/25 06:20 Range/Units Serum Glucose 161 H 74-106 mg/dL Microbiology Date/Time Source Procedure Growth Status 01/17/25 09:58 Blood Blood Culture - Preliminary NO GROWTH AFTER 72 HOURS OF INCUBATION. Resulted 01/17/25 00:13 Nose MRSA Screen - Final Methicillin Resistant S.aureus Complete Problem List/Assessment/Plan Problem List/Assessment/Plan Problem List/Assessment/Plan Septic shock secondary to pneumonia Acute on chronic respiratory failure COPD exacerbation Community acquired pneumonia Gram+/Gram- Patient currently under empiric IV antibiotic (vancomycin, doxycycline and cefepime) Ordered pancultures COVID and influenza swab negative. MRSA positive in nares. Currently on oxygen therapy with nasal cannula 2 L/min (this is his home oxygen flow) Patient required IV vasopressors for 48 hours, currently off vasopressors. On midodrine per nephrology Hold antihypertensive medication Patient was started on dopamine drip by Nephrology Patient on telemetry status -continue Lasix 40 mg IV daily as prescribed -repeat blood culture report on 01/17/2025 no growth Nephrology discontinued vancomycin KOLE hemodynamically mediated (VMN) Consulted Nephrology specialist: Avoid nephrotoxic medication, avoid hypotension, on p.o. midodrine. -Patient was started on dopamine drip by Nephrology -nephrology ordered urine sodium, urine creatinine, urine albumin protein Acute on chronic diastolic congestive heart failure (HFpEF, LVEF 60%) NSTEMI likely type II due to above Ruled out acute coronary syndrome Chest pain likely pleuritic due to pneumonia CAD with history of [place] s/p PCI with 5 stents Paroxysmal atrial fibrillation (chads Vasc 7) - secondary hypercoagulability state 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 Troponin is mildly elevated 56, from recent admission has lowered (above 60). No need to repeated troponin. Patient currently on clopidogrel and enoxaparin. On discharge patient will benefit from completed oral and DOACs (last stent placed was one month ago. Completed focus at bedside which showed dilated inferior vena cava, indicated IV diuretics (40 mg daily) History of thyroid disease: Resolved Ordered TSH which was within normal limits. Per patient he had incisional hypothyroidism 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 Bed-bound Per patient he became bed-bound after exploratory laparotomy. Patient currently on enoxaparin and clopidogrel Hypertension Dyslipidemia Diabetes Morbid obesity Discontinued antihypertensive medication due to septic shock On insulin sliding scale Goals of care discussed with patient for over 18 minutes: Full code status Discussed plan with Dr. Callahan, patient and nurses: Patient currently on telemetry status. On oxygen therapy, bronchodilators and IV antibiotics. Pending culture results. Patient has poor prognosis. Plan discussed with: Patient, Other (RN,Sister) Dietary Evaluation Review Comments: Request approval for Patricio to promote wound healing Physical therapy if possible Weight loss and less pressure on this buttlock Expected Outcomes/Goals: gradually healed wounds gradual wt loss Improved nutrition related lab values Visit Coding STANDARD RES Billing Provider: DANIEL CALLAHAN MD Date of Service if different f: Jan 20, 2025 Common Visit Codes: [id number] INP/OBS CARE(HIGH) PATIENCE BLACK RESIDENT Jan 20, 2025 15:10
[2025-01-20] MEDS: APIXABAN 5 MG TAB PO SCH (22:00)
[2025-01-21] VITALS (21 sets, daily range): BP systolic 2–139; BP diastolic 58–84; PULSE 52–73; RESP 16–21; TEMP 97.5–98.9; O2SAT 92–100
[2025-01-21 02:25] LABS: Urine Protein, UAD Negative (Negative)
[2025-01-21 02:27] LABS: Protein, Urine 31.8 mg/dL (1-14)
[2025-01-21 05:09] LABS: Hematocrit 32.9 % (41.0-53.0); Hemoglobin 10.5 g/dL (13.5-17.5); Mean Corpuscular Hemoglobin 26.2 pg (28.0-32.0); Mean Corpuscular Volume 81.7 fL (80.0-100.0); Nucleated Red Blood Cells % 0.0 %
[2025-01-21 05:29] LABS: Alanine Aminotransferase 11 U/L (7-40); Alkaline Phosphatase 48 U/L (46-116); Anion Gap 7 (5-15); BUN/Creatinine Ratio 29.5 (10.0-20.0); Calcium 9.0 mg/dL (8.7-10.4); Carbon Dioxide 27 mmol/L (20-31); Magnesium 2.3 mg/dL (1.6-2.6); Potassium 4.1 mmol/L (3.5-5.1); Sodium 142 mmol/L (136-145); Total Protein 6.6 g/dL (5.7-8.2)
[2025-01-21 05:31] LABS: Albumin 2.9 g/dL (3.2-4.8); Bilirubin, Total 0.2 mg/dL (0.2-1.0); Blood Urea Nitrogen 44 mg/dL (9-23); Chloride 108 mmol/L (98-107); Glucose 166 mg/dL (74-106)
--- NOTE | 2025-01-21 14:08 | DVHPN2 ---
Progress Note Date Seen: Jan 21, 2025 Resident Creating Document: PUJA TOLLIVER RESIDENT Medical Necessity Reason Pt with a Central, PICC or Fol: Yes The following are medically ne: Central Line Subjective Patient reports: No new complaints, Feels better Other Systems: Patient seen and examined by myself today in round with the medicien resident, I agree with his assessment and plan Objective vital signs Vital Sign Date Time Temp Pulse Resp B/P (MAP) Pulse Ox O2 Delivery O2 Flow Rate FiO2 01/21/25 14:03 56 16 100 01/21/25 13:57 Nasal Cannula 2.0 01/21/25 13:57 28 01/21/25 12:30 98.8 131/79 (96) 98.8 Total Intake and Output 01/20/25 01/20/25 01/21/25 15:00 23:00 07:00 Intake Total 920 ml 50 ml Output Total 1400 ml 700 ml Balance -480 ml -650 ml medications Current Medications Medications Dose Ordered Sig/Yvette Route Start Time Stop Time Status Last Admin Dose Admin Ondansetron HCl 4 mg Q4HP PRN IV 01/15/25 14:15 01/15/25 15:40 4 MG Nitroglycerin 0.4 mg Q5MINP PRN SL 01/15/25 14:15 01/15/25 23:14 0.4 MG Bupropion HCl 150 mg DAILY PO 01/16/25 10:00 01/21/25 10:05 150 MG Clopidogrel Bisulfate 75 mg DAILY PO 01/16/25 10:00 01/21/25 11:18 75 MG Pantoprazole Sodium 40 mg QAM PO 01/16/25 07:00 01/21/25 06:09 40 MG Ranolazine 500 mg BID PO 01/15/25 22:00 01/21/25 10:05 500 MG Silver Sulfadiazine 1 applic DAILY TOP 01/16/25 10:00 01/21/25 10:02 1 APPLIC Atorvastatin Calcium 80 mg HS PO 01/15/25 22:00 01/20/25 21:59 80 MG Lactulose 15 ml BID PRN PO 01/15/25 15:00 Levetiracetam 750 mg BID PO 01/15/25 22:00 01/21/25 10:21 750 MG Patient Own Medication 1 patch DAILY TOP 01/16/25 10:00 Budesonide 0.5 mg BID NEB 01/15/25 22:00 01/21/25 07:07 0.5 MG Diagnostic Test (Pha) 1 strip ACHS 01/16/25 07:00 01/21/25 11:39 1 STRIP Insulin Human Regular ACHS SC 01/16/25 07:00 01/21/25 11:38 3 UNITS Dextrose 50 ml UD PRN IV 01/16/25 00:15 Methylprednisolone Sodium Succinate 40 mg BID IV 01/16/25 10:30 01/21/25 10:05 40 MG Mupirocin 1 applic BID TOP 01/16/25 22:00 01/21/25 10:02 1 APPLIC Cefepime HCl 50 ml @ 12.5 mls/hr Q12HR IV 01/17/25 10:00 01/21/25 10:02 12.5 MLS/HR Midodrine 2.5 mg TID@0600,1200,1800 PO 01/18/25 12:00 01/21/25 11:36 2.5 MG Ipratropium [place] 0.5 mg Q4HR NEB 01/19/25 10:00 01/21/25 13:57 0.5 MG Levalbuterol HCl 0.625 mg Q4HR NEB 01/19/25 10:00 01/21/25 13:57 0.625 MG Empaglifozin 10 mg DAILY PO 01/19/25 10:00 01/21/25 10:05 10 MG Oxycodone HCl 10 mg Q6HP PRN PO 01/19/25 07:45 01/21/25 04:49 10 MG Furosemide 40 mg DAILY IV 01/20/25 10:00 01/21/25 10:05 40 MG Dopamine HCl/ Dextrose 250 ml @ 9.165 mls/ hr Q24H IV 01/20/25 09:30 01/21/25 10:00 9.165 MLS/HR Apixaban 5 mg BID PO 01/20/25 22:00 01/21/25 11:18 5 MG Dopamine HCl/ Dextrose 250 ml @ 9.165 mls/ hr Q24H IV 01/20/25 12:15 UNV Examination General examination- alert oriented x3 HEENT- PEERLA, no acute nasal discharge Cardiovascular- S1-S2 audible, rate and rhythm regular, no murmur Respiratory- CTAB, no wheeze or rhonchi Gastrointestinal-abdomen distended, abdominal icterus, ascites present Musculoskeletal-no acute joint swelling or tenderness or redness Lower extremity- bilateral leg edema++, bruise in the bilateral upper extremity and lower extremity laboratory and microbiology Laboratory Tests 01/21/25 04:47 Test 01/21/25 04:47 Range/Units Serum Glucose 166 H 74-106 mg/dL Microbiology Date/Time Source Procedure Growth Status 01/17/25 09:58 Blood Blood Culture - Preliminary NO GROWTH AFTER 72 HOURS OF INCUBATION. Resulted 01/17/25 00:13 Nose MRSA Screen - Final Methicillin Resistant S.aureus Complete Labs and/or images reviewed: Labs reviewed by me, Image(s) reviewed by me Problem List/Assessment/Plan Problem List/Assessment/Plan Acute kidney injury hemodynamically mediated in the setting of hypotension - improved Baseline renal function is normal Hypotension in the setting of opioid use and sepsis COPD exacerbation Congestive heart failure decompensated Pneumonia Sepsis Anemia Recommendations Significant improvement urine output Dopamine Improved kidney function and urine output DC vancomycin Monitor lab Assess fluid status daily Blood pressure management Avoid nephrotoxic agents will follow Vazquez catheter placement and explained the importance of urinary output recording as well as diagnosis however patient refused Lasix IV push recommend daily Monitor electrolytes P.o. midodrine if patient has hypotension Rest of care as per primary medical team Case discussed with the Dr. Denny Plan discussed with: Patient Dietary Evaluation Review Comments: Request approval for Patricio to promote wound healing Physical therapy if possible Weight loss and less pressure on this buttlock Expected Outcomes/Goals: gradually healed wounds gradual wt loss Improved nutrition related lab values PUJA TOLLIVER RESIDENT Jan 21, 2025 14:08 HOUSTON DENNY MD Jan 21, 2025 16:26
--- NOTE | 2025-01-21 16:28 | DVHPNRES ---
Progress Note Date Seen: Jan 21, 2025 Resident Creating Document: PATIENCE BLACK RESIDENT Medical Necessity Reason Pt with a Central, PICC or Fol: Yes The following are medically ne: Central Line Subjective Review of Systems Patient is 70 years old male with past medical history of Hypertension, dyslipidemia, diabetes, CAD with history of ID s/p PCI with 5 stents DESon DAPT, HFpEF, Paroxysmal atrial fibrillation (CV-7), tachy-leandro syndrome s/p leadless pacemaker placement, COPD on home oxygen (2L/min), CVA with residual right weakness, bed bound after exploratory surgery for kidney disease per patient,, urinary incontinence came with a complaint of worsening shortness of breaths. As per patient he has been having worsening shortness of breaths since yesterday. Shortness of breath associated with cough with a yellowish sputum production. Patient also endorsed chest pain on the left side, started when he was on bed, gradual, 8/10, pressure-like, radiating to the left arm, no aggravating or relieving factor. On further inquiry patient reported he has bilateral leg swelling but does not know how long it has been going on. Patient also endorsed nausea but no vomiting. Patient denied fever, palpitation, acute joint rash, acute dysarthria or change in vision. Initial lab workup revealed hemoglobin 10.7, RDW 18.5, potassium 3.9, serum creatinine 1. 0 1, GFR 80, troponin> I 56> 75> 74> 74. UA negative, UDS negative. Chest [id number] pulmonary edema. trace bibasilar effusion. 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 Surgical history: PCI, leadless pacemaker placement, 2023 ex-lap Family history: Non contributory Social history: Lives in [place] with family (NOK sister). Ex-tobacco abuse (3 pack year history) quit 50 years ago. Denies current tobacco, alcohol and other drug abuse. Allergy: Denies Home medication: Aspirin, Clopidogrel, Atorvastatin, Bupropion, Oxybutynin, Dapaglifliozin, Furosemide, inhaler ROS Cardiovascular- chest pain, cough, leg swelling Respiratory den shortness of breath, cough with the yellow Gastrointestinal- denies any rectal bleeding, nausea or vomiting Musculoskeletal-denies acute joint swelling or tenderness or redness Neurological- denies acute dysarthria, dysphagia, change in vision Psychiatry- denies depression or SI or HI Skin- denies acute rash or purpura Patient is seen today at bedside. Labs and chart reviewed. Patient had negative balance of 1100 On dopamine On Lasix Nephrology recommendations reviewed and appreciated Vazquez catheter placement and explained the importance of urinary output recording as well as diagnosis however patient refused Plan is to continue current management Provider spoke to patient's sister Maribel, [phone], discussed patient's current medical condition plan of care and answered her questions. Objective vital signs Vital Sign Date Time Temp Pulse Resp B/P (MAP) Pulse Ox O2 Delivery O2 Flow Rate FiO2 01/21/25 14:03 56 16 100 01/21/25 13:57 Nasal Cannula 2.0 01/21/25 13:57 28 01/21/25 12:30 98.8 131/79 (96) 98.8 Total Intake and Output 01/20/25 01/20/25 01/21/25 15:00 23:00 07:00 Intake Total 920 ml 50 ml Output Total 1400 ml 700 ml Balance -480 ml -650 ml medications Current Medications Medications Dose Ordered Sig/Yvette Route Start Time Stop Time Status Last Admin Dose Admin Ondansetron HCl 4 mg Q4HP PRN IV 01/15/25 14:15 01/15/25 15:40 4 MG Nitroglycerin 0.4 mg Q5MINP PRN SL 01/15/25 14:15 01/15/25 23:14 0.4 MG Bupropion HCl 150 mg DAILY PO 01/16/25 10:00 01/21/25 10:05 150 MG Clopidogrel Bisulfate 75 mg DAILY PO 01/16/25 10:00 01/21/25 11:18 75 MG Pantoprazole Sodium 40 mg QAM PO 01/16/25 07:00 01/21/25 06:09 40 MG Ranolazine 500 mg BID PO 01/15/25 22:00 01/21/25 10:05 500 MG Silver Sulfadiazine 1 applic DAILY TOP 01/16/25 10:00 01/21/25 10:02 1 APPLIC Atorvastatin Calcium 80 mg HS PO 01/15/25 22:00 01/20/25 21:59 80 MG Lactulose 15 ml BID PRN PO 01/15/25 15:00 Levetiracetam 750 mg BID PO 01/15/25 22:00 01/21/25 10:21 750 MG Patient Own Medication 1 patch DAILY TOP 01/16/25 10:00 Budesonide 0.5 mg BID NEB 01/15/25 22:00 01/21/25 07:07 0.5 MG Diagnostic Test (Pha) 1 strip ACHS 01/16/25 07:00 01/21/25 11:39 1 STRIP Insulin Human Regular ACHS SC 01/16/25 07:00 01/21/25 11:38 3 UNITS Dextrose 50 ml UD PRN IV 01/16/25 00:15 Methylprednisolone Sodium Succinate 40 mg BID IV 01/16/25 10:30 01/21/25 10:05 40 MG Mupirocin 1 applic BID TOP 01/16/25 22:00 01/21/25 10:02 1 APPLIC Cefepime HCl 50 ml @ 12.5 mls/hr Q12HR IV 01/17/25 10:00 01/21/25 10:02 12.5 MLS/HR Midodrine 2.5 mg TID@0600,1200,1800 PO 01/18/25 12:00 01/21/25 11:36 2.5 MG Ipratropium [place] 0.5 mg Q4HR NEB 01/19/25 10:00 01/21/25 13:57 0.5 MG Levalbuterol HCl 0.625 mg Q4HR NEB 01/19/25 10:00 01/21/25 13:57 0.625 MG Empaglifozin 10 mg DAILY PO 01/19/25 10:00 01/21/25 10:05 10 MG Oxycodone HCl 10 mg Q6HP PRN PO 01/19/25 07:45 01/21/25 04:49 10 MG Furosemide 40 mg DAILY IV 01/20/25 10:00 01/21/25 10:05 40 MG Dopamine HCl/ Dextrose 250 ml @ 9.165 mls/ hr Q24H IV 01/20/25 09:30 01/21/25 10:00 9.165 MLS/HR Apixaban 5 mg BID PO 01/20/25 22:00 01/21/25 11:18 5 MG Dopamine HCl/ Dextrose 250 ml @ 9.165 mls/ hr Q24H IV 01/20/25 12:15 UNV Examination General examination- patient awake, alert, oriented HEENT- PEERLA, no acute nasal discharge Cardiovascular- S1-S2 audible, rate and rhythm regular, no murmur Respiratory- bilateral lung crackles, wheezing++ Gastrointestinal-nontender, bowel sound+. Nondistended Musculoskeletal-no acute joint swelling or tenderness or redness Lower extremity- leg edema++ Neurological- right-sided weakness on upper and lower extremity Psychiatry- denies depression or SI or HI Skin- no acute rash or purpura laboratory and microbiology Laboratory Tests 01/21/25 04:47 Test 01/21/25 04:47 Range/Units Serum Glucose 166 H 74-106 mg/dL Microbiology Date/Time Source Procedure Growth Status 01/17/25 09:58 Blood Blood Culture - Preliminary NO GROWTH AFTER 72 HOURS OF INCUBATION. Resulted 01/17/25 00:13 Nose MRSA Screen - Final Methicillin Resistant S.aureus Complete Problem List/Assessment/Plan Problem List/Assessment/Plan Problem List/Assessment/Plan Septic shock secondary to pneumonia Acute on chronic respiratory failure COPD exacerbation Community acquired pneumonia Gram+/Gram- Patient currently under empiric IV antibiotic (vancomycin, doxycycline and cefepime) Ordered pancultures COVID and influenza swab negative. MRSA positive in nares. Currently on oxygen therapy with nasal cannula 2 L/min (this is his home oxygen flow) Patient required IV vasopressors for 48 hours, currently off vasopressors. On midodrine per nephrology Hold antihypertensive medication -continue Lasix 40 mg IV daily as prescribed -repeat blood culture report on 01/17/2025 no growth Nephrology discontinued vancomycin -prompts to continue current conservative management KOLE hemodynamically mediated (VMN) Consulted Nephrology specialist: Avoid nephrotoxic medication, avoid hypotension, on p.o. midodrine. -Patient was started on dopamine drip by Nephrology Patient had increased urine output and negative balance of 1100 Acute on chronic diastolic congestive heart failure (HFpEF, LVEF 60%) NSTEMI likely type II due to above Ruled out acute coronary syndrome Chest pain likely pleuritic due to pneumonia CAD with history of ID s/p PCI with 5 stents Paroxysmal atrial fibrillation (chads Vasc 7) - secondary hypercoagulability state 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 Troponin is mildly elevated 56, from recent admission has lowered (above 60). No need to repeated troponin. Patient currently on clopidogrel and enoxaparin. On discharge patient will benefit from completed oral and DOACs (last stent placed was one month ago. Completed focus at bedside which showed dilated inferior vena cava, indicated IV diuretics (40 mg daily) History of thyroid disease: Resolved Ordered TSH which was within normal limits. Per patient he had incisional hypothyroidism 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 Bed-bound Per patient he became bed-bound after exploratory laparotomy. Patient currently on enoxaparin and clopidogrel Hypertension Dyslipidemia Diabetes Morbid obesity Discontinued antihypertensive medication due to septic shock On insulin sliding scale Goals of care discussed with patient for over 18 minutes: Full code status Discussed plan with Dr. Callahan, patient and nurses: Patient currently on telemetry status. On oxygen therapy, bronchodilators and IV antibiotics. Pending culture results. Patient has poor prognosis. Plan discussed with: Patient, Other (RN) Dietary Evaluation Review Comments: Request approval for Patricio to promote wound healing Physical therapy if possible Weight loss and less pressure on this buttlock Expected Outcomes/Goals: gradually healed wounds gradual wt loss Improved nutrition related lab values Visit Coding STANDARD RES Billing Provider: DANIEL CALLAHAN MD Date of Service if different f: Jan 21, 2025 Common Visit Codes: [id number] INP/OBS CARE(HIGH) PATIENCE BLACK RESIDENT Jan 21, 2025 16:28
[2025-01-22] VITALS (14 sets, daily range): BP systolic 95–127; BP diastolic 56–68; PULSE 48–77; RESP 16–18; TEMP 97–98; O2SAT 91–99
[2025-01-22 05:20] LABS: Hematocrit 33.6 % (41.0-53.0); Hemoglobin 10.6 g/dL (13.5-17.5); Mean Corpuscular Hemoglobin 25.7 pg (28.0-32.0); Mean Corpuscular Volume 81.6 fL (80.0-100.0); Nucleated Red Blood Cells % 0.0 %
[2025-01-22 05:40] LABS: Alanine Aminotransferase 13 U/L (7-40); Alkaline Phosphatase 55 U/L (46-116); Anion Gap 8 (5-15); BUN/Creatinine Ratio 31.9 (10.0-20.0); Calcium 9.2 mg/dL (8.7-10.4); Carbon Dioxide 28 mmol/L (20-31); Chloride 107 mmol/L (98-107); Magnesium 2.4 mg/dL (1.6-2.6); Potassium 4.1 mmol/L (3.5-5.1); Sodium 143 mmol/L (136-145); Total Protein 6.6 g/dL (5.7-8.2)
[2025-01-22 05:44] LABS: Albumin 2.9 g/dL (3.2-4.8); Bilirubin, Total 0.2 mg/dL (0.2-1.0); Blood Urea Nitrogen 46 mg/dL (9-23); Glucose 160 mg/dL (74-106)
[2025-01-22] MEDS: ACETYLCYSTEINE 10 %(100MG/ML) SOL 4ML NEB SCH (09:00)
--- NOTE | 2025-01-22 11:40 | DVH ---
Procedure: CT CHEST WITHOUT CONTRAST Reason for study/Clinical History: Pneumonia/consolidation/effusion/collapse lung Comparison Study: XY CHEST XRAY 1 VIEW on DOS: 01/18/25, XY CHEST PORTABLE on DOS: 01/17/25, XY CHEST XRAY 1 VIEW on DOS: 01/17/25, XY CHEST PORTABLE on DOS: 01/15/25, XY CHEST PORTABLE on DOS: 01/10/25 TECHNIQUE: Multidetector CT of the chest was performed from the lung apices to the upper abdomen without the use of intravenous contract. Axial, coronal and sagittal multiplanar reformats were performed. Radiation Dose Information: CT Dose: CTDI volume is 29.33 mGy. Dose-length product is 2.54 mGy*cm The dose indicators for CT are the volume Computed Tomography (CT) Dose Index (CTDIvol) and the Dose Length Product (DLP), and are measured in units of mGy and mGy-cm, respectively. These indicators are not patient dose, but values generated from the CT scanner acquisition factors. The report includes radiation exposure data for exposures received during this examination. FINDINGS: Lower neck: Right central venous catheter in satisfactory position. Lungs: Bilateral lower lobe compressive atelectasis. Heart/Vascular Structures: Cardiomegaly. Coronary artery calcifications. Vascular calcifications of the aorta. Lymph Nodes: No adenopathy Pleura: Moderate bilateral pleural effusions. Musculoskeletal: No acute osseous abnormality. Multilevel degenerative changes of the spine Soft tissues: Normal. Upper abdomen: Limited portions of the upper abdomen are unremarkable. IMPRESSION: 1. Moderate bilateral pleural effusions with compressive atelectasis. 2. Cardiomegaly. Radiation optimization: All CT scans at this facility use at least one of these dose optimization techniques: automated exposure control mA and/or kV adjustment per patient size (includes targeted exams where dose is matched to clinical indication) or iterative reconstruction.
--- NOTE | 2025-01-22 12:32 | DVH ---
US CHEST ULTRASOUND, HISTORY: B/L PLEURAL EFFUSION COMPARISON(S): CT CHEST WITHOUT CONTRAST on DOS: 01/22/25, XY CHEST XRAY 1 VIEW on DOS: 01/18/25, XY CHEST PORTABLE on DOS: 01/17/25 TECHNICAL DATA: Transverse and longitudinal images are obtained of the chest. FINDING: IMPRESSION(S): There is trace bilateral pleural effusion.
--- NOTE | 2025-01-22 17:41 | DVHPNRES ---
Progress Note Date Seen: Jan 22, 2025 Resident Creating Document: PATIENCE BLACK RESIDENT Medical Necessity Reason Pt with a Central, PICC or Fol: Yes The following are medically ne: Central Line Subjective Review of Systems Patient is 70 years old male with past medical history of Hypertension, dyslipidemia, diabetes, CAD with history of SD s/p PCI with 5 stents DESon DAPT, HFpEF, Paroxysmal atrial fibrillation (CV-7), tachy-leandro syndrome s/p leadless pacemaker placement, COPD on home oxygen (2L/min), CVA with residual right weakness, bed bound after exploratory surgery for kidney disease per patient,, urinary incontinence came with a complaint of worsening shortness of breaths. As per patient he has been having worsening shortness of breaths since yesterday. Shortness of breath associated with cough with a yellowish sputum production. Patient also endorsed chest pain on the left side, started when he was on bed, gradual, 8/10, pressure-like, radiating to the left arm, no aggravating or relieving factor. On further inquiry patient reported he has bilateral leg swelling but does not know how long it has been going on. Patient also endorsed nausea but no vomiting. Patient denied fever, palpitation, acute joint rash, acute dysarthria or change in vision. Initial lab workup revealed hemoglobin 10.7, RDW 18.5, potassium 3.9, serum creatinine 1. 0 1, GFR 80, troponin> I 56> 75> 74> 74. UA negative, UDS negative. Chest [id number] pulmonary edema. trace bibasilar effusion. 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 Surgical history: PCI, leadless pacemaker placement, 2023 ex-lap Family history: Non contributory Social history: Lives in [place] with family (NO[place] sister). Ex-tobacco abuse (3 pack year history) quit 50 years ago. Denies current tobacco, alcohol and other drug abuse. Allergy: Denies Home medication: Aspirin, Clopidogrel, Atorvastatin, Bupropion, Oxybutynin, Dapaglifliozin, Furosemide, inhaler ROS Cardiovascular- chest pain, cough, leg swelling Respiratory den shortness of breath, cough with the yellow Gastrointestinal- denies any rectal bleeding, nausea or vomiting Musculoskeletal-denies acute joint swelling or tenderness or redness Neurological- denies acute dysarthria, dysphagia, change in vision Psychiatry- denies depression or SI or HI Skin- denies acute rash or purpura Patient is seen today at bedside. Ordered CT chest- Moderate bilateral pleural effusions with compressive atelectasis. Cardiomegaly. Ultrasound of the chest revealed-There is trace bilateral pleural effusion. Patient on dopamine drip, on midodrine Objective vital signs Vital Sign Date Time Temp Pulse Resp B/P (MAP) Pulse Ox O2 Delivery O2 Flow Rate FiO2 01/22/25 17:00 98.0 69 16 127/67 (87) 92 98.0 01/22/25 13:43 Nasal Cannula* 2 28 Total Intake and Output 01/21/25 01/21/25 01/22/25 15:00 23:00 07:00 Intake Total 200 ml 550 ml Output Total 600 ml 200 ml Balance -400 ml 350 ml medications Current Medications Medications Dose Ordered Sig/Yvette Route Start Time Stop Time Status Last Admin Dose Admin Ondansetron HCl 4 mg Q4HP PRN IV 01/15/25 14:15 01/15/25 15:40 4 MG Nitroglycerin 0.4 mg Q5MINP PRN SL 01/15/25 14:15 01/15/25 23:14 0.4 MG Bupropion HCl 150 mg DAILY PO 01/16/25 10:00 01/22/25 09:10 150 MG Clopidogrel Bisulfate 75 mg DAILY PO 01/16/25 10:00 01/22/25 09:09 75 MG Pantoprazole Sodium 40 mg QAM PO 01/16/25 07:00 01/22/25 06:32 40 MG Ranolazine 500 mg BID PO 01/15/25 22:00 01/22/25 09:09 500 MG Silver Sulfadiazine 1 applic DAILY TOP 01/16/25 10:00 01/22/25 10:00 1 APPLIC Atorvastatin Calcium 80 mg HS PO 01/15/25 22:00 01/21/25 22:34 80 MG Lactulose 15 ml BID PRN PO 01/15/25 15:00 Levetiracetam 750 mg BID PO 01/15/25 22:00 01/22/25 09:18 750 MG Patient Own Medication 1 patch DAILY TOP 01/16/25 10:00 Budesonide 0.5 mg BID NEB 01/15/25 22:00 01/21/25 23:21 0.5 MG Diagnostic Test (Pha) 1 strip ACHS 01/16/25 07:00 01/22/25 17:00 1 STRIP Insulin Human Regular ACHS SC 01/16/25 07:00 01/22/25 17:04 2 UNITS Dextrose 50 ml UD PRN IV 01/16/25 00:15 Mupirocin 1 applic BID TOP 01/16/25 22:00 01/22/25 12:17 1 APPLIC Cefepime HCl 50 ml @ 12.5 mls/hr Q12HR IV 01/17/25 10:00 01/22/25 10:42 12.5 MLS/HR Midodrine 2.5 mg TID@0600,1200,1800 PO 01/18/25 12:00 01/21/25 17:51 2.5 MG Ipratropium [place] 0.5 mg Q4HR NEB 01/19/25 10:00 01/22/25 13:42 0.5 MG Levalbuterol HCl 0.625 mg Q4HR NEB 01/19/25 10:00 01/22/25 13:42 0.625 MG Empaglifozin 10 mg DAILY PO 01/19/25 10:00 01/22/25 09:09 10 MG Furosemide 40 mg DAILY IV 01/20/25 10:00 01/22/25 09:09 40 MG Dopamine HCl/ Dextrose 250 ml @ 9.165 mls/ hr Q24H IV 01/20/25 09:30 01/22/25 10:56 9.165 MLS/HR Apixaban 5 mg BID PO 01/20/25 22:00 01/22/25 09:09 5 MG Dopamine HCl/ Dextrose 250 ml @ 9.165 mls/ hr Q24H IV 01/20/25 12:15 UNV Acetylcysteine 100 mg Q4HR NEB 01/22/25 10:00 01/22/25 13:43 100 MG Oxycodone HCl 10 mg Q6HPRN PRN PO 01/22/25 18:00 Examination General examination- patient awake, alert, oriented HEENT- PEERLA, no acute nasal discharge Cardiovascular- S1-S2 audible, rate and rhythm regular, no murmur Respiratory- bilateral lung crackles, wheezing++ Gastrointestinal-nontender, bowel sound+. Nondistended Musculoskeletal-no acute joint swelling or tenderness or redness Lower extremity- leg edema++ Neurological- right-sided weakness on upper and lower extremity Psychiatry- denies depression or SI or HI Skin- no acute rash or purpura laboratory and microbiology Laboratory Tests 01/22/25 04:35 Test 01/22/25 04:35 Range/Units Serum Glucose 160 H 74-106 mg/dL Microbiology Date/Time Source Procedure Growth Status 01/17/25 09:58 Blood Blood Culture - Final NO GROWTH AFTER 5 DAYS OF INCUBATION. Complete 01/17/25 00:13 Nose MRSA Screen - Final Methicillin Resistant S.aureus Complete Problem List/Assessment/Plan Problem List/Assessment/Plan Problem List/Assessment/Plan Septic shock secondary to pneumonia Acute on chronic respiratory failure COPD exacerbation Community acquired pneumonia Gram+/Gram- Patient currently under empiric IV antibiotic (vancomycin, doxycycline and cefepime) Ordered pancultures COVID and influenza swab negative. MRSA positive in nares. Currently on oxygen therapy with nasal cannula 2 L/min (this is his home oxygen flow) Patient required IV vasopressors for 48 hours, currently off vasopressors. On midodrine per nephrology Hold antihypertensive medication -continue Lasix 40 mg IV daily as prescribed -repeat blood culture report on 01/17/2025 no growth Nephrology discontinued vancomycin -prompts to continue current conservative management KOLE hemodynamically mediated (VMN) Consulted Nephrology specialist: Avoid nephrotoxic medication, avoid hypotension, on p.o. midodrine. -Patient was started on dopamine drip by Nephrology Patient had increased urine output and negative balance of 1100 Acute on chronic diastolic congestive heart failure (HFpEF, LVEF 60%) NSTEMI likely type II due to above Ruled out acute coronary syndrome Chest pain likely pleuritic due to pneumonia CAD with history of SD s/p PCI with 5 stents Paroxysmal atrial fibrillation (chads Vasc 7) - secondary hypercoagulability state 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 Troponin is mildly elevated 56, from recent admission has lowered (above 60). No need to repeated troponin. Patient currently on clopidogrel and enoxaparin. On discharge patient will benefit from completed oral and DOACs (last stent placed was one month ago. Completed focus at bedside which showed dilated inferior vena cava, indicated IV diuretics (40 mg daily) History of thyroid disease: Resolved Ordered TSH which was within normal limits. Per patient he had incisional hypothyroidism 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 Bed-bound Per patient he became bed-bound after exploratory laparotomy. Patient currently on enoxaparin and clopidogrel Hypertension Dyslipidemia Diabetes Morbid obesity Discontinued antihypertensive medication due to septic shock On insulin sliding scale Goals of care discussed with patient for over 18 minutes: Full code status Discussed plan with Dr. Callahan, patient and nurses: Patient currently on telemetry status. On oxygen therapy, bronchodilators and IV antibiotics. Pending culture results. Patient has poor prognosis. Plan discussed with: Patient, Other (RN) My Orders My Orders Orders - PATIENCE BLACK Procedure Category Date Status Time Chest Without Contrast CT 01/22/25 Resulted 07:19 Acetylcysteine PHA 01/22/25 In Process Inhalation 10% 10:00 Chest Ultrasound US 01/22/25 Resulted 11:48 Oxycodone Immediate PHA 01/22/25 In Process Rel Tablet 18:00 Dietary Evaluation Review Comments: Request approval for Patricio to promote wound healing Physical therapy if possible Weight loss and less pressure on this buttlock Expected Outcomes/Goals: gradually healed wounds gradual wt loss Improved nutrition related lab values Visit Coding STANDARD RES Billing Provider: DANIEL CALLAHAN MD Date of Service if different f: Jan 22, 2025 Common Visit Codes: [id number] INP/OBS CARE(HIGH) PATIENCE BLACK Jan 22, 2025 17:40 DANIEL CALLAHAN MD Jan 23, 2025 15:11
[2025-01-23] VITALS (12 sets, daily range): BP systolic 96–140; BP diastolic 57–68; PULSE 53–82; RESP 16–20; TEMP 97.6–98; O2SAT 94–100
[2025-01-23 06:51] LABS: Hematocrit 32.6 % (41.0-53.0); Hemoglobin 10.5 g/dL (13.5-17.5); Mean Corpuscular Hemoglobin 25.7 pg (28.0-32.0); Mean Corpuscular Volume 80.1 fL (80.0-100.0); Nucleated Red Blood Cells % 0.0 %
[2025-01-23 06:53] LABS: Potassium 4.2 mmol/L (3.5-5.1); Sodium 140 mmol/L (136-145)
[2025-01-23 06:54] LABS: Anion Gap 3 (5-15); Calcium 9.0 mg/dL (8.7-10.4); Carbon Dioxide 30 mmol/L (20-31)
[2025-01-23 06:59] LABS: BUN/Creatinine Ratio 36.0 (10.0-20.0)
[2025-01-23 07:00] LABS: Magnesium 2.3 mg/dL (1.6-2.6)
[2025-01-23 07:08] LABS: Blood Urea Nitrogen 50 mg/dL (9-23); Chloride 107 mmol/L (98-107); Glucose 125 mg/dL (74-106)
[2025-01-23] MEDS: guaiFENesin-DM 100/10mg/5ml SYR PO PRN (09:42)
--- NOTE | 2025-01-23 10:52 | DVHPN2 ---
Progress Note Date Seen: Jan 23, 2025 Resident Creating Document: PUJA TOLLIVER RESIDENT Medical Necessity Reason Pt with a Central, PICC or Fol: Yes The following are medically ne: Central Line Subjective Patient reports: No new complaints, Feels better Other Systems: Patient seen and examined by myself today in follow-up with the medicine resident, I agree with his assessment and plan Objective vital signs Vital Sign Date Time Temp Pulse Resp B/P (MAP) Pulse Ox O2 Delivery O2 Flow Rate FiO2 01/23/25 09:53 82 19 99 01/23/25 09:53 Nasal Cannula* 3 32 01/23/25 09:49 119/61 01/23/25 08:59 97.7 97.7 Total Intake and Output 01/22/25 01/22/25 01/23/25 15:00 23:00 07:00 Intake Total 50 ml 625 ml 690 ml Output Total 755 ml Balance 50 ml -130 ml 690 ml medications Current Medications Medications Dose Ordered Sig/Yvette Route Start Time Stop Time Status Last Admin Dose Admin Ondansetron HCl 4 mg Q4HP PRN IV 01/15/25 14:15 01/15/25 15:40 4 MG Nitroglycerin 0.4 mg Q5MINP PRN SL 01/15/25 14:15 01/15/25 23:14 0.4 MG Bupropion HCl 150 mg DAILY PO 01/16/25 10:00 01/23/25 09:46 150 MG Clopidogrel Bisulfate 75 mg DAILY PO 01/16/25 10:00 01/23/25 09:46 75 MG Pantoprazole Sodium 40 mg QAM PO 01/16/25 07:00 01/23/25 06:33 40 MG Ranolazine 500 mg BID PO 01/15/25 22:00 01/23/25 09:46 500 MG Silver Sulfadiazine 1 applic DAILY TOP 01/16/25 10:00 01/23/25 09:48 1 APPLIC Atorvastatin Calcium 80 mg HS PO 01/15/25 22:00 01/22/25 21:27 80 MG Lactulose 15 ml BID PRN PO 01/15/25 15:00 Levetiracetam 750 mg BID PO 01/15/25 22:00 01/23/25 09:46 750 MG Patient Own Medication 1 patch DAILY TOP 01/16/25 10:00 Budesonide 0.5 mg BID NEB 01/15/25 22:00 01/23/25 06:47 0.5 MG Diagnostic Test (Pha) 1 strip ACHS 01/16/25 07:00 01/23/25 06:31 1 STRIP Insulin Human Regular ACHS SC 01/16/25 07:00 01/23/25 06:29 2 UNITS Dextrose 50 ml UD PRN IV 01/16/25 00:15 Mupirocin 1 applic BID TOP 01/16/25 22:00 01/22/25 21:27 1 APPLIC Cefepime HCl 50 ml @ 12.5 mls/hr Q12HR IV 01/17/25 10:00 01/23/25 09:50 12.5 MLS/HR Midodrine 2.5 mg TID@0600,1200,1800 PO 01/18/25 12:00 01/23/25 06:34 2.5 MG Ipratropium [place] 0.5 mg Q4HR NEB 01/19/25 10:00 01/23/25 09:52 0.5 MG Levalbuterol HCl 0.625 mg Q4HR NEB 01/19/25 10:00 01/23/25 09:53 0.625 MG Empaglifozin 10 mg DAILY PO 01/19/25 10:00 01/23/25 09:46 10 MG Furosemide 40 mg DAILY IV 01/20/25 10:00 01/23/25 09:49 40 MG Apixaban 5 mg BID PO 01/20/25 22:00 01/23/25 09:46 5 MG Dopamine HCl/ Dextrose 250 ml @ 9.165 mls/ hr Q24H IV 01/20/25 12:15 UNV Acetylcysteine 100 mg Q4HR NEB 01/22/25 10:00 01/23/25 09:53 100 MG Oxycodone HCl 10 mg Q6HPRN PRN PO 01/22/25 18:00 01/23/25 06:33 10 MG Guaifenesin/ Dextromethorphan 10 ml Q6HR PRN PO 01/23/25 09:15 01/23/25 09:42 10 ML laboratory and microbiology Laboratory Tests 01/23/25 06:18 Test 01/23/25 06:18 Range/Units Serum Glucose 125 H 74-106 mg/dL Microbiology Date/Time Source Procedure Growth Status 11/29/25 09:58 Blood Blood Culture - Final NO GROWTH AFTER 5 DAYS OF INCUBATION. Complete 01/17/25 00:13 Nose MRSA Screen - Final Methicillin Resistant S.aureus Complete Labs and/or images reviewed: Labs reviewed by me, Image(s) reviewed by me Problem List/Assessment/Plan Problem List/Assessment/Plan Acute kidney injury hemodynamically mediated in the setting of hypotension - improved Baseline renal function is normal Hypotension in the setting of opioid use and sepsis COPD exacerbation Congestive heart failure decompensated Pneumonia Sepsis Anemia Recommendations/plan Significant improvement urine output DC dopamine Improved kidney function and urine output DC vancomycin Monitor lab Assess fluid status daily Blood pressure management Avoid nephrotoxic agents will follow Vazquez catheter placement and explained the importance of urinary output recording as well as diagnosis however patient refused Lasix IV push recommend daily for long-term for given heart failure Monitor electrolytes P.o. midodrine if patient has hypotension Rest of care as per primary medical team Case discussed with the Dr. May Plan discussed with: Patient, Other (Dr richardson) Dietary Evaluation Review Comments: Request approval for Patricio to promote wound healing Physical therapy if possible Weight loss and less pressure on this buttlock Expected Outcomes/Goals: gradually healed wounds gradual wt loss Improved nutrition related lab values PUJA TOLLIVER RESIDENT Jan 23, 2025 10:52 HOUSTON MAY MD Jan 24, 2025 09:38
--- NOTE | 2025-01-23 15:32 | DVHDSRES ---
Discharge Summary Date of Admission Resident Creating Document: PUJA TOLLIVER RESIDENT Jan 15, 2025 at 14:11 Date of Discharge: Jan 23, 2025 Admitting Diagnosis Pneumonia with acute hypoxic respiratory failure Labs/Diagnostic Data: Laboratory Results Test 01/23/25 12:38 01/23/25 06:18 01/22/25 04:35 01/21/25 02:00 POC Glucose 130 mg/dl (70-106) White Blood Count 14.0 10^3/uL (4.4-10.8) Red Blood Count 4.07 10^6/uL (4.5-5.90) Hemoglobin 10.5 g/dL (13.5-17.5) Hematocrit 32.6 % (41.0-53.0) Mean Corpuscular Volume 80.1 fL (80.0-100.0) Mean Corpuscular Hemoglobin 25.7 pg (28.0-32.0) Mean Corpuscular Hemoglobin Concent 32.1 g/dL (32.0-36.0) Red Cell Distribution Width 18.9 % (11.8-14.3) Platelet Count 280 10^3/uL (140-450) Mean Platelet Volume 9.0 fL (6.9-10.8) Neutrophils (%) (Auto) 83.9 % (37.0-80.0) Lymphocytes (%) (Auto) 7.2 % (10.0-50.0) Monocytes (%) (Auto) 8.9 % (0.0-12.0) Eosinophils (%) (Auto) 0.0 % (0.0-7.0) Basophils (%) (Auto) 0.0 % (0.0-2.0) Neutrophils # (Auto) 11.7 10 ^3/uL (1.6-8.6) Lymphocytes # (Auto) 1.0 10 ^3/uL (0.4-5.4) Monocytes # (Auto) 1.2 10 ^3/uL (0-1.3) Eosinophils # (Auto) 0 10 ^3/uL (0-0.8) Basophils # (Auto) 0 10 ^3/uL (0-0.2) Nucleated Red Blood Cells 0.0 % Sodium Level 140 mmol/L (136-145) Potassium Level 4.2 mmol/L (3.5-5.1) Chloride Level 107 mmol/L (98-107) Carbon Dioxide Level 30 mmol/L (20-31) Anion Gap 3 (5-15) Blood Urea Nitrogen 50 mg/dL (9-23) Creatinine 1.39 mg/dL (0.700-1.30) Glomerular Filtration Rate Calc 54 mL/min (>90) BUN/Creatinine Ratio 36.0 (10.0-20.0) Serum Glucose 125 mg/dL (74-106) Calcium Level 9.0 mg/dL (8.7-10.4) Magnesium Level 2.3 mg/dL (1.6-2.6) Total Bilirubin 0.2 mg/dL (0.2-1.0) Aspartate Amino Transferase (AST) 16 U/L (13-40) Alanine Aminotransferase (ALT) 13 U/L (7-40) Alkaline Phosphatase 55 U/L (46-116) Total Protein 6.6 g/dL (5.7-8.2) Albumin 2.9 g/dL (3.2-4.8) Urine Color Light-yellow (Yellow) Urine Clarity Clear (Clear) Urine pH 5.5 (5.0-9.0) Urine Specific [place] 1.020 (1.001-1.035) Urine Protein Negative (Negative) Urine Ketones Trace (Negative) Urine Blood Negative /uL (Negative) Urine Nitrite Negative (Negative) Urine Bilirubin Negative (Negative) Urine Urobilinogen Normal mg/dL (Negative) Urine Leukocyte Esterase Negative /uL (Negative) Urine RBC None seen /hpf (0 - 3) Urine Microscopic WBC < 1 /HPF (0-3) Urine Squamous Epithelial Cells None seen /hpf (<5) Urine Bacteria None seen /hpf (None Seen) Urine Creatinine 69.62 mg/dL (30.0-125.0) Urine Protein/Creatinine Ratio 0.46 Urine Sodium 11 mmol/L (40-220) Urine Glucose 4+ mg/dL (Normal) Urine Total Protein 31.8 mg/dL (1-14) Test 01/20/25 06:20 01/19/25 04:52 01/18/25 08:13 01/17/25 09:56 Phosphorus Level 3.1 mg/dL (2.4-5.1) Random Vancomycin Level 19.7 ug/mL (5-10) Parathyroid Hormone (Intact) 142.6 pg/mL (18.4-80.1) Lactic Acid Level 1.1 mmol/L (0.4-2.0) Ammonia < 10 umol/L (11-32) Test 01/17/25 08:25 01/16/25 06:40 01/16/25 04:57 01/15/25 16:52 Blood Gas Specimen Type Arterial Blood Gas Sample Site Right radial Blood Gas Patient Temperature 37.0 Arterial Blood Date Drawn [id number] Arterial Blood pH 7.420 (7.350-7.450) Arterial Blood Partial Pressure CO2 39.3 mmHg (35.0-48.0) Arterial Blood Partial Pressure O2 75.2 mmHg (83.0-108.0) Arterial Blood HCO3 24.9 mmol/L (21.0-28.0) Arterial Blood Oxygen Saturation 94.1 % (94.0-98.0) Arterial Blood Base Excess 0.5 mmol/L (-2.0-3.0) Arterial Blood Oxyhemoglobin 93.3 % (94.0-98.0) Arterial Blood Carboxyhemoglobin 0.6 % (0.5-1.5) Arterial Blood Methemoglobin 0.2 % (0.0-1.5) Arterial Blood Deoxyhemoglobin 5.9 % (0.0-5.0) Jose Roberto Test Yes Blood Gas Total Hemoglobin 10.50 g/dL (13.5-17.5) Blood Gas Liter Flow 1.00 Blood Gas Modality Nasal cannula FiO2 % 24.0 B-Type Natriuretic Peptide 151.22 pg/mL (0-100) Troponin I High Sensitivity 74 ng/L (</=54) Urine Hyaline Casts Few /lpf (0 - 2) Urine Opiates Screen Neg (NEGATIVE) Urine Fentanyl Screen Neg (NEGATIVE) Urine Barbiturates Screen Neg (NEGATIVE) Urine Phencyclidine Screen Neg (NEGATIVE) Urine Amphetamines Screen Neg (NEGATIVE) Urine Benzodiazepines Screen Neg (NEGATIVE) Urine Cocaine Screen Neg (NEGATIVE) Urine Cannabinoids Screen Neg (NEGATIVE) Test 01/15/25 14:57 01/15/25 12:51 01/15/25 12:41 Influenza Type A Antigen Negative (Negative) Influenza Type B Antigen Negative (Negative) SARS-CoV-2 Antigen (Rapid) Negative (NEGATIVE) Hemoglobin A1c 5.3 % A1C (<5.7) Prothrombin Time 11.0 sec (9.3-11.8) Prothrombin Time INR 1.04 (0.9-1.15) Activated Partial Thromboplast Time 28.6 SEC (24.5-34.5) Triglycerides Level 65 mg/dL (< 150) Cholesterol Level 139 mg/dL (< 200) LDL Cholesterol 90 mg/dL (< 100) HDL Cholesterol 37 mg/dL (40-59) Vitamin B12 Level 456 pg/mL (211-911) Vitamin D 25-Hydroxy 13.1 ng/mL (30.0-100) Thyroid Stimulating Hormone (TSH) 1.05 uIU/mL (0.55-4.78) Other Laboratory Tests 01/23/25 06:18 Brief Hx & Hospital Course: Patient is 70 years old male with past medical history of Hypertension, dyslipidemia, diabetes, CAD with history of VA s/p PCI with 5 stents DESon DAPT, HFpEF, Paroxysmal atrial fibrillation (CV-7), tachy-leandro syndrome s/p leadless pacemaker placement, COPD on home oxygen (2L/min), CVA with residual right weakness, bed bound after exploratory surgery for kidney disease per patient,, urinary incontinence came with a complaint of worsening shortness of breaths. As per patient he has been having worsening shortness of breaths since yesterday. Shortness of breath associated with cough with a yellowish sputum production. Patient also endorsed chest pain on the left side, started when he was on bed, gradual, 8/10, pressure-like, radiating to the left arm, no aggravating or relieving factor. On further inquiry patient reported he has bilateral leg swelling but does not know how long it has been going on. Patient also endorsed nausea but no vomiting. Patient denied fever, palpitation, acute joint rash, acute dysarthria or change in vision. Initial lab workup revealed hemoglobin 10.7, RDW 18.5, potassium 3.9, serum creatinine 1. 0 1, GFR 80, troponin> I 56> 75> 74> 74. UA negative, UDS negative. Chest q-[id number]-[id number] pulmonary edema. trace bibasilar effusion. Transesophageal echo on 09/15/2024 revealed LVEF 60%, severe LVH, CT chest revealed bilateral moderate pleural effusion with a atelectasis, cardiomegaly. Ultrasound of the kidney no culture system dilatation. Bilateral leg cyst. During hospital course patient was on Levophed due to septic shock. Patient was treated with cefepime and doxycycline and vancomycin. Patient was seen by Nephrology for KOLE on CKD. Patient was on dopamine drip, midodrine. Patient's symptom symptoms with conservative managed. MRSA nares positive, patient was on mupirocin ointment. Blood culture no growth. Patient is being discharged home with the oral antibiotic levofloxacin 500 mg p.o. for 5 days. Patient was advised to follow up at [facility] clinic/PCP/Cardiology/nephrology. Patient was hemodynamically stable on discharge. All questions answered. General examination- patient awake, alert, oriented HEENT- PEERLA, no acute nasal discharge Cardiovascular- S1-S2 audible, rate and rhythm regular, no murmur Respiratory- CTAB Gastrointestinal-nontender, bowel sound+. Nondistended Musculoskeletal-no acute joint swelling or tenderness or redness Lower extremity- leg edema+ Neurological- right-sided weakness on upper and lower extremity Psychiatry- denies depression or SI or HI Skin- no acute rash or purpura Plan of care discussed with Dr. Callahan Consults/Reason for consult Patient: NAVID SANCHEZ Acct: [id number] : 1955 Loc: [facility] Age/Sex: 70/M [id number] Progress Note Date Seen: Jan 23, 2025 Resident Creating Document: PUJA TOLLIVER RESIDENT Medical Necessity Reason Pt with a Central, PICC or Fol: Yes The following are medically ne: Central Line Subjective Patient reports: No new complaints, Feels better Objective vital signs Vital Sign Date Time Temp Pulse Resp B/P (MAP) Pulse Ox O2 Delivery O2 Flow Rate FiO2 01/23/25 09:53 82 19 99 01/23/25 09:53 Nasal Cannula* 3 32 01/23/25 09:49 119/61 01/23/25 08:59 97.7 97.7 Total Intake and Output 01/22/25 01/22/25 01/23/25 15:00 23:00 07:00 Intake Total 50 ml 625 ml 690 ml Output Total 755 ml Balance 50 ml -130 ml 690 ml medications Current Medications Medications Dose Ordered Sig/Yvette Route Start Time Stop Time Status Last Admin Dose Admin Ondansetron HCl 4 mg Q4HP PRN IV 01/15/25 14:15 01/15/25 15:40 4 MG Nitroglycerin 0.4 mg Q5MINP PRN SL 01/15/25 14:15 01/15/25 23:14 0.4 MG Bupropion HCl 150 mg DAILY PO 01/16/25 10:00 01/23/25 09:46 150 MG Clopidogrel Bisulfate 75 mg DAILY PO 01/16/25 10:00 01/23/25 09:46 75 MG Pantoprazole Sodium 40 mg QAM PO 01/16/25 07:00 01/23/25 06:33 40 MG Ranolazine 500 mg BID PO 01/15/25 22:00 01/23/25 09:46 500 MG Silver Sulfadiazine 1 applic DAILY TOP 01/16/25 10:00 01/23/25 09:48 1 APPLIC Atorvastatin Calcium 80 mg HS PO 01/15/25 22:00 01/22/25 21:27 80 MG Lactulose 15 ml BID PRN PO 01/15/25 15:00 Levetiracetam 750 mg BID PO 01/15/25 22:00 01/23/25 09:46 750 MG Patient Own Medication 1 patch DAILY TOP 01/16/25 10:00 Budesonide 0.5 mg BID NEB 01/15/25 22:00 01/23/25 06:47 0.5 MG Diagnostic Test (Pha) 1 strip ACHS 01/16/25 07:00 01/23/25 06:31 1 STRIP Insulin Human Regular ACHS SC 01/16/25 07:00 01/23/25 06:29 2 UNITS Dextrose 50 ml UD PRN IV 01/16/25 00:15 Mupirocin 1 applic BID TOP 01/16/25 22:00 01/22/25 21:27 1 APPLIC Cefepime HCl 50 ml @ 12.5 mls/hr Q12HR IV 01/17/25 10:00 01/23/25 09:50 12.5 MLS/HR Midodrine 2.5 mg TID@0600,1200,1800 PO 01/18/25 12:00 01/23/25 06:34 2.5 MG Ipratropium [place] 0.5 mg Q4HR NEB 01/19/25 10:00 01/23/25 09:52 0.5 MG Levalbuterol HCl 0.625 mg Q4HR NEB 01/19/25 10:00 125/25 09:53 0.625 MG Empaglifozin 10 mg DAILY PO 01/19/25 10:00 01/23/25 09:46 10 MG Furosemide 40 mg DAILY IV 01/20/25 10:00 01/23/25 09:49 40 MG Apixaban 5 mg BID PO 01/20/25 22:00 01/23/25 09:46 5 MG Dopamine HCl/ Dextrose 250 ml @ 9.165 mls/ hr Q24H IV 01/20/25 12:15 UNV Acetylcysteine 100 mg Q4HR NEB 01/22/25 10:00 01/23/25 09:53 100 MG Oxycodone HCl 10 mg Q6HPRN PRN PO 01/22/25 18:00 01/23/25 06:33 10 MG Guaifenesin/ Dextromethorphan 10 ml Q6HR PRN PO 01/23/25 09:15 01/23/25 09:42 10 ML laboratory and microbiology Laboratory Tests 01/23/25 06:18 Test 01/23/25 06:18 Range/Units Serum Glucose 125 H 74-106 mg/dL Microbiology Date/Time Source Procedure Growth Status 01/17/25 09:58 Blood Blood Culture - Final NO GROWTH AFTER 5 DAYS OF INCUBATION. Complete 01/17/25 00:13 Nose MRSA Screen - Final Methicillin Resistant S.aureus Complete Labs and/or images reviewed: Labs reviewed by me, Image(s) reviewed by me Problem List/Assessment/Plan Problem List/Assessment/Plan Acute kidney injury hemodynamically mediated in the setting of hypotension - improved Baseline renal function is normal Hypotension in the setting of opioid use and sepsis COPD exacerbation Congestive heart failure decompensated Pneumonia Sepsis Anemia Recommendations/plan Significant improvement urine output DC dopamine Improved kidney function and urine output DC vancomycin Monitor lab Assess fluid status daily Blood pressure management Avoid nephrotoxic agents will follow Vazquez catheter placement and explained the importance of urinary output recording as well as diagnosis however patient refused Lasix IV push recommend daily for long-term for given heart failure Monitor electrolytes P.o. midodrine if patient has hypotension Rest of care as per primary medical team Case discussed with the Dr. May Plan discussed with: Patient, Other (Dr richardson) Dietary Evaluation Review Comments: Request approval for Patricio to promote wound healing Physical therapy if possible Weight loss and less pressure on this buttlock Expected Outcomes/Goals: gradually healed wounds gradual wt loss Improved nutrition related lab values PUJA TOLLIVER Jan 23, 2025 10:52 E/M VISIT PERFORMED BY: TRANSCRIBED BY:PUJA TOLLIVER TRANSCRIBED DATE/TIME:01/23/25 105 ELECTRONICALLY SIGNED BY:PUJA TOLLIVER 01/23/25 105 ELECTRONICALLY CO-SIGNED BY: Patient: NAVID SANCHEZ Acct: [id number] : 1955 Loc: [facility] Age/Sex: 70/M [id number] Progress Note Date Seen: Jan 20, 2025 Resident Creating Document: PUJA TOLLIVER Medical Necessity Reason Pt with a Central, PICC or Fol: No (RN, sister) Subjective Review of Systems Patient seen and examined at the bedside. No new complaints at this time. Reported improvement in symptoms since admission. Patient reports: Feels better Other Systems: Patient seen and examined by myself today on rounds with the medicine resident, I agree with the assessment and plan Objective vital signs Vital Sign Date Time Temp Pulse Resp B/P (MAP) Pulse Ox O2 Delivery O2 Flow Rate FiO2 01/20/25 11:56 128/97 01/20/25 10:00 98 Room Air 01/20/25 10:00 0 21 01/20/25 09:14 67 16 01/20/25 09:00 97.3 97.3 Total Intake and Output 01/19/25 01/19/25 01/20/25 15:00 23:00 07:00 Intake Total 200 ml 800 ml Output Total 200 ml Balance 200 ml 600 ml medications Current Medications Medications Dose Ordered Sig/Yvette Route Start Time Stop Time Status Last Admin Dose Admin Ondansetron HCl 4 mg Q4HP PRN IV 01/15/25 14:15 01/15/25 15:40 4 MG Nitroglycerin 0.4 mg Q5MINP PRN SL 01/15/25 14:15 01/15/25 23:14 0.4 MG Bupropion HCl 150 mg DAILY PO 01/16/25 10:00 01/20/25 09:47 150 MG Clopidogrel Bisulfate 75 mg DAILY PO 01/16/25 10:00 01/20/25 09:48 75 MG Pantoprazole Sodium 40 mg QAM PO 01/16/25 07:00 01/20/25 06:32 40 MG Ranolazine 500 mg BID PO 01/15/25 22:00 01/20/25 09:47 500 MG Silver Sulfadiazine 1 applic DAILY TOP 01/16/25 10:00 01/20/25 09:49 1 APPLIC Atorvastatin Calcium 80 mg HS PO 01/15/25 22:00 01/19/25 22:45 80 MG Lactulose 15 ml BID PRN PO 01/15/25 15:00 Levetiracetam 750 mg BID PO 01/15/25 22:00 01/20/25 09:47 750 MG Patient Own Medication 1 patch DAILY TOP 01/16/25 10:00 Budesonide 0.5 mg BID NEB 01/15/25 22:00 01/20/25 06:38 0.5 MG Diagnostic Test (Pha) 1 strip ACHS 01/16/25 07:00 01/20/25 11:47 1 STRIP Insulin Human Regular ACHS SC 01/16/25 07:00 01/20/25 11:57 3 UNITS Dextrose 50 ml UD PRN IV 01/16/25 00:15 Methylprednisolone Sodium Succinate 40 mg BID IV 01/16/25 10:30 01/20/25 09:47 40 MG Mupirocin 1 applic BID TOP 01/16/25 22:00 01/20/25 09:49 1 APPLIC Cefepime HCl 50 ml @ 12.5 mls/hr Q12HR IV 01/17/25 10:00 01/20/25 09:49 12.5 MLS/HR Midodrine 2.5 mg TID@0600,1200,1800 PO 01/18/25 12:00 01/20/25 11:56 2.5 MG Ipratropium [place] 0.5 mg Q4HR NEB 01/19/25 10:00 01/20/25 09:08 0.5 MG Levalbuterol HCl 0.625 mg Q4HR NEB 01/19/25 10:00 01/20/25 09:08 0.625 MG Empaglifozin 10 mg DAILY PO 01/19/25 10:00 01/20/25 09:47 10 MG Oxycodone HCl 10 mg Q6HP PRN PO 01/19/25 07:45 01/19/25 23:10 10 MG Furosemide 40 mg DAILY IV 01/20/25 10:00 01/20/25 09:49 40 MG Dopamine HCl/ Dextrose 250 ml @ 9.165 mls/ hr Q24H IV 01/20/25 09:30 01/20/25 11:56 9.165 MLS/HR Apixaban 5 mg BID PO 01/20/25 22:00 UNV Examination General examination- alert oriented x3 HEENT- PEERLA, no acute nasal discharge Cardiovascular- S1-S2 audible, rate and rhythm regular, no murmur Respiratory- CTAB, no wheeze or rhonchi Gastrointestinal-abdomen distended, abdominal icterus, ascites present Musculoskeletal-no acute joint swelling or tenderness or redness Lower extremity- bilateral leg edema++, bruise in the bilateral upper extremity and lower extremity laboratory and microbiology Laboratory Tests 01/20/25 06:20 Test 01/20/25 06:20 Range/Units Serum Glucose 161 H 74-106 mg/dL Microbiology Date/Time Source Procedure Growth Status 01/17/25 09:58 Blood Blood Culture - Preliminary NO GROWTH AFTER 72 HOURS OF INCUBATION. Resulted 01/17/25 00:13 Nose MRSA Screen - Final Methicillin Resistant S.aureus Complete Labs and/or images reviewed: Labs reviewed by me, Image(s) reviewed by me Problem List/Assessment/Plan Problem List/Assessment/Plan Acute kidney injury hemodynamically mediated in the setting of hypotension Vancomycin nephrotoxicity Baseline renal function is normal Hypotension in the setting of opioid use and sepsis COPD exacerbation Congestive heart failure decompensated Pneumonia Sepsis Anemia Recommendations Dopamine Slightly worsened kidney function and urine output DC vancomycin Monitor lab Assess fluid status daily Blood pressure management Avoid nephrotoxic agents will follow Vazquez catheter placement and explained the importance of urinary output recording as well as diagnosis however patient refused Lasix IV push recommend daily Monitor electrolytes P.o. midodrine if patient has hypotension Rest of care as per primary medical team Case discussed with the Dr. May Plan discussed with: Patient, Other (rn) My Orders My Orders Orders - PUAJ TOLLIVER RESIDENT Procedure Category Date Status Time Furosemide Injection PHA 01/20/25 In Process (Lasix Injection) 10:00 Dietary Evaluation Review Comments: Request approval for Patricio to promote wound healing Physical therapy if possible Weight loss and less pressure on this buttlock Expected Outcomes/Goals: gradually healed wounds gradual wt loss Improved nutrition related lab values PUJA TOLLIVER RESIDENT Jan 20, 2025 12:10 HOUSTON MAY MD Jan 20, 2025 15:34 E/M VISIT PERFORMED BY:HOUSTON MAY MD TRANSCRIBED BY:PUJA TOLLIVER TRANSCRIBED DATE/TIME:01/20/25 121 ELECTRONICALLY SIGNED BY:PUJA TOLLIVER 01/20/25 1210 ELECTRONICALLY CO-SIGNED BY:HOUSTON MAY MD01/20/25 1534 Operations or Procedures [place] [id number] Ph: [phone] DIAGNOSTIC IMAGING Diagnostic Imaging Report : [id number] Signed PATIENT: NAVID SANCHEZ ACCT: [id number] UNIT: [id number] : 1955 LOC: ER ROOM / BED: / AGE / SEX: 70 / M ADM STATUS: REG ER SERVICE 1232 ORDERING PHYSICIAN: ROSELYN CHANG MD PROCEDURE(s): CXRP - CHEST PORTABLE REASON: SHORTNESS OF BREATH ORDER NUMBER(s): [id number], ACCESSION NUMBER(s): [id number] CHEST RADIOGRAPH Indication: SHORTNESS OF BREATH Technique: Single frontal view of the chest was obtained Comparison: XY CHEST PORTABLE on DOS: 01/10/25, XR CHEST 1 VIEW on DOS: 01/04/25, XR CHEST 1 VIEW on DOS: 12/27/24, XY CHEST PORTABLE on DOS: 12/23/24, XY CHEST XRAY 1 VIEW on DOS: 12/13/24 FINDINGS: Lines and Tubes: None Lungs: Extensive pulmonary edema. Underlying focal consolidation is not excluded. Pleura: Likely trace bibasilar effusion No pneumothorax. Cardiomediastinal contours: Mild cardiomegaly Bones: No acute osseous abnormality. IMPRESSION: 1. Extensive pulmonary edema. trace bibasilar effusion 2. Underlying focal consolidation is not excluded. ATED BY: DELMAR BAI MD DICTATED DATE/TIME: 01/15/25 1317 SIGNED BY: DELMAR BAI MD SIGNED DATE/TIME: 01/15/25 1317 CC: [address] [id number] Ph: [phone] DIAGNOSTIC IMAGING Diagnostic Imaging Report : [id number] Signed PATIENT: NAVID SANCHEZ ACCT: [id number] UNIT: [id number] : 1955 LOC: [facility] ROOM / BED: [address] [place] [address] AGE / SEX: 70 / M ADM STATUS: ADM IN SERVICE 0833 ORDERING PHYSICIAN: PATIENCE RICHARDSON PROCEDURE(s): CXR1 - CHEST XRAY 1 VIEW REASON: PNA/HF ORDER NUMBER(s): [id number], ACCESSION NUMBER(s): [id number] CHEST RADIOGRAPH Indication: PNA/HF Technique: Single frontal view of the chest was obtained. Comparison: XY CHEST PORTABLE on DOS: 01/15/25 Findings: Mild pulmonary vascular congestion. No significant pleural effusion. No pneumothorax. Enlarged cardiomediastinal silhouette. IMPRESSION: Enlarged cardiomediastinal silhouette with mild pulmonary vascular congestion. ATED BY: LORI DE LA CRUZ MD DICTATED DATE/TIME: 01/17/25 09 SIGNED BY: LORI DE LA CRUZ MD SIGNED DATE/TIME: 01/17/25 09 CC: [facility] [id number] [place] [address] Ph: [phone] DIAGNOSTIC IMAGING Diagnostic Imaging Report : [id number] Signed PATIENT: NAVID SANCHEZ ACCT: [id number] UNIT: [id number] : 1955 LOC: [facility] ROOM / BED: [address] [place] [address] AGE / SEX: 70 / M ADM STATUS: ADM IN SERVICE 1628 ORDERING PHYSICIAN: PATIENCE RICHARDSON PROCEDURE(s): CXRP - CHEST PORTABLE REASON: central line placement ORDER NUMBER(s): [id number], ACCESSION NUMBER(s): [id number] CHEST RADIOGRAPH Indication: central line placement Technique: Single frontal view of the chest was obtained Comparison: XY CHEST XRAY 1 VIEW on DOS: 01/17/25, XY CHEST PORTABLE on DOS: 01/15/25, XY CHEST PORTABLE on DOS: 01/10/25 FINDINGS: Lines and Tubes: Right internal jugular line in place with the tip in the superior vena cava or cavoatrial junction. There is no pneumothorax on the right. Lungs: Bilateral perihilar peribronchial thickening. Pleura: No effusion. No pneumothorax. Cardiomediastinal contours: Stable cardiomegaly Bones: No acute osseous abnormality. IMPRESSION: 1. Stable cardiomegaly. 2. Right internal jugular catheter in place with the tip at the cavoatrial junction. 3. No pneumothorax on the right. ATED BY: SANCHEZ GARCÍA Jr., DO DICTATED DATE/TIME: 01/17/251702 SIGNED BY: SANCHEZ GARCÍA Jr., SIGNED DATE/TIME: 01/17/251702 CC: [place] [id number] Ph: [phone] DIAGNOSTIC IMAGING Diagnostic Imaging Report : [id number] Signed PATIENT: NAVID SANCHEZ ACCT: [id number] UNIT: [id number] : 1955 LOC: [facility] ROOM / BED: [address] [place] [address] AGE / SEX: 70 / M ADM STATUS: ADM IN SERVICE 9 ORDERING PHYSICIAN: PATIENCE RICHARDSON RESIDENT PROCEDURE(s): CXR1 - CHEST XRAY 1 VIEW REASON: PNA/HF ORDER NUMBER(s): [id number], ACCESSION NUMBER(s): [id number] CHEST RADIOGRAPH Indication: PNA/HF Technique: Single frontal view of the chest was obtained COMPARISON: XY CHEST PORTABLE on DOS: 01/17/25, XY CHEST XRAY 1 VIEW on DOS: 01/17/25, XY CHEST PORTABLE on DOS: 01/15/25, XY CHEST PORTABLE on DOS: 01/10/25, XR CHEST 1 VIEW on DOS: 01/04/25 FINDINGS: Lines and Tubes: Right central venous catheter in satisfactory position. Lungs: Pulmonary vascular congestion. Pleura: No effusion.No pneumothorax. Cardiomediastinal contours: Cardiomegaly. Bones: Unremarkable IMPRESSION: Pulmonary vascular congestion. ATED BY: WAQAR PARRY MD DICTATED DATE/TIME: 01/18/25809 SIGNED BY: WAQAR PARRY MD SIGNED DATE/TIME: 01/18/25809 CC: [place] [id number] Ph: [phone] DIAGNOSTIC IMAGING Diagnostic Imaging Report : [id number] Signed PATIENT: NAVID SANCHEZ ACCT: [id number] UNIT: [id number] : 1955 LOC: [facility] ROOM / BED: 0232T / A AGE / SEX: 70 / M ADM STATUS: ADM IN SERVICE 8 ORDERING PHYSICIAN: PATIENCE RICHARDSON RESIDENT PROCEDURE(s): CX2CT - CHEST WITHOUT CONTRAST REASON: Pneumonia/consolidation/effusion/collapse lung ORDER NUMBER(s): [id number], ACCESSION NUMBER(s): [id number] Procedure: CT CHEST WITHOUT CONTRAST Reason for study/Clinical History: Pneumonia/consolidation/effusion/collapse lung Comparison Study: XY CHEST XRAY 1 VIEW on DOS: 01/18/25, XY CHEST PORTABLE on DOS: 01/17/25, XY CHEST XRAY 1 VIEW on DOS: 01/17/25, XY CHEST PORTABLE on DOS: 01/15/25, XY CHEST PORTABLE on DOS: 01/10/25 TECHNIQUE: Multidetector CT of the chest was performed from the lung apices to the upper abdomen without the use of intravenous contract. Axial, coronal and sagittal multiplanar reformats were performed. Radiation Dose Information: CT Dose: CTDI volume is 29.33 mGy. Dose-length product is 2.54 mGy*cm The dose indicators for CT are the volume Computed Tomography (CT) Dose Index (CTDIvol) and the Dose Length Product (DLP), and are measured in units of mGy and mGy-cm, respectively. These indicators are not patient dose, but values generated from the CT scanner acquisition factors. The report includes radiation exposure data for exposures received during this examination. FINDINGS: Lower neck: Right central venous catheter in satisfactory position. Lungs: Bilateral lower lobe compressive atelectasis. Heart/Vascular Structures: Cardiomegaly. Coronary artery calcifications. Vascular calcifications of the aorta. Lymph Nodes: No adenopathy Pleura: Moderate bilateral pleural effusions. Musculoskeletal: No acute osseous abnormality. Multilevel degenerative changes of the spine Soft tissues: Normal. Upper abdomen: Limited portions of the upper abdomen are unremarkable. IMPRESSION: 1. Moderate bilateral pleural effusions with compressive atelectasis. 2. Cardiomegaly. Radiation optimization: All CT scans at this facility use at least one of these dose optimization techniques: automated exposure control mA and/or kV adjustment per patient size (includes targeted exams where dose is matched to clinical indication) or iterative reconstruction. ATED BY: WAQAR PARRY MD DICTATED DATE/TIME: 01/22/251137 SIGNED BY: WAQAR PARRY MD SIGNED DATE/TIME: 01/22/251137 CC: [place] [id number] Ph: [phone] DIAGNOSTIC IMAGING Diagnostic Imaging Report : [id number] Signed PATIENT: NAVID SANCHEZ ACCT: [id number] UNIT: [id number] : 1955 LOC: [facility] / BED: [facility] / A AGE / SEX: 70 / M ADM STATUS: ADM IN SERVICE 8 ORDERING PHYSICIAN: PATIENCE RICHARDSON RESIDENT PROCEDURE(s): CX2CT - CHEST WITHOUT CONTRAST REASON: Pneumonia/consolidation/effusion/collapse lung ORDER NUMBER(s): [id number], ACCESSION NUMBER(s): [id number] Procedure: CT CHEST WITHOUT CONTRAST Reason for study/Clinical History: Pneumonia/consolidation/effusion/collapse lung Comparison Study: XY CHEST XRAY 1 VIEW on DOS: 01/18/25, XY CHEST PORTABLE on DOS: 01/17/25, XY CHEST XRAY 1 VIEW on DOS: 01/17/25, XY CHEST PORTABLE on DOS: 01/15/25, XY CHEST PORTABLE on DOS: 01/10/25 TECHNIQUE: Multidetector CT of the chest was performed from the lung apices to the upper abdomen without the use of intravenous contract. Axial, coronal and sagittal multiplanar reformats were performed. Radiation Dose Information: CT Dose: CTDI volume is 29.33 mGy. Dose-length product is 2.54 mGy*cm The dose indicators for CT are the volume Computed Tomography (CT) Dose Index (CTDIvol) and the Dose Length Product (DLP), and are measured in units of mGy and mGy-cm, respectively. These indicators are not patient dose, but values generated from the CT scanner acquisition factors. The report includes radiation exposure data for exposures received during this examination. FINDINGS: Lower neck: Right central venous catheter in satisfactory position. Lungs: Bilateral lower lobe compressive atelectasis. Heart/Vascular Structures: Cardiomegaly. Coronary artery calcifications. Vascular calcifications of the aorta. Lymph Nodes: No adenopathy Pleura: Moderate bilateral pleural effusions. Musculoskeletal: No acute osseous abnormality. Multilevel degenerative changes of the spine Soft tissues: Normal. Upper abdomen: Limited portions of the upper abdomen are unremarkable. IMPRESSION: 1. Moderate bilateral pleural effusions with compressive atelectasis. 2. Cardiomegaly. Radiation optimization: All CT scans at this facility use at least one of these dose optimization techniques: automated exposure control mA and/or kV adjustment per patient size (includes targeted exams where dose is matched to clinical indication) or iterative reconstruction. ATED BY: WAQAR PARRY MD DICTATED DATE/TIME: 01/22/25 1138 SIGNED BY: WAQAR PARRY MD SIGNED DATE/TIME: 01/22/25 1138 CC: Condition at Discharge: Stable Final Diagnosis/Problems List Septic shock secondary to pneumonia Gram-positive versus Gram-negative Acute on chronic respiratory failure COPD exacerbation Community acquired pneumonia Gram+/Gram- KOLE hemodynamically mediated (VMN) Acute on chronic diastolic congestive heart failure (HFpEF, LVEF 60%) NSTEMI likely type II due to above Ruled out acute coronary syndrome Chest pain likely pleuritic due to pneumonia CAD with history of VA s/p PCI with 5 stents Paroxysmal atrial fibrillation (chads Vasc 7) - secondary hypercoagulability state 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 History of thyroid disease: Resolved 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 Bed-bound Hypertension Dyslipidemia Diabetes Discharge Disposition: Home Discharge Instruct/Medications Diet: Consistent carbohydrate, Cardiac 2g Na,low cholest, Renal Activity: See Comment Activity comment: PATIENT BED BOUND Follow Up/Referral: [facility] CLINIC PCP CARDIOLOGY NEPHROLOGY Medications: as avove Scheduled Amlodipine Besylate (Amlodipine Besylate), 1 TAB PO DAILY, (Reported) Aspirin (Aspirin Regular Strength), 1 TAB PO DAILY, (Reported) Atorvastatin Calcium (Lipitor), 1 TAB PO DAILY, (Reported) Beclomethasone Dipropionate (Qvar Redihaler), 1 PUFF INH BID, (Reported) Budesonide-Formoterol Fumarate (Budesonide/Formoterol Fum 160-4.5 Mcg/Act), 2 PUFF IN BID, (Reported) Bupropion Hcl (Bupropion Hcl), 2 TAB PO DAILY, (Reported) Clopidogrel Bisulfate (Clopidogrel), 1 TAB PO DAILY, (Reported) Dapagliflozin Propanediol (Farxiga), 1 TAB PO DAILY, (Reported) Empagliflozin (Jardiance), 10 MG PO DAILY Furosemide (Lasix), 40 MG PO BID Gabapentin (Gabapentin), 1 TAB PO BID, (Reported) Ipratropium-Albuterol (Combivent Respimat), 1 PUFF INH QID, (Reported) Lactulose (Lactulose), 15 ML PO BID PRN, (Reported) Levetiracetam (Levetiracetam), 1 TAB PO BID, (Reported) Levofloxacin Hemihydrate (Levaquin 500 Mg), 1 TAB PO DAILY Lidocaine (Lidocaine Topical Pain Pa), 1 PATCH TOP DAILY, (Reported) Methocarbamol (Methocarbamol), 1.5 TAB PO Q8HR PRN, (Reported) Midodrine HCl (Midodrine Hydrochloride), 1 TAB PO TID, (Reported) Oxybutynin Chloride (Ditropan Xl), 15 MG PO DAILY, (Reported) Pantoprazole Sodium Sesquihydr (Pantoprazole Sodium), 1 TAB PO QAM, (Reported) Potassium Chloride (Potassium Chloride ER), 1 TAB PO BID, (Reported) Ranolazine (Ranexa), 500 MG PO BID Silver Sulfadiazine (Silver Sulfadiazine), 1 APPLIC TOP DAILY, (Reported) Trazodone Hcl (Trazodone Hcl), 4 TAB PO HS, (Reported) Scheduled PRN Senna (Senna), 2-4 TAB PO QHSP PRN for FOR CONSTIPATION, (Reported) Miscellaneous Medications Nitroglycerin (Nitrostat), 1 TAB SL, (Reported) Discharge Statement: "Patient was advised to return to the ER or call 911 if any headaches, dizziness, shortness of breath, chest pain, abdominal pain, bleeding, fevers, or worsening of medical condition. Patient was counseled about treatment plan, medications, possible side effects, patientverbalized understanding. All questions were answered to the best of my ability. This discharge took greater then 30 minutes in planning, reviewing documentation, counseling the patient, and discussing with other team members." ASSESSMENT ASSESSMENT Assessment PNA HF SEPTIC SHOCK Visit Coding STANDARD RES Billing Provider: DANIEL CALLAHAN MD Date of Service if different f: Jan 23, 2025 Common Visit Codes: 07912-RRA/OBS DISCH DAY >30min PATIENCE RICHARDSON RESIDENT Jan 23, 2025 15:32
[2025-01-23] MEDS ORDERED: LEVO500T91 PO (15:34)
--- NOTE | 2025-01-29 10:57 | ECG ---
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
== END 2025-01-23 18:25 | disposition home or self-care (01) | DRG 871 ==
LOC: EDBD 11:37 → EDUNIT# 11:37 → ER 11:37 → OVERFLOW 14:11 → TELE-EAST 17:36 → DOU 01-16 18:07 → TELE-EAST 01-19 10:33 → TELE-CENTR 01-22 22:06
PROVIDERS: ADMIT Internal Medicine Geriatric Medicine; ATTEND Internal Medicine Geriatric Medicine
DX: A41.50 Gram-negative sepsis, unspecified (principal); I21.A1 Myocardial infarction type 2; I50.33 Acute on chronic diastolic (congestive) heart failure; J15.69 Pneumonia due to other Gram-negative bacteria; J15.9 Unspecified bacterial pneumonia; J96.20 Acute and chronic respiratory failure, unspecified whether with hypoxia or hypercapnia; N17.0 Acute kidney failure with tubular necrosis; R65.21 Severe sepsis with septic shock; I69.351 Hemiplegia and hemiparesis following cerebral infarction affecting right dominant side; I13.0 Hypertensive heart and chronic kidney disease with heart failure and stage 1 through stage 4 chronic kidney disease, or unspecified chronic kidney disease; J44.0 Chronic obstructive pulmonary disease with (acute) lower respiratory infection; D64.9 Anemia, unspecified; E66.01 Morbid (severe) obesity due to excess calories; F32.A Depression, unspecified; E89.0 Postprocedural hypothyroidism; E11.22 Type 2 diabetes mellitus with diabetic chronic kidney disease; N18.9 Chronic kidney disease, unspecified; J44.1 Chronic obstructive pulmonary disease with (acute) exacerbation; D68.69 Other thrombophilia; I16.0 Hypertensive urgency; Z20.822 Contact with and (suspected) exposure to COVID-19; I48.0 Paroxysmal atrial fibrillation; F41.9 Anxiety disorder, unspecified; K21.9 Gastro-esophageal reflux disease without esophagitis; E78.5 Hyperlipidemia, unspecified; I25.10 Atherosclerotic heart disease of native coronary artery without angina pectoris; I25.2 Old myocardial infarction; Z90.49 Acquired absence of other specified parts of digestive tract; Z95.0 Presence of cardiac pacemaker; Z98.61 Coronary angioplasty status; Z99.81 Dependence on supplemental oxygen; Z87.891 Personal history of nicotine dependence; Z88.6 Allergy status to analgesic agent; Z74.01 Bed confinement status; Z68.38 Body mass index [BMI] 38.0-38.9, adult; Z82.3 Family history of stroke; Z82.5 Family history of asthma and other chronic lower respiratory diseases; Z83.3 Family history of diabetes mellitus; Z81.8 Family history of other mental and behavioral disorders; Z82.49 Family history of ischemic heart disease and other diseases of the circulatory system
CPT/HCPCS: 36415; 36600; 71045; 71250; 76604; 76775; 80048; 80053; 80061; 80202; 80307; 81001; 82140; 82306; 82570; 82607; 82805; 82962; 83036; 83605; 83735; 83880; 83970; 84100; 84156; 84300; 84443; 84484; 85025; 85610; 85730; 87040; 87081; 87426; 87804; 93005; 94640; 97110; 97163; 99291; 99292; G0378; J0692; J1815; J2405

== ENCOUNTER 2025-01-24 01:27 | Inpatient (IN) | payer BC, OTHER ==
[~2025-01-24] VITALS: Ht 172.7 cm; Wt 126.0 kg
[~2025-01-24 01:27] MED LIST changes: -AMLO1TAB23 PO; +LEVO500T91 PO
--- NOTE | 2025-01-24 01:49 | ED.PDOC ---
HPI Comments 70-year-old male who came to ER via EMS for chest pains. Patient seen here multiple times for chest pains. Was just discharged yesterday, diagnosed with, 1. Septic shock secondary to pneumonia Gram-positive versus Gram-negative, 2. Acute on chronic respiratory failure, 3. COPD exacerbation, 4. Community acquired pneumonia Gram+/Gram-, 5. KOLE hemodynamically mediated (VMN), 6. Acute on chronic diastolic congestive heart failure (HFpEF, LVEF 60%), 7. NSTEMI likely type II due to above, 8. Ruled out acute coronary syndrome, 9. Chest pain likely pleuritic due to pneumonia, 10. CAD with history of [place] s/p PCI with 5 stents, 11. Paroxysmal atrial fibrillation (chads Vasc 7) - secondary hypercoagulability state, 12. 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 History of thyroid disease: Resolved , 14. 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 Bed-bound, 16. Hypertension , 17. Dyslipidemia, 18. Diabetes As patient got home, shortly afterwards started experiencing chest pains or shortness of breathing again. Was saturating 96% at 2 L/min on scene. Worsening of symptoms brought the patient is a go back to the emergency room Chief Complaint: Chest pain Time Seen by MD: 01:46 Primary Care Provider: marie William Notes: Lever Tender Notes Allergies: Coded Allergies: Acetaminophen (Verified Allergy, Unknown, 12/13/24) Home Meds Active Scripts Levofloxacin Hemihydrate (LEVAQUIN 500 MG) 500 Mg Tab, 1 TAB PO DAILY for 5 Days, #5 TAB Prov:PATIENCE BLACK RESIDENT 01/23/25 Empagliflozin (Jardiance) 10 Mg Tab, 10 MG PO DAILY, #30 TAB Prov:WESLEY ROMEO MD 01/13/25 Furosemide (Lasix) 40 Mg Tab, 40 MG PO BID for 30 Days, #60 TAB Prov:BK LAGUERRE MD 05/29/24 Ranolazine (Ranexa) 500 Mg Tab, 500 MG PO BID for 30 Days, #60 TAB Prov:JUSTIN DUARTE MD 10/22/18 Reported Medications Nitroglycerin (Nitrostat) 0.4 Mg Sub, 1 TAB SL for 30 Days, #50 01/12/25 Senna (Senna) 8.6 Mg Tab, 2-4 TAB PO QHSP PRN for FOR CONSTIPATION for 22 Days, #90 01/12/25 Methocarbamol (Methocarbamol) 500 Mg Tab, 1.5 TAB PO Q8HR PRN for 13 Days, #40 01/12/25 Budesonide-Formoterol Fumarate (Budesonide/Formoterol Fum 160-4.5 Mcg/Act) 1 Aer Aer, 2 PUFF IN BID for 30 Days, #10.2 02/26/24 Midodrine HCl (Midodrine Hydrochloride) 5 Mg Tab, 1 TAB PO TID for 30 Days, #90 02/26/24 Potassium Chloride (Potassium Chloride ER) 10 Meq Tab, 1 TAB PO BID for 30 Days, #60 02/26/24 Aspirin (Aspirin Regular Strength) 325 Mg Tab, 1 TAB PO DAILY for 30 Days, #30 02/26/24 Lactulose (Lactulose) 10 Gm/15 Ml Rachna, 15 ML PO BID PRN for 15 Days, #473 02/26/24 Atorvastatin Calcium (Lipitor) 80 Mg Tab, 1 TAB PO DAILY for 30 Days, #30 02/26/24 Levetiracetam (Levetiracetam) 750 Mg Tab, 1 TAB PO BID for 30 Days, #60 02/26/24 Lidocaine (Lidocaine Topical Pain Pa) 4 % Pad, 1 PATCH TOP DAILY 06/28/23 Gabapentin (Gabapentin) 800 Mg Tab, 1 TAB PO BID for 30 Days, #60 06/28/23 Ipratropium-Albuterol (COMBIVENT RESPIMAT) Respimat Aer, 1 PUFF INH QID 05/14/23 Dapagliflozin Propanediol (Farxiga) 10 Mg Tab, 1 TAB PO DAILY for 30 Days, #30 05/14/23 Beclomethasone Dipropionate (Qvar Redihaler) 80 Mcg/Act Aer, 1 PUFF INH BID for 30 Days, #10.6 02/27/23 Silver Sulfadiazine (Silver Sulfadiazine) 1 % Cre, 1 APPLIC TOP DAILY for 30 Days, #50 02/27/23 Oxybutynin Chloride (Ditropan Xl) 5 Mg Tab, 15 MG PO DAILY for 30 Days, #30 02/27/23 Trazodone Hcl (Trazodone Hcl) 100 Mg Tab, 4 TAB PO HS for 30 Days, #120 02/27/23 Clopidogrel Bisulfate (CLOPIDOGREL) 75 Mg Tab, 1 TAB PO DAILY for 30 Days, #30 02/07/23 Pantoprazole Sodium Sesquihydr (Pantoprazole Sodium) 40 Mg Tab, 1 TAB PO QAM 02/07/23 Bupropion Hcl (Bupropion Hcl) 75 Mg Tab, 2 TAB PO DAILY for 30 Days, #60 11/10/17 Discontinued Reported Medications Amlodipine Besylate (Amlodipine Besylate) 10 Mg Tab, 1 TAB PO DAILY for 90 Days, #90 01/12/25 Information Source: Patient Mode of Arrival: EMS Past Medical History PAST MEDICAL HISTORY: Angina, Anxiety, Asthma, CAD, CHF, CKF, COPD, CVA, Depression, DM, GERD, High Lipids, HTN, Liver, HI, TIA, UTI'S Surgical History: Appendectomy, Cholecystectomy, PTCA, Thyroidectomy Family History Family History: Reviewed,noncontributory to illness, Unknown Social History Smoker: Non-Smoker Alcohol: Denies ETOH Use Drugs: Denies Drug Use Lives In: Home Constitutional: reports: weakness; denies: chills, diaphoresis, fatigue, fever, malaise, sweats, others EENTM: denies: blurred vision, double vision, ear bleeding, ear discharge, ear drainage, ear pain, ear ringing, eye pain, eye redness, hearing loss, mouth pain, mouth swelling, nasal discharge, nose bleeding, nose congestion, nose pain, photophobia, tearing, throat pain, throat swelling, voice changes, others Respiratory: reports: SOB at rest, shortness of breath, SOB with excertion; denies: cough, hemoptysis, orthopnea, stridor, wheezing, others Cardiovascular: reports: chest pain; denies: dizzy spells, diaphoresis, Dyspnea on exertion, edema, irregular heart beat, left arm pain, lightheadedness, palpitations, PND, syncope, others Gastrointestinal: denies: abdomen distended, abdominal pain, blood streaked bowels, constipated, diarrhea, dysphagia, difficulty swallowing, hematemesis, melena, nausea, poor appetite, poor fluid intake, rectal bleeding, rectal pain, vomiting, others Genitourinary: denies: burning, dysuria, flank pain, frequency, hematuria, incontinence, penile discharge, penile sore, pain, testicle pain, testicle swelling, urgency, others Neurological: denies: dizziness, fainting, headache, left sided numbness, left sided weakness, numbness, paresthesia, pre-existing deficit, right sided numbness, right sided weakness, seizure, speech problems, tingling, tremors, weakness, others Musculoskeletal: denies: back pain, gout, joint pain, joint swelling, muscle pain, muscle stiffness, neck pain, others Integumetry: denies: bruises, change in color, change in hair/nails, dryness, laceration, lesions, lumps, rash, wounds, others Allergic/Immunocompromised: denies: Difficulty Healing, Frequent Infections, Hives, Itching, others Hematologic/Lymphatic: denies: anemia, blood clots, easy bleeding, easy bruising, swollen glands, others Endocrine: denies: excessive hunger, excessive sweating, excessive thirst, excessive urination, flushing, intolerance to cold, intolerance to heat, unexp lained weight gain, unexplained weight loss, others Psychiatric: denies: anxiety, bipolar disorder, depression, hopeless, panic disorder, schizophrenia, sleepless, suicidal, others Physical Exam General Appearance: Moderate Distress, Normal, Obese, Other (Bed-bound, morbidly obese) HEENT: Normal ENT Inspection, Pharynx Normal, TMs Normal Neck: Full Range of Motion, Non-Tender, Normal, Normal Inspection Respiratory: Chest Non-Tender, No Accessory Muscle Use, No Respiratory Distress, Other (Coarse breath sounds) Cardiovascular: No Edema, No JVD, No Murmur, No Gallop, Normal Peripheral Pulses, Regular Rate/Rhythm Breast Exam: Deferred Gastrointestinal: No Organomegaly, Non Tender, No Pulsatile Mass, Normal Bowel Sounds, Soft Genitalia: Deferred Pelvic: Deferred Rectal: Deferred Extremities: No calf tenderness, Normal capillary refill, Normal inspection, Normal range of motion, Pedal edema (+2 bipedal edema) Musculoskeletal : Apperance: Normal Neurologic: Alert, programming manager II-XII nml as Tested, No Motor Deficits, Normal Affect, Normal Mood, No Sensory Deficits Cerebellar Function: Normal Reflexes: Normal Skin: Dry, Normal Color, Warm Lymphatic: No Adenopathy Was a procedure done? Was a procedure done?: No CP Differential Dx Differential Diagnosis: A-fib, Angina, Anxiety / Panic Attack, Heart Failure Differential Diagnosis: CHF Differential Diagnosis: Angina, Chest Wall Pain, Costochondritis, Esophageal reflux/spasm, Gastritis, Myocardial Infarction X-Ray, Labs, Meds, VS Vital Signs Date Time Temp Pulse Resp B/P (MAP) Pulse Ox O2 Delivery O2 Flow Rate FiO2 01/24/25 05:26 113 01/24/25 03:25 98.8 116 12 127/90 (102) 99 98.8 01/24/25 01:57 98.3 106 32 180/100 96 98.3 Lab Test 01/24/25 04:55 01/24/25 03:41 Range/Units Troponin I High Sensitivity 87 *H 79 *H </=54 ng/L White Blood Count 13.8 H 4.4-10.8 10^3/uL Red Blood Count 4.54 4.5-5.90 10^6/uL Hemoglobin 11.9 L 13.5-17.5 g/dL Hematocrit 36.6 #L 41.0-53.0 % Mean Corpuscular Volume 80.7 80.0-100.0 fL Mean Corpuscular Hemoglobin 26.3 L 28.0-32.0 pg Mean Corpuscular Hemoglobin Concent 32.6 32.0-36.0 g/dL Red Cell Distribution Width 18.9 H 11.8-14.3 % Platelet Count 307 140-450 10^3/uL Mean Platelet Volume 9.4 6.9-10.8 fL Neutrophils (%) (Auto) 80.0 37.0-80.0 % Lymphocytes (%) (Auto) 10.5 10.0-50.0 % Monocytes (%) (Auto) 9.1 0.0-12.0 % Eosinophils (%) (Auto) 0.2 0.0-7.0 % Basophils (%) (Auto) 0.2 0.0-2.0 % Neutrophils # (Auto) 11.0 H 1.6-8.6 10 ^3/uL Lymphocytes # (Auto) 1.4 0.4-5.4 10 ^3/uL Monocytes # (Auto) 1.3 0-1.3 10 ^3/uL Eosinophils # (Auto) 0 0-0.8 10 ^3/uL Basophils # (Auto) 0 0-0.2 10 ^3/uL Nucleated Red Blood Cells 0.2 % Sodium Level 140 136-145 mmol/L Potassium Level 4.1 3.5-5.1 mmol/L Chloride Level 106 98-107 mmol/L Carbon Dioxide Level 26 20-31 mmol/L Anion Gap 8 5-15 Blood Urea Nitrogen 57 H 9-23 mg/dL Creatinine 1.52 H 0.700-1.30 mg/dL Glomerular Filtration Rate Calc 49 >90 mL/min BUN/Creatinine Ratio 37.5 H 10.0-20.0 Serum Glucose 160 H 74-106 mg/dL Calcium Level 9.3 8.7-10.4 mg/dL Time of 1ST Reevaluation: 01:47 Reevaluation 1ST: Unchanged Patient Education/Counseling: Diagnosis, Treatment Family Education/Counseling: No Family Present Comments Patient has chronic chest pain and was recently admitted for the same however his troponin is elevated compared to baseline and is upward tending, without EKG changes. Patient will be admitted for further cardiac workup for NSTEMI SEPSIS Sepsis Screen Physician Orders Chest Xray 1 View (01/24/25 01:41) Electrocardigram (01/24/25 01:41) Troponin-I Hs (01/24/25 04:41) Electrocardigram (01/24/25 02:41) Electrocardigram (01/24/25 04:41) Aspirin Chewable Tablet (01/24/25 05:45) Vital Signs Date Time Temp Pulse Resp B/P (MAP) Pulse Ox O2 Delivery O2 Flow Rate FiO2 01/24/25 05:26 113 01/24/25 03:25 98.8 116 12 127/90 (102) 99 98.8 01/24/25 01:57 98.3 106 32 180/100 96 98.3 Laboratory Tests Test 01/24/25 03:41 White Blood Count 13.8 10^3/uL (4.4-10.8) H Departure 1 Departure Time of Disposition: 05:45 Impression: Primary Impression: Elevated troponin Additional Impressions: Renal failure Chest pain NSTEMI (non-ST elevated myocardial infarction) Disposition: 09 ADMITTED INPATIENT Admit to: Tele Condition: Serious Discharged With: Self Critical Care Note Critical Care Time?: Yes (35 min-critical care time only) Stability Stability form required: No Heart Score Heart Score: Heart Score Response (Comments) Value History Moderate Suspicious 1 EKG Repolarization Disturb 1 Age >65 2 Risk Factors >3 or Hx ASHD 2 Troponin Normal limit 0 Total 6 I personally scribed [facility]BS [facility] on 01/24/25 at 01:49. Electronically submitted by Mateo Fernando ([facility]). DAO GIBBS MD Jan 24, 2025 01:49
[2025-01-24 04:21] LABS: Nucleated Red Blood Cells % 0.2 %
[2025-01-24 04:24] LABS: Hematocrit 36.6 % (41.0-53.0); Hemoglobin 11.9 g/dL (13.5-17.5); Mean Corpuscular Hemoglobin 26.3 pg (28.0-32.0); Mean Corpuscular Volume 80.7 fL (80.0-100.0)
[2025-01-24 04:35] LABS: Chloride 106 mmol/L (98-107); Potassium 4.1 mmol/L (3.5-5.1); Sodium 140 mmol/L (136-145)
[2025-01-24 04:36] LABS: Anion Gap 8 (5-15); Calcium 9.3 mg/dL (8.7-10.4); Carbon Dioxide 26 mmol/L (20-31)
[2025-01-24 04:41] LABS: BUN/Creatinine Ratio 37.5 (10.0-20.0)
[2025-01-24 04:55] LABS: Blood Urea Nitrogen 57 mg/dL (9-23); Glucose 160 mg/dL (74-106)
--- NOTE | 2025-01-24 05:42 | DVH ---
CHEST RADIOGRAPH Indication: sob Technique: Single frontal view of the chest was obtained COMPARISON: CT CHEST WITHOUT CONTRAST on DOS: 01/22/25, XY CHEST XRAY 1 VIEW on DOS: 01/18/25, XY CHEST PORTABLE on DOS: 01/17/25, XY CHEST XRAY 1 VIEW on DOS: 01/17/25, XY CHEST PORTABLE on DOS: 01/15/25 FINDINGS: Lines and Tubes: None Lungs: Moderate diffuse increased prominence of the pulmonary vasculature and bilateral pleural effusions, [id number]. No pneumothorax. Cardiomediastinal contours: Cardiomegaly. Bones: Unremarkable IMPRESSION: 1. Cardiomegaly with moderate pulmonary edema and bilateral pleural effusions, [id number].
--- NOTE | 2025-01-24 06:26 | DVHHP2 ---
History of Present Illness Reason for Visit: Acute chest pain History of Present Illness The patient is a 70-year-old male with multiple past medical history including CHF, COPD, anxiety, DM, hypertension, [place], depression, and CVA who presented to [facility] with complaint of chest pain. Patient seen here multiple times for chest pains. He was discharged yesterday with multiple medical diagnosed including septic shock secondary to pneumonia Gram-positive versus Gram-negative, acute on chronic respiratory failure, COPD with acute exacerbation, and community acquired pneumonia Gram+/Gram. Patient reports that shortly after discharge home, he started experiencing substernal chest pain rating 7/10 numeric scale, pressure sensation, associated with shortness of breaths, getting worse that prompted this visit. Patient was seen and evaluated in the ED, laboratory data shows WBC 13.8, hemoglobin 11.9, hematocrit 36.6, platelets 307, sodium 140, potassium 4.1, BUN 57, creatinine 1.52, GFR 49, glucose 160, calcium 9.3, troponin 79, BNP 83.74, blood pressure 127/90, heart rate 1 one two, temperature 98.8 F, O2 saturation 99% on oxygen. Chest x-ray revealing cardiomegaly with moderate pulmonary edema and bilateral pleural effusion, left greater than right. Patient was started on IV Lasix, please see medication orders section in the computer. On my assessment, patient denied chest pain at this moment, no headache, dizziness, diaphoresis, currently on oxygen, no abdominal pain, diarrhea, nausea, vomiting, fever, no chills. Patient was admitted for further evaluation and medical management. Past Medical History Angina, Anxiety, Asthma, CAD, CHF, CKF, COPD, CVA, Depression, DM, GERD, High L ipids, HTN, Liver, [place], TIA, UTI'S Past Surgical History Appendectomy, Cholecystectomy, PTCA, Thyroidectomy Family History Reviewed, noncontributory to the management of this case. Past Social History The patient lives at home, denies smoking, alcohol or illicit drugs abuse. Review of Systems Constitutional: Yes: Weakness; No: Fever, Chills, Sweats, Malaise, Other Eyes: No: Pain, Vision change, Conjunctivae inflammation, Eyelid inflammation, Other, Redness ENT: No: Ear pain, Ear discharge, Nose pain, Nose discharge, Nose congestion, Mouth pain, Mouth swelling, Throat pain, Throat swelling, Other Respiratory: Shortness of breath, SOB with excertion, Other (SOB at rest); No: Cough, Dry, Wheezing, Hemoptysis, Pleuritic Pain, Sputum, Wheezing Cardiovascular: Chest Pain, Other (Elevated troponin); No: Palpitations, Orthopnea, Paroxysmal Noc. Dyspnea, Edema, Lt Headedness Gastrointestinal: No: Nausea, Vomiting, Abdominal Pain, Diarrhea, Constipation, Melena, Hematochezia, Other Genitourinary: No Dysuria, No Frequency, No Incontinence, No Hematuria, No Retention, No Other Musculoskeletal: No: other, neck pain, shoulder pain, arm pain, back pain, hand pain, leg pain, foot pain Skin: No: Rash, Lesions, Jaundice, Bruising, Other Neurological: No: Weakness, Numbness, Incoordination, Change in speech, Confusion, Seizures, Other Allergies: Coded Allergies: Acetaminophen (Verified Allergy, Unknown, 12/13/24) Exam Vital Signs Vital Signs Date Time Temp Pulse Resp B/P (MAP) Pulse Ox O2 Delivery O2 Flow Rate FiO2 01/24/25 05:26 113 01/24/25 03:25 98.8 12 127/90 (102) 99 98.8 General Appearance: Alert, Oriented X3, Cooperative, No acute distress HEENT: Atraumatic, PERRLA, EOMI, Mucous membr. moist/pink Respiratory: Normal air movement, Other (Diminished breath sounds) Cardiovascular: Regular rate, Normal S1, Normal S2, No murmurs Abdominal: Normal bowel sounds, Soft, No tenderness, No hepatospenomegaly, No masses Extremities: No clubbing, No cyanosis, No edema, Normal pulses, No tenderness/swelling Skin: No rashes, No significant lesion Neuro: Normal speech, Normal tone, Sensation intact, Cranial nerves 3-12 NL, Reflexes 2+, Other (Generalized weakness) Psych/Mental Status: Mental status NL, Mood NL Labs/Xrays Labs Test 01/24/25 04:55 01/24/25 03:41 Range/Units Troponin I High Sensitivity 87 *H </=54 ng/L White Blood Count 13.8 H 4.4-10.8 10^3/uL Red Blood Count 4.54 4.5-5.90 10^6/uL Hemoglobin 11.9 L 13.5-17.5 g/dL Hematocrit 36.6 #L 41.0-53.0 % Mean Corpuscular Volume 80.7 80.0-100.0 fL Mean Corpuscular Hemoglobin 26.3 L 28.0-32.0 pg Mean Corpuscular Hemoglobin Concent 32.6 32.0-36.0 g/dL Red Cell Distribution Width 18.9 H 11.8-14.3 % Platelet Count 307 140-450 10^3/uL Mean Platelet Volume 9.4 6.9-10.8 fL Neutrophils (%) (Auto) 80.0 37.0-80.0 % Lymphocytes (%) (Auto) 10.5 10.0-50.0 % Monocytes (%) (Auto) 9.1 0.0-12.0 % Eosinophils (%) (Auto) 0.2 0.0-7.0 % Basophils (%) (Auto) 0.2 0.0-2.0 % Neutrophils # (Auto) 11.0 H 1.6-8.6 10 ^3/uL Lymphocytes # (Auto) 1.4 0.4-5.4 10 ^3/uL Monocytes # (Auto) 1.3 0-1.3 10 ^3/uL Eosinophils # (Auto) 0 0-0.8 10 ^3/uL Basophils # (Auto) 0 0-0.2 10 ^3/uL Nucleated Red Blood Cells 0.2 % Sodium Level 140 136-145 mmol/L Potassium Level 4.1 3.5-5.1 mmol/L Chloride Level 106 98-107 mmol/L Carbon Dioxide Level 26 20-31 mmol/L Anion Gap 8 5-15 Blood Urea Nitrogen 57 H 9-23 mg/dL Creatinine 1.52 H 0.700-1.30 mg/dL Glomerular Filtration Rate Calc 49 >90 mL/min BUN/Creatinine Ratio 37.5 H 10.0-20.0 Serum Glucose 160 H 74-106 mg/dL Calcium Level 9.3 8.7-10.4 mg/dL PATIENT: NAVID SANCHEZ ACCT: [id number] UNIT: [id number] : 1955 LOC: ER ROOM / BED: / AGE / SEX: 70 / M ADM STATUS: REG ER SERVICE 0141 ORDERING PHYSICIAN: DAO GIBBS MD PROCEDURE(s): CXR1 - CHEST XRAY 1 VIEW REASON: sob ORDER NUMBER(s): [id number], ACCESSION NUMBER(s): [id number] CHEST RADIOGRAPH Indication: sob Technique: Single frontal view of the chest was obtained COMPARISON: CT CHEST WITHOUT CONTRAST on DOS: 01/22/25, XY CHEST XRAY 1 VIEW on DOS: 01/18/25, XY CHEST PORTABLE on DOS: 01/17/25, XY CHEST XRAY 1 VIEW on DOS: 01/17/25, XY CHEST PORTABLE on DOS: 01/15/25 FINDINGS: Lines and Tubes: None Lungs: Moderate diffuse increased prominence of the pulmonary vasculature and bilateral pleural effusions, [id number]. No pneumothorax. Cardiomediastinal contours: Cardiomegaly. Bones: Unremarkable IMPRESSION: 1. Cardiomegaly with moderate pulmonary edema and bilateral pleural effusions, [id number]-right. SEPSIS Sepsis Screen Date sepsis recognized/suspect: Jan 24, 2025 Time Sepsis recognized/suspect: 015 Recent Procedure: No On Antibiotic Therapy: No Respiratory Rate >20: No Heart Rate >90: No Temp<36 C (96.8 F) or >38.3 C: No SBP <90 or MAP <65 mmHG: No New Acute Mental Status Change: No Is the patient on CPAP, BIPAP,: No Physician Orders Chest Xray 1 View (01/24/25 01:41) Electrocardigram (01/24/25 01:41) Troponin-I Hs (01/24/25 04:41) Electrocardigram (01/24/25 02:41) Electrocardigram (01/24/25 04:41) B-Type Natriuretic Peptide (01/24/25 06:18) Aspirin Chewable Tablet (01/24/25 10:00) Atorvastatin (Lipitor) (01/24/25 22:00) Ibuprofen Tablet (Motrin Tablet) (01/24/25 06:30) Gabapentin Capsule (Neurontin Capsule) (01/24/25 14:00) * Cardiology Consult (01/24/25 06:18) Troponin-I Hs (01/24/25 07:18) Troponin-I Hs (01/24/25 09:18) Consistent Carb(Ccho)Diabetes (01/24/25 Breakfast) Clopidogrel Bisulfate (Plavix) (01/24/25 10:00) Glucose Blood (Accu-Chek Comfort Curve T (01/24/25 07:00) Bedtime Insulin Scale (01/24/25 22:00) Moderate Insulin Ss (01/24/25 07:00) Dextrose 50% Syringe (01/24/25 06:30) Allergies (01/24/25 06:18) Code Status (01/24/25 06:18) Sodium Chloride Lock (Saline Lock Ns) (01/24/25 14:00) Oxygen Per Hour (01/24/25 06:18) Ondansetron Hcl (Zofran) (01/24/25 06:30) Docusate Sodium Capsule (Colace Capsule) (01/24/25 06:30) Fall Risk Precautions In Place QSHIFT (01/24/25 06:18) Complete Blood Count (01/25/25 04:00) Comprehensive Metabolic Panel (01/25/25 04:00) Condition: Serious (01/24/25 06:18) Maintain Bed Rest (01/24/25 06:18) Sequential Compression Device (01/24/25 ) Nitroglycerin Sublingual (Ntrostat Subli (01/24/25 06:30) Morphine Sulfate Injection (01/24/25 06:30) Stat Ekg For Chest Pain (01/24/25 06:18) Notify Md Of Changes From Base (01/24/25 06:18) Cobbler Apprentice For 24 Hours (01/24/25 06:18) Emergency Dysrhythmia Protocol (01/24/25 06:18) Rhythm Strips Once Every Shift (01/24/25 06:18) Oxygen By Nasal Cannula (01/24/25 06:18) Vital Signs Date Time Temp Pulse Resp B/P (MAP) Pulse Ox O2 Delivery O2 Flow Rate FiO2 01/24/25 05:26 113 01/24/25 03:25 98.8 116 12 127/90 (102) 99 98.8 01/24/25 01:57 98.3 106 32 180/100 96 98.3 Laboratory Tests Test 01/24/25 03:41 White Blood Count 13.8 10^3/uL (4.4-10.8) H Assessment/Plan Assessment/Plan Acute chest pain Elevated troponin Pulmonary edema Bilateral pleural effusion Leukocytosis, unspecified Acute on chronic renal failure NSTEMI (non-ST elevated myocardial infarction) Diabetes mellitus with hyperglycemia Generalized weakness Plan 1. Admit to telemetry unit 2. Breathing treatment 3. Pain control management 4. IV antibiotic management 5. Management of fluids and electrolytes 6. Consultation for Cardiology/hospitalist 7. Diagnostic test chest x-ray 8. DVT prophylaxis-on aspirin 9. Repeat labs CBC, CMP in a.m. 10. Home medication reviewed and reconciled 11. Continue with current medical management 12. Treatment plan discussed with patient and RN. Patient verbalized understanding. Plan discussed with: Patient, Other (RN) My Orders Orders - LELO NIXON DNP Procedure Category Date Status Time B-Type Natriuretic LAB 01/24/25 Verified Peptide 06:18 Aspirin Chewable PHA 01/24/25 Verified Tablet 10:00 Atorvastatin (Lipitor) PHA 01/24/25 Verified 22:00 Ibuprofen Tablet PHA 01/24/25 Verified (Motrin Tablet) 06:30 Gabapentin Capsule PHA 01/24/25 Verified (Neurontin Capsule) 14:00 * Cardiology Consult CONS 01/24/25 Verified 06:18 Troponin-I Hs LAB 01/24/25 Verified 07:18 Troponin-I Hs LAB 01/24/25 Verified 09:18 Consistent DIET 01/24/25 Verified Carb(Ccho)Diabetes Breakfast Clopidogrel Bisulfate PHA 01/24/25 Verified (Plavix) 10:00 Glucose Blood PHA 01/24/25 Verified (Accu-Chek Comfort 07:00 Bedtime Insulin Scale PHA 01/24/25 Verified 22:00 Moderate Insulin Ss PHA 01/24/25 Verified 07:00 Dextrose 50% Syringe PHA 01/24/25 Verified 06:30 Allergies ELLIE 01/24/25 Verified 06:18 Code Status CODE 01/24/25 Verified 06:18 Sodium Chloride Lock PHA 01/24/25 Verified (Saline Lock Ns) 14:00 Oxygen Per Hour RT 01/24/25 Verified 06:18 Ondansetron Hcl PHA 01/24/25 Verified (Zofran) 06:30 Docusate Sodium PHA 01/24/25 Verified Capsule (Colace 06:30 Fall Risk Precautions ELLIE 01/24/[address] 06:18 Complete Blood Count LAB 01/25/25 Verified 04:00 Comprehensive LAB 01/25/25 Verified Metabolic Panel 04:00 Condition: Serious ELLIE 01/24/25 Verified 06:18 Maintain Bed Rest ELLIE 01/24/25 Verified 06:18 Sequential ELLIE 01/24/25 Verified Compression Device Nitroglycerin [facility] 01/24/25 Verified Sublingual (Ntrostat 06:30 Morphine Sulfate [facility] 01/24/25 Verified Injection 06:30 Stat Ekg For Chest [facility] 01/24/25 Verified Pain 06:18 Notify Md Of Changes [facility] 01/24/25 Verified From Base 06:18 Cobbler Apprentice For [facility] 01/24/25 Verified 24 Hours 06:18 Emergency Dysrhythmia [facility] 01/24/25 Verified Protocol 06:18 Rhythm Strips Once [facility] 01/24/25 Verified Every Shift 06:18 Oxygen By Nasal 01/24/25 Verified Cannula 06:18 Problem List: (1) Acute chest pain (2) Elevated troponin (3) Pulmonary edema (4) Bilateral pleural effusion (5) Leukocytosis, unspecified (6) Acute on chronic renal failure (7) NSTEMI (non-ST elevated myocardial infarction) (8) Diabetes mellitus with hyperglycemia (9) Generalized weakness Date of Service: Jan 24, 2025 Billing Provider: LELO NIXON DNP Common Visit Codes: [id number] INP/OBS CARE (HIGH) LELO NIXON DNP Jan 24, 2025 06:26
[2025-01-24] MEDS ORDERED: NITROGLYCERIN 0.4 MG SL TAB SL PRN (06:30)
[2025-01-24] MEDS ORDERED: DEXTROSE (50%) 50ML SYRG IV PRN (06:30)
[2025-01-24] MEDS ORDERED: ONDANSETRON HCL 4 MG/2 ML VIAL IV PRN (06:30)
[2025-01-24] MEDS: InsuLIN REG 1unit/0.01ml Soln (100units/ml) SC SCH ×2 (07:17→21:49)
[2025-01-24] MEDS: ACCU-CHEK COMFORT CURVE STRIP VI SCH (07:19)
[2025-01-24 10:08] VITALS: PULSE 100; RESP 18; O2SAT 98
[2025-01-24] MEDS: ATORVASTATIN 20 MG TAB PO SCH (10:58)
[2025-01-24] MEDS: CLOPIDOGREL BISULFATE 75 MG TAB PO SCH (10:59)
[2025-01-24] MEDS: GABAPENTIN 300 MG CAP PO SCH (14:00)
[2025-01-24] MEDS: SODIUM CHLOR 0.9% PF (SALINE LOCK) 10ML VIAL/SYR IV SCH (14:03)
[2025-01-24] MEDS: FUROSEMIDE 40 MG/4 ML VIAL IV ONE (19:15)
[2025-01-24 20:12] VITALS: PULSE 140; RESP 18; O2SAT 96; O2SAT 99
[2025-01-24] MEDS: METOPROLOL TARTRATE 1MG/1ML-5ML VIAL IV ONE (20:30)
[2025-01-24] MEDS: levETIRAcetam 500 mg/100ml 100 ML IV SCH (21:49)
[2025-01-24] MEDS ORDERED: ATORVASTATIN 20 MG TAB PO SCH (22:00)
[2025-01-24] MEDS: MORPHINE SULFATE 4 MG/ML SYR/VIAL IV PRN (22:17)
[2025-01-25] MEDS: DIGOXIN (250MCG/ML) 2 ML AMPULE IV ONE (02:14)
[2025-01-25 02:55] VITALS: BP 154/73; PULSE 110; PULSE 138; RESP 16; TEMP 98.1; O2SAT 96
[2025-01-25 03:06] LABS: Hematocrit 34.2 % (41.0-53.0); Hemoglobin 10.8 g/dL (13.5-17.5); Mean Corpuscular Hemoglobin 25.8 pg (28.0-32.0); Mean Corpuscular Volume 82.0 fL (80.0-100.0); Nucleated Red Blood Cells % 0.1 %
[2025-01-25 03:17] LABS: Alanine Aminotransferase 25 U/L (7-40); Alkaline Phosphatase 52 U/L (46-116); Anion Gap 10 (5-15); BUN/Creatinine Ratio 31.2 (10.0-20.0); Carbon Dioxide 24 mmol/L (20-31); Glucose 102 mg/dL (74-106); Potassium 3.8 mmol/L (3.5-5.1); Sodium 142 mmol/L (136-145); Total Protein 6.3 g/dL (5.7-8.2)
[2025-01-25 03:18] LABS: Bilirubin, Total 0.3 mg/dL (0.2-1.0)
[2025-01-25 03:19] LABS: Albumin 2.8 g/dL (3.2-4.8); Blood Urea Nitrogen 43 mg/dL (9-23); Calcium 8.6 mg/dL (8.7-10.4); Chloride 108 mmol/L (98-107)
[2025-01-25 07:30] VITALS: PULSE 111; RESP 14; O2SAT 94
[2025-01-25] MEDS: CARVEDILOL 3.125 MG TAB PO SCH (10:08)
[2025-01-25] MEDS: FUROSEMIDE 40 MG/4 ML VIAL IV SCH (10:10)
--- NOTE | 2025-01-25 17:18 | DVHPN2 ---
Subjective Patient is here for chest pain with a mildly elevated troponin. Changes from previous H/P or p: No Changes Eyes: No Pain, No Vision change, No Conjunctivae inflammation, No Eyelid inflammation, No Other, No Redness ENT: No Ear pain, No Ear discharge, No Nose pain, No Nose discharge, No Nose congestion, No Mouth pain, No Mouth swelling, No Throat pain, No Throat swelling, No Other Cardiovascular: Chest Pain; No Palpitations, No Orthopnea, No Paroxysmal Noc. Dyspnea, No Edema, No Lt Headedness; Other (Elevated troponin) Respiratory: No Cough, No Dry; Shortness of breath, SOB with excertion; No Wheezing, No Hemoptysis, No Pleuritic Pain, No Sputum; Other (SOB at rest) Gastrointestinal: No Nausea, No Vomiting, No Abdominal Pain, No Diarrhea, No Constipation, No Melena, No Hematochezia, No Other Genitourinary: No Dysuria, No Frequency, No Incontinence, No Hematuria, No Retention, No Other Musculoskeletal: No other, No neck pain, No shoulder pain, No arm pain, No back pain, No hand pain, No leg pain, No foot pain Skin: No Rash, No Lesions, No Jaundice, No Bruising, No Other Objective Vitals Vital Signs Date Time Temp Pulse Resp B/P (MAP) Pulse Ox O2 Delivery O2 Flow Rate FiO2 01/25/25 17:00 71 23 135/61 (85) 98 01/25/25 07:30 98.5 98.5 01/25/25 07:30 Nasal Cannula* 2 28 Exam HEENT pupils are reactive Neck is supple CV is S1-S2 regular rate and rhythm Diminished breath sounds bases GI positive bowel sound Extremity no edema [employer] no motor Medications Current Medications Medications Dose Ordered Sig/Yvette Route Start Time Stop Time Status Last Admin Dose Admin Aspirin 81 mg DAILY PO 01/25/25 10:00 01/25/25 10:08 81 MG Ibuprofen 600 mg Q6HP PRN PO 01/24/25 06:30 Gabapentin 300 mg TID PO 01/24/25 14:00 01/25/25 14:26 300 MG Clopidogrel Bisulfate 75 mg DAILY PO 01/24/25 10:00 01/25/25 10:09 75 MG Diagnostic Test (Pha) 1 strip ACHS 01/24/25 07:00 01/25/25 11:48 1 STRIP Insulin Human Regular HS SC 01/24/25 22:00 Insulin Human Regular AC SC 01/24/25 07:00 01/24/25 17:58 2 UNITS Dextrose 50 ml UD PRN IV 01/24/25 06:30 Sodium Chloride 10 ml Q8HR IV 01/24/25 14:00 01/25/25 14:26 10 ML Ondansetron HCl 4 mg Q4HP PRN IV 01/24/25 06:30 Docusate Sodium 100 mg BIDPRN PRN PO 01/24/25 06:30 Nitroglycerin 0.4 mg Q5MINP PRN SL 01/24/25 06:30 Morphine Sulfate 2 mg Q30M PRN IV 01/24/25 06:30 01/25/25 16:53 2 MG Atorvastatin Calcium 40 mg HS PO 01/24/25 10:15 01/24/25 21:49 40 MG Ceftriaxone Sodium 50 ml @ 100 mls/hr DAILY@09 IV 01/25/25 09:00 01/25/25 09:18 100 MLS/HR Furosemide 40 mg DAILY IV 01/25/25 10:00 01/25/25 10:10 40 MG Levetiracetam 100 ml @ 400 mls/hr BID IV 01/24/25 22:00 01/25/25 10:09 400 MLS/HR Carvedilol 3.125 mg Q12HR PO 01/25/25 10:00 01/25/25 10:08 3.125 MG Laboratory Results Laboratory Tests 01/25/25 02:40 Chemistry Test 01/25/25 02:40 Albumin 2.8 g/dL (3.2-4.8) L Calcium Level 8.6 mg/dL (8.7-10.4) L Total Protein 6.3 g/dL (5.7-8.2) LFT Test 01/25/25 02:40 Alanine Aminotransferase (ALT) 25 U/L (7-40) Alkaline Phosphatase 52 U/L (46-116) Aspartate Amino Transferase (AST) 33 U/L (13-40) Total Bilirubin 0.3 mg/dL (0.2-1.0) Assessment/Plan Assessment/Plan 70-year-old male with a known history of CAD status post PCI was recently hospitalized for pneumonia septic shock and COPD exacerbation was sent home then come back with the chest pain and shortness of breaths found to have 1. Chest pain with shortness of breaths with the elevated troponin rule out acute [place] 2. Suspected NSTEMI type 2 3. COPD 4. Coronary artery disease status post PCI 5. Status post pacemaker placement 6. History of CVA 7. Hypertension 8. Dyslipidemia 9. Diabetes mellitus type 2 -continue pain meds as needed, discharge plan. customer technical services manager consulted for social issue as patient's keeps coming back. Plan discussed with: Patient Date of Service: Jan 25, 2025 Billing Provider: WESLEY ROMEO MD Common Visit Codes: [id number] INP/OBS CARE(HIGH) WESLEY ROMEO MD Jan 25, 2025 17:18
--- NOTE | 2025-01-25 17:43 | ECG ---
[facility] Test Date: 2025-01-24 Test Time: 05:26:37 Pat Name: NAVID SANCHEZ Department: [facility] ED Patient ID: [id number] Room: 0234T Gender: M Classified Advertising Supervisor: SILVESTRE : 1955 Requested By: DAO GIBBS Order Number: [id number] Reading MD: Som Vásquez Measurements Intervals [place] Rate: 113 P: 45 MO: 156 QRS: -62 QRSD: 112 T: 83 QT: 383 QTc: 526 Interpretive Statements Sinus tachycardia Multiform ventricular premature complexes Probable left atrial enlargement Incomplete left bundle branch block Baseline wander in lead(s) II,III,aVR,aVL,aVF,V1,V2,V3,V5,V6 Electronically Signed On 01-29-2025 19:04:45 PST by Som Vásquez Please click the below link to view image of tracing.
--- NOTE | 2025-01-25 17:43 | ECG ---
[facility] Test Date: 2025-01-24 Test Time: 09:49:55 Pat Name: NAVID SANCHEZ Department: [facility] ED Patient ID: [id number] Room: 0234T Gender: M Mlt: SILVESTRE : 1955 Requested By: DAO GIBBS Order Number: [id number] Reading MD: Som Vásquez Measurements Intervals [place] Rate: 130 P: 0 KS: 0 QRS: -74 QRSD: 104 T: 91 QT: 337 QTc: 496 Interpretive Statements Atrial flutter with 2:1 AV block Left anterior fascicular block Abnormal R-wave progression, late transition LVH with secondary repolarization abnormality Borderline prolonged QT interval Baseline wander in lead(s) V5 Electronically Signed On 01-29-2025 19:05:43 PST by Som Vásquez Please click the below link to view image of tracing.
--- NOTE | 2025-01-25 17:44 | ECG ---
[facility] Test Date: 2025-01-24 Test Time: 20:12:25 Pat Name: NAVID SANCHEZ Department: [facility] ED Patient ID: [id number] Room: 0234T Gender: M Animal Behaviorist: BETZY : 1955 Requested By: DAO GIBBS Order Number: [id number] Reading MD: Som Vásquez Measurements Intervals [place] Rate: 131 P: 0 CT: 0 QRS: -68 QRSD: 102 T: 96 QT: 325 QTc: 480 Interpretive Statements Atrial fibrillation Left anterior fascicular block Abnormal R-wave progression, late transition LVH with secondary repolarization abnormality Borderline prolonged QT interval Artifact in lead(s) II Electronically Signed On 01-29-2025 19:11:45 PST by Som Vásquez Please click the below link to view image of tracing.
[2025-01-25 21:30] VITALS: BP 119/52; PULSE 62; RESP 18; TEMP 98.8; O2SAT 100
[2025-01-26] VITALS (9 sets, daily range): BP systolic 97–137; BP diastolic 45–79; PULSE 58–87; RESP 17–20; TEMP 98.2–98.6; O2SAT 96–100
[2025-01-26] MEDS: IBUPROFEN 600 MG TAB PO PRN (00:23)
[2025-01-26] MEDS: DOCUSATE SOD 100 MG CAP PO PRN (02:21)
--- NOTE | 2025-01-26 15:50 | DVHPN2 ---
Subjective no chest pain today Reviewed: H&P Changes from previous H/P or p: No Changes Eyes: No Pain, No Vision change, No Conjunctivae inflammation, No Eyelid inflammation, No Other, No Redness ENT: No Ear pain, No Ear discharge, No Nose pain, No Nose discharge, No Nose congestion, No Mouth pain, No Mouth swelling, No Throat pain, No Throat swelling, No Other Cardiovascular: Chest Pain; No Palpitations, No Orthopnea, No Paroxysmal Noc. Dyspnea, No Edema, No Lt Headedness; Other (Elevated troponin) Respiratory: No Cough, No Dry; Shortness of breath, SOB with excertion; No Wheezing, No Hemoptysis, No Pleuritic Pain, No Sputum; Other (SOB at rest) Gastrointestinal: No Nausea, No Vomiting, No Abdominal Pain, No Diarrhea, No Constipation, No Melena, No Hematochezia, No Other Genitourinary: No Dysuria, No Frequency, No Incontinence, No Hematuria, No Retention, No Other Musculoskeletal: No other, No neck pain, No shoulder pain, No arm pain, No back pain, No hand pain, No leg pain, No foot pain Skin: No Rash, No Lesions, No Jaundice, No Bruising, No Other Objective Vitals Vital Signs Date Time Temp Pulse Resp B/P (MAP) Pulse Ox O2 Delivery O2 Flow Rate FiO2 01/26/25 13:00 98.3 78 17 97/45 (62) 100 98.3 01/26/25 00:00 Nasal Cannula* 3 32 Intake/Output Intake and Output 01/26/25 05:00 Intake Total 350 ml Output Total 150 ml Balance 200 ml Intake Oral 200 ml IV Total 150 ml Output Urine Total 150 ml General Appearance: Alert, Oriented X3 HEENT: Atraumatic Lungs: Clear to auscultation Cardiovascular: Regular rate, Normal S1, Normal S2 Abdomen: Normal bowel sounds Medications Current Medications Medications Dose Ordered Sig/Yvette Route Start Time Stop Time Status Last Admin Dose Admin Aspirin 81 mg DAILY PO 01/25/25 10:00 01/26/25 09:43 81 MG Ibuprofen 600 mg Q6HP PRN PO 01/24/25 06:30 01/26/25 00:23 600 MG Gabapentin 300 mg TID PO 01/24/25 14:00 01/26/25 13:31 300 MG Clopidogrel Bisulfate 75 mg DAILY PO 01/24/25 10:00 01/26/25 09:43 75 MG Diagnostic Test (Pha) 1 strip ACHS 01/24/25 07:00 01/26/25 11:30 1 STRIP Insulin Human Regular HS SC 01/24/25 22:00 Insulin Human Regular AC SC 01/24/25 07:00 01/26/25 13:34 2 UNITS Dextrose 50 ml UD PRN IV 01/24/25 06:30 Sodium Chloride 10 ml Q8HR IV 01/24/25 14:00 01/26/25 06:46 10 ML Ondansetron HCl 4 mg Q4HP PRN IV 01/24/25 06:30 Docusate Sodium 100 mg BIDPRN PRN PO 01/24/25 06:30 01/26/25 02:21 100 MG Nitroglycerin 0.4 mg Q5MINP PRN SL 01/24/25 06:30 Morphine Sulfate 2 mg Q30M PRN IV 01/24/25 06:30 01/25/25 16:53 2 MG Atorvastatin Calcium 40 mg HS PO 01/24/25 10:15 01/26/25 00:05 40 MG Ceftriaxone Sodium 50 ml @ 100 mls/hr DAILY@09 IV 01/25/25 09:00 01/26/25 09:37 100 MLS/HR Furosemide 40 mg DAILY IV 01/25/25 10:00 01/26/25 09:44 40 MG Levetiracetam 100 ml @ 400 mls/hr BID IV 01/24/25 22:00 01/26/25 11:03 400 MLS/HR Carvedilol 3.125 mg Q12HR PO 01/25/25 10:00 01/26/25 09:44 3.125 MG Laboratory Results Laboratory Tests 01/25/25 02:40 Microbiology Microbiology Date/Time Source Procedure Growth Status 01/24/25 19:56 Blood Blood Culture - Preliminary NO GROWTH AFTER 24 HOURS OF INCUBATION. Resulted Assessment/Plan Assessment/Plan 70-year-old male with a known history of CAD status post PCI was recently hospitalized for pneumonia septic shock and COPD exacerbation was sent home then come back with the chest pain and shortness of breaths found to have 1. Chest pain with shortness of breaths with the elevated troponin rule out acute [place] 2. Suspected NSTEMI type 2 3. COPD 4. Coronary artery disease status post PCI 5. Status post pacemaker placement 6. History of CVA 7. Hypertension 8. Dyslipidemia 9. Diabetes mellitus type 2 -continue pain meds as needed, discharge plan. family services worker consulted for social issue as patient's keeps coming back. Plan discussed with: Patient Date of Service: Jan 26, 2025 Billing Provider: JESENIA ROSS MD Common Visit Codes: [id number] INP/OBS CARE(HIGH) JESENIA ROSS MD Jan 26, 2025 15:50
--- NOTE | 2025-01-26 18:20 | DVHINCON2 ---
Date of service: Jan 26, 2025 Referring Physician Jimena Reason for Consultation Elevated troponin History of Present Illness This is a 70 year old male with a PMH of Angina, Anxiety, Asthma, CAD, CHF, CKF, COPD, CVA, Depression, DM, GERD, High Lipids, HTN, Liver, CA, TIA who was brought in by EMS due to complaints of chest pain. 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 Troponin 79 > 87 > 71 > 163. Chest x-ray shows cardiomegaly with moderate pulmonary edema and bilateral pleural effusions, [id number]. Initial EKG showed tachycardia at 113, second EKG showed atrial flutter with 2:1 AV block at 130, third EKG shows atrial fibrillation at 131. Patient was admitted to the hospital. I am asked to consult on this patient. Family History: Alcoholism G8 MOTHER, Onset:Unknown Cancer G8 SISTER (uterine cancer) Cardiovascular disease G8 SISTER Cerebrovascular accident (CVA) G8 SISTER Chronic obstructive pulmonary disease G8 SISTER Depression G8 SISTER Diabetes mellitus G8 SISTER G8 SISTER Family history: Cardiovascular disease Family history: Depression (situation) Family history: Hypertension Family history: Hypertension Glaucoma MATERNAL GPA Sepsis Stroke Stroke Allergies: Coded Allergies: Acetaminophen (Verified Allergy, Unknown, 12/13/24) Home Meds Active Scripts Levofloxacin Hemihydrate (LEVAQUIN 500 MG) 500 Mg Tab, 1 TAB PO DAILY for 5 Days, #5 TAB Prov:PATIENCE BLACK RESIDENT 01/23/25 Empagliflozin (Jardiance) 10 Mg Tab, 10 MG PO DAILY, #30 TAB Prov:WESLEY ROMEO MD 01/13/25 Furosemide (Lasix) 40 Mg Tab, 40 MG PO BID for 30 Days, #60 TAB Prov:BK LAGUERRE MD 05/29/24 Ranolazine (Ranexa) 500 Mg Tab, 500 MG PO BID for 30 Days, #60 TAB Prov:JUSTIN DUARTE MD 10/22/18 Reported Medications Nitroglycerin (Nitrostat) 0.4 Mg Sub, 1 TAB SL for 30 Days, #50 01/12/25 Senna (Senna) 8.6 Mg Tab, 2-4 TAB PO QHSP PRN for FOR CONSTIPATION for 22 Days, #90 01/12/25 Methocarbamol (Methocarbamol) 500 Mg Tab, 1.5 TAB PO Q8HR PRN for 13 Days, #40 01/12/25 Budesonide-Formoterol Fumarate (Budesonide/Formoterol Fum 160-4.5 Mcg/Act) 1 Aer Aer, 2 PUFF IN BID for 30 Days, #10.2 02/26/24 Midodrine HCl (Midodrine Hydrochloride) 5 Mg Tab, 1 TAB PO TID for 30 Days, #90 02/26/24 Potassium Chloride (Potassium Chloride ER) 10 Meq Tab, 1 TAB PO BID for 30 Days, #60 02/26/24 Aspirin (Aspirin Regular Strength) 325 Mg Tab, 1 TAB PO DAILY for 30 Days, #30 02/26/24 Lactulose (Lactulose) 10 Gm/15 Ml Rachna, 15 ML PO BID PRN for 15 Days, #473 02/26/24 Atorvastatin Calcium (Lipitor) 80 Mg Tab, 1 TAB PO DAILY for 30 Days, #30 02/26/24 Levetiracetam (Levetiracetam) 750 Mg Tab, 1 TAB PO BID for 30 Days, #60 02/26/24 Lidocaine (Lidocaine Topical Pain Pa) 4 % Pad, 1 PATCH TOP DAILY 06/28/23 Gabapentin (Gabapentin) 800 Mg Tab, 1 TAB PO BID for 30 Days, #60 06/28/23 Ipratropium-Albuterol (COMBIVENT RESPIMAT) Respimat Aer, 1 PUFF INH QID 05/14/23 Dapagliflozin Propanediol (Farxiga) 10 Mg Tab, 1 TAB PO DAILY for 30 Days, #30 05/14/23 Beclomethasone Dipropionate (Qvar Redihaler) 80 Mcg/Act Aer, 1 PUFF INH BID for 30 Days, #10.6 02/27/23 Silver Sulfadiazine (Silver Sulfadiazine) 1 % Cre, 1 APPLIC TOP DAILY for 30 Days, #50 02/27/23 Oxybutynin Chloride (Ditropan Xl) 5 Mg Tab, 15 MG PO DAILY for 30 Days, #30 02/27/23 Trazodone Hcl (Trazodone Hcl) 100 Mg Tab, 4 TAB PO HS for 30 Days, #120 02/27/23 Clopidogrel Bisulfate (CLOPIDOGREL) 75 Mg Tab, 1 TAB PO DAILY for 30 Days, #30 02/07/23 Pantoprazole Sodium Sesquihydr (Pantoprazole Sodium) 40 Mg Tab, 1 TAB PO QAM 02/07/23 Bupropion Hcl (Bupropion Hcl) 75 Mg Tab, 2 TAB PO DAILY for 30 Days, #60 11/10/17 Discontinued Reported Medications Amlodipine Besylate (Amlodipine Besylate) 10 Mg Tab, 1 TAB PO DAILY for 90 Days, #90 01/12/25 Review of Systems Constitutional: Yes: Weakness; No: Fever, Chills, Sweats, Malaise, Other Eyes: No: Pain, Vision change, Conjunctivae inflammation, Eyelid inflammation, Other, Redness ENT: No: Ear pain, Ear discharge, Nose pain, Nose discharge, Nose congestion, Mouth pain, Mouth swelling, Throat pain, Throat swelling, Other Respiratory: Shortness of breath, SOB with excertion, Other (SOB at rest); No: Cough, Dry, Wheezing, Hemoptysis, Pleuritic Pain, Sputum, Wheezing Cardiovascular: Chest Pain, Other (Elevated troponin); No: Palpitations, Orthopnea, Paroxysmal Noc. Dyspnea, Edema, Lt Headedness Gastrointestinal: No: Nausea, Vomiting, Abdominal Pain, Diarrhea, Constipation, Melena, Hematochezia, Other Genitourinary: No Dysuria, No Frequency, No Incontinence, No Hematuria, No Retention, No Other Musculoskeletal: No: other, neck pain, shoulder pain, arm pain, back pain, hand pain, leg pain, foot pain Skin: No: Rash, Lesions, Jaundice, Bruising, Other Neurological: No: Weakness, Numbness, Incoordination, Change in speech, Confusion, Seizures, Other Vital Signs Vital Signs Date Time Temp Pulse Resp B/P (MAP) Pulse Ox O2 Delivery O2 Flow Rate FiO2 01/26/25 17:00 98.3 64 20 137/78 (97) 100 98.3 01/26/25 00:00 Nasal Cannula* 3 32 Physical Exam GENERAL: Alert and oriented x 3. No acute distress. EYES: PERRL, EOMI. Anicteric. HENT: Moist mucous membranes. LUNGS: Clear to auscultation bilaterally. CARDIOVASCULAR: Regular rate and rhythm. ABDOMEN: Soft, non-tender and non-distended. EXTREMITIES: No edema. NEUROLOGIC: No focal neurological deficits. SKIN: Warm, dry. Labs/Diagnostic Data Labs Test 01/26/25 12:48 01/26/25 04:07 01/25/25 02:40 01/24/25 06:55 Range/Units POC Glucose 151 H 70-106 mg/dl Troponin I High Sensitivity 163 *H </=54 ng/L White Blood Count 14.2 H 4.4-10.8 10^3/uL Red Blood Count 4.17 L 4.5-5.90 10^6/uL Hemoglobin 10.8 L 13.5-17.5 g/dL Hematocrit 34.2 L 41.0-53.0 % Mean Corpuscular Volume 82.0 80.0-100.0 fL Mean Corpuscular Hemoglobin 25.8 L 28.0-32.0 pg Mean Corpuscular Hemoglobin Concent 31.5 L 32.0-36.0 g/dL Red Cell Distribution Width 19.1 H 11.8-14.3 % Platelet Count 252 140-450 10^3/uL Mean Platelet Volume 9.7 6.9-10.8 fL Neutrophils (%) (Auto) 75.7 37.0-80.0 % Lymphocytes (%) (Auto) 13.4 10.0-50.0 % Monocytes (%) (Auto) 10.4 0.0-12.0 % Eosinophils (%) (Auto) 0.3 0.0-7.0 % Basophils (%) (Auto) 0.2 0.0-2.0 % Neutrophils # (Auto) 10.8 H 1.6-8.6 10 ^3/uL Lymphocytes # (Auto) 1.9 0.4-5.4 10 ^3/uL Monocytes # (Auto) 1.5 H 0-1.3 10 ^3/uL Eosinophils # (Auto) 0 0-0.8 10 ^3/uL Basophils # (Auto) 0 0-0.2 10 ^3/uL Nucleated Red Blood Cells 0.1 % Sodium Level 142 136-145 mmol/L Potassium Level 3.8 3.5-5.1 mmol/L Chloride Level 108 H 98-107 mmol/L Carbon Dioxide Level 24 20-31 mmol/L Anion Gap 10 5-15 Blood Urea Nitrogen 43 #H 9-23 mg/dL Creatinine 1.38 H 0.700-1.30 mg/dL Glomerular Filtration Rate Calc 55 >90 mL/min BUN/Creatinine Ratio 31.2 H 10.0-20.0 Serum Glucose 102 74-106 mg/dL Calcium Level 8.6 L 8.7-10.4 mg/dL Total Bilirubin 0.3 0.2-1.0 mg/dL Aspartate Amino Transferase (AST) 33 13-40 U/L Alanine Aminotransferase (ALT) 25 7-40 U/L Alkaline Phosphatase 52 46-116 U/L Total Protein 6.3 5.7-8.2 g/dL Albumin 2.8 L 3.2-4.8 g/dL Magnesium Level 2.4 1.6-2.6 mg/dL Test 01/24/25 03:41 Range/Units B-Type Natriuretic Peptide 83.74 0-100 pg/mL Microbiology Date/Time Source Procedure Growth Status 01/24/25 19:56 Blood Blood Culture - Preliminary NO GROWTH AFTER 24 HOURS OF INCUBATION. Resulted Assessment Chest pain. Shortness of breath. Elevated troponin. COPD. Coronary artery disease status post PCI. Status post pacemaker placement. History of CVA. Hypertension. Dyslipidemia. Diabetes mellitus type 2. Plan/Recommendation I agree with your ongoing assessment and care of plan. Aspirin, Lipitor, Lipitor, Plavix. Coreg. Diuretics with Lasix. Morphine for pain management. Nitro SL. Additional plan as per the hospital course. A total of 45 minutes was spent reviewing the patient record, examining the patient, making a diagnostic and therapeutic plan, discussing this plan with medical personnel, following up on diagnostic studies and following the patient for clinical stability excluding any and all procedures. At least 50% of this time was spent in direct, [id number] contact. Plan discussed with: Patient ROHINI ABARCA MD Jan 26, 2025 18:20
[2025-01-27] VITALS (8 sets, daily range): BP systolic 102–128; BP diastolic 47–79; PULSE 53–89; RESP 16–19; TEMP 97.7–99.1; O2SAT 96–100
--- NOTE | 2025-01-27 11:48 | ECG ---
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
--- NOTE | 2025-01-27 12:18 | DVHPN2 ---
Subjective no chest pain today Reviewed: H&P Changes from previous H/P or p: No Changes Eyes: No Pain, No Vision change, No Conjunctivae inflammation, No Eyelid inflammation, No Other, No Redness ENT: No Ear pain, No Ear discharge, No Nose pain, No Nose discharge, No Nose congestion, No Mouth pain, No Mouth swelling, No Throat pain, No Throat swelling, No Other Cardiovascular: Chest Pain; No Palpitations, No Orthopnea, No Paroxysmal Noc. Dyspnea, No Edema, No Lt Headedness; Other (Elevated troponin) Respiratory: No Cough, No Dry; Shortness of breath, SOB with excertion; No Wheezing, No Hemoptysis, No Pleuritic Pain, No Sputum; Other (SOB at rest) Gastrointestinal: No Nausea, No Vomiting, No Abdominal Pain, No Diarrhea, No Constipation, No Melena, No Hematochezia, No Other Genitourinary: No Dysuria, No Frequency, No Incontinence, No Hematuria, No Retention, No Other Musculoskeletal: No other, No neck pain, No shoulder pain, No arm pain, No back pain, No hand pain, No leg pain, No foot pain Skin: No Rash, No Lesions, No Jaundice, No Bruising, No Other Objective Vitals Vital Signs Date Time Temp Pulse Resp B/P (MAP) Pulse Ox O2 Delivery O2 Flow Rate FiO2 01/27/25 09:12 98.0 69 16 105/64 (78) 100 98.0 01/27/25 08:00 Nasal Cannula* 3 32 Intake/Output Intake and Output 01/27/25 07:00 Intake Total 1350 ml Output Total 100 ml Balance 1250 ml Intake Oral 1200 ml IV Total 150 ml Output Urine Total 100 ml # Voids 4 # Bowel Movements 3 General Appearance: Alert, Oriented X3 HEENT: Atraumatic Lungs: Clear to auscultation Cardiovascular: Regular rate, Normal S1, Normal S2 Abdomen: Normal bowel sounds Medications Current Medications Medications Dose Ordered Sig/Yvette Route Start Time Stop Time Status Last Admin Dose Admin Aspirin 81 mg DAILY PO 01/25/25 10:00 01/27/25 09:03 81 MG Ibuprofen 600 mg Q6HP PRN PO 01/24/25 06:30 01/26/25 21:05 600 MG Gabapentin 300 mg TID PO 01/24/25 14:00 01/26/25 21:26 300 MG Clopidogrel Bisulfate 75 mg DAILY PO 01/24/25 10:00 01/27/25 09:03 75 MG Diagnostic Test (Pha) 1 strip ACHS 01/24/25 07:00 01/27/25 06:03 1 STRIP Insulin Human Regular HS SC 01/24/25 22:00 01/26/25 21:26 2 UNITS Insulin Human Regular AC SC 01/24/25 07:00 01/27/25 06:03 2 UNITS Dextrose 50 ml UD PRN IV 01/24/25 06:30 Sodium Chloride 10 ml Q8HR IV 01/24/25 14:00 01/27/25 06:03 10 ML Ondansetron HCl 4 mg Q4HP PRN IV 01/24/25 06:30 Docusate Sodium 100 mg BIDPRN PRN PO 01/24/25 06:30 01/26/25 02:21 100 MG Nitroglycerin 0.4 mg Q5MINP PRN SL 01/24/25 06:30 Morphine Sulfate 2 mg Q30M PRN IV 01/24/25 06:30 01/25/25 16:53 2 MG Atorvastatin Calcium 40 mg HS PO 01/24/25 10:15 01/26/25 21:26 40 MG Ceftriaxone Sodium 50 ml @ 100 mls/hr DAILY@09 IV 01/25/25 09:00 01/27/25 09:02 100 MLS/HR Furosemide 40 mg DAILY IV 01/25/25 10:00 01/26/25 09:44 40 MG Levetiracetam 100 ml @ 400 mls/hr BID IV 01/24/25 22:00 01/27/25 10:34 400 MLS/HR Carvedilol 3.125 mg Q12HR PO 01/25/25 10:00 01/27/25 09:03 3.125 MG Laboratory Results Laboratory Tests 01/25/25 02:40 Microbiology Microbiology Date/Time Source Procedure Growth Status 01/24/25 19:56 Blood Blood Culture - Preliminary NO GROWTH AFTER 48 HOURS OF INCUBATION. Resulted Assessment/Plan Assessment/Plan 70-year-old male with a known history of CAD status post PCI was recently hospitalized for pneumonia septic shock and COPD exacerbation was sent home then come back with the chest pain and shortness of breaths found to have 1. Chest pain with shortness of breaths with the elevated troponin rule out acute OH 2. Suspected NSTEMI type 2 3. COPD 4. Coronary artery disease status post PCI 5. Status post pacemaker placement 6. History of CVA 7. Hypertension 8. Dyslipidemia 9. Diabetes mellitus type 2 -continue pain meds as needed, discharge plan. policy services representative consulted for social issue as patient's keeps coming back. Plan discussed with: Patient Date of Service: Jan 27, 2025 Billing Provider: JESENIA ORSS MD Common Visit Codes: [id number] INP/OBS CARE(HIGH) JESENIA ROSS MD Jan 27, 2025 12:18
--- NOTE | 2025-01-27 21:32 | DVHPN2 ---
Progress Note - Dictate Date Seen: Jan 27, 2025 Medical Necessity Reason Pt with a Central, PICC or Fol: No Subjective Patient was seen and evaluated in follow up. Patient is complaining of chest discomfort. He is on 3 LPM NC. Patient is attempting to bite his IV line off. BS are in the 140's. Telemetry reviewed. vital signs Vital Sign Date Time Temp Pulse Resp B/P (MAP) Pulse Ox O2 Delivery O2 Flow Rate FiO2 01/27/25 10:03 56 103/63 01/27/25 09:12 98.0 16 100 98.0 01/27/25 08:00 Nasal Cannula* 3 32 Total Intake and Output 01/26/25 01/26/25 01/27/25 15:00 23:00 07:00 Intake Total 150 ml 950 ml 250 ml Output Total 100 ml Balance 150 ml 950 ml 150 ml medications Current Medications Medications Dose Ordered Sig/Yvette Route Start Time Stop Time Status Last Admin Dose Admin Aspirin 81 mg DAILY PO 01/25/25 10:00 01/27/25 09:03 81 MG Ibuprofen 600 mg Q6HP PRN PO 01/24/25 06:30 01/26/25 21:05 600 MG Gabapentin 300 mg TID PO 01/24/25 14:00 01/27/25 13:54 300 MG Clopidogrel Bisulfate 75 mg DAILY PO 01/24/25 10:00 01/27/25 09:03 75 MG Diagnostic Test (Pha) 1 strip ACHS 01/24/25 07:00 01/27/25 11:30 1 STRIP Insulin Human Regular HS SC 01/24/25 22:00 01/26/25 21:26 2 UNITS Insulin Human Regular AC SC 01/24/25 07:00 01/27/25 12:47 2 UNITS Dextrose 50 ml UD PRN IV 01/24/25 06:30 Sodium Chloride 10 ml Q8HR IV 01/24/25 14:00 01/27/25 13:29 10 ML Ondansetron HCl 4 mg Q4HP PRN IV 01/24/25 06:30 Docusate Sodium 100 mg BIDPRN PRN PO 01/24/25 06:30 01/26/25 02:21 100 MG Nitroglycerin 0.4 mg Q5MINP PRN SL 01/24/25 06:30 Morphine Sulfate 2 mg Q30M PRN IV 01/24/25 06:30 01/25/25 16:53 2 MG Atorvastatin Calcium 40 mg HS PO 01/24/25 10:15 01/26/25 21:26 40 MG Ceftriaxone Sodium 50 ml @ 100 mls/hr DAILY@09 IV 01/25/25 09:00 01/27/25 09:02 100 MLS/HR Furosemide 40 mg DAILY IV 01/25/25 10:00 01/26/25 09:44 40 MG Levetiracetam 100 ml @ 400 mls/hr BID IV 01/24/25 22:00 01/27/25 10:34 400 MLS/HR Carvedilol 3.125 mg Q12HR PO 01/25/25 10:00 01/27/25 09:03 3.125 MG objective GENERAL: Alert and oriented x 3. No acute distress. EYES: PERRL, EOMI. Anicteric. HENT: Moist mucous membranes. LUNGS: Clear to auscultation bilaterally. CARDIOVASCULAR: Regular rate and rhythm. ABDOMEN: Soft, non-tender and non-distended. EXTREMITIES: No edema. NEUROLOGIC: No focal neurological deficits. SKIN: Warm, dry. laboratory and microbiology Laboratory Tests 01/25/25 02:40 Test 01/25/25 02:40 Range/Units Serum Glucose 102 74-106 mg/dL Problem List Chest pain. Shortness of breath. Elevated troponin. COPD. Coronary artery disease status post PCI. Status post pacemaker placement. History of CVA. Hypertension. Dyslipidemia. Diabetes mellitus type 2. Assessment/Plan Continued all current supportive medical care. Aspirin, Lipitor, Lipitor, Plavix. Coreg. Diuretics with Lasix. Morphine for pain management. Nitro SL. Additional plan as per the hospital course. Plan discussed with: Patient ROHINI ABARCA MD Jan 27, 2025 14:04
[2025-01-28 05:00] VITALS: BP 129/55; PULSE 62; RESP 20; TEMP 97.6; O2SAT 98
[2025-01-28 08:00] VITALS: PULSE 62; RESP 17; O2SAT 98
[2025-01-28 09:18] VITALS: BP 127/73; PULSE 62; RESP 17; TEMP 97; O2SAT 98
[2025-01-28 13:00] VITALS: BP 113/68; PULSE 61; RESP 17; TEMP 97.4; O2SAT 95
[2025-01-28 14:57] VITALS: BP 122/64; PULSE 91; RESP 17; TEMP 98.6; O2SAT 96
[2025-01-28 17:00] VITALS: BP 127/83; PULSE 65; RESP 17; TEMP 97.6; O2SAT 94
--- NOTE | 2025-01-28 17:27 | DVHDS2 ---
Discharge Summary Date of Admission Jan 24, 2025 at 06:18 Date of Discharge: Jan 28, 2025 Labs/Diagnostic Data: Laboratory Results Test 01/28/25 05:59 01/26/25 04:07 01/25/25 02:40 01/24/25 06:55 POC Glucose 112 mg/dl (70-106) Troponin I High Sensitivity 163 ng/L (</=54) White Blood Count 14.2 10^3/uL (4.4-10.8) Red Blood Count 4.17 10^6/uL (4.5-5.90) Hemoglobin 10.8 g/dL (13.5-17.5) Hematocrit 34.2 % (41.0-53.0) Mean Corpuscular Volume 82.0 fL (80.0-100.0) Mean Corpuscular Hemoglobin 25.8 pg (28.0-32.0) Mean Corpuscular Hemoglobin Concent 31.5 g/dL (32.0-36.0) Red Cell Distribution Width 19.1 % (11.8-14.3) Platelet Count 252 10^3/uL (140-450) Mean Platelet Volume 9.7 fL (6.9-10.8) Neutrophils (%) (Auto) 75.7 % (37.0-80.0) Lymphocytes (%) (Auto) 13.4 % (10.0-50.0) Monocytes (%) (Auto) 10.4 % (0.0-12.0) Eosinophils (%) (Auto) 0.3 % (0.0-7.0) Basophils (%) (Auto) 0.2 % (0.0-2.0) Neutrophils # (Auto) 10.8 10 ^3/uL (1.6-8.6) Lymphocytes # (Auto) 1.9 10 ^3/uL (0.4-5.4) Monocytes # (Auto) 1.5 10 ^3/uL (0-1.3) Eosinophils # (Auto) 0 10 ^3/uL (0-0.8) Basophils # (Auto) 0 10 ^3/uL (0-0.2) Nucleated Red Blood Cells 0.1 % Sodium Level 142 mmol/L (136-145) Potassium Level 3.8 mmol/L (3.5-5.1) Chloride Level 108 mmol/L (98-107) Carbon Dioxide Level 24 mmol/L (20-31) Anion Gap 10 (5-15) Blood Urea Nitrogen 43 mg/dL (9-23) Creatinine 1.38 mg/dL (0.700-1.30) Glomerular Filtration Rate Calc 55 mL/min (>90) BUN/Creatinine Ratio 31.2 (10.0-20.0) Serum Glucose 102 mg/dL (74-106) Calcium Level 8.6 mg/dL (8.7-10.4) Total Bilirubin 0.3 mg/dL (0.2-1.0) Aspartate Amino Transferase (AST) 33 U/L (13-40) Alanine Aminotransferase (ALT) 25 U/L (7-40) Alkaline Phosphatase 52 U/L (46-116) Total Protein 6.3 g/dL (5.7-8.2) Albumin 2.8 g/dL (3.2-4.8) Magnesium Level 2.4 mg/dL (1.6-2.6) Test 01/24/25 03:41 B-Type Natriuretic Peptide 83.74 pg/mL (0-100) Other Laboratory Tests 01/25/25 02:40 Brief Hx & Hospital Course: 70-year-old male with multiple past medical history including CHF, COPD, anxiety, DM, hypertension, CA, depression, and CVA who presented to [facility] with complaint of chest pain. Patient seen here multiple times for chest pains. He was discharged yesterday with multiple medical diagnosed including septic shock secondary to pneumonia Gram-positive versus Gram- negative, acute on chronic respiratory failure, COPD with acute exacerbation, and community acquired pneumonia Gram+/Gram. Patient reports that shortly after discharge home, he started experiencing substernal chest pain rating 7/10 numeric scale, pressure sensation, associated with shortness of breaths, getting worse that prompted this visit. Patient was seen and evaluated in the ED, laboratory data shows WBC 13.8, hemoglobin 11.9, hematocrit 36.6, platelets 307, sodium 140, potassium 4.1, BUN 57, creatinine 1.52, GFR 49, glucose 160, calcium 9.3, troponin 79, BNP 83.74, blood pressure 127/90, heart rate 1 one two, temperature 98.8 F, O2 saturation 99% on oxygen. Chest x-ray revealing cardiomegaly with moderate pulmonary edema and bilateral pleural effusion, left greater than right. Patient was started on IV Lasix, please see medication orders section in the computer. On my assessment, patient denied chest pain at this moment, no headache, dizziness, diaphoresis, currently on oxygen, no abdominal pain, diarrhea, nausea, vomiting, fever, no chills. Patient was admitted for further evaluation and medical management. During hospital stay diuresed with IV lasix seen by cardiology He refused several medications during hospital stay Condition at Discharge: Good Final Diagnosis/Problems List Acute on chronic systolic HF exacerbation Acute hypoxic respiratory failure due to HF exacerbation Acute COPD exacerbation type 2 CA Discharge Disposition: Home Discharge Instruct/Medications Diet: Regular Activity: No Restrictions, As Tolerated Follow Up/Referral: PCP and cardiology in 7 days Medications: same home medications Scheduled Aspirin (Aspirin Regular Strength), 1 TAB PO DAILY, (Reported) Atorvastatin Calcium (Lipitor), 1 TAB PO DAILY, (Reported) Beclomethasone Dipropionate (Qvar Redihaler), 1 PUFF INH BID, (Reported) Budesonide-Formoterol Fumarate (Budesonide/Formoterol Fum 160-4.5 Mcg/Act), 2 PUFF IN BID, (Reported) Bupropion Hcl (Bupropion Hcl), 2 TAB PO DAILY, (Reported) Clopidogrel Bisulfate (Clopidogrel), 1 TAB PO DAILY, (Reported) Dapagliflozin Propanediol (Farxiga), 1 TAB PO DAILY, (Reported) Empagliflozin (Jardiance), 10 MG PO DAILY Furosemide (Lasix), 40 MG PO BID Gabapentin (Gabapentin), 1 TAB PO BID, (Reported) Ipratropium-Albuterol (Combivent Respimat), 1 PUFF INH QID, (Reported) Lactulose (Lactulose), 15 ML PO BID PRN, (Reported) Levetiracetam (Levetiracetam), 1 TAB PO BID, (Reported) Levofloxacin Hemihydrate (Levaquin 500 Mg), 1 TAB PO DAILY Lidocaine (Lidocaine Topical Pain Pa), 1 PATCH TOP DAILY, (Reported) Methocarbamol (Methocarbamol), 1.5 TAB PO Q8HR PRN, (Reported) Midodrine HCl (Midodrine Hydrochloride), 1 TAB PO TID, (Reported) Oxybutynin Chloride (Ditropan Xl), 15 MG PO DAILY, (Reported) Pantoprazole Sodium Sesquihydr (Pantoprazole Sodium), 1 TAB PO QAM, (Reported) Potassium Chloride (Potassium Chloride ER), 1 TAB PO BID, (Reported) Ranolazine (Ranexa), 500 MG PO BID Silver Sulfadiazine (Silver Sulfadiazine), 1 APPLIC TOP DAILY, (Reported) Trazodone Hcl (Trazodone Hcl), 4 TAB PO HS, (Reported) Scheduled PRN Senna (Senna), 2-4 TAB PO QHSP PRN for FOR CONSTIPATION, (Reported) Miscellaneous Medications Nitroglycerin (Nitrostat), 1 TAB SL, (Reported) Discontinued Medications Amlodipine Besylate (Amlodipine Besylate), 1 TAB PO DAILY, (Reported) Discharge Statement: "Patient was advised to return to the ER or call 911 if any headaches, dizziness, shortness of breath, chest pain, abdominal pain, bleeding, fevers, or worsening of medical condition. Patient was counseled about treatment plan, medications, possible side effects, patientverbalized understanding. All questions were answered to the best of my ability. This discharge took greater then 30 minutes in planning, reviewing documentation, counseling the patient, and discussing with other team members." ASSESSMENT ASSESSMENT Assessment Acute on chronic systolic HF exacerbation Date of Service: Jan 28, 2025 Billing Provider: JESENIA ROSS MD Common Visit Codes: [id number] DISCH DAY >30min JESENIA ROSS MD Jan 28, 2025 17:27
--- NOTE | 2025-01-28 23:29 | DVHPN2 ---
Progress Note - Dictate Date Seen: Jan 28, 2025 Medical Necessity Reason Pt with a Central, PICC or Fol: No Subjective Patient was seen and evaluated in follow up. Patient has no new complaints at this time. Patient denies any cardiac symptoms. Patient is cardiac stable for discharge. Telemetry reviewed. vital signs Vital Sign Date Time Temp Pulse Resp B/P (MAP) Pulse Ox O2 Delivery O2 Flow Rate FiO2 01/28/25 09:18 97.0 62 17 127/73 (91) 98 97.0 01/28/25 08:00 Nasal Cannula* 3 32 Total Intake and Output 01/27/25 01/27/25 01/28/25 15:00 23:00 07:00 Intake Total 50 ml 800 ml 1200 ml Output Total 400 ml Balance 50 ml 400 ml 1200 ml medications Current Medications Medications Dose Ordered Sig/Yvette Route Start Time Stop Time Status Last Admin Dose Admin Aspirin 81 mg DAILY PO 01/25/25 10:00 01/27/25 09:03 81 MG Ibuprofen 600 mg Q6HP PRN PO 01/24/25 06:30 01/27/25 22:33 600 MG Gabapentin 300 mg TID PO 01/24/25 14:00 01/27/25 22:30 300 MG Clopidogrel Bisulfate 75 mg DAILY PO 01/24/25 10:00 01/27/25 09:03 75 MG Diagnostic Test (Pha) 1 strip ACHS 01/24/25 07:00 01/28/25 06:22 1 STRIP Insulin Human Regular HS SC 01/24/25 22:00 01/27/25 22:00 2 UNITS Insulin Human Regular AC SC 01/24/25 07:00 01/27/25 18:33 2 UNITS Dextrose 50 ml UD PRN IV 01/24/25 06:30 Sodium Chloride 10 ml Q8HR IV 01/24/25 14:00 01/28/25 06:21 10 ML Ondansetron HCl 4 mg Q4HP PRN IV 01/24/25 06:30 Docusate Sodium 100 mg BIDPRN PRN PO 01/24/25 06:30 01/26/25 02:21 100 MG Nitroglycerin 0.4 mg Q5MINP PRN SL 01/24/25 06:30 Morphine Sulfate 2 mg Q30M PRN IV 01/24/25 06:30 01/25/25 16:53 2 MG Atorvastatin Calcium 40 mg HS PO 01/24/25 10:15 01/27/25 22:30 40 MG Ceftriaxone Sodium 50 ml @ 100 mls/hr DAILY@09 IV 01/25/25 09:00 01/27/25 09:02 100 MLS/HR Furosemide 40 mg DAILY IV 01/25/25 10:00 01/26/25 09:44 40 MG Levetiracetam 100 ml @ 400 mls/hr BID IV 01/24/25 22:00 01/27/25 22:29 400 MLS/HR Carvedilol 3.125 mg Q12HR PO 01/25/25 10:00 01/27/25 22:34 3.125 MG objective GENERAL: Alert and oriented x 3. No acute distress. EYES: PERRL, EOMI. Anicteric. HENT: Moist mucous membranes. LUNGS: Clear to auscultation bilaterally. CARDIOVASCULAR: Regular rate and rhythm. ABDOMEN: Soft, non-tender and non-distended. EXTREMITIES: No edema. NEUROLOGIC: No focal neurological deficits. SKIN: Warm, dry. laboratory and microbiology Laboratory Tests 01/25/25 02:40 Test 01/25/25 02:40 Range/Units Serum Glucose 102 74-106 mg/dL Problem List Chest pain. Shortness of breath. Elevated troponin. COPD. Coronary artery disease status post PCI. Status post pacemaker placement. History of CVA. Hypertension. Dyslipidemia. Diabetes mellitus type 2. Assessment/Plan Continued all current supportive medical care. Aspirin, Lipitor, Lipitor, Plavix. Coreg. Diuretics with Lasix. Motrin and Morphine for pain management. Nitro SL. Additional plan as per the hospital course. Dietary Evaluation Review Comments: CCHO-60 Cardiac Diet Consider Patricio BID for promote wound healing Expected Outcomes/Goals: controlled DM, improved nutrition related lab values Plan discussed with: Patient ROHINI ABARCA MD Jan 28, 2025 12:39
== END 2025-01-28 20:04 | disposition home or self-care (01) | DRG 280 ==
LOC: EDBD 01:27 → ER 01:27 → OVERFLOW 06:18 → TELE-EAST 01-25 21:30
PROVIDERS: ADMIT Hospitalist; ATTEND Hospitalist
DX: I13.0 Hypertensive heart and chronic kidney disease with heart failure and stage 1 through stage 4 chronic kidney disease, or unspecified chronic kidney disease (principal); I50.23 Acute on chronic systolic (congestive) heart failure; I21.A1 Myocardial infarction type 2; J96.01 Acute respiratory failure with hypoxia; J44.1 Chronic obstructive pulmonary disease with (acute) exacerbation; I48.92 Unspecified atrial flutter; E11.22 Type 2 diabetes mellitus with diabetic chronic kidney disease; D72.829 Elevated white blood cell count, unspecified; N17.9 Acute kidney failure, unspecified; N18.9 Chronic kidney disease, unspecified; J81.1 Chronic pulmonary edema; E11.65 Type 2 diabetes mellitus with hyperglycemia; E78.5 Hyperlipidemia, unspecified; I25.10 Atherosclerotic heart disease of native coronary artery without angina pectoris; I48.91 Unspecified atrial fibrillation; I44.1 Atrioventricular block, second degree; Z98.61 Coronary angioplasty status; Z87.01 Personal history of pneumonia (recurrent); Z95.0 Presence of cardiac pacemaker; Z88.6 Allergy status to analgesic agent; Z79.84 Long term (current) use of oral hypoglycemic drugs; Z90.49 Acquired absence of other specified parts of digestive tract; Z86.73 Personal history of transient ischemic attack (TIA), and cerebral infarction without residual deficits; Z83.3 Family history of diabetes mellitus; Z82.5 Family history of asthma and other chronic lower respiratory diseases; Z82.49 Family history of ischemic heart disease and other diseases of the circulatory system; Z82.3 Family history of stroke; Z81.8 Family history of other mental and behavioral disorders
CPT/HCPCS: 36415; 71045; 80048; 80053; 82962; 83735; 83880; 84484; 85025; 87040; 87081; 93005; G0378; J1815

== ENCOUNTER 2025-02-01 16:14 | Inpatient (IN) | payer BC, OTHER ==
[~2025-02-01] VITALS: Ht 172.7 cm; Wt 127.6 kg
[2025-02-01 16:47] LABS: Hematocrit 29.9 % (41.0-53.0); Hemoglobin 9.4 g/dL (13.5-17.5); Mean Corpuscular Hemoglobin 25.7 pg (28.0-32.0); Mean Corpuscular Volume 82.1 fL (80.0-100.0); Nucleated Red Blood Cells % 0.1 %
--- NOTE | 2025-02-01 16:52 | ECG ---
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
[2025-02-01 16:54] LABS: Anion Gap 7 (5-15); Carbon Dioxide 28 mmol/L (20-31); Potassium 4.2 mmol/L (3.5-5.1); Sodium 144 mmol/L (136-145)
[2025-02-01 17:00] LABS: BUN/Creatinine Ratio 18.9 (10.0-20.0); Blood Urea Nitrogen 17 mg/dL (9-23); Glucose 88 mg/dL (74-106); Lipase 31 U/L (12-53)
[2025-02-01 17:01] LABS: Calcium 8.3 mg/dL (8.7-10.4); Chloride 109 mmol/L (98-107)
--- NOTE | 2025-02-01 17:21 | DVH ---
CHEST RADIOGRAPH INDICATION: chest pain TECHNIQUE: Single frontal view of the chest was obtained COMPARISON: XY CHEST XRAY 1 VIEW on DOS: 01/24/25, XY CHEST XRAY 1 VIEW on DOS: 01/18/25, XY CHEST PORTABLE on DOS: 01/17/25 FINDINGS: Lines and Tubes: None Lungs: Perihilar opacities. Diffuse interstitial prominence. Opacification of right lateral lower lung zone. Left lower lung zone Opacification with obscuration of the left hemidiaphragm. No pneumothorax. Cardiomediastinal contours: [id number] cardiomegaly with moderate atherosclerotic calcification and uncoiling of the aorta. Leadless pacer is noted. Bones: No acute osseous abnormality. IMPRESSION: Cardiomegaly with findings suggestive of congestive heart failure and small bilateral pleural effusion ; slightly worsened on the Right. Underlying infectious process can not be excluded.
--- NOTE | 2025-02-01 17:43 | ED.PDOC ---
HPI Comments 70 y/o M, BIBA, with PMHx of IL, HTN, HLD, DM, and angina presents to the ED for CC of chest pain. Patient states, he has been experiencing left-sided chest pain that radiates to his left-arm onset, today (02/01/25). Patient reports, further symptoms of diarrhea. Patient denies shortness of breath, palpitations, nausea, vomiting, headache, or dizziness. No other symptoms or modifying factors are present at this time. 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, Medications, Allergies Allergies: Coded Allergies: Acetaminophen (Verified Allergy, Unknown, 12/13/24) Home Meds Active Scripts Levofloxacin Hemihydrate (LEVAQUIN 500 MG) 500 Mg Tab, 1 TAB PO DAILY for 5 Days, #5 TAB Prov:PATIENCE BLACK RESIDENT 01/23/25 Empagliflozin (Jardiance) 10 Mg Tab, 10 MG PO DAILY, #30 TAB Prov:WESLEY ROMEO MD 01/13/25 Furosemide (Lasix) 40 Mg Tab, 40 MG PO BID for 30 Days, #60 TAB Prov:BK LAGUERRE MD 05/29/24 Ranolazine (Ranexa) 500 Mg Tab, 500 MG PO BID for 30 Days, #60 TAB Prov:JUSTIN DUARTE MD 10/22/18 Reported Medications Nitroglycerin (Nitrostat) 0.4 Mg Sub, 1 TAB SL for 30 Days, #50 01/12/25 Senna (Senna) 8.6 Mg Tab, 2-4 TAB PO QHSP PRN for FOR CONSTIPATION for 22 Days, #90 01/12/25 Methocarbamol (Methocarbamol) 500 Mg Tab, 1.5 TAB PO Q8HR PRN for 13 Days, #40 01/12/25 Budesonide-Formoterol Fumarate (Budesonide/Formoterol Fum 160-4.5 Mcg/Act) 1 Aer Aer, 2 PUFF IN BID for 30 Days, #10.2 02/26/24 Midodrine HCl (Midodrine Hydrochloride) 5 Mg Tab, 1 TAB PO TID for 30 Days, #90 02/26/24 Potassium Chloride (Potassium Chloride ER) 10 Meq Tab, 1 TAB PO BID for 30 Days, #60 02/26/24 Aspirin (Aspirin Regular Strength) 325 Mg Tab, 1 TAB PO DAILY for 30 Days, #30 02/26/24 Lactulose (Lactulose) 10 Gm/15 Ml Rachna, 15 ML PO BID PRN for 15 Days, #473 02/26/24 Atorvastatin Calcium (Lipitor) 80 Mg Tab, 1 TAB PO DAILY for 30 Days, #30 02/26/24 Levetiracetam (Levetiracetam) 750 Mg Tab, 1 TAB PO BID for 30 Days, #60 02/26/24 Lidocaine (Lidocaine Topical Pain Pa) 4 % Pad, 1 PATCH TOP DAILY 06/28/23 Gabapentin (Gabapentin) 800 Mg Tab, 1 TAB PO BID for 30 Days, #60 06/28/23 Ipratropium-Albuterol (COMBIVENT RESPIMAT) Respimat Aer, 1 PUFF INH QID 05/14/23 Dapagliflozin Propanediol (Farxiga) 10 Mg Tab, 1 TAB PO DAILY for 30 Days, #30 05/14/23 Beclomethasone Dipropionate (Qvar Redihaler) 80 Mcg/Act Aer, 1 PUFF INH BID for 30 Days, #10.6 02/27/23 Silver Sulfadiazine (Silver Sulfadiazine) 1 % Cre, 1 APPLIC TOP DAILY for 30 Days, #50 02/27/23 Oxybutynin Chloride (Ditropan Xl) 5 Mg Tab, 15 MG PO DAILY for 30 Days, #30 02/27/23 Trazodone Hcl (Trazodone Hcl) 100 Mg Tab, 4 TAB PO HS for 30 Days, #120 02/27/23 Clopidogrel Bisulfate (CLOPIDOGREL) 75 Mg Tab, 1 TAB PO DAILY for 30 Days, #30 02/07/23 Pantoprazole Sodium Sesquihydr (Pantoprazole Sodium) 40 Mg Tab, 1 TAB PO QAM 02/07/23 Bupropion Hcl (Bupropion Hcl) 75 Mg Tab, 2 TAB PO DAILY for 30 Days, #60 11/10/17 Information Source: Patient Mode of Arrival: EMS Severity: Moderate Timing: Days Duration: Since onset Location: Chest (L) Radiation: Arm (L) Onset: At Rest Cardiac Risk Factors: Hyperlipidemia, HTN, Diabetes PE Risk Factors: Immobilization History of: Similar pain in past, IL Modifying Factors: Nothing Associated Signs and Symptoms: None Past Medical History PAST MEDICAL HISTORY: Angina, Anxiety, Asthma, CAD, CHF, CKF, COPD, CVA, Depression, DM, GERD, High Lipids, HTN, Liver, IL, TIA, UTI'S Surgical History: Appendectomy, Cholecystectomy, PTCA, Thyroidectomy Family History Family History: Reviewed,noncontributory to illness, Unknown Social History Smoker: Non-Smoker Alcohol: Denies ETOH Use Drugs: Denies Drug Use Lives In: Home Constitutional: denies: chills, diaphoresis, fatigue, fever, malaise, sweats, weakness, others EENTM: denies: blurred vision, double vision, ear bleeding, ear discharge, ear drainage, ear pain, ear ringing, eye pain, eye redness, hearing loss, mouth trixie n, mouth swelling, nasal discharge, nose bleeding, nose congestion, nose pain, photophobia, tearing, throat pain, throat swelling, voice changes, others Respiratory: denies: cough, hemoptysis, orthopnea, SOB at rest, shortness of breath, SOB with excertion, stridor, wheezing, others Cardiovascular: reports: chest pain; denies: dizzy spells, diaphoresis, Dyspnea on exertion, edema, irregular heart beat, left arm pain, lightheadedness, palpitations, PND, syncope, others Gastrointestinal: reports: diarrhea; denies: abdomen distended, abdominal pain, blood streaked bowels, constipated, dysphagia, difficulty swallowing, hematemesis, melena, nausea, poor appetite, poor fluid intake, rectal bleeding, rectal pain, vomiting, others Genitourinary: denies: burning, dysuria, flank pain, frequency, hematuria, incontinence, penile discharge, penile sore, pain, testicle pain, testicle swelling, urgency, others Neurological: denies: dizziness, fainting, headache, left sided numbness, left sided weakness, numbness, paresthesia, pre-existing deficit, right sided numbness, right sided weakness, seizure, speech problems, tingling, tremors, weakness, others Musculoskeletal: denies: back pain, gout, joint pain, joint swelling, muscle pa in, muscle stiffness, neck pain, others Integumetry: denies: bruises, change in color, change in hair/nails, dryness, laceration, lesions, lumps, rash, wounds, others Allergic/Immunocompromised: denies: Difficulty Healing, Frequent Infections, Hives, Itching, others Hematologic/Lymphatic: denies: anemia, blood clots, easy bleeding, easy bruising, swollen glands, others Endocrine: denies: excessive hunger, excessive sweating, excessive thirst, excessive urination, flushing, intolerance to cold, intolerance to heat, unexplained weight gain, unexplained weight loss, others Psychiatric: denies: anxiety, bipolar disorder, depression, hopeless, panic disorder, schizophrenia, sleepless, suicidal, others All Other Systems: Reviewed and Negative Physical Exam General Appearance: No Apparent Distress, Normal HEENT: Normal ENT Inspection, Pharynx Normal Neck: Full Range of Motion, Non-Tender, Normal, Normal Inspection Respiratory: Chest Non-Tender, Lungs Clear, No Accessory Muscle Use, No Respiratory Distress, Normal Breath Sounds Cardiovascular: No Edema, No Murmur, No Gallop, Normal Peripheral Pulses, Regular Rate/Rhythm Breast Exam: Deferred Gastrointestinal: No Organomegaly, Non Tender, No Pulsatile Mass, Normal Bowel Sounds, Soft Genitalia: Deferred Pelvic: Deferred Rectal: Deferred Extremities: No calf tenderness, Normal capillary refill, Normal inspection, Normal range of motion, Non-tender, No pedal edema Musculoskeletal : Apperance: Normal 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 Was a procedure done?: No CP Differential Dx Differential Diagnosis: IL, Pulmonary Embolus Differential Diagnosis: CHF Differential Diagnosis: Angina, Chest Wall Pain, Costochondritis X-Ray, Labs, Meds, VS Vital Signs Date Time Temp Pulse Resp B/P (MAP) Pulse Ox O2 Delivery O2 Flow Rate FiO2 02/01/25 18:30 98.4 60 33 129/61 (83) 98 98.4 02/01/25 17:49 60 02/01/25 17:34 98.4 65 33 129/58 (81) 98 98.4 02/01/25 16:50 77 02/01/25 16:21 98.6 71 20 146/68 98 98.6 Lab Test 02/01/25 17:35 02/01/25 16:30 Range/Units Troponin I High Sensitivity 63 *H 74 *H </=54 ng/L White Blood Count 8.5 4.4-10.8 10^3/uL Red Blood Count 3.65 L 4.5-5.90 10^6/uL Hemoglobin 9.4 L 13.5-17.5 g/dL Hematocrit 29.9 L 41.0-53.0 % Mean Corpuscular Volume 82.1 80.0-100.0 fL Mean Corpuscular Hemoglobin 25.7 L 28.0-32.0 pg Mean Corpuscular Hemoglobin Concent 31.3 L 32.0-36.0 g/dL Red Cell Distribution Width 19.9 H 11.8-14.3 % Platelet Count 173 140-450 10^3/uL Mean Platelet Volume 9.0 6.9-10.8 fL Neutrophils (%) (Auto) 75.0 37.0-80.0 % Lymphocytes (%) (Auto) 15.1 10.0-50.0 % Monocytes (%) (Auto) 8.6 0.0-12.0 % Eosinophils (%) (Auto) 0.9 0.0-7.0 % Basophils (%) (Auto) 0.4 0.0-2.0 % Neutrophils # (Auto) 6.4 1.6-8.6 10 ^3/uL Lymphocytes # (Auto) 1.3 0.4-5.4 10 ^3/uL Monocytes # (Auto) 0.7 0-1.3 10 ^3/uL Eosinophils # (Auto) 0.1 0-0.8 10 ^3/uL Basophils # (Auto) 0 0-0.2 10 ^3/uL Nucleated Red Blood Cells 0.1 % Sodium Level 144 136-145 mmol/L Potassium Level 4.2 3.5-5.1 mmol/L Chloride Level 109 H 98-107 mmol/L Carbon Dioxide Level 28 20-31 mmol/L Anion Gap 7 5-15 Blood Urea Nitrogen 17 9-23 mg/dL Creatinine 0.90 0.700-1.30 mg/dL Glomerular Filtration Rate Calc 91 >90 mL/min BUN/Creatinine Ratio 18.9 10.0-20.0 Serum Glucose 88 74-106 mg/dL Calcium Level 8.3 L 8.7-10.4 mg/dL Lipase 31 12-53 U/L [facility] [id number] [facility] [address] Ph: [phone] DIAGNOSTIC IMAGING Diagnostic Imaging Report : [id number] Signed PATIENT: NAVID SANCHEZ ACCT: [id number] UNIT: [id number] : 1955 LOC: ER ROOM / BED: / AGE / SEX: 70 / M ADM STATUS: REG ER SERVICE 1619 ORDERING PHYSICIAN: ESTHER PRIDE MD PROCEDURE(s): CXR1 - CHEST XRAY 1 VIEW REASON: chest pain ORDER NUMBER(s): [id number], ACCESSION NUMBER(s): [id number] CHEST RADIOGRAPH INDICATION: chest pain TECHNIQUE: Single frontal view of the chest was obtained COMPARISON: XY CHEST XRAY 1 VIEW on DOS: 01/24/25, XY CHEST XRAY 1 VIEW on DOS: 01/18/25, XY CHEST PORTABLE on DOS: 01/17/25 FINDINGS: Lines and Tubes: None Lungs: Perihilar opacities. Diffuse interstitial prominence. Opacification of right lateral lower lung zone. Left lower lung zone Opacification with obscuration of the left hemidiaphragm. No pneumothorax. Cardiomediastinal contours: [id number] cardiomegaly with moderate atherosclerotic calcification and uncoiling of the aorta. Leadless pacer is noted. Bones: No acute osseous abnormality. IMPRESSION: Cardiomegaly with findings suggestive of congestive heart failure and small bilateral pleural effusion ; slightly worsened on the Right. Underlying infectious process can not be excluded. ATED BY: NICA BONILLA DO DICTATED DATE/TIME: 02/01/251717 SIGNED BY: NICA BONILLA DO SIGNED DATE/TIME: 02/01/251717 CC: Time of 1ST Reevaluation: 18:00 Reevaluation 1ST: Unchanged Patient Education/Counseling: Diagnosis, Treatment Family Education/Counseling: No Family Present SEPSIS Sepsis Screen Date sepsis recognized/suspect: Feb 01, 2025 Time Sepsis recognized/suspect: 1624 Recent Procedure: No On Antibiotic Therapy: No Respiratory Rate >20: No Heart Rate >90: No Temp<36 C (96.8 F) or >38.3 C: No SBP <90 or MAP <65 mmHG: No New Acute Mental Status Change: No Is the patient on CPAP, BIPAP,: No Physician Orders Urinalysis (02/01/25 16:19) Electrocardigram (02/01/25 12:58) Electrocardigram (02/01/25 14:58) Troponin-I Hs (02/01/25 19:19) Electrocardigram (02/01/25 17:19) Electrocardigram (02/01/25 19:19) Chest Xray 1 View (02/01/25 16:19) Furosemide Injection (Lasix Injection) (02/01/25 19:15) Vital Signs Date Time Temp Pulse Resp B/P (MAP) Pulse Ox O2 Delivery O2 Flow Rate FiO2 02/01/25 18:30 98.4 60 33 129/61 (83) 98 98.4 02/01/25 17:49 60 02/01/25 17:34 98.4 65 33 129/58 (81) 98 98.4 02/01/25 16:50 77 02/01/25 16:21 98.6 71 20 146/68 98 98.6 Laboratory Tests Test 02/01/25 16:30 White Blood Count 8.5 10^3/uL (4.4-10.8) Departure 1 Departure Time of Disposition: 19:14 (Patient presented with shortness of breath that was concerning for possible STEMI, ACS, PE, Pneumonia, Muscle Strain, COPD, Dissection, Acute on Chronic systolic and Diastolic dysfunction. Data: 1. I ordered and reviewed the result of at least 3 labs including a CBC, BMP, and Troponin. 2. I independently interpreted the following tests: EKG which shows sinus arrhthmia and Chest X-ray which shows cardiomegaly.Risk:This patient has a high risk of morbidity due to further diagnostic testing or treatment and may suffer from an acute cardiac or respiratory disorder but is most consitent with an acute chf exacerbation. Patient should be admitted for further workup and possible expert consultation. ) Impression: Primary Impression: Acute on chronic systolic (congestive) heart failure Additional Impression: Acute myocardial infarction Disposition: ADMITTED INPATIENT Admit to: Tele Condition: Guarded Critical Care Note Critical Care Time?: Yes Critical care comment: Acute on chronic heart failure Authorized and Performed by: Esther Pride MD Total critical care time: Approximately 39 minutes Due to a high probability of clinically significant, life threatening deterioration, the patient required my highest level of preparedness to intervene emergently and I personally spent this critical care time directly and personally managing the patient. This critical care time included obtaining a history; examining the patient; pulse oximetry; ordering and review of studies; arranging urgent treatment with development of a management plan; evaluation of patient's response to treatment; frequent reassessment; and, discussions with other providers. This critical care time was performed to assess and manage the high probability of imminent, life-threatening deterioration that could result in multi-organ failure. It was exclusive of separately billable procedures and treating other patients and teaching time. Please see my other sections and the rest of the note for further information on patient assessment and treatment. Stability Stability form required: No Heart Score Heart Score: Heart Score Response (Comments) Value History Moderate Suspicious 1 EKG N/A 0 Age >65 2 Risk Factors >3 or Hx ASHD 2 Troponin N/A 0 Total 5 I personally scribed for ESTHER PRIDE MD ([email or web address]) on 02/01/25 at 17:43. Electronically submitted by Kassie Meredith ([email or web address]). I personally scribed for ESTHER PRIDE MD ([email or web address]) on 02/01/25 at 18:39. Electronically submitted by Kassie Meredith ([email or web address]). ESTHER PRIDE MD Feb 01, 2025 17:43
[2025-02-01] MEDS: FUROSEMIDE 40 MG/4 ML VIAL IV ONE (19:15)
[2025-02-01] MEDS ORDERED: NITROGLYCERIN 0.4 MG SL TAB SL PRN (20:15)
[2025-02-01 20:39] LABS: Urine Protein, UAD 1+ (Negative)
[2025-02-01] MEDS: MORPHINE SULFATE INJ 2 MG/ml SYRG IV PRN (20:39)
[2025-02-01] MEDS: MORPHINE SULFATE 4 MG/ML SYR/VIAL ONE (20:40)
[2025-02-01 21:59] VITALS: PULSE 73; O2SAT 96
[2025-02-01] MEDS ORDERED: ONDANSETRON HCL 4 MG/2 ML VIAL IV PRN (22:15)
--- NOTE | 2025-02-01 22:17 | DVHHP2 ---
History of Present Illness Reason for Visit: Chest pain History of Present Illness 70-year-old male presents for evaluation of chest pain. Patient reports a one day history of left-sided chest pressure which radiates to his left arm with associated shortness for breath and lower extremity edema. Currently rates the pain at 6/10 intensity. No nausea or vomiting. Past Medical History Asthma, CAD, CHF, chronic kidney disease, COPD, CVA, depression, diabetes mellitus Review of Systems Review of Systems Review of systems are currently negative otherwise addressed in HPI. Allergies: Coded Allergies: Acetaminophen (Verified Allergy, Unknown, 12/13/24) Medications Current Medications Medications Dose Ordered Sig/Yvette Route Start Time Stop Time Status Last Admin Dose Admin Nitroglycerin 0.4 mg Q5MINP PRN SL 02/01/25 20:15 Morphine Sulfate 2 mg Q30M PRN IV 02/01/25 20:15 02/01/25 20:39 2 MG Exam Vital Signs Vital Signs Date Time Temp Pulse Resp B/P (MAP) Pulse Ox O2 Delivery O2 Flow Rate FiO2 02/01/25 21:09 63 30 144/67 02/01/25 20:00 98.4 96 98.4 Exam Gen: 70-year-old male in mild distress, morbidly obese Skin: Warm, dry, normal color and texture, no rash. HEENT: Normocephalic atraumatic, mucous membranes moist and pink. Neck: Cervical and supraclavicular nodes normal without enlargement, trachea is midline, thyroid gland is normal without masses. Pulmonary: Clear to auscultation and percussion bilaterally. Cardiac: Regular rate and rhythm. No murmur Abdomen: Soft, nontender, nondistended, bowel sounds present all 4 quadrants, no guarding, no rigidity, no organomegaly. Extremities: No cyanosis, clubbing, plus one bilateral pedal edema Neuro: Cranial nerves II through XII grossly intact, normal affect and speech, no focal motor deficits. Labs/Xrays ORDERING PHYSICIAN: ARON PERLA MD PROCEDURE(s): ECIDC - ECHO 2D MODE CARDIAC DOP REASON: To rule out endocarditis ORDER NUMBER(s): [id number], ACCESSION NUMBER(s): [id number] APPROVED REPORT EXAM: LIMITED Two-dimensional and color doppler echocardiogram. Blood Pressure: 144/71 mmHg INDICATION LIMITED FOR ENDOCARDITIS RISK FACTORS Obesity: Height: 5'9, Weight: 282 DIMENSIONS EF (%) 60.0 (55-70%) Rt. Atrium (1.9-4.0cm) Asc. Aorta cm Mitral Valve Mitral Mitral Stenosis E/A ratio 0.0 2D MVA cm2 Other Information Quality : Technically Limited Rhythm : Technically limited study due to LIMITED FOR ENDOCARDITIS, patient position.body habitus. pt refused to turn on left side or lay down. Conclusion Technically good study. Sinus bradycardia. Aortic root enlargement. With severe concentric LVH. The mitral valve appears to be structurally normal. There is thickening of the aortic leaflets however there is appears to be adequate excursion. Left ventricular function appears preserved. EF is about 60% with normal RV function. There appears to be mild aortic insufficiency. No intracardiac masses thrombi or vegetations discernible. SIGNED BY: TEMO ORTIZ Sr., MD SIGNED DATE/TIME: 09/13/241941 CC: ORDERING PHYSICIAN: ESTHER PRIDE MD PROCEDURE(s): CXR1 - CHEST XRAY 1 VIEW REASON: chest pain ORDER NUMBER(s): [id number], ACCESSION NUMBER(s): [id number] CHEST RADIOGRAPH INDICATION: chest pain TECHNIQUE: Single frontal view of the chest was obtained COMPARISON: XY CHEST XRAY 1 VIEW on DOS: 01/24/25, XY CHEST XRAY 1 VIEW on DOS: 01/18/25, XY CHEST PORTABLE on DOS: 01/17/25 FINDINGS: Lines and Tubes: None Lungs: Perihilar opacities. Diffuse interstitial prominence. Opacification of right lateral lower lung zone. Left lower lung zone Opacification with obscuration of the left hemidiaphragm. No pneumothorax. Cardiomediastinal contours: Bsee-xm-rikjexgd cardiomegaly with moderate atherosclerotic calcification and uncoiling of the aorta. Leadless pacer is noted. Bones: No acute osseous abnormality. IMPRESSION: Cardiomegaly with findings suggestive of congestive heart failure and small bilateral pleural effusion ; slightly worsened on the Right. Underlying infectious process can not be excluded. ATED BY: NICA BONILLA DO DICTATED DATE/TIME: 02/01/25 [id number] Labs Test 02/01/25 20:21 02/01/25 19:34 02/01/25 16:30 Range/Units Urine Color Yellow Yellow Urine Clarity Clear Clear Urine pH 5.5 5.0-9.0 Urine Specific [place] 1.025 1.001-1.035 Urine Protein 1+ H Negative Urine Ketones Negative Negative Urine Blood Negative Negative /uL Urine Nitrite Negative Negative Urine Bilirubin Negative Negative Urine Urobilinogen Normal Negative mg/dL Urine Leukocyte Esterase Negative Negative /uL Urine RBC 2 0 - 3 /hpf Urine Microscopic WBC 2 0-3 /HPF Urine Squamous Epithelial Cells Few <5 /hpf Urine Bacteria Few H None Seen /hpf Urine Mucus Few None Seen Urine Glucose Normal Normal mg/dL Troponin I High Sensitivity 69 *H </=54 ng/L White Blood Count 8.5 4.4-10.8 10^3/uL Red Blood Count 3.65 L 4.5-5.90 10^6/uL Hemoglobin 9.4 L 13.5-17.5 g/dL Hematocrit 29.9 L 41.0-53.0 % Mean Corpuscular Volume 82.1 80.0-100.0 fL Mean Corpuscular Hemoglobin 25.7 L 28.0-32.0 pg Mean Corpuscular Hemoglobin Concent 31.3 L 32.0-36.0 g/dL Red Cell Distribution Width 19.9 H 11.8-14.3 % Platelet Count 173 140-450 10^3/uL Mean Platelet Volume 9.0 6.9-10.8 fL Neutrophils (%) (Auto) 75.0 37.0-80.0 % Lymphocytes (%) (Auto) 15.1 10.0-50.0 % Monocytes (%) (Auto) 8.6 0.0-12.0 % Eosinophils (%) (Auto) 0.9 0.0-7.0 % Basophils (%) (Auto) 0.4 0.0-2.0 % Neutrophils # (Auto) 6.4 1.6-8.6 10 ^3/uL Lymphocytes # (Auto) 1.3 0.4-5.4 10 ^3/uL Monocytes # (Auto) 0.7 0-1.3 10 ^3/uL Eosinophils # (Auto) 0.1 0-0.8 10 ^3/uL Basophils # (Auto) 0 0-0.2 10 ^3/uL Nucleated Red Blood Cells 0.1 % Sodium Level 144 136-145 mmol/L Potassium Level 4.2 3.5-5.1 mmol/L Chloride Level 109 H 98-107 mmol/L Carbon Dioxide Level 28 20-31 mmol/L Anion Gap 7 5-15 Blood Urea Nitrogen 17 9-23 mg/dL Creatinine 0.90 0.700-1.30 mg/dL Glomerular Filtration Rate Calc 91 >90 mL/min BUN/Creatinine Ratio 18.9 10.0-20.0 Serum Glucose 88 74-106 mg/dL Calcium Level 8.3 L 8.7-10.4 mg/dL B-Type Natriuretic Peptide 375.39 0-100 pg/mL Lipase 31 12-53 U/L SEPSIS Sepsis Screen Date sepsis recognized/suspect: Feb 01, 2025 Time Sepsis recognized/suspect: 1738 Recent Procedure: No On Antibiotic Therapy: No Respiratory Rate >20: Yes Heart Rate >90: No Temp<36 C (96.8 F) or >38.3 C: No SBP <90 or MAP <65 mmHG: No New Acute Mental Status Change: No Is the patient on CPAP, BIPAP,: No Physician Orders Electrocardigram (02/01/25 12:58) Electrocardigram (02/01/25 14:58) Electrocardigram (02/01/25 17:19) Electrocardigram (02/01/25 19:19) Chest Xray 1 View (02/01/25 16:19) Admit (02/01/25 20:02) Nitroglycerin Sublingual (Ntrostat Subli (02/01/25 20:15) Morphine Sulfate Injection (02/01/25 20:15) Stat Ekg For Chest Pain (02/01/25 20:02) Notify Md Of Changes From Base (02/01/25 20:02) Molder Hand For 24 Hours (02/01/25 20:02) Emergency Dysrhythmia Protocol (02/01/25 20:02) Rhythm Strips Once Every Shift (02/01/25 20:02) Oxygen By Nasal Cannula (02/01/25 20:02) Furosemide Injection (Lasix Injection) (02/02/25 06:00) Aspirin Tablet (02/02/25 10:00) Atorvastatin (Lipitor) (02/02/25 22:00) Clopidogrel Bisulfate (Plavix) (02/02/25 10:00) Budesonide (Inhalation) (Pulmicort) (02/02/25 10:00) Empagliflozin (Jardiance) (02/02/25 10:00) Levetiracetam Tablet (Keppra Tablet) (02/02/25 10:00) Pantoprazole Tablet (Protonix Tablet) (02/02/25 06:00) Ranolazine (Ranexa Er) (02/02/25 10:00) Basic Metabolic Panel (02/02/25 04:00) Ondansetron Hcl (Zofran) (02/01/25 22:15) Enoxaparin Sodium (Lovenox) (02/02/25 10:00) Cardiac Diet-2gna,Lofat,Lochol (02/02/25 Breakfast) Condition: Fair (02/01/25 22:08) Bedrest With Bathroom Privileg (02/01/25 22:08) Vital Signs Date Time Temp Pulse Resp B/P (MAP) Pulse Ox O2 Delivery O2 Flow Rate FiO2 02/01/25 21:09 63 30 144/67 02/01/25 20:39 63 18 150/63 02/01/25 20:00 98.4 75 28 150/63 (92) 96 98.4 02/01/25 19:43 59 02/01/25 18:30 98.4 60 33 129/61 (83) 98 98.4 02/01/25 17:49 60 02/01/25 17:34 98.4 65 33 129/58 (81) 98 98.4 02/01/25 16:50 77 02/01/25 16:21 98.6 71 20 146/68 98 98.6 Laboratory Tests Test 02/01/25 16:30 White Blood Count 8.5 10^3/uL (4.4-10.8) Medications Medications Dose Ordered Sig/Yvette Route Start Time Stop Time Status Last Admin Dose Admin Morphine Sulfate 2 mg Q30M PRN IV 02/01/25 20:15 02/01/25 20:39 2 MG Assessment/Plan Assessment/Plan Assessment Acute on chronic respiratory failure Possible CHF exacerbation Elevated troponin, downtrending,? Demand ischemia Hypertension Plan Admit the patient to telemetry to the hospitalist IV Lasix Resume home medications Continue treatment per orders. Plan discussed with: Patient My Orders Orders - LARA BERNAL Procedure Category Date Status Time Admit ADMIT 02/01/25 Transmitted 20:02 Nitroglycerin [facility] 02/01/25 In Process Sublingual (Ntrostat 20:15 Morphine Sulfate [facility] 02/01/25 In Process Injection 20:15 Stat Ekg For Chest [facility] 02/01/25 In Process Pain 20:02 Notify Md Of Changes [facility] 02/01/25 In Process From Base 20:[address] [facility] 02/01/25 In Process 24 Hours 20:[address] [facility] 02/01/25 In Process Protocol 20:02 [address] [facility] 02/01/25 In Process Every Shift 20:02 Oxygen By Nasal RT 02/01/25 Transmitted Cannula 20:02 Furosemide Injection [facility] 02/02/25 Transmitted (Lasix Injection) 06:00 Aspirin Tablet [facility] 02/02/25 Transmitted 10:00 Atorvastatin (Lipitor) [facility] 02/02/25 Transmitted 22:00 Clopidogrel Bisulfate [facility] 02/02/25 Transmitted (Plavix) 10:00 Budesonide [facility] 02/02/25 Transmitted (Inhalation) 10:00 Empagliflozin PHA 02/02/25 Transmitted (Jardiance) 10:00 Levetiracetam Tablet [facility] 02/02/25 Transmitted (Keppra Tablet) 10:00 Pantoprazole Tablet [facility] 02/02/25 Transmitted (Protonix Tablet) 06:00 Ranolazine (Ranexa Er) [facility] 02/02/25 Transmitted 10:00 Basic Metabolic Panel LAB 02/02/25 Verified 04:00 Ondansetron Hcl [facility] 02/01/25 Transmitted (Zofran) 22:15 Enoxaparin Sodium [facility] 02/02/25 Transmitted (Lovenox) 10:00 Cardiac DIET 02/02/25 Transmitted Diet-2gna,Lofat,Lochol Breakfast Condition: Fair [facility] 02/01/25 Transmitted 22:[address] [facility] 02/01/25 Transmitted Privileg 22:08 Date of Service: Feb 01, 2025 Billing Provider: LARA BERNAL Common Visit Codes: [id number] INP/OBS CARE (HIGH) LARA BERNAL Feb 01, 2025 22:17
[2025-02-01 22:50] VITALS: BP 128/63; PULSE 64; RESP 22; TEMP 98.8; O2SAT 98
[2025-02-02] VITALS (15 sets, daily range): BP systolic 122–138; BP diastolic 46–70; PULSE 58–73; RESP 18–22; TEMP 97.7–98.8; O2SAT 96–100
[2025-02-02] MEDS: KETOROLAC TROMETH 30 MG/ML 1ML VIAL IV ONE (01:32)
[2025-02-02] MEDS: FUROSEMIDE 20 MG/2 ML VIAL IV SCH (05:17)
[2025-02-02] MEDS: PANTOPRAZOLE 40 MG TAB PO SCH (05:18)
--- NOTE | 2025-02-02 07:11 | ECG ---
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
[2025-02-02] MEDS: BUDESONIDE (INHALATION) 0.5 MG/2 ML NEB NEB SCH (07:22)
[2025-02-02 07:24] LABS: Anion Gap 9 (5-15); Carbon Dioxide 26 mmol/L (20-31); Potassium 4.2 mmol/L (3.5-5.1)
[2025-02-02 07:30] LABS: BUN/Creatinine Ratio 21.1 (10.0-20.0); Blood Urea Nitrogen 19 mg/dL (9-23); Glucose 77 mg/dL (74-106)
[2025-02-02 07:33] LABS: Calcium 8.3 mg/dL (8.7-10.4); Chloride 111 mmol/L (98-107); Sodium 146 mmol/L (136-145)
[2025-02-02] MEDS: IPRATROPIUM BROM 0.5 MG/2.5ML INH SOL ONE (08:08)
[2025-02-02] MEDS: ALBUTEROL SULF 2.5 MG/0.5ML(0.5%) NEB SOLN ONE (08:09)
[2025-02-02] MEDS ORDERED: MORPHINE SULFATE INJ 2 MG/ml SYRG IV PRN ×2 (08:15→08:30)
[2025-02-02] MEDS: MORPHINE SULFATE 4 MG/ML SYR/VIAL IV PRN (08:45)
[2025-02-02] MEDS: NITROGLYCERIN 0.4 MG SL TAB SL PRN (08:57)
--- NOTE | 2025-02-02 10:26 | ECG ---
[facility] Test Date: 2025-02-01 Test Time: 17:49:31 Pat Name: NAVID SANCHEZ Department: ED Room: 0250T Gender: M Car Mover: carl : 1955 Requested By: ESTHER PRIDE Order Number: [id number] Reading MD: Som Vásquez Measurements Intervals [place] Rate: 60 P: -4 [place]: 153 QRS: -57 QRSD: 100 T: 30 QT: 433 QTc: 433 Interpretive Statements Sinus rhythm Left anterior fascicular block Anterior infarct, old Baseline wander in lead(s) V1,V2,V4,V5 Electronically Signed On 02-05-2025 17:16:04 PST by oSm Vásquez Please click the below link to view image of tracing.
--- NOTE | 2025-02-02 11:09 | ECG ---
[facility] Test Date: 2025-02-02 Test Time: 08:07:38 Pat Name: NAVID SANCHEZ Department: Respiratoy Room: 0250T Gender: M Thread Twister: JULIANA THOMSON LVN : 1955 Requested By: ESTHER PRIDE Order Number: [id number] Reading MD: Som Vásquez Measurements Intervals [place] Rate: 70 P: 106 [place]: 226 QRS: 9 QRSD: 158 T: 265 QT: 627 QTc: 677 Interpretive Statements Sinus rhythm Prolonged MI interval Left bundle branch block Electronically Signed On 02-05-2025 8:17:54 PST by Som Vásquez Please click the below link to view image of tracing.
[2025-02-02] MEDS: levETIRAcetam 500 MG TAB PO SCH (11:42)
[2025-02-02] MEDS: RANOLAZINE ER 500 MG TAB PO SCH (11:43)
[2025-02-02] MEDS: CLOPIDOGREL BISULFATE 75 MG TAB PO SCH (11:43)
[2025-02-02] MEDS: EMPAGLIFLOZIN 10 MG TAB PO SCH (11:43)
[2025-02-02] MEDS: ENOXAPARIN SOD 40 MG/0.4 ML SYRINGE SC SCH (11:44)
[2025-02-02] MEDS ORDERED: ALBUTEROL SULF 2.5 MG/0.5ML(0.5%) NEB SOLN NEB PRN (12:00)
[2025-02-02] MEDS ORDERED: IPRATROPIUM BROM 0.5 MG/2.5ML INH SOL NEB PRN (12:00)
[2025-02-02] MEDS: ASPirin-EC 81 mg tab PO SCH (13:43)
[2025-02-02] MEDS: KETOROLAC TROMETH 30 MG/ML 1ML VIAL IV PRN (13:44)
--- NOTE | 2025-02-02 14:42 | DVHPN2 ---
Assessment/Plan Assessment/Plan progress note 70 M morbidly obese, bed bound, hfpef, CAD s/p DESTINY, COPD admitted for chest pain. ultiple prior eval neg, persistent chest pain, recently discharged. 02/02 seen today, on and off chest pain, refusing meds. diuresing physical exam aox3 morbidly obese coarse breath soudns s1 s2 rrr abdomen soft trace le edema cannt see vjd labs ekg imgaing reviewed assessment and plan chest pain recurrent ACS ruled out acute on chronic hypoxic RF acute on chronic systolic HF CAD s/p DESTINY COPD on home O2 HFpEF 60% Type 2 [place] demand ischemia HTN anemia chronic disease morbid obesity b/l PLEF c/w diuresis goal neg 1L resume home med c/w home o2 no abx PLEF small to tap diet cardiac dvt ppx lovenox full code Plan discussed with: Patient My Orders Orders - BK LAGUERRE MD Procedure Category Date Status Time Furosemide Injection PHA 02/03/25 In Process (Lasix Injection) 10:00 Ketorolac Injection PHA 02/02/25 In Process (Toradol Injection) 12:30 Date of Service: Feb 02, 2025 Billing Provider: BK LAGUERRE MD Common Visit Codes: [id number] INP/OBS CARE(HIGH) BK LAGUERRE MD Feb 02, 2025 14:42
[2025-02-02] MEDS: ATORVASTATIN 20 MG TAB PO SCH (21:36)
[2025-02-03] VITALS (12 sets, daily range): BP systolic 117–155; BP diastolic 58–90; PULSE 52–112; RESP 14–22; TEMP 97.4–98.3; O2SAT 91–100
--- NOTE | 2025-02-03 02:24 | DVHINCON2 ---
Date of service: Feb 02, 2025 Referring Physician Matt Reason for Consultation Chest pain History of Present Illness This is a 70 year old male with a PMH of [place], HTN, HLD, DM, and angina presents to the ED for CC of chest pain. Patient states, he has been experiencing left- sided chest pain that radiates to his left-arm onset, today (02/01/25). Currently rates the pain at 6/10 intensity. Chest x-ray shows cardiomegaly with findings suggestive of congestive heart failure and small bilateral pleural effusion ; slightly worsened on the right. HGB 9.4, HCT 29.9. Troponin elevated x5. Patient was admitted to the hospital. I am asked to consult on this patient. Family History: Alcoholism G8 MOTHER, Onset:Unknown Cancer G8 SISTER (uterine cancer) Cardiovascular disease G8 SISTER Cerebrovascular accident (CVA) G8 SISTER Chronic obstructive pulmonary disease G8 SISTER Depression G8 SISTER Diabetes mellitus G8 SISTER G8 SISTER Family history: Cardiovascular disease Family history: Depression (situation) Family history: Hypertension Family history: Hypertension Glaucoma MATERNAL GPA Sepsis Stroke Stroke Allergies: Coded Allergies: Acetaminophen (Verified Allergy, Unknown, 12/13/24) Home Meds Active Scripts Levofloxacin Hemihydrate (LEVAQUIN 500 MG) 500 Mg Tab, 1 TAB PO DAILY for 5 Days, #5 TAB Prov:PATIENCE BLACK 01/23/25 Empagliflozin (Jardiance) 10 Mg Tab, 10 MG PO DAILY, #30 TAB Prov:WESLEY ROMEO MD 01/13/25 Furosemide (Lasix) 40 Mg Tab, 40 MG PO BID for 30 Days, #60 TAB Prov:BK LAGUERRE MD 05/29/24 Ranolazine (Ranexa) 500 Mg Tab, 500 MG PO BID for 30 Days, #60 TAB Prov:JUSTIN DUARTE MD 10/22/18 Reported Medications Nitroglycerin (Nitrostat) 0.4 Mg Sub, 1 TAB SL for 30 Days, #50 01/12/25 Senna (Senna) 8.6 Mg Tab, 2-4 TAB PO QHSP PRN for FOR CONSTIPATION for 22 Days, #90 01/12/25 Methocarbamol (Methocarbamol) 500 Mg Tab, 1.5 TAB PO Q8HR PRN for 13 Days, #40 11/24/25 Budesonide-Formoterol Fumarate (Budesonide/Formoterol Fum 160-4.5 Mcg/Act) 1 Aer Aer, 2 PUFF IN BID for 30 Days, #10.2 02/26/24 Midodrine HCl (Midodrine Hydrochloride) 5 Mg Tab, 1 TAB PO TID for 30 Days, #90 02/26/24 Potassium Chloride (Potassium Chloride ER) 10 Meq Tab, 1 TAB PO BID for 30 Days, #60 02/26/24 Aspirin (Aspirin Regular Strength) 325 Mg Tab, 1 TAB PO DAILY for 30 Days, #30 02/26/24 Lactulose (Lactulose) 10 Gm/15 Ml Rachna, 15 ML PO BID PRN for 15 Days, #473 02/26/24 Atorvastatin Calcium (Lipitor) 80 Mg Tab, 1 TAB PO DAILY for 30 Days, #30 02/26/24 Levetiracetam (Levetiracetam) 750 Mg Tab, 1 TAB PO BID for 30 Days, #60 02/26/24 Lidocaine (Lidocaine Topical Pain Pa) 4 % Pad, 1 PATCH TOP DAILY 06/28/23 Gabapentin (Gabapentin) 800 Mg Tab, 1 TAB PO BID for 30 Days, #60 06/28/23 Ipratropium-Albuterol (COMBIVENT RESPIMAT) Respimat Aer, 1 PUFF INH QID 05/14/23 Dapagliflozin Propanediol (Farxiga) 10 Mg Tab, 1 TAB PO DAILY for 30 Days, #30 05/14/23 Beclomethasone Dipropionate (Qvar Redihaler) 80 Mcg/Act Aer, 1 PUFF INH BID for 30 Days, #10.6 02/27/23 Silver Sulfadiazine (Silver Sulfadiazine) 1 % Cre, 1 APPLIC TOP DAILY for 30 Days, #50 02/27/23 Oxybutynin Chloride (Ditropan Xl) 5 Mg Tab, 15 MG PO DAILY for 30 Days, #30 02/27/23 Trazodone Hcl (Trazodone Hcl) 100 Mg Tab, 4 TAB PO HS for 30 Days, #120 02/27/23 Clopidogrel Bisulfate (CLOPIDOGREL) 75 Mg Tab, 1 TAB PO DAILY for 30 Days, #30 02/07/23 Pantoprazole Sodium Sesquihydr (Pantoprazole Sodium) 40 Mg Tab, 1 TAB PO QAM 02/07/23 Bupropion Hcl (Bupropion Hcl) 75 Mg Tab, 2 TAB PO DAILY for 30 Days, #60 11/10/17 Current Medications Current Medications Medications (Trade) Dose Ordered Sig/Yvette Route PRN Reason Start Time Stop Time Status Last Admin Furosemide (Lasix Injection) 20 mg BIDD IV 02/02/25 06:00 02/02/25 11:38 DC Aspirin 81 mg DAILY PO 02/02/25 10:00 02/02/25 12:15 DC Atorvastatin Calcium (Lipitor) 80 mg HS PO 02/02/25 22:00 02/02/25 21:36 Clopidogrel Bisulfate (Plavix) 75 mg DAILY PO 02/02/25 10:00 02/02/25 11:43 Budesonide (Pulmicort) 0.25 mg BID NEB 02/02/25 10:00 02/02/25 07:22 Empaglifozin (Jardiance) 10 mg DAILY PO 02/02/25 10:00 02/02/25 11:43 Levetiracetam (Keppra Tablet) 750 mg BID PO 02/02/25 10:00 02/02/25 21:36 Pantoprazole Sodium (Protonix Tablet) 40 mg DAILY@0600 PO 02/02/25 06:00 Ranolazine (Ranexa ER) 500 mg BID PO 02/02/25 10:00 02/02/25 21:36 Enoxaparin Sodium (Lovenox) 40 mg DAILY SC 02/02/25 10:00 02/02/25 11:44 Albuterol (Ventolin Medneb) 2.5 mg Q4HPRN PRN NEB SHORTNESS OF BREATH 02/02/25 12:00 Ipratropium [place] (Atrovent Medneb) 0.5 mg Q4HPRN PRN NEB SHORTNESS OF BREATH 02/02/25 12:00 Nitroglycerin (Ntrostat Sublingual) 0.4 mg Q5MINP PRN SL FOR CHEST PAIN 02/02/25 08:15 02/02/25 08:57 Morphine Sulfate 2 mg [id number] PRN IV CHEST PAIN 02/02/25 08:15 02/02/25 08:39 DC Morphine Sulfate 2 mg Q30M PRN IV FOR CHEST PAIN 02/02/25 08:30 02/02/25 08:39 DC Morphine Sulfate 2 mg Q30M PRN IV FOR CHEST PAIN 02/02/25 08:45 02/02/25 16:24 Furosemide (Lasix Injection) 40 mg DAILY IV 02/03/25 10:00 Aspirin (Ecotrin Enteric Coated Tablet) 81 mg DAILY PO 02/02/25 12:15 02/02/25 13:43 Ketorolac Tromethamine (Toradol Injection) 15 mg Q6HPRN PRN IV SEVERE PAIN (7-10 PAIN SCALE) 02/02/25 12:30 02/07/25 12:29 02/02/25 21:37 Review of Systems Constitutional: denies: chills, diaphoresis, fatigue, fever, malaise, sweats, weakness, others EENTM: denies: blurred vision, double vision, ear bleeding, ear discharge, ear drainage, ear pain, ear ringing, eye pain, eye redness, hearing loss, mouth pain, mouth swelling, nasal discharge, nose bleeding, nose congestion, nose pain, photophobia, tearing, throat pain, throat swelling, voice changes, others Respiratory: denies: cough, hemoptysis, orthopnea, SOB at rest, shortness of breath, SOB with excertion, stridor, wheezing, others Cardiovascular: reports: chest pain; denies: dizzy spells, diaphoresis, Dyspnea on exertion, edema, irregular heart beat, left arm pain, lightheadedness, palpitations, PND, syncope, others Gastrointestinal: reports: diarrhea; denies: abdomen distended, abdominal pain, blood streaked bowels, constipated, dysphagia, difficulty swallowing, hematemesis, melena, nausea, poor appetite, poor fluid intake, rectal bleeding, rectal pain, vomiting, others Genitourinary: denies: burning, dysuria, flank pain, frequency, hematuria, incontinence, penile discharge, penile sore, pain, testicle pain, testicle swelling, urgency, others Neurological: denies: dizziness, fainting, headache, left sided numbness, left sided weakness, numbness, paresthesia, pre-existing deficit, right sided numbness, right sided weakness, seizure, speech problems, tingling, tremors, weakness, others Musculoskeletal: denies: back pain, gout, joint pain, joint swelling, muscle pain, muscle stiffness, neck pain, others Integumetry: denies: bruises, change in color, change in hair/nails, dryness, laceration, lesions, lumps, rash, wounds, others Allergic/Immunocompromised: denies: Difficulty Healing, Frequent Infections, Hives, Itching, others Hematologic/Lymphatic: denies: anemia, blood clots, easy bleeding, easy bruising, swollen glands, others Endocrine: denies: excessive hunger, excessive sweating, excessive thirst, excessive urination, flushing, intolerance to cold, intolerance to heat, unexplained weight gain, unexplained weight loss, others Psychiatric: denies: anxiety, bipolar disorder, depression, hopeless, panic disorder, schizophrenia, sleepless, suicidal, others All Other Systems: Reviewed and Negative Vital Signs Vital Signs Date Time Temp Pulse Resp B/P (MAP) Pulse Ox O2 Delivery O2 Flow Rate FiO2 02/03/25 01:00 98.1 59 17 123/58 (79) 91 98.1 02/02/25 20:00 Nasal Cannula* 3 32 Physical Exam GENERAL: Alert and oriented x 3. No acute distress. Morbidly obese. EYES: PERRL, EOMI. Anicteric. HENT: Moist mucous membranes. LUNGS: Clear to auscultation bilaterally. CARDIOVASCULAR: Regular rate and rhythm. ABDOMEN: Soft, non-tender and non-distended. EXTREMITIES: No edema. NEUROLOGIC: No focal neurological deficits. SKIN: Warm, dry. Labs/Diagnostic Data Labs Test 02/02/25 15:17 02/02/25 08:15 02/02/25 05:02 02/01/25 20:21 Range/Units Troponin I High Sensitivity 67 *H </=54 ng/L POC Glucose 89 70-106 mg/dl Sodium Level 146 H 136-145 mmol/L Potassium Level 4.2 3.5-5.1 mmol/L Chloride Level 111 H 98-107 mmol/L Carbon Dioxide Level 26 20-31 mmol/L Anion Gap 9 5-15 Blood Urea Nitrogen 19 9-23 mg/dL Creatinine 0.90 0.700-1.30 mg/dL Glomerular Filtration Rate Calc 91 >90 mL/min BUN/Creatinine Ratio 21.1 H 10.0-20.0 Serum Glucose 77 74-106 mg/dL Calcium Level 8.3 L 8.7-10.4 mg/dL Urine Color Yellow Yellow Urine Clarity Clear Clear Urine pH 5.5 5.0-9.0 Urine Specific [place] 1.025 1.001-1.035 Urine Protein 1+ H Negative Urine Ketones Negative Negative Urine Blood Negative Negative /uL Urine Nitrite Negative Negative Urine Bilirubin Negative Negative Urine Urobilinogen Normal Negative mg/dL Urine Leukocyte Esterase Negative Negative /uL Urine RBC 2 0 - 3 /hpf Urine Microscopic WBC 2 0-3 /HPF Urine Squamous Epithelial Cells Few <5 /hpf Urine Bacteria Few H None Seen /hpf Urine Mucus Few None Seen Urine Glucose Normal Normal mg/dL Test 02/01/25 16:30 Range/Units White Blood Count 8.5 4.4-10.8 10^3/uL Red Blood Count 3.65 L 4.5-5.90 10^6/uL Hemoglobin 9.4 L 13.5-17.5 g/dL Hematocrit 29.9 L 41.0-53.0 % Mean Corpuscular Volume 82.1 80.0-100.0 fL Mean Corpuscular Hemoglobin 25.7 L 28.0-32.0 pg Mean Corpuscular Hemoglobin Concent 31.3 L 32.0-36.0 g/dL Red Cell Distribution Width 19.9 H 11.8-14.3 % Platelet Count 173 140-450 10^3/uL Mean Platelet Volume 9.0 6.9-10.8 fL Neutrophils (%) (Auto) 75.0 37.0-80.0 % Lymphocytes (%) (Auto) 15.1 10.0-50.0 % Monocytes (%) (Auto) 8.6 0.0-12.0 % Eosinophils (%) (Auto) 0.9 0.0-7.0 % Basophils (%) (Auto) 0.4 0.0-2.0 % Neutrophils # (Auto) 6.4 1.6-8.6 10 ^3/uL Lymphocytes # (Auto) 1.3 0.4-5.4 10 ^3/uL Monocytes # (Auto) 0.7 0-1.3 10 ^3/uL Eosinophils # (Auto) 0.1 0-0.8 10 ^3/uL Basophils # (Auto) 0 0-0.2 10 ^3/uL Nucleated Red Blood Cells 0.1 % B-Type Natriuretic Peptide 375.39 0-100 pg/mL Lipase 31 12-53 U/L Microbiology Date/Time Source Procedure Growth Status 02/02/25 02:18 Nose MRSA Screen - Final Methicillin Resistant S.aureus Complete Assessment Chest pain recurrent. Acute on chronic hypoxic RF. Acute on chronic systolic HF. CAD s/p DESTINY. COPD on home O2. HFpEF 60%. Type 2 [place] demand ischemia. HTN. Anemia chronic disease. Morbid obesity. Plan/Recommendation I agree with your ongoing assessment and care of plan. Aspirin, Lipitor, Plavix. DVT and GI prophylactics. Diuretics with Lasix. Morphine for pain management. Additional plan as per the hospital course. A total of 45 minutes was spent reviewing the patient record, examining the patient, making a diagnostic and therapeutic plan, discussing this plan with medical personnel, following up on diagnostic studies and following the patient for clinical stability excluding any and all procedures. At least 50% of this time was spent in direct, [id number] contact. Plan discussed with: Patient ROHINI ABARCA MD Feb 03, 2025 02:24
--- NOTE | 2025-02-03 09:53 | CONS ---
Pharmacy Clinical Information: From Heart Failure Fallout Report on CQM Application, Dav Cain is a 70 year old male with PMH of Asthma, CAD, CHF, chronic kidney disease, COPD, CVA, depression, diabetes mellitus Patient is already on anti-hyperglycemic drug (Empagliflozin 10mg PO daily) for inpatient with blood glucose of 77 and 89 [facility] Feb 03, 2025 09:53
[2025-02-03] MEDS: FUROSEMIDE 40 MG/4 ML VIAL IV SCH (10:22)
--- NOTE | 2025-02-03 16:31 | DVHPN2 ---
Assessment/Plan Assessment/Plan progress note 70 M morbidly obese, bed bound, hfpef, CAD s/p DESTINY, COPD admitted for chest pain. ultiple prior eval neg, persistent chest pain, recently discharged. 02/02 seen today, on and off chest pain, refusing meds. diuresing 02/03 d/w fam member taking care of pt. pt will be discharged tomorrow and set up with televisit. improving, pain still on and off. occasionally refusing meds. physical exam aox3 morbidly obese coarse breath soudns s1 s2 rrr abdomen soft trace le edema cannt see vjd labs ekg imgaing reviewed assessment and plan chest pain recurrent ACS ruled out acute on chronic hypoxic RF acute on chronic systolic HF CAD s/p DESTINY COPD on home O2 HFpEF 60% Type 2 [place] demand ischemia HTN anemia chronic disease morbid obesity b/l PLEF c/w diuresis goal neg 1L resume home med c/w home o2 no abx PLEF small to tap diet cardiac dvt ppx lovenox full code Plan discussed with: Patient, Other Date of Service: Feb 03, 2025 Billing Provider: BK LAGUERRE MD Common Visit Codes: [id number] INP/OBS CARE(HIGH) BK LAGUERRE MD Feb 03, 2025 16:31
--- NOTE | 2025-02-03 23:27 | DVHPN2 ---
Progress Note - Dictate Date Seen: Feb 03, 2025 Medical Necessity Reason Pt with a Central, PICC or Fol: No Subjective Patient was seen and evaluated in follow up. Patient is complaining of chest pain. Per RN, patient has been refusing medications today. Troponin 68 > 67. Telemetry reviewed. vital signs Vital Sign Date Time Temp Pulse Resp B/P (MAP) Pulse Ox O2 Delivery O2 Flow Rate FiO2 02/03/25 10:22 137/68 02/03/25 09:00 97.6 52 20 98 97.6 02/03/25 06:26 Nasal Cannula 3.0 02/03/25 06:26 32 Total Intake and Output 02/02/25 02/02/25 02/03/25 15:00 23:00 07:00 Intake Total 650 ml 200 ml Balance 650 ml 200 ml medications Current Medications Medications Dose Ordered Sig/Yvette Route Start Time Stop Time Status Last Admin Dose Admin Atorvastatin Calcium 80 mg HS PO 02/02/25 22:00 02/02/25 21:36 80 MG Clopidogrel Bisulfate 75 mg DAILY PO 02/02/25 10:00 02/03/25 10:20 75 MG Budesonide 0.25 mg BID NEB 02/02/25 10:00 02/02/25 07:22 0.25 MG Empaglifozin 10 mg DAILY PO 02/02/25 10:00 02/03/25 10:20 10 MG Levetiracetam 750 mg BID PO 02/02/25 10:00 02/03/25 10:21 750 MG Pantoprazole Sodium 40 mg DAILY@0600 PO 02/02/25 06:00 Ranolazine 500 mg BID PO 02/02/25 10:00 02/03/25 10:20 500 MG Ondansetron HCl 4 mg Q4HP PRN IV 02/01/25 22:15 Enoxaparin Sodium 40 mg DAILY SC 02/02/25 10:00 02/03/25 10:23 40 MG Albuterol 2.5 mg Q4HPRN PRN NEB 02/02/25 12:00 Ipratropium [place] 0.5 mg Q4HPRN PRN NEB 02/02/25 12:00 Nitroglycerin 0.4 mg Q5MINP PRN SL 02/02/25 08:15 02/02/25 08:57 0.4 MG Morphine Sulfate 2 mg Q30M PRN IV 02/02/25 08:45 02/02/25 16:24 2 MG Furosemide 40 mg DAILY IV 02/03/25 10:00 02/03/25 10:22 40 MG Aspirin 81 mg DAILY PO 02/02/25 12:15 02/03/25 10:21 81 MG Ketorolac Tromethamine 15 mg Q6HPRN PRN IV 02/02/25 12:30 02/07/25 12:29 02/03/25 10:22 15 MG objective GENERAL: Alert and oriented x 3. No acute distress. Morbidly obese. EYES: PERRL, EOMI. Anicteric. HENT: Moist mucous membranes. LUNGS: Clear to auscultation bilaterally. CARDIOVASCULAR: Regular rate and rhythm. ABDOMEN: Soft, non-tender and non-distended. EXTREMITIES: No edema. NEUROLOGIC: No focal neurological deficits. SKIN: Warm, dry. laboratory and microbiology Laboratory Tests 02/02/25 05:02 02/01/25 16:30 Test 02/02/25 05:02 Range/Units Serum Glucose 77 74-106 mg/dL Problem List Chest pain recurrent. Acute on chronic hypoxic RF. Acute on chronic systolic HF. CAD s/p DESTINY. COPD on home O2. HFpEF 60%. Type 2 [place] demand ischemia. HTN. Anemia chronic disease. Morbid obesity. Assessment/Plan Continued all current supportive medical care. Aspirin, Lipitor, Plavix. DVT and GI prophylactics. Diuretics with Lasix. Morphine for pain management. Additional plan as per the hospital course. Plan discussed with: Patient ROHINI ABARCA MD Feb 03, 2025 13:53
[2025-02-04] VITALS (8 sets, daily range): BP systolic 130–143; BP diastolic 53–74; PULSE 56–73; RESP 16–18; TEMP 36.6; O2SAT 80–98
[2025-02-04] MEDS ORDERED: PERCOT PO (09:30)
--- NOTE | 2025-02-04 14:25 | DVHDS2 ---
Discharge Summary Date of Admission Feb 01, 2025 at 20:02 Date of Discharge: Feb 04, 2025 Labs/Diagnostic Data: Laboratory Results Test 02/02/25 15:17 02/02/25 08:15 02/02/25 05:02 02/01/25 20:21 Troponin I High Sensitivity 67 ng/L (</=54) POC Glucose 89 mg/dl (70-106) Sodium Level 146 mmol/L (136-145) Potassium Level 4.2 mmol/L (3.5-5.1) Chloride Level 111 mmol/L (98-107) Carbon Dioxide Level 26 mmol/L (20-31) Anion Gap 9 (5-15) Blood Urea Nitrogen 19 mg/dL (9-23) Creatinine 0.90 mg/dL (0.700-1.30) Glomerular Filtration Rate Calc 91 mL/min (>90) BUN/Creatinine Ratio 21.1 (10.0-20.0) Serum Glucose 77 mg/dL (74-106) Calcium Level 8.3 mg/dL (8.7-10.4) Urine Color Yellow (Yellow) Urine Clarity Clear (Clear) Urine pH 5.5 (5.0-9.0) Urine Specific [place] 1.025 (1.001-1.035) Urine Protein 1+ (Negative) Urine Ketones Negative (Negative) Urine Blood Negative /uL (Negative) Urine Nitrite Negative (Negative) Urine Bilirubin Negative (Negative) Urine Urobilinogen Normal mg/dL (Negative) Urine Leukocyte Esterase Negative /uL (Negative) Urine RBC 2 /hpf (0 - 3) Urine Microscopic WBC 2 /HPF (0-3) Urine Squamous Epithelial Cells Few /hpf (<5) Urine Bacteria Few /hpf (None Seen) Urine Mucus Few (None Seen) Urine Glucose Normal mg/dL (Normal) Test 02/01/25 16:30 White Blood Count 8.5 10^3/uL (4.4-10.8) Red Blood Count 3.65 10^6/uL (4.5-5.90) Hemoglobin 9.4 g/dL (13.5-17.5) Hematocrit 29.9 % (41.0-53.0) Mean Corpuscular Volume 82.1 fL (80.0-100.0) Mean Corpuscular Hemoglobin 25.7 pg (28.0-32.0) Mean Corpuscular Hemoglobin Concent 31.3 g/dL (32.0-36.0) Red Cell Distribution Width 19.9 % (11.8-14.3) Platelet Count 173 10^3/uL (140-450) Mean Platelet Volume 9.0 fL (6.9-10.8) Neutrophils (%) (Auto) 75.0 % (37.0-80.0) Lymphocytes (%) (Auto) 15.1 % (10.0-50.0) Monocytes (%) (Auto) 8.6 % (0.0-12.0) Eosinophils (%) (Auto) 0.9 % (0.0-7.0) Basophils (%) (Auto) 0.4 % (0.0-2.0) Neutrophils # (Auto) 6.4 10 ^3/uL (1.6-8.6) Lymphocytes # (Auto) 1.3 10 ^3/uL (0.4-5.4) Monocytes # (Auto) 0.7 10 ^3/uL (0-1.3) Eosinophils # (Auto) 0.1 10 ^3/uL (0-0.8) Basophils # (Auto) 0 10 ^3/uL (0-0.2) Nucleated Red Blood Cells 0.1 % B-Type Natriuretic Peptide 375.39 pg/mL (0-100) Lipase 31 U/L (12-53) Other Laboratory Tests 02/02/25 05:02 02/01/25 16:30 Brief Hx & Hospital Course: progress note 70 M morbidly obese, bed bound, hfpef, CAD s/p DESTINY, COPD admitted for chest pain. ultiple prior eval neg, persistent chest pain, recently discharged. 02/02 seen today, on and off chest pain, refusing meds. diuresing. seen by cardio 02/03 d/w fam member taking care of pt. pt will be discharged tomorrow and set up with televisit. improving, pain still on and off. occasionally refusing meds. 02/04 discharged pt with pain meds, f/u televisit sunday and informed sister to get pt to pcp Condition at Discharge: Stable Final Diagnosis/Problems List chest pain recurrent ACS ruled out acute on chronic hypoxic RF acute on chronic systolic HF CAD s/p DESTINY COPD on home O2 HFpEF 60% Type 2 [place] demand ischemia HTN anemia chronic disease morbid obesity b/l PLEF Discharge Disposition: Home Discharge Instruct/Medications Diet: Consistent carbohydrate, Cardiac 2g Na,low cholest Activity: No Restrictions, As Tolerated Follow Up/Referral: televisit 02/[address] contreras Scheduled Aspirin (Aspirin Regular Strength), 1 TAB PO DAILY, (Reported) Atorvastatin Calcium (Lipitor), 1 TAB PO DAILY, (Reported) Beclomethasone Dipropionate (Qvar Redihaler), 1 PUFF INH BID, (Reported) Budesonide-Formoterol Fumarate (Budesonide/Formoterol Fum 160-4.5 Mcg/Act), 2 PUFF IN BID, (Reported) Bupropion Hcl (Bupropion Hcl), 2 TAB PO DAILY, (Reported) Clopidogrel Bisulfate (Clopidogrel), 1 TAB PO DAILY, (Reported) Dapagliflozin Propanediol (Farxiga), 1 TAB PO DAILY, (Reported) Empagliflozin (Jardiance), 10 MG PO DAILY Furosemide (Lasix), 40 MG PO BID Gabapentin (Gabapentin), 1 TAB PO BID, (Reported) Ipratropium-Albuterol (Combivent Respimat), 1 PUFF INH QID, (Reported) Lactulose (Lactulose), 15 ML PO BID PRN, (Reported) Levetiracetam (Levetiracetam), 1 TAB PO BID, (Reported) Levofloxacin Hemihydrate (Levaquin 500 Mg), 1 TAB PO DAILY Lidocaine (Lidocaine Topical Pain Pa), 1 PATCH TOP DAILY, (Reported) Methocarbamol (Methocarbamol), 1.5 TAB PO Q8HR PRN, (Reported) Midodrine HCl (Midodrine Hydrochloride), 1 TAB PO TID, (Reported) Oxybutynin Chloride (Ditropan Xl), 15 MG PO DAILY, (Reported) Pantoprazole Sodium Sesquihydr (Pantoprazole Sodium), 1 TAB PO QAM, (Reported) Potassium Chloride (Potassium Chloride ER), 1 TAB PO BID, (Reported) Ranolazine (Ranexa), 500 MG PO BID Silver Sulfadiazine (Silver Sulfadiazine), 1 APPLIC TOP DAILY, (Reported) Trazodone Hcl (Trazodone Hcl), 4 TAB PO HS, (Reported) Scheduled PRN Oxycodone W/ Acetaminophen (Percocet 5/325MG), 1 TAB PO QID PRN Senna (Senna), 2-4 TAB PO QHSP PRN for FOR CONSTIPATION, (Reported) Miscellaneous Medications Nitroglycerin (Nitrostat), 1 TAB SL, (Reported) Discharge Statement: "Patient was advised to return to the ER or call 911 if any headaches, dizziness, shortness of breath, chest pain, abdominal pain, bleeding, fevers, or worsening of medical condition. Patient was counseled about treatment plan, medications, possible side effects, patientverbalized understanding. All questions were answered to the best of my ability. This discharge took greater then 30 minutes in planning, reviewing documentation, counseling the patient, and discussing with other team members." ASSESSMENT ASSESSMENT Assessment chest pain hfref exacerbation Date of Service: Feb 04, 2025 Billing Provider: BK LAGUERRE MD Common Visit Codes: [id number] DISCH DAY >30min BK LAGUERRE MD Feb 04, 2025 14:25
--- NOTE | 2025-02-05 04:22 | DVHPN2 ---
Progress Note - Dictate Date Seen: Feb 04, 2025 Medical Necessity Reason Pt with a Central, PICC or Fol: No Subjective Patient was seen and evaluated in follow up. Patient is complaining of persistent chest pain. Patient is refusing to wear NC. Telemetry reviewed. vital signs Vital Sign Date Time Temp Pulse Resp B/P (MAP) Pulse Ox O2 Delivery O2 Flow Rate FiO2 02/04/25 11:20 36.6 02/04/25 10:03 143/53 02/04/25 09:52 95 Nasal Cannula 2.0 02/04/25 09:52 28 02/04/25 09:00 66 17 Total Intake and Output 02/03/25 02/03/25 02/04/25 15:00 23:00 07:00 Intake Total 900 ml 0 ml Balance 900 ml 0 ml medications Current Medications Medications Dose Ordered Sig/Yvette Route Start Time Stop Time Status Last Admin Dose Admin Atorvastatin Calcium 80 mg HS PO 02/02/25 22:00 02/03/25 22:14 80 MG Clopidogrel Bisulfate 75 mg DAILY PO 02/02/25 10:00 02/04/25 10:03 75 MG Budesonide 0.25 mg BID NEB 02/02/25 10:00 02/03/25 19:47 0.25 MG Empaglifozin 10 mg DAILY PO 02/02/25 10:00 02/04/25 10:03 10 MG Levetiracetam 750 mg BID PO 02/02/25 10:00 02/04/25 10:03 750 MG Pantoprazole Sodium 40 mg DAILY@0600 PO 02/02/25 06:00 02/04/25 05:33 40 MG Ranolazine 500 mg BID PO 02/02/25 10:00 02/04/25 10:03 500 MG Ondansetron HCl 4 mg Q4HP PRN IV 02/01/25 22:15 Enoxaparin Sodium 40 mg DAILY SC 02/02/25 10:00 02/04/25 10:01 40 MG Albuterol 2.5 mg Q4HPRN PRN NEB 02/02/25 12:00 Ipratropium [place] 0.5 mg Q4HPRN PRN NEB 02/02/25 12:00 Nitroglycerin 0.4 mg Q5MINP PRN SL 02/02/25 08:15 02/02/25 08:57 0.4 MG Morphine Sulfate 2 mg Q30M PRN IV 02/02/25 08:45 02/02/25 16:24 2 MG Furosemide 40 mg DAILY IV 02/03/25 10:00 02/04/25 10:03 40 MG Aspirin 81 mg DAILY PO 02/02/25 12:15 02/04/25 10:03 81 MG Ketorolac Tromethamine 15 mg Q6HPRN PRN IV 02/02/25 12:30 02/07/25 12:29 02/04/25 10:01 15 MG objective GENERAL: Alert and oriented x 3. No acute distress. Morbidly obese. EYES: PERRL, EOMI. Anicteric. HENT: Moist mucous membranes. LUNGS: Clear to auscultation bilaterally. CARDIOVASCULAR: Regular rate and rhythm. ABDOMEN: Soft, non-tender and non-distended. EXTREMITIES: No edema. NEUROLOGIC: No focal neurological deficits. SKIN: Warm, dry. laboratory and microbiology Laboratory Tests 02/02/25 05:02 02/01/25 16:30 Test 02/02/25 05:02 Range/Units Serum Glucose 77 74-106 mg/dL Problem List Chest pain recurrent. Acute on chronic hypoxic RF. Acute on chronic systolic HF. CAD s/p DESTINY. COPD on home O2. HFpEF 60%. Type 2 [place] demand ischemia. HTN. Anemia chronic disease. Morbid obesity. Assessment/Plan Continued all current supportive medical care. Aspirin, Lipitor, Plavix. DVT and GI prophylactics. Diuretics with Lasix. Morphine for pain management. Additional plan as per the hospital course. Plan discussed with: Patient ROHINI ABARCA MD Feb 04, 2025 13:15
== END 2025-02-04 14:09 | disposition home or self-care (01) | DRG 280 ==
LOC: ER 16:14 → EDBD 16:14 → OVERFLOW 20:02 → TELE-EAST 22:41
PROVIDERS: ADMIT Student in an Organized Health Care Education/Training Program; ATTEND Student in an Organized Health Care Education/Training Program
DX: I13.0 Hypertensive heart and chronic kidney disease with heart failure and stage 1 through stage 4 chronic kidney disease, or unspecified chronic kidney disease (principal); I50.43 Acute on chronic combined systolic (congestive) and diastolic (congestive) heart failure; I21.A1 Myocardial infarction type 2; J96.21 Acute and chronic respiratory failure with hypoxia; Z99.81 Dependence on supplemental oxygen; E11.22 Type 2 diabetes mellitus with diabetic chronic kidney disease; N18.9 Chronic kidney disease, unspecified; E66.01 Morbid (severe) obesity due to excess calories; D63.8 Anemia in other chronic diseases classified elsewhere; J44.89 Other specified chronic obstructive pulmonary disease; Z68.41 Body mass index [BMI] 40.0-44.9, adult; I25.10 Atherosclerotic heart disease of native coronary artery without angina pectoris; E78.5 Hyperlipidemia, unspecified; Z79.84 Long term (current) use of oral hypoglycemic drugs; Z79.82 Long term (current) use of aspirin; Z90.49 Acquired absence of other specified parts of digestive tract; Z95.5 Presence of coronary angioplasty implant and graft; Z88.6 Allergy status to analgesic agent; Z83.3 Family history of diabetes mellitus; Z82.5 Family history of asthma and other chronic lower respiratory diseases; Z82.49 Family history of ischemic heart disease and other diseases of the circulatory system; Z82.3 Family history of stroke; Z81.8 Family history of other mental and behavioral disorders; Z86.73 Personal history of transient ischemic attack (TIA), and cerebral infarction without residual deficits
CPT/HCPCS: 36415; 71045; 80048; 81001; 82962; 83690; 83880; 84484; 85025; 87081; 93005; 94640; 96374; 99291; G0378; J1885

== ENCOUNTER 2025-02-10 09:00 | Emergency (ER) | payer BC, OTHER ==
[~2025-02-10] VITALS: Ht 177.8 cm; Wt 145.4 kg
[~2025-02-10 09:00] MED LIST changes: +PERCOT PO
--- NOTE | 2025-02-10 09:16 | ED.PDOC ---
History of Present Illness HPI Comments 70-year-old male BIBA with prior medical history of CVA(right-sided deficits), mi, high lipids, seizure, COPD, CHF, uses 2 L of O2 at home, angina, anxiety, asthma, CAD, CKF, depression, diabetes, GERD, hypertension, liver, TIA, UTI: Surgical history of five cardiac stents placed, appendectomy, cholecystectomy, PTCA, thyroidectomy, pacemaker and a chief complaint of chest pain. EMS report on the patient having had left sided chest pain for the past hour which increases with inhalation on exertion. Denies any other symptoms at this time. Denies chills, fever, N/V/D. No other associated symptoms, modifiers, recent injuries or sick contacts present at this time. Chief Complaint: Chest Pain Time Seen by MD: 09:10 Primary Care Provider: marie Reviewed Notes: Nurses Notes, Furnace Combustion Tester Notes, Medications, Allergies Allergies: Coded Allergies: Acetaminophen (Verified Allergy, Unknown, 12/13/24) Home Meds Active Scripts Oxycodone W/ Acetaminophen (Percocet 5/325MG) 1 Tab Tb, 1 TAB PO QID PRN for 7 Days, #28 TAB Prov:BK LAGUERRE MD 02/04/25 Levofloxacin Hemihydrate (LEVAQUIN 500 MG) 500 Mg Tab, 1 TAB PO DAILY for 5 Days, #5 TAB Prov:PATIENCE BLACK RESIDENT 01/23/25 Empagliflozin (Jardiance) 10 Mg Tab, 10 MG PO DAILY, #30 TAB Prov:WESLEY ROMEO MD 01/13/25 Furosemide (Lasix) 40 Mg Tab, 40 MG PO BID for 30 Days, #60 TAB Prov:BK LAGUERRE MD 05/29/24 Ranolazine (Ranexa) 500 Mg Tab, 500 MG PO BID for 30 Days, #60 TAB Prov:JUSTIN DUARTE MD 10/22/18 Reported Medications Nitroglycerin (Nitrostat) 0.4 Mg Sub, 1 TAB SL for 30 Days, #50 01/12/25 Senna (Senna) 8.6 Mg Tab, 2-4 TAB PO QHSP PRN for FOR CONSTIPATION for 22 Days, #90 01/12/25 Methocarbamol (Methocarbamol) 500 Mg Tab, 1.5 TAB PO Q8HR PRN for 13 Days, #40 01/12/25 Budesonide-Formoterol Fumarate (Budesonide/Formoterol Fum 160-4.5 Mcg/Act) 1 Aer Aer, 2 PUFF IN BID for 30 Days, #10.2 02/26/24 Midodrine HCl (Midodrine Hydrochloride) 5 Mg Tab, 1 TAB PO TID for 30 Days, #90 02/26/24 Potassium Chloride (Potassium Chloride ER) 10 Meq Tab, 1 TAB PO BID for 30 Days, #60 02/26/24 Aspirin (Aspirin Regular Strength) 325 Mg Tab, 1 TAB PO DAILY for 30 Days, #30 02/26/24 Lactulose (Lactulose) 10 Gm/15 Ml Rachna, 15 ML PO BID PRN for 15 Days, #473 02/26/24 Atorvastatin Calcium (Lipitor) 80 Mg Tab, 1 TAB PO DAILY for 30 Days, #30 02/26/24 Levetiracetam (Levetiracetam) 750 Mg Tab, 1 TAB PO BID for 30 Days, #60 02/26/24 Lidocaine (Lidocaine Topical Pain Pa) 4 % Pad, 1 PATCH TOP DAILY 06/28/23 Gabapentin (Gabapentin) 800 Mg Tab, 1 TAB PO BID for 30 Days, #60 06/28/23 Ipratropium-Albuterol (COMBIVENT RESPIMAT) Respimat Aer, 1 PUFF INH QID 05/14/23 Dapagliflozin Propanediol (Farxiga) 10 Mg Tab, 1 TAB PO DAILY for 30 Days, #30 05/14/23 Beclomethasone Dipropionate (Qvar Redihaler) 80 Mcg/Act Aer, 1 PUFF INH BID for 30 Days, #10.6 02/27/23 Silver Sulfadiazine (Silver Sulfadiazine) 1 % Cre, 1 APPLIC TOP DAILY for 30 Days, #50 02/27/23 Oxybutynin Chloride (Ditropan Xl) 5 Mg Tab, 15 MG PO DAILY for 30 Days, #30 02/27/23 Trazodone Hcl (Trazodone Hcl) 100 Mg Tab, 4 TAB PO HS for 30 Days, #120 02/27/23 Clopidogrel Bisulfate (CLOPIDOGREL) 75 Mg Tab, 1 TAB PO DAILY for 30 Days, #30 02/07/23 Pantoprazole Sodium Sesquihydr (Pantoprazole Sodium) 40 Mg Tab, 1 TAB PO QAM 02/07/23 Bupropion Hcl (Bupropion Hcl) 75 Mg Tab, 2 TAB PO DAILY for 30 Days, #60 11/10/17 Information Source: Patient, Emergency Med Personnel Mode of Arrival: EMS Severity: Moderate Timing: Minutes Duration: Since onset, Minutes Prehospital treatment: None Past Medical History PAST MEDICAL HISTORY: Angina, Anxiety, Asthma, CAD, CHF, CKF, COPD, CVA (Right- sided deficits), Depression, DM, GERD, High Lipids, HTN, Liver, [place], Seizures, TIA, UTI'S Surgical History: Appendectomy, Cholecystectomy, Pacemaker, PTCA (5), Thyroidectomy Family History Family History: Reviewed,noncontributory to illness, Unknown Social History Smoker: Non-Smoker Alcohol: Denies ETOH Use Drugs: Denies Drug Use Lives In: Home Constitutional: denies: chills, diaphoresis, fatigue, fever, malaise, sweats, weakness, others EENTM: denies: blurred vision, double vision, ear bleeding, ear discharge, ear drainage, ear pain, ear ringing, eye pain, eye redness, hearing loss, mouth pain, mouth swelling, nasal discharge, nose bleeding, nose congestion, nose trixie n, photophobia, tearing, throat pain, throat swelling, voice changes, others Respiratory: denies: cough, hemoptysis, orthopnea, SOB at rest, shortness of breath, SOB with excertion, stridor, wheezing, others Cardiovascular: reports: chest pain; denies: dizzy spells, diaphoresis, Dyspnea on exertion, edema, irregular heart beat, left arm pain, lightheadedness, palpitations, PND, syncope, others Gastrointestinal: denies: abdomen distended, abdominal pain, blood streaked bowels, constipated, diarrhea, dysphagia, difficulty swallowing, hematemesis, me dianne, nausea, poor appetite, poor fluid intake, rectal bleeding, rectal pain, vomiting, others Genitourinary: denies: burning, dysuria, flank pain, frequency, hematuria, incontinence, penile discharge, penile sore, pain, testicle pain, testicle swelling, urgency, others Neurological: denies: dizziness, fainting, headache, left sided numbness, left sided weakness, numbness, paresthesia, pre-existing deficit, right sided numbness, right sided weakness, seizure, speech problems, tingling, tremors, weakness, others Musculoskeletal: denies: back pain, gout, joint pain, joint swelling, muscle pain, muscle stiffness, neck pain, others Integumetry: denies: bruises, change in color, change in hair/nails, dryness, laceration, lesions, lumps, rash, wounds, others Allergic/Immunocompromised: denies: Difficulty Healing, Frequent Infections, Hives, Itching, others Hematologic/Lymphatic: denies: anemia, blood clots, easy bleeding, easy bruising, swollen glands, others Endocrine: denies: excessive hunger, excessive sweating, excessive thirst, excessive urination, flushing, intolerance to cold, intolerance to heat, unexplained weight gain, unexplained weight loss, others Psychiatric: denies: anxiety, bipolar disorder, depression, hopeless, panic disorder, schizophrenia, sleepless, suicidal, others All Other Systems: Reviewed and Negative Physical Exam General Appearance: Moderate Distress, Normal HEENT: Normal ENT Inspection, Pharynx Normal, TMs Normal Neck: Full Range of Motion, Non-Tender, Normal, Normal Inspection Respiratory: Chest Non-Tender, Lungs Clear, No Accessory Muscle Use, No Respiratory Distress, Normal Breath Sounds Cardiovascular: No Edema, No JVD, No Murmur, No Gallop, Normal Peripheral Pulses, Regular Rate/Rhythm Breast Exam: Deferred Gastrointestinal: No Organomegaly, Non Tender, No Pulsatile Mass, Normal Bowel Sounds, Soft Genitalia: Deferred Pelvic: Deferred Rectal: Deferred Extremities: No calf tenderness, Normal capillary refill, Normal inspection, Normal range of motion, Non-tender, No pedal edema Musculoskeletal : Apperance: Normal Neurologic: Alert, neurosurgery research director II-XII nml as Tested, No Motor Deficits, Normal Affect, Normal Mood, No Sensory Deficits Cerebellar Function: NOT DONE Reflexes: NOT DONE Skin: Dry, Normal Color, Warm Peripheral Pulses: 3+ Radial (R), 3+ Radial (L) Lymphatic: No Adenopathy Was a procedure done? Was a procedure done?: No EKG EKG : Pulse Rate (adult): 80 Harrah: Normal Cardiac Rhythm: NSR Block: None Hypertrophy: None ST: Normal Differential Dx Considerations may include: Anemia Electrolyte imbalance X-Ray, Labs, Meds, VS Vital Signs Date Time Temp Pulse Resp B/P (MAP) Pulse Ox O2 Delivery O2 Flow Rate FiO2 02/10/25 10:00 73 02/10/25 09:17 80 02/10/25 09:12 98.4 69 20 181/77 96 98.4 02/10/25 09:06 80 Lab Test 02/10/25 11:00 02/10/25 09:52 Range/Units Troponin I High Sensitivity Pending 82 *H </=54 ng/L White Blood Count 5.2 4.4-10.8 10^3/uL Red Blood Count 3.64 L 4.5-5.90 10^6/uL Hemoglobin 9.4 L 13.5-17.5 g/dL Hematocrit 29.9 L 41.0-53.0 % Mean Corpuscular Volume 82.3 80.0-100.0 fL Mean Corpuscular Hemoglobin 25.8 L 28.0-32.0 pg Mean Corpuscular Hemoglobin Concent 31.4 L 32.0-36.0 g/dL Red Cell Distribution Width 19.2 H 11.8-14.3 % Platelet Count 251 140-450 10^3/uL Mean Platelet Volume 9.1 6.9-10.8 fL Neutrophils (%) (Auto) 62.8 37.0-80.0 % Lymphocytes (%) (Auto) 25.1 10.0-50.0 % Monocytes (%) (Auto) 8.4 0.0-12.0 % Eosinophils (%) (Auto) 3.0 0.0-7.0 % Basophils (%) (Auto) 0.7 0.0-2.0 % Neutrophils # (Auto) 3.2 1.6-8.6 10 ^3/uL Lymphocytes # (Auto) 1.3 0.4-5.4 10 ^3/uL Monocytes # (Auto) 0.4 0-1.3 10 ^3/uL Eosinophils # (Auto) 0.2 0-0.8 10 ^3/uL Basophils # (Auto) 0 0-0.2 10 ^3/uL Nucleated Red Blood Cells 0.0 % Sodium Level 145 136-145 mmol/L Potassium Level 4.0 3.5-5.1 mmol/L Chloride Level 107 98-107 mmol/L Carbon Dioxide Level 28 20-31 mmol/L Anion Gap 10 5-15 Blood Urea Nitrogen 10 9-23 mg/dL Creatinine 1.06 0.700-1.30 mg/dL Glomerular Filtration Rate Calc 75 >90 mL/min BUN/Creatinine Ratio 9.4 L 10.0-20.0 Serum Glucose 82 74-106 mg/dL Calcium Level 9.1 8.7-10.4 mg/dL Current Medications Medications (Trade) Dose Ordered Sig/Yvette Route Start Time Stop Time Status Last Admin Aspirin 325 mg ONCE ONCE PO 02/10/25 09:15 02/10/25 09:16 DC 02/10/25 10:19 Patient alert. Came in because of chest pain. Vitals stable. Answering questions. EKG reviewed does not show any acute changes. Was given aspirin. Reviewed his previous visit. Explained to the patient. Continue to monitor. Time of 1ST Reevaluation: 09:40 Reevaluation 1ST: Unchanged Patient Education/Counseling: Diagnosis, Treatment, Prognosis Family Education/Counseling: No Family Present SEPSIS Sepsis Screen Physician Orders Electrocardigram (02/10/25 09:08) Electrocardigram (02/10/25 10:08) Electrocardigram (02/10/25 12:08) Troponin-I Hs (02/10/25 10:08) Troponin-I Hs (02/10/25 12:08) Urinalysis (02/10/25 09:08) Chest Xray 1 View (02/10/25 09:08) Vital Signs Date Time Temp Pulse Resp B/P (MAP) Pulse Ox O2 Delivery O2 Flow Rate FiO2 02/10/25 10:00 73 02/10/25 09:17 80 02/10/25 09:12 98.4 69 20 181/77 96 98.4 02/10/25 09:06 80 Laboratory Tests Test 02/10/25 09:52 White Blood Count 5.2 10^3/uL (4.4-10.8) Medications Medications Dose Ordered Sig/Yvette Route Start Time Stop Time Status Last Admin Dose Admin Aspirin 325 mg ONCE ONCE PO 02/10/25 09:15 02/10/25 09:16 DC 02/10/25 10:19 Departure 1 Departure Time of Disposition: 11:43 Impression: Primary Impression: Chest pain of unknown etiology Additional Impression: Demand ischemia Disposition: ADMITTED INPATIENT Admit to: Med Surg Condition: Guarded Critical Care Note Critical Care Time?: Yes (90 min-critical care time only) Stability Stability form required: No Heart Score Heart Score: Heart Score Response (Comments) Value History Slightly Suspicious 0 EKG Normal 0 Age >65 2 Risk Factors >3 or Hx ASHD 2 Troponin 1-2 x's Normal limit 1 Total 5 I personally scribed for ROSELYN CHANG MD ([email or web address]) on 02/10/25 at 09:16. Electronically submitted by Lex Cristobal ([email or web address]). I personally scribed for ROSELYN CHANG MD ([email or web address]) on 02/10/25 at 09:17. Electronically submitted by Lex Cristobal ([email or web address]). ROSELYN HCANG MD Feb 10, 2025 09:16
[2025-02-10 10:09] LABS: Hematocrit 29.9 % (41.0-53.0); Hemoglobin 9.4 g/dL (13.5-17.5); Mean Corpuscular Hemoglobin 25.8 pg (28.0-32.0); Mean Corpuscular Volume 82.3 fL (80.0-100.0); Nucleated Red Blood Cells % 0.0 %
[2025-02-10 10:17] LABS: Anion Gap 10 (5-15); Carbon Dioxide 28 mmol/L (20-31); Potassium 4.0 mmol/L (3.5-5.1)
[2025-02-10 10:18] LABS: Calcium 9.1 mg/dL (8.7-10.4); Chloride 107 mmol/L (98-107); Sodium 145 mmol/L (136-145)
[2025-02-10 10:23] LABS: BUN/Creatinine Ratio 9.4 (10.0-20.0); Blood Urea Nitrogen 10 mg/dL (9-23); Glucose 82 mg/dL (74-106)
[2025-02-10 12:15] VITALS: PULSE 73; RESP 22; O2SAT 95
--- NOTE | 2025-02-10 12:37 | DVH ---
CHEST RADIOGRAPH INDICATION: CHEST PAIN TECHNIQUE: Single frontal view of the chest was obtained COMPARISON: XY CHEST XRAY 1 VIEW on DOS: 02/01/25, XY CHEST XRAY 1 VIEW on DOS: 01/24/25, CT CHEST WITHOUT CONTRAST on DOS: 01/22/25, XY CHEST XRAY 1 VIEW on DOS: 01/18/25, XY CHEST PORTABLE on DOS: 01/17/25 FINDINGS: Lines and Tubes: None Lungs: Mild pulmonary vascular redistribution. Pleura: Stable bilateral pleural effusions. No pneumothorax. Cardiomediastinal contours: Stable mild cardiomegaly. Bones: Unremarkable IMPRESSION: 1. Stable mild cardiomegaly, pulmonary vascular congestion and bilateral pleural effusions.
--- NOTE | 2025-02-10 15:57 | ECG ---
[facility] Test Date: 2025-02-10 Test Time: 10:00:51 Pat Name: NAVID SANCHEZ Department: [facility] ED Patient ID: [id number] Room: Gender: M Residence Counselor: FRANCISCO JAVIER : 1955 Requested By: ROSELYN CHANG Order Number: [id number] Reading MD: Som Vásquez Measurements Intervals Lee Rate: 73 P: 63 WI: 147 QRS: -51 QRSD: 102 T: 66 QT: 444 QTc: 490 Interpretive Statements Sinus rhythm Multiple premature complexes, vent & supraven Left anterior fascicular block Abnormal R-wave progression, late transition Borderline prolonged QT interval Electronically Signed On 02-13-2025 10:29:54 PST by Som Vásquez Please click the below link to view image of tracing.
--- NOTE | 2025-02-10 16:26 | ECG ---
[facility] Test Date: 2025-02-10 Test Time: 09:06:48 Pat Name: NAVID SANCHEZ Department: [facility] ED Patient ID: [id number] Room: Gender: M Furnace Attendant: FRANCISCO JAVIER : 1955 Requested By: ROSELYN CHANG Order Number: [id number] Reading MD: Som Vásquez Measurements Intervals C[place]le Rate: 80 P: 44 PA: 152 QRS: -54 QRSD: 102 T: 0 QT: 411 QTc: 475 Interpretive Statements Sinus rhythm Multiple premature complexes, vent & supraven Left anterior fascicular block Abnormal R-wave progression, late transition Borderline T wave abnormalities Electronically Signed On 02-13-2025 10:29:52 PST by Som Vásquez Please click the below link to view image of tracing.
[2025-02-10 19:46] VITALS: BP 146/69; PULSE 88; RESP 13; TEMP 98.4; O2SAT 97
== END 2025-02-10 20:25 | disposition home or self-care (01) ==
LOC: EDBD 09:00 → ER 09:00
DX: G45.9 Transient cerebral ischemic attack, unspecified (principal); R07.89 Other chest pain; E11.9 Type 2 diabetes mellitus without complications; I11.0 Hypertensive heart disease with heart failure; I50.9 Heart failure, unspecified; I25.10 Atherosclerotic heart disease of native coronary artery without angina pectoris; I25.2 Old myocardial infarction; Z90.49 Acquired absence of other specified parts of digestive tract; Z79.899 Other long term (current) drug therapy; Z90.89 Acquired absence of other organs
CPT/HCPCS: 36415; 71045; 80048; 84484; 85025; 93005; 99291; 99292